=== PATIENT | female | born 1955 | race Caucasian/White ===

== ENCOUNTER 2016-04-22 17:35 | Observation (INO) | payer MEDICARE ==
--- NOTE | 2016-04-22 18:04 | ERPHSYRPT ---
- History of Present Illness Source: patient Physician History: Patient with long-standing history of severe COPD on chronic 3 L nasal cannula with increasing cough congestion and wheezing intermittent fever chills and thick productive sputum. Taking nebulizers at home without significant improvement.To The ER at this time for further evaluation and treatment.patient with 4 hospitalizations in the last 4 mo. for similar signs and symptoms Timing/Duration: today, worse Severity of Dyspnea-Max: severe Severity of Dyspnea-Current: severe Possible Cause: frequent episodes Modifying Factors: Improves With: albuterol nebulizer, coughing, deep breath, exertion, oxygen, rest Associated Symptoms: cough, chest pain/discomfort, fever, wheezing, weakness, painful breathing, productive cough Allergies/Adverse Reactions: bupropion HCl [From Wellbutrin] Allergy (Verified 04/22/16 17:56) Coconut Allergy (Verified 04/22/16 17:56) morphine Allergy (Verified 04/22/16 17:56) Penicillins Allergy (Verified 04/22/16 17:56) Home Medications: Albuterol/Ipratropium Mdi [Combivent Inhaler] 1 puff IH QID 12/29/12 [ History] Clonazepam 0.5 mg [Klonopin 0.5 MG] 2 mg PO BID 12/29/12 [History] Famotidine 20 mg [Pepcid 20 MG] 40 mg PO BID 12/29/12 [History] Fluticasone/Salmeterol Disc [Advair 250-50 Diskus 14 Dose] 1 puff IH BID 12/29/12 [History] Sertraline HCl 100 mg [Zoloft 100 MG] 200 mg PO QAM 12/17/13 [History] Clonazepam 0.5 mg [Klonopin 0.5 MG] 1 mg PO HS 09/16/14 [History] Isosorbide Mononitrate 30 mg [Imdur 30 MG] 30 mg PO DAILY 11/05/14 [History ] Cholecalciferol (Vitamin D3) [Vitamin D3] 50,000 units PO WEEKLY 01/16/15 [ History] Ezetimibe 10 mg [Zetia 10 MG] 10 mg PO DAILY 11/18/15 [History] Gabapentin 600 mg PO BID 01/16/15 [History] Tizanidine HCl 4 mg [Zanaflex 4 MG] 4 mg PO TID 01/16/15 [History] Oxycodone HCl/Acetaminophen [Percocet 10-325 mg Tablet] 10 - 325 each PO Q6HPRN PRN 07/16/15 [History] Budesonide 0.5 mg/2 ml [Pulmicort 0.5 mg/2 ml Respules] 0.5 mg IH BID [History] Levothyroxine Sodium 25 Mcg [Synthroid 25 Mcg] 25 mcg PO DAILY 10/17/15 [ History] Mometasone Furoate [Nasonex] 2 inh NS DAILY 10/17/15 [History] Quetiapine Fumarate [Seroquel] 100 mg PO BID 10/17/15 [History] Vits W-Ca,Fe,FA(<1Mg) [] 1 each PO DAILY 10/18/15 [History] Nitroglycerin 0.4 mg Tablet [Nitrostat 0.4 MG Tablet] 0.4 mg SL UD PRN [History] Gabapentin 2,400 mg PO HS 02/21/16 [History] Guaifenesin/Codeine Phos [Cheratussin AC Syrup] 10 ml PO Q6H PRN PRN 02/21/16 [ History] Prednisone 20 mg [Deltasone 20 mg] 20 mg PO DAILY 04/22/16 [History] Hx Tetanus, Diphtheria Vaccination/Date Given: No Hx Influenza Vaccination/Date Given: No Hx Pneumococcal Vaccination/Date Given: No - Review of Systems Constitutional: Fever, Chills, Fatigue, Lethargy, Malaise Eyes: No Symptoms Ears, Nose, & Throat: Nose Congestion Respiratory: Cough, Dyspnea, Dyspnea on Exertion (SCOTT), Wheezing Cardiac: Chest Pain (with deep breathing and coughing onl) Abdominal/Gastrointestinal: No Symptoms Genitourinary Symptoms: No Symptoms Musculoskeletal: No Symptoms Skin: No Symptoms Neurological: No Symptoms Psychological: Anxiety Endocrine: No Symptoms Hematologic/Lymphatic: No Symptoms Immunological/Allergic: No Symptoms All Other Systems: Reviewed and Negative - Past Medical History Pertinent Past Medical History: Yes Neurological History: Migraines ENT History: No Pertinent History Cardiac History: Congestive Heart Failure, High Cholesterol Respiratory History: COPD, Pneumonia Endocrine Medical History: Hypothyroidism Musculoskeletal History: Arthritis GI Medical History: GERD, Hernia, Polyps History: No Pertinent History Psycho-Social History: Anxiety, Depression Female Reproductive Disorders: Fibroids Other Medical History: 2 LEAKY VALVES. BORDERLINE PERSONALITY DISORDER, PTSD, manic depressive. bone deficiency - Past Surgical History Past Surgical History: Yes Neuro Surgical History: No Pertinent History Cardiac: No Pertinent History Respiratory: No Pertinent History Gastrointestinal: No Pertinent History Genitourinary: No Pertinent History Musculoskeletal: Other Female Surgical History: Section Other Surgical History: ARM SURGERY, 2 c-sections, EGD, Colonoscopy - Social History Smoking Status: Current every day smoker How long have you smoked: 43+years Exposure to second hand smoke: Yes Alcohol Use: Socially Drug Use: none Patient Lives Alone: No Significant Family History: no pertinent family hx - Female History Hx Now: No - Nursing Vital Signs Nursing Vital Signs: Initial Vital Signs Temperature 98.7 F Temperature Source Oral Pulse Rate 92 Respiratory Rate 18 Blood Pressure [Right Arm] 142/72 Pain Intensity 8 - Physical Exam General Appearance: moderate distress, alert, anxiety, obese Eye Exam: PERRL/EOMI Ears, Nose, Throat Exam: normal ENT inspection (nasal cannula in place) Neck Exam: normal inspection, non-tender, supple Respiratory Exam: respiratory distress, diminished breath sounds, accessory muscle use, prolonged expirations, crackles/rales, rhonchi, wheezing Cardiovascular/Chest Exam: normal heart sounds, regular rate/rhythm, normal peripheral pulses, No murmur Abdominal/Gastrointestinal Exam: soft, normal bowel sounds, No tenderness, No distention, No mass, No guarding, No rebound Rectal Exam: deferred Extremity Exam: non-tender, normal range of motion, no calf tenderness, no pedal edema, limited range of motion, No jennifer's sign Peripheral Pulses Exam: carotid (R): 2+, carotid (L): 2+ Neurologic Exam: alert, oriented x 3, cooperative Skin Exam: normal color, warm, dry, No rash Lymphatic Exam: No adenopathy SpO2 Interpretation: normal - Course Nursing assessment & vital signs reviewed: Yes EKG Interpreted by Me: RATE (104), Sinus Tach, NORMAL AXIS, NORMAL INTERVALS, NORMAL QRS, Non-specific ST Changes, Other (no significant changes to previous EKGs) - Radiology Exams Chest X-ray Interpretation: Interpreted by me, No Infiltrates, Other (COPD) Ordered Tests: Active Orders 24 hr Category Date Time Status Up With Assistance ROUTINE Activity 04/22/16 21:33 Active Admission/Status Order ROUTINE Care 04/22/16 21:33 Active Food Equipment Service Technician STAT Care 04/22/16 18:05 Active Code Status Order ROUTINE Care 04/22/16 21:33 Active EKG-ER Only STAT Care 04/22/16 17:53 Completed IV Care Q6H Care 04/22/16 21:33 Active IV Insertion STAT Care 04/22/16 17:53 Active Miscellaneous Nursing Order ROUTINE Care 04/22/16 21:33 Active Oxygen-ED Only NASAL CANNULA 3 lpm Care 04/22/16 18:15 Active Oxygen-ED Only VENTI-MASK 50% Care 04/22/16 18:05 Inactive Pulse Oximetry (ED) STAT Care 04/22/16 18:05 Active Rashaun Solorio, Apply ROUTINE Care 04/22/16 21:33 Active Telemetry Q4H Care 04/22/16 21:33 Active Weight,Daily 0600 Care 04/22/16 21:33 Active Cardiac Diet Diet 04/22/16 Dinner Active CHEST 1 VIEW (PORTABLE) Stat Exams 04/22/16 17:54 Completed ARTERIAL BLOOD GASES Urgent Lab 04/22/16 18:05 Completed BLOOD CULTURE Stat Lab 04/22/16 18:24 Ordered CBC AM.LAB Lab 04/23/16 05:08 Completed CBC W DIFF Stat Lab 04/22/16 18:00 Completed CMP AM.LAB Lab 04/23/16 05:08 Completed CMP Stat Lab 04/22/16 18:00 Completed Lactic Acid Urgent Lab 04/22/16 18:05 Completed MAGNESIUM AM.LAB Lab 04/23/16 05:08 Completed NT PRO BNP Stat Lab 04/22/16 18:00 Completed PROTIME WITH INR Stat Lab 04/22/16 18:00 Completed PTT Stat Lab 04/22/16 18:00 Completed TROPONIN Stat Lab 04/22/16 18:00 Completed Oxygen NASAL CANNULA 3 lpm RT 04/22/16 21:33 Active Respiratory Nebulizer Q4H RT 04/22/16 21:33 Active Respiratory Nebulizer STAT RT 04/22/16 18:06 Completed Respiratory Therapy Consult ROUTINE RT 04/22/16 21:33 Completed Transfer Order Routine Transfer 04/22/16 19:55 Completed Medication Summary Generic Name Dose Route Start Last Admin Trade Name Yordan PRN Reason Stop Dose Admin Albuterol/Ipratropium 3 ml 04/22/16 23:00 04/23/16 14:08 Duoneb 0.5-3 Mg/3 Ml Neb IH 05/22/16 22:59 3 ml Q4HRT VALERY Administration Budesonide 0.5 mg 04/23/16 07:00 04/23/16 07:02 Pulmicort 0.5 Mg/2 Ml Respules IH 05/23/16 06:59 0.5 mg BIDRT VALERY Administration Calcium Carbonate/Glycine 750 mg 04/23/16 14:16 Tums Ex 750 Mg PO 05/23/16 14:15 Q2HPRN PRN heart burn Clonazepam 2 mg 04/23/16 15:00 04/23/16 14:13 Klonopin PO 05/23/16 14:59 1 mg 0800,1500 VALERY Administration Clonazepam 1 mg 04/23/16 22:00 Klonopin 0.5 Mg PO 05/23/16 21:59 HS VALERY Doxycycline Hyclate 100 mg 04/22/16 22:00 04/23/16 08:36 Vibramycin 100 Mg PO 05/22/16 21:59 100 mg BID VALERY Administration Ezetimibe 10 mg 04/23/16 10:00 04/23/16 08:36 Zetia 10 Mg PO 05/23/16 09:59 10 mg DAILY VALERY Administration Ergocalciferol 50,000 unit 04/29/16 10:00 Vitamin D2 PO 05/29/16 09:59 We VALERY Famotidine 40 mg 04/22/16 23:35 04/23/16 08:36 Pepcid 20 Mg PO 05/22/16 23:34 40 mg BID VALERY Administration Fluticasone Propionate 0 gm 04/23/16 10:00 04/23/16 08:37 Flonase Nasal NS 05/23/16 09:59 16 gm DAILY VALERY Administration Gabapentin 2,400 mg 04/22/16 23:35 04/23/16 00:08 Neurontin 400 Mg PO 05/22/16 23:34 2,400 mg HS VALERY Administration Gabapentin 600 mg 04/23/16 08:00 04/23/16 14:13 Neurontin 300 Mg PO 05/23/16 07:59 600 mg 0800,1500 VALERY Administration Guaifenesin/Codeine Phosphate 10 ml 04/22/16 23:39 04/23/16 08:46 Robitussin Ac Syrup Unit Dose Cup PO 05/22/16 23:38 10 ml Q6HPRN PRN Administration COUGH Sodium Chloride 1,000 mls @ 50 mls/hr 04/22/16 18:15 04/22/16 18:11 Sodium Chloride 0.9% 1000 Ml IV 05/22/16 18:14 50 mls/hr .Q20H VALERY Administration Levofloxacin/Dextrose 100 mls @ 100 mls/hr 04/23/16 10:00 04/23/16 10:08 Levofloxacin 500mg/100ml D5w IV 05/23/16 09:59 100 mls/hr Q24H10 VALERY Administration Isosorbide Mononitrate 30 mg 04/23/16 10:00 04/23/16 08:36 Imdur 30 Mg PO 05/23/16 09:59 30 mg DAILY VALERY Administration Levothyroxine Sodium 25 mcg 04/23/16 10:00 04/23/16 08:36 Synthroid 25 Mcg PO 05/23/16 09:59 25 mcg DAILY VALERY Administration Methylprednisolone Sodium Succinate 60 mg 04/23/16 18:00 Solu-Medrol 125 Mg IV 05/23/16 17:59 Q12H VALERY Multivitamins 1 tab 04/23/16 10:00 04/23/16 08:37 Theragran Multivitamin PO 05/23/16 09:59 1 tab DAILY VALERY Administration Nitroglycerin 0.4 mg 04/23/16 07:50 Nitrostat 0.4 Mg Tablet SL 05/23/16 07:49 UD PRN CHEST PAIN Oxycodone/Acetaminophen 1 tab 04/22/16 23:35 04/23/16 10:18 Oxycodone-Acetaminophen 10-325 PO 04/27/16 23:34 1 tab Q6HPRN PRN Administration PAIN Quetiapine Fumarate 100 mg 04/22/16 23:35 04/23/16 08:36 Seroquel 100 Mg PO 05/22/16 23:34 100 mg BID VALERY Administration Fluticasone/Salmeterol 2 puff 04/23/16 07:00 04/23/16 07:02 Advair Hfa 115/21 Common Canister* IH 05/23/16 06:59 2 puff BIDRT VALERY Administration Sertraline HCl 200 mg 04/23/16 10:00 04/23/16 08:36 Zoloft 50 Mg Tablet PO 05/23/16 09:59 200 mg QAM VALERY Administration Tizanidine HCl 4 mg 04/22/16 23:40 04/23/16 14:13 Zanaflex 4 Mg PO 05/22/16 23:39 4 mg TID VALERY Administration Discontinued Medications Generic Name Dose Route Start Last Admin Trade Name Freq PRN Reason Stop Dose Admin Albuterol/Ipratropium 3 ml 04/22/16 18:05 04/22/16 18:55 Duoneb 0.5-3 Mg/3 Ml Neb IH 04/22/16 18:06 3 ml STAT ONE Administration Albuterol/Ipratropium Confirm 04/22/16 18:45 Duoneb 0.5-3 Mg/3 Ml Neb Administered 04/22/16 18:46 Dose 3 ml IH .STK-MED ONE Budesonide Confirm 04/23/16 06:36 Pulmicort 0.5 Mg/2 Ml Respules Administered 04/23/16 06:37 Dose 0.5 mg IH .STK-MED ONE Clonazepam 1 mg 04/22/16 23:30 04/23/16 00:14 Klonopin 0.5 Mg PO 05/22/16 23:29 Not Given HS VALERY Clonazepam Confirm 04/22/16 23:45 Klonopin 0.5 Mg Administered 04/22/16 23:46 Dose 1 mg .ROUTE .STK-MED ONE Clonazepam 2 mg 04/23/16 08:00 04/23/16 08:36 Klonopin PO 05/23/16 07:59 2 mg BIDWM VALERY Administration Clonazepam 1 mg 04/23/16 12:00 04/23/16 12:47 Klonopin 0.5 Mg PO 04/23/16 15:00 1 mg NOON VALERY Administration Hydrocortisone Sodium Succinate 80 mg 04/23/16 10:00 Solu-Cortef 100mg IV 05/23/16 09:59 Q12H VALERY Sodium Chloride Confirm 04/22/16 18:09 Sodium Chloride 0.9% 1000 Ml Administered 04/22/16 18:10 Dose 1,000 mls @ ud .ROUTE .STK-MED ONE Methylprednisolone Sodium Succinate 125 mg 04/22/16 18:05 04/22/16 18:11 Solu-Medrol 125 Mg IV 04/22/16 18:06 125 mg STAT ONE Administration Methylprednisolone Sodium Succinate Confirm 04/22/16 18:09 Solu-Medrol 125 Mg Administered 04/22/16 18:10 Dose 125 mg .ROUTE .STK-MED ONE Methylprednisolone Sodium Succinate 80 mg 04/23/16 00:00 04/23/16 06:49 Solu-Medrol 125 Mg IV 05/23/16 00:00 80 mg Q6HT VALERY Administration Prednisone 20 mg 04/23/16 10:00 04/23/16 08:36 Deltasone 20 Mg PO 05/23/16 09:59 20 mg DAILY VALERY Administration Lab/Rad Data: Laboratory Result Diagrams 04/22/16 18:00 04/22/16 18:00 Laboratory Results 04/22/16 04/22/16 04/22/16 Range/Units 18:58 18:24 18:05 WBC (4.0-10.5) K/mm3 RBC (4.1-5.4) M/mm3 Hgb (12.0-16.0) gm/dl Hct (35-47) % MCV (78-100) fl MCH (26-32) pg MCHC (32-36) g/dl RDW (11.5-14.0) % Plt Count (150-450) K/mm3 MPV (6-9.5) fl Gran % (36.0-66.0) % Lymphocytes % (24.0-44.0) % Monocytes % (0.0-12.0) % Eosinophils % (0.00-5.0) % Basophils % (0.0-0.4) % Basophils # (0-0.4) INR (0.8-3.0) PTT (25.3-37.0) SECONDS Puncture Site RIGHT BRACHIAL pCO2 41 (35-45) mmHg pO2 84 (75-100) mmHg Base Excess 4.9 H (-2.0-2.0) O2 Saturation 92.2 L (94-100) g/dF ABG pH 7.46 H (7.35-7.45) ABG HCO3 29.2 H* (22-28) ABG O2 Sat (Measured) 95.7 (95-100) % Get Test NO VBG pH Cancelled VBG pCO2 at Pat Temp Cancelled VBG pO2 at Pat Temp Cancelled VBG HCO3 Cancelled VBG O2 Sat (Paulo) Cancelled VBG Base Excess Cancelled VBG Hemoglobin Cancelled VBG Carboxyhemoglobin Cancelled A-a Gradient 93 a/A Ratio 0.47 Hemoglobin 8.8 Carboxyhemoglobin 3.4 (0.0-6.9) % THgb Methemoglobin 0.3 L (1.4-1.5) % POC Potassium Cancelled Temperature 37.0 C POC O2 Flow Rate 32 % Sodium (136-145) mEq/L Potassium 4.2 (3.5-5.1) mEq/L Chloride (98-107) mEq/L Carbon Dioxide (21-32) mEq/L Anion Gap (5-15) MEQ/L BUN (9-20) mg/dL Creatinine (0.55-1.30) mg/dl Estimated GFR ML/MIN Glucose (70-110) MG/DL Lactic Acid 1.0 (0.4-2.0) Calcium (8.5-10.1) mg/dL Total Bilirubin (0.2-1.0) mg/dL AST (15-37) U/L ALT (12-78) U/L Alkaline Phosphatase (46-116) U/L Troponin I (0.000-0.056) ng/ml NT-Pro-B Natriuret Pep (0-125) pg/ml Serum Total Protein (6.4-8.2) gm/dL Albumin (3.4-5.0) g/dL Influenza Type A Ag NEGATIVE (NEGATIVE) Influenza Type B Ag NEGATIVE (NEGATIVE) RSV (PCR) NEGATIVE (Negative) 04/22/16 04/22/16 04/22/16 Range/Units 18:00 18:00 18:00 WBC 9.9 (4.0-10.5) K/mm3 RBC 3.58 L (4.1-5.4) M/mm3 Hgb 9.0 L (12.0-16.0) gm/dl Hct 30.6 L (35-47) % MCV 85.5 (78-100) fl MCH 25.1 L (26-32) pg MCHC 29.4 L (32-36) g/dl RDW 17.2 H (11.5-14.0) % Plt Count 539 H (150-450) K/mm3 MPV 9.7 H (6-9.5) fl Gran % 83.2 H (36.0-66.0) % Lymphocytes % 13.0 L (24.0-44.0) % Monocytes % 3.4 (0.0-12.0) % Eosinophils % 0.2 (0.00-5.0) % Basophils % 0.2 (0.0-0.4) % Basophils # 0.02 (0-0.4) INR 0.94 (0.8-3.0) PTT 30.1 (25.3-37.0) SECONDS Puncture Site pCO2 (35-45) mmHg pO2 (75-100) mmHg Base Excess (-2.0-2.0) O2 Saturation (94-100) g/dF ABG pH (7.35-7.45) ABG HCO3 (22-28) ABG O2 Sat (Measured) (95-100) % Get Test VBG pH VBG pCO2 at Pat Temp VBG pO2 at Pat Temp VBG HCO3 VBG O2 Sat (Paulo) VBG Base Excess VBG Hemoglobin VBG Carboxyhemoglobin A-a Gradient a/A Ratio Hemoglobin Carboxyhemoglobin (0.0-6.9) % THgb Methemoglobin (1.4-1.5) % POC Potassium Temperature C POC O2 Flow Rate % Sodium 142 (136-145) mEq/L Potassium 3.9 (3.5-5.1) mEq/L Chloride 107 (98-107) mEq/L Carbon Dioxide 28.7 (21-32) mEq/L Anion Gap 10.3 (5-15) MEQ/L BUN 10 (9-20) mg/dL Creatinine 0.94 (0.55-1.30) mg/dl Estimated GFR > 60 ML/MIN Glucose 128 H (70-110) MG/DL Lactic Acid (0.4-2.0) Calcium 8.6 (8.5-10.1) mg/dL Total Bilirubin < 0.1 L (0.2-1.0) mg/dL AST 9 L (15-37) U/L ALT 16 (12-78) U/L Alkaline Phosphatase 64 (46-116) U/L Troponin I < 0.017 (0.000-0.056) ng/ml NT-Pro-B Natriuret Pep 113 (0-125) pg/ml Serum Total Protein 6.9 (6.4-8.2) gm/dL Albumin 3.3 L (3.4-5.0) g/dL Influenza Type A Ag (NEGATIVE) Influenza Type B Ag (NEGATIVE) RSV (PCR) (Negative) - Progress Progress: improved, re-examined Air Movement: poor Progress Note: 04/22/16 19:51Patient only mildly improved after intravenous steroids nebulizer treatment. Chest x-ray with no new acute pulmonary disease shows chronic COPD and air trapping. Venous blood gases were noncontributory and remainder of the lab showed no significant abnormalities. Because of the patient's ongoing severe shortness of breath case was discussed with Dr. Mar and he accepted patient for full admission for exacerbation COPD. This is in agreement to the patient. Blood Culture(s) Obtained: Yes Antibiotics given: No Discussed with Dr.: Garrison Counseled pt/family regarding: lab results, diagnosis, rad results - Departure Time of Disposition: 19:53 Departure Disposition: Observation Clinical Impression: Chronic bronchitis with acute exacerbation Condition: Serious Critical Care Time: No
[2016-04-22] MEDS ORDERED: solu-MEDROL 125 MG IV ONE (18:05)
[2016-04-22] MEDS ORDERED: DUONEB 0.5-3 MG/3 ml Neb IH ONE ×2 (18:05→18:45)
[2016-04-22] MEDS ORDERED: solu-MEDROL 125 MG ONE (18:09)
[2016-04-22] MEDS ORDERED: Sodium Chloride 0.9% 1000 ML 1,000 ML ONE (18:09)
[2016-04-22] MEDS: Sodium Chloride 0.9% 1000 ML 1,000 ML IV SCH (18:11)
[2016-04-22 18:23] LABS: BASOPHIL % 0.2 % (0.0-0.4); Eosinophil % 0.2 % (0.00-5.0); Granulocytes % 83.2 % (36.0-66.0); Mean Cell Volume 85.5 fl (78-100); Mean Corpuscular Hemoglobin 25.1 pg (26-32); Mean Platelet Volume 9.7 fl (6-9.5); Monocytes % 3.4 % (0.0-12.0); Platelet Count 539 K/mm3 (150-450); Red Blood Count 3.58 M/mm3 (4.1-5.4); Red Cell Distribution Width 17.2 % (11.5-14.0); White Blood Count 9.9 K/mm3 (4.0-10.5)
[2016-04-22 18:33] LABS: INR 0.94 (0.8-3.0); PROTIME 10.5 SECONDS (9.95-12.35)
[2016-04-22 18:35] LABS: PTT 30.1 SECONDS (25.3-37.0)
[2016-04-22 18:51] LABS: ALBUMIN 3.3 g/dL (3.4-5.0); ALKALINE PHOSPHATASE 64 U/L (46-116); ANION GAP 10.3 MEQ/L (5-15); BLOOD UREA NITROGEN 10 mg/dL (9-20); CHLORIDE 107 mEq/L (98-107); Carbon Dioxide 28.7 mEq/L (21-32); Glucose 128 MG/DL (70-110); Potassium 3.9 mEq/L (3.5-5.1); SGOT/AST 9 U/L (15-37); SGPT/ALT 16 U/L (12-78); SODIUM 142 mEq/L (136-145); Total Protein 6.9 gm/dL (6.4-8.2)
[2016-04-22 18:53] LABS: BILIRUBIN,TOTAL < 0.1 mg/dL (0.2-1.0); TROPONIN < 0.017 ng/ml (0.000-0.056)
[2016-04-22 20:19] LABS: A-aADO2 93; ARTERIAL BLD GAS O2 SATURATION 95.7 % (95-100); ARTERIAL BLOOD GAS BASE EXCESS 4.9 (-2.0-2.0); ARTERIAL BLOOD GAS FIO2 32 %; ARTERIAL BLOOD GAS PO2 84 mmHg (75-100); ARTERIAL BLOOD GAS pH 7.46 (7.35-7.45)
[2016-04-22 20:20] LABS: ALLEN TEST OK? NO
[2016-04-22] MEDS: DUONEB 0.5-3 MG/3 ml Neb IH SCH (23:09)
[2016-04-22] MEDS ORDERED: Klonopin 0.5 MG PO SCH (23:30)
[2016-04-22] MEDS ORDERED: Klonopin 0.5 MG ONE (23:45)
[2016-04-23] MEDS: Vibramycin 100 MG PO SCH ×3 (00:08→22:27)
[2016-04-23] MEDS: Pepcid 20 MG PO SCH ×3 (00:08→22:27)
[2016-04-23] MEDS: Neurontin 400 MG PO SCH ×2 (00:08→22:26)
[2016-04-23] MEDS: Seroquel 100 MG PO SCH ×3 (00:17→22:27)
[2016-04-23] MEDS: Zanaflex 4 MG PO SCH ×4 (00:18→22:27)
[2016-04-23] MEDS: solu-MEDROL 125 MG IV SCH ×3 (00:56→17:31)
[2016-04-23] MEDS: DUONEB 0.5-3 MG/3 ml Neb IH SCH ×6 (03:43→23:06)
[2016-04-23 05:43] LABS: Mean Cell Volume 86.4 fl (78-100); Mean Corpuscular Hemoglobin 25.4 pg (26-32); Mean Platelet Volume 9.6 fl (6-9.5); Platelet Count 481 K/mm3 (150-450); Red Blood Count 3.46 M/mm3 (4.1-5.4); Red Cell Distribution Width 17.1 % (11.5-14.0)
[2016-04-23 06:12] LABS: ALBUMIN 3.2 g/dL (3.4-5.0); ALKALINE PHOSPHATASE 60 U/L (46-116); ANION GAP 12.4 MEQ/L (5-15); BLOOD UREA NITROGEN 10 mg/dL (9-20); CHLORIDE 107 mEq/L (98-107); Carbon Dioxide 29.3 mEq/L (21-32); Glucose 128 MG/DL (70-110); Potassium 4.5 mEq/L (3.5-5.1); SGOT/AST 8 U/L (15-37); SGPT/ALT 16 U/L (12-78); SODIUM 144 mEq/L (136-145); Total Protein 6.8 gm/dL (6.4-8.2)
[2016-04-23 06:22] LABS: MAGNESIUM 2.2 mg/dL (1.8-2.4)
[2016-04-23 06:29] LABS: BILIRUBIN,TOTAL < 0.1 mg/dL (0.2-1.0)
[2016-04-23] MEDS ORDERED: PULMICORT 0.5 MG/2 ML RESPULES IH ONE (06:36)
[2016-04-23] MEDS: PULMICORT 0.5 MG/2 ML RESPULES IH SCH ×2 (07:02→18:51)
[2016-04-23] MEDS: Advair Hfa 115/21 Common canister IH SCH ×2 (07:02→18:51)
[2016-04-23] MEDS ORDERED: Nitrostat 0.4 MG Tablet SL PRN (07:50)
--- NOTE | 2016-04-23 07:57 | PCM.HP ---
History of Present Illness - Chief Complaint Chief Complaint: Shortness of Breath for 4-5 days History of Present Illness: is a 60 year old female.Patient with long-standing history of severe COPD on chronic 3 L nasal cannula with increasing cough congestion and wheezing intermittent fever chills and thick productive sputum. Taking nebulizers at home without significant improvement.To The ER at this time for further evaluation and treatment.patient with 4 hospitalizations in the last 4 mo. for similar signs and symptoms - Review of Systems Constitutional: No Fever, No Chills Eyes: No Symptoms Ears, Nose, & Throat: No Symptoms Respiratory: Cough, Orthopnea, Short Of Breath, Wheezing Cardiac: No Chest Pain, No Edema, No Syncope Abdominal/Gastrointestinal: No Abdominal Pain, No Nausea, No Vomiting, No Diarrhea Genitourinary Symptoms: No Dysuria Musculoskeletal: No Back Pain, No Neck Pain Skin: No Rash Neurological: No Dizziness, No Focal Weakness, No Sensory Changes Psychological: No Symptoms Endocrine: No Symptoms Hematologic/Lymphatic: No Symptoms Immunological/Allergic: No Symptoms Medications & Allergies Home Medications: Home Medication List Albuterol/Ipratropium Mdi [Combivent Inhaler] 1 puff IH QID 12/29/12 [ History Confirmed 04/22/16] Clonazepam 0.5 mg [Klonopin 0.5 MG] 2 mg PO BID 12/29/12 [History Confirmed 04/22/16] Famotidine 20 mg [Pepcid 20 MG] 40 mg PO BID 12/29/12 [History Confirmed 04/22/16] Fluticasone/Salmeterol Disc [Advair 250-50 Diskus 14 Dose] 1 puff IH BID 12/29/12 [History Confirmed 04/22/16] Sertraline HCl 100 mg [Zoloft 100 MG] 200 mg PO QAM 12/17/13 [History Confirmed 04/22/16] Clonazepam 0.5 mg [Klonopin 0.5 MG] 1 mg PO HS 09/16/14 [History Confirmed 04/22/16] Isosorbide Mononitrate 30 mg [Imdur 30 MG] 30 mg PO DAILY 11/05/14 [ History Confirmed 04/22/16] Cholecalciferol (Vitamin D3) [Vitamin D3] 50,000 units PO WEEKLY 01/16/15 [ History Confirmed 04/22/16] Ezetimibe 10 mg [Zetia 10 MG] 10 mg PO DAILY 01/16/15 [History Confirmed ] Gabapentin 600 mg PO BID 01/16/15 [History Confirmed 04/22/16] Tizanidine HCl 4 mg [Zanaflex 4 MG] 4 mg PO TID 01/16/15 [History Confirmed 04/22/16] Oxycodone HCl/Acetaminophen [Percocet 10-325 mg Tablet] 10 - 325 each PO Q6HPRN PRN 07/16/15 [History Confirmed 04/22/16] Budesonide 0.5 mg/2 ml [Pulmicort 0.5 mg/2 ml Respules] 0.5 mg IH BID [History Confirmed 04/22/16] Levothyroxine Sodium 25 Mcg [Synthroid 25 Mcg] 25 mcg PO DAILY 10/17/15 [ History Confirmed 04/22/16] Mometasone Furoate [Nasonex] 2 inh NS DAILY 10/17/15 [History Confirmed 04/22/16 ] Quetiapine Fumarate [Seroquel] 100 mg PO BID 10/17/15 [History Confirmed ] Vits W-Ca,Fe,FA(<1Mg) [] 1 each PO DAILY 10/18/15 [History Confirmed 04/22/16] Nitroglycerin 0.4 mg Tablet [Nitrostat 0.4 MG Tablet] 0.4 mg SL UD PRN [History Confirmed 04/22/16] Gabapentin 2,400 mg PO HS 02/21/16 [History Confirmed 04/22/16] Guaifenesin/Codeine Phos [Cheratussin AC Syrup] 10 ml PO Q6H PRN PRN 02/21/16 [ History Confirmed 04/22/16] Prednisone 20 mg [Deltasone 20 mg] 20 mg PO DAILY 04/22/16 [History Confirmed 04/22/16] Allergies/Adverse Reactions: Allergies Allergy/AdvReac Type Severity Reaction Status Date / Time bupropion HCl Allergy Verified 04/22/16 17:56 [From Wellbutrin] Coconut Allergy Verified 04/22/16 17:56 morphine Allergy Verified 04/22/16 17:56 Penicillins Allergy Verified 04/22/16 17:56 - Past Medical History Past Medical History: Yes Neurological History: Migraines ENT History: No Pertinent History Cardiac History: Congestive Heart Failure, High Cholesterol Respiratory History: COPD, Pneumonia Endocrine Medical History: Hypothyroidism Musculoskelatal History: Arthritis GI Medical History: GERD, Hernia, Polyps History: No Pertinent History Pyscho-Social History: Anxiety, Depression Reproductive Disorders: Fibroids Comment: 2 LEAKY VALVES. BORDERLINE PERSONALITY DISORDER, PTSD, manic depressive. bone deficiency - Female History Are you now?: No - Past Surgical History Past Surgical History: Yes Neuro Surgical History: No Pertinent History Cardiac History: No Pertinent History Respiratory Surgery: No Pertinent History GI Surgical History: No Pertinent History Genitourinary Surgical Hx: No Pertinent History Musculskeletal Surgical Hx: Other Female Surgical History: Section Other Surgical History: ARM SURGERY, 2 c-sections, EGD, Colonoscopy - Social History Smoking Status: Current every day smoker How long have you smoked: 43+years Exposure to second hand smoke: Yes Alcohol: None Drug Use: none Significant Family History: no pertinent family hx - Physical Exam Vital Signs: Vital Signs - 24 hr Temp Pulse Resp BP Pulse Ox 04/23/16 07:06 84 22 98 04/23/16 04:00 97.8 F 77 24 157/77 99 04/23/16 03:43 77 24 99 04/22/16 23:58 98.6 F 87 18 109/63 97 04/22/16 23:09 87 18 97 04/22/16 21:19 99.1 F 94 H 22 159/77 94 L 04/22/16 19:20 92 H 18 142/72 95 04/22/16 18:55 90 24 99 04/22/16 18:13 99 04/22/16 17:46 98.7 F 104 H 30 H 138/74 99 Oxygen-Last 24 hours O2 Percentage 4 Liters = 36% O2 Percentage 4 Liters = 36% O2 Percentage 3 Liters = 32% O2 Percentage 3 Liters = 32% O2 Percentage 3 Liters = 32% O2 Percentage 3 Liters = 32% General Appearance: no apparent distress, alert Neurologic Exam: alert, oriented x 3, cooperative, normal mood/affect, nml cerebellar function, nml station & gait, sensation nml, No motor deficits Eye Exam: PERRL/EOMI, eyes nml inspection Ears, Nose, Throat Exam: normal ENT inspection, TMs normal, pharynx normal, moist mucous membranes Neck Exam: normal inspection, non-tender, supple, full range of motion Respiratory Exam: diminished breath sounds, crackles/rales, rhonchi, wheezing, No respiratory distress Cardiovascular Exam: regular rate/rhythm, normal heart sounds, normal peripheral pulses Gastrointestinal/Abdomen Exam: soft, normal bowel sounds, No tenderness, No mass Back Exam: normal inspection, normal range of motion, No CVA tenderness, No vertebral tenderness Extremity Exam: normal inspection, normal range of motion, pelvis stable Skin Exam: normal color, warm, dry, No rash Lymphatic Exam: No adenopathy Results - Labs Lab/Micro Results: Lab Results-Last 24 Hours 04/23/16 04/23/16 Range/Units 05:08 05:08 WBC 8.0 (4.0-10.5) K/mm3 RBC 3.46 L (4.1-5.4) M/mm3 Hgb 8.8 L (12.0-16.0) gm/dl Hct 29.9 L (35-47) % MCV 86.4 (78-100) fl MCH 25.4 L (26-32) pg MCHC 29.4 L (32-36) g/dl RDW 17.1 H (11.5-14.0) % Plt Count 481 H (150-450) K/mm3 MPV 9.6 H (6-9.5) fl Sodium 144 (136-145) mEq/L Potassium 4.5 (3.5-5.1) mEq/L Chloride 107 (98-107) mEq/L Carbon Dioxide 29.3 (21-32) mEq/L Anion Gap 12.4 (5-15) MEQ/L BUN 10 (9-20) mg/dL Creatinine 0.86 (0.55-1.30) mg/dl Estimated GFR > 60 ML/MIN Glucose 128 H (70-110) MG/DL Calcium 8.7 (8.5-10.1) mg/dL Magnesium 2.2 (1.8-2.4) mg/dL Total Bilirubin < 0.1 L (0.2-1.0) mg/dL AST 8 L (15-37) U/L ALT 16 (12-78) U/L Alkaline Phosphatase 60 (46-116) U/L Serum Total Protein 6.8 (6.4-8.2) gm/dL Albumin 3.2 L (3.4-5.0) g/dL - Other Procedures and Tests Respiratory Therapy 04/23/16 07:00 Respiratory MDI BID Respiratory Nebulizer BID Assessment/Plan (1) Chronic bronchitis with acute exacerbation Current Visit: Yes Status: Acute Assessment & Plan: Chief Complaint Diagnosis Shortness of Breath for 4-5 days Allergies Allergy/AdvReac Type Severity Reaction Status Date / Time bupropion HCl Allergy Verified 04/22/16 17:56 [From Wellbutrin] Coconut Allergy Verified 04/22/16 17:56 morphine Allergy Verified 04/22/16 17:56 Penicillins Allergy Verified 04/22/16 17:56 Vital Signs (Last 24 hours) Temp Pulse Resp BP Pulse Ox 04/23/16 16:00 98.9 F 95 H 24 122/66 99 04/23/16 14:56 99 H 16 97 04/23/16 11:01 98.6 F 102 H 20 120/58 98 04/23/16 10:33 102 H 20 98 04/23/16 08:00 97.7 F 87 20 142/78 99 04/23/16 07:06 84 22 98 04/23/16 04:00 97.8 F 77 24 157/77 99 04/23/16 03:43 77 24 99 04/22/16 23:58 98.6 F 87 18 109/63 97 04/22/16 23:09 87 18 97 04/22/16 21:19 99.1 F 94 H 22 159/77 94 L 04/22/16 19:20 92 H 18 142/72 95 04/22/16 18:55 90 24 99 04/22/16 18:13 99 04/22/16 17:46 98.7 F 104 H 30 H 138/74 99 Home Medications Medication Instructions Recorded Confirmed Last Taken Type Prednisone 20 mg [Deltasone 20 20 mg PO DAILY 04/22/16 04/22/16 04/22/16 08: 30 History mg] Current Medications Generic Name Dose Route Start Last Admin Trade Name Freq PRN Reason Stop Dose Admin Albuterol/Ipratropium 3 ml 04/22/16 23:00 04/23/16 14:08 Duoneb 0.5-3 Mg/3 Ml Neb IH 05/22/16 22:59 3 ml Q4HRT VALERY Administration Budesonide 0.5 mg 04/23/16 07:00 04/23/16 07:02 Pulmicort 0.5 Mg/2 Ml Respules IH 05/23/16 06:59 0.5 mg BIDRT VALERY Administration Calcium Carbonate/Glycine 750 mg 04/23/16 14:16 04/23/16 17:37 Tums Ex 750 Mg PO 05/23/16 14:15 750 mg Q2HPRN PRN Administration heart burn Clonazepam 2 mg 04/23/16 15:00 04/23/16 14:13 Klonopin PO 05/23/16 14:59 1 mg 0800,1500 VALERY Administration Clonazepam 1 mg 04/23/16 22:00 Klonopin 0.5 Mg PO 05/23/16 21:59 HS VALERY Doxycycline Hyclate 100 mg 04/22/16 22:00 04/23/16 08:36 Vibramycin 100 Mg PO 05/22/16 21:59 100 mg BID VALERY Administration Ezetimibe 10 mg 04/23/16 10:00 04/23/16 08:36 Zetia 10 Mg PO 05/23/16 09:59 10 mg DAILY VALERY Administration Ergocalciferol 50,000 unit 04/29/16 10:00 Vitamin D2 PO 05/29/16 09:59 We VALERY Famotidine 40 mg 04/22/16 23:35 04/23/16 08:36 Pepcid 20 Mg PO 05/22/16 23:34 40 mg BID VALERY Administration Fluticasone Propionate 0 gm 04/23/16 10:00 04/23/16 08:37 Flonase Nasal NS 05/23/16 09:59 16 gm DAILY VALERY Administration Gabapentin 2,400 mg 04/22/16 23:35 04/23/16 00:08 Neurontin 400 Mg PO 05/22/16 23:34 2,400 mg HS VALERY Administration Gabapentin 600 mg 04/23/16 08:00 04/23/16 14:13 Neurontin 300 Mg PO 05/23/16 07:59 600 mg 0800,1500 VALERY Administration Guaifenesin/Codeine Phosphate 10 ml 04/22/16 23:39 04/23/16 15:48 Robitussin Ac Syrup Unit Dose Cup PO 05/22/16 23:38 10 ml Q6HPRN PRN Administration COUGH Sodium Chloride 1,000 mls @ 50 mls/hr 04/22/16 18:15 04/23/16 17:34 Sodium Chloride 0.9% 1000 Ml IV 05/22/16 18:14 50 mls/hr .Q20H VALERY Administration Levofloxacin/Dextrose 100 mls @ 100 mls/hr 04/23/16 10:00 04/23/16 10:08 Levofloxacin 500mg/100ml D5w IV 05/23/16 09:59 100 mls/hr Q24H10 VALERY Administration Isosorbide Mononitrate 30 mg 04/23/16 10:00 04/23/16 08:36 Imdur 30 Mg PO 05/23/16 09:59 30 mg DAILY VALERY Administration Levothyroxine Sodium 25 mcg 04/23/16 10:00 04/23/16 08:36 Synthroid 25 Mcg PO 05/23/16 09:59 25 mcg DAILY VALERY Administration Methylprednisolone Sodium Succinate 60 mg 04/23/16 18:00 04/23/16 17:31 Solu-Medrol 125 Mg IV 05/23/16 17:59 60 mg Q12H VALERY Administration Multivitamins 1 tab 04/23/16 10:00 04/23/16 08:37 Theragran Multivitamin PO 05/23/16 09:59 1 tab DAILY VALERY Administration Nitroglycerin 0.4 mg 04/23/16 07:50 Nitrostat 0.4 Mg Tablet SL 05/23/16 07:49 UD PRN CHEST PAIN Oxycodone/Acetaminophen 1 tab 04/22/16 23:35 04/23/16 17:34 Oxycodone-Acetaminophen 10-325 PO 04/27/16 23:34 1 tab Q6HPRN PRN Administration PAIN Quetiapine Fumarate 100 mg 04/22/16 23:35 04/23/16 08:36 Seroquel 100 Mg PO 05/22/16 23:34 100 mg BID VALERY Administration Fluticasone/Salmeterol 2 puff 04/23/16 07:00 04/23/16 07:02 Advair Hfa 115/21 Common Canister* IH 05/23/16 06:59 2 puff BIDRT VALERY Administration Sertraline HCl 200 mg 04/23/16 10:00 04/23/16 08:36 Zoloft 50 Mg Tablet PO 05/23/16 09:59 200 mg QAM VALERY Administration Tizanidine HCl 4 mg 04/22/16 23:40 04/23/16 14:13 Zanaflex 4 Mg PO 05/22/16 23:39 4 mg TID VALERY Administration Discontinued Medications Generic Name Dose Route Start Last Admin Trade Name Freq PRN Reason Stop Dose Admin Albuterol/Ipratropium 3 ml 04/22/16 18:05 04/22/16 18:55 Duoneb 0.5-3 Mg/3 Ml Neb IH 04/22/16 18:06 3 ml STAT ONE Administration Albuterol/Ipratropium Confirm 04/22/16 18:45 Duoneb 0.5-3 Mg/3 Ml Neb Administered 04/22/16 18:46 Dose 3 ml IH .STK-MED ONE Budesonide Confirm 04/23/16 06:36 Pulmicort 0.5 Mg/2 Ml Respules Administered 04/23/16 06:37 Dose 0.5 mg IH .STK-MED ONE Clonazepam 1 mg 04/22/16 23:30 04/23/16 00:14 Klonopin 0.5 Mg PO 05/22/16 23:29 Not Given HS VALERY Clonazepam Confirm 04/22/16 23:45 Klonopin 0.5 Mg Administered 04/22/16 23:46 Dose 1 mg .ROUTE .STK-MED ONE Clonazepam 2 mg 04/23/16 08:00 04/23/16 08:36 Klonopin PO 05/23/16 07:59 2 mg BIDWM VALERY Administration Clonazepam 1 mg 04/23/16 12:00 04/23/16 12:47 Klonopin 0.5 Mg PO 04/23/16 15:00 1 mg NOON VALERY Administration Hydrocortisone Sodium Succinate 80 mg 04/23/16 10:00 Solu-Cortef 100mg IV 05/23/16 09:59 Q12H VALERY Sodium Chloride Confirm 04/22/16 18:09 Sodium Chloride 0.9% 1000 Ml Administered 04/22/16 18:10 Dose 1,000 mls @ ud .ROUTE .STK-MED ONE Methylprednisolone Sodium Succinate 125 mg 04/22/16 18:05 04/22/16 18:11 Solu-Medrol 125 Mg IV 04/22/16 18:06 125 mg STAT ONE Administration Methylprednisolone Sodium Succinate Confirm 04/22/16 18:09 Solu-Medrol 125 Mg Administered 04/22/16 18:10 Dose 125 mg .ROUTE .STK-MED ONE Methylprednisolone Sodium Succinate 80 mg 04/23/16 00:00 04/23/16 06:49 Solu-Medrol 125 Mg IV 05/23/16 00:00 80 mg Q6HT VALERY Administration Prednisone 20 mg 04/23/16 10:00 04/23/16 08:36 Deltasone 20 Mg PO 05/23/16 09:59 20 mg DAILY VALERY Administration Intake & Output (Last 24 hours) 04/21/16 04/22/16 04/23/16 04/24/16 11:59 11:59 11:59 11:59 Intake Total 1262 600 Balance 1262 600 Weight 81.919 kg Microbiology Results (Last 24 hours) 04/22/16 18:24 Blood - Pending 04/22/16 18:24 Blood Blood Culture - Pending 04/22/16 18:05 Blood - Pending 04/22/16 18:05 Blood Blood Culture - Pending Laboratory Results (Last 24 hours) 04/23/16 04/23/16 04/22/16 05:08 05:08 18:58 WBC 8.0 RBC 3.46 L Hgb 8.8 L Hct 29.9 L MCV 86.4 MCH 25.4 L MCHC 29.4 L RDW 17.1 H Plt Count 481 H MPV 9.6 H Gran % Lymphocytes % Monocytes % Eosinophils % Basophils % Basophils # INR PTT Puncture Site pCO2 pO2 Base Excess O2 Saturation ABG pH ABG HCO3 ABG O2 Sat (Measured) Get Test VBG pH Cancelled VBG pCO2 at Pat Temp Cancelled VBG pO2 at Pat Temp Cancelled VBG HCO3 Cancelled VBG O2 Sat (Paulo) Cancelled VBG Base Excess Cancelled VBG Hemoglobin Cancelled VBG Carboxyhemoglobin Cancelled A-a Gradient a/A Ratio Hemoglobin Carboxyhemoglobin Methemoglobin POC Potassium Cancelled Temperature POC O2 Flow Rate Sodium 144 Potassium 4.5 Chloride 107 Carbon Dioxide 29.3 Anion Gap 12.4 BUN 10 Creatinine 0.86 Estimated GFR > 60 Glucose 128 H Lactic Acid Calcium 8.7 Magnesium 2.2 Total Bilirubin < 0.1 L AST 8 L ALT 16 Alkaline Phosphatase 60 Troponin I NT-Pro-B Natriuret Pep Serum Total Protein 6.8 Albumin 3.2 L Influenza Type A Ag Influenza Type B Ag RSV (PCR) 04/22/16 04/22/16 04/22/16 18:24 18:05 18:00 WBC RBC Hgb Hct MCV MCH MCHC RDW Plt Count MPV Gran % Lymphocytes % Monocytes % Eosinophils % Basophils % Basophils # INR 0.94 PTT 30.1 Puncture Site RIGHT BRACHIAL pCO2 41 pO2 84 Base Excess 4.9 H O2 Saturation 92.2 L ABG pH 7.46 H ABG HCO3 29.2 H* ABG O2 Sat (Measured) 95.7 Get Test NO VBG pH VBG pCO2 at Pat Temp VBG pO2 at Pat Temp VBG HCO3 VBG O2 Sat (Paulo) VBG Base Excess VBG Hemoglobin VBG Carboxyhemoglobin A-a Gradient 93 a/A Ratio 0.47 Hemoglobin 8.8 Carboxyhemoglobin 3.4 Methemoglobin 0.3 L POC Potassium Temperature 37.0 POC O2 Flow Rate 32 Sodium Potassium 4.2 Chloride Carbon Dioxide Anion Gap BUN Creatinine Estimated GFR Glucose Lactic Acid 1.0 Calcium Magnesium Total Bilirubin AST ALT Alkaline Phosphatase Troponin I NT-Pro-B Natriuret Pep Serum Total Protein Albumin Influenza Type A Ag NEGATIVE Influenza Type B Ag NEGATIVE RSV (PCR) NEGATIVE 04/22/16 04/22/16 18:00 18:00 WBC 9.9 RBC 3.58 L Hgb 9.0 L Hct 30.6 L MCV 85.5 MCH 25.1 L MCHC 29.4 L RDW 17.2 H Plt Count 539 H MPV 9.7 H Gran % 83.2 H Lymphocytes % 13.0 L Monocytes % 3.4 Eosinophils % 0.2 Basophils % 0.2 Basophils # 0.02 INR PTT Puncture Site pCO2 pO2 Base Excess O2 Saturation ABG pH ABG HCO3 ABG O2 Sat (Measured) Get Test VBG pH VBG pCO2 at Pat Temp VBG pO2 at Pat Temp VBG HCO3 VBG O2 Sat (Paulo) VBG Base Excess VBG Hemoglobin VBG Carboxyhemoglobin A-a Gradient a/A Ratio Hemoglobin Carboxyhemoglobin Methemoglobin POC Potassium Temperature POC O2 Flow Rate Sodium 142 Potassium 3.9 Chloride 107 Carbon Dioxide 28.7 Anion Gap 10.3 BUN 10 Creatinine 0.94 Estimated GFR > 60 Glucose 128 H Lactic Acid Calcium 8.6 Magnesium Total Bilirubin < 0.1 L AST 9 L ALT 16 Alkaline Phosphatase 64 Troponin I < 0.017 NT-Pro-B Natriuret Pep 113 Serum Total Protein 6.9 Albumin 3.3 L Influenza Type A Ag Influenza Type B Ag RSV (PCR) Orders (Last 24 hours) Category Date Time Status Up With Assistance ROUTINE Activity 04/22/16 21:33 Active Admission/Status Order ROUTINE Care 04/22/16 21:33 Active 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 04/22/16 18:05 Active Code Status Order ROUTINE Care 04/22/16 21:33 Active EKG-ER Only STAT Care 04/22/16 17:53 Completed IV Care Q6H Care 04/22/16 21:33 Active IV Insertion STAT Care 04/22/16 17:53 Active Miscellaneous Nursing Order ROUTINE Care 04/22/16 21:33 Active Oxygen-ED Only NASAL CANNULA 3 lpm Care 04/22/16 18:15 Active Oxygen-ED Only VENTI-MASK 50% Care 04/22/16 18:05 Inactive Pulse Oximetry (ED) STAT Care 04/22/16 18:05 Active Rashaun Solorio, Apply ROUTINE Care 04/22/16 21:33 Active Telemetry Q4H Care 04/22/16 21:33 Active Weight,Daily 0600 Care 04/22/16 21:33 Active Cardio-Pulmonary Rehab .as ordered Cons 04/23/16 00:06 Active CHEST 1 VIEW (PORTABLE) Stat Exams 04/22/16 17:54 Completed ARTERIAL BLOOD GASES Urgent Lab 04/22/16 18:05 Completed BLOOD CULTURE Stat Lab 04/22/16 18:24 Ordered CBC AM.LAB Lab 04/23/16 05:08 Completed CBC W DIFF Stat Lab 04/22/16 18:00 Completed CMP AM.LAB Lab 04/23/16 05:08 Completed CMP Stat Lab 04/22/16 18:00 Completed Lactic Acid Urgent Lab 04/22/16 18:05 Completed MAGNESIUM AM.LAB Lab 04/23/16 05:08 Completed NT PRO BNP Stat Lab 04/22/16 18:00 Completed PROTIME WITH INR Stat Lab 04/22/16 18:00 Completed PTT Stat Lab 04/22/16 18:00 Completed Respiratory Panel Stat Lab 04/22/16 18:24 Completed TROPONIN Stat Lab 04/22/16 18:00 Completed Albuterol/Ipratropium 3ml Neb* [DUONEB 0.5-3 MG/3 ml Med 04/22/16 18:45 Discontinued Neb] 3 ml IH .STK-MED ONE Albuterol/Ipratropium 3ml Neb* [DUONEB 0.5-3 MG/3 ml Med 04/22/16 23:00 Active Neb] 3 ml IH Q4HRT Albuterol/Ipratropium 3ml Neb* [DUONEB 0.5-3 MG/3 ml Med 04/22/16 18:05 Discontinued Neb] 3 ml IH STAT ONE Budesonide 0.5 mg/2 ml [Pulmicort 0.5 mg/2 ml Med 04/23/16 06:36 Discontinued Respules] 0.5 mg IH .STK-MED ONE Budesonide 0.5 mg/2 ml [Pulmicort 0.5 mg/2 ml Med 04/23/16 07:00 Active Respules] 0.5 mg IH BIDRT Calcium Carbonate 750 mg [Tums EX 750 MG] Med 04/23/16 14:16 Active 750 mg PO Q2HPRN PRN Clonazepam 0.5 mg [Klonopin 0.5 MG] Med 04/22/16 23:45 Discontinued 1 mg .ROUTE .STK-MED ONE Clonazepam 0.5 mg [Klonopin 0.5 MG] Med 04/22/16 23:30 Discontinued 1 mg PO HS Clonazepam 0.5 mg [Klonopin 0.5 MG] Med 04/23/16 22:00 Active 1 mg PO HS Clonazepam 0.5 mg [Klonopin 0.5 MG] Med 04/23/16 12:00 Discontinued 1 mg PO NOON Clonazepam [Klonopin] Med 04/23/16 15:00 Active 2 mg PO 0800,1500 Clonazepam [Klonopin] Med 04/23/16 08:00 Discontinued 2 mg PO BIDWM Doxycycline Hyclate 100 mg [Vibramycin 100 MG] Med 04/22/16 22:00 Active 100 mg PO BID Ergocalciferol (Vitamin D2) [Vitamin D2] Med 04/29/16 10:00 Active 50,000 unit PO We Ezetimibe 10 mg [Zetia 10 MG] Med 04/23/16 10:00 Active 10 mg PO DAILY Famotidine 20 mg [Pepcid 20 MG] Med 04/22/16 23:35 Active 40 mg PO BID Fluticasone Propionate [Flonase NASAL] Med 04/23/16 10:00 Active 0 gm NS DAILY Fluticasone/Salmeterol 115/21 [Advair Hfa 115/21 Common Med 04/23/16 07:00 Active canister*] 2 puff IH BIDRT Gabapentin 300 mg [Neurontin 300 mg] Med 04/23/16 08:00 Active 600 mg PO 0800,1500 Gabapentin 400 mg [Neurontin 400 MG] Med 04/22/16 23:35 Active 2,400 mg PO HS Guaifenesin/Codeine 5 ml [Robitussin AC Syrup Unit Med 04/22/16 23:39 Active Dose Cup] 10 ml PO Q6HPRN PRN Hydrocortisone Sod Succ 100 mg [solu-CORTEF 100MG] Med 04/23/16 10:00 Discontinued 80 mg IV Q12H Isosorbide Mononitrate 30 mg [Imdur 30 MG] Med 04/23/16 10:00 Active 30 mg PO DAILY Levofloxacin [Levofloxacin 500MG/100ML D5W] 100 ml Med 04/23/16 10:00 Active IV Q24H10 Levothyroxine Sodium 25 Mcg [Synthroid 25 Mcg] Med 04/23/16 10:00 Active 25 mcg PO DAILY Methylprednis Sod Succ 125 mg* [solu-MEDROL 125 MG] Med 04/22/16 18:09 Discontinued 125 mg .ROUTE .STK-MED ONE Methylprednis Sod Succ 125 mg* [solu-MEDROL 125 MG] Med 04/22/16 18:05 Discontinued 125 mg IV STAT ONE Methylprednis Sod Succ 125 mg* [solu-MEDROL 125 MG] Med 04/23/16 18:00 Active 60 mg IV Q12H Methylprednis Sod Succ 125 mg* [solu-MEDROL 125 MG] Med 04/23/16 00:00 Discontinued 80 mg IV Q6HT Multivitamins,Therapeutic Tab* [Theragran Multivitamin* Med 04/23/16 10:00 Active ] 1 tab PO DAILY NaCl 0.9% 1000 ml [Sodium Chloride 0.9% 1000 ML] 1,000 Med 04/22/16 18:09 Discontinued ml .ROUTE UD NaCl 0.9% 1000 ml [Sodium Chloride 0.9% 1000 ML] 1,000 Med 04/22/16 18:15 Active ml IV 50 mls/hr Nitroglycerin 0.4 mg Tablet [Nitrostat 0.4 MG Tablet Med 04/23/16 07:50 Active ] 0.4 mg SL UD PRN Nystatin/TCN/Hc/Diphenhydram [Tamara's Magic Mouthwash* Med 04/23/16 10:00 Active ] 5 ml PO QID Oxycodone / APAP 10/325 mg [Oxycodone-Acetaminophen Med 04/22/16 23:35 Active 10-325] 1 tab PO Q6HPRN PRN Prednisone 20 mg [Deltasone 20 mg] Med 04/23/16 10:00 Discontinued 20 mg PO DAILY Quetiapine Fumarate 100 mg [Seroquel 100 MG] Med 04/22/16 23:35 Active 100 mg PO BID Sertraline HCl 50 mg [Zoloft 50 mg Tablet] Med 04/23/16 10:00 Active 200 mg PO QAM Tizanidine HCl 4 mg [Zanaflex 4 MG] Med 04/22/16 23:40 Active 4 mg PO TID Oxygen NASAL CANNULA 3 lpm RT 04/22/16 21:33 Active RT Screen per Nursing Assess ONCE RT 04/23/16 00:06 Completed Respiratory MDI BID RT 04/23/16 07:00 Active Respiratory Nebulizer BID RT 04/23/16 07:00 Active Respiratory Nebulizer Q4H RT 04/22/16 21:33 Active Respiratory Nebulizer STAT RT 04/22/16 18:06 Completed Respiratory Therapy Consult ROUTINE RT 04/22/16 21:33 Completed Smoking Cessation Education ONCE RT 04/23/16 00:06 Completed Transfer Order Routine Transfer 04/22/16 19:55 Completed Patient Care Notes (Last 24 hours) 04/22/16 23:30 (created 04/23/16 05:11) Nursing Note by Irvin Bullard Called Dr Garrison regarding nighttime home meds. He said to continue all home medications. Initialized on 04/23/16 05:11 - END OF NOTE Code(s): J20.9 - ACUTE BRONCHITIS, UNSPECIFIED; J42 - UNSPECIFIED CHRONIC BRONCHITIS (2) Anemia associated with nutritional deficiency Current Visit: No Status: Resolved Code(s): D53.9 - NUTRITIONAL ANEMIA, UNSPECIFIED
[2016-04-23] MEDS ORDERED: KLONOPIN PO SCH (08:00)
[2016-04-23] MEDS ORDERED: CHOLECALCIFEROL 50000 UNIT PO SCH (08:00)
[2016-04-23] MEDS: SYNTHROID 25 MCG PO SCH (08:36)
[2016-04-23] MEDS: Zetia 10 MG PO SCH (08:36)
[2016-04-23] MEDS: Imdur 30 MG PO SCH (08:36)
[2016-04-23] MEDS: ZOLOFT 50 MG TABLET PO SCH (08:36)
[2016-04-23] MEDS: NEURONTIN 300 MG PO SCH ×2 (08:37→14:13)
[2016-04-23] MEDS: Flonase NASAL NS SCH (08:37)
[2016-04-23] MEDS: THERAGRAN MULTIVITAMIN PO SCH (08:37)
[2016-04-23] MEDS: Robitussin AC Syrup Unit Dose Cup PO PRN ×2 (08:46→15:48)
--- NOTE | 2016-04-23 09:44 | XRAY ---
Exam: AP upright portable chest film from 1808 hrs. on 04/22/2016. Comparison: Two-view chest from 02/25/2016. Indication: Shortness of breath. Findings: The heart size and contour are normal. The alivia and mediastinal structures appear within normal limits. I again see a mild retrocardiac hiatal hernia. The pulmonary vessels are not congested. The right lung appears clear. Prior small remaining left perihilar and peripheral left lower lung field infiltrates on 02/25/2016 have almost completely resolved with perhaps only minimal atelectasis or scarring remaining. This represents continued improvement. No pneumothorax, or other lung opacities, or pleural fluid is seen. The bones appear intact. Impression: 1. Prior small patchy left perihilar and peripheral left lower lobe infiltrates on 02/25/2016 have essentially resolved. Trace remaining linear scarring or atelectasis is not completely excluded at the lateral left lung base. 2. No acute cardiopulmonary process is seen. 3. Mild retrocardiac hiatal hernia.
[2016-04-23] MEDS ORDERED: NON-FORMULARY ITEM (Prenatal Vits W-Ca,Fe,Fa(<1mg) [Prenatal] 1 EACH) PO SCH (10:00)
[2016-04-23] MEDS ORDERED: MOMETASONE FUROATE NS SCH (10:00)
[2016-04-23] MEDS ORDERED: DELTASONE 20 MG PO SCH (10:00)
[2016-04-23] MEDS ORDERED: SERTRALINE HCL PO SCH (10:00)
[2016-04-23] MEDS ORDERED: solu-CORTEF 100MG IV SCH (10:00)
[2016-04-23] MEDS: Levofloxacin 500MG/100ML D5W 100 ML IV SCH (10:08)
[2016-04-23] MEDS: OXYCODONE-ACETAMINOPHEN 10-325 PO PRN ×3 (10:18→23:42)
[2016-04-23] MEDS: MARY'S MAGIC MOUTHWASH PO SCH ×5 (10:45→22:30)
[2016-04-23] MEDS ORDERED: Klonopin 0.5 MG PO SCH ×2 (12:00→22:00)
[2016-04-23] MEDS: KLONOPIN PO SCH (14:13)
[2016-04-23] MEDS: Tums EX 750 MG PO PRN ×2 (15:48→17:37)
[2016-04-23] MEDS: Sodium Chloride 0.9% 1000 ML 1,000 ML IV SCH (17:34)
[2016-04-24] MEDS: Zanaflex 4 MG PO SCH ×2 (01:30→09:08)
[2016-04-24] MEDS: Tums EX 750 MG PO PRN (01:34)
[2016-04-24] MEDS: DUONEB 0.5-3 MG/3 ml Neb IH SCH ×2 (05:48→06:56)
[2016-04-24] MEDS: solu-MEDROL 125 MG IV SCH (06:27)
[2016-04-24] MEDS: PULMICORT 0.5 MG/2 ML RESPULES IH SCH (06:56)
[2016-04-24] MEDS: Advair Hfa 115/21 Common canister IH SCH (06:57)
[2016-04-24] MEDS: NEURONTIN 300 MG PO SCH (07:44)
[2016-04-24] MEDS: KLONOPIN PO SCH (07:44)
[2016-04-24 08:06] VITALS: BP 151/93; PULSE 85; O2SAT 95
[2016-04-24] MEDS: Zetia 10 MG PO SCH (09:07)
[2016-04-24] MEDS: Levofloxacin 500MG/100ML D5W 100 ML IV SCH (09:07)
[2016-04-24] MEDS: Imdur 30 MG PO SCH (09:08)
[2016-04-24] MEDS: Flonase NASAL NS SCH (09:08)
[2016-04-24] MEDS: ZOLOFT 50 MG TABLET PO SCH (09:08)
[2016-04-24] MEDS: THERAGRAN MULTIVITAMIN PO SCH (09:08)
[2016-04-24] MEDS: Seroquel 100 MG PO SCH (09:08)
[2016-04-24] MEDS: SYNTHROID 25 MCG PO SCH (09:08)
[2016-04-24] MEDS: Vibramycin 100 MG PO SCH (09:08)
[2016-04-24] MEDS: Pepcid 20 MG PO SCH (09:08)
[2016-04-24] MEDS: OXYCODONE-ACETAMINOPHEN 10-325 PO PRN (09:10)
[2016-04-24] MEDS: MARY'S MAGIC MOUTHWASH PO SCH (09:16)
[2016-04-24] MEDS ORDERED: FLUZONE QUAD 2016-2017 SYRINGE 36MO-64YO IM ONE (11:30)
--- NOTE | 2016-04-24 12:45 | PCM.DS ---
Discharge Summary Date of Admission: 04/22/16 21:13 Admitting Physician: CHANTAL PAYTON Primary Care Provider: WEN CAMERON Allergies Allergies bupropion HCl [From Wellbutrin] Allergy (Verified 04/22/16 17:56) Coconut Allergy (Verified 04/22/16 17:56) morphine Allergy (Verified 04/22/16 17:56) Penicillins Allergy (Verified 04/22/16 17:56) Hospital Summary - Hospital Course Hospital Course: Chief Complaint Diagnosis Shortness of Breath for 4-5 days Allergies Allergy/AdvReac Type Severity Reaction Status Date / Time bupropion HCl Allergy Verified 04/22/16 17:56 [From Wellbutrin] Coconut Allergy Verified 04/22/16 17:56 morphine Allergy Verified 04/22/16 17:56 Penicillins Allergy Verified 04/22/16 17:56 Vital Signs (Last 24 hours) Temp Pulse Resp BP Pulse Ox 04/24/16 08:00 98.3 F 85 22 151/93 95 04/24/16 07:00 88 20 99 04/24/16 04:00 98.7 F 76 23 147/80 99 04/23/16 23:51 98.8 F 88 20 137/64 99 04/23/16 23:06 86 16 98 04/23/16 20:00 99.1 F 91 H 24 139/65 98 04/23/16 18:51 93 H 20 99 04/23/16 16:00 98.9 F 95 H 24 122/66 99 04/23/16 14:56 99 H 16 97 Home Medications Medication Instructions Recorded Confirmed Last Taken Type Prednisone 20 mg [Deltasone 20 20 mg PO DAILY 04/22/16 04/22/16 04/22/16 08: 30 History mg] Doxycycline Hyclate 100 mg 100 mg PO BID #14 tab 04/24/16 Unknown Rx [Vibramycin 100 MG] Guaifenesin/Dextromethorphan 5 ml PO Q6HPRN PRN #1 liquid 04/24/16 Unknown Rx [Robitussin Cough-Chest Dm Liq] Varenicline Tartrate [Chantix] 1 each PO UD #0 tab.ds.pk 04/24/16 Unknown Rx Current Medications Generic Name Dose Route Start Last Admin Trade Name Freq PRN Reason Stop Dose Admin Albuterol/Ipratropium 3 ml 04/22/16 23:00 04/24/16 06:56 Duoneb 0.5-3 Mg/3 Ml Neb IH 05/22/16 22:59 3 ml Q4HRT VALERY Administration Budesonide 0.5 mg 04/23/16 07:00 04/24/16 06:56 Pulmicort 0.5 Mg/2 Ml Respules IH 05/23/16 06:59 0.5 mg BIDRT VALERY Administration Calcium Carbonate/Glycine 750 mg 04/23/16 14:16 04/24/16 01:34 Tums Ex 750 Mg PO 05/23/16 14:15 750 mg Q2HPRN PRN Administration heart burn Clonazepam 2 mg 04/23/16 15:00 04/24/16 07:44 Klonopin PO 05/23/16 14:59 2 mg 0800,1500 VALERY Administration Clonazepam 1 mg 04/23/16 22:00 04/23/16 22:26 Klonopin 0.5 Mg PO 05/23/16 21:59 1 mg HS VALERY Administration Doxycycline Hyclate 100 mg 04/22/16 22:00 04/24/16 09:08 Vibramycin 100 Mg PO 05/22/16 21:59 100 mg BID VALERY Administration Ezetimibe 10 mg 04/23/16 10:00 04/24/16 09:07 Zetia 10 Mg PO 05/23/16 09:59 10 mg DAILY VALERY Administration Ergocalciferol 50,000 unit 04/29/16 10:00 Vitamin D2 PO 05/29/16 09:59 We VALERY Famotidine 40 mg 04/22/16 23:35 04/24/16 09:08 Pepcid 20 Mg PO 05/22/16 23:34 40 mg BID VALERY Administration Fluticasone Propionate 0 gm 04/23/16 10:00 04/24/16 09:08 Flonase Nasal NS 05/23/16 09:59 16 gm DAILY VALERY Administration Gabapentin 2,400 mg 04/22/16 23:35 04/23/16 22:26 Neurontin 400 Mg PO 05/22/16 23:34 2,400 mg HS VALERY Administration Gabapentin 600 mg 04/23/16 08:00 04/24/16 07:44 Neurontin 300 Mg PO 05/23/16 07:59 600 mg 0800,1500 VALERY Administration Guaifenesin/Codeine Phosphate 10 ml 04/22/16 23:39 04/23/16 15:48 Robitussin Ac Syrup Unit Dose Cup PO 05/22/16 23:38 10 ml Q6HPRN PRN Administration COUGH Sodium Chloride 1,000 mls @ 50 mls/hr 04/22/16 18:15 04/23/16 17:34 Sodium Chloride 0.9% 1000 Ml IV 05/22/16 18:14 50 mls/hr .Q20H VALERY Administration Levofloxacin/Dextrose 100 mls @ 100 mls/hr 04/23/16 10:00 04/24/16 09:07 Levofloxacin 500mg/100ml D5w IV 05/23/16 09:59 100 mls/hr Q24H10 VALERY Administration Isosorbide Mononitrate 30 mg 04/23/16 10:00 04/24/16 09:08 Imdur 30 Mg PO 05/23/16 09:59 30 mg DAILY VALERY Administration Levothyroxine Sodium 25 mcg 04/23/16 10:00 04/24/16 09:08 Synthroid 25 Mcg PO 05/23/16 09:59 25 mcg DAILY VALERY Administration Methylprednisolone Sodium Succinate 60 mg 04/23/16 18:00 04/24/16 06:27 Solu-Medrol 125 Mg IV 05/23/16 17:59 60 mg Q12H VALERY Administration Multivitamins 1 tab 04/23/16 10:00 04/24/16 09:08 Theragran Multivitamin PO 05/23/16 09:59 1 tab DAILY VALERY Administration Nitroglycerin 0.4 mg 04/23/16 07:50 Nitrostat 0.4 Mg Tablet SL 05/23/16 07:49 UD PRN CHEST PAIN Oxycodone/Acetaminophen 1 tab 04/22/16 23:35 04/24/16 09:10 Oxycodone-Acetaminophen 10-325 PO 04/27/16 23:34 1 tab Q6HPRN PRN Administration PAIN Quetiapine Fumarate 100 mg 04/22/16 23:35 04/24/16 09:08 Seroquel 100 Mg PO 05/22/16 23:34 100 mg BID VALERY Administration Fluticasone/Salmeterol 2 puff 04/23/16 07:00 04/24/16 06:57 Advair Hfa 115/21 Common Canister* IH 05/23/16 06:59 2 puff BIDRT VALERY Administration Sertraline HCl 200 mg 04/23/16 10:00 04/24/16 09:08 Zoloft 50 Mg Tablet PO 05/23/16 09:59 200 mg QAM VALERY Administration Tizanidine HCl 4 mg 04/22/16 23:40 04/24/16 09:08 Zanaflex 4 Mg PO 05/22/16 23:39 4 mg TID VALERY Administration Discontinued Medications Generic Name Dose Route Start Last Admin Trade Name Freq PRN Reason Stop Dose Admin Albuterol/Ipratropium 3 ml 04/22/16 18:05 04/22/16 18:55 Duoneb 0.5-3 Mg/3 Ml Neb IH 04/22/16 18:06 3 ml STAT ONE Administration Albuterol/Ipratropium Confirm 04/22/16 18:45 Duoneb 0.5-3 Mg/3 Ml Neb Administered 04/22/16 18:46 Dose 3 ml IH .STK-MED ONE Budesonide Confirm 04/23/16 06:36 Pulmicort 0.5 Mg/2 Ml Respules Administered 04/23/16 06:37 Dose 0.5 mg IH .STK-MED ONE Clonazepam 1 mg 04/22/16 23:30 04/23/16 00:14 Klonopin 0.5 Mg PO 05/22/16 23:29 Not Given HS VALERY Clonazepam Confirm 04/22/16 23:45 Klonopin 0.5 Mg Administered 04/22/16 23:46 Dose 1 mg .ROUTE .STK-MED ONE Clonazepam 2 mg 04/23/16 08:00 04/23/16 08:36 Klonopin PO 05/23/16 07:59 2 mg BIDWM VALERY Administration Clonazepam 1 mg 04/23/16 12:00 04/23/16 12:47 Klonopin 0.5 Mg PO 04/23/16 15:00 1 mg NOON VALERY Administration Hydrocortisone Sodium Succinate 80 mg 04/23/16 10:00 Solu-Cortef 100mg IV 05/23/16 09:59 Q12H VALERY Sodium Chloride Confirm 04/22/16 18:09 Sodium Chloride 0.9% 1000 Ml Administered 04/22/16 18:10 Dose 1,000 mls @ ud .ROUTE .STK-MED ONE Influenza Virus Vaccine Quadrival 0.5 ml 04/24/16 11:30 04/24/16 11:34 Fluzone Quad [id number] Syringe [id number] IM 04/24/16 11:31 0.5 ml .ONCE ONE Administration Methylprednisolone Sodium Succinate 125 mg 04/22/16 18:05 04/22/16 18:11 Solu-Medrol 125 Mg IV 04/22/16 18:06 125 mg STAT ONE Administration Methylprednisolone Sodium Succinate Confirm 04/22/16 18:09 Solu-Medrol 125 Mg Administered 04/22/16 18:10 Dose 125 mg .ROUTE .STK-MED ONE Methylprednisolone Sodium Succinate 80 mg 04/23/16 00:00 04/23/16 06:49 Solu-Medrol 125 Mg IV 05/23/16 00:00 80 mg Q6HT VALERY Administration Prednisone 20 mg 04/23/16 10:00 04/23/16 08:36 Deltasone 20 Mg PO 05/23/16 09:59 20 mg DAILY VALERY Administration Intake & Output (Last 24 hours) 04/22/16 04/23/16 04/24/16 04/25/16 11:59 11:59 11:59 11:59 Intake Total 1262 3276 Output Total 1000 Balance 1262 2276 Weight 81.919 kg 83.779 kg Microbiology Results (Last 24 hours) 04/22/16 18:24 Blood - Pending 04/22/16 18:24 Blood Blood Culture - Preliminary NO GROWTH TO DATE 04/22/16 18:05 Blood - Pending 04/22/16 18:05 Blood Blood Culture - Preliminary NO GROWTH TO DATE Orders (Last 24 hours) Category Date Time Status Discharge Routine Discharge 04/24/16 09:24 Ordered Discharge/Telephone Order Routine Discharge 04/24/16 09:24 Active Calcium Carbonate 750 mg [Tums EX 750 MG] Med 04/23/16 14:16 Active 750 mg PO Q2HPRN PRN Clonazepam 0.5 mg [Klonopin 0.5 MG] Med 04/23/16 22:00 Active 1 mg PO HS Clonazepam 0.5 mg [Klonopin 0.5 MG] Med 04/23/16 12:00 Discontinued 1 mg PO NOON Clonazepam [Klonopin] Med 04/23/16 15:00 Active 2 mg PO 0800,1500 Ergocalciferol (Vitamin D2) [Vitamin D2] Med 04/29/16 10:00 Active 50,000 unit PO We Flu Vacc [id number] 36Mos Up/Pf [Fluzone Quad Med 04/24/16 11:30 Discontinued Syringe [id number]] 0.5 ml IM .ONCE ONE Methylprednis Sod Succ 125 mg* [solu-MEDROL 125 MG] Med 04/23/16 18:00 Active 60 mg IV Q12H Patient Care Notes (Last 24 hours) 04/24/16 09:00 (created 04/24/16 11:53) Case Management Note by Radha Holland MD ORDER TO DC HOME TODAY. CONTINUES TO DECLINE ADDNL NEEDS FOR DISCHARGE. SON PRESENT AT BEDSIDE. AGAIN, COUNSELED THAT SHE SHOULD LOCATE ANOTHER RENTAL PT REPORTS TO DR. CAMERON THAT HER CURRENT RENTAL HAS MOLD IN IT. EDUCATED TO ENVIROMENTAL IRRITANTS WITH CHRONIC LUNG DISEASE. ALSO, COUNSELED ONCE AGAIN TO QUIT SMOKING, AND HAZARDS OF CHEMICAL IRRITANTS WITH CHRONIC LUNG DISEASE. VERBALIZED UNDERSTANDING. INDEPENDENT WITH ALL ADL'S. HAS HOME OXYGEN IN PLACE. Initialized on 04/24/16 11:53 - END OF NOTE - Vitals & Intake/Output Vital Signs: Vital Signs Temperature 98.3 F 04/24/16 08:00 Pulse Rate 85 04/24/16 08:00 Respiratory Rate 22 04/24/16 08:00 Blood Pressure 151/93 04/24/16 08:00 O2 Sat by Pulse Oximetry 95 04/24/16 08:00 Oxygen-Last Documented O2 Percentage 4 Liters = 36% Intake & Output: Intake & Output 04/22/16 04/23/16 04/24/16 04/25/16 11:59 11:59 11:59 11:59 Intake Total 1262 3276 Output Total 1000 Balance 1262 2276 Weight 81.919 kg 83.779 kg - Lab Result Diagrams: 04/23/16 05:08 04/23/16 05:08 - Procedures and Test Procedures and Tests throughout Hospitalization: Therapy Orders & Screens 04/23/16 00:06 RT Screen per Nursing Assess ONCE Comment: Protocol Order Physician Instructions: Greater than 3 points order RT Admission Screen Reason For Exam: Triggered on Admission Diagnosis: Shortness of Breath Diagnosis: Shortness of Breath Pneumonia: No Home O2: Yes Asthma: Yes CHF: Yes Home CPAP/BIPAP: No Home Nebs/MDI: Yes Total Points: 17 Smoking Cessation Education ONCE Comment: Diagnosis: Shortness of Breath Smoking Status: Current every day smoker How long have you smoked: 43+years Have you smoked in the past 12 months: Yes Approximately how many cigarettes per day: 0.5 pack per day Do you dip or chew tobacco: No 04/23/16 07:00 Respiratory MDI BID Comment: Diagnosis: Shortness of Breath Respiratory Nebulizer BID Comment: PULMICORT BID Diagnosis: Shortness of Breath Discharge Exam General Appearance: no apparent distress, alert Neurologic Exam: alert, oriented x 3, cooperative, normal mood/affect, nml cerebellar function, sensation nml, No motor deficits Skin Exam: normal color, warm, dry Eye Exam: PERRL, EOMI, eyes nml inspection Ears, Nose, Throat Exam: normal ENT inspection, pharynx normal, moist mucous membranes Neck Exam: normal inspection, non-tender, supple, full range of motion Respiratory Exam: wheezing, No respiratory distress Cardiovascular Exam: regular rate/rhythm, normal heart sounds Gastrointestinal/Abdomen Exam: soft, No tenderness, No mass Extremity Exam: normal inspection, normal range of motion Back Exam: normal inspection, normal range of motion, No CVA tenderness, No vertebral tenderness Pelvic Exam: deferred Rectal Exam: deferred Final Diagnosis/Problem List - Final Discharge Diagnosis/Problem (1) Chronic bronchitis with acute exacerbation Current Visit: Yes Status: Resolved (2) Anemia associated with nutritional deficiency Current Visit: No Status: Chronic - Discharge Discharge Date: 04/24/16 Disposition: Home, Self-Care Condition: Serious Prescriptions: New Varenicline Tartrate [Chantix] 1 each PO UD #0 tab.ds.pk Guaifenesin/Dextromethorphan [Robitussin Cough-Chest Dm Liq] 5 ml PO Q6HPRN PRN #1 liquid PRN Reason: Cough Doxycycline Hyclate 100 mg [Vibramycin 100 MG] 100 mg PO BID #14 tab Continue Clonazepam 0.5 mg [Klonopin 0.5 MG] 2 mg PO BID Fluticasone/Salmeterol Disc [Advair 250-50 Diskus 14 Dose] 1 puff IH BID Famotidine 20 mg [Pepcid 20 MG] 40 mg PO BID Albuterol/Ipratropium Mdi [Combivent Inhaler] 1 puff IH QID Sertraline HCl 100 mg [Zoloft 100 MG] 200 mg PO QAM Clonazepam 0.5 mg [Klonopin 0.5 MG] 1 mg PO HS Isosorbide Mononitrate 30 mg [Imdur 30 MG] 30 mg PO DAILY Gabapentin 600 mg PO BID Cholecalciferol (Vitamin D3) [Vitamin D3] 50,000 units PO WEEKLY Tizanidine HCl 4 mg [Zanaflex 4 MG] 4 mg PO TID Ezetimibe 10 mg [Zetia 10 MG] 10 mg PO DAILY Oxycodone HCl/Acetaminophen [Percocet 10-325 mg Tablet] 10 - 325 each PO Q6HPRN PRN PRN Reason: Pain Mometasone Furoate [Nasonex] 2 inh NS DAILY Budesonide 0.5 mg/2 ml [Pulmicort 0.5 mg/2 ml Respules] 0.5 mg IH BID Levothyroxine Sodium 25 Mcg [Synthroid 25 Mcg] 25 mcg PO DAILY Quetiapine Fumarate [Seroquel] 100 mg PO BID Vits W-Ca,Fe,FA(<1Mg) [] 1 each PO DAILY Nitroglycerin 0.4 mg Tablet [Nitrostat 0.4 MG Tablet] 0.4 mg SL UD PRN PRN Reason: Chest Pain Gabapentin 2,400 mg PO HS Guaifenesin/Codeine Phos [Cheratussin AC Syrup] 10 ml PO Q6H PRN PRN PRN Reason: Cough Prednisone 20 mg [Deltasone 20 mg] 20 mg PO DAILY Instructions: Heart-Healthy Diet, Chronic Obstructive Pulmonary Disease, Quit Smoking Additional Instructions: PLEASE TRY TO FIND OTHER LIVING ARRANGEMENTS. YOUR CHRONIC LUNG DISEASE IS BEING AGGRAVATED BY YOUR CURRENT LIVING CONDITIONS YOU HAVE REPORTED THAT YOUR HOME HAS MOLD IN IT. ALSO, YOUR CHRONIC LUNG DISEASE IS BEING AGGRAVATED BY YOUR CONTINUED SMOKING. PLEASE STOP SMOKING. Follow up with: WEN CAMERON MD [Primary Care Provider] - 05/01/16 2:15 pm ([facility]) Forms: Discharge Instructions
[2016-04-29] MEDS ORDERED: VITAMIN D2 PO SCH (10:00)
== END 2016-04-24 11:50 | disposition home or self-care (01) ==
LOC: ED 17:35 → MED SURG 21:13
PROVIDERS: ADMIT General Practice; ATTEND General Practice
DX: J44.1 Chronic obstructive pulmonary disease with (acute) exacerbation (principal); Z23 Encounter for immunization; D53.8 Other specified nutritional anemias; I50.9 Heart failure, unspecified; E03.9 Hypothyroidism, unspecified; M19.90 Unspecified osteoarthritis, unspecified site; K21.9 Gastro-esophageal reflux disease without esophagitis; F41.8 Other specified anxiety disorders; R07.9 Chest pain, unspecified; F60.3 Borderline personality disorder; F43.10 Post-traumatic stress disorder, unspecified; Z72.0 Tobacco use
CPT/HCPCS: 36000; 36415; 36600; 71010; 80053; 82375; 82803; 83605; 83735; 83880; 84484; 85025; 85027; 85610; 85730; 87040; 87631; 90686; 93005; 93041; 93268; 94640; 94760; 96374; 99284; 99285; A9270; G0008; G0378; J1956; J2930

== ENCOUNTER 2016-09-26 16:43 | Emergency (ER) | payer MEDICARE ==
[2016-09-26 17:12] VITALS: O2SAT 99
[2016-09-26] MEDS ORDERED: SUBLIMAZE 100 MCG/2 ML IV ONE (17:14)
[2016-09-26] MEDS ORDERED: Sodium Chloride 0.9% 1000 ML 1,000 ML IV SCH (17:15)
[2016-09-26] MEDS ORDERED: SUBLIMAZE 100 MCG/2 ML ONE (17:17)
[2016-09-26] MEDS ORDERED: Sodium Chloride 0.9% 1000 ML 1,000 ML ONE (17:17)
--- NOTE | 2016-09-26 17:29 | ERPHSYRPT ---
- History of Present Illness Time Seen by Provider: 09/26/16 16:52 Source: patient, family Patient Subjective Stated Complaint: pt states she has had frequent falls over the past 3 weeks. pt c/o left rib pain and left leg pain. Triage Nursing Assessment: pt pale, warm, dry. no bruising to left ribs, hip, back and leg. pt ambulated into Er without difficulty. pt has home o2. wheezes noted in lower lung rao. Physician History: CC; falls Hx: 60 y/o patient of Dr Cameron has fallen a few times. Hurt the left ribs. She has pain in the left leg since past week. No fall today. Pain moderate. Wears chronic oxygen. She has seen pain clinic in the past. No fever at home but found to have fever here. Chronic cough. Normal urination. No rash. Severity: moderate Allergies/Adverse Reactions: bupropion HCl [From Wellbutrin] Allergy (Verified 09/26/16 17:03) Coconut Allergy (Verified 09/26/16 17:03) morphine Allergy (Verified 09/26/16 17:03) Penicillins Allergy (Verified 09/26/16 17:03) Home Medications: Albuterol/Ipratropium Mdi [Combivent Inhaler] 1 puff IH QID 12/29/12 [ History] Clonazepam 0.5 mg [Klonopin 0.5 MG] 2 mg PO BID 12/29/12 [History] Famotidine 20 mg [Pepcid 20 MG] 40 mg PO BID 12/29/12 [History] Fluticasone/Salmeterol Disc [Advair 250-50 Diskus 14 Dose] 1 puff IH BID 12/29/12 [History] Sertraline HCl 100 mg [Zoloft 100 MG] 200 mg PO QAM 12/17/13 [History] Clonazepam 0.5 mg [Klonopin 0.5 MG] 1 mg PO HS 09/16/14 [History] Isosorbide Mononitrate 30 mg [Imdur 30 MG] 30 mg PO DAILY 11/05/14 [History ] Cholecalciferol (Vitamin D3) [Vitamin D3] 50,000 units PO WEEKLY 01/16/15 [ History] Ezetimibe 10 mg [Zetia 10 MG] 10 mg PO DAILY 01/16/15 [History] Gabapentin 600 mg PO BID 01/16/15 [History] Tizanidine HCl 4 mg [Zanaflex 4 MG] 4 mg PO TID 01/16/15 [History] Budesonide 0.5 mg/2 ml [Pulmicort 0.5 mg/2 ml Respules] 0.5 mg IH BID [History] Levothyroxine Sodium 25 Mcg [Synthroid 25 Mcg] 25 mcg PO DAILY 10/17/15 [ History] Quetiapine Fumarate [Seroquel] 100 mg PO BID 10/17/15 [History] Vits W-Ca,Fe,FA(<1Mg) [] 1 each PO DAILY 10/18/15 [History] Nitroglycerin 0.4 mg Tablet [Nitrostat 0.4 MG Tablet] 0.4 mg SL UD PRN [History] Gabapentin 2,400 mg PO HS 02/21/16 [History] Hx Tetanus, Diphtheria Vaccination/Date Given: Yes (unknown) Hx Influenza Vaccination/Date Given: Yes Hx Pneumococcal Vaccination/Date Given: Yes Immunizations Up to Date: Yes - Review of Systems Constitutional: Weakness, No Fever, No Chills Eyes: No Symptoms, No Vision Changes Ears, Nose, & Throat: No Symptoms Respiratory: Cough (chronic), No Dyspnea Cardiac: No Chest Pain Abdominal/Gastrointestinal: No Abdominal Pain, No Nausea, No Vomiting Genitourinary Symptoms: No Dysuria Musculoskeletal: Fall, Joint Pain (left leg), No Back Pain, No Neck Pain All Other Systems: Reviewed and Negative - Past Medical History Pertinent Past Medical History: Yes Neurological History: Migraines ENT History: No Pertinent History Cardiac History: Congestive Heart Failure, High Cholesterol Respiratory History: COPD, Pneumonia Endocrine Medical History: Hypothyroidism Musculoskeletal History: Arthritis GI Medical History: GERD, Hernia, Polyps History: No Pertinent History Psycho-Social History: Anxiety, Depression Female Reproductive Disorders: Fibroids Other Medical History: 2 LEAKY VALVES. BORDERLINE PERSONALITY DISORDER, PTSD, manic depressive. bone deficiency - Past Surgical History Past Surgical History: Yes Neuro Surgical History: No Pertinent History Cardiac: No Pertinent History Respiratory: No Pertinent History Gastrointestinal: No Pertinent History Genitourinary: No Pertinent History Musculoskeletal: Other Female Surgical History: Section Other Surgical History: ARM SURGERY, 2 c-sections, EGD, Colonoscopy - Social History Smoking Status: Current every day smoker How long have you smoked: 42 Exposure to second hand smoke: Yes Alcohol Use: Socially Drug Use: none Patient Lives Alone: No Significant Family History: no pertinent family hx - Female History Hx Now: No - Nursing Vital Signs Nursing Vital Signs: Initial Vital Signs Temperature 100.1 F 09/26/16 17:00 Pulse Rate 101 H 09/26/16 17:00 Respiratory Rate 22 09/26/16 17:00 Blood Pressure 145/84 09/26/16 17:00 O2 Sat by Pulse Oximetry 99 09/26/16 17:00 Pain Scale Pain Intensity 6 - Physical Exam General Appearance: alert Eye Exam: PERRL/EOMI Ears, Nose, Throat Exam: moist mucous membranes Neck Exam: normal inspection, non-tender, supple Respiratory Exam: normal breath sounds, lungs clear Cardiovascular Exam: regular rate/rhythm Gastrointestinal/Abdomen Exam: soft, No tenderness, No distention Extremity Exam: normal inspection, tenderness Neurologic Exam: alert, oriented x 3, cooperative Skin Exam: warm, dry, No rash SpO2 Interpretation: normal SpO2: 99 Oxygen Delivery: Nasal Cannula - Course Nursing assessment & vital signs reviewed: Yes Ordered Tests: Active Orders 24 hr Category Date Time Status Cath for Specimen-Straight STAT Care 09/26/16 17:09 Active IV Insertion STAT Care 09/26/16 17:09 Active Oxygen-ED Only NASAL CANNULA 3 lpm Care 09/26/16 17:14 Active Pulse Oximetry (ED) STAT Care 09/26/16 17:09 Active Rectal Temperature STAT Care 09/26/16 17:09 Active CHEST 1 VIEW (PORTABLE) Stat Exams 09/26/16 17:09 Taken FEMUR Stat Exams 09/26/16 17:09 Taken FOOT (MINIMUM 3 VIEWS) Stat Exams 09/26/16 17:32 Taken LOWER LEG Stat Exams 09/26/16 17:09 Taken PELVIS (1 OR 2 VIEWS) Stat Exams 09/26/16 17:09 Taken BLOOD CULTURE Stat Lab 09/26/16 17:30 Received CBC W DIFF Stat Lab 09/26/16 17:29 Completed CMP Stat Lab 09/26/16 17:29 Completed CULTURE,URINE Stat Lab 09/26/16 17:30 Received Lactic Acid Stat Lab 09/26/16 17:30 Completed UA W/ MICROSCOPIC Stat Lab 09/26/16 17:30 Completed Medication Summary Generic Name Dose Route Start Last Admin Trade Name Yordan PRN Reason Stop Dose Admin Sodium Chloride 1,000 mls @ 50 mls/hr 09/26/16 17:15 09/26/16 17:18 Sodium Chloride 0.9% 1000 Ml IV 10/26/16 17:14 50 mls/hr .Q20H VALERY Administration Discontinued Medications Generic Name Dose Route Start Last Admin Trade Name Zurdoq PRN Reason Stop Dose Admin Fentanyl Citrate 25 mcg 09/26/16 17:14 09/26/16 17:18 Sublimaze 100 Mcg/2 Ml IV 09/26/16 17:15 25 mcg STAT ONE Administration Fentanyl Citrate Confirm 09/26/16 17:17 Sublimaze 100 Mcg/2 Ml Administered 09/26/16 17:18 Dose 100 mcg .ROUTE .[employer] ONE Lab/Rad Data: Laboratory Result Diagrams 09/26/16 17:29 09/26/16 17:29 Laboratory Results 09/26/16 09/26/16 09/26/16 Range/Units 17:30 17:30 17:29 WBC (4.0-10.5) K/mm3 RBC (4.1-5.4) M/mm3 Hgb (12.0-16.0) gm/dl Hct (35-47) % MCV (78-100) fl MCH (26-32) pg MCHC (32-36) g/dl RDW (11.5-14.0) % Plt Count (150-450) K/mm3 MPV (6-9.5) fl Gran % (36.0-66.0) % Lymphocytes % (24.0-44.0) % Monocytes % (0.0-12.0) % Eosinophils % (0.00-5.0) % Basophils % (0.0-0.4) % Basophils # (0-0.4) Sodium 145 (136-145) mEq/L Potassium 3.8 (3.5-5.1) mEq/L Chloride 106 (98-107) mEq/L Carbon Dioxide 29.0 (21-32) mEq/L Anion Gap 13.4 (5-15) MEQ/L BUN 8 L (9-20) mg/dL Creatinine 1.00 (0.55-1.30) mg/dl Estimated GFR > 60 ML/MIN Glucose 96 (70-110) MG/DL Lactic Acid 0.7 (0.4-2.0) Calcium 9.2 (8.5-10.1) mg/dL Total Bilirubin 0.20 (0.2-1.0) mg/dL AST 11 L (15-37) U/L ALT 17 (12-78) U/L Alkaline Phosphatase 97 (46-116) U/L Serum Total Protein 7.4 (6.4-8.2) gm/dL Albumin 3.9 (3.4-5.0) g/dL Ur Collection Type CATH Urine Color YELLOW (YELLOW) Urine Appearance CLEAR (CLEAR) Urine pH 5.0 (5-6) Ur Specific [place] 1.015 (1.005-1.025) Urine Protein NEGATIVE (Negative) Urine Ketones NEGATIVE (NEGATIVE) Urine Blood 50 (0-5) Erasto/ul Urine Nitrite NEGATIVE (NEGATIVE) Urine Bilirubin NEGATIVE (NEGATIVE) Urine Urobilinogen NORMAL (0-1) mg/dL Ur Leukocyte Esterase TRACE (NEGATIVE) Urine Microscopic RBC 2-5 (0-2) /HPF Urine Microscopic WBC 2-5 (0-5) /HPF Ur Epithelial Cells MODERATE (FEW) /HPF Urine Bacteria FEW (NEGATIVE) /HPF Urine Mucus SLIGHT (NEGATIVE) /HPF Urine Glucose NEGATIVE (NEGATIVE) mg/dL Specimen Received 09/26/16 1730 09/26/16 Range/Units 17:29 WBC 5.5 (4.0-10.5) K/mm3 RBC 3.66 L (4.1-5.4) M/mm3 Hgb 10.2 L (12.0-16.0) gm/dl Hct 32.2 L (35-47) % MCV 88.0 (78-100) fl MCH 27.8 (26-32) pg MCHC 31.7 L (32-36) g/dl RDW 14.0 (11.5-14.0) % Plt Count 468 H (150-450) K/mm3 MPV 10.2 H (6-9.5) fl Gran % 49.8 (36.0-66.0) % Lymphocytes % 32.8 (24.0-44.0) % Monocytes % 13.4 H (0.0-12.0) % Eosinophils % 3.3 (0.00-5.0) % Basophils % 0.7 (0.0-0.4) % Basophils # 0.04 (0-0.4) Sodium (136-145) mEq/L Potassium (3.5-5.1) mEq/L Chloride (98-107) mEq/L Carbon Dioxide (21-32) mEq/L Anion Gap (5-15) MEQ/L BUN (9-20) mg/dL Creatinine (0.55-1.30) mg/dl Estimated GFR ML/MIN Glucose (70-110) MG/DL Lactic Acid (0.4-2.0) Calcium (8.5-10.1) mg/dL Total Bilirubin (0.2-1.0) mg/dL AST (15-37) U/L ALT (12-78) U/L Alkaline Phosphatase (46-116) U/L Serum Total Protein (6.4-8.2) gm/dL Albumin (3.4-5.0) g/dL Ur Collection Type Urine Color (YELLOW) Urine Appearance (CLEAR) Urine pH (5-6) Ur Specific [place] (1.005-1.025) Urine Protein (Negative) Urine Ketones (NEGATIVE) Urine Blood (0-5) Erasto/ul Urine Nitrite (NEGATIVE) Urine Bilirubin (NEGATIVE) Urine Urobilinogen (0-1) mg/dL Ur Leukocyte Esterase (NEGATIVE) Urine Microscopic RBC (0-2) /HPF Urine Microscopic WBC (0-5) /HPF Ur Epithelial Cells (FEW) /HPF Urine Bacteria (NEGATIVE) /HPF Urine Mucus (NEGATIVE) /HPF Urine Glucose (NEGATIVE) mg/dL Specimen Received - Progress Progress Note: 09/26/16 18:26 No fx on xrays of left leg and pelvis. No source of infection. 09/26/16 18:37 Advised pt not safe to use opioids in conjunction with her chronic klonopin and high dose neurontin. No fractures seen. Pain in leg is ill defined and in hip, knee and ankle areas. ROM intact. Will release with instructions. Counseled pt/family regarding: diagnosis, need for follow-up, rad results - Departure Time of Disposition: 18:38 Departure Disposition: Home Clinical Impression: Anemia, Left leg pain, Frequent falls, Chronic pain syndrome Condition: Stable Critical Care Time: No Referrals: WEN CAMERON MD [Primary Care Provider] - Instructions: Prevent Falls, Contusion, Chronic Pain -- Adult Additional Instructions: Rx ibuprofen/motrin. Ice packs off and on. No driving and stay with family. Follow up next week with Dr Cameron. Prescriptions: Ibuprofen 600 mg PO Q6H PRN PRN #15 tablet PRN Reason: Pain
[2016-09-26 17:33] LABS: BASOPHIL % 0.7 % (0.0-0.4); Eosinophil % 3.3 % (0.00-5.0); Granulocytes % 49.8 % (36.0-66.0); Lymphocytes % 32.8 % (24.0-44.0); Mean Platelet Volume 10.2 fl (6-9.5); Monocytes % 13.4 % (0.0-12.0); Platelet Count 468 K/mm3 (150-450); Red Blood Count 3.66 M/mm3 (4.1-5.4); White Blood Count 5.5 K/mm3 (4.0-10.5)
[2016-09-26 17:38] LABS: Mean Corpuscular Hemoglobin 27.8 pg (26-32)
[2016-09-26 17:46] LABS: Collection Type CATH; Glucose NEGATIVE (NEGATIVE); Leukocyte Esterase TRACE (NEGATIVE)
[2016-09-26 17:47] LABS: ADD URINE CULTURE? YES (NO); Bacteria FEW /HPF (NEGATIVE); Bilirubin NEGATIVE (NEGATIVE); Blood 50 Ery/ul (0-5); COMPLETE URINE MICROSCOPIC? YES; Epithelial Cells MODERATE /HPF (FEW); Mucus SLIGHT /HPF (NEGATIVE)
[2016-09-26 17:56] LABS: ALBUMIN 3.9 g/dL (3.4-5.0); ALKALINE PHOSPHATASE 97 U/L (46-116); ANION GAP 13.4 MEQ/L (5-15); BLOOD UREA NITROGEN 8 mg/dL (9-20); CHLORIDE 106 mEq/L (98-107); Glucose 96 MG/DL (70-110); Potassium 3.8 mEq/L (3.5-5.1); SGOT/AST 11 U/L (15-37); SGPT/ALT 17 U/L (12-78); SODIUM 145 mEq/L (136-145); Total Protein 7.4 gm/dL (6.4-8.2)
[2016-09-26 18:15] VITALS: BP 117/80; PULSE 84
--- NOTE | 2016-09-27 09:07 | XRAY ---
Indication: Pain following fall. Comparison: None 2 views of the left femur demonstrates minimal medial knee joint space narrowing and tiny patellar spurring. No other bony, articular, or soft tissue abnormalities.
--- NOTE | 2016-09-27 09:07 | XRAY ---
Indication: Pain following fall. Comparison: April 22, 2016. Portable chest again demonstrates normal heart and lungs. Bony thorax intact.
--- NOTE | 2016-09-27 09:10 | XRAY ---
Indication: Pain following fall. Comparison: None 3 nonweightbearing views of the left foot demonstrates tiny heel spurs. No other bony, articular, or soft tissue abnormalities.
--- NOTE | 2016-09-27 09:10 | XRAY ---
Indication: Left-sided pain following fall. Comparison: November 05, 2014. Single AP pelvis unchanged again demonstrating lower lumbar degenerative changes and a few pelvic phleboliths. No new/acute bony, articular, or soft tissue abnormalities.
--- NOTE | 2016-09-27 09:12 | XRAY ---
Indication: Pain following fall. Comparison: None 2 views of the left lower leg obtained. No bony, articular, or soft tissue abnormalities.
== END 2016-09-26 18:50 | disposition home or self-care (01) ==
LOC: ED 16:43
DX: D64.9 Anemia, unspecified (principal); M79.605 Pain in left leg; G89.4 Chronic pain syndrome; Z91.81 History of falling; R07.81 Pleurodynia; Z79.899 Other long term (current) drug therapy; R05 Cough; I50.9 Heart failure, unspecified; E78.00 Pure hypercholesterolemia, unspecified; J44.9 Chronic obstructive pulmonary disease, unspecified; E03.9 Hypothyroidism, unspecified; F43.10 Post-traumatic stress disorder, unspecified; F60.3 Borderline personality disorder
CPT/HCPCS: 96374; 99284; 36000; 96360; 96361; 87040; 81000; 36415; 85025; 80053; 87086; 71010; 73630; 73590; 73552; 72170; 83605; P9612; J3010

== ENCOUNTER 2019-07-08 15:55 | Observation (INO) | payer MEDICARE ==
--- NOTE | 2019-07-08 16:15 | PCM.HP ---
History of Present Illness - Chief Complaint Chief Complaint: severe anemia hgb 3.3 History of Present Illness: is a 63 year old female. Significant past medical history of COPD emphysema congestive heart failure chronic anemia was seen in my office because of the generalized weakness and complete blood count was done. Today laboratory call with her hemoglobin 3.3 g/dL. So patient was called home and she was advised to come to the hospital at [facility] for blood transfusion. - Review of Systems Constitutional: Lethargy, Weakness, No Fever, No Chills Eyes: No Symptoms Ears, Nose, & Throat: No Symptoms Respiratory: No Cough, No Short Of Breath Cardiac: No Chest Pain, No Edema, No Syncope Abdominal/Gastrointestinal: No Abdominal Pain, No Nausea, No Vomiting, No Diarrhea Genitourinary Symptoms: No Dysuria Musculoskeletal: No Back Pain, No Neck Pain Skin: No Rash Neurological: No Dizziness, No Focal Weakness, No Sensory Changes Psychological: No Symptoms Endocrine: No Symptoms Hematologic/Lymphatic: No Symptoms Immunological/Allergic: No Symptoms Medications & Allergies Home Medications: Home Medication List Albuterol/Ipratropium Mdi [Combivent Inhaler] 1 puff IH QID 12/29/12 [ History Confirmed 09/26/16] Clonazepam 0.5 mg [Klonopin 0.5 MG] 2 mg PO BID 12/29/12 [History Confirmed 09/26/16] Famotidine 20 mg [Pepcid 20 MG] 40 mg PO BID 12/29/12 [History Confirmed 09/26/16] Fluticasone/Salmeterol Disc [Advair 250-50 Diskus 14 Dose] 1 puff IH BID 12/29/12 [History Confirmed 09/26/16] Sertraline HCl 100 mg [Zoloft 100 MG] 200 mg PO QAM 12/17/13 [History Confirmed 09/26/16] Clonazepam 0.5 mg [Klonopin 0.5 MG] 1 mg PO HS 09/16/14 [History Confirmed 09/26/16] Isosorbide Mononitrate 30 mg [Imdur 30 MG] 30 mg PO DAILY 11/05/14 [ History Confirmed 09/26/16] Cholecalciferol (Vitamin D3) [Vitamin D3] 50,000 units PO WEEKLY 01/16/15 [ History Confirmed 09/26/16] Ezetimibe 10 mg [Zetia 10 MG] 10 mg PO DAILY 01/16/15 [History Confirmed ] Gabapentin 600 mg PO BID 01/16/15 [History Confirmed 09/26/16] Tizanidine HCl 4 mg [Zanaflex 4 MG] 4 mg PO TID 01/16/15 [History Confirmed 09/26/16] Budesonide 0.5 mg/2 ml [Pulmicort 0.5 mg/2 ml Respules] 0.5 mg IH BID [History Confirmed 09/26/16] Levothyroxine Sodium 25 Mcg [Synthroid 25 Mcg] 25 mcg PO DAILY 10/17/15 [ History Confirmed 09/26/16] Quetiapine Fumarate [Seroquel] 100 mg PO BID 10/17/15 [History Confirmed ] Vits W-Ca,Fe,FA(<1Mg) [] 1 each PO DAILY 10/18/15 [History Confirmed 09/26/16] Nitroglycerin 0.4 mg Tablet [Nitrostat 0.4 MG Tablet] 0.4 mg SL UD PRN [History Confirmed 09/26/16] Gabapentin 2,400 mg PO HS 02/21/16 [History Confirmed 09/26/16] Ibuprofen 600 mg PO Q6H PRN PRN #15 tablet 09/26/16 [Rx] Allergies/Adverse Reactions: Allergies Allergy/AdvReac Type Severity Reaction Status Date / Time bupropion HCl Allergy Verified 09/26/16 17:03 [From Wellbutrin] Coconut Allergy Verified 09/26/16 17:03 morphine Allergy Verified 09/26/16 17:03 Penicillins Allergy Verified 09/26/16 17:03 - Past Medical History Past Medical History: Yes Neurological History: Migraines ENT History: No Pertinent History Cardiac History: Congestive Heart Failure, High Cholesterol Respiratory History: COPD, Pneumonia Endocrine Medical History: Hypothyroidism Musculoskelatal History: Arthritis GI Medical History: GERD, Hernia, Polyps History: No Pertinent History Pyscho-Social History: Anxiety, Depression Reproductive Disorders: Fibroids Comment: 2 LEAKY VALVES. BORDERLINE PERSONALITY DISORDER, PTSD, manic depressive. bone deficiency - Past Surgical History Past Surgical History: Yes Neuro Surgical History: No Pertinent History Cardiac History: No Pertinent History Respiratory Surgery: No Pertinent History GI Surgical History: No Pertinent History Genitourinary Surgical Hx: No Pertinent History Musculskeletal Surgical Hx: Other Female Surgical History: Section Other Surgical History: ARM SURGERY, 2 c-sections, EGD, Colonoscopy - Social History Smoking Status: Current every day smoker How long have you smoked: 42 Exposure to second hand smoke: Yes Alcohol: None Drug Use: none Significant Family History: no pertinent family hx - Physical Exam General Appearance: no apparent distress, alert Neurologic Exam: alert, oriented x 3, cooperative, normal mood/affect, nml cerebellar function, nml station & gait, sensation nml, No motor deficits Eye Exam: PERRL/EOMI, eyes nml inspection Ears, Nose, Throat Exam: normal ENT inspection, TMs normal, pharynx normal, moist mucous membranes Neck Exam: normal inspection, non-tender, supple, full range of motion Respiratory Exam: normal breath sounds, lungs clear, No respiratory distress Cardiovascular Exam: regular rate/rhythm, normal heart sounds, normal peripheral pulses Gastrointestinal/Abdomen Exam: soft, normal bowel sounds, No tenderness, No mass Back Exam: normal inspection, normal range of motion, No CVA tenderness, No vertebral tenderness Extremity Exam: normal inspection, normal range of motion, pelvis stable Skin Exam: normal color, warm, dry, No rash Lymphatic Exam: No adenopathy Assessment/Plan (1) Anemia associated with nutritional deficiency Current Visit: Yes Status: Chronic Assessment & Plan: We will admit patient as observation and will give 3 units of packed red blood cells with 40 mg of Lasix in between each PRBC Code(s): D53.9 - NUTRITIONAL ANEMIA, UNSPECIFIED (2) Anemia due to blood loss, chronic Current Visit: Yes Status: Chronic Code(s): D50.0 - IRON DEFICIENCY ANEMIA SECONDARY TO BLOOD LOSS (CHRONIC)
[2019-07-08 17:23] LABS: Hematocrit 13.6 % (35-47)
[2019-07-08 17:25] LABS: Hemoglobin 3.2 gm/dl (12.0-16.0)
[2019-07-08] MEDS ORDERED: Nitrostat 0.4 MG Tablet SL PRN (17:33)
[2019-07-08] MEDS ORDERED: Sodium Chloride 0.9% 500 ML 500 ML IV SCH (17:45)
[2019-07-08 17:51] LABS: ABO TYPING A; Antibody Screen NEGATIVE (NEGATIVE); RH TYPING POSITIVE
[2019-07-08 17:53] LABS: CROSS MATCH (PRBC) COMPATIBLE (COMPATIBLE)
[2019-07-08] MEDS: DUONEB 0.5-3 MG/3 ml Neb IH SCH (18:42)
[2019-07-08] MEDS: Advair Hfa 115/21 Common canister IH SCH (18:44)
[2019-07-08] MEDS ORDERED: Combivent Inhaler COMMON CANISTER IH SCH (19:00)
[2019-07-08] MEDS ORDERED: Nicoderm CQ 21 MG TOP SCH (19:30)
[2019-07-08] MEDS: DELTASONE 20 MG PO SCH (20:18)
[2019-07-08] MEDS: Zanaflex 4 MG PO SCH (20:20)
[2019-07-08] MEDS: TYLENOL 325 MG PO PRN (20:59)
[2019-07-08] MEDS: Sodium Chloride 0.9% 10 ML FLUSH Syringe IV SCH (21:03)
[2019-07-08] MEDS ORDERED: Seroquel 100 MG PO SCH (22:00)
[2019-07-08] MEDS ORDERED: Klonopin 0.5 MG PO SCH (22:00)
[2019-07-08] MEDS ORDERED: Neurontin 400 MG PO SCH (22:00)
[2019-07-08] MEDS ORDERED: PULMICORT 0.5 MG/2 ML RESPULES IH SCH (22:00)
[2019-07-08] MEDS: Lasix 40 MG/4 ML IV SCH (22:32)
[2019-07-09] MEDS: Lasix 40 MG/4 ML IV SCH (00:46)
[2019-07-09] MEDS: TYLENOL 325 MG PO PRN ×2 (03:18→08:41)
[2019-07-09] MEDS: Sodium Chloride 0.9% 10 ML FLUSH Syringe IV SCH (05:01)
[2019-07-09 06:22] LABS: Hematocrit 24.3 % (35-47); Hemoglobin 7.5 gm/dl (12.0-16.0)
[2019-07-09] MEDS: Advair Hfa 115/21 Common canister IH SCH (06:29)
[2019-07-09] MEDS: DUONEB 0.5-3 MG/3 ml Neb IH SCH ×2 (06:29→10:08)
[2019-07-09] MEDS ORDERED: PULMICORT 0.5 MG/2 ML RESPULES IH SCH (08:00)
[2019-07-09 08:51] LABS: ALBUMIN 3.9 g/dL (3.5-5.0); ALKALINE PHOSPHATASE 50 U/L (38-126); BLOOD UREA NITROGEN 19 mg/dL (7-17); CHLORIDE 102 mmol/L (98-107); Calcium 8.7 mg/dL (8.4-10.2); Carbon Dioxide 28 mmol/L (22-30); Creatinine 1 0.86 mg/dL (0.52-1.04); Glucose 122 mg/dL (74-106); SGOT/AST 15 U/L (14-36); SGPT/ALT 9 U/L (0-35); SODIUM 139 mmol/L (137-145); Total Protein 6.7 g/dL (6.3-8.2)
[2019-07-09 09:21] LABS: Hematocrit 24.7 % (35-47); Hemoglobin 7.5 gm/dl (12.0-16.0); Mean Cell Volume 78.2 fl (78-100); Mean Corpuscular Hemoglobin 23.7 pg (26-32); Mean Corpuscular Hgb Concent. 30.4 g/dl (32-36); Mean Platelet Volume 10.6 fl (7.5-11.0); Platelet Count 405 K/mm3 (150-450); Red Blood Count 3.16 M/mm3 (4.1-5.4); Red Cell Distribution Width 23.1 % (11.5-14.0); White Blood Count 8.9 K/mm3 (4.0-10.5)
[2019-07-09] MEDS: Zanaflex 4 MG PO SCH (09:28)
[2019-07-09] MEDS: DELTASONE 20 MG PO SCH (09:29)
[2019-07-09] MEDS ORDERED: Pepcid 20 MG PO SCH (10:00)
[2019-07-09] MEDS ORDERED: Klonopin 0.5 MG PO SCH (10:00)
[2019-07-09] MEDS ORDERED: VENTOLIN COMMON CANISTER IH SCH (10:00)
[2019-07-09] MEDS ORDERED: NON-FORMULARY ITEM (Prenatal Vits W-Ca,Fe,Fa(<1mg) [Prenatal] 1 EACH) PO SCH (10:00)
[2019-07-09] MEDS ORDERED: ADVAIR 250-50 DISKUS 14 DOSE IH SCH (10:00)
[2019-07-09] MEDS ORDERED: THERAGRAN MULTIVITAMIN PO SCH (10:00)
[2019-07-09] MEDS ORDERED: SYNTHROID 25 MCG PO SCH (10:00)
[2019-07-09] MEDS ORDERED: SERTRALINE HCL PO SCH (10:00)
[2019-07-09] MEDS ORDERED: KLONOPIN PO SCH (10:00)
[2019-07-09] MEDS ORDERED: Seroquel 100 MG PO SCH (10:00)
[2019-07-09] MEDS ORDERED: Imdur 30 MG PO SCH (10:00)
[2019-07-09] MEDS ORDERED: Neurontin 400 MG PO SCH (10:00)
[2019-07-09] MEDS ORDERED: ZOLOFT 50 MG TABLET PO SCH (10:00)
--- NOTE | 2019-07-09 11:12 | PCM.DS ---
Discharge Summary Date of Admission: 07/08/19 15:55 Date of Discharge: 07/09/19 Admitting Physician: MANGO GUERRERO MD Primary Care Provider: NISHA,WEN Allergies Allergies morphine Allergy (Severe, Verified 07/08/19 16:38) Fainting Penicillins Allergy (Verified 09/26/16 17:03) Coconut Adverse Reaction (Intermediate, Verified 07/08/19 16:38) Headache bupropion HCl [From Wellbutrin] Adverse Reaction (Mild, Verified 07/08/19 16:38) [facility] Summary - Vitals & Intake/Output Vital Signs: Vital Signs Temperature 98.6 F 07/09/19 08:00 Pulse Rate 78 07/09/19 10:09 Respiratory Rate 18 07/09/19 10:09 Blood Pressure 164/79 07/09/19 08:00 O2 Sat by Pulse Oximetry 96 07/09/19 10:09 Intake & Output: Intake & Output 07/06/19 07/07/19 07/08/19 07/09/19 11:59 11:59 11:59 11:59 Intake Total 2643 Output Total 2150 Balance 493 Weight 68.8 kg - Lab Result Diagrams: 07/09/19 06:10 07/09/19 08:08 Lab Results-Last 24 Hrs: Lab Results-Last 24 Hours 07/08/19 07/08/19 07/08/19 Range/Units 16:10 16:10 16:10 WBC (4.0-10.5) K/mm3 RBC (4.1-5.4) M/mm3 Hgb (12.0-16.0) gm/dl Hct (35-47) % MCV (78-100) fl MCH (26-32) pg MCHC (32-36) g/dl RDW (11.5-14.0) % Plt Count (150-450) K/mm3 MPV (7.5-11.0) fl Sodium (137-145) mmol/L Potassium (3.5-5.1) mmol/L Chloride (98-107) mmol/L Carbon Dioxide (22-30) mmol/L Anion Gap (5-15) MEQ/L BUN (7-17) mg/dL Creatinine (0.52-1.04) mg/dL Estimated GFR ML/MIN Glucose (74-106) mg/dL Calcium (8.4-10.2) mg/dL Total Bilirubin (0.2-1.3) mg/dL AST (14-36) U/L ALT (0-35) U/L Alkaline Phosphatase (38-126) U/L Serum Total Protein (6.3-8.2) g/dL Albumin (3.5-5.0) g/dL ABO Group A Rh Factor POSITIVE Antibody Screen NEGATIVE (NEGATIVE) Crossmatch COMPATIBLE COMPATIBLE (COMPATIBLE) 07/08/19 07/08/19 07/09/19 Range/Units 16:10 16:36 05:40 WBC 8.9 (4.0-10.5) K/mm3 RBC 3.16 L (4.1-5.4) M/mm3 Hgb 3.2 L* 7.5 L D (12.0-16.0) gm/dl Hct 13.6 L 24.7 L (35-47) % MCV 78.2 (78-100) fl MCH 23.7 L (26-32) pg MCHC 30.4 L (32-36) g/dl RDW 23.1 H (11.5-14.0) % Plt Count 405 (150-450) K/mm3 MPV 10.6 (7.5-11.0) fl Sodium (137-145) mmol/L Potassium (3.5-5.1) mmol/L Chloride (98-107) mmol/L Carbon Dioxide (22-30) mmol/L Anion Gap (5-15) MEQ/L BUN (7-17) mg/dL Creatinine (0.52-1.04) mg/dL Estimated GFR ML/MIN Glucose (74-106) mg/dL Calcium (8.4-10.2) mg/dL Total Bilirubin (0.2-1.3) mg/dL AST (14-36) U/L ALT (0-35) U/L Alkaline Phosphatase (38-126) U/L Serum Total Protein (6.3-8.2) g/dL Albumin (3.5-5.0) g/dL ABO Group Rh Factor Antibody Screen (NEGATIVE) Crossmatch COMPATIBLE (COMPATIBLE) 07/09/19 07/09/19 Range/Units 06:10 08:08 WBC (4.0-10.5) K/mm3 RBC (4.1-5.4) M/mm3 Hgb 7.5 L (12.0-16.0) gm/dl Hct 24.3 L (35-47) % MCV (78-100) fl MCH (26-32) pg MCHC (32-36) g/dl RDW (11.5-14.0) % Plt Count (150-450) K/mm3 MPV (7.5-11.0) fl Sodium 139 (137-145) mmol/L Potassium 4.0 (3.5-5.1) mmol/L Chloride 102 (98-107) mmol/L Carbon Dioxide 28 (22-30) mmol/L Anion Gap 12.0 (5-15) MEQ/L BUN 19 H (7-17) mg/dL Creatinine 0.86 (0.52-1.04) mg/dL Estimated GFR > 60.0 ML/MIN Glucose 122 H (74-106) mg/dL Calcium 8.7 (8.4-10.2) mg/dL Total Bilirubin 0.40 (0.2-1.3) mg/dL AST 15 (14-36) U/L ALT 9 (0-35) U/L Alkaline Phosphatase 50 (38-126) U/L Serum Total Protein 6.7 (6.3-8.2) g/dL Albumin 3.9 (3.5-5.0) g/dL ABO Group Rh Factor Antibody Screen (NEGATIVE) Crossmatch (COMPATIBLE) - Procedures and Test Procedures and Tests throughout Hospitalization: Therapy Orders & Screens 07/08/19 17:37 Oxygen Nasal Cannula 3 lpm Comment: Diagnosis: severe anemia hgb 3.3 Respiratory Therapy Assessment DAILY Comment: Diagnosis: severe anemia hgb 3.3 07/08/19 18:47 RT Screen per Nursing Assess ONCE Comment: Protocol Order Physician Instructions: Greater than 3 points order RT Admission Screen Reason For Exam: Triggered on Admission Diagnosis: severe anemia hgb 3.3 Diagnosis: severe anemia hgb 3.3 Pneumonia: No Home O2: Yes Asthma: Yes CHF: No Home CPAP/BIPAP: No Home Nebs/MDI: Yes Total Points: 14 Smoking Cessation Education ONCE Comment: Diagnosis: severe anemia hgb 3.3 Smoking Status: Current every day smoker How long have you smoked: "40 years" Have you smoked in the past 12 months: Yes Approximately how many cigarettes per day: 0.5 pack per day Do you dip or chew tobacco: No Final Diagnosis/Problem List - Final Discharge Diagnosis/Problem (1) Anemia Current Visit: No Status: Chronic Code(s): D64.9 - ANEMIA, UNSPECIFIED (2) COPD (chronic obstructive pulmonary disease) Current Visit: Yes Status: Acute (3) Smoker Current Visit: Yes Status: Acute Code(s): F17.200 - NICOTINE DEPENDENCE, UNSPECIFIED, UNCOMPLICATED - Discharge Disposition: Home, Self-Care Condition: Fair Prescriptions: New Nicotine 21 mg [Nicoderm CQ 21 MG] 21 mg TD DAILY #30 patch Continue Clonazepam 0.5 mg [Klonopin 0.5 MG] 2 mg PO TID Fluticasone/Salmeterol Disc [Advair 250-50 Diskus 14 Dose] 1 puff IH BID Famotidine 20 mg [Pepcid 20 MG] 40 mg PO BID Albuterol/Ipratropium Mdi [Combivent Inhaler] 1 puff IH QID Sertraline HCl 100 mg [Zoloft 100 MG] 200 mg PO QAM Isosorbide Mononitrate 30 mg [Imdur 30 MG] 30 mg PO DAILY Gabapentin 1,200 mg PO QAM Tizanidine HCl 4 mg [Zanaflex 4 MG] 4 mg PO TID Levothyroxine Sodium 25 Mcg [Synthroid 25 Mcg] 25 mcg PO DAILY Quetiapine Fumarate [Seroquel] 200 mg PO QAM Vits W-Ca,Fe,FA(<1Mg) [] 1 each PO DAILY Nitroglycerin 0.4 mg Tablet [Nitrostat 0.4 MG Tablet] 0.4 mg SL UD PRN PRN Reason: Chest Pain Gabapentin 2,400 mg PO HS methylPREDNISolone [Methylprednisolone] 1 tab PO UD levoFLOXacin [Levofloxacin] 500 mg PO DAILY Albuterol Common Canister [Ventolin Common Canister] 2 puff IH QID Fluticasone Propion/Salmeterol [Fluticasone-Salmeterol 250-50] 1 puff IH BID Quetiapine Fumarate 300 mg PO QHS Additional Instructions: Patient needs appt with graham Salcido Follow up with: WEN CAMERON MD [Primary Care Provider] - 1 Week
[2019-07-09 12:25] VITALS: BP 110/56; PULSE 75; O2SAT 94
== END 2019-07-09 13:59 | disposition home or self-care (01) ==
LOC: MED SURG 15:55
PROVIDERS: ADMIT Family Medicine; ATTEND Family Medicine
DX: D53.9 Nutritional anemia, unspecified (principal); D50.0 Iron deficiency anemia secondary to blood loss (chronic); J44.9 Chronic obstructive pulmonary disease, unspecified; E03.9 Hypothyroidism, unspecified; E78.00 Pure hypercholesterolemia, unspecified; Z79.899 Other long term (current) drug therapy; F17.200 Nicotine dependence, unspecified, uncomplicated
CPT/HCPCS: 36415; 36430; 80053; 85014; 85018; 85027; 86850; 86900; 86901; 86922; 93268; 94640; 94760; G0378; P9016; J1940; A9270-GY

== ENCOUNTER 2019-10-29 16:25 | Observation (INO) | payer MEDICARE ==
[2019-10-29] MEDS ORDERED: Xopenex 1.25 MG/0.5 ML UD NEBULE IH ONE ×2 (17:01→17:10)
[2019-10-29] MEDS ORDERED: Sodium Chloride 0.9% 1000 ML 1,000 ML IV STA (17:01)
--- NOTE | 2019-10-29 17:06 | ERPHSYRPT ---
- History of Present Illness Time Seen by Provider: 10/29/19 17:02 Source: patient Exam Limitations: no limitations Patient Subjective Stated Complaint: Cough Triage Nursing Assessment: Patient brought back to ED via w/c and transferred self to bed. Patient A+O X 3. Patient's skin pink, warm and dry. Patient complains of cough for over a week. Patient was tested for COVID this past week and test was negative. Patient's lungs noted to have wheezing throughout. O2 at 98% on 3 liters per n/c. Patient wears home O2 at 3 liters at all times. Zonia ent states her cough is sometimes productive with thick, yellow sputum. Physician History: Patient complains of cough for over a week. Patient was tested for COVID this past week and test was negative. Patient's noted to have wheezing throughout. O2 at 98% on 3 liters per n/c. Patient wears home O2 at 3 liters at all times. Patient states her cough is sometimes productive with thick, yellow sputum. Patient has been sick for last 1-2 weeks, patient still smokes 1 ppd Timing/Duration: week(s) Severity of Dyspnea-Max: moderate Severity of Dyspnea-Current: moderate Possible Cause: chronic episodes Modifying Factors: Improves With: albuterol nebulizer Associated Symptoms: cough, loss of appetite, wheezing, productive cough, No chest pain/discomfort, No fever, No chills Allergies/Adverse Reactions: morphine Allergy (Severe, Verified 10/29/19 16:35) Fainting Penicillins Allergy (Verified 10/29/19 16:35) Coconut Adverse Reaction (Intermediate, Verified 10/29/19 16:35) Headache bupropion HCl [From Wellbutrin] Adverse Reaction (Mild, Verified 10/29/19 16:35) Hives Home Medications: Albuterol/Ipratropium Mdi [Combivent Inhaler] 1 puff IH QID 12/29/12 [History] Clonazepam 0.5 mg [Klonopin 0.5 MG] 2 mg PO TID 12/29/12 [History] Famotidine 20 mg [Pepcid 20 MG] 40 mg PO BID 12/29/12 [History] Fluticasone/Salmeterol Disc [Advair 250-50 Diskus 14 Dose] 1 puff IH BID 12/29/12 [History] Sertraline HCl 100 mg [Zoloft 100 MG] 200 mg PO QAM 12/17/13 [History] Isosorbide Mononitrate 30 mg [Imdur 30 MG] 30 mg PO DAILY 11/05/14 [Hi story] Gabapentin 1,200 mg PO QAM 01/16/15 [History] Tizanidine HCl 4 mg [Zanaflex 4 MG] 4 mg PO TID 01/16/15 [History] Levothyroxine Sodium 25 Mcg [Synthroid 25 Mcg] 25 mcg PO DAILY 10/17/15 [History] Quetiapine Fumarate [Seroquel] 200 mg PO QAM 10/17/15 [History] Vits W-Ca,Fe,FA(<1Mg) [] 1 each PO DAILY 10/18/15 [History] Nitroglycerin 0.4 mg Tablet [Nitrostat 0.4 MG Tablet] 0.4 mg SL UD PRN 11/15/15 [History] Gabapentin 2,400 mg PO HS 02/21/16 [History] Albuterol Common Canister [Ventolin Common Canister] 2 puff IH QID 07/08/19 [History] Fluticasone Propion/Salmeterol [Fluticasone-Salmeterol 250-50] 1 puff IH BID 07/08/19 [History] Quetiapine Fumarate 300 mg PO QHS 07/08/19 [History] levoFLOXacin [Levofloxacin] 500 mg PO DAILY 07/08/19 [History] methylPREDNISolone [Methylprednisolone] 1 tab PO UD 07/08/19 [History] Hx Tetanus, Diphtheria Vaccination/Date Given: Yes (unknown) Hx Influenza Vaccination/Date Given: No Hx Pneumococcal Vaccination/Date Given: No Immunizations Up to Date: Yes Travel Risk - International Travel Have you traveled outside of the country in past 3 weeks: No (Patien is COVID negative) - Coronavirus Screening Are you exhibiting any of the following symptoms?: Yes Symptoms: Cough: New Onset, Shortness of Breath Close contact with a COVID-19 positive Pt in past 14-21 Days: No - Review of Systems Constitutional: No Fever, No Chills Eyes: No Symptoms Ears, Nose, & Throat: No Symptoms Respiratory: Cough, Dyspnea, Dyspnea on Exertion (SCOTT), Wheezing Cardiac: No Chest Pain, No Edema, No Syncope Abdominal/Gastrointestinal: No Abdominal Pain, No Nausea, No Vomiting, No Diarrhea Genitourinary Symptoms: No Dysuria Musculoskeletal: No Back Pain, No Neck Pain Skin: No Rash Neurological: No Dizziness, No Focal Weakness, No Sensory Changes Psychological: No Symptoms Endocrine: No Symptoms All Other Systems: Reviewed and Negative - Past Medical History Pertinent Past Medical History: Yes Neurological History: Migraines ENT History: No Pertinent History Cardiac History: Congestive Heart Failure, Coronary Artery Disease, High Cholesterol Respiratory History: Asthma, Bronchitis, COPD, Pneumonia Endocrine Medical History: Hypothyroidism Musculoskeletal History: Arthritis GI Medical History: GERD, Hernia, Polyps History: No Pertinent History Psycho-Social History: Anxiety, Bipolar, Depression Female Reproductive Disorders: Fibroids Other Medical History: 2 LEAKY VALVES. BORDERLINE PERSONALITY DISORDER, PTSD, manic depressive. bone deficiency - Past Surgical History Past Surgical History: Yes Neuro Surgical History: No Pertinent History Cardiac: Cardiac Catheterization Respiratory: No Pertinent History Gastrointestinal: Other Genitourinary: No Pertinent History Musculoskeletal: Other Female Surgical History: Section Other Surgical History: ARM SURGERY, 2 c-sections, EGD with dilitation, Colonoscopy, heart cathx2 - Social History Smoking Status: Current every day smoker How long have you smoked: "40 years" Exposure to second hand smoke: Yes Alcohol Use: Socially Drug Use: marijuana Patient Lives Alone: No Significant Family History: no pertinent family hx - Female History Hx Now: No - Nursing Vital Signs Nursing Vital Signs: Initial Vital Signs Temperature 98.6 F 10/29/19 16:35 Pulse Rate 111 H 10/29/19 16:35 Respiratory Rate 25 H 10/29/19 16:35 Blood Pressure 148/86 10/29/19 16:35 O2 Sat by Pulse Oximetry 99 10/29/19 16:35 Pain Scale Pain Intensity 0 - Physical Exam General Appearance: no apparent distress, alert Eye Exam: PERRL/EOMI Neck Exam: normal inspection, supple Respiratory Exam: diminished breath sounds, crackles/rales, rhonchi, wheezing Cardiovascular/Chest Exam: normal heart sounds, regular rate/rhythm Abdominal/Gastrointestinal Exam: soft, No tenderness, No distention, No mass Extremity Exam: non-tender, normal range of motion, normal inspection, no calf tenderness, no pedal edema Neurologic Exam: alert, oriented x 3, cooperative, environmental conflict manager II-XII nml as tested, sensation nml, No motor deficits Skin Exam: normal color, warm, No dry SpO2 Interpretation: normal SpO2: 99 - Course Nursing assessment & vital signs reviewed: Yes - Radiology Exams Chest X-ray Interpretation: Reviewed by me (COPD changes) Ordered Tests: Active Orders 24 hr Category Date Time Status Circulation Clerk STAT Care 10/29/19 17:02 Active EKG-ER Only STAT Care 10/29/19 17:01 Active Oxygen-ED Only Nasal Cannula 3 lpm Care 10/29/19 17:01 Active Pulse Oximetry (ED) STAT Care 10/29/19 17:01 Active CHEST 2 VIEWS (PA AND LAT) Stat Exams 10/29/19 17:01 Taken BLOOD CULTURE Stat Lab 10/29/19 17:30 Received CBC W DIFF Stat Lab 10/29/19 17:00 Completed CMP Stat Lab 10/29/19 17:00 Completed CULTURE,SPUTUM Stat Lab 10/29/19 17:01 Uncollected Lactic Acid Stat Lab 10/29/19 17:01 Completed Respiratory Therapy Assessment DAILY RT 10/29/19 17:29 Completed Medication Summary Generic Name Dose Route Start Last Admin Trade Name Freq PRN Reason Stop Dose Admin Sodium Chloride 1,000 mls @ 999 mls/hr 10/29/19 17:01 10/29/19 17:13 Sodium Chloride 0.9% 1000 Ml IV 10/29/19 18:01 999 mls/hr .[id number] STA Administration Discontinued Medications Generic Name Dose Route Start Last Admin Trade Name Freq PRN Reason Stop Dose Admin Sodium Chloride Confirm 10/29/19 17:09 Sodium Chloride 0.9% 1000 Ml Administered 10/29/19 17:10 Dose 1,000 mls @ ud .ROUTE .STK-MED ONE Levalbuterol HCl 1.25 mg 10/29/19 17:01 10/29/19 17:29 Xopenex 1.25 Mg/0.5 Ml Ud Nebule IH 10/29/19 17:02 1.25 mg STAT ONE Administration Levalbuterol HCl Confirm 10/29/19 17:10 Xopenex 1.25 Mg/0.5 Ml Ud Nebule Administered 10/29/19 17:11 Dose 1.25 mg IH .STK-MED ONE Sodium Chloride Confirm 10/29/19 17:10 Sodium Chloride 3 Ml Ud Nebules Administered 10/29/19 17:11 Dose 3 ml IH .STK-MED ONE Lab/Rad Data: Laboratory Result Diagrams 10/29/19 17:00 10/29/19 17:00 Laboratory Results 10/29/19 10/29/19 10/29/19 Range/Units 17:01 17:00 17:00 WBC 7.5 (4.0-10.5) K/mm3 RBC 3.72 L (4.1-5.4) M/mm3 Hgb 8.5 L (12.0-16.0) gm/dl Hct 30.1 L (35-47) % MCV 80.9 (78-100) fl MCH 22.8 L (26-32) pg MCHC 28.2 L (32-36) g/dl RDW 21.7 H (11.5-14.0) % Plt Count 510 H (150-450) K/mm3 MPV 9.2 (7.5-11.0) fl Gran % 73.2 H (36.0-66.0) % Eos # (Auto) 0.04 (0-0.5) Absolute Lymphs (auto) 1.31 (1.0-4.6) Absolute Monos (auto) 0.57 (0.0-1.3) Lymphocytes % 17.4 L (24.0-44.0) % Monocytes % 7.6 (0.0-12.0) % Eosinophils % 0.5 (0.00-5.0) % Basophils % 1.3 (0.0-0.4) % Absolute Granulocytes 5.51 (1.4-6.9) Basophils # 0.10 (0-0.4) Sodium 137 (137-145) mmol/L Potassium 3.9 (3.5-5.1) mmol/L Chloride 104 (98-107) mmol/L Carbon Dioxide 30 (22-30) mmol/L Anion Gap 7.0 (5-15) MEQ/L BUN 7 (7-17) mg/dL Creatinine 0.72 (0.52-1.04) mg/dL Estimated GFR > 60.0 ML/MIN Glucose 112 H (74-106) mg/dL Lactic Acid 1.0 (0.4-2.0) Calcium 9.3 (8.4-10.2) mg/dL Total Bilirubin 0.50 (0.2-1.3) mg/dL AST 20 (14-36) U/L ALT 16 (0-35) U/L Alkaline Phosphatase 81 (38-126) U/L Serum Total Protein 7.5 (6.3-8.2) g/dL Albumin 4.1 (3.5-5.0) g/dL - Progress Progress: unchanged Air Movement: fair Blood Culture(s) Obtained: Yes Antibiotics given: Yes Discussed with : Bandar Counseled pt/family regarding: lab results, diagnosis, need for follow-up, rad results, smoking cessation - Departure Departure Disposition: Observation Clinical Impression: COPD with acute exacerbation, Anemia due to blood loss, chronic Condition: Fair Critical Care Time: Yes Critical Care Time(excluding separately billable procedures): Critical 30-74 mins Referrals: WEN CAMERON MD [Primary Care Provider] - Instructions: Chronic Obstructive Pulmonary Disease
[2019-10-29] MEDS ORDERED: Sodium Chloride 0.9% 1000 ML 1,000 ML ONE (17:09)
[2019-10-29 17:10] LABS: Absolute Neutrophil Ct (ANC) 5.51 (1.4-6.9); BASOPHIL % 1.3 % (0.0-0.4); Eosinophil % 0.5 % (0.00-5.0); Eosinophil (Absolute #) 0.04 (0-0.5); Hematocrit 30.1 % (35-47); Hemoglobin 8.5 gm/dl (12.0-16.0); Lymphocyte (Absolute #) 1.31 (1.0-4.6); Lymphocytes % 17.4 % (24.0-44.0); Mean Cell Volume 80.9 fl (78-100); Mean Corpuscular Hemoglobin 22.8 pg (26-32); Mean Corpuscular Hgb Concent. 28.2 g/dl (32-36); Mean Platelet Volume 9.2 fl (7.5-11.0); Monocyte (Absolute #) 0.57 (0.0-1.3); Monocytes % 7.6 % (0.0-12.0); Neutrophil % 73.2 % (36.0-66.0); Platelet Count 510 K/mm3 (150-450); Red Blood Count 3.72 M/mm3 (4.1-5.4); Red Cell Distribution Width 21.7 % (11.5-14.0); White Blood Count 7.5 K/mm3 (4.0-10.5)
[2019-10-29] MEDS ORDERED: Sodium Chloride 3 ML UD NEBULES IH ONE ×2 (17:10→20:42)
[2019-10-29 17:20] LABS: ALBUMIN 4.1 g/dL (3.5-5.0); ALKALINE PHOSPHATASE 81 U/L (38-126); BLOOD UREA NITROGEN 7 mg/dL (7-17); CHLORIDE 104 mmol/L (98-107); Calcium 9.3 mg/dL (8.4-10.2); Carbon Dioxide 30 mmol/L (22-30); Creatinine 1 0.72 mg/dL (0.52-1.04); EST GLOMERULAR FILTRATION RATE > 60.0 ML/MIN; Glucose 112 mg/dL (74-106); Potassium 3.9 mmol/L (3.5-5.1); SGOT/AST 20 U/L (14-36); SGPT/ALT 16 U/L (0-35); SODIUM 137 mmol/L (137-145); Total Protein 7.5 g/dL (6.3-8.2)
[2019-10-29 18:15] LABS: Slide Review 1 YES
[2019-10-29] MEDS: solu-MEDROL 125 MG IV SCH ×2 (19:00→23:59)
[2019-10-29] MEDS: Sodium Chloride 0.9% 1000 ML 1,000 ML IV SCH (19:07)
--- NOTE | 2019-10-29 20:21 | XRAY ---
Indication: Cough and short of breath. Comparison: September 26, 2016. PA/lateral chest hyperinflated and clear. Heart is not enlarged with new small hiatal hernia. Bony thorax intact. Impression: Nonacute chest. New hiatal hernia.
[2019-10-29] MEDS: Xopenex 1.25 MG/0.5 ML UD NEBULE IH SCH (20:44)
[2019-10-29] MEDS: Advair Hfa 115/21 Common canister IH SCH (20:48)
[2019-10-29] MEDS ORDERED: Xopenex 1.25 MG/0.5 ML UD NEBULE IH SCH (22:00)
[2019-10-29] MEDS ORDERED: Pepcid 20 MG PO SCH (22:00)
[2019-10-29] MEDS ORDERED: Pepcid 20 MG VIAL IV SCH (22:00)
[2019-10-29] MEDS: Zanaflex 4 MG PO SCH (22:23)
[2019-10-29] MEDS: KLONOPIN PO SCH (22:23)
[2019-10-29] MEDS: Seroquel 100 MG PO SCH (22:23)
[2019-10-29] MEDS: Neurontin 400 MG PO SCH (22:23)
[2019-10-30] MEDS ORDERED: DUONEB 0.5-3 MG/3 ml Neb IH PRN (04:40)
[2019-10-30] MEDS: Sodium Chloride 0.9% 1000 ML 1,000 ML IV SCH ×2 (04:45→18:36)
[2019-10-30 05:08] LABS: Absolute Neutrophil Ct (ANC) 5.14 (1.4-6.9); BASOPHIL % 0.2 % (0.0-0.4); Basophil (Absolute #) 0.01 (0-0.4); Eosinophil (Absolute #) 0 (0-0.5); Hematocrit 30.1 % (35-47); Hemoglobin 8.3 gm/dl (12.0-16.0); Lymphocyte (Absolute #) 0.58 (1.0-4.6); Mean Cell Volume 82.7 fl (78-100); Mean Corpuscular Hemoglobin 22.8 pg (26-32); Mean Corpuscular Hgb Concent. 27.6 g/dl (32-36); Mean Platelet Volume 9.9 fl (7.5-11.0); Monocyte (Absolute #) 0.08 (0.0-1.3); Monocytes % 1.4 % (0.0-12.0); Neutrophil % 88.4 % (36.0-66.0); Platelet Count 503 K/mm3 (150-450); Red Blood Count 3.64 M/mm3 (4.1-5.4); Red Cell Distribution Width 21.6 % (11.5-14.0); White Blood Count 5.8 K/mm3 (4.0-10.5)
[2019-10-30 05:27] LABS: ALBUMIN 3.9 g/dL (3.5-5.0); ALKALINE PHOSPHATASE 66 U/L (38-126); ANION GAP 7.7 MEQ/L (5-15); BLOOD UREA NITROGEN 11 mg/dL (7-17); CHLORIDE 105 mmol/L (98-107); Carbon Dioxide 29 mmol/L (22-30); Creatinine 1 0.79 mg/dL (0.52-1.04); EST GLOMERULAR FILTRATION RATE > 60.0 ML/MIN; Glucose 179 mg/dL (74-106); Potassium 4.2 mmol/L (3.5-5.1); SGOT/AST 18 U/L (14-36); SGPT/ALT 15 U/L (0-35); SODIUM 138 mmol/L (137-145); Total Protein 7.3 g/dL (6.3-8.2)
[2019-10-30] MEDS: solu-MEDROL 125 MG IV SCH ×3 (06:24→22:21)
[2019-10-30] MEDS: Advair Hfa 115/21 Common canister IH SCH ×2 (06:45→19:02)
[2019-10-30] MEDS: Sodium Chloride 3 ML UD NEBULES IH SCH ×5 (06:45→23:36)
[2019-10-30] MEDS: Xopenex 1.25 MG/0.5 ML UD NEBULE IH SCH ×5 (06:45→23:34)
[2019-10-30] MEDS ORDERED: VENTOLIN COMMON CANISTER IH PRN (06:47)
[2019-10-30] MEDS ORDERED: Nitrostat 0.4 MG Tablet SL PRN (06:47)
[2019-10-30 06:57] LABS: Slide Review 1 YES
[2019-10-30] MEDS: Nicoderm CQ 21 MG TD SCH (09:02)
[2019-10-30] MEDS: Levofloxacin 500MG/100ML D5W 500 MG/100 ML BAG IV SCH (09:04)
[2019-10-30] MEDS: Neurontin 400 MG PO SCH ×2 (09:06→22:22)
[2019-10-30] MEDS: PROTONIX 40 MG IV IV SCH (09:07)
[2019-10-30] MEDS: Zanaflex 4 MG PO SCH ×3 (09:07→22:22)
[2019-10-30] MEDS: ZOLOFT 50 MG TABLET PO SCH (09:08)
[2019-10-30] MEDS: KLONOPIN PO SCH ×3 (09:08→22:22)
[2019-10-30] MEDS: Pepcid 20 MG PO SCH ×2 (09:08→22:22)
[2019-10-30] MEDS: Seroquel 100 MG PO SCH ×2 (09:08→22:22)
[2019-10-30] MEDS: Imdur 30 MG PO SCH (09:08)
[2019-10-30] MEDS: SYNTHROID 25 MCG PO SCH (09:08)
[2019-10-30] MEDS: THERAGRAN MULTIVITAMIN PO SCH (09:08)
[2019-10-30] MEDS ORDERED: SERTRALINE HCL PO SCH (10:00)
[2019-10-30] MEDS ORDERED: NON-FORMULARY ITEM (Prenatal Vits W-Ca,Fe,Fa(<1mg) [Prenatal] 1 EACH) PO SCH (10:00)
[2019-10-30] MEDS: Tessalon Perles 100 MG PO PRN ×2 (12:07→18:41)
[2019-10-30] MEDS ORDERED: Sodium Chloride 0.9% 1000 ML 1,000 ML ONE (18:34)
[2019-10-30] MEDS ORDERED: Sodium Chloride 0.9% 10 ML FLUSH Syringe IV SCH (22:00)
[2019-10-31] MEDS: Xopenex 1.25 MG/0.5 ML UD NEBULE IH SCH ×3 (03:23→10:55)
[2019-10-31] MEDS: Sodium Chloride 3 ML UD NEBULES IH SCH ×3 (03:25→10:55)
[2019-10-31 03:32] VITALS: O2SAT 98
[2019-10-31] MEDS: Sodium Chloride 0.9% 1000 ML 1,000 ML IV SCH (03:47)
[2019-10-31] MEDS: Advair Hfa 115/21 Common canister IH SCH (06:54)
[2019-10-31 08:01] VITALS: BP 118/56
[2019-10-31] MEDS: Levofloxacin 500MG/100ML D5W 500 MG/100 ML BAG IV SCH (09:05)
[2019-10-31] MEDS: Pepcid 20 MG PO SCH (09:07)
[2019-10-31] MEDS: Imdur 30 MG PO SCH (09:08)
[2019-10-31] MEDS: THERAGRAN MULTIVITAMIN PO SCH (09:08)
[2019-10-31] MEDS: ZOLOFT 50 MG TABLET PO SCH (09:09)
[2019-10-31] MEDS: SYNTHROID 25 MCG PO SCH (09:09)
[2019-10-31] MEDS: Neurontin 400 MG PO SCH (09:10)
[2019-10-31] MEDS: KLONOPIN PO SCH (09:11)
[2019-10-31] MEDS: Zanaflex 4 MG PO SCH (09:12)
[2019-10-31] MEDS: Seroquel 100 MG PO SCH (09:12)
[2019-10-31] MEDS: Nicoderm CQ 21 MG TD SCH (09:13)
[2019-10-31] MEDS: solu-MEDROL 125 MG IV SCH (10:40)
[2019-10-31] MEDS: PROTONIX 40 MG IV IV SCH (10:40)
[2019-10-31 11:02] VITALS: PULSE 92
--- NOTE | 2019-11-11 08:49 | PCM.SSS ---
History of Present Illness - Chief Complaint Chief Complaint: shortness of breath, cough for 2 weeks History of Present Illness: is a 63 year old female.Patient complains of cough for over a week. Patient was tested for COVID this past week and test was negative. Patient's noted to have wheezing throughout. O2 at 98% on 3 liters per n/c. Patient wears home O2 at 3 liters at all times. Patient states her cough is sometimes productive with thick, yellow sputum. Patient has been sick for last 1-2 weeks, patient still smokes 1 ppd Timing/Duration: week(s) Severity of Dyspnea-Max: moderate Severity of Dyspnea-Current: moderate Possible Cause: chronic episodes Modifying Factors: Improves With: albuterol nebulizer Associated Symptoms: cough, loss of appetite, wheezing, productive cough, No chest pain/discomfort, No fever, No chills - Review of Systems Constitutional: No Fever, No Chills Eyes: No Symptoms Ears, Nose, & Throat: No Symptoms Respiratory: Cough, Orthopnea, Short Of Breath, Wheezing Cardiac: Orthopnea, No Chest Pain, No Edema, No Syncope Abdominal/Gastrointestinal: No Abdominal Pain, No Nausea, No Vomiting, No Diarrhea Genitourinary Symptoms: No Dysuria Musculoskeletal: No Back Pain, No Neck Pain Skin: No Rash Neurological: No Dizziness, No Focal Weakness, No Sensory Changes Psychological: No Symptoms Endocrine: No Symptoms Hematologic/Lymphatic: No Symptoms Immunological/Allergic: No Symptoms Medications & Allergies Home Medications: Home Medication List Albuterol/Ipratropium Mdi [Combivent Inhaler] 1 puff IH Q4HWA 12/29/12 [History Confirmed 10/29/19] Clonazepam 0.5 mg [Klonopin 0.5 MG] 2 mg PO TID 12/29/12 [History Confirmed 10/29/19] Famotidine 20 mg [Pepcid 20 MG] 40 mg PO BID 12/29/12 [History Confirmed 10/29/19] Fluticasone/Salmeterol Disc [Advair 250-50 Diskus 14 Dose] 1 puff IH BID 12/29/12 [History Confirmed 10/29/19] Sertraline HCl 100 mg [Zoloft 100 MG] 200 mg PO QAM 12/17/13 [History Confirmed 10/29/19] Isosorbide Mononitrate 30 mg [Imdur 30 MG] 30 mg PO DAILY 11/05/14 [History Confirmed 10/29/19] Gabapentin 1,200 mg PO QAM 01/16/15 [History Confirmed 10/29/19] Tizanidine HCl 4 mg [Zanaflex 4 MG] 4 mg PO TID 01/16/15 [History Confirmed 10/29/19] Levothyroxine Sodium 25 Mcg [Synthroid 25 Mcg] 25 mcg PO DAILY 10/17/15 [History Confirmed 10/29/19] Quetiapine Fumarate [Seroquel] 200 mg PO QAM 10/17/15 [History Confirmed 10/29/19] Vits W-Ca,Fe,FA(<1Mg) [] 1 each PO DAILY 10/18/15 [History Confirmed 10/29/19] Nitroglycerin 0.4 mg Tablet [Nitrostat 0.4 MG Tablet] 0.4 mg SL UD PRN 11/15/15 [History Confirmed 10/29/19] Gabapentin 2,400 mg PO HS 02/21/16 [History Confirmed 10/29/19] Albuterol Common Canister [Ventolin Common Canister] 2 puff IH Q4-6HPRN PRN 07/08/19 [History Confirmed 10/29/19] Quetiapine Fumarate 300 mg PO QHS 07/08/19 [History Confirmed 10/29/19] Nicotine 21 mg [Nicoderm CQ 21 MG] 21 mg TD DAILY #30 patch 07/09/19 [Rx Confirmed 10/29/19] Levofloxacin [Levaquin] 250 mg PO DAILY #5 tablet 10/31/19 [Rx] Methylprednisolone Packet [Medrol Dosepack] 4 mg PO UD #30 packet 10/31/19 [Rx] Allergies/Adverse Reactions: Allergies Allergy/AdvReac Type Severity Reaction Status Date / Time morphine Allergy Severe Fainting Verified 10/29/19 16:35 Penicillins Allergy Verified 10/29/19 16:35 [place] AdvReac Intermediate Headache Verified 10/29/19 16:35 bupropion HCl AdvReac Mild Hives Verified 10/29/19 16:35 [From Wellbutrin] - Past Medical History Past Medical History: Yes Neurological History: Migraines ENT History: No Pertinent History Cardiac History: Congestive Heart Failure, Coronary Artery Disease, High Cholesterol Respiratory History: Asthma, Bronchitis, COPD, Pneumonia Endocrine Medical History: Hypothyroidism Musculoskelatal History: Arthritis GI Medical History: GERD, Hernia, Polyps History: No Pertinent History Pyscho-Social History: Anxiety, Bipolar, Depression Reproductive Disorders: Fibroids Comment: 2 LEAKY VALVES. BORDERLINE PERSONALITY DISORDER, PTSD, manic depressive. bone deficiency - Female History Are you now?: No - Past Surgical History Past Surgical History: Yes Neuro Surgical History: No Pertinent History Cardiac History: Cardiac Catheterization Respiratory Surgery: No Pertinent History GI Surgical History: Other Genitourinary Surgical Hx: No Pertinent History Musculskeletal Surgical Hx: Other Female Surgical History: Section Other Surgical History: ARM SURGERY, 2 c-sections, EGD with dilitation, Colonoscopy, heart cathx2 - Social History Smoking Status: Current every day smoker How long have you smoked: "40 years" Exposure to second hand smoke: Yes Alcohol: None Drug Use: marijuana Significant Family History: no pertinent family hx - Physical Exam General Appearance: mild distress, alert Neurologic Exam: alert, oriented x 3, cooperative, normal mood/affect, nml cerebellar function, nml station & gait, sensation nml, No motor deficits Eye Exam: PERRL/EOMI, eyes nml inspection Ears, Nose, Throat Exam: normal ENT inspection, TMs normal, pharynx normal, moist mucous membranes Neck Exam: normal inspection, non-tender, supple, full range of motion Respiratory Exam: normal breath sounds, diminished breath sounds, rhonchi, wheezing, No respiratory distress Cardiovascular Exam: regular rate/rhythm, normal heart sounds, normal peripheral pulses Gastrointestinal/Abdomen Exam: soft, normal bowel sounds, No tenderness, No mass Back Exam: normal inspection, normal range of motion, No CVA tenderness, No vertebral tenderness Extremity Exam: normal inspection, normal range of motion, pelvis stable Skin Exam: normal color, warm, dry, No rash Lymphatic Exam: No adenopathy Results - Labs Lab/Micro Results: Microbiology 10/29/19 17:30 Blood Culture Gram Stain - Final Blood Not Reportable Blood Culture - Final NO GROWTH 10/29/19 17:25 Blood Culture Gram Stain - Final Blood Not Reportable Blood Culture - Final NO GROWTH 10/30/19 Unknown Gram Stain - Final Sputum - Expectorant Sputum Culture - Final Pseudomonas Aeruginosa Assessment/Plan (1) Bronchitis Status: Acute Code(s): J40 - BRONCHITIS, NOT SPECIFIED ACUTE OR CHRONIC (2) COPD (chronic obstructive pulmonary disease) Status: Acute Qualifiers: COPD type: COPD with acute lower respiratory infection Qualified Code(s): J44.0 - Chronic obstructive pulmonary disease with (acute) lower respiratory infection Assessment & Plan: Medication Report Discontinued Medications Albuterol/Ipratropium (Duoneb 0.5-3 Mg/3 Ml Neb) 3 ml IH Q4HPRN PRN PRN Reason: SHORTNESS OF BREATH/WHEEZING Stop: 11/29/19 04:39 Last Admin: 10/30/19 04:47 Dose: 3 ml Documented by: ANIYA Nebulizer Treatment Document 10/30/19 04:47 DP (Rec: 10/30/19 04:47 DP [email or web address]) Therapy Aerosol Therapy Initial Aerosol Therapy Treatment Method Nebulizer,Mask Treatment Tolerance Good Benzonatate (Tessalon Perles 100 Mg) 200 mg PO TID PRN PRN PRN Reason: COUGH Stop: 11/29/19 11:57 Last Admin: 10/30/19 18:41 Dose: 200 mg Documented by: EDILMA Clonazepam (Klonopin) 2 mg PO TID [facility] Stop: 11/28/19 21:59 Last Admin: 10/31/19 09:11 Dose: 2 mg Documented by: VEL Famotidine (Pepcid 20 Mg Vial) 20 mg IV Q12HT [facility] Stop: 11/28/19 21:59 Last Admin: 10/29/19 22:24 Dose: 20 mg Documented by: KIMBERLY Famotidine (Famotidine 10mg Tablet) 40 mg PO BID [facility] Stop: 11/28/19 21:59 Last Admin: 10/29/19 23:37 Dose: Not Given Documented by: KIMBERLY Non-Admin Reason: given IV as MD ordered on transfer Famotidine (Pepcid 20 Mg) 40 mg PO BID [facility] Stop: 11/29/19 09:59 Last Admin: 10/31/19 09:07 Dose: 40 mg Documented by: VEL Gabapentin (Neurontin 400 Mg) 2,400 mg PO HS [facility] Stop: 11/28/19 21:59 Last Admin: 10/30/19 22:22 Dose: 2,400 mg Documented by: MOHINI Gabapentin (Neurontin 400 Mg) 1,200 mg PO QAM [facility] Stop: 11/29/19 09:59 Last Admin: 10/31/19 09:10 Dose: 1,200 mg Documented by: VEL Sodium Chloride (Sodium Chloride 0.9% 1000 Ml) 1,000 mls @ 999 mls/hr IV .Q1H1M STA Stop: 10/29/19 18:01 Last Admin: 10/29/19 17:13 Dose: 999 mls/hr Documented by: VILMA Med Admininistration (IV,IVP) Document 10/29/19 17:13 TR (Rec: 10/29/19 17:15 TR [id number]) Type of Administration Initial IV Push No Infusion/Titration Document 10/29/19 17:13 TR (Rec: 10/29/19 17:15 TR [id number]) Dosing & Rate IV Rate 999 Increase/Decrease Started Cumulative Dose Not Applicable IV Intake Container Volume 1,000 Volume Adjustment/Waste 0 Sodium Chloride (Sodium Chloride 0.9% 1000 Ml) 1,000 mls @ 100 mls/hr IV .Q10H [facility] Stop: 11/28/19 18:18 Last Admin: 10/30/19 04:45 Dose: 100 mls/hr Documented by: MSTUPPY Infusion/Titration Document 10/30/19 04:45 MS (Rec: 10/30/19 04:45 MS [id number]) Dosing & Rate IV Rate 100 Increase/Decrease Started/Running Cumulative Dose Not Applicable IV Intake Cumulative Intake (Rx) 1,000 Container Volume 1,000 Volume Adjustment/Waste 0 Levofloxacin/Dextrose (Levofloxacin 500mg/100ml D5w) 500 mg in 100 mls @ 100 mls/hr IV Q24H10 [facility] Stop: 11/29/19 09:59 Last Admin: 10/31/19 09:05 Dose: 100 mls/hr Documented by: VEL Sodium Chloride (Sodium Chloride 0.9% 1000 Ml) 1,000 mls @ 100 mls/hr IV .Q10H [facility] Stop: 11/29/19 18:44 Last Admin: 10/31/19 03:47 Dose: 100 mls/hr Documented by: MATTOULD Infusion/Titration Document 10/31/19 03:47 SG (Rec: 10/31/19 03:48 SG [id number]) Dosing & Rate IV Rate 100 Increase/Decrease Started/Running Cumulative Dose Not Applicable IV Intake Cumulative Intake (Rx) 1,000 Container Volume 1,000 Volume Adjustment/Waste 0 Isosorbide Mononitrate (Imdur 30 Mg) 30 mg PO DAILY [facility] Stop: 11/29/19 09:59 Last Admin: 10/31/19 09:08 Dose: 30 mg Documented by: VEL Levalbuterol HCl (Xopenex 1.25 Mg/0.5 Ml Ud Nebule) 1.25 mg IH STAT ONE Stop: 10/29/19 17:02 Last Admin: 10/29/19 17:29 Dose: 1.25 mg Documented by: KERENFE Nebulizer Treatment Document 10/29/19 17:29 TW (Rec: 10/29/19 17:29 TW [id number]) Therapy Aerosol Therapy Initial Aerosol Therapy Treatment Method Nebulizer,Mask Treatment Tolerance Good Supplies Nebulizer Yes Aerosal Mask Yes Levalbuterol HCl (Xopenex 1.25 Mg/0.5 Ml Ud Nebule) 1.25 mg IH QIDRT [facility] Stop: 11/28/19 18:59 Last Admin: 10/30/19 10:54 Dose: 1.25 mg Documented by: LCOMPTON Nebulizer Treatment Document 10/30/19 10:54 LCOMPTON (Rec: 10/30/19 10:54 LCOMPTON [email or web address]) Therapy Aerosol Therapy Subsequent Aerosol Therapy Treatment Method Nebulizer,Mask Treatment Tolerance Good Levalbuterol HCl (Xopenex 1.25 Mg/0.5 Ml Ud Nebule) 1.25 mg IH Q4HRT [facility] Stop: 11/29/19 14:59 Last Admin: 10/31/19 10:55 Dose: 1.25 mg Documented by: KSMITH Nebulizer Treatment Document 10/31/19 10:55 KS (Rec: 10/31/19 10:55 KS [email or web address]) Therapy Aerosol Therapy Subsequent Aerosol Therapy Treatment Method Nebulizer,Mask Treatment Tolerance Good Levothyroxine Sodium (Synthroid 25 Mcg) 25 mcg PO DAILY [facility] Stop: 11/29/19 09:59 Last Admin: 10/31/19 09:09 Dose: 25 mcg Documented by: VEL Methylprednisolone Sodium Succinate (Solu-Medrol 125 Mg) 80 mg IV Q6H [facility] Stop: 11/28/19 18:18 Last Admin: 10/30/19 11:23 Dose: 80 mg Documented by: JAGJIT Methylprednisolone Sodium Succinate (Solu-Medrol 125 Mg) 80 mg IV Q12HT [facility] Stop: 11/29/19 21:59 Last Admin: 10/31/19 10:40 Dose: 80 mg Documented by: GAGE Multivitamins Therapeutic (Theragran Multivitamin) 1 tab PO DAILY [facility] Stop: 11/29/19 09:59 Last Admin: 10/31/19 09:08 Dose: 1 tab Documented by: VEL Nicotine (Nicoderm Cq 21 Mg) 21 mg TD DAILY [facility] Stop: 11/29/19 09:59 Last Admin: 10/31/19 09:13 Dose: 21 mg Documented by: VEL Pantoprazole Sodium (Protonix 40 Mg Iv) 40 mg IV Q24H10 [facility] Stop: 11/29/19 09:59 Last Admin: 10/31/19 10:40 Dose: 40 mg Documented by: GAGE Quetiapine Fumarate (Seroquel 100 Mg) 300 mg PO HS [facility] Stop: 11/28/19 21:59 Last Admin: 10/30/19 22:22 Dose: 300 mg Documented by: MOHINI Quetiapine Fumarate (Seroquel 100 Mg) 200 mg PO QAM [facility] Stop: 11/29/19 09:59 Last Admin: 10/31/19 09:12 Dose: 200 mg Documented by: VEL Fluticasone/Salmeterol (Advair Hfa 115/21 Common Canister*) 2 puff IH BIDRT [facility] Stop: 11/28/19 18:59 Last Admin: 10/31/19 06:54 Dose: 2 puff Documented by: JULIUS Olivera MDI Document 10/31/19 06:54 JULIUS (Rec: 10/31/19 07:02 JULIUS [email or web address]) MDI MDI Subsequent MDI Advair 115/ 2 Puffs Spacer Used Yes Rinsed Mouth After MDI-RT Yes Sertraline HCl (Zoloft 50 Mg Tablet) 200 mg PO QAM [facility] Stop: 11/29/19 09:59 Last Admin: 10/31/19 09:09 Dose: 200 mg Documented by: VEL Sodium Chloride (Sodium Chloride 3 Ml Ud Nebules) 3 ml IH QIDRT [facility] Stop: 11/29/19 06:59 Last Admin: 10/30/19 10:54 Dose: 3 ml Documented by: JULIUS Sodium Chloride (Sodium Chloride 3 Ml Ud Nebules) 3 ml IH Q4HRT [facility] Stop: 11/29/19 14:59 Last Admin: 10/31/19 10:55 Dose: 3 ml Documented by: BINDU Sodium Chloride (Sodium Chloride 0.9% 10 Ml Flush Syringe) 10 ml IV Q8HT [facility] Stop: 11/29/19 21:59 Last Admin: 10/30/19 22:22 Dose: 10 ml Documented by: PTHOMLINSO Tizanidine HCl (Zanaflex 4 Mg) 4 mg PO TID [facility] Stop: 11/28/19 21:59 Last Admin: 10/31/19 09:12 Dose: 4 mg Documented by: VEL (3) COPD with acute exacerbation Status: Acute Code(s): J44.1 - CHRONIC OBSTRUCTIVE PULMONARY DISEASE W (ACUTE) EXACERBATION (4) Anemia Status: Chronic Qualifiers: Anemia type: iron deficiency Iron deficiency anemia type: other iron deficiency Qualified Code(s): D50.8 - Other iron deficiency anemias Code(s): D64.9 - ANEMIA, UNSPECIFIED Hospital Summary - Hospital Course Hospital Course: Chief Complaint Diagnosis COPD exacerbation, anemia Allergies Allergy/AdvReac Type Severity Reaction Status Date / Time morphine Allergy Severe Fainting Verified 10/29/19 16:35 Penicillins Allergy Verified 10/29/19 16:35 [place] AdvReac Intermediate Headache Verified 10/29/19 16:35 bupropion HCl AdvReac Mild Hives Verified 10/29/19 16:35 [From Wellbutrin] Home Medications Medication Instructions Recorded Confirmed Last Taken Type Levofloxacin [Levaquin] 250 mg PO DAILY #5 tablet 10/31/19 Unknown Rx Methylprednisolone Packet 4 mg PO UD #30 packet 10/31/19 Unknown Rx [Medrol Dosepack] Current Medications Discontinued Medications Generic Name Dose Route Start Last Admin Trade Name Freq PRN Reason Stop Dose Admin Albuterol Sulfate 2 puff 10/30/19 06:47 Ventolin Common Canister IH 11/29/19 06:46 Q4H PRN PRN SHORTNESS OF BREATH Albuterol/Ipratropium 3 ml 10/30/19 04:40 10/30/19 04:47 Duoneb 0.5-3 Mg/3 Ml Neb IH 11/29/19 04:39 3 ml Q4HPRN PRN Administration SHORTNESS OF BREATH/WHEEZING Benzonatate 200 mg 10/30/19 11:58 10/30/19 18:41 Tessalon Perles 100 Mg PO 11/29/19 11:57 200 mg TID PRN PRN Administration COUGH Clonazepam 2 mg 10/29/19 22:00 10/31/19 09:11 Klonopin PO 11/28/19 21:59 2 mg TID [facility] Administration Famotidine 20 mg 10/29/19 22:00 10/29/19 22:24 Pepcid 20 Mg Vial IV 11/28/19 21:59 20 mg Q12HT [facility] Administration Famotidine 40 mg 10/29/19 22:00 10/29/19 23:37 Famotidine 10mg Tablet PO 11/28/19 21:59 Not Given BID [facility] Famotidine 40 mg 10/30/19 10:00 10/31/19 09:07 Pepcid 20 Mg PO 11/29/19 09:59 40 mg BID [facility] Administration Gabapentin 2,400 mg 10/29/19 22:00 10/30/19 22:22 Neurontin 400 Mg PO 11/28/19 21:59 2,400 mg HS [facility] Administration Gabapentin 1,200 mg 10/30/19 10:00 10/31/19 09:10 Neurontin 400 Mg PO 11/29/19 09:59 1,200 mg QAM [facility] Administration Sodium Chloride 1,000 mls @ 999 mls/hr 10/29/19 17:01 10/29/19 17:13 Sodium Chloride 0.9% 1000 Ml IV 10/29/19 18:01 999 mls/hr .Q1H1M STA Administration Sodium Chloride Confirm 10/29/19 17:09 Sodium Chloride 0.9% 1000 Ml Administered 10/29/19 17:10 Dose 1,000 mls @ ud .ROUTE .STK-MED ONE Sodium Chloride 1,000 mls @ 100 mls/hr 10/29/19 18:19 10/30/19 04:45 Sodium Chloride 0.9% 1000 Ml IV 11/28/19 18:18 100 mls/hr .Q10H [facility] Administration Levofloxacin/Dextrose 500 mg in 100 mls @ 100 mls/hr 10/30/19 10:00 10/31/19 09:05 Levofloxacin 500mg/100ml D5w IV 11/29/19 09:59 100 mls/hr Q24H10 [facility] Administration Sodium Chloride Confirm 10/30/19 18:34 Sodium Chloride 0.9% 1000 Ml Administered 10/30/19 18:35 Dose 1,000 mls @ ud .ROUTE .STK-MED ONE Sodium Chloride 1,000 mls @ 100 mls/hr 10/30/19 18:45 10/31/19 03:47 Sodium Chloride 0.9% 1000 Ml IV 11/29/19 18:44 100 mls/hr .Q10H [facility] Administration Isosorbide Mononitrate 30 mg 10/30/19 10:00 10/31/19 09:08 Imdur 30 Mg PO 11/29/19 09:59 30 mg DAILY [facility] Administration Levalbuterol HCl 1.25 mg 10/29/19 17:01 10/29/19 17:29 Xopenex 1.25 Mg/0.5 Ml Ud Nebule IH 10/29/19 17:02 1.25 mg STAT ONE Administration Levalbuterol HCl Confirm 10/29/19 17:10 Xopenex 1.25 Mg/0.5 Ml Ud Nebule Administered 10/29/19 17:11 Dose 1.25 mg IH .STK-MED ONE Levalbuterol HCl 1.25 mg 10/29/19 22:00 Xopenex 1.25 Mg/0.5 Ml Ud Nebule IH 11/28/19 21:59 QID [facility] Levalbuterol HCl 1.25 mg 10/29/19 19:00 10/30/19 10:54 Xopenex 1.25 Mg/0.5 Ml Ud Nebule IH 11/28/19 18:59 1.25 mg QIDRT [facility] Administration Levalbuterol HCl 1.25 mg 10/30/19 15:00 10/31/19 10:55 Xopenex 1.25 Mg/0.5 Ml Ud Nebule IH 11/29/19 14:59 1.25 mg Q4HRT [facility] Administration Levothyroxine Sodium 25 mcg 10/30/19 10:00 10/31/19 09:09 Synthroid 25 Mcg PO 11/29/19 09:59 25 mcg DAILY [facility] Administration Methylprednisolone Sodium Succinate 80 mg 10/29/19 18:19 10/30/19 11:23 Solu-Medrol 125 Mg IV 11/28/19 18:18 80 mg Q6H [facility] Administration Methylprednisolone Sodium Succinate 80 mg 10/30/19 22:00 10/31/19 10:40 Solu-Medrol 125 Mg IV 11/29/19 21:59 80 mg Q12HT [facility] Administration Multivitamins Therapeutic 1 tab 10/30/19 10:00 10/31/19 09:08 Theragran Multivitamin PO 11/29/19 09:59 1 tab DAILY [facility] Administration Nicotine 21 mg 10/30/19 10:00 10/31/19 09:13 Nicoderm Cq 21 Mg TD 11/29/19 09:59 21 mg DAILY [facility] Administration Nitroglycerin 0.4 mg 10/30/19 06:47 Nitrostat 0.4 Mg Tablet SL 11/29/19 06:46 UD PRN CHEST PAIN Pantoprazole Sodium 40 mg 10/30/19 10:00 10/31/19 10:40 Protonix 40 Mg Iv IV 11/29/19 09:59 40 mg Q24H10 [facility] Administration Quetiapine Fumarate 300 mg 10/29/19 22:00 10/30/19 22:22 Seroquel 100 Mg PO 11/28/19 21:59 300 mg HS [facility] Administration Quetiapine Fumarate 200 mg 10/30/19 10:00 09/01/20 09:12 Seroquel 100 Mg PO 11/29/19 09:59 200 mg QAM [facility] Administration Fluticasone/Salmeterol 2 puff 10/29/19 19:00 10/31/19 06:54 Advair Hfa 115/21 Common Canister* IH 11/28/19 18:59 2 puff BIDRT [facility] Administration Sertraline HCl 200 mg 10/30/19 10:00 10/31/19 09:09 Zoloft 50 Mg Tablet PO 11/29/19 09:59 200 mg QAM [facility] Administration Sodium Chloride Confirm 10/29/19 17:10 Sodium Chloride 3 Ml Ud Nebules Administered 10/29/19 17:11 Dose 3 ml IH .STK-MED ONE Sodium Chloride Confirm 10/29/19 20:42 Sodium Chloride 3 Ml Ud Nebules Administered 10/29/19 20:43 Dose 3 ml IH .STK-MED ONE Sodium Chloride 3 ml 10/30/19 07:00 10/30/19 10:54 Sodium Chloride 3 Ml Ud Nebules IH 11/29/19 06:59 3 ml QIDRT [facility] Administration Sodium Chloride 3 ml 10/30/19 15:00 10/31/19 10:55 Sodium Chloride 3 Ml Ud Nebules IH 11/29/19 14:59 3 ml Q4HRT [facility] Administration Sodium Chloride 10 ml 10/30/19 22:00 10/30/19 22:22 Sodium Chloride 0.9% 10 Ml Flush Syringe IV 11/29/19 21:59 10 ml Q8HT [facility] Administration Tizanidine HCl 4 mg 10/29/19 22:00 10/31/19 09:12 Zanaflex 4 Mg PO 11/28/19 21:59 4 mg TID [facility] Administration - Vitals & Intake/Output Vital Signs: Vital Signs Temperature 97.5 F 10/31/19 08:00 Pulse Rate 92 H 10/31/19 10:56 Respiratory Rate 24 10/31/19 10:56 Blood Pressure 118/56 10/31/19 08:00 O2 Sat by Pulse Oximetry 98 10/31/19 08:00 - Lab Result Diagrams: 10/30/19 04:32 10/30/19 05:00 Micro Results-Entire Visit: Microbiology 10/29/19 17:30 Blood Culture Gram Stain - Final Blood Not Reportable Blood Culture - Final NO GROWTH 10/29/19 17:25 Blood Culture Gram Stain - Final Blood Not Reportable Blood Culture - Final NO GROWTH 10/30/19 Unknown Gram Stain - Final Sputum - Expectorant Sputum Culture - Final Pseudomonas Aeruginosa - Procedures and Test Procedures and Tests throughout Hospitalization: Therapy Orders & Screens 10/29/19 17:29 Respiratory Therapy Assessment DAILY Comment: 10/29/19 18:19 Oxygen Nasal Cannula 3 lpm Comment: Respiratory Therapy Consult ROUTINE Comment: Reason For Exam: 10/29/19 20:40 Smoking Cessation Education ONCE Comment: Diagnosis: COPD exacerbation, anemia Smoking Status: Current every day smoker How long have you smoked: "40 years" Have you smoked in the past 12 months: Yes Approximately how many cigarettes per day: 0.5 pack per day Do you dip or chew tobacco: No 10/29/19 20:51 Respiratory Therapy Assessment DAILY Comment: Diagnosis: COPD exacerbation, anemia 10/30/19 07:00 Peak Expiratory Flow Rate ONCE Comment: Reason For Exam: Diagnosis: COPD exacerbation, anemia 10/30/19 12:43 PT Eval & Treat (MD Order) ROUTINE Reason for Eval:: WEAKNESS, PATIENT REQUESTING WALKER Diagnosis: COPD exacerbation, anemia - Discharge Discharge Date: 10/31/19 Disposition: Home, Self-Care Condition: Stable Prescriptions: New Levofloxacin [Levaquin] 250 mg PO DAILY #5 tablet Methylprednisolone Packet [Medrol Dosepack] 4 mg PO UD #30 packet Continue Clonazepam 0.5 mg [Klonopin 0.5 MG] 2 mg PO TID Fluticasone/Salmeterol Disc [Advair 250-50 Diskus 14 Dose] 1 puff IH BID Famotidine 20 mg [Pepcid 20 MG] 40 mg PO BID Albuterol/Ipratropium Mdi [Combivent Inhaler] 1 puff IH Q4HWA Sertraline HCl 100 mg [Zoloft 100 MG] 200 mg PO QAM Isosorbide Mononitrate 30 mg [Imdur 30 MG] 30 mg PO DAILY Gabapentin 1,200 mg PO QAM Tizanidine HCl 4 mg [Zanaflex 4 MG] 4 mg PO TID Levothyroxine Sodium 25 Mcg [Synthroid 25 Mcg] 25 mcg PO DAILY Quetiapine Fumarate [Seroquel] 200 mg PO QAM Vits W-Ca,Fe,FA(<1Mg) [] 1 each PO DAILY Nitroglycerin 0.4 mg Tablet [Nitrostat 0.4 MG Tablet] 0.4 mg SL UD PRN PRN Reason: Chest Pain Gabapentin 2,400 mg PO HS Albuterol Common Canister [Ventolin Common Canister] 2 puff IH Q4-6HPRN PRN PRN Reason: Shortness Of Breath Quetiapine Fumarate 300 mg PO QHS Nicotine 21 mg [Nicoderm CQ 21 MG] 21 mg TD DAILY #30 patch Instructions: Chronic Obstructive Pulmonary Disease (COPD) (DC) Additional Instructions: [facility] WILL BE DELIVERING YOUR WALKER. THEIR PHONE NUMBER IS [phone]. [facility] WILL BE CALLING YOU TO DISCUSS YOUR NEED FOR HOME DELIVERED MEALS. THEIR PHONE NUMBER IS Follow up with: WEN CAMERON MD [Primary Care Provider] - 11/07/19 3:15 pm (KEEP YOUR FOLLOWUP APPOINTMENT AT [facility] ON Wednesday AT 3:15 PM.) Forms: Discharge Instructions
== END 2019-10-31 12:05 | disposition home or self-care (01) ==
LOC: ED 16:25 → MED SURG 18:00
PROVIDERS: ADMIT General Practice; ATTEND General Practice
DX: J40 Bronchitis, not specified as acute or chronic (principal); J44.1 Chronic obstructive pulmonary disease with (acute) exacerbation; R05 Cough; R06.2 Wheezing; E78.00 Pure hypercholesterolemia, unspecified; R26.2 Difficulty in walking, not elsewhere classified; E03.9 Hypothyroidism, unspecified; Z86.79 Personal history of other diseases of the circulatory system; D50.9 Iron deficiency anemia, unspecified; Z79.899 Other long term (current) drug therapy
CPT/HCPCS: 36415; 71046; 80053; 83605; 85025; 87040; 87070; 87077; 87186; 87651; 93005; 93041; 93268; 94150; 94640; 94760; 97161; 99285; G0378; J1956; J2930; A9270-GY

== ENCOUNTER 2019-12-02 18:10 | Emergency (ER) | payer MEDICARE ==
[2019-12-02] MEDS ORDERED: solu-MEDROL 125 MG IM ONE (18:21)
[2019-12-02] MEDS ORDERED: DUONEB 0.5-3 MG/3 ml Neb IH ONE ×2 (18:21→18:35)
[2019-12-02] MEDS ORDERED: PULMICORT 0.5 MG/2 ML RESPULES IH ONE ×2 (18:24→18:47)
[2019-12-02] MEDS ORDERED: solu-MEDROL 125 MG IV ONE (18:39)
[2019-12-02] MEDS ORDERED: solu-MEDROL 125 MG ONE (18:40)
--- NOTE | 2019-12-02 18:51 | ERPHSYRPT ---
- History of Present Illness Time Seen by Provider: 12/02/19 18:49 Exam Limitations: no limitations Patient Subjective Stated Complaint: pt here for increase sob for a week now, with productive cough . Triage Nursing Assessment: pt walked, home O2 on 3l nc , resp easy, skin w/d/p. face mask applied. moves all ext well, Physician History: pt here for increase sob for a week now, with productive cough . Possible Cause: frequent episodes Associated Symptoms: cough, wheezing Allergies/Adverse Reactions: morphine Allergy (Severe, Verified 12/02/19 18:30) Fainting Penicillins Allergy (Verified 12/02/19 18:30) Coconut Adverse Reaction (Intermediate, Verified 12/02/19 18:30) Headache bupropion HCl [From Wellbutrin] Adverse Reaction (Mild, Verified 12/02/19 18:30) Hives Home Medications: Albuterol/Ipratropium Mdi [Combivent Inhaler] 1 puff IH Q4HWA 12/29/12 [History] Clonazepam 0.5 mg [Klonopin 0.5 MG] 2 mg PO TID 12/29/12 [History] Famotidine 20 mg [Pepcid 20 MG] 40 mg PO BID 12/29/12 [History] Fluticasone/Salmeterol Disc [Advair 250-50 Diskus 14 Dose] 1 puff IH BID 12/29/12 [History] Sertraline HCl 100 mg [Zoloft 100 MG] 200 mg PO QAM 12/17/13 [History] Isosorbide Mononitrate 30 mg [Imdur 30 MG] 30 mg PO DAILY 11/05/14 [History] Gabapentin 1,200 mg PO QAM 01/16/15 [History] Tizanidine HCl 4 mg [Zanaflex 4 MG] 4 mg PO TID 01/16/15 [History] Levothyroxine Sodium 25 Mcg [Synthroid 25 Mcg] 25 mcg PO DAILY 10/17/15 [History] Quetiapine Fumarate [Seroquel] 200 mg PO QAM 10/17/15 [History] Vits W-Ca,Fe,FA(<1Mg) [] 1 each PO DAILY 10/18/15 [History] Nitroglycerin 0.4 mg Tablet [Nitrostat 0.4 MG Tablet] 0.4 mg SL UD PRN 11/15/15 [History] Gabapentin 2,400 mg PO HS 02/21/16 [History] Albuterol Common Canister [Ventolin Common Canister] 2 puff IH Q4-6HPRN PRN 07/08/19 [History] Quetiapine Fumarate 300 mg PO QHS 07/08/19 [History] predniSONE [Prednisone] 1 ea BID 12/02/19 [History] Hx Tetanus, Diphtheria Vaccination/Date Given: Yes (unknown) Hx Influenza Vaccination/Date Given: No Hx Pneumococcal Vaccination/Date Given: No Immunizations Up to Date: Yes Travel Risk - International Travel Have you traveled outside of the country in past 3 weeks: No - Coronavirus Screening Are you exhibiting any of the following symptoms?: No Close contact with a COVID-19 positive Pt in past 14-21 Days: No - Review of Systems Constitutional: No Fever, No Chills Eyes: No Symptoms Ears, Nose, & Throat: No Symptoms Respiratory: Dyspnea, Dyspnea on Exertion (SCOTT), Wheezing Cardiac: No Chest Pain, No Edema, No Syncope Abdominal/Gastrointestinal: No Abdominal Pain, No Nausea, No Vomiting, No Diarrhea Genitourinary Symptoms: No Dysuria Musculoskeletal: No Back Pain, No Neck Pain Skin: No Rash Neurological: No Dizziness, No Focal Weakness, No Sensory Changes Psychological: No Symptoms Endocrine: No Symptoms All Other Systems: Reviewed and Negative - Past Medical History Pertinent Past Medical History: Yes Neurological History: Migraines ENT History: No Pertinent History Cardiac History: Congestive Heart Failure, Coronary Artery Disease, High Cholesterol Respiratory History: Asthma, Bronchitis, COPD, Pneumonia Endocrine Medical History: Hypothyroidism Musculoskeletal History: Arthritis GI Medical History: GERD, Hernia, Polyps History: No Pertinent History Psycho-Social History: Anxiety, Bipolar, Depression Female Reproductive Disorders: Fibroids Other Medical History: 2 LEAKY VALVES. BORDERLINE PERSONALITY DISORDER, PTSD, manic depressive. bone deficiency - Past Surgical History Past Surgical History: Yes Neuro Surgical History: No Pertinent History Cardiac: Cardiac Catheterization Respiratory: No Pertinent History Gastrointestinal: Other Genitourinary: No Pertinent History Musculoskeletal: Other Female Surgical History: Section Other Surgical History: ARM SURGERY, 2 c-sections, EGD with dilitation, Colonos copy, heart cathx2 - Social History Smoking Status: Current every day smoker How long have you smoked: "40 years" Exposure to second hand smoke: Yes Alcohol Use: Socially Drug Use: marijuana Patient Lives Alone: No Significant Family History: no pertinent family hx - Female History Hx Last Menstrual Period: post - Nursing Vital Signs Nursing Vital Signs: Initial Vital Signs Temperature 98.1 F 12/02/19 18:18 Pulse Rate 115 H 12/02/19 18:18 Respiratory Rate 24 12/02/19 18:18 Blood Pressure 110/84 12/02/19 18:18 O2 Sat by Pulse Oximetry 94 L 12/02/19 18:18 Pain Scale Pain Intensity 0 - Physical Exam General Appearance: no apparent distress, alert Eye Exam: PERRL/EOMI Neck Exam: normal inspection, supple Respiratory Exam: rhonchi, wheezing Cardiovascular/Chest Exam: normal heart sounds, regular rate/rhythm Abdominal/Gastrointestinal Exam: soft, No tenderness, No distention, No mass Extremity Exam: non-tender, normal range of motion, normal inspection, no calf tenderness, no pedal edema Neurologic Exam: alert, oriented x 3, cooperative, 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 tested, sensation nml, No motor deficits Skin Exam: normal color, warm, No dry SpO2 Interpretation: borderline oxygenation SpO2: 94 O2 Delivery: Nasal Cannula - Course Nursing assessment & vital signs reviewed: Yes EKG Interpreted by Me: Non-specific ST Changes - Radiology Exams Chest X-ray Interpretation: Reviewed by me Ordered Tests: Active Orders 24 hr Category Date Time Status Cullet Trucker STAT Care 12/02/19 18:35 Active EKG-ER Only STAT Care 12/02/19 18:21 Active IV Insertion STAT Care 12/02/19 18:34 Active CHEST 2 VIEWS (PA AND LAT) Stat Exams 12/02/19 18:22 Ordered CBC W DIFF Stat Lab 12/02/19 18:47 Completed CMP Stat Lab 12/02/19 18:47 Received Respiratory Therapy Assessment DAILY RT 12/02/19 19:03 Active Medication Summary Generic Name Dose Route Start Last Admin Trade Name Freq PRN Reason Stop Dose Admin Ceftriaxone Sodium/Dextrose 1 g in 50 mls @ 100 mls/hr 12/02/19 18:56 12/02/19 18:59 Rocephin 1 Gm-D5w 50 Ml Bag IV 12/02/19 19:25 100 ml/hr STAT STA 100 mls/hr Administration Discontinued Medications Generic Name Dose Route Start Last Admin Trade Name Yordan PRN Reason Stop Dose Admin Albuterol/Ipratropium 3 ml 12/02/19 18:21 12/02/19 18:48 Duoneb 0.5-3 Mg/3 Ml Neb IH 12/02/19 18:22 3 ml STAT ONE Administration Albuterol/Ipratropium Confirm 12/02/19 18:35 Duoneb 0.5-3 Mg/3 Ml Neb Administered 12/02/19 18:36 Dose 3 ml IH .STK-MED ONE Budesonide 0.5 mg 12/02/19 18:24 12/02/19 18:52 Pulmicort 0.5 Mg/2 Ml Respules IH 12/02/19 18:25 0.5 mg ONCE ONE Administration Budesonide Confirm 12/02/19 18:47 Pulmicort 0.5 Mg/2 Ml Respules Administered 12/02/19 18:48 Dose 0.5 mg IH .STK-MED ONE Ceftriaxone Sodium 1,000 mg 12/02/19 18:53 12/02/19 18:56 Rocephin 1000 Mg Inj IM 12/02/19 18:54 Not Given STAT ONE Ceftriaxone Sodium/Dextrose Confirm 12/02/19 18:58 Rocephin 1 Gm-D5w 50 Ml Bag Administered 12/02/19 18:59 Dose 1 g in 50 mls @ ud IV .STK-MED ONE Methylprednisolone Sodium Succinate 125 mg 12/02/19 18:21 12/02/19 18:38 Solu-Medrol 125 Mg IM 12/02/19 18:22 Not Given STAT ONE Methylprednisolone Sodium Succinate 125 mg 12/02/19 18:39 12/02/19 18:48 Solu-Medrol 125 Mg IV 12/02/19 18:40 125 mg STAT ONE Administration Methylprednisolone Sodium Succinate Confirm 12/02/19 18:40 Solu-Medrol 125 Mg Administered 12/02/19 18:41 Dose 125 mg .ROUTE .STK-MED ONE Lab/Rad Data: Laboratory Result Diagrams 12/02/19 18:47 Laboratory Results 12/02/19 Range/Units 18:47 WBC 12.8 H (4.0-10.5) K/mm3 RBC 3.80 L (4.1-5.4) M/mm3 Hgb 9.0 L (12.0-16.0) gm/dl Hct 31.3 L (35-47) % MCV 82.4 (78-100) fl MCH 23.7 L (26-32) pg MCHC 28.8 L (32-36) g/dl RDW 21.5 H (11.5-14.0) % Plt Count 479 H (150-450) K/mm3 MPV 9.3 (7.5-11.0) fl Gran % 85.2 H (36.0-66.0) % Eos # (Auto) 0.04 (0-0.5) Absolute Lymphs (auto) 1.25 (1.0-4.6) Absolute Monos (auto) 0.56 (0.0-1.3) Lymphocytes % 9.8 L (24.0-44.0) % Monocytes % 4.4 (0.0-12.0) % Eosinophils % 0.3 (0.00-5.0) % Basophils % 0.3 (0.0-0.4) % Absolute Granulocytes 10.86 H (1.4-6.9) Basophils # 0.04 (0-0.4) - Progress Progress: improved Air Movement: good Counseled pt/family regarding: lab results, need for follow-up, rad results - Departure Clinical Impression: COPD with acute exacerbation Condition: Stable Critical Care Time: No Referrals: WEN CAMERON MD [Primary Care Provider] - Instructions: Chronic Obstructive Pulmonary Disease Prescriptions: Cephalexin Mh 500 mg [Keflex 500 mg] 500 mg PO Q6H #40 capsule
[2019-12-02] MEDS ORDERED: Rocephin 1000 MG INJ IM ONE (18:53)
[2019-12-02 18:56] LABS: Absolute Neutrophil Ct (ANC) 10.86 (1.4-6.9); BASOPHIL % 0.3 % (0.0-0.4); Basophil (Absolute #) 0.04 (0-0.4); Eosinophil % 0.3 % (0.00-5.0); Eosinophil (Absolute #) 0.04 (0-0.5); Hematocrit 31.3 % (35-47); Lymphocyte (Absolute #) 1.25 (1.0-4.6); Lymphocytes % 9.8 % (24.0-44.0); Mean Cell Volume 82.4 fl (78-100); Mean Corpuscular Hemoglobin 23.7 pg (26-32); Mean Corpuscular Hgb Concent. 28.8 g/dl (32-36); Mean Platelet Volume 9.3 fl (7.5-11.0); Monocyte (Absolute #) 0.56 (0.0-1.3); Monocytes % 4.4 % (0.0-12.0); Neutrophil % 85.2 % (36.0-66.0); Platelet Count 479 K/mm3 (150-450); Red Cell Distribution Width 21.5 % (11.5-14.0); White Blood Count 12.8 K/mm3 (4.0-10.5)
[2019-12-02] MEDS ORDERED: ROCEPHIN 1 Gm-D5w 50 ml Bag** 1 G/50 ML IVPB IV STA (18:56)
[2019-12-02] MEDS ORDERED: ROCEPHIN 1 Gm-D5w 50 ml Bag** 1 G/50 ML IVPB IV ONE (18:58)
[2019-12-02 19:11] LABS: ALBUMIN 3.9 g/dL (3.5-5.0); ALKALINE PHOSPHATASE 81 U/L (38-126); ANION GAP 6.3 MEQ/L (5-15); BLOOD UREA NITROGEN 6 mg/dL (7-17); CHLORIDE 104 mmol/L (98-107); Calcium 8.8 mg/dL (8.4-10.2); Carbon Dioxide 32 mmol/L (22-30); Creatinine 1 0.81 mg/dL (0.52-1.04); EST GLOMERULAR FILTRATION RATE > 60.0 ML/MIN; Glucose 141 mg/dL (74-106); SGOT/AST 20 U/L (14-36); SGPT/ALT 20 U/L (0-35); SODIUM 138 mmol/L (137-145); Total Protein 7.2 g/dL (6.3-8.2)
[2019-12-02 19:16] VITALS: BP 120/67
[2019-12-02 19:30] VITALS: PULSE 92; O2SAT 96
--- NOTE | 2019-12-03 07:52 | XRAY ---
Indication: Short of breath. Comparison: October 29, 2019. PA/lateral chest again demonstrates normal heart and lungs with incidental small hiatal hernia. Bony thorax intact. No new/acute findings.
== END 2019-12-02 19:34 | disposition home or self-care (01) ==
LOC: ED 18:10
DX: J44.1 Chronic obstructive pulmonary disease with (acute) exacerbation (principal); Z79.899 Other long term (current) drug therapy; I50.9 Heart failure, unspecified; I25.10 Atherosclerotic heart disease of native coronary artery without angina pectoris; E78.00 Pure hypercholesterolemia, unspecified; E03.9 Hypothyroidism, unspecified; F41.9 Anxiety disorder, unspecified
CPT/HCPCS: 36000; 36415; 71046; 80053; 85025; 93005; 93041; 94640; 96365; 96374; 99284; J0696; J2930; A9270-GY

== ENCOUNTER 2019-12-07 19:20 | Observation (INO) | payer MEDICARE ==
[2019-12-07 20:19] LABS: Absolute Neutrophil Ct (ANC) 6.45 (1.4-6.9); BASOPHIL % 0.3 % (0.0-0.4); Basophil (Absolute #) 0.03 (0-0.4); Eosinophil % 0.8 % (0.00-5.0); Eosinophil (Absolute #) 0.07 (0-0.5); Hematocrit 29.8 % (35-47); Hemoglobin 8.7 gm/dl (12.0-16.0); Lymphocyte (Absolute #) 1.93 (1.0-4.6); Lymphocytes % 20.9 % (24.0-44.0); Mean Cell Volume 81.4 fl (78-100); Mean Corpuscular Hemoglobin 23.8 pg (26-32); Mean Corpuscular Hgb Concent. 29.2 g/dl (32-36); Mean Platelet Volume 9.2 fl (7.5-11.0); Monocyte (Absolute #) 0.77 (0.0-1.3); Monocytes % 8.3 % (0.0-12.0); Neutrophil % 69.7 % (36.0-66.0); Platelet Count 541 K/mm3 (150-450); Red Blood Count 3.66 M/mm3 (4.1-5.4); Red Cell Distribution Width 21.3 % (11.5-14.0); White Blood Count 9.3 K/mm3 (4.0-10.5)
[2019-12-07 20:39] LABS: ALBUMIN 3.9 g/dL (3.5-5.0); ALKALINE PHOSPHATASE 75 U/L (38-126); ANION GAP 5.9 MEQ/L (5-15); BLOOD UREA NITROGEN 12 mg/dL (7-17); CHLORIDE 105 mmol/L (98-107); Calcium 8.6 mg/dL (8.4-10.2); Carbon Dioxide 29 mmol/L (22-30); Creatinine 1 0.79 mg/dL (0.52-1.04); EST GLOMERULAR FILTRATION RATE > 60.0 ML/MIN; Glucose 102 mg/dL (74-106); MAGNESIUM 2.2 mg/dL (1.6-2.3); Potassium 3.8 mmol/L (3.5-5.1); SGOT/AST 22 U/L (14-36); SGPT/ALT 19 U/L (0-35); SODIUM 136 mmol/L (137-145); Total Protein 6.9 g/dL (6.3-8.2)
[2019-12-07 20:58] LABS: INFLUENZA A NEGATIVE (NEGATIVE); INFLUENZA B NEGATIVE (NEGATIVE); RESPIRATORY SYNCTIAL VIRUS NEGATIVE (Negative)
[2019-12-07] MEDS ORDERED: solu-MEDROL 125 MG IV ONE (21:25)
[2019-12-07] MEDS ORDERED: solu-MEDROL 125 MG ONE (21:27)
--- NOTE | 2019-12-07 21:30 | ERPHSYRPT ---
- History of Present Illness Time Seen by Provider: 12/07/19 19:35 Source: patient Exam Limitations: no limitations Patient Subjective Stated Complaint: pt states that she was just here 5 days ago with the same symptoms, pt states that she has increased congestion, shortness of breath, headache, pt states that her mouth/gums burn,pt states that she was put on keflex but does seem to work Triage Nursing Assessment: pt ambulated into the er; pt is axo x4; c/o cough and congestion; hx of COPD; denies pain; pt on 3 L via nasal cannula; wheezing p resent in all lobes; moist cough; hypertensive; denies any pain; afebrile Physician History: Patient is a 64-year-old female presents to our ED with complaints of shortness of breath nasal congestion cough and burning of her gums. Patient was in our ED 5 days ago with similar symptoms. Patient was treated with Keflex. Patient states her symptoms did not improve. Patient is a smoker. History of COPD. Patient feels she is experiencing an exacerbation of her COPD. Patient uses 3 L of oxygen at home. She has been doing so in spite continues to feel short of breath. Patient feels that she needs to be admitted at this time. Symptoms are progressive. Symptoms are mild to moderate in intensity. Exertion worsens symptomology. Patient voices no other complaints concerns at this time. Timing/Duration: day(s) (5 days ago.) Activities at Onset: none Severity of Dyspnea-Max: mild Severity of Dyspnea-Current: moderate Possible Cause: occasional episodes Modifying Factors: Improves With: activity Associated Symptoms: cough, wheezing, productive cough, No ankle swelling, No chills, No dizziness, No leg swelling, No muscle spasms hands, No sweating Allergies/Adverse Reactions: morphine Allergy (Severe, Verified 12/07/19 19:27) Fainting oxycodone Allergy (Verified 12/07/19 19:28) Shortness of Breath Penicillins Allergy (Verified 12/07/19 19:27) Coconut Adverse Reaction (Intermediate, Verified 12/07/19 19:27) Headache bupropion HCl [From Wellbutrin] Adverse Reaction (Mild, Verified 12/07/19 19:27) Hives Home Medications: Albuterol/Ipratropium Mdi [Combivent Inhaler] 1 puff IH Q4HWA 12/29/12 [History] Clonazepam 0.5 mg [Klonopin 0.5 MG] 2 mg PO TID 12/29/12 [History] Famotidine 20 mg [Pepcid 20 MG] 40 mg PO BID 12/29/12 [History] Fluticasone/Salmeterol Disc [Advair 250-50 Diskus 14 Dose] 1 puff IH BID 12/29/12 [History] Sertraline HCl 100 mg [Zoloft 100 MG] 200 mg PO QAM 12/17/13 [History] Isosorbide Mononitrate 30 mg [Imdur 30 MG] 30 mg PO DAILY 11/05/14 [History] Gabapentin 1,200 mg PO QAM 01/16/15 [History] Tizanidine HCl 4 mg [Zanaflex 4 MG] 4 mg PO TID 01/16/15 [History] Levothyroxine Sodium 25 Mcg [Synthroid 25 Mcg] 25 mcg PO DAILY 10/17/15 [History] Quetiapine Fumarate [Seroquel] 200 mg PO QAM 10/17/15 [History] Vits W-Ca,Fe,FA(<1Mg) [] 1 each PO DAILY 10/18/15 [History] Nitroglycerin 0.4 mg Tablet [Nitrostat 0.4 MG Tablet] 0.4 mg SL UD PRN 11/15/15 [History] Gabapentin 2,400 mg PO HS 02/21/16 [History] Albuterol Common Canister [Ventolin Common Canister] 2 puff IH Q4-6HPRN PRN 07/08/19 [History] Quetiapine Fumarate 300 mg PO QHS 07/08/19 [History] predniSONE [Prednisone] 1 ea BID 12/02/19 [History] Hx Tetanus, Diphtheria Vaccination/Date Given: Yes (unknown) Hx Influenza Vaccination/Date Given: No Hx Pneumococcal Vaccination/Date Given: No Travel Risk - International Travel Have you traveled outside of the country in past 3 weeks: No - Coronavirus Screening Are you exhibiting any of the following symptoms?: Yes Symptoms: Cough: New Onset, Shortness of Breath Close contact with a COVID-19 positive Pt in past 14-21 Days: No - Review of Systems Constitutional: No Symptoms, No Fever, No Chills Eyes: No Symptoms Ears, Nose, & Throat: No Symptoms Respiratory: No Symptoms, No Cough, No Dyspnea Cardiac: No Symptoms, No Chest Pain, No Edema, No Syncope Abdominal/Gastrointestinal: No Symptoms, No Abdominal Pain, No Nausea, No Vomiting, No Diarrhea Genitourinary Symptoms: No Symptoms, No Dysuria Musculoskeletal: No Symptoms, No Back Pain, No Neck Pain Skin: No Symptoms, No Rash Neurological: No Symptoms, No Dizziness, No Focal Weakness, No Sensory Changes Psychological: No Symptoms Endocrine: No Symptoms Hematologic/Lymphatic: No Symptoms Immunological/Allergic: No Symptoms All Other Systems: Reviewed and Negative - Past Medical History Pertinent Past Medical History: Yes Neurological History: Migraines ENT History: No Pertinent History Cardiac History: Congestive Heart Failure, Coronary Artery Disease, High Cholesterol Respiratory History: Asthma, Bronchitis, COPD, Pneumonia Endocrine Medical History: Hypothyroidism Musculoskeletal History: Arthritis GI Medical History: GERD, Hernia, Polyps History: No Pertinent History Psycho-Social History: Anxiety, Bipolar, Depression Female Reproductive Disorders: Fibroids Other Medical History: 2 LEAKY VALVES. BORDERLINE PERSONALITY DISORDER, PTSD, manic depressive. bone deficiency - Past Surgical History Past Surgical History: Yes Neuro Surgical History: No Pertinent History Cardiac: Cardiac Catheterization Respiratory: No Pertinent History Gastrointestinal: Other Genitourinary: No Pertinent History Musculoskeletal: Other Female Surgical History: Section Other Surgical History: ARM SURGERY, 2 c-sections, EGD with dilitation, Colonoscopy, heart cathx2 - Social History Smoking Status: Current every day smoker How long have you smoked: "40 years" Exposure to second hand smoke: Yes Alcohol Use: Socially Drug Use: marijuana Patient Lives Alone: No Significant Family History: no pertinent family hx - Female History Hx Now: No - Nursing Vital Signs Nursing Vital Signs: Initial Vital Signs Pulse Rate 97 H 12/07/19 19:28 Respiratory Rate 18 12/07/19 19:28 Blood Pressure 168/95 12/07/19 19:28 O2 Sat by Pulse Oximetry 99 12/07/19 19:28 Pain Scale Pain Intensity 3 - Physical Exam General Appearance: no apparent distress, alert Eye Exam: PERRL/EOMI Neck Exam: normal inspection, supple Respiratory Exam: diminished breath sounds, prolonged expirations, wheezing Cardiovascular/Chest Exam: normal heart sounds, regular rate/rhythm Abdominal/Gastrointestinal Exam: soft, No tenderness, No distention, No mass Extremity Exam: non-tender, normal range of motion, normal inspection, no calf tenderness, no pedal edema Peripheral Pulses Exam: dorsalis-pedis (R): 2+, dorsalis-pedis (L): 2+ Neurologic Exam: alert, oriented x 3, 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, 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 as tested, sensation nml, No motor deficits Skin Exam: normal color, warm, No dry SpO2 Interpretation: normal SpO2: 99 O2 Delivery: Room Air - Course Nursing assessment & vital signs reviewed: Yes - Radiology Exams Chest X-ray Interpretation: Teleradiologist Report (Compared to 12/02/2019 stable normal heart lungs with incidental hiatal hernia.) Ordered Tests: Active Orders 24 hr Category Date Time Status Lot Technician STAT Care 12/07/19 20:00 Active EKG-ER Only STAT Care 12/07/19 20:00 Active IV Insertion STAT Care 12/07/19 20:00 Active Pulse Oximetry (ED) STAT Care 12/07/19 20:00 Active CHEST 1 VIEW (PORTABLE) Stat Exams 12/07/19 20:00 Taken BLOOD CULTURE Stat Lab 12/07/19 19:45 Received CBC W DIFF Stat Lab 12/07/19 19:45 Completed CMP Stat Lab 12/07/19 19:45 Completed D-DIMER QUANTITATIVE Stat Lab 12/07/19 20:25 Completed MAGNESIUM Stat Lab 12/07/19 19:45 Completed NT PRO BNP Stat Lab 12/07/19 19:45 Completed TROPONIN Q3H Lab 12/07/19 19:45 Completed TROPONIN Q3H Lab 12/07/19 22:58 Received TROPONIN Q3H Lab 12/08/19 02:00 Ordered TROPONIN Q3H Lab 12/08/19 05:00 Ordered TROPONIN Q3H Lab 12/08/19 08:00 Ordered Transfer Order Routine Transfer 12/07/19 Ordered Medication Summary Generic Name Dose Route Start Last Admin Trade Name Freq PRN Reason Stop Dose Admin Doxycycline Hyclate 100 mg/ 100 mls @ 100 mls/hr 12/07/19 22:00 12/07/19 21:41 Dextrose IV 01/06/20 21:59 100 mls/hr Q12HT VALERY Administration Discontinued Medications Generic Name Dose Route Start Last Admin Trade Name Yordan PRN Reason Stop Dose Admin Acetaminophen 975 mg 12/07/19 22:23 12/07/19 22:29 Tylenol 325 Mg PO 12/07/19 22:24 975 mg STAT STA Administration Acetaminophen Confirm 12/07/19 22:28 Tylenol 325 Mg Administered 12/07/19 22:29 Dose 975 mg .ROUTE .STK-MED ONE Doxycycline Hyclate Confirm 12/07/19 21:36 Vibramycin 100 Mg Administered 12/07/19 21:37 Dose 100 mg IV .STK-MED ONE Dextrose Confirm 12/07/19 21:36 D5w 100ml Mini Bag 100 Ml Administered 12/07/19 21:37 Dose 100 mls @ ud IV .STK-MED ONE Methylprednisolone Sodium Succinate 125 mg 12/07/19 21:25 12/07/19 21:32 Solu-Medrol 125 Mg IV 12/07/19 21:26 125 mg STAT ONE Administration Methylprednisolone Sodium Succinate Confirm 12/07/19 21:27 Solu-Medrol 125 Mg Administered 12/07/19 21:28 Dose 125 mg .ROUTE .STK-MED ONE Prednisone 60 mg 12/07/19 22:18 Deltasone 20 Mg PO 12/07/19 22:19 STAT ONE Lab/Rad Data: Laboratory Result Diagrams 12/07/19 19:45 12/07/19 19:45 Laboratory Results 12/07/19 12/07/19 12/07/19 Range/Units 20:25 20:24 20:20 WBC (4.0-10.5) K/mm3 RBC (4.1-5.4) M/mm3 Hgb (12.0-16.0) gm/dl Hct (35-47) % MCV (78-100) fl MCH (26-32) pg MCHC (32-36) g/dl RDW (11.5-14.0) % Plt Count (150-450) K/mm3 MPV (7.5-11.0) fl Gran % (36.0-66.0) % Eos # (Auto) (0-0.5) Absolute Lymphs (auto) (1.0-4.6) Absolute Monos (auto) (0.0-1.3) Lymphocytes % (24.0-44.0) % Monocytes % (0.0-12.0) % Eosinophils % (0.00-5.0) % Basophils % (0.0-0.4) % Absolute Granulocytes (1.4-6.9) Basophils # (0-0.4) D-Dimer 390 (215-500) ng/mL Sodium (137-145) mmol/L Potassium (3.5-5.1) mmol/L Chloride (98-107) mmol/L Carbon Dioxide (22-30) mmol/L Anion Gap (5-15) MEQ/L BUN (7-17) mg/dL Creatinine (0.52-1.04) mg/dL Estimated GFR ML/MIN Glucose (74-106) mg/dL Calcium (8.4-10.2) mg/dL Magnesium (1.6-2.3) mg/dL Total Bilirubin (0.2-1.3) mg/dL AST (14-36) U/L ALT (0-35) U/L Alkaline Phosphatase (38-126) U/L Troponin I (0.000-0.034) ng/mL NT-Pro-B Natriuret Pep (0-900) pg/mL Serum Total Protein (6.3-8.2) g/dL Albumin (3.5-5.0) g/dL Influenza Type A Ag NEGATIVE (NEGATIVE) Influenza Type B Ag NEGATIVE (NEGATIVE) RSV (PCR) NEGATIVE (Negative) SARS-CoV-2 (PCR) NEGATIVE (NEGATIVE) 12/07/19 12/07/19 12/07/19 Range/Units 19:45 19:45 19:45 WBC 9.3 (4.0-10.5) K/mm3 RBC 3.66 L (4.1-5.4) M/mm3 Hgb 8.7 L (12.0-16.0) gm/dl Hct 29.8 L (35-47) % MCV 81.4 (78-100) fl MCH 23.8 L (26-32) pg MCHC 29.2 L (32-36) g/dl RDW 21.3 H (11.5-14.0) % Plt Count 541 H (150-450) K/mm3 MPV 9.2 (7.5-11.0) fl Gran % 69.7 H (36.0-66.0) % Eos # (Auto) 0.07 (0-0.5) Absolute Lymphs (auto) 1.93 (1.0-4.6) Absolute Monos (auto) 0.77 (0.0-1.3) Lymphocytes % 20.9 L (24.0-44.0) % Monocytes % 8.3 (0.0-12.0) % Eosinophils % 0.8 (0.00-5.0) % Basophils % 0.3 (0.0-0.4) % Absolute Granulocytes 6.45 (1.4-6.9) Basophils # 0.03 (0-0.4) D-Dimer (215-500) ng/mL Sodium 136 L (137-145) mmol/L Potassium 3.8 (3.5-5.1) mmol/L Chloride 105 (98-107) mmol/L Carbon Dioxide 29 (22-30) mmol/L Anion Gap 5.9 (5-15) MEQ/L BUN 12 (7-17) mg/dL Creatinine 0.79 (0.52-1.04) mg/dL Estimated GFR > 60.0 ML/MIN Glucose 102 (74-106) mg/dL Calcium 8.6 (8.4-10.2) mg/dL Magnesium 2.2 (1.6-2.3) mg/dL Total Bilirubin 0.20 (0.2-1.3) mg/dL AST 22 (14-36) U/L ALT 19 (0-35) U/L Alkaline Phosphatase 75 (38-126) U/L Troponin I < 0.012 (0.000-0.034) ng/mL NT-Pro-B Natriuret Pep 64.0 (0-900) pg/mL Serum Total Protein 6.9 (6.3-8.2) g/dL Albumin 3.9 (3.5-5.0) g/dL Influenza Type A Ag (NEGATIVE) Influenza Type B Ag (NEGATIVE) RSV (PCR) (Negative) SARS-CoV-2 (PCR) (NEGATIVE) - Progress Progress: improved Air Movement: fair Progress Note: 12/07/19 21:39 Patient reassessed. Patient wheezing. This is patient's second ED visit. Patient requesting admission. D-dimer negative. Initial troponin negative. RSV flu negative chest x-ray nonremarkable. Patient is a smoker. COVID test performed for admission. COVID test negative. DuoNeb ordered. Antibiotics infused. We will admit to Dr. Cameron. Blood Culture(s) Obtained: Yes Antibiotics given: Yes Discussed with DrTorin: Bandar Will see patient in: hospital (observation) Counseled pt/family regarding: lab results, diagnosis, need for follow-up, rad results - Departure Departure Disposition: Observation Clinical Impression: Normocytic anemia, Thrombocytosis, Cough, Hypoxia, COPD with acute exacerbation Condition: Stable Critical Care Time: No Referrals: WEN CAMERON MD [Primary Care Provider] - Instructions: Chronic Obstructive Pulmonary Disease
[2019-12-07] MEDS ORDERED: D5w 100ML Mini Bag 100 ML 100 ML IV ONE (21:36)
[2019-12-07] MEDS ORDERED: VIBRAMYCIN 100 MG IV ONE (21:36)
[2019-12-07] MEDS: VIBRAMYCIN 100 MG*** 100 MG in Dextrose 5%/Water IV Soln. 100ML PLUS BAG 100 ML IV SCH (21:41)
[2019-12-07] MEDS ORDERED: DELTASONE 20 MG PO ONE (22:18)
[2019-12-07] MEDS ORDERED: TYLENOL 325 MG PO STA (22:23)
[2019-12-07] MEDS ORDERED: TYLENOL 325 MG ONE (22:28)
[2019-12-07] MEDS ORDERED: DUONEB 0.5-3 MG/3 ml Neb IH ONE ×2 (23:09→23:14)
[2019-12-08] MEDS: solu-MEDROL 125 MG IV SCH ×3 (00:02→13:04)
[2019-12-08] MEDS ORDERED: FLUZONE QUAD 2020-2021 SYRINGE IM ONE ×2 (00:16→12:36)
[2019-12-08] MEDS ORDERED: Seroquel 100 MG PO SCH ×2 (01:30→10:00)
[2019-12-08] MEDS ORDERED: Zanaflex 4 MG PO PRN (01:31)
[2019-12-08] MEDS: Pepcid 20 MG PO SCH ×2 (01:43→01:50)
[2019-12-08] MEDS: Neurontin 400 MG PO SCH ×2 (01:44→11:03)
[2019-12-08] MEDS: KLONOPIN PO SCH ×2 (01:44→11:04)
[2019-12-08] MEDS: DUONEB 0.5-3 MG/3 ml Neb IH SCH ×3 (02:31→11:01)
[2019-12-08 04:59] LABS: Hematocrit 30.5 % (35-47); Hemoglobin 8.7 gm/dl (12.0-16.0); Mean Cell Volume 82.2 fl (78-100); Mean Corpuscular Hemoglobin 23.5 pg (26-32); Mean Corpuscular Hgb Concent. 28.5 g/dl (32-36); Mean Platelet Volume 9.5 fl (7.5-11.0); Platelet Count 515 K/mm3 (150-450); Red Blood Count 3.71 M/mm3 (4.1-5.4); Red Cell Distribution Width 21.2 % (11.5-14.0)
[2019-12-08 05:15] LABS: ALBUMIN 3.9 g/dL (3.5-5.0); ALKALINE PHOSPHATASE 74 U/L (38-126); BLOOD UREA NITROGEN 10 mg/dL (7-17); CHLORIDE 104 mmol/L (98-107); Calcium 9.1 mg/dL (8.4-10.2); Carbon Dioxide 29 mmol/L (22-30); Creatinine 1 0.74 mg/dL (0.52-1.04); EST GLOMERULAR FILTRATION RATE > 60.0 ML/MIN; Glucose 145 mg/dL (74-106); Potassium 4.3 mmol/L (3.5-5.1); SGOT/AST 21 U/L (14-36); SGPT/ALT 19 U/L (0-35); SODIUM 135 mmol/L (137-145); Total Protein 6.9 g/dL (6.3-8.2)
[2019-12-08] MEDS ORDERED: VENTOLIN COMMON CANISTER IH PRN (07:53)
[2019-12-08] MEDS ORDERED: Nitrostat 0.4 MG Tablet SL PRN (07:53)
[2019-12-08] MEDS ORDERED: KEFLEX 500 MG PO SCH (08:00)
--- NOTE | 2019-12-08 08:58 | XRAY ---
Indication: Cough. Comparison: December 02, 2019. Portable chest again demonstrates normal heart and lungs with mild enlarging moderate sized hiatal hernia. No new/acute findings.
[2019-12-08] MEDS ORDERED: Pepcid 20 MG PO SCH (10:00)
[2019-12-08] MEDS ORDERED: ZOLOFT 50 MG TABLET PO SCH (10:00)
[2019-12-08] MEDS ORDERED: THERAGRAN MULTIVITAMIN PO SCH (10:00)
[2019-12-08] MEDS ORDERED: NON-FORMULARY ITEM (Omeprazole [Omeprazole] 40 MG) PO SCH (10:00)
[2019-12-08] MEDS ORDERED: NON-FORMULARY ITEM (Prenatal Vits W-Ca,Fe,Fa(<1mg) [Prenatal] 1 EACH) PO SCH (10:00)
[2019-12-08] MEDS ORDERED: SYNTHROID 25 MCG PO SCH (10:00)
[2019-12-08] MEDS ORDERED: ADVAIR 250-50 DISKUS 14 DOSE IH SCH (10:00)
[2019-12-08] MEDS ORDERED: Nicoderm CQ 21 MG TD SCH (10:00)
[2019-12-08] MEDS ORDERED: Imdur 30 MG PO SCH (10:00)
[2019-12-08] MEDS ORDERED: Protonix 40MG Tablet PO SCH (10:00)
[2019-12-08] MEDS ORDERED: NON-FORMULARY ITEM (Sertraline Hcl 100 Mg [Zoloft 100 Mg] 100 MG) PO SCH (10:00)
--- NOTE | 2019-12-08 10:43 | PCM.HP ---
History of Present Illness - Chief Complaint Chief Complaint: c/o shortness of breath for 2-3 days History of Present Illness: Patient is a 64-year-old female presents to our ED with complaints of shortness of breath nasal congestion cough and burning of her gums. Patient was in our ED 5 days ago with similar symptoms. Patient was treated with Keflex. Patient states her symptoms did not improve. Patient is a smoker. History of COPD. Patient feels she is experiencing an exacerbation of her COPD. Patient uses 3 L of oxygen at home. She has been doing so in spite continues to feel short of breath. Patient feels that she needs to be admitted at this time. Symptoms are progressive. Symptoms are mild to moderate in intensity. Exertion worsens symptomology. Patient voices no other complaints concerns at this time. Timing/Duration: day(s) (5 days ago.) Activities at Onset: none Severity of Dyspnea-Max: mild Severity of Dyspnea-Current: moderate Possible Cause: occasional episodes Modifying Factors: Improves With: activity Associated Symptoms: cough, wheezing, productive cough, No ankle swelling, No chills, No dizziness, No leg swelling, No muscle spasms hands, No sweating - Review of Systems Constitutional: No Fever, No Chills Eyes: No Symptoms Ears, Nose, & Throat: No Symptoms Respiratory: Orthopnea, Short Of Breath, Wheezing, No Cough Cardiac: No Chest Pain, No Edema, No Syncope Abdominal/Gastrointestinal: No Abdominal Pain, No Nausea, No Vomiting, No Diarrhea Genitourinary Symptoms: No Dysuria Musculoskeletal: No Back Pain, No Neck Pain Skin: No Rash Neurological: No Dizziness, No Focal Weakness, No Sensory Changes Psychological: No Symptoms Endocrine: No Symptoms Hematologic/Lymphatic: No Symptoms Immunological/Allergic: No Symptoms Medications & Allergies Home Medications: Home Medication List Albuterol/Ipratropium Mdi [Combivent Inhaler] 1 puff IH Q4HWA 12/29/12 [ History Confirmed 12/07/19] Clonazepam 0.5 mg [Klonopin 0.5 MG] 2 mg PO TID 12/29/12 [History Confirmed 12/07/19] Famotidine 20 mg [Pepcid 20 MG] 40 mg PO BID 12/29/12 [History Confirmed 1 ] Fluticasone/Salmeterol Disc [Advair 250-50 Diskus 14 Dose] 1 puff IH BID 12/29/12 [History Confirmed 12/07/19] Sertraline HCl 100 mg [Zoloft 100 MG] 100 mg PO DAILY 12/17/13 [History Co nfirmed 12/07/19] Isosorbide Mononitrate 30 mg [Imdur 30 MG] 30 mg PO DAILY 11/05/14 [History Confirmed 12/07/19] Gabapentin 1,200 mg PO QAM 01/16/15 [History Confirmed 12/07/19] Tizanidine HCl 4 mg [Zanaflex 4 MG] 4 mg PO TID 01/16/15 [History Confirmed 12/07/19] Levothyroxine Sodium 25 Mcg [Synthroid 25 Mcg] 25 mcg PO DAILY 10/17/15 [History Confirmed 12/07/19] Quetiapine Fumarate [Seroquel] 200 mg PO QAM 10/17/15 [History Confirmed 12/07/19] Vits W-Ca,Fe,FA(<1Mg) [] 1 each PO DAILY 10/18/15 [History Confirmed 12/07/19] Nitroglycerin 0.4 mg Tablet [Nitrostat 0.4 MG Tablet] 0.4 mg SL UD PRN 11/15/15 [History Confirmed 12/07/19] Gabapentin 2,400 mg PO HS 02/21/16 [History Confirmed 12/07/19] Albuterol Common Canister [Ventolin Common Canister] 2 puff IH Q4-6HPRN PRN 07/08/19 [History Confirmed 12/07/19] Quetiapine Fumarate 300 mg PO QHS 07/08/19 [History Confirmed 12/07/19] Nicotine 21 mg [Nicoderm CQ 21 MG] 21 mg TD DAILY #30 patch 07/09/19 [Rx Confirmed 12/07/19] Cephalexin Mh 500 mg [Keflex 500 mg] 500 mg PO Q6H #40 capsule 12/02/19 [Rx Confirmed 12/07/19] predniSONE [Prednisone] 1 ea BID 12/02/19 [History Confirmed 12/07/19] Omeprazole 40 mg PO DAILY 12/07/19 [History Confirmed 12/07/19] Allergies/Adverse Reactions: Allergies Allergy/AdvReac Type Severity Reaction Status Date / Time morphine Allergy Severe Fainting Verified 12/07/19 19:27 oxycodone Allergy Shortness Verified 12/07/19 19:28 of Breath Penicillins Allergy Verified 12/07/19 19:27 [place] AdvReac Intermediate Headache Verified 12/07/19 19:27 bupropion HCl AdvReac Mild Hives Verified 12/07/19 19:27 [From Wellbutrin] - Past Medical History Past Medical History: Yes Neurological History: Migraines ENT History: No Pertinent History Cardiac History: Congestive Heart Failure, Coronary Artery Disease, High Cholesterol Respiratory History: Asthma, Bronchitis, COPD, Pneumonia Endocrine Medical History: Hypothyroidism Musculoskelatal History: Arthritis GI Medical History: GERD, Hernia, Polyps History: No Pertinent History Pyscho-Social History: Anxiety, Bipolar, Depression Reproductive Disorders: Fibroids Comment: 2 LEAKY VALVES. BORDERLINE PERSONALITY DISORDER, PTSD, manic d epressive. bone deficiency - Female History Are you now?: No - Past Surgical History Past Surgical History: Yes Neuro Surgical History: No Pertinent History Cardiac History: Cardiac Catheterization Respiratory Surgery: No Pertinent History GI Surgical History: Other Genitourinary Surgical Hx: No Pertinent History Musculskeletal Surgical Hx: Other Female Surgical History: Section Other Surgical History: ARM SURGERY, 2 c-sections, EGD with dilitation, Colonoscopy, heart cathx2 - Social History Smoking Status: Current every day smoker How long have you smoked: "40 years" Exposure to second hand smoke: Yes Alcohol: None Drug Use: marijuana Significant Family History: no pertinent family hx - Physical Exam Vital Signs: Vital Signs - 24 hr Temp Pulse Resp BP Pulse Ox 12/08/19 08:00 97.7 F 84 20 122/71 99 12/08/19 07:37 91 H 22 95 12/08/19 03:59 97.8 F 93 H 25 H 121/65 97 12/08/19 02:34 88 16 97 12/08/19 00:31 77 14 96 12/08/19 00:16 98.1 F 80 16 148/67 96 12/07/19 23:53 96 12/07/19 23:28 77 14 100 12/07/19 23:10 99 12/07/19 23:00 70 18 96 12/07/19 22:07 78 128/64 99 12/07/19 21:03 86 143/89 99 12/07/19 20:41 86 154/83 99 12/07/19 20:08 99 12/07/19 19:28 97 H 18 168/95 99 Oxygen-Last 24 hours Oxygen Flowrate (L/min)-RT 3 General Appearance: no apparent distress, alert Neurologic Exam: alert, oriented x 3, cooperative, normal mood/affect, nml cerebellar function, nml station & gait, sensation nml, No motor deficits Eye Exam: PERRL/EOMI, eyes nml inspection Ears, Nose, Throat Exam: normal ENT inspection, TMs normal, pharynx normal, moist mucous membranes Neck Exam: normal inspection, non-tender, supple, full range of motion Respiratory Exam: respiratory distress, diminished breath sounds, accessory muscle use, crackles/rales, rhonchi, wheezing Cardiovascular Exam: regular rate/rhythm, normal heart sounds, normal peripheral pulses Gastrointestinal/Abdomen Exam: soft, normal bowel sounds, No tenderness, No mass Back Exam: normal inspection, normal range of motion, No CVA tenderness, No vertebral tenderness Extremity Exam: normal inspection, normal range of motion, pelvis stable Skin Exam: normal color, warm, dry, No rash Lymphatic Exam: No adenopathy Results - Labs Lab/Micro Results: Lab Results-Last 24 Hours 12/07/19 12/07/19 12/07/19 Range/Units 19:45 19:45 19:45 WBC 9.3 (4.0-10.5) K/mm3 RBC 3.66 L (4.1-5.4) M/mm3 Hgb 8.7 L (12.0-16.0) gm/dl Hct 29.8 L (35-47) % MCV 81.4 (78-100) fl MCH 23.8 L (26-32) pg MCHC 29.2 L (32-36) g/dl RDW 21.3 H (11.5-14.0) % Plt Count 541 H (150-450) K/mm3 MPV 9.2 (7.5-11.0) fl Gran % 69.7 H (36.0-66.0) % Eos # (Auto) 0.07 (0-0.5) Absolute Lymphs (auto) 1.93 (1.0-4.6) Absolute Monos (auto) 0.77 (0.0-1.3) Lymphocytes % 20.9 L (24.0-44.0) % Monocytes % 8.3 (0.0-12.0) % Eosinophils % 0.8 (0.00-5.0) % Basophils % 0.3 (0.0-0.4) % Absolute Granulocytes 6.45 (1.4-6.9) Basophils # 0.03 (0-0.4) D-Dimer (215-500) ng/mL Sodium 136 L (137-145) mmol/L Potassium 3.8 (3.5-5.1) mmol/L Chloride 105 (98-107) mmol/L Carbon Dioxide 29 (22-30) mmol/L Anion Gap 5.9 (5-15) MEQ/L BUN 12 (7-17) mg/dL Creatinine 0.79 (0.52-1.04) mg/dL Estimated GFR > 60.0 ML/MIN Glucose 102 (74-106) mg/dL POC Glucometer (74 to 106) mg/dL Calcium 8.6 (8.4-10.2) mg/dL Magnesium 2.2 (1.6-2.3) mg/dL Total Bilirubin 0.20 (0.2-1.3) mg/dL AST 22 (14-36) U/L ALT 19 (0-35) U/L Alkaline Phosphatase 75 (38-126) U/L Troponin I < 0.012 (0.000-0.034) ng/mL NT-Pro-B Natriuret Pep 64.0 (0-900) pg/mL Serum Total Protein 6.9 (6.3-8.2) g/dL Albumin 3.9 (3.5-5.0) g/dL Influenza Type A Ag (NEGATIVE) Influenza Type B Ag (NEGATIVE) RSV (PCR) (Negative) SARS-CoV-2 (PCR) (NEGATIVE) 12/07/19 12/07/19 12/07/19 Range/Units 20:20 20:24 20:25 WBC (4.0-10.5) K/mm3 RBC (4.1-5.4) M/mm3 Hgb (12.0-16.0) gm/dl Hct (35-47) % MCV (78-100) fl MCH (26-32) pg MCHC (32-36) g/dl RDW (11.5-14.0) % Plt Count (150-450) K/mm3 MPV (7.5-11.0) fl Gran % (36.0-66.0) % Eos # (Auto) (0-0.5) Absolute Lymphs (auto) (1.0-4.6) Absolute Monos (auto) (0.0-1.3) Lymphocytes % (24.0-44.0) % Monocytes % (0.0-12.0) % Eosinophils % (0.00-5.0) % Basophils % (0.0-0.4) % Absolute Granulocytes (1.4-6.9) Basophils # (0-0.4) D-Dimer 390 (215-500) ng/mL Sodium (137-145) mmol/L Potassium (3.5-5.1) mmol/L Chloride (98-107) mmol/L Carbon Dioxide (22-30) mmol/L Anion Gap (5-15) MEQ/L BUN (7-17) mg/dL Creatinine (0.52-1.04) mg/dL Estimated GFR ML/MIN Glucose (74-106) mg/dL POC Glucometer (74 to 106) mg/dL Calcium (8.4-10.2) mg/dL Magnesium (1.6-2.3) mg/dL Total Bilirubin (0.2-1.3) mg/dL AST (14-36) U/L ALT (0-35) U/L Alkaline Phosphatase (38-126) U/L Troponin I (0.000-0.034) ng/mL NT-Pro-B Natriuret Pep (0-900) pg/mL Serum Total Protein (6.3-8.2) g/dL Albumin (3.5-5.0) g/dL Influenza Type A Ag NEGATIVE (NEGATIVE) Influenza Type B Ag NEGATIVE (NEGATIVE) RSV (PCR) NEGATIVE (Negative) SARS-CoV-2 (PCR) NEGATIVE (NEGATIVE) 12/07/19 12/08/19 12/08/19 Range/Units 22:58 04:41 04:41 WBC 7.0 (4.0-10.5) K/mm3 RBC 3.71 L (4.1-5.4) M/mm3 Hgb 8.7 L (12.0-16.0) gm/dl Hct 30.5 L (35-47) % MCV 82.2 (78-100) fl MCH 23.5 L (26-32) pg MCHC 28.5 L (32-36) g/dl RDW 21.2 H (11.5-14.0) % Plt Count 515 H (150-450) K/mm3 MPV 9.5 (7.5-11.0) fl Gran % (36.0-66.0) % Eos # (Auto) (0-0.5) Absolute Lymphs (auto) (1.0-4.6) Absolute Monos (auto) (0.0-1.3) Lymphocytes % (24.0-44.0) % Monocytes % (0.0-12.0) % Eosinophils % (0.00-5.0) % Basophils % (0.0-0.4) % Absolute Granulocytes (1.4-6.9) Basophils # (0-0.4) D-Dimer (215-500) ng/mL Sodium 135 L (137-145) mmol/L Potassium 4.3 (3.5-5.1) mmol/L Chloride 104 (98-107) mmol/L Carbon Dioxide 29 (22-30) mmol/L Anion Gap 7.0 (5-15) MEQ/L BUN 10 (7-17) mg/dL Creatinine 0.74 (0.52-1.04) mg/dL Estimated GFR > 60.0 ML/MIN Glucose 145 H (74-106) mg/dL POC Glucometer (74 to 106) mg/dL Calcium 9.1 (8.4-10.2) mg/dL Magnesium (1.6-2.3) mg/dL Total Bilirubin 0.20 (0.2-1.3) mg/dL AST 21 (14-36) U/L ALT 19 (0-35) U/L Alkaline Phosphatase 74 (38-126) U/L Troponin I < 0.012 (0.000-0.034) ng/mL NT-Pro-B Natriuret Pep (0-900) pg/mL Serum Total Protein 6.9 (6.3-8.2) g/dL Albumin 3.9 (3.5-5.0) g/dL Influenza Type A Ag (NEGATIVE) Influenza Type B Ag (NEGATIVE) RSV (PCR) (Negative) SARS-CoV-2 (PCR) (NEGATIVE) 12/08/19 Range/Units 10:27 WBC (4.0-10.5) K/mm3 RBC (4.1-5.4) M/mm3 Hgb (12.0-16.0) gm/dl Hct (35-47) % MCV (78-100) fl MCH (26-32) pg MCHC (32-36) g/dl RDW (11.5-14.0) % Plt Count (150-450) K/mm3 MPV (7.5-11.0) fl Gran % (36.0-66.0) % Eos # (Auto) (0-0.5) Absolute Lymphs (auto) (1.0-4.6) Absolute Monos (auto) (0.0-1.3) Lymphocytes % (24.0-44.0) % Monocytes % (0.0-12.0) % Eosinophils % (0.00-5.0) % Basophils % (0.0-0.4) % Absolute Granulocytes (1.4-6.9) Basophils # (0-0.4) D-Dimer (215-500) ng/mL Sodium (137-145) mmol/L Potassium (3.5-5.1) mmol/L Chloride (98-107) mmol/L Carbon Dioxide (22-30) mmol/L Anion Gap (5-15) MEQ/L BUN (7-17) mg/dL Creatinine (0.52-1.04) mg/dL Estimated GFR ML/MIN Glucose (74-106) mg/dL POC Glucometer 264 H (74 to 106) mg/dL Calcium (8.4-10.2) mg/dL Magnesium (1.6-2.3) mg/dL Total Bilirubin (0.2-1.3) mg/dL AST (14-36) U/L ALT (0-35) U/L Alkaline Phosphatase (38-126) U/L Troponin I (0.000-0.034) ng/mL NT-Pro-B Natriuret Pep (0-900) pg/mL Serum Total Protein (6.3-8.2) g/dL Albumin (3.5-5.0) g/dL Influenza Type A Ag (NEGATIVE) Influenza Type B Ag (NEGATIVE) RSV (PCR) (Negative) SARS-CoV-2 (PCR) (NEGATIVE) - Radiology Impressions Radiology Exams & Impressions: Radiology Procedures Category Date Time Status CHEST 1 VIEW (PORTABLE) Stat Exams 12/07/19 20:00 Completed - Other Procedures and Tests Respiratory Therapy 12/07/19 23:21 Peak Expiratory Flow Rate ONCE Respiratory Therapy Assessment DAILY 12/07/19 23:53 Oxygen Nasal Cannula 3 lpm Assessment/Plan (1) COPD with acute exacerbation Current Visit: Yes Status: Acute Assessment & Plan: Chief Complaint Diagnosis COPD exacerbation, Normocytic anemia, thrombocytosis, cough, hypoxia Allergies Allergy/AdvReac Type Severity Reaction Status Date / Time morphine Allergy Severe Fainting Verified 12/07/19 19:27 oxycodone Allergy Shortness Verified 12/07/19 19:28 of Breath Penicillins Allergy Verified 12/07/19 19:27 [place] AdvReac Intermediate Headache Verified 12/07/19 19:27 bupropion HCl AdvReac Mild Hives Verified 12/07/19 19:27 [From Wellbutrin] Vital Signs (Last 24 hours) Temp Pulse Resp BP Pulse Ox 12/08/19 08:00 97.7 F 84 20 122/71 99 12/08/19 07:37 91 H 22 95 12/08/19 03:59 97.8 F 93 H 25 H 121/65 97 12/08/19 02:34 88 16 97 12/08/19 00:31 77 14 96 12/08/19 00:16 98.1 F 80 16 148/67 96 12/07/19 23:53 96 12/07/19 23:28 77 14 100 12/07/19 23:10 99 12/07/19 23:00 70 18 96 12/07/19 22:07 78 128/64 99 12/07/19 21:03 86 143/89 99 12/07/19 20:41 86 154/83 99 12/07/19 20:08 99 12/07/19 19:28 97 H 18 168/95 99 Home Medications Medication Instructions Recorded Confirmed Last Taken Type Omeprazole 40 mg PO DAILY 12/07/19 12/07/19 Unknown History Current Medications Generic Name Dose Route Start Last Admin Trade Name Freq PRN Reason Stop Dose Admin Albuterol Sulfate 2 puff 12/08/19 07:53 Ventolin Common Canister IH 01/07/20 07:52 Q4H PRN PRN SHORTNESS OF BREATH Albuterol/Ipratropium 3 ml 12/08/19 03:00 12/08/19 07:29 Duoneb 0.5-3 Mg/3 Ml Neb IH 01/07/20 02:59 3 ml Q4HRT VALERY Administration Cephalexin HCl 500 mg 12/08/19 08:00 Keflex 500 Mg PO 01/07/20 07:59 Q6H VALERY Clonazepam 2 mg 12/08/19 01:30 12/08/19 01:44 Klonopin PO 01/07/20 01:29 2 mg TID VALERY Administration Famotidine 40 mg 12/08/19 10:00 Pepcid 20 Mg PO 01/07/20 09:59 BID VALERY Gabapentin 800 mg 12/08/19 01:29 12/08/19 01:44 Neurontin 400 Mg PO 01/07/20 01:28 800 mg TID VALERY Administration Doxycycline Hyclate 100 mg/ 100 mls @ 100 mls/hr 12/07/19 22:00 12/07/19 21:41 Dextrose IV 01/06/20 21:59 100 mls/hr Q12HT VALERY Administration Isosorbide Mononitrate 30 mg 12/08/19 10:00 Imdur 30 Mg PO 01/07/20 09:59 DAILY VALERY Levothyroxine Sodium 25 mcg 12/08/19 10:00 Synthroid 25 Mcg PO 01/07/20 09:59 DAILY VALERY Methylprednisolone Sodium Succinate 60 mg 12/08/19 00:00 12/08/19 06:07 Solu-Medrol 125 Mg IV 01/07/20 00:00 60 mg Q6HT VALERY Administration Multivitamins Therapeutic 1 tab 12/08/19 10:00 Theragran Multivitamin PO 01/07/20 09:59 DAILY VALERY Nicotine 21 mg 12/08/19 10:00 Nicoderm Cq 21 Mg TD 01/07/20 09:59 DAILY VALERY Nitroglycerin 0.4 mg 12/08/19 07:53 Nitrostat 0.4 Mg Tablet SL 01/07/20 07:52 UD PRN CHEST PAIN Pantoprazole Sodium 40 mg 12/08/19 10:00 Protonix 40mg Tablet PO 01/07/20 09:59 DAILY VALERY Quetiapine Fumarate 300 mg 12/08/19 01:30 12/08/19 01:44 Seroquel 100 Mg PO 01/07/20 01:29 300 mg QHS VALERY Administration Quetiapine Fumarate 200 mg 12/08/19 10:00 Seroquel 100 Mg PO 01/07/20 09:59 QAM VALERY Fluticasone/Salmeterol 2 puff 12/08/19 19:00 12/08/19 09:39 Advair Hfa 115/21 Common Canister* IH 01/07/20 18:59 2 puff BIDRT VALERY Administration Sertraline HCl 100 mg 12/08/19 10:00 Zoloft 50 Mg Tablet PO 01/07/20 09:59 DAILY VALERY Tizanidine HCl 4 mg 12/08/19 01:31 12/08/19 01:44 Zanaflex 4 Mg PO 01/07/20 01:30 4 mg TID PRN PRN Administration MUSCLE SPASMS Discontinued Medications Generic Name Dose Route Start Last Admin Trade Name Freq PRN Reason Stop Dose Admin Acetaminophen 975 mg 12/07/19 22:23 12/07/19 22:29 Tylenol 325 Mg PO 12/07/19 22:24 975 mg STAT STA Administration Acetaminophen Confirm 12/07/19 22:28 Tylenol 325 Mg Administered 12/07/19 22:29 Dose 975 mg .ROUTE .STK-MED ONE Albuterol/Ipratropium 3 ml 12/07/19 23:09 12/07/19 23:15 Duoneb 0.5-3 Mg/3 Ml Neb IH 12/07/19 23:10 3 ml STAT ONE Administration Albuterol/Ipratropium Confirm 12/07/19 23:14 Duoneb 0.5-3 Mg/3 Ml Neb Administered 12/07/19 23:15 Dose 3 ml IH .STK-MED ONE Doxycycline Hyclate Confirm 12/07/19 21:36 Vibramycin 100 Mg Administered 12/07/19 21:37 Dose 100 mg IV .STK-MED ONE Famotidine 20 mg 12/08/19 01:26 12/08/19 01:50 Pepcid 20 Mg PO 01/07/20 01:25 20 mg BID VALERY Administration Dextrose Confirm 12/07/19 21:36 D5w 100ml Mini Bag 100 Ml Administered 12/07/19 21:37 Dose 100 mls @ ud IV .STK-MED ONE Methylprednisolone Sodium Succinate 125 mg 12/07/19 21:25 12/07/19 21:32 Solu-Medrol 125 Mg IV 12/07/19 21:26 125 mg STAT ONE Administration Methylprednisolone Sodium Succinate Confirm 12/07/19 21:27 Solu-Medrol 125 Mg Administered 12/07/19 21:28 Dose 125 mg .ROUTE .STK-MED ONE Prednisone 60 mg 12/07/19 22:18 Deltasone 20 Mg PO 12/07/19 22:19 STAT ONE Intake & Output (Last 24 hours) 12/05/19 12/06/19 12/07/19 12/08/19 11:59 11:59 11:59 11:59 Intake Total 620 Output Total 300 Balance 320 Weight 75.1 kg Microbiology Results (Last 24 hours) 12/07/19 19:45 Blood Blood Culture Gram Stain - Pending 12/07/19 19:45 Blood Blood Culture - Pending 12/07/19 20:24 Blood Blood Culture Gram Stain - Pending 12/07/19 20:24 Blood Blood Culture - Pending Laboratory Results (Last 24 hours) 12/08/19 12/08/19 12/08/19 10:27 04:41 04:41 WBC 7.0 RBC 3.71 L Hgb 8.7 L Hct 30.5 L MCV 82.2 MCH 23.5 L MCHC 28.5 L RDW 21.2 H Plt Count 515 H MPV 9.5 Gran % Eos # (Auto) Absolute Lymphs (auto) Absolute Monos (auto) Lymphocytes % Monocytes % Eosinophils % Basophils % Absolute Granulocytes Basophils # D-Dimer Sodium 135 L Potassium 4.3 Chloride 104 Carbon Dioxide 29 Anion Gap 7.0 BUN 10 Creatinine 0.74 Estimated GFR > 60.0 Glucose 145 H POC Glucometer 264 H Calcium 9.1 Magnesium Total Bilirubin 0.20 AST 21 ALT 19 Alkaline Phosphatase 74 Troponin I NT-Pro-B Natriuret Pep Serum Total Protein 6.9 Albumin 3.9 Influenza Type A Ag Influenza Type B Ag RSV (PCR) SARS-CoV-2 (PCR) 12/07/19 12/07/19 12/07/19 22:58 20:25 20:24 WBC RBC Hgb Hct MCV MCH MCHC RDW Plt Count MPV Gran % Eos # (Auto) Absolute Lymphs (auto) Absolute Monos (auto) Lymphocytes % Monocytes % Eosinophils % Basophils % Absolute Granulocytes Basophils # D-Dimer 390 Sodium Potassium Chloride Carbon Dioxide Anion Gap BUN Creatinine Estimated GFR Glucose POC Glucometer Calcium Magnesium Total Bilirubin AST ALT Alkaline Phosphatase Troponin I < 0.012 NT-Pro-B Natriuret Pep Serum Total Protein Albumin Influenza Type A Ag NEGATIVE Influenza Type B Ag NEGATIVE RSV (PCR) NEGATIVE SARS-CoV-2 (PCR) 12/07/19 12/07/19 12/07/19 20:20 19:45 19:45 WBC 9.3 RBC 3.66 L Hgb 8.7 L Hct 29.8 L MCV 81.4 MCH 23.8 L MCHC 29.2 L RDW 21.3 H Plt Count 541 H MPV 9.2 Gran % 69.7 H Eos # (Auto) 0.07 Absolute Lymphs (auto) 1.93 Absolute Monos (auto) 0.77 Lymphocytes % 20.9 L Monocytes % 8.3 Eosinophils % 0.8 Basophils % 0.3 Absolute Granulocytes 6.45 Basophils # 0.03 D-Dimer Sodium 136 L Potassium 3.8 Chloride 105 Carbon Dioxide 29 Anion Gap 5.9 BUN 12 Creatinine 0.79 Estimated GFR > 60.0 Glucose 102 POC Glucometer Calcium 8.6 Magnesium 2.2 Total Bilirubin 0.20 AST 22 ALT 19 Alkaline Phosphatase 75 Troponin I NT-Pro-B Natriuret Pep 64.0 Serum Total Protein 6.9 Albumin 3.9 Influenza Type A Ag Influenza Type B Ag RSV (PCR) SARS-CoV-2 (PCR) NEGATIVE 12/07/19 19:45 WBC RBC Hgb Hct MCV MCH MCHC RDW Plt Count MPV Gran % Eos # (Auto) Absolute Lymphs (auto) Absolute Monos (auto) Lymphocytes % Monocytes % Eosinophils % Basophils % Absolute Granulocytes Basophils # D-Dimer Sodium Potassium Chloride Carbon Dioxide Anion Gap BUN Creatinine Estimated GFR Glucose POC Glucometer Calcium Magnesium Total Bilirubin AST ALT Alkaline Phosphatase Troponin I < 0.012 NT-Pro-B Natriuret Pep Serum Total Protein Albumin Influenza Type A Ag Influenza Type B Ag RSV (PCR) SARS-CoV-2 (PCR) Orders (Last 24 hours) Category Date Time Status Bedrest ROUTINE Activity 12/07/19 23:45 Active Assistant Commissioner STAT Care 12/07/19 20:00 Completed Code Status Order ROUTINE Care 12/07/19 23:45 Active EKG-ER Only STAT Care 12/07/19 20:00 Completed IV Care Q6H Care 12/07/19 23:45 Active IV Insertion STAT Care 12/07/19 20:00 Completed POCT Glucose Check Q6H Care 12/07/19 23:[address] in Observation ROUTINE Care 12/07/19 23:45 Active Pulse Oximetry (ED) STAT Care 12/07/19 20:00 Completed Betzy Gilmore ROUTINE Care 12/07/19 23:45 Active Telemetry q4h Care 12/07/19 23:45 Active Weight,Daily 0600 Care 12/07/19 23:45 Active Cardio-Pulmonary Rehab .as ordered Cons 12/08/19 00:16 Active Infection Control Consult ROUTINE Cons 12/08/19 00:54 Active Director Of Industrial Relations/Discharge Plan ROUTINE Cons 12/08/19 00:16 Active Director Of Industrial Relations/Discharge Plan ROUTINE Cons 12/08/19 00:54 Active Nutritional Admission Screen ONCE Diet 12/08/19 00:54 Active CHEST 1 VIEW (PORTABLE) Stat Exams 12/07/19 20:00 Completed BLOOD CULTURE Stat Lab 12/07/19 19:45 Received CBC AM.LAB Lab 12/08/19 04:41 Completed CBC W DIFF Stat Lab 12/07/19 19:45 Completed CMP AM.LAB Lab 12/08/19 04:41 Completed CMP Stat Lab 12/07/19 19:45 Completed D-DIMER QUANTITATIVE Stat Lab 12/07/19 20:25 Completed FLU/RSV Panel Stat Lab 12/07/19 20:24 Completed MAGNESIUM Stat Lab 12/07/19 19:45 Completed NT PRO BNP Stat Lab 12/07/19 19:45 Completed POCT GLUCOSE Stat Lab 12/08/19 10:27 Completed TROPONIN Q3H Lab 12/07/19 19:45 Completed TROPONIN Q3H Lab 12/07/19 22:58 Completed Acetaminophen 325 mg [Tylenol 325 mg] Med 12/07/19 22:28 Discontinued 975 mg .ROUTE .STK-MED ONE Acetaminophen 325 mg [Tylenol 325 mg] Med 12/07/19 22:23 Discontinued 975 mg PO STAT STA Albuterol Common Canister [Ventolin Common Canister* Med 12/08/19 07:53 Active ] 2 puff IH Q4H PRN PRN Albuterol/Ipratropium 3ml Neb* [DUONEB 0.5-3 MG/3 ml Med 12/07/19 23:14 Discontinued Neb] 3 ml IH .STK-MED ONE Albuterol/Ipratropium 3ml Neb* [DUONEB 0.5-3 MG/3 ml Med 12/08/19 03:00 Active Neb] 3 ml IH Q4HRT Albuterol/Ipratropium 3ml Neb* [DUONEB 0.5-3 MG/3 ml Med 12/07/19 23:09 Discontinued Neb] 3 ml IH STAT ONE Cephalexin Mh 500 mg [Keflex 500 mg] Med 12/08/19 08:00 Active 500 mg PO Q6H Clonazepam [Klonopin] Med 12/08/19 01:30 Active 2 mg PO TID D5w 100 ml [D5w 100ML Mini Bag 100 ML] 100 ml Med 12/07/19 21:36 Discontinued IV UD Doxycycline Hyclate 100 mg [Vibramycin 100 mg] Med 12/07/19 21:36 Discontinued 100 mg IV .STK-MED ONE Doxycycline Hyclate 100 mg [Vibramycin 100 mg] Med 12/07/19 22:00 Active 100 mg D5w 100 ml Mini-Bag Plus [Dextrose 5%/Water IV Soln. 100ML PLUS BAG] 100 ml IV Q12HT Famotidine 20 mg [Pepcid 20 MG] Med 12/08/19 01:26 Discontinued 20 mg PO BID Famotidine 20 mg [Pepcid 20 MG] Med 12/08/19 10:00 Active 40 mg PO BID Flu Vacc [id number](6Mos Up)/Pf [Fluzone Quad [id number] Med 12/08/19 00:16 Discontinued Syringe] 60 mcg IM .ONCE ONE Fluticasone/Salmeterol 115/21 [Advair Hfa 115/21 Common Med 12/08/19 19:00 Active canister*] 2 puff IH BIDRT Gabapentin 400 mg [Neurontin 400 MG] Med 12/08/19 01:29 Active 800 mg PO TID Isosorbide Mononitrate 30 mg [Imdur 30 MG] Med 12/08/19 10:00 Active 30 mg PO DAILY Levothyroxine Sodium 25 Mcg [Synthroid 25 Mcg] Med 12/08/19 10:00 Active 25 mcg PO DAILY Methylprednis Sod Succ 125 mg* [solu-MEDROL 125 MG] Med 12/07/19 21:27 Discontinued 125 mg .ROUTE .STK-MED ONE Methylprednis Sod Succ 125 mg* [solu-MEDROL 125 MG] Med 12/07/19 21:25 Discontinued 125 mg IV STAT ONE Methylprednis Sod Succ 125 mg* [solu-MEDROL 125 MG] Med 12/08/19 00:00 Active 60 mg IV Q6HT Multivitamins,Therapeutic Tab* [Theragran Multivitamin* Med 12/08/19 10:00 Active ] 1 tab PO DAILY Nicotine 21 mg [Nicoderm CQ 21 MG] Med 12/08/19 10:00 Active 21 mg TD DAILY Nitroglycerin 0.4 mg Tablet [Nitrostat 0.4 MG Tablet Med 12/08/19 07:53 Active ] 0.4 mg SL UD PRN PANTOPRAZOLE 40 mg Tablet [Protonix 40MG Tablet] Med 12/08/19 10:00 Active 40 mg PO DAILY Prednisone 20 mg [Deltasone 20 mg] Med 12/07/19 22:18 Discontinued 60 mg PO STAT ONE Quetiapine Fumarate 100 mg [Seroquel 100 MG] Med 12/08/19 10:00 Active 200 mg PO QAM Quetiapine Fumarate 100 mg [Seroquel 100 MG] Med 12/08/19 01:30 Active 300 mg PO QHS Sertraline HCl 50 mg [Zoloft 50 mg Tablet] Med 12/08/19 10:00 Active 100 mg PO DAILY Tizanidine HCl 4 mg [Zanaflex 4 MG] Med 12/08/19 01:31 Active 4 mg PO TID PRN PRN Oxygen Nasal Cannula 3 lpm RT 12/07/19 23:53 Active Peak Expiratory Flow Rate ONCE RT 12/07/19 23:21 Active Pulse Oximetry .spot check RT 12/07/19 23:45 Active RT Screen per Nursing Assess ONCE RT 12/08/19 00:54 Completed Respiratory Therapy Assessment DAILY RT 12/07/19 23:21 Active Smoking Cessation Education ONCE RT 12/08/19 00:54 Completed Code(s): J44.1 - CHRONIC OBSTRUCTIVE PULMONARY DISEASE W (ACUTE) EXACERBATION (2) Cough Current Visit: Yes Status: Acute Code(s): R05 - COUGH (3) Hypoxia Current Visit: Yes Status: Acute Code(s): R09.02 - HYPOXEMIA (4) Normocytic anemia Current Visit: Yes Status: Acute Code(s): D64.9 - ANEMIA, UNSPECIFIED
[2019-12-08] MEDS: VIBRAMYCIN 100 MG*** 100 MG in Dextrose 5%/Water IV Soln. 100ML PLUS BAG 100 ML IV SCH (11:06)
[2019-12-08 13:04] VITALS: BP 120/55; PULSE 94; O2SAT 95
[2019-12-08] MEDS ORDERED: Advair Hfa 115/21 Common canister IH SCH (19:00)
== END 2019-12-08 14:14 | disposition home or self-care (01) ==
LOC: ED 19:20 → MED SURG 23:39
PROVIDERS: ADMIT General Practice; ATTEND General Practice
DX: J44.1 Chronic obstructive pulmonary disease with (acute) exacerbation (principal); Z99.81 Dependence on supplemental oxygen; Z79.899 Other long term (current) drug therapy; E78.00 Pure hypercholesterolemia, unspecified; R09.02 Hypoxemia; D64.9 Anemia, unspecified; E03.9 Hypothyroidism, unspecified; Z86.79 Personal history of other diseases of the circulatory system; R06.2 Wheezing
CPT/HCPCS: 36000; 36415; 71045; 80053; 82962; 83036; 83735; 83880; 84484; 85025; 85027; 85379; 87040; 87631; 90686; 93005; 93041; 93268; 94150; 94640; 94760; 96374; 99285; G0008; J2930; U0003; A9270-GY; G0378

== ENCOUNTER 2019-12-21 16:41 | Inpatient (IN) | payer MEDICARE ==
[2019-12-21] MEDS ORDERED: VENTOLIN COMMON CANISTER IH ONE (17:08)
--- NOTE | 2019-12-21 17:23 | ERPHSYRPT ---
- History of Present Illness Source: patient Patient Subjective Stated Complaint: pt for increase sob since yesterday,with cough, no fever, was released from hospital 2 weeks ago for same problem. Triage Nursing Assessment: pt alert, resp labored, pursed lips at times, face mask in place skin w/d/p. moves all ext well, no edema Physician History: 64 yo WF who is 3L O2 dep presents w increasing dyspnea x 2 days. Pt has coryza/Mild cough but denies chest pain/fever/N/V/D/melena/hematochezia. She continues to smoke 1/2 ppd. Timing/Duration: day(s) (2 days) Activities at Onset: rest Severity of Dyspnea-Max: moderate Severity of Dyspnea-Current: moderate Possible Cause: frequent episodes Modifying Factors: Improves With: nothing Associated Symptoms: wheezing, weakness, No chest pain/discomfort, No edema, No fever, No insomnia, No loss of appetite, No lightheadedness, No ankle swelling, No chills, No hemoptysis, No calf pain, No dizziness, No heaviness, No heart racing, No lightheadedness, No leg swelling, No muscle spasms feet, No muscle spasms hands, No painful breathing, No productive cough, No sweating, No tightness, No tingling face, No tingling hands Allergies/Adverse Reactions: morphine Allergy (Severe, Verified 12/07/19 19:27) Fainting oxycodone Allergy (Verified 12/07/19 19:28) Shortness of Breath Penicillins Allergy (Verified 12/07/19 19:27) C[place]ut Adverse Reaction (Intermediate, Verified 12/07/19 19:27) Headache bupropion HCl [From Wellbutrin] Adverse Reaction (Mild, Verified 12/07/19 19:27) Hives Home Medications: Albuterol/Ipratropium Mdi [Combivent Inhaler] 1 puff IH Q4HWA 12/29/12 [History] Clonazepam 0.5 mg [Klonopin 0.5 MG] 2 mg PO TID 12/29/12 [History] Famotidine 20 mg [Pepcid 20 MG] 40 mg PO BID 12/29/12 [History] Fluticasone/Salmeterol Disc [Advair 250-50 Diskus 14 Dose] 1 puff IH BID 12/29/12 [History] Sertraline HCl 100 mg [Zoloft 100 MG] 100 mg PO DAILY 12/17/13 [History] Isosorbide Mononitrate 30 mg [Imdur 30 MG] 30 mg PO DAILY 11/05/14 [History] Tizanidine HCl 4 mg [Zanaflex 4 MG] 4 mg PO TID 01/16/15 [History] Levothyroxine Sodium 25 Mcg [Synthroid 25 Mcg] 25 mcg PO DAILY 10/17/15 [History] Quetiapine Fumarate [Seroquel] 200 mg PO QAM 10/17/15 [History] Vits W-Ca,Fe,FA(<1Mg) [] 1 each PO DAILY 10/18/15 [History] Nitroglycerin 0.4 mg Tablet [Nitrostat 0.4 MG Tablet] 0.4 mg SL UD PRN 11/15/15 [History] Albuterol Common Canister [Ventolin Common Canister] 2 puff IH Q4-6HPRN PRN 07/08/19 [History] Quetiapine Fumarate 300 mg PO QHS 07/08/19 [History] predniSONE [Prednisone] 1 ea BID 12/02/19 [History] Omeprazole 40 mg PO DAILY 12/07/19 [History] Hx Tetanus, Diphtheria Vaccination/Date Given: Yes (unknown) Hx Influenza Vaccination/Date Given: Yes Hx Pneumococcal Vaccination/Date Given: No Immunizations Up to Date: Yes Travel Risk - International Travel Have you traveled outside of the country in past 3 weeks: No - Coronavirus Screening Are you exhibiting any of the following symptoms?: Yes Symptoms: Shortness of Breath Close contact with a COVID-19 positive Pt in past 14-21 Days: No - Review of Systems Constitutional: Fatigue, Lethargy, Weakness, No Fever, No Chills, No Malaise, No Night Sweats, No Weight Loss Eyes: No Symptoms Ears, Nose, & Throat: No Symptoms, Sinus Drainage Respiratory: Cough, Dyspnea, Dyspnea on Exertion (SCOTT), Wheezing Cardiac: No Symptoms Abdominal/Gastrointestinal: No Symptoms Genitourinary Symptoms: No Symptoms Musculoskeletal: No Symptoms Skin: No Symptoms Neurological: No Symptoms Psychological: No Symptoms Endocrine: No Symptoms Hematologic/Lymphatic: No Symptoms Immunological/Allergic: No Symptoms - Past Medical History Pertinent Past Medical History: Yes Neurological History: Migraines ENT History: No Pertinent History Cardiac History: Congestive Heart Failure, Coronary Artery Disease, High Cholesterol Respiratory History: Asthma, Bronchitis, COPD, Pneumonia Endocrine Medical History: Hypothyroidism Musculoskeletal History: Arthritis GI Medical History: GERD, Hernia, Polyps History: No Pertinent History Psycho-Social History: Anxiety, Bipolar, Depression Female Reproductive Disorders: Fibroids Other Medical History: 2 LEAKY VALVES. BORDERLINE PERSONALITY DISORDER, PTSD, manic depressive. bone deficiency - Past Surgical History Past Surgical History: Yes Neuro Surgical History: No Pertinent History Cardiac: Cardiac Catheterization Respiratory: No Pertinent History Gastrointestinal: Other Genitourinary: No Pertinent History Musculoskeletal: Other Female Surgical History: Section Other Surgical History: ARM SURGERY, 2 c-sections, EGD with dilitation, Co lonoscopy, heart cathx2 - Social History Smoking Status: Current every day smoker How long have you smoked: "40 years" Exposure to second hand smoke: Yes Alcohol Use: Socially Drug Use: marijuana Patient Lives Alone: No Significant Family History: no pertinent family hx - Female History Hx Last Menstrual Period: post - Nursing Vital Signs Nursing Vital Signs: Initial Vital Signs Temperature 98.7 F 12/21/19 17:00 Pulse Rate 98 H 12/21/19 17:00 Respiratory Rate 30 H 12/21/19 17:00 Blood Pressure 136/94 12/21/19 17:00 O2 Sat by Pulse Oximetry 100 12/21/19 17:00 Pain Scale Pain Intensity 0 - Physical Exam General Appearance: mild distress Eye Exam: PERRL/EOMI, eyes nml inspection Ears, Nose, Throat Exam: normal pharynx Neck Exam: normal inspection, non-tender, supple, full range of motion, No Brudzinski, No Kernig's, No meningismus, No carotid bruit Respiratory Exam: respiratory distress (Mild), airway intact, rhonchi (Scattered rhonchi), wheezing (Scattered wheezes) Cardiovascular/Chest Exam: normal heart sounds, regular rate/rhythm, normal peripheral pulses, No murmur, No edema, No JVD Abdominal/Gastrointestinal Exam: soft, normal bowel sounds, No tenderness Rectal Exam: deferred Extremity Exam: non-tender, normal range of motion, normal inspection, normal capillary refill Neurologic Exam: alert, oriented x 3, cooperative, ballaster II-XII nml as tested, nor mal mood/affect, sensation nml, No motor deficits, No sensory deficit Skin Exam: normal color, warm, dry, No rash Lymphatic Exam: No adenopathy SpO2 Interpretation: normal SpO2: 100 O2 Delivery: Nasal Cannula - Course EKG Interpreted by Me: RATE (NSR/R99/Borderline prolonged QTc/IRBBB/Nonspecific ST-Twave changes) - Radiology Exams Chest X-ray Interpretation: Interpreted by me (Nothing acute) Ordered Tests: Active Orders 24 hr Category Date Time Status EKG-ER Only STAT Care 12/21/19 17:09 Completed Heart-Healthy Diet Diet 12/21/19 Breakfast Active CHEST 1 VIEW (PORTABLE) Stat Exams 12/21/19 17:09 Taken BLOOD CULTURE Stat Lab 12/21/19 19:35 Received CBC W DIFF AM.LAB Lab 12/22/19 04:00 Ordered CBC W DIFF Stat Lab 12/21/19 17:20 Completed CMP AM.LAB Lab 12/22/19 04:00 Ordered CMP Stat Lab 12/21/19 17:20 Completed Lactic Acid Stat Lab 12/21/19 17:12 Completed NT PRO BNP Stat Lab 12/21/19 17:20 Completed PROTIME WITH INR Stat Lab 12/21/19 17:20 Completed PTT Stat Lab 12/21/19 17:20 Completed TROPONIN Q3H Lab 12/21/19 17:20 Completed TROPONIN Q3H Lab 12/21/19 19:35 Completed Transfer Order Routine Transfer 12/21/19 Completed Medication Summary Generic Name Dose Route Start Last Admin Trade Name Freq PRN Reason Stop Dose Admin Acetaminophen 650 mg 12/21/19 19:30 Tylenol 325 Mg PO 01/20/20 19:29 Q4H PRN PRN PAIN AND/OR FEVER Albuterol/Ipratropium 3 ml 12/21/19 23:00 12/21/19 20:58 Duoneb 0.5-3 Mg/3 Ml Neb IH 01/20/20 22:59 3 ml Q4HRT VALERY Administration Clonazepam 2 mg 12/22/19 10:00 12/21/19 23:48 Klonopin PO 01/21/20 09:59 2 mg TID VALERY Administration Enoxaparin Sodium 40 mg 12/22/19 10:00 Enoxaparin Sodium SQ 01/21/20 09:59 DAILY VALERY Famotidine 40 mg 12/21/19 23:30 Famotidine 10mg Tablet PO 01/20/20 23:29 BID VALERY Gabapentin 800 mg 12/21/19 23:30 12/21/19 23:23 Neurontin 400 Mg PO 01/20/20 23:29 800 mg TID VALERY Administration Sodium Chloride 1,000 mls @ 80 mls/hr 12/21/19 19:30 12/21/19 23:24 Sodium Chloride 0.9% 1000 Ml IV 01/20/20 19:29 80 mls/hr .[id number] VALERY Administration Methylprednisolone Sodium Succinate 80 mg 12/21/19 19:30 12/21/19 23:37 Solu-Medrol 125 Mg IV 01/20/20 19:29 80 mg Q6H VALERY Administration Nitroglycerin 0.4 mg 12/21/19 23:12 Nitrostat 0.4 Mg Tablet SL 01/20/20 23:11 Q5MIN PRN MR X 3 PRN CHEST PAIN Ondansetron HCl 4 mg 12/21/19 19:30 Zofran 4 Mg/2 Ml Vial IV 01/20/20 19:29 Q6H PRN PRN NAUSEA/VOMITING Pantoprazole Sodium 40 mg 12/22/19 10:00 Protonix 40 Mg Iv IV 01/21/20 09:59 Q24H10 VALERY Quetiapine Fumarate 300 mg 12/21/19 23:30 12/21/19 23:24 Seroquel 100 Mg PO 01/20/20 23:29 300 mg HS VALERY Administration Tizanidine HCl 4 mg 12/21/19 23:30 12/21/19 23:23 Zanaflex 4 Mg PO 01/20/20 23:29 4 mg TID VALERY Administration Discontinued Medications Generic Name Dose Route Start Last Admin Trade Name Freq PRN Reason Stop Dose Admin Albuterol Sulfate 4 puff 12/21/19 17:08 12/21/19 17:00 Ventolin Common Canister IH 12/21/19 17:09 4 puff STAT ONE Administration Clonazepam Confirm 12/21/19 23:00 Klonopin Administered 12/21/19 23:01 Dose 2 mg .ROUTE .STK-MED ONE Clonazepam 2 mg 12/21/19 23:30 Klonopin 0.5 Mg PO 01/20/20 23:29 TID VALERY Gabapentin Confirm 12/21/19 23:02 Neurontin 400 Mg Administered 12/21/19 23:03 Dose 800 mg .ROUTE .STK-MED ONE Methylprednisolone Sodium Succinate 125 mg 12/21/19 18:16 12/21/19 18:20 Solu-Medrol 125 Mg IV 12/21/19 18:17 125 mg STAT ONE Administration Methylprednisolone Sodium Succinate Confirm 12/21/19 18:16 Solu-Medrol 125 Mg Administered 12/21/19 18:17 Dose 125 mg .ROUTE .STK-MED ONE Quetiapine Fumarate Confirm 12/21/19 23:01 Seroquel 100 Mg Administered 12/21/19 23:02 Dose 300 mg .ROUTE .STK-MED ONE Tizanidine HCl Confirm 12/21/19 23:01 Zanaflex 4 Mg Administered 12/21/19 23:02 Dose 4 mg .ROUTE .STK-MED ONE Lab/Rad Data: Laboratory Result Diagrams 12/21/19 17:20 12/21/19 17:20 Laboratory Results 12/21/19 12/21/19 12/21/19 Range/Units 19:35 18:19 17:20 WBC (4.0-10.5) K/mm3 RBC (4.1-5.4) M/mm3 Hgb (12.0-16.0) gm/dl Hct (35-47) % MCV (78-100) fl MCH (26-32) pg MCHC (32-36) g/dl RDW (11.5-14.0) % Plt Count (150-450) K/mm3 MPV (7.5-11.0) fl Gran % (36.0-66.0) % Eos # (Auto) (0-0.5) Absolute Lymphs (auto) (1.0-4.6) Absolute Monos (auto) (0.0-1.3) Lymphocytes % (24.0-44.0) % Monocytes % (0.0-12.0) % Eosinophils % (0.00-5.0) % Basophils % (0.0-0.4) % Absolute Granulocytes (1.4-6.9) Basophils # (0-0.4) PT (9.95-12.35) SECONDS INR (0.8-3.0) APTT (25.3-37.0) SECONDS Sodium (137-145) mmol/L Potassium (3.5-5.1) mmol/L Chloride (98-107) mmol/L Carbon Dioxide (22-30) mmol/L Anion Gap (5-15) MEQ/L BUN (7-17) mg/dL Creatinine (0.52-1.04) mg/dL Estimated GFR ML/MIN Glucose (74-106) mg/dL Lactic Acid (0.4-2.0) Calcium (8.4-10.2) mg/dL Total Bilirubin (0.2-1.3) mg/dL AST (14-36) U/L ALT (0-35) U/L Alkaline Phosphatase (38-126) U/L Troponin I < 0.012 < 0.012 (0.000-0.034) ng/mL NT-Pro-B Natriuret Pep (0-900) pg/mL Serum Total Protein (6.3-8.2) g/dL Albumin (3.5-5.0) g/dL SARS-CoV-2 (PCR) NEGATIVE (NEGATIVE) Slides for Path Review 12/21/19 12/21/19 12/21/19 Range/Units 17:20 17:20 17:20 WBC 9.9 (4.0-10.5) K/mm3 RBC 3.71 L (4.1-5.4) M/mm3 Hgb 8.7 L (12.0-16.0) gm/dl Hct 30.4 L (35-47) % MCV 81.9 (78-100) fl MCH 23.5 L (26-32) pg MCHC 28.6 L (32-36) g/dl RDW 19.4 H (11.5-14.0) % Plt Count 519 H (150-450) K/mm3 MPV 9.6 (7.5-11.0) fl Gran % 83.4 H (36.0-66.0) % Eos # (Auto) 0.08 (0-0.5) Absolute Lymphs (auto) 0.89 L (1.0-4.6) Absolute Monos (auto) 0.60 (0.0-1.3) Lymphocytes % 9.0 L (24.0-44.0) % Monocytes % 6.1 (0.0-12.0) % Eosinophils % 0.8 (0.00-5.0) % Basophils % 0.7 (0.0-0.4) % Absolute Granulocytes 8.27 H (1.4-6.9) Basophils # 0.07 (0-0.4) PT 10.6 (9.95-12.35) SECONDS INR 0.94 (0.8-3.0) APTT 24.7 L (25.3-37.0) SECONDS Sodium 137 (137-145) mmol/L Potassium 3.8 (3.5-5.1) mmol/L Chloride 104 (98-107) mmol/L Carbon Dioxide 30 (22-30) mmol/L Anion Gap 7.1 (5-15) MEQ/L BUN 8 (7-17) mg/dL Creatinine 0.68 (0.52-1.04) mg/dL Estimated GFR > 60.0 ML/MIN Glucose 119 H (74-106) mg/dL Lactic Acid (0.4-2.0) Calcium 8.9 (8.4-10.2) mg/dL Total Bilirubin 0.20 (0.2-1.3) mg/dL AST 24 (14-36) U/L ALT 16 (0-35) U/L Alkaline Phosphatase 82 (38-126) U/L Troponin I (0.000-0.034) ng/mL NT-Pro-B Natriuret Pep 111 (0-900) pg/mL Serum Total Protein 7.4 (6.3-8.2) g/dL Albumin 4.2 (3.5-5.0) g/dL SARS-CoV-2 (PCR) (NEGATIVE) Slides for Path Review YES 12/21/19 Range/Units 17:12 WBC (4.0-10.5) K/mm3 RBC (4.1-5.4) M/mm3 Hgb (12.0-16.0) gm/dl Hct (35-47) % MCV (78-100) fl MCH (26-32) pg MCHC (32-36) g/dl RDW (11.5-14.0) % Plt Count (150-450) K/mm3 MPV (7.5-11.0) fl Gran % (36.0-66.0) % Eos # (Auto) (0-0.5) Absolute Lymphs (auto) (1.0-4.6) Absolute Monos (auto) (0.0-1.3) Lymphocytes % (24.0-44.0) % Monocytes % (0.0-12.0) % Eosinophils % (0.00-5.0) % Basophils % (0.0-0.4) % Absolute Granulocytes (1.4-6.9) Basophils # (0-0.4) PT (9.95-12.35) SECONDS INR (0.8-3.0) APTT (25.3-37.0) SECONDS Sodium (137-145) mmol/L Potassium (3.5-5.1) mmol/L Chloride (98-107) mmol/L Carbon Dioxide (22-30) mmol/L Anion Gap (5-15) MEQ/L BUN (7-17) mg/dL Creatinine (0.52-1.04) mg/dL Estimated GFR ML/MIN Glucose (74-106) mg/dL Lactic Acid 1.4 (0.4-2.0) Calcium (8.4-10.2) mg/dL Total Bilirubin (0.2-1.3) mg/dL AST (14-36) U/L ALT (0-35) U/L Alkaline Phosphatase (38-126) U/L Troponin I (0.000-0.034) ng/mL NT-Pro-B Natriuret Pep (0-900) pg/mL Serum Total Protein (6.3-8.2) g/dL Albumin (3.5-5.0) g/dL SARS-CoV-2 (PCR) (NEGATIVE) Slides for Path Review - Progress Progress Note: 12/21/19 18:[address] Garrison Discussed with : Bandar Counseled pt/family regarding: lab results, diagnosis, rad results, smoking c essation - Departure Departure Disposition: Observation Clinical Impression: COPD (chronic obstructive pulmonary disease) Condition: Stable Critical Care Time: No
[2019-12-21 17:31] LABS: Absolute Neutrophil Ct (ANC) 8.27 (1.4-6.9); BASOPHIL % 0.7 % (0.0-0.4); Basophil (Absolute #) 0.07 (0-0.4); Eosinophil % 0.8 % (0.00-5.0); Eosinophil (Absolute #) 0.08 (0-0.5); Hematocrit 30.4 % (35-47); Hemoglobin 8.7 gm/dl (12.0-16.0); Lymphocyte (Absolute #) 0.89 (1.0-4.6); Mean Cell Volume 81.9 fl (78-100); Mean Corpuscular Hemoglobin 23.5 pg (26-32); Mean Corpuscular Hgb Concent. 28.6 g/dl (32-36); Mean Platelet Volume 9.6 fl (7.5-11.0); Monocytes % 6.1 % (0.0-12.0); Neutrophil % 83.4 % (36.0-66.0); Platelet Count 519 K/mm3 (150-450); Red Blood Count 3.71 M/mm3 (4.1-5.4); Red Cell Distribution Width 19.4 % (11.5-14.0); White Blood Count 9.9 K/mm3 (4.0-10.5)
[2019-12-21 17:42] LABS: INR 0.94 (0.8-3.0); PROTIME 10.6 SECONDS (9.95-12.35)
[2019-12-21 17:45] LABS: PTT 24.7 SECONDS (25.3-37.0)
[2019-12-21 17:55] LABS: ALBUMIN 4.2 g/dL (3.5-5.0); ALKALINE PHOSPHATASE 82 U/L (38-126); ANION GAP 7.1 MEQ/L (5-15); BLOOD UREA NITROGEN 8 mg/dL (7-17); CHLORIDE 104 mmol/L (98-107); Calcium 8.9 mg/dL (8.4-10.2); Carbon Dioxide 30 mmol/L (22-30); Creatinine 1 0.68 mg/dL (0.52-1.04); EST GLOMERULAR FILTRATION RATE > 60.0 ML/MIN; Glucose 119 mg/dL (74-106); NT PRO BNP 111 pg/mL (0-900); Potassium 3.8 mmol/L (3.5-5.1); SGOT/AST 24 U/L (14-36); SGPT/ALT 16 U/L (0-35); SODIUM 137 mmol/L (137-145); Total Protein 7.4 g/dL (6.3-8.2)
[2019-12-21] MEDS ORDERED: solu-MEDROL 125 MG ONE (18:16)
[2019-12-21] MEDS ORDERED: solu-MEDROL 125 MG IV ONE (18:16)
[2019-12-21] MEDS ORDERED: solu-MEDROL 125 MG IV SCH (19:30)
[2019-12-21] MEDS ORDERED: Zofran 4 MG/2 ML VIAL IV PRN (19:30)
[2019-12-21 20:28] LABS: Slide Review 1 YES
[2019-12-21] MEDS: DUONEB 0.5-3 MG/3 ml Neb IH SCH (20:58)
[2019-12-21] MEDS ORDERED: KLONOPIN ONE (23:00)
[2019-12-21] MEDS ORDERED: Zanaflex 4 MG ONE (23:01)
[2019-12-21] MEDS ORDERED: Seroquel 100 MG ONE (23:01)
[2019-12-21] MEDS ORDERED: Neurontin 400 MG ONE (23:02)
[2019-12-21] MEDS ORDERED: Nitrostat 0.4 MG Tablet SL PRN (23:12)
[2019-12-21] MEDS: Neurontin 400 MG PO SCH (23:23)
[2019-12-21] MEDS: Zanaflex 4 MG PO SCH (23:23)
[2019-12-21] MEDS: Seroquel 100 MG PO SCH (23:24)
[2019-12-21] MEDS: Sodium Chloride 0.9% 1000 ML 1,000 ML IV SCH (23:24)
[2019-12-21] MEDS ORDERED: Klonopin 0.5 MG PO SCH (23:30)
[2019-12-21] MEDS: KLONOPIN PO SCH (23:48)
[2019-12-22] MEDS: DUONEB 0.5-3 MG/3 ml Neb IH SCH ×6 (02:29→22:47)
[2019-12-22 06:02] LABS: Absolute Neutrophil Ct (ANC) 4.51 (1.4-6.9); BASOPHIL % 0.2 % (0.0-0.4); Basophil (Absolute #) 0.01 (0-0.4); Eosinophil % 0.2 % (0.00-5.0); Eosinophil (Absolute #) 0.01 (0-0.5); Hemoglobin 7.8 gm/dl (12.0-16.0); Lymphocytes % 11.5 % (24.0-44.0); Mean Cell Volume 82.4 fl (78-100); Mean Corpuscular Hemoglobin 22.9 pg (26-32); Mean Corpuscular Hgb Concent. 27.9 g/dl (32-36); Mean Platelet Volume 9.6 fl (7.5-11.0); Monocyte (Absolute #) 0.08 (0.0-1.3); Monocytes % 1.5 % (0.0-12.0); Neutrophil % 86.6 % (36.0-66.0); Platelet Count 464 K/mm3 (150-450); Red Cell Distribution Width 19.2 % (11.5-14.0); White Blood Count 5.2 K/mm3 (4.0-10.5)
[2019-12-22 06:21] LABS: ALBUMIN 3.5 g/dL (3.5-5.0); ALKALINE PHOSPHATASE 67 U/L (38-126); ANION GAP 5.9 MEQ/L (5-15); BLOOD UREA NITROGEN 9 mg/dL (7-17); CHLORIDE 104 mmol/L (98-107); Calcium 8.7 mg/dL (8.4-10.2); Carbon Dioxide 30 mmol/L (22-30); EST GLOMERULAR FILTRATION RATE > 60.0 ML/MIN; Glucose 137 mg/dL (74-106); Potassium 4.3 mmol/L (3.5-5.1); SGOT/AST 17 U/L (14-36); SGPT/ALT 15 U/L (0-35); SODIUM 136 mmol/L (137-145); Total Protein 6.6 g/dL (6.3-8.2)
[2019-12-22 06:36] LABS: Slide Review 1 YES
[2019-12-22] MEDS: solu-MEDROL 125 MG IV SCH ×4 (07:20→23:38)
[2019-12-22] MEDS ORDERED: VENTOLIN COMMON CANISTER IH PRN (07:26)
--- NOTE | 2019-12-22 09:02 | XRAY ---
Indication: Cough and short of breath. Suspect Covid 19. Comparison: December 07, 2019. Portable chest again demonstrates normal heart and lungs with incidental small hiatal hernia. No new/acute findings.
[2019-12-22] MEDS ORDERED: NON-FORMULARY ITEM (Prenatal Vits W-Ca,Fe,Fa(<1mg) [Prenatal] 1 EACH) PO SCH (10:00)
[2019-12-22] MEDS ORDERED: NON-FORMULARY ITEM (Sertraline Hcl 100 Mg [Zoloft 100 Mg] 100 MG) PO SCH (10:00)
[2019-12-22] MEDS ORDERED: ADVAIR 250-50 DISKUS 14 DOSE IH SCH (10:00)
[2019-12-22] MEDS: Pepcid 20 MG PO SCH ×2 (11:11→22:48)
[2019-12-22] MEDS: Advair Hfa 115/21 Common canister IH SCH ×2 (11:11→18:53)
[2019-12-22] MEDS: THERAGRAN MULTIVITAMIN PO SCH (11:11)
[2019-12-22] MEDS: Seroquel 100 MG PO SCH ×2 (11:12→22:48)
[2019-12-22] MEDS: Neurontin 400 MG PO SCH ×3 (11:12→22:48)
[2019-12-22] MEDS: Zanaflex 4 MG PO SCH ×3 (11:13→22:48)
[2019-12-22] MEDS: ZOLOFT 50 MG TABLET PO SCH (11:13)
[2019-12-22] MEDS: KLONOPIN PO SCH ×3 (11:13→22:48)
[2019-12-22] MEDS: Imdur 30 MG PO SCH (11:13)
[2019-12-22] MEDS: SYNTHROID 25 MCG PO SCH (11:14)
[2019-12-22] MEDS: PROTONIX 40 MG IV IV SCH (11:14)
[2019-12-22] MEDS: ENOXAPARIN SODIUM SQ SCH (11:14)
[2019-12-22] MEDS: Nicoderm CQ 21 MG TD SCH (11:14)
[2019-12-22] MEDS: Sodium Chloride 0.9% 1000 ML 1,000 ML IV SCH (11:33)
--- NOTE | 2019-12-22 11:43 | PCM.HP ---
History of Present Illness - Chief Complaint Chief Complaint: shortness of breath for 3-4 days History of Present Illness: is a 64 year old female, who is 3L O2 dep presents w increasing dyspnea x 2 days. Pt has coryza/Mild cough but denies chest pain/fever/N/V/D/melena/hematochezia. She continues to smoke 1/2 ppd. Timing/Duration: day(s) (2 days) Activities at Onset: rest Severity of Dyspnea-Max: moderate Severity of Dyspnea-Current: moderate Possible Cause: frequent episodes Modifying Factors: Improves With: nothing Associated Symptoms: wheezing, weakness, No chest pain/discomfort, No edema, No fever, No insomnia, No loss of appetite, No lightheadedness, No ankle swelling, No chills, No hemoptysis, No calf pain, No dizziness, No heaviness, No heart racing, No lightheadedness, No leg swelling, No muscle spasms feet, No muscle spasms hands, No painful breathing, No productive cough, No sweating, No tightness, No tingling face, No tingling hands - Review of Systems Constitutional: No Fever, No Chills Eyes: No Symptoms Ears, Nose, & Throat: No Symptoms Respiratory: Cough, Orthopnea, Short Of Breath, Wheezing Cardiac: No Chest Pain, No Edema, No Syncope Abdominal/Gastrointestinal: No Abdominal Pain, No Nausea, No Vomiting, No Diarrhea Genitourinary Symptoms: No Dysuria Musculoskeletal: No Back Pain, No Neck Pain Skin: No Rash Neurological: No Dizziness, No Focal Weakness, No Sensory Changes Psychological: No Symptoms Endocrine: No Symptoms Hematologic/Lymphatic: No Symptoms Immunological/Allergic: No Symptoms Medications & Allergies Home Medications: Home Medication List Albuterol/Ipratropium Mdi [Combivent Inhaler] 1 puff IH Q4HWA 12/29/12 [History Confirmed 12/22/19] Clonazepam 0.5 mg [Klonopin 0.5 MG] 2 mg PO TID 12/29/12 [History Confirmed 12/22/19] Famotidine 20 mg [Pepcid 20 MG] 40 mg PO BID 12/29/12 [History Confirmed 12/22/19] Fluticasone/Salmeterol Disc [Advair 250-50 Diskus 14 Dose] 1 puff IH BID 12/29/12 [History Confirmed 12/22/19] Sertraline HCl 100 mg [Zoloft 100 MG] 100 mg PO DAILY 12/17/13 [History Confirmed 12/22/19] Isosorbide Mononitrate 30 mg [Imdur 30 MG] 30 mg PO DAILY 11/05/14 [History Confirmed 12/22/19] Tizanidine HCl 4 mg [Zanaflex 4 MG] 4 mg PO TID 01/16/15 [History Confirmed 12/22/19] Levothyroxine Sodium 25 Mcg [Synthroid 25 Mcg] 25 mcg PO DAILY 10/17/15 [History Confirmed 12/22/19] Quetiapine Fumarate [Seroquel] 200 mg PO QAM 10/17/15 [History Confirmed 12/22/19] Vits W-Ca,Fe,FA(<1Mg) [] 1 each PO DAILY 10/18/15 [History Confirmed 12/22/19] Nitroglycerin 0.4 mg Tablet [Nitrostat 0.4 MG Tablet] 0.4 mg SL UD PRN 11/15/15 [History Confirmed 12/22/19] Albuterol Common Canister [Ventolin Common Canister] 2 puff IH Q4-6HPRN PRN 07/08/19 [History Confirmed 12/22/19] Quetiapine Fumarate 300 mg PO QHS 07/08/19 [History Confirmed 12/22/19] Nicotine 21 mg [Nicoderm CQ 21 MG] 21 mg TD DAILY #30 patch 07/09/19 [Rx Confirmed 12/22/19] Omeprazole 40 mg PO DAILY 12/07/19 [History Confirmed 12/22/19] Gabapentin 400 mg [Neurontin 400 MG] 800 mg PO TID #90 capsule 12/08/19 [Rx Confirmed 12/22/19] Allergies/Adverse Reactions: Allergies Allergy/AdvReac Type Severity Reaction Status Date / Time morphine Allergy Severe Fainting Verified 12/07/19 19:27 oxycodone Allergy Shortness Verified 12/07/19 19:28 of Breath Penicillins Allergy Verified 12/07/19 19:27 [place] AdvReac Intermediate Headache Verified 12/07/19 19:27 bupropion HCl AdvReac Mild Hives Verified 12/07/19 19:27 [From Wellbutrin] - Past Medical History Past Medical History: Yes Neurological History: Migraines ENT History: No Pertinent History Cardiac History: Congestive Heart Failure, Coronary Artery Disease, High Choles terol Respiratory History: Asthma, Bronchitis, COPD, Pneumonia Endocrine Medical History: Hypothyroidism Musculoskelatal History: Arthritis GI Medical History: GERD, Hernia, Polyps History: No Pertinent History Pyscho-Social History: Anxiety, Bipolar, Depression Reproductive Disorders: Fibroids Comment: 2 LEAKY VALVES. BORDERLINE PERSONALITY DISORDER, PTSD, manic depressive. bone deficiency - Female History Hx Last Menstrual Period: post - Past Surgical History Past Surgical History: Yes Neuro Surgical History: No Pertinent History Cardiac History: Cardiac Catheterization Respiratory Surgery: No Pertinent History GI Surgical History: Other Genitourinary Surgical Hx: No Pertinent History Musculskeletal Surgical Hx: Other Female Surgical History: Section Other Surgical History: ARM SURGERY, 2 c-sections, EGD with dilitation, Colonoscopy, heart cathx2 - Social History Smoking Status: Current every day smoker How long have you smoked: "40 years" Exposure to second hand smoke: Yes Alcohol: None Drug Use: marijuana Significant Family History: no pertinent family hx - Physical Exam Vital Signs: Vital Signs - 24 hr Temp Pulse Resp BP Pulse Ox 12/22/19 11:16 82 20 97 12/22/19 07:00 97.3 F 80 20 141/70 98 12/22/19 06:29 80 20 98 12/22/19 03:35 97.7 F 84 20 121/63 98 12/22/19 02:33 81 22 97 12/22/19 00:07 100 12/21/19 23:38 98.2 F 84 20 182/82 98 12/21/19 20:58 92 H 22 96 12/21/19 20:49 98.5 F 93 H 20 145/67 96 12/21/19 19:00 97 H 16 140/77 99 12/21/19 18:00 97 H 18 127/80 98 12/21/19 17:09 99 H 24 100 12/21/19 17:00 98.7 F 98 H 30 H 136/94 100 Oxygen-Last 24 hours Oxygen Flowrate (L/min)-RT 3 General Appearance: no apparent distress, alert Neurologic Exam: alert, oriented x 3, cooperative, normal mood/affect, nml cerebellar function, nml station & gait, sensation nml, No motor deficits Eye Exam: PERRL/EOMI, eyes nml inspection Ears, Nose, Throat Exam: normal ENT inspection, TMs normal, pharynx normal, moist mucous membranes Neck Exam: normal inspection, non-tender, supple, full range of motion Respiratory Exam: respiratory distress, diminished breath sounds, crackles/rales, rhonchi, wheezing Cardiovascular Exam: regular rate/rhythm, normal heart sounds, normal peripheral pulses Gastrointestinal/Abdomen Exam: soft, normal bowel sounds, No tenderness, No mass Back Exam: normal inspection, normal range of motion, No CVA tenderness, No vertebral tenderness Extremity Exam: normal inspection, normal range of motion, pelvis stable Skin Exam: normal color, warm, dry, No rash Lymphatic Exam: No adenopathy Results - Labs Lab/Micro Results: Lab Results-Last 24 Hours 12/21/19 12/21/19 12/21/19 Range/Units 17:12 17:20 17:20 WBC 9.9 (4.0-10.5) K/mm3 RBC 3.71 L (4.1-5.4) M/mm3 Hgb 8.7 L (12.0-16.0) gm/dl Hct 30.4 L (35-47) % MCV 81.9 (78-100) fl MCH 23.5 L (26-32) pg MCHC 28.6 L (32-36) g/dl RDW 19.4 H (11.5-14.0) % Plt Count 519 H (150-450) K/mm3 MPV 9.6 (7.5-11.0) fl Gran % 83.4 H (36.0-66.0) % Eos # (Auto) 0.08 (0-0.5) Absolute Lymphs (auto) 0.89 L (1.0-4.6) Absolute Monos (auto) 0.60 (0.0-1.3) Lymphocytes % 9.0 L (24.0-44.0) % Monocytes % 6.1 (0.0-12.0) % Eosinophils % 0.8 (0.00-5.0) % Basophils % 0.7 (0.0-0.4) % Absolute Granulocytes 8.27 H (1.4-6.9) Basophils # 0.07 (0-0.4) PT (9.95-12.35) SECONDS INR (0.8-3.0) APTT (25.3-37.0) SECONDS Sodium 137 (137-145) mmol/L Potassium 3.8 (3.5-5.1) mmol/L Chloride 104 (98-107) mmol/L Carbon Dioxide 30 (22-30) mmol/L Anion Gap 7.1 (5-15) MEQ/L BUN 8 (7-17) mg/dL Creatinine 0.68 (0.52-1.04) mg/dL Estimated GFR > 60.0 ML/MIN Glucose 119 H (74-106) mg/dL Lactic Acid 1.4 (0.4-2.0) Calcium 8.9 (8.4-10.2) mg/dL Total Bilirubin 0.20 (0.2-1.3) mg/dL AST 24 (14-36) U/L ALT 16 (0-35) U/L Alkaline Phosphatase 82 (38-126) U/L Troponin I (0.000-0.034) ng/mL NT-Pro-B Natriuret Pep 111 (0-900) pg/mL Serum Total Protein 7.4 (6.3-8.2) g/dL Albumin 4.2 (3.5-5.0) g/dL SARS-CoV-2 (PCR) (NEGATIVE) Slides for Path Review YES 12/21/19 12/21/19 12/21/19 Range/Units 17:20 17:20 18:19 WBC (4.0-10.5) K/mm3 RBC (4.1-5.4) M/mm3 Hgb (12.0-16.0) gm/dl Hct (35-47) % MCV (78-100) fl MCH (26-32) pg MCHC (32-36) g/dl RDW (11.5-14.0) % Plt Count (150-450) K/mm3 MPV (7.5-11.0) fl Gran % (36.0-66.0) % Eos # (Auto) (0-0.5) Absolute Lymphs (auto) (1.0-4.6) Absolute Monos (auto) (0.0-1.3) Lymphocytes % (24.0-44.0) % Monocytes % (0.0-12.0) % Eosinophils % (0.00-5.0) % Basophils % (0.0-0.4) % Absolute Granulocytes (1.4-6.9) Basophils # (0-0.4) PT 10.6 (9.95-12.35) SECONDS INR 0.94 (0.8-3.0) APTT 24.7 L (25.3-37.0) SECONDS Sodium (137-145) mmol/L Potassium (3.5-5.1) mmol/L Chloride (98-107) mmol/L Carbon Dioxide (22-30) mmol/L Anion Gap (5-15) MEQ/L BUN (7-17) mg/dL Creatinine (0.52-1.04) mg/dL Estimated GFR ML/MIN Glucose (74-106) mg/dL Lactic Acid (0.4-2.0) Calcium (8.4-10.2) mg/dL Total Bilirubin (0.2-1.3) mg/dL AST (14-36) U/L ALT (0-35) U/L Alkaline Phosphatase (38-126) U/L Troponin I < 0.012 (0.000-0.034) ng/mL NT-Pro-B Natriuret Pep (0-900) pg/mL Serum Total Protein (6.3-8.2) g/dL Albumin (3.5-5.0) g/dL SARS-CoV-2 (PCR) NEGATIVE (NEGATIVE) Slides for Path Review 12/21/19 12/22/19 12/22/19 Range/Units 19:35 05:06 05:06 WBC 5.2 (4.0-10.5) K/mm3 RBC 3.40 L (4.1-5.4) M/mm3 Hgb 7.8 L (12.0-16.0) gm/dl Hct 28.0 L (35-47) % MCV 82.4 (78-100) fl MCH 22.9 L (26-32) pg MCHC 27.9 L (32-36) g/dl RDW 19.2 H (11.5-14.0) % Plt Count 464 H (150-450) K/mm3 MPV 9.6 (7.5-11.0) fl Gran % 86.6 H (36.0-66.0) % Eos # (Auto) 0.01 (0-0.5) Absolute Lymphs (auto) 0.60 L (1.0-4.6) Absolute Monos (auto) 0.08 (0.0-1.3) Lymphocytes % 11.5 L (24.0-44.0) % Monocytes % 1.5 (0.0-12.0) % Eosinophils % 0.2 (0.00-5.0) % Basophils % 0.2 (0.0-0.4) % Absolute Granulocytes 4.51 (1.4-6.9) Basophils # 0.01 (0-0.4) PT (9.95-12.35) SECONDS INR (0.8-3.0) APTT (25.3-37.0) SECONDS Sodium 136 L (137-145) mmol/L Potassium 4.3 (3.5-5.1) mmol/L Chloride 104 (98-107) mmol/L Carbon Dioxide 30 (22-30) mmol/L Anion Gap 5.9 (5-15) MEQ/L BUN 9 (7-17) mg/dL Creatinine 0.60 (0.52-1.04) mg/dL Estimated GFR > 60.0 ML/MIN Glucose 137 H (74-106) mg/dL Lactic Acid (0.4-2.0) Calcium 8.7 (8.4-10.2) mg/dL Total Bilirubin 0.10 L (0.2-1.3) mg/dL AST 17 (14-36) U/L ALT 15 (0-35) U/L Alkaline Phosphatase 67 (38-126) U/L Troponin I < 0.012 (0.000-0.034) ng/mL NT-Pro-B Natriuret Pep (0-900) pg/mL Serum Total Protein 6.6 (6.3-8.2) g/dL Albumin 3.5 (3.5-5.0) g/dL SARS-CoV-2 (PCR) (NEGATIVE) Slides for Path Review YES - Radiology Impressions Radiology Exams & Impressions: Radiology Procedures Category Date Time Status CHEST 1 VIEW (PORTABLE) Stat Exams 12/21/19 17:09 Completed RAD/CHEST 1 VIEW (PORTABLE) Indication: Cough and short of breath. Suspect Covid 19. Comparison: December 07, 2019. Portable chest again demonstrates normal heart and lungs with incidental small hiatal hernia. No new/acute findings. - Other Procedures and Tests Respiratory Therapy 12/21/19 17:09 Respiratory Therapy Assessment DAILY 12/21/19 19:30 Oxygen Nasal Cannula 3 lpm 12/21/19 20:41 Respiratory MDI BID Assessment/Plan (1) COPD with acute exacerbation Current Visit: Yes Status: Acute Assessment & Plan: Chief Complaint Diagnosis COPD Exacerbation Allergies Allergy/AdvReac Type Severity Reaction Status Date / Time morphine Allergy Severe Fainting Verified 12/07/19 19:27 oxycodone Allergy Shortness Verified 12/07/19 19:28 of Breath Penicillins Allergy Verified 12/07/19 19:27 [place] AdvReac Intermediate Headache Verified 12/07/19 19:27 bupropion HCl AdvReac Mild Hives Verified 12/07/19 19:27 [From Wellbutrin] Vital Signs (Last 24 hours) Temp Pulse Resp BP Pulse Ox 12/22/19 11:16 82 20 97 12/22/19 07:00 97.3 F 80 20 141/70 98 12/22/19 06:29 80 20 98 12/22/19 03:35 97.7 F 84 20 121/63 98 12/22/19 02:33 81 22 97 12/22/19 00:07 100 12/21/19 23:38 98.2 F 84 20 182/82 98 12/21/19 20:58 92 H 22 96 12/21/19 20:49 98.5 F 93 H 20 145/67 96 12/21/19 19:00 97 H 16 140/77 99 12/21/19 18:00 97 H 18 127/80 98 12/21/19 17:09 99 H 24 100 12/21/19 17:00 98.7 F 98 H 30 H 136/94 100 Current Medications Generic Name Dose Route Start Last Admin Trade Name Freq PRN Reason Stop Dose Admin Acetaminophen 650 mg 12/21/19 19:30 Tylenol 325 Mg PO 01/20/20 19:29 Q4H PRN PRN PAIN AND/OR FEVER Albuterol Sulfate 2 puff 12/22/19 07:26 Ventolin Common Canister IH 01/21/20 07:25 Q4H PRN PRN SHORTNESS OF BREATH Albuterol/Ipratropium 3 ml 12/21/19 23:00 12/22/19 11:10 Duoneb 0.5-3 Mg/3 Ml Neb IH 01/20/20 22:59 3 ml Q4HRT VALERY Administration Clonazepam 2 mg 12/22/19 10:00 12/22/19 11:13 Klonopin PO 01/21/20 09:59 2 mg TID VALERY Administration Enoxaparin Sodium 40 mg 12/22/19 10:00 12/22/19 11:14 Enoxaparin Sodium SQ 01/21/20 09:59 40 mg DAILY VALERY Administration Famotidine 40 mg 12/22/19 10:00 12/22/19 11:11 Pepcid 20 Mg PO 01/21/20 09:59 40 mg BID VALERY Administration Gabapentin 800 mg 12/21/19 23:30 12/22/19 11:12 Neurontin 400 Mg PO 01/20/20 23:29 800 mg TID VALERY Administration Sodium Chloride 1,000 mls @ 80 mls/hr 12/21/19 19:30 12/22/19 11:33 Sodium Chloride 0.9% 1000 Ml IV 01/20/20 19:29 80 mls/hr .[id number] VALERY Administration Isosorbide Mononitrate 30 mg 12/22/19 10:00 12/22/19 11:13 Imdur 30 Mg PO 01/21/20 09:59 30 mg DAILY VALERY Administration Levothyroxine Sodium 25 mcg 12/22/19 10:00 12/22/19 11:14 Synthroid 25 Mcg PO 01/21/20 09:59 25 mcg DAILY VALERY Administration Methylprednisolone Sodium Succinate 80 mg 12/22/19 06:00 12/22/19 11:33 Solu-Medrol 125 Mg IV 01/20/20 19:29 80 mg Q6HT VALERY Administration Multivitamins Therapeutic 1 tab 12/22/19 10:00 12/22/19 11:11 Theragran Multivitamin PO 01/21/20 09:59 1 tab DAILY VALERY Administration Nicotine 21 mg 12/22/19 10:00 12/22/19 11:14 Nicoderm Cq 21 Mg TD 01/21/20 09:59 21 mg DAILY VALERY Administration Nitroglycerin 0.4 mg 12/21/19 23:12 Nitrostat 0.4 Mg Tablet SL 01/20/20 23:11 Q5MIN PRN MR X 3 PRN CHEST PAIN Ondansetron HCl 4 mg 12/21/19 19:30 Zofran 4 Mg/2 Ml Vial IV 01/20/20 19:29 Q6H PRN PRN NAUSEA/VOMITING Pantoprazole Sodium 40 mg 12/22/19 10:00 12/22/19 11:14 Protonix 40 Mg Iv IV 01/21/20 09:59 40 mg Q24H10 VALERY Administration Quetiapine Fumarate 300 mg 12/21/19 23:30 12/21/19 23:24 Seroquel 100 Mg PO 01/20/20 23:29 300 mg HS VALERY Administration Quetiapine Fumarate 200 mg 12/22/19 10:00 12/22/19 11:12 Seroquel 100 Mg PO 01/21/20 09:59 200 mg QAM VALERY Administration Fluticasone/Salmeterol 2 puff 12/22/19 08:00 12/22/19 11:11 Advair Hfa 115/21 Common Canister* IH 01/21/20 07:59 2 puff BIDRT VALERY Administration Sertraline HCl 100 mg 12/22/19 10:00 12/22/19 11:13 Zoloft 50 Mg Tablet PO 01/21/20 09:59 100 mg DAILY VALERY Administration Tizanidine HCl 4 mg 12/21/19 23:30 12/22/19 11:13 Zanaflex 4 Mg PO 01/20/20 23:29 4 mg TID VALERY Administration Discontinued Medications Generic Name Dose Route Start Last Admin Trade Name Freq PRN Reason Stop Dose Admin Albuterol Sulfate 4 puff 12/21/19 17:08 12/21/19 17:00 Ventolin Common Canister IH 12/21/19 17:09 4 puff STAT ONE Administration Clonazepam Confirm 12/21/19 23:00 Klonopin Administered 12/21/19 23:01 Dose 2 mg .ROUTE .STK-MED ONE Clonazepam 2 mg 12/21/19 23:30 Klonopin 0.5 Mg PO 01/20/20 23:29 TID VALERY Gabapentin Confirm 12/21/19 23:02 Neurontin 400 Mg Administered 12/21/19 23:03 Dose 800 mg .ROUTE .STK-MED ONE Methylprednisolone Sodium Succinate 125 mg 12/21/19 18:16 12/21/19 18:20 Solu-Medrol 125 Mg IV 12/21/19 18:17 125 mg STAT ONE Administration Methylprednisolone Sodium Succinate Confirm 12/21/19 18:16 Solu-Medrol 125 Mg Administered 12/21/19 18:17 Dose 125 mg .ROUTE .STK-MED ONE Methylprednisolone Sodium Succinate 80 mg 12/21/19 19:30 12/21/19 23:37 Solu-Medrol 125 Mg IV 01/20/20 19:29 80 mg Q6H VALERY Administration Quetiapine Fumarate Confirm 12/21/19 23:01 Seroquel 100 Mg Administered 12/21/19 23:02 Dose 300 mg .ROUTE .STK-MED ONE Tizanidine HCl Confirm 12/21/19 23:01 Zanaflex 4 Mg Administered 12/21/19 23:02 Dose 4 mg .ROUTE .STK-MED ONE Intake & Output (Last 24 hours) 12/19/19 12/20/19 12/21/19 12/22/19 11:59 11:59 11:59 11:59 Intake Total 480 Output Total 1400 Balance -920 Weight 74.4 kg Microbiology Results (Last 24 hours) 12/21/19 19:35 Blood Blood Culture Gram Stain - Pending 12/21/19 19:35 Blood Blood Culture - Pending 12/21/19 17:20 Blood Blood Culture Gram Stain - Pending 12/21/19 17:20 Blood Blood Culture - Pending Laboratory Results (Last 24 hours) 12/22/19 12/22/19 12/21/19 05:06 05:06 19:35 WBC 5.2 RBC 3.40 L Hgb 7.8 L Hct 28.0 L MCV 82.4 MCH 22.9 L MCHC 27.9 L RDW 19.2 H Plt Count 464 H MPV 9.6 Gran % 86.6 H Eos # (Auto) 0.01 Absolute Lymphs (auto) 0.60 L Absolute Monos (auto) 0.08 Lymphocytes % 11.5 L Monocytes % 1.5 Eosinophils % 0.2 Basophils % 0.2 Absolute Granulocytes 4.51 Basophils # 0.01 PT INR APTT Sodium 136 L Potassium 4.3 Chloride 104 Carbon Dioxide 30 Anion Gap 5.9 BUN 9 Creatinine 0.60 Estimated GFR > 60.0 Glucose 137 H Lactic Acid Calcium 8.7 Total Bilirubin 0.10 L AST 17 ALT 15 Alkaline Phosphatase 67 Troponin I < 0.012 NT-Pro-B Natriuret Pep Serum Total Protein 6.6 Albumin 3.5 SARS-CoV-2 (PCR) Slides for Path Review YES 12/21/19 12/21/19 12/21/19 18:19 17:20 17:20 WBC RBC Hgb Hct MCV MCH MCHC RDW Plt Count MPV Gran % Eos # (Auto) Absolute Lymphs (auto) Absolute Monos (auto) Lymphocytes % Monocytes % Eosinophils % Basophils % Absolute Granulocytes Basophils # PT 10.6 INR 0.94 APTT 24.7 L Sodium Potassium Chloride Carbon Dioxide Anion Gap BUN Creatinine Estimated GFR Glucose Lactic Acid Calcium Total Bilirubin AST ALT Alkaline Phosphatase Troponin I < 0.012 NT-Pro-B Natriuret Pep Serum Total Protein Albumin SARS-CoV-2 (PCR) NEGATIVE Slides for Path Review 12/21/19 12/21/19 12/21/19 17:20 17:20 17:12 WBC 9.9 RBC 3.71 L Hgb 8.7 L Hct 30.4 L MCV 81.9 MCH 23.5 L MCHC 28.6 L RDW 19.4 H Plt Count 519 H MPV 9.6 Gran % 83.4 H Eos # (Auto) 0.08 Absolute Lymphs (auto) 0.89 L Absolute Monos (auto) 0.60 Lymphocytes % 9.0 L Monocytes % 6.1 Eosinophils % 0.8 Basophils % 0.7 Absolute Granulocytes 8.27 H Basophils # 0.07 PT INR APTT Sodium 137 Potassium 3.8 Chloride 104 Carbon Dioxide 30 Anion Gap 7.1 BUN 8 Creatinine 0.68 Estimated GFR > 60.0 Glucose 119 H Lactic Acid 1.4 Calcium 8.9 Total Bilirubin 0.20 AST 24 ALT 16 Alkaline Phosphatase 82 Troponin I NT-Pro-B Natriuret Pep 111 Serum Total Protein 7.4 Albumin 4.2 SARS-CoV-2 (PCR) Slides for Path Review YES Orders (Last 24 hours) Category Date Time Status Bedrest ROUTINE Activity 12/21/19 19:31 Active Code Status Order ROUTINE Care 12/21/19 23:38 Active EKG-ER Only STAT Care 12/21/19 17:09 Completed IV Care Q6H Care 12/21/19 21:00 Active Observation [Place in Observation] ROUTINE Care 12/21/19 21:00 Active Vital Signs Q4H Care 12/21/19 23:38 Active CHEST 1 VIEW (PORTABLE) Stat Exams 12/21/19 17:09 Completed BLOOD CULTURE Stat Lab 12/21/19 19:35 Received CBC W DIFF AM.LAB Lab 12/22/19 05:06 Completed CBC W DIFF Stat Lab 12/21/19 17:20 Completed CMP AM.LAB Lab 12/22/19 05:06 Completed CMP Stat Lab 12/21/19 17:20 Completed Lactic Acid Stat Lab 12/21/19 17:12 Completed NT PRO BNP Stat Lab 12/21/19 17:20 Completed PROTIME WITH INR Stat Lab 12/21/19 17:20 Completed PTT Stat Lab 12/21/19 17:20 Completed TROPONIN Q3H Lab 12/21/19 17:20 Completed TROPONIN Q3H Lab 12/21/19 19:35 Completed Acetaminophen 325 mg [Tylenol 325 mg] Med 12/21/19 19:30 Active 650 mg PO Q4H PRN PRN Albuterol Common Canister [Ventolin Common Canister* Med 12/22/19 07:26 Active ] 2 puff IH Q4H PRN PRN Albuterol Common Canister [Ventolin Common Canister* Med 12/21/19 17:08 Discontinued ] 4 puff IH STAT ONE Albuterol/Ipratropium 3ml Neb* [DUONEB 0.5-3 MG/3 ml Med 12/21/19 23:00 Active Neb] 3 ml IH Q4HRT Clonazepam 0.5 mg [Klonopin 0.5 MG] Med 12/21/19 23:30 Discontinued 2 mg PO TID Clonazepam [Klonopin] Med 12/21/19 23:00 Discontinued 2 mg .ROUTE .STK-MED ONE Clonazepam [Klonopin] Med 12/22/19 10:00 Active 2 mg PO TID Enoxaparin Sodium [Enoxaparin Sodium] Med 12/22/19 10:00 Active 40 mg SQ DAILY Famotidine 20 mg [Pepcid 20 MG] Med 12/22/19 10:00 Active 40 mg PO BID Fluticasone/Salmeterol 115/21 [Advair Hfa 115/21 Common Med 12/22/19 08:00 Active canister*] 2 puff IH BIDRT Gabapentin 400 mg [Neurontin 400 MG] Med 12/21/19 23:02 Discontinued 800 mg .ROUTE .STK-MED ONE Gabapentin 400 mg [Neurontin 400 MG] Med 12/21/19 23:30 Active 800 mg PO TID Isosorbide Mononitrate 30 mg [Imdur 30 MG] Med 12/22/19 10:00 Active 30 mg PO DAILY Levothyroxine Sodium 25 Mcg [Synthroid 25 Mcg] Med 12/22/19 10:00 Active 25 mcg PO DAILY Methylprednis Sod Succ 125 mg* [solu-MEDROL 125 MG] Med 12/21/19 18:16 Discontinued 125 mg .ROUTE .STK-MED ONE Methylprednis Sod Succ 125 mg* [solu-MEDROL 125 MG] Med 12/21/19 18:16 Discontinued 125 mg IV STAT ONE Methylprednis Sod Succ 125 mg* [solu-MEDROL 125 MG] Med 12/21/19 19:30 Discontinued 80 mg IV Q6H Methylprednis Sod Succ 125 mg* [solu-MEDROL 125 MG] Med 12/22/19 06:00 Active 80 mg IV Q6HT Multivitamins,Therapeutic Tab* [Theragran Multivitamin* Med 12/22/19 10:00 Active ] 1 tab PO DAILY NaCl 0.9% 1000 ml [Sodium Chloride 0.9% 1000 ML] 1,000 Med 12/21/19 19:30 Active ml IV 80 mls/hr Nicotine 21 mg [Nicoderm CQ 21 MG] Med 12/22/19 10:00 Active 21 mg TD DAILY Nitroglycerin 0.4 mg Tablet [Nitrostat 0.4 MG Tablet Med 12/21/19 23:12 Active ] 0.4 mg SL Q5MIN PRN MR X 3 PRN Ondansetron HCl 4 mg/2 ml [Zofran 4 MG/2 ML VIAL] Med 12/21/19 19:30 Active 4 mg IV Q6H PRN PRN Pantoprazole 40 mg [Protonix 40 mg IV] Med 12/22/19 10:00 Active 40 mg IV Q24H10 Quetiapine Fumarate 100 mg [Seroquel 100 MG] Med 12/22/19 10:00 Active 200 mg PO QAM Quetiapine Fumarate 100 mg [Seroquel 100 MG] Med 12/21/19 23:01 Discontinued 300 mg .ROUTE .STK-MED ONE Quetiapine Fumarate 100 mg [Seroquel 100 MG] Med 12/21/19 23:30 Active 300 mg PO HS Sertraline HCl 50 mg [Zoloft 50 mg Tablet] Med 12/22/19 10:00 Active 100 mg PO DAILY Tizanidine HCl 4 mg [Zanaflex 4 MG] Med 12/21/19 23:01 Discontinued 4 mg .ROUTE .STK-MED ONE Tizanidine HCl 4 mg [Zanaflex 4 MG] Med 12/21/19 23:30 Active 4 mg PO TID Oxygen Nasal Cannula 3 lpm RT 12/21/19 19:30 Active Pulse Oximetry .spot check RT 12/21/19 20:41 Active Respiratory MDI BID RT 12/21/19 20:41 Active Respiratory Therapy Assessment DAILY RT 12/21/19 17:09 Active Code(s): J44.1 - CHRONIC OBSTRUCTIVE PULMONARY DISEASE W (ACUTE) EXACERBATION (2) COPD (chronic obstructive pulmonary disease) Current Visit: Yes Status: Chronic Qualifiers: COPD type: unspecified COPD Qualified Code(s): J44.9 - Chronic obstructive pulmonary disease, unspecified
[2019-12-22] MEDS ORDERED: ROCEPHIN 1 Gm-D5w 50 ml Bag** 1 G/50 ML IVPB IV SCH (22:00)
[2019-12-22] MEDS: TYLENOL 325 MG PO PRN (22:55)
[2019-12-23] MEDS: Sodium Chloride 0.9% 1000 ML 1,000 ML IV SCH (02:18)
[2019-12-23] MEDS: DUONEB 0.5-3 MG/3 ml Neb IH SCH ×6 (03:14→22:47)
[2019-12-23] MEDS: solu-MEDROL 125 MG IV SCH ×4 (06:06→23:05)
[2019-12-23] MEDS: Advair Hfa 115/21 Common canister IH SCH ×2 (06:58→18:55)
[2019-12-23] MEDS: ENOXAPARIN SODIUM SQ SCH (11:22)
[2019-12-23] MEDS: Neurontin 400 MG PO SCH ×3 (11:22→21:43)
[2019-12-23] MEDS: PROTONIX 40 MG IV IV SCH (11:22)
[2019-12-23] MEDS: Imdur 30 MG PO SCH (11:23)
[2019-12-23] MEDS: Zanaflex 4 MG PO SCH ×3 (11:23→21:44)
[2019-12-23] MEDS: Pepcid 20 MG PO SCH ×2 (11:23→21:43)
[2019-12-23] MEDS: SYNTHROID 25 MCG PO SCH (11:23)
[2019-12-23] MEDS: THERAGRAN MULTIVITAMIN PO SCH (11:23)
[2019-12-23] MEDS: KLONOPIN PO SCH ×3 (11:24→21:42)
[2019-12-23] MEDS: ZOLOFT 50 MG TABLET PO SCH (11:24)
[2019-12-23] MEDS: Nicoderm CQ 21 MG TD SCH (11:24)
[2019-12-23] MEDS: Seroquel 100 MG PO SCH ×2 (11:24→21:43)
--- NOTE | 2019-12-23 14:11 | PCM.NOTE ---
Date and Time: 12/23/19 0081 Subjective Assessment: Patient is asking to go home is anxious and a bit argumentive with boyfriend . This is her 3rd admission for COPD exacerbation this Fall. She is on continuous O2 at home and does home Neb treatments. She has a plan to stop smoking. Is allergic to Wellbutrin and Chantix made her angry. We discussed the need to stay until at baseline to prevent another admission. Chronic anxiety on Klonopin 2mg tid,Seroquel and gabapentin and Zanaflex. States she was taken off on Soma but it was the med that helped her to relax . Discussed adding Soma just for this hospital stay to help relax while on IV Solumedrol causing mind to race/anxiety. Objective Exam General Appearance: mild distress, anxiety Neurologic Exam: alert, oriented x 3, cooperative Skin Exam: warm, dry, pale Eye Exam: eyes nml inspection Ears, Nose, Throat Exam: moist mucous membranes Neck Exam: normal inspection Respiratory Exam: diminished breath sounds (decreased aeration bibasilar and mid left), wheezing (right base) Cardiovascular Exam: regular rate/rhythm Gastrointestinal/Abdomen Exam: soft (nontender) OBJECTIVE DATA Vital Signs: Vital Signs - 24 hr Temp Pulse Resp BP Pulse Ox 12/23/19 11:00 97.2 F 102 H 22 184/76 98 12/23/19 10:29 84 20 98 12/23/19 07:07 80 18 98 12/23/19 07:00 98.2 F 82 18 150/78 100 12/23/19 03:14 75 21 99 12/23/19 03:00 97.9 F 76 21 131/76 99 12/22/19 23:15 98.3 F 100 H 24 165/72 98 12/22/19 22:47 98 H 20 98 12/22/19 19:00 97 F 100 H 20 156/72 98 12/22/19 18:51 101 H 22 98 12/22/19 15:00 98.3 F 98 H 20 156/78 95 12/22/19 14:41 88 20 97 Pain Assessment - Last Documented Pain Intensity 0 Pain Scale Used FLACC Intake and Output: Intake & Output 12/21/19 12/22/19 12/23/19 12/24/19 11:59 11:59 11:59 11:59 Intake Total 480 4872 360 Output Total 1400 2500 1 Balance -920 2372 359 Weight 74.4 kg Radiology Exams: Radiology Procedures Category Date Time Status CHEST 1 VIEW (PORTABLE) Stat Exams 12/21/19 17:09 Completed Assessment/Plan (1) COPD with acute exacerbation Current Visit: Yes Status: Acute Assessment & Plan: improved but not at baseline poor aeration/tight left mid low lung field and right base Code(s): J44.1 - CHRONIC OBSTRUCTIVE PULMONARY DISEASE W (ACUTE) EXACERBATION (2) Hypoxia Current Visit: No Status: Chronic Assessment & Plan: oxygen dependent has at home was followeed by Dr Palencia but states cannot travel to [place]. Code(s): R09.02 - HYPOXEMIA (3) Anxiety Current Visit: Yes Status: Chronic Assessment & Plan: is on Klonopin 2mg tid,is anxious and agitated today , I believe from Solumedrol Code(s): F41.9 - ANXIETY DISORDER, UNSPECIFIED (4) Anemia Current Visit: No Status: Chronic Qualifiers: Anemia type: iron deficiency Iron deficiency anemia type: other iron deficiency Qualified Code(s): D50.8 - Other iron deficiency anemias Assessment & Plan: RECHECK PRIOR TO DISCHARGE. Code(s): D64.9 - ANEMIA, UNSPECIFIED
[2019-12-23] MEDS ORDERED: SOMA 350 MG PO PRN (17:11)
[2019-12-23] MEDS: TYLENOL 325 MG PO PRN (18:14)
[2019-12-23] MEDS ORDERED: ROCEPHIN 1 Gm-D5w 50 ml Bag** 1 G/50 ML IVPB IV SCH (22:00)
[2019-12-24] MEDS: DUONEB 0.5-3 MG/3 ml Neb IH SCH ×3 (03:07→11:08)
[2019-12-24] MEDS: solu-MEDROL 125 MG IV SCH ×2 (06:11→13:03)
[2019-12-24] MEDS: Advair Hfa 115/21 Common canister IH SCH (07:01)
[2019-12-24] MEDS: TYLENOL 325 MG PO PRN (07:56)
[2019-12-24 11:10] VITALS: PULSE 92; O2SAT 97
[2019-12-24] MEDS: Pepcid 20 MG PO SCH (11:23)
[2019-12-24] MEDS: Neurontin 400 MG PO SCH (11:24)
[2019-12-24] MEDS: THERAGRAN MULTIVITAMIN PO SCH (11:24)
[2019-12-24] MEDS: Imdur 30 MG PO SCH (11:24)
[2019-12-24] MEDS: ZOLOFT 50 MG TABLET PO SCH (11:24)
[2019-12-24] MEDS: KLONOPIN PO SCH (11:24)
[2019-12-24] MEDS: PROTONIX 40 MG IV IV SCH (11:24)
[2019-12-24] MEDS: Zanaflex 4 MG PO SCH (11:24)
[2019-12-24] MEDS: Seroquel 100 MG PO SCH (11:25)
[2019-12-24] MEDS: SYNTHROID 25 MCG PO SCH (11:25)
[2019-12-24] MEDS: Nicoderm CQ 21 MG TD SCH (11:25)
[2019-12-24] MEDS: ENOXAPARIN SODIUM SQ SCH (11:33)
--- NOTE | 2019-12-24 11:39 | PCM.DS ---
Discharge Summary Date of Admission: 12/22/19 11:40 Admitting Physician: WEN CAMERON Primary Care Provider: WEN CAMERON Allergies Allergies morphine Allergy (Severe, Verified 12/07/19 19:27) Fainting oxycodone Allergy (Verified 12/07/19 19:28) Shortness of Breath Penicillins Allergy (Verified 12/07/19 19:27) [place] Adverse Reaction (Intermediate, Verified 12/07/19 19:27) Headache bupropion HCl [From Wellbutrin] Adverse Reaction (Mild, Verified 12/07/19 19:27) [facility] Summary - Hospital Course Hospital Course: Patient was admitted through ER for COPD exacerbation,has had repeated admits for this. She is 3L O2 dependent at home and continues to smoke, does use nebulizer at home. She has alot of underlying anxiety but is motivated to quit smoking. States slept "better than ever last night" . Was given Soma. She also has chronic anemia followed by Dr Roa requiring iron infusions. - Vitals & Intake/Output Vital Signs: Vital Signs Temperature 98.4 F 12/24/19 07:00 Pulse Rate 92 H 12/24/19 11:08 Respiratory Rate 20 12/24/19 11:08 Blood Pressure 175/74 12/24/19 07:00 O2 Sat by Pulse Oximetry 97 12/24/19 11:08 Intake & Output: Intake & Output 12/21/19 12/22/19 12/23/19 12/24/19 11:59 11:59 11:59 11:59 Intake Total 480 4872 2120 Output Total 1400 2500 801 Balance -920 2372 1319 Weight 74.4 kg - Lab Result Diagrams: 12/22/19 05:06 12/22/19 05:06 Micro Results-Entire Visit: Microbiology 12/21/19 19:35 Blood Culture - Preliminary Blood NO GROWTH TO DATE 12/21/19 17:20 Blood Culture - Preliminary Blood NO GROWTH TO DATE - Procedures and Test Procedures and Tests throughout Hospitalization: Therapy Orders & Screens 12/21/19 17:09 Respiratory Therapy Assessment DAILY Comment: 12/21/19 19:30 Oxygen Nasal Cannula 3 lpm Comment: 12/21/19 20:41 Respiratory MDI BID Comment: Diagnosis: COPD Exacerbation 12/23/19 06:58 Peak Expiratory Flow Rate ONCE Comment: Reason For Exam: Diagnosis: shortness of breath for 3-4 days Discharge Exam Neurologic Exam: alert, oriented x 3, cooperative, other (much less anxious and appears rested today) Eye Exam: eyes nml inspection Ears, Nose, Throat Exam: normal ENT inspection Neck Exam: normal inspection Respiratory Exam: wheezing (eew bibasilar but improved aeration) Cardiovascular Exam: regular rate/rhythm Gastrointestinal/Abdomen Exam: soft (nontender) Extremity Exam: other (no edema) Final Diagnosis/Problem List - Final Discharge Diagnosis/Problem (1) COPD with acute exacerbation Current Visit: Yes Status: Acute Assessment & Plan: improved,follow up with PCP this week. Is on Rocephin but no fever since onset and WBC has not been elevated so no discharge antibiotic.. Will give Rx Prednisone. Code(s): J44.1 - CHRONIC OBSTRUCTIVE PULMONARY DISEASE W (ACUTE) EXACERBATION (2) Hypoxia Current Visit: No Status: Chronic Assessment & Plan: continue home O2 at 3L continuous Code(s): R09.02 - HYPOXEMIA (3) Anxiety Current Visit: Yes Status: Chronic Assessment & Plan: Rx for Soma to be taken at bed time # 7 tabs given, Dr Cameron agreed to adding this med. Code(s): F41.9 - ANXIETY DISORDER, UNSPECIFIED (4) Anemia Current Visit: No Status: Chronic Code(s): D64.9 - ANEMIA, UNSPECIFIED (5) Smoker Current Visit: Yes Status: Chronic Assessment & Plan: smoke cessation discussed. Code(s): F17.200 - NICOTINE DEPENDENCE, UNSPECIFIED, UNCOMPLICATED - Discharge Disposition: Home, Self-Care Condition: Stable Prescriptions: New Carisoprodol 350 mg [Soma 350 mg] 350 mg PO HS 7 Days #7 tablet Continue Clonazepam 0.5 mg [Klonopin 0.5 MG] 2 mg PO TID Fluticasone/Salmeterol Disc [Advair 250-50 Diskus 14 Dose] 1 puff IH BID Famotidine 20 mg [Pepcid 20 MG] 40 mg PO BID Albuterol/Ipratropium Mdi [Combivent Inhaler] 1 puff IH Q4HWA Sertraline HCl 100 mg [Zoloft 100 MG] 100 mg PO DAILY Isosorbide Mononitrate 30 mg [Imdur 30 MG] 30 mg PO DAILY Tizanidine HCl 4 mg [Zanaflex 4 MG] 4 mg PO TID Levothyroxine Sodium 25 Mcg [Synthroid 25 Mcg] 25 mcg PO DAILY Quetiapine Fumarate [Seroquel] 200 mg PO QAM Vits W-Ca,Fe,FA(<1Mg) [] 1 each PO DAILY Nitroglycerin 0.4 mg Tablet [Nitrostat 0.4 MG Tablet] 0.4 mg SL UD PRN PRN Reason: Chest Pain Albuterol Common Canister [Ventolin Common Canister] 2 puff IH Q4-6HPRN PRN PRN Reason: Shortness Of Breath Quetiapine Fumarate 300 mg PO QHS Nicotine 21 mg [Nicoderm CQ 21 MG] 21 mg TD DAILY #30 patch Omeprazole 40 mg PO DAILY Gabapentin 400 mg [Neurontin 400 MG] 800 mg PO TID #90 capsule Follow up with: WEN CAMERON MD [Primary Care Provider] - 12/29/19 2:30 pm (at [facility])
[2019-12-24 12:22] VITALS: BP 155/70
[2019-12-24 12:32] LABS: Absolute Neutrophil Ct (ANC) 10.54 (1.4-6.9); BASOPHIL % 0.1 % (0.0-0.4); Basophil (Absolute #) 0.01 (0-0.4); Eosinophil (Absolute #) 0 (0-0.5); Hematocrit 28.9 % (35-47); Hemoglobin 8.2 gm/dl (12.0-16.0); Lymphocyte (Absolute #) 0.86 (1.0-4.6); Mean Cell Volume 80.7 fl (78-100); Mean Corpuscular Hemoglobin 22.9 pg (26-32); Mean Corpuscular Hgb Concent. 28.4 g/dl (32-36); Mean Platelet Volume 9.4 fl (7.5-11.0); Monocyte (Absolute #) 0.86 (0.0-1.3); Neutrophil % 85.9 % (36.0-66.0); Platelet Count 482 K/mm3 (150-450); Red Blood Count 3.58 M/mm3 (4.1-5.4); White Blood Count 12.3 K/mm3 (4.0-10.5)
[2019-12-24 12:40] LABS: ANION GAP 7.1 MEQ/L (5-15); BLOOD UREA NITROGEN 17 mg/dL (7-17); CHLORIDE 102 mmol/L (98-107); Calcium 9.5 mg/dL (8.4-10.2); Carbon Dioxide 32 mmol/L (22-30); Creatinine 1 0.76 mg/dL (0.52-1.04); EST GLOMERULAR FILTRATION RATE > 60.0 ML/MIN; Glucose 85 mg/dL (74-106); Potassium 4.3 mmol/L (3.5-5.1); SODIUM 137 mmol/L (137-145)
--- NOTE | 2019-12-24 12:58 | PCM.DCORD ---
- Discharge Disposition: Home, Self-Care Condition: Stable Prescriptions: New Carisoprodol 350 mg [Soma 350 mg] 350 mg PO HS 7 Days #7 tablet Prednisone 20 mg [Deltasone 20 mg] 20 mg PO DAILY #30 tablet Continue Clonazepam 0.5 mg [Klonopin 0.5 MG] 2 mg PO TID Fluticasone/Salmeterol Disc [Advair 250-50 Diskus 14 Dose] 1 puff IH BID Famotidine 20 mg [Pepcid 20 MG] 40 mg PO BID Albuterol/Ipratropium Mdi [Combivent Inhaler] 1 puff IH Q4HWA Sertraline HCl 100 mg [Zoloft 100 MG] 100 mg PO DAILY Isosorbide Mononitrate 30 mg [Imdur 30 MG] 30 mg PO DAILY Tizanidine HCl 4 mg [Zanaflex 4 MG] 4 mg PO TID Levothyroxine Sodium 25 Mcg [Synthroid 25 Mcg] 25 mcg PO DAILY Quetiapine Fumarate [Seroquel] 200 mg PO QAM Vits W-Ca,Fe,FA(<1Mg) [] 1 each PO DAILY Nitroglycerin 0.4 mg Tablet [Nitrostat 0.4 MG Tablet] 0.4 mg SL UD PRN PRN Reason: Chest Pain Albuterol Common Canister [Ventolin Common Canister] 2 puff IH Q4-6HPRN PRN PRN Reason: Shortness Of Breath Quetiapine Fumarate 300 mg PO QHS Nicotine 21 mg [Nicoderm CQ 21 MG] 21 mg TD DAILY #30 patch Omeprazole 40 mg PO DAILY Gabapentin 400 mg [Neurontin 400 MG] 800 mg PO TID #90 capsule Follow up with: WEN CAMERON MD [Primary Care Provider] - 12/29/19 2:30 pm (at [facility])
[2019-12-24 14:21] LABS: Folate (Folic Acid) 14.7 ng/mL (2.76 - >20)
== END 2019-12-24 13:23 | disposition home or self-care (01) | DRG 192 ==
LOC: ED 16:41 → MED SURG 19:36 → OBSVTOIN 12-22 11:40
PROVIDERS: ADMIT General Practice; ATTEND General Practice
DX: J44.1 Chronic obstructive pulmonary disease with (acute) exacerbation (principal); R09.02 Hypoxemia; F41.9 Anxiety disorder, unspecified; D64.9 Anemia, unspecified; F17.200 Nicotine dependence, unspecified, uncomplicated; Z79.899 Other long term (current) drug therapy; E78.00 Pure hypercholesterolemia, unspecified; I25.10 Atherosclerotic heart disease of native coronary artery without angina pectoris; E03.9 Hypothyroidism, unspecified
CPT/HCPCS: 36415; 71045; 80048; 80053; 82607; 82746; 83605; 83880; 84484; 85025; 85610; 85730; 87040; 93005; 94150; 94640; 94760; 96374; 99285; G0378; U0003; J0696; J1650; J2930; A9270-GY

== ENCOUNTER 2020-01-18 08:18 | Inpatient (IN) | payer MEDICARE ==
[2020-01-18] MEDS ORDERED: Sodium Chloride 0.9% 1000 ML 1,000 ML IV STA (08:26)
[2020-01-18] MEDS ORDERED: DUONEB 0.5-3 MG/3 ml Neb IH ONE (08:28)
--- NOTE | 2020-01-18 08:33 | ERPHSYRPT ---
- History of Present Illness Time Seen by Provider: 01/18/20 08:20 Source: patient Exam Limitations: no limitations Physician History: Patient comes in with increasing shortness of breath, cough and wheezing. Patient is not been evaluated treated over the past 3 days. Patient was admitted in the hospital 1 month ago Timing/Duration: day(s) (3), gradual onset Activities at Onset: rest Severity of Dyspnea-Max: severe Severity of Dyspnea-Current: severe Possible Cause: frequent episodes (patient was a smoker, but states she has not smoked since being discharged from the hospital in late November) Modifying Factors: Improves With: albuterol nebulizer, oxygen. Worsens With: activity, deep breath Associated Symptoms: intermittent, anxiety, cough, wheezing, tightness, No chest pain/discomfort, No edema, No fever, No loss of appetite, No hemoptysis, No calf pain, No dizziness, No heart racing, No lightheadedness, No muscle spasms hands, No painful breathing Allergies/Adverse Reactions: morphine Allergy (Severe, Verified 01/18/20 08:34) Fainting oxycodone Allergy (Verified 01/18/20 08:34) Shortness of Breath Penicillins Allergy (Verified 01/18/20 08:34) C[place]ut Adverse Reaction (Intermediate, Verified 01/18/20 08:34) Headache bupropion HCl [From Wellbutrin] Adverse Reaction (Mild, Verified 01/18/20 08:34) Hives Home Medications: Albuterol/Ipratropium Mdi [Combivent Inhaler] 1 puff IH Q4HWA 12/29/12 [His tory] Clonazepam 0.5 mg [Klonopin 0.5 MG] 2 mg PO TID 12/29/12 [History] Famotidine 20 mg [Pepcid 20 MG] 40 mg PO BID 12/29/12 [History] Fluticasone/Salmeterol Disc [Advair 250-50 Diskus 14 Dose] 1 puff IH BID 12/29/12 [History] Sertraline HCl 100 mg [Zoloft 100 MG] 100 mg PO DAILY 12/17/13 [History] Isosorbide Mononitrate 30 mg [Imdur 30 MG] 30 mg PO DAILY 11/05/14 [History ] Tizanidine HCl 4 mg [Zanaflex 4 MG] 4 mg PO TID 01/16/15 [History] Levothyroxine Sodium 25 Mcg [Synthroid 25 Mcg] 25 mcg PO DAILY 10/17/15 [History] Quetiapine Fumarate [Seroquel] 200 mg PO QAM 10/17/15 [History] Vits W-Ca,Fe,FA(<1Mg) [] 1 each PO DAILY 10/18/15 [History] Nitroglycerin 0.4 mg Tablet [Nitrostat 0.4 MG Tablet] 0.4 mg SL UD PRN 11/15/15 [History] Albuterol Common Canister [Ventolin Common Canister] 2 puff IH Q4-6HPRN PRN 07/08/19 [History] Quetiapine Fumarate 300 mg PO QHS 07/08/19 [History] Omeprazole 40 mg PO DAILY 12/07/19 [History] Hx Tetanus, Diphtheria Vaccination/Date Given: Yes (unknown) Hx Influenza Vaccination/Date Given: Yes Hx Pneumococcal Vaccination/Date Given: No Travel Risk - International Travel Have you traveled outside of the country in past 3 weeks: No - Coronavirus Screening Are you exhibiting any of the following symptoms?: Yes Symptoms: Shortness of Breath Close contact with a COVID-19 positive Pt in past 14-21 Days: No - Review of Systems Constitutional: No Fever, No Chills Eyes: No Discharge, No Eye Redness Ears, Nose, & Throat: No Ear Pain, No Nose Congestion, No Sinus Drainage, No Throat Pain Respiratory: Dyspnea, Wheezing, No Cough Cardiac: No Chest Pain, No Edema, No Syncope Abdominal/Gastrointestinal: No Abdominal Pain, No Nausea, No Vomiting, No Diarrhea, No Hematochezia Genitourinary Symptoms: No Dysuria, No Hematuria, No Flank Pain Musculoskeletal: No Back Pain, No Neck Pain Skin: No Rash Neurological: No Dizziness, No Focal Weakness, No Sensory Changes Psychological: Anxiety, No Emotional Lability Endocrine: No Polyuria Hematologic/Lymphatic: No Easy Bleeding, No Easy Bruising All Other Systems: Reviewed and Negative - Past Medical History Pertinent Past Medical History: Yes Neurological History: Migraines ENT History: No Pertinent History Cardiac History: Congestive Heart Failure, Coronary Artery Disease, High Cholesterol Respiratory History: Asthma, Bronchitis, COPD, Pneumonia Endocrine Medical History: Hypothyroidism Musculoskeletal History: Arthritis GI Medical History: GERD, Hernia, Polyps History: No Pertinent History Psycho-Social History: Anxiety, Bipolar, Depression Female Reproductive Disorders: Fibroids Other Medical History: 2 LEAKY VALVES. BORDERLINE PERSONALITY DISORDER, PTSD, manic depressive. bone deficiency - Past Surgical History Past Surgical History: Yes Neuro Surgical History: No Pertinent History Cardiac: Cardiac Catheterization Respiratory: No Pertinent History Gastrointestinal: Other Genitourinary: No Pertinent History Musculoskeletal: Other Female Surgical History: Section Other Surgical History: ARM SURGERY, 2 c-sections, EGD with dilitation, Colonoscopy, heart cathx2 - Social History Smoking Status: Current every day smoker How long have you smoked: "40 years" Exposure to second hand smoke: Yes Alcohol Use: Socially Drug Use: marijuana Patient Lives Alone: No Significant Family History: no pertinent family hx - Nursing Vital Signs Nursing Vital Signs: Initial Vital Signs Temperature 97.6 F 01/18/20 08:24 Pulse Rate 125 H 01/18/20 08:24 Respiratory Rate 32 H 01/18/20 08:24 Blood Pressure 99/55 01/18/20 08:24 O2 Sat by Pulse Oximetry 90 L 01/18/20 08:24 Pain Scale Pain Intensity 2 - Physical Exam General Appearance: mild distress, alert Eye Exam: PERRL/EOMI, eyes nml inspection, No scleral icterus Ears, Nose, Throat Exam: normal ENT inspection, normal pharynx, No sinus pain/drainage, No nasal congestion Neck Exam: normal inspection, supple, No Brudzinski, No JVD, No lymphadenopathy (R), No lymphadenopathy (L), No tenderness lateral, No tenderness midline Respiratory Exam: airway intact, crackles/rales (RUL), wheezing, No accessory muscle use, No prolonged expirations, No stridor, No pleural rub Cardiovascular/Chest Exam: normal heart sounds, regular rate/rhythm, normal peripheral pulses, tachycardia Abdominal/Gastrointestinal Exam: soft, normal bowel sounds, No tenderness, No distention, No mass Extremity Exam: non-tender, normal range of motion, normal inspection, no calf tenderness, no pedal edema Neurologic Exam: alert, oriented x 3, cooperative, 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, sensation nml, No motor deficits Skin Exam: normal color, warm, No dry, No rash, No petechiae, No jaundice, No cyanosis SpO2 Interpretation: borderline oxygenation SpO2: 90 O2 Delivery: Nasal Cannula - Course Nursing assessment & vital signs reviewed: Yes EKG Interpreted by Me: RATE (123), Sinus Tach, NORMAL AXIS, prolonged QT interval, NORMAL QRS, NORMAL ST-T, Other (Sinus tachycardia 123 with prolonged QTc interval, no significant change in comparison to EKG from 12/22/2019 except for the prolonged QTC) - Radiology Exams Chest X-ray Interpretation: Interpreted by me, Reviewed by me, Other (Right upper lobe consolidation confirmed by radiologist with a large hiatal hernia, otherwise no acute cardiopulmonary process) Ordered Tests: Active Orders 24 hr Category Date Time Status Up Ad Daisy ROUTINE Activity 01/18/20 10:10 Ordered Catheter-[place] Michele ROUTINE Care 01/18/20 10:10 Ordered Code Status Order ROUTINE Care 01/18/20 10:09 Ordered EKG-ER Only STAT Care 01/18/20 08:26 Active Michele [Catheter-[place] Michele] STAT Care 01/18/20 08:59 Active IV Care Q6H Care 01/18/20 10:09 Ordered IV Insertion STAT Care 01/18/20 08:26 Active Telemetry q6h Care 01/18/20 10:09 Ordered Weight,Daily 0600 Care 01/18/20 10:09 Ordered House Regular Diet Diet 01/18/20 Lunch Ordered CHEST 1 VIEW (PORTABLE) Stat Exams 01/18/20 08:27 Completed AMYLASE Stat Lab 01/18/20 08:30 Completed BLOOD CULTURE Stat Lab 01/18/20 09:00 Received BNP [NT PRO BNP] Stat Lab 01/18/20 09:00 Received CBC W DIFF AM.LAB Lab 01/19/20 04:00 Ordered CBC W DIFF Stat Lab 01/18/20 08:30 Completed CMP AM.LAB Lab 01/19/20 04:00 Ordered CMP Stat Lab 01/18/20 08:30 Completed INFLUENZA A+B NIMO Stat Lab 01/18/20 09:00 Completed LIPASE Stat Lab 01/18/20 08:30 Completed Lactic Acid Stat Lab 01/18/20 08:43 Completed MAGNESIUM Stat Lab 01/18/20 09:00 Received Manual Differential NC Stat Lab 01/18/20 08:30 Completed PROTIME WITH INR Stat Lab 01/18/20 08:30 Completed TROPONIN Q3H Lab 01/18/20 09:00 Completed TROPONIN Q3H Lab 01/18/20 11:30 Ordered TROPONIN Q3H Lab 01/18/20 14:30 Ordered TROPONIN Q3H Lab 01/18/20 17:30 Ordered TROPONIN Q3H Lab 01/18/20 20:30 Ordered UA W/RFX UR CULTURE Stat Lab 01/18/20 09:26 Ordered VENOUS BLOOD GAS AM.LAB Lab 01/19/20 04:00 Ordered VENOUS BLOOD GAS Stat Lab 01/18/20 08:43 Completed Oxygen Nasal Cannula 3 lpm RT 01/18/20 10:09 Ordered Medication Summary Generic Name Dose Route Start Last Admin Trade Name Freq PRN Reason Stop Dose Admin Acetaminophen 650 mg 01/18/20 10:09 Tylenol 325 Mg PO 02/17/20 10:08 Q4H PRN PRN PAIN AND/OR FEVER Albuterol/Ipratropium 3 ml 01/18/20 10:09 Duoneb 0.5-3 Mg/3 Ml Neb IH 02/17/20 10:08 Q4HPRN PRN SHORTNESS OF BREATH/WHEEZING Enoxaparin Sodium 40 mg 01/19/20 10:00 Enoxaparin Sodium SQ 02/18/20 09:59 DAILY VALERY Famotidine 20 mg 01/18/20 22:00 Pepcid 20 Mg Vial IV 02/17/20 21:59 Q12HT VALERY Vancomycin HCl 1 gm in 200 mls @ 125 mls/hr 01/18/20 09:00 01/18/20 09:49 Vancomycin 1 Gram/200 Ml Bag IV 02/17/20 08:59 125 mls/hr Q24H VALERY 125 mls/hr Administration Sodium Chloride 1,000 mls @ 100 mls/hr 01/18/20 10:15 Sodium Chloride 0.9% 1000 Ml IV 02/17/20 10:14 .Q10H VALERY Cefepime HCl 2 g/ Dextrose 100 mls @ 200 mls/hr 01/18/20 22:00 IV 02/17/20 21:59 Q12HT VALERY Discontinued Medications Generic Name Dose Route Start Last Admin Trade Name Freq PRN Reason Stop Dose Admin Acetaminophen 1,000 mg 01/18/20 09:44 01/18/20 09:47 Tylenol Extra Strength 500 Mg PO 01/18/20 09:45 1,000 mg STAT STA Administration Acetaminophen Confirm 01/18/20 09:46 Tylenol Extra Strength 500 Mg Administered 01/18/20 09:47 Dose 1,000 mg .ROUTE .STK-MED ONE Albuterol/Ipratropium 3 ml 01/18/20 08:28 01/18/20 08:40 Duoneb 0.5-3 Mg/3 Ml Neb IH 01/18/20 08:29 Not Given STAT ONE Cefepime HCl Confirm 01/18/20 09:27 Maxipime 2 Gm Administered 01/18/20 09:28 Dose 2 g .ROUTE .STK-MED ONE Sodium Chloride 1,000 mls @ 999 mls/hr 01/18/20 08:26 01/18/20 08:40 Sodium Chloride 0.9% 1000 Ml IV 01/18/20 09:26 999 mls/hr .Q1H1M STA Administration Sodium Chloride Confirm 01/18/20 08:39 Sodium Chloride 0.9% 1000 Ml Administered 01/18/20 08:40 Dose 1,000 mls @ ud .ROUTE .STK-MED ONE Cefepime HCl 2 g/ Sodium 100 mls @ 200 mls/hr 01/18/20 08:58 01/18/20 09:38 Chloride IV 01/18/20 09:27 200 mls/hr STAT STA Administration Sodium Chloride Confirm 01/18/20 09:28 Sodium Chloride 0.9% 100 Ml Ivpb Administered 01/18/20 09:29 Dose 100 mls @ ud IV .STK-MED ONE Lab/Rad Data: Laboratory Result Diagrams 01/18/20 08:30 01/18/20 08:30 Laboratory Results 01/18/20 01/18/20 01/18/20 Range/Units 09:00 09:00 08:43 WBC (4.0-10.5) K/mm3 RBC (4.1-5.4) M/mm3 Hgb (12.0-16.0) gm/dl Hct (35-47) % MCV (78-100) fl MCH (26-32) pg MCHC (32-36) g/dl RDW (11.5-14.0) % Plt Count (150-450) K/mm3 MPV (7.5-11.0) fl Absolute Granulocytes (1.4-6.9) Segmented Neutrophils (36.0-66.0) % Band Neutrophils (0.0-2.0) % Lymphocytes (Manual) (24-44) % Monocytes (Manual) (0.0-12.0) % Nucleated RBCs % Hypochromia Platelet Estimate (NORMAL) RBC Morphology Polychromasia Poikilocytosis Anisocytosis PT (9.95-12.35) SECONDS INR (0.8-3.0) pO2/FiO2 Ratio 32.0 % VBG pH 7.40 (7.32-7.42) VBG pCO2 at Pat Temp 39 L (42-55) mm/Hg VBG pO2 at Pat Temp 28 (25-40) mm/Hg VBG HCO3 24.2 (22-28) meq/L VBG O2 Sat (Paulo) 49.1 L (95-100) VBG Base Excess -0.5 (-2.0-2.0) VBG Hemoglobin 6.9 L* VBG Carboxyhemoglobin 3.7 (0.0-6.9) % T HGB POC Potassium 3.8 (3.5-5.1) Sodium (137-145) mmol/L Potassium (3.5-5.1) mmol/L Chloride (98-107) mmol/L Carbon Dioxide (22-30) mmol/L Anion Gap (5-15) MEQ/L BUN (7-17) mg/dL Creatinine (0.52-1.04) mg/dL Estimated GFR ML/MIN Glucose (74-106) mg/dL Lactic Acid (0.4-2.0) Calcium (8.4-10.2) mg/dL Total Bilirubin (0.2-1.3) mg/dL AST (14-36) U/L ALT (0-35) U/L Alkaline Phosphatase (38-126) U/L Troponin I < 0.012 (0.000-0.034) ng/mL Serum Total Protein (6.3-8.2) g/dL Albumin (3.5-5.0) g/dL Amylase (30-110) U/L Lipase (23-300) U/L Influenza Type A Ag NEGATIVE (NEGATIVE) Influenza Type B Ag NEGATIVE (NEGATIVE) 01/18/20 01/18/20 01/18/20 Range/Units 08:43 08:30 08:30 WBC (4.0-10.5) K/mm3 RBC (4.1-5.4) M/mm3 Hgb (12.0-16.0) gm/dl Hct (35-47) % MCV (78-100) fl MCH (26-32) pg MCHC (32-36) g/dl RDW (11.5-14.0) % Plt Count (150-450) K/mm3 MPV (7.5-11.0) fl Absolute Granulocytes (1.4-6.9) Segmented Neutrophils (36.0-66.0) % Band Neutrophils (0.0-2.0) % Lymphocytes (Manual) (24-44) % Monocytes (Manual) (0.0-12.0) % Nucleated RBCs % Hypochromia Platelet Estimate (NORMAL) RBC Morphology Polychromasia Poikilocytosis Anisocytosis PT 16.6 H (9.95-12.35) SECONDS INR 1.46 (0.8-3.0) pO2/FiO2 Ratio % VBG pH (7.32-7.42) VBG pCO2 at Pat Temp (42-55) mm/Hg VBG pO2 at Pat Temp (25-40) mm/Hg VBG HCO3 (22-28) meq/L VBG O2 Sat (Paulo) (95-100) VBG Base Excess (-2.0-2.0) VBG Hemoglobin VBG Carboxyhemoglobin (0.0-6.9) % T HGB POC Potassium (3.5-5.1) Sodium 129 L (137-145) mmol/L Potassium 3.8 (3.5-5.1) mmol/L Chloride 96 L (98-107) mmol/L Carbon Dioxide 25 (22-30) mmol/L Anion Gap 12.2 (5-15) MEQ/L BUN 17 (7-17) mg/dL Creatinine 1.08 H (0.52-1.04) mg/dL Estimated GFR 54.6 ML/MIN Glucose 105 (74-106) mg/dL Lactic Acid 2.7 H (0.4-2.0) Calcium 8.8 (8.4-10.2) mg/dL Total Bilirubin 0.50 (0.2-1.3) mg/dL AST 30 (14-36) U/L ALT 33 (0-35) U/L Alkaline Phosphatase 100 (38-126) U/L Troponin I (0.000-0.034) ng/mL Serum Total Protein 7.4 (6.3-8.2) g/dL Albumin 3.7 (3.5-5.0) g/dL Amylase < 30 L (30-110) U/L Lipase 18 L (23-300) U/L Influenza Type A Ag (NEGATIVE) Influenza Type B Ag (NEGATIVE) 01/18/20 Range/Units 08:30 WBC 35.9 H* (4.0-10.5) K/mm3 RBC 3.07 L (4.1-5.4) M/mm3 Hgb 6.6 L* (12.0-16.0) gm/dl Hct 23.2 L (35-47) % MCV 75.6 L (78-100) fl MCH 21.5 L (26-32) pg MCHC 28.4 L (32-36) g/dl RDW 19.4 H (11.5-14.0) % Plt Count 639 H (150-450) K/mm3 MPV 10.1 (7.5-11.0) fl Absolute Granulocytes 32.63 H (1.4-6.9) Segmented Neutrophils 66 (36.0-66.0) % Band Neutrophils 25 H (0.0-2.0) % Lymphocytes (Manual) 3 L (24-44) % Monocytes (Manual) 6 (0.0-12.0) % Nucleated RBCs 1 % Hypochromia 2+ Platelet Estimate INCREASED (NORMAL) RBC Morphology ABNORMAL Polychromasia 1+ Poikilocytosis 1+ Anisocytosis 2+ PT (9.95-12.35) SECONDS INR (0.8-3.0) pO2/FiO2 Ratio % VBG pH (7.32-7.42) VBG pCO2 at Pat Temp (42-55) mm/Hg VBG pO2 at Pat Temp (25-40) mm/Hg VBG HCO3 (22-28) meq/L VBG O2 Sat (Paulo) (95-100) VBG Base Excess (-2.0-2.0) VBG Hemoglobin VBG Carboxyhemoglobin (0.0-6.9) % T HGB POC Potassium (3.5-5.1) Sodium (137-145) mmol/L Potassium (3.5-5.1) mmol/L Chloride (98-107) mmol/L Carbon Dioxide (22-30) mmol/L Anion Gap (5-15) MEQ/L BUN (7-17) mg/dL Creatinine (0.52-1.04) mg/dL Estimated GFR ML/MIN Glucose (74-106) mg/dL Lactic Acid (0.4-2.0) Calcium (8.4-10.2) mg/dL Total Bilirubin (0.2-1.3) mg/dL AST (14-36) U/L ALT (0-35) U/L Alkaline Phosphatase (38-126) U/L Troponin I (0.000-0.034) ng/mL Serum Total Protein (6.3-8.2) g/dL Albumin (3.5-5.0) g/dL Amylase (30-110) U/L Lipase (23-300) U/L Influenza Type A Ag (NEGATIVE) Influenza Type B Ag (NEGATIVE) - Progress Progress: unchanged (Patient has not required any other extra oxygen support and her tachypnea has resolved and her tachycardia has improved significantly) Air Movement: fair Progress Note: 01/18/20 10:15 Patient is a COPD patient former smoker who recently quit who was admitted less than 1 month ago for COPD exacerbation had IV Rocephin at that time and negative SARS-CoV-2 testing who comes back in with increasing shortness of breath. Although she was tachypneic when she came in and tachycardic, her pulse oximetry improved under percent on 5 L and she was able to go down to her baseline of 3 L. Her chest x-ray showed a significant right upper lobe consolidation and with her risk factors, she was at high risk for hospital-acquired pneumonia so she was started on cefepime 2 g and vancomycin 1 g here in the emergency room as well as have blood cultures performed and IV fluids given. IV fluids helped improve her tachycardia significantly and she did not require any other oxygen support from her baseline of 3 L of oxygen as she had a normal venous blood gas. Patient was discussed with her primary care provider, Dr. Jain, who accept the patient for admission as patient also had signs of sepsis with an elevated white blood count and lactic acid as well as a low hemoglobin from her baseline that need to continue to be evaluated as well. Blood Culture(s) Obtained: Yes Antibiotics given: Yes Discussed with : Bandar (The patient with Dr. Jain at 10:05; Dr. Jain accepted the patient for admission) - Departure Departure Disposition: In-patient Admission ([facility]) Clinical Impression: HAP (hospital-acquired pneumonia), Sepsis due to pneumonia, Acute anemia, Elevated blood-pressure reading without diagnosis of hypertension COPD (chronic obstructive pulmonary disease) Qualifiers: COPD type: COPD with acute lower respiratory infection Qualified Code(s): J44.0 - Chronic obstructive pulmonary disease with (acute) lower respiratory infection Condition: Fair Critical Care Time: Yes Critical Care Time(excluding separately billable procedures): Critical 30-74 mins Referrals: WEN CAMERON MD [Primary Care Provider] - Instructions: Chronic Obstructive Pulmonary Disease
[2020-01-18] MEDS ORDERED: Sodium Chloride 0.9% 1000 ML 1,000 ML ONE (08:39)
[2020-01-18 08:48] LABS: VBG BASE EXCESS -0.5 (-2.0-2.0); VBG CARBOXYHEMOGLOBIN 3.7 % T HGB (0.0-6.9); VBG HCO3- 24.2 meq/L (22-28); VBG O2 SATURATION 49.1 (95-100); VBG POTASSIUM 3.8 (3.5-5.1); VBG pH 7.4 (7.32-7.42)
[2020-01-18 08:49] LABS: VBG HEMOGLOBIN 6.9
--- NOTE | 2020-01-18 08:56 | XRAY ---
Indication: Dyspnea. Covid 19 exposure. Comparison: December 21, 2019. Portable chest demonstrates new right upper lobe consolidating airspace disease. Remaining heart and lungs unremarkable with stable large hiatal hernia. Bony thorax intact.
[2020-01-18] MEDS ORDERED: Maxipime 2 GM** 2 G in Sodium Chloride 0.9% 100 ML IVPB 100 ML IV STA (08:58)
[2020-01-18 09:25] LABS: Hematocrit 23.2 % (35-47); Mean Cell Volume 75.6 fl (78-100); Mean Corpuscular Hemoglobin 21.5 pg (26-32); Mean Corpuscular Hgb Concent. 28.4 g/dl (32-36); Mean Platelet Volume 10.1 fl (7.5-11.0); Platelet Count 639 K/mm3 (150-450); Red Blood Count 3.07 M/mm3 (4.1-5.4); Red Cell Distribution Width 19.4 % (11.5-14.0)
[2020-01-18] MEDS ORDERED: Maxipime 2 GM ONE (09:27)
[2020-01-18] MEDS ORDERED: Sodium Chloride 0.9% 100 ML IVPB 100 ML IV ONE (09:28)
[2020-01-18 09:35] LABS: White Blood Count 35.9 K/mm3 (4.0-10.5)
[2020-01-18 09:36] LABS: Hemoglobin 6.6 gm/dl (12.0-16.0)
[2020-01-18] MEDS ORDERED: TYLENOL EXTRA STRENGTH 500 MG PO STA (09:44)
[2020-01-18 09:45] LABS: INFLUENZA A NEGATIVE (NEGATIVE); INFLUENZA B NEGATIVE (NEGATIVE)
[2020-01-18] MEDS ORDERED: TYLENOL EXTRA STRENGTH 500 MG ONE (09:46)
[2020-01-18 09:48] LABS: INR 1.46 (0.8-3.0); PROTIME 16.6 SECONDS (9.95-12.35)
[2020-01-18] MEDS: VANCOMYCIN 1 GRAM/200 ML BAG 1 GM/200 ML PIGGYBACK IV SCH (09:49)
[2020-01-18 09:54] LABS: ALBUMIN 3.7 g/dL (3.5-5.0); ALKALINE PHOSPHATASE 100 U/L (38-126); AMYLASE < 30 U/L (30-110); ANION GAP 12.2 MEQ/L (5-15); BLOOD UREA NITROGEN 17 mg/dL (7-17); CHLORIDE 96 mmol/L (98-107); Calcium 8.8 mg/dL (8.4-10.2); Carbon Dioxide 25 mmol/L (22-30); Creatinine 1 1.08 mg/dL (0.52-1.04); EST GLOMERULAR FILTRATION RATE 54.6 ML/MIN; Glucose 105 mg/dL (74-106); LIPASE 18 U/L (23-300); Potassium 3.8 mmol/L (3.5-5.1); SGOT/AST 30 U/L (14-36); SGPT/ALT 33 U/L (0-35); SODIUM 129 mmol/L (137-145); Total Protein 7.4 g/dL (6.3-8.2)
[2020-01-18 09:57] LABS: ANISOCYTOSIS 2+; BAND 25 % (0.0-2.0); Hypochromia 2+; Lymphocytes 3 % (24-44); Monocyte 6 % (0.0-12.0); Neutrophils 66 % (36.0-66.0); Nucleated Red Blood Cell 1 %; Platelet Estimate INCREASED (NORMAL); Poikilocytosis 1+; Polychromasia 1+; Total Cells Counted 100
[2020-01-18 09:58] LABS: Absolute Neutrophil Ct (ANC) 32.63 (1.4-6.9)
[2020-01-18 10:03] LABS: MAGNESIUM 1.9 mg/dL (1.6-2.3)
[2020-01-18 10:31] LABS: Appearance CLOUDY (CLEAR); Bilirubin NEGATIVE (NEGATIVE); Blood SMALL Ery/ul (0-5); Glucose 50 mg/dL (NEGATIVE); Ketones NEGATIVE (NEGATIVE); Leukocyte Esterase NEGATIVE (NEGATIVE); Mucus SLIGHT /HPF (NEGATIVE); Nitrite NEGATIVE (NEGATIVE); Protein,Urine Dip 100 (Negative); Specific Gravity 1.023 (1.005-1.025); Urobilinogen NEGATIVE mg/dL (0-1)
[2020-01-18] MEDS: DUONEB 0.5-3 MG/3 ml Neb IH PRN (12:35)
[2020-01-18] MEDS: Sodium Chloride 0.9% 1000 ML 1,000 ML IV SCH ×3 (13:04→23:15)
[2020-01-18] MEDS: ENOXAPARIN SODIUM SQ SCH (13:56)
[2020-01-18] MEDS ORDERED: Pepcid 20 MG VIAL IV SCH (14:00)
[2020-01-18] MEDS: DUONEB 0.5-3 MG/3 ml Neb IH SCH ×3 (14:57→22:54)
[2020-01-18] MEDS ORDERED: VENTOLIN COMMON CANISTER IH PRN (15:04)
[2020-01-18] MEDS ORDERED: Nitrostat 0.4 MG Tablet SL PRN (15:04)
[2020-01-18] MEDS: THERAGRAN MULTIVITAMIN PO SCH (15:35)
[2020-01-18] MEDS: Zanaflex 4 MG PO SCH ×2 (15:35→22:48)
[2020-01-18] MEDS: KLONOPIN PO SCH ×2 (15:35→22:47)
[2020-01-18] MEDS: Imdur 30 MG PO SCH (15:35)
[2020-01-18] MEDS: DELTASONE 10 MG PO SCH (15:35)
[2020-01-18] MEDS: ZOLOFT 50 MG TABLET PO SCH (15:36)
[2020-01-18] MEDS: Neurontin 400 MG PO SCH ×3 (15:36→23:07)
[2020-01-18] MEDS: SYNTHROID 25 MCG PO SCH (15:36)
[2020-01-18 16:58] LABS: ABO TYPING A; Antibody Screen NEGATIVE (NEGATIVE); RH TYPING POSITIVE
[2020-01-18 17:00] LABS: CROSS MATCH (PRBC) COMPATIBLE (COMPATIBLE)
[2020-01-18] MEDS: TYLENOL 325 MG PO PRN ×2 (17:17→19:01)
[2020-01-18] MEDS: MARY'S MOUTHWASH PO SCH ×2 (18:10→22:48)
[2020-01-18] MEDS ORDERED: solu-MEDROL 125 MG IV ONE (18:55)
[2020-01-18] MEDS ORDERED: BENADRYL 50 MG/ML IV ONE (18:55)
[2020-01-18] MEDS ORDERED: TYLENOL 325 MG ONE (19:00)
[2020-01-18] MEDS: Advair Hfa 115/21 Common canister IH SCH (19:44)
[2020-01-18] MEDS ORDERED: LEVOPHED 4 MG/4 ML 4,000 MCG in Dextrose 5%/Water IV Soln. 500 ML 500 ML IV PRN (20:12)
[2020-01-18] MEDS: Maxipime 2 GM** 2 G in Dextrose 5%/Water IV Soln. 100ML PLUS BAG 100 ML IV SCH (22:47)
[2020-01-18] MEDS: Seroquel 100 MG PO SCH (22:47)
[2020-01-18] MEDS: Pepcid 20 MG PO SCH ×2 (22:47→23:07)
[2020-01-18] MEDS: SOMA 350 MG PO SCH (22:48)
[2020-01-18] MEDS ORDERED: Sodium Chloride 0.9% 500 ML 500 ML IV ONE (23:31)
[2020-01-19] MEDS: DUONEB 0.5-3 MG/3 ml Neb IH SCH ×6 (03:15→23:33)
[2020-01-19 03:32] LABS: A-aADO2 71; ABG POTASSIUM 3.9 (3.5-5.1); ARTERIAL BLD GAS O2 SATURATION 96.5 % (95-100); ARTERIAL BLOOD GAS BASE EXCESS -3.1 (-2.0-2.0); ARTERIAL BLOOD GAS FIO2 32 %; ARTERIAL BLOOD GAS PCO2 39 mmHg (35-45); ARTERIAL BLOOD GAS PO2 108 mmHg (75-100); ARTERIAL BLOOD GAS VENT MODE BiPAP; ARTERIAL BLOOD GAS pH 7.36 (7.35-7.45); HGB O2 SAT 96.4 g/dF (94-100)
[2020-01-19 05:41] LABS: Hematocrit 23.3 % (35-47); Mean Corpuscular Hemoglobin 23.1 pg (26-32); Mean Corpuscular Hgb Concent. 29.2 g/dl (32-36); Platelet Count 430 K/mm3 (150-450); Red Blood Count 2.95 M/mm3 (4.1-5.4); Red Cell Distribution Width 20.4 % (11.5-14.0)
[2020-01-19 05:56] LABS: Hemoglobin 6.8 gm/dl (12.0-16.0); White Blood Count 31.1 K/mm3 (4.0-10.5)
[2020-01-19 06:16] LABS: ALBUMIN 2.7 g/dL (3.5-5.0); ALKALINE PHOSPHATASE 78 U/L (38-126); ANION GAP 11.5 MEQ/L (5-15); BLOOD UREA NITROGEN 20 mg/dL (7-17); CHLORIDE 105 mmol/L (98-107); Carbon Dioxide 21 mmol/L (22-30); Creatinine 1 0.84 mg/dL (0.52-1.04); EST GLOMERULAR FILTRATION RATE > 60.0 ML/MIN; Glucose 155 mg/dL (74-106); Potassium 4.2 mmol/L (3.5-5.1); SGOT/AST 25 U/L (14-36); SGPT/ALT 23 U/L (0-35); SODIUM 133 mmol/L (137-145); Total Protein 5.5 g/dL (6.3-8.2)
[2020-01-19] MEDS: TYLENOL 325 MG PO PRN ×3 (06:47→18:01)
[2020-01-19] MEDS: Advair Hfa 115/21 Common canister IH SCH ×2 (07:33→19:15)
[2020-01-19 07:47] LABS: CROSS MATCH (PRBC) COMPATIBLE (COMPATIBLE)
[2020-01-19] MEDS: ENOXAPARIN SODIUM SQ SCH (08:12)
[2020-01-19] MEDS: Neurontin 400 MG PO SCH ×3 (08:13→21:58)
[2020-01-19] MEDS: ZOLOFT 50 MG TABLET PO SCH (08:13)
[2020-01-19] MEDS: THERAGRAN MULTIVITAMIN PO SCH (08:13)
[2020-01-19] MEDS: Pepcid 20 MG PO SCH ×2 (08:13→21:59)
[2020-01-19] MEDS: Zanaflex 4 MG PO SCH ×3 (08:13→21:58)
[2020-01-19] MEDS: DELTASONE 10 MG PO SCH (08:13)
[2020-01-19] MEDS: Imdur 30 MG PO SCH (08:14)
[2020-01-19] MEDS: SYNTHROID 25 MCG PO SCH (08:14)
[2020-01-19] MEDS: KLONOPIN PO SCH ×3 (08:14→21:58)
[2020-01-19] MEDS: Seroquel 100 MG PO SCH ×2 (08:14→21:58)
[2020-01-19] MEDS: VANCOMYCIN 1 GRAM/200 ML BAG 1 GM/200 ML PIGGYBACK IV SCH (08:15)
[2020-01-19] MEDS: MARY'S MOUTHWASH PO SCH ×4 (08:17→22:32)
[2020-01-19 08:32] LABS: BAND 15 % (0.0-2.0); Lymphocytes 4 % (24-44); Neutrophils 81 % (36.0-66.0); Total Cells Counted 100
[2020-01-19 08:33] LABS: Platelet Estimate NORMAL (NORMAL)
[2020-01-19 08:34] LABS: Hypochromia 1+
[2020-01-19] MEDS: Maxipime 2 GM** 2 G in Dextrose 5%/Water IV Soln. 100ML PLUS BAG 100 ML IV SCH ×2 (08:54→21:56)
[2020-01-19] MEDS ORDERED: SERTRALINE HCL PO SCH (10:00)
[2020-01-19] MEDS ORDERED: NON-FORMULARY ITEM (Prenatal Vits W-Ca,Fe,Fa(<1mg) [Prenatal] 1 EACH) PO SCH (10:00)
--- NOTE | 2020-01-19 10:08 | PCM.HP ---
History of Present Illness - Chief Complaint Chief Complaint: c/o short of breath for 3-4 days History of Present Illness: is a 64 year old female.Patient comes in with increasing shortness of breath, cough and wheezing. Patient is not been evaluated treated over the past 3 days. Patient was admitted in the hospital 1 month ago - Review of Systems Constitutional: Fever, Chills, Weakness Eyes: No Symptoms Ears, Nose, & Throat: No Symptoms Respiratory: Cough, Orthopnea, Short Of Breath, Wheezing Cardiac: No Chest Pain, No Edema, No Syncope Abdominal/Gastrointestinal: No Abdominal Pain, No Nausea, No Vomiting, No Diarrhea Genitourinary Symptoms: No Dysuria Musculoskeletal: No Back Pain, No Neck Pain Skin: No Rash Neurological: No Dizziness, No Focal Weakness, No Sensory Changes Psychological: No Symptoms Endocrine: No Symptoms Hematologic/Lymphatic: No Symptoms Immunological/Allergic: No Symptoms Medications & Allergies Home Medications: Home Medication List Albuterol/Ipratropium Mdi [Combivent Inhaler] 1 puff IH Q4HWA 12/29/12 [History Confirmed 01/18/20] Clonazepam 0.5 mg [Klonopin 0.5 MG] 2 mg PO TID 12/29/12 [History Confirmed 01/18/20] Famotidine 20 mg [Pepcid 20 MG] 40 mg PO BID 12/29/12 [History Confirmed 01/18/20] Fluticasone/Salmeterol Disc [Advair 250-50 Diskus 14 Dose] 1 puff IH BID 12/29/12 [History Confirmed 01/18/20] Sertraline HCl 100 mg [Zoloft 100 MG] 200 mg PO DAILY 12/17/13 [History Confirme d 01/18/20] Isosorbide Mononitrate 30 mg [Imdur 30 MG] 30 mg PO DAILY 11/05/14 [History Confirmed 01/18/20] Tizanidine HCl 4 mg [Zanaflex 4 MG] 4 mg PO TID 01/16/15 [History Confirmed 01/18/20] Levothyroxine Sodium 25 Mcg [Synthroid 25 Mcg] 25 mcg PO DAILY 10/17/15 [History Confirmed 01/18/20] Quetiapine Fumarate [Seroquel] 200 mg PO QAM 10/17/15 [History Confirmed 01/18/20] Vits W-Ca,Fe,FA(<1Mg) [] 1 each PO DAILY 10/18/15 [History Confirmed 01/18/20] Nitroglycerin 0.4 mg Tablet [Nitrostat 0.4 MG Tablet] 0.4 mg SL UD PRN 11/15/15 [History Confirmed 01/18/20] Albuterol Common Canister [Ventolin Common Canister] 2 puff IH Q4-6HPRN PRN 07/08/19 [History Confirmed 01/18/20] Quetiapine Fumarate 300 mg PO QHS 07/08/19 [History Confirmed 01/18/20] Gabapentin 400 mg [Neurontin 400 MG] 800 mg PO TID #90 capsule 12/08/19 [Rx Confirmed 01/18/20] Carisoprodol 350 mg [Soma 350 mg] 350 mg PO HS 7 Days #7 tablet 12/24/19 [Rx Confirmed 01/18/20] Prednisone 10 mg [Deltasone 10 mg] 10 mg PO DAILY 01/18/20 [History Confirmed 01/18/20] Allergies/Adverse Reactions: Allergies Allergy/AdvReac Type Severity Reaction Status Date / Time morphine Allergy Severe Fainting Verified 01/18/20 08:34 oxycodone Allergy Shortness Verified 01/18/20 08:34 of Breath Penicillins Allergy Verified 01/18/20 08:34 [place] AdvReac Intermediate Headache Verified 01/18/20 08:34 omeprazole AdvReac Intermediate Stomach Verified 01/18/20 13:01 Pain bupropion HCl AdvReac Mild Hives Verified 01/18/20 08:34 [From Wellbutrin] - Past Medical History Past Medical History: Yes Neurological History: Migraines ENT History: No Pertinent History Cardiac History: Congestive Heart Failure, Coronary Artery Disease, High Cholesterol Respiratory History: Asthma, Bronchitis, COPD, Pneumonia Endocrine Medical History: Hypothyroidism Musculoskelatal History: Arthritis GI Medical History: GERD, Hernia, Polyps History: No Pertinent History Pyscho-Social History: Anxiety, Bipolar, Depression Reproductive Disorders: Fibroids Comment: 2 LEAKY VALVES. BORDERLINE PERSONALITY DISORDER, PTSD, manic depressive. bone deficiency - Female History Hx Last Menstrual Period: psot Are you now?: No - Past Surgical History Past Surgical History: Yes Neuro Surgical History: No Pertinent History Cardiac History: Cardiac Catheterization Respiratory Surgery: No Pertinent History GI Surgical History: Other Genitourinary Surgical Hx: No Pertinent History Musculskeletal Surgical Hx: Other Female Surgical History: Section Other Surgical History: ARM SURGERY, 2 c-sections, EGD with dilitation, Colonoscopy, heart cathx2 - Social History Smoking Status: Former smoker How long have you smoked: "40 years" Exposure to second hand smoke: Yes Alcohol: None Drug Use: marijuana Significant Family History: no pertinent family hx - Physical Exam Vital Signs: Vital Signs - 24 hr Temp Pulse Resp BP BP Pulse Ox 01/19/20 09:46 99 F 82 26 H 81/40 97 01/19/20 09:00 99.1 F 97 H 25 H 107/57 97 01/19/20 08:00 99.3 F 97 H 21 111/59 97 01/19/20 06:57 98.2 F 85 14 112/69 100 01/19/20 06:53 76 18 95 01/19/20 06:00 98.1 F 73 18 105/64 100 01/19/20 05:00 98.1 F 73 18 109/67 99 01/19/20 04:00 97.7 F 73 24 105/64 97 01/19/20 03:15 70 23 97 01/19/20 03:00 97.3 F 72 18 113/70 100 01/19/20 02:00 96.6 F 78 21 107/63 100 01/19/20 01:00 96.8 F 68 18 112/67 100 01/19/20 00:01 70 01/19/20 00:00 97.3 F 70 25 H 102/56 100 01/18/20 23:50 97.5 F 71 26 H 100/58 100 01/18/20 23:35 97.9 F 73 26 H 95/55 100 01/18/20 23:24 72 27 H 100 01/18/20 22:30 98.4 F 77 25 H 87/43 99 01/18/20 21:55 99.5 F 85 26 H 91/57 100 01/18/20 21:50 99.5 F 78 26 H 83/60 99 01/18/20 21:45 74 27 H 83/60 99 01/18/20 21:35 79 28 H 96/54 99 01/18/20 21:20 82 28 H 87/54 99 01/18/20 21:00 87 29 H 89/51 97 01/18/20 20:50 89 33 H 85/41 97 01/18/20 20:20 91 H 35 H 86/49 96 01/18/20 20:10 90 27 H 88/42 94 L 01/18/20 20:00 99.7 F 96 H 34 H 66/44 96 01/18/20 19:55 99 H 32 H 96 01/18/20 16:00 98.7 F 107 H 28 H 130/73 97 01/18/20 15:00 98 H 24 99 01/18/20 13:55 99 01/18/20 13:14 94 H 26 H 100 01/18/20 13:09 97.3 F 97 H 18 120/53 100 01/18/20 12:36 22 100 01/18/20 11:12 100.8 F 91 H 22 100 01/18/20 10:21 90 L General Appearance: no apparent distress, alert Neurologic Exam: alert, oriented x 3, cooperative, normal mood/affect, nml cere bellar function, nml station & gait, sensation nml, No motor deficits Eye Exam: PERRL/EOMI, eyes nml inspection Ears, Nose, Throat Exam: normal ENT inspection, TMs normal, pharynx normal, moist mucous membranes Neck Exam: normal inspection, non-tender, supple, full range of motion Respiratory Exam: respiratory distress, diminished breath sounds, accessory muscle use, crackles/rales, rhonchi, wheezing Cardiovascular Exam: regular rate/rhythm, normal heart sounds, normal peripheral pulses Gastrointestinal/Abdomen Exam: soft, normal bowel sounds, No tenderness, No mass Back Exam: normal inspection, normal range of motion, No CVA tenderness, No vertebral tenderness Extremity Exam: normal inspection, normal range of motion, pelvis stable Skin Exam: normal color, warm, dry, No rash Lymphatic Exam: No adenopathy Results - Labs Lab/Micro Results: Lab Results-Last 24 Hours 11/19/20 11/19/20 11/19/20 Range/Units 08:30 09:00 09:00 WBC 35.9 H* (4.0-10.5) K/mm3 RBC 3.07 L (4.1-5.4) M/mm3 Hgb 6.6 L* (12.0-16.0) gm/dl Hct 23.2 L (35-47) % MCV 75.6 L (78-100) fl MCH 21.5 L (26-32) pg MCHC 28.4 L (32-36) g/dl RDW 19.4 H (11.5-14.0) % Plt Count 639 H (150-450) K/mm3 MPV 10.1 (7.5-11.0) fl Absolute Granulocytes 32.63 H (1.4-6.9) Segmented Neutrophils 66 (36.0-66.0) % Band Neutrophils 25 H (0.0-2.0) % Lymphocytes (Manual) 3 L (24-44) % Monocytes (Manual) 6 (0.0-12.0) % Nucleated RBCs 1 % Hypochromia 2+ Platelet Estimate INCREASED (NORMAL) RBC Morphology ABNORMAL Polychromasia 1+ Poikilocytosis 1+ Anisocytosis 2+ Smear Path Review Puncture Site pCO2 (35-45) mmHg pO2 (75-100) mmHg Base Excess (-2.0-2.0) O2 Saturation (94-100) g/dF ABG pH (7.35-7.45) ABG HCO3 (22-28) ABG O2 Sat (Measured) (95-100) % Get Test A-a Gradient a/A Ratio Hemoglobin Carboxyhemoglobin (0.0-6.9) % THgb Methemoglobin (1.4-1.5) % Potassium (3.5-5.1) Temperature C POC O2 Flow Rate % Vent Mode Inspiratory BiPAP Expiratory BiPAP Sodium (137-145) mmol/L Chloride (98-107) mmol/L Carbon Dioxide (22-30) mmol/L Anion Gap (5-15) MEQ/L BUN (7-17) mg/dL Creatinine (0.52-1.04) mg/dL Estimated GFR ML/MIN Glucose (74-106) mg/dL POC Glucometer (74 to 106) mg/dL Lactic Acid (0.4-2.0) Calcium (8.4-10.2) mg/dL Magnesium 1.9 (1.6-2.3) mg/dL Total Bilirubin (0.2-1.3) mg/dL AST (14-36) U/L ALT (0-35) U/L Alkaline Phosphatase (38-126) U/L Troponin I < 0.012 (0.000-0.034) ng/mL NT-Pro-B Natriuret Pep 1330 H (0-900) pg/mL Serum Total Protein (6.3-8.2) g/dL Albumin (3.5-5.0) g/dL Urine Color (YELLOW) Urine Appearance (CLEAR) Urine pH (5-6) Ur Specific [place] (1.005-1.025) Urine Protein (Negative) Urine Ketones (NEGATIVE) Urine Blood (0-5) Erasto/ul Urine Nitrite (NEGATIVE) Urine Bilirubin (NEGATIVE) Urine Urobilinogen (0-1) mg/dL Ur Leukocyte Esterase (NEGATIVE) Urine WBC (Auto) (0-5) /HPF Urine RBC (Auto) (0-2) /HPF U Hyaline Cast (Auto) (0-2) /LPF U Epithel Cells (Auto) (FEW) /HPF Urine Bacteria (Auto) (NEGATIVE) /HPF Urine Mucus (Auto) (NEGATIVE) /HPF Urine Culture Reflexed (NO) Urine Glucose (NEGATIVE) mg/dL SARS-CoV-2 (PCR) (NEGATIVE) ABO Group Rh Factor Antibody Screen (NEGATIVE) Crossmatch (COMPATIBLE) 01/18/20 01/18/20 01/18/20 Range/Units 09:26 10:30 10:47 WBC (4.0-10.5) K/mm3 RBC (4.1-5.4) M/mm3 Hgb (12.0-16.0) gm/dl Hct (35-47) % MCV (78-100) fl MCH (26-32) pg MCHC (32-36) g/dl RDW (11.5-14.0) % Plt Count (150-450) K/mm3 MPV (7.5-11.0) fl Absolute Granulocytes (1.4-6.9) Segmented Neutrophils (36.0-66.0) % Band Neutrophils (0.0-2.0) % Lymphocytes (Manual) (24-44) % Monocytes (Manual) (0.0-12.0) % Nucleated RBCs % Hypochromia Platelet Estimate (NORMAL) RBC Morphology Polychromasia Poikilocytosis Anisocytosis Smear Path Review Puncture Site pCO2 (35-45) mmHg pO2 (75-100) mmHg Base Excess (-2.0-2.0) O2 Saturation (94-100) g/dF ABG pH (7.35-7.45) ABG HCO3 (22-28) ABG O2 Sat (Measured) (95-100) % Get Test A-a Gradient a/A Ratio Hemoglobin Carboxyhemoglobin (0.0-6.9) % THgb Methemoglobin (1.4-1.5) % Potassium (3.5-5.1) Temperature C POC O2 Flow Rate % Vent Mode Inspiratory BiPAP Expiratory BiPAP Sodium (137-145) mmol/L Chloride (98-107) mmol/L Carbon Dioxide (22-30) mmol/L Anion Gap (5-15) MEQ/L BUN (7-17) mg/dL Creatinine (0.52-1.04) mg/dL Estimated GFR ML/MIN Glucose (74-106) mg/dL POC Glucometer (74 to 106) mg/dL Lactic Acid 1.1 (0.4-2.0) Calcium (8.4-10.2) mg/dL Magnesium (1.6-2.3) mg/dL Total Bilirubin (0.2-1.3) mg/dL AST (14-36) U/L ALT (0-35) U/L Alkaline Phosphatase (38-126) U/L Troponin I (0.000-0.034) ng/mL NT-Pro-B Natriuret Pep (0-900) pg/mL Serum Total Protein (6.3-8.2) g/dL Albumin (3.5-5.0) g/dL Urine Color MANA (YELLOW) Urine Appearance CLOUDY (CLEAR) Urine pH 5.0 (5-6) Ur Specific [place] 1.023 (1.005-1.025) Urine Protein 100 (Negative) Urine Ketones NEGATIVE (NEGATIVE) Urine Blood SMALL (0-5) Erasto/ul Urine Nitrite NEGATIVE (NEGATIVE) Urine Bilirubin NEGATIVE (NEGATIVE) Urine Urobilinogen NEGATIVE (0-1) mg/dL Ur Leukocyte Esterase NEGATIVE (NEGATIVE) Urine WBC (Auto) 3-5 (0-5) /HPF Urine RBC (Auto) NONE (0-2) /HPF U Hyaline Cast (Auto) 3-5 (0-2) /LPF U Epithel Cells (Auto) NONE (FEW) /HPF Urine Bacteria (Auto) NONE (NEGATIVE) /HPF Urine Mucus (Auto) SLIGHT (NEGATIVE) /HPF Urine Culture Reflexed NO (NO) Urine Glucose 50 (NEGATIVE) mg/dL SARS-CoV-2 (PCR) NEGATIVE (NEGATIVE) ABO Group Rh Factor Antibody Screen (NEGATIVE) Crossmatch (COMPATIBLE) 01/18/20 01/18/20 01/18/20 Range/Units 11:30 11:42 14:35 WBC (4.0-10.5) K/mm3 RBC (4.1-5.4) M/mm3 Hgb (12.0-16.0) gm/dl Hct (35-47) % MCV (78-100) fl MCH (26-32) pg MCHC (32-36) g/dl RDW (11.5-14.0) % Plt Count (150-450) K/mm3 MPV (7.5-11.0) fl Absolute Granulocytes (1.4-6.9) Segmented Neutrophils (36.0-66.0) % Band Neutrophils (0.0-2.0) % Lymphocytes (Manual) (24-44) % Monocytes (Manual) (0.0-12.0) % Nucleated RBCs % Hypochromia Platelet Estimate (NORMAL) RBC Morphology Polychromasia Poikilocytosis Anisocytosis Smear Path Review Puncture Site pCO2 (35-45) mmHg pO2 (75-100) mmHg Base Excess (-2.0-2.0) O2 Saturation (94-100) g/dF ABG pH (7.35-7.45) ABG HCO3 (22-28) ABG O2 Sat (Measured) (95-100) % Get Test A-a Gradient a/A Ratio Hemoglobin Carboxyhemoglobin (0.0-6.9) % THgb Methemoglobin (1.4-1.5) % Potassium (3.5-5.1) Temperature C POC O2 Flow Rate % Vent Mode Inspiratory BiPAP Expiratory BiPAP Sodium (137-145) mmol/L Chloride (98-107) mmol/L Carbon Dioxide (22-30) mmol/L Anion Gap (5-15) MEQ/L BUN (7-17) mg/dL Creatinine (0.52-1.04) mg/dL Estimated GFR ML/MIN Glucose (74-106) mg/dL POC Glucometer (74 to 106) mg/dL Lactic Acid (0.4-2.0) Calcium (8.4-10.2) mg/dL Magnesium (1.6-2.3) mg/dL Total Bilirubin (0.2-1.3) mg/dL AST (14-36) U/L ALT (0-35) U/L Alkaline Phosphatase (38-126) U/L Troponin I < 0.012 < 0.012 (0.000-0.034) ng/mL NT-Pro-B Natriuret Pep (0-900) pg/mL Serum Total Protein (6.3-8.2) g/dL Albumin (3.5-5.0) g/dL Urine Color (YELLOW) Urine Appearance (CLEAR) Urine pH (5-6) Ur Specific [place] (1.005-1.025) Urine Protein (Negative) Urine Ketones (NEGATIVE) Urine Blood (0-5) Erasto/ul Urine Nitrite (NEGATIVE) Urine Bilirubin (NEGATIVE) Urine Urobilinogen (0-1) mg/dL Ur Leukocyte Esterase (NEGATIVE) Urine WBC (Auto) (0-5) /HPF Urine RBC (Auto) (0-2) /HPF U Hyaline Cast (Auto) (0-2) /LPF U Epithel Cells (Auto) (FEW) /HPF Urine Bacteria (Auto) (NEGATIVE) /HPF Urine Mucus (Auto) (NEGATIVE) /HPF Urine Culture Reflexed (NO) Urine Glucose (NEGATIVE) mg/dL SARS-CoV-2 (PCR) (NEGATIVE) ABO Group Rh Factor Antibody Screen (NEGATIVE) Crossmatch COMPATIBLE (COMPATIBLE) 01/18/20 01/18/20 01/18/20 Range/Units 16:00 17:35 20:45 WBC (4.0-10.5) K/mm3 RBC (4.1-5.4) M/mm3 Hgb (12.0-16.0) gm/dl Hct (35-47) % MCV (78-100) fl MCH (26-32) pg MCHC (32-36) g/dl RDW (11.5-14.0) % Plt Count (150-450) K/mm3 MPV (7.5-11.0) fl Absolute Granulocytes (1.4-6.9) Segmented Neutrophils (36.0-66.0) % Band Neutrophils (0.0-2.0) % Lymphocytes (Manual) (24-44) % Monocytes (Manual) (0.0-12.0) % Nucleated RBCs % Hypochromia Platelet Estimate (NORMAL) RBC Morphology Polychromasia Poikilocytosis Anisocytosis Smear Path Review Puncture Site pCO2 (35-45) mmHg pO2 (75-100) mmHg Base Excess (-2.0-2.0) O2 Saturation (94-100) g/dF ABG pH (7.35-7.45) ABG HCO3 (22-28) ABG O2 Sat (Measured) (95-100) % Get Test A-a Gradient a/A Ratio Hemoglobin Carboxyhemoglobin (0.0-6.9) % THgb Methemoglobin (1.4-1.5) % Potassium (3.5-5.1) Temperature C POC O2 Flow Rate % Vent Mode Inspiratory BiPAP Expiratory BiPAP Sodium (137-145) mmol/L Chloride (98-107) mmol/L Carbon Dioxide (22-30) mmol/L Anion Gap (5-15) MEQ/L BUN (7-17) mg/dL Creatinine (0.52-1.04) mg/dL Estimated GFR ML/MIN Glucose (74-106) mg/dL POC Glucometer (74 to 106) mg/dL Lactic Acid (0.4-2.0) Calcium (8.4-10.2) mg/dL Magnesium (1.6-2.3) mg/dL Total Bilirubin (0.2-1.3) mg/dL AST (14-36) U/L ALT (0-35) U/L Alkaline Phosphatase (38-126) U/L Troponin I < 0.012 < 0.012 (0.000-0.034) ng/mL NT-Pro-B Natriuret Pep (0-900) pg/mL Serum Total Protein (6.3-8.2) g/dL Albumin (3.5-5.0) g/dL Urine Color (YELLOW) Urine Appearance (CLEAR) Urine pH (5-6) Ur Specific [place] (1.005-1.025) Urine Protein (Negative) Urine Ketones (NEGATIVE) Urine Blood (0-5) Erasto/ul Urine Nitrite (NEGATIVE) Urine Bilirubin (NEGATIVE) Urine Urobilinogen (0-1) mg/dL Ur Leukocyte Esterase (NEGATIVE) Urine WBC (Auto) (0-5) /HPF Urine RBC (Auto) (0-2) /HPF U Hyaline Cast (Auto) (0-2) /LPF U Epithel Cells (Auto) (FEW) /HPF Urine Bacteria (Auto) (NEGATIVE) /HPF Urine Mucus (Auto) (NEGATIVE) /HPF Urine Culture Reflexed (NO) Urine Glucose (NEGATIVE) mg/dL SARS-CoV-2 (PCR) (NEGATIVE) ABO Group A Rh Factor POSITIVE Antibody Screen NEGATIVE (NEGATIVE) Crossmatch COMPATIBLE (COMPATIBLE) 01/18/20 01/19/20 01/19/20 Range/Units 23:03 03:25 04:30 WBC 31.1 H* (4.0-10.5) K/mm3 RBC 2.95 L (4.1-5.4) M/mm3 Hgb 6.8 L* (12.0-16.0) gm/dl Hct 23.3 L (35-47) % MCV 79.0 (78-100) fl MCH 23.1 L (26-32) pg MCHC 29.2 L (32-36) g/dl RDW 20.4 H (11.5-14.0) % Plt Count 430 (150-450) K/mm3 MPV 10.0 (7.5-11.0) fl Absolute Granulocytes (1.4-6.9) Segmented Neutrophils 81 H (36.0-66.0) % Band Neutrophils 15 H (0.0-2.0) % Lymphocytes (Manual) 4 L (24-44) % Monocytes (Manual) (0.0-12.0) % Nucleated RBCs % Hypochromia 1+ Platelet Estimate NORMAL (NORMAL) RBC Morphology ABNORMAL Polychromasia Poikilocytosis Anisocytosis Smear Path Review Puncture Site lb pCO2 39 (35-45) mmHg pO2 108 H (75-100) mmHg Base Excess -3.1 L (-2.0-2.0) O2 Saturation 96.4 (94-100) g/dF ABG pH 7.36 (7.35-7.45) ABG HCO3 22.0 (22-28) ABG O2 Sat (Measured) 96.5 (95-100) % Get Test na A-a Gradient 71 a/A Ratio 0.60 Hemoglobin 7.0 L* Carboxyhemoglobin 0.0 (0.0-6.9) % THgb Methemoglobin 0.0 L (1.4-1.5) % Potassium 3.9 (3.5-5.1) Temperature 37.0 C POC O2 Flow Rate 32 % Vent Mode BiPAP Inspiratory BiPAP 12 Expiratory BiPAP 6 Sodium (137-145) mmol/L Chloride (98-107) mmol/L Carbon Dioxide (22-30) mmol/L Anion Gap (5-15) MEQ/L BUN (7-17) mg/dL Creatinine (0.52-1.04) mg/dL Estimated GFR ML/MIN Glucose (74-106) mg/dL POC Glucometer 178 H (74 to 106) mg/dL Lactic Acid (0.4-2.0) Calcium (8.4-10.2) mg/dL Magnesium (1.6-2.3) mg/dL Total Bilirubin (0.2-1.3) mg/dL AST (14-36) U/L ALT (0-35) U/L Alkaline Phosphatase (38-126) U/L Troponin I (0.000-0.034) ng/mL NT-Pro-B Natriuret Pep (0-900) pg/mL Serum Total Protein (6.3-8.2) g/dL Albumin (3.5-5.0) g/dL Urine Color (YELLOW) Urine Appearance (CLEAR) Urine pH (5-6) Ur Specific [place] (1.005-1.025) Urine Protein (Negative) Urine Ketones (NEGATIVE) Urine Blood (0-5) Erasto/ul Urine Nitrite (NEGATIVE) Urine Bilirubin (NEGATIVE) Urine Urobilinogen (0-1) mg/dL Ur Leukocyte Esterase (NEGATIVE) Urine WBC (Auto) (0-5) /HPF Urine RBC (Auto) (0-2) /HPF U Hyaline Cast (Auto) (0-2) /LPF U Epithel Cells (Auto) (FEW) /HPF Urine Bacteria (Auto) (NEGATIVE) /HPF Urine Mucus (Auto) (NEGATIVE) /HPF Urine Culture Reflexed (NO) Urine Glucose (NEGATIVE) mg/dL SARS-CoV-2 (PCR) (NEGATIVE) ABO Group Rh Factor Antibody Screen (NEGATIVE) Crossmatch (COMPATIBLE) 01/19/20 01/19/20 01/19/20 Range/Units 04:30 18:20 18:20 WBC (4.0-10.5) K/mm3 RBC (4.1-5.4) M/mm3 Hgb (12.0-16.0) gm/dl Hct (35-47) % MCV (78-100) fl MCH (26-32) pg MCHC (32-36) g/dl RDW (11.5-14.0) % Plt Count (150-450) K/mm3 MPV (7.5-11.0) fl Absolute Granulocytes (1.4-6.9) Segmented Neutrophils (36.0-66.0) % Band Neutrophils (0.0-2.0) % Lymphocytes (Manual) (24-44) % Monocytes (Manual) (0.0-12.0) % Nucleated RBCs % Hypochromia Platelet Estimate (NORMAL) RBC Morphology Polychromasia Poikilocytosis Anisocytosis Smear Path Review Puncture Site pCO2 (35-45) mmHg pO2 (75-100) mmHg Base Excess (-2.0-2.0) O2 Saturation (94-100) g/dF ABG pH (7.35-7.45) ABG HCO3 (22-28) ABG O2 Sat (Measured) (95-100) % Get Test A-a Gradient a/A Ratio Hemoglobin Carboxyhemoglobin (0.0-6.9) % THgb Methemoglobin (1.4-1.5) % Potassium 4.2 (3.5-5.1) Temperature C POC O2 Flow Rate % Vent Mode Inspiratory BiPAP Expiratory BiPAP Sodium 133 L (137-145) mmol/L Chloride 105 (98-107) mmol/L Carbon Dioxide 21 L (22-30) mmol/L Anion Gap 11.5 (5-15) MEQ/L BUN 20 H (7-17) mg/dL Creatinine 0.84 (0.52-1.04) mg/dL Estimated GFR > 60.0 ML/MIN Glucose 155 H (74-106) mg/dL POC Glucometer (74 to 106) mg/dL Lactic Acid (0.4-2.0) Calcium 8.0 L (8.4-10.2) mg/dL Magnesium (1.6-2.3) mg/dL Total Bilirubin 0.40 (0.2-1.3) mg/dL AST 25 (14-36) U/L ALT 23 (0-35) U/L Alkaline Phosphatase 78 (38-126) U/L Troponin I (0.000-0.034) ng/mL NT-Pro-B Natriuret Pep (0-900) pg/mL Serum Total Protein 5.5 L (6.3-8.2) g/dL Albumin 2.7 L (3.5-5.0) g/dL Urine Color (YELLOW) Urine Appearance (CLEAR) Urine pH (5-6) Ur Specific [place] (1.005-1.025) Urine Protein (Negative) Urine Ketones (NEGATIVE) Urine Blood (0-5) Erasto/ul Urine Nitrite (NEGATIVE) Urine Bilirubin (NEGATIVE) Urine Urobilinogen (0-1) mg/dL Ur Leukocyte Esterase (NEGATIVE) Urine WBC (Auto) (0-5) /HPF Urine RBC (Auto) (0-2) /HPF U Hyaline Cast (Auto) (0-2) /LPF U Epithel Cells (Auto) (FEW) /HPF Urine Bacteria (Auto) (NEGATIVE) /HPF Urine Mucus (Auto) (NEGATIVE) /HPF Urine Culture Reflexed (NO) Urine Glucose (NEGATIVE) mg/dL SARS-CoV-2 (PCR) (NEGATIVE) ABO Group Rh Factor Antibody Screen (NEGATIVE) Crossmatch COMPATIBLE COMPATIBLE (COMPATIBLE) - Radiology Impressions Radiology Exams & Impressions: Radiology Procedures Category Date Time Status CHEST 1 VIEW (PORTABLE) Stat Exams 01/18/20 08:27 Completed RAD/CHEST 1 VIEW (PORTABLE) Indication: Dyspnea. Covid 19 exposure. Comparison: December 21, 2019. Portable chest demonstrates new right upper lobe consolidating airspace disease. Remaining heart and lungs unremarkable with stable large hiatal hernia. Bony thorax intact. - Other Procedures and Tests Respiratory Therapy 01/18/20 10:09 Oxygen Nasal Cannula 3 lpm 01/18/20 13:14 Respiratory Therapy Assessment DAILY 01/18/20 20:30 BiPap/CPAP ROUTINE Assessment/Plan (1) HAP (hospital-acquired pneumonia) Current Visit: Yes Status: Acute Code(s): J18.9 - PNEUMONIA, UNSPECIFIED ORGANISM; Y95 - NOSOCOMIAL CONDITION (2) Sepsis due to pneumonia Current Visit: Yes Status: Acute Code(s): J18.9 - PNEUMONIA, UNSPECIFIED ORGANISM; A41.9 - SEPSIS, UNSPECIFIED ORGANISM (3) COPD with acute exacerbation Current Visit: No Status: Acute Code(s): J44.1 - CHRONIC OBSTRUCTIVE PULMONARY DISEASE W (ACUTE) EXACERBATION (4) Normocytic anemia Current Visit: No Status: Acute Code(s): D64.9 - ANEMIA, UNSPECIFIED
[2020-01-19] MEDS: Sodium Chloride 0.9% 1000 ML 1,000 ML IV SCH ×2 (12:18→18:59)
[2020-01-19 14:40] LABS: Hematocrit 28.3 % (35-47); Hemoglobin 8.8 gm/dl (12.0-16.0)
[2020-01-19] MEDS: SOMA 350 MG PO SCH (21:59)
[2020-01-20] MEDS: Sodium Chloride 0.9% 1000 ML 1,000 ML IV SCH ×3 (02:13→19:54)
[2020-01-20] MEDS: DUONEB 0.5-3 MG/3 ml Neb IH SCH ×6 (02:54→22:26)
[2020-01-20] MEDS: Advair Hfa 115/21 Common canister IH SCH ×2 (07:04→17:46)
--- NOTE | 2020-01-20 07:30 | PCM.NOTE ---
Date and Time: 01/20/20716 Subjective Assessment: doing ok - Review of Systems Constitutional: No Fever, No Chills Eyes: No Symptoms Ears, Nose, & Throat: No Symptoms Respiratory: No Cough, No Short Of Breath Cardiac: No Chest Pain, No Edema, No Syncope Abdominal/Gastrointestinal: No Abdominal Pain, No Nausea, No Vomiting, No Diarrhea Genitourinary Symptoms: No Dysuria Musculoskeletal: No Back Pain, No Neck Pain Skin: No Rash Neurological: No Dizziness, No Focal Weakness, No Sensory Changes Psychological: No Symptoms Endocrine: No Symptoms Hematologic/Lymphatic: No Symptoms Immunological/Allergic: No Symptoms Objective Exam General Appearance: no apparent distress, alert Neurologic Exam: alert, oriented x 3, cooperative, normal mood/affect, nml cerebellar function, sensation nml, No motor deficits Skin Exam: normal color, warm, dry Eye Exam: PERRL, EOMI, eyes nml inspection Ears, Nose, Throat Exam: normal ENT inspection, pharynx normal, moist mucous membranes Neck Exam: normal inspection, non-tender, supple, full range of motion Respiratory Exam: diminished breath sounds, crackles/rales, rhonchi, wheezing, No respiratory distress Cardiovascular Exam: regular rate/rhythm, normal heart sounds Gastrointestinal/Abdomen Exam: soft, No tenderness, No mass Extremity Exam: normal inspection, normal range of motion Back Exam: normal inspection, normal range of motion, No CVA tenderness, No vertebral tenderness Pelvic Exam: deferred Rectal Exam: deferred OBJECTIVE DATA Vital Signs: Vital Signs - 24 hr Temp Pulse Resp BP Pulse Ox 01/20/20 07:08 74 24 98 01/20/20 04:00 97.6 F 73 26 H 137/76 98 01/20/20 02:54 75 24 98 01/20/20 00:01 80 01/20/20 00:00 98.4 F 80 25 H 130/67 01/19/20 23:33 85 28 H 89 L 01/19/20 20:00 100 F 106 H 16 113/77 96 01/19/20 19:11 101 H 27 H 96 01/19/20 17:37 100.6 F 111 H 33 H 120/98 96 01/19/20 16:59 100 F 101 H 30 H 113/71 97 01/19/20 16:00 99.9 F 98 H 29 H 118/56 96 01/19/20 15:00 99.9 F 96 H 30 H 130/58 99 01/19/20 14:56 90 22 98 01/19/20 14:00 99.3 F 93 H 30 H 95/39 96 01/19/20 13:00 99.1 F 92 H 30 H 103/53 91 L 01/19/20 11:59 99.1 F 89 30 H 100/79 97 01/19/20 11:56 83 01/19/20 11:03 79 20 97 01/19/20 11:00 98.6 F 80 27 H 108/56 97 01/19/20 09:46 99 F 82 26 H 81/40 97 01/19/20 09:00 99.1 F 97 H 25 H 107/57 97 01/19/20 08:00 99.3 F 97 H 21 111/59 97 Oxygen-Last 24 hours Oxygen Flowrate (L/min)-RT 3 Pain Assessment - Last Documented Pain Intensity 5 Pain Scale Used 0-10 Pain Scale Intake and Output: Intake & Output 01/17/20 01/18/20 01/19/20 01/20/20 11:59 11:59 11:59 11:59 Intake Total 3071 4124 Output Total 400 2150 Balance 2671 1974 Weight 160 kg 76.1 kg 76.1 kg Lab Results: Lab Results-Last 24 Hours 01/19/20 01/19/20 01/19/20 Range/Units 04:30 14:34 18:20 Hgb 8.8 L D (12.0-16.0) gm/dl Hct 28.3 L (35-47) % Segmented Neutrophils 81 H (36.0-66.0) % Band Neutrophils 15 H (0.0-2.0) % Lymphocytes (Manual) 4 L (24-44) % Hypochromia 1+ Platelet Estimate NORMAL (NORMAL) RBC Morphology ABNORMAL Crossmatch COMPATIBLE (COMPATIBLE) 01/19/20 Range/Units 18:20 Hgb (12.0-16.0) gm/dl Hct (35-47) % Segmented Neutrophils (36.0-66.0) % Band Neutrophils (0.0-2.0) % Lymphocytes (Manual) (24-44) % Hypochromia Platelet Estimate (NORMAL) RBC Morphology Crossmatch COMPATIBLE (COMPATIBLE) Radiology Exams: Radiology Procedures Category Date Time Status CHEST 1 VIEW (PORTABLE) Stat Exams 01/18/20 08:27 Completed CHEST W/WO CONTRAST [CT] Urgent Exams 01/20/20 07:16 Ordered Multi-Disciplinary Progress Notes: Multi-Disciplinary Progress Notes 01/19/20 14:18 Case Management Note by Anabela Brown AFTER TRYING TO GET MULTIPLE AGENCIES TO SEE PATIENT AND TRYING TO DECIDE WHICH TO TRY NEXT PATIENT VOICED SHE REALLY DID NOT ANYONE COMING IN HER HOUSE D/T COVID CONCERNS. WILL HOLD OFF ON HHC AT THIS TIME. CAN SET UP AFTER DC IF STILL NEEDED WHEN FOLLOW UP PHONE CALL IS COMPLETE Initialized on 01/19/20 14:18 - END OF NOTE 01/19/20 13:59 Case Management Note by Anabela Brown [facility]- UNABLE TO ACCEPT PATIENT D/T THEY DO NOT SERVICE [facility] Initialized on 01/19/20 13:59 - END OF NOTE 01/19/20 12:14 Case Management Note by Anabela Brown REFERRAL FAXED TO [facility] AT THIS TIME Initialized on 01/19/20 12:14 - END OF NOTE Assessment/Plan (1) HAP (hospital-acquired pneumonia) Current Visit: Yes Status: Acute Assessment & Plan: Chief Complaint Diagnosis c/o short of breath for 3-4 days Allergies Allergy/AdvReac Type Severity Reaction Status Date / Time morphine Allergy Severe Fainting Verified 01/18/20 08:34 oxycodone Allergy Shortness Verified 01/18/20 08:34 of Breath Penicillins Allergy Verified 01/18/20 08:34 [place] AdvReac Intermediate Headache Verified 01/18/20 08:34 omeprazole AdvReac Intermediate Stomach Verified 01/18/20 13:01 Pain bupropion HCl AdvReac Mild Hives Verified 01/18/20 08:34 [From Wellbutrin] Vital Signs (Last 24 hours) Temp Pulse Resp BP Pulse Ox 01/20/20 07:08 74 24 98 01/20/20 04:00 97.6 F 73 26 H 137/76 98 01/20/20 02:54 75 24 98 01/20/20 00:01 80 01/20/20 00:00 98.4 F 80 25 H 130/67 01/19/20 23:33 85 28 H 89 L 01/19/20 20:00 100 F 106 H 16 113/77 96 01/19/20 19:11 101 H 27 H 96 11/20/20 17:37 100.6 F 111 H 33 H 120/98 96 01/19/20 16:59 100 F 101 H 30 H 113/71 97 01/19/20 16:00 99.9 F 98 H 29 H 118/56 96 01/19/20 15:00 99.9 F 96 H 30 H 130/58 99 01/19/20 14:56 90 22 98 01/19/20 14:00 99.3 F 93 H 30 H 95/39 96 01/19/20 13:00 99.1 F 92 H 30 H 103/53 91 L 01/19/20 11:59 99.1 F 89 30 H 100/79 97 01/19/20 11:56 83 01/19/20 11:03 79 20 97 01/19/20 11:00 98.6 F 80 27 H 108/56 97 01/19/20 09:46 99 F 82 26 H 81/40 97 01/19/20 09:00 99.1 F 97 H 25 H 107/57 97 01/19/20 08:00 99.3 F 97 H 21 111/59 97 Home Medications Medication Instructions Recorded Confirmed Last Taken Type Prednisone 10 mg [Deltasone 10 10 mg PO DAILY 01/18/20 01/18/20 Unknown History mg] Current Medications Generic Name Dose Route Start Last Admin Trade Name Freq PRN Reason Stop Dose Admin Acetaminophen 650 mg 01/18/20 10:09 01/19/20 18:01 Tylenol 325 Mg PO 02/17/20 10:08 650 mg Q4H PRN PRN Administration PAIN AND/OR FEVER Albuterol Sulfate 2 puff 01/18/20 15:04 Ventolin Common Canister IH 02/17/20 15:03 Q4HPRN PRN SHORTNESS OF BREATH Albuterol/Ipratropium 3 ml 01/18/20 10:09 01/18/20 12:35 Duoneb 0.5-3 Mg/3 Ml Neb IH 02/17/20 10:08 3 ml Q4HPRN PRN Administration SHORTNESS OF BREATH/WHEEZING Albuterol/Ipratropium 3 ml 01/18/20 15:00 01/20/20 07:03 Duoneb 0.5-3 Mg/3 Ml Neb IH 02/17/20 14:59 3 ml Q4HRT VALERY Administration Carisoprodol 350 mg 01/18/20 22:00 01/19/20 21:59 Soma 350 Mg PO 02/17/20 21:59 350 mg HS VALERY Administration Clonazepam 2 mg 01/18/20 15:00 01/19/20 21:58 Klonopin PO 02/17/20 14:59 2 mg TID VALERY Administration Device 1 01/22/20 08:30 Trough Drug Levels IJ 01/22/20 08:31 1XONLY ONE Diphenhydramine/Hydrocorti/Nystatin 10 ml 01/18/20 17:35 01/19/20 22:32 Tamara's Mouthwash PO 02/17/20 17:34 10 ml QID VALERY Administration Enoxaparin Sodium 40 mg 01/18/20 14:00 01/19/20 08:12 Enoxaparin Sodium SQ 02/17/20 13:59 40 mg DAILY VALERY Administration Famotidine 40 mg 01/18/20 22:00 01/19/20 21:59 Pepcid 20 Mg PO 02/17/20 21:59 40 mg BID VALERY Administration Gabapentin 800 mg 01/18/20 15:00 01/19/20 21:58 Neurontin 400 Mg PO 02/17/20 14:59 800 mg TID VALERY Administration Vancomycin HCl 1 gm in 200 mls @ 125 mls/hr 01/18/20 09:00 01/19/20 08:15 Vancomycin 1 Gram/200 Ml Bag IV 02/17/20 08:59 125 mls/hr Q24H VALERY 125 mls/hr Administration Sodium Chloride 1,000 mls @ 150 mls/hr 01/18/20 10:15 01/20/20 02:13 Sodium Chloride 0.9% 1000 Ml IV 02/17/20 10:14 100 mls/hr .Q6H40M VALERY Administration Cefepime HCl 2 g/ Dextrose 100 mls @ 200 mls/hr 01/18/20 22:00 01/19/20 21:56 IV 02/17/20 21:59 200 mls/hr Q12HT VALERY Administration Norepinephrine 4,000 mcg/ 504 mls @ 37.8 mls/hr 01/18/20 20:12 01/18/20 20:25 Dextrose IV 02/17/20 20:11 15 mls/hr .[id number] PRN Administration SEVERE HYPOTENSION Protocol 5 MCG/MIN Isosorbide Mononitrate 30 mg 01/18/20 16:00 01/19/20 08:14 Imdur 30 Mg PO 02/17/20 15:59 30 mg DAILY VALERY Administration Levothyroxine Sodium 25 mcg 01/18/20 16:00 01/19/20 08:14 Synthroid 25 Mcg PO 02/17/20 15:59 25 mcg DAILY VALERY Administration Multivitamins Therapeutic 1 tab 01/18/20 16:00 01/19/20 08:13 Theragran Multivitamin PO 02/17/20 15:59 1 tab DAILY VALERY Administration Nitroglycerin 0.4 mg 01/18/20 15:04 Nitrostat 0.4 Mg Tablet SL 02/17/20 15:03 UD PRN CHEST PAIN Prednisone 10 mg 01/18/20 16:00 01/19/20 08:13 Deltasone 10 Mg PO 02/17/20 15:59 10 mg DAILY VALERY Administration Quetiapine Fumarate 200 mg 01/19/20 10:00 01/19/20 08:14 Seroquel 100 Mg PO 02/18/20 09:59 200 mg QAM VALERY Administration Quetiapine Fumarate 300 mg 01/18/20 22:00 01/19/20 21:58 Seroquel 100 Mg PO 02/17/20 21:59 300 mg QHS VALERY Administration Fluticasone/Salmeterol 2 puff 01/18/20 19:00 01/20/20 07:04 Advair Hfa 115/21 Common Canister* IH 02/17/20 18:59 2 puff BIDRT VALERY Administration Sertraline HCl 200 mg 01/18/20 16:00 01/19/20 08:13 Zoloft 50 Mg Tablet PO 02/17/20 15:59 200 mg DAILY VALERY Administration Tizanidine HCl 4 mg 01/18/20 15:00 01/19/20 21:58 Zanaflex 4 Mg PO 02/17/20 14:59 4 mg TID VALERY Administration Discontinued Medications Generic Name Dose Route Start Last Admin Trade Name Yordan PRN Reason Stop Dose Admin Acetaminophen 1,000 mg 01/18/20 09:44 01/18/20 09:47 Tylenol Extra Strength 500 Mg PO 01/18/20 09:45 1,000 mg STAT STA Administration Acetaminophen Confirm 01/18/20 09:46 Tylenol Extra Strength 500 Mg Administered 01/18/20 09:47 Dose 1,000 mg .ROUTE .STK-MED ONE Acetaminophen Confirm 01/18/20 19:00 Tylenol 325 Mg Administered 01/18/20 19:01 Dose 650 mg .ROUTE .STK-MED ONE Albuterol/Ipratropium 3 ml 01/18/20 08:28 01/18/20 08:40 Duoneb 0.5-3 Mg/3 Ml Neb IH 01/18/20 08:29 Not Given STAT ONE Cefepime HCl Confirm 01/18/20 09:27 Maxipime 2 Gm Administered 01/18/20 09:28 Dose 2 g .ROUTE .STK-MED ONE Diphenhydramine HCl 25 mg 01/18/20 18:55 01/18/20 19:02 Benadryl 50 Mg/Ml IV 01/18/20 18:56 25 mg 1XONLY ONE Administration Famotidine 20 mg 01/18/20 14:00 01/18/20 13:56 Pepcid 20 Mg Vial IV 02/17/20 13:59 20 mg Q12HT VALERY Administration Sodium Chloride 1,000 mls @ 999 mls/hr 01/18/20 08:26 01/18/20 10:15 Sodium Chloride 0.9% 1000 Ml IV 01/18/20 09:26 Infused .Q1H1M STA Infusion Sodium Chloride Confirm 01/18/20 08:39 Sodium Chloride 0.9% 1000 Ml Administered 01/18/20 08:40 Dose 1,000 mls @ ud .ROUTE .STK-MED ONE Cefepime HCl 2 g/ Sodium 100 mls @ 200 mls/hr 01/18/20 08:58 01/18/20 09:38 Chloride IV 01/18/20 09:27 200 mls/hr STAT STA Administration Sodium Chloride Confirm 01/18/20 09:28 Sodium Chloride 0.9% 100 Ml Ivpb Administered 01/18/20 09:29 Dose 100 mls @ ud IV .STK-MED ONE Sodium Chloride Confirm 01/18/20 23:31 Sodium Chloride 0.9% 500 Ml Administered 01/18/20 23:32 Dose 500 mls @ ud IV .STK-MED ONE Methylprednisolone Sodium Succinate 125 mg 01/18/20 18:55 01/18/20 19:02 Solu-Medrol 125 Mg IV 01/18/20 18:56 125 mg 1XONLY ONE Administration Intake & Output (Last 24 hours) 01/17/20 01/18/20 01/19/20 01/20/20 11:59 11:59 11:59 11:59 Intake Total 3071 4124 Output Total 400 2150 Balance 2671 1974 Weight 160 kg 76.1 kg 76.1 kg Laboratory Results (Last 24 hours) 01/19/20 01/19/20 01/19/20 18:20 18:20 14:34 Hgb 8.8 L D Hct 28.3 L Segmented Neutrophils Band Neutrophils Lymphocytes (Manual) Hypochromia Platelet Estimate RBC Morphology Crossmatch COMPATIBLE COMPATIBLE 01/19/20 04:30 Hgb Hct Segmented Neutrophils 81 H Band Neutrophils 15 H Lymphocytes (Manual) 4 L Hypochromia 1+ Platelet Estimate NORMAL RBC Morphology ABNORMAL Crossmatch Orders (Last 24 hours) Category Date Time Status CHEST W/WO CONTRAST [CT] Urgent Exams 01/20/20 07:16 Ordered BLOOD COMPONENT REQUEST Stat Lab 01/19/20 18:20 Completed CBC Routine Lab 01/20/20 08:00 Ordered CMP Routine Lab 01/20/20 08:00 Ordered HEMOGLOBIN AND HEMATOCRIT Routine Lab 01/19/20 14:34 Completed Vancomycin, Trough Urgent Lab 01/22/20 08:30 Ordered Quetiapine Fumarate 100 mg [Seroquel 100 MG] Med 01/19/20 10:00 Active 200 mg PO QAM Therapuetic Drug Level Monitor [Trough Drug Levels] Med 01/22/20 08:30 Once 1 IJ 1XONLY ONE Patient Care Notes (Last 24 hours) 01/19/20 14:18 Case Management Note by Anabela Brown AFTER TRYING TO GET MULTIPLE AGENCIES TO SEE PATIENT AND TRYING TO DECIDE WHICH TO TRY NEXT PATIENT VOICED SHE REALLY DID NOT ANYONE COMING IN HER HOUSE D/T COVID CONCERNS. WILL HOLD OFF ON HHC AT THIS TIME. CAN SET UP AFTER DC IF STILL NEEDED WHEN FOLLOW UP PHONE CALL IS COMPLETE Initialized on 01/19/20 14:18 - END OF NOTE 01/19/20 13:59 Case Management Note by Anabela Brown [facility]- UNABLE TO ACCEPT PATIENT D/T THEY DO NOT SERVICE [facility] Initialized on 01/19/20 13:59 - END OF NOTE 01/19/20 13:15 Nursing Note by Niki Reynoso Second unit of PRBC infused without any signs of reaction. Initialized on 01/19/20 13:15 - END OF NOTE 01/19/20 12:14 Case Management Note by Anabela Brown REFERRAL FAXED TO [facility] AT THIS TIME Initialized on 01/19/20 12:14 - END OF NOTE 01/19/20 11:36 Nursing Note by Niki Reynoso Second unit of PRBC started after unit was verified with two RN's blood tubing changed between units. Nurse sat with pt for the first 15min of transfusion no signs of a reaction at this time. Initialized on 01/19/20 11:36 - END OF NOTE 01/19/20 09:10 Nursing Note by Niki Reynoso consent for blood confirmed in chart Initialized on 01/19/20 09:10 - END OF NOTE 01/19/20 09:09 Nursing Note by Niki Reynoso pt given verbal and written education on sepsis, blood transfusion and pneumonia Initialized on 01/19/20 09:09 - END OF NOTE Code(s): J18.9 - PNEUMONIA, UNSPECIFIED ORGANISM; Y95 - NOSOCOMIAL CONDITION (2) Sepsis due to pneumonia Current Visit: Yes Status: Acute Code(s): J18.9 - PNEUMONIA, UNSPECIFIED ORGANISM; A41.9 - SEPSIS, UNSPECIFIED ORGANISM (3) COPD with acute exacerbation Current Visit: No Status: Acute Code(s): J44.1 - CHRONIC OBSTRUCTIVE PULMONARY DISEASE W (ACUTE) EXACERBATION (4) Normocytic anemia Current Visit: No Status: Acute Code(s): D64.9 - ANEMIA, UNSPECIFIED
[2020-01-20 08:43] LABS: Hematocrit 28.7 % (35-47); Hemoglobin 8.9 gm/dl (12.0-16.0); Mean Cell Volume 80.4 fl (78-100); Mean Corpuscular Hemoglobin 24.9 pg (26-32); Mean Platelet Volume 9.9 fl (7.5-11.0); Platelet Count 403 K/mm3 (150-450); Red Blood Count 3.57 M/mm3 (4.1-5.4); Red Cell Distribution Width 19.1 % (11.5-14.0)
[2020-01-20] MEDS: VANCOMYCIN 1 GRAM/200 ML BAG 1 GM/200 ML PIGGYBACK IV SCH (09:24)
[2020-01-20] MEDS: THERAGRAN MULTIVITAMIN PO SCH (10:32)
[2020-01-20] MEDS: SYNTHROID 25 MCG PO SCH (10:32)
[2020-01-20] MEDS: Seroquel 100 MG PO SCH (10:32)
[2020-01-20] MEDS: Neurontin 400 MG PO SCH ×3 (10:32→21:42)
[2020-01-20] MEDS: Zanaflex 4 MG PO SCH ×2 (10:32→15:58)
[2020-01-20] MEDS: KLONOPIN PO SCH (10:33)
[2020-01-20] MEDS: ZOLOFT 50 MG TABLET PO SCH (10:33)
[2020-01-20] MEDS: Imdur 30 MG PO SCH (10:34)
[2020-01-20] MEDS: ENOXAPARIN SODIUM SQ SCH (10:36)
[2020-01-20] MEDS: MARY'S MOUTHWASH PO SCH ×4 (10:40→22:16)
[2020-01-20] MEDS: Pepcid 20 MG PO SCH ×2 (10:53→21:42)
[2020-01-20 11:11] LABS: ALBUMIN 2.6 g/dL (3.5-5.0); ALKALINE PHOSPHATASE 76 U/L (38-126); ANION GAP 10.3 MEQ/L (5-15); BLOOD UREA NITROGEN 20 mg/dL (7-17); CHLORIDE 112 mmol/L (98-107); Calcium 8.2 mg/dL (8.4-10.2); Carbon Dioxide 23 mmol/L (22-30); Creatinine 1 0.66 mg/dL (0.52-1.04); EST GLOMERULAR FILTRATION RATE > 60.0 ML/MIN; Glucose 73 mg/dL (74-106); Potassium 4.1 mmol/L (3.5-5.1); SGOT/AST 25 U/L (14-36); SGPT/ALT 24 U/L (0-35); SODIUM 140 mmol/L (137-145); Total Protein 5.3 g/dL (6.3-8.2)
[2020-01-20] MEDS: Maxipime 2 GM** 2 G in Dextrose 5%/Water IV Soln. 100ML PLUS BAG 100 ML IV SCH ×2 (11:53→21:41)
[2020-01-20] MEDS: solu-MEDROL 125 MG IV SCH ×2 (11:53→21:42)
[2020-01-20] MEDS: TYLENOL 325 MG PO PRN ×2 (13:12→17:13)
[2020-01-20 14:49] LABS: A-aADO2 103; ABG HEMOGLOBIN 9.8; ABG POTASSIUM 3.5 (3.5-5.1); ABG SITE LEFT BRACHIAL; ARTERIAL BLOOD GAS BASE EXCESS -3.8 (-2.0-2.0); ARTERIAL BLOOD GAS FIO2 32 %; ARTERIAL BLOOD GAS PCO2 35 mmHg (35-45); ARTERIAL BLOOD GAS PO2 81 mmHg (75-100); ARTERIAL BLOOD GAS pH 7.38 (7.35-7.45); CARBOXYHEMOGLOBIN 0.6 % THgb (0.0-6.9); HCO3- 20.7 (22-28); HGB O2 SAT 96.3 g/dF (94-100); Methhemoglobin 0.1 % (1.4-1.5); paO2 pAO1 0.44
[2020-01-20] MEDS: DELTASONE 10 MG PO SCH (15:57)
--- NOTE | 2020-01-20 18:22 | XRAY ---
Indication: Right lung mass. Multiple contiguous axial images obtained through the chest prior to and following 100 cc Isovue 370 contrast as ordered. Comparison: CT PE study February 23, 2016. Right upper lobe demonstrates new diffuse interstitial alveolar opacities with posterior consolidation. Right middle and right lower lobe demonstrates new patchy airspace opacities with a few right lower lobe consolidations. New small right and tiny left effusion. Left lung demonstrates lingula/left base subsegmental atelectasis/scarring. Remaining lungs demonstrates mild emphysema. Heart is not enlarged. Aorta is normal in course and caliber. Small mediastinal and right hilar calcified nodes. No pathologic mediastinal/hilar lymphadenopathy. Stable moderate-sized hiatal hernia. Bony thorax intact. Limited upper abdomen including adrenal glands are unremarkable. Impression: 1. New multifocal right lung airspace disease greatest in the upper lobe appearing organizing/consolidated. 2. New small right and tiny left effusion. 3. Incidental pulmonary emphysema, hiatal hernia, and old granulomatous disease. Comment: Preliminary interpretation was made by [facility]. No critical discrepancy.
[2020-01-21] MEDS: DUONEB 0.5-3 MG/3 ml Neb IH PRN (00:59)
[2020-01-21] MEDS ORDERED: KLONOPIN PO ONE (03:13)
[2020-01-21] MEDS: DUONEB 0.5-3 MG/3 ml Neb IH SCH ×6 (05:11→22:05)
[2020-01-21] MEDS: solu-MEDROL 125 MG IV SCH ×3 (06:30→20:34)
[2020-01-21 07:46] LABS: Hematocrit 28.3 % (35-47); Mean Cell Volume 80.2 fl (78-100); Mean Corpuscular Hemoglobin 25.5 pg (26-32); Mean Corpuscular Hgb Concent. 31.8 g/dl (32-36); Mean Platelet Volume 9.9 fl (7.5-11.0); Platelet Count 442 K/mm3 (150-450); Red Blood Count 3.53 M/mm3 (4.1-5.4); Red Cell Distribution Width 19.6 % (11.5-14.0)
[2020-01-21] MEDS: TYLENOL 325 MG PO PRN ×2 (08:19→18:44)
[2020-01-21 08:47] LABS: ALBUMIN 2.7 g/dL (3.5-5.0); ALKALINE PHOSPHATASE 84 U/L (38-126); ANION GAP 8.9 MEQ/L (5-15); BLOOD UREA NITROGEN 12 mg/dL (7-17); CHLORIDE 108 mmol/L (98-107); Calcium 8.1 mg/dL (8.4-10.2); Carbon Dioxide 27 mmol/L (22-30); Creatinine 1 0.57 mg/dL (0.52-1.04); EST GLOMERULAR FILTRATION RATE > 60.0 ML/MIN; Glucose 97 mg/dL (74-106); Potassium 4.1 mmol/L (3.5-5.1); SGOT/AST 30 U/L (14-36); SGPT/ALT 36 U/L (0-35); SODIUM 141 mmol/L (137-145); Total Protein 5.4 g/dL (6.3-8.2)
[2020-01-21] MEDS: VANCOMYCIN 1 GRAM/200 ML BAG 1 GM/200 ML PIGGYBACK IV SCH (09:01)
[2020-01-21] MEDS: SYNTHROID 25 MCG PO SCH (09:45)
[2020-01-21] MEDS: Imdur 30 MG PO SCH (09:45)
[2020-01-21] MEDS: Neurontin 400 MG PO SCH ×3 (09:45→20:37)
[2020-01-21] MEDS: Pepcid 20 MG PO SCH ×2 (09:45→20:35)
[2020-01-21] MEDS: Seroquel 100 MG PO SCH ×2 (09:45→20:36)
[2020-01-21] MEDS: THERAGRAN MULTIVITAMIN PO SCH (09:45)
[2020-01-21] MEDS: ZOLOFT 50 MG TABLET PO SCH (09:45)
[2020-01-21] MEDS: KLONOPIN PO SCH ×3 (09:45→20:35)
[2020-01-21] MEDS: ENOXAPARIN SODIUM SQ SCH (09:54)
--- NOTE | 2020-01-21 10:02 | PCM.NOTE ---
Date and Time: 01/21/20 1001 Subjective Assessment: doing better - Review of Systems Constitutional: No Fever, No Chills Eyes: No Symptoms Ears, Nose, & Throat: No Symptoms Respiratory: Cough, Orthopnea, Short Of Breath, Wheezing Cardiac: No Chest Pain, No Edema, No Syncope Abdominal/Gastrointestinal: No Abdominal Pain, No Nausea, No Vomiting, No Diarrhea Genitourinary Symptoms: No Dysuria Musculoskeletal: No Back Pain, No Neck Pain Skin: No Rash Neurological: No Dizziness, No Focal Weakness, No Sensory Changes Psychological: No Symptoms Endocrine: No Symptoms Hematologic/Lymphatic: No Symptoms Immunological/Allergic: No Symptoms Objective Exam General Appearance: no apparent distress, alert Neurologic Exam: alert, oriented x 3, cooperative, normal mood/affect, nml cerebellar function, sensation nml, No motor deficits Skin Exam: normal color, warm, dry Eye Exam: PERRL, EOMI, eyes nml inspection Ears, Nose, Throat Exam: normal ENT inspection, pharynx normal, moist mucous membranes Neck Exam: normal inspection, non-tender, supple, full range of motion Respiratory Exam: diminished breath sounds, crackles/rales, rhonchi, wheezing, No respiratory distress Cardiovascular Exam: regular rate/rhythm, normal heart sounds Gastrointestinal/Abdomen Exam: soft, No tenderness, No mass Extremity Exam: normal inspection, normal range of motion Back Exam: normal inspection, normal range of motion, No CVA tenderness, No vertebral tenderness Pelvic Exam: deferred Rectal Exam: deferred OBJECTIVE DATA Vital Signs: Vital Signs - 24 hr Temp Pulse Resp BP BP Pulse Ox 01/21/20 08:00 99.5 F 99 H 28 H 157/75 94 L 01/21/20 05:31 84 30 H 98 01/21/20 04:00 98.4 F 87 32 H 157/75 98 01/21/20 00:59 94 H 28 H 95 01/21/20 00:01 83 01/21/20 00:00 98.9 F 83 30 H 157/84 97 01/20/20 22:26 87 24 95 01/20/20 20:00 99.8 F 93 H 25 H 141/76 96 01/20/20 17:48 100 H 20 97 01/20/20 16:00 100.2 F 103 H 18 142/78 96 01/20/20 14:10 101 H 24 98 01/20/20 12:00 99.5 F 97 H 01/20/20 11:14 108 H 20 98 Pain Assessment - Last Documented Pain Intensity 5 Pain Scale Used 0-10 Pain Scale Intake and Output: Intake & Output 01/18/20 01/19/20 01/20/20 01/21/20 11:59 11:59 11:59 11:59 Intake Total 3071 4124 3571 Output Total 400 2150 1800 Balance 2671 1974 1771 Weight 160 kg 76.1 kg 79.1 kg 84.7 kg Lab Results: Lab Results-Last 24 Hours 01/20/20 01/20/20 01/21/20 Range/Units 08:15 14:40 07:05 WBC 22.0 H (4.0-10.5) K/mm3 RBC 3.53 L (4.1-5.4) M/mm3 Hgb 9.0 L (12.0-16.0) gm/dl Hct 28.3 L (35-47) % MCV 80.2 (78-100) fl MCH 25.5 L (26-32) pg MCHC 31.8 L (32-36) g/dl RDW 19.6 H (11.5-14.0) % Plt Count 442 (150-450) K/mm3 MPV 9.9 (7.5-11.0) fl Puncture Site LEFT BRACHIAL pCO2 35 (35-45) mmHg pO2 81 (75-100) mmHg Base Excess -3.8 L (-2.0-2.0) O2 Saturation 96.3 (94-100) g/dF ABG pH 7.38 (7.35-7.45) ABG HCO3 20.7 L (22-28) ABG O2 Sat (Measured) 97.0 (95-100) % Get Test NOT APPLICABLE A-a Gradient 103 a/A Ratio 0.44 Hemoglobin 9.8 Carboxyhemoglobin 0.6 (0.0-6.9) % THgb Methemoglobin 0.1 L (1.4-1.5) % Temperature 37.0 C POC O2 Flow Rate 32 % Sodium 140 D (137-145) mmol/L Potassium 4.1 3.5 (3.5-5.1) mmol/L Chloride 112 H (98-107) mmol/L Carbon Dioxide 23 (22-30) mmol/L Anion Gap 10.3 (5-15) MEQ/L BUN 20 H (7-17) mg/dL Creatinine 0.66 (0.52-1.04) mg/dL Estimated GFR > 60.0 ML/MIN Glucose 73 L (74-106) mg/dL Calcium 8.2 L (8.4-10.2) mg/dL Total Bilirubin 0.30 (0.2-1.3) mg/dL AST 25 (14-36) U/L ALT 24 (0-35) U/L Alkaline Phosphatase 76 (38-126) U/L Serum Total Protein 5.3 L (6.3-8.2) g/dL Albumin 2.6 L (3.5-5.0) g/dL 01/21/20 Range/Units 07:05 WBC (4.0-10.5) K/mm3 RBC (4.1-5.4) M/mm3 Hgb (12.0-16.0) gm/dl Hct (35-47) % MCV (78-100) fl MCH (26-32) pg MCHC (32-36) g/dl RDW (11.5-14.0) % Plt Count (150-450) K/mm3 MPV (7.5-11.0) fl Puncture Site pCO2 (35-45) mmHg pO2 (75-100) mmHg Base Excess (-2.0-2.0) O2 Saturation (94-100) g/dF ABG pH (7.35-7.45) ABG HCO3 (22-28) ABG O2 Sat (Measured) (95-100) % Get Test A-a Gradient a/A Ratio Hemoglobin Carboxyhemoglobin (0.0-6.9) % THgb Methemoglobin (1.4-1.5) % Temperature C POC O2 Flow Rate % Sodium 141 (137-145) mmol/L Potassium 4.1 (3.5-5.1) mmol/L Chloride 108 H (98-107) mmol/L Carbon Dioxide 27 (22-30) mmol/L Anion Gap 8.9 (5-15) MEQ/L BUN 12 (7-17) mg/dL Creatinine 0.57 (0.52-1.04) mg/dL Estimated GFR > 60.0 ML/MIN Glucose 97 (74-106) mg/dL Calcium 8.1 L (8.4-10.2) mg/dL Total Bilirubin 0.30 (0.2-1.3) mg/dL AST 30 (14-36) U/L ALT 36 H (0-35) U/L Alkaline Phosphatase 84 (38-126) U/L Serum Total Protein 5.4 L (6.3-8.2) g/dL Albumin 2.7 L (3.5-5.0) g/dL Radiology Exams: Radiology Procedures Category Date Time Status CHEST W/WO CONTRAST [CT] Urgent Exams 01/20/20 07:16 Completed Assessment/Plan (1) HAP (hospital-acquired pneumonia) Current Visit: Yes Status: Acute Assessment & Plan: Chief Complaint Diagnosis c/o short of breath for 3-4 days Allergies Allergy/AdvReac Type Severity Reaction Status Date / Time morphine Allergy Severe Fainting Verified 01/18/20 08:34 oxycodone Allergy Shortness Verified 01/18/20 08:34 of Breath Penicillins Allergy Verified 01/18/20 08:34 [place] AdvReac Intermediate Headache Verified 01/18/20 08:34 omeprazole AdvReac Intermediate Stomach Verified 01/18/20 13:01 Pain bupropion HCl AdvReac Mild Hives Verified 01/18/20 08:34 [From Wellbutrin] Vital Signs (Last 24 hours) Temp Pulse Resp BP BP Pulse Ox 01/21/20 08:00 99.5 F 99 H 28 H 157/75 94 L 01/21/20 05:31 84 30 H 98 01/21/20 04:00 98.4 F 87 32 H 157/75 98 01/21/20 00:59 94 H 28 H 95 01/21/20 00:01 83 01/21/20 00:00 98.9 F 83 30 H 157/84 97 01/20/20 22:26 87 24 95 01/20/20 20:00 99.8 F 93 H 25 H 141/76 96 01/20/20 17:48 100 H 20 97 01/20/20 16:00 100.2 F 103 H 18 142/78 96 01/20/20 14:10 101 H 24 98 01/20/20 12:00 99.5 F 97 H 01/20/20 11:14 108 H 20 98 Home Medications Medication Instructions Recorded Confirmed Last Taken Type Prednisone 10 mg [Deltasone 10 10 mg PO DAILY 01/18/20 01/18/20 Unknown History mg] Current Medications Generic Name Dose Route Start Last Admin Trade Name Freq PRN Reason Stop Dose Admin Acetaminophen 650 mg 01/18/20 10:09 01/21/20 08:19 Tylenol 325 Mg PO 02/17/20 10:08 650 mg Q4H PRN PRN Administration PAIN AND/OR FEVER Albuterol Sulfate 2 puff 01/18/20 15:04 Ventolin Common Canister IH 02/17/20 15:03 Q4HPRN PRN SHORTNESS OF BREATH Albuterol/Ipratropium 3 ml 01/18/20 10:09 01/21/20 00:59 Duoneb 0.5-3 Mg/3 Ml Neb 02/17/20 10:08 3 ml Q4HPRN PRN Administration SHORTNESS OF BREATH/WHEEZING Albuterol/Ipratropium 3 ml 01/18/20 15:00 01/21/20 05:31 Duoneb 0.5-3 Mg/3 Ml Neb 02/17/20 14:59 3 ml Q4HRT VALERY Administration Clonazepam 2 mg 01/18/20 15:00 01/21/20 09:45 Klonopin PO 02/17/20 14:59 2 mg TID VALERY Administration Device 1 01/22/20 08:30 Trough Drug Levels IJ 01/22/20 08:31 1XONLY ONE Diphenhydramine/Hydrocorti/Nystatin 10 ml 01/18/20 17:35 01/20/20 22:16 Tamara's Mouthwash PO 02/17/20 17:34 Not Given QID VALERY Enoxaparin Sodium 40 mg 01/18/20 14:00 01/21/20 09:54 Enoxaparin Sodium SQ 02/17/20 13:59 40 mg DAILY VALERY Administration Famotidine 40 mg 01/18/20 22:00 01/21/20 09:45 Pepcid 20 Mg PO 02/17/20 21:59 40 mg BID VALERY Administration Gabapentin 800 mg 01/18/20 15:00 01/21/20 09:45 Neurontin 400 Mg PO 02/17/20 14:59 800 mg TID VALEYR Administration Vancomycin HCl 1 gm in 200 mls @ 125 mls/hr 01/18/20 09:00 01/21/20 09:01 Vancomycin 1 Gram/200 Ml Bag IV 02/17/20 08:59 125 mls/hr Q24H VALERY 125 mls/hr Administration Cefepime HCl 2 g/ Dextrose 100 mls @ 200 mls/hr 01/18/20 22:00 01/20/20 21:41 IV 02/17/20 21:59 200 mls/hr Q12HT VALERY Administration Isosorbide Mononitrate 30 mg 01/18/20 16:00 01/21/20 09:45 Imdur 30 Mg PO 02/17/20 15:59 30 mg DAILY VALERY Administration Levothyroxine Sodium 25 mcg 01/18/20 16:00 01/21/20 09:45 Synthroid 25 Mcg PO 02/17/20 15:59 25 mcg DAILY VALERY Administration Methylprednisolone Sodium Succinate 60 mg 01/20/20 12:00 01/21/20 06:30 Solu-Medrol 125 Mg IV 02/19/20 11:59 60 mg Q8HT VALERY Administration Multivitamins Therapeutic 1 tab 01/18/20 16:00 01/21/20 09:45 Theragran Multivitamin PO 02/17/20 15:59 1 tab DAILY VALERY Administration Nitroglycerin 0.4 mg 01/18/20 15:04 Nitrostat 0.4 Mg Tablet SL 02/17/20 15:03 UD PRN CHEST PAIN Quetiapine Fumarate 200 mg 01/19/20 10:00 01/21/20 09:45 Seroquel 100 Mg PO 02/18/20 09:59 200 mg QAM VALERY Administration Quetiapine Fumarate 300 mg 01/18/20 22:00 01/19/20 21:58 Seroquel 100 Mg PO 02/17/20 21:59 300 mg QHS VALERY Administration Fluticasone/Salmeterol 2 puff 01/18/20 19:00 01/20/20 17:46 Advair Hfa 115/21 Common Canister* IH 02/17/20 18:59 2 puff BIDRT VALERY Administration Sertraline HCl 200 mg 01/18/20 16:00 01/21/20 09:45 Zoloft 50 Mg Tablet PO 02/17/20 15:59 200 mg DAILY VALERY Administration Discontinued Medications Generic Name Dose Route Start Last Admin Trade Name Yordan PRN Reason Stop Dose Admin Acetaminophen 1,000 mg 01/18/20 09:44 01/18/20 09:47 Tylenol Extra Strength 500 Mg PO 01/18/20 09:45 1,000 mg STAT STA Administration Acetaminophen Confirm 01/18/20 09:46 Tylenol Extra Strength 500 Mg Administered 01/18/20 09:47 Dose 1,000 mg .ROUTE .STK-MED ONE Acetaminophen Confirm 01/18/20 19:00 Tylenol 325 Mg Administered 01/18/20 19:01 Dose 650 mg .ROUTE .STK-MED ONE Albuterol/Ipratropium 3 ml 01/18/20 08:28 01/18/20 08:40 Duoneb 0.5-3 Mg/3 Ml Neb IH 01/18/20 08:29 Not Given STAT ONE Carisoprodol 350 mg 01/18/20 22:00 01/19/20 21:59 Soma 350 Mg PO 02/17/20 21:59 350 mg HS VALERY Administration Cefepime HCl Confirm 01/18/20 09:27 Maxipime 2 Gm Administered 01/18/20 09:28 Dose 2 g .ROUTE .STK-MED ONE Clonazepam 2 mg 01/21/20 03:13 01/21/20 03:20 Klonopin PO 01/21/20 03:14 2 mg ONCE ONE Administration Diphenhydramine HCl 25 mg 01/18/20 18:55 01/18/20 19:02 Benadryl 50 Mg/Ml IV 01/18/20 18:56 25 mg 1XONLY ONE Administration Famotidine 20 mg 01/18/20 14:00 01/18/20 13:56 Pepcid 20 Mg Vial IV 02/17/20 13:59 20 mg Q12HT VALERY Administration Sodium Chloride 1,000 mls @ 999 mls/hr 01/18/20 08:26 01/18/20 10:15 Sodium Chloride 0.9% 1000 Ml IV 01/18/20 09:26 Infused .Q1H1M STA Infusion Sodium Chloride Confirm 01/18/20 08:39 Sodium Chloride 0.9% 1000 Ml Administered 01/18/20 08:40 Dose 1,000 mls @ ud .ROUTE .STK-MED ONE Cefepime HCl 2 g/ Sodium 100 mls @ 200 mls/hr 01/18/20 08:58 01/18/20 09:38 Chloride IV 01/18/20 09:27 200 mls/hr STAT STA Administration Sodium Chloride Confirm 01/18/20 09:28 Sodium Chloride 0.9% 100 Ml Ivpb Administered 01/18/20 09:29 Dose 100 mls @ ud IV .STK-MED ONE Sodium Chloride 1,000 mls @ 150 mls/hr 01/18/20 10:15 01/20/20 19:54 Sodium Chloride 0.9% 1000 Ml IV 02/17/20 10:14 100 mls/hr .Q6H40M VALERY Administration Norepinephrine 4,000 mcg/ 504 mls @ 37.8 mls/hr 01/18/20 20:12 01/18/20 20:25 Dextrose IV 02/17/20 20:11 15 mls/hr .[id number] PRN Administration SEVERE HYPOTENSION Protocol 5 MCG/MIN Sodium Chloride Confirm 01/18/20 23:31 Sodium Chloride 0.9% 500 Ml Administered 01/18/20 23:32 Dose 500 mls @ ud IV .STK-MED ONE Methylprednisolone Sodium Succinate 125 mg 01/18/20 18:55 01/18/20 19:02 Solu-Medrol 125 Mg IV 01/18/20 18:56 125 mg 1XONLY ONE Administration Prednisone 10 mg 01/18/20 16:00 01/20/20 15:57 Deltasone 10 Mg PO 02/17/20 15:59 Not Given DAILY VALERY Tizanidine HCl 4 mg 01/18/20 15:00 01/20/20 15:58 Zanaflex 4 Mg PO 02/17/20 14:59 Not Given TID VALERY Intake & Output (Last 24 hours) 01/18/20 01/19/20 01/20/20 01/21/20 11:59 11:59 11:59 11:59 Intake Total 3071 4124 3571 Output Total 400 2150 1800 Balance 2671 1974 1771 Weight 160 kg 76.1 kg 79.1 kg 84.7 kg Microbiology Results (Last 24 hours) 01/18/20 09:00 Blood Blood Culture Gram Stain - Pending 01/18/20 09:00 Blood Blood Culture - Preliminary NO GROWTH TO DATE 01/18/20 09:00 Blood Blood Culture Gram Stain - Pending 01/18/20 09:00 Blood Blood Culture - Preliminary NO GROWTH TO DATE Laboratory Results (Last 24 hours) 01/21/20 01/21/20 01/20/20 07:05 07:05 14:40 WBC 22.0 H RBC 3.53 L Hgb 9.0 L Hct 28.3 L MCV 80.2 MCH 25.5 L MCHC 31.8 L RDW 19.6 H Plt Count 442 MPV 9.9 Puncture Site LEFT BRACHIAL pCO2 35 pO2 81 Base Excess -3.8 L O2 Saturation 96.3 ABG pH 7.38 ABG HCO3 20.7 L ABG O2 Sat (Measured) 97.0 Get Test NOT APPLICABLE A-a Gradient 103 a/A Ratio 0.44 Hemoglobin 9.8 Carboxyhemoglobin 0.6 Methemoglobin 0.1 L Temperature 37.0 POC O2 Flow Rate 32 Sodium 141 Potassium 4.1 3.5 Chloride 108 H Carbon Dioxide 27 Anion Gap 8.9 BUN 12 Creatinine 0.57 Estimated GFR > 60.0 Glucose 97 Calcium 8.1 L Total Bilirubin 0.30 AST 30 ALT 36 H Alkaline Phosphatase 84 Serum Total Protein 5.4 L Albumin 2.7 L 01/20/20 08:15 WBC RBC Hgb Hct MCV MCH MCHC RDW Plt Count MPV Puncture Site pCO2 pO2 Base Excess O2 Saturation ABG pH ABG HCO3 ABG O2 Sat (Measured) Get Test A-a Gradient a/A Ratio Hemoglobin Carboxyhemoglobin Methemoglobin Temperature POC O2 Flow Rate Sodium 140 D Potassium 4.1 Chloride 112 H Carbon Dioxide 23 Anion Gap 10.3 BUN 20 H Creatinine 0.66 Estimated GFR > 60.0 Glucose 73 L Calcium 8.2 L Total Bilirubin 0.30 AST 25 ALT 24 Alkaline Phosphatase 76 Serum Total Protein 5.3 L Albumin 2.6 L Orders (Last 24 hours) Category Date Time Status Discontinue Michele Cath ROUTINE Care 01/20/20 17:58 Active ABG [ARTERIAL BLOOD GASES] Urgent Lab 01/20/20 14:40 Completed CBC Routine Lab 01/21/20 07:05 Completed CBC Routine Lab 01/22/20 04:00 Ordered CMP Routine Lab 01/21/20 07:05 Completed CMP Routine Lab 01/22/20 04:00 Ordered Vancomycin, Trough Urgent Lab 01/22/20 08:30 Ordered Clonazepam [Klonopin] Med 01/21/20 03:13 Discontinued 2 mg PO ONCE ONE Methylprednis Sod Succ 125 mg* [solu-MEDROL 125 MG] Med 01/20/20 12:00 Active 60 mg IV Q8HT Therapuetic Drug Level Monitor [Trough Drug Levels] Med 01/22/20 08:30 Once 1 IJ 1XONLY ONE Patient Care Notes (Last 24 hours) 01/21/20 03:24 Nursing Note by Gail Pineda Pt increased anxiety. Removing Bipap. Lungs noted with wheezes and coarse breath soungs. Rt in room. This nurse called Dr Garrison and reported pt status. Order for Klonopin 2mg x 1 now and to DC IVF's. Pt encouraged to leave Bipap on. Will continue to monitor. Call light in reach. Initialized on 01/21/20 03:24 - END OF NOTE 01/21/20 01:05 Nursing Note by Gail Pineda Pt up to BSC and became sob when returning to bed. Pt lung sounds wheezy throughout with crackles noted in posterior bases. Sats 97 %. Respiration 30. RT in room. Pt receiving resp tx at this time. Pt repositioned for comfort. RT to return pt back on Bipap after tx. Call light in reach. Will continue to monitor. Initialized on 01/21/20 01:05 - END OF NOTE Code(s): J18.9 - PNEUMONIA, UNSPECIFIED ORGANISM; Y95 - NOSOCOMIAL CONDITION (2) Sepsis due to pneumonia Current Visit: Yes Status: Acute Code(s): J18.9 - PNEUMONIA, UNSPECIFIED ORGANISM; A41.9 - SEPSIS, UNSPECIFIED ORGANISM (3) COPD with acute exacerbation Current Visit: No Status: Acute Code(s): J44.1 - CHRONIC OBSTRUCTIVE PULMONARY DISEASE W (ACUTE) EXACERBATION (4) Normocytic anemia Current Visit: No Status: Acute Code(s): D64.9 - ANEMIA, UNSPECIFIED
[2020-01-21] MEDS: Advair Hfa 115/21 Common canister IH SCH ×2 (10:14→18:31)
[2020-01-21] MEDS: MARY'S MOUTHWASH PO SCH ×4 (10:43→20:35)
[2020-01-21] MEDS: Maxipime 2 GM** 2 G in Dextrose 5%/Water IV Soln. 100ML PLUS BAG 100 ML IV SCH ×2 (11:51→20:34)
[2020-01-22] MEDS: DUONEB 0.5-3 MG/3 ml Neb IH SCH ×6 (04:57→23:40)
[2020-01-22 04:58] LABS: Hematocrit 29.3 % (35-47); Hemoglobin 9.1 gm/dl (12.0-16.0); Mean Cell Volume 80.1 fl (78-100); Mean Corpuscular Hemoglobin 24.9 pg (26-32); Mean Corpuscular Hgb Concent. 31.1 g/dl (32-36); Mean Platelet Volume 9.5 fl (7.5-11.0); Platelet Count 467 K/mm3 (150-450); Red Blood Count 3.66 M/mm3 (4.1-5.4); Red Cell Distribution Width 20.2 % (11.5-14.0); White Blood Count 20.2 K/mm3 (4.0-10.5)
[2020-01-22] MEDS: solu-MEDROL 125 MG IV SCH ×3 (05:43→21:10)
[2020-01-22 06:04] LABS: ALBUMIN 2.9 g/dL (3.5-5.0); ALKALINE PHOSPHATASE 87 U/L (38-126); ANION GAP 5.1 MEQ/L (5-15); BLOOD UREA NITROGEN 11 mg/dL (7-17); CHLORIDE 106 mmol/L (98-107); Calcium 8.3 mg/dL (8.4-10.2); Carbon Dioxide 31 mmol/L (22-30); Creatinine 1 0.54 mg/dL (0.52-1.04); EST GLOMERULAR FILTRATION RATE > 60.0 ML/MIN; Glucose 124 mg/dL (74-106); Potassium 3.9 mmol/L (3.5-5.1); SGOT/AST 25 U/L (14-36); SGPT/ALT 37 U/L (0-35); SODIUM 138 mmol/L (137-145); Total Protein 5.9 g/dL (6.3-8.2)
[2020-01-22] MEDS: Advair Hfa 115/21 Common canister IH SCH ×2 (07:41→19:26)
[2020-01-22] MEDS ORDERED: TROUGH DRUG LEVELS IJ ONE (08:30)
[2020-01-22] MEDS: VANCOMYCIN 1 GRAM/200 ML BAG 1 GM/200 ML PIGGYBACK IV SCH (10:05)
[2020-01-22] MEDS: ENOXAPARIN SODIUM SQ SCH (10:13)
[2020-01-22] MEDS: Pepcid 20 MG PO SCH ×2 (10:14→21:10)
[2020-01-22] MEDS: KLONOPIN PO SCH ×3 (10:14→21:16)
[2020-01-22] MEDS: Neurontin 400 MG PO SCH ×3 (10:15→21:10)
[2020-01-22] MEDS: Imdur 30 MG PO SCH (10:15)
[2020-01-22] MEDS: THERAGRAN MULTIVITAMIN PO SCH (10:15)
[2020-01-22] MEDS: SYNTHROID 25 MCG PO SCH (10:15)
[2020-01-22] MEDS: Seroquel 100 MG PO SCH ×2 (10:16→21:11)
[2020-01-22] MEDS: ZOLOFT 50 MG TABLET PO SCH (10:16)
[2020-01-22] MEDS: TYLENOL 325 MG PO PRN (10:34)
[2020-01-22] MEDS: MARY'S MOUTHWASH PO SCH ×4 (10:40→21:11)
[2020-01-22] MEDS: Maxipime 2 GM** 2 G in Dextrose 5%/Water IV Soln. 100ML PLUS BAG 100 ML IV SCH ×2 (11:19→21:10)
[2020-01-22] MEDS ORDERED: VANCOCIN 500 MG VIAL*** 500 MG in Sodium Chloride 100ML MINI-BAG PLUS 100 ML IV ONE (11:30)
[2020-01-22] MEDS ORDERED: LEVOPHED 4 MG/4 ML 4,000 MCG in Dextrose 5%/Water IV Soln. 500 ML 500 ML IV PRN (15:32)
--- NOTE | 2020-01-22 19:16 | PCM.NOTE ---
Date and Time: 01/22/201914 Subjective Assessment: doing better - Review of Systems Constitutional: No Fever, No Chills Eyes: No Symptoms Ears, Nose, & Throat: No Symptoms Respiratory: Cough, Short Of Breath, Wheezing Cardiac: No Chest Pain, No Edema, No Syncope Abdominal/Gastrointestinal: No Abdominal Pain, No Nausea, No Vomiting, No Diarrhea Genitourinary Symptoms: No Dysuria Musculoskeletal: No Back Pain, No Neck Pain Skin: No Rash Neurological: No Dizziness, No Focal Weakness, No Sensory Changes Psychological: No Symptoms Endocrine: No Symptoms Hematologic/Lymphatic: No Symptoms Immunological/Allergic: No Symptoms Objective Exam General Appearance: no apparent distress, alert Neurologic Exam: alert, oriented x 3, cooperative, normal mood/affect, nml cerebellar function, sensation nml, No motor deficits Skin Exam: normal color, warm, dry Eye Exam: PERRL, EOMI, eyes nml inspection Ears, Nose, Throat Exam: normal ENT inspection, pharynx normal, moist mucous membranes Neck Exam: normal inspection, non-tender, supple, full range of motion Respiratory Exam: crackles/rales, rhonchi, No respiratory distress Cardiovascular Exam: regular rate/rhythm, normal heart sounds Gastrointestinal/Abdomen Exam: soft, No tenderness, No mass Extremity Exam: normal inspection, normal range of motion Back Exam: normal inspection, normal range of motion, No CVA tenderness, No vertebral tenderness Pelvic Exam: deferred Rectal Exam: deferred OBJECTIVE DATA Vital Signs: Vital Signs - 24 hr Temp Pulse Resp BP BP Pulse Ox 01/22/20 16:45 98.5 F 85 18 128/52 100 01/22/20 14:37 97 H 28 H 98 01/22/20 13:00 90 18 137/76 97 01/22/20 10:59 86 30 H 96 01/22/20 10:00 80 22 97 01/22/20 09:01 83 20 97 01/22/20 09:00 98.9 F 103 H 27 H 150/93 97 01/22/20 08:00 72 01/22/20 07:53 84 18 144/88 95 01/22/20 04:00 98.0 F 71 16 152/72 97 01/21/20 23:55 70 01/21/20 23:29 97.8 F 70 19 159/58 157/84 97 01/21/20 22:09 82 23 96 01/21/20 20:00 99 H 01/21/20 19:32 98.2 F 99 H 27 H 133/73 98 Oxygen-Last 24 hours Oxygen Flowrate (L/min)-RT 3 Pain Assessment - Last Documented Pain Intensity 5 Pain Scale Used 0-10 Pain Scale Intake and Output: Intake & Output 01/20/20 01/21/20 01/22/20 01/23/20 11:59 11:59 11:59 11:59 Intake Total 4124 3571 941 Output Total 2150 1800 400 Balance 1974 1771 541 Weight 79.1 kg 84.7 kg 80.6 kg Lab Results: Lab Results-Last 24 Hours 01/21/20 01/22/20 01/22/20 Range/Units 22:22 04:22 04:22 WBC 20.2 H (4.0-10.5) K/mm3 RBC 3.66 L (4.1-5.4) M/mm3 Hgb 9.1 L (12.0-16.0) gm/dl Hct 29.3 L (35-47) % MCV 80.1 (78-100) fl MCH 24.9 L (26-32) pg MCHC 31.1 L (32-36) g/dl RDW 20.2 H (11.5-14.0) % Plt Count 467 H (150-450) K/mm3 MPV 9.5 (7.5-11.0) fl Sodium 138 (137-145) mmol/L Potassium 3.9 (3.5-5.1) mmol/L Chloride 106 (98-107) mmol/L Carbon Dioxide 31 H (22-30) mmol/L Anion Gap 5.1 (5-15) MEQ/L BUN 11 (7-17) mg/dL Creatinine 0.54 (0.52-1.04) mg/dL Estimated GFR > 60.0 ML/MIN Glucose 124 H (74-106) mg/dL POC Glucometer 122 H (74 to 106) mg/dL Calcium 8.3 L (8.4-10.2) mg/dL Total Bilirubin 0.30 (0.2-1.3) mg/dL AST 25 (14-36) U/L ALT 37 H (0-35) U/L Alkaline Phosphatase 87 (38-126) U/L Serum Total Protein 5.9 L (6.3-8.2) g/dL Albumin 2.9 L (3.5-5.0) g/dL Vancomycin Trough (10-20) ug/mL 01/22/20 Range/Units 08:45 WBC (4.0-10.5) K/mm3 RBC (4.1-5.4) M/mm3 Hgb (12.0-16.0) gm/dl Hct (35-47) % MCV (78-100) fl MCH (26-32) pg MCHC (32-36) g/dl RDW (11.5-14.0) % Plt Count (150-450) K/mm3 MPV (7.5-11.0) fl Sodium (137-145) mmol/L Potassium (3.5-5.1) mmol/L Chloride (98-107) mmol/L Carbon Dioxide (22-30) mmol/L Anion Gap (5-15) MEQ/L BUN (7-17) mg/dL Creatinine (0.52-1.04) mg/dL Estimated GFR ML/MIN Glucose (74-106) mg/dL POC Glucometer (74 to 106) mg/dL Calcium (8.4-10.2) mg/dL Total Bilirubin (0.2-1.3) mg/dL AST (14-36) U/L ALT (0-35) U/L Alkaline Phosphatase (38-126) U/L Serum Total Protein (6.3-8.2) g/dL Albumin (3.5-5.0) g/dL Vancomycin Trough < 5.00 L (10-20) ug/mL Radiology Exams: Radiology Procedures Category Date Time Status CHEST 1 VIEW (PORTABLE) Routine Exams 01/23/20 08:00 Ordered CHEST 1 VIEW (PORTABLE) Routine Exams 01/23/20 08:00 Stop Req Multi-Disciplinary Progress Notes: Multi-Disciplinary Progress Notes 01/22/20 10:23 Pharmacy Note by Wenceslao Garnica Pharmacokinetic dosing service Date: 01/22/20 Time: 1030 Objective: Patient: REILLY REED Floor: 129 Age: 64 yo Serum creatinine: 0.54 mg/dL Height: 60 Inches Weight (kg): 80 Diagnosis: SEPSIS Relevant medical/social history: Cultures and sensitivities: NO GROWTH Other labs: WBC = 20.2 SC CR = 0.54 Assessment: IBW (kg): 45.50 Dosing wt(kg): 80 Estimated Creatinine clearance (ml/min): 77.6 CRCL method: Cockcroft and Gault using ibw(default). Drug selected: Vancomycin Loading dose (mg): 0 Vd (liters): 60.0 (factor used: 0.75 L/kg) Sarmad (hr-1): 0.069 Half life (hrs): 10.05 Recommended dose: 1250 mg Interval: 12 hrs Infusion time (hrs): 2.0 Predicted peak (mcg/mL): 34.6 Predicted trough (mcg/mL): 17.35 Total body weight is being used for vancomycin dosing. Renal function is stable [X] /unstable [ ] Recommendations: Give Vancomycin 1250 mg q 12 hrs with an expected Cpeak of 34.6 mcg/ml and an expected Ctrough of 17.35 mcg/ml Renal dosing of other antibiotics (review renal dosing of other medications and list guidelines here): Thank you for the consult, will continue to follow. Signature: Kellie GARNICA WILL GIVE ADDITIONAL 500 MG THIS AM AND START 1250 MG Q12H AT 10PM AMOS Initialized on 01/22/20 10:23 - END OF NOTE 01/22/20 10:14 Case Management Note by Anabela Brown PATIENT STILL ACUTELY ILL BUT CONTINUES TO DENY NEEDS AT TIME OF DC. ACO WILL FOLLOW UP WITH PATIENT ON DC Initialized on 01/22/20 10:14 - END OF NOTE Assessment/Plan (1) HAP (hospital-acquired pneumonia) Current Visit: Yes Status: Acute Assessment & Plan: improving Chief Complaint Diagnosis c/o short of breath for 3-4 days Allergies Allergy/AdvReac Type Severity Reaction Status Date / Time morphine Allergy Severe Fainting Verified 01/18/20 08:34 oxycodone Allergy Shortness Verified 01/18/20 08:34 of Breath Penicillins Allergy Verified 01/18/20 08:34 Coconut AdvReac Intermediate Headache Verified 01/18/20 08:34 omeprazole AdvReac Intermediate Stomach Verified 01/18/20 13:01 Pain bupropion HCl AdvReac Mild Hives Verified 01/18/20 08:34 [From Wellbutrin] Vital Signs (Last 24 hours) Temp Pulse Resp BP BP Pulse Ox 01/22/20 16:45 98.5 F 85 18 128/52 100 01/22/20 14:37 97 H 28 H 98 01/22/20 13:00 90 18 137/76 97 01/22/20 10:59 86 30 H 96 01/22/20 10:00 80 22 97 01/22/20 09:01 83 20 97 01/22/20 09:00 98.9 F 103 H 27 H 150/93 97 01/22/20 08:00 72 01/22/20 07:53 84 18 144/88 95 01/22/20 04:00 98.0 F 71 16 152/72 97 01/21/20 23:55 70 01/21/20 23:29 97.8 F 70 19 159/58 157/84 97 01/21/20 22:09 82 23 96 01/21/20 20:00 99 H 01/21/20 19:32 98.2 F 99 H 27 H 133/73 98 Home Medications Medication Instructions Recorded Confirmed Last Taken Type Prednisone 10 mg [Deltasone 10 10 mg PO DAILY 01/18/20 01/18/20 Unknown History mg] Current Medications Generic Name Dose Route Start Last Admin Trade Name Freq PRN Reason Stop Dose Admin Acetaminophen 650 mg 01/18/20 10:09 01/22/20 10:34 Tylenol 325 Mg PO 02/17/20 10:08 650 mg Q4H PRN PRN Administration PAIN AND/OR FEVER Albuterol Sulfate 2 puff 01/18/20 15:04 Ventolin Common Canister IH 02/17/20 15:03 Q4HPRN PRN SHORTNESS OF BREATH Albuterol/Ipratropium 3 ml 01/18/20 10:09 01/21/20 00:59 Duoneb 0.5-3 Mg/3 Ml Neb IH 02/17/20 10:08 3 ml Q4HPRN PRN Administration SHORTNESS OF BREATH/WHEEZING Albuterol/Ipratropium 3 ml 01/18/20 15:00 01/22/20 14:40 Duoneb 0.5-3 Mg/3 Ml Neb IH 02/17/20 14:59 3 ml Q4HRT VALERY Administration Clonazepam 2 mg 01/18/20 15:00 01/22/20 16:03 Klonopin PO 02/17/20 14:59 Not Given TID VALERY Diphenhydramine/Hydrocorti/Nystatin 10 ml 01/18/20 17:35 01/22/20 18:05 Tamara's Mouthwash PO 02/17/20 17:34 Not Given QID VALERY Enoxaparin Sodium 40 mg 01/18/20 14:00 01/22/20 10:13 Enoxaparin Sodium SQ 02/17/20 13:59 40 mg DAILY VALERY Administration Famotidine 40 mg 01/18/20 22:00 01/22/20 10:14 Pepcid 20 Mg PO 02/17/20 21:59 40 mg BID VALERY Administration Gabapentin 800 mg 01/18/20 15:00 01/22/20 16:03 Neurontin 400 Mg PO 02/17/20 14:59 Not Given TID VALERY Cefepime HCl 2 g/ Dextrose 100 mls @ 200 mls/hr 01/18/20 22:00 01/22/20 11:19 IV 02/17/20 21:59 200 mls/hr Q12HT VALERY Administration Vancomycin HCl 1.25 gm in 250 mls @ 166.667 mls/hr 01/22/20 22:00 Vancomycin 1.25 Gm/250 Ml Bag IV 02/21/20 21:59 Q12HT VALERY Isosorbide Mononitrate 30 mg 01/18/20 16:00 01/22/20 10:15 Imdur 30 Mg PO 02/17/20 15:59 30 mg DAILY VALERY Administration Levothyroxine Sodium 25 mcg 01/18/20 16:00 01/22/20 10:15 Synthroid 25 Mcg PO 02/17/20 15:59 25 mcg DAILY VALERY Administration Methylprednisolone Sodium Succinate 60 mg 01/20/20 12:00 01/22/20 13:47 Solu-Medrol 125 Mg IV 02/19/20 11:59 60 mg Q8HT VALERY Administration Multivitamins Therapeutic 1 tab 01/18/20 16:00 01/22/20 10:15 Theragran Multivitamin PO 02/17/20 15:59 1 tab DAILY VALERY Administration Nitroglycerin 0.4 mg 01/18/20 15:04 Nitrostat 0.4 Mg Tablet SL 02/17/20 15:03 UD PRN CHEST PAIN Quetiapine Fumarate 200 mg 01/19/20 10:00 01/22/20 10:16 Seroquel 100 Mg PO 02/18/20 09:59 200 mg QAM VALERY Administration Quetiapine Fumarate 300 mg 01/18/20 22:00 01/21/20 20:36 Seroquel 100 Mg PO 02/17/20 21:59 300 mg QHS VALERY Administration Fluticasone/Salmeterol 2 puff 01/18/20 19:00 01/22/20 07:41 Advair Hfa 115/21 Common Canister* IH 02/17/20 18:59 2 puff BIDRT VALERY Administration Sertraline HCl 200 mg 01/18/20 16:00 01/22/20 10:16 Zoloft 50 Mg Tablet PO 02/17/20 15:59 200 mg DAILY VALERY Administration Discontinued Medications Generic Name Dose Route Start Last Admin Trade Name Freq PRN Reason Stop Dose Admin Acetaminophen 1,000 mg 01/18/20 09:44 01/18/20 09:47 Tylenol Extra Strength 500 Mg PO 01/18/20 09:45 1,000 mg STAT STA Administration Acetaminophen Confirm 01/18/20 09:46 Tylenol Extra Strength 500 Mg Administered 01/18/20 09:47 Dose 1,000 mg .ROUTE .STK-MED ONE Acetaminophen Confirm 01/18/20 19:00 Tylenol 325 Mg Administered 01/18/20 19:01 Dose 650 mg .ROUTE .STK-MED ONE Albuterol/Ipratropium 3 ml 01/18/20 08:28 01/18/20 08:40 Duoneb 0.5-3 Mg/3 Ml Neb IH 01/18/20 08:29 Not Given STAT ONE Carisoprodol 350 mg 01/18/20 22:00 01/19/20 21:59 Soma 350 Mg PO 02/17/20 21:59 350 mg HS VALERY Administration Cefepime HCl Confirm 01/18/20 09:27 Maxipime 2 Gm Administered 01/18/20 09:28 Dose 2 g .ROUTE .STK-MED ONE Clonazepam 2 mg 01/21/20 03:13 01/21/20 03:20 Klonopin PO 01/21/20 03:14 2 mg ONCE ONE Administration Device 1 01/22/20 08:30 01/22/20 09:00 Trough Drug Levels IJ 01/22/20 08:31 1 1XONLY ONE Administration Diphenhydramine HCl 25 mg 01/18/20 18:55 01/18/20 19:02 Benadryl 50 Mg/Ml IV 01/18/20 18:56 25 mg 1XONLY ONE Administration Famotidine 20 mg 01/18/20 14:00 01/18/20 13:56 Pepcid 20 Mg Vial IV 02/17/20 13:59 20 mg Q12HT VALERY Administration Sodium Chloride 1,000 mls @ 999 mls/hr 01/18/20 08:26 01/18/20 10:15 Sodium Chloride 0.9% 1000 Ml IV 01/18/20 09:26 Infused .Q1H1M STA Infusion Sodium Chloride Confirm 01/18/20 08:39 Sodium Chloride 0.9% 1000 Ml Administered 01/18/20 08:40 Dose 1,000 mls @ ud .ROUTE .STK-MED ONE Cefepime HCl 2 g/ Sodium 100 mls @ 200 mls/hr 01/18/20 08:58 01/18/20 09:38 Chloride IV 01/18/20 09:27 200 mls/hr STAT STA Administration Vancomycin HCl 1 gm in 200 mls @ 125 mls/hr 01/18/20 09:00 01/22/20 10:05 Vancomycin 1 Gram/200 Ml Bag IV 02/17/20 08:59 125 mls/hr Q24H VALERY 125 mls/hr Administration Sodium Chloride Confirm 01/18/20 09:28 Sodium Chloride 0.9% 100 Ml Ivpb Administered 01/18/20 09:29 Dose 100 mls @ ud IV .STK-MED ONE Sodium Chloride 1,000 mls @ 150 mls/hr 01/18/20 10:15 01/20/20 19:54 Sodium Chloride 0.9% 1000 Ml IV 02/17/20 10:14 100 mls/hr .Q6H40M VALERY Administration Norepinephrine 4,000 mcg/ 504 mls @ 37.8 mls/hr 01/18/20 20:12 01/18/20 20:25 Dextrose IV 02/17/20 20:11 15 mls/hr .[id number] PRN Administration SEVERE HYPOTENSION Protocol 5 MCG/MIN Sodium Chloride Confirm 01/18/20 23:31 Sodium Chloride 0.9% 500 Ml Administered 01/18/20 23:32 Dose 500 mls @ ud IV .STK-MED ONE Vancomycin HCl 500 mg/ Sodium 100 mls @ 100 mls/hr 01/22/20 11:30 01/22/20 12:21 Chloride IV 01/22/20 12:29 100 mls/hr ONCE ONE Administration Methylprednisolone Sodium Succinate 125 mg 01/18/20 18:55 01/18/20 19:02 Solu-Medrol 125 Mg IV 01/18/20 18:56 125 mg 1XONLY ONE Administration Prednisone 10 mg 01/18/20 16:00 01/20/20 15:57 Deltasone 10 Mg PO 02/17/20 15:59 Not Given DAILY VAELRY Tizanidine HCl 4 mg 01/18/20 15:00 01/20/20 15:58 Zanaflex 4 Mg PO 02/17/20 14:59 Not Given TID VALERY Intake & Output (Last 24 hours) 01/20/20 01/21/20 01/22/20 01/23/20 11:59 11:59 11:59 11:59 Intake Total 4124 3571 941 Output Total 2150 1800 400 Balance 1974 1771 541 Weight 79.1 kg 84.7 kg 80.6 kg Laboratory Results (Last 24 hours) 01/22/20 01/22/20 01/22/20 08:45 04:22 04:22 WBC 20.2 H RBC 3.66 L Hgb 9.1 L Hct 29.3 L MCV 80.1 MCH 24.9 L MCHC 31.1 L RDW 20.2 H Plt Count 467 H MPV 9.5 Sodium 138 Potassium 3.9 Chloride 106 Carbon Dioxide 31 H Anion Gap 5.1 BUN 11 Creatinine 0.54 Estimated GFR > 60.0 Glucose 124 H POC Glucometer Calcium 8.3 L Total Bilirubin 0.30 AST 25 ALT 37 H Alkaline Phosphatase 87 Serum Total Protein 5.9 L Albumin 2.9 L Vancomycin Trough < 5.00 L 01/21/20 22:22 WBC RBC Hgb Hct MCV MCH MCHC RDW Plt Count MPV Sodium Potassium Chloride Carbon Dioxide Anion Gap BUN Creatinine Estimated GFR Glucose POC Glucometer 122 H Calcium Total Bilirubin AST ALT Alkaline Phosphatase Serum Total Protein Albumin Vancomycin Trough Orders (Last 24 hours) Category Date Time Status CHEST 1 VIEW (PORTABLE) Routine Exams 01/23/20 08:00 Ordered CHEST 1 VIEW (PORTABLE) Routine Exams 01/23/20 08:00 Stop Req CBC Routine Lab 01/22/20 04:22 Completed CBC W DIFF AM.LAB Lab 01/23/20 04:00 Ordered CMP AM.LAB Lab 01/23/20 04:00 Ordered CMP Routine Lab 01/22/20 04:22 Completed POCT GLUCOSE Stat Lab 01/21/20 22:22 Completed Vancomycin, Trough Urgent Lab 01/22/20 08:45 Completed Therapuetic Drug Level Monitor [Trough Drug Levels] Med 01/22/20 08:30 Discontinued 1 IJ 1XONLY ONE Vancomycin HCl 500 mg Inj [Vancocin 500 mg Vial] Med 01/22/20 11:30 Discontinued 500 mg NaCl 0.9% 100 ml Mini-Bag Plus [Sodium Chloride 100ML MINI-BAG PLUS] 100 ml IV ONCE Vancomycin/Water For Inj (Peg) [Vancomycin 1.25 gm/250 Med 01/22/20 22:00 Active ml Bag] 1.25 gm in 250 ml IV Q12HT Flutter Therapy UD RT 01/22/20 14:55 Active Transfer Order Routine Transfer 01/22/20 Completed Patient Care Notes (Last 24 hours) 01/22/20 16:42 Nursing Note by Ammy Young WHILE NAPPING, PT OXYGEN SATURATION REMAINS 95-97% ON 3LNC. HR 80-90 NSR. Initialized on 01/22/20 16:42 - END OF NOTE 01/22/20 10:23 Pharmacy Note by Wenceslao Garnica Pharmacokinetic dosing service Date: 01/22/20 Time: 1030 Objective: Patient: REILLY REED Floor: 129 Age: 64 yo Serum creatinine: 0.54 mg/dL Height: 60 Inches Weight (kg): 80 Diagnosis: SEPSIS Relevant medical/social history: Cultures and sensitivities: NO GROWTH Other labs: WBC = 20.2 SC CR = 0.54 Assessment: IBW (kg): 45.50 Dosing wt(kg): 80 Estimated Creatinine clearance (ml/min): 77.6 CRCL method: Cockcroft and Gault using ibw(default). Drug selected: Vancomycin Loading dose (mg): 0 Vd (liters): 60.0 (factor used: 0.75 L/kg) Sarmad (hr-1): 0.069 Half life (hrs): 10.05 Recommended dose: 1250 mg Interval: 12 hrs Infusion time (hrs): 2.0 Predicted peak (mcg/mL): 34.6 Predicted trough (mcg/mL): 17.35 Total body weight is being used for vancomycin dosing. Renal function is stable [X] /unstable [ ] Recommendations: Give Vancomycin 1250 mg q 12 hrs with an expected Cpeak of 34.6 mcg/ml and an expected Ctrough of 17.35 mcg/ml Renal dosing of other antibiotics (review renal dosing of other medications and list guidelines here): Thank you for the consult, will continue to follow. Signature: Kellie GARNICA WILL GIVE ADDITIONAL 500 MG THIS AM AND START 1250 MG Q12H AT 10PM AMOS Initialized on 01/22/20 10:23 - END OF NOTE 01/22/20 10:14 Case Management Note by Anabela Brown PATIENT STILL ACUTELY ILL BUT CONTINUES TO DENY NEEDS AT TIME OF DC. ACO WILL FOLLOW UP WITH PATIENT ON DC Initialized on 01/22/20 10:14 - END OF NOTE 01/21/20 22:40 Nursing Note by Gail Pineda Pt drowsy/lethargic. Pt put on BIPAP per RT. Pt noted diaphoretic. Pt arouses to name but goes back to sleep. POCT done and was 122. Temp 97.3 axillary, 127/ 59, 25, HR 75 and Sats 96%. Pt had night time meds which have been making pt more drowsy. Pt gown and linens changed. Pt able to sit up and help with gown change. Will cont to monitor. Bed alarm on. Call light in reach. Nurse able to view/monitor pt from nurse station. Initialized on 01/21/20 22:40 - END OF NOTE 01/21/20 19:33 Nursing Note by Jomar Viveros Approx [phone] on 01/21/20 this nurse was in another patient's room changing an IV dressing when another nurse came to the door and stated that the patient in room 129, Reilly Reed, was on the floor. This nurse immediately went to 129 and found the pt sitting on the floor in a puddle of what appeared to be urine. The pt stated that she did not fall but rather sat herself on the floor and was too weak to get up by herself. Pt was assisted up and cleaned up with assistance. No injuries were noted during the assessment. Pt assisted back to bed. Pt's son later called and stated to the upward bound director that he had talked to his mother on her cellphone and that she (the patient) had told him that she didn't fall but that she had gotten weak and went down to the floor. Pt back in bed with bed alarm on. Will continue to monitor. Initialized on 01/21/20 19:33 - END OF NOTE Code(s): J18.9 - PNEUMONIA, UNSPECIFIED ORGANISM; Y95 - NOSOCOMIAL CONDITION (2) Sepsis due to pneumonia Current Visit: Yes Status: Acute Code(s): J18.9 - PNEUMONIA, UNSPECIFIED ORGANISM; A41.9 - SEPSIS, UNSPECIFIED ORGANISM (3) COPD with acute exacerbation Current Visit: No Status: Acute Code(s): J44.1 - CHRONIC OBSTRUCTIVE PULMONARY DISEASE W (ACUTE) EXACERBATION (4) Normocytic anemia Current Visit: No Status: Acute Code(s): D64.9 - ANEMIA, UNSPECIFIED
[2020-01-22] MEDS: VANCOMYCIN 1.25 GM/250 ML BAG 1.25 GM/250 ML PIGGYBACK IV SCH (22:08)
[2020-01-23] MEDS: DUONEB 0.5-3 MG/3 ml Neb IH SCH ×5 (03:40→18:44)
[2020-01-23 05:38] LABS: Hematocrit 30.4 % (35-47); Hemoglobin 9.6 gm/dl (12.0-16.0); Mean Cell Volume 80.4 fl (78-100); Mean Corpuscular Hemoglobin 25.4 pg (26-32); Mean Corpuscular Hgb Concent. 31.6 g/dl (32-36); Mean Platelet Volume 10.1 fl (7.5-11.0); Platelet Count 548 K/mm3 (150-450); Red Blood Count 3.78 M/mm3 (4.1-5.4); Red Cell Distribution Width 20.7 % (11.5-14.0); White Blood Count 22.9 K/mm3 (4.0-10.5)
[2020-01-23] MEDS: solu-MEDROL 125 MG IV SCH ×2 (05:40→13:47)
[2020-01-23 05:49] LABS: ALBUMIN 2.9 g/dL (3.5-5.0); ALKALINE PHOSPHATASE 81 U/L (38-126); ANION GAP 6.7 MEQ/L (5-15); BLOOD UREA NITROGEN 11 mg/dL (7-17); CHLORIDE 101 mmol/L (98-107); Calcium 8.3 mg/dL (8.4-10.2); Carbon Dioxide 34 mmol/L (22-30); Creatinine 1 0.56 mg/dL (0.52-1.04); EST GLOMERULAR FILTRATION RATE > 60.0 ML/MIN; Glucose 140 mg/dL (74-106); Potassium 3.8 mmol/L (3.5-5.1); SGOT/AST 34 U/L (14-36); SGPT/ALT 46 U/L (0-35); SODIUM 138 mmol/L (137-145); Total Protein 5.9 g/dL (6.3-8.2)
[2020-01-23 06:23] LABS: ANISOCYTOSIS 1+; Hypochromia 1+; Lymphocytes 6 % (24-44); Monocyte 4 % (0.0-12.0); Neutrophils 90 % (36.0-66.0); Platelet Estimate INCREASED (NORMAL); Poikilocytosis 1+; Polychromasia 1+; Total Cells Counted 100
[2020-01-23] MEDS: Advair Hfa 115/21 Common canister IH SCH ×2 (08:00→18:46)
--- NOTE | 2020-01-23 08:43 | XRAY ---
Indication: Pneumonia. Comparison: January 18, 2020. Portable chest worsened with now diffuse right lung consolidating airspace disease and new moderate effusion. Also new minimal left base infiltrate/atelectasis and borderline cardiomegaly.
[2020-01-23] MEDS: KLONOPIN PO SCH ×2 (11:16→18:26)
[2020-01-23] MEDS: Neurontin 400 MG PO SCH ×2 (11:16→18:26)
[2020-01-23] MEDS: Imdur 30 MG PO SCH (11:17)
[2020-01-23] MEDS: SYNTHROID 25 MCG PO SCH (11:18)
[2020-01-23] MEDS: Pepcid 20 MG PO SCH (11:18)
[2020-01-23] MEDS: THERAGRAN MULTIVITAMIN PO SCH (11:18)
[2020-01-23] MEDS: ZOLOFT 50 MG TABLET PO SCH (11:18)
[2020-01-23] MEDS: Seroquel 100 MG PO SCH (11:18)
[2020-01-23] MEDS: Maxipime 2 GM** 2 G in Dextrose 5%/Water IV Soln. 100ML PLUS BAG 100 ML IV SCH (11:21)
[2020-01-23] MEDS: ENOXAPARIN SODIUM SQ SCH (11:28)
[2020-01-23] MEDS: MARY'S MOUTHWASH PO SCH ×3 (11:31→18:27)
[2020-01-23] MEDS: VANCOMYCIN 1.25 GM/250 ML BAG 1.25 GM/250 ML PIGGYBACK IV SCH (11:52)
[2020-01-23 18:57] VITALS: PULSE 102; O2SAT 95
[2020-01-23 20:18] VITALS: BP 155/91
[2020-01-24] MEDS ORDERED: TROUGH DRUG LEVELS IJ ONE (09:00)
== END 2020-01-23 18:30 | disposition swing bed (61) | DRG 193 ==
LOC: ED 08:18 → MED SURG 12:45 → ICU 20:10
PROVIDERS: ADMIT General Practice; ATTEND General Practice
DX: J18.9 Pneumonia, unspecified organism (principal); A41.9 Sepsis, unspecified organism; J44.1 Chronic obstructive pulmonary disease with (acute) exacerbation; R06.2 Wheezing; Y95 Nosocomial condition; R06.02 Shortness of breath; Z79.899 Other long term (current) drug therapy; E78.00 Pure hypercholesterolemia, unspecified; E03.9 Hypothyroidism, unspecified; D64.9 Anemia, unspecified
CPT/HCPCS: 36000; 36415; 36430; 36600; 51702; 71045; 71270; 80053; 80202; 81001; 82150; 82375; 82803; 82805; 82947; 83605; 83690; 83735; 83880; 84484; 85014; 85018; 85025; 85027; 85610; 86078; 86850; 86900; 86901; 86922; 87040; 87400; 93005; 94002; 94003; 94640; 94667; 94668; 94760; 94762; 96360; 96365; 96374; 97161; 97530; 99285; 99291; P9016; U0003; J0692; J1200; J1650; J2930; J3370; A9270-GY

== ENCOUNTER 2020-01-23 13:10 | Inpatient (IN) | payer MEDICARE ==
[2020-01-23] MEDS ORDERED: Nitrostat 0.4 MG Tablet SL PRN ×2 (18:50→19:30)
[2020-01-23] MEDS ORDERED: DUONEB 0.5-3 MG/3 ml Neb IH PRN ×2 (18:50→19:30)
[2020-01-23] MEDS ORDERED: VENTOLIN COMMON CANISTER IH PRN ×2 (18:50→19:30)
[2020-01-23] MEDS ORDERED: TYLENOL 325 MG PO PRN ×2 (18:50→19:30)
[2020-01-23] MEDS ORDERED: DUONEB 0.5-3 MG/3 ml Neb IH SCH (19:00)
[2020-01-23] MEDS ORDERED: Advair Hfa 115/21 Common canister IH SCH (19:00)
[2020-01-23] MEDS ORDERED: Pepcid 20 MG PO SCH (22:00)
[2020-01-23] MEDS ORDERED: MARY'S MOUTHWASH PO SCH (22:00)
[2020-01-23] MEDS ORDERED: Seroquel 100 MG PO SCH (22:00)
[2020-01-23] MEDS ORDERED: Neurontin 400 MG PO SCH (22:00)
[2020-01-23] MEDS ORDERED: Maxipime 2 GM** 2 G in Dextrose 5%/Water IV Soln. 100ML PLUS BAG 100 ML IV SCH (22:00)
[2020-01-23] MEDS ORDERED: KLONOPIN PO SCH (22:00)
[2020-01-23] MEDS ORDERED: VANCOMYCIN 1.25 GM/250 ML BAG 1.25 GM/250 ML PIGGYBACK IV SCH (22:00)
[2020-01-23] MEDS: Maxipime 2 GM** 2 G in Dextrose 5%/Water IV Soln. 100ML PLUS BAG 100 ML IV SCH (22:05)
[2020-01-23] MEDS: Pepcid 20 MG PO SCH (22:06)
[2020-01-23] MEDS: Neurontin 400 MG PO SCH (22:06)
[2020-01-23] MEDS: KLONOPIN PO SCH (22:06)
[2020-01-23] MEDS: solu-MEDROL 125 MG IV SCH (22:06)
[2020-01-23] MEDS: Seroquel 100 MG PO SCH (22:07)
[2020-01-23] MEDS: MARY'S MOUTHWASH PO SCH (22:28)
[2020-01-23] MEDS: VANCOMYCIN 1.25 GM/250 ML BAG 1.25 GM/250 ML PIGGYBACK IV SCH (22:40)
[2020-01-23] MEDS: DUONEB 0.5-3 MG/3 ml Neb IH SCH (23:53)
[2020-01-24] MEDS: DUONEB 0.5-3 MG/3 ml Neb IH SCH ×6 (02:55→23:01)
[2020-01-24] MEDS: solu-MEDROL 125 MG IV SCH (05:28)
[2020-01-24] MEDS: Advair Hfa 115/21 Common canister IH SCH ×2 (06:48→18:57)
[2020-01-24] MEDS ORDERED: TROUGH DRUG LEVELS IJ ONE (09:00)
[2020-01-24] MEDS: Pepcid 20 MG PO SCH ×2 (09:41→22:08)
[2020-01-24] MEDS: Seroquel 100 MG PO SCH ×2 (09:42→22:08)
[2020-01-24] MEDS: THERAGRAN MULTIVITAMIN PO SCH (09:42)
[2020-01-24] MEDS: ZOLOFT 50 MG TABLET PO SCH (09:42)
[2020-01-24] MEDS: ENOXAPARIN SODIUM SQ SCH (09:42)
[2020-01-24] MEDS: KLONOPIN PO SCH ×3 (09:42→22:08)
[2020-01-24] MEDS: SYNTHROID 25 MCG PO SCH (09:42)
[2020-01-24] MEDS: Neurontin 400 MG PO SCH ×3 (09:42→22:08)
[2020-01-24] MEDS: Imdur 30 MG PO SCH (09:42)
[2020-01-24] MEDS ORDERED: SYNTHROID 25 MCG PO SCH (10:00)
[2020-01-24] MEDS ORDERED: Imdur 30 MG PO SCH (10:00)
[2020-01-24] MEDS ORDERED: ENOXAPARIN SODIUM SQ SCH (10:00)
[2020-01-24] MEDS ORDERED: Seroquel 100 MG PO SCH (10:00)
[2020-01-24] MEDS ORDERED: THERAGRAN MULTIVITAMIN PO SCH (10:00)
[2020-01-24] MEDS ORDERED: ZOLOFT 50 MG TABLET PO SCH (10:00)
[2020-01-24] MEDS ORDERED: Aplisol ID ONE (10:00)
[2020-01-24] MEDS: Maxipime 2 GM** 2 G in Dextrose 5%/Water IV Soln. 100ML PLUS BAG 100 ML IV SCH (10:11)
[2020-01-24] MEDS: MARY'S MOUTHWASH PO SCH ×4 (10:12→22:04)
[2020-01-24] MEDS: BACTRIM DS TABLET PO SCH ×2 (11:57→12:01)
[2020-01-24] MEDS: DELTASONE 20 MG PO SCH (12:01)
[2020-01-24] MEDS: VANCOMYCIN 1.25 GM/250 ML BAG 1.25 GM/250 ML PIGGYBACK IV SCH ×2 (13:07→18:23)
[2020-01-24] MEDS: LEVOFLOXACIN 750MG/150ML D5W 750 MG/150 ML BAG IV SCH (15:20)
[2020-01-24] MEDS ORDERED: OMNICEF 300 MG PO SCH (22:00)
[2020-01-24] MEDS: Maxipime 2 GM** 2 G in Sodium Chloride 100ML MINI-BAG PLUS 100 ML IV SCH (22:05)
[2020-01-24] MEDS: SOMA 350 MG PO SCH (22:08)
[2020-01-25] MEDS: DUONEB 0.5-3 MG/3 ml Neb IH SCH ×6 (02:35→23:00)
[2020-01-25] MEDS: VANCOMYCIN 1.25 GM/250 ML BAG 1.25 GM/250 ML PIGGYBACK IV SCH ×2 (06:06→19:21)
[2020-01-25] MEDS: Advair Hfa 115/21 Common canister IH SCH ×2 (06:56→18:36)
[2020-01-25] MEDS: Pepcid 20 MG PO SCH ×2 (09:26→21:52)
[2020-01-25] MEDS: Imdur 30 MG PO SCH (09:26)
[2020-01-25] MEDS: SYNTHROID 25 MCG PO SCH (09:26)
[2020-01-25] MEDS: Seroquel 100 MG PO SCH ×2 (09:26→21:53)
[2020-01-25] MEDS: DELTASONE 20 MG PO SCH (09:26)
[2020-01-25] MEDS: ZOLOFT 50 MG TABLET PO SCH (09:27)
[2020-01-25] MEDS: KLONOPIN PO SCH ×3 (09:27→21:53)
[2020-01-25] MEDS: ENOXAPARIN SODIUM SQ SCH (09:27)
[2020-01-25] MEDS: Neurontin 400 MG PO SCH ×3 (09:27→21:53)
[2020-01-25] MEDS: THERAGRAN MULTIVITAMIN PO SCH (09:27)
[2020-01-25] MEDS: MARY'S MOUTHWASH PO SCH ×4 (09:28→21:54)
[2020-01-25] MEDS: Maxipime 2 GM** 2 G in Sodium Chloride 100ML MINI-BAG PLUS 100 ML IV SCH ×2 (10:31→21:48)
[2020-01-25] MEDS: LEVOFLOXACIN 750MG/150ML D5W 750 MG/150 ML BAG IV SCH (15:55)
[2020-01-25] MEDS: SOMA 350 MG PO SCH (21:53)
[2020-01-26] MEDS: DUONEB 0.5-3 MG/3 ml Neb IH SCH ×3 (03:30→10:25)
[2020-01-26] MEDS: VANCOMYCIN 1.25 GM/250 ML BAG 1.25 GM/250 ML PIGGYBACK IV SCH (05:02)
[2020-01-26 05:09] LABS: Hematocrit 29.8 % (35-47); Mean Cell Volume 83.7 fl (78-100); Mean Corpuscular Hemoglobin 25.3 pg (26-32); Mean Corpuscular Hgb Concent. 30.2 g/dl (32-36); Mean Platelet Volume 9.5 fl (7.5-11.0); Platelet Count 587 K/mm3 (150-450); Red Blood Count 3.56 M/mm3 (4.1-5.4); Red Cell Distribution Width 22.6 % (11.5-14.0); White Blood Count 12.6 K/mm3 (4.0-10.5)
[2020-01-26 05:15] LABS: ALBUMIN 2.9 g/dL (3.5-5.0); ALKALINE PHOSPHATASE 61 U/L (38-126); ANION GAP 5.4 MEQ/L (5-15); BLOOD UREA NITROGEN 18 mg/dL (7-17); CHLORIDE 103 mmol/L (98-107); Calcium 8.7 mg/dL (8.4-10.2); Carbon Dioxide 33 mmol/L (22-30); Creatinine 1 0.57 mg/dL (0.52-1.04); EST GLOMERULAR FILTRATION RATE > 60.0 ML/MIN; Glucose 93 mg/dL (74-106); Potassium 4.1 mmol/L (3.5-5.1); SGOT/AST 18 U/L (14-36); SGPT/ALT 49 U/L (0-35); SODIUM 136 mmol/L (137-145); Total Protein 5.7 g/dL (6.3-8.2)
[2020-01-26 05:36] LABS: ANISOCYTOSIS 2+; Hypochromia 1+; Lymphocytes 16 % (24-44); Monocyte 6 % (0.0-12.0); Neutrophils 78 % (36.0-66.0); Platelet Estimate INCREASED (NORMAL); Polychromasia 1+; Total Cells Counted 100
[2020-01-26] MEDS: Advair Hfa 115/21 Common canister IH SCH (06:52)
[2020-01-26 06:55] VITALS: PULSE 73
[2020-01-26 07:36] VITALS: BP 142/77; O2SAT 98
[2020-01-26] MEDS: ENOXAPARIN SODIUM SQ SCH (10:14)
[2020-01-26] MEDS: DELTASONE 20 MG PO SCH (10:14)
[2020-01-26] MEDS: KLONOPIN PO SCH (10:15)
[2020-01-26] MEDS: THERAGRAN MULTIVITAMIN PO SCH (10:15)
[2020-01-26] MEDS: Imdur 30 MG PO SCH (10:15)
[2020-01-26] MEDS: Neurontin 400 MG PO SCH (10:15)
[2020-01-26] MEDS: Pepcid 20 MG PO SCH (10:15)
[2020-01-26] MEDS: SYNTHROID 25 MCG PO SCH (10:16)
[2020-01-26] MEDS: Seroquel 100 MG PO SCH (10:16)
[2020-01-26] MEDS: ZOLOFT 50 MG TABLET PO SCH (10:16)
[2020-01-26] MEDS: Maxipime 2 GM** 2 G in Sodium Chloride 100ML MINI-BAG PLUS 100 ML IV SCH (10:21)
--- NOTE | 2020-01-26 10:44 | PCM.DS ---
Discharge Summary Date of Admission: 01/23/20 18:30 Admitting Physician: WEN CAMERON Primary Care Provider: WEN CAMERON Allergies Allergies morphine Allergy (Severe, Verified 01/23/20 18:56) Fainting oxycodone Allergy (Verified 01/23/20 18:56) Shortness of Breath Penicillins Allergy (Verified 01/23/20 18:56) Coconut Adverse Reaction (Intermediate, Verified 01/23/20 18:56) Headache omeprazole Adverse Reaction (Intermediate, Verified 01/23/20 18:56) Stomach Pain bupropion HCl [From Wellbutrin] Adverse Reaction (Mild, Verified 01/23/20 18:56) [facility] Summary - Vitals & Intake/Output Vital Signs: Vital Signs Temperature 98.3 F 01/26/20 07:35 Pulse Rate 73 01/26/20 07:35 Respiratory Rate 20 01/26/20 07:35 Blood Pressure 142/77 01/26/20 07:35 O2 Sat by Pulse Oximetry 98 01/26/20 07:35 Intake & Output: Intake & Output 01/23/20 01/24/20 01/25/20 01/26/20 11:59 11:59 11:59 11:59 Intake Total 900 1530 2490 Output Total 400 2175 500 Balance 500 -645 1989 Weight 79.4 kg 79.4 kg 79.5 kg - Lab Result Diagrams: 01/26/20 05:00 01/26/20 05:00 Lab Results-Last 24 Hrs: Lab Results-Last 24 Hours 01/26/20 01/26/20 Range/Units 05:00 05:00 WBC 12.6 H (4.0-10.5) K/mm3 RBC 3.56 L (4.1-5.4) M/mm3 Hgb 9.0 L (12.0-16.0) gm/dl Hct 29.8 L (35-47) % MCV 83.7 (78-100) fl MCH 25.3 L (26-32) pg MCHC 30.2 L (32-36) g/dl RDW 22.6 H (11.5-14.0) % Plt Count 587 H (150-450) K/mm3 MPV 9.5 (7.5-11.0) fl Segmented Neutrophils 78 H (36.0-66.0) % Lymphocytes (Manual) 16 L (24-44) % Monocytes (Manual) 6 (0.0-12.0) % Hypochromia 1+ Platelet Estimate INCREASED (NORMAL) RBC Morphology ABNORMAL Polychromasia 1+ Anisocytosis 2+ Sodium 136 L (137-145) mmol/L Potassium 4.1 (3.5-5.1) mmol/L Chloride 103 (98-107) mmol/L Carbon Dioxide 33 H (22-30) mmol/L Anion Gap 5.4 (5-15) MEQ/L BUN 18 H (7-17) mg/dL Creatinine 0.57 (0.52-1.04) mg/dL Estimated GFR > 60.0 ML/MIN Glucose 93 (74-106) mg/dL Calcium 8.7 (8.4-10.2) mg/dL Total Bilirubin 0.20 (0.2-1.3) mg/dL AST 18 (14-36) U/L ALT 49 H (0-35) U/L Alkaline Phosphatase 61 (38-126) U/L Serum Total Protein 5.7 L (6.3-8.2) g/dL Albumin 2.9 L (3.5-5.0) g/dL - Procedures and Test Procedures and Tests throughout Hospitalization: Therapy Orders & Screens 01/23/20 18:50 OT Eval and Treat (MD Order) ONCE Comment: Consulting Provider: Physician Instructions: Reason For Exam: Diagnosis: c/o short of breath for 3-4 days PT Eval & Treat (MD Order) ONCE Reason for Eval:: WEAKNESS SWINGBED PATIENT Diagnosis: c/o short of breath for 3-4 days BiPap/CPAP ROUTINE Comment: Diagnosis: pnrumonia Flutter Therapy UD Comment: Diagnosis: c/o short of breath for 3-4 days Oxygen Nasal Cannula 3 lpm Comment: Respiratory Therapy Assessment DAILY Comment: 01/24/20 18:05 OT Clarification Order ROUTINE Comment: Physician Instructions: Reason For Exam: OT Clarification: OT TO ADDRESS ADL RETRAINING, THERAPUETIC EXERCISES, AND A.E./DME TRAINING AND RECOMMENDATIONS Final Diagnosis/Problem List - Final Discharge Diagnosis/Problem (1) Sepsis due to pneumonia Current Visit: No Status: Acute Code(s): J18.9 - PNEUMONIA, UNSPECIFIED ORGANISM; A41.9 - SEPSIS, UNSPECIFIED ORGANISM - Discharge Disposition: Home, Self-Care Condition: Stable Prescriptions: New Nystatin/TCN/Hc/Diphenhydramin [Tamara's Mouthwash] 10 ml PO QID 7 Days #1 b ottle Levofloxacin [Levaquin] 750 mg PO DAILY 7 Days #7 tablet Continue Clonazepam 0.5 mg [Klonopin 0.5 MG] 2 mg PO TID Fluticasone/Salmeterol Disc [Advair 250-50 Diskus 14 Dose] 1 puff IH BID Famotidine 20 mg [Pepcid 20 MG] 40 mg PO BID Albuterol/Ipratropium Mdi [Combivent Inhaler] 1 puff IH Q4HWA Sertraline HCl 100 mg [Zoloft 100 MG] 200 mg PO DAILY Isosorbide Mononitrate 30 mg [Imdur 30 MG] 30 mg PO DAILY Tizanidine HCl 4 mg [Zanaflex 4 MG] 4 mg PO TID Levothyroxine Sodium 25 Mcg [Synthroid 25 Mcg] 25 mcg PO DAILY Quetiapine Fumarate [Seroquel] 200 mg PO QAM Vits W-Ca,Fe,FA(<1Mg) [] 1 each PO DAILY Nitroglycerin 0.4 mg Tablet [Nitrostat 0.4 MG Tablet] 0.4 mg SL UD PRN PRN Reason: Chest Pain Albuterol Common Canister [Ventolin Common Canister] 2 puff IH Q4-6HPRN PRN PRN Reason: Shortness Of Breath Quetiapine Fumarate 300 mg PO QHS Gabapentin 400 mg [Neurontin 400 MG] 800 mg PO TID #90 capsule Prednisone 10 mg [Deltasone 10 mg] 10 mg PO DAILY Additional Instructions: Patient will need to continue with duonebs at home 4 times a day for 4 more days. She will need to take her antibiotic daily and take an over the counter probiotic. She should take 2 of her 10 mg prednisone tablets for 3 days then drop down to her routine one 10mg tablet daily Follow up with: WEN CAMERON MD [Primary Care Provider] -
[2020-01-26] MEDS: MARY'S MOUTHWASH PO SCH (10:49)
== END 2020-01-26 12:25 | disposition home or self-care (01) | DRG 193 ==
LOC: ICU 18:30
PROVIDERS: ADMIT General Practice; ATTEND General Practice
DX: J18.9 Pneumonia, unspecified organism (principal); A41.9 Sepsis, unspecified organism; J44.1 Chronic obstructive pulmonary disease with (acute) exacerbation; Z79.899 Other long term (current) drug therapy; E03.9 Hypothyroidism, unspecified; E78.00 Pure hypercholesterolemia, unspecified; D64.9 Anemia, unspecified
CPT/HCPCS: 36415; 80053; 80202; 85025; 94640; 94668; 94760; J0692; J1650; J1956; J2930; 97110-GP; A9270-GY; J3370

== ENCOUNTER 2020-02-12 17:05 | Observation (INO) | payer MEDICARE ==
[2020-02-12 18:03] LABS: Absolute Neutrophil Ct (ANC) 10.99 (1.4-6.9); BASOPHIL % 0.2 % (0.0-0.4); Basophil (Absolute #) 0.03 (0-0.4); Eosinophil % 1.1 % (0.00-5.0); Eosinophil (Absolute #) 0.15 (0-0.5); Hematocrit 33.3 % (35-47); Hemoglobin 9.9 gm/dl (12.0-16.0); Lymphocyte (Absolute #) 1.48 (1.0-4.6); Lymphocytes % 10.6 % (24.0-44.0); Mean Cell Volume 83.7 fl (78-100); Mean Corpuscular Hemoglobin 24.9 pg (26-32); Mean Corpuscular Hgb Concent. 29.7 g/dl (32-36); Mean Platelet Volume 10.1 fl (7.5-11.0); Monocyte (Absolute #) 1.28 (0.0-1.3); Monocytes % 9.2 % (0.0-12.0); Neutrophil % 78.9 % (36.0-66.0); Platelet Count 393 K/mm3 (150-450); Red Blood Count 3.98 M/mm3 (4.1-5.4); Red Cell Distribution Width 23.9 % (11.5-14.0); White Blood Count 13.9 K/mm3 (4.0-10.5)
[2020-02-12 18:15] LABS: ALBUMIN 3.5 g/dL (3.5-5.0); ALKALINE PHOSPHATASE 80 U/L (38-126); ANION GAP 6.8 MEQ/L (5-15); BLOOD UREA NITROGEN 6 mg/dL (7-17); CHLORIDE 107 mmol/L (98-107); Calcium 8.7 mg/dL (8.4-10.2); Carbon Dioxide 25 mmol/L (22-30); EST GLOMERULAR FILTRATION RATE > 60.0 ML/MIN; Glucose 108 mg/dL (74-106); NT PRO BNP 359 pg/mL (0-900); Potassium 3.6 mmol/L (3.5-5.1); SGOT/AST 14 U/L (14-36); SGPT/ALT 12 U/L (0-35); SODIUM 135 mmol/L (137-145); Total Protein 6.8 g/dL (6.3-8.2)
--- NOTE | 2020-02-12 18:46 | ERPHSYRPT ---
- History of Present Illness Time Seen by Provider: 02/12/20 17:30 Source: patient Exam Limitations: no limitations Patient Subjective Stated Complaint: pt reports shortness of breathing beginning this morning, with possible fever, reports chills, reports a recent 9 day in patient stay for pneumonia and sepsis. pt states her PCP advised her to come in for evaluation. reports recent negative COVID test. Triage Nursing Assessment: pt is aox3, pupils perrl, pt afebrile at this time, pt is short of breath with minimal exertion, pt lung sounds are signifcantly diminised over the anterior left upper lobe. pt with scattered wheezes noted in the right sided lung rao. produtive, intermittent, cough. pt radial pulses strong and equal, cap refill < 3 seconds, pt skin pale, warm, dry. Physician History: Patient is a 64-year-old female with a history of COPD on 3 L home O2 presents to our ED with complaints of shortness of breath. Symptoms were first observed this morning. Patient felt well yesterday. Patient states she also is experiencing subjective fevers and chills. Patient advises staff that she was recently admitted and treated for pneumonia sepsis. She was tested for Covid which was negative. Patient symptoms have been constant. No associated chest pain. No nausea vomiting or diaphoresis. Patient has been experiencing an occasional productive cough. Patient voices no other complaints or concerns at this time. Timing/Duration: today Severity: moderate Modifying Factors: Improves With: movement Associated Symptoms: cough, chills, fever, No nausea, No vomiting, No abdominal pain, No diaphoresis, No loss of appetite, No malaise, No rash, No syncope Allergies/Adverse Reactions: morphine Allergy (Severe, Verified 02/12/20 17:39) Fainting oxycodone Allergy (Verified 02/12/20 17:39) Shortness of Breath Penicillins Allergy (Verified 02/12/20 17:39) Coconut Adverse Reaction (Intermediate, Verified 02/12/20 17:39) Headache omeprazole Adverse Reaction (Intermediate, Verified 02/12/20 17:39) Stomach Pain bupropion HCl [From Wellbutrin] Adverse Reaction (Mild, Verified 02/12/20 17:39) Hives Home Medications: Albuterol/Ipratropium Mdi [Combivent Inhaler] 1 puff IH Q4HWA 12/29/12 [History] Clonazepam 0.5 mg [Klonopin 0.5 MG] 2 mg PO TID 12/29/12 [History] Famotidine 20 mg [Pepcid 20 MG] 40 mg PO BID 12/29/12 [History] Fluticasone/Salmeterol Disc [Advair 250-50 Diskus 14 Dose] 1 puff IH BID 12/29/12 [History] Sertraline HCl 100 mg [Zoloft 100 MG] 200 mg PO DAILY 12/17/13 [History] Isosorbide Mononitrate 30 mg [Imdur 30 MG] 30 mg PO DAILY 11/05/14 [History] Tizanidine HCl 4 mg [Zanaflex 4 MG] 4 mg PO TID 01/16/15 [History] Levothyroxine Sodium 25 Mcg [Synthroid 25 Mcg] 25 mcg PO DAILY 10/17/15 [History] Quetiapine Fumarate [Seroquel] 200 mg PO QAM 10/17/15 [History] Vits W-Ca,Fe,FA(<1Mg) [] 1 each PO DAILY 10/18/15 [History] Nitroglycerin 0.4 mg Tablet [Nitrostat 0.4 MG Tablet] 0.4 mg SL UD PRN 11/15/15 [History] Albuterol Common Canister [Ventolin Common Canister] 2 puff IH Q4-6HPRN PRN 07/08/19 [History] Quetiapine Fumarate 300 mg PO QHS 07/08/19 [History] Prednisone 10 mg [Deltasone 10 mg] 10 mg PO DAILY 01/18/20 [History] Hx Tetanus, Diphtheria Vaccination/Date Given: Yes Hx Influenza Vaccination/Date Given: Yes Hx Pneumococcal Vaccination/Date Given: Yes Immunizations Up to Date: Yes Travel Risk - International Travel Have you traveled outside of the country in past 3 weeks: No - Coronavirus Screening Symptoms: Shortness of Breath Close contact with a COVID-19 positive Pt in past 14-21 Days: No - Review of Systems Constitutional: No Symptoms, No Fever, No Chills Eyes: No Symptoms Ears, Nose, & Throat: No Symptoms Respiratory: No Symptoms, No Cough, No Dyspnea Cardiac: No Symptoms, No Chest Pain, No Edema, No Syncope Abdominal/Gastrointestinal: No Symptoms, No Abdominal Pain, No Nausea, No Vomiting, No Diarrhea Genitourinary Symptoms: No Symptoms, No Dysuria Musculoskeletal: No Symptoms, No Back Pain, No Neck Pain Skin: No Symptoms, No Rash Neurological: No Symptoms, No Dizziness, No Focal Weakness, No Sensory Changes Psychological: No Symptoms Endocrine: No Symptoms Hematologic/Lymphatic: No Symptoms Immunological/Allergic: No Symptoms All Other Systems: Reviewed and Negative - Past Medical History Pertinent Past Medical History: Yes Neurological History: Migraines ENT History: No Pertinent History Cardiac History: Congestive Heart Failure, Coronary Artery Disease, High Amelie sterol Respiratory History: Asthma, Bronchitis, COPD, Pneumonia Endocrine Medical History: Hypothyroidism Musculoskeletal History: Arthritis GI Medical History: GERD, Hernia, Polyps History: No Pertinent History Psycho-Social History: Anxiety, Bipolar, Depression Female Reproductive Disorders: Fibroids Other Medical History: 2 LEAKY VALVES. BORDERLINE PERSONALITY DISORDER, PTSD, manic depressive. bone deficiency - Past Surgical History Past Surgical History: Yes Neuro Surgical History: No Pertinent History Cardiac: Cardiac Catheterization Respiratory: No Pertinent History Gastrointestinal: Other Genitourinary: No Pertinent History Musculoskeletal: Other Female Surgical History: Section Other Surgical History: ARM SURGERY, 2 c-sections, EGD with dilitation, Colonoscopy, heart cathx2 - Social History Smoking Status: Current every day smoker How long have you smoked: "40 years" Exposure to second hand smoke: Yes Alcohol Use: Socially Drug Use: none Patient Lives Alone: No Significant Family History: no pertinent family hx - Nursing Vital Signs Nursing Vital Signs: Initial Vital Signs Temperature 99.1 F 02/12/20 17:23 Pulse Rate 101 H 02/12/20 17:23 Respiratory Rate 24 02/12/20 17:23 Blood Pressure 127/83 02/12/20 17:23 O2 Sat by Pulse Oximetry 98 02/12/20 17:23 Pain Scale Pain Intensity 0 - Physical Exam General Appearance: no apparent distress, alert Eye Exam: PERRL/EOMI, eyes nml inspection Ears, Nose, Throat Exam: normal ENT inspection, TMs normal, pharynx normal, moist mucous membranes Neck Exam: normal inspection, non-tender, supple, full range of motion Respiratory Exam: wheezing, other (Slight expiratory wheezing at bilateral bases.), No respiratory distress Cardiovascular Exam: regular rate/rhythm, normal heart sounds, normal peripheral pulses Gastrointestinal/Abdomen Exam: soft, normal bowel sounds, No tenderness, No mass Back Exam: normal inspection, normal range of motion, No CVA tenderness, No vertebral tenderness Extremity Exam: normal inspection, normal range of motion, pelvis stable Neurologic Exam: alert, oriented x 3, cooperative, normal mood/affect, nml cerebellar function, nml station & gait, sensation nml, No motor deficits Skin Exam: normal color, warm, dry, No rash Lymphatic Exam: No adenopathy SpO2 Interpretation: normal SpO2: 98 O2 Delivery: Room Air - Course EKG Interpreted by Me: RATE (102), Sinus Rhythm, NORMAL AXIS, NORMAL INTERVALS - CT Exams Chest CT Interpretation: Tele-radiologist Report (PE evaluation limited due to poor contrast opacification. No obvious central PE. Interval diminished right lung airspace disease with mild residual again greatest right upper lobe. Stable moderate hiatal hernia.) Ordered Tests: Active Orders 24 hr Category Date Time Status Help Desk Intern STAT Care 02/12/20 17:21 Active EKG-ER Only STAT Care 02/12/20 17:20 Active IV Insertion STAT Care 02/12/20 17:20 Active IV Insertion-2nd Peripheral STAT Care 02/12/20 17:32 Active Oxygen-ED Only Nasal Cannula 3 lpm Care 02/12/20 17:32 Active Pulse Oximetry (ED) STAT Care 02/12/20 17:20 Active CHEST 1 VIEW (PORTABLE) Stat Exams 02/12/20 17:21 Taken CHEST WITH CONTRAST [CT] Stat Exams 02/12/20 18:16 Taken BLOOD CULTURE Stat Lab 02/12/20 17:41 Received CBC W DIFF Stat Lab 02/12/20 17:41 Completed CMP Stat Lab 02/12/20 17:41 Completed D-DIMER QUANTITATIVE Stat Lab 02/12/20 17:41 Completed MAGNESIUM Stat Lab 02/12/20 17:41 Completed NT PRO BNP Stat Lab 02/12/20 17:41 Completed TROPONIN Q3H Lab 02/12/20 17:41 Completed TROPONIN Q3H Lab 02/12/20 20:30 Ordered TROPONIN Q3H Lab 02/12/20 23:30 Ordered TROPONIN Q3H Lab 02/13/20 02:30 Ordered TROPONIN Q3H Lab 02/13/20 05:30 Ordered UA W/RFX UR CULTURE Stat Lab 02/12/20 17:20 Ordered Respiratory Therapy Assessment DAILY RT 02/12/20 19:55 Active Medication Summary Generic Name Dose Route Start Last Admin Trade Name Yordan PRN Reason Stop Dose Admin Doxycycline Hyclate 100 mg/ 100 mls @ 100 mls/hr 02/12/20 22:00 02/12/20 19:53 Dextrose IV 03/13/20 21:59 100 mls/hr Q12HT VALERY Administration Discontinued Medications Generic Name Dose Route Start Last Admin Trade Name Zurdoq PRN Reason Stop Dose Admin Albuterol/Ipratropium 3 ml 02/12/20 19:42 02/12/20 19:56 Duoneb 0.5-3 Mg/3 Ml Neb IH 02/12/20 19:43 3 ml STAT ONE Administration Albuterol/Ipratropium Confirm 02/12/20 19:55 Duoneb 0.5-3 Mg/3 Ml Neb Administered 02/12/20 19:56 Dose 3 ml IH .STK-MED ONE Doxycycline Hyclate Confirm 02/12/20 19:51 Vibramycin 100 Mg Administered 02/12/20 19:52 Dose 100 mg IV .STK-MED ONE Methylprednisolone Sodium Succinate 125 mg 02/12/20 19:42 02/12/20 19:47 Solu-Medrol 125 Mg IV 02/12/20 19:43 125 mg STAT ONE Administration Methylprednisolone Sodium Succinate Confirm 02/12/20 19:45 Solu-Medrol 125 Mg Administered 02/12/20 19:46 Dose 125 mg .ROUTE .STK-MED ONE Lab/Rad Data: Laboratory Result Diagrams 02/12/20 17:41 02/12/20 17:41 Laboratory Results 02/12/20 02/12/20 02/12/20 Range/Units 17:41 17:41 17:41 WBC (4.0-10.5) K/mm3 RBC (4.1-5.4) M/mm3 Hgb (12.0-16.0) gm/dl Hct (35-47) % MCV (78-100) fl MCH (26-32) pg MCHC (32-36) g/dl RDW (11.5-14.0) % Plt Count (150-450) K/mm3 MPV (7.5-11.0) fl Gran % (36.0-66.0) % Eos # (Auto) (0-0.5) Absolute Lymphs (auto) (1.0-4.6) Absolute Monos (auto) (0.0-1.3) Lymphocytes % (24.0-44.0) % Monocytes % (0.0-12.0) % Eosinophils % (0.00-5.0) % Basophils % (0.0-0.4) % Absolute Granulocytes (1.4-6.9) Basophils # (0-0.4) D-Dimer 718 H* (215-500) ng/mL Sodium 135 L (137-145) mmol/L Potassium 3.6 (3.5-5.1) mmol/L Chloride 107 (98-107) mmol/L Carbon Dioxide 25 (22-30) mmol/L Anion Gap 6.8 (5-15) MEQ/L BUN 6 L (7-17) mg/dL Creatinine 0.60 (0.52-1.04) mg/dL Estimated GFR > 60.0 ML/MIN Glucose 108 H (74-106) mg/dL Calcium 8.7 (8.4-10.2) mg/dL Magnesium 2.0 (1.6-2.3) mg/dL Total Bilirubin 0.40 (0.2-1.3) mg/dL AST 14 (14-36) U/L ALT 12 (0-35) U/L Alkaline Phosphatase 80 (38-126) U/L Troponin I < 0.012 (0.000-0.034) ng/mL NT-Pro-B Natriuret Pep 359 (0-900) pg/mL Serum Total Protein 6.8 (6.3-8.2) g/dL Albumin 3.5 (3.5-5.0) g/dL 02/12/20 Range/Units 17:41 WBC 13.9 H (4.0-10.5) K/mm3 RBC 3.98 L (4.1-5.4) M/mm3 Hgb 9.9 L (12.0-16.0) gm/dl Hct 33.3 L (35-47) % MCV 83.7 (78-100) fl MCH 24.9 L (26-32) pg MCHC 29.7 L (32-36) g/dl RDW 23.9 H (11.5-14.0) % Plt Count 393 (150-450) K/mm3 MPV 10.1 (7.5-11.0) fl Gran % 78.9 H (36.0-66.0) % Eos # (Auto) 0.15 (0-0.5) Absolute Lymphs (auto) 1.48 (1.0-4.6) Absolute Monos (auto) 1.28 (0.0-1.3) Lymphocytes % 10.6 L (24.0-44.0) % Monocytes % 9.2 (0.0-12.0) % Eosinophils % 1.1 (0.00-5.0) % Basophils % 0.2 (0.0-0.4) % Absolute Granulocytes 10.99 H (1.4-6.9) Basophils # 0.03 (0-0.4) D-Dimer (215-500) ng/mL Sodium (137-145) mmol/L Potassium (3.5-5.1) mmol/L Chloride (98-107) mmol/L Carbon Dioxide (22-30) mmol/L Anion Gap (5-15) MEQ/L BUN (7-17) mg/dL Creatinine (0.52-1.04) mg/dL Estimated GFR ML/MIN Glucose (74-106) mg/dL Calcium (8.4-10.2) mg/dL Magnesium (1.6-2.3) mg/dL Total Bilirubin (0.2-1.3) mg/dL AST (14-36) U/L ALT (0-35) U/L Alkaline Phosphatase (38-126) U/L Troponin I (0.000-0.034) ng/mL NT-Pro-B Natriuret Pep (0-900) pg/mL Serum Total Protein (6.3-8.2) g/dL Albumin (3.5-5.0) g/dL - Departure Departure Disposition: Home Clinical Impression: COPD exacerbation, Pneumonia, Normocytic anemia Condition: Stable Critical Care Time: No Referrals: WEN CAMERON MD [Primary Care Provider] - Instructions: Chronic Obstructive Pulmonary Disease
[2020-02-12] MEDS ORDERED: solu-MEDROL 125 MG IV ONE (19:42)
[2020-02-12] MEDS ORDERED: DUONEB 0.5-3 MG/3 ml Neb IH ONE ×2 (19:42→19:55)
[2020-02-12] MEDS ORDERED: solu-MEDROL 125 MG ONE (19:45)
[2020-02-12] MEDS ORDERED: VIBRAMYCIN 100 MG IV ONE (19:51)
[2020-02-12] MEDS: VIBRAMYCIN 100 MG*** 100 MG in Dextrose 5%/Water IV Soln. 100ML PLUS BAG 100 ML IV SCH (19:53)
[2020-02-12 20:55] LABS: Slide Review 1 YES
[2020-02-12] MEDS: Pepcid 20 MG PO SCH (22:53)
[2020-02-12] MEDS: Neurontin 400 MG PO SCH (22:53)
[2020-02-12] MEDS: Zanaflex 4 MG PO SCH (22:54)
[2020-02-12] MEDS: DELTASONE 5 MG PO SCH (22:54)
[2020-02-12] MEDS: KLONOPIN PO SCH (22:54)
[2020-02-12] MEDS ORDERED: PROVENTIL 2.5 MG/3 ML NEB IH PRN (22:57)
[2020-02-12] MEDS ORDERED: Seroquel 100 MG PO SCH (23:00)
[2020-02-12 23:27] LABS: Epithelial Cells RARE /HPF (FEW); RBC 0-2 /HPF (0-2)
[2020-02-12 23:28] LABS: Appearance CLEAR (CLEAR); Bacteria NONE SEEN /HPF (NEGATIVE); Bilirubin NEGATIVE (NEGATIVE); Glucose NEGATIVE (NEGATIVE); Ketones NEGATIVE (NEGATIVE); Nitrite NEGATIVE (NEGATIVE); Protein,Urine Dip NEGATIVE (Negative); RBC NEGATIVE Ery/ul (0-5); Specific Gravity <=1.005 (1.005-1.025); Urobilinogen 0.2 mg/dL (0-1)
[2020-02-13] MEDS ORDERED: DUONEB 0.5-3 MG/3 ml Neb IH ONE (04:54)
[2020-02-13] MEDS: DUONEB 0.5-3 MG/3 ml Neb IH SCH ×2 (04:57→10:34)
[2020-02-13 06:14] LABS: ALBUMIN 3.5 g/dL (3.5-5.0); ALKALINE PHOSPHATASE 69 U/L (38-126); BLOOD UREA NITROGEN 10 mg/dL (7-17); CHLORIDE 105 mmol/L (98-107); Calcium 8.8 mg/dL (8.4-10.2); Carbon Dioxide 29 mmol/L (22-30); Creatinine 1 0.56 mg/dL (0.52-1.04); EST GLOMERULAR FILTRATION RATE > 60.0 ML/MIN; Glucose 148 mg/dL (74-106); Potassium 4.7 mmol/L (3.5-5.1); SGOT/AST 14 U/L (14-36); SGPT/ALT 12 U/L (0-35); SODIUM 135 mmol/L (137-145); Total Protein 6.9 g/dL (6.3-8.2)
[2020-02-13 06:20] LABS: Hematocrit 33.7 % (35-47); Hemoglobin 9.8 gm/dl (12.0-16.0); Mean Cell Volume 85.5 fl (78-100); Mean Corpuscular Hemoglobin 24.9 pg (26-32); Mean Corpuscular Hgb Concent. 29.1 g/dl (32-36); Mean Platelet Volume 10.4 fl (7.5-11.0); Platelet Count 374 K/mm3 (150-450); Red Blood Count 3.94 M/mm3 (4.1-5.4); Red Cell Distribution Width 24.1 % (11.5-14.0); White Blood Count 7.6 K/mm3 (4.0-10.5)
[2020-02-13 06:47] LABS: Slide Review YES
[2020-02-13] MEDS ORDERED: Advair Hfa 115/21 Common canister IH SCH (07:00)
[2020-02-13] MEDS ORDERED: Nitrostat 0.4 MG Tablet SL PRN (07:59)
--- NOTE | 2020-02-13 09:05 | XRAY ---
Indication: Short of breath. Right upper lobe mass. Comparison: February 02, 2020. Portable chest demonstrates slight worsening diffuse patchy right lung airspace disease with stable right apical masslike opacity and hiatal hernia further detailed on same-day CT chest exam. Remaining heart, left lung, and bony thorax unremarkable.
--- NOTE | 2020-02-13 09:06 | XRAY ---
ndication: Short of breath. Multiple contiguous axial images obtained through the chest using 80 cc Isovue 370 contrast and PE protocol. Comparison: CT chest without January 20, 2020. There is suboptimal opacification of the pulmonary arteries limiting evaluation for pulmonary embolus. No obvious central pulmonary embolus. Heart is not enlarged. Aorta is normal in course and caliber. Stable small mediastinal and right hilar calcified nodes. No pathologic mediastinal/hilar lymphadenopathy. Stable moderate-sized hiatal hernia. Lungs inflated with moderate clearing of the previous right lung airspace disease with mild scattered patchy residual. Right upper lobe demonstrates a 7.1 x 2.5 x 2.9 cm irregular masslike opacity worrisome for malignancy as was reported on comparison CT exam clinical history. Left lung is clear. Remaining lungs again demonstrates mild emphysema. Bony thorax intact. Limited upper abdomen including adrenal glands are unremarkable. Impression: 1. Pulmonary embolus evaluation limited due to suboptimal contrast opacification. No obvious central pulmonary embolus. 2. Interval diminished right lung airspace disease with mild residual. 3. Right upper lobe demonstrates irregular masslike opacity as detailed presumed known malignancy. 4. Stable pulmonary emphysema and hiatal hernia.
[2020-02-13] MEDS ORDERED: THERAGRAN MULTIVITAMIN PO SCH (10:00)
[2020-02-13] MEDS ORDERED: SYNTHROID 25 MCG PO SCH (10:00)
[2020-02-13] MEDS ORDERED: Imdur 30 MG PO SCH (10:00)
[2020-02-13] MEDS ORDERED: ZOLOFT 50 MG TABLET PO SCH (10:00)
[2020-02-13] MEDS ORDERED: NON-FORMULARY ITEM (Prenatal Vits W-Ca,Fe,Fa(<1mg) [Prenatal] 1 EACH) PO SCH (10:00)
[2020-02-13] MEDS ORDERED: SERTRALINE HCL PO SCH (10:00)
[2020-02-13] MEDS ORDERED: Seroquel 100 MG PO SCH (10:00)
[2020-02-13 10:40] VITALS: O2SAT 96
[2020-02-13] MEDS: Pepcid 20 MG PO SCH (10:52)
[2020-02-13] MEDS: Neurontin 400 MG PO SCH (10:53)
[2020-02-13] MEDS: Zanaflex 4 MG PO SCH (10:53)
[2020-02-13] MEDS: KLONOPIN PO SCH (10:53)
[2020-02-13] MEDS: VIBRAMYCIN 100 MG*** 100 MG in Dextrose 5%/Water IV Soln. 100ML PLUS BAG 100 ML IV SCH (10:54)
[2020-02-13] MEDS: DELTASONE 5 MG PO SCH (10:54)
--- NOTE | 2020-02-13 11:07 | PCM.HP ---
History of Present Illness - Chief Complaint Chief Complaint: shortness of breath for 2 days History of Present Illness: is a 64 year old female.with a history of COPD on 3 L home O2 presents to our ED with complaints of shortness of breath. Symptoms were first observed this morning. Patient felt well yesterday. Patient states she also is experiencing subjective fevers and chills. Patient advises staff that she was recently admitted and treated for pneumonia sepsis. She was tested for Covid which was negative. Patient symptoms have been constant. No associated chest pain. No nausea vomiting or diaphoresis. Patient has been experiencing an occasional productive cough. Patient voices no other complaints or concerns at this time. - Review of Systems Constitutional: No Fever, No Chills Eyes: No Symptoms Ears, Nose, & Throat: No Symptoms Respiratory: Cough, Orthopnea, Short Of Breath, Wheezing Cardiac: No Chest Pain, No Edema, No Syncope Abdominal/Gastrointestinal: No Abdominal Pain, No Nausea, No Vomiting, No Diarrhea Genitourinary Symptoms: No Dysuria Musculoskeletal: No Back Pain, No Neck Pain Skin: No Rash Neurological: No Dizziness, No Focal Weakness, No Sensory Changes Psychological: No Symptoms Endocrine: No Symptoms Hematologic/Lymphatic: No Symptoms Immunological/Allergic: No Symptoms Medications & Allergies Home Medications: Home Medication List Albuterol/Ipratropium Mdi [Combivent Inhaler] 1 puff IH Q6H 12/29/12 [History Confirmed 02/12/20] Clonazepam 0.5 mg [Klonopin 0.5 MG] 2 mg PO BID 12/29/12 [History Confirmed 02/12/20] Famotidine 20 mg [Pepcid 20 MG] 40 mg PO BID 12/29/12 [History Confirmed 02/12/20] Fluticasone/Salmeterol Disc [Advair 250-50 Diskus 14 Dose] 1 puff IH BID 12/29/12 [History Confirmed 02/12/20] Sertraline HCl 100 mg [Zoloft 100 MG] 200 mg PO DAILY 12/17/13 [History Confirmed 02/12/20] Isosorbide Mononitrate 30 mg [Imdur 30 MG] 30 mg PO DAILY 11/05/14 [History Confirmed 02/12/20] Tizanidine HCl 4 mg [Zanaflex 4 MG] 4 mg PO TID 01/16/15 [History Confirmed 02/12/20] Levothyroxine Sodium 25 Mcg [Synthroid 25 Mcg] 25 mcg PO DAILY 10/17/15 [History Confirmed 02/12/20] Quetiapine Fumarate [Seroquel] 200 mg PO QAM 10/17/15 [History Confirmed 02/12/20] Vits W-Ca,Fe,FA(<1Mg) [] 1 each PO DAILY 10/18/15 [History Confirmed 02/12/20] Nitroglycerin 0.4 mg Tablet [Nitrostat 0.4 MG Tablet] 0.4 mg SL UD PRN 11/15/15 [History Confirmed 02/12/20] Albuterol Common Canister [Ventolin Common Canister] 2 puff IH Q4-6HPRN PRN 07/08/19 [History Confirmed 02/12/20] Quetiapine Fumarate 300 mg PO QHS 07/08/19 [History Confirmed 02/12/20] Gabapentin 400 mg [Neurontin 400 MG] 800 mg PO TID #90 capsule 12/08/19 [Rx Confirmed 02/12/20] Prednisone 5 mg [Deltasone 5 mg] 5 mg PO BID 02/12/20 [History Confirmed 02/12/20] Allergies/Adverse Reactions: Allergies Allergy/AdvReac Type Severity Reaction Status Date / Time morphine Allergy Severe Fainting Verified 02/12/20 17:39 oxycodone Allergy Shortness Verified 02/12/20 17:39 of Breath Penicillins Allergy Verified 02/12/20 17:39 [place]ut AdvReac Intermediate Headache Verified 02/12/20 17:39 omeprazole AdvReac Intermediate Stomach Verified 02/12/20 17:39 Pain bupropion HCl AdvReac Mild Hives Verified 02/12/20 17:39 [From Wellbutrin] - Past Medical History Past Medical History: Yes Neurological History: Migraines ENT History: No Pertinent History Cardiac History: Congestive Heart Failure, Coronary Artery Disease, High Cholesterol Respiratory History: Asthma, Bronchitis, COPD, Pneumonia Endocrine Medical History: Hypothyroidism Musculoskelatal History: Arthritis GI Medical History: GERD, Hernia, Polyps History: No Pertinent History Pyscho-Social History: Anxiety, Bipolar, Depression Reproductive Disorders: Fibroids Comment: 2 LEAKY VALVES. BORDERLINE PERSONALITY DISORDER, PTSD, manic depressive. bone deficiency - Female History Are you now?: No - Past Surgical History Past Surgical History: Yes Neuro Surgical History: No Pertinent History Cardiac History: Cardiac Catheterization Respiratory Surgery: No Pertinent History GI Surgical History: Other Genitourinary Surgical Hx: No Pertinent History Musculskeletal Surgical Hx: Other Female Surgical History: Section Other Surgical History: ARM SURGERY, 2 c-sections, EGD with dilitation, Colonoscopy, heart cathx2 - Social History Smoking Status: Current every day smoker How long have you smoked: 40 YEARS Exposure to second hand smoke: Yes Alcohol: None Drug Use: none Significant Family History: no pertinent family hx - Physical Exam Vital Signs: Vital Signs - 24 hr Temp Pulse Resp BP Pulse Ox 02/13/20 10:36 88 20 96 02/13/20 07:41 97.6 F 85 22 97 02/13/20 04:58 76 22 98 02/13/20 04:00 97.6 F 77 26 H 124/73 100 02/13/20 00:18 98.6 F 86 28 H 113/61 98 02/12/20 22:50 86 16 99 02/12/20 21:03 98.0 F 86 16 124/62 99 02/12/20 20:55 98 F 86 16 124/62 99 02/12/20 20:47 84 20 97 02/12/20 20:01 98 02/12/20 19:56 86 20 98 02/12/20 19:08 95 H 112/92 99 02/12/20 18:20 94 H 20 123/80 98 02/12/20 17:23 99.1 F 101 H 24 127/83 97 Oxygen-Last 24 hours Oxygen Flowrate (L/min)-RT 3 Oxygen Flowrate (L/min)-RT 3 General Appearance: no apparent distress, alert Neurologic Exam: alert, oriented x 3, cooperative, normal mood/affect, nml cerebellar function, nml station & gait, sensation nml, No motor deficits Eye Exam: PERRL/EOMI, eyes nml inspection Ears, Nose, Throat Exam: normal ENT inspection, TMs normal, pharynx normal, moist mucous membranes Neck Exam: normal inspection, non-tender, supple, full range of motion Respiratory Exam: diminished breath sounds, accessory muscle use, prolonged expirations, crackles/rales, rhonchi, wheezing, No respiratory distress Cardiovascular Exam: regular rate/rhythm, normal heart sounds, normal peripheral pulses Gastrointestinal/Abdomen Exam: soft, normal bowel sounds, No tenderness, No mass Back Exam: normal inspection, normal range of motion, No CVA tenderness, No vertebral tenderness Extremity Exam: normal inspection, normal range of motion, pelvis stable Skin Exam: normal color, warm, dry, No rash Lymphatic Exam: No adenopathy Results - Labs Lab/Micro Results: Lab Results-Last 24 Hours 02/12/20 02/12/20 02/12/20 Range/Units 17:41 17:41 17:41 WBC 13.9 H (4.0-10.5) K/mm3 RBC 3.98 L (4.1-5.4) M/mm3 Hgb 9.9 L (12.0-16.0) gm/dl Hct 33.3 L (35-47) % MCV 83.7 (78-100) fl MCH 24.9 L (26-32) pg MCHC 29.7 L (32-36) g/dl RDW 23.9 H (11.5-14.0) % Plt Count 393 (150-450) K/mm3 MPV 10.1 (7.5-11.0) fl Gran % 78.9 H (36.0-66.0) % Eos # (Auto) 0.15 (0-0.5) Absolute Lymphs (auto) 1.48 (1.0-4.6) Absolute Monos (auto) 1.28 (0.0-1.3) Lymphocytes % 10.6 L (24.0-44.0) % Monocytes % 9.2 (0.0-12.0) % Eosinophils % 1.1 (0.00-5.0) % Basophils % 0.2 (0.0-0.4) % Absolute Granulocytes 10.99 H (1.4-6.9) Basophils # 0.03 (0-0.4) D-Dimer 718 H* (215-500) ng/mL Sodium 135 L (137-145) mmol/L Potassium 3.6 (3.5-5.1) mmol/L Chloride 107 (98-107) mmol/L Carbon Dioxide 25 (22-30) mmol/L Anion Gap 6.8 (5-15) MEQ/L BUN 6 L (7-17) mg/dL Creatinine 0.60 (0.52-1.04) mg/dL Estimated GFR > 60.0 ML/MIN Glucose 108 H (74-106) mg/dL Calcium 8.7 (8.4-10.2) mg/dL Magnesium 2.0 (1.6-2.3) mg/dL Total Bilirubin 0.40 (0.2-1.3) mg/dL AST 14 (14-36) U/L ALT 12 (0-35) U/L Alkaline Phosphatase 80 (38-126) U/L Troponin I (0.000-0.034) ng/mL NT-Pro-B Natriuret Pep 359 (0-900) pg/mL Serum Total Protein 6.8 (6.3-8.2) g/dL Albumin 3.5 (3.5-5.0) g/dL Urine Color (YELLOW) Urine Appearance (CLEAR) Urine pH (5-6) Ur Specific [place] (1.005-1.025) POC Urine Protein Conf (Negative) Urine Ketones (NEGATIVE) Urine Nitrite (NEGATIVE) Urine Bilirubin (NEGATIVE) Urine Urobilinogen (0-1) mg/dL Urine Leukocytes (NEGATIVE) Urine WBC (Auto) (0-5) /HPF Urine RBC (Auto) (0-2) /HPF U Epithel Cells (Auto) (FEW) /HPF Urine Bacteria (Auto) (NEGATIVE) /HPF Urine RBC (0-5) Erasto/ul Ur Culture Indicated? Urine Glucose (NEGATIVE) mg/dL SARS-CoV-2 (PCR) (NEGATIVE) Slides for Path Review YES 02/12/20 02/12/20 02/12/20 Range/Units 17:41 19:55 20:47 WBC (4.0-10.5) K/mm3 RBC (4.1-5.4) M/mm3 Hgb (12.0-16.0) gm/dl Hct (35-47) % MCV (78-100) fl MCH (26-32) pg MCHC (32-36) g/dl RDW (11.5-14.0) % Plt Count (150-450) K/mm3 MPV (7.5-11.0) fl Gran % (36.0-66.0) % Eos # (Auto) (0-0.5) Absolute Lymphs (auto) (1.0-4.6) Absolute Monos (auto) (0.0-1.3) Lymphocytes % (24.0-44.0) % Monocytes % (0.0-12.0) % Eosinophils % (0.00-5.0) % Basophils % (0.0-0.4) % Absolute Granulocytes (1.4-6.9) Basophils # (0-0.4) D-Dimer (215-500) ng/mL Sodium (137-145) mmol/L Potassium (3.5-5.1) mmol/L Chloride (98-107) mmol/L Carbon Dioxide (22-30) mmol/L Anion Gap (5-15) MEQ/L BUN (7-17) mg/dL Creatinine (0.52-1.04) mg/dL Estimated GFR ML/MIN Glucose (74-106) mg/dL Calcium (8.4-10.2) mg/dL Magnesium (1.6-2.3) mg/dL Total Bilirubin (0.2-1.3) mg/dL AST (14-36) U/L ALT (0-35) U/L Alkaline Phosphatase (38-126) U/L Troponin I < 0.012 < 0.012 (0.000-0.034) ng/mL NT-Pro-B Natriuret Pep (0-900) pg/mL Serum Total Protein (6.3-8.2) g/dL Albumin (3.5-5.0) g/dL Urine Color (YELLOW) Urine Appearance (CLEAR) Urine pH (5-6) Ur Specific [place] (1.005-1.025) POC Urine Protein Conf (Negative) Urine Ketones (NEGATIVE) Urine Nitrite (NEGATIVE) Urine Bilirubin (NEGATIVE) Urine Urobilinogen (0-1) mg/dL Urine Leukocytes (NEGATIVE) Urine WBC (Auto) (0-5) /HPF Urine RBC (Auto) (0-2) /HPF U Epithel Cells (Auto) (FEW) /HPF Urine Bacteria (Auto) (NEGATIVE) /HPF Urine RBC (0-5) Erasto/ul Ur Culture Indicated? Urine Glucose (NEGATIVE) mg/dL SARS-CoV-2 (PCR) NEGATIVE (NEGATIVE) Slides for Path Review 02/12/20 02/13/20 02/13/20 Range/Units 22:48 05:00 05:00 WBC 7.6 (4.0-10.5) K/mm3 RBC 3.94 L (4.1-5.4) M/mm3 Hgb 9.8 L (12.0-16.0) gm/dl Hct 33.7 L (35-47) % MCV 85.5 (78-100) fl MCH 24.9 L (26-32) pg MCHC 29.1 L (32-36) g/dl RDW 24.1 H (11.5-14.0) % Plt Count 374 (150-450) K/mm3 MPV 10.4 (7.5-11.0) fl Gran % (36.0-66.0) % Eos # (Auto) (0-0.5) Absolute Lymphs (auto) (1.0-4.6) Absolute Monos (auto) (0.0-1.3) Lymphocytes % (24.0-44.0) % Monocytes % (0.0-12.0) % Eosinophils % (0.00-5.0) % Basophils % (0.0-0.4) % Absolute Granulocytes (1.4-6.9) Basophils # (0-0.4) D-Dimer (215-500) ng/mL Sodium 135 L (137-145) mmol/L Potassium 4.7 D (3.5-5.1) mmol/L Chloride 105 (98-107) mmol/L Carbon Dioxide 29 (22-30) mmol/L Anion Gap 6.0 (5-15) MEQ/L BUN 10 (7-17) mg/dL Creatinine 0.56 (0.52-1.04) mg/dL Estimated GFR > 60.0 ML/MIN Glucose 148 H (74-106) mg/dL Calcium 8.8 (8.4-10.2) mg/dL Magnesium (1.6-2.3) mg/dL Total Bilirubin 0.30 (0.2-1.3) mg/dL AST 14 (14-36) U/L ALT 12 (0-35) U/L Alkaline Phosphatase 69 (38-126) U/L Troponin I (0.000-0.034) ng/mL NT-Pro-B Natriuret Pep (0-900) pg/mL Serum Total Protein 6.9 (6.3-8.2) g/dL Albumin 3.5 (3.5-5.0) g/dL Urine Color YELLOW (YELLOW) Urine Appearance CLEAR (CLEAR) Urine pH 5.0 (5-6) Ur Specific [place] <=1.005 (1.005-1.025) POC Urine Protein Conf NEGATIVE (Negative) Urine Ketones NEGATIVE (NEGATIVE) Urine Nitrite NEGATIVE (NEGATIVE) Urine Bilirubin NEGATIVE (NEGATIVE) Urine Urobilinogen 0.2 (0-1) mg/dL Urine Leukocytes NEGATIVE (NEGATIVE) Urine WBC (Auto) NONE (0-5) /HPF Urine RBC (Auto) 0-2 (0-2) /HPF U Epithel Cells (Auto) RARE (FEW) /HPF Urine Bacteria (Auto) NONE SEEN (NEGATIVE) /HPF Urine RBC NEGATIVE (0-5) Erasto/ul Ur Culture Indicated? NO Urine Glucose NEGATIVE (NEGATIVE) mg/dL SARS-CoV-2 (PCR) (NEGATIVE) Slides for Path Review YES - Radiology Impressions Radiology Exams & Impressions: Radiology Procedures Category Date Time Status CHEST 1 VIEW (PORTABLE) Stat Exams 02/12/20 17:21 Completed CHEST WITH CONTRAST [CT] Stat Exams 02/12/20 18:16 Completed - Other Procedures and Tests Respiratory Therapy 02/12/20 19:55 Respiratory Therapy Assessment DAILY 02/12/20 22:54 Oxygen Nasal Cannula 3 lpm Assessment/Plan (1) COPD exacerbation Current Visit: Yes Status: Acute Assessment & Plan: Chief Complaint Diagnosis COPD exacerbation Allergies Allergy/AdvReac Type Severity Reaction Status Date / Time morphine Allergy Severe Fainting Verified 02/12/20 17:39 oxycodone Allergy Shortness Verified 02/12/20 17:39 of Breath Penicillins Allergy Verified 02/12/20 17:39 [place] AdvReac Intermediate Headache Verified 02/12/20 17:39 omeprazole AdvReac Intermediate Stomach Verified 02/12/20 17:39 Pain bupropion HCl AdvReac Mild Hives Verified 02/12/20 17:39 [From Wellbutrin] Vital Signs (Last 24 hours) Temp Pulse Resp BP Pulse Ox 12/15/20 10:36 88 20 96 02/13/20 07:41 97.6 F 85 22 97 02/13/20 04:58 76 22 98 02/13/20 04:00 97.6 F 77 26 H 124/73 100 02/13/20 00:18 98.6 F 86 28 H 113/61 98 02/12/20 22:50 86 16 99 02/12/20 21:03 98.0 F 86 16 124/62 99 02/12/20 20:55 98 F 86 16 124/62 99 02/12/20 20:47 84 20 97 02/12/20 20:01 98 02/12/20 19:56 86 20 98 02/12/20 19:08 95 H 112/92 99 02/12/20 18:20 94 H 20 123/80 98 02/12/20 17:23 99.1 F 101 H 24 127/83 97 Home Medications Medication Instructions Recorded Confirmed Last Taken Type Prednisone 5 mg [Deltasone 5 5 mg PO BID 02/12/20 02/12/20 02/12/20 History mg] Current Medications Generic Name Dose Route Start Last Admin Trade Name Freq PRN Reason Stop Dose Admin Albuterol Sulfate 2.5 mg 02/12/20 22:57 Proventil 2.5 Mg/3 Ml Neb IH 03/13/20 22:56 Q4H PRN PRN SHORTNESS OF BREATH/WHEEZING Albuterol/Ipratropium 3 ml 02/13/20 07:00 02/13/20 10:34 Duoneb 0.5-3 Mg/3 Ml Neb IH 03/14/20 06:59 3 ml QIDRT VALERY Administration Clonazepam 2 mg 02/12/20 23:00 02/13/20 10:53 Klonopin PO 03/13/20 22:59 2 mg BID VALERY Administration Famotidine 40 mg 02/12/20 23:00 02/13/20 10:52 Pepcid 20 Mg PO 03/13/20 22:59 40 mg BID VALERY Administration Gabapentin 800 mg 02/12/20 23:00 02/13/20 10:53 Neurontin 400 Mg PO 03/13/20 22:59 800 mg TID VALERY Administration Doxycycline Hyclate 100 mg/ 100 mls @ 100 mls/hr 02/12/20 22:00 02/13/20 10:54 Dextrose IV 03/13/20 21:59 100 mls/hr Q12HT VALERY Administration Isosorbide Mononitrate 30 mg 02/13/20 10:00 02/13/20 10:52 Imdur 30 Mg PO 03/14/20 09:59 30 mg DAILY VALERY Administration Levothyroxine Sodium 25 mcg 02/13/20 10:00 02/13/20 10:53 Synthroid 25 Mcg PO 03/14/20 09:59 25 mcg DAILY VALERY Administration Multivitamins Therapeutic 1 tab 02/13/20 10:00 02/13/20 10:53 Theragran Multivitamin PO 03/14/20 09:59 1 tab DAILY VALERY Administration Nitroglycerin 0.4 mg 02/13/20 07:59 Nitrostat 0.4 Mg Tablet SL 03/14/20 07:58 UD PRN CHEST PAIN Prednisone 5 mg 02/12/20 23:00 02/13/20 10:54 Deltasone 5 Mg PO 03/13/20 22:59 5 mg BID VALERY Administration Quetiapine Fumarate 300 mg 02/12/20 23:00 02/12/20 22:53 Seroquel 100 Mg PO 03/13/20 22:59 300 mg HS VALERY Administration Quetiapine Fumarate 200 mg 02/13/20 10:00 02/13/20 10:52 Seroquel 100 Mg PO 03/14/20 09:59 200 mg QAM VALERY Administration Fluticasone/Salmeterol 2 puff 02/13/20 07:00 02/13/20 04:58 Advair Hfa 115/21 Common Canister* IH 03/14/20 06:59 2 puff BIDRT VALERY Administration Sertraline HCl 200 mg 02/13/20 10:00 02/13/20 10:53 Zoloft 50 Mg Tablet PO 03/14/20 09:59 200 mg DAILY VALERY Administration Tizanidine HCl 4 mg 02/12/20 23:00 02/13/20 10:53 Zanaflex 4 Mg PO 03/13/20 22:59 4 mg TID VALERY Administration Discontinued Medications Generic Name Dose Route Start Last Admin Trade Name Yordan PRN Reason Stop Dose Admin Albuterol/Ipratropium 3 ml 02/12/20 19:42 02/12/20 19:56 Duoneb 0.5-3 Mg/3 Ml Neb IH 02/12/20 19:43 3 ml STAT ONE Administration Albuterol/Ipratropium Confirm 02/12/20 19:55 Duoneb 0.5-3 Mg/3 Ml Neb Administered 02/12/20 19:56 Dose 3 ml IH .STK-MED ONE Albuterol/Ipratropium Confirm 02/13/20 04:54 Duoneb 0.5-3 Mg/3 Ml Neb Administered 02/13/20 04:55 Dose 3 ml IH .STK-MED ONE Doxycycline Hyclate Confirm 02/12/20 19:51 Vibramycin 100 Mg Administered 02/12/20 19:52 Dose 100 mg IV .STK-MED ONE Methylprednisolone Sodium Succinate 125 mg 02/12/20 19:42 02/12/20 19:47 Solu-Medrol 125 Mg IV 02/12/20 19:43 125 mg STAT ONE Administration Methylprednisolone Sodium Succinate Confirm 02/12/20 19:45 Solu-Medrol 125 Mg Administered 02/12/20 19:46 Dose 125 mg .ROUTE .STK-MED ONE Intake & Output (Last 24 hours) 02/10/20 02/11/20 02/12/20 02/13/20 11:59 11:59 11:59 11:59 Intake Total 480 Output Total 150 Balance 330 Weight 72.3 kg Microbiology Results (Last 24 hours) 02/12/20 17:41 Blood Blood Culture Gram Stain - Pending 02/12/20 17:41 Blood Blood Culture - Pending 02/12/20 17:41 Blood Blood Culture Gram Stain - Pending 02/12/20 17:41 Blood Blood Culture - Pending Laboratory Results (Last 24 hours) 02/13/20 02/13/20 02/12/20 05:00 05:00 22:48 WBC 7.6 RBC 3.94 L Hgb 9.8 L Hct 33.7 L MCV 85.5 MCH 24.9 L MCHC 29.1 L RDW 24.1 H Plt Count 374 MPV 10.4 Gran % Eos # (Auto) Absolute Lymphs (auto) Absolute Monos (auto) Lymphocytes % Monocytes % Eosinophils % Basophils % Absolute Granulocytes Basophils # D-Dimer Sodium 135 L Potassium 4.7 D Chloride 105 Carbon Dioxide 29 Anion Gap 6.0 BUN 10 Creatinine 0.56 Estimated GFR > 60.0 Glucose 148 H Calcium 8.8 Magnesium Total Bilirubin 0.30 AST 14 ALT 12 Alkaline Phosphatase 69 Troponin I NT-Pro-B Natriuret Pep Serum Total Protein 6.9 Albumin 3.5 Urine Color YELLOW Urine Appearance CLEAR Urine pH 5.0 Ur Specific [place] <=1.005 POC Urine Protein Conf NEGATIVE Urine Ketones NEGATIVE Urine Nitrite NEGATIVE Urine Bilirubin NEGATIVE Urine Urobilinogen 0.2 Urine Leukocytes NEGATIVE Urine WBC (Auto) NONE Urine RBC (Auto) 0-2 U Epithel Cells (Auto) RARE Urine Bacteria (Auto) NONE SEEN Urine RBC NEGATIVE Ur Culture Indicated? NO Urine Glucose NEGATIVE SARS-CoV-2 (PCR) Slides for Path Review YES 02/12/20 02/12/20 02/12/20 20:47 19:55 17:41 WBC RBC Hgb Hct MCV MCH MCHC RDW Plt Count MPV Gran % Eos # (Auto) Absolute Lymphs (auto) Absolute Monos (auto) Lymphocytes % Monocytes % Eosinophils % Basophils % Absolute Granulocytes Basophils # D-Dimer Sodium Potassium Chloride Carbon Dioxide Anion Gap BUN Creatinine Estimated GFR Glucose Calcium Magnesium Total Bilirubin AST ALT Alkaline Phosphatase Troponin I < 0.012 < 0.012 NT-Pro-B Natriuret Pep Serum Total Protein Albumin Urine Color Urine Appearance Urine pH Ur Specific [place] POC Urine Protein Conf Urine Ketones Urine Nitrite Urine Bilirubin Urine Urobilinogen Urine Leukocytes Urine WBC (Auto) Urine RBC (Auto) U Epithel Cells (Auto) Urine Bacteria (Auto) Urine RBC Ur Culture Indicated? Urine Glucose SARS-CoV-2 (PCR) NEGATIVE Slides for Path Review 02/12/20 02/12/20 02/12/20 17:41 17:41 17:41 WBC 13.9 H RBC 3.98 L Hgb 9.9 L Hct 33.3 L MCV 83.7 MCH 24.9 L MCHC 29.7 L RDW 23.9 H Plt Count 393 MPV 10.1 Gran % 78.9 H Eos # (Auto) 0.15 Absolute Lymphs (auto) 1.48 Absolute Monos (auto) 1.28 Lymphocytes % 10.6 L Monocytes % 9.2 Eosinophils % 1.1 Basophils % 0.2 Absolute Granulocytes 10.99 H Basophils # 0.03 D-Dimer 718 H* Sodium 135 L Potassium 3.6 Chloride 107 Carbon Dioxide 25 Anion Gap 6.8 BUN 6 L Creatinine 0.60 Estimated GFR > 60.0 Glucose 108 H Calcium 8.7 Magnesium 2.0 Total Bilirubin 0.40 AST 14 ALT 12 Alkaline Phosphatase 80 Troponin I NT-Pro-B Natriuret Pep 359 Serum Total Protein 6.8 Albumin 3.5 Urine Color Urine Appearance Urine pH Ur Specific [place] POC Urine Protein Conf Urine Ketones Urine Nitrite Urine Bilirubin Urine Urobilinogen Urine Leukocytes Urine WBC (Auto) Urine RBC (Auto) U Epithel Cells (Auto) Urine Bacteria (Auto) Urine RBC Ur Culture Indicated? Urine Glucose SARS-CoV-2 (PCR) Slides for Path Review YES Orders (Last 24 hours) Category Date Time Status Bedrest ROUTINE Activity 02/12/20 21:37 Active Enrollment Counselor STAT Care 02/12/20 17:21 Completed Code Status Order ROUTINE Care 02/12/20 21:37 Active EKG-ER Only STAT Care 02/12/20 17:20 Completed IV Care Q6H Care 02/12/20 21:37 Active IV Insertion STAT Care 02/12/20 17:20 Completed IV Insertion-2nd Peripheral STAT Care 02/12/20 17:32 Completed Oxygen-ED Only Nasal Cannula 3 lpm Care 02/12/20 17:[address] in Observation ROUTINE Care 02/12/20 21:37 Active Pulse Oximetry (ED) STAT Care 02/12/20 17:20 Completed Betzy Gilmore ROUTINE Care 02/12/20 21:37 Active Telemetry Q12H Care 02/12/20 21:37 Active Weight,Daily 0600 Care 02/12/20 21:37 Active Cardio-Pulmonary Rehab .as ordered Cons 02/12/20 21:37 Active Infection Control Consult ROUTINE Cons 02/12/20 21:37 Active Electronic Parts Designer/Discharge Plan ROUTINE Cons 02/12/20 21:37 Active Discharge Planning,Consult Routine Discharge 02/13/20 Active CHEST 1 VIEW (PORTABLE) Stat Exams 02/12/20 17:21 Completed CHEST WITH CONTRAST [CT] Stat Exams 02/12/20 18:16 Completed BLOOD CULTURE Stat Lab 02/12/20 17:41 Received CBC AM.LAB Lab 02/13/20 05:00 Completed CBC W DIFF Stat Lab 02/12/20 17:41 Completed CMP AM.LAB Lab 02/13/20 05:00 Completed CMP Stat Lab 02/12/20 17:41 Completed D-DIMER QUANTITATIVE Stat Lab 02/12/20 17:41 Completed MAGNESIUM Stat Lab 02/12/20 17:41 Completed NT PRO BNP Stat Lab 02/12/20 17:41 Completed TROPONIN Q3H Lab 02/12/20 17:41 Completed TROPONIN Q3H Lab 02/12/20 20:47 Completed Albuterol 2.5 mg/3 ml Neb [Proventil 2.5 mg/3 ml Neb Med 02/12/20 22:57 Active ] 2.5 mg IH Q4H PRN PRN Albuterol/Ipratropium 3ml Neb* [DUONEB 0.5-3 MG/3 ml Med 02/12/20 19:55 Discontinued Neb] 3 ml IH .STK-MED ONE Albuterol/Ipratropium 3ml Neb* [DUONEB 0.5-3 MG/3 ml Med 02/13/20 04:54 Discontinued Neb] 3 ml IH .STK-MED ONE Albuterol/Ipratropium 3ml Neb* [DUONEB 0.5-3 MG/3 ml Med 02/13/20 07:00 Active Neb] 3 ml IH QIDRT Albuterol/Ipratropium 3ml Neb* [DUONEB 0.5-3 MG/3 ml Med 02/12/20 19:42 Discontinued Neb] 3 ml IH STAT ONE Clonazepam [Klonopin] Med 02/12/20 23:00 Active 2 mg PO BID Doxycycline Hyclate 100 mg [Vibramycin 100 mg] Med 02/12/20 19:51 Discontinued 100 mg IV .STK-MED ONE Doxycycline Hyclate 100 mg [Vibramycin 100 mg] Med 02/12/20 22:00 Active 100 mg D5w 100 ml Mini-Bag Plus [Dextrose 5%/Water IV Soln. 100ML PLUS BAG] 100 ml IV Q12HT Famotidine 20 mg [Pepcid 20 MG] Med 02/12/20 23:00 Active 40 mg PO BID Fluticasone/Salmeterol 115/21 [Advair Hfa 115/21 Common Med 02/13/20 07:00 Active canister*] 2 puff IH BIDRT Gabapentin 400 mg [Neurontin 400 MG] Med 02/12/20 23:00 Active 800 mg PO TID Isosorbide Mononitrate 30 mg [Imdur 30 MG] Med 02/13/20 10:00 Active 30 mg PO DAILY Levothyroxine Sodium 25 Mcg [Synthroid 25 Mcg] Med 02/13/20 10:00 Active 25 mcg PO DAILY Methylprednis Sod Succ 125 mg* [solu-MEDROL 125 MG] Med 02/12/20 19:45 Discontinued 125 mg .ROUTE .STK-MED ONE Methylprednis Sod Succ 125 mg* [solu-MEDROL 125 MG] Med 02/12/20 19:42 D iscontinued 125 mg IV STAT ONE Multivitamins,Therapeutic Tab* [Theragran Multivitamin* Med 02/13/20 10:00 Active ] 1 tab PO DAILY Nitroglycerin 0.4 mg Tablet [Nitrostat 0.4 MG Tablet Med 02/13/20 07:59 Active ] 0.4 mg SL UD PRN Prednisone 5 mg [Deltasone 5 mg] Med 02/12/20 23:00 Active 5 mg PO BID Quetiapine Fumarate 100 mg [Seroquel 100 MG] Med 02/13/20 10:00 Active 200 mg PO QAM Quetiapine Fumarate 100 mg [Seroquel 100 MG] Med 02/12/20 23:00 Active 300 mg PO HS Sertraline HCl 50 mg [Zoloft 50 mg Tablet] Med 02/13/20 10:00 Active 200 mg PO DAILY Tizanidine HCl 4 mg [Zanaflex 4 MG] Med 02/12/20 23:00 Active 4 mg PO TID Oxygen Nasal Cannula 3 lpm RT 02/12/20 22:54 Active Pulse Oximetry .spot check RT 02/12/20 22:50 Active RT Screen per Nursing Assess ONCE RT 02/12/20 21:37 Completed Respiratory Therapy Assessment DAILY RT 02/12/20 19:55 Active Smoking Cessation Education ONCE RT 02/12/20 21:37 Completed Patient Care Notes (Last 24 hours) 02/13/20 05:15 Respiratory Note by Daniel Marin ADDED HUMIDITY TO PT O2. Initialized on 02/13/20 05:15 - END OF NOTE 02/12/20 22:51 Nursing Note by Vera Ariza sent to lab Initialized on 02/12/20 22:51 - END OF NOTE Code(s): J44.1 - CHRONIC OBSTRUCTIVE PULMONARY DISEASE W (ACUTE) EXACERBATION
[2020-02-13 11:50] VITALS: BP 134/76; PULSE 84
== END 2020-02-13 14:04 | disposition home health service (06) ==
LOC: ED 17:05 → MED SURG 20:52
PROVIDERS: ADMIT General Practice; ATTEND General Practice
DX: J44.1 Chronic obstructive pulmonary disease with (acute) exacerbation (principal); Z79.899 Other long term (current) drug therapy; E78.00 Pure hypercholesterolemia, unspecified; I25.10 Atherosclerotic heart disease of native coronary artery without angina pectoris; E03.9 Hypothyroidism, unspecified
CPT/HCPCS: 36000; 36415; 71045; 71260; 80053; 81015; 83735; 83880; 84484; 85025; 85027; 85379; 87040; 93005; 93041; 93268; 94640; 94760; 96374; 99285; G0378; U0003; J2930; A9270-GY

== ENCOUNTER 2020-03-22 15:22 | Emergency (ER) | payer MEDICARE ==
[2020-03-22] MEDS ORDERED: DUONEB 0.5-3 MG/3 ml Neb IH ONE ×2 (15:33→15:42)
[2020-03-22] MEDS ORDERED: solu-MEDROL 125 MG IV ONE (15:33)
--- NOTE | 2020-03-22 15:35 | ERPHSYRPT ---
- History of Present Illness Time Seen by Provider: 03/22/20 15:30 Source: patient Exam Limitations: no limitations Patient Subjective Stated Complaint: pt began getting short of breath yesterday and it became worse today Triage Nursing Assessment: Pt was brought to the ER by her boyfriend, tachycardic, hypertensive, inspiratory and expiratory wheezing throughout, was on 3 L NC when she arrived and was placed on 5L, skin pale/w/d, denies pain Physician History: Patient is a 64-year-old female with history of coronary artery disease, CHF and COPD who presents with acute onset of shortness of breath. Symptoms started about a week ago and gradually got worse. Patient with nonproductive cough. Denies fever or chills. Denies GI symptoms. Patient was discharged after 9 day stay in the ER for pneumonia and sepsis back in January. Patient is on home oxygen at 3 L. Patient still smokes. Feels she may have pneumonia again. Timing/Duration: week(s), worse (1) Activities at Onset: none Severity of Dyspnea-Max: moderate Severity of Dyspnea-Current: severe Possible Cause: frequent episodes, smoke exposure Modifying Factors: Improves With: activity, oxygen, rest Associated Symptoms: cough, wheezing, weakness Allergies/Adverse Reactions: morphine Allergy (Severe, Verified 02/12/20 17:39) Fainting oxycodone Allergy (Verified 02/12/20 17:39) Shortness of Breath Penicillins Allergy (Verified 02/12/20 17:39) Coconut Adverse Reaction (Intermediate, Verified 02/12/20 17:39) Headache omeprazole Adverse Reaction (Intermediate, Verified 02/12/20 17:39) Stomach Pain bupropion HCl [From Wellbutrin] Adverse Reaction (Mild, Verified 02/12/20 17:39) Hives Home Medications: Albuterol/Ipratropium Mdi [Combivent Inhaler] 1 puff IH Q6H 12/29/12 [History] Clonazepam 0.5 mg [Klonopin 0.5 MG] 2 mg PO BID 12/29/12 [History] Famotidine 20 mg [Pepcid 20 MG] 40 mg PO BID 12/29/12 [History] Fluticasone/Salmeterol Disc [Advair 250-50 Diskus 14 Dose] 1 puff IH BID 12/29/12 [History] Sertraline HCl 100 mg [Zoloft 100 MG] 200 mg PO DAILY 12/17/13 [History] Isosorbide Mononitrate 30 mg [Imdur 30 MG] 30 mg PO DAILY 11/05/14 [History] Tizanidine HCl 4 mg [Zanaflex 4 MG] 4 mg PO TID 01/16/15 [History] Levothyroxine Sodium 25 Mcg [Synthroid 25 Mcg] 25 mcg PO DAILY 10/17/15 [History] Quetiapine Fumarate [Seroquel] 200 mg PO QAM 10/17/15 [History] Vits W-Ca,Fe,FA(<1Mg) [] 1 each PO DAILY 10/18/15 [History] Nitroglycerin 0.4 mg Tablet [Nitrostat 0.4 MG Tablet] 0.4 mg SL UD PRN 11/15/15 [History] Albuterol Common Canister [Ventolin Common Canister] 2 puff IH Q4-6HPRN PRN 07/08/19 [History] Quetiapine Fumarate 300 mg PO QHS 07/08/19 [History] Prednisone 20 mg [Deltasone 20 mg] 20 mg PO BID 03/22/20 [History] Hx Tetanus, Diphtheria Vaccination/Date Given: Yes Hx Influenza Vaccination/Date Given: Yes Hx Pneumococcal Vaccination/Date Given: Yes Travel Risk - International Travel Have you traveled outside of the country in past 3 weeks: No - Coronavirus Screening Are you exhibiting any of the following symptoms?: No - Review of Systems Constitutional: Weakness, No Fever, No Chills Eyes: No Symptoms Ears, Nose, & Throat: No Symptoms Respiratory: Cough, Dyspnea, Dyspnea on Exertion (SCOTT), Wheezing Cardiac: No Chest Pain, No Edema, No Syncope Abdominal/Gastrointestinal: No Abdominal Pain, No Nausea, No Vomiting, No Diarrhea Genitourinary Symptoms: No Dysuria Musculoskeletal: No Back Pain, No Neck Pain Skin: No Rash Neurological: No Dizziness, No Focal Weakness, No Sensory Changes Psychological: No Symptoms Endocrine: No Symptoms All Other Systems: Reviewed and Negative - Past Medical History Pertinent Past Medical History: Yes Neurological History: Migraines ENT History: No Pertinent History Cardiac History: Congestive Heart Failure, Coronary Artery Disease, High Cholesterol Respiratory History: Asthma, Bronchitis, COPD, Pneumonia Endocrine Medical History: Hypothyroidism Musculoskeletal History: Arthritis GI Medical History: GERD, Hernia, Polyps History: No Pertinent History Psycho-Social History: Anxiety, Bipolar, Depression Female Reproductive Disorders: Fibroids Other Medical History: 2 LEAKY VALVES. BORDERLINE PERSONALITY DISORDER, PTSD, manic depressive. bone deficiency - Past Surgical History Past Surgical History: Yes Neuro Surgical History: No Pertinent History Cardiac: Cardiac Catheterization Respiratory: No Pertinent History Gastrointestinal: Other Genitourinary: No Pertinent History Musculoskeletal: Other Female Surgical History: Section Other Surgical History: ARM SURGERY, 2 c-sections, EGD with dilitation, Colonoscopy, heart cathx2 - Social History Smoking Status: Current every day smoker How long have you smoked: 40 YEARS Exposure to second hand smoke: Yes Alcohol Use: Socially Drug Use: none Patient Lives Alone: No Significant Family History: no pertinent family hx - Nursing Vital Signs Nursing Vital Signs: Initial Vital Signs Temperature 98.0 F 03/22/20 15:23 Pulse Rate 113 H 03/22/20 15:23 Respiratory Rate 24 03/22/20 15:23 Blood Pressure 152/87 03/22/20 15:23 O2 Sat by Pulse Oximetry 99 03/22/20 15:23 Pain Scale Pain Intensity 0 - Physical Exam General Appearance: mild distress, alert Eye Exam: PERRL/EOMI Neck Exam: normal inspection, supple Respiratory Exam: respiratory distress, rhonchi, wheezing Cardiovascular/Chest Exam: normal heart sounds, regular rate/rhythm, tachycardia Abdominal/Gastrointestinal Exam: soft, No tenderness, No distention, No mass Rectal Exam: deferred Extremity Exam: non-tender, normal range of motion, normal inspection, no calf tenderness, no pedal edema Neurologic Exam: alert, oriented x 3, cooperative, 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, sensation nml, No motor deficits Skin Exam: normal color, warm, No dry SpO2 Interpretation: normal SpO2: 99 O2 Delivery: Nasal Cannula - Course Nursing assessment & vital signs reviewed: Yes EKG Interpreted by Me: Sinus Tach (110), NORMAL AXIS, NORMAL INTERVALS, NORMAL QRS - Radiology Exams Chest X-ray Interpretation: Interpreted by me, Negative (No acute changes) Ordered Tests: Active Orders 24 hr Category Date Time 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 Care 03/22/20 15:28 Active EKG-ER Only STAT Care 03/22/20 15:27 Active IV Insertion STAT Care 03/22/20 15:27 Active IV Insertion-2nd Peripheral STAT Care 03/22/20 15:38 Active Oxygen-ED Only Nasal Cannula 2 lpm Care 03/22/20 15:27 Active CHEST 2 VIEWS (PA AND LAT) Stat Exams 03/22/20 15:28 Taken BLOOD CULTURE Stat Lab 03/22/20 15:30 Received CBC W DIFF Stat Lab 03/22/20 15:30 Completed CMP Stat Lab 03/22/20 15:30 Completed MAGNESIUM Stat Lab 03/22/20 15:30 Completed Manual Differential NC Stat Lab 03/22/20 15:30 Completed NT PRO BNP Stat Lab 03/22/20 15:30 Completed PROTIME WITH INR Stat Lab 03/22/20 15:30 Completed PTT Stat Lab 03/22/20 15:30 Completed TROPONIN Q3H Lab 03/22/20 15:30 Completed TROPONIN Q3H Lab 03/22/20 18:30 Ordered TROPONIN Q3H Lab 03/22/20 21:30 Ordered TROPONIN Q3H Lab 03/23/20 00:30 Ordered TROPONIN Q3H Lab 03/23/20 03:30 Ordered Respiratory Therapy Assessment DAILY RT 03/22/20 15:45 Active Medication Summary Discontinued Medications Generic Name Dose Route Start Last Admin Trade Name Freq PRN Reason Stop Dose Admin Albuterol/Ipratropium 3 ml 03/22/20 15:33 03/22/20 16:02 Duoneb 0.5-3 Mg/3 Ml Neb IH 03/22/20 15:34 3 ml STAT ONE Administration Albuterol/Ipratropium Confirm 03/22/20 15:42 Duoneb 0.5-3 Mg/3 Ml Neb Administered 03/22/20 15:43 Dose 3 ml IH .STK-MED ONE Ceftriaxone Sodium/Dextrose 1 g in 50 mls @ 100 mls/hr 03/22/20 15:59 03/22/20 17:04 Rocephin 1 Gm-D5w 50 Ml Bag IV 03/22/20 16:28 Infused STAT ONE Infusion Ceftriaxone Sodium/Dextrose Confirm 03/22/20 16:30 Rocephin 1 Gm-D5w 50 Ml Bag Administered 03/22/20 16:31 Dose 1 g in 50 mls @ ud IV .STK-MED ONE Methylprednisolone Sodium Succinate 125 mg 03/22/20 15:33 03/22/20 15:39 Solu-Medrol 125 Mg IV 03/22/20 15:34 125 mg STAT ONE Administration Methylprednisolone Sodium Succinate Confirm 03/22/20 15:38 Solu-Medrol 125 Mg Administered 03/22/20 15:39 Dose 125 mg .ROUTE .STK-MED ONE Lab/Rad Data: Laboratory Result Diagrams 03/22/20 15:30 03/22/20 15:30 Laboratory Results 03/22/20 03/22/20 03/22/20 Range/Units 15:30 15:30 15:30 WBC (4.0-10.5) K/mm3 RBC (4.1-5.4) M/mm3 Hgb (12.0-16.0) gm/dl Hct (35-47) % MCV (78-100) fl MCH (26-32) pg MCHC (32-36) g/dl RDW (11.5-14.0) % Plt Count (150-450) K/mm3 MPV (7.5-11.0) fl Absolute Granulocytes (1.4-6.9) Segmented Neutrophils (36.0-66.0) % Band Neutrophils (0.0-2.0) % Lymphocytes (Manual) (24-44) % Hypochromia Platelet Estimate (NORMAL) RBC Morphology Polychromasia Anisocytosis PT 11.3 (9.95-12.35) SECONDS INR 1.00 (0.8-3.0) APTT 24.2 L (25.3-37.0) SECONDS Sodium 138 (137-145) mmol/L Potassium 3.9 (3.5-5.1) mmol/L Chloride 105 (98-107) mmol/L Carbon Dioxide 27 (22-30) mmol/L Anion Gap 9.3 (5-15) MEQ/L BUN 14 (7-17) mg/dL Creatinine 0.68 (0.52-1.04) mg/dL Estimated GFR > 60.0 ML/MIN Glucose 199 H (74-106) mg/dL Calcium 9.0 (8.4-10.2) mg/dL Magnesium 1.9 (1.6-2.3) mg/dL Total Bilirubin 0.20 (0.2-1.3) mg/dL AST 18 (14-36) U/L ALT 24 (0-35) U/L Alkaline Phosphatase 70 (38-126) U/L Troponin I < 0.012 (0.000-0.034) ng/mL NT-Pro-B Natriuret Pep 195 (0-900) pg/mL Serum Total Protein 6.7 (6.3-8.2) g/dL Albumin 3.4 L (3.5-5.0) g/dL 03/22/20 Range/Units 15:30 WBC 23.3 H (4.0-10.5) K/mm3 RBC 3.31 L (4.1-5.4) M/mm3 Hgb 8.3 L (12.0-16.0) gm/dl Hct 29.2 L (35-47) % MCV 88.2 (78-100) fl MCH 25.1 L (26-32) pg MCHC 28.4 L (32-36) g/dl RDW 21.5 H (11.5-14.0) % Plt Count 467 H (150-450) K/mm3 MPV 9.2 (7.5-11.0) fl Absolute Granulocytes 22.8 H (1.4-6.9) Segmented Neutrophils 91 H (36.0-66.0) % Band Neutrophils 7 H (0.0-2.0) % Lymphocytes (Manual) 2 L (24-44) % Hypochromia 1+ Platelet Estimate INCREASED (NORMAL) RBC Morphology ABNORMAL Polychromasia 1+ Anisocytosis 2+ PT (9.95-12.35) SECONDS INR (0.8-3.0) APTT (25.3-37.0) SECONDS Sodium (137-145) mmol/L Potassium (3.5-5.1) mmol/L Chloride (98-107) mmol/L Carbon Dioxide (22-30) mmol/L Anion Gap (5-15) MEQ/L BUN (7-17) mg/dL Creatinine (0.52-1.04) mg/dL Estimated GFR ML/MIN Glucose (74-106) mg/dL Calcium (8.4-10.2) mg/dL Magnesium (1.6-2.3) mg/dL Total Bilirubin (0.2-1.3) mg/dL AST (14-36) U/L ALT (0-35) U/L Alkaline Phosphatase (38-126) U/L Troponin I (0.000-0.034) ng/mL NT-Pro-B Natriuret Pep (0-900) pg/mL Serum Total Protein (6.3-8.2) g/dL Albumin (3.5-5.0) g/dL - Progress Progress: improved Air Movement: good Progress Note: 03/22/20 17:10 Basic labs, Solu-Medrol, DuoNeb, chest x-ray. Labs shows elevated leukocytosis of 23,000. However patient is on 40 mg of prednisone daily. Chest x-ray shows improvement overall especially the right upper lobe infiltrate noted on February 11. Patient with normal oxygen requirement as she would have at home at 3 L. She is comfortable on that here. Discussed with PCP Dr. Cameron who felt patient can be discharged home with her usual regimen. Discussed with patient who is in agreement with the plan. We will discharge home with Z-Bucky. Blood Culture(s) Obtained: Yes Antibiotics given: Yes Discussed with : Bandar (Advised that patient can be discharged home.) Counseled pt/family regarding: lab results, diagnosis, need for follow-up, rad results, smoking cessation - Departure Departure Disposition: Home Clinical Impression: Bronchitis, COPD (chronic obstructive pulmonary disease) Condition: Stable Critical Care Time: No Referrals: WEN CAMERON MD [Primary Care Provider] - Instructions: Chronic Obstructive Pulmonary Disease, Exacerbation of COPD (DC) Additional Instructions: Monitor symptoms closely. Continue with your home medication of prednisone and nebulizer treatments. Take new medication as prescribed. Follow-up with your PCP early next week for recheck. Return to ER if worse. Prescriptions: Azithromycin 250 mg [Zithromax 250 MG TABLET] 250 mg PO ZPACK #6 tablet
[2020-03-22] MEDS ORDERED: solu-MEDROL 125 MG ONE (15:38)
[2020-03-22 15:46] LABS: Hematocrit 29.2 % (35-47); Hemoglobin 8.3 gm/dl (12.0-16.0); Mean Cell Volume 88.2 fl (78-100); Mean Corpuscular Hemoglobin 25.1 pg (26-32); Mean Corpuscular Hgb Concent. 28.4 g/dl (32-36); Mean Platelet Volume 9.2 fl (7.5-11.0); Platelet Count 467 K/mm3 (150-450); Red Blood Count 3.31 M/mm3 (4.1-5.4); Red Cell Distribution Width 21.5 % (11.5-14.0); White Blood Count 23.3 K/mm3 (4.0-10.5)
[2020-03-22] MEDS ORDERED: ROCEPHIN 1 Gm-D5w 50 ml Bag** 1 G/50 ML IVPB IV ONE ×2 (15:59→16:30)
[2020-03-22 16:10] LABS: PROTIME 11.3 SECONDS (9.95-12.35)
[2020-03-22 16:12] LABS: PTT 24.2 SECONDS (25.3-37.0)
[2020-03-22 16:14] LABS: BAND 7 % (0.0-2.0); Lymphocytes 2 % (24-44); Neutrophils 91 % (36.0-66.0); Total Cells Counted 100
[2020-03-22 16:15] LABS: ANISOCYTOSIS 2+; Hypochromia 1+; Platelet Estimate INCREASED (NORMAL); Polychromasia 1+
[2020-03-22 16:16] LABS: Absolute Neutrophil Ct (ANC) 22.8 (1.4-6.9)
[2020-03-22 16:24] LABS: ALBUMIN 3.4 g/dL (3.5-5.0); ALKALINE PHOSPHATASE 70 U/L (38-126); ANION GAP 9.3 MEQ/L (5-15); BLOOD UREA NITROGEN 14 mg/dL (7-17); CHLORIDE 105 mmol/L (98-107); Carbon Dioxide 27 mmol/L (22-30); Creatinine 1 0.68 mg/dL (0.52-1.04); EST GLOMERULAR FILTRATION RATE > 60.0 ML/MIN; Glucose 199 mg/dL (74-106); MAGNESIUM 1.9 mg/dL (1.6-2.3); NT PRO BNP 195 pg/mL (0-900); Potassium 3.9 mmol/L (3.5-5.1); SGOT/AST 18 U/L (14-36); SGPT/ALT 24 U/L (0-35); SODIUM 138 mmol/L (137-145); Total Protein 6.7 g/dL (6.3-8.2)
[2020-03-22 17:18] VITALS: BP 128/95; PULSE 100; O2SAT 98
--- NOTE | 2020-03-22 21:30 | XRAY ---
Indication: Dyspnea. COPD. Comparison: February 12, 2020. PA/lateral chest again demonstrates patchy right lung airspace disease, right apical masslike opacity, and hiatal hernia grossly unchanged. Remaining heart and left lung unremarkable. No new cardiopulmonary abnormalities.
== END 2020-03-22 17:24 | disposition home or self-care (01) ==
LOC: ED 15:22
DX: J40 Bronchitis, not specified as acute or chronic (principal); J44.9 Chronic obstructive pulmonary disease, unspecified; Z79.899 Other long term (current) drug therapy; R05 Cough; R06.00 Dyspnea, unspecified; R06.2 Wheezing; I50.9 Heart failure, unspecified; I25.10 Atherosclerotic heart disease of native coronary artery without angina pectoris; E78.00 Pure hypercholesterolemia, unspecified; E03.9 Hypothyroidism, unspecified
CPT/HCPCS: 36000; 36415; 71046; 80053; 83735; 83880; 84484; 85025; 85610; 85730; 87040; 93005; 93041; 94640; 96365; 96374; 99284; J0696; J2930; A9270-GY

== ENCOUNTER 2020-03-28 17:09 | Emergency (ER) | payer MEDICARE ==
[2020-03-28] MEDS ORDERED: solu-MEDROL 125 MG IV ONE (17:30)
[2020-03-28] MEDS ORDERED: solu-MEDROL 125 MG ONE (17:34)
[2020-03-28] MEDS ORDERED: DUONEB 0.5-3 MG/3 ml Neb IH ONE ×2 (17:35→17:38)
--- NOTE | 2020-03-28 17:43 | ERPHSYRPT ---
- History of Present Illness Time Seen by Provider: 03/28/20 17:20 Source: patient Exam Limitations: no limitations Patient Subjective Stated Complaint: Pt was at this ER on 03/22/2020 due to SOB and was diagnoed with bronchitis, pt continues to be short of breath Triage Nursing Assessment: Pt brought to the ER by her boyfriend, hypertensive, wheezing throughout, pt stated that she was diaphoretic before arrival, pulses normal, rates pain in her medial chest as 6/10 when she coughs, skin dusky/warm/diaphoretic Physician History: This is a 64-year-old white female who has a history of CHF, COPD, coronary artery disease, chronic recurrent bronchitis, hypothyroidism, chronic anemia and continues to smoke. She has a history of bipolar disorder, depression, borderline personality disorder anxiety and PTSD. Patient was seen in this emergency department 6 days ago. She was diagnosed with bronchitis and was treated with prednisone and Z-Bucky. Patient was diagnosed with pneumonia and sepsis in January 2020 and she had a negative Covid test in January 2020. Patient does not have a index editor. Patient's primary care doctor is Dr. Cameron. Patient states that she has not felt well in several weeks. Timing/Duration: week(s) (Several), worse, other (Chronic) Severity of Dyspnea-Max: moderate Severity of Dyspnea-Current: moderate Possible Cause: frequent episodes (In the last several weeks) Associated Symptoms: anxiety, cough, wheezing Allergies/Adverse Reactions: morphine Allergy (Severe, Verified 03/28/20 17:29) Fainting oxycodone Allergy (Verified 03/28/20 17:29) Shortness of Breath Penicillins Allergy (Verified 03/28/20 17:29) Coconut Adverse Reaction (Intermediate, Verified 03/28/20 17:29) Headache omeprazole Adverse Reaction (Intermediate, Verified 03/28/20 17:29) Stomach Pain bupropion HCl [From Wellbutrin] Adverse Reaction (Mild, Verified 03/28/20 17:29) Hives Home Medications: Albuterol/Ipratropium Mdi [Combivent Inhaler] 1 puff IH Q6H 12/29/12 [History] Clonazepam 0.5 mg [Klonopin 0.5 MG] 2 mg PO BID 12/29/12 [History] Famotidine 20 mg [Pepcid 20 MG] 40 mg PO BID 12/29/12 [History] Fluticasone/Salmeterol Disc [Advair 250-50 Diskus 14 Dose] 1 puff IH BID 12/29/12 [History] Sertraline HCl 100 mg [Zoloft 100 MG] 200 mg PO DAILY 12/17/13 [History] Isosorbide Mononitrate 30 mg [Imdur 30 MG] 30 mg PO DAILY 11/05/14 [History] Tizanidine HCl 4 mg [Zanaflex 4 MG] 4 mg PO TID 01/16/15 [History] Levothyroxine Sodium 25 Mcg [Synthroid 25 Mcg] 25 mcg PO DAILY 10/17/15 [History] Quetiapine Fumarate [Seroquel] 200 mg PO QAM 10/17/15 [History] Vits W-Ca,Fe,FA(<1Mg) [] 1 each PO DAILY 10/18/15 [History] Nitroglycerin 0.4 mg Tablet [Nitrostat 0.4 MG Tablet] 0.4 mg SL UD PRN 11/15/15 [History] Albuterol Common Canister [Ventolin Common Canister] 2 puff IH Q4-6HPRN PRN 07/08/19 [History] Quetiapine Fumarate 300 mg PO QHS 07/08/19 [History] Prednisone 20 mg [Deltasone 20 mg] 20 mg PO BID 03/22/20 [History] Hx Tetanus, Diphtheria Vaccination/Date Given: Yes Hx Influenza Vaccination/Date Given: Yes Hx Pneumococcal Vaccination/Date Given: Yes Travel Risk - International Travel Have you traveled outside of the country in past 3 weeks: No - Coronavirus Screening Are you exhibiting any of the following symptoms?: No Close contact with a COVID-19 positive Pt in past 14-21 Days: No - Review of Systems Constitutional: No Symptoms Eyes: No Symptoms Ears, Nose, & Throat: No Symptoms Respiratory: Cough, Dyspnea, Wheezing Cardiac: No Symptoms Abdominal/Gastrointestinal: No Symptoms Genitourinary Symptoms: No Symptoms Musculoskeletal: No Symptoms Skin: No Symptoms Neurological: No Symptoms Psychological: No Symptoms Endocrine: No Symptoms Hematologic/Lymphatic: No Symptoms Immunological/Allergic: No Symptoms All Other Systems: Reviewed and Negative - Past Medical History Pertinent Past Medical History: Yes Neurological History: Migraines ENT History: No Pertinent History Cardiac History: Congestive Heart Failure, Coronary Artery Disease, High Cholesterol Respiratory History: Asthma, Bronchitis, COPD, Pneumonia Endocrine Medical History: Hypothyroidism Musculoskeletal History: Arthritis GI Medical History: GERD, Hernia, Polyps History: No Pertinent History Psycho-Social History: Anxiety, Bipolar, Depression Female Reproductive Disorders: Fibroids Other Medical History: 2 LEAKY VALVES. BORDERLINE PERSONALITY DISORDER, PTSD, manic depressive. bone deficiency - Past Surgical History Past Surgical History: Yes Neuro Surgical History: No Pertinent History Cardiac: Cardiac Catheterization Respiratory: No Pertinent History Gastrointestinal: Other Genitourinary: No Pertinent History Musculoskeletal: Other Female Surgical History: Section Other Surgical History: ARM SURGERY, 2 c-sections, EGD with dilitation, Colonoscopy, heart cathx2 - Social History Smoking Status: Current every day smoker How long have you smoked: 40 YEARS Exposure to second hand smoke: Yes Alcohol Use: Socially Drug Use: none Patient Lives Alone: No Significant Family History: no pertinent family hx - Female History Hx Now: No - Nursing Vital Signs Nursing Vital Signs: Initial Vital Signs Temperature 98.1 F 03/28/20 17:16 Pulse Rate 101 H 03/28/20 17:16 Respiratory Rate 25 H 03/28/20 17:16 Blood Pressure 161/88 03/28/20 17:16 O2 Sat by Pulse Oximetry 99 03/28/20 17:16 Pain Scale Pain Intensity 4 - Physical Exam General Appearance: mild distress, alert, anxiety Eye Exam: PERRL/EOMI, eyes nml inspection Neck Exam: normal inspection, non-tender, supple, full range of motion Respiratory Exam: normal breath sounds, lungs clear, respiratory distress, airway intact, No chest tenderness Cardiovascular/Chest Exam: normal heart sounds, regular rate/rhythm, normal peripheral pulses Abdominal/Gastrointestinal Exam: soft, normal bowel sounds, No tenderness Rectal Exam: not done Extremity Exam: non-tender, normal range of motion, normal inspection, normal capillary refill Neurologic Exam: alert, oriented x 3, cooperative, medical claims examiner II-XII nml as tested, normal mood/affect, nml cerebellar function, nml station & gait, sensation nml Skin Exam: normal color, warm, dry Lymphatic Exam: No adenopathy SpO2 Interpretation: normal SpO2: 99 O2 Delivery: Nasal Cannula - Course Nursing assessment & vital signs reviewed: Yes EKG Interpreted by Me: RATE ([id number]), Sinus Tach, NORMAL AXIS, NORMAL INTERVALS, NORMAL QRS, Other (No acute ischemic changes on today's EKG. There is no change from the EKG dated 03/22/2020.) Ordered Tests: Active Orders 24 hr Category Date Time Status Office Associate STAT Care 03/28/20 17:32 Active EKG-ER Only STAT Care 03/28/20 17:30 Active IV Insertion STAT Care 03/28/20 17:30 Active Oxygen-ED Only Nasal Cannula 3 lpm Care 03/28/20 17:30 Active Pulse Oximetry (ED) STAT Care 03/28/20 17:30 Active CHEST 1 VIEW (PORTABLE) Stat Exams 03/28/20 17:31 Taken BLOOD CULTURE Stat Lab 03/28/20 17:57 Received CBC W DIFF Stat Lab 03/28/20 17:56 Completed CMP Stat Lab 03/28/20 17:56 Completed D-DIMER QUANTITATIVE Stat Lab 03/28/20 17:56 Completed INFLUENZA A+B NIMO Stat Lab 03/28/20 17:57 Completed Lactic Acid Stat Lab 03/28/20 17:44 Completed Lactic Acid Stat Lab 03/28/20 19:47 Received Manual Differential NC Stat Lab 03/28/20 17:56 Completed NT PRO BNP Stat Lab 03/28/20 17:56 Completed PROTIME WITH INR Stat Lab 03/28/20 17:56 Completed TROPONIN Q3H Lab 03/28/20 17:58 Completed TROPONIN Q3H Lab 03/28/20 20:45 Ordered TROPONIN Q3H Lab 03/28/20 23:45 Ordered TROPONIN Q3H Lab 03/29/20 02:45 Ordered TROPONIN Q3H Lab 03/29/20 05:45 Ordered Respiratory Therapy Assessment DAILY RT 03/28/20 17:39 Active Medication Summary Discontinued Medications Generic Name Dose Route Start Last Admin Trade Name Freq PRN Reason Stop Dose Admin Albuterol/Ipratropium Confirm 03/28/20 17:35 Duoneb 0.5-3 Mg/3 Ml Neb Administered 03/28/20 17:36 Dose 3 ml IH .STK-MED ONE Albuterol/Ipratropium 3 ml 03/28/20 17:38 03/28/20 17:36 Duoneb 0.5-3 Mg/3 Ml Neb IH 03/28/20 17:39 3 ml STAT ONE Administration Methylprednisolone Sodium Succinate 125 mg 03/28/20 17:30 03/28/20 17:34 Solu-Medrol 125 Mg IV 03/28/20 17:31 125 mg STAT ONE Administration Methylprednisolone Sodium Succinate Confirm 03/28/20 17:34 Solu-Medrol 125 Mg Administered 03/28/20 17:35 Dose 125 mg .ROUTE .STK-MED ONE Lab/Rad Data: Laboratory Result Diagrams 03/28/20 17:56 03/28/20 17:56 Laboratory Results 03/28/20 03/28/20 03/28/20 Range/Units 17:58 17:57 17:56 WBC (4.0-10.5) K/mm3 RBC (4.1-5.4) M/mm3 Hgb (12.0-16.0) gm/dl Hct (35-47) % MCV (78-100) fl MCH (26-32) pg MCHC (32-36) g/dl RDW (11.5-14.0) % Plt Count (150-450) K/mm3 MPV (7.5-11.0) fl Segmented Neutrophils (36.0-66.0) % Band Neutrophils (0.0-2.0) % Lymphocytes (Manual) (24-44) % Monocytes (Manual) (0.0-12.0) % Hypochromia Platelet Estimate (NORMAL) RBC Morphology Polychromasia Poikilocytosis Anisocytosis Tear Drop Cells Schistocytes PT 10.8 (9.95-12.35) SECONDS INR 0.96 (0.8-3.0) D-Dimer 447 (215-500) ng/mL Sodium (137-145) mmol/L Potassium (3.5-5.1) mmol/L Chloride (98-107) mmol/L Carbon Dioxide (22-30) mmol/L Anion Gap (5-15) MEQ/L BUN (7-17) mg/dL Creatinine (0.52-1.04) mg/dL Estimated GFR ML/MIN Glucose (74-106) mg/dL Lactic Acid (0.4-2.0) Calcium (8.4-10.2) mg/dL Total Bilirubin (0.2-1.3) mg/dL AST (14-36) U/L ALT (0-35) U/L Alkaline Phosphatase (38-126) U/L Troponin I < 0.012 (0.000-0.034) ng/mL NT-Pro-B Natriuret Pep (0-900) pg/mL Serum Total Protein (6.3-8.2) g/dL Albumin (3.5-5.0) g/dL Influenza Type A Ag NEGATIVE (NEGATIVE) Influenza Type B Ag NEGATIVE (NEGATIVE) 03/28/20 03/28/20 03/28/20 Range/Units 17:56 17:56 17:44 WBC 12.1 H (4.0-10.5) K/mm3 RBC 3.40 L (4.1-5.4) M/mm3 Hgb 8.5 L (12.0-16.0) gm/dl Hct 29.9 L (35-47) % MCV 87.9 (78-100) fl MCH 25.0 L (26-32) pg MCHC 28.4 L (32-36) g/dl RDW 20.3 H (11.5-14.0) % Plt Count 687 H (150-450) K/mm3 MPV 9.0 (7.5-11.0) fl Segmented Neutrophils 88 H (36.0-66.0) % Band Neutrophils 1 (0.0-2.0) % Lymphocytes (Manual) 10 L (24-44) % Monocytes (Manual) 1 (0.0-12.0) % Hypochromia 2+ Platelet Estimate NORMAL (NORMAL) RBC Morphology ABNORMAL Polychromasia 1+ Poikilocytosis 1+ Anisocytosis 1+ Tear Drop Cells 1+ Schistocytes 1+ PT (9.95-12.35) SECONDS INR (0.8-3.0) D-Dimer (215-500) ng/mL Sodium 139 (137-145) mmol/L Potassium 4.1 (3.5-5.1) mmol/L Chloride 100 (98-107) mmol/L Carbon Dioxide 35 H (22-30) mmol/L Anion Gap 8.3 (5-15) MEQ/L BUN 15 (7-17) mg/dL Creatinine 0.75 (0.52-1.04) mg/dL Estimated GFR > 60.0 ML/MIN Glucose 128 H (74-106) mg/dL Lactic Acid 2.0 (0.4-2.0) Calcium 8.7 (8.4-10.2) mg/dL Total Bilirubin 0.20 (0.2-1.3) mg/dL AST 18 (14-36) U/L ALT 24 (0-35) U/L Alkaline Phosphatase 57 (38-126) U/L Troponin I (0.000-0.034) ng/mL NT-Pro-B Natriuret Pep 124 (0-900) pg/mL Serum Total Protein 6.5 (6.3-8.2) g/dL Albumin 3.6 (3.5-5.0) g/dL Influenza Type A Ag (NEGATIVE) Influenza Type B Ag (NEGATIVE) - Progress Progress: improved Air Movement: good Progress Note: 03/28/20 19:55 cxr-no acute cardiopulmonary process Medical decision making: I discussed this patient with Dr. Cameron, the patient's primary care physician. I reviewed the patient history, condition x- ray findings and EKG results as well as the results of her laboratory data. He and I both feel that this patient has COPD exacerbation. Patient does not have a index editor or index editor that she is seeing. She may benefit from this interaction. Dr. Cameron feels the patient can be discharged to home with instructions to continue her medication as prescribed. She is already on antibiotics, steroids, home oxygen therapy. She is to call his office tomorrow to make arrangements for follow-up appointment. Blood Culture(s) Obtained: Yes Antibiotics given: No Discussed with : Bandar Counseled pt/family regarding: lab results, diagnosis, need for follow-up, rad results - Departure Departure Disposition: Home Clinical Impression: COPD exacerbation, Chronic anemia Condition: Stable Critical Care Time: No Referrals: WEN CAMERON MD [Primary Care Provider] - Instructions: Chronic Obstructive Pulmonary Disease Additional Instructions: Take your medication as prescribed. Call Dr. Cameron's office tomorrow morning to make arrangements for follow-up appointment. Discussed with them further management including possible referral to index editor and index editor if indicated.
[2020-03-28 18:01] LABS: Hematocrit 29.9 % (35-47); Hemoglobin 8.5 gm/dl (12.0-16.0); Mean Cell Volume 87.9 fl (78-100); Mean Corpuscular Hgb Concent. 28.4 g/dl (32-36); Platelet Count 687 K/mm3 (150-450); Red Cell Distribution Width 20.3 % (11.5-14.0); White Blood Count 12.1 K/mm3 (4.0-10.5)
[2020-03-28 18:07] LABS: INR 0.96 (0.8-3.0); PROTIME 10.8 SECONDS (9.95-12.35)
[2020-03-28 18:20] LABS: ALBUMIN 3.6 g/dL (3.5-5.0); ALKALINE PHOSPHATASE 57 U/L (38-126); ANION GAP 8.3 MEQ/L (5-15); BLOOD UREA NITROGEN 15 mg/dL (7-17); CHLORIDE 100 mmol/L (98-107); Calcium 8.7 mg/dL (8.4-10.2); Carbon Dioxide 35 mmol/L (22-30); Creatinine 1 0.75 mg/dL (0.52-1.04); EST GLOMERULAR FILTRATION RATE > 60.0 ML/MIN; Glucose 128 mg/dL (74-106); NT PRO BNP 124 pg/mL (0-900); Potassium 4.1 mmol/L (3.5-5.1); SGOT/AST 18 U/L (14-36); SGPT/ALT 24 U/L (0-35); SODIUM 139 mmol/L (137-145); Total Protein 6.5 g/dL (6.3-8.2)
[2020-03-28 18:21] LABS: INFLUENZA A NEGATIVE (NEGATIVE); INFLUENZA B NEGATIVE (NEGATIVE)
[2020-03-28 18:58] LABS: BAND 1 % (0.0-2.0); Hypochromia 2+; Lymphocytes 10 % (24-44); Monocyte 1 % (0.0-12.0); Neutrophils 88 % (36.0-66.0); Platelet Estimate NORMAL (NORMAL); Polychromasia 1+; Total Cells Counted 100
[2020-03-28 18:59] LABS: Poikilocytosis 1+; Tear Drop Cells 1+
[2020-03-28 19:01] LABS: ANISOCYTOSIS 1+; Schistocytes 1+
[2020-03-28 19:30] VITALS: O2SAT 99
[2020-03-28 20:24] VITALS: BP 152/88; PULSE 92
--- NOTE | 2020-03-29 08:59 | XRAY ---
Indication: Short of breath. Comparison: March 22, 2020. Portable chest remains hyperinflated with clearing of previous right lung airspace disease. Grossly stable right apical masslike opacity and hiatal hernia. Heart is not enlarged. No new/acute findings.
== END 2020-03-28 20:23 | disposition home or self-care (01) ==
LOC: ED 17:09
DX: R06.02 Shortness of breath (principal); R06.2 Wheezing; J44.1 Chronic obstructive pulmonary disease with (acute) exacerbation; I10 Essential (primary) hypertension; I50.9 Heart failure, unspecified; I25.10 Atherosclerotic heart disease of native coronary artery without angina pectoris; E03.9 Hypothyroidism, unspecified; D64.9 Anemia, unspecified; F17.200 Nicotine dependence, unspecified, uncomplicated; R05 Cough; Z79.899 Other long term (current) drug therapy
CPT/HCPCS: 36000; 36415; 71045; 80053; 83605; 83880; 84484; 85025; 85379; 85610; 87040; 87400; 93005; 93041; 94640; 94760; 96374; 99284; J2930; A9270-GY

== ENCOUNTER 2020-04-08 13:00 | Inpatient (IN) | payer MEDICARE ==
[2020-04-08] MEDS ORDERED: DUONEB 0.5-3 MG/3 ml Neb IH ONE ×2 (13:04→13:37)
[2020-04-08] MEDS ORDERED: PROVENTIL Solution 2.5 MG/0.5 ML IH ONE (13:12)
[2020-04-08] MEDS ORDERED: Sodium Chloride 3 ML UD NEBULES IH ONE (13:13)
[2020-04-08] MEDS ORDERED: ROCEPHIN 1 Gm-D5w 50 ml Bag** 1 G/50 ML IVPB IV STA (13:14)
[2020-04-08] MEDS ORDERED: ZITHROMAX IV 500 MG*** 500 MG in Sodium Chloride 0.9% 250 ML 250 ML IV ONE (13:14)
--- NOTE | 2020-04-08 13:15 | ERPHSYRPT ---
- History of Present Illness Time Seen by Provider: 04/08/20 13:06 Source: patient, EMS Exam Limitations: no limitations Physician History: The patient is a 64-year-old female with a past medical history significant for COPD, ongoing cigarette smoking, hypothyroidism, and anemia presents with a chief complaint of breath and respiratory failure. Shortness of breath started 7 days ago and she is also had a productive cough in which she is coughing up brown to dark-colored sputum. She denies fever, chills and reportedly quit smoking 8 days ago. She uses supplemental oxygen, 3 L/min via nasal cannula at baseline. She has had multiple admissions for COPD exacerbations at this facility. She talk to her primary care provider today who instructed her to come to the emergency department for further evaluation. Her reportedly was driving her to the hospital but her respiratory distress became so severe that EMS had to be called and met the patient in her POV. They noticed that she was in significant distress and speaking fragmented sentences and was tachypneic. They administered 3 albuterol nebulizers in addition to starting the patient on CPAP prior to arrival to the emergency department. EMS also administered 125 mg of Solu-Medrol IV. By the time the patient arrived to the emergency department her symptoms reportedly improved. Allergies/Adverse Reactions: morphine Allergy (Severe, Verified 04/08/20 13:14) Fainting oxycodone Allergy (Verified 04/08/20 13:14) Shortness of Breath Penicillins Allergy (Verified 04/08/20 13:14) Coconut Adverse Reaction (Intermediate, Verified 04/08/20 13:14) Headache omeprazole Adverse Reaction (Intermediate, Verified 04/08/20 13:14) Stomach Pain bupropion HCl [From Wellbutrin] Adverse Reaction (Mild, Verified 04/08/20 13:14) Hives Home Medications: Albuterol/Ipratropium Mdi [Combivent Inhaler] 1 puff IH Q6H 12/29/12 [History] Clonazepam 0.5 mg [Klonopin 0.5 MG] 2 mg PO BID 12/29/12 [History] Famotidine 20 mg [Pepcid 20 MG] 40 mg PO BID 12/29/12 [History] Fluticasone/Salmeterol Disc [Advair 250-50 Diskus 14 Dose] 1 puff IH BID 12/29/12 [History] Sertraline HCl 100 mg [Zoloft 100 MG] 200 mg PO DAILY 12/17/13 [History] Isosorbide Mononitrate 30 mg [Imdur 30 MG] 30 mg PO DAILY 11/05/14 [History] Tizanidine HCl 4 mg [Zanaflex 4 MG] 4 mg PO TID 01/16/15 [History] Levothyroxine Sodium 25 Mcg [Synthroid 25 Mcg] 25 mcg PO DAILY 10/17/15 [History] Quetiapine Fumarate [Seroquel] 200 mg PO QAM 10/17/15 [History] Vits W-Ca,Fe,FA(<1Mg) [] 1 each PO DAILY 10/18/15 [History] Nitroglycerin 0.4 mg Tablet [Nitrostat 0.4 MG Tablet] 0.4 mg SL UD PRN 11/15/15 [History] Albuterol Common Canister [Ventolin Common Canister] 2 puff IH Q4-6HPRN PRN 07/08/19 [History] Quetiapine Fumarate 300 mg PO QHS 07/08/19 [History] Prednisone 20 mg [Deltasone 20 mg] 20 mg PO BID 03/22/20 [History] Hx Tetanus, Diphtheria Vaccination/Date Given: Yes Hx Influenza Vaccination/Date Given: Yes Hx Pneumococcal Vaccination/Date Given: Yes - Review of Systems Constitutional: No Fever, No Chills Respiratory: Cough, Dyspnea, Dyspnea on Exertion (SCOTT), Wheezing Cardiac: No Chest Pain, No Palpitations Abdominal/Gastrointestinal: No Abdominal Pain, No Nausea, No Vomiting Musculoskeletal: No Symptoms Skin: No Symptoms Neurological: No Symptoms Psychological: No Symptoms Endocrine: No Symptoms Hematologic/Lymphatic: No Symptoms All Other Systems: Reviewed and Negative - Past Medical History Pertinent Past Medical History: Yes Neurological History: Migraines ENT History: No Pertinent History Cardiac History: Congestive Heart Failure, Coronary Artery Disease, High Cholesterol Respiratory History: Asthma, Bronchitis, COPD, Pneumonia Endocrine Medical History: Hypothyroidism Musculoskeletal History: Arthritis GI Medical History: GERD, Hernia, Polyps History: No Pertinent History Psycho-Social History: Anxiety, Bipolar, Depression Female Reproductive Disorders: Fibroids Other Medical History: 2 LEAKY VALVES. BORDERLINE PERSONALITY DISORDER, PTSD, manic depressive. bone deficiency - Past Surgical History Past Surgical History: Yes Neuro Surgical History: No Pertinent History Cardiac: Cardiac Catheterization Respiratory: No Pertinent History Gastrointestinal: Other Genitourinary: No Pertinent History Musculoskeletal: Other Female Surgical History: Section Other Surgical History: ARM SURGERY, 2 c-sections, EGD with dilitation, Colonoscopy, heart cathx2 - Social History Smoking Status: Current every day smoker How long have you smoked: 40 YEARS Exposure to second hand smoke: Yes Alcohol Use: Socially Drug Use: none Patient Lives Alone: No Significant Family History: no pertinent family hx - Nursing Vital Signs Nursing Vital Signs: Initial Vital Signs Temperature 96.6 F 04/08/20 13:01 Pulse Rate 129 H 04/08/20 13:01 Respiratory Rate 28 H 04/08/20 13:01 Blood Pressure 124/67 04/08/20 13:01 O2 Sat by Pulse Oximetry 100 04/08/20 13:01 Pain Scale Pain Intensity 0 - Physical Exam General Appearance: moderate distress, alert Eye Exam: PERRL/EOMI, No scleral icterus, No photophobia Ears, Nose, Throat Exam: normal ENT inspection Neck Exam: normal inspection, supple, No non-tender Respiratory Exam: respiratory distress, airway intact, diminished breath sounds, wheezing Cardiovascular Exam: tachycardia, capillary refill <2 sec, No murmur, No friction rub, No gallop, No edema Gastrointestinal/Abdomen Exam: soft, No distention, No mass, No guarding, No ecchymosis Pelvic Exam: not done Rectal Exam: deferred Back Exam: normal inspection Extremity Exam: normal inspection, No calf tenderness, No swelling, No tenderness Neurologic Exam: alert, oriented x 3, other (Appears anxious) Skin Exam: normal color SpO2 Interpretation: normal O2 Delivery: BiPap/CPAP - Course Nursing assessment & vital signs reviewed: Yes EKG Interpreted by Me: Sinus Tach, NORMAL INTERVALS, NORMAL QRS, Other (Sinus tachycardia, vent rate 131 bpm, MI interval 133 ms, QRS duration 75 ms, QT/QTc 324/478 ms) - Radiology Exams Chest X-ray Interpretation: Reviewed by me, Pneumonia (Bilateral infiltrates suggestive of PNA) - CT Exams Chest CT Interpretation: Other (No PE. Worsening diffuse right lung and new diffuse left lung patchy airspace disease without consolidation /large effusion) Ordered Tests: Active Orders 24 hr Category Date Time Status [facility] STAT Care 04/08/20 13:11 Active EKG-ER Only STAT Care 04/08/20 13:10 Active NPO (ED) STAT Care 04/08/20 13:10 Active CHEST 1 VIEW (PORTABLE) Stat Exams 04/08/20 13:10 Completed CHEST WITH CONTRAST [CT] Stat Exams 04/08/20 13:51 Completed BLOOD CULTURE Stat Lab 04/08/20 13:20 Received BMP Stat Lab 04/08/20 13:15 Completed CBC W DIFF Stat Lab 04/08/20 13:15 Results CULTURE,SPUTUM Stat Lab 04/08/20 13:11 Ordered CULTURE,URINE Stat Lab 04/08/20 13:10 Ordered D-DIMER QUANTITATIVE Stat Lab 04/08/20 13:15 Completed Lactic Acid Stat Lab 04/08/20 13:10 Completed Lactic Acid Stat Lab 04/08/20 15:28 Received Manual Differential NC Stat Lab 04/08/20 13:15 Results NT PRO BNP Stat Lab 04/08/20 13:15 Completed Pathologist Review Stat Lab 04/08/20 13:15 Results TROPONIN Q3H Lab 04/08/20 13:15 Completed TROPONIN Q3H Lab 04/08/20 16:15 Ordered TROPONIN Q3H Lab 04/08/20 19:15 Ordered TROPONIN Q3H Lab 04/08/20 22:15 Ordered TROPONIN Q3H Lab 04/09/20 01:15 Ordered UA W/RFX UR CULTURE Stat Lab 04/08/20 13:10 Ordered VENOUS BLOOD GAS Stat Lab 04/08/20 13:10 Completed BiPap/CPAP STAT RT 04/08/20 13:10 Active Respiratory Therapy Assessment DAILY RT 04/08/20 13:43 Active Transfer Order Routine Transfer 04/08/20 Ordered Medication Summary Generic Name Dose Route Start Last Admin Trade Name Freq PRN Reason Stop Dose Admin Azithromycin / Sodium Chloride 250 mls @ 125 mls/hr 04/08/20 13:14 IV 04/08/20 15:13 STAT ONE Discontinued Medications Generic Name Dose Route Start Last Admin Trade Name Freq PRN Reason Stop Dose Admin Albuterol Sulfate Confirm 04/08/20 13:12 Proventil Solution 2.5 Mg/0.5 Ml Administered 04/08/20 13:13 Dose 10 mg IH .STK-MED ONE Albuterol Sulfate 10 mg 04/08/20 13:17 04/08/20 13:36 Ventolin 20 Ml Bottle IH 04/08/20 13:18 10 mg STAT ONE Administration Albuterol/Ipratropium 3 ml 04/08/20 13:37 04/08/20 13:38 Duoneb 0.5-3 Mg/3 Ml Neb IH 04/08/20 13:38 3 ml STAT ONE Administration Ceftriaxone Sodium/Dextrose 1 g in 50 mls @ 100 mls/hr 04/08/20 13:14 04/08/20 14:22 Rocephin 1 Gm-D5w 50 Ml Bag IV 04/08/20 13:43 Infused STAT STA Infusion Ceftriaxone Sodium/Dextrose Confirm 04/08/20 13:26 Rocephin 1 Gm-D5w 50 Ml Bag Administered 04/08/20 13:27 Dose 1 g in 50 mls @ ud IV .STK-MED ONE Lactated Ringer's 1,000 mls @ 999 mls/hr 04/08/20 14:50 Lactated Ringers IV 04/08/20 15:50 .Q1H1M ONE Lactated Ringer's 1,000 mls @ 999 mls/hr 04/08/20 14:51 Lactated Ringers IV 04/08/20 15:51 .Q1H1M ONE Sodium Chloride Confirm 04/08/20 13:13 Sodium Chloride 3 Ml Ud Nebules Administered 04/08/20 13:14 Dose 6 ml IH .STK-MED ONE Lab/Rad Data: Laboratory Result Diagrams 04/08/20 13:15 04/08/20 13:15 Laboratory Results 04/08/20 04/08/20 04/08/20 Range/Units 13:40 13:40 13:15 WBC (4.0-10.5) K/mm3 RBC (4.1-5.4) M/mm3 Hgb (12.0-16.0) gm/dl Hct (35-47) % MCV (78-100) fl MCH (26-32) pg MCHC (32-36) g/dl RDW (11.5-14.0) % Plt Count (150-450) K/mm3 MPV (7.5-11.0) fl Segmented Neutrophils (36.0-66.0) % Band Neutrophils (0.0-2.0) % Lymphocytes (Manual) (24-44) % Monocytes (Manual) (0.0-12.0) % Nucleated RBCs % Hypochromia Toxic Granulation Platelet Estimate (NORMAL) RBC Morphology Polychromasia Anisocytosis Microcytosis Smear Path Review D-Dimer (215-500) ng/mL pO2/FiO2 Ratio % VBG pH (7.32-7.42) VBG pCO2 at Pat Temp (42-55) mm/Hg VBG pO2 at Pat Temp (25-40) mm/Hg VBG HCO3 (22-28) meq/L VBG O2 Sat (Paulo) (95-100) VBG Base Excess (-2.0-2.0) VBG Hemoglobin VBG Carboxyhemoglobin (0.0-6.9) % T HGB POC Potassium (3.5-5.1) Sodium (137-145) mmol/L Potassium (3.5-5.1) mmol/L Chloride (98-107) mmol/L Carbon Dioxide (22-30) mmol/L Anion Gap (5-15) MEQ/L BUN (7-17) mg/dL Creatinine (0.52-1.04) mg/dL Estimated GFR ML/MIN Glucose (74-106) mg/dL Lactic Acid (0.4-2.0) Calcium (8.4-10.2) mg/dL Troponin I 0.024 (0.000-0.034) ng/mL NT-Pro-B Natriuret Pep (0-900) pg/mL ABO Group A Rh Factor POSITIVE Antibody Screen NEGATIVE (NEGATIVE) Crossmatch COMPATIBLE COMPATIBLE (COMPATIBLE) 04/08/20 04/08/20 04/08/20 Range/Units 13:15 13:15 13:15 WBC 30.5 H* (4.0-10.5) K/mm3 RBC 3.15 L (4.1-5.4) M/mm3 Hgb 7.5 L (12.0-16.0) gm/dl Hct 26.9 L (35-47) % MCV 85.4 (78-100) fl MCH 23.8 L (26-32) pg MCHC 27.9 L (32-36) g/dl RDW 18.2 H (11.5-14.0) % Plt Count 602 H (150-450) K/mm3 MPV 8.9 (7.5-11.0) fl Segmented Neutrophils 84 H (36.0-66.0) % Band Neutrophils 10 H (0.0-2.0) % Lymphocytes (Manual) 4 L (24-44) % Monocytes (Manual) 2 (0.0-12.0) % Nucleated RBCs 1 % Hypochromia 1+ Toxic Granulation 2+ Platelet Estimate INCREASED (NORMAL) RBC Morphology ABNORMAL Polychromasia 1+ Anisocytosis 1+ Microcytosis 1+ Smear Path Review Pending D-Dimer 1521 H* (215-500) ng/mL pO2/FiO2 Ratio % VBG pH (7.32-7.42) VBG pCO2 at Pat Temp (42-55) mm/Hg VBG pO2 at Pat Temp (25-40) mm/Hg VBG HCO3 (22-28) meq/L VBG O2 Sat (Paulo) (95-100) VBG Base Excess (-2.0-2.0) VBG Hemoglobin VBG Carboxyhemoglobin (0.0-6.9) % T HGB POC Potassium (3.5-5.1) Sodium 135 L (137-145) mmol/L Potassium 3.8 (3.5-5.1) mmol/L Chloride 99 (98-107) mmol/L Carbon Dioxide 31 H (22-30) mmol/L Anion Gap 9.1 (5-15) MEQ/L BUN 16 (7-17) mg/dL Creatinine 0.99 (0.52-1.04) mg/dL Estimated GFR > 60.0 ML/MIN Glucose 95 (74-106) mg/dL Lactic Acid (0.4-2.0) Calcium 9.2 (8.4-10.2) mg/dL Troponin I (0.000-0.034) ng/mL NT-Pro-B Natriuret Pep 337 (0-900) pg/mL ABO Group Rh Factor Antibody Screen (NEGATIVE) Crossmatch (COMPATIBLE) 04/08/20 Range/Units 13:10 WBC (4.0-10.5) K/mm3 RBC (4.1-5.4) M/mm3 Hgb (12.0-16.0) gm/dl Hct (35-47) % MCV (78-100) fl MCH (26-32) pg MCHC (32-36) g/dl RDW (11.5-14.0) % Plt Count (150-450) K/mm3 MPV (7.5-11.0) fl Segmented Neutrophils (36.0-66.0) % Band Neutrophils (0.0-2.0) % Lymphocytes (Manual) (24-44) % Monocytes (Manual) (0.0-12.0) % Nucleated RBCs % Hypochromia Toxic Granulation Platelet Estimate (NORMAL) RBC Morphology Polychromasia Anisocytosis Microcytosis Smear Path Review D-Dimer (215-500) ng/mL pO2/FiO2 Ratio 60.0 % VBG pH 7.48 H (7.32-7.42) VBG pCO2 at Pat Temp 41 L (42-55) mm/Hg VBG pO2 at Pat Temp 42 H (25-40) mm/Hg VBG HCO3 30.5 H* (22-28) meq/L VBG O2 Sat (Paulo) 73.7 L (95-100) VBG Base Excess 6.4 H (-2.0-2.0) VBG Hemoglobin 8.0 VBG Carboxyhemoglobin 1.6 (0.0-6.9) % T HGB POC Potassium 3.6 (3.5-5.1) Sodium (137-145) mmol/L Potassium (3.5-5.1) mmol/L Chloride (98-107) mmol/L Carbon Dioxide (22-30) mmol/L Anion Gap (5-15) MEQ/L BUN (7-17) mg/dL Creatinine (0.52-1.04) mg/dL Estimated GFR ML/MIN Glucose (74-106) mg/dL Lactic Acid 2.2 H (0.4-2.0) Calcium (8.4-10.2) mg/dL Troponin I (0.000-0.034) ng/mL NT-Pro-B Natriuret Pep (0-900) pg/mL ABO Group Rh Factor Antibody Screen (NEGATIVE) Crossmatch (COMPATIBLE) - Progress Progress: improved Progress Note: 04/08/20 13:50 Is hemoglobin on the panel was 7.5 and her baseline is just above 9. Have ordered 2 units of blood to be administered each unit be given over 2 hours. 04/08/20 14:10 Patient was reassessed and appears to be much more comfortable on continuous albuterol while on BiPAP. She is currently can be taken down to CT at this time to get a CT of her chest to rule out PE. 04/08/20 14:13 The patient appears to be much more comfortable and has been on BiPAP for nearly an hour and her albuterol continuous neb x1 hour has completed. I will decrease the patient's support to a nasal cannula to trial her on this therapy given that she looks much more comfortable. 04/08/20 15:02 At a bedside commode after getting back from CT trying to provide us with a urine sample. She states she is feeling better. Discussed with Dr.: Other (Dr. Cameron. Okay with going to the med-surg unit given drastic improvement ) Will see patient in: hospital (full admit) Counseled pt/family regarding: lab results, diagnosis, rad results, smoking cessation - Departure Departure Disposition: In-patient Admission Clinical Impression: COPD exacerbation, Normocytic anemia, Symptomatic anemia, Bilateral pneumonia, Severe sepsis, Acute respiratory failure, Smoker Condition: Fair Critical Care Time: Yes Critical Care Time(excluding separately billable procedures): Critical 30-74 mins (45 minutes) Referrals: WEN CAMERON MD [Primary Care Provider] - Instructions: Chronic Obstructive Pulmonary Disease
[2020-04-08] MEDS ORDERED: VENTOLIN 20 ML BOTTLE IH ONE (13:17)
[2020-04-08] MEDS ORDERED: ROCEPHIN 1 Gm-D5w 50 ml Bag** 1 G/50 ML IVPB IV ONE (13:26)
[2020-04-08 13:27] LABS: Lactic Acid 2.2 (0.4-2.0); VBG BASE EXCESS 6.4 (-2.0-2.0); VBG CARBOXYHEMOGLOBIN 1.6 % T HGB (0.0-6.9); VBG HCO3- 30.5 meq/L (22-28); VBG O2 SATURATION 73.7 (95-100); VBG POTASSIUM 3.6 (3.5-5.1); VBG pH 7.48 (7.32-7.42)
[2020-04-08 13:30] LABS: Hematocrit 26.9 % (35-47); Hemoglobin 7.5 gm/dl (12.0-16.0); Mean Cell Volume 85.4 fl (78-100); Mean Corpuscular Hemoglobin 23.8 pg (26-32); Mean Corpuscular Hgb Concent. 27.9 g/dl (32-36); Mean Platelet Volume 8.9 fl (7.5-11.0); Platelet Count 602 K/mm3 (150-450); Red Blood Count 3.15 M/mm3 (4.1-5.4); Red Cell Distribution Width 18.2 % (11.5-14.0)
--- NOTE | 2020-04-08 13:35 | XRAY ---
Indication: Short of breath. Dyspnea. Comparison: March 28, 2020. Portable chest demonstrates new hazy bilateral patchy airspace disease without consolidation/large effusion. Heart is not enlarged with stable hiatal hernia. Bony thorax intact.
[2020-04-08 13:44] LABS: White Blood Count 30.5 K/mm3 (4.0-10.5)
[2020-04-08 14:02] LABS: ANION GAP 9.1 MEQ/L (5-15); BLOOD UREA NITROGEN 16 mg/dL (7-17); CHLORIDE 99 mmol/L (98-107); Calcium 9.2 mg/dL (8.4-10.2); Carbon Dioxide 31 mmol/L (22-30); Creatinine 1 0.99 mg/dL (0.52-1.04); EST GLOMERULAR FILTRATION RATE > 60.0 ML/MIN; Glucose 95 mg/dL (74-106); NT PRO BNP 337 pg/mL (0-900); Potassium 3.8 mmol/L (3.5-5.1); SODIUM 135 mmol/L (137-145)
[2020-04-08 14:43] LABS: ABO TYPING A; Antibody Screen NEGATIVE (NEGATIVE); RH TYPING POSITIVE
--- NOTE | 2020-04-08 14:44 | XRAY ---
Indication: Cough, short of breath, chest pain, and elevated d-dimer. Multiple contiguous axial images obtained through the chest using 100 cc Isovue 370 contrast and PE protocol. Comparison: February 12, 2020. There is again suboptimal opacification of the pulmonary arteries limiting evaluation of the more distal lobar and segmental branches. No central pulmonary embolus. Heart is not enlarged. Aorta is normal in course and caliber without aneurysm/dissection. No pathologic mediastinal/hilar lymphadenopathy. Stable moderate sized hiatal hernia with partial intrathoracic stomach. Lungs lungs demonstrates worsening diffuse right lung and new diffuse left lung patchy airspace disease without consolidation/large effusion. Previous right upper lobe masslike opacity has markedly improved with minimal fibrosis/scarring. Stable diffuse pulmonary emphysema. Bony thorax intact. Limited upper abdomen including adrenal glands are unremarkable. Impression: 1. Again pulmonary embolus evaluation limited due to suboptimal contrast opacification. No obvious central pulmonary embolus. 2. Worsening diffuse right lung and new diffuse left lung patchy airspace disease without consolidation/large effusion. 3. Stable pulmonary emphysema and hiatal hernia with partial intrathoracic stomach.
[2020-04-08 14:45] LABS: CROSS MATCH (PRBC) COMPATIBLE (COMPATIBLE)
[2020-04-08] MEDS ORDERED: Lactated Ringers 1,000 ML IV ONE ×2 (14:50→14:51)
[2020-04-08 15:06] LABS: BAND 10 % (0.0-2.0); Lymphocytes 4 % (24-44); Monocyte 2 % (0.0-12.0); Neutrophils 84 % (36.0-66.0); Nucleated Red Blood Cell 1 %; Total Cells Counted 100
[2020-04-08 15:07] LABS: ANISOCYTOSIS 1+; Hypochromia 1+; Microcytosis 1+; Polychromasia 1+; Toxic Granulation 2+
[2020-04-08 15:08] LABS: Platelet Estimate INCREASED (NORMAL)
[2020-04-08] MEDS ORDERED: BABY ASPIRIN 81 MG CHEW PO ONE (16:31)
[2020-04-08] MEDS ORDERED: Sodium Chloride 0.9% 500 ML 500 ML IV ONE (18:13)
[2020-04-08] MEDS: Sodium Chloride 0.9% 500 ML 500 ML IV SCH (18:45)
[2020-04-08 18:54] LABS: Appearance CLEAR (CLEAR); Bilirubin NEGATIVE (NEGATIVE); Blood NEGATIVE Ery/ul (0-5); Glucose NEGATIVE (NEGATIVE); Ketones NEGATIVE (NEGATIVE); Leukocyte Esterase NEGATIVE (NEGATIVE); Mucus SLIGHT /HPF (NEGATIVE); Nitrite NEGATIVE (NEGATIVE); Protein,Urine Dip NEGATIVE (Negative); Urobilinogen NEGATIVE mg/dL (0-1)
[2020-04-08] MEDS: Advair Hfa 115/21 Common canister IH SCH (19:16)
[2020-04-08] MEDS: DUONEB 0.5-3 MG/3 ml Neb IH SCH ×2 (19:16→23:00)
[2020-04-08] MEDS: solu-MEDROL 125 MG IV SCH (19:52)
[2020-04-08] MEDS ORDERED: Nitrostat 0.4 MG Tablet SL PRN (20:51)
[2020-04-08] MEDS ORDERED: Neurontin 400 MG ONE (21:00)
[2020-04-08] MEDS ORDERED: KLONOPIN ONE (21:00)
[2020-04-08] MEDS: ENOXAPARIN SODIUM SQ SCH (21:10)
[2020-04-08] MEDS: Zanaflex 4 MG PO SCH (21:10)
[2020-04-08] MEDS: Seroquel 100 MG PO SCH (21:11)
[2020-04-08] MEDS: KLONOPIN PO SCH (21:15)
[2020-04-08] MEDS ORDERED: Neurontin 400 MG PO ONE (21:30)
[2020-04-08] MEDS ORDERED: Pepcid 20 MG PO SCH (22:00)
[2020-04-08] MEDS ORDERED: NEURONTIN 300 MG PO SCH (22:00)
[2020-04-08] MEDS ORDERED: Neurontin 400 MG PO SCH ×2 (22:00)
[2020-04-08] MEDS ORDERED: DELTASONE 20 MG PO SCH (22:00)
[2020-04-08] MEDS ORDERED: Klonopin 0.5 MG PO SCH (22:00)
[2020-04-09] MEDS: solu-MEDROL 125 MG IV SCH ×4 (00:59→18:04)
[2020-04-09] MEDS: DUONEB 0.5-3 MG/3 ml Neb IH SCH ×6 (03:17→22:43)
[2020-04-09 03:43] LABS: Hematocrit 29.3 % (35-47); Hemoglobin 8.8 gm/dl (12.0-16.0)
[2020-04-09 04:14] LABS: BLOOD UREA NITROGEN 19 mg/dL (7-17); CHLORIDE 100 mmol/L (98-107); Calcium 8.8 mg/dL (8.4-10.2); Carbon Dioxide 32 mmol/L (22-30); Creatinine 1 0.72 mg/dL (0.52-1.04); EST GLOMERULAR FILTRATION RATE > 60.0 ML/MIN; Glucose 166 mg/dL (74-106); SODIUM 133 mmol/L (137-145)
[2020-04-09 05:25] LABS: Hematocrit 29.6 % (35-47); Hemoglobin 8.7 gm/dl (12.0-16.0); Mean Cell Volume 87.1 fl (78-100); Mean Corpuscular Hemoglobin 25.6 pg (26-32); Mean Corpuscular Hgb Concent. 29.4 g/dl (32-36); Mean Platelet Volume 9.4 fl (7.5-11.0); Platelet Count 483 K/mm3 (150-450); Red Cell Distribution Width 17.3 % (11.5-14.0)
[2020-04-09 05:45] LABS: White Blood Count 27.6 K/mm3 (4.0-10.5)
[2020-04-09] MEDS: Advair Hfa 115/21 Common canister IH SCH ×2 (07:00→18:34)
--- NOTE | 2020-04-09 09:07 | PCM.HP ---
History of Present Illness - Chief Complaint Chief Complaint: severe shortness of breath for 2 days History of Present Illness: is a 64 year old female.with a past medical history significant for COPD, ongoing cigarette smoking, hypothyroidism, and anemia presents with a chief complaint of breath and respiratory failure. Shortness of breath started 7 days ago and she is also had a productive cough in which she is coughing up brown to dark-colored sputum. She denies fever, chills and reportedly quit smoking 8 days ago. She uses supplemental oxygen, 3 L/min via nasal cannula at baseline. She has had multiple admissions for COPD exacerbations at this facility. She talk to her primary care provider today who instructed her to come to the emergency department for further evaluation. Her reportedly was driving her to the hospital but her respiratory distress became so severe that EMS had to be called and met the patient in her POV. They noticed that she was in significant distress and speaking fragmented sentences and was tachypneic. They administered 3 albuterol nebulizers in addition to starting the patient on CPAP prior to arrival to the emergency department. EMS also administered 125 mg of Solu-Medrol IV. By the time the patient arrived to the emergency department her symptoms reportedly improved. - Review of Systems Constitutional: No Fever, No Chills Eyes: No Symptoms Ears, Nose, & Throat: No Symptoms Respiratory: Orthopnea, Short Of Breath, Wheezing, No Cough Cardiac: No Chest Pain, No Edema, No Syncope Abdominal/Gastrointestinal: No Abdominal Pain, No Nausea, No Vomiting, No Diarrhea Genitourinary Symptoms: No Dysuria Musculoskeletal: No Back Pain, No Neck Pain Skin: No Rash Neurological: No Dizziness, No Focal Weakness, No Sensory Changes Psychological: No Symptoms Endocrine: No Symptoms Hematologic/Lymphatic: No Symptoms Immunological/Allergic: No Symptoms Medications & Allergies Home Medications: Home Medication List Albuterol/Ipratropium Mdi [Combivent Inhaler] 1 puff IH Q6H 12/29/12 [History Confirmed 04/08/20] Clonazepam 0.5 mg [Klonopin 0.5 MG] 2 mg PO BID 12/29/12 [History Confirmed 04/08/20] Famotidine 20 mg [Pepcid 20 MG] 40 mg PO BID 12/29/12 [History Confirmed 04/08/20] Fluticasone/Salmeterol Disc [Advair 250-50 Diskus 14 Dose] 1 puff IH BID 12/29/12 [History Confirmed 04/08/20] Sertraline HCl 100 mg [Zoloft 100 MG] 200 mg PO DAILY 12/17/13 [History Confirmed 04/08/20] Isosorbide Mononitrate 30 mg [Imdur 30 MG] 30 mg PO DAILY 11/05/14 [History Confirmed 04/08/20] Tizanidine HCl 4 mg [Zanaflex 4 MG] 4 mg PO TID 01/16/15 [History Confirmed 04/08/20] Levothyroxine Sodium 25 Mcg [Synthroid 25 Mcg] 25 mcg PO DAILY 10/17/15 [History Confirmed 04/08/20] Quetiapine Fumarate [Seroquel] 200 mg PO QAM 10/17/15 [History Confirmed 04/08/20] Vits W-Ca,Fe,FA(<1Mg) [] 1 each PO DAILY 10/18/15 [History Confirmed 04/08/20] Nitroglycerin 0.4 mg Tablet [Nitrostat 0.4 MG Tablet] 0.4 mg SL UD PRN 11/15/15 [History Confirmed 04/08/20] Albuterol Common Canister [Ventolin Common Canister] 2 puff IH Q4-6HPRN PRN 07/08/19 [History Confirmed 04/08/20] Quetiapine Fumarate 300 mg PO QHS 07/08/19 [History Confirmed 04/08/20] Prednisone 20 mg [Deltasone 20 mg] 20 mg PO BID 03/22/20 [History Confirmed 04/08/20] Gabapentin 600 mg PO DAILY 04/08/20 [History Confirmed 04/08/20] Gabapentin [Neurontin] 2,400 mg PO HS 04/08/20 [History Confirmed 04/08/20] Allergies/Adverse Reactions: Allergies Allergy/AdvReac Type Severity Reaction Status Date / Time morphine Allergy Severe Fainting Verified 04/08/20 13:14 oxycodone Allergy Shortness Verified 04/08/20 13:14 of Breath Penicillins Allergy Verified 04/08/20 13:14 oxymorphone AdvReac Severe Fainting Verified 04/08/20 17:48 [place] AdvReac Intermediate Headache Verified 04/08/20 13:14 omeprazole AdvReac Intermediate Stomach Verified 04/08/20 13:14 Pain bupropion HCl AdvReac Mild Hives Verified 04/08/20 13:14 [From Wellbutrin] - Past Medical History Past Medical History: Yes Neurological History: Migraines ENT History: No Pertinent History Cardiac History: Congestive Heart Failure, Coronary Artery Disease, High Cholesterol Respiratory History: Asthma, Bronchitis, COPD, Pneumonia Endocrine Medical History: Hypothyroidism Musculoskelatal History: Arthritis GI Medical History: GERD, Hernia, Polyps History: No Pertinent History Pyscho-Social History: Anxiety, Bipolar, Depression Reproductive Disorders: Fibroids Comment: 2 LEAKY VALVES. BORDERLINE PERSONALITY DISORDER, PTSD, manic depressive. bone deficiency - Female History Hx Last Menstrual Period: post - Past Surgical History Past Surgical History: Yes Neuro Surgical History: No Pertinent History Cardiac History: Cardiac Catheterization Respiratory Surgery: No Pertinent History GI Surgical History: Other Genitourinary Surgical Hx: No Pertinent History Musculskeletal Surgical Hx: Other Female Surgical History: Section Other Surgical History: ARM SURGERY, 2 c-sections, EGD with dilitation, Colonoscopy, heart cathx2 - Social History Smoking Status: Former smoker How long have you smoked: 40 YEARS Exposure to second hand smoke: No Alcohol: None Drug Use: none Significant Family History: no pertinent family hx - Physical Exam Vital Signs: Vital Signs - 24 hr Temp Pulse Resp BP Pulse Ox 04/09/20 07:45 97.7 F 92 H 18 148/70 95 04/09/20 07:01 94 H 18 94 L 04/09/20 04:00 97.9 F 86 20 112/58 96 04/09/20 03:18 23 04/08/20 23:57 97.9 F 88 23 91/56 98 04/08/20 23:00 94 H 23 98 04/08/20 19:57 97.3 F 99 H 20 150/67 95 04/08/20 19:16 98 H 24 96 04/08/20 17:23 97 H 22 122/71 96 04/08/20 17:07 99 H 20 124/71 96 04/08/20 16:33 103 H 24 111/66 97 04/08/20 15:14 101 H 28 H 111 97 04/08/20 14:00 118 H 24 124/67 99 04/08/20 13:23 100 04/08/20 13:21 28 H 100 04/08/20 13:05 120 H 38 H 100 04/08/20 13:01 96.6 F 129 H 28 H 124/67 100 General Appearance: no apparent distress, alert Neurologic Exam: alert, oriented x 3, cooperative, normal mood/affect, nml cerebellar function, nml station & gait, sensation nml, No motor deficits Eye Exam: PERRL/EOMI, eyes nml inspection Ears, Nose, Throat Exam: normal ENT inspection, TMs normal, pharynx normal, moist mucous membranes Neck Exam: normal inspection, non-tender, supple, full range of motion Respiratory Exam: diminished breath sounds, crackles/rales, rhonchi, wheezing, No respiratory distress Cardiovascular Exam: regular rate/rhythm, normal heart sounds, normal peripheral pulses Gastrointestinal/Abdomen Exam: soft, normal bowel sounds, No tenderness, No mass Back Exam: normal inspection, normal range of motion, No CVA tenderness, No jairo tebral tenderness Extremity Exam: normal inspection, normal range of motion, pelvis stable Skin Exam: normal color, warm, dry, No rash Lymphatic Exam: No adenopathy Results - Labs Lab/Micro Results: Lab Results-Last 24 Hours 04/08/20 04/08/20 04/08/20 Range/Units 13:10 13:15 13:15 WBC 30.5 H* (4.0-10.5) K/mm3 RBC 3.15 L (4.1-5.4) M/mm3 Hgb 7.5 L (12.0-16.0) gm/dl Hct 26.9 L (35-47) % MCV 85.4 (78-100) fl MCH 23.8 L (26-32) pg MCHC 27.9 L (32-36) g/dl RDW 18.2 H (11.5-14.0) % Plt Count 602 H (150-450) K/mm3 MPV 8.9 (7.5-11.0) fl Segmented Neutrophils 84 H (36.0-66.0) % Band Neutrophils 10 H (0.0-2.0) % Lymphocytes (Manual) 4 L (24-44) % Monocytes (Manual) 2 (0.0-12.0) % Nucleated RBCs 1 % Hypochromia 1+ Toxic Granulation 2+ Platelet Estimate INCREASED (NORMAL) RBC Morphology ABNORMAL Polychromasia 1+ Anisocytosis 1+ Microcytosis 1+ Smear Path Review Pending D-Dimer (215-500) ng/mL pO2/FiO2 Ratio 60.0 % VBG pH 7.48 H (7.32-7.42) VBG pCO2 at Pat Temp 41 L (42-55) mm/Hg VBG pO2 at Pat Temp 42 H (25-40) mm/Hg VBG HCO3 30.5 H* (22-28) meq/L VBG O2 Sat (Paulo) 73.7 L (95-100) VBG Base Excess 6.4 H (-2.0-2.0) VBG Hemoglobin 8.0 VBG Carboxyhemoglobin 1.6 (0.0-6.9) % T HGB POC Potassium 3.6 (3.5-5.1) Sodium 135 L (137-145) mmol/L Potassium 3.8 (3.5-5.1) mmol/L Chloride 99 (98-107) mmol/L Carbon Dioxide 31 H (22-30) mmol/L Anion Gap 9.1 (5-15) MEQ/L BUN 16 (7-17) mg/dL Creatinine 0.99 (0.52-1.04) mg/dL Estimated GFR > 60.0 ML/MIN Glucose 95 (74-106) mg/dL Lactic Acid 2.2 H (0.4-2.0) Calcium 9.2 (8.4-10.2) mg/dL Troponin I (0.000-0.034) ng/mL NT-Pro-B Natriuret Pep 337 (0-900) pg/mL Urine Color (YELLOW) Urine Appearance (CLEAR) Urine pH (5-6) Ur Specific [place] (1.005-1.025) Urine Protein (Negative) Urine Ketones (NEGATIVE) Urine Blood (0-5) Erasto/ul Urine Nitrite (NEGATIVE) Urine Bilirubin (NEGATIVE) Urine Urobilinogen (0-1) mg/dL Ur Leukocyte Esterase (NEGATIVE) Urine WBC (Auto) (0-5) /HPF Urine RBC (Auto) (0-2) /HPF U Epithel Cells (Auto) (FEW) /HPF Urine Bacteria (Auto) (NEGATIVE) /HPF Urine Mucus (Auto) (NEGATIVE) /HPF Urine Culture Reflexed (NO) Urine Glucose (NEGATIVE) mg/dL SARS-CoV-2 (PCR) (NEGATIVE) ABO Group Rh Factor Antibody Screen (NEGATIVE) Crossmatch (COMPATIBLE) 04/08/20 04/08/20 04/08/20 Range/Units 13:15 13:15 13:40 WBC (4.0-10.5) K/mm3 RBC (4.1-5.4) M/mm3 Hgb (12.0-16.0) gm/dl Hct (35-47) % MCV (78-100) fl MCH (26-32) pg MCHC (32-36) g/dl RDW (11.5-14.0) % Plt Count (150-450) K/mm3 MPV (7.5-11.0) fl Segmented Neutrophils (36.0-66.0) % Band Neutrophils (0.0-2.0) % Lymphocytes (Manual) (24-44) % Monocytes (Manual) (0.0-12.0) % Nucleated RBCs % Hypochromia Toxic Granulation Platelet Estimate (NORMAL) RBC Morphology Polychromasia Anisocytosis Microcytosis Smear Path Review D-Dimer 1521 H* (215-500) ng/mL pO2/FiO2 Ratio % VBG pH (7.32-7.42) VBG pCO2 at Pat Temp (42-55) mm/Hg VBG pO2 at Pat Temp (25-40) mm/Hg VBG HCO3 (22-28) meq/L VBG O2 Sat (Paulo) (95-100) VBG Base Excess (-2.0-2.0) VBG Hemoglobin VBG Carboxyhemoglobin (0.0-6.9) % T HGB POC Potassium (3.5-5.1) Sodium (137-145) mmol/L Potassium (3.5-5.1) mmol/L Chloride (98-107) mmol/L Carbon Dioxide (22-30) mmol/L Anion Gap (5-15) MEQ/L BUN (7-17) mg/dL Creatinine (0.52-1.04) mg/dL Estimated GFR ML/MIN Glucose (74-106) mg/dL Lactic Acid (0.4-2.0) Calcium (8.4-10.2) mg/dL Troponin I 0.024 (0.000-0.034) ng/mL NT-Pro-B Natriuret Pep (0-900) pg/mL Urine Color (YELLOW) Urine Appearance (CLEAR) Urine pH (5-6) Ur Specific [place] (1.005-1.025) Urine Protein (Negative) Urine Ketones (NEGATIVE) Urine Blood (0-5) Erasto/ul Urine Nitrite (NEGATIVE) Urine Bilirubin (NEGATIVE) Urine Urobilinogen (0-1) mg/dL Ur Leukocyte Esterase (NEGATIVE) Urine WBC (Auto) (0-5) /HPF Urine RBC (Auto) (0-2) /HPF U Epithel Cells (Auto) (FEW) /HPF Urine Bacteria (Auto) (NEGATIVE) /HPF Urine Mucus (Auto) (NEGATIVE) /HPF Urine Culture Reflexed (NO) Urine Glucose (NEGATIVE) mg/dL SARS-CoV-2 (PCR) (NEGATIVE) ABO Group A Rh Factor POSITIVE Antibody Screen NEGATIVE (NEGATIVE) Crossmatch COMPATIBLE (COMPATIBLE) 04/08/20 04/08/20 04/08/20 Range/Units 13:40 13:51 15:28 WBC (4.0-10.5) K/mm3 RBC (4.1-5.4) M/mm3 Hgb (12.0-16.0) gm/dl Hct (35-47) % MCV (78-100) fl MCH (26-32) pg MCHC (32-36) g/dl RDW (11.5-14.0) % Plt Count (150-450) K/mm3 MPV (7.5-11.0) fl Segmented Neutrophils (36.0-66.0) % Band Neutrophils (0.0-2.0) % Lymphocytes (Manual) (24-44) % Monocytes (Manual) (0.0-12.0) % Nucleated RBCs % Hypochromia Toxic Granulation Platelet Estimate (NORMAL) RBC Morphology Polychromasia Anisocytosis Microcytosis Smear Path Review D-Dimer (215-500) ng/mL pO2/FiO2 Ratio % VBG pH (7.32-7.42) VBG pCO2 at Pat Temp (42-55) mm/Hg VBG pO2 at Pat Temp (25-40) mm/Hg VBG HCO3 (22-28) meq/L VBG O2 Sat (Paulo) (95-100) VBG Base Excess (-2.0-2.0) VBG Hemoglobin VBG Carboxyhemoglobin (0.0-6.9) % T HGB POC Potassium (3.5-5.1) Sodium (137-145) mmol/L Potassium (3.5-5.1) mmol/L Chloride (98-107) mmol/L Carbon Dioxide (22-30) mmol/L Anion Gap (5-15) MEQ/L BUN (7-17) mg/dL Creatinine (0.52-1.04) mg/dL Estimated GFR ML/MIN Glucose (74-106) mg/dL Lactic Acid 1.4 (0.4-2.0) Calcium (8.4-10.2) mg/dL Troponin I (0.000-0.034) ng/mL NT-Pro-B Natriuret Pep (0-900) pg/mL Urine Color (YELLOW) Urine Appearance (CLEAR) Urine pH (5-6) Ur Specific [place] (1.005-1.025) Urine Protein (Negative) Urine Ketones (NEGATIVE) Urine Blood (0-5) Erasto/ul Urine Nitrite (NEGATIVE) Urine Bilirubin (NEGATIVE) Urine Urobilinogen (0-1) mg/dL Ur Leukocyte Esterase (NEGATIVE) Urine WBC (Auto) (0-5) /HPF Urine RBC (Auto) (0-2) /HPF U Epithel Cells (Auto) (FEW) /HPF Urine Bacteria (Auto) (NEGATIVE) /HPF Urine Mucus (Auto) (NEGATIVE) /HPF Urine Culture Reflexed (NO) Urine Glucose (NEGATIVE) mg/dL SARS-CoV-2 (PCR) NEGATIVE (NEGATIVE) ABO Group Rh Factor Antibody Screen (NEGATIVE) Crossmatch COMPATIBLE (COMPATIBLE) 04/08/20 04/08/20 04/08/20 Range/Units 16:00 18:30 19:40 WBC (4.0-10.5) K/mm3 RBC (4.1-5.4) M/mm3 Hgb (12.0-16.0) gm/dl Hct (35-47) % MCV (78-100) fl MCH (26-32) pg MCHC (32-36) g/dl RDW (11.5-14.0) % Plt Count (150-450) K/mm3 MPV (7.5-11.0) fl Segmented Neutrophils (36.0-66.0) % Band Neutrophils (0.0-2.0) % Lymphocytes (Manual) (24-44) % Monocytes (Manual) (0.0-12.0) % Nucleated RBCs % Hypochromia Toxic Granulation Platelet Estimate (NORMAL) RBC Morphology Polychromasia Anisocytosis Microcytosis Smear Path Review D-Dimer (215-500) ng/mL pO2/FiO2 Ratio % VBG pH (7.32-7.42) VBG pCO2 at Pat Temp (42-55) mm/Hg VBG pO2 at Pat Temp (25-40) mm/Hg VBG HCO3 (22-28) meq/L VBG O2 Sat (Paulo) (95-100) VBG Base Excess (-2.0-2.0) VBG Hemoglobin VBG Carboxyhemoglobin (0.0-6.9) % T HGB POC Potassium (3.5-5.1) Sodium (137-145) mmol/L Potassium (3.5-5.1) mmol/L Chloride (98-107) mmol/L Carbon Dioxide (22-30) mmol/L Anion Gap (5-15) MEQ/L BUN (7-17) mg/dL Creatinine (0.52-1.04) mg/dL Estimated GFR ML/MIN Glucose (74-106) mg/dL Lactic Acid (0.4-2.0) Calcium (8.4-10.2) mg/dL Troponin I 0.051 H* 0.036 H* (0.000-0.034) ng/mL NT-Pro-B Natriuret Pep (0-900) pg/mL Urine Color YELLOW (YELLOW) Urine Appearance CLEAR (CLEAR) Urine pH 5.0 (5-6) Ur Specific [place] 1.010 (1.005-1.025) Urine Protein NEGATIVE (Negative) Urine Ketones NEGATIVE (NEGATIVE) Urine Blood NEGATIVE (0-5) Erasto/ul Urine Nitrite NEGATIVE (NEGATIVE) Urine Bilirubin NEGATIVE (NEGATIVE) Urine Urobilinogen NEGATIVE (0-1) mg/dL Ur Leukocyte Esterase NEGATIVE (NEGATIVE) Urine WBC (Auto) NONE (0-5) /HPF Urine RBC (Auto) NONE (0-2) /HPF U Epithel Cells (Auto) NONE (FEW) /HPF Urine Bacteria (Auto) NONE (NEGATIVE) /HPF Urine Mucus (Auto) SLIGHT (NEGATIVE) /HPF Urine Culture Reflexed ORDERED SEPARATELY (NO) Urine Glucose NEGATIVE (NEGATIVE) mg/dL SARS-CoV-2 (PCR) (NEGATIVE) ABO Group Rh Factor Antibody Screen (NEGATIVE) Crossmatch (COMPATIBLE) 04/09/20 04/09/20 04/09/20 Range/Units 03:25 03:25 03:30 WBC 27.6 H* (4.0-10.5) K/mm3 RBC 3.40 L (4.1-5.4) M/mm3 Hgb 8.7 L 8.8 L (12.0-16.0) gm/dl Hct 29.6 L 29.3 L (35-47) % MCV 87.1 (78-100) fl MCH 25.6 L (26-32) pg MCHC 29.4 L (32-36) g/dl RDW 17.3 H (11.5-14.0) % Plt Count 483 H (150-450) K/mm3 MPV 9.4 (7.5-11.0) fl Segmented Neutrophils (36.0-66.0) % Band Neutrophils (0.0-2.0) % Lymphocytes (Manual) (24-44) % Monocytes (Manual) (0.0-12.0) % Nucleated RBCs % Hypochromia Toxic Granulation Platelet Estimate (NORMAL) RBC Morphology Polychromasia Anisocytosis Microcytosis Smear Path Review D-Dimer (215-500) ng/mL pO2/FiO2 Ratio % VBG pH (7.32-7.42) VBG pCO2 at Pat Temp (42-55) mm/Hg VBG pO2 at Pat Temp (25-40) mm/Hg VBG HCO3 (22-28) meq/L VBG O2 Sat (Paulo) (95-100) VBG Base Excess (-2.0-2.0) VBG Hemoglobin VBG Carboxyhemoglobin (0.0-6.9) % T HGB POC Potassium (3.5-5.1) Sodium 133 L (137-145) mmol/L Potassium 4.0 (3.5-5.1) mmol/L Chloride 100 (98-107) mmol/L Carbon Dioxide 32 H (22-30) mmol/L Anion Gap 6.0 (5-15) MEQ/L BUN 19 H (7-17) mg/dL Creatinine 0.72 (0.52-1.04) mg/dL Estimated GFR > 60.0 ML/MIN Glucose 166 H (74-106) mg/dL Lactic Acid (0.4-2.0) Calcium 8.8 (8.4-10.2) mg/dL Troponin I (0.000-0.034) ng/mL NT-Pro-B Natriuret Pep (0-900) pg/mL Urine Color (YELLOW) Urine Appearance (CLEAR) Urine pH (5-6) Ur Specific [place] (1.005-1.025) Urine Protein (Negative) Urine Ketones (NEGATIVE) Urine Blood (0-5) Erasto/ul Urine Nitrite (NEGATIVE) Urine Bilirubin (NEGATIVE) Urine Urobilinogen (0-1) mg/dL Ur Leukocyte Esterase (NEGATIVE) Urine WBC (Auto) (0-5) /HPF Urine RBC (Auto) (0-2) /HPF U Epithel Cells (Auto) (FEW) /HPF Urine Bacteria (Auto) (NEGATIVE) /HPF Urine Mucus (Auto) (NEGATIVE) /HPF Urine Culture Reflexed (NO) Urine Glucose (NEGATIVE) mg/dL SARS-CoV-2 (PCR) (NEGATIVE) ABO Group Rh Factor Antibody Screen (NEGATIVE) Crossmatch (COMPATIBLE) 04/09/20 Range/Units 03:30 WBC (4.0-10.5) K/mm3 RBC (4.1-5.4) M/mm3 Hgb (12.0-16.0) gm/dl Hct (35-47) % MCV (78-100) fl MCH (26-32) pg MCHC (32-36) g/dl RDW (11.5-14.0) % Plt Count (150-450) K/mm3 MPV (7.5-11.0) fl Segmented Neutrophils (36.0-66.0) % Band Neutrophils (0.0-2.0) % Lymphocytes (Manual) (24-44) % Monocytes (Manual) (0.0-12.0) % Nucleated RBCs % Hypochromia Toxic Granulation Platelet Estimate (NORMAL) RBC Morphology Polychromasia Anisocytosis Microcytosis Smear Path Review D-Dimer (215-500) ng/mL pO2/FiO2 Ratio % VBG pH (7.32-7.42) VBG pCO2 at Pat Temp (42-55) mm/Hg VBG pO2 at Pat Temp (25-40) mm/Hg VBG HCO3 (22-28) meq/L VBG O2 Sat (Paulo) (95-100) VBG Base Excess (-2.0-2.0) VBG Hemoglobin VBG Carboxyhemoglobin (0.0-6.9) % T HGB POC Potassium (3.5-5.1) Sodium (137-145) mmol/L Potassium (3.5-5.1) mmol/L Chloride (98-107) mmol/L Carbon Dioxide (22-30) mmol/L Anion Gap (5-15) MEQ/L BUN (7-17) mg/dL Creatinine (0.52-1.04) mg/dL Estimated GFR ML/MIN Glucose (74-106) mg/dL Lactic Acid (0.4-2.0) Calcium (8.4-10.2) mg/dL Troponin I < 0.012 (0.000-0.034) ng/mL NT-Pro-B Natriuret Pep (0-900) pg/mL Urine Color (YELLOW) Urine Appearance (CLEAR) Urine pH (5-6) Ur Specific [place] (1.005-1.025) Urine Protein (Negative) Urine Ketones (NEGATIVE) Urine Blood (0-5) Erasto/ul Urine Nitrite (NEGATIVE) Urine Bilirubin (NEGATIVE) Urine Urobilinogen (0-1) mg/dL Ur Leukocyte Esterase (NEGATIVE) Urine WBC (Auto) (0-5) /HPF Urine RBC (Auto) (0-2) /HPF U Epithel Cells (Auto) (FEW) /HPF Urine Bacteria (Auto) (NEGATIVE) /HPF Urine Mucus (Auto) (NEGATIVE) /HPF Urine Culture Reflexed (NO) Urine Glucose (NEGATIVE) mg/dL SARS-CoV-2 (PCR) (NEGATIVE) ABO Group Rh Factor Antibody Screen (NEGATIVE) Crossmatch (COMPATIBLE) - Radiology Impressions Radiology Exams & Impressions: Radiology Procedures Category Date Time Status CHEST 1 VIEW (PORTABLE) Stat Exams 04/08/20 13:10 Completed CHEST 2 VIEWS (PA AND LAT) Routine Exams 04/09/20 08:00 Taken CHEST WITH CONTRAST [CT] Stat Exams 04/08/20 13:51 Completed - Other Procedures and Tests Respiratory Therapy 04/08/20 17:37 Oxygen Nasal Cannula 3 lpm 04/08/20 18:24 Respiratory Therapy Assessment DAILY Assessment/Plan (1) Acute respiratory failure Current Visit: Yes Status: Acute Qualifiers: Respiratory failure complication: hypoxia and hypercapnia Qualified Code(s): J96.01 - Acute respiratory failure with hypoxia; J96.02 - Acute respiratory failure with hypercapnia Assessment & Plan: Chief Complaint Diagnosis PNEUMONIA Allergies Allergy/AdvReac Type Severity Reaction Status Date / Time morphine Allergy Severe Fainting Verified 04/08/20 13:14 oxycodone Allergy Shortness Verified 04/08/20 13:14 of Breath Penicillins Allergy Verified 04/08/20 13:14 oxymorphone AdvReac Severe Fainting Verified 04/08/20 17:48 [place] AdvReac Intermediate Headache Verified 04/08/20 13:14 omeprazole AdvReac Intermediate Stomach Verified 04/08/20 13:14 Pain bupropion HCl AdvReac Mild Hives Verified 04/08/20 13:14 [From Wellbutrin] Vital Signs (Last 24 hours) Temp Pulse Resp BP Pulse Ox 04/09/20 07:45 97.7 F 92 H 18 148/70 95 04/09/20 07:01 94 H 18 94 L 04/09/20 04:00 97.9 F 86 20 112/58 96 04/09/20 03:18 23 04/08/20 23:57 97.9 F 88 23 91/56 98 04/08/20 23:00 94 H 23 98 04/08/20 19:57 97.3 F 99 H 20 150/67 95 04/08/20 19:16 98 H 24 96 04/08/20 17:23 97 H 22 122/71 96 04/08/20 17:07 99 H 20 124/71 96 04/08/20 16:33 103 H 24 111/66 97 04/08/20 15:14 101 H 28 H 111/66 97 04/08/20 14:00 118 H 24 124/67 99 04/08/20 13:23 100 04/08/20 13:21 28 H 100 04/08/20 13:05 120 H 38 H 100 04/08/20 13:01 96.6 F 129 H 28 H 124/67 100 Home Medications Medication Instructions Recorded Confirmed Last Taken Type Gabapentin 600 mg PO DAILY 04/08/20 04/08/20 04/07/20 History Gabapentin [Neurontin] 2,400 mg PO HS 04/08/20 04/08/20 Unknown History Current Medications Generic Name Dose Route Start Last Admin Trade Name Yordan PRN Reason Stop Dose Admin Albuterol/Ipratropium 3 ml 04/08/20 19:00 04/09/20 06:58 Duoneb 0.5-3 Mg/3 Ml Neb IH 05/08/20 18:59 3 ml Q4HRT VALERY Administration Clonazepam 2 mg 04/08/20 22:00 04/08/20 21:15 Klonopin PO 05/08/20 21:59 2 mg BID VALERY Administration Enoxaparin Sodium 40 mg 04/08/20 20:00 04/08/20 21:10 Enoxaparin Sodium SQ 05/08/20 19:59 40 mg Q24H VALERY Administration Famotidine 40 mg 04/09/20 10:00 Pepcid 20 Mg PO 05/09/20 09:59 BID VALERY Gabapentin 2,400 mg 04/09/20 22:00 Neurontin 400 Mg PO 05/09/20 21:59 HS VALERY Gabapentin 600 mg 04/09/20 10:00 Neurontin 300 Mg PO 05/09/20 09:59 DAILY [facility] Ceftriaxone Sodium/Dextrose 1 g in 50 mls @ 100 mls/hr 04/09/20 10:00 Rocephin 1 Gm-D5w 50 Ml Bag IV 05/09/20 09:59 Q24H10 VALERY Azithromycin 500 mg in 250 mls @ 250 mls/hr 04/09/20 20:00 Zithromax 500 Mg/ 250 Ml Nacl Premix IV 05/09/20 19:59 Q24H [facility] Isosorbide Mononitrate 30 mg 04/09/20 10:00 Imdur 30 Mg PO 05/09/20 09:59 DAILY [facility] Levothyroxine Sodium 25 mcg 04/09/20 10:00 Synthroid 25 Mcg PO 05/09/20 09:59 DAILY [facility] Methylprednisolone Sodium Succinate 80 mg 04/08/20 18:00 04/09/20 06:06 Solu-Medrol 125 Mg IV 05/08/20 17:59 80 mg Q6HT [facility] Administration Multivitamins Therapeutic 1 tab 04/09/20 10:00 Theragran Multivitamin PO 05/09/20 09:59 DAILY [facility] Nitroglycerin 0.4 mg 04/08/20 20:51 Nitrostat 0.4 Mg Tablet SL 05/08/20 20:50 Q5MIN PRN MR X 3 PRN CHEST PAIN Quetiapine Fumarate 300 mg 04/08/20 22:00 04/08/20 21:11 Seroquel 100 Mg PO 05/08/20 21:59 300 mg HS [facility] Administration Quetiapine Fumarate 200 mg 04/09/20 10:00 Seroquel 100 Mg PO 05/09/20 09:59 QAM [facility] Fluticasone/Salmeterol 2 puff 04/08/20 19:00 04/09/20 07:00 Advair Hfa 115/ Common Canister* IH 05/08/20 18:59 2 puff BIDRT [facility] Administration Sertraline HCl 200 mg 04/09/20 10:00 Zoloft 50 Mg Tablet PO 05/09/20 09:59 DAILY [facility] Tizanidine HCl 4 mg 04/08/20 22:00 04/08/20 21:10 Zanaflex 4 Mg PO 05/08/20 21:59 4 mg TID [facility] Administration Discontinued Medications Generic Name Dose Route Start Last Admin Trade Name Freq PRN Reason Stop Dose Admin Albuterol Sulfate Confirm 04/08/20 13:12 Proventil Solution 2.5 Mg/0.5 Ml Administered 04/08/20 13:13 Dose 10 mg IH .STK-MED ONE Albuterol Sulfate 10 mg 04/08/20 13:17 04/08/20 13:36 Ventolin 20 Ml Bottle IH 04/08/20 13:18 10 mg STAT ONE Administration Albuterol/Ipratropium 3 ml 04/08/20 13:37 04/08/20 13:38 Duoneb 0.5-3 Mg/3 Ml Neb IH 04/08/20 13:38 3 ml STAT ONE Administration Aspirin 324 mg 04/08/20 16:31 04/08/20 16:34 Baby Aspirin 81 Mg Chew PO 04/08/20 16:32 324 mg STAT ONE Administration Clonazepam 2 mg 04/08/20 22:00 Klonopin 0.5 Mg PO 05/08/20 21:59 BID [facility] Clonazepam Confirm 04/08/20 21:00 Klonopin Administered 04/08/20 21:01 Dose 2 mg .ROUTE .STK-MED ONE Enoxaparin Sodium 40 mg 04/09/20 10:00 Enoxaparin Sodium SQ 05/09/20 09:59 DAILY [facility] Famotidine 20 mg 04/08/20 22:00 04/08/20 21:17 Pepcid 20 Mg PO 05/08/20 21:59 20 mg Q12HT [facility] Administration Gabapentin 800 mg 04/08/20 22:00 Neurontin 300 Mg PO 05/08/20 21:59 HS [facility] Gabapentin Confirm 04/08/20 21:00 Neurontin 400 Mg Administered 04/08/20 21:01 Dose 800 mg .ROUTE .STK-MED ONE Gabapentin 400 mg 04/08/20 22:00 Neurontin 400 Mg PO 05/08/20 21:59 HS [facility] Gabapentin 800 mg 04/08/20 22:00 04/08/20 21:15 Neurontin 400 Mg PO 05/08/20 21:59 800 mg HS [facility] Administration Gabapentin 1,600 mg 04/08/20 21:30 04/08/20 21:28 Neurontin 400 Mg PO 04/08/20 21:31 1,600 mg TID ONE Administration Azithromycin 500 mg/ Sodium 250 mls @ 125 mls/hr 04/08/20 13:14 04/08/20 20:18 Chloride IV 04/08/20 15:13 Not Given STAT ONE Ceftriaxone Sodium/Dextrose 1 g in 50 mls @ 100 mls/hr 04/08/20 13:14 04/08/20 14:22 Rocephin 1 Gm-D5w 50 Ml Bag IV 04/08/20 13:43 Infused STAT STA Infusion Ceftriaxone Sodium/Dextrose Confirm 04/08/20 13:26 Rocephin 1 Gm-D5w 50 Ml Bag Administered 04/08/20 13:27 Dose 1 g in 50 mls @ ud IV .STK-MED ONE Lactated Ringer's 1,000 mls @ 999 mls/hr 04/08/20 14:50 04/08/20 20:18 Lactated Ringers IV 04/08/20 15:50 Not Given .Q1H1M ONE Lactated Ringer's 1,000 mls @ 999 mls/hr 04/08/20 14:51 04/08/20 20:18 Lactated Ringers IV 04/08/20 15:51 Not Given .Q1H1M ONE Sodium Chloride Confirm 04/08/20 18:13 Sodium Chloride 0.9% 500 Ml Administered 04/08/20 18:14 Dose 500 mls @ ud IV .STK-MED ONE Sodium Chloride 500 mls @ 50 mls/hr 04/08/20 19:00 04/08/20 18:45 Sodium Chloride 0.9% 500 Ml IV 05/08/20 18:59 50 mls/hr .Q10H VALERY Administration Prednisone 20 mg 04/08/20 22:00 Deltasone 20 Mg PO 05/08/20 21:59 BID VALERY Sodium Chloride Confirm 04/08/20 13:13 Sodium Chloride 3 Ml Ud Nebules Administered 04/08/20 13:14 Dose 6 ml IH .STK-MED ONE Intake & Output (Last 24 hours) 04/06/20 04/07/20 04/08/20 04/09/20 11:59 11:59 11:59 11:59 Intake Total 720 Output Total 900 Balance -180 Weight 80.2 kg Microbiology Results (Last 24 hours) 04/08/20 04:00 Sputum - Expectorant Gram Stain - Pending 04/08/20 04:00 Sputum - Expectorant Sputum Culture - Pending 04/08/20 18:30 Catherized Urine Culture - Pending 04/08/20 13:20 Blood Blood Culture Gram Stain - Pending 04/08/20 13:20 Blood Blood Culture - Pending 04/08/20 13:15 Blood Blood Culture Gram Stain - Pending 04/08/20 13:15 Blood Blood Culture - Pending Laboratory Results (Last 24 hours) 04/09/20 04/09/20 04/09/20 03:30 03:30 03:25 WBC RBC Hgb 8.8 L Hct 29.3 L MCV MCH MCHC RDW Plt Count MPV Segmented Neutrophils Band Neutrophils Lymphocytes (Manual) Monocytes (Manual) Nucleated RBCs Hypochromia Toxic Granulation Platelet Estimate RBC Morphology Polychromasia Anisocytosis Microcytosis D-Dimer pO2/FiO2 Ratio VBG pH VBG pCO2 at Pat Temp VBG pO2 at Pat Temp VBG HCO3 VBG O2 Sat (Paulo) VBG Base Excess VBG Hemoglobin VBG Carboxyhemoglobin POC Potassium Sodium 133 L Potassium 4.0 Chloride 100 Carbon Dioxide 32 H Anion Gap 6.0 BUN 19 H Creatinine 0.72 Estimated GFR > 60.0 Glucose 166 H Lactic Acid Calcium 8.8 Troponin I < 0.012 NT-Pro-B Natriuret Pep Urine Color Urine Appearance Urine pH Ur Specific [place] Urine Protein Urine Ketones Urine Blood Urine Nitrite Urine Bilirubin Urine Urobilinogen Ur Leukocyte Esterase Urine WBC (Auto) Urine RBC (Auto) U Epithel Cells (Auto) Urine Bacteria (Auto) Urine Mucus (Auto) Urine Culture Reflexed Urine Glucose SARS-CoV-2 (PCR) ABO Group Rh Factor Antibody Screen Crossmatch 04/09/20 04/08/20 04/08/20 03:25 19:40 18:30 WBC 27.6 H* RBC 3.40 L Hgb 8.7 L Hct 29.6 L MCV 87.1 MCH 25.6 L MCHC 29.4 L RDW 17.3 H Plt Count 483 H MPV 9.4 Segmented Neutrophils Band Neutrophils Lymphocytes (Manual) Monocytes (Manual) Nucleated RBCs Hypochromia Toxic Granulation Platelet Estimate RBC Morphology Polychromasia Anisocytosis Microcytosis D-Dimer pO2/FiO2 Ratio VBG pH VBG pCO2 at Pat Temp VBG pO2 at Pat Temp VBG HCO3 VBG O2 Sat (Paulo) VBG Base Excess VBG Hemoglobin VBG Carboxyhemoglobin POC Potassium Sodium Potassium Chloride Carbon Dioxide Anion Gap BUN Creatinine Estimated GFR Glucose Lactic Acid Calcium Troponin I 0.036 H* NT-Pro-B Natriuret Pep Urine Color YELLOW Urine Appearance CLEAR Urine pH 5.0 Ur Specific [place] 1.010 Urine Protein NEGATIVE Urine Ketones NEGATIVE Urine Blood NEGATIVE Urine Nitrite NEGATIVE Urine Bilirubin NEGATIVE Urine Urobilinogen NEGATIVE Ur Leukocyte Esterase NEGATIVE Urine WBC (Auto) NONE Urine RBC (Auto) NONE U Epithel Cells (Auto) NONE Urine Bacteria (Auto) NONE Urine Mucus (Auto) SLIGHT Urine Culture Reflexed ORDERED SEPARATELY Urine Glucose NEGATIVE SARS-CoV-2 (PCR) ABO Group Rh Factor Antibody Screen Crossmatch 04/08/20 04/08/20 04/08/20 16:00 15:28 13:51 WBC RBC Hgb Hct MCV MCH MCHC RDW Plt Count MPV Segmented Neutrophils Band Neutrophils Lymphocytes (Manual) Monocytes (Manual) Nucleated RBCs Hypochromia Toxic Granulation Platelet Estimate RBC Morphology Polychromasia Anisocytosis Microcytosis D-Dimer pO2/FiO2 Ratio VBG pH VBG pCO2 at Pat Temp VBG pO2 at Pat Temp VBG HCO3 VBG O2 Sat (Paulo) VBG Base Excess VBG Hemoglobin VBG Carboxyhemoglobin POC Potassium Sodium Potassium Chloride Carbon Dioxide Anion Gap BUN Creatinine Estimated GFR Glucose Lactic Acid 1.4 Calcium Troponin I 0.051 H* NT-Pro-B Natriuret Pep Urine Color Urine Appearance Urine pH Ur Specific [place] Urine Protein Urine Ketones Urine Blood Urine Nitrite Urine Bilirubin Urine Urobilinogen Ur Leukocyte Esterase Urine WBC (Auto) Urine RBC (Auto) U Epithel Cells (Auto) Urine Bacteria (Auto) Urine Mucus (Auto) Urine Culture Reflexed Urine Glucose SARS-CoV-2 (PCR) NEGATIVE ABO Group Rh Factor Antibody Screen Crossmatch 04/08/20 04/08/20 04/08/20 13:40 13:40 13:15 WBC RBC Hgb Hct MCV MCH MCHC RDW Plt Count MPV Segmented Neutrophils Band Neutrophils Lymphocytes (Manual) Monocytes (Manual) Nucleated RBCs Hypochromia Toxic Granulation Platelet Estimate RBC Morphology Polychromasia Anisocytosis Microcytosis D-Dimer pO2/FiO2 Ratio VBG pH VBG pCO2 at Pat Temp VBG pO2 at Pat Temp VBG HCO3 VBG O2 Sat (Paulo) VBG Base Excess VBG Hemoglobin VBG Carboxyhemoglobin POC Potassium Sodium Potassium Chloride Carbon Dioxide Anion Gap BUN Creatinine Estimated GFR Glucose Lactic Acid Calcium Troponin I 0.024 NT-Pro-B Natriuret Pep Urine Color Urine Appearance Urine pH Ur Specific [place] Urine Protein Urine Ketones Urine Blood Urine Nitrite Urine Bilirubin Urine Urobilinogen Ur Leukocyte Esterase Urine WBC (Auto) Urine RBC (Auto) U Epithel Cells (Auto) Urine Bacteria (Auto) Urine Mucus (Auto) Urine Culture Reflexed Urine Glucose SARS-CoV-2 (PCR) ABO Group A Rh Factor POSITIVE Antibody Screen NEGATIVE Crossmatch COMPATIBLE COMPATIBLE 04/08/20 04/08/20 04/08/20 13:15 13:15 13:15 WBC 30.5 H* RBC 3.15 L Hgb 7.5 L Hct 26.9 L MCV 85.4 MCH 23.8 L MCHC 27.9 L RDW 18.2 H Plt Count 602 H MPV 8.9 Segmented Neutrophils 84 H Band Neutrophils 10 H Lymphocytes (Manual) 4 L Monocytes (Manual) 2 Nucleated RBCs 1 Hypochromia 1+ Toxic Granulation 2+ Platelet Estimate INCREASED RBC Morphology ABNORMAL Polychromasia 1+ Anisocytosis 1+ Microcytosis 1+ D-Dimer 1521 H* pO2/FiO2 Ratio VBG pH VBG pCO2 at Pat Temp VBG pO2 at Pat Temp VBG HCO3 VBG O2 Sat (Paulo) VBG Base Excess VBG Hemoglobin VBG Carboxyhemoglobin POC Potassium Sodium 135 L Potassium 3.8 Chloride 99 Carbon Dioxide 31 H Anion Gap 9.1 BUN 16 Creatinine 0.99 Estimated GFR > 60.0 Glucose 95 Lactic Acid Calcium 9.2 Troponin I NT-Pro-B Natriuret Pep 337 Urine Color Urine Appearance Urine pH Ur Specific [place] Urine Protein Urine Ketones Urine Blood Urine Nitrite Urine Bilirubin Urine Urobilinogen Ur Leukocyte Esterase Urine WBC (Auto) Urine RBC (Auto) U Epithel Cells (Auto) Urine Bacteria (Auto) Urine Mucus (Auto) Urine Culture Reflexed Urine Glucose SARS-CoV-2 (PCR) ABO Group Rh Factor Antibody Screen Crossmatch 04/08/20 13:10 WBC RBC Hgb Hct MCV MCH MCHC RDW Plt Count MPV Segmented Neutrophils Band Neutrophils Lymphocytes (Manual) Monocytes (Manual) Nucleated RBCs Hypochromia Toxic Granulation Platelet Estimate RBC Morphology Polychromasia Anisocytosis Microcytosis D-Dimer pO2/FiO2 Ratio 60.0 VBG pH 7.48 H VBG pCO2 at Pat Temp 41 L VBG pO2 at Pat Temp 42 H VBG HCO3 30.5 H* VBG O2 Sat (Paulo) 73.7 L VBG Base Excess 6.4 H VBG Hemoglobin 8.0 VBG Carboxyhemoglobin 1.6 POC Potassium 3.6 Sodium Potassium Chloride Carbon Dioxide Anion Gap BUN Creatinine Estimated GFR Glucose Lactic Acid 2.2 H Calcium Troponin I NT-Pro-B Natriuret Pep Urine Color Urine Appearance Urine pH Ur Specific [place] Urine Protein Urine Ketones Urine Blood Urine Nitrite Urine Bilirubin Urine Urobilinogen Ur Leukocyte Esterase Urine WBC (Auto) Urine RBC (Auto) U Epithel Cells (Auto) Urine Bacteria (Auto) Urine Mucus (Auto) Urine Culture Reflexed Urine Glucose SARS-CoV-2 (PCR) ABO Group Rh Factor Antibody Screen Crossmatch Orders (Last 24 hours) Category Date Time Status Up With Assistance ROUTINE Activity 04/08/20 17:37 Active Admit as Inpatient ROUTINE Care 04/08/20 17:37 Active Animal Handler STAT Care 04/08/20 13:11 Completed Code Status Order ROUTINE Care 04/08/20 17:37 Active Consent,Obtain ROUTINE Care 04/08/20 17:37 Active EKG-ER Only STAT Care 04/08/20 13:10 Completed IV Care Q6H Care 04/08/20 17:37 Active NPO (ED) STAT Care 04/08/20 13:10 Completed Betzy Gilmore ROUTINE Care 04/08/20 17:37 Active Weight,Daily 0600 Care 04/08/20 17:37 Active Heart-Healthy Diet Diet 04/08/20 Dinner Active CHEST 1 VIEW (PORTABLE) Stat Exams 04/08/20 13:10 Completed CHEST 2 VIEWS (PA AND LAT) Routine Exams 04/09/20 08:00 Taken CHEST WITH CONTRAST [CT] Stat Exams 04/08/20 13:51 Completed ABO TYPING Stat Lab 04/08/20 13:40 Completed Antibody Screen Stat Lab 04/08/20 13:40 Completed BLOOD COMPONENT REQUEST Stat Lab 04/08/20 13:40 Completed BLOOD CULTURE Stat Lab 04/08/20 13:20 Received BMP AM.LAB Lab 04/09/20 03:30 Completed BMP Stat Lab 04/08/20 13:15 Completed CBC AM.LAB Lab 04/09/20 03:25 Completed CBC W DIFF Stat Lab 04/08/20 13:15 Results CULTURE,URINE Stat Lab 04/08/20 18:30 Received D-DIMER QUANTITATIVE Stat Lab 04/08/20 13:15 Completed HEMOGLOBIN AND HEMATOCRIT Urgent Lab 04/09/20 03:25 Completed Lactic Acid Stat Lab 04/08/20 13:10 Completed Lactic Acid Stat Lab 04/08/20 15:28 Completed Manual Differential NC Stat Lab 04/08/20 13:15 Results NT PRO BNP Stat Lab 04/08/20 13:15 Completed Pathologist Review Stat Lab 04/08/20 13:15 Results RH TYPING Stat Lab 04/08/20 13:40 Completed TROPONIN AM.LAB Lab 04/09/20 03:30 Completed TROPONIN Q3H Lab 04/08/20 13:15 Completed TROPONIN Q3H Lab 04/08/20 16:00 Completed TROPONIN Q3H Lab 04/08/20 19:40 Completed UA W/RFX UR CULTURE Stat Lab 04/08/20 18:30 Completed VENOUS BLOOD GAS Stat Lab 04/08/20 13:10 Completed Albuterol 2.5 mg/0.5 ml [PROVENTIL Solution 2.5 MG/0 Med 04/08/20 13:12 Discontinued .5 ML] 10 mg IH .STK-MED ONE Albuterol 5 mg/ml 20Ml Bottle* [Ventolin 20 ml Bottle Med 04/08/20 13:17 Discontinued *] 10 mg IH STAT ONE Albuterol/Ipratropium 3ml Neb* [DUONEB 0.5-3 MG/3 ml Med 04/08/20 19:00 Active Neb] 3 ml IH Q4HRT Albuterol/Ipratropium 3ml Neb* [DUONEB 0.5-3 MG/3 ml Med 04/08/20 13:37 Discontinued Neb] 3 ml IH STAT ONE Aspirin 81 gm Chew [Baby Aspirin 81 mg Chew] Med 04/08/20 16:31 Discontinued 324 mg PO STAT ONE Azithromycin 500 mg/250 ml [Zithromax 500 MG/ 250 ML Med 04/09/20 20:00 Active NaCl Premix] 500 mg in 250 ml IV Q24H Azithromycin Inj 500 mg [Zithromax IV 500 mg] 500 Med 04/08/20 13:14 Discontinued mg NaCl 0.9% 250 ml [Sodium Chloride 0.9% 250 ML] 250 ml IV STAT Ceftriaxone 1 GM/50 ML PREMIX* [ROCEPHIN 1 Gm-D5w 50 ml Med 04/09/20 10:00 Active Bag] 1 g in 50 ml IV Q24H10 Ceftriaxone 1 GM/50 ML PREMIX* [ROCEPHIN 1 Gm-D5w 50 ml Med 04/08/20 13:14 Discontinued Bag] 1 g in 50 ml IV STAT Ceftriaxone 1 GM/50 ML PREMIX* [ROCEPHIN 1 Gm-D5w 50 ml Med 04/08/20 13:26 Discontinued Bag] 1 g in 50 ml IV UD Clonazepam 0.5 mg [Klonopin 0.5 MG] Med 04/08/20 22:00 Discontinued 2 mg PO BID Clonazepam [Klonopin] Med 04/08/20 21:00 Discontinued 2 mg .ROUTE .STK-MED ONE Clonazepam [Klonopin] Med 04/08/20 22:00 Active 2 mg PO BID Enoxaparin Sodium [Enoxaparin Sodium] Med 04/09/20 10:00 Discontinued 40 mg SQ DAILY Enoxaparin Sodium [Enoxaparin Sodium] Med 04/08/20 20:00 Active 40 mg SQ Q24H Famotidine 20 mg [Pepcid 20 MG] Med 04/08/20 22:00 Discontinued 20 mg PO Q12HT Famotidine 20 mg [Pepcid 20 MG] Med 04/09/20 10:00 Active 40 mg PO BID Fluticasone/Salmeterol [Advair Hfa Common Med 04/08/20 19:00 Active canister*] 2 puff IH BIDRT Gabapentin 300 mg [Neurontin 300 mg] Med 04/09/20 10:00 Active 600 mg PO DAILY Gabapentin 300 mg [Neurontin 300 mg] Med 04/08/20 22:00 Discontinued 800 mg PO HS Gabapentin 400 mg [Neurontin 400 MG] Med 04/08/20 21:30 Discontinued 1,600 mg PO TID ONE Gabapentin 400 mg [Neurontin 400 MG] Med 04/09/20 22:00 Active 2,400 mg PO HS Gabapentin 400 mg [Neurontin 400 MG] Med 04/08/20 22:00 Discontinued 400 mg PO HS Gabapentin 400 mg [Neurontin 400 MG] Med 04/08/20 21:00 Discontinued 800 mg .ROUTE .STK-MED ONE Gabapentin 400 mg [Neurontin 400 MG] Med 04/08/20 22:00 Discontinued 800 mg PO HS Isosorbide Mononitrate 30 mg [Imdur 30 MG] Med 04/09/20 10:00 Active 30 mg PO DAILY Levothyroxine Sodium 25 Mcg [Synthroid 25 Mcg] Med 04/09/20 10:00 Active 25 mcg PO DAILY Methylprednis Sod Succ 125 mg* [solu-MEDROL 125 MG] Med 04/08/20 18:00 A ctive 80 mg IV Q6HT Multivitamins,Therapeutic Tab* [Theragran Multivitamin* Med 04/09/20 10:00 Active ] 1 tab PO DAILY NaCl 0.9% 500 ml [Sodium Chloride 0.9% 500 ML] 500 ml Med 04/08/20 19:00 Discontinued IV 50 mls/hr NaCl 0.9% 500 ml [Sodium Chloride 0.9% 500 ML] 500 ml Med 04/08/20 18:13 Discontinued IV UD NaCl 3Ml For Inhalation [Sodium Chloride 3 ML UD Med 04/08/20 13:13 Discontinued NEBULES] 6 ml IH .STK-MED ONE Nitroglycerin 0.4 mg Tablet [Nitrostat 0.4 MG Tablet Med 04/08/20 20:51 Active ] 0.4 mg SL Q5MIN PRN MR X 3 PRN Prednisone 20 mg [Deltasone 20 mg] Med 04/08/20 22:00 Discontinued 20 mg PO BID Quetiapine Fumarate 100 mg [Seroquel 100 MG] Med 04/09/20 10:00 Active 200 mg PO QAM Quetiapine Fumarate 100 mg [Seroquel 100 MG] Med 04/08/20 22:00 Active 300 mg PO HS Ringers Solution,Lactated [Lactated Ringers] 1,000 ml Med 04/08/20 14:50 Discontinued IV 999 mls/hr Ringers Solution,Lactated [Lactated Ringers] 1,000 ml Med 04/08/20 14:51 Discontinued IV 999 mls/hr Sertraline HCl 50 mg [Zoloft 50 mg Tablet] Med 04/09/20 10:00 Active 200 mg PO DAILY Tizanidine HCl 4 mg [Zanaflex 4 MG] Med 04/08/20 22:00 Active 4 mg PO TID BiPap/CPAP STAT RT 04/08/20 13:10 Completed Oxygen Nasal Cannula 3 lpm RT 04/08/20 17:37 Active Pulse Oximetry .spot check RT 04/08/20 18:25 Active Respiratory Therapy Assessment DAILY RT 04/08/20 13:43 Completed Respiratory Therapy Assessment DAILY RT 04/08/20 18:24 Active Respiratory Therapy Consult ROUTINE RT 04/08/20 17:37 Completed Code(s): J96.00 - ACUTE RESPIRATORY FAILURE, UNSP W HYPOXIA OR HYPERCAPNIA (2) COPD exacerbation Current Visit: Yes Status: Acute Assessment & Plan: Last Vital Signs Temp 97.7 F 04/09/20 07:45 Pulse 92 H 04/09/20 07:45 Resp 18 04/09/20 07:45 BP 148/70 04/09/20 07:45 Pulse Ox 95 04/09/20 07:45 Allergies morphine Allergy (Severe, Verified 04/08/20 13:14) Fainting oxycodone Allergy (Verified 04/08/20 13:14) Shortness of Breath Penicillins Allergy (Verified 04/08/20 13:14) oxymorphone Adverse Reaction (Severe, Verified 04/08/20 17:48) Fainting [place] Adverse Reaction (Intermediate, Verified 04/08/20 13:14) Headache omeprazole Adverse Reaction (Intermediate, Verified 04/08/20 13:14) Stomach Pain bupropion HCl [From Wellbutrin] Adverse Reaction (Mild, Verified 04/08/20 13:14) Hives Active Medications Albuterol/Ipratropium (Duoneb 0.5-3 Mg/3 Ml Neb) 3 ml IH Q4HRT [facility] Stop: 05/08/20 18:59 Last Admin: 04/09/20 06:58 Dose: 3 ml Documented by: Clonazepam (Klonopin) 2 mg PO BID [facility] Stop: 05/08/20 21:59 Last Admin: 04/08/20 21:15 Dose: 2 mg Documented by: Enoxaparin Sodium (Enoxaparin Sodium) 40 mg SQ Q24H [facility] Stop: 05/08/20 19:59 Last Admin: 04/08/20 21:10 Dose: 40 mg Documented by: Famotidine (Pepcid 20 Mg) 40 mg PO BID [facility] Stop: 05/09/20 09:59 Gabapentin (Neurontin 400 Mg) 2,400 mg PO HS [facility] Stop: 05/09/20 21:59 Gabapentin (Neurontin 300 Mg) 600 mg PO DAILY [facility] Stop: 05/09/20 09:59 Ceftriaxone Sodium/Dextrose (Rocephin 1 Gm-D5w 50 Ml Bag) 1 g in 50 mls @ 100 mls/hr IV Q24H10 VALERY Stop: 05/09/20 09:59 Azithromycin (Zithromax 500 Mg/ 250 Ml Nacl Premix) 500 mg in 250 mls @ 250 mls/hr IV Q24H [facility]ERY Stop: 05/09/20 19:59 Isosorbide Mononitrate (Imdur 30 Mg) 30 mg PO DAILY [facility] Stop: 05/09/20 09:59 Levothyroxine Sodium (Synthroid 25 Mcg) 25 mcg PO DAILY [facility] Stop: 05/09/20 09:59 Methylprednisolone Sodium Succinate (Solu-Medrol 125 Mg) 80 mg IV Q6HT [facility] Stop: 05/08/20 17:59 Last Admin: 04/09/20 06:06 Dose: 80 mg Documented by: Multivitamins Therapeutic (Theragran Multivitamin) 1 tab PO DAILY [facility] Stop: 05/09/20 09:59 Nitroglycerin (Nitrostat 0.4 Mg Tablet) 0.4 mg SL Q5MIN PRN MR X 3 PRN PRN Reason: CHEST PAIN Stop: 05/08/20 20:50 Quetiapine Fumarate (Seroquel 100 Mg) 300 mg PO HS [facility] Stop: 05/08/20 21:59 Last Admin: 04/08/20 21:11 Dose: 300 mg Documented by: Quetiapine Fumarate (Seroquel 100 Mg) 200 mg PO QAM [facility] Stop: 05/09/20 09:59 Fluticasone/Salmeterol (Advair Hfa 115/ Common Canister*) 2 puff IH BIDRT [facility] Stop: 05/08/20 18:59 Last Admin: 04/09/20 07:00 Dose: 2 puff Documented by: Sertraline HCl (Zoloft 50 Mg Tablet) 200 mg PO DAILY [facility] Stop: 05/09/20 09:59 Tizanidine HCl (Zanaflex 4 Mg) 4 mg PO TID [facility] Stop: 05/08/20 21:59 Last Admin: 04/08/20 21:10 Dose: 4 mg Documented by: Intake & Output 04/08/20 04/09/20 11:59 11:59 Intake Total 720 Output Total 900 Balance -180 Weight 80.2 kg Orders 04/08/20 18:24 Respiratory Therapy Assessment DAILY 04/08/20 18:25 Pulse Oximetry .spot check 04/08/20 19:00 Fluticasone/Salmeterol [Advair Hfa Common canister*] 2 puff IH BIDRT 04/08/20 20:51 Nitroglycerin 0.4 mg Tablet [Nitrostat 0.4 MG Tablet] 0.4 mg SL Q5MIN PRN MR X 3 PRN 04/08/20 22:00 Clonazepam [Klonopin] 2 mg PO BID Quetiapine Fumarate 100 mg [Seroquel 100 MG] 300 mg PO HS Tizanidine HCl 4 mg [Zanaflex 4 MG] 4 mg PO TID 04/09/20 10:00 Gabapentin 300 mg [Neurontin 300 mg] 600 mg PO DAILY Isosorbide Mononitrate 30 mg [Imdur 30 MG] 30 mg PO DAILY Levothyroxine Sodium 25 Mcg [Synthroid 25 Mcg] 25 mcg PO DAILY Multivitamins,Therapeutic Tab* [Theragran Multivitamin] 1 tab PO DAILY Quetiapine Fumarate 100 mg [Seroquel 100 MG] 200 mg PO QAM Sertraline HCl 50 mg [Zoloft 50 mg Tablet] 200 mg PO DAILY 04/09/20 22:00 Gabapentin 400 mg [Neurontin 400 MG] 2,400 mg PO HS Lab Tests 04/08/20 04/08/20 04/08/20 13:10 13:15 13:15 WBC 30.5 H* RBC 3.15 L Hgb 7.5 L Hct 26.9 L MCV 85.4 MCH 23.8 L MCHC 27.9 L RDW 18.2 H Plt Count 602 H MPV 8.9 Segmented Neutrophils 84 H Band Neutrophils 10 H Lymphocytes (Manual) 4 L Monocytes (Manual) 2 Nucleated RBCs 1 Hypochromia 1+ Toxic Granulation 2+ Platelet Estimate INCREASED RBC Morphology ABNORMAL Polychromasia 1+ Anisocytosis 1+ Microcytosis 1+ Smear Path Review Pending D-Dimer pO2/FiO2 Ratio 60.0 VBG pH 7.48 H VBG pCO2 at Pat Temp 41 L VBG pO2 at Pat Temp 42 H VBG HCO3 30.5 H* VBG O2 Sat (Paulo) 73.7 L VBG Base Excess 6.4 H VBG Hemoglobin 8.0 VBG Carboxyhemoglobin 1.6 POC Potassium 3.6 Sodium 135 L Potassium 3.8 Chloride 99 Carbon Dioxide 31 H Anion Gap 9.1 BUN 16 Creatinine 0.99 Estimated GFR > 60.0 Glucose 95 Lactic Acid 2.2 H Calcium 9.2 Troponin I NT-Pro-B Natriuret Pep 337 Urine Color Urine Appearance Urine pH Ur Specific [place] Urine Protein Urine Ketones Urine Blood Urine Nitrite Urine Bilirubin Urine Urobilinogen Ur Leukocyte Esterase Urine WBC (Auto) Urine RBC (Auto) U Epithel Cells (Auto) Urine Bacteria (Auto) Urine Mucus (Auto) Urine Culture Reflexed Urine Glucose SARS-CoV-2 (PCR) ABO Group Rh Factor Antibody Screen Crossmatch 04/08/20 04/08/20 04/08/20 13:15 13:15 13:40 WBC RBC Hgb Hct MCV MCH MCHC RDW Plt Count MPV Segmented Neutrophils Band Neutrophils Lymphocytes (Manual) Monocytes (Manual) Nucleated RBCs Hypochromia Toxic Granulation Platelet Estimate RBC Morphology Polychromasia Anisocytosis Microcytosis Smear Path Review D-Dimer 1521 H* pO2/FiO2 Ratio VBG pH VBG pCO2 at Pat Temp VBG pO2 at Pat Temp VBG HCO3 VBG O2 Sat (Paulo) VBG Base Excess VBG Hemoglobin VBG Carboxyhemoglobin POC Potassium Sodium Potassium Chloride Carbon Dioxide Anion Gap BUN Creatinine Estimated GFR Glucose Lactic Acid Calcium Troponin I 0.024 NT-Pro-B Natriuret Pep Urine Color Urine Appearance Urine pH Ur Specific [place] Urine Protein Urine Ketones Urine Blood Urine Nitrite Urine Bilirubin Urine Urobilinogen Ur Leukocyte Esterase Urine WBC (Auto) Urine RBC (Auto) U Epithel Cells (Auto) Urine Bacteria (Auto) Urine Mucus (Auto) Urine Culture Reflexed Urine Glucose SARS-CoV-2 (PCR) ABO Group A Rh Factor POSITIVE Antibody Screen NEGATIVE Crossmatch COMPATIBLE 04/08/20 04/08/20 04/08/20 13:40 13:51 15:28 WBC RBC Hgb Hct MCV MCH MCHC RDW Plt Count MPV Segmented Neutrophils Band Neutrophils Lymphocytes (Manual) Monocytes (Manual) Nucleated RBCs Hypochromia Toxic Granulation Platelet Estimate RBC Morphology Polychromasia Anisocytosis Microcytosis Smear Path Review D-Dimer pO2/FiO2 Ratio VBG pH VBG pCO2 at Pat Temp VBG pO2 at Pat Temp VBG HCO3 VBG O2 Sat (Paulo) VBG Base Excess VBG Hemoglobin VBG Carboxyhemoglobin POC Potassium Sodium Potassium Chloride Carbon Dioxide Anion Gap BUN Creatinine Estimated GFR Glucose Lactic Acid 1.4 Calcium Troponin I NT-Pro-B Natriuret Pep Urine Color Urine Appearance Urine pH Ur Specific [place] Urine Protein Urine Ketones Urine Blood Urine Nitrite Urine Bilirubin Urine Urobilinogen Ur Leukocyte Esterase Urine WBC (Auto) Urine RBC (Auto) U Epithel Cells (Auto) Urine Bacteria (Auto) Urine Mucus (Auto) Urine Culture Reflexed Urine Glucose SARS-CoV-2 (PCR) NEGATIVE ABO Group Rh Factor Antibody Screen Crossmatch COMPATIBLE 04/08/20 04/08/20 04/08/20 16:00 18:30 19:40 WBC RBC Hgb Hct MCV MCH MCHC RDW Plt Count MPV Segmented Neutrophils Band Neutrophils Lymphocytes (Manual) Monocytes (Manual) Nucleated RBCs Hypochromia Toxic Granulation Platelet Estimate RBC Morphology Polychromasia Anisocytosis Microcytosis Smear Path Review D-Dimer pO2/FiO2 Ratio VBG pH VBG pCO2 at Pat Temp VBG pO2 at Pat Temp VBG HCO3 VBG O2 Sat (Paulo) VBG Base Excess VBG Hemoglobin VBG Carboxyhemoglobin POC Potassium Sodium Potassium Chloride Carbon Dioxide Anion Gap BUN Creatinine Estimated GFR Glucose Lactic Acid Calcium Troponin I 0.051 H* 0.036 H* NT-Pro-B Natriuret Pep Urine Color YELLOW Urine Appearance CLEAR Urine pH 5.0 Ur Specific [place] 1.010 Urine Protein NEGATIVE Urine Ketones NEGATIVE Urine Blood NEGATIVE Urine Nitrite NEGATIVE Urine Bilirubin NEGATIVE Urine Urobilinogen NEGATIVE Ur Leukocyte Esterase NEGATIVE Urine WBC (Auto) NONE Urine RBC (Auto) NONE U Epithel Cells (Auto) NONE Urine Bacteria (Auto) NONE Urine Mucus (Auto) SLIGHT Urine Culture Reflexed ORDERED SEPARATELY Urine Glucose NEGATIVE SARS-CoV-2 (PCR) ABO Group Rh Factor Antibody Screen Crossmatch 04/09/20 04/09/20 04/09/20 03:25 03:25 03:30 WBC 27.6 H* RBC 3.40 L Hgb 8.7 L 8.8 L Hct 29.6 L 29.3 L MCV 87.1 MCH 25.6 L MCHC 29.4 L RDW 17.3 H Plt Count 483 H MPV 9.4 Segmented Neutrophils Band Neutrophils Lymphocytes (Manual) Monocytes (Manual) Nucleated RBCs Hypochromia Toxic Granulation Platelet Estimate RBC Morphology Polychromasia Anisocytosis Microcytosis Smear Path Review D-Dimer pO2/FiO2 Ratio VBG pH VBG pCO2 at Pat Temp VBG pO2 at Pat Temp VBG HCO3 VBG O2 Sat (Paulo) VBG Base Excess VBG Hemoglobin VBG Carboxyhemoglobin POC Potassium Sodium 133 L Potassium 4.0 Chloride 100 Carbon Dioxide 32 H Anion Gap 6.0 BUN 19 H Creatinine 0.72 Estimated GFR > 60.0 Glucose 166 H Lactic Acid Calcium 8.8 Troponin I NT-Pro-B Natriuret Pep Urine Color Urine Appearance Urine pH Ur Specific [place] Urine Protein Urine Ketones Urine Blood Urine Nitrite Urine Bilirubin Urine Urobilinogen Ur Leukocyte Esterase Urine WBC (Auto) Urine RBC (Auto) U Epithel Cells (Auto) Urine Bacteria (Auto) Urine Mucus (Auto) Urine Culture Reflexed Urine Glucose SARS-CoV-2 (PCR) ABO Group Rh Factor Antibody Screen Crossmatch 04/09/20 03:30 WBC RBC Hgb Hct MCV MCH MCHC RDW Plt Count MPV Segmented Neutrophils Band Neutrophils Lymphocytes (Manual) Monocytes (Manual) Nucleated RBCs Hypochromia Toxic Granulation Platelet Estimate RBC Morphology Polychromasia Anisocytosis Microcytosis Smear Path Review D-Dimer pO2/FiO2 Ratio VBG pH VBG pCO2 at Pat Temp VBG pO2 at Pat Temp VBG HCO3 VBG O2 Sat (Paulo) VBG Base Excess VBG Hemoglobin VBG Carboxyhemoglobin POC Potassium Sodium Potassium Chloride Carbon Dioxide Anion Gap BUN Creatinine Estimated GFR Glucose Lactic Acid Calcium Troponin I < 0.012 NT-Pro-B Natriuret Pep Urine Color Urine Appearance Urine pH Ur Specific [place] Urine Protein Urine Ketones Urine Blood Urine Nitrite Urine Bilirubin Urine Urobilinogen Ur Leukocyte Esterase Urine WBC (Auto) Urine RBC (Auto) U Epithel Cells (Auto) Urine Bacteria (Auto) Urine Mucus (Auto) Urine Culture Reflexed Urine Glucose SARS-CoV-2 (PCR) ABO Group Rh Factor Antibody Screen Crossmatch Code(s): J44.1 - CHRONIC OBSTRUCTIVE PULMONARY DISEASE W (ACUTE) EXACERBATION
--- NOTE | 2020-04-09 09:23 | XRAY ---
Indication: Pneumonia. COPD. Comparison: One day earlier. PA/lateral chest better inflated with grossly stable diffuse bilateral patchy airspace disease without consolidation/effusion. Heart is not enlarged with stable hiatal hernia. No new cardiopulmonary abnormalities.
[2020-04-09] MEDS ORDERED: NON-FORMULARY ITEM (Prenatal Vits W-Ca,Fe,Fa(<1mg) [Prenatal] 1 EACH) PO SCH (10:00)
[2020-04-09] MEDS ORDERED: SERTRALINE HCL PO SCH (10:00)
[2020-04-09] MEDS ORDERED: ENOXAPARIN SODIUM SQ SCH (10:00)
[2020-04-09] MEDS: NEURONTIN 300 MG PO SCH (10:11)
[2020-04-09] MEDS: KLONOPIN PO SCH ×2 (10:11→21:07)
[2020-04-09] MEDS: Imdur 30 MG PO SCH (10:11)
[2020-04-09] MEDS: Pepcid 20 MG PO SCH ×2 (10:12→21:06)
[2020-04-09] MEDS: ROCEPHIN 1 Gm-D5w 50 ml Bag** 1 G/50 ML IVPB IV SCH (10:12)
[2020-04-09] MEDS: ZOLOFT 50 MG TABLET PO SCH (10:12)
[2020-04-09] MEDS: SYNTHROID 25 MCG PO SCH (10:13)
[2020-04-09] MEDS: Zanaflex 4 MG PO SCH ×3 (10:13→21:05)
[2020-04-09] MEDS: THERAGRAN MULTIVITAMIN PO SCH (10:13)
[2020-04-09] MEDS: Seroquel 100 MG PO SCH ×2 (10:13→21:07)
[2020-04-09] MEDS: TYLENOL EXTRA STRENGTH 500 MG PO PRN ×2 (12:11→18:07)
[2020-04-09] MEDS: ENOXAPARIN SODIUM SQ SCH (19:51)
[2020-04-09] MEDS: Neurontin 400 MG PO SCH (21:10)
[2020-04-09] MEDS: Zithromax 500 MG/ 250 ML NaCl Premix 500 MG/250 ML IVPB IV SCH (21:22)
[2020-04-10] MEDS: solu-MEDROL 125 MG IV SCH ×5 (00:28→23:33)
[2020-04-10] MEDS: DUONEB 0.5-3 MG/3 ml Neb IH SCH ×6 (03:04→23:32)
[2020-04-10] MEDS: Advair Hfa 115/21 Common canister IH SCH ×2 (07:14→19:57)
[2020-04-10] MEDS: THERAGRAN MULTIVITAMIN PO SCH (10:25)
[2020-04-10] MEDS: TYLENOL EXTRA STRENGTH 500 MG PO PRN ×2 (10:25→19:36)
[2020-04-10] MEDS: Imdur 30 MG PO SCH (10:26)
[2020-04-10] MEDS: Zanaflex 4 MG PO SCH ×3 (10:26→21:08)
[2020-04-10] MEDS: SYNTHROID 25 MCG PO SCH (10:26)
[2020-04-10] MEDS: Seroquel 100 MG PO SCH ×2 (10:26→21:08)
[2020-04-10] MEDS: Pepcid 20 MG PO SCH ×2 (10:26→21:08)
[2020-04-10] MEDS: NEURONTIN 300 MG PO SCH (10:26)
[2020-04-10] MEDS: ZOLOFT 50 MG TABLET PO SCH (10:27)
[2020-04-10] MEDS: ROCEPHIN 1 Gm-D5w 50 ml Bag** 1 G/50 ML IVPB IV SCH (10:27)
[2020-04-10] MEDS: KLONOPIN PO SCH ×2 (10:27→21:08)
--- NOTE | 2020-04-10 19:13 | PCM.NOTE ---
Date and Time: 04/10/201911 Subjective Assessment: doing better - Review of Systems Constitutional: No Fever, No Chills Eyes: No Symptoms Ears, Nose, & Throat: No Symptoms Respiratory: No Cough, No Short Of Breath Cardiac: No Chest Pain, No Edema, No Syncope Abdominal/Gastrointestinal: No Abdominal Pain, No Nausea, No Vomiting, No Diarrhea Genitourinary Symptoms: No Dysuria Musculoskeletal: No Back Pain, No Neck Pain Skin: No Rash Neurological: No Dizziness, No Focal Weakness, No Sensory Changes Psychological: No Symptoms Endocrine: No Symptoms Hematologic/Lymphatic: No Symptoms Immunological/Allergic: No Symptoms Objective Exam General Appearance: no apparent distress, alert Neurologic Exam: alert, oriented x 3, cooperative, normal mood/affect, nml cerebellar function, sensation nml, No motor deficits Skin Exam: normal color, warm, dry Eye Exam: PERRL, EOMI, eyes nml inspection Ears, Nose, Throat Exam: normal ENT inspection, pharynx normal, moist mucous membranes Neck Exam: normal inspection, non-tender, supple, full range of motion Respiratory Exam: normal breath sounds, diminished breath sounds, crackles/rales, rhonchi, wheezing, No respiratory distress Cardiovascular Exam: regular rate/rhythm, normal heart sounds Gastrointestinal/Abdomen Exam: soft, No tenderness, No mass Extremity Exam: normal inspection, normal range of motion Back Exam: normal inspection, normal range of motion, No CVA tenderness, No vertebral tenderness Pelvic Exam: deferred Rectal Exam: deferred OBJECTIVE DATA Vital Signs: Vital Signs - 24 hr Temp Pulse Resp BP Pulse Ox 04/10/20 15:59 98.3 F 95 H 16 138/76 96 04/10/20 14:57 96 H 20 97 04/10/20 11:39 98.5 F 96 H 16 159/78 99 04/10/20 11:37 100 H 20 96 04/10/20 07:10 94 H 20 94 L 04/10/20 06:38 98.7 F 86 16 179/91 96 04/10/20 04:00 98 F 70 16 128/72 92 L 04/10/20 03:05 76 20 93 L 04/09/20 23:43 98.1 F 96 H 20 125/63 97 04/09/20 22:43 81 20 97 04/09/20 20:00 98.8 F 92 H 20 121/68 97 Pain Assessment - Last Documented Pain Intensity 7 Pain Scale Used 0-10 Pain Scale Intake and Output: Intake & Output 04/08/20 04/09/20 04/10/20 04/11/20 11:59 11:59 11:59 11:59 Intake Total 720 1060 1060 Output Total 900 400 950 Balance -180 660 110 Weight 80.2 kg 78.3 kg 78.3 kg Radiology Exams: Radiology Procedures Category Date Time Status CHEST 2 VIEWS (PA AND LAT) Routine Exams 04/09/20 08:00 Completed Multi-Disciplinary Progress Notes: Multi-Disciplinary Progress Notes 04/10/20 11:55 Case Management Note by Anabela Brown NO CHANGE IN DC PLANS AT THIS TIME Initialized on 04/10/20 11:55 - END OF NOTE Assessment/Plan (1) COPD exacerbation Current Visit: Yes Status: Acute Assessment & Plan: Chief Complaint Diagnosis severe shortness of breath for 2 days Allergies Allergy/AdvReac Type Severity Reaction Status Date / Time morphine Allergy Severe Fainting Verified 04/08/20 13:14 oxycodone Allergy Shortness Verified 04/08/20 13:14 of Breath Penicillins Allergy Verified 04/08/20 13:14 oxymorphone AdvReac Severe Fainting Verified 04/08/20 17:48 [place] AdvReac Intermediate Headache Verified 04/08/20 13:14 omeprazole AdvReac Intermediate Stomach Verified 04/08/20 13:14 Pain bupropion HCl AdvReac Mild Hives Verified 04/08/20 13:14 [From Wellbutrin] Vital Signs (Last 24 hours) Temp Pulse Resp BP Pulse Ox 04/10/20 15:59 98.3 F 95 H 16 138/76 96 04/10/20 14:57 96 H 20 97 04/10/20 11:39 98.5 F 96 H 16 159/78 99 04/10/20 11:37 100 H 20 96 04/10/20 07:10 94 H 20 94 L 04/10/20 06:38 98.7 F 86 16 179/91 96 04/10/20 04:00 98 F 70 16 128/72 92 L 04/10/20 03:05 76 20 93 L 04/09/20 23:43 98.1 F 96 H 20 125/63 97 04/09/20 22:43 81 20 97 04/09/20 20:00 98.8 F 92 H 20 121/68 97 Home Medications Medication Instructions Recorded Confirmed Last Taken Type Gabapentin 600 mg PO DAILY 04/08/20 04/08/20 04/07/20 History Gabapentin [Neurontin] 2,400 mg PO HS 04/08/20 04/08/20 Unknown History Current Medications Generic Name Dose Route Start Last Admin Trade Name Freq PRN Reason Stop Dose Admin Acetaminophen 500 mg 04/09/20 11:54 04/10/20 10:25 Tylenol Extra Strength 500 Mg PO 05/09/20 11:53 500 mg Q6H PRN PRN Administration PAIN AND/OR FEVER Albuterol/Ipratropium 3 ml 04/08/20 19:00 04/10/20 14:53 Duoneb 0.5-3 Mg/3 Ml Neb IH 05/08/20 18:59 3 ml Q4HRT VALERY Administration Clonazepam 2 mg 04/08/20 22:00 04/10/20 10:27 Klonopin PO 05/08/20 21:59 2 mg BID VALERY Administration Enoxaparin Sodium 40 mg 04/08/20 20:00 04/09/20 19:51 Enoxaparin Sodium SQ 05/08/20 19:59 40 mg Q24H VALERY Administration Famotidine 40 mg 04/09/20 10:00 04/10/20 10:26 Pepcid 20 Mg PO 05/09/20 09:59 40 mg BID VALERY Administration Gabapentin 2,400 mg 04/09/20 22:00 04/09/20 21:10 Neurontin 400 Mg PO 05/09/20 21:59 2,400 mg HS VALERY Administration Gabapentin 600 mg 04/09/20 10:00 04/10/20 10:26 Neurontin 300 Mg PO 05/09/20 09:59 600 mg DAILY VALERY Administration Ceftriaxone Sodium/Dextrose 1 g in 50 mls @ 100 mls/hr 04/09/20 10:00 04/10/20 10:27 Rocephin 1 Gm-D5w 50 Ml Bag IV 05/09/20 09:59 100 mls/hr Q24H10 VALERY Administration Azithromycin 500 mg in 250 mls @ 250 mls/hr 04/09/20 20:00 04/09/20 21:22 Zithromax 500 Mg/ 250 Ml Nacl Premix IV 05/09/20 19:59 250 mls/hr Q24H VALERY Administration Isosorbide Mononitrate 30 mg 04/09/20 10:00 04/10/20 10:26 Imdur 30 Mg PO 05/09/20 09:59 30 mg DAILY VALERY Administration Levothyroxine Sodium 25 mcg 04/09/20 10:00 04/10/20 10:26 Synthroid 25 Mcg PO 05/09/20 09:59 25 mcg DAILY VALERY Administration Methylprednisolone Sodium Succinate 80 mg 04/08/20 18:00 04/10/20 18:45 Solu-Medrol 125 Mg IV 05/08/20 17:59 80 mg Q6HT VALERY Administration Multivitamins Therapeutic 1 tab 04/09/20 10:00 04/10/20 10:25 Theragran Multivitamin PO 05/09/20 09:59 1 tab DAILY VALERY Administration Nitroglycerin 0.4 mg 04/08/20 20:51 Nitrostat 0.4 Mg Tablet SL 05/08/20 20:50 Q5MIN PRN MR X 3 PRN CHEST PAIN Quetiapine Fumarate 300 mg 04/08/20 22:00 04/09/20 21:07 Seroquel 100 Mg PO 05/08/20 21:59 300 mg HS VALERY Administration Quetiapine Fumarate 200 mg 04/09/20 10:00 04/10/20 10:26 Seroquel 100 Mg PO 05/09/20 09:59 200 mg QAM VALERY Administration Fluticasone/Salmeterol 2 puff 04/08/20 19:00 04/10/20 07:14 Advair Hfa 115/21 Common Canister* IH 05/08/20 18:59 2 puff BIDRT VALERY Administration Sertraline HCl 200 mg 04/09/20 10:00 04/10/20 10:27 Zoloft 50 Mg Tablet PO 05/09/20 09:59 200 mg DAILY VAELRY Administration Tizanidine HCl 4 mg 04/08/20 22:00 04/10/20 15:17 Zanaflex 4 Mg PO 05/08/20 21:59 4 mg TID VALERY Administration Discontinued Medications Generic Name Dose Route Start Last Admin Trade Name Yordan PRN Reason Stop Dose Admin Albuterol Sulfate Confirm 04/08/20 13:12 Proventil Solution 2.5 Mg/0.5 Ml Administered 04/08/20 13:13 Dose 10 mg IH .STK-MED ONE Albuterol Sulfate 10 mg 04/08/20 13:17 04/08/20 13:36 Ventolin 20 Ml Bottle IH 04/08/20 13:18 10 mg STAT ONE Administration Albuterol/Ipratropium 3 ml 04/08/20 13:37 04/08/20 13:38 Duoneb 0.5-3 Mg/3 Ml Neb IH 04/08/20 13:38 3 ml STAT ONE Administration Albuterol/Ipratropium Confirm 04/08/20 13:04 Duoneb 0.5-3 Mg/3 Ml Neb Administered 04/08/20 13:05 Dose 3 ml IH .STK-MED ONE Aspirin 324 mg 04/08/20 16:31 04/08/20 16:34 Baby Aspirin 81 Mg Chew PO 04/08/20 16:32 324 mg STAT ONE Administration Clonazepam 2 mg 04/08/20 22:00 Klonopin 0.5 Mg PO 05/08/20 21:59 BID VALERY Clonazepam Confirm 04/08/20 21:00 Klonopin Administered 04/08/20 21:01 Dose 2 mg .ROUTE .STK-MED ONE Enoxaparin Sodium 40 mg 04/09/20 10:00 Enoxaparin Sodium SQ 05/09/20 09:59 DAILY VALERY Famotidine 20 mg 04/08/20 22:00 04/08/20 21:17 Pepcid 20 Mg PO 05/08/20 21:59 20 mg Q12HT VALERY Administration Gabapentin 800 mg 04/08/20 22:00 Neurontin 300 Mg PO 05/08/20 21:59 HS VALERY Gabapentin Confirm 04/08/20 21:00 Neurontin 400 Mg Administered 04/08/20 21:01 Dose 800 mg .ROUTE .STK-MED ONE Gabapentin 400 mg 04/08/20 22:00 Neurontin 400 Mg PO 05/08/20 21:59 HS VALERY Gabapentin 800 mg 04/08/20 22:00 04/08/20 21:15 Neurontin 400 Mg PO 05/08/20 21:59 800 mg HS VALERY Administration Gabapentin 1,600 mg 04/08/20 21:30 04/08/20 21:28 Neurontin 400 Mg PO 04/08/20 21:31 1,600 mg TID ONE Administration Azithromycin 500 mg/ Sodium 250 mls @ 125 mls/hr 04/08/20 13:14 04/08/20 20:18 Chloride IV 04/08/20 15:13 Not Given STAT ONE Ceftriaxone Sodium/Dextrose 1 g in 50 mls @ 100 mls/hr 04/08/20 13:14 04/08/20 14:22 Rocephin 1 Gm-D5w 50 Ml Bag IV 04/08/20 13:43 Infused STAT STA Infusion Ceftriaxone Sodium/Dextrose Confirm 04/08/20 13:26 Rocephin 1 Gm-D5w 50 Ml Bag Administered 04/08/20 13:27 Dose 1 g in 50 mls @ ud IV .STK-MED ONE Lactated Ringer's 1,000 mls @ 999 mls/hr 04/08/20 14:50 04/08/20 20:18 Lactated Ringers IV 04/08/20 15:50 Not Given .Q1H1M ONE Lactated Ringer's 1,000 mls @ 999 mls/hr 04/08/20 14:51 04/08/20 20:18 Lactated Ringers IV 04/08/20 15:51 Not Given .Q1H1M ONE Sodium Chloride Confirm 04/08/20 18:13 Sodium Chloride 0.9% 500 Ml Administered 04/08/20 18:14 Dose 500 mls @ ud IV .STK-MED ONE Sodium Chloride 500 mls @ 50 mls/hr 04/08/20 19:00 04/08/20 18:45 Sodium Chloride 0.9% 500 Ml IV 05/08/20 18:59 50 mls/hr .Q10H VALERY Administration Prednisone 20 mg 04/08/20 22:00 Deltasone 20 Mg PO 05/08/20 21:59 BID VALERY Sodium Chloride Confirm 04/08/20 13:13 Sodium Chloride 3 Ml Ud Nebules Administered 04/08/20 13:14 Dose 6 ml IH .STK-MED ONE Intake & Output (Last 24 hours) 04/08/20 04/09/20 04/10/20 04/11/20 11:59 11:59 11:59 11:59 Intake Total 720 1060 1060 Output Total 900 400 950 Balance -180 660 110 Weight 80.2 kg 78.3 kg 78.3 kg Microbiology Results (Last 24 hours) 04/08/20 18:30 Catherized Urine Culture - Final <10K NORMAL SKIN ADRIAN PROBABLE SKIN CONTAMINANT 04/08/20 04:00 Sputum - Expectorant Gram Stain - Final 04/08/20 04:00 Sputum - Expectorant Sputum Culture - Preliminary GRAM NEGATIVE ID AND SENSITIVITY PENDING 04/08/20 13:20 Blood Blood Culture Gram Stain - Pending 04/08/20 13:20 Blood Blood Culture - Preliminary NO GROWTH TO DATE 04/08/20 13:15 Blood Blood Culture Gram Stain - Pending 04/08/20 13:15 Blood Blood Culture - Preliminary NO GROWTH TO DATE Orders (Last 24 hours) Category Date Time Status Azithromycin 500 mg/250 ml [Zithromax 500 MG/ 250 ML Med 04/09/20 20:00 Active NaCl Premix] 500 mg in 250 ml IV Q24H Gabapentin 400 mg [Neurontin 400 MG] Med 04/09/20 22:00 Active 2,400 mg PO HS Patient Care Notes (Last 24 hours) 04/10/20 11:55 Case Management Note by Anabela Brown NO CHANGE IN DC PLANS AT THIS TIME Initialized on 04/10/20 11:55 - END OF NOTE 04/10/20 11:49 SBAR Note by Kera Robertson SITUATION I am calling about REILLY BENITES the patient's code status is Full Code The problem I am calling about is: notified Dr. Garrison of severe sepsis risk. no orders given ASSESSMENT RECOMMENDATION Physician notified at 1149 New Orders received: Vital Signs (Last 4 hours) Temp Pulse Resp BP Pulse Ox 04/10/20 11:39 98.5 F 96 H 16 159/78 99 04/10/20 11:37 100 H 20 96 Diagnois, Code Status Admitted From Emergency Dept Diagnosis severe shortness of breath for 2 days Resucitation Status Full Code Intake and Output 24 Hours 02/10/21 02/11/21 06:59 06:59 Intake Total 720 580 Output Total 400 Balance 320 580 Weight 78.3 kg Intake: Intake, Oral Amount 720 580 Output: Output, Urine Amount 400 Physical Assessment Anxiety Level None,at ease,Awake,Calm Mental Status Alert Patient Orientation Person,Place,Time Coma Scale Total 15 Breath Sounds [Posterior Wheezes Bilateral Throughout] Breath Sounds [Anterior Diminished Bilateral Throughout] Breath Sounds [Throughout] Diminished Cardiac Rhythm-S[facility] Sinus Tachycardia Bowel Sounds [All Quadrants] Present Abdomen Description Soft,Round,Non-Tender Date Michele Cath Inserted 01/18/20 Urine Appearance Not Assessed Urine Color Light Lauryn Skin Color Pale Skin Temperature Warm Pain Scale (Last 24 Hours) Pain Intensity 7 Pain Intensity 0 Pain Intensity 5 Pain Intensity 7 Pain Intensity 8 Pain Intensity 7 Pain Intensity 0 Pain Intensity 3 Pain Intensity 8 Pain Intensity 0 PAST MEDICAL HISTORY Neurological History Migraines ENT History No Pertinent History Endocrine Medical History Hypothyroidism Respiratory History Asthma,Bronchitis,COPD,Pneumonia Cardiac History Congestive Heart Failure,Coronary Artery Disease ,High Cholesterol GI Medical History GERD,Hernia,Polyps History No Pertinent History Reproductive Disorders Fibroids Pyscho-Social History Anxiety,Bipolar,Depression Communicable Disease No Pertinent History Comment 2 LEAKY VALVES BORDERLINE PERSONALITY DISORDER, PTSD, manic depressive bone deficiency Microbiology Results (Last 24 Hours) 04/08/20 18:30 Urine Culture - Final Catherized <10K NORMAL SKIN ADRIAN PROBABLE SKIN CONTAMINANT 04/08/20 04:00 Gram Stain - Final Sputum - Expectorant Sputum Culture - Preliminary GRAM NEGATIVE ID AND SENSITIVITY PENDING 04/08/20 13:20 Blood Culture Gram Stain - Pending Blood Blood Culture - Preliminary NO GROWTH TO DATE 04/08/20 13:15 Blood Culture Gram Stain - Pending Blood Blood Culture - Preliminary NO GROWTH TO DATE Orders (Last 24 Hours) Category Date Time Status Acetaminophen 500 mg [Tylenol Extra Strength 500 mg* Med 04/09/20 11:54 Active ] 500 mg PO Q6H PRN PRN Azithromycin 500 mg/250 ml [Zithromax 500 MG/ 250 ML Med 04/09/20 20:00 Active NaCl Premix] 500 mg in 250 ml IV Q24H Gabapentin 400 mg [Neurontin 400 MG] Med 04/09/20 22:00 Active 2,400 mg PO HS Nursing Notes (Last 12 hours) 04/10/20 02:16 Nursing Note by Geraldine King 04/09/20; IV noted leaking, not salavagable w redress. new iv attempt x 2 per nohemy williamson Rn, Iv jozef Blankenship, attempt x 1 Initialized on 04/10/20 02:16 - END OF NOTE Active Visit Medications Generic Name Dose Route Start Last Admin Trade Name Freq PRN Reason Stop Dose Admin Acetaminophen 500 mg 04/09/20 11:54 04/10/20 10:25 Tylenol Extra Strength 500 Mg PO 05/09/20 11:53 500 mg Q6H PRN PRN Administration PAIN AND/OR FEVER Albuterol/Ipratropium 3 ml 04/08/20 19:00 04/10/20 11:33 Duoneb 0.5-3 Mg/3 Ml Neb IH 05/08/20 18:59 3 ml Q4HRT VALERY Administration Clonazepam 2 mg 04/08/20 22:00 04/10/20 10:27 Klonopin PO 05/08/20 21:59 2 mg BID VALERY Administration Enoxaparin Sodium 40 mg 04/08/20 20:00 04/09/20 19:51 Enoxaparin Sodium SQ 05/08/20 19:59 40 mg Q24H VALERY Administration Famotidine 40 mg 04/09/20 10:00 04/10/20 10:26 Pepcid 20 Mg PO 05/09/20 09:59 40 mg BID VALERY Administration Gabapentin 2,400 mg 04/09/20 22:00 04/09/20 21:10 Neurontin 400 Mg PO 05/09/20 21:59 2,400 mg HS VALERY Administration Gabapentin 600 mg 04/09/20 10:00 04/10/20 10:26 Neurontin 300 Mg PO 05/09/20 09:59 600 mg DAILY VALERY Administration Ceftriaxone Sodium/Dextrose 1 g in 50 mls @ 100 mls/hr 04/09/20 10:00 04/10/20 10:27 Rocephin 1 Gm-D5w 50 Ml Bag IV 05/09/20 09:59 100 mls/hr Q24H10 VALERY Administration Azithromycin 500 mg in 250 mls @ 250 mls/hr 04/09/20 20:00 04/09/20 21:22 Zithromax 500 Mg/ 250 Ml Nacl Premix IV 05/09/20 19:59 250 mls/hr Q24H VALERY Administration Isosorbide Mononitrate 30 mg 04/09/20 10:00 04/10/20 10:26 Imdur 30 Mg PO 05/09/20 09:59 30 mg DAILY VALERY Administration Levothyroxine Sodium 25 mcg 04/09/20 10:00 04/10/20 10:26 Synthroid 25 Mcg PO 05/09/20 09:59 25 mcg DAILY VALERY Administration Methylprednisolone Sodium Succinate 80 mg 04/08/20 18:00 04/10/20 06:17 Solu-Medrol 125 Mg IV 05/08/20 17:59 80 mg Q6HT VALERY Administration Multivitamins Therapeutic 1 tab 04/09/20 10:00 04/10/20 10:25 Theragran Multivitamin PO 05/09/20 09:59 1 tab DAILY VALERY Administration Nitroglycerin 0.4 mg 04/08/20 20:51 Nitrostat 0.4 Mg Tablet SL 05/08/20 20:50 Q5MIN PRN MR X 3 PRN CHEST PAIN Quetiapine Fumarate 300 mg 04/08/20 22:00 04/09/20 21:07 Seroquel 100 Mg PO 05/08/20 21:59 300 mg HS VALERY Administration Quetiapine Fumarate 200 mg 04/09/20 10:00 04/10/20 10:26 Seroquel 100 Mg PO 05/09/20 09:59 200 mg QAM VALERY Administration Fluticasone/Salmeterol 2 puff 04/08/20 19:00 04/10/20 07:14 Advair Hfa 115/ Common Canister* IH 05/08/20 18:59 2 puff BIDRT VALERY Administration Sertraline HCl 200 mg 04/09/20 10:00 04/10/20 10:27 Zoloft 50 Mg Tablet PO 05/09/20 09:59 200 mg DAILY VALERY Administration Tizanidine HCl 4 mg 04/08/20 22:00 04/10/20 10:26 Zanaflex 4 Mg PO 05/08/20 21:59 4 mg TID VALERY Administration Home Medications Medication Instructions Recorded Confirmed Last Taken Type Gabapentin 600 mg PO DAILY 04/08/20 04/08/20 04/07/20 History Gabapentin [Neurontin] 2,400 mg PO HS 04/08/20 04/08/20 Unknown History Initialized on 04/10/20 11:49 - END OF NOTE 04/10/20 02:16 Nursing Note by Geraldine King 04/09/20; IV noted leaking, not salavagable w redress. new iv attempt x 2 per nohemy williamson Rn, Iv establishedby Kunal Blankenship, attempt x 1 Initialized on 04/10/20 02:16 - END OF NOTE Code(s): J44.1 - CHRONIC OBSTRUCTIVE PULMONARY DISEASE W (ACUTE) EXACERBATION (2) Acute respiratory failure Current Visit: Yes Status: Acute Qualifiers: Respiratory failure complication: hypoxia and hypercapnia Qualified Code(s): J96.01 - Acute respiratory failure with hypoxia; J96.02 - Acute respiratory failure with hypercapnia Code(s): J96.00 - ACUTE RESPIRATORY FAILURE, UNSP W HYPOXIA OR HYPERCAPNIA
[2020-04-10] MEDS: Zithromax 500 MG/ 250 ML NaCl Premix 500 MG/250 ML IVPB IV SCH (19:37)
[2020-04-10] MEDS: ENOXAPARIN SODIUM SQ SCH (19:37)
[2020-04-10] MEDS: Neurontin 400 MG PO SCH (21:09)
[2020-04-11] MEDS: DUONEB 0.5-3 MG/3 ml Neb IH SCH ×6 (03:32→23:21)
[2020-04-11] MEDS: solu-MEDROL 125 MG IV SCH ×4 (06:35→23:45)
[2020-04-11] MEDS: Advair Hfa 115/21 Common canister IH SCH ×2 (07:04→19:45)
[2020-04-11] MEDS: Sodium Chloride 0.9% 500 ML 500 ML IV SCH (08:12)
[2020-04-11] MEDS: ZOLOFT 50 MG TABLET PO SCH (09:21)
[2020-04-11] MEDS: NEURONTIN 300 MG PO SCH (09:22)
[2020-04-11] MEDS: KLONOPIN PO SCH ×2 (09:22→22:00)
[2020-04-11] MEDS: SYNTHROID 25 MCG PO SCH (09:22)
[2020-04-11] MEDS: Zanaflex 4 MG PO SCH ×3 (09:22→22:01)
[2020-04-11] MEDS: Imdur 30 MG PO SCH (09:22)
[2020-04-11] MEDS: Pepcid 20 MG PO SCH ×2 (09:22→22:00)
[2020-04-11] MEDS: Seroquel 100 MG PO SCH ×2 (09:22→22:00)
[2020-04-11] MEDS: THERAGRAN MULTIVITAMIN PO SCH (09:22)
[2020-04-11] MEDS: ROCEPHIN 1 Gm-D5w 50 ml Bag** 1 G/50 ML IVPB IV SCH (09:23)
--- NOTE | 2020-04-11 13:03 | PCM.NOTE ---
Date and Time: 04/11/20 1302 Subjective Assessment: doing ok - Review of Systems Constitutional: No Fever, No Chills Eyes: No Symptoms Ears, Nose, & Throat: No Symptoms Respiratory: No Cough, No Short Of Breath Cardiac: No Chest Pain, No Edema, No Syncope Abdominal/Gastrointestinal: No Abdominal Pain, No Nausea, No Vomiting, No Diarrhea Genitourinary Symptoms: No Dysuria Musculoskeletal: No Back Pain, No Neck Pain Skin: No Rash Neurological: No Dizziness, No Focal Weakness, No Sensory Changes Psychological: No Symptoms Endocrine: No Symptoms Hematologic/Lymphatic: No Symptoms Immunological/Allergic: No Symptoms Objective Exam General Appearance: no apparent distress, alert Neurologic Exam: alert, oriented x 3, cooperative, normal mood/affect, nml cerebellar function, sensation nml, No motor deficits Skin Exam: normal color, warm, dry Eye Exam: PERRL, EOMI, eyes nml inspection Ears, Nose, Throat Exam: normal ENT inspection, pharynx normal, moist mucous membranes Neck Exam: normal inspection, non-tender, supple, full range of motion Respiratory Exam: diminished breath sounds, wheezing, No respiratory distress Cardiovascular Exam: regular rate/rhythm, normal heart sounds Gastrointestinal/Abdomen Exam: soft, No tenderness, No mass Extremity Exam: normal inspection, normal range of motion Back Exam: normal inspection, normal range of motion, No CVA tenderness, No vertebral tenderness Pelvic Exam: deferred Rectal Exam: deferred OBJECTIVE DATA Vital Signs: Vital Signs - 24 hr Temp Pulse Resp BP Pulse Ox 04/11/20 11:44 97.8 F 103 H 24 140/98 97 04/11/20 11:10 100 H 18 96 04/11/20 07:11 98.1 F 80 18 144/65 97 04/11/20 07:06 86 18 98 04/11/20 04:00 97.9 F 90 20 159/76 100 04/11/20 03:32 86 20 97 04/10/20 23:48 98.2 F 93 H 21 165/70 95 04/10/20 23:34 94 H 20 97 04/10/20 19:57 89 20 97 04/10/20 19:38 98.1 F 104 H 19 128/71 98 04/10/20 15:59 98.3 F 95 H 16 138/76 96 04/10/20 14:57 96 H 20 97 Pain Assessment - Last Documented Pain Intensity 0 Pain Scale Used 0-10 Pain Scale Intake and Output: Intake & Output 04/09/20 04/10/20 04/11/20 04/12/20 11:59 11:59 11:59 11:59 Intake Total 720 1060 1890 Output Total 900 400 950 Balance -180 660 940 Weight 80.2 kg 78.3 kg 83 kg Lab Results: Lab Results-Last 24 Hours 04/08/20 Range/Units 13:15 Smear Path Review Multi-Disciplinary Progress Notes: Multi-Disciplinary Progress Notes 04/11/20 12:38 Case Management Note by Anabela Brown PATIENT CONTINUE TO DENY ANY NEW NEEDS REGARDING DC AT THIS TIME. SHE PLANS TO RETURN HOME WITH [facility] TO CONTINUE Initialized on 04/11/20 12:38 - END OF NOTE Assessment/Plan (1) COPD exacerbation Current Visit: Yes Status: Acute Assessment & Plan: improving, Chief Complaint Diagnosis severe shortness of breath for 2 days Allergies Allergy/AdvReac Type Severity Reaction Status Date / Time morphine Allergy Severe Fainting Verified 04/08/20 13:14 oxycodone Allergy Shortness Verified 04/08/20 13:14 of Breath Penicillins Allergy Verified 04/08/20 13:14 oxymorphone AdvReac Severe Fainting Verified 04/08/20 17:48 [place]oconut AdvReac Intermediate Headache Verified 04/08/20 13:14 omeprazole AdvReac Intermediate Stomach Verified 04/08/20 13:14 Pain bupropion HCl AdvReac Mild Hives Verified 04/08/20 13:14 [From Wellbutrin] Vital Signs (Last 24 hours) Temp Pulse Resp BP Pulse Ox 04/11/20 11:44 97.8 F 103 H 24 140/98 97 04/11/20 11:10 100 H 18 96 04/11/20 07:11 98.1 F 80 18 144/65 97 04/11/20 07:06 86 18 98 04/11/20 04:00 97.9 F 90 20 159/76 100 04/11/20 03:32 86 20 97 04/10/20 23:48 98.2 F 93 H 21 165/70 95 04/10/20 23:34 94 H 20 97 04/10/20 19:57 89 20 97 04/10/20 19:38 98.1 F 104 H 19 128/71 98 04/10/20 15:59 98.3 F 95 H 16 138/76 96 04/10/20 14:57 96 H 20 97 Home Medications Medication Instructions Recorded Confirmed Last Taken Type Gabapentin 600 mg PO DAILY 04/08/20 04/08/20 04/07/20 History Gabapentin [Neurontin] 2,400 mg PO HS 04/08/20 04/08/20 Unknown History Current Medications Generic Name Dose Route Start Last Admin Trade Name Freq PRN Reason Stop Dose Admin Acetaminophen 500 mg 04/09/20 11:54 04/10/20 19:36 Tylenol Extra Strength 500 Mg PO 05/09/20 11:53 500 mg Q6H PRN PRN Administration PAIN AND/OR FEVER Albuterol/Ipratropium 3 ml 04/08/20 19:00 04/11/20 11:09 Duoneb 0.5-3 Mg/3 Ml Neb IH 05/08/20 18:59 3 ml Q4HRT VALERY Administration Clonazepam 2 mg 04/08/20 22:00 04/11/20 09:22 Klonopin PO 05/08/20 21:59 2 mg BID VALERY Administration Enoxaparin Sodium 40 mg 04/08/20 20:00 04/10/20 19:37 Enoxaparin Sodium SQ 05/08/20 19:59 40 mg Q24H VALERY Administration Famotidine 40 mg 04/09/20 10:00 04/11/20 09:22 Pepcid 20 Mg PO 05/09/20 09:59 40 mg BID VALERY Administration Gabapentin 2,400 mg 04/09/20 22:00 04/10/20 21:09 Neurontin 400 Mg PO 05/09/20 21:59 2,400 mg HS VALERY Administration Gabapentin 600 mg 04/09/20 10:00 04/11/20 09:22 Neurontin 300 Mg PO 05/09/20 09:59 600 mg DAILY VALERY Administration Ceftriaxone Sodium/Dextrose 1 g in 50 mls @ 100 mls/hr 04/09/20 10:00 04/11/20 09:23 Rocephin 1 Gm-D5w 50 Ml Bag IV 05/09/20 09:59 100 mls/hr Q24H10 VALERY Administration Azithromycin 500 mg in 250 mls @ 250 mls/hr 04/09/20 20:00 04/10/20 19:37 Zithromax 500 Mg/ 250 Ml Nacl Premix IV 05/09/20 19:59 250 mls/hr Q24H VALERY Administration Isosorbide Mononitrate 30 mg 04/09/20 10:00 04/11/20 09:22 Imdur 30 Mg PO 05/09/20 09:59 30 mg DAILY VALERY Administration Levothyroxine Sodium 25 mcg 04/09/20 10:00 04/11/20 09:22 Synthroid 25 Mcg PO 05/09/20 09:59 25 mcg DAILY VALERY Administration Methylprednisolone Sodium Succinate 80 mg 04/08/20 18:00 04/11/20 12:47 Solu-Medrol 125 Mg IV 05/08/20 17:59 80 mg Q6HT VALERY Administration Multivitamins Therapeutic 1 tab 04/09/20 10:00 04/11/20 09:22 Theragran Multivitamin PO 05/09/20 09:59 1 tab DAILY VALERY Administration Nitroglycerin 0.4 mg 04/08/20 20:51 Nitrostat 0.4 Mg Tablet SL 05/08/20 20:50 Q5MIN PRN MR X 3 PRN CHEST PAIN Quetiapine Fumarate 300 mg 04/08/20 22:00 04/10/20 21:08 Seroquel 100 Mg PO 05/08/20 21:59 300 mg HS VALERY Administration Quetiapine Fumarate 200 mg 04/09/20 10:00 04/11/20 09:22 Seroquel 100 Mg PO 05/09/20 09:59 200 mg QAM VALERY Administration Fluticasone/Salmeterol 2 puff 04/08/20 19:00 04/11/20 07:04 Advair Hfa 115/21 Common Canister* IH 05/08/20 18:59 2 puff BIDRT VALERY Administration Sertraline HCl 200 mg 04/09/20 10:00 04/11/20 09:21 Zoloft 50 Mg Tablet PO 05/09/20 09:59 200 mg DAILY VALERY Administration Tizanidine HCl 4 mg 04/08/20 22:00 04/11/20 09:22 Zanaflex 4 Mg PO 05/08/20 21:59 4 mg TID VALERY Administration Discontinued Medications Generic Name Dose Route Start Last Admin Trade Name Yordan PRN Reason Stop Dose Admin Albuterol Sulfate Confirm 04/08/20 13:12 Proventil Solution 2.5 Mg/0.5 Ml Administered 04/08/20 13:13 Dose 10 mg IH .STK-MED ONE Albuterol Sulfate 10 mg 04/08/20 13:17 04/08/20 13:36 Ventolin 20 Ml Bottle IH 04/08/20 13:18 10 mg STAT ONE Administration Albuterol/Ipratropium 3 ml 04/08/20 13:37 04/08/20 13:38 Duoneb 0.5-3 Mg/3 Ml Neb IH 04/08/20 13:38 3 ml STAT ONE Administration Albuterol/Ipratropium Confirm 04/08/20 13:04 Duoneb 0.5-3 Mg/3 Ml Neb Administered 04/08/20 13:05 Dose 3 ml IH .STK-MED ONE Aspirin 324 mg 04/08/20 16:31 04/08/20 16:34 Baby Aspirin 81 Mg Chew PO 04/08/20 16:32 324 mg STAT ONE Administration Clonazepam 2 mg 04/08/20 22:00 Klonopin 0.5 Mg PO 05/08/20 21:59 BID VALERY Clonazepam Confirm 04/08/20 21:00 Klonopin Administered 04/08/20 21:01 Dose 2 mg .ROUTE .STK-MED ONE Enoxaparin Sodium 40 mg 04/09/20 10:00 Enoxaparin Sodium SQ 05/09/20 09:59 DAILY VALERY Famotidine 20 mg 04/08/20 22:00 04/08/20 21:17 Pepcid 20 Mg PO 05/08/20 21:59 20 mg Q12HT VALERY Administration Gabapentin 800 mg 04/08/20 22:00 Neurontin 300 Mg PO 05/08/20 21:59 HS VALERY Gabapentin Confirm 04/08/20 21:00 Neurontin 400 Mg Administered 04/08/20 21:01 Dose 800 mg .ROUTE .STK-MED ONE Gabapentin 400 mg 04/08/20 22:00 Neurontin 400 Mg PO 05/08/20 21:59 HS VALERY Gabapentin 800 mg 04/08/20 22:00 04/08/20 21:15 Neurontin 400 Mg PO 05/08/20 21:59 800 mg HS VALERY Administration Gabapentin 1,600 mg 04/08/20 21:30 04/08/20 21:28 Neurontin 400 Mg PO 04/08/20 21:31 1,600 mg TID ONE Administration Azithromycin 500 mg/ Sodium 250 mls @ 125 mls/hr 04/08/20 13:14 04/08/20 20:18 Chloride IV 04/08/20 15:13 Not Given STAT ONE Ceftriaxone Sodium/Dextrose 1 g in 50 mls @ 100 mls/hr 04/08/20 13:14 04/08/20 14:22 Rocephin 1 Gm-D5w 50 Ml Bag IV 04/08/20 13:43 Infused STAT STA Infusion Ceftriaxone Sodium/Dextrose Confirm 04/08/20 13:26 Rocephin 1 Gm-D5w 50 Ml Bag Administered 04/08/20 13:27 Dose 1 g in 50 mls @ ud IV .STK-MED ONE Lactated Ringer's 1,000 mls @ 999 mls/hr 04/08/20 14:50 04/08/20 20:18 Lactated Ringers IV 04/08/20 15:50 Not Given .Q1H1M ONE Lactated Ringer's 1,000 mls @ 999 mls/hr 04/08/20 14:51 04/08/20 20:18 Lactated Ringers IV 04/08/20 15:51 Not Given .Q1H1M ONE Sodium Chloride Confirm 04/08/20 18:13 Sodium Chloride 0.9% 500 Ml Administered 04/08/20 18:14 Dose 500 mls @ ud IV .STK-MED ONE Sodium Chloride 500 mls @ 50 mls/hr 04/08/20 19:00 04/11/20 08:12 Sodium Chloride 0.9% 500 Ml IV 05/08/20 18:59 Not Given .Q10H VALERY Prednisone 20 mg 04/08/20 22:00 Deltasone 20 Mg PO 05/08/20 21:59 BID VALERY Sodium Chloride Confirm 04/08/20 13:13 Sodium Chloride 3 Ml Ud Nebules Administered 04/08/20 13:14 Dose 6 ml IH .STK-MED ONE Intake & Output (Last 24 hours) 04/09/20 04/10/20 04/11/20 04/12/20 11:59 11:59 11:59 11:59 Intake Total 720 1060 1890 Output Total 900 400 950 Balance -180 660 940 Weight 80.2 kg 78.3 kg 83 kg Microbiology Results (Last 24 hours) 04/08/20 04:00 Sputum - Expectorant Gram Stain - Final 04/08/20 04:00 Sputum - Expectorant Sputum Culture - Final Escherichia Coli 04/08/20 18:30 Catherized Urine Culture - Final <10K NORMAL SKIN ADRIAN PROBABLE SKIN CONTAMINANT Laboratory Results (Last 24 hours) 04/08/20 13:15 Smear Path Review Orders (Last 24 hours) Category Date Time Status CBC W DIFF Routine Lab 04/11/20 12:18 Ordered CBC W DIFF Routine Lab 04/12/20 05:00 Ordered CMP Routine Lab 04/11/20 12:19 Ordered CMP Routine Lab 04/12/20 05:00 Ordered Patient Care Notes (Last 24 hours) 04/11/20 12:38 Case Management Note by Anabela Brown PATIENT CONTINUE TO DENY ANY NEW NEEDS REGARDING DC AT THIS TIME. SHE PLANS TO RETURN HOME WITH [facility] TO CONTINUE Initialized on 04/11/20 12:38 - END OF NOTE 04/11/20 03:38 Nursing Note by Lorelei Hull pt requested and provided with information on COPD, causes of exacerbation, diet and exercise, etc. Initialized on 04/11/20 03:38 - END OF NOTE Code(s): J44.1 - CHRONIC OBSTRUCTIVE PULMONARY DISEASE W (ACUTE) EXACERBATION (2) Acute respiratory failure Current Visit: Yes Status: Acute Qualifiers: Respiratory failure complication: hypoxia and hypercapnia Qualified Code(s): J96.01 - Acute respiratory failure with hypoxia; J96.02 - Acute respiratory failure with hypercapnia Code(s): J96.00 - ACUTE RESPIRATORY FAILURE, UNSP W HYPOXIA OR HYPERCAPNIA
[2020-04-11 13:15] LABS: Hematocrit 30.2 % (35-47); Hemoglobin 8.7 gm/dl (12.0-16.0); Mean Cell Volume 88.3 fl (78-100); Mean Corpuscular Hemoglobin 25.4 pg (26-32); Mean Corpuscular Hgb Concent. 28.8 g/dl (32-36); Mean Platelet Volume 8.9 fl (7.5-11.0); Platelet Count 486 K/mm3 (150-450); Red Blood Count 3.42 M/mm3 (4.1-5.4); Red Cell Distribution Width 17.8 % (11.5-14.0); White Blood Count 20.3 K/mm3 (4.0-10.5)
[2020-04-11 13:30] LABS: ALBUMIN 3.1 g/dL (3.5-5.0); ALKALINE PHOSPHATASE 68 U/L (38-126); ANION GAP 6.2 MEQ/L (5-15); BLOOD UREA NITROGEN 21 mg/dL (7-17); CHLORIDE 100 mmol/L (98-107); Calcium 9.1 mg/dL (8.4-10.2); Carbon Dioxide 34 mmol/L (22-30); Creatinine 1 0.77 mg/dL (0.52-1.04); EST GLOMERULAR FILTRATION RATE > 60.0 ML/MIN; Glucose 105 mg/dL (74-106); Potassium 4.7 mmol/L (3.5-5.1); SGOT/AST 23 U/L (14-36); SGPT/ALT 42 U/L (0-35); SODIUM 136 mmol/L (137-145)
[2020-04-11 14:12] LABS: BAND 3 % (0.0-2.0); Lymphocytes 5 % (24-44); Monocyte 2 % (0.0-12.0); Neutrophils 90 % (36.0-66.0); Total Cells Counted 100
[2020-04-11 14:16] LABS: ANISOCYTOSIS 2+; Hypochromia 2+; Platelet Estimate INCREASED (NORMAL); Poikilocytosis 1+; Polychromasia 1+
[2020-04-11 14:17] LABS: Basophilic Stippling 1+; Microcytosis 1+
[2020-04-11] MEDS: TYLENOL EXTRA STRENGTH 500 MG PO PRN ×2 (15:29→22:01)
[2020-04-11] MEDS: MELOXICAM PO SCH ×2 (15:29→22:01)
[2020-04-11] MEDS: ENOXAPARIN SODIUM SQ SCH (20:00)
[2020-04-11] MEDS: Zithromax 500 MG/ 250 ML NaCl Premix 500 MG/250 ML IVPB IV SCH (20:00)
[2020-04-11] MEDS: Neurontin 400 MG PO SCH (22:00)
[2020-04-12] MEDS: DUONEB 0.5-3 MG/3 ml Neb IH SCH ×2 (03:34→06:39)
[2020-04-12] MEDS: TYLENOL EXTRA STRENGTH 500 MG PO PRN (03:59)
[2020-04-12 04:44] LABS: Hematocrit 31.2 % (35-47); Hemoglobin 8.8 gm/dl (12.0-16.0); Mean Cell Volume 89.7 fl (78-100); Mean Corpuscular Hemoglobin 25.3 pg (26-32); Mean Corpuscular Hgb Concent. 28.2 g/dl (32-36); Mean Platelet Volume 8.8 fl (7.5-11.0); Platelet Count 463 K/mm3 (150-450); Red Blood Count 3.48 M/mm3 (4.1-5.4); Red Cell Distribution Width 17.9 % (11.5-14.0); White Blood Count 16.4 K/mm3 (4.0-10.5)
[2020-04-12 05:05] LABS: ALBUMIN 3.4 g/dL (3.5-5.0); ALKALINE PHOSPHATASE 67 U/L (38-126); ANION GAP 10.2 MEQ/L (5-15); BLOOD UREA NITROGEN 28 mg/dL (7-17); CHLORIDE 97 mmol/L (98-107); Calcium 9.2 mg/dL (8.4-10.2); Carbon Dioxide 32 mmol/L (22-30); Creatinine 1 0.77 mg/dL (0.52-1.04); EST GLOMERULAR FILTRATION RATE > 60.0 ML/MIN; Glucose 199 mg/dL (74-106); Potassium 4.4 mmol/L (3.5-5.1); SGOT/AST 20 U/L (14-36); SGPT/ALT 41 U/L (0-35); SODIUM 135 mmol/L (137-145); Total Protein 6.3 g/dL (6.3-8.2)
[2020-04-12] MEDS: solu-MEDROL 125 MG IV SCH ×2 (05:47→13:03)
[2020-04-12] MEDS: Advair Hfa 115/21 Common canister IH SCH (06:38)
[2020-04-12 07:38] LABS: BAND 8 % (0.0-2.0); Lymphocytes 3 % (24-44); Monocyte 3 % (0.0-12.0); Neutrophils 86 % (36.0-66.0); Total Cells Counted 100
[2020-04-12 07:39] LABS: ANISOCYTOSIS 2+; Hypochromia 1+; Platelet Estimate INCREASED (NORMAL)
[2020-04-12 07:40] LABS: Ovalocytes 1+; Poikilocytosis 2+
[2020-04-12 07:41] LABS: Absolute Neutrophil Ct (ANC) 15.46 (1.4-6.9)
--- NOTE | 2020-04-12 09:47 | PCM.NOTE ---
Date and Time: 04/12/2046 Subjective Assessment: doing better - Review of Systems Constitutional: No Fever, No Chills Eyes: No Symptoms Ears, Nose, & Throat: No Symptoms Respiratory: No Cough, No Short Of Breath Cardiac: No Chest Pain, No Edema, No Syncope Abdominal/Gastrointestinal: No Abdominal Pain, No Nausea, No Vomiting, No Diarrhea Genitourinary Symptoms: No Dysuria Musculoskeletal: No Back Pain, No Neck Pain Skin: No Rash Neurological: No Dizziness, No Focal Weakness, No Sensory Changes Psychological: No Symptoms Endocrine: No Symptoms Hematologic/Lymphatic: No Symptoms Immunological/Allergic: No Symptoms Objective Exam General Appearance: no apparent distress, alert Neurologic Exam: alert, oriented x 3, cooperative, normal mood/affect, nml cerebellar function, sensation nml, No motor deficits Skin Exam: normal color, warm, dry Eye Exam: PERRL, EOMI, eyes nml inspection Ears, Nose, Throat Exam: normal ENT inspection, pharynx normal, moist mucous membranes Neck Exam: normal inspection, non-tender, supple, full range of motion Respiratory Exam: normal breath sounds, lungs clear, No respiratory distress Cardiovascular Exam: regular rate/rhythm, normal heart sounds Gastrointestinal/Abdomen Exam: soft, No tenderness, No mass Extremity Exam: normal inspection, normal range of motion Back Exam: normal inspection, normal range of motion, No CVA tenderness, No vertebral tenderness Pelvic Exam: deferred Rectal Exam: deferred OBJECTIVE DATA Vital Signs: Vital Signs - 24 hr Temp Pulse Resp BP Pulse Ox 04/12/20 07:06 98.2 F 92 H 16 164/79 97 04/12/20 06:39 83 18 97 04/12/20 04:00 98.4 F 83 16 157/75 97 04/12/20 03:35 83 20 97 04/11/20 23:48 18 F 90 21 139/76 98 04/11/20 23:24 90 21 98 04/11/20 20:00 98.6 F 99 H 21 178/78 97 04/11/20 19:46 92 H 20 97 04/11/20 16:00 98.6 F 98 H 20 141/74 96 04/11/20 14:58 97 H 18 97 04/11/20 11:44 97.8 F 103 H 24 140/98 97 04/11/20 11:10 100 H 18 96 Oxygen-Last 24 hours Oxygen Flowrate (L/min)-RT 3 Pain Assessment - Last Documented Pain Intensity 7 Pain Scale Used [facility] Intake and Output: Intake & Output 04/09/20 04/10/20 04/11/20 04/12/20 11:59 11:59 11:59 11:59 Intake Total 720 1060 1890 1886 Output Total 900 400 950 550 Balance -180 724 854 4102 Weight 80.2 kg 78.3 kg 83 kg 81.7 kg Lab Results: Lab Results-Last 24 Hours 04/11/20 04/11/20 04/12/20 Range/Units 12:19 13:00 04:37 WBC 20.3 H 16.4 H (4.0-10.5) K/mm3 RBC 3.42 L 3.48 L (4.1-5.4) M/mm3 Hgb 8.7 L 8.8 L (12.0-16.0) gm/dl Hct 30.2 L 31.2 L (35-47) % MCV 88.3 89.7 (78-100) fl MCH 25.4 L 25.3 L (26-32) pg MCHC 28.8 L 28.2 L (32-36) g/dl RDW 17.8 H 17.9 H (11.5-14.0) % Plt Count 486 H 463 H (150-450) K/mm3 MPV 8.9 8.8 (7.5-11.0) fl Absolute Granulocytes 18.90 H 15.46 H (1.4-6.9) Segmented Neutrophils 90 H 86 H (36.0-66.0) % Band Neutrophils 3 H 8 H (0.0-2.0) % Lymphocytes (Manual) 5 L 3 L (24-44) % Monocytes (Manual) 2 3 (0.0-12.0) % Hypochromia 2+ 1+ Platelet Estimate INCREASED INCREASED (NORMAL) RBC Morphology ABNORMAL ABNORMAL Polychromasia 1+ Poikilocytosis 1+ 2+ Basophilic Stippling 1+ Anisocytosis 2+ 2+ Microcytosis 1+ Ovalocytes 1+ Sodium 136 L (137-145) mmol/L Potassium 4.7 (3.5-5.1) mmol/L Chloride 100 (98-107) mmol/L Carbon Dioxide 34 H (22-30) mmol/L Anion Gap 6.2 (5-15) MEQ/L BUN 21 H (7-17) mg/dL Creatinine 0.77 (0.52-1.04) mg/dL Estimated GFR > 60.0 ML/MIN Glucose 105 (74-106) mg/dL Calcium 9.1 (8.4-10.2) mg/dL Total Bilirubin 0.10 L (0.2-1.3) mg/dL AST 23 (14-36) U/L ALT 42 H (0-35) U/L Alkaline Phosphatase 68 (38-126) U/L Serum Total Protein 6.0 L (6.3-8.2) g/dL Albumin 3.1 L (3.5-5.0) g/dL 04/12/20 Range/Units 04:37 WBC (4.0-10.5) K/mm3 RBC (4.1-5.4) M/mm3 Hgb (12.0-16.0) gm/dl Hct (35-47) % MCV (78-100) fl MCH (26-32) pg MCHC (32-36) g/dl RDW (11.5-14.0) % Plt Count (150-450) K/mm3 MPV (7.5-11.0) fl Absolute Granulocytes (1.4-6.9) Segmented Neutrophils (36.0-66.0) % Band Neutrophils (0.0-2.0) % Lymphocytes (Manual) (24-44) % Monocytes (Manual) (0.0-12.0) % Hypochromia Platelet Estimate (NORMAL) RBC Morphology Polychromasia Poikilocytosis Basophilic Stippling Anisocytosis Microcytosis Ovalocytes Sodium 135 L (137-145) mmol/L Potassium 4.4 (3.5-5.1) mmol/L Chloride 97 L (98-107) mmol/L Carbon Dioxide 32 H (22-30) mmol/L Anion Gap 10.2 (5-15) MEQ/L BUN 28 H (7-17) mg/dL Creatinine 0.77 (0.52-1.04) mg/dL Estimated GFR > 60.0 ML/MIN Glucose 199 H (74-106) mg/dL Calcium 9.2 (8.4-10.2) mg/dL Total Bilirubin 0.10 L (0.2-1.3) mg/dL AST 20 (14-36) U/L ALT 41 H (0-35) U/L Alkaline Phosphatase 67 (38-126) U/L Serum Total Protein 6.3 (6.3-8.2) g/dL Albumin 3.4 L (3.5-5.0) g/dL Multi-Disciplinary Progress Notes: Multi-Disciplinary Progress Notes 04/11/20 12:38 Case Management Note by Anabela Brown PATIENT CONTINUE TO DENY ANY NEW NEEDS REGARDING DC AT THIS TIME. SHE PLANS TO RETURN HOME WITH [facility] TO CONTINUE Initialized on 04/11/20 12:38 - END OF NOTE Assessment/Plan (1) COPD exacerbation Current Visit: Yes Status: Resolved Assessment & Plan: Last Vital Signs Temp 98.2 F 04/12/20 07:06 Pulse 92 H 04/12/20 07:06 Resp 16 04/12/20 07:06 BP 164/79 04/12/20 07:06 Pulse Ox 97 04/12/20 07:06 Allergies morphine Allergy (Severe, Verified 04/08/20 13:14) Fainting oxycodone Allergy (Verified 04/08/20 13:14) Shortness of Breath Penicillins Allergy (Verified 04/08/20 13:14) oxymorphone Adverse Reaction (Severe, Verified 04/08/20 17:48) Fainting [place]ut Adverse Reaction (Intermediate, Verified 04/08/20 13:14) Headache omeprazole Adverse Reaction (Intermediate, Verified 04/08/20 13:14) Stomach Pain bupropion HCl [From Wellbutrin] Adverse Reaction (Mild, Verified 04/08/20 13:14) Hives Active Medications Acetaminophen (Tylenol Extra Strength 500 Mg) 500 mg PO Q6H PRN PRN PRN Reason: PAIN AND/OR FEVER Stop: 05/09/20 11:53 Last Admin: 04/12/20 03:59 Dose: 500 mg Documented by: Albuterol/Ipratropium (Duoneb 0.5-3 Mg/3 Ml Neb) 3 ml IH Q4HRT VALERY Stop: 05/08/20 18:59 Last Admin: 04/12/20 06:39 Dose: 3 ml Documented by: Clonazepam (Klonopin) 2 mg PO BID VALERY Stop: 05/08/20 21:59 Last Admin: 04/11/20 22:00 Dose: 2 mg Documented by: Enoxaparin Sodium (Enoxaparin Sodium) 40 mg SQ Q24H VALERY Stop: 05/08/20 19:59 Last Admin: 04/11/20 20:00 Dose: 40 mg Documented by: Famotidine (Pepcid 20 Mg) 40 mg PO BID VALERY Stop: 05/09/20 09:59 Last Admin: 04/11/20 22:00 Dose: 40 mg Documented by: Gabapentin (Neurontin 400 Mg) 2,400 mg PO HS VALERY Stop: 05/09/20 21:59 Last Admin: 04/11/20 22:00 Dose: 2,400 mg Documented by: Gabapentin (Neurontin 300 Mg) 600 mg PO DAILY VALERY Stop: 05/09/20 09:59 Last Admin: 04/11/20 09:22 Dose: 600 mg Documented by: Ceftriaxone Sodium/Dextrose (Rocephin 1 Gm-D5w 50 Ml Bag) 1 g in 50 mls @ 100 mls/hr IV Q24H10 VALERY Stop: 05/09/20 09:59 Last Admin: 04/11/20 09:23 Dose: 100 mls/hr Documented by: Azithromycin (Zithromax 500 Mg/ 250 Ml Nacl Premix) 500 mg in 250 mls @ 250 mls/hr IV Q24H VALERY Stop: 05/09/20 19:59 Last Admin: 04/11/20 20:00 Dose: 250 mls/hr Documented by: Isosorbide Mononitrate (Imdur 30 Mg) 30 mg PO DAILY VALERY Stop: 05/09/20 09:59 Last Admin: 04/11/20 09:22 Dose: 30 mg Documented by: Levothyroxine Sodium (Synthroid 25 Mcg) 25 mcg PO DAILY [facility] Stop: 05/09/20 09:59 Last Admin: 04/11/20 09:22 Dose: 25 mcg Documented by: Meloxicam (Meloxicam) 7.5 mg PO BID [facility] Stop: 05/11/20 15:29 Last Admin: 04/11/20 22:01 Dose: 7.5 mg Documented by: Methylprednisolone Sodium Succinate (Solu-Medrol 125 Mg) 80 mg IV Q6HT [facility] Stop: 05/08/20 17:59 Last Admin: 04/12/20 05:47 Dose: 80 mg Documented by: Multivitamins Therapeutic (Theragran Multivitamin) 1 tab PO DAILY [facility] Stop: 05/09/20 09:59 Last Admin: 04/11/20 09:22 Dose: 1 tab Documented by: Nitroglycerin (Nitrostat 0.4 Mg Tablet) 0.4 mg SL Q5MIN PRN MR X 3 PRN PRN Reason: CHEST PAIN Stop: 05/08/20 20:50 Quetiapine Fumarate (Seroquel 100 Mg) 300 mg PO HS [facility] Stop: 05/08/20 21:59 Last Admin: 04/11/20 22:00 Dose: 300 mg Documented by: Quetiapine Fumarate (Seroquel 100 Mg) 200 mg PO QAM [facility] Stop: 05/09/20 09:59 Last Admin: 04/11/20 09:22 Dose: 200 mg Documented by: Fluticasone/Salmeterol (Advair Hfa 115 Common Canister*) 2 puff IH BIDRT [facility] Stop: 05/08/20 18:59 Last Admin: 04/12/20 06:38 Dose: 2 puff Documented by: Sertraline HCl (Zoloft 50 Mg Tablet) 200 mg PO DAILY [facility] Stop: 05/09/20 09:59 Last Admin: 04/11/20 09:21 Dose: 200 mg Documented by: Tizanidine HCl (Zanaflex 4 Mg) 4 mg PO TID [facility] Stop: 05/08/20 21:59 Last Admin: 04/11/20 22:01 Dose: 4 mg Documented by: Intake & Output 04/11/20 04/12/20 11:59 11:59 Intake Total 1890 1886 Output Total 950 550 Balance 940 1336 Weight 83 kg 81.7 kg Orders 04/11/20 15:30 Meloxicam 7.5 mg PO BID Lab Tests 04/11/20 04/11/20 04/12/20 12:19 13:00 04:37 WBC 20.3 H 16.4 H RBC 3.42 L 3.48 L Hgb 8.7 L 8.8 L Hct 30.2 L 31.2 L MCV 88.3 89.7 MCH 25.4 L 25.3 L MCHC 28.8 L 28.2 L RDW 17.8 H 17.9 H Plt Count 486 H 463 H MPV 8.9 8.8 Absolute Granulocytes 18.90 H 15.46 H Segmented Neutrophils 90 H 86 H Band Neutrophils 3 H 8 H Lymphocytes (Manual) 5 L 3 L Monocytes (Manual) 2 3 Hypochromia 2+ 1+ Platelet Estimate INCREASED INCREASED RBC Morphology ABNORMAL ABNORMAL Polychromasia 1+ Poikilocytosis 1+ 2+ Basophilic Stippling 1+ Anisocytosis 2+ 2+ Microcytosis 1+ Ovalocytes 1+ Sodium 136 L Potassium 4.7 Chloride 100 Carbon Dioxide 34 H Anion Gap 6.2 BUN 21 H Creatinine 0.77 Estimated GFR > 60.0 Glucose 105 Calcium 9.1 Total Bilirubin 0.10 L AST 23 ALT 42 H Alkaline Phosphatase 68 Serum Total Protein 6.0 L Albumin 3.1 L 04/12/20 04:37 WBC RBC Hgb Hct MCV MCH MCHC RDW Plt Count MPV Absolute Granulocytes Segmented Neutrophils Band Neutrophils Lymphocytes (Manual) Monocytes (Manual) Hypochromia Platelet Estimate RBC Morphology Polychromasia Poikilocytosis Basophilic Stippling Anisocytosis Microcytosis Ovalocytes Sodium 135 L Potassium 4.4 Chloride 97 L Carbon Dioxide 32 H Anion Gap 10.2 BUN 28 H Creatinine 0.77 Estimated GFR > 60.0 Glucose 199 H Calcium 9.2 Total Bilirubin 0.10 L AST 20 ALT 41 H Alkaline Phosphatase 67 Serum Total Protein 6.3 Albumin 3.4 L Microbiology 04/08/20 04:00 Sputum - Expectorant Gram Stain - Final 04/08/20 04:00 Sputum - Expectorant Sputum Culture - Final Escherichia Coli Code(s): J44.1 - CHRONIC OBSTRUCTIVE PULMONARY DISEASE W (ACUTE) EXACERBATION (2) Acute respiratory failure Current Visit: Yes Status: Acute Qualifiers: Respiratory failure complication: hypoxia and hypercapnia Qualified Code(s): J96.01 - Acute respiratory failure with hypoxia; J96.02 - Acute respiratory failure with hypercapnia Code(s): J96.00 - ACUTE RESPIRATORY FAILURE, UNSP W HYPOXIA OR HYPERCAPNIA
[2020-04-12] MEDS: KLONOPIN PO SCH (10:57)
[2020-04-12] MEDS: Zanaflex 4 MG PO SCH (10:57)
[2020-04-12] MEDS: Imdur 30 MG PO SCH (10:57)
[2020-04-12] MEDS: NEURONTIN 300 MG PO SCH (10:57)
[2020-04-12] MEDS: ZOLOFT 50 MG TABLET PO SCH (10:58)
[2020-04-12] MEDS: Pepcid 20 MG PO SCH (10:58)
[2020-04-12] MEDS: THERAGRAN MULTIVITAMIN PO SCH (10:58)
[2020-04-12] MEDS: Seroquel 100 MG PO SCH (10:59)
[2020-04-12] MEDS: MELOXICAM PO SCH (10:59)
[2020-04-12] MEDS: ROCEPHIN 1 Gm-D5w 50 ml Bag** 1 G/50 ML IVPB IV SCH (10:59)
[2020-04-12] MEDS: SYNTHROID 25 MCG PO SCH (10:59)
[2020-04-12 12:10] VITALS: BP 161/70; PULSE 98; O2SAT 95
== END 2020-04-12 13:25 | disposition home or self-care (01) | DRG 189 ==
LOC: ED 13:00 → MED SURG 17:30
PROVIDERS: ADMIT General Practice; ATTEND General Practice
DX: J96.02 Acute respiratory failure with hypercapnia (principal); J44.1 Chronic obstructive pulmonary disease with (acute) exacerbation; J96.01 Acute respiratory failure with hypoxia; I25.10 Atherosclerotic heart disease of native coronary artery without angina pectoris; E03.9 Hypothyroidism, unspecified; Z79.899 Other long term (current) drug therapy; E78.00 Pure hypercholesterolemia, unspecified; D64.9 Anemia, unspecified
CPT/HCPCS: 36000; 36415; 36430; 71045; 71046; 71260; 80048; 80053; 81001; 82805; 83605; 83880; 84484; 85014; 85018; 85025; 85027; 85379; 86850; 86900; 86901; 86922; 87040; 87070; 87077; 87086; 87186; 93005; 93041; 94002; 94640; 94760; 96365; 99285; 99291; P9016; U0003; J0456; J0696; J1650; J2930; A9270-GY

== ENCOUNTER 2020-07-20 12:10 | Observation (INO) | payer MEDICARE ==
[2020-07-20 13:40] LABS: Absolute Neutrophil Ct (ANC) 9.37 (1.4-6.9); BASOPHIL % 0.5 % (0.0-0.4); Basophil (Absolute #) 0.05 (0-0.4); Eosinophil % 1.2 % (0.00-5.0); Eosinophil (Absolute #) 0.13 (0-0.5); Hematocrit 23.4 % (35-47); Lymphocyte (Absolute #) 0.63 (1.0-4.6); Lymphocytes % 5.9 % (24.0-44.0); Mean Cell Volume 76.5 fl (78-100); Mean Corpuscular Hemoglobin 18.6 pg (26-32); Mean Corpuscular Hgb Concent. 24.4 g/dl (32-36); Mean Platelet Volume 9.7 fl (7.5-11.0); Monocyte (Absolute #) 0.55 (0.0-1.3); Monocytes % 5.1 % (0.0-12.0); Neutrophil % 87.3 % (36.0-66.0); Platelet Count 548 K/mm3 (150-450); Red Blood Count 3.06 M/mm3 (4.1-5.4); White Blood Count 10.7 K/mm3 (4.0-10.5)
[2020-07-20 14:20] LABS: Hemoglobin 5.7 gm/dl (12.0-16.0)
[2020-07-20] MEDS ORDERED: Sodium Chloride 0.9% 500 ML 500 ML IV SCH (14:30)
[2020-07-20 15:11] LABS: ABO TYPING A; Antibody Screen NEGATIVE (NEGATIVE); RH TYPING POSITIVE
[2020-07-20 15:12] LABS: CROSS MATCH (PRBC) COMPATIBLE (COMPATIBLE)
[2020-07-20 16:38] VITALS: PULSE 96
[2020-07-20 18:51] LABS: Slide Review 1 YES
--- NOTE | 2020-07-20 20:19 | PCM.SSS ---
History of Present Illness - Chief Complaint Chief Complaint: came for blood transfusion Hgb 5.8 History of Present Illness: is a 64 year old femaleHx of chronic Anemia Hgb 5.8 came for blood transfusion - Review of Systems Constitutional: Fatigue, Lethargy, Weakness, No Fever, No Chills Eyes: No Symptoms Ears, Nose, & Throat: No Symptoms Respiratory: No Cough, No Short Of Breath Cardiac: No Chest Pain, No Edema, No Syncope Abdominal/Gastrointestinal: No Abdominal Pain, No Nausea, No Vomiting, No Diarrhea Genitourinary Symptoms: No Dysuria Musculoskeletal: No Back Pain, No Neck Pain Skin: No Rash Neurological: No Dizziness, No Focal Weakness, No Sensory Changes Psychological: No Symptoms Endocrine: No Symptoms Hematologic/Lymphatic: No Symptoms Immunological/Allergic: No Symptoms Medications & Allergies Home Medications: Home Medication List Albuterol/Ipratropium Mdi [Combivent Inhaler] 1 puff IH Q6H 12/29/12 [History Confirmed 06/05/20] Clonazepam 0.5 mg [Klonopin 0.5 MG] 2 mg PO BID 12/29/12 [History Confirmed 06/05/20] Famotidine 20 mg [Pepcid 20 MG] 40 mg PO BID 12/29/12 [History Confirmed 06/05/20] Fluticasone/Salmeterol Disc [Advair 250-50 Diskus 14 Dose] 1 puff IH BID 12/29/12 [History Confirmed 06/05/20] Sertraline HCl 100 mg [Zoloft 100 MG] 200 mg PO DAILY 12/17/13 [History Confirmed 06/05/20] Isosorbide Mononitrate 30 mg [Imdur 30 MG] 30 mg PO DAILY 11/05/14 [History Confirmed 06/05/20] Tizanidine HCl 4 mg [Zanaflex 4 MG] 4 mg PO TID 01/16/15 [History Confirmed 06/05/20] Levothyroxine Sodium 25 Mcg [Synthroid 25 Mcg] 25 mcg PO DAILY 10/17/15 [History Confirmed 06/05/20] Quetiapine Fumarate [Seroquel] 200 mg PO QAM 10/17/15 [History Confirmed 06/05/20] Vits W-Ca,Fe,FA(<1Mg) [] 1 each PO DAILY 10/18/15 [History Confirmed 06/05/20] Nitroglycerin 0.4 mg Tablet [Nitrostat 0.4 MG Tablet] 0.4 mg SL UD PRN 11/15/15 [History Confirmed 06/05/20] Albuterol Common Canister [Ventolin Common Canister] 2 puff IH Q4-6HPRN PRN 07/08/19 [History Confirmed 06/05/20] Quetiapine Fumarate 300 mg PO QHS 07/08/19 [History Confirmed 06/05/20] Prednisone 20 mg [Deltasone 20 mg] 20 mg PO BID 03/22/20 [History Confirmed 06/05/20] Gabapentin 600 mg PO DAILY 04/08/20 [History Confirmed 06/05/20] Gabapentin [Neurontin] 2,400 mg PO HS 04/08/20 [History Confirmed 06/05/20] Allergies/Adverse Reactions: Allergies Allergy/AdvReac Type Severity Reaction Status Date / Time morphine Allergy Severe Fainting Verified 06/05/20 08:53 oxycodone Allergy Shortness Verified 06/05/20 08:53 of Breath Penicillins Allergy Verified 06/05/20 08:53 oxymorphone AdvReac Severe Fainting Verified 06/05/20 08:53 [place]ut AdvReac Intermediate Headache Verified 06/05/20 08:53 omeprazole AdvReac Intermediate Stomach Verified 06/05/20 08:53 Pain bupropion HCl AdvReac Mild Hives Verified 06/05/20 08:53 [From Wellbutrin] - Past Medical History Past Medical History: Yes Neurological History: Migraines ENT History: No Pertinent History Cardiac History: Congestive Heart Failure, Coronary Artery Disease, High Cholesterol Respiratory History: Asthma, Bronchitis, COPD, Pneumonia Endocrine Medical History: Hypothyroidism Musculoskelatal History: Arthritis GI Medical History: GERD, Hernia, Polyps History: No Pertinent History Pyscho-Social History: Anxiety, Bipolar, Depression Reproductive Disorders: Fibroids Comment: 2 LEAKY VALVES. BORDERLINE PERSONALITY DISORDER, PTSD, manic depressive. bone deficiency - Female History Are you now?: No - Past Surgical History Past Surgical History: Yes Neuro Surgical History: No Pertinent History Cardiac History: Cardiac Catheterization Respiratory Surgery: No Pertinent History GI Surgical History: Other Genitourinary Surgical Hx: No Pertinent History Musculskeletal Surgical Hx: Other Female Surgical History: Section Other Surgical History: ARM SURGERY-- left wrist laceration from a glass door,, 2 c-sections, EGD with dilitation, Colonoscopy, heart cathx2 - Social History Smoking Status: Current every day smoker How long have you smoked: 40 yrs Exposure to second hand smoke: Yes Alcohol: None Drug Use: none Significant Family History: no pertinent family hx - Physical Exam Vital Signs: Vital Signs - 24 hr Temp Pulse Resp BP Pulse Ox 07/20/20 16:00 98.4 F 96 H 24 106/55 95 07/20/20 13:24 135/67 General Appearance: no apparent distress, alert Neurologic Exam: alert, oriented x 3, cooperative, normal mood/affect, nml cerebellar function, nml station & gait, sensation nml, No motor deficits Eye Exam: PERRL/EOMI, eyes nml inspection Ears, Nose, Throat Exam: normal ENT inspection, TMs normal, pharynx normal, moist mucous membranes Neck Exam: normal inspection, non-tender, supple, full range of motion Respiratory Exam: normal breath sounds, lungs clear, No respiratory distress Cardiovascular Exam: regular rate/rhythm, normal heart sounds, normal peripheral pulses Gastrointestinal/Abdomen Exam: soft, normal bowel sounds, No tenderness, No mass Back Exam: normal inspection, normal range of motion, No CVA tenderness, No vertebral tenderness Extremity Exam: normal inspection, normal range of motion, pelvis stable Skin Exam: normal color, warm, dry, No rash Lymphatic Exam: No adenopathy Results - Labs Lab/Micro Results: Lab Results-Last 24 Hours 07/20/20 07/20/20 07/20/20 Range/Units 12:50 12:50 12:50 WBC 10.7 H (4.0-10.5) K/mm3 RBC 3.06 L (4.1-5.4) M/mm3 Hgb 5.7 L* (12.0-16.0) gm/dl Hct 23.4 L (35-47) % MCV 76.5 L (78-100) fl MCH 18.6 L (26-32) pg MCHC 24.4 L (32-36) g/dl RDW 23.0 H (11.5-14.0) % Plt Count 548 H (150-450) K/mm3 MPV 9.7 (7.5-11.0) fl Gran % 87.3 H (36.0-66.0) % Eos # (Auto) 0.13 (0-0.5) Absolute Lymphs (auto) 0.63 L (1.0-4.6) Absolute Monos (auto) 0.55 (0.0-1.3) Lymphocytes % 5.9 L (24.0-44.0) % Monocytes % 5.1 (0.0-12.0) % Eosinophils % 1.2 (0.00-5.0) % Basophils % 0.5 (0.0-0.4) % Absolute Granulocytes 9.37 H (1.4-6.9) Basophils # 0.05 (0-0.4) Slides for Path Review YES ABO Group A Rh Factor POSITIVE Antibody Screen NEGATIVE (NEGATIVE) Crossmatch COMPATIBLE COMPATIBLE (COMPATIBLE) - Other Procedures and Tests Respiratory Therapy 07/20/20 18:37 Oxygen NASAL CANNULA 2 lpm 07/20/20 18:38 Respiratory Therapy Assessment DAILY Assessment/Plan (1) Acute anemia Current Visit: Yes Status: Acute Assessment & Plan: Chief Complaint Diagnosis anemia Allergies Allergy/AdvReac Type Severity Reaction Status Date / Time morphine Allergy Severe Fainting Verified 06/05/20 08:53 oxycodone Allergy Shortness Verified 06/05/20 08:53 of Breath Penicillins Allergy Verified 06/05/20 08:53 oxymorphone AdvReac Severe Fainting Verified 06/05/20 08:53 [place] AdvReac Intermediate Headache Verified 06/05/20 08:53 omeprazole AdvReac Intermediate Stomach Verified 06/05/20 08:53 Pain bupropion HCl AdvReac Mild Hives Verified 06/05/20 08:53 [From Wellbutrin] Vital Signs (Last 24 hours) Temp Pulse Resp BP Pulse Ox 07/20/20 16:00 98.4 F 96 H 24 106/55 95 07/20/20 13:24 135/67 Current Medications Generic Name Dose Route Start Last Admin Trade Name Freq PRN Reason Stop Dose Admin Sodium Chloride 500 mls @ 50 mls/hr 07/20/20 14:30 07/20/20 14:53 Sodium Chloride 0.9% 500 Ml IV 08/19/20 14:29 50 mls/hr .Q10H VALERY Administration Intake & Output (Last 24 hours) 07/18/20 07/19/20 07/20/20 07/21/20 11:59 11:59 11:59 11:59 Intake Total 360 Balance 360 Weight 79.5 kg Laboratory Results (Last 24 hours) 07/20/20 07/20/20 07/20/20 12:50 12:50 12:50 WBC 10.7 H RBC 3.06 L Hgb 5.7 L* Hct 23.4 L MCV 76.5 L MCH 18.6 L MCHC 24.4 L RDW 23.0 H Plt Count 548 H MPV 9.7 Gran % 87.3 H Eos # (Auto) 0.13 Absolute Lymphs (auto) 0.63 L Absolute Monos (auto) 0.55 Lymphocytes % 5.9 L Monocytes % 5.1 Eosinophils % 1.2 Basophils % 0.5 Absolute Granulocytes 9.37 H Basophils # 0.05 Slides for Path Review YES ABO Group A Rh Factor POSITIVE Antibody Screen NEGATIVE Crossmatch COMPATIBLE COMPATIBLE Orders (Last 24 hours) Category Date Time Status IV Insertion ROUTINE Care 07/20/20 14:30 Active Observation [Place in Observation] ROUTINE Care 07/20/20 12:13 Active House Regular Diet Diet 07/20/20 Dinner Active ABO TYPING Urgent Lab 07/20/20 12:50 Completed Antibody Screen Urgent Lab 07/20/20 12:50 Completed BLOOD COMPONENT REQUEST Urgent Lab 07/20/20 12:50 Completed CBC W DIFF Routine Lab 07/20/20 12:50 Completed RH TYPING Urgent Lab 07/20/20 12:50 Completed NaCl 0.9% 500 ml [Sodium Chloride 0.9% 500 ML] 500 ml Med 07/20/20 14:30 Active IV 50 mls/hr Oxygen NASAL CANNULA 2 lpm RT 07/20/20 18:37 Active Respiratory Therapy Assessment DAILY RT 07/20/20 18:38 Active Patient Care Notes (Last 24 hours) 07/20/20 19:00 Case Management Note by Anabela Brown PATIENT HAS [facility]. THEY WILL NEED NOTIFIED WHEN PATIENT DISCHARGES HOME AT [phone]. THEY WILL NEED FAXED THE DC INSTRUCTIONS, DC MED LIST AND DC SUMMARY(IF AVAILABLE) TO [phone]. Initialized on 07/20/20 19:00 - END OF NOTE 07/20/20 14:18 Nursing Note by Ethan Coats Patient states she came to hospital because was told by Dr Cameron to come in for blood transfusion. States h/o chronic anemia. Patient states having blood transfusions in past. I contacted Dr Cameron and was told by him that patient has low hgb and he wants patient to have 2 units prbc's infused today and then sent home. Dr Cameron wanted patient put in observation on med/surg and stated he wanted patient released to home after blood infused. I put in orders for type and screen for 2 units prbc's, cbc, and observation to med/surg. I also contacted Carrie from [facility] and was informed that outpatient surgery does not do blood transfusions on the weekends. Initialized on 07/20/20 14:18 - END OF NOTE Code(s): D64.9 - ANEMIA, UNSPECIFIED (2) Chronic anemia Current Visit: No Status: Chronic Code(s): D64.9 - ANEMIA, UNSPECIFIED Hospital Summary - Hospital Course Hospital Course: Last Vital Signs Temp 98.4 F 07/20/20 16:00 Pulse 96 H 07/20/20 16:00 Resp 24 07/20/20 16:00 BP 106/55 07/20/20 16:00 Pulse Ox 95 07/20/20 16:00 Allergies morphine Allergy (Severe, Verified 06/05/20 08:53) Fainting oxycodone Allergy (Verified 06/05/20 08:53) Shortness of Breath Penicillins Allergy (Verified 06/05/20 08:53) oxymorphone Adverse Reaction (Severe, Verified 06/05/20 08:53) Fainting [place] Adverse Reaction (Intermediate, Verified 06/05/20 08:53) Headache omeprazole Adverse Reaction (Intermediate, Verified 06/05/20 08:53) Stomach Pain bupropion HCl [From Wellbutrin] Adverse Reaction (Mild, Verified 06/05/20 08:53) Hives Active Medications Sodium Chloride (Sodium Chloride 0.9% 500 Ml) 500 mls @ 50 mls/hr IV .Q10H VALERY Stop: 08/19/20 14:29 Last Admin: 05/22/21 14:53 Dose: 50 mls/hr Documented by: Intake & Output 07/20/20 07/21/20 11:59 11:59 Intake Total 360 Balance 360 Weight 79.5 kg Orders 07/20/20 12:13 Observation [Place in Observation] ROUTINE 07/20/20 14:30 IV Insertion ROUTINE NaCl 0.9% 500 ml [Sodium Chloride 0.9% 500 ML] 500 ml IV 50 mls/hr 07/20/20 Dinner House Regular Diet 07/20/20 18:37 Oxygen NASAL CANNULA 2 lpm 07/20/20 18:38 Respiratory Therapy Assessment DAILY Lab Tests 07/20/20 07/20/20 07/20/20 12:50 12:50 12:50 WBC 10.7 H RBC 3.06 L Hgb 5.7 L* Hct 23.4 L MCV 76.5 L MCH 18.6 L MCHC 24.4 L RDW 23.0 H Plt Count 548 H MPV 9.7 Gran % 87.3 H Eos # (Auto) 0.13 Absolute Lymphs (auto) 0.63 L Absolute Monos (auto) 0.55 Lymphocytes % 5.9 L Monocytes % 5.1 Eosinophils % 1.2 Basophils % 0.5 Absolute Granulocytes 9.37 H Basophils # 0.05 Slides for Path Review YES ABO Group A Rh Factor POSITIVE Antibody Screen NEGATIVE Crossmatch COMPATIBLE COMPATIBLE - Vitals & Intake/Output Vital Signs: Vital Signs Temperature 98.4 F 07/20/20 16:00 Pulse Rate 96 H 07/20/20 16:00 Respiratory Rate 24 07/20/20 16:00 Blood Pressure 106/55 07/20/20 16:00 O2 Sat by Pulse Oximetry 95 07/20/20 16:00 Intake & Output: Intake & Output 07/18/20 07/19/20 07/20/20 07/21/20 11:59 11:59 11:59 11:59 Intake Total 360 Balance 360 Weight 79.5 kg - Lab Result Diagrams: 07/20/20 12:50 Lab Results-Last 24 Hrs: Lab Results-Last 24 Hours 07/20/20 07/20/20 07/20/20 Range/Units 12:50 12:50 12:50 WBC 10.7 H (4.0-10.5) K/mm3 RBC 3.06 L (4.1-5.4) M/mm3 Hgb 5.7 L* (12.0-16.0) gm/dl Hct 23.4 L (35-47) % MCV 76.5 L (78-100) fl MCH 18.6 L (26-32) pg MCHC 24.4 L (32-36) g/dl RDW 23.0 H (11.5-14.0) % Plt Count 548 H (150-450) K/mm3 MPV 9.7 (7.5-11.0) fl Gran % 87.3 H (36.0-66.0) % Eos # (Auto) 0.13 (0-0.5) Absolute Lymphs (auto) 0.63 L (1.0-4.6) Absolute Monos (auto) 0.55 (0.0-1.3) Lymphocytes % 5.9 L (24.0-44.0) % Monocytes % 5.1 (0.0-12.0) % Eosinophils % 1.2 (0.00-5.0) % Basophils % 0.5 (0.0-0.4) % Absolute Granulocytes 9.37 H (1.4-6.9) Basophils # 0.05 (0-0.4) Slides for Path Review YES ABO Group A Rh Factor POSITIVE Antibody Screen NEGATIVE (NEGATIVE) Crossmatch COMPATIBLE COMPATIBLE (COMPATIBLE) - Procedures and Test Procedures and Tests throughout Hospitalization: Therapy Orders & Screens 07/20/20 18:37 Oxygen NASAL CANNULA 2 lpm Comment: O2 SAT 88% ON RM AIR Diagnosis: anemia 07/20/20 18:38 Respiratory Therapy Assessment DAILY Comment: Diagnosis: anemia - Discharge Discharge Date: 07/20/20 Disposition: Home, Self-Care Condition: Stable Prescriptions: Continue Clonazepam 0.5 mg [Klonopin 0.5 MG] 2 mg PO BID Fluticasone/Salmeterol Disc [Advair 250-50 Diskus 14 Dose] 1 puff IH BID Famotidine 20 mg [Pepcid 20 MG] 40 mg PO BID Albuterol/Ipratropium Mdi [Combivent Inhaler] 1 puff IH Q6H Sertraline HCl 100 mg [Zoloft 100 MG] 200 mg PO DAILY Isosorbide Mononitrate 30 mg [Imdur 30 MG] 30 mg PO DAILY Tizanidine HCl 4 mg [Zanaflex 4 MG] 4 mg PO TID Levothyroxine Sodium 25 Mcg [Synthroid 25 Mcg] 25 mcg PO DAILY Quetiapine Fumarate [Seroquel] 200 mg PO QAM Vits W-Ca,Fe,FA(<1Mg) [] 1 each PO DAILY Nitroglycerin 0.4 mg Tablet [Nitrostat 0.4 MG Tablet] 0.4 mg SL UD PRN PRN Reason: Chest Pain Albuterol Common Canister [Ventolin Common Canister] 2 puff IH Q4-6HPRN PRN PRN Reason: Shortness Of Breath Quetiapine Fumarate 300 mg PO QHS Prednisone 20 mg [Deltasone 20 mg] 20 mg PO BID Gabapentin 600 mg PO DAILY Gabapentin [Neurontin] 2,400 mg PO HS Follow up with: WEN CAMERON MD [Primary Care Provider] -
[2020-07-20 20:57] VITALS: BP 131/59; O2SAT 100
== END 2020-07-20 20:30 | disposition home health service (06) ==
LOC: MED SURG 12:10
PROVIDERS: ADMIT General Practice; ATTEND General Practice
DX: D64.9 Anemia, unspecified (principal); Z79.899 Other long term (current) drug therapy
CPT/HCPCS: 36415; 36430; 85025; 86850; 86900; 86901; 86922; 94760; G0378; P9016

== ENCOUNTER 2020-09-17 11:20 | Observation (INO) | payer MEDICARE ==
[2020-09-17 14:46] LABS: Hematocrit 17.5 % (35-47); Mean Corpuscular Hemoglobin 18.1 pg (26-32); Mean Corpuscular Hgb Concent. 25.1 g/dl (32-36); Mean Platelet Volume 9.3 fl (7.5-11.0); Platelet Count 429 K/mm3 (150-450); Red Blood Count 2.43 M/mm3 (4.1-5.4); Red Cell Distribution Width 22.3 % (11.5-14.0); White Blood Count 9.8 K/mm3 (4.0-10.5)
[2020-09-17 15:03] LABS: Hemoglobin 4.4 gm/dl (12.0-16.0)
[2020-09-17] MEDS ORDERED: DUONEB 0.5-3 MG/3 ml Neb IH ONE (15:33)
[2020-09-17] MEDS: DUONEB 0.5-3 MG/3 ml Neb IH SCH ×3 (15:35→22:38)
[2020-09-17 15:46] LABS: ABO TYPING A; Antibody Screen NEGATIVE (NEGATIVE); RH TYPING POSITIVE
[2020-09-17 15:47] LABS: CROSS MATCH (PRBC) COMPATIBLE (COMPATIBLE)
[2020-09-17] MEDS ORDERED: Sodium Chloride 0.9% 1000 ML 1,000 ML IV SCH (16:00)
[2020-09-17] MEDS ORDERED: Nitrostat 0.4 MG Tablet SL PRN (17:09)
[2020-09-17] MEDS: TYLENOL 325 MG PO PRN ×2 (17:13→21:32)
--- NOTE | 2020-09-17 17:15 | PCM.HP ---
History of Present Illness - Chief Complaint Chief Complaint: Patient was seen in office, c/o weakness and Shortness of b reath, CBC done History of Present Illness: is a 64 year old female seen in the office yesterday C was complaining of shortness of breath and weakness. Complete blood count was done. So patient hemoglobin is only 4.6. So patient is being admitted for 3 units of blood transfusion. - Review of Systems Constitutional: Fatigue, Weakness, No Fever, No Chills Eyes: No Symptoms Ears, Nose, & Throat: No Symptoms Respiratory: No Cough, No Short Of Breath Cardiac: No Chest Pain, No Edema, No Syncope Abdominal/Gastrointestinal: No Abdominal Pain, No Nausea, No Vomiting, No Diarrhea Genitourinary Symptoms: No Dysuria Musculoskeletal: No Back Pain, No Neck Pain Skin: No Rash Neurological: No Dizziness, No Focal Weakness, No Sensory Changes Psychological: No Symptoms Endocrine: No Symptoms Hematologic/Lymphatic: No Symptoms Immunological/Allergic: No Symptoms Medications & Allergies Home Medications: Home Medication List Albuterol/Ipratropium Mdi [Combivent Inhaler] 1 puff IH Q4H 12/29/12 [History Confirmed 09/17/20] Clonazepam 0.5 mg [Klonopin 0.5 MG] 2 mg PO BID 12/29/12 [History Confirmed 09/17/20] Famotidine 20 mg [Pepcid 20 MG] 40 mg PO BID 12/29/12 [History Confirmed 09/17/20] Fluticasone/Salmeterol Disc [Advair 250-50 Diskus 14 Dose] 1 puff IH BID 12/29/12 [History Confirmed 09/17/20] Sertraline HCl 100 mg [Zoloft 100 MG] 200 mg PO DAILY 12/17/13 [History Confirmed 09/17/20] Isosorbide Mononitrate 30 mg [Imdur 30 MG] 30 mg PO DAILY 11/05/14 [History Confirmed 09/17/20] Tizanidine HCl 4 mg [Zanaflex 4 MG] 4 mg PO TID 01/16/15 [History Confirmed 09/17/20] Levothyroxine Sodium 25 Mcg [Synthroid 25 Mcg] 25 mcg PO DAILY 10/17/15 [History Confirmed 09/17/20] Quetiapine Fumarate [Seroquel] 200 mg PO QAM 10/17/15 [History Confirmed 09/17/20] Vits W-Ca,Fe,FA(<1Mg) [] 1 each PO DAILY 10/18/15 [History Confirmed 09/17/20] Nitroglycerin 0.4 mg Tablet [Nitrostat 0.4 MG Tablet] 0.4 mg SL UD PRN 11/15/15 [History Confirmed 09/17/20] Albuterol Common Canister [Ventolin Common Canister] 2 puff IH Q4-6HPRN PRN 07/08/19 [History Confirmed 09/17/20] Quetiapine Fumarate 300 mg PO QHS 07/08/19 [History Confirmed 09/17/20] Gabapentin 1,200 mg PO DAILY 04/08/20 [History Confirmed 09/17/20] Gabapentin [Neurontin] 2,400 mg PO HS 04/08/20 [History Confirmed 09/17/20] Allergies/Adverse Reactions: Allergies Allergy/AdvReac Type Severity Reaction Status Date / Time morphine Allergy Severe Fainting Verified 06/05/20 08:53 oxycodone Allergy Shortness Verified 06/05/20 08:53 of Breath Penicillins Allergy Verified 06/05/20 08:53 oxymorphone AdvReac Severe Fainting Verified 06/05/20 08:53 [place] AdvReac Intermediate Headache Verified 06/05/20 08:53 omeprazole AdvReac Intermediate Stomach Verified 06/05/20 08:53 Pain bupropion HCl AdvReac Mild Hives Verified 06/05/20 08:53 [From Wellbutrin] - Past Medical History Past Medical History: Yes Neurological History: Migraines ENT History: No Pertinent History Cardiac History: Congestive Heart Failure, Coronary Artery Disease, High Cholesterol Respiratory History: Asthma, Bronchitis, COPD, Pneumonia Endocrine Medical History: Hypothyroidism Musculoskelatal History: Arthritis GI Medical History: GERD, Hernia, Polyps History: No Pertinent History Pyscho-Social History: Anxiety, Bipolar, Depression Reproductive Disorders: Fibroids Comment: 2 LEAKY VALVES. BORDERLINE PERSONALITY DISORDER, PTSD, manic depressive. bone deficiency - Female History Are you now?: No - Past Surgical History Past Surgical History: Yes Neuro Surgical History: No Pertinent History Cardiac History: Cardiac Catheterization Respiratory Surgery: No Pertinent History GI Surgical History: Other Genitourinary Surgical Hx: No Pertinent History Musculskeletal Surgical Hx: Other Female Surgical History: Section Other Surgical History: ARM SURGERY-- left wrist laceration from a glass door,, 2 c-sections, EGD with dilitation, Colonoscopy, heart cathx2 - Social History Smoking Status: Current every day smoker How long have you smoked: 40 years Exposure to second hand smoke: Yes Alcohol: None Drug Use: none Significant Family History: no pertinent family hx - Physical Exam Vital Signs: Vital Signs - 24 hr Temp Pulse Resp BP Pulse Ox 09/17/20 16:00 97.4 F 101 H 18 113/58 98 09/17/20 15:49 101 H 18 98 09/17/20 15:35 98 09/17/20 14:39 97.4 F 104 H 22 113/58 99 General Appearance: no apparent distress, alert Neurologic Exam: alert, oriented x 3, cooperative, normal mood/affect, nml cerebellar function, nml station & gait, sensation nml, No motor deficits Eye Exam: PERRL/EOMI, eyes nml inspection Ears, Nose, Throat Exam: normal ENT inspection, TMs normal, pharynx normal, moist mucous membranes Neck Exam: normal inspection, non-tender, supple, full range of motion Respiratory Exam: diminished breath sounds, crackles/rales, rhonchi, wheezing, No respiratory distress Cardiovascular Exam: regular rate/rhythm, normal heart sounds, normal peripheral pulses Gastrointestinal/Abdomen Exam: soft, normal bowel sounds, No tenderness, No mass Back Exam: normal inspection, normal range of motion, No CVA tenderness, No vertebral tenderness Extremity Exam: normal inspection, normal range of motion, pelvis stable Skin Exam: normal color, warm, dry, No rash Lymphatic Exam: No adenopathy Results - Labs Lab/Micro Results: Lab Results-Last 24 Hours 09/17/20 09/17/20 09/17/20 Range/Units 14:15 14:29 14:29 WBC 9.8 (4.0-10.5) K/mm3 RBC 2.43 L (4.1-5.4) M/mm3 Hgb 4.4 L* (12.0-16.0) gm/dl Hct 17.5 L (35-47) % MCV 72.0 L (78-100) fl MCH 18.1 L (26-32) pg MCHC 25.1 L (32-36) g/dl RDW 22.3 H (11.5-14.0) % Plt Count 429 (150-450) K/mm3 MPV 9.3 (7.5-11.0) fl SARS-CoV-2 (PCR) NEGATIVE (NEGATIVE) ABO Group A Rh Factor POSITIVE Antibody Screen NEGATIVE (NEGATIVE) Crossmatch COMPATIBLE (COMPATIBLE) 09/17/20 09/17/20 Range/Units 14:29 14:29 WBC (4.0-10.5) K/mm3 RBC (4.1-5.4) M/mm3 Hgb (12.0-16.0) gm/dl Hct (35-47) % MCV (78-100) fl MCH (26-32) pg MCHC (32-36) g/dl RDW (11.5-14.0) % Plt Count (150-450) K/mm3 MPV (7.5-11.0) fl SARS-CoV-2 (PCR) (NEGATIVE) ABO Group Rh Factor Antibody Screen (NEGATIVE) Crossmatch COMPATIBLE COMPATIBLE (COMPATIBLE) - Other Procedures and Tests Respiratory Therapy 09/17/20 15:08 Smoking Cessation Education ONCE 09/17/20 15:49 Oxygen Nasal Cannula 3 lpm Respiratory Therapy Assessment DAILY Assessment/Plan (1) Anemia due to blood loss, chronic Current Visit: Yes Status: Chronic Assessment & Plan: Chief Complaint Diagnosis Patient was seen in office, c/o weakness and Shortness of breath, CBC done Allergies Allergy/AdvReac Type Severity Reaction Status Date / Time morphine Allergy Severe Fainting Verified 06/05/20 08:53 oxycodone Allergy Shortness Verified 06/05/20 08:53 of Breath Penicillins Allergy Verified 06/05/20 08:53 oxymorphone AdvReac Severe Fainting Verified 06/05/20 08:53 [place] AdvReac Intermediate Headache Verified 06/05/20 08:53 omeprazole AdvReac Intermediate Stomach Verified 06/05/20 08:53 Pain bupropion HCl AdvReac Mild Hives Verified 06/05/20 08:53 [From Wellbutrin] Vital Signs (Last 24 hours) Temp Pulse Resp BP Pulse Ox 09/17/20 16:00 97.4 F 101 H 18 113/58 98 09/17/20 15:49 101 H 18 98 09/17/20 15:35 98 09/17/20 14:39 97.4 F 104 H 22 113/58 99 Current Medications Generic Name Dose Route Start Last Admin Trade Name Freq PRN Reason Stop Dose Admin Acetaminophen 650 mg 09/17/20 16:40 Tylenol 325 Mg PO 10/17/20 16:39 Q4H PRN PRN PAIN AND/OR FEVER Albuterol/Ipratropium 3 ml 09/17/20 15:00 09/17/20 15:35 Duoneb 0.5-3 Mg/3 Ml Neb IH 10/17/20 14:59 3 ml Q4HRT VALERY Administration Budesonide 0.5 mg 09/17/20 22:00 Pulmicort 0.5 Mg/2 Ml Respules IH 10/17/20 21:59 BID VALERY Clonazepam 2 mg 09/17/20 22:00 Klonopin PO 10/17/20 21:59 BID VALERY Famotidine 40 mg 09/17/20 22:00 Pepcid 20 Mg PO 10/17/20 21:59 BID VALERY Gabapentin 1,200 mg 09/18/20 10:00 Neurontin 300 Mg PO 10/18/20 09:59 DAILY VALERY Sodium Chloride 1,000 mls @ 50 mls/hr 09/17/20 16:00 Sodium Chloride 0.9% 1000 Ml IV 10/17/20 15:59 .Q20H VALERY Isosorbide Mononitrate 30 mg 09/18/20 10:00 Imdur 30 Mg PO 10/18/20 09:59 DAILY VALERY Levothyroxine Sodium 25 mcg 09/18/20 10:00 Synthroid 25 Mcg PO 10/18/20 09:59 DAILY VALERY Nitroglycerin 0.4 mg 09/17/20 17:09 Nitrostat 0.4 Mg Tablet SL 10/17/20 17:08 UD PRN CHEST PAIN Non-Formulary Medication 2,400 mg 09/17/20 22:00 Gabapentin [Neurontin] PO 10/17/20 21:59 HS VALERY Non-Formulary Medication 1 each 09/18/20 10:00 Vits W-Ca,Fe,Fa(<1mg) [] PO 10/18/20 09:59 DAILY VALERY Non-Formulary Medication 300 mg 09/17/20 22:00 Quetiapine Fumarate [Quetiapine Fumarate] PO 10/17/20 21:59 QHS VALERY Non-Formulary Medication 200 mg 09/18/20 10:00 Sertraline Hcl 100 Mg [Zoloft 100 Mg] PO 10/18/20 09:59 DAILY VALERY Quetiapine Fumarate 200 mg 09/18/20 10:00 Seroquel 100 Mg PO 10/18/20 09:59 QAM VALERY Fluticasone/Salmeterol 2 puff 09/17/20 19:00 Advair Hfa 115/21 Common Canister* IH 10/17/20 18:59 BIDRT VALERY Tizanidine HCl 4 mg 09/17/20 22:00 Zanaflex 4 Mg PO 10/17/20 21:59 TID VALERY Discontinued Medications Generic Name Dose Route Start Last Admin Trade Name Freq PRN Reason Stop Dose Admin Albuterol/Ipratropium Confirm 09/17/20 15:33 Duoneb 0.5-3 Mg/3 Ml Neb Administered 09/17/20 15:34 Dose 3 ml IH .STK-MED ONE Intake & Output (Last 24 hours) 09/15/20 09/16/20 09/17/20 09/18/20 11:59 11:59 11:59 11:59 Weight 78.5 kg Laboratory Results (Last 24 hours) 09/17/20 09/17/20 09/17/20 14:29 14:29 14:29 WBC 9.8 RBC 2.43 L Hgb 4.4 L* Hct 17.5 L MCV 72.0 L MCH 18.1 L MCHC 25.1 L RDW 22.3 H Plt Count 429 MPV 9.3 SARS-CoV-2 (PCR) ABO Group Rh Factor Antibody Screen Crossmatch COMPATIBLE COMPATIBLE 09/17/20 09/17/20 14:29 14:15 WBC RBC Hgb Hct MCV MCH MCHC RDW Plt Count MPV SARS-CoV-2 (PCR) NEGATIVE ABO Group A Rh Factor POSITIVE Antibody Screen NEGATIVE Crossmatch COMPATIBLE Orders (Last 24 hours) Category Date Time Status IV Insertion STAT Care 09/17/20 14:12 Active Miscellaneous Nursing Order ROUTINE Care 09/17/20 14:07 Active Telemetry q6h Care 09/17/20 14:00 Active Cardio-Pulmonary Rehab .as ordered Cons 09/17/20 15:24 Active Cane Piler/Discharge Plan ROUTINE Cons 09/17/20 15:08 Active House Regular Diet Diet 09/17/20 Dinner Active BLOOD COMPONENT REQUEST Urgent Lab 09/17/20 14:29 Completed CBC Urgent Lab 09/17/20 14:29 Completed SARS-CoV-2 Xpert Express Routine Lab 09/17/20 14:15 Completed TYPE AND SCREEN Urgent Lab 09/17/20 14:29 Completed Acetaminophen 325 mg [Tylenol 325 mg] Med 09/17/20 16:40 Active 650 mg PO Q4H PRN PRN Albuterol/Ipratropium 3ml Neb* [DUONEB 0.5-3 MG/3 ml Med 09/17/20 15:33 Discontinued Neb] 3 ml IH .STK-MED ONE Albuterol/Ipratropium 3ml Neb* [DUONEB 0.5-3 MG/3 ml Med 09/17/20 15:00 Active Neb] 3 ml IH Q4HRT Budesonide 0.5 mg/2 ml [Pulmicort 0.5 mg/2 ml Med 09/17/20 22:00 Active Respules] 0.5 mg IH BID Clonazepam [Klonopin] Med 09/17/20 22:00 Active 2 mg PO BID Famotidine 20 mg [Pepcid 20 MG] Med 09/17/20 22:00 Ordered 40 mg PO BID Fluticasone/Salmeterol [Advair Hfa Common Med 09/17/20 19:00 Active canister*] 2 puff IH BIDRT Gabapentin 300 mg [Neurontin 300 mg] Med 09/18/20 10:00 Active 1,200 mg PO DAILY Gabapentin [Neurontin] Med 09/17/20 22:00 Ordered 2,400 mg PO HS Isosorbide Mononitrate 30 mg [Imdur 30 MG] Med 09/18/20 10:00 Active 30 mg PO DAILY Levothyroxine Sodium 25 Mcg [Synthroid 25 Mcg] Med 09/18/20 10:00 Ordere d 25 mcg PO DAILY NaCl 0.9% 1000 ml [Sodium Chloride 0.9% 1000 ML] 1,000 Med 09/17/20 16:00 Active ml IV 50 mls/hr Nitroglycerin 0.4 mg Tablet [Nitrostat 0.4 MG Tablet Med 09/17/20 17:09 Active ] 0.4 mg SL UD PRN Vits W-Ca,Fe,FA(<1Mg) [] Med 09/18/20 10:00 Ordered 1 each PO DAILY Quetiapine Fumarate 100 mg [Seroquel 100 MG] Med 09/18/20 10:00 Ordered 200 mg PO QAM Quetiapine Fumarate [Quetiapine Fumarate] Med 09/17/20 22:00 Ordered 300 mg PO QHS Sertraline HCl 100 mg [Zoloft 100 MG] Med 09/18/20 10:00 Ordered 200 mg PO DAILY Tizanidine HCl 4 mg [Zanaflex 4 MG] Med 09/17/20 22:00 Ordered 4 mg PO TID Oxygen Nasal Cannula 3 lpm RT 09/17/20 15:49 Active Pulse Oximetry .spot check RT 09/17/20 15:49 Active RT Screen per Nursing Assess ONCE RT 09/17/20 15:08 Completed Respiratory Therapy Assessment DAILY RT 09/17/20 15:49 Active Smoking Cessation Education ONCE RT 09/17/20 15:08 Active Code(s): D50.0 - IRON DEFICIENCY ANEMIA SECONDARY TO BLOOD LOSS (CHRONIC) (2) Anemia associated with nutritional deficiency Current Visit: Yes Status: Chronic Code(s): D53.9 - NUTRITIONAL ANEMIA, UNSPECIFIED (3) COPD (chronic obstructive pulmonary disease) Current Visit: Yes Status: Chronic Qualifiers: COPD type: unspecified COPD (4) Normocytic anemia Current Visit: Yes Status: Chronic Code(s): D64.9 - ANEMIA, UNSPECIFIED
[2020-09-17] MEDS ORDERED: Pepcid 20 MG ONE (18:11)
[2020-09-17] MEDS: Pepcid 20 MG PO SCH (18:13)
[2020-09-17] MEDS ORDERED: Advair Hfa 115/21 Common canister IH SCH (19:00)
[2020-09-17] MEDS ORDERED: PULMICORT 0.5 MG/2 ML RESPULES IH ONE (19:17)
[2020-09-17] MEDS: PULMICORT 0.5 MG/2 ML RESPULES IH SCH (19:21)
[2020-09-17] MEDS ORDERED: Tums EX 750 MG ONE (20:37)
[2020-09-17] MEDS ORDERED: Tums EX 750 MG PO PRN (20:40)
[2020-09-17] MEDS: KLONOPIN PO SCH (21:31)
[2020-09-17] MEDS: Zanaflex 4 MG PO SCH (21:32)
[2020-09-17] MEDS ORDERED: Seroquel 100 MG PO SCH (22:00)
[2020-09-17] MEDS ORDERED: GABAPENTIN PO SCH (22:00)
[2020-09-17] MEDS ORDERED: Neurontin 400 MG PO SCH (22:00)
[2020-09-17] MEDS ORDERED: clonazePAM PO SCH (22:00)
[2020-09-17] MEDS ORDERED: ADVAIR 250-50 DISKUS 14 DOSE IH SCH (22:00)
[2020-09-17] MEDS ORDERED: OCEAN Nasal Spray NS ONE (22:43)
[2020-09-17] MEDS: OCEAN Nasal Spray NS PRN (23:10)
[2020-09-18] MEDS: DUONEB 0.5-3 MG/3 ml Neb IH SCH ×4 (03:10→14:39)
[2020-09-18] MEDS: PULMICORT 0.5 MG/2 ML RESPULES IH SCH (06:44)
[2020-09-18 06:52] LABS: Hemoglobin 8.5 gm/dl (12.0-16.0)
[2020-09-18] MEDS: Zanaflex 4 MG PO SCH ×2 (09:04→14:38)
[2020-09-18] MEDS: KLONOPIN PO SCH (09:04)
[2020-09-18] MEDS: Pepcid 20 MG PO SCH (09:05)
[2020-09-18] MEDS ORDERED: SERTRALINE HCL PO SCH (10:00)
[2020-09-18] MEDS ORDERED: Seroquel 100 MG PO SCH (10:00)
[2020-09-18] MEDS ORDERED: SYNTHROID 25 MCG PO SCH (10:00)
[2020-09-18] MEDS ORDERED: ZOLOFT 50 MG TABLET PO SCH (10:00)
[2020-09-18] MEDS ORDERED: Imdur 30 MG PO SCH (10:00)
[2020-09-18] MEDS ORDERED: THERAGRAN MULTIVITAMIN PO SCH (10:00)
[2020-09-18] MEDS ORDERED: NEURONTIN 300 MG PO SCH (10:00)
[2020-09-18] MEDS ORDERED: NON-FORMULARY ITEM (Prenatal Vits W-Ca,Fe,Fa(<1mg) [Prenatal] 1 EACH) PO SCH (10:00)
[2020-09-18 11:56] VITALS: BP 101/57
[2020-09-18] MEDS ORDERED: Levofloxacin 500MG/100ML D5W 500 MG/100 ML BAG IV ONE (12:45)
[2020-09-18] MEDS: OCEAN Nasal Spray NS PRN (13:21)
[2020-09-18] MEDS: TYLENOL 325 MG PO PRN (13:23)
[2020-09-18 14:47] VITALS: PULSE 96; O2SAT 98
== END 2020-09-18 15:55 | disposition home health service (06) ==
LOC: MED SURG 13:45
PROVIDERS: ADMIT General Practice; ATTEND General Practice
DX: D50.0 Iron deficiency anemia secondary to blood loss (chronic) (principal); D53.9 Nutritional anemia, unspecified; J44.9 Chronic obstructive pulmonary disease, unspecified; R53.1 Weakness; Z79.899 Other long term (current) drug therapy; E03.9 Hypothyroidism, unspecified; E78.00 Pure hypercholesterolemia, unspecified; I25.10 Atherosclerotic heart disease of native coronary artery without angina pectoris; F17.200 Nicotine dependence, unspecified, uncomplicated; Z20.828 Contact with and (suspected) exposure to other viral communicable diseases
CPT/HCPCS: 36415; 85014; 85018; 85027; 86850; 86900; 86901; 86922; 94640; 94760; P9016; U0003; 36430; J1956; A9270-GY; G0378

== ENCOUNTER 2020-12-23 16:31 | Observation (INO) | payer MEDICARE ==
--- NOTE | 2020-12-23 16:40 | ERPHSYRPT ---
- History of Present Illness Time Seen by Provider: 12/23/20 16:39 Source: patient Exam Limitations: no limitations Physician History: This is an oxygen dependent (3 L nasal cannula) 65-year-old white female patient of Dr. Cameron who presents with 1 week history of chest congestion and weakness. Patient has a history of congestive heart failure, COPD, coronary artery disease, chronic recurrent bronchitis, hypothyroidism, chronic anemia. She also has a history of PTSD, anxiety and depression disorder. Patient continues to smoke. Patient denies any active bleeding from any area. Timing/Duration: week(s) (1) Activities at Onset: none Severity of Dyspnea-Max: moderate Severity of Dyspnea-Current: moderate Possible Cause: occasional episodes, chronic episodes Modifying Factors: Improves With: activity (Worsens) Associated Symptoms: weakness Allergies/Adverse Reactions: morphine Allergy (Severe, Verified 12/23/20 16:55) Fainting oxycodone Allergy (Verified 12/23/20 16:55) Shortness of Breath Penicillins Allergy (Verified 12/23/20 16:55) oxymorphone Adverse Reaction (Severe, Verified 12/23/20 16:55) Fainting Coconut Adverse Reaction (Intermediate, Verified 12/23/20 16:55) Headache omeprazole Adverse Reaction (Intermediate, Verified 12/23/20 16:55) Stomach Pain bupropion HCl [From Wellbutrin] Adverse Reaction (Mild, Verified 12/23/20 16:55) Hives Home Medications: Albuterol/Ipratropium Mdi [Combivent Inhaler] 1 puff IH Q4H 12/29/12 [History] Clonazepam 0.5 mg [Klonopin 0.5 MG] 2 mg PO BID 12/29/12 [History] Famotidine 20 mg [Pepcid 20 MG] 40 mg PO BID 12/29/12 [History] Fluticasone/Salmeterol Disc [Advair/Wixella 250-50 Diskus 14 Dose] 1 puff IH BID 12/29/12 [History] Sertraline HCl 100 mg [Zoloft 100 MG] 200 mg PO DAILY 12/17/13 [History] Isosorbide Mononitrate 30 mg [Imdur 30 MG] 30 mg PO DAILY 11/05/14 [History] Tizanidine HCl 4 mg [Zanaflex 4 MG] 4 mg PO TID 01/16/15 [History] Levothyroxine Sodium 25 Mcg [Synthroid 25 Mcg] 25 mcg PO DAILY 10/17/15 [History] Quetiapine Fumarate [Seroquel] 200 mg PO QAM 10/17/15 [History] Vits W-Ca,Fe,FA(<1Mg) [] 1 each PO DAILY 10/18/15 [History] Nitroglycerin 0.4 mg Tablet [Nitrostat 0.4 MG Tablet] 0.4 mg SL UD PRN 11/15/15 [History] Albuterol Common Canister [Ventolin Common Canister] 2 puff IH Q4-6HPRN PRN 07/08/19 [History] Quetiapine Fumarate 300 mg PO QHS 07/08/19 [History] Gabapentin 1,200 mg PO DAILY 04/08/20 [History] Gabapentin [Neurontin] 2,400 mg PO HS 04/08/20 [History] Hx Tetanus, Diphtheria Vaccination/Date Given: Yes Hx Influenza Vaccination/Date Given: Yes Hx Pneumococcal Vaccination/Date Given: Yes Travel Risk - International Travel Have you traveled outside of the country in past 3 weeks: No - Coronavirus Screening Are you exhibiting any of the following symptoms?: No Close contact with a COVID-19 positive Pt in past 14-21 Days: No - Vaccine Status Have you recieved a Covid-19 vaccination: No - Vaccination Dates Comment: She would like the Covid vaccine. - Review of Systems Constitutional: Weakness Eyes: No Symptoms Ears, Nose, & Throat: No Symptoms Respiratory: Dyspnea Cardiac: No Symptoms Abdominal/Gastrointestinal: No Symptoms Genitourinary Symptoms: No Symptoms Musculoskeletal: No Symptoms Skin: No Symptoms Neurological: No Symptoms Psychological: No Symptoms Endocrine: No Symptoms Hematologic/Lymphatic: No Symptoms Immunological/Allergic: No Symptoms All Other Systems: Reviewed and Negative - Past Medical History Pertinent Past Medical History: Yes Neurological History: Migraines ENT History: No Pertinent History Cardiac History: Congestive Heart Failure, Coronary Artery Disease, High Cholesterol Respiratory History: Asthma, Bronchitis, COPD, Pneumonia Endocrine Medical History: Hypothyroidism Musculoskeletal History: Arthritis GI Medical History: GERD, Hernia, Polyps History: No Pertinent History Psycho-Social History: Anxiety, Bipolar, Depression Female Reproductive Disorders: Fibroids Other Medical History: 2 LEAKY VALVES. BORDERLINE PERSONALITY DISORDER, PTSD, manic depressive. bone deficiency - Past Surgical History Past Surgical History: Yes Neuro Surgical History: No Pertinent History Cardiac: Cardiac Catheterization Respiratory: No Pertinent History Gastrointestinal: Other Genitourinary: No Pertinent History Musculoskeletal: Other Female Surgical History: Section Other Surgical History: ARM SURGERY-- left wrist laceration from a glass door,, 2 c-sections, EGD with dilitation, Colonoscopy, heart cathx2 - Social History Smoking Status: Current every day smoker How long have you smoked: 40 years Exposure to second hand smoke: Yes Alcohol Use: Socially Drug Use: none Patient Lives Alone: No Significant Family History: no pertinent family hx - Nursing Vital Signs Nursing Vital Signs: Initial Vital Signs Temperature 97.9 F 12/23/20 16:42 Pulse Rate 107 H 12/23/20 16:42 Respiratory Rate 32 H 12/23/20 16:42 Blood Pressure 151/63 12/23/20 16:42 O2 Sat by Pulse Oximetry 100 12/23/20 16:42 Pain Scale Pain Intensity 5 - Physical Exam General Appearance: mild distress, alert, anxiety Eye Exam: PERRL/EOMI, eyes nml inspection Ears, Nose, Throat Exam: hearing decreased (Patient is chronically hard of hearing) Neck Exam: normal inspection, non-tender, supple, full range of motion Respiratory Exam: airway intact, rhonchi, wheezing (Bilateral right worse than left), No chest tenderness Cardiovascular/Chest Exam: tachycardia Abdominal/Gastrointestinal Exam: soft, normal bowel sounds, No tenderness Rectal Exam: not done Extremity Exam: non-tender, normal range of motion, normal inspection, normal capillary refill, no calf tenderness, no pedal edema, pelvis stable Neurologic Exam: alert, oriented x 3, cooperative, cow washer II-XII nml as tested, normal mood/affect, nml cerebellar function, nml station & gait, sensation nml Skin Exam: pale Lymphatic Exam: No adenopathy SpO2 Interpretation: normal SpO2: 3 (3 L nasal cannula) O2 Delivery: Nasal Cannula - Course Nursing assessment & vital signs reviewed: Yes Ordered Tests: Active Orders 24 hr Category Date Time Status Flight Operation Coordinator STAT Care 12/23/20 16:40 Active EKG-ER Only STAT Care 12/23/20 16:40 Active IV Insertion STAT Care 12/23/20 16:40 Active IV Insertion-2nd Peripheral STAT Care 12/23/20 16:52 Active Oxygen-ED Only Nasal Cannula 3 lpm Care 12/23/20 16:53 Active Pulse Oximetry (ED) STAT Care 12/23/20 16:40 Active CHEST 1 VIEW (PORTABLE) Stat Exams 12/23/20 16:40 Completed BLOOD CULTURE Stat Lab 12/23/20 16:45 Received CBC W DIFF Stat Lab 12/23/20 16:45 Completed CMP Stat Lab 12/23/20 16:40 Completed D-DIMER QUANTITATIVE Stat Lab 12/23/20 16:45 Completed INFLUENZA A+B NIMO Stat Lab 12/23/20 19:46 Completed Lactic Acid Stat Lab 12/23/20 17:52 Completed Manual Differential NC Stat Lab 12/23/20 16:45 Completed [place] Screen Stat Lab 12/23/20 19:00 Completed NT PRO BNP Stat Lab 12/23/20 16:40 Completed TROPONIN Q3H Lab 12/23/20 16:45 Completed TROPONIN Q3H Lab 12/23/20 19:35 Completed TROPONIN Q3H Lab 12/23/20 22:45 Ordered TROPONIN Q3H Lab 12/24/20 01:45 Ordered TROPONIN Q3H Lab 12/24/20 04:45 Ordered UA W/RFX UR CULTURE Stat Lab 12/23/20 20:19 Ordered Transfer Order Routine Transfer 12/23/20 Ordered Medication Summary Discontinued Medications Generic Name Dose Route Start Last Admin Trade Name Freq PRN Reason Stop Dose Admin Sodium Chloride Confirm 12/23/20 18:23 Sodium Chloride 0.9% 1000 Ml Administered 12/23/20 18:24 Dose 1,000 mls @ ud .ROUTE .STK-MED ONE Levofloxacin/Dextrose 500 mg in 100 mls @ 100 mls/hr 12/23/20 18:36 12/23/20 19:41 Levofloxacin 500mg/100ml D5w IV 12/23/20 19:35 Infused STAT STA Infusion Levofloxacin/Dextrose Confirm 12/23/20 18:40 Levofloxacin 500mg/100ml D5w Administered 12/23/20 18:41 Dose 500 mg in 100 mls @ ud IV .STK-MED ONE Sodium Chloride 1,000 mls @ 999 mls/hr 12/23/20 18:51 12/23/20 18:54 Sodium Chloride 0.9% 1000 Ml IV 12/23/20 19:51 999 mls/hr .Q1H1M STA Administration Lab/Rad Data: Laboratory Result Diagrams 12/23/20 16:45 12/23/20 16:40 Laboratory Results 12/23/20 12/23/20 12/23/20 Range/Units 19:46 19:40 19:35 WBC (4.0-10.5) K/mm3 RBC (4.1-5.4) M/mm3 Hgb (12.0-16.0) gm/dl Hct (35-47) % MCV (78-100) fl MCH (26-32) pg MCHC (32-36) g/dl RDW (11.5-14.0) % Plt Count (150-450) K/mm3 MPV (7.5-11.0) fl Segmented Neutrophils (36.0-66.0) % Lymphocytes (Manual) (24-44) % Monocytes (Manual) (0.0-12.0) % Hypochromia Platelet Estimate (NORMAL) RBC Morphology Microcytosis D-Dimer (215-500) ng/mL Sodium (137-145) mmol/L Potassium (3.5-5.1) mmol/L Chloride (98-107) mmol/L Carbon Dioxide (22-30) mmol/L Anion Gap (5-15) MEQ/L BUN (7-17) mg/dL Creatinine (0.52-1.04) mg/dL Estimated GFR ML/MIN Glucose (74-106) mg/dL Lactic Acid (0.4-2.0) Calcium (8.4-10.2) mg/dL Total Bilirubin (0.2-1.3) mg/dL AST (14-36) U/L ALT (0-35) U/L Alkaline Phosphatase (38-126) U/L Troponin I < 0.012 (0.000-0.034) ng/mL NT-Pro-B Natriuret Pep (0-900) pg/mL Serum Total Protein (6.3-8.2) g/dL Albumin (3.5-5.0) g/dL Monoscreen (Negative) Influenza Type A Ag NEGATIVE (NEGATIVE) Influenza Type B Ag NEGATIVE (NEGATIVE) SARS-CoV-2 (PCR) (NEGATIVE) Group A Strep Antibody NOT DETECTED (NEGATIVE) ABO Group Rh Factor Antibody Screen (NEGATIVE) Crossmatch (COMPATIBLE) 12/23/20 12/23/20 12/23/20 Range/Units 19:20 19:00 17:52 WBC (4.0-10.5) K/mm3 RBC (4.1-5.4) M/mm3 Hgb (12.0-16.0) gm/dl Hct (35-47) % MCV (78-100) fl MCH (26-32) pg MCHC (32-36) g/dl RDW (11.5-14.0) % Plt Count (150-450) K/mm3 MPV (7.5-11.0) fl Segmented Neutrophils (36.0-66.0) % Lymphocytes (Manual) (24-44) % Monocytes (Manual) (0.0-12.0) % Hypochromia Platelet Estimate (NORMAL) RBC Morphology Microcytosis D-Dimer (215-500) ng/mL Sodium (137-145) mmol/L Potassium (3.5-5.1) mmol/L Chloride (98-107) mmol/L Carbon Dioxide (22-30) mmol/L Anion Gap (5-15) MEQ/L BUN (7-17) mg/dL Creatinine (0.52-1.04) mg/dL Estimated GFR ML/MIN Glucose (74-106) mg/dL Lactic Acid 3.4 H (0.4-2.0) Calcium (8.4-10.2) mg/dL Total Bilirubin (0.2-1.3) mg/dL AST (14-36) U/L ALT (0-35) U/L Alkaline Phosphatase (38-126) U/L Troponin I (0.000-0.034) ng/mL NT-Pro-B Natriuret Pep (0-900) pg/mL Serum Total Protein (6.3-8.2) g/dL Albumin (3.5-5.0) g/dL Monoscreen NEGATIVE (Negative) Influenza Type A Ag (NEGATIVE) Influenza Type B Ag (NEGATIVE) SARS-CoV-2 (PCR) NEGATIVE (NEGATIVE) Group A Strep Antibody (NEGATIVE) ABO Group Rh Factor Antibody Screen (NEGATIVE) Crossmatch (COMPATIBLE) 12/23/20 12/23/20 12/23/20 Range/Units 16:45 16:45 16:45 WBC (4.0-10.5) K/mm3 RBC (4.1-5.4) M/mm3 Hgb (12.0-16.0) gm/dl Hct (35-47) % MCV (78-100) fl MCH (26-32) pg MCHC (32-36) g/dl RDW (11.5-14.0) % Plt Count (150-450) K/mm3 MPV (7.5-11.0) fl Segmented Neutrophils (36.0-66.0) % Lymphocytes (Manual) (24-44) % Monocytes (Manual) (0.0-12.0) % Hypochromia Platelet Estimate (NORMAL) RBC Morphology Microcytosis D-Dimer (215-500) ng/mL Sodium (137-145) mmol/L Potassium (3.5-5.1) mmol/L Chloride (98-107) mmol/L Carbon Dioxide (22-30) mmol/L Anion Gap (5-15) MEQ/L BUN (7-17) mg/dL Creatinine (0.52-1.04) mg/dL Estimated GFR ML/MIN Glucose (74-106) mg/dL Lactic Acid (0.4-2.0) Calcium (8.4-10.2) mg/dL Total Bilirubin (0.2-1.3) mg/dL AST (14-36) U/L ALT (0-35) U/L Alkaline Phosphatase (38-126) U/L Troponin I (0.000-0.034) ng/mL NT-Pro-B Natriuret Pep (0-900) pg/mL Serum Total Protein (6.3-8.2) g/dL Albumin (3.5-5.0) g/dL Monoscreen (Negative) Influenza Type A Ag (NEGATIVE) Influenza Type B Ag (NEGATIVE) SARS-CoV-2 (PCR) (NEGATIVE) Group A Strep Antibody (NEGATIVE) ABO Group Rh Factor Antibody Screen (NEGATIVE) Crossmatch COMPATIBLE COMPATIBLE COMPATIBLE (COMPATIBLE) 12/23/20 12/23/20 12/23/20 Range/Units 16:45 16:45 16:45 WBC (4.0-10.5) K/mm3 RBC (4.1-5.4) M/mm3 Hgb (12.0-16.0) gm/dl Hct (35-47) % MCV (78-100) fl MCH (26-32) pg MCHC (32-36) g/dl RDW (11.5-14.0) % Plt Count (150-450) K/mm3 MPV (7.5-11.0) fl Segmented Neutrophils (36.0-66.0) % Lymphocytes (Manual) (24-44) % Monocytes (Manual) (0.0-12.0) % Hypochromia Platelet Estimate (NORMAL) RBC Morphology Microcytosis D-Dimer 637 H* (215-500) ng/mL Sodium (137-145) mmol/L Potassium (3.5-5.1) mmol/L Chloride (98-107) mmol/L Carbon Dioxide (22-30) mmol/L Anion Gap (5-15) MEQ/L BUN (7-17) mg/dL Creatinine (0.52-1.04) mg/dL Estimated GFR ML/MIN Glucose (74-106) mg/dL Lactic Acid (0.4-2.0) Calcium (8.4-10.2) mg/dL Total Bilirubin (0.2-1.3) mg/dL AST (14-36) U/L ALT (0-35) U/L Alkaline Phosphatase (38-126) U/L Troponin I < 0.012 (0.000-0.034) ng/mL NT-Pro-B Natriuret Pep (0-900) pg/mL Serum Total Protein (6.3-8.2) g/dL Albumin (3.5-5.0) g/dL Monoscreen (Negative) Influenza Type A Ag (NEGATIVE) Influenza Type B Ag (NEGATIVE) SARS-CoV-2 (PCR) (NEGATIVE) Group A Strep Antibody (NEGATIVE) ABO Group A Rh Factor POSITIVE Antibody Screen NEGATIVE (NEGATIVE) Crossmatch COMPATIBLE (COMPATIBLE) 12/23/20 12/23/20 Range/Units 16:45 16:40 WBC 24.1 H (4.0-10.5) K/mm3 RBC 2.66 L (4.1-5.4) M/mm3 Hgb 4.8 L* (12.0-16.0) gm/dl Hct 19.6 L (35-47) % MCV 73.7 L (78-100) fl MCH 18.0 L (26-32) pg MCHC 24.5 L (32-36) g/dl RDW 20.8 H (11.5-14.0) % Plt Count 436 (150-450) K/mm3 MPV 10.1 (7.5-11.0) fl Segmented Neutrophils 90 H (36.0-66.0) % Lymphocytes (Manual) 9 L (24-44) % Monocytes (Manual) 1 (0.0-12.0) % Hypochromia 2+ Platelet Estimate NORMAL (NORMAL) RBC Morphology ABNORMAL Microcytosis 2+ D-Dimer (215-500) ng/mL Sodium 138 (137-145) mmol/L Potassium 3.4 L (3.5-5.1) mmol/L Chloride 100 (98-107) mmol/L Carbon Dioxide 29 (22-30) mmol/L Anion Gap 12.1 (5-15) MEQ/L BUN 15 (7-17) mg/dL Creatinine 0.62 (0.52-1.04) mg/dL Estimated GFR > 60.0 ML/MIN Glucose 104 (74-106) mg/dL Lactic Acid (0.4-2.0) Calcium 8.7 (8.4-10.2) mg/dL Total Bilirubin 0.30 (0.2-1.3) mg/dL AST 19 (14-36) U/L ALT 16 (0-35) U/L Alkaline Phosphatase 52 (38-126) U/L Troponin I (0.000-0.034) ng/mL NT-Pro-B Natriuret Pep 315 (0-900) pg/mL Serum Total Protein 6.7 (6.3-8.2) g/dL Albumin 3.9 (3.5-5.0) g/dL Monoscreen (Negative) Influenza Type A Ag (NEGATIVE) Influenza Type B Ag (NEGATIVE) SARS-CoV-2 (PCR) (NEGATIVE) Group A Strep Antibody (NEGATIVE) ABO Group Rh Factor Antibody Screen (NEGATIVE) Crossmatch (COMPATIBLE) - Progress Progress: improved, re-examined Air Movement: fair Progress Note: 12/23/20 17:28 Chest x-ray shows a nonacute chest with chronic features. 12/23/20 20:23 Medical decision making: This patient has symptomatic anemia with leukocytosis of a 24,000 white count. Her chest x-ray is clear. She had an elevated lactic acid level so we are rehydrating her and starting her on Levaquin as she is allergic to penicillins. I spoke with Dr. Cameron. We will admit her into the hospital. We will transfuse 2 units packed red blood cells here in the emergency department followed by 1/3 unit when she arrives to the floor. We will repeat labs in the morning. We will provide her gentle rehydration. We will continue antibiotics. Blood Culture(s) Obtained: Yes Antibiotics given: Yes Discussed with : Bandar Counseled pt/family regarding: lab results, diagnosis, need for follow-up, rad results - Departure Departure Disposition: In-patient Admission Clinical Impression: Leukocytosis, Symptomatic anemia Condition: Fair Critical Care Time: Yes Critical Care Time(excluding separately billable procedures): Critical 30-74 mins Referrals: WEN CAMERON MD [Primary Care Provider] -
[2020-12-23 16:54] LABS: Hematocrit 19.6 % (35-47); Mean Cell Volume 73.7 fl (78-100); Mean Corpuscular Hgb Concent. 24.5 g/dl (32-36); Mean Platelet Volume 10.1 fl (7.5-11.0); Platelet Count 436 K/mm3 (150-450); Red Blood Count 2.66 M/mm3 (4.1-5.4); Red Cell Distribution Width 20.8 % (11.5-14.0); White Blood Count 24.1 K/mm3 (4.0-10.5)
[2020-12-23 16:58] LABS: Hemoglobin 4.8 gm/dl (12.0-16.0)
[2020-12-23 17:19] LABS: ALBUMIN 3.9 g/dL (3.5-5.0); ALKALINE PHOSPHATASE 52 U/L (38-126); ANION GAP 12.1 MEQ/L (5-15); BLOOD UREA NITROGEN 15 mg/dL (7-17); CHLORIDE 100 mmol/L (98-107); Calcium 8.7 mg/dL (8.4-10.2); Carbon Dioxide 29 mmol/L (22-30); Creatinine 1 0.62 mg/dL (0.52-1.04); EST GLOMERULAR FILTRATION RATE > 60.0 ML/MIN; Glucose 104 mg/dL (74-106); NT PRO BNP 315 pg/mL (0-900); Potassium 3.4 mmol/L (3.5-5.1); SGOT/AST 19 U/L (14-36); SGPT/ALT 16 U/L (0-35); SODIUM 138 mmol/L (137-145); Total Protein 6.7 g/dL (6.3-8.2)
--- NOTE | 2020-12-23 17:19 | XRAY ---
Indication: Congestion and short of breath. Comparison: April 09, 2020. Portable chest is now clear. Heart not enlarged again with moderate sized hiatal hernia. Bony thorax intact again with mild osteopenia and degenerative changes. Impression: Nonacute chest with chronic features.
[2020-12-23 18:19] LABS: ABO TYPING A; Antibody Screen NEGATIVE (NEGATIVE); RH TYPING POSITIVE
[2020-12-23 18:23] LABS: CROSS MATCH (PRBC) COMPATIBLE (COMPATIBLE)
[2020-12-23] MEDS ORDERED: Sodium Chloride 0.9% 1000 ML 1,000 ML ONE (18:23)
[2020-12-23] MEDS ORDERED: Levofloxacin 500MG/100ML D5W 500 MG/100 ML BAG IV STA (18:36)
[2020-12-23] MEDS ORDERED: Levofloxacin 500MG/100ML D5W 500 MG/100 ML BAG IV ONE (18:40)
[2020-12-23] MEDS ORDERED: Sodium Chloride 0.9% 1000 ML 1,000 ML IV STA (18:51)
[2020-12-23 20:11] LABS: Lymphocytes 9 % (24-44); Monocyte 1 % (0.0-12.0); Neutrophils 90 % (36.0-66.0); Platelet Estimate NORMAL (NORMAL); Total Cells Counted 100
[2020-12-23 20:12] LABS: Hypochromia 2+; Microcytosis 2+
[2020-12-23 20:35] LABS: INFLUENZA A NEGATIVE (NEGATIVE); INFLUENZA B NEGATIVE (NEGATIVE)
[2020-12-23 20:52] LABS: Appearance SLIGHTLY CLOUDY (CLEAR); Bilirubin NEGATIVE (NEGATIVE); Blood NEGATIVE Ery/ul (0-5); Glucose NEGATIVE (NEGATIVE); Ketones NEGATIVE (NEGATIVE); Leukocyte Esterase NEGATIVE (NEGATIVE); Mucus SLIGHT /HPF (NEGATIVE); Nitrite NEGATIVE (NEGATIVE); Protein,Urine Dip NEGATIVE (Negative); Specific Gravity 1.011 (1.005-1.025); Urobilinogen NEGATIVE mg/dL (0-1); WBC 0-2 /HPF (0-5)
[2020-12-23] MEDS ORDERED: Lasix 40 MG/4 ML IV ONE (21:13)
[2020-12-23] MEDS ORDERED: Lasix 40 MG/4 ML ONE (21:15)
[2020-12-23] MEDS ORDERED: DUONEB 0.5-3 MG/3 ml Neb IH ONE ×2 (21:27→21:28)
[2020-12-23] MEDS ORDERED: Zofran 4 MG/2 ML VIAL IV PRN (22:15)
[2020-12-23] MEDS ORDERED: Sodium Chloride 0.9% 1000 ML 1,000 ML IV SCH (22:15)
[2020-12-23] MEDS ORDERED: Lasix 20 MG/2 ML IV SCH (22:45)
[2020-12-23] MEDS ORDERED: clonazePAM PO SCH (23:23)
[2020-12-23] MEDS ORDERED: NEURONTIN 300 MG PO SCH (23:27)
[2020-12-23] MEDS ORDERED: Seroquel 100 MG PO SCH (23:32)
[2020-12-23] MEDS ORDERED: VENTOLIN COMMON CANISTER IH PRN (23:34)
[2020-12-24] MEDS: Pepcid 20 MG PO SCH ×2 (00:20→09:20)
[2020-12-24] MEDS: Zanaflex 4 MG PO SCH ×3 (00:20→14:57)
[2020-12-24] MEDS: DUONEB 0.5-3 MG/3 ml Neb IH SCH ×4 (03:07→15:01)
[2020-12-24 05:43] LABS: BASOPHIL % 0.2 % (0.0-0.4); Basophil (Absolute #) 0.02 (0-0.4); Eosinophil % 0.7 % (0.00-5.0); Eosinophil (Absolute #) 0.08 (0-0.5); Hematocrit 24.7 % (35-47); Lymphocyte (Absolute #) 1.15 (1.0-4.6); Lymphocytes % 10.1 % (24.0-44.0); Mean Cell Volume 77.2 fl (78-100); Mean Corpuscular Hemoglobin 21.9 pg (26-32); Mean Corpuscular Hgb Concent. 28.3 g/dl (32-36); Mean Platelet Volume 9.9 fl (7.5-11.0); Monocyte (Absolute #) 0.96 (0.0-1.3); Monocytes % 8.4 % (0.0-12.0); Neutrophil % 80.6 % (36.0-66.0); Platelet Count 328 K/mm3 (150-450); Red Cell Distribution Width 20.4 % (11.5-14.0); White Blood Count 11.4 K/mm3 (4.0-10.5)
[2020-12-24 06:24] LABS: ALBUMIN 3.5 g/dL (3.5-5.0); ALKALINE PHOSPHATASE 48 U/L (38-126); BLOOD UREA NITROGEN 11 mg/dL (7-17); CHLORIDE 102 mmol/L (98-107); Calcium 8.2 mg/dL (8.4-10.2); Carbon Dioxide 32 mmol/L (22-30); Creatinine 1 0.81 mg/dL (0.52-1.04); EST GLOMERULAR FILTRATION RATE > 60.0 ML/MIN; Glucose 163 mg/dL (74-106); Potassium 3.1 mmol/L (3.5-5.1); SGOT/AST 25 U/L (14-36); SGPT/ALT 12 U/L (0-35); SODIUM 141 mmol/L (137-145); Total Protein 6.1 g/dL (6.3-8.2)
[2020-12-24 06:49] LABS: Slide Review 1 YES
[2020-12-24] MEDS ORDERED: Nitrostat 0.4 MG Tablet SL PRN (07:43)
[2020-12-24] MEDS ORDERED: Advair Hfa 115/21 Common canister IH SCH (08:00)
[2020-12-24] MEDS: TYLENOL 325 MG PO PRN ×2 (09:47→14:57)
[2020-12-24] MEDS ORDERED: Levofloxacin 500MG/100ML D5W 500 MG/100 ML BAG IV SCH (10:00)
[2020-12-24] MEDS ORDERED: THERAGRAN MULTIVITAMIN PO SCH (10:00)
[2020-12-24] MEDS ORDERED: NON-FORMULARY ITEM (Prenatal Vits W-Ca,Fe,Fa(<1mg) [Prenatal] 1 EACH Tablet) PO SCH (10:00)
[2020-12-24] MEDS ORDERED: Imdur 30 MG PO SCH (10:00)
[2020-12-24] MEDS ORDERED: SYNTHROID 25 MCG PO SCH (10:00)
[2020-12-24] MEDS ORDERED: ADVAIR/WIXELLA 250-50 DISKUS 14 DOSE IH SCH (10:00)
[2020-12-24] MEDS ORDERED: KLONOPIN PO SCH (10:00)
[2020-12-24] MEDS ORDERED: Neurontin 400 MG PO SCH ×2 (10:00→22:00)
[2020-12-24] MEDS ORDERED: Lasix 20 MG/2 ML IV SCH (12:32)
[2020-12-24] MEDS ORDERED: ZOLOFT 50 MG TABLET PO SCH (13:00)
[2020-12-24] MEDS ORDERED: Seroquel 100 MG PO SCH (13:00)
[2020-12-24] MEDS ORDERED: THEOPHYLLINE ER 24HR PO SCH (13:00)
[2020-12-24 13:37] VITALS: BP 172/90
[2020-12-24 13:54] LABS: Hematocrit 31.6 % (35-47); Hemoglobin 9.5 gm/dl (12.0-16.0)
[2020-12-24 15:38] VITALS: PULSE 107; O2SAT 97
--- NOTE | 2020-12-24 17:51 | PCM.SSS ---
History of Present Illness - Chief Complaint Chief Complaint: weakness for 3-4 days History of Present Illness: is a 65 year old female. who presents with 1 week history of chest congestion and weakness. Patient has a history of congestive heart failure, COPD, coronary artery disease, chronic recurrent bronchitis, hypothyroidism, chronic anemia. She also has a history of PTSD, anxiety and depression disorder. Patient continues to smoke. Patient denies any active bleeding from any area. Timing/Duration: week(s) (1) Activities at Onset: none Severity of Dyspnea-Max: moderate Severity of Dyspnea-Current: moderate Possible Cause: occasional episodes, chronic episodes Modifying Factors: Improves With: activity (Worsens) Associated Symptoms: weakness - Review of Systems Constitutional: Fatigue, Lethargy, Weakness, No Fever, No Chills Eyes: No Symptoms Ears, Nose, & Throat: No Symptoms Respiratory: Short Of Breath, No Cough Cardiac: No Chest Pain, No Edema, No Syncope Abdominal/Gastrointestinal: No Abdominal Pain, No Nausea, No Vomiting, No Diarrhea Genitourinary Symptoms: No Dysuria Musculoskeletal: No Back Pain, No Neck Pain Skin: No Rash Neurological: No Dizziness, No Focal Weakness, No Sensory Changes Psychological: No Symptoms Endocrine: No Symptoms Hematologic/Lymphatic: No Symptoms Immunological/Allergic: No Symptoms Medications & Allergies Home Medications: Home Medication List Albuterol/Ipratropium Mdi [Combivent Inhaler] 1 puff IH Q4H 12/29/12 [History Confirmed 12/23/20] Clonazepam 0.5 mg [Klonopin 0.5 MG] 2 mg PO BID 12/29/12 [History Confirmed 12/23/20] Famotidine 20 mg [Pepcid 20 MG] 40 mg PO BID 12/29/12 [History Confirmed 12/23/20] Fluticasone/Salmeterol Disc [Advair/Wixella 250-50 Diskus 14 Dose] 1 puff IH BID 12/29/12 [History Confirmed 12/23/20] Sertraline HCl 100 mg [Zoloft 100 MG] 200 mg PO DAILY 12/17/13 [History Confirmed 12/23/20] Isosorbide Mononitrate 30 mg [Imdur 30 MG] 30 mg PO DAILY 11/05/14 [History Confirmed 12/23/20] Tizanidine HCl 4 mg [Zanaflex 4 MG] 4 mg PO TID 01/16/15 [History Confirmed 12/23/20] Levothyroxine Sodium 25 Mcg [Synthroid 25 Mcg] 25 mcg PO DAILY 10/17/15 [History Confirmed 12/23/20] Quetiapine Fumarate [Seroquel] 200 mg PO QAM 10/17/15 [History Confirmed 12/23/20] Vits W-Ca,Fe,FA(<1Mg) [] 1 each PO DAILY 10/18/15 [History Confirmed 12/23/20] Nitroglycerin 0.4 mg Tablet [Nitrostat 0.4 MG Tablet] 0.4 mg SL UD PRN 11/15/15 [History Confirmed 12/23/20] Albuterol Common Canister [Ventolin Common Canister] 2 puff IH Q4-6HPRN PRN 07/08/19 [History Confirmed 12/23/20] Quetiapine Fumarate 300 mg PO QHS 07/08/19 [History Confirmed 12/23/20] Gabapentin 1,200 mg PO DAILY 04/08/20 [History Confirmed 12/23/20] Gabapentin [Neurontin] 2,400 mg PO HS 04/08/20 [History Confirmed 12/23/20] Theophylline Anhydrous 300 mg PO DAILY 12/23/20 [History Confirmed 12/23/20] Furosemide [Lasix] 20 mg PO DAILY #30 tablet 12/24/20 [Rx] Allergies/Adverse Reactions: Allergies Allergy/AdvReac Type Severity Reaction Status Date / Time morphine Allergy Severe Fainting Verified 12/23/20 16:55 oxycodone Allergy Shortness Verified 12/23/20 16:55 of Breath Penicillins Allergy Verified 12/23/20 16:55 oxymorphone AdvReac Severe Fainting Verified 12/23/20 16:55 C[place]ut AdvReac Intermediate Headache Verified 12/23/20 16:55 bupropion HCl AdvReac Mild Hives Verified 12/23/20 16:55 [From Wellbutrin] - Past Medical History Past Medical History: Yes Neurological History: Migraines ENT History: No Pertinent History Cardiac History: Congestive Heart Failure, Coronary Artery Disease, High Cholesterol Respiratory History: Asthma, Bronchitis, COPD, Pneumonia Endocrine Medical History: Hypothyroidism Musculoskelatal History: Arthritis GI Medical History: GERD, Hernia, Polyps History: No Pertinent History Pyscho-Social History: Anxiety, Bipolar, Depression Reproductive Disorders: Fibroids Comment: 2 LEAKY VALVES. BORDERLINE PERSONALITY DISORDER, PTSD, manic depressive. bone deficiency - Female History Are you now?: No - Past Surgical History Past Surgical History: Yes Neuro Surgical History: No Pertinent History Cardiac History: Cardiac Catheterization Respiratory Surgery: No Pertinent History GI Surgical History: Other Genitourinary Surgical Hx: No Pertinent History Musculskeletal Surgical Hx: Other Female Surgical History: Section Other Surgical History: ARM SURGERY-- left wrist laceration from a glass door,, 2 c-sections, EGD with dilitation, colonoscopy, heart cath x 2 - Social History Smoking Status: Current every day smoker How long have you smoked: 40+ years Exposure to second hand smoke: Yes Alcohol: None Drug Use: none Significant Family History: no pertinent family hx - Physical Exam Vital Signs: Vital Signs - 24 hr Temp Pulse Resp BP Pulse Ox 12/24/20 15:01 107 H 24 97 12/24/20 12:00 97.7 F 94 H 31 H 172/90 99 12/24/20 10:55 88 22 97 12/24/20 08:00 97.8 F 82 21 141/71 99 12/24/20 05:51 85 20 95 12/24/20 04:00 97.1 F 88 24 140/71 100 12/24/20 03:07 88 18 98 12/23/20 23:41 94 H 16 94 L 12/23/20 22:40 99.4 F 98 H 16 141/65 99 12/23/20 22:29 99.4 F 98 H 16 144/65 99 12/23/20 22:00 90 18 126/81 100 12/23/20 21:30 94 H 18 100 12/23/20 21:00 92 H 18 131/79 100 12/23/20 20:50 3 L 12/23/20 20:00 93 H 20 144/75 100 12/23/20 19:00 100 H 20 156/68 99 12/23/20 18:05 99 H 34 H 128/54 100 General Appearance: no apparent distress, alert Neurologic Exam: alert, oriented x 3, cooperative, normal mood/affect, nml cerebellar function, nml station & gait, sensation nml, No motor deficits Eye Exam: PERRL/EOMI, eyes nml inspection Ears, Nose, Throat Exam: normal ENT inspection, TMs normal, pharynx normal, moist mucous membranes Neck Exam: normal inspection, non-tender, supple, full range of motion Respiratory Exam: diminished breath sounds, wheezing, No respiratory distress Cardiovascular Exam: regular rate/rhythm, normal heart sounds, normal peripheral pulses Gastrointestinal/Abdomen Exam: soft, normal bowel sounds, No tenderness, No mass Back Exam: normal inspection, normal range of motion, No CVA tenderness, No vertebral tenderness Extremity Exam: normal inspection, normal range of motion, pelvis stable Skin Exam: normal color, warm, dry, No rash Lymphatic Exam: No adenopathy Results - Labs Lab/Micro Results: Lab Results-Last 24 Hours 12/23/20 12/23/20 12/23/20 Range/Units 16:40 16:45 16:45 WBC (4.0-10.5) K/mm3 RBC (4.1-5.4) M/mm3 Hgb (12.0-16.0) gm/dl Hct (35-47) % MCV (78-100) fl MCH (26-32) pg MCHC (32-36) g/dl RDW (11.5-14.0) % Plt Count (150-450) K/mm3 MPV (7.5-11.0) fl Gran % (36.0-66.0) % Eos # (Auto) (0-0.5) Absolute Lymphs (auto) (1.0-4.6) Absolute Monos (auto) (0.0-1.3) Lymphocytes % (24.0-44.0) % Monocytes % (0.0-12.0) % Eosinophils % (0.00-5.0) % Basophils % (0.0-0.4) % Absolute Granulocytes (1.4-6.9) Segmented Neutrophils 90 H (36.0-66.0) % Lymphocytes (Manual) 9 L (24-44) % Monocytes (Manual) 1 (0.0-12.0) % Basophils # (0-0.4) Hypochromia 2+ Platelet Estimate NORMAL (NORMAL) RBC Morphology ABNORMAL Microcytosis 2+ Sodium 138 (137-145) mmol/L Potassium 3.4 L (3.5-5.1) mmol/L Chloride 100 (98-107) mmol/L Carbon Dioxide 29 (22-30) mmol/L Anion Gap 12.1 (5-15) MEQ/L BUN 15 (7-17) mg/dL Creatinine 0.62 (0.52-1.04) mg/dL Estimated GFR > 60.0 ML/MIN Glucose 104 (74-106) mg/dL Lactic Acid (0.4-2.0) Calcium 8.7 (8.4-10.2) mg/dL Total Bilirubin 0.30 (0.2-1.3) mg/dL AST 19 (14-36) U/L ALT 16 (0-35) U/L Alkaline Phosphatase 52 (38-126) U/L Troponin I < 0.012 (0.000-0.034) ng/mL NT-Pro-B Natriuret Pep 315 (0-900) pg/mL Serum Total Protein 6.7 (6.3-8.2) g/dL Albumin 3.9 (3.5-5.0) g/dL Urine Color (YELLOW) Urine Appearance (CLEAR) Urine pH (5-6) Ur Specific Junction (1.005-1.025) Urine Protein (Negative) Urine Ketones (NEGATIVE) Urine Blood (0-5) Erasto/ul Urine Nitrite (NEGATIVE) Urine Bilirubin (NEGATIVE) Urine Urobilinogen (0-1) mg/dL Ur Leukocyte Esterase (NEGATIVE) Urine WBC (Auto) (0-5) /HPF Urine RBC (Auto) (0-2) /HPF U Epithel Cells (Auto) (FEW) /HPF Urine Bacteria (Auto) (NEGATIVE) /HPF Urine Mucus (Auto) (NEGATIVE) /HPF Urine Culture Reflexed (NO) Urine Glucose (NEGATIVE) mg/dL Monoscreen (Negative) Influenza Type A Ag (NEGATIVE) Influenza Type B Ag (NEGATIVE) SARS-CoV-2 (PCR) (NEGATIVE) Group A Strep Antibody (NEGATIVE) Slides for Path Review ABO Group Rh Factor Antibody Screen (NEGATIVE) Crossmatch (COMPATIBLE) 12/23/20 12/23/20 12/23/20 Range/Units 16:45 16:45 16:45 WBC (4.0-10.5) K/mm3 RBC (4.1-5.4) M/mm3 Hgb (12.0-16.0) gm/dl Hct (35-47) % MCV (78-100) fl MCH (26-32) pg MCHC (32-36) g/dl RDW (11.5-14.0) % Plt Count (150-450) K/mm3 MPV (7.5-11.0) fl Gran % (36.0-66.0) % Eos # (Auto) (0-0.5) Absolute Lymphs (auto) (1.0-4.6) Absolute Monos (auto) (0.0-1.3) Lymphocytes % (24.0-44.0) % Monocytes % (0.0-12.0) % Eosinophils % (0.00-5.0) % Basophils % (0.0-0.4) % Absolute Granulocytes (1.4-6.9) Segmented Neutrophils (36.0-66.0) % Lymphocytes (Manual) (24-44) % Monocytes (Manual) (0.0-12.0) % Basophils # (0-0.4) Hypochromia Platelet Estimate (NORMAL) RBC Morphology Microcytosis Sodium (137-145) mmol/L Potassium (3.5-5.1) mmol/L Chloride (98-107) mmol/L Carbon Dioxide (22-30) mmol/L Anion Gap (5-15) MEQ/L BUN (7-17) mg/dL Creatinine (0.52-1.04) mg/dL Estimated GFR ML/MIN Glucose (74-106) mg/dL Lactic Acid (0.4-2.0) Calcium (8.4-10.2) mg/dL Total Bilirubin (0.2-1.3) mg/dL AST (14-36) U/L ALT (0-35) U/L Alkaline Phosphatase (38-126) U/L Troponin I (0.000-0.034) ng/mL NT-Pro-B Natriuret Pep (0-900) pg/mL Serum Total Protein (6.3-8.2) g/dL Albumin (3.5-5.0) g/dL Urine Color (YELLOW) Urine Appearance (CLEAR) Urine pH (5-6) Ur Specific Junction (1.005-1.025) Urine Protein (Negative) Urine Ketones (NEGATIVE) Urine Blood (0-5) Erasto/ul Urine Nitrite (NEGATIVE) Urine Bilirubin (NEGATIVE) Urine Urobilinogen (0-1) mg/dL Ur Leukocyte Esterase (NEGATIVE) Urine WBC (Auto) (0-5) /HPF Urine RBC (Auto) (0-2) /HPF U Epithel Cells (Auto) (FEW) /HPF Urine Bacteria (Auto) (NEGATIVE) /HPF Urine Mucus (Auto) (NEGATIVE) /HPF Urine Culture Reflexed (NO) Urine Glucose (NEGATIVE) mg/dL Monoscreen (Negative) Influenza Type A Ag (NEGATIVE) Influenza Type B Ag (NEGATIVE) SARS-CoV-2 (PCR) (NEGATIVE) Group A Strep Antibody (NEGATIVE) Slides for Path Review ABO Group A Rh Factor POSITIVE Antibody Screen NEGATIVE (NEGATIVE) Crossmatch COMPATIBLE COMPATIBLE COMPATIBLE (COMPATIBLE) 12/23/20 12/23/20 12/23/20 Range/Units 16:45 17:52 19:00 WBC (4.0-10.5) K/mm3 RBC (4.1-5.4) M/mm3 Hgb (12.0-16.0) gm/dl Hct (35-47) % MCV (78-100) fl MCH (26-32) pg MCHC (32-36) g/dl RDW (11.5-14.0) % Plt Count (150-450) K/mm3 MPV (7.5-11.0) fl Gran % (36.0-66.0) % Eos # (Auto) (0-0.5) Absolute Lymphs (auto) (1.0-4.6) Absolute Monos (auto) (0.0-1.3) Lymphocytes % (24.0-44.0) % Monocytes % (0.0-12.0) % Eosinophils % (0.00-5.0) % Basophils % (0.0-0.4) % Absolute Granulocytes (1.4-6.9) Segmented Neutrophils (36.0-66.0) % Lymphocytes (Manual) (24-44) % Monocytes (Manual) (0.0-12.0) % Basophils # (0-0.4) Hypochromia Platelet Estimate (NORMAL) RBC Morphology Microcytosis Sodium (137-145) mmol/L Potassium (3.5-5.1) mmol/L Chloride (98-107) mmol/L Carbon Dioxide (22-30) mmol/L Anion Gap (5-15) MEQ/L BUN (7-17) mg/dL Creatinine (0.52-1.04) mg/dL Estimated GFR ML/MIN Glucose (74-106) mg/dL Lactic Acid 3.4 H (0.4-2.0) Calcium (8.4-10.2) mg/dL Total Bilirubin (0.2-1.3) mg/dL AST (14-36) U/L ALT (0-35) U/L Alkaline Phosphatase (38-126) U/L Troponin I (0.000-0.034) ng/mL NT-Pro-B Natriuret Pep (0-900) pg/mL Serum Total Protein (6.3-8.2) g/dL Albumin (3.5-5.0) g/dL Urine Color (YELLOW) Urine Appearance (CLEAR) Urine pH (5-6) Ur Specific Junction (1.005-1.025) Urine Protein (Negative) Urine Ketones (NEGATIVE) Urine Blood (0-5) Erasto/ul Urine Nitrite (NEGATIVE) Urine Bilirubin (NEGATIVE) Urine Urobilinogen (0-1) mg/dL Ur Leukocyte Esterase (NEGATIVE) Urine WBC (Auto) (0-5) /HPF Urine RBC (Auto) (0-2) /HPF U Epithel Cells (Auto) (FEW) /HPF Urine Bacteria (Auto) (NEGATIVE) /HPF Urine Mucus (Auto) (NEGATIVE) /HPF Urine Culture Reflexed (NO) Urine Glucose (NEGATIVE) mg/dL Monoscreen NEGATIVE (Negative) Influenza Type A Ag (NEGATIVE) Influenza Type B Ag (NEGATIVE) SARS-CoV-2 (PCR) (NEGATIVE) Group A Strep Antibody (NEGATIVE) Slides for Path Review ABO Group Rh Factor Antibody Screen (NEGATIVE) Crossmatch COMPATIBLE (COMPATIBLE) 12/23/20 12/23/20 12/23/20 Range/Units 19:20 19:35 19:40 WBC (4.0-10.5) K/mm3 RBC (4.1-5.4) M/mm3 Hgb (12.0-16.0) gm/dl Hct (35-47) % MCV (78-100) fl MCH (26-32) pg MCHC (32-36) g/dl RDW (11.5-14.0) % Plt Count (150-450) K/mm3 MPV (7.5-11.0) fl Gran % (36.0-66.0) % Eos # (Auto) (0-0.5) Absolute Lymphs (auto) (1.0-4.6) Absolute Monos (auto) (0.0-1.3) Lymphocytes % (24.0-44.0) % Monocytes % (0.0-12.0) % Eosinophils % (0.00-5.0) % Basophils % (0.0-0.4) % Absolute Granulocytes (1.4-6.9) Segmented Neutrophils (36.0-66.0) % Lymphocytes (Manual) (24-44) % Monocytes (Manual) (0.0-12.0) % Basophils # (0-0.4) Hypochromia Platelet Estimate (NORMAL) RBC Morphology Microcytosis Sodium (137-145) mmol/L Potassium (3.5-5.1) mmol/L Chloride (98-107) mmol/L Carbon Dioxide (22-30) mmol/L Anion Gap (5-15) MEQ/L BUN (7-17) mg/dL Creatinine (0.52-1.04) mg/dL Estimated GFR ML/MIN Glucose (74-106) mg/dL Lactic Acid (0.4-2.0) Calcium (8.4-10.2) mg/dL Total Bilirubin (0.2-1.3) mg/dL AST (14-36) U/L ALT (0-35) U/L Alkaline Phosphatase (38-126) U/L Troponin I < 0.012 (0.000-0.034) ng/mL NT-Pro-B Natriuret Pep (0-900) pg/mL Serum Total Protein (6.3-8.2) g/dL Albumin (3.5-5.0) g/dL Urine Color (YELLOW) Urine Appearance (CLEAR) Urine pH (5-6) Ur Specific Junction (1.005-1.025) Urine Protein (Negative) Urine Ketones (NEGATIVE) Urine Blood (0-5) Erasto/ul Urine Nitrite (NEGATIVE) Urine Bilirubin (NEGATIVE) Urine Urobilinogen (0-1) mg/dL Ur Leukocyte Esterase (NEGATIVE) Urine WBC (Auto) (0-5) /HPF Urine RBC (Auto) (0-2) /HPF U Epithel Cells (Auto) (FEW) /HPF Urine Bacteria (Auto) (NEGATIVE) /HPF Urine Mucus (Auto) (NEGATIVE) /HPF Urine Culture Reflexed (NO) Urine Glucose (NEGATIVE) mg/dL Monoscreen (Negative) Influenza Type A Ag (NEGATIVE) Influenza Type B Ag (NEGATIVE) SARS-CoV-2 (PCR) NEGATIVE (NEGATIVE) Group A Strep Antibody NOT DETECTED (NEGATIVE) Slides for Path Review ABO Group Rh Factor Antibody Screen (NEGATIVE) Crossmatch (COMPATIBLE) 12/23/20 12/23/20 12/23/20 Range/Units 19:46 20:19 22:30 WBC (4.0-10.5) K/mm3 RBC (4.1-5.4) M/mm3 Hgb (12.0-16.0) gm/dl Hct (35-47) % MCV (78-100) fl MCH (26-32) pg MCHC (32-36) g/dl RDW (11.5-14.0) % Plt Count (150-450) K/mm3 MPV (7.5-11.0) fl Gran % (36.0-66.0) % Eos # (Auto) (0-0.5) Absolute Lymphs (auto) (1.0-4.6) Absolute Monos (auto) (0.0-1.3) Lymphocytes % (24.0-44.0) % Monocytes % (0.0-12.0) % Eosinophils % (0.00-5.0) % Basophils % (0.0-0.4) % Absolute Granulocytes (1.4-6.9) Segmented Neutrophils (36.0-66.0) % Lymphocytes (Manual) (24-44) % Monocytes (Manual) (0.0-12.0) % Basophils # (0-0.4) Hypochromia Platelet Estimate (NORMAL) RBC Morphology Microcytosis Sodium (137-145) mmol/L Potassium (3.5-5.1) mmol/L Chloride (98-107) mmol/L Carbon Dioxide (22-30) mmol/L Anion Gap (5-15) MEQ/L BUN (7-17) mg/dL Creatinine (0.52-1.04) mg/dL Estimated GFR ML/MIN Glucose (74-106) mg/dL Lactic Acid (0.4-2.0) Calcium (8.4-10.2) mg/dL Total Bilirubin (0.2-1.3) mg/dL AST (14-36) U/L ALT (0-35) U/L Alkaline Phosphatase (38-126) U/L Troponin I < 0.012 (0.000-0.034) ng/mL NT-Pro-B Natriuret Pep (0-900) pg/mL Serum Total Protein (6.3-8.2) g/dL Albumin (3.5-5.0) g/dL Urine Color YELLOW (YELLOW) Urine Appearance SLIGHTLY CLOUDY (CLEAR) Urine pH 7.0 (5-6) Ur Specific Junction 1.011 (1.005-1.025) Urine Protein NEGATIVE (Negative) Urine Ketones NEGATIVE (NEGATIVE) Urine Blood NEGATIVE (0-5) Erasto/ul Urine Nitrite NEGATIVE (NEGATIVE) Urine Bilirubin NEGATIVE (NEGATIVE) Urine Urobilinogen NEGATIVE (0-1) mg/dL Ur Leukocyte Esterase NEGATIVE (NEGATIVE) Urine WBC (Auto) 0-2 (0-5) /HPF Urine RBC (Auto) NONE (0-2) /HPF U Epithel Cells (Auto) NONE (FEW) /HPF Urine Bacteria (Auto) NONE (NEGATIVE) /HPF Urine Mucus (Auto) SLIGHT (NEGATIVE) /HPF Urine Culture Reflexed NO (NO) Urine Glucose NEGATIVE (NEGATIVE) mg/dL Monoscreen (Negative) Influenza Type A Ag NEGATIVE (NEGATIVE) Influenza Type B Ag NEGATIVE (NEGATIVE) SARS-CoV-2 (PCR) (NEGATIVE) Group A Strep Antibody (NEGATIVE) Slides for Path Review ABO Group Rh Factor Antibody Screen (NEGATIVE) Crossmatch (COMPATIBLE) 12/24/20 12/24/20 12/24/20 Range/Units 02:00 04:50 04:50 WBC 11.4 H (4.0-10.5) K/mm3 RBC 3.20 L (4.1-5.4) M/mm3 Hgb 7.0 L D (12.0-16.0) gm/dl Hct 24.7 L (35-47) % MCV 77.2 L (78-100) fl MCH 21.9 L (26-32) pg MCHC 28.3 L (32-36) g/dl RDW 20.4 H (11.5-14.0) % Plt Count 328 (150-450) K/mm3 MPV 9.9 (7.5-11.0) fl Gran % 80.6 H (36.0-66.0) % Eos # (Auto) 0.08 (0-0.5) Absolute Lymphs (auto) 1.15 (1.0-4.6) Absolute Monos (auto) 0.96 (0.0-1.3) Lymphocytes % 10.1 L (24.0-44.0) % Monocytes % 8.4 (0.0-12.0) % Eosinophils % 0.7 (0.00-5.0) % Basophils % 0.2 (0.0-0.4) % Absolute Granulocytes 9.20 H (1.4-6.9) Segmented Neutrophils (36.0-66.0) % Lymphocytes (Manual) (24-44) % Monocytes (Manual) (0.0-12.0) % Basophils # 0.02 (0-0.4) Hypochromia Platelet Estimate (NORMAL) RBC Morphology Microcytosis Sodium (137-145) mmol/L Potassium (3.5-5.1) mmol/L Chloride (98-107) mmol/L Carbon Dioxide (22-30) mmol/L Anion Gap (5-15) MEQ/L BUN (7-17) mg/dL Creatinine (0.52-1.04) mg/dL Estimated GFR ML/MIN Glucose (74-106) mg/dL Lactic Acid (0.4-2.0) Calcium (8.4-10.2) mg/dL Total Bilirubin (0.2-1.3) mg/dL AST (14-36) U/L ALT (0-35) U/L Alkaline Phosphatase (38-126) U/L Troponin I < 0.012 < 0.012 (0.000-0.034) ng/mL NT-Pro-B Natriuret Pep (0-900) pg/mL Serum Total Protein (6.3-8.2) g/dL Albumin (3.5-5.0) g/dL Urine Color (YELLOW) Urine Appearance (CLEAR) Urine pH (5-6) Ur Specific Junction (1.005-1.025) Urine Protein (Negative) Urine Ketones (NEGATIVE) Urine Blood (0-5) Erasto/ul Urine Nitrite (NEGATIVE) Urine Bilirubin (NEGATIVE) Urine Urobilinogen (0-1) mg/dL Ur Leukocyte Esterase (NEGATIVE) Urine WBC (Auto) (0-5) /HPF Urine RBC (Auto) (0-2) /HPF U Epithel Cells (Auto) (FEW) /HPF Urine Bacteria (Auto) (NEGATIVE) /HPF Urine Mucus (Auto) (NEGATIVE) /HPF Urine Culture Reflexed (NO) Urine Glucose (NEGATIVE) mg/dL Monoscreen (Negative) Influenza Type A Ag (NEGATIVE) Influenza Type B Ag (NEGATIVE) SARS-CoV-2 (PCR) (NEGATIVE) Group A Strep Antibody (NEGATIVE) Slides for Path Review YES ABO Group Rh Factor Antibody Screen (NEGATIVE) Crossmatch (COMPATIBLE) 12/24/20 12/24/20 12/24/20 Range/Units 04:50 13:20 13:45 WBC (4.0-10.5) K/mm3 RBC (4.1-5.4) M/mm3 Hgb 9.5 L D (12.0-16.0) gm/dl Hct 31.6 L (35-47) % MCV (78-100) fl MCH (26-32) pg MCHC (32-36) g/dl RDW (11.5-14.0) % Plt Count (150-450) K/mm3 MPV (7.5-11.0) fl Gran % (36.0-66.0) % Eos # (Auto) (0-0.5) Absolute Lymphs (auto) (1.0-4.6) Absolute Monos (auto) (0.0-1.3) Lymphocytes % (24.0-44.0) % Monocytes % (0.0-12.0) % Eosinophils % (0.00-5.0) % Basophils % (0.0-0.4) % Absolute Granulocytes (1.4-6.9) Segmented Neutrophils (36.0-66.0) % Lymphocytes (Manual) (24-44) % Monocytes (Manual) (0.0-12.0) % Basophils # (0-0.4) Hypochromia Platelet Estimate (NORMAL) RBC Morphology Microcytosis Sodium 141 (137-145) mmol/L Potassium 3.1 L 4.1 D (3.5-5.1) mmol/L Chloride 102 (98-107) mmol/L Carbon Dioxide 32 H (22-30) mmol/L Anion Gap 9.0 (5-15) MEQ/L BUN 11 (7-17) mg/dL Creatinine 0.81 (0.52-1.04) mg/dL Estimated GFR > 60.0 ML/MIN Glucose 163 H (74-106) mg/dL Lactic Acid (0.4-2.0) Calcium 8.2 L (8.4-10.2) mg/dL Total Bilirubin 0.30 (0.2-1.3) mg/dL AST 25 (14-36) U/L ALT 12 (0-35) U/L Alkaline Phosphatase 48 (38-126) U/L Troponin I (0.000-0.034) ng/mL NT-Pro-B Natriuret Pep (0-900) pg/mL Serum Total Protein 6.1 L (6.3-8.2) g/dL Albumin 3.5 (3.5-5.0) g/dL Urine Color (YELLOW) Urine Appearance (CLEAR) Urine pH (5-6) Ur Specific Junction (1.005-1.025) Urine Protein (Negative) Urine Ketones (NEGATIVE) Urine Blood (0-5) Erasto/ul Urine Nitrite (NEGATIVE) Urine Bilirubin (NEGATIVE) Urine Urobilinogen (0-1) mg/dL Ur Leukocyte Esterase (NEGATIVE) Urine WBC (Auto) (0-5) /HPF Urine RBC (Auto) (0-2) /HPF U Epithel Cells (Auto) (FEW) /HPF Urine Bacteria (Auto) (NEGATIVE) /HPF Urine Mucus (Auto) (NEGATIVE) /HPF Urine Culture Reflexed (NO) Urine Glucose (NEGATIVE) mg/dL Monoscreen (Negative) Influenza Type A Ag (NEGATIVE) Influenza Type B Ag (NEGATIVE) SARS-CoV-2 (PCR) (NEGATIVE) Group A Strep Antibody (NEGATIVE) Slides for Path Review ABO Group Rh Factor Antibody Screen (NEGATIVE) Crossmatch (COMPATIBLE) - Radiology Impressions Radiology Exams & Impressions: Radiology Procedures Category Date Time Status CHEST 1 VIEW (PORTABLE) Stat Exams 12/23/20 16:40 Completed Assessment/Plan (1) Symptomatic anemia Status: Acute Assessment & Plan: Chief Complaint Diagnosis symptomatic anemia, leukocytosis, lactic acidemia Allergies Allergy/AdvReac Type Severity Reaction Status Date / Time morphine Allergy Severe Fainting Verified 12/23/20 16:55 oxycodone Allergy Shortness Verified 12/23/20 16:55 of Breath Penicillins Allergy Verified 12/23/20 16:55 oxymorphone AdvReac Severe Fainting Verified 12/23/20 16:55 [place] AdvReac Intermediate Headache Verified 12/23/20 16:55 bupropion HCl AdvReac Mild Hives Verified 12/23/20 16:55 [From Wellbutrin] Vital Signs (Last 24 hours) Temp Pulse Resp BP Pulse Ox 12/24/20 15:01 107 H 24 97 12/24/20 12:00 97.7 F 94 H 31 H 172/90 99 12/24/20 10:55 88 22 97 12/24/20 08:00 97.8 F 82 21 141/71 99 12/24/20 05:51 85 20 95 12/24/20 04:00 97.1 F 88 24 140/71 100 12/24/20 03:07 88 18 98 12/23/20 23:41 94 H 16 94 L 12/23/20 22:40 99.4 F 98 H 16 141/65 99 12/23/20 22:29 99.4 F 98 H 16 144/65 99 12/23/20 22:00 90 18 126/81 100 12/23/20 21:30 94 H 18 100 12/23/20 21:00 92 H 18 131/79 100 12/23/20 20:50 3 L 12/23/20 20:00 93 H 20 144/75 100 12/23/20 19:00 100 H 20 156/68 99 12/23/20 18:05 99 H 34 H 128/54 100 Home Medications Medication Instructions Recorded Confirmed Last Taken Type Theophylline Anhydrous 300 mg PO DAILY 12/23/20 12/23/20 12/23/20 10:00 History Furosemide [Lasix] 20 mg PO DAILY #30 tablet 12/24/20 Unknown Rx Current Medications Discontinued Medications Generic Name Dose Route Start Last Admin Trade Name Freq PRN Reason Stop Dose Admin Acetaminophen 650 mg 10/25/21 22:15 12/24/20 14:57 Acetaminophen 325 Mg Tablet PO 01/22/21 22:14 650 mg Q4H PRN PRN Administration PAIN, FEVER, HEADACHE Albuterol Sulfate 4 puff 12/23/20 23:34 Albuterol Common Canister Inhaler 01/22/21 23:33 Q4H PRN PRN SHORTNESS OF BREATH/WHEEZING Albuterol/Ipratropium 3 ml 12/23/20 21:28 12/23/20 21:29 Ipratropium/Albuterol Sulfate 3 Ml Ampul.Neb IH 12/23/20 21:29 3 ml STAT ONE Administration Albuterol/Ipratropium Confirm 12/23/20 21:27 Ipratropium/Albuterol Sulfate 3 Ml Ampul.Neb Administered 12/23/20 21:28 Dose 3 ml IH .STK-MED ONE Albuterol/Ipratropium 3 ml 12/24/20 03:00 12/24/20 15:01 Ipratropium/Albuterol Sulfate 3 Ml Ampul.Neb 01/23/21 02:59 3 ml Q4HRT VALERY Administration Clonazepam 2 mg 12/23/20 23:23 12/24/20 00:20 Clonazepam 0.5 Mg Tablet PO 01/22/21 23:22 2 mg BID VALERY Administration Clonazepam 2 mg 12/24/20 10:00 12/24/20 09:19 Clonazepam 2 Mg Tablet PO 01/23/21 09:59 2 mg BID VALERY Administration Famotidine 40 mg 12/23/20 23:25 12/24/20 09:20 Famotidine 20 Mg Tablet PO 01/22/21 23:24 40 mg BID VALERY Administration Furosemide 40 mg 12/23/20 21:13 12/23/20 21:16 Furosemide 40 Mg/4 Ml Vial IV 12/23/20 21:14 40 mg STAT ONE Administration Furosemide Confirm 12/23/20 21:15 Furosemide 40 Mg/4 Ml Vial Administered 12/23/20 21:16 Dose 40 mg .ROUTE .STK-MED ONE Furosemide 20 mg 12/23/20 22:45 12/24/20 02:50 Furosemide 20 Mg/Vial IV 12/24/20 16:00 20 mg UD VALERY Administration Furosemide 20 mg 12/24/20 12:32 12/24/20 12:44 Furosemide 20 Mg/Vial IV 12/24/20 20:00 20 mg AFTER LAST UNIT VALERY Administration Gabapentin 2,400 mg 12/23/20 23:27 12/24/20 00:20 Gabapentin 300 Mg Capsule PO 01/22/21 23:26 2,400 mg HS VALERY Administration Gabapentin 2,400 mg 12/24/20 22:00 Gabapentin 400 Mg Capsule PO 01/23/21 21:59 HS VALERY Gabapentin 1,200 mg 12/24/20 10:00 12/24/20 09:19 Gabapentin 400 Mg Capsule PO 01/23/21 09:59 1,200 mg DAILY VALERY Administration Sodium Chloride Confirm 12/23/20 18:23 Sodium Chloride 0.9% 1000 Ml Administered 12/23/20 18:24 Dose 1,000 mls @ ud .ROUTE .STK-MED ONE Levofloxacin/Dextrose 500 mg in 100 mls @ 100 mls/hr 12/23/20 18:36 12/23/20 19:41 Levofloxacin 500mg/100ml D5w IV 12/23/20 19:35 Infused STAT STA Infusion Levofloxacin/Dextrose Confirm 12/23/20 18:40 Levofloxacin 500mg/100ml D5w Administered 12/23/20 18:41 Dose 500 mg in 100 mls @ ud IV .STK-MED ONE Sodium Chloride 1,000 mls @ 999 mls/hr 12/23/20 18:51 12/23/20 18:54 Sodium Chloride 0.9% 1000 Ml IV 12/23/20 19:51 999 mls/hr .Q1H1M STA Administration Sodium Chloride 1,000 mls @ 100 mls/hr 12/23/20 22:15 12/23/20 23:46 Sodium Chloride 0.9% 1000 Ml IV 01/22/21 22:14 100 mls/hr .Q10H VALERY Administration Levofloxacin/Dextrose 500 mg in 100 mls @ 100 mls/hr 12/24/20 10:00 12/24/20 09:22 Levofloxacin 500mg/100ml D5w IV 01/23/21 09:59 100 mls/hr Q24H10 VALERY Administration Isosorbide Mononitrate 30 mg 12/24/20 10:00 12/24/20 09:20 Isosorbide Mononitrate 30 Mg Tab PO 01/23/21 09:59 30 mg DAILY VALERY Administration Levothyroxine Sodium 25 mcg 12/24/20 10:00 12/24/20 09:20 Levothyroxine Sodium 25 Mcg Tablet PO 01/23/21 09:59 25 mcg DAILY VALERY Administration Multivitamins Therapeutic 1 tab 12/24/20 10:00 12/24/20 09:20 Multivitamins,Therapeutic 1 Tab Tab PO 01/23/21 09:59 1 tab DAILY VALERY Administration Nitroglycerin 0.4 mg 12/24/20 07:43 Nitroglycerin 0.4 Mg Tablet Bottle SL 01/23/21 07:42 UD PRN CHEST PAIN Ondansetron HCl 4 mg 12/23/20 22:15 Ondansetron Hcl 4 Mg/2 Ml Vial IV 01/22/21 22:14 Q6H PRN PRN NAUSEA/VOMITING Quetiapine Fumarate 300 mg 12/23/20 23:32 12/24/20 00:20 Quetiapine Fumarate 100 Mg Tablet PO 01/22/21 23:31 300 mg HS VALERY Administration Quetiapine Fumarate 200 mg 12/24/20 13:00 12/24/20 14:42 Quetiapine Fumarate 100 Mg Tablet PO 01/23/21 12:59 200 mg QAM VALERY Administration Fluticasone/Salmeterol 2 puff 12/24/20 08:00 Fluticasone/Salmeterol - 120 Puff Common Canister IH 01/23/21 07:59 BIDRT VALERY Sertraline HCl 200 mg 12/24/20 13:00 12/24/20 14:39 Sertraline Hcl 50 Mg Tab PO 01/23/21 12:59 200 mg DAILY VALERY Administration Theophylline 300 mg 12/24/20 13:00 12/24/20 14:41 Theophylline Anhydrous 400 Mg Tab.Er.24hr Tablet PO 01/23/21 12:59 300 mg DAILY VALERY Administration Tizanidine HCl 4 mg 12/23/20 23:33 12/24/20 14:57 Tizanidine Hcl 4 Mg Tablet PO 01/22/21 23:32 4 mg TID VALERY Administration Intake & Output (Last 24 hours) 12/22/20 12/23/20 12/24/20 12/25/20 11:59 11:59 11:59 11:59 Intake Total 694 480 Output Total 1500 500 Balance -806 -20 Weight 73.2 kg Microbiology Results (Last 24 hours) 12/23/20 16:45 Blood Blood Culture Gram Stain - Pending 12/23/20 16:45 Blood Blood Culture - Pending Laboratory Results (Last 24 hours) 12/24/20 12/24/20 12/24/20 13:45 13:20 04:50 WBC RBC Hgb 9.5 L D Hct 31.6 L MCV MCH MCHC RDW Plt Count MPV Gran % Eos # (Auto) Absolute Lymphs (auto) Absolute Monos (auto) Lymphocytes % Monocytes % Eosinophils % Basophils % Absolute Granulocytes Segmented Neutrophils Lymphocytes (Manual) Monocytes (Manual) Basophils # Hypochromia Platelet Estimate RBC Morphology Microcytosis Sodium 141 Potassium 4.1 D 3.1 L Chloride 102 Carbon Dioxide 32 H Anion Gap 9.0 BUN 11 Creatinine 0.81 Estimated GFR > 60.0 Glucose 163 H Lactic Acid Calcium 8.2 L Total Bilirubin 0.30 AST 25 ALT 12 Alkaline Phosphatase 48 Troponin I NT-Pro-B Natriuret Pep Serum Total Protein 6.1 L Albumin 3.5 Urine Color Urine Appearance Urine pH Ur Specific Junction Urine Protein Urine Ketones Urine Blood Urine Nitrite Urine Bilirubin Urine Urobilinogen Ur Leukocyte Esterase Urine WBC (Auto) Urine RBC (Auto) U Epithel Cells (Auto) Urine Bacteria (Auto) Urine Mucus (Auto) Urine Culture Reflexed Urine Glucose Monoscreen Influenza Type A Ag Influenza Type B Ag SARS-CoV-2 (PCR) Group A Strep Antibody Slides for Path Review ABO Group Rh Factor Antibody Screen Crossmatch 12/24/20 12/24/20 12/24/20 04:50 04:50 02:00 WBC 11.4 H RBC 3.20 L Hgb 7.0 L D Hct 24.7 L MCV 77.2 L MCH 21.9 L MCHC 28.3 L RDW 20.4 H Plt Count 328 MPV 9.9 Gran % 80.6 H Eos # (Auto) 0.08 Absolute Lymphs (auto) 1.15 Absolute Monos (auto) 0.96 Lymphocytes % 10.1 L Monocytes % 8.4 Eosinophils % 0.7 Basophils % 0.2 Absolute Granulocytes 9.20 H Segmented Neutrophils Lymphocytes (Manual) Monocytes (Manual) Basophils # 0.02 Hypochromia Platelet Estimate RBC Morphology Microcytosis Sodium Potassium Chloride Carbon Dioxide Anion Gap BUN Creatinine Estimated GFR Glucose Lactic Acid Calcium Total Bilirubin AST ALT Alkaline Phosphatase Troponin I < 0.012 < 0.012 NT-Pro-B Natriuret Pep Serum Total Protein Albumin Urine Color Urine Appearance Urine pH Ur Specific Junction Urine Protein Urine Ketones Urine Blood Urine Nitrite Urine Bilirubin Urine Urobilinogen Ur Leukocyte Esterase Urine WBC (Auto) Urine RBC (Auto) U Epithel Cells (Auto) Urine Bacteria (Auto) Urine Mucus (Auto) Urine Culture Reflexed Urine Glucose Monoscreen Influenza Type A Ag Influenza Type B Ag SARS-CoV-2 (PCR) Group A Strep Antibody Slides for Path Review YES ABO Group Rh Factor Antibody Screen Crossmatch 12/23/20 12/23/20 12/23/20 22:30 20:19 19:46 WBC RBC Hgb Hct MCV MCH MCHC RDW Plt Count MPV Gran % Eos # (Auto) Absolute Lymphs (auto) Absolute Monos (auto) Lymphocytes % Monocytes % Eosinophils % Basophils % Absolute Granulocytes Segmented Neutrophils Lymphocytes (Manual) Monocytes (Manual) Basophils # Hypochromia Platelet Estimate RBC Morphology Microcytosis Sodium Potassium Chloride Carbon Dioxide Anion Gap BUN Creatinine Estimated GFR Glucose Lactic Acid Calcium Total Bilirubin AST ALT Alkaline Phosphatase Troponin I < 0.012 NT-Pro-B Natriuret Pep Serum Total Protein Albumin Urine Color YELLOW Urine Appearance SLIGHTLY CLOUDY Urine pH 7.0 Ur Specific Junction 1.011 Urine Protein NEGATIVE Urine Ketones NEGATIVE Urine Blood NEGATIVE Urine Nitrite NEGATIVE Urine Bilirubin NEGATIVE Urine Urobilinogen NEGATIVE Ur Leukocyte Esterase NEGATIVE Urine WBC (Auto) 0-2 Urine RBC (Auto) NONE U Epithel Cells (Auto) NONE Urine Bacteria (Auto) NONE Urine Mucus (Auto) SLIGHT Urine Culture Reflexed NO Urine Glucose NEGATIVE Monoscreen Influenza Type A Ag NEGATIVE Influenza Type B Ag NEGATIVE SARS-CoV-2 (PCR) Group A Strep Antibody Slides for Path Review ABO Group Rh Factor Antibody Screen Crossmatch 12/23/20 12/23/20 12/23/20 19:40 19:35 19:20 WBC RBC Hgb Hct MCV MCH MCHC RDW Plt Count MPV Gran % Eos # (Auto) Absolute Lymphs (auto) Absolute Monos (auto) Lymphocytes % Monocytes % Eosinophils % Basophils % Absolute Granulocytes Segmented Neutrophils Lymphocytes (Manual) Monocytes (Manual) Basophils # Hypochromia Platelet Estimate RBC Morphology Microcytosis Sodium Potassium Chloride Carbon Dioxide Anion Gap BUN Creatinine Estimated GFR Glucose Lactic Acid Calcium Total Bilirubin AST ALT Alkaline Phosphatase Troponin I < 0.012 NT-Pro-B Natriuret Pep Serum Total Protein Albumin Urine Color Urine Appearance Urine pH Ur Specific Junction Urine Protein Urine Ketones Urine Blood Urine Nitrite Urine Bilirubin Urine Urobilinogen Ur Leukocyte Esterase Urine WBC (Auto) Urine RBC (Auto) U Epithel Cells (Auto) Urine Bacteria (Auto) Urine Mucus (Auto) Urine Culture Reflexed Urine Glucose Monoscreen Influenza Type A Ag Influenza Type B Ag SARS-CoV-2 (PCR) NEGATIVE Group A Strep Antibody NOT DETECTED Slides for Path Review ABO Group Rh Factor Antibody Screen Crossmatch 12/23/20 12/23/20 12/23/20 19:00 17:52 16:45 WBC RBC Hgb Hct MCV MCH MCHC RDW Plt Count MPV Gran % Eos # (Auto) Absolute Lymphs (auto) Absolute Monos (auto) Lymphocytes % Monocytes % Eosinophils % Basophils % Absolute Granulocytes Segmented Neutrophils Lymphocytes (Manual) Monocytes (Manual) Basophils # Hypochromia Platelet Estimate RBC Morphology Microcytosis Sodium Potassium Chloride Carbon Dioxide Anion Gap BUN Creatinine Estimated GFR Glucose Lactic Acid 3.4 H Calcium Total Bilirubin AST ALT Alkaline Phosphatase Troponin I NT-Pro-B Natriuret Pep Serum Total Protein Albumin Urine Color Urine Appearance Urine pH Ur Specific Junction Urine Protein Urine Ketones Urine Blood Urine Nitrite Urine Bilirubin Urine Urobilinogen Ur Leukocyte Esterase Urine WBC (Auto) Urine RBC (Auto) U Epithel Cells (Auto) Urine Bacteria (Auto) Urine Mucus (Auto) Urine Culture Reflexed Urine Glucose Monoscreen NEGATIVE Influenza Type A Ag Influenza Type B Ag SARS-CoV-2 (PCR) Group A Strep Antibody Slides for Path Review ABO Group Rh Factor Antibody Screen Crossmatch COMPATIBLE 12/23/20 12/23/20 12/23/20 16:45 16:45 16:45 WBC RBC Hgb Hct MCV MCH MCHC RDW Plt Count MPV Gran % Eos # (Auto) Absolute Lymphs (auto) Absolute Monos (auto) Lymphocytes % Monocytes % Eosinophils % Basophils % Absolute Granulocytes Segmented Neutrophils Lymphocytes (Manual) Monocytes (Manual) Basophils # Hypochromia Platelet Estimate RBC Morphology Microcytosis Sodium Potassium Chloride Carbon Dioxide Anion Gap BUN Creatinine Estimated GFR Glucose Lactic Acid Calcium Total Bilirubin AST ALT Alkaline Phosphatase Troponin I NT-Pro-B Natriuret Pep Serum Total Protein Albumin Urine Color Urine Appearance Urine pH Ur Specific Junction Urine Protein Urine Ketones Urine Blood Urine Nitrite Urine Bilirubin Urine Urobilinogen Ur Leukocyte Esterase Urine WBC (Auto) Urine RBC (Auto) U Epithel Cells (Auto) Urine Bacteria (Auto) Urine Mucus (Auto) Urine Culture Reflexed Urine Glucose Monoscreen Influenza Type A Ag Influenza Type B Ag SARS-CoV-2 (PCR) Group A Strep Antibody Slides for Path Review ABO Group A Rh Factor POSITIVE Antibody Screen NEGATIVE Crossmatch COMPATIBLE COMPATIBLE COMPATIBLE 12/23/20 12/23/20 12/23/20 16:45 16:45 16:40 WBC RBC Hgb Hct MCV MCH MCHC RDW Plt Count MPV Gran % Eos # (Auto) Absolute Lymphs (auto) Absolute Monos (auto) Lymphocytes % Monocytes % Eosinophils % Basophils % Absolute Granulocytes Segmented Neutrophils 90 H Lymphocytes (Manual) 9 L Monocytes (Manual) 1 Basophils # Hypochromia 2+ Platelet Estimate NORMAL RBC Morphology ABNORMAL Microcytosis 2+ Sodium 138 Potassium 3.4 L Chloride 100 Carbon Dioxide 29 Anion Gap 12.1 BUN 15 Creatinine 0.62 Estimated GFR > 60.0 Glucose 104 Lactic Acid Calcium 8.7 Total Bilirubin 0.30 AST 19 ALT 16 Alkaline Phosphatase 52 Troponin I < 0.012 NT-Pro-B Natriuret Pep 315 Serum Total Protein 6.7 Albumin 3.9 Urine Color Urine Appearance Urine pH Ur Specific Junction Urine Protein Urine Ketones Urine Blood Urine Nitrite Urine Bilirubin Urine Urobilinogen Ur Leukocyte Esterase Urine WBC (Auto) Urine RBC (Auto) U Epithel Cells (Auto) Urine Bacteria (Auto) Urine Mucus (Auto) Urine Culture Reflexed Urine Glucose Monoscreen Influenza Type A Ag Influenza Type B Ag SARS-CoV-2 (PCR) Group A Strep Antibody Slides for Path Review ABO Group Rh Factor Antibody Screen Crossmatch Orders (Last 24 hours) Category Date Time Status Bedrest TOLERATED Activity 12/23/20 22:15 Completed Admit as Inpatient ROUTINE Care 12/23/20 22:15 Completed Code Status Order ROUTINE Care 12/23/20 22:15 Completed H&H 1 Hr Post Transfusion 1 HR POST TRANSFUS Care 12/24/20 12:00 Completed IV Insertion-2nd Peripheral STAT Care 12/23/20 16:52 Completed Miscellaneous Nursing Order ROUTINE Care 12/23/20 22:37 Completed Miscellaneous Nursing Order ROUTINE Care 12/23/20 22:39 Completed Oxygen-ED Only Nasal Cannula 3 lpm Care 12/23/20 16:[address] in Observation ROUTINE Care 12/23/20 22:11 Completed Telemetry Q6H Care 12/23/20 22:15 Completed Weight,Daily 0600 Care 12/23/20 22:15 Completed Broadcast Systems Engineer/Discharge Plan ROUTINE Cons 12/23/20 23:01 Completed Discharge Planning,Consult Routine Discharge 12/24/20 Active Discharge Routine Discharge 12/24/20 Ordered Discharge/Telephone Order Routine Discharge 12/24/20 Active CBC W DIFF AM.LAB Lab 12/24/20 04:50 Completed CMP AM.LAB Lab 12/24/20 04:50 Completed Group A Strep Stat Lab 12/23/20 19:40 Completed HEMOGLOBIN AND HEMATOCRIT Urgent Lab 12/24/20 13:45 Completed INFLUENZA A+B NIMO Stat Lab 12/23/20 19:46 Completed Lactic Acid Stat Lab 12/23/20 17:52 Completed Jack Screen Stat Lab 12/23/20 19:00 Completed Potassium (Lab Test) [Potassium] Urgent Lab 12/24/20 13:20 Completed TROPONIN Q3H Lab 12/23/20 19:35 Completed TROPONIN Q3H Lab 12/23/20 22:30 Completed TROPONIN Q3H Lab 12/24/20 02:00 Completed TROPONIN Q3H Lab 12/24/20 04:50 Completed UA W/RFX UR CULTURE Stat Lab 12/23/20 20:19 Completed Acetaminophen 325 mg [Tylenol 325 mg] Med 12/23/20 22:15 Discontinued 650 mg PO Q4H PRN PRN Albuterol Common Canister [Ventolin Common Canister* Med 12/23/20 23:34 Discontinued ] 4 puff IH Q4H PRN PRN Albuterol/Ipratropium 3ml Neb* [DUONEB 0.5-3 MG/3 ml Med 12/23/20 21:27 Discontinued Neb] 3 ml IH .STK-MED ONE Albuterol/Ipratropium 3ml Neb* [DUONEB 0.5-3 MG/3 ml Med 12/24/20 03:00 Discontinued Neb] 3 ml IH Q4HRT Albuterol/Ipratropium 3ml Neb* [DUONEB 0.5-3 MG/3 ml Med 12/23/20 21:28 Discontinued Neb] 3 ml IH STAT ONE Clonazepam [Klonopin] Med 12/24/20 10:00 Discontinued 2 mg PO BID Famotidine 20 mg [Pepcid 20 MG] Med 12/23/20 23:25 Discontinued 40 mg PO BID Fluticasone/Salmeterol [Advair Hfa Common Med 12/24/20 08:00 Discontinued canister*] 2 puff IH BIDRT Furosemide 20 mg/2 ml [Lasix 20 MG/2 ML] Med 12/24/20 12:32 Discontinued 20 mg IV AFTER LAST UNIT Furosemide 20 mg/2 ml [Lasix 20 MG/2 ML] Med 12/23/20 22:45 Discontinued 20 mg IV UD Furosemide 40 mg/4 ml [Lasix 40 MG/4 ML] Med 12/23/20 21:15 Discontinued 40 mg .ROUTE .STK-MED ONE Furosemide 40 mg/4 ml [Lasix 40 MG/4 ML] Med 12/23/20 21:13 Discontinued 40 mg IV STAT ONE Gabapentin 300 mg [Neurontin 300 mg] Med 12/23/20 23:27 Discontinued 2,400 mg PO HS Gabapentin 400 mg [Neurontin 400 MG] Med 12/24/20 10:00 Discontinued 1,200 mg PO DAILY Gabapentin 400 mg [Neurontin 400 MG] Med 12/24/20 22:00 Discontinued 2,400 mg PO HS Isosorbide Mononitrate 30 mg [Imdur 30 MG] Med 12/24/20 10:00 Discontinued 30 mg PO DAILY Levofloxacin [Levofloxacin 500MG/100ML D5W] Med 12/24/20 10:00 Discontinued 500 mg in 100 ml IV Q24H10 Levofloxacin [Levofloxacin 500MG/100ML D5W] Med 12/23/20 18:36 Discontinued 500 mg in 100 ml IV STAT Levofloxacin [Levofloxacin 500MG/100ML D5W] Med 12/23/20 18:40 Discontinued 500 mg in 100 ml IV UD Levothyroxine Sodium 25 Mcg [Synthroid 25 Mcg] Med 12/24/20 10:00 Discontinued 25 mcg PO DAILY Multivitamins,Therapeutic Tab* [Theragran Multivitamin* Med 12/24/20 10:00 Discontinued ] 1 tab PO DAILY NaCl 0.9% 1000 ml [Sodium Chloride 0.9% 1000 ML] 1,000 Med 12/23/20 18:23 Discontinued ml .ROUTE UD NaCl 0.9% 1000 ml [Sodium Chloride 0.9% 1000 ML] 1,000 Med 12/23/20 22:15 Discontinued ml IV 100 mls/hr NaCl 0.9% 1000 ml [Sodium Chloride 0.9% 1000 ML] 1,000 Med 12/23/20 18:51 Discontinued ml IV 999 mls/hr Nitroglycerin 0.4 mg Tablet [Nitrostat 0.4 MG Tablet Med 12/24/20 07:43 Discontinued ] 0.4 mg SL UD PRN Ondansetron HCl 4 mg/2 ml [Zofran 4 MG/2 ML VIAL] Med 12/23/20 22:15 Discontinued 4 mg IV Q6H PRN PRN Quetiapine Fumarate 100 mg [Seroquel 100 MG] Med 12/24/20 13:00 Discontinued 200 mg PO QAM Quetiapine Fumarate 100 mg [Seroquel 100 MG] Med 12/23/20 23:32 Disc ontinued 300 mg PO HS Sertraline HCl 50 mg [Zoloft 50 mg Tablet] Med 12/24/20 13:00 Discontinued 200 mg PO DAILY Theophylline Anhydrous [Theophylline ER 24Hr] Med 12/24/20 13:00 Discontinued 300 mg PO DAILY Tizanidine HCl 4 mg [Zanaflex 4 MG] Med 12/23/20 23:33 Discontinued 4 mg PO TID clonazePAM Med 12/23/20 23:23 Discontinued 2 mg PO BID Oxygen Nasal Cannula 3 lpm RT 12/23/20 22:15 Completed Pulse Oximetry .spot check RT 12/23/20 23:39 Completed RT Screen per Nursing Assess ONCE RT 12/23/20 23:01 Completed Respiratory Therapy Assessment DAILY RT 12/23/20 21:28 Completed Respiratory Therapy Consult ROUTINE RT 12/23/20 22:15 Completed Smoking Cessation Education ONCE RT 12/23/20 23:01 Completed Patient Care Notes (Last 24 hours) 12/24/20 12:33 Nursing Note by Lauryn Layton ROUNDED WITH DR. CAMERON. REPORTED PATIENT'S LUNG SOUNDS AND POTASSIUM LEVEL. STATED TO GIVE PATIENT ANOTHER DOSE OF LASIX, RECHECK POTASSIUM WITH H&H. MAKE SURE PATIENT HAS LASIX PO TO TAKE AT HOME AND FOLLOW UP IN OFFICE NEXT Initialized on 12/24/20 12:33 - END OF NOTE 12/24/20 07:27 Pharmacy Note by Juan Barker Please be aware of possible drug interaction with Levaquin and Seroquel. May prolong QT interval. Initialized on 12/24/20 07:27 - END OF NOTE 12/24/20 06:57 Nursing Note by Rina Snider This nurse contacted Dr. Cameron and notified him of patient's hgb 7.0 and hct 24.7. Order received to transfuse 2 units of PRBCs. Initialized on 12/24/20 06:57 - END OF NOTE 12/23/20 23:47 Nursing Note by Rina Snider Second PRBC transfusion started on 12/23/20 at 2345. Addendum entered by Rina Snider 12/24/20 06:56: Third PRBC transfusion started on 12/24/20 at 0650. 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 Code(s): D53.9 - NUTRITIONAL ANEMIA, UNSPECIFIED Hospital Summary - Vitals & Intake/Output Vital Signs: Vital Signs Temperature 97.7 F 12/24/20 12:00 Pulse Rate 107 H 12/24/20 15:01 Respiratory Rate 24 12/24/20 15:01 Blood Pressure 172/90 12/24/20 12:00 O2 Sat by Pulse Oximetry 97 12/24/20 15:01 Intake & Output: Intake & Output 12/22/20 12/23/20 12/24/20 12/25/20 11:59 11:59 11:59 11:59 Intake Total 694 480 Output Total 1500 500 Balance -806 -20 Weight 73.2 kg - Lab Result Diagrams: 12/24/20 13:45 12/24/20 13:20 Lab Results-Last 24 Hrs: Lab Results-Last 24 Hours 12/23/20 12/23/20 12/23/20 Range/Units 16:40 16:45 16:45 WBC (4.0-10.5) K/mm3 RBC (4.1-5.4) M/mm3 Hgb (12.0-16.0) gm/dl Hct (35-47) % MCV (78-100) fl MCH (26-32) pg MCHC (32-36) g/dl RDW (11.5-14.0) % Plt Count (150-450) K/mm3 MPV (7.5-11.0) fl Gran % (36.0-66.0) % Eos # (Auto) (0-0.5) Absolute Lymphs (auto) (1.0-4.6) Absolute Monos (auto) (0.0-1.3) Lymphocytes % (24.0-44.0) % Monocytes % (0.0-12.0) % Eosinophils % (0.00-5.0) % Basophils % (0.0-0.4) % Absolute Granulocytes (1.4-6.9) Segmented Neutrophils 90 H (36.0-66.0) % Lymphocytes (Manual) 9 L (24-44) % Monocytes (Manual) 1 (0.0-12.0) % Basophils # (0-0.4) Hypochromia 2+ Platelet Estimate NORMAL (NORMAL) RBC Morphology ABNORMAL Microcytosis 2+ Sodium 138 (137-145) mmol/L Potassium 3.4 L (3.5-5.1) mmol/L Chloride 100 (98-107) mmol/L Carbon Dioxide 29 (22-30) mmol/L Anion Gap 12.1 (5-15) MEQ/L BUN 15 (7-17) mg/dL Creatinine 0.62 (0.52-1.04) mg/dL Estimated GFR > 60.0 ML/MIN Glucose 104 (74-106) mg/dL Lactic Acid (0.4-2.0) Calcium 8.7 (8.4-10.2) mg/dL Total Bilirubin 0.30 (0.2-1.3) mg/dL AST 19 (14-36) U/L ALT 16 (0-35) U/L Alkaline Phosphatase 52 (38-126) U/L Troponin I < 0.012 (0.000-0.034) ng/mL NT-Pro-B Natriuret Pep 315 (0-900) pg/mL Serum Total Protein 6.7 (6.3-8.2) g/dL Albumin 3.9 (3.5-5.0) g/dL Urine Color (YELLOW) Urine Appearance (CLEAR) Urine pH (5-6) Ur Specific Junction (1.005-1.025) Urine Protein (Negative) Urine Ketones (NEGATIVE) Urine Blood (0-5) Erasto/ul Urine Nitrite (NEGATIVE) Urine Bilirubin (NEGATIVE) Urine Urobilinogen (0-1) mg/dL Ur Leukocyte Esterase (NEGATIVE) Urine WBC (Auto) (0-5) /HPF Urine RBC (Auto) (0-2) /HPF U Epithel Cells (Auto) (FEW) /HPF Urine Bacteria (Auto) (NEGATIVE) /HPF Urine Mucus (Auto) (NEGATIVE) /HPF Urine Culture Reflexed (NO) Urine Glucose (NEGATIVE) mg/dL Monoscreen (Negative) Influenza Type A Ag (NEGATIVE) Influenza Type B Ag (NEGATIVE) SARS-CoV-2 (PCR) (NEGATIVE) Group A Strep Antibody (NEGATIVE) Slides for Path Review ABO Group Rh Factor Antibody Screen (NEGATIVE) Crossmatch (COMPATIBLE) 12/23/20 12/23/20 12/23/20 Range/Units 16:45 16:45 16:45 WBC (4.0-10.5) K/mm3 RBC (4.1-5.4) M/mm3 Hgb (12.0-16.0) gm/dl Hct (35-47) % MCV (78-100) fl MCH (26-32) pg MCHC (32-36) g/dl RDW (11.5-14.0) % Plt Count (150-450) K/mm3 MPV (7.5-11.0) fl Gran % (36.0-66.0) % Eos # (Auto) (0-0.5) Absolute Lymphs (auto) (1.0-4.6) Absolute Monos (auto) (0.0-1.3) Lymphocytes % (24.0-44.0) % Monocytes % (0.0-12.0) % Eosinophils % (0.00-5.0) % Basophils % (0.0-0.4) % Absolute Granulocytes (1.4-6.9) Segmented Neutrophils (36.0-66.0) % Lymphocytes (Manual) (24-44) % Monocytes (Manual) (0.0-12.0) % Basophils # (0-0.4) Hypochromia Platelet Estimate (NORMAL) RBC Morphology Microcytosis Sodium (137-145) mmol/L Potassium (3.5-5.1) mmol/L Chloride (98-107) mmol/L Carbon Dioxide (22-30) mmol/L Anion Gap (5-15) MEQ/L BUN (7-17) mg/dL Creatinine (0.52-1.04) mg/dL Estimated GFR ML/MIN Glucose (74-106) mg/dL Lactic Acid (0.4-2.0) Calcium (8.4-10.2) mg/dL Total Bilirubin (0.2-1.3) mg/dL AST (14-36) U/L ALT (0-35) U/L Alkaline Phosphatase (38-126) U/L Troponin I (0.000-0.034) ng/mL NT-Pro-B Natriuret Pep (0-900) pg/mL Serum Total Protein (6.3-8.2) g/dL Albumin (3.5-5.0) g/dL Urine Color (YELLOW) Urine Appearance (CLEAR) Urine pH (5-6) Ur Specific Junction (1.005-1.025) Urine Protein (Negative) Urine Ketones (NEGATIVE) Urine Blood (0-5) Erasto/ul Urine Nitrite (NEGATIVE) Urine Bilirubin (NEGATIVE) Urine Urobilinogen (0-1) mg/dL Ur Leukocyte Esterase (NEGATIVE) Urine WBC (Auto) (0-5) /HPF Urine RBC (Auto) (0-2) /HPF U Epithel Cells (Auto) (FEW) /HPF Urine Bacteria (Auto) (NEGATIVE) /HPF Urine Mucus (Auto) (NEGATIVE) /HPF Urine Culture Reflexed (NO) Urine Glucose (NEGATIVE) mg/dL Monoscreen (Negative) Influenza Type A Ag (NEGATIVE) Influenza Type B Ag (NEGATIVE) SARS-CoV-2 (PCR) (NEGATIVE) Group A Strep Antibody (NEGATIVE) Slides for Path Review ABO Group A Rh Factor POSITIVE Antibody Screen NEGATIVE (NEGATIVE) Crossmatch COMPATIBLE COMPATIBLE COMPATIBLE (COMPATIBLE) 12/23/20 12/23/20 12/23/20 Range/Units 16:45 17:52 19:00 WBC (4.0-10.5) K/mm3 RBC (4.1-5.4) M/mm3 Hgb (12.0-16.0) gm/dl Hct (35-47) % MCV (78-100) fl MCH (26-32) pg MCHC (32-36) g/dl RDW (11.5-14.0) % Plt Count (150-450) K/mm3 MPV (7.5-11.0) fl Gran % (36.0-66.0) % Eos # (Auto) (0-0.5) Absolute Lymphs (auto) (1.0-4.6) Absolute Monos (auto) (0.0-1.3) Lymphocytes % (24.0-44.0) % Monocytes % (0.0-12.0) % Eosinophils % (0.00-5.0) % Basophils % (0.0-0.4) % Absolute Granulocytes (1.4-6.9) Segmented Neutrophils (36.0-66.0) % Lymphocytes (Manual) (24-44) % Monocytes (Manual) (0.0-12.0) % Basophils # (0-0.4) Hypochromia Platelet Estimate (NORMAL) RBC Morphology Microcytosis Sodium (137-145) mmol/L Potassium (3.5-5.1) mmol/L Chloride (98-107) mmol/L Carbon Dioxide (22-30) mmol/L Anion Gap (5-15) MEQ/L BUN (7-17) mg/dL Creatinine (0.52-1.04) mg/dL Estimated GFR ML/MIN Glucose (74-106) mg/dL Lactic Acid 3.4 H (0.4-2.0) Calcium (8.4-10.2) mg/dL Total Bilirubin (0.2-1.3) mg/dL AST (14-36) U/L ALT (0-35) U/L Alkaline Phosphatase (38-126) U/L Troponin I (0.000-0.034) ng/mL NT-Pro-B Natriuret Pep (0-900) pg/mL Serum Total Protein (6.3-8.2) g/dL Albumin (3.5-5.0) g/dL Urine Color (YELLOW) Urine Appearance (CLEAR) Urine pH (5-6) Ur Specific Junction (1.005-1.025) Urine Protein (Negative) Urine Ketones (NEGATIVE) Urine Blood (0-5) Erasto/ul Urine Nitrite (NEGATIVE) Urine Bilirubin (NEGATIVE) Urine Urobilinogen (0-1) mg/dL Ur Leukocyte Esterase (NEGATIVE) Urine WBC (Auto) (0-5) /HPF Urine RBC (Auto) (0-2) /HPF U Epithel Cells (Auto) (FEW) /HPF Urine Bacteria (Auto) (NEGATIVE) /HPF Urine Mucus (Auto) (NEGATIVE) /HPF Urine Culture Reflexed (NO) Urine Glucose (NEGATIVE) mg/dL Monoscreen NEGATIVE (Negative) Influenza Type A Ag (NEGATIVE) Influenza Type B Ag (NEGATIVE) SARS-CoV-2 (PCR) (NEGATIVE) Group A Strep Antibody (NEGATIVE) Slides for Path Review ABO Group Rh Factor Antibody Screen (NEGATIVE) Crossmatch COMPATIBLE (COMPATIBLE) 12/23/20 12/23/20 12/23/20 Range/Units 19:20 19:35 19:40 WBC (4.0-10.5) K/mm3 RBC (4.1-5.4) M/mm3 Hgb (12.0-16.0) gm/dl Hct (35-47) % MCV (78-100) fl MCH (26-32) pg MCHC (32-36) g/dl RDW (11.5-14.0) % Plt Count (150-450) K/mm3 MPV (7.5-11.0) fl Gran % (36.0-66.0) % Eos # (Auto) (0-0.5) Absolute Lymphs (auto) (1.0-4.6) Absolute Monos (auto) (0.0-1.3) Lymphocytes % (24.0-44.0) % Monocytes % (0.0-12.0) % Eosinophils % (0.00-5.0) % Basophils % (0.0-0.4) % Absolute Granulocytes (1.4-6.9) Segmented Neutrophils (36.0-66.0) % Lymphocytes (Manual) (24-44) % Monocytes (Manual) (0.0-12.0) % Basophils # (0-0.4) Hypochromia Platelet Estimate (NORMAL) RBC Morphology Microcytosis Sodium (137-145) mmol/L Potassium (3.5-5.1) mmol/L Chloride (98-107) mmol/L Carbon Dioxide (22-30) mmol/L Anion Gap (5-15) MEQ/L BUN (7-17) mg/dL Creatinine (0.52-1.04) mg/dL Estimated GFR ML/MIN Glucose (74-106) mg/dL Lactic Acid (0.4-2.0) Calcium (8.4-10.2) mg/dL Total Bilirubin (0.2-1.3) mg/dL AST (14-36) U/L ALT (0-35) U/L Alkaline Phosphatase (38-126) U/L Troponin I < 0.012 (0.000-0.034) ng/mL NT-Pro-B Natriuret Pep (0-900) pg/mL Serum Total Protein (6.3-8.2) g/dL Albumin (3.5-5.0) g/dL Urine Color (YELLOW) Urine Appearance (CLEAR) Urine pH (5-6) Ur Specific Junction (1.005-1.025) Urine Protein (Negative) Urine Ketones (NEGATIVE) Urine Blood (0-5) Erasto/ul Urine Nitrite (NEGATIVE) Urine Bilirubin (NEGATIVE) Urine Urobilinogen (0-1) mg/dL Ur Leukocyte Esterase (NEGATIVE) Urine WBC (Auto) (0-5) /HPF Urine RBC (Auto) (0-2) /HPF U Epithel Cells (Auto) (FEW) /HPF Urine Bacteria (Auto) (NEGATIVE) /HPF Urine Mucus (Auto) (NEGATIVE) /HPF Urine Culture Reflexed (NO) Urine Glucose (NEGATIVE) mg/dL Monoscreen (Negative) Influenza Type A Ag (NEGATIVE) Influenza Type B Ag (NEGATIVE) SARS-CoV-2 (PCR) NEGATIVE (NEGATIVE) Group A Strep Antibody NOT DETECTED (NEGATIVE) Slides for Path Review ABO Group Rh Factor Antibody Screen (NEGATIVE) Crossmatch (COMPATIBLE) 12/23/20 12/23/20 12/23/20 Range/Units 19:46 20:19 22:30 WBC (4.0-10.5) K/mm3 RBC (4.1-5.4) M/mm3 Hgb (12.0-16.0) gm/dl Hct (35-47) % MCV (78-100) fl MCH (26-32) pg MCHC (32-36) g/dl RDW (11.5-14.0) % Plt Count (150-450) K/mm3 MPV (7.5-11.0) fl Gran % (36.0-66.0) % Eos # (Auto) (0-0.5) Absolute Lymphs (auto) (1.0-4.6) Absolute Monos (auto) (0.0-1.3) Lymphocytes % (24.0-44.0) % Monocytes % (0.0-12.0) % Eosinophils % (0.00-5.0) % Basophils % (0.0-0.4) % Absolute Granulocytes (1.4-6.9) Segmented Neutrophils (36.0-66.0) % Lymphocytes (Manual) (24-44) % Monocytes (Manual) (0.0-12.0) % Basophils # (0-0.4) Hypochromia Platelet Estimate (NORMAL) RBC Morphology Microcytosis Sodium (137-145) mmol/L Potassium (3.5-5.1) mmol/L Chloride (98-107) mmol/L Carbon Dioxide (22-30) mmol/L Anion Gap (5-15) MEQ/L BUN (7-17) mg/dL Creatinine (0.52-1.04) mg/dL Estimated GFR ML/MIN Glucose (74-106) mg/dL Lactic Acid (0.4-2.0) Calcium (8.4-10.2) mg/dL Total Bilirubin (0.2-1.3) mg/dL AST (14-36) U/L ALT (0-35) U/L Alkaline Phosphatase (38-126) U/L Troponin I < 0.012 (0.000-0.034) ng/mL NT-Pro-B Natriuret Pep (0-900) pg/mL Serum Total Protein (6.3-8.2) g/dL Albumin (3.5-5.0) g/dL Urine Color YELLOW (YELLOW) Urine Appearance SLIGHTLY CLOUDY (CLEAR) Urine pH 7.0 (5-6) Ur Specific Junction 1.011 (1.005-1.025) Urine Protein NEGATIVE (Negative) Urine Ketones NEGATIVE (NEGATIVE) Urine Blood NEGATIVE (0-5) Erasto/ul Urine Nitrite NEGATIVE (NEGATIVE) Urine Bilirubin NEGATIVE (NEGATIVE) Urine Urobilinogen NEGATIVE (0-1) mg/dL Ur Leukocyte Esterase NEGATIVE (NEGATIVE) Urine WBC (Auto) 0-2 (0-5) /HPF Urine RBC (Auto) NONE (0-2) /HPF U Epithel Cells (Auto) NONE (FEW) /HPF Urine Bacteria (Auto) NONE (NEGATIVE) /HPF Urine Mucus (Auto) SLIGHT (NEGATIVE) /HPF Urine Culture Reflexed NO (NO) Urine Glucose NEGATIVE (NEGATIVE) mg/dL Monoscreen (Negative) Influenza Type A Ag NEGATIVE (NEGATIVE) Influenza Type B Ag NEGATIVE (NEGATIVE) SARS-CoV-2 (PCR) (NEGATIVE) Group A Strep Antibody (NEGATIVE) Slides for Path Review ABO Group Rh Factor Antibody Screen (NEGATIVE) Crossmatch (COMPATIBLE) 12/24/20 12/24/20 12/24/20 Range/Units 02:00 04:50 04:50 WBC 11.4 H (4.0-10.5) K/mm3 RBC 3.20 L (4.1-5.4) M/mm3 Hgb 7.0 L D (12.0-16.0) gm/dl Hct 24.7 L (35-47) % MCV 77.2 L (78-100) fl MCH 21.9 L (26-32) pg MCHC 28.3 L (32-36) g/dl RDW 20.4 H (11.5-14.0) % Plt Count 328 (150-450) K/mm3 MPV 9.9 (7.5-11.0) fl Gran % 80.6 H (36.0-66.0) % Eos # (Auto) 0.08 (0-0.5) Absolute Lymphs (auto) 1.15 (1.0-4.6) Absolute Monos (auto) 0.96 (0.0-1.3) Lymphocytes % 10.1 L (24.0-44.0) % Monocytes % 8.4 (0.0-12.0) % Eosinophils % 0.7 (0.00-5.0) % Basophils % 0.2 (0.0-0.4) % Absolute Granulocytes 9.20 H (1.4-6.9) Segmented Neutrophils (36.0-66.0) % Lymphocytes (Manual) (24-44) % Monocytes (Manual) (0.0-12.0) % Basophils # 0.02 (0-0.4) Hypochromia Platelet Estimate (NORMAL) RBC Morphology Microcytosis Sodium (137-145) mmol/L Potassium (3.5-5.1) mmol/L Chloride (98-107) mmol/L Carbon Dioxide (22-30) mmol/L Anion Gap (5-15) MEQ/L BUN (7-17) mg/dL Creatinine (0.52-1.04) mg/dL Estimated GFR ML/MIN Glucose (74-106) mg/dL Lactic Acid (0.4-2.0) Calcium (8.4-10.2) mg/dL Total Bilirubin (0.2-1.3) mg/dL AST (14-36) U/L ALT (0-35) U/L Alkaline Phosphatase (38-126) U/L Troponin I < 0.012 < 0.012 (0.000-0.034) ng/mL NT-Pro-B Natriuret Pep (0-900) pg/mL Serum Total Protein (6.3-8.2) g/dL Albumin (3.5-5.0) g/dL Urine Color (YELLOW) Urine Appearance (CLEAR) Urine pH (5-6) Ur Specific Junction (1.005-1.025) Urine Protein (Negative) Urine Ketones (NEGATIVE) Urine Blood (0-5) Erasto/ul Urine Nitrite (NEGATIVE) Urine Bilirubin (NEGATIVE) Urine Urobilinogen (0-1) mg/dL Ur Leukocyte Esterase (NEGATIVE) Urine WBC (Auto) (0-5) /HPF Urine RBC (Auto) (0-2) /HPF U Epithel Cells (Auto) (FEW) /HPF Urine Bacteria (Auto) (NEGATIVE) /HPF Urine Mucus (Auto) (NEGATIVE) /HPF Urine Culture Reflexed (NO) Urine Glucose (NEGATIVE) mg/dL Monoscreen (Negative) Influenza Type A Ag (NEGATIVE) Influenza Type B Ag (NEGATIVE) SARS-CoV-2 (PCR) (NEGATIVE) Group A Strep Antibody (NEGATIVE) Slides for Path Review YES ABO Group Rh Factor Antibody Screen (NEGATIVE) Crossmatch (COMPATIBLE) 12/24/20 12/24/20 12/24/20 Range/Units 04:50 13:20 13:45 WBC (4.0-10.5) K/mm3 RBC (4.1-5.4) M/mm3 Hgb 9.5 L D (12.0-16.0) gm/dl Hct 31.6 L (35-47) % MCV (78-100) fl MCH (26-32) pg MCHC (32-36) g/dl RDW (11.5-14.0) % Plt Count (150-450) K/mm3 MPV (7.5-11.0) fl Gran % (36.0-66.0) % Eos # (Auto) (0-0.5) Absolute Lymphs (auto) (1.0-4.6) Absolute Monos (auto) (0.0-1.3) Lymphocytes % (24.0-44.0) % Monocytes % (0.0-12.0) % Eosinophils % (0.00-5.0) % Basophils % (0.0-0.4) % Absolute Granulocytes (1.4-6.9) Segmented Neutrophils (36.0-66.0) % Lymphocytes (Manual) (24-44) % Monocytes (Manual) (0.0-12.0) % Basophils # (0-0.4) Hypochromia Platelet Estimate (NORMAL) RBC Morphology Microcytosis Sodium 141 (137-145) mmol/L Potassium 3.1 L 4.1 D (3.5-5.1) mmol/L Chloride 102 (98-107) mmol/L Carbon Dioxide 32 H (22-30) mmol/L Anion Gap 9.0 (5-15) MEQ/L BUN 11 (7-17) mg/dL Creatinine 0.81 (0.52-1.04) mg/dL Estimated GFR > 60.0 ML/MIN Glucose 163 H (74-106) mg/dL Lactic Acid (0.4-2.0) Calcium 8.2 L (8.4-10.2) mg/dL Total Bilirubin 0.30 (0.2-1.3) mg/dL AST 25 (14-36) U/L ALT 12 (0-35) U/L Alkaline Phosphatase 48 (38-126) U/L Troponin I (0.000-0.034) ng/mL NT-Pro-B Natriuret Pep (0-900) pg/mL Serum Total Protein 6.1 L (6.3-8.2) g/dL Albumin 3.5 (3.5-5.0) g/dL Urine Color (YELLOW) Urine Appearance (CLEAR) Urine pH (5-6) Ur Specific Junction (1.005-1.025) Urine Protein (Negative) Urine Ketones (NEGATIVE) Urine Blood (0-5) Erasto/ul Urine Nitrite (NEGATIVE) Urine Bilirubin (NEGATIVE) Urine Urobilinogen (0-1) mg/dL Ur Leukocyte Esterase (NEGATIVE) Urine WBC (Auto) (0-5) /HPF Urine RBC (Auto) (0-2) /HPF U Epithel Cells (Auto) (FEW) /HPF Urine Bacteria (Auto) (NEGATIVE) /HPF Urine Mucus (Auto) (NEGATIVE) /HPF Urine Culture Reflexed (NO) Urine Glucose (NEGATIVE) mg/dL Monoscreen (Negative) Influenza Type A Ag (NEGATIVE) Influenza Type B Ag (NEGATIVE) SARS-CoV-2 (PCR) (NEGATIVE) Group A Strep Antibody (NEGATIVE) Slides for Path Review ABO Group Rh Factor Antibody Screen (NEGATIVE) Crossmatch (COMPATIBLE) - Radiology Exams Ordered Rad Exams-Entire Visit: Radiology Procedures Category Date Time Status CHEST 1 VIEW (PORTABLE) Stat Exams 12/23/20 16:40 Completed - Procedures and Test Procedures and Tests throughout Hospitalization: Therapy Orders & Screens 12/23/20 21:28 Respiratory Therapy Assessment DAILY Comment: 12/23/20 22:15 Oxygen Nasal Cannula 3 lpm Comment: Respiratory Therapy Consult ROUTINE Comment: Reason For Exam: 12/23/20 23:01 RT Screen per Nursing Assess ONCE Comment: Protocol Order Physician Instructions: Greater than 3 points order RT Admission Screen Reason For Exam: Triggered on Admission Diagnosis: symptomatic anemia, leukocytosis, lactic acidemia Diagnosis: symptomatic anemia, leukocytosis, lactic acidemia Pneumonia: No Home O2: Yes Asthma: No CHF: No Home CPAP/BIPAP: No Home Nebs/MDI: Yes Total Points: 10 Smoking Cessation Education ONCE Comment: Diagnosis: symptomatic anemia, leukocytosis, lactic acidemia Smoking Status: Current every day smoker How long have you smoked: 40+ years Have you smoked in the past 12 months: Yes Approximately how many cigarettes per day: 5 Do you dip or chew tobacco: No If,Former Smoker,when did you quit: apr 2020 - Discharge Disposition: HOME HEALTH SERVICE Condition: Fair Prescriptions: New Furosemide [Lasix] 20 mg PO DAILY #30 tablet Continue Clonazepam 0.5 mg [Klonopin 0.5 MG] 2 mg PO BID Fluticasone/Salmeterol Disc [Advair/Wixella 250-50 Diskus 14 Dose] 1 puff IH BID Famotidine 20 mg [Pepcid 20 MG] 40 mg PO BID Albuterol/Ipratropium Mdi [Combivent Inhaler] 1 puff IH Q4H Sertraline HCl 100 mg [Zoloft 100 MG] 200 mg PO DAILY Isosorbide Mononitrate 30 mg [Imdur 30 MG] 30 mg PO DAILY Tizanidine HCl 4 mg [Zanaflex 4 MG] 4 mg PO TID Levothyroxine Sodium 25 Mcg [Synthroid 25 Mcg] 25 mcg PO DAILY Quetiapine Fumarate [Seroquel] 200 mg PO QAM Vits W-Ca,Fe,FA(<1Mg) [] 1 each PO DAILY Nitroglycerin 0.4 mg Tablet [Nitrostat 0.4 MG Tablet] 0.4 mg SL UD PRN PRN Reason: Chest Pain Albuterol Common Canister [Ventolin Common Canister] 2 puff IH Q4-6HPRN PRN PRN Reason: Shortness Of Breath Quetiapine Fumarate 300 mg PO QHS Gabapentin 1,200 mg PO DAILY Gabapentin [Neurontin] 2,400 mg PO HS Theophylline Anhydrous 300 mg PO DAILY Instructions: Anemia of Chronic Disease Additional Instructions: WILL SEND IN REFERRAL TO [facility] FOR [facility] AND OT. THEIR PHONE NUMBER IS [phone] Follow up with: WEN CAMERON MD [Primary Care Provider] - 12/31/20 9:30 am (at [facility] ) Forms: Discharge Instructions
[2020-12-25] MEDS ORDERED: NON-FORMULARY ITEM (Sertraline Hcl 100 Mg [Zoloft 100 Mg] 100 MG Tab) PO SCH (10:00)
== END 2020-12-24 16:40 | disposition home health service (06) ==
LOC: ED 16:31 → INTOOBSV 22:11 → MED SURG 22:11
PROVIDERS: ADMIT General Practice; ATTEND General Practice
DX: D53.9 Nutritional anemia, unspecified (principal); R53.1 Weakness; D72.829 Elevated white blood cell count, unspecified; Z99.81 Dependence on supplemental oxygen; J44.9 Chronic obstructive pulmonary disease, unspecified; E03.9 Hypothyroidism, unspecified; I25.10 Atherosclerotic heart disease of native coronary artery without angina pectoris; E78.00 Pure hypercholesterolemia, unspecified; Z20.822 Contact with and (suspected) exposure to COVID-19; Z79.899 Other long term (current) drug therapy
CPT/HCPCS: 36000; 36415; 36430; 71045; 80053; 81001; 83605; 83880; 84132; 84484; 85014; 85018; 85025; 85379; 86308; 86850; 86900; 86901; 86922; 87040; 87400; 87651; 93005; 93041; 93268; 94640; 94760; 96365; 96374; 99285; 99291; G0378; P9016; U0003; J1940; J1956; A9270-GY

== ENCOUNTER 2021-03-14 22:16 | Inpatient (IN) | payer MEDICARE ==
--- NOTE | 2021-03-14 22:25 | ERPHSYRPT ---
- History of Present Illness Allergies/Adverse Reactions: morphine Allergy (Severe, Verified 12/23/20 16:55) Fainting oxycodone Allergy (Verified 12/23/20 16:55) Shortness of Breath Penicillins Allergy (Verified 12/23/20 16:55) oxymorphone Adverse Reaction (Severe, Verified 12/23/20 16:55) Fainting Coconut Adverse Reaction (Intermediate, Verified 12/23/20 16:55) Headache bupropion HCl [From Wellbutrin] Adverse Reaction (Mild, Verified 12/23/20 16:55) Hives Home Medications: Albuterol/Ipratropium Mdi [Combivent Inhaler] 1 puff IH Q4H 12/29/12 [History] Clonazepam 0.5 mg [Klonopin 0.5 MG] 2 mg PO BID 12/29/12 [History] Famotidine 20 mg [Pepcid 20 MG] 40 mg PO BID 12/29/12 [History] Fluticasone/Salmeterol Disc [Advair/Wixella 250-50 Diskus 14 Dose] 1 puff IH BID 12/29/12 [History] Sertraline HCl 100 mg [Zoloft 100 MG] 200 mg PO DAILY 12/17/13 [History] Isosorbide Mononitrate 30 mg [Imdur 30 MG] 30 mg PO DAILY 11/05/14 [History] Tizanidine HCl 4 mg [Zanaflex 4 MG] 4 mg PO TID 01/16/15 [History] Levothyroxine Sodium 25 Mcg [Synthroid 25 Mcg] 25 mcg PO DAILY 10/17/15 [History] Quetiapine Fumarate [Seroquel] 200 mg PO QAM 10/17/15 [History] Vits W-Ca,Fe,FA(<1Mg) [] 1 each PO DAILY 10/18/15 [History] Nitroglycerin 0.4 mg Tablet [Nitrostat 0.4 MG Tablet] 0.4 mg SL UD PRN 11/15/15 [History] Albuterol Common Canister [Ventolin Common Canister] 2 puff IH Q4-6HPRN PRN 07/08/19 [History] Quetiapine Fumarate 300 mg PO QHS 07/08/19 [History] Gabapentin 1,200 mg PO DAILY 04/08/20 [History] Gabapentin [Neurontin] 2,400 mg PO HS 04/08/20 [History] Theophylline Anhydrous 300 mg PO DAILY 12/23/20 [History] Hx Tetanus, Diphtheria Vaccination/Date Given: Yes Hx Influenza Vaccination/Date Given: Yes Hx Pneumococcal Vaccination/Date Given: Yes Travel Risk - Vaccine Status Have you recieved a Covid-19 vaccination: No - Vaccination Dates Comment: . - Past Medical History Pertinent Past Medical History: Yes Neurological History: Migraines ENT History: No Pertinent History Cardiac History: Congestive Heart Failure, Coronary Artery Disease, High Cholesterol Respiratory History: Asthma, Bronchitis, COPD, Pneumonia Endocrine Medical History: Hypothyroidism Musculoskeletal History: Arthritis GI Medical History: GERD, Hernia, Polyps History: No Pertinent History Psycho-Social History: Anxiety, Bipolar, Depression Female Reproductive Disorders: Fibroids Other Medical History: 2 LEAKY VALVES. BORDERLINE PERSONALITY DISORDER, PTSD, manic depressive. bone deficiency - Past Surgical History Past Surgical History: Yes Neuro Surgical History: No Pertinent History Cardiac: Cardiac Catheterization Respiratory: No Pertinent History Gastrointestinal: Other Genitourinary: No Pertinent History Musculoskeletal: Other Female Surgical History: Section Other Surgical History: ARM SURGERY-- left wrist laceration from a glass door,, 2 c-sections, EGD with dilitation, colonoscopy, heart cath x 2 - Social History Smoking Status: Current every day smoker How long have you smoked: 40+ years Exposure to second hand smoke: Yes Alcohol Use: Socially Drug Use: none Patient Lives Alone: No Significant Family History: no pertinent family hx - Departure Referrals: WEN CAMERON MD [Primary Care Provider] - Follow up/PCP as directed
--- NOTE | 2021-03-14 22:28 | ERPHSYRPT ---
- History of Present Illness Time Seen by Provider: 03/14/21 22:27 Source: patient Exam Limitations: no limitations Physician History: Cough and SOA a few d. No chest pain. Timing/Duration: today Cough Quality/Degree: moderate Possible Cause: occasional episodes Modifying Factors: Improves With: activity Associated Symptoms: denies symptoms Allergies/Adverse Reactions: morphine Allergy (Severe, Verified 03/14/21 22:50) Fainting oxycodone Allergy (Verified 03/14/21 22:50) Shortness of Breath Penicillins Allergy (Verified 03/14/21 22:50) oxymorphone Adverse Reaction (Severe, Verified 03/14/21 22:50) Fainting Coconut Adverse Reaction (Intermediate, Verified 03/14/21 22:50) Headache bupropion HCl [From Wellbutrin] Adverse Reaction (Mild, Verified 03/14/21 22:50) Hives Home Medications: Albuterol/Ipratropium Mdi [Combivent Inhaler] 1 puff IH Q4H 12/29/12 [History] Clonazepam 0.5 mg [Klonopin 0.5 MG] 2 mg PO BID 12/29/12 [History] Famotidine 20 mg [Pepcid 20 MG] 40 mg PO BID 12/29/12 [History] Fluticasone/Salmeterol Disc [Advair/Wixella 250-50 Diskus 14 Dose] 1 puff IH BID 12/29/12 [History] Sertraline HCl 100 mg [Zoloft 100 MG] 200 mg PO DAILY 12/17/13 [History] Isosorbide Mononitrate 30 mg [Imdur 30 MG] 30 mg PO DAILY 11/05/14 [History] Tizanidine HCl 4 mg [Zanaflex 4 MG] 4 mg PO TID 01/16/15 [History] Levothyroxine Sodium 25 Mcg [Synthroid 25 Mcg] 25 mcg PO DAILY 10/17/15 [History] Quetiapine Fumarate [Seroquel] 200 mg PO QAM 10/17/15 [History] Vits W-Ca,Fe,FA(<1Mg) [] 1 each PO DAILY 10/18/15 [History] Nitroglycerin 0.4 mg Tablet [Nitrostat 0.4 MG Tablet] 0.4 mg SL UD PRN 11/15/15 [History] Albuterol Common Canister [Ventolin Common Canister] 2 puff IH Q4-6HPRN PRN 07/08/19 [History] Quetiapine Fumarate 300 mg PO QHS 07/08/19 [History] Gabapentin 1,200 mg PO DAILY 04/08/20 [History] Gabapentin [Neurontin] 2,400 mg PO HS 04/08/20 [History] Theophylline Anhydrous 300 mg PO DAILY 12/23/20 [History] Hx Tetanus, Diphtheria Vaccination/Date Given: Yes Hx Influenza Vaccination/Date Given: Yes Hx Pneumococcal Vaccination/Date Given: Yes Travel Risk - Vaccine Status Have you recieved a Covid-19 vaccination: No - Vaccination Dates Comment: . - Review of Systems Constitutional: Fatigue, Lethargy, Malaise Eyes: No Symptoms Ears, Nose, & Throat: No Symptoms Respiratory: Cough, Dyspnea Cardiac: No Symptoms Abdominal/Gastrointestinal: No Symptoms Genitourinary Symptoms: No Symptoms Musculoskeletal: No Symptoms Neurological: No Symptoms Psychological: No Symptoms Endocrine: No Symptoms Hematologic/Lymphatic: No Symptoms Immunological/Allergic: No Symptoms All Other Systems: Reviewed and Negative - Past Medical History Pertinent Past Medical History: Yes Neurological History: Migraines ENT History: No Pertinent History Cardiac History: Congestive Heart Failure, Coronary Artery Disease, High Cholesterol Respiratory History: Asthma, Bronchitis, COPD, Pneumonia Endocrine Medical History: Hypothyroidism Musculoskeletal History: Arthritis GI Medical History: GERD, Hernia, Polyps History: No Pertinent History Psycho-Social History: Anxiety, Bipolar, Depression Female Reproductive Disorders: Fibroids Other Medical History: 2 LEAKY VALVES. BORDERLINE PERSONALITY DISORDER, PTSD, manic depressive. bone deficiency - Past Surgical History Past Surgical History: Yes Neuro Surgical History: No Pertinent History Cardiac: Cardiac Catheterization Respiratory: No Pertinent History Gastrointestinal: Other Genitourinary: No Pertinent History Musculoskeletal: Other Female Surgical History: Section Other Surgical History: ARM SURGERY-- left wrist laceration from a glass door,, 2 c-sections, EGD with dilitation, colonoscopy, heart cath x 2 - Social History Smoking Status: Current every day smoker How long have you smoked: 40+ years Exposure to second hand smoke: Yes Alcohol Use: Socially Drug Use: none Patient Lives Alone: No Significant Family History: no pertinent family hx - Nursing Vital Signs Nursing Vital Signs: Initial Vital Signs Temperature 99.0 F 03/14/21 22:22 Pulse Rate 117 H 03/14/21 22:22 Respiratory Rate 28 H 03/14/21 22:22 Blood Pressure 89/46 03/14/21 22:22 O2 Sat by Pulse Oximetry 98 03/14/21 22:22 Pain Scale Pain Intensity 0 - Physical Exam General Appearance: mild distress, obese Eye Exam: PERRL/EOMI Ears, Nose, Throat Exam: normal ENT inspection Neck Exam: normal inspection Respiratory Exam: diminished breath sounds, crackles/rales, wheezing Cardiovascular Exam: regular rate/rhythm Gastrointestinal/Abdomen Exam: soft Pelvic Exam: not done Rectal Exam: not done Back Exam: normal inspection Extremity Exam: normal inspection Neurologic Exam: alert, oriented x 3 Skin Exam: normal color, warm SpO2 Interpretation: borderline oxygenation, O2 applied (uses home O2 at 3L, continued) - Course Nursing assessment & vital signs reviewed: Yes EKG Interpreted by Me: RATE ([id number]), Sinus Tach, NORMAL AXIS, NORMAL INTERVALS, NORMAL QRS, NORMAL ST-T - Radiology Exams Chest X-ray Interpretation: Interpreted by me, Pneumonia (RLL) Ordered Tests: Active Orders 24 hr Category Date Time Status EKG-ER Only STAT Care 03/14/21 23:17 Active CHEST 1 VIEW (PORTABLE) Stat Exams 03/14/21 23:15 Taken ABG [ARTERIAL BLOOD GASES] Stat Lab 03/14/21 22:43 Completed BLOOD CULTURE Stat Lab 03/14/21 23:41 Received CBC W DIFF Stat Lab 03/14/21 23:41 Results CMP Stat Lab 03/14/21 23:41 Completed Lactic Acid Stat Lab 03/15/21 00:05 Completed Manual Differential NC Stat Lab 03/14/21 23:41 Results PROCALCITONIN Q24H Lab 03/15/21 00:01 Completed Pathologist Review Stat Lab 03/14/21 23:41 Results TROPONIN Q3H Lab 03/14/21 23:41 Completed UA W/RFX UR CULTURE Stat Lab 03/15/21 00:04 Ordered Respiratory Therapy Assessment DAILY RT 03/15/21 03:07 Active Medication Summary Discontinued Medications Generic Name Dose Route Start Last Admin Trade Name Freq PRN Reason Stop Dose Admin Albuterol/Ipratropium 3 ml 03/15/21 02:56 03/15/21 03:07 Ipratropium/Albuterol Sulfate 3 Ml Ampul.Neb IH 03/15/21 02:57 3 ml STAT ONE Administration Albuterol/Ipratropium Confirm 03/15/21 02:56 Ipratropium/Albuterol Sulfate 3 Ml Ampul.Neb Administered 03/15/21 02:57 Dose 3 ml IH .STK-MED ONE Levofloxacin/Dextrose 750 mg in 150 mls @ 100 mls/hr 03/15/21 00:06 03/15/21 03:04 Levofloxacin 750mg/150ml D5w IV 03/15/21 01:35 Infused STAT STA Infusion Sodium Chloride 1,000 mls @ 999 mls/hr 03/15/21 00:08 03/15/21 03:05 Sodium Chloride 0.9% 1000 Ml IV 03/15/21 01:08 Infused .Q1H1M STA Infusion Sodium Chloride Confirm 03/15/21 00:23 Sodium Chloride 0.9% 1000 Ml Administered 03/15/21 00:24 Dose 1,000 mls @ ud .ROUTE .STK-MED ONE Levofloxacin/Dextrose Confirm 03/15/21 00:23 Levofloxacin 750mg/150ml D5w Administered 03/15/21 00:24 Dose 750 mg in 150 mls @ ud IV .STK-MED ONE Lab/Rad Data: Laboratory Result Diagrams 03/14/21 23:41 03/14/21 23:41 Laboratory Results 03/15/21 03/15/21 03/14/21 Range/Units 00:05 00:01 23:51 WBC (4.0-10.5) K/mm3 RBC (4.1-5.4) M/mm3 Hgb (12.0-16.0) gm/dl Hct (35-47) % MCV (78-100) fl MCH (26-32) pg MCHC (32-36) g/dl RDW (11.5-14.0) % Plt Count (150-450) K/mm3 MPV (7.5-11.0) fl Gran % (36.0-66.0) % Eos # (Auto) (0-0.5) Absolute Lymphs (auto) (1.0-4.6) Absolute Monos (auto) (0.0-1.3) Lymphocytes % (24.0-44.0) % Monocytes % (0.0-12.0) % Eosinophils % (0.00-5.0) % Basophils % (0.0-0.4) % Absolute Granulocytes (1.4-6.9) Segmented Neutrophils (36.0-66.0) % Lymphocytes (Manual) (24-44) % Monocytes (Manual) (0.0-12.0) % Basophils (Manual) (0.0-1.0) % Basophils # (0-0.4) Hypochromia Platelet Estimate (NORMAL) RBC Morphology Polychromasia Anisocytosis Smear Path Review Puncture Site pCO2 (35-45) mmHg pO2 (75-100) mmHg Base Excess (-2.0-2.0) O2 Saturation (94-100) g/dF ABG pH (7.35-7.45) ABG HCO3 (22-28) ABG O2 Sat (Measured) (95-100) % Get Test A-a Gradient a/A Ratio Hemoglobin Carboxyhemoglobin (0.0-6.9) % THgb Methemoglobin (1.4-1.5) % Potassium (3.5-5.1) Temperature C POC O2 Flow Rate % Sodium (137-145) mmol/L Chloride (98-107) mmol/L Carbon Dioxide (22-30) mmol/L Anion Gap (5-15) MEQ/L BUN (7-17) mg/dL Creatinine (0.52-1.04) mg/dL Estimated GFR ML/MIN Glucose (74-106) mg/dL Lactic Acid 1.5 (0.4-2.0) Calcium (8.4-10.2) mg/dL Total Bilirubin (0.2-1.3) mg/dL AST (14-36) U/L ALT (0-35) U/L Alkaline Phosphatase (38-126) U/L Troponin I (0.000-0.034) ng/mL Serum Total Protein (6.3-8.2) g/dL Albumin (3.5-5.0) g/dL Procalcitonin 6.870 H* (0.030-0.080) ng/mL Influenza Type A Ag NEGATIVE (NEGATIVE) Influenza Type B Ag NEGATIVE (NEGATIVE) RSV (PCR) NEGATIVE (Negative) SARS-CoV-2 (PCR) NEGATIVE (NEGATIVE) 03/14/21 03/14/21 03/14/21 Range/Units 23:41 23:41 23:41 WBC 39.1 H* (4.0-10.5) K/mm3 RBC 3.38 L (4.1-5.4) M/mm3 Hgb 9.9 L (12.0-16.0) gm/dl Hct 32.8 L (35-47) % MCV 97.0 (78-100) fl MCH 29.3 (26-32) pg MCHC 30.2 L (32-36) g/dl RDW 19.8 H (11.5-14.0) % Plt Count 363 (150-450) K/mm3 MPV 10.0 (7.5-11.0) fl Gran % (36.0-66.0) % Eos # (Auto) (0-0.5) Absolute Lymphs (auto) (1.0-4.6) Absolute Monos (auto) (0.0-1.3) Lymphocytes % (24.0-44.0) % Monocytes % (0.0-12.0) % Eosinophils % (0.00-5.0) % Basophils % (0.0-0.4) % Absolute Granulocytes (1.4-6.9) Segmented Neutrophils 87 H (36.0-66.0) % Lymphocytes (Manual) 1 L (24-44) % Monocytes (Manual) 3 (0.0-12.0) % Basophils (Manual) 9 H (0.0-1.0) % Basophils # (0-0.4) Hypochromia 1+ Platelet Estimate NORMAL (NORMAL) RBC Morphology ABNORMAL Polychromasia 2+ Anisocytosis 2+ Smear Path Review Pending Puncture Site pCO2 (35-45) mmHg pO2 (75-100) mmHg Base Excess (-2.0-2.0) O2 Saturation (94-100) g/dF ABG pH (7.35-7.45) ABG HCO3 (22-28) ABG O2 Sat (Measured) (95-100) % Get Test A-a Gradient a/A Ratio Hemoglobin Carboxyhemoglobin (0.0-6.9) % THgb Methemoglobin (1.4-1.5) % Potassium 3.8 (3.5-5.1) Temperature C POC O2 Flow Rate % Sodium 135 L (137-145) mmol/L Chloride 96 L (98-107) mmol/L Carbon Dioxide 36 H (22-30) mmol/L Anion Gap 7.0 (5-15) MEQ/L BUN 21 H (7-17) mg/dL Creatinine 1.37 H (0.52-1.04) mg/dL Estimated GFR 41.4 ML/MIN Glucose 96 (74-106) mg/dL Lactic Acid (0.4-2.0) Calcium 8.4 (8.4-10.2) mg/dL Total Bilirubin 0.40 (0.2-1.3) mg/dL AST 21 (14-36) U/L ALT 17 (0-35) U/L Alkaline Phosphatase 64 (38-126) U/L Troponin I 0.019 (0.000-0.034) ng/mL Serum Total Protein 5.9 L (6.3-8.2) g/dL Albumin 3.3 L (3.5-5.0) g/dL Procalcitonin (0.030-0.080) ng/mL Influenza Type A Ag (NEGATIVE) Influenza Type B Ag (NEGATIVE) RSV (PCR) (Negative) SARS-CoV-2 (PCR) (NEGATIVE) 03/14/21 Range/Units 22:43 WBC (4.0-10.5) K/mm3 RBC (4.1-5.4) M/mm3 Hgb (12.0-16.0) gm/dl Hct (35-47) % MCV (78-100) fl MCH (26-32) pg MCHC (32-36) g/dl RDW (11.5-14.0) % Plt Count (150-450) K/mm3 MPV (7.5-11.0) fl Gran % (36.0-66.0) % Eos # (Auto) (0-0.5) Absolute Lymphs (auto) (1.0-4.6) Absolute Monos (auto) (0.0-1.3) Lymphocytes % (24.0-44.0) % Monocytes % (0.0-12.0) % Eosinophils % (0.00-5.0) % Basophils % (0.0-0.4) % Absolute Granulocytes (1.4-6.9) Segmented Neutrophils (36.0-66.0) % Lymphocytes (Manual) (24-44) % Monocytes (Manual) (0.0-12.0) % Basophils (Manual) (0.0-1.0) % Basophils # (0-0.4) Hypochromia Platelet Estimate (NORMAL) RBC Morphology Polychromasia Anisocytosis Smear Path Review Puncture Site RIGHT BRACHIAL pCO2 59 H (35-45) mmHg pO2 177 H* (75-100) mmHg Base Excess 8.6 H (-2.0-2.0) O2 Saturation 97.0 (94-100) g/dF ABG pH 7.39 (7.35-7.45) ABG HCO3 35.7 H* (22-28) ABG O2 Sat (Measured) 98.2 (95-100) % Get Test NOT APPLICABLE A-a Gradient 462 a/A Ratio 0.28 Hemoglobin 10.2 Carboxyhemoglobin 0.7 (0.0-6.9) % THgb Methemoglobin 0.5 L (1.4-1.5) % Potassium 3.8 (3.5-5.1) Temperature 37.0 C POC O2 Flow Rate 100 % Sodium (137-145) mmol/L Chloride (98-107) mmol/L Carbon Dioxide (22-30) mmol/L Anion Gap (5-15) MEQ/L BUN (7-17) mg/dL Creatinine (0.52-1.04) mg/dL Estimated GFR ML/MIN Glucose (74-106) mg/dL Lactic Acid (0.4-2.0) Calcium (8.4-10.2) mg/dL Total Bilirubin (0.2-1.3) mg/dL AST (14-36) U/L ALT (0-35) U/L Alkaline Phosphatase (38-126) U/L Troponin I (0.000-0.034) ng/mL Serum Total Protein (6.3-8.2) g/dL Albumin (3.5-5.0) g/dL Procalcitonin (0.030-0.080) ng/mL Influenza Type A Ag (NEGATIVE) Influenza Type B Ag (NEGATIVE) RSV (PCR) (Negative) SARS-CoV-2 (PCR) (NEGATIVE) - Progress Progress: improved Air Movement: fair Progress Note: COPD exac. with pneumonia. COVID and flu neg. Not septic. Levaquin 750 mg IV. Neb tx. Discussed with Dr. Nair, on-call for Dr. Garrison. 03/15/21 06:36 Blood Culture(s) Obtained: Yes Antibiotics given: Yes Discussed with DrTorin: Jose Will see patient in: hospital (full admit) Counseled pt/family regarding: lab results, diagnosis, rad results - Departure Departure Disposition: In-patient Admission Clinical Impression: Pneumonia Qualifiers: Pneumonia type: due to unspecified organism COPD (chronic obstructive pulmonary disease) Qualifiers: Emphysema type: unilateral Condition: Stable Critical Care Time: No
[2021-03-14 22:49] LABS: A-aADO2 462; ABG HEMOGLOBIN 10.2; ABG POTASSIUM 3.8 (3.5-5.1); ABG SITE RIGHT BRACHIAL; ARTERIAL BLD GAS O2 SATURATION 98.2 % (95-100); ARTERIAL BLOOD GAS BASE EXCESS 8.6 (-2.0-2.0); ARTERIAL BLOOD GAS FIO2 100 %; ARTERIAL BLOOD GAS PCO2 59 mmHg (35-45); ARTERIAL BLOOD GAS PO2 177 mmHg (75-100); ARTERIAL BLOOD GAS pH 7.39 (7.35-7.45); CARBOXYHEMOGLOBIN 0.7 % THgb (0.0-6.9); HCO3- 35.7 (22-28); Methhemoglobin 0.5 % (1.4-1.5)
[2021-03-15 00:02] LABS: Hematocrit 32.8 % (35-47); Hemoglobin 9.9 gm/dl (12.0-16.0); Mean Corpuscular Hemoglobin 29.3 pg (26-32); Mean Corpuscular Hgb Concent. 30.2 g/dl (32-36); Platelet Count 363 K/mm3 (150-450); Red Blood Count 3.38 M/mm3 (4.1-5.4); Red Cell Distribution Width 19.8 % (11.5-14.0)
[2021-03-15 00:03] LABS: White Blood Count 39.1 K/mm3 (4.0-10.5)
[2021-03-15] MEDS ORDERED: LEVOFLOXACIN 750MG/150ML D5W 750 MG/150 ML BAG IV STA (00:06)
[2021-03-15] MEDS ORDERED: Sodium Chloride 0.9% 1000 ML 1,000 ML IV STA (00:08)
[2021-03-15 00:13] LABS: ALBUMIN 3.3 g/dL (3.5-5.0); BILIRUBIN,TOTAL 0.4 mg/dL (0.2-1.3); Calcium 8.4 mg/dL (8.4-10.2); Creatinine 1 1.37 mg/dL (0.52-1.04); EST GLOMERULAR FILTRATION RATE 41.4 ML/MIN; Potassium 3.8 mmol/L (3.5-5.1); Total Protein 5.9 g/dL (6.3-8.2)
[2021-03-15] MEDS ORDERED: LEVOFLOXACIN 750MG/150ML D5W 750 MG/150 ML BAG IV ONE (00:23)
[2021-03-15] MEDS ORDERED: Sodium Chloride 0.9% 1000 ML 1,000 ML ONE (00:23)
[2021-03-15 00:33] LABS: INFLUENZA A NEGATIVE (NEGATIVE); INFLUENZA B NEGATIVE (NEGATIVE); RESPIRATORY SYNCTIAL VIRUS NEGATIVE (Negative); SARS-CoV-2 Xpert Express NEGATIVE (NEGATIVE)
[2021-03-15 01:05] LABS: Basophil 9 % (0.0-1.0); Lymphocytes 1 % (24-44); Monocyte 3 % (0.0-12.0); Neutrophils 87 % (36.0-66.0); Total Cells Counted 100
[2021-03-15 01:06] LABS: ANISOCYTOSIS 2+; Hypochromia 1+; Platelet Estimate NORMAL (NORMAL); Polychromasia 2+
[2021-03-15] MEDS ORDERED: DUONEB 0.5-3 MG/3 ml Neb IH ONE ×2 (02:56)
[2021-03-15] MEDS: DUONEB 0.5-3 MG/3 ml Neb IH SCH ×4 (06:51→17:43)
[2021-03-15] MEDS: Advair Hfa 115/21 Common canister IH SCH ×2 (06:58→20:36)
[2021-03-15 07:12] LABS: Appearance CLOUDY (CLEAR); Bilirubin NEGATIVE (NEGATIVE); Blood NEGATIVE Ery/ul (0-5); Epithelial Cells RARE /HPF (FEW); Glucose NEGATIVE (NEGATIVE); Ketones NEGATIVE (NEGATIVE); Leukocyte Esterase SMALL (NEGATIVE); Mucus SLIGHT /HPF (NEGATIVE); Nitrite NEGATIVE (NEGATIVE); Protein,Urine Dip 30 (Negative); RBC 0-2 /HPF (0-2); Specific Gravity 1.019 (1.005-1.025); Urobilinogen NEGATIVE mg/dL (0-1)
--- NOTE | 2021-03-15 07:59 | XRAY ---
Indication: Short of breath. COPD. Comparison: December 23, 2020. Portable chest demonstrates new diffuse right lung interstitial alveolar opacities without consolidation//effusion. Heart not enlarged again with moderate sized hiatal hernia. Bony thorax intact again with mild osteopenia and degenerative changes.
[2021-03-15] MEDS ORDERED: solu-MEDROL 125 MG, Sterile H2O 10 ml 2 ML IV SCH ×2 (09:17)
[2021-03-15] MEDS ORDERED: Nitrostat 0.4 MG Tablet SL PRN (09:46)
[2021-03-15] MEDS ORDERED: NON-FORMULARY ITEM (Prenatal Vits W-Ca,Fe,Fa(<1mg) [Prenatal] 1 EACH Tablet) PO SCH (10:00)
[2021-03-15] MEDS ORDERED: THEOPHYLLINE ANHYDROUS 300 MG PO SCH (10:00)
[2021-03-15] MEDS ORDERED: NON-FORMULARY ITEM (Sertraline Hcl 100 Mg [Zoloft 100 Mg] 100 MG Tab) PO SCH ×2 (10:00)
[2021-03-15 10:15] LABS: Hemoglobin 9.8 gm/dl (12.0-16.0); Mean Cell Volume 97.6 fl (78-100); Mean Corpuscular Hgb Concent. 29.7 g/dl (32-36); Mean Platelet Volume 9.7 fl (7.5-11.0); Platelet Count 336 K/mm3 (150-450); Red Blood Count 3.38 M/mm3 (4.1-5.4); Red Cell Distribution Width 19.6 % (11.5-14.0)
[2021-03-15 10:45] LABS: White Blood Count 30.7 K/mm3 (4.0-10.5)
[2021-03-15] MEDS: KLONOPIN PO SCH ×2 (11:13→21:13)
[2021-03-15] MEDS: solu-MEDROL IV SCH ×2 (11:13→21:14)
[2021-03-15] MEDS: SYNTHROID 25 MCG PO SCH (11:14)
[2021-03-15] MEDS: Pepcid 20 MG PO SCH ×2 (11:14→21:14)
[2021-03-15] MEDS: THERAGRAN MULTIVITAMIN PO SCH (11:15)
[2021-03-15] MEDS: LASIX 20 MG PO SCH (11:15)
[2021-03-15] MEDS: Imdur 30 MG PO SCH (11:16)
[2021-03-15] MEDS: THEOPHYLLINE ER 24HR PO SCH (11:17)
[2021-03-15] MEDS: ZOLOFT 50 MG TABLET PO SCH (13:48)
[2021-03-15 15:35] LABS: BAND 14 % (0.0-2.0); Lymphocytes 5 % (24-44); Monocyte 3 % (0.0-12.0); Neutrophils 78 % (36.0-66.0); Platelet Estimate NORMAL (NORMAL); Total Cells Counted 100
[2021-03-15] MEDS ORDERED: THEOPHYLLINE ER 24HR PO ONE (17:30)
[2021-03-15] MEDS ORDERED: PROVENTIL 2.5 MG/3 ML NEB IH PRN (17:48)
[2021-03-15] MEDS: Neurontin 400 MG PO SCH (21:13)
[2021-03-15] MEDS: Seroquel 100 MG PO SCH (21:14)
[2021-03-15] MEDS ORDERED: NON-FORMULARY ITEM (Quetiapine Fumarate [Quetiapine Fumarate] 300 MG Tablet) PO SCH (22:00)
[2021-03-16] MEDS: solu-MEDROL IV SCH ×3 (06:30→21:14)
[2021-03-16 07:44] LABS: ALBUMIN 2.9 g/dL (3.5-5.0); ALKALINE PHOSPHATASE 66 U/L (38-126); ANION GAP 7.5 MEQ/L (5-15); BLOOD UREA NITROGEN 17 mg/dL (7-17); CHLORIDE 99 mmol/L (98-107); Calcium 8.7 mg/dL (8.4-10.2); Carbon Dioxide 35 mmol/L (22-30); EST GLOMERULAR FILTRATION RATE > 60.0 ML/MIN; Glucose 173 mg/dL (74-106); Potassium 3.6 mmol/L (3.5-5.1); SGOT/AST 25 U/L (14-36); SGPT/ALT 18 U/L (0-35); SODIUM 138 mmol/L (137-145); Total Protein 5.5 g/dL (6.3-8.2)
[2021-03-16] MEDS: Advair Hfa 115/21 Common canister IH SCH ×2 (07:56→19:17)
[2021-03-16] MEDS: DUONEB 0.5-3 MG/3 ml Neb IH SCH ×4 (07:56→19:16)
[2021-03-16 09:23] LABS: Absolute Neutrophil Ct (ANC) 21.08 (1.4-6.9); Basophil (Absolute #) 0 (0-0.4); Eosinophil (Absolute #) 0 (0-0.5); Hematocrit 29.9 % (35-47); Hemoglobin 9.2 gm/dl (12.0-16.0); Lymphocyte (Absolute #) 0.37 (1.0-4.6); Lymphocytes % 1.7 % (24.0-44.0); Mean Cell Volume 94.6 fl (78-100); Mean Corpuscular Hemoglobin 29.1 pg (26-32); Mean Corpuscular Hgb Concent. 30.8 g/dl (32-36); Mean Platelet Volume 9.8 fl (7.5-11.0); Monocyte (Absolute #) 0.17 (0.0-1.3); Monocytes % 0.8 % (0.0-12.0); Neutrophil % 97.5 % (36.0-66.0); Platelet Count 329 K/mm3 (150-450); Red Blood Count 3.16 M/mm3 (4.1-5.4); Red Cell Distribution Width 18.8 % (11.5-14.0); White Blood Count 21.6 K/mm3 (4.0-10.5)
[2021-03-16] MEDS: KLONOPIN PO SCH ×2 (10:46→21:11)
[2021-03-16] MEDS: LASIX 20 MG PO SCH (10:47)
[2021-03-16] MEDS: Pepcid 20 MG PO SCH ×2 (10:47→21:12)
[2021-03-16] MEDS: ZOLOFT 50 MG TABLET PO SCH (10:47)
[2021-03-16] MEDS: THERAGRAN MULTIVITAMIN PO SCH (10:47)
[2021-03-16] MEDS: Neurontin 400 MG PO SCH ×2 (10:47→21:13)
[2021-03-16] MEDS: Imdur 30 MG PO SCH (10:47)
[2021-03-16] MEDS: Protonix 40MG Tablet PO SCH (10:48)
[2021-03-16] MEDS: SYNTHROID 25 MCG PO SCH (10:48)
[2021-03-16] MEDS: THEOPHYLLINE ER 24HR PO SCH (10:48)
[2021-03-16 13:35] LABS: Slide Review 1 YES
[2021-03-16] MEDS ORDERED: solu-MEDROL 80 MG, Sterile H2O 10 ml 2 ML IV SCH ×2 (14:00)
[2021-03-16] MEDS: TYLENOL 325 MG PO PRN ×2 (16:20→20:05)
[2021-03-16] MEDS: Seroquel 100 MG PO SCH (21:12)
[2021-03-16] MEDS ORDERED: LEVOFLOXACIN 750MG/150ML D5W 750 MG/150 ML BAG IV SCH (22:00)
[2021-03-17] MEDS: solu-MEDROL IV SCH (05:55)
[2021-03-17] MEDS: Advair Hfa 115/21 Common canister IH SCH (07:26)
[2021-03-17] MEDS: DUONEB 0.5-3 MG/3 ml Neb IH SCH ×2 (07:26→11:10)
[2021-03-17] MEDS: KLONOPIN PO SCH (09:49)
[2021-03-17] MEDS: Pepcid 20 MG PO SCH (09:50)
[2021-03-17] MEDS: THERAGRAN MULTIVITAMIN PO SCH (09:51)
[2021-03-17] MEDS: Imdur 30 MG PO SCH (09:51)
[2021-03-17] MEDS: SYNTHROID 25 MCG PO SCH (09:53)
[2021-03-17] MEDS: ZOLOFT 50 MG TABLET PO SCH (09:53)
[2021-03-17] MEDS: LASIX 20 MG PO SCH (09:54)
[2021-03-17] MEDS: Protonix 40MG Tablet PO SCH (09:54)
[2021-03-17] MEDS: Neurontin 400 MG PO SCH (09:54)
[2021-03-17] MEDS: THEOPHYLLINE ER 24HR PO SCH (10:13)
--- NOTE | 2021-03-17 10:31 | HP ---
CHIEF COMPLAINT: Shortness of breath. HISTORY OF PRESENT ILLNESS: The patient is a 65-year-old white female who has admission about every three months with episode for exacerbation of her chronic obstructive pulmonary disease. The patient is still smoking. She reports that she began having problems with increasing shortness of breath. The patient is a poor historian and lethargic during my examination but was able to answer questions as long as she could stay awake. PAST MEDICAL/SURGICAL HISTORY: Chronic obstructive pulmonary disease. HOME MEDICATIONS: She is on prednisone at home routinely, nebulizer treatments. Her home medication list includes Albuterol on PRN basis. She takes 2 mg clonazepam twice a day. She is on Pepcid 40 mg b.i.d., Advair 1 puff b.i.d., Sertraline 200 mg tablet daily, isosorbide 30 mg a day, Zanaflex 4 mg t.i.d., levothyroxine 25 mcg a day, Seroquel 200 mg at night, nitroglycerin on a PRN basis, gabapentin 2400 mg at night and 1200 mg in the morning, Seroquel 300 mg at night. She is on theophylline at 300 mg a day. ALLERGIES: MORPHINE. OXYCODONE. PENICILLIN. BUPROPION. COCONUT. PHYSICAL EXAMINATION: The patient was afebrile with stable vital signs when she was admitted. HEENT: Normocephalic, atraumatic. Pupils equal round reactive to light. She is wearing oxygen per nasal cannula at 2 liters presently. Oropharynx is slightly dry. NECK: Supple without lymphadenopathy, thyromegaly or JVD. CHEST: Reveals wheezes approximately prison through expiration bilaterally. HEART: Regular rate and rhythm, slightly tachycardic. ABDOMEN: Soft. No palpable masses. EXTREMITIES: Without cyanosis, clubbing or edema. NEUROLOGIC: Again, the patient is awakable and will answer questions appropriately but drifts off to sleep by the end of the evaluation. LAB DATA AND TESTS: Laboratory values showed her urine to be with specific gravity of 1.19 with 16-25 white blood cells per high power field. Urine cultures are being set up. The patient had blood gas showing the pH of 7.39, pCO2 of 59, pO2 of 177 on supplemental oxygen. She had negative COVID, influenza and respiratory syncytial virus test. Procalcitonin was significantly elevated at 6.87. Troponin was normal. Her white count showed a significant elevation of white count of 39.1, hemoglobin 9.9, PLT count 363,000. There appears to be roughly 90% granulocytes on her blood count. Lactic acid was noted to be 1.5. Her BUN was 21, creatinine 1.37, sugar 96. Electrolytes showed mild abnormalities but enzymes were normal. Chest x-ray showed what appeared to be a patchy infiltrate in the right lung in the middle and lower lobes. The patient had ECG tracing which was essentially normal with a mild tachycardia. There are no acute changes noted in the 12-lead EKG. ASSESSMENT: A patient with probable pneumonia. She has been admitted for IV antibiotics of Levaquin presently. We will place her also on Solu-Medrol 125 every 8 hours and nebulizer treatments on a PRN basis. On her medication list especially due to the excessive drowsiness, we will reduce her gabapentin to 800 mg twice a day, clonazepam down to 1 mg twice a day. As well, we will check the patient's theophylline levels as it was not done in the emergency room.
[2021-03-17 10:42] LABS: Absolute Neutrophil Ct (ANC) 17.16 (1.4-6.9); Basophil (Absolute #) 0.02 (0-0.4); Eosinophil (Absolute #) 0 (0-0.5); Hematocrit 31.7 % (35-47); Hemoglobin 9.7 gm/dl (12.0-16.0); Lymphocyte (Absolute #) 0.42 (1.0-4.6); Lymphocytes % 2.3 % (24.0-44.0); Mean Cell Volume 95.8 fl (78-100); Mean Corpuscular Hemoglobin 29.3 pg (26-32); Mean Corpuscular Hgb Concent. 30.6 g/dl (32-36); Mean Platelet Volume 9.9 fl (7.5-11.0); Monocytes % 2.2 % (0.0-12.0); Neutrophil % 95.4 % (36.0-66.0); Platelet Count 358 K/mm3 (150-450); Red Blood Count 3.31 M/mm3 (4.1-5.4); Red Cell Distribution Width 18.7 % (11.5-14.0)
[2021-03-17 10:48] LABS: ALBUMIN 3.5 g/dL (3.5-5.0); ALKALINE PHOSPHATASE 63 U/L (38-126); ANION GAP 8.1 MEQ/L (5-15); BLOOD UREA NITROGEN 17 mg/dL (7-17); CHLORIDE 101 mmol/L (98-107); Calcium 9.1 mg/dL (8.4-10.2); Carbon Dioxide 36 mmol/L (22-30); Creatinine 1 0.97 mg/dL (0.52-1.04); EST GLOMERULAR FILTRATION RATE > 60.0 ML/MIN; Glucose 157 mg/dL (74-106); Potassium 3.5 mmol/L (3.5-5.1); SGOT/AST 16 U/L (14-36); SGPT/ALT 21 U/L (0-35); SODIUM 141 mmol/L (137-145); Total Protein 6.6 g/dL (6.3-8.2)
[2021-03-17 11:31] VITALS: PULSE 94; O2SAT 95
[2021-03-17] MEDS: TYLENOL 325 MG PO PRN (12:00)
[2021-03-17 12:36] VITALS: BP 132/60
--- NOTE | 2021-03-17 13:00 | HP ---
CHIEF COMPLAINT: Increasing shortness of breath. HISTORY OF PRESENT ILLNESS: The patient is a 65-year-old white female with history of chronic obstructive pulmonary disease. She is on large doses of medications particularly prednisone at 20 mg b.i.d. but despite this and nebulizer treatments at home she felt like she was getting worse and presented to the emergency room and was admitted for exacerbation of chronic obstructive pulmonary disease. PAST MEDICAL/SURGICAL HISTORY: The patient otherwise has medical history significant for congestive heart failure, coronary artery disease, hyperlipidemia, asthma, bronchitis, chronic obstructive pulmonary disease, previous pneumonia, hypothyroid, arthritis, gastroesophageal reflux disease, hernia, polyps, anxiety, bipolar depression, borderline personality disorder and osteoporosis. The patient previously had section, arm surgery, colonoscopy and heart cath x2. HOME MEDICATIONS: Currently listed as Albuterol every 4 hours PRN, clonazepam 2 mg b.i.d., famotidine 40 mg b.i.d., fluticasone inhaler twice a day, Lasix 20 mg tablet daily, gabapentin at 2400 mg in the evening and 1200 during the day, Imdur 30 mg daily, levothyroxine 25 mcg daily, Nitrostat PRN, Seroquel 200 mg in the morning, Sertraline 200 mg daily, theophylline at 300 mg daily which actually came back as 0 on her labs for a level and Zanaflex 4 mg t.i.d. ALLERGIES: MORPHINE. OXYCODONE. PENICILLIN. BUPROPION. COCONUT. PHYSICAL EXAMINATION: The patient's vital signs had showed temperature to 100.8F, pulse rate 106, respirations were 23, blood pressure 119/51. O2 saturation at 98%. HEENT: Normocephalic, atraumatic. Pupils equal round reactive to light. Extraocular movements intact. Oropharynx is pink and moist. She is wearing oxygen per nasal cannula. NECK: Supple without lymphadenopathy, thyromegaly or JVD. CHEST: Reveals bilateral wheezes. HEART: Slightly tachycardic but no murmurs, rubs or gallops heard. ABDOMEN: Soft. No palpable masses. EXTREMITIES: Without cyanosis or clubbing. There is slight edema noted in the lower extremities. NEUROLOGIC: The patient is alert, oriented x3 with no focal deficits noted. LAB DATA AND TESTS: Chest x-ray showed diffuse right lung interstitial alveolar opacities. She had CT scan of abdomen and pelvis also showing new fecal stasis with rectal impaction, duodenal diverticulum, colonic diverticulosis, atherosclerotic disease and chronic bony changes. ASSESSMENT: A patient with chronic obstructive pulmonary disease exacerbation. She has been admitted on IV Solu-Medrol, antibiotics, nebulizer treatments. She was given a bolus dose of theophylline to get her up in therapeutic range again. We will reduce her dosage of medications for concern about her mental status especially with the increasing doses of the steroids that we are giving her.
[2021-03-17 15:38] LABS: Slide Review 1 YES
--- NOTE | 2021-03-17 18:26 | PCM.DS ---
Discharge Summary Date of Admission: 03/15/21 06:18 Admitting Physician: BASHIR NOLASCO Primary Care Provider: NISHA,WEN Allergies Allergies morphine Allergy (Severe, Verified 03/14/21 22:50) Fainting oxycodone Allergy (Verified 03/14/21 22:50) Shortness of Breath Penicillins Allergy (Verified 03/14/21 22:50) oxymorphone Adverse Reaction (Severe, Verified 03/14/21 22:50) Fainting [place] Adverse Reaction (Intermediate, Verified 03/14/21 22:50) Headache bupropion HCl [From Wellbutrin] Adverse Reaction (Mild, Verified 03/14/21 22:50) [facility] Summary - Hospital Course Hospital Course: Chief Complaint Diagnosis Pneumonia Allergies Allergy/AdvReac Type Severity Reaction Status Date / Time morphine Allergy Severe Fainting Verified 03/14/21 22:50 oxycodone Allergy Shortness Verified 03/14/21 22:50 of Breath Penicillins Allergy Verified 03/14/21 22:50 oxymorphone AdvReac Severe Fainting Verified 03/14/21 22:50 [place] AdvReac Intermediate Headache Verified 03/14/21 22:50 bupropion HCl AdvReac Mild Hives Verified 03/14/21 22:50 [From Wellbutrin] Vital Signs (Last 24 hours) Temp Pulse Resp BP Pulse Ox 03/17/21 11:29 94 H 20 95 03/17/21 11:00 98.2 F 96 H 17 132/60 98 03/17/21 07:26 82 18 93 L 03/17/21 07:00 95.1 F 91 H 20 193/80 96 03/17/21 03:00 97.3 F 92 H 20 136/81 99 03/16/21 23:00 97.6 F 109 H 18 134/60 95 03/16/21 19:17 98 H 22 98 03/16/21 19:00 97.4 F 98 H 16 133/64 93 L Home Medications Medication Instructions Recorded Confirmed Last Taken Type Fluticasone Propionate [Flonase 1 spray NS BID 03/15/21 03/15/21 Unknown History NASAL] Omeprazole 40 mg PO DAILY 03/15/21 03/15/21 Unknown History Prednisone 20 mg [Deltasone 20 20 mg PO BID 03/15/21 03/15/21 Unknown History mg] Albuterol/Ipratropium 3ml Neb* 3 ml IH QIDRT 03/17/21 Unknown Rx [DUONEB 0.5-3 MG/3 ml Neb] Levofloxacin [Levofloxacin 500 500 mg PO DAILY 5 Days #5 tablet 03/17/21 Unknown Rx MG Tablet] Levothyroxine Sodium 25 Mcg 25 mcg PO DAILY tablet 03/17/21 Unknown Rx [Synthroid 25 Mcg] PANTOPRAZOLE 40 mg Tablet 40 mg PO DAILY tab 03/17/21 Unknown Rx [Protonix 40MG Tablet] Current Medications Discontinued Medications Generic Name Dose Route Start Last Admin Trade Name Freq PRN Reason Stop Dose Admin Acetaminophen 650 mg 03/15/21 07:08 03/17/21 12:00 Acetaminophen 325 Mg Tablet PO 04/14/21 07:07 650 mg Q4H PRN PRN Administration PAIN AND/OR FEVER Albuterol Sulfate 2.5 mg 03/15/21 17:48 03/16/21 01:45 Albuterol Sulfate 2.5 Mg/3 Ml Neb 04/14/21 17:47 2.5 mg Q2H PRN PRN Administration SHORTNESS OF BREATH/WHEEZING Albuterol/Ipratropium 3 ml 03/15/21 02:56 03/15/21 03:07 Ipratropium/Albuterol Sulfate 3 Ml Ampul.Neb 03/15/21 02:57 3 ml STAT ONE Administration Albuterol/Ipratropium Confirm 03/15/21 02:56 Ipratropium/Albuterol Sulfate 3 Ml Ampul.Neb Administered 03/15/21 02:57 Dose 3 ml IH .STK-MED ONE Albuterol/Ipratropium 3 ml 03/15/21 07:00 03/17/21 11:10 Ipratropium/Albuterol Sulfate 3 Ml Ampul.Neb 04/14/21 06:59 3 ml QIDRT VALERY Administration Clonazepam 1 mg 03/15/21 10:00 03/17/21 09:49 Clonazepam 2 Mg Tablet PO 04/14/21 09:59 0.5 mg BID VALERY Administration Methylprednisolone Sodium 0 mg 03/15/21 09:17 03/15/21 13:48 Succinate 125 mg/ Sterile IV 04/14/21 09:16 Not Given Water 2 ml Q8HT VALERY Famotidine 40 mg 03/15/21 10:00 03/17/21 09:50 Famotidine 20 Mg Tablet PO 04/14/21 09:59 40 mg BID VALERY Administration Furosemide 20 mg 03/15/21 10:00 03/17/21 09:54 Furosemide 20 Mg Tablet PO 04/14/21 09:59 20 mg DAILY VALERY Administration Gabapentin 800 mg 03/15/21 22:00 03/17/21 09:54 Gabapentin 400 Mg Capsule PO 04/14/21 21:59 800 mg BID VALERY Administration Levofloxacin/Dextrose 750 mg in 150 mls @ 100 mls/hr 03/15/21 00:06 03/15/21 03:04 Levofloxacin 750mg/150ml D5w IV 03/15/21 01:35 Infused STAT STA Infusion Sodium Chloride 1,000 mls @ 999 mls/hr 03/15/21 00:08 03/15/21 03:05 Sodium Chloride 0.9% 1000 Ml IV 03/15/21 01:08 Infused .Q1H1M STA Infusion Sodium Chloride Confirm 03/15/21 00:23 Sodium Chloride 0.9% 1000 Ml Administered 03/15/21 00:24 Dose 1,000 mls @ ud .ROUTE .STK-MED ONE Levofloxacin/Dextrose Confirm 03/15/21 00:23 Levofloxacin 750mg/150ml D5w Administered 03/15/21 00:24 Dose 750 mg in 150 mls @ ud IV .STK-MED ONE Levofloxacin/Dextrose 750 mg in 150 mls @ 100 mls/hr 03/16/21 22:00 03/16/21 21:43 Levofloxacin 750mg/150ml D5w IV 04/15/21 21:59 100 mls/hr Q48H VALERY Administration Isosorbide Mononitrate 30 mg 03/15/21 10:00 03/17/21 09:51 Isosorbide Mononitrate 30 Mg Tab PO 04/14/21 09:59 30 mg DAILY VALERY Administration Levothyroxine Sodium 25 mcg 03/15/21 10:00 03/17/21 09:53 Levothyroxine Sodium 25 Mcg Tablet PO 04/14/21 09:59 25 mcg DAILY VALERY Administration Methylprednisolone Sodium Succinate 125 mg 03/15/21 10:00 03/16/21 06:30 Methylprednis Sod Succ 125 Mg/2 Ml Vial IV 04/14/21 09:59 125 mg Q8HT VALERY Administration Methylprednisolone Sodium Succinate 80 mg 03/16/21 14:00 03/17/21 05:55 Methylprednis Sod Succ 125 Mg/2 Ml Vial IV 04/15/21 13:59 80 mg Q8HT VALERY Administration Multivitamins Therapeutic 1 tab 03/15/21 10:00 03/17/21 09:51 Multivitamins,Therapeutic 1 Tab Tab PO 04/14/21 09:59 1 tab DAILY VALERY Administration Nitroglycerin 0.4 mg 03/15/21 09:46 Nitroglycerin 0.4 Mg Tablet Bottle SL 04/14/21 09:45 UD PRN CHEST PAIN Non-Formulary Medication 200 mg 03/15/21 10:00 03/15/21 13:48 Sertraline Hcl 100 Mg [Zoloft 100 Mg] PO 04/14/21 09:59 Not Given DAILY VALERY Pantoprazole Sodium 40 mg 03/16/21 10:00 03/17/21 09:54 Protonix (Pantoprazole) 40 Mg Tablet PO 04/15/21 09:59 40 mg DAILY VALERY Administration Quetiapine Fumarate 300 mg 03/15/21 22:00 03/16/21 21:12 Quetiapine Fumarate 100 Mg Tablet PO 04/14/21 21:59 300 mg QHS VALERY Administration Fluticasone/Salmeterol 2 puff 03/15/21 07:00 03/17/21 07:26 Fluticasone/Salmeterol 115/21 - 120 Puff Common Canister IH 04/14/21 06:59 2 puff BIDRT VALERY Administration Sertraline HCl 200 mg 03/15/21 11:30 03/17/21 09:53 Sertraline Hcl 50 Mg Tab PO 04/14/21 11:29 200 mg DAILY VALERY Administration Theophylline 300 mg 03/15/21 10:00 03/17/21 10:13 Theophylline Anhydrous 400 Mg Tab.Er.24hr Tablet PO 04/14/21 09:59 300 mg DAILY VALERY Administration Theophylline 400 mg 03/15/21 17:30 03/15/21 17:35 Theophylline Anhydrous 400 Mg Tab.Er.24hr Tablet PO 03/15/21 17:31 400 mg ONCE ONE Administration Intake & Output (Last 24 hours) 03/15/21 03/16/21 03/17/21 03/18/21 11:59 11:59 11:59 11:59 Intake Total 120 1740 1440 240 Output Total 300 3800 200 Balance -180 -2060 1240 240 Weight 82.2 kg Microbiology Results (Last 24 hours) 03/15/21 06:48 Clean Catch Midstream Urine Culture - Final MIXED ADRIAN; 3 OR MORE TYPES. NO PREDOMINANT ORGANISM. NO FURTHER WORKUP. PLEASE RESUBMIT IF CLINICALLY INDICATED. Laboratory Results (Last 24 hours) 03/17/21 03/17/21 10:33 10:33 WBC 18.0 H RBC 3.31 L Hgb 9.7 L Hct 31.7 L MCV 95.8 MCH 29.3 MCHC 30.6 L RDW 18.7 H Plt Count 358 MPV 9.9 Gran % 95.4 H Eos # (Auto) 0 Absolute Lymphs (auto) 0.42 L Absolute Monos (auto) 0.40 Lymphocytes % 2.3 L Monocytes % 2.2 Eosinophils % 0.0 Basophils % 0.1 Absolute Granulocytes 17.16 H Basophils # 0.02 Sodium 141 Potassium 3.5 Chloride 101 Carbon Dioxide 36 H Anion Gap 8.1 BUN 17 Creatinine 0.97 Estimated GFR > 60.0 Glucose 157 H Calcium 9.1 Total Bilirubin 0.30 AST 16 ALT 21 Alkaline Phosphatase 63 Serum Total Protein 6.6 Albumin 3.5 Slides for Path Review YES Orders (Last 24 hours) Category Date Time Status Discharge Routine Discharge 03/17/21 Ordered Discharge/Telephone Order Routine Discharge 03/17/21 Active CBC W DIFF Urgent Lab 03/17/21 10:33 Completed CMP Urgent Lab 03/17/21 10:33 Completed Levofloxacin [Levofloxacin 750Mg/150Ml D5w] Med 03/16/21 22:00 Discontinued 750 mg in 150 ml IV Q48H - Vitals & Intake/Output Vital Signs: Vital Signs Temperature 98.2 F 03/17/21 11:00 Pulse Rate 94 H 03/17/21 11:29 Respiratory Rate 20 03/17/21 11:29 Blood Pressure 132/60 03/17/21 11:00 O2 Sat by Pulse Oximetry 95 03/17/21 11:29 Intake & Output: Intake & Output 03/15/21 03/16/21 03/17/21 03/18/21 11:59 11:59 11:59 11:59 Intake Total 120 1740 1440 240 Output Total 300 3800 200 Balance -180 -2059 1240 240 Weight 82.2 kg - Lab Result Diagrams: 03/17/21 10:33 03/17/21 10:33 Lab Results-Last 24 Hrs: Lab Results-Last 24 Hours 03/17/21 03/17/21 Range/Units 10:33 10:33 WBC 18.0 H (4.0-10.5) K/mm3 RBC 3.31 L (4.1-5.4) M/mm3 Hgb 9.7 L (12.0-16.0) gm/dl Hct 31.7 L (35-47) % MCV 95.8 (78-100) fl MCH 29.3 (26-32) pg MCHC 30.6 L (32-36) g/dl RDW 18.7 H (11.5-14.0) % Plt Count 358 (150-450) K/mm3 MPV 9.9 (7.5-11.0) fl Gran % 95.4 H (36.0-66.0) % Eos # (Auto) 0 (0-0.5) Absolute Lymphs (auto) 0.42 L (1.0-4.6) Absolute Monos (auto) 0.40 (0.0-1.3) Lymphocytes % 2.3 L (24.0-44.0) % Monocytes % 2.2 (0.0-12.0) % Eosinophils % 0.0 (0.00-5.0) % Basophils % 0.1 (0.0-0.4) % Absolute Granulocytes 17.16 H (1.4-6.9) Basophils # 0.02 (0-0.4) Sodium 141 (137-145) mmol/L Potassium 3.5 (3.5-5.1) mmol/L Chloride 101 (98-107) mmol/L Carbon Dioxide 36 H (22-30) mmol/L Anion Gap 8.1 (5-15) MEQ/L BUN 17 (7-17) mg/dL Creatinine 0.97 (0.52-1.04) mg/dL Estimated GFR > 60.0 ML/MIN Glucose 157 H (74-106) mg/dL Calcium 9.1 (8.4-10.2) mg/dL Total Bilirubin 0.30 (0.2-1.3) mg/dL AST 16 (14-36) U/L ALT 21 (0-35) U/L Alkaline Phosphatase 63 (38-126) U/L Serum Total Protein 6.6 (6.3-8.2) g/dL Albumin 3.5 (3.5-5.0) g/dL Slides for Path Review YES Micro Results-Entire Visit: Microbiology 03/15/21 06:48 Urine Culture - Final Clean Catch Midstream MIXED ADRIAN; 3 OR MORE TYPES. NO PREDOMINANT ORGAN ISM. NO FURTHER WORKUP. PLEASE RESUBMIT IF CLINICALLY INDICATED. 03/14/21 23:41 Blood Culture - Preliminary Blood NO GROWTH TO DATE 03/14/21 23:41 Blood Culture - Preliminary Blood NO GROWTH TO DATE - Procedures and Test Procedures and Tests throughout Hospitalization: Therapy Orders & Screens 03/15/21 03:07 Respiratory Therapy Assessment DAILY Comment: 03/15/21 06:54 Oxygen Nasal Cannula 3 lpm Comment: 03/15/21 08:14 RT Screen per Nursing Assess ONCE Comment: Protocol Order Physician Instructions: Greater than 3 points order RT Admission Screen Reason For Exam: Triggered on Admission Diagnosis: Pneumonia Diagnosis: Pneumonia Pneumonia: Yes Home O2: Yes Asthma: Yes CHF: Yes Home CPAP/BIPAP: No Home Nebs/MDI: Yes Total Points: 20 Smoking Cessation Education ONCE Comment: Diagnosis: Pneumonia Smoking Status: Current every day smoker How long have you smoked: 40+ years Have you smoked in the past 12 months: Yes Approximately how many cigarettes per day: 20 Do you dip or chew tobacco: No If,Former Smoker,when did you quit: apr 2020 Discharge Exam General Appearance: no apparent distress, alert Neurologic Exam: alert, oriented x 3, cooperative, normal mood/affect, nml cerebellar function, sensation nml, No motor deficits Eye Exam: PERRL, EOMI, eyes nml inspection Ears, Nose, Throat Exam: normal ENT inspection, pharynx normal, moist mucous me mbranes Neck Exam: normal inspection, non-tender, supple, full range of motion Respiratory Exam: diminished breath sounds, No respiratory distress Cardiovascular Exam: regular rate/rhythm, normal heart sounds Gastrointestinal/Abdomen Exam: soft, No tenderness, No mass Pelvic Exam: deferred Rectal Exam: deferred Back Exam: normal inspection, normal range of motion, No CVA tenderness, No vertebral tenderness Extremity Exam: normal inspection, normal range of motion Skin Exam: normal color, warm, dry Final Diagnosis/Problem List - Final Discharge Diagnosis/Problem (1) Chronic bronchitis with acute exacerbation Status: Acute Priority: High Assessment & Plan: Chief Complaint Diagnosis Pneumonia Allergies Allergy/AdvReac Type Severity Reaction Status Date / Time morphine Allergy Severe Fainting Verified 03/14/21 22:50 oxycodone Allergy Shortness Verified 03/14/21 22:50 of Breath Penicillins Allergy Verified 03/14/21 22:50 oxymorphone AdvReac Severe Fainting Verified 03/14/21 22:50 [place] AdvReac Intermediate Headache Verified 03/14/21 22:50 bupropion HCl AdvReac Mild Hives Verified 03/14/21 22:50 [From Wellbutrin] Vital Signs (Last 24 hours) Temp Pulse Resp BP Pulse Ox 03/17/21 11:29 94 H 20 95 03/17/21 11:00 98.2 F 96 H 17 132/60 98 03/17/21 07:26 82 18 93 L 03/17/21 07:00 95.1 F 91 H 20 193/80 96 03/17/21 03:00 97.3 F 92 H 20 136/81 99 03/16/21 23:00 97.6 F 109 H 18 134/60 95 03/16/21 19:17 98 H 22 98 03/16/21 19:00 97.4 F 98 H 16 133/64 93 L Home Medications Medication Instructions Recorded Confirmed Last Taken Type Fluticasone Propionate [Flonase 1 spray NS BID 03/15/21 03/15/21 Unknown History NASAL] Omeprazole 40 mg PO DAILY 03/15/21 03/15/21 Unknown History Prednisone 20 mg [Deltasone 20 20 mg PO BID 03/15/21 03/15/21 Unknown History mg] Albuterol/Ipratropium 3ml Neb* 3 ml IH QIDRT 03/17/21 Unknown Rx [DUONEB 0.5-3 MG/3 ml Neb] Levofloxacin [Levofloxacin 500 500 mg PO DAILY 5 Days #5 tablet 03/17/21 Unknown Rx MG Tablet] Levothyroxine Sodium 25 Mcg 25 mcg PO DAILY tablet 03/17/21 Unknown Rx [Synthroid 25 Mcg] PANTOPRAZOLE 40 mg Tablet 40 mg PO DAILY tab 03/17/21 Unknown Rx [Protonix 40MG Tablet] Current Medications Discontinued Medications Generic Name Dose Route Start Last Admin Trade Name Freq PRN Reason Stop Dose Admin Acetaminophen 650 mg 03/15/21 07:08 03/17/21 12:00 Acetaminophen 325 Mg Tablet PO 04/14/21 07:07 650 mg Q4H PRN PRN Administration PAIN AND/OR FEVER Albuterol Sulfate 2.5 mg 03/15/21 17:48 03/16/21 01:45 Albuterol Sulfate 2.5 Mg/3 Ml [facility] 04/14/21 17:47 2.5 mg Q2H PRN PRN Administration SHORTNESS OF BREATH/WHEEZING Albuterol/Ipratropium 3 ml 03/15/21 02:56 03/15/21 03:07 Ipratropium/Albuterol Sulfate 3 Ml Ampul.[facility] 03/15/21 02:57 3 ml STAT ONE Administration Albuterol/Ipratropium Confirm 03/15/21 02:56 Ipratropium/Albuterol Sulfate 3 Ml Ampul.Neb Administered 03/15/21 02:57 Dose 3 ml IH .STK-MED ONE Albuterol/Ipratropium 3 ml 03/15/21 07:00 03/17/21 11:10 Ipratropium/Albuterol Sulfate 3 Ml Ampul.[facility] 04/14/21 06:59 3 ml QIDRT VALERY Administration Clonazepam 1 mg 03/15/21 10:00 03/17/21 09:49 Clonazepam 2 Mg Tablet PO 04/14/21 09:59 0.5 mg BID VALERY Administration Methylprednisolone Sodium 0 mg 03/15/21 09:17 03/15/21 13:48 Succinate 125 mg/ Sterile IV 04/14/21 09:16 Not Given Water 2 ml Q8HT VALERY Famotidine 40 mg 03/15/21 10:00 03/17/21 09:50 Famotidine 20 Mg Tablet PO 04/14/21 09:59 40 mg BID VALERY Administration Furosemide 20 mg 03/15/21 10:00 03/17/21 09:54 Furosemide 20 Mg Tablet PO 04/14/21 09:59 20 mg DAILY VALERY Administration Gabapentin 800 mg 03/15/21 22:00 03/17/21 09:54 Gabapentin 400 Mg Capsule PO 04/14/21 21:59 800 mg BID VALERY Administration Levofloxacin/Dextrose 750 mg in 150 mls @ 100 mls/hr 03/15/21 00:06 03/15/21 03:04 Levofloxacin 750mg/150ml D5w IV 03/15/21 01:35 Infused STAT STA Infusion Sodium Chloride 1,000 mls @ 999 mls/hr 03/15/21 00:08 03/15/21 03:05 Sodium Chloride 0.9% 1000 Ml IV 03/15/21 01:08 Infused .Q1H1M STA Infusion Sodium Chloride Confirm 03/15/21 00:23 Sodium Chloride 0.9% 1000 Ml Administered 03/15/21 00:24 Dose 1,000 mls @ ud .ROUTE .STK-MED ONE Levofloxacin/Dextrose Confirm 03/15/21 00:23 Levofloxacin 750mg/150ml D5w Administered 03/15/21 00:24 Dose 750 mg in 150 mls @ ud IV .STK-MED ONE Levofloxacin/Dextrose 750 mg in 150 mls @ 100 mls/hr 03/16/21 22:00 03/16/21 21:43 Levofloxacin 750mg/150ml D5w IV 04/15/21 21:59 100 mls/hr Q48H VALERY Administration Isosorbide Mononitrate 30 mg 03/15/21 10:00 03/17/21 09:51 Isosorbide Mononitrate 30 Mg Tab PO 04/14/21 09:59 30 mg DAILY VALERY Administration Levothyroxine Sodium 25 mcg 03/15/21 10:00 03/17/21 09:53 Levothyroxine Sodium 25 Mcg Tablet PO 04/14/21 09:59 25 mcg DAILY VALERY Administration Methylprednisolone Sodium Succinate 125 mg 03/15/21 10:00 03/16/21 06:30 Methylprednis Sod Succ 125 Mg/2 Ml Vial IV 04/14/21 09:59 125 mg Q8HT VALERY Administration Methylprednisolone Sodium Succinate 80 mg 03/16/21 14:00 03/17/21 05:55 Methylprednis Sod Succ 125 Mg/2 Ml Vial IV 04/15/21 13:59 80 mg Q8HT VALERY Administration Multivitamins Therapeutic 1 tab 03/15/21 10:00 03/17/21 09:51 Multivitamins,Therapeutic 1 Tab Tab PO 04/14/21 09:59 1 tab DAILY VALERY Administration Nitroglycerin 0.4 mg 03/15/21 09:46 Nitroglycerin 0.4 Mg Tablet Bottle SL 04/14/21 09:45 UD PRN CHEST PAIN Non-Formulary Medication 200 mg 03/15/21 10:00 03/15/21 13:48 Sertraline Hcl 100 Mg [Zoloft 100 Mg] PO 04/14/21 09:59 Not Given DAILY VALERY Pantoprazole Sodium 40 mg 03/16/21 10:00 03/17/21 09:54 Protonix (Pantoprazole) 40 Mg Tablet PO 04/15/21 09:59 40 mg DAILY VALERY Administration Quetiapine Fumarate 300 mg 03/15/21 22:00 03/16/21 21:12 Quetiapine Fumarate 100 Mg Tablet PO 04/14/21 21:59 300 mg QHS VALERY Administration Fluticasone/Salmeterol 2 puff 03/15/21 07:00 03/17/21 07:26 Fluticasone/Salmeterol 115/21 - 120 Puff Common Canister IH 04/14/21 06:59 2 puff BIDRT VALERY Administration Sertraline HCl 200 mg 03/15/21 11:30 03/17/21 09:53 Sertraline Hcl 50 Mg Tab PO 04/14/21 11:29 200 mg DAILY VALERY Administration Theophylline 300 mg 03/15/21 10:00 03/17/21 10:13 Theophylline Anhydrous 400 Mg Tab.Er.24hr Tablet PO 04/14/21 09:59 300 mg DAILY VALERY Administration Theophylline 400 mg 03/15/21 17:30 03/15/21 17:35 Theophylline Anhydrous 400 Mg Tab.Er.24hr Tablet PO 03/15/21 17:31 400 mg ONCE ONE Administration Intake & Output (Last 24 hours) 03/15/21 03/16/21 03/17/21 03/18/21 11:59 11:59 11:59 11:59 Intake Total 120 1740 1440 240 Output Total 300 3800 200 Balance -180 -2060 1240 240 Weight 82.2 kg Microbiology Results (Last 24 hours) 03/15/21 06:48 Clean Catch Midstream Urine Culture - Final MIXED ADRIAN; 3 OR MORE TYPES. NO PREDOMINANT ORGANISM. NO FURTHER WORKUP. PLEASE RESUBMIT IF CLINICALLY INDICATED. Laboratory Results (Last 24 hours) 03/17/21 03/17/21 10:33 10:33 WBC 18.0 H RBC 3.31 L Hgb 9.7 L Hct 31.7 L MCV 95.8 MCH 29.3 MCHC 30.6 L RDW 18.7 H Plt Count 358 MPV 9.9 Gran % 95.4 H Eos # (Auto) 0 Absolute Lymphs (auto) 0.42 L Absolute Monos (auto) 0.40 Lymphocytes % 2.3 L Monocytes % 2.2 Eosinophils % 0.0 Basophils % 0.1 Absolute Granulocytes 17.16 H Basophils # 0.02 Sodium 141 Potassium 3.5 Chloride 101 Carbon Dioxide 36 H Anion Gap 8.1 BUN 17 Creatinine 0.97 Estimated GFR > 60.0 Glucose 157 H Calcium 9.1 Total Bilirubin 0.30 AST 16 ALT 21 Alkaline Phosphatase 63 Serum Total Protein 6.6 Albumin 3.5 Slides for Path Review YES Orders (Last 24 hours) Category Date Time Status Discharge Routine Discharge 03/17/21 Ordered Discharge/Telephone Order Routine Discharge 03/17/21 Active CBC W DIFF Urgent Lab 03/17/21 10:33 Completed CMP Urgent Lab 03/17/21 10:33 Completed Levofloxacin [Levofloxacin 750Mg/150Ml D5w] Med 03/16/21 22:00 Discontinued 750 mg in 150 ml IV Q48H Code(s): J20.9 - ACUTE BRONCHITIS, UNSPECIFIED; J42 - UNSPECIFIED CHRONIC BRONCHITIS (2) Acute respiratory failure Status: Acute Code(s): J96.00 - ACUTE RESPIRATORY FAILURE, UNSP W HYPOXIA OR HYPERCAPNIA - Discharge Disposition: Home, Self-Care Condition: Stable Prescriptions: New Levofloxacin [Levofloxacin 500 MG Tablet] 500 mg PO DAILY 5 Days #5 t ablet Albuterol/Ipratropium 3ml Neb* [DUONEB 0.5-3 MG/3 ml Neb] 3 ml IH QIDRT PANTOPRAZOLE 40 mg Tablet [Protonix 40MG Tablet] 40 mg PO DAILY tab Levothyroxine Sodium 25 Mcg [Synthroid 25 Mcg] 25 mcg PO DAILY tablet Continue Clonazepam 0.5 mg [Klonopin 0.5 MG] 2 mg PO BID Fluticasone/Salmeterol Disc [Advair/Wixella 250-50 Diskus 14 Dose] 1 puff IH BID Famotidine 20 mg [Pepcid 20 MG] 20 mg PO BID Albuterol/Ipratropium Mdi [Combivent Inhaler] 1 puff IH QID Sertraline HCl 100 mg [Zoloft 100 MG] 200 mg PO DAILY Isosorbide Mononitrate 30 mg [Imdur 30 MG] 30 mg PO DAILY Tizanidine HCl 4 mg [Zanaflex 4 MG] 4 mg PO TID Levothyroxine Sodium 25 Mcg [Synthroid 25 Mcg] 25 mcg PO DAILY Quetiapine Fumarate [Seroquel] 200 mg PO QAM Vits W-Ca,Fe,FA(<1Mg) [] 1 each PO DAILY Nitroglycerin 0.4 mg Tablet [Nitrostat 0.4 MG Tablet] 0.4 mg SL UD PRN PRN Reason: Chest Pain Albuterol Common Canister [Ventolin Common Canister] 2 puff IH QID Quetiapine Fumarate 300 mg PO QHS Gabapentin 1,200 mg PO QAM Gabapentin [Neurontin] 2,400 mg PO HS Theophylline Anhydrous 300 mg PO DAILY Furosemide [Lasix] 20 mg PO DAILY #30 tablet Prednisone 20 mg [Deltasone 20 mg] 20 mg PO BID Omeprazole 40 mg PO DAILY Fluticasone Propionate [Flonase NASAL] 1 spray NS BID Instructions: Pneumonia, Adult (DC) Additional Instructions: PATIENT HAS [facility]. PLEASE FAX ALL D/C INFORMATION TO [phone]. Follow up with: WEN CAMERON MD [Primary Care Provider] - 1 Week
== END 2021-03-17 14:03 | disposition home or self-care (01) | DRG 202 ==
LOC: ED 22:16 → MED SURG 03-15 06:18
PROVIDERS: ADMIT Family Medicine; ATTEND General Practice
DX: J20.9 Acute bronchitis, unspecified (principal); J96.00 Acute respiratory failure, unspecified whether with hypoxia or hypercapnia; J42 Unspecified chronic bronchitis; I50.9 Heart failure, unspecified; I25.10 Atherosclerotic heart disease of native coronary artery without angina pectoris; E78.00 Pure hypercholesterolemia, unspecified; E03.9 Hypothyroidism, unspecified; Z72.0 Tobacco use; Z79.899 Other long term (current) drug therapy
CPT/HCPCS: 0241U; 36000; 36415; 36600; 71045; 80053; 80198; 81001; 82375; 82803; 83605; 84145; 84484; 85025; 87040; 87086; 93005; 94640; 94760; 94762; 96360; 96365; 99284; J1956; J2930; J7609; A9270-GY

== ENCOUNTER 2021-04-07 17:23 | Observation (INO) | payer MEDICARE ==
[2021-04-07] MEDS ORDERED: DUONEB 0.5-3 MG/3 ml Neb IH ONE ×2 (17:51→18:24)
[2021-04-07 18:54] LABS: Absolute Neutrophil Ct (ANC) 21.39 (1.4-6.9); Basophil (Absolute #) 0.03 (0-0.4); Eosinophil % 0.1 % (0.00-5.0); Eosinophil (Absolute #) 0.03 (0-0.5); Hematocrit 37.9 % (35-47); Hemoglobin 11.2 gm/dl (12.0-16.0); Lymphocyte (Absolute #) 0.63 (1.0-4.6); Lymphocytes % 2.7 % (24.0-44.0); Mean Cell Volume 96.7 fl (78-100); Mean Corpuscular Hemoglobin 28.6 pg (26-32); Mean Corpuscular Hgb Concent. 29.6 g/dl (32-36); Mean Platelet Volume 9.9 fl (7.5-11.0); Monocyte (Absolute #) 1.02 (0.0-1.3); Monocytes % 4.4 % (0.0-12.0); Neutrophil % 92.7 % (36.0-66.0); Platelet Count 359 K/mm3 (150-450); Red Blood Count 3.92 M/mm3 (4.1-5.4); Red Cell Distribution Width 16.1 % (11.5-14.0); White Blood Count 23.1 K/mm3 (4.0-10.5)
[2021-04-07 19:26] LABS: ALBUMIN 3.5 g/dL (3.5-5.0); ALKALINE PHOSPHATASE 67 U/L (38-126); ANION GAP 8.2 MEQ/L (5-15); BLOOD UREA NITROGEN 11 mg/dL (7-17); CHLORIDE 100 mmol/L (98-107); Calcium 9.4 mg/dL (8.4-10.2); Carbon Dioxide 36 mmol/L (22-30); Creatinine 1 0.88 mg/dL (0.52-1.04); EST GLOMERULAR FILTRATION RATE > 60.0 ML/MIN; Glucose 87 mg/dL (74-106); NT PRO BNP 253 pg/mL (0-900); Potassium 3.7 mmol/L (3.5-5.1); SGOT/AST 15 U/L (14-36); SGPT/ALT 15 U/L (0-35); SODIUM 141 mmol/L (137-145); Total Protein 6.2 g/dL (6.3-8.2)
--- NOTE | 2021-04-07 20:03 | ERPHSYRPT ---
- History of Present Illness Time Seen by Provider: 04/07/21 17:45 Source: patient Exam Limitations: no limitations Patient Subjective Stated Complaint: SOB Triage Nursing Assessment: Patient brought back to ED via EMS and transferred to bed with assist of 3. Patient A+O X3. Patient's skin pink, warm and dry. Patient complains of SOB that has gotten worse today. Patient wears home O2 at 3 liters per N/C at all times at home. Patient noted to have wheezing throughout. Physician History: Patient is a 65-year-old female with history of COPD presents to our ED via EMS for evaluation of wheezing. Patient requires oxygen at home. Per report patient is on 3 L of oxygen at home 24 hours/day. Patient shortness of breath is typical of her usual asthma exacerbation. Patient was treated with a DuoNeb in route. This helped improve patient symptoms but did not resolve symptoms. Patient still experiencing some shortness of breath. Symptoms are constant. Symptoms are moderate in intensity. No specific improving or worsening factors. Patient voices no other complaints or concerns at this time. Timing/Duration: today Activities at Onset: activity Severity of Dyspnea-Max: moderate Severity of Dyspnea-Current: mild Possible Cause: frequent episodes Modifying Factors: Improves With: albuterol inhaler Associated Symptoms: cough, No loss of appetite, No wheezing, No hemoptysis, No leg swelling, No muscle spasms feet, No painful breathing, No productive cough, No tightness, No tingling face Allergies/Adverse Reactions: morphine Allergy (Severe, Verified 04/07/21 17:35) Fainting oxycodone Allergy (Verified 04/07/21 17:35) Shortness of Breath Penicillins Allergy (Verified 04/07/21 17:35) oxymorphone Adverse Reaction (Severe, Verified 04/07/21 17:35) Fainting Coconut Adverse Reaction (Intermediate, Verified 04/07/21 17:35) Headache bupropion HCl [From Wellbutrin] Adverse Reaction (Mild, Verified 04/07/21 17:35) Hives Home Medications: Albuterol/Ipratropium Mdi [Combivent Inhaler] 1 puff IH QID 12/29/12 [History] Clonazepam 0.5 mg [Klonopin 0.5 MG] 2 mg PO DAILY 12/29/12 [History] Famotidine 20 mg [Pepcid 20 MG] 20 mg PO DAILY 12/29/12 [History] Fluticasone/Salmeterol Disc [Advair/Wixella 250-50 Diskus 14 Dose] 1 puff IH BID 12/29/12 [History] Sertraline HCl 100 mg [Zoloft 100 MG] 200 mg PO DAILY 12/17/13 [History] Isosorbide Mononitrate 30 mg [Imdur 30 MG] 30 mg PO DAILY 11/05/14 [History] Tizanidine HCl 4 mg [Zanaflex 4 MG] 4 mg PO TID 01/16/15 [History] Quetiapine Fumarate [Seroquel] 200 mg PO BID 10/17/15 [History] Vits W-Ca,Fe,FA(<1Mg) [] 1 each PO DAILY 10/18/15 [History] Nitroglycerin 0.4 mg Tablet [Nitrostat 0.4 MG Tablet] 0.4 mg SL UD PRN 11/15/15 [History] Albuterol Common Canister [Ventolin Common Canister] 2 puff IH QID 07/08/19 [History] Quetiapine Fumarate 300 mg PO QHS 07/08/19 [History] Gabapentin 1,200 mg PO QAM 04/08/20 [History] Gabapentin [Neurontin] 2,400 mg PO HS 04/08/20 [History] Theophylline Anhydrous 300 mg PO DAILY 12/23/20 [History] Fluticasone Propionate [Flonase NASAL] 1 spray NS BID 03/15/21 [History] Omeprazole 40 mg PO DAILY 03/15/21 [History] Prednisone 20 mg [Deltasone 20 mg] 20 mg PO BID 03/15/21 [History] Hx Tetanus, Diphtheria Vaccination/Date Given: Yes Hx Influenza Vaccination/Date Given: Yes Hx Pneumococcal Vaccination/Date Given: Yes Immunizations Up to Date: Yes Travel Risk - International Travel Have you traveled outside of the country in past 3 weeks: No - Coronavirus Screening Are you exhibiting any of the following symptoms?: Yes Symptoms: Fever, Cough: New Onset, Shortness of Breath Close contact with a COVID-19 positive Pt in past 14-21 Days: No - Vaccine Status Have you recieved a Covid-19 vaccination: No - Vaccination Dates Comment: . - Review of Systems Constitutional: No Symptoms, No Fever, No Chills Eyes: No Symptoms Ears, Nose, & Throat: No Symptoms Respiratory: No Symptoms, No Cough, No Dyspnea Cardiac: No Symptoms, No Chest Pain, No Edema, No Syncope Abdominal/Gastrointestinal: No Symptoms, No Abdominal Pain, No Nausea, No Vomiting, No Diarrhea Genitourinary Symptoms: No Symptoms, No Dysuria Musculoskeletal: No Symptoms, No Back Pain, No Neck Pain Skin: No Symptoms, No Rash Neurological: No Symptoms, No Dizziness, No Focal Weakness, No Sensory Changes Psychological: No Symptoms Endocrine: No Symptoms Hematologic/Lymphatic: No Symptoms Immunological/Allergic: No Symptoms All Other Systems: Reviewed and Negative - Past Medical History Pertinent Past Medical History: Yes Neurological History: Migraines ENT History: No Pertinent History Cardiac History: Congestive Heart Failure, Coronary Artery Disease, High Cholesterol Respiratory History: Asthma, Bronchitis, COPD, Pneumonia Endocrine Medical History: Hypothyroidism Musculoskeletal History: Arthritis GI Medical History: GERD, Hernia, Polyps History: No Pertinent History Psycho-Social History: Anxiety, Bipolar, Depression Female Reproductive Disorders: Fibroids Other Medical History: 2 LEAKY VALVES. BORDERLINE PERSONALITY DISORDER, PTSD, manic depressive. bone deficiency - Past Surgical History Past Surgical History: Yes Neuro Surgical History: No Pertinent History Cardiac: Cardiac Catheterization Respiratory: No Pertinent History Gastrointestinal: Other Genitourinary: No Pertinent History Musculoskeletal: Other Female Surgical History: Section Other Surgical History: ARM SURGERY-- left wrist laceration from a glass door,, 2 c-sections, EGD with dilitation, colonoscopy, heart cath x 2 - Social History Smoking Status: Former smoker How long have you smoked: 40+ years Exposure to second hand smoke: Yes Alcohol Use: Socially Drug Use: none Patient Lives Alone: No Significant Family History: no pertinent family hx - Nursing Vital Signs Nursing Vital Signs: Initial Vital Signs Pulse Rate 123 H 04/07/21 17:36 Respiratory Rate 30 H 04/07/21 17:36 Blood Pressure 102/79 04/07/21 17:36 O2 Sat by Pulse Oximetry 96 04/07/21 17:36 Pain Scale Pain Intensity 0 - Physical Exam General Appearance: no apparent distress, alert Eye Exam: PERRL/EOMI Neck Exam: normal inspection, supple Respiratory Exam: airway intact, diminished breath sounds, wheezing, other (Wheezing throughout bilateral lung rao.), No chest tenderness, No respiratory distress Cardiovascular/Chest Exam: normal heart sounds, regular rate/rhythm Abdominal/Gastrointestinal Exam: soft, No tenderness, No distention, No mass Extremity Exam: non-tender, normal range of motion, normal inspection, no calf tenderness, no pedal edema Peripheral Pulses Exam: dorsalis-pedis (R): 2+, dorsalis-pedis (L): 2+ Neurologic Exam: alert, oriented x 3, cooperative, loose hand packer II-XII nml as tested, sensation nml, No motor deficits Skin Exam: normal color, warm, No dry Lymphatic Exam: No adenopathy SpO2 Interpretation: normal SpO2: 95 O2 Delivery: Nasal Cannula - Course Nursing assessment & vital signs reviewed: Yes - Radiology Exams Chest X-ray Interpretation: Interpreted by me (Left pulmonary opacities. Normal cardiac silhouette. Intact bony thorax.) Ordered Tests: Active Orders 24 hr Category Date Time Status Trial Lawyer STAT Care 04/07/21 17:47 Active EKG-ER Only STAT Care 04/07/21 17:45 Active IV Insertion STAT Care 04/07/21 17:45 Active Oxygen-ED Only Nasal Cannula 3 lpm Care 04/07/21 20:20 Active Pulse Oximetry (ED) STAT Care 04/07/21 17:45 Active CHEST 1 VIEW (PORTABLE) Stat Exams 04/07/21 17:47 Taken BLOOD CULTURE Stat Lab 04/07/21 18:45 Received CBC W DIFF Stat Lab 04/07/21 18:40 Completed CMP Stat Lab 04/07/21 18:40 Completed Lactic Acid Stat Lab 04/07/21 21:30 Completed NT PRO BNP Stat Lab 04/07/21 18:40 Completed TROPONIN Q3H Lab 04/07/21 18:40 Completed TROPONIN Q3H Lab 04/07/21 21:15 Completed TROPONIN Q3H Lab 04/08/21 00:00 Ordered TROPONIN Q3H Lab 04/08/21 03:00 Ordered TROPONIN Q3H Lab 04/08/21 06:00 Ordered UA W/RFX UR CULTURE Stat Lab 04/07/21 17:48 Ordered Respiratory Therapy Assessment DAILY RT 04/07/21 18:44 Completed Medication Summary Generic Name Dose Route Start Last Admin Trade Name Yordan PRN Reason Stop Dose Admin Doxycycline Hyclate 100 mg/ 100 mls @ 100 mls/hr 04/07/21 22:00 04/07/21 21:07 Dextrose IV 05/07/21 21:59 100 mls/hr Q12HT VALERY Administration Discontinued Medications Generic Name Dose Route Start Last Admin Trade Name Yordan PRN Reason Stop Dose Admin Albuterol/Ipratropium 3 ml 04/07/21 17:51 04/07/21 18:43 Ipratropium/Albuterol Sulfate 3 Ml Ampul.Neb IH 04/07/21 17:52 3 ml STAT ONE Administration Albuterol/Ipratropium Confirm 04/07/21 18:24 Ipratropium/Albuterol Sulfate 3 Ml Ampul.Neb Administered 04/07/21 18:25 Dose 3 ml IH .STK-MED ONE Doxycycline Hyclate Confirm 04/07/21 21:02 Doxycycline Hyclate 100 Mg/Vial Injection Administered 04/07/21 21:03 Dose 100 mg IV .STK-MED ONE Dextrose Confirm 04/07/21 21:02 D5w 100ml Mini Bag 100 Ml Administered 04/07/21 21:03 Dose 100 mls @ ud IV .STK-MED ONE Lab/Rad Data: Laboratory Result Diagrams 04/07/21 18:40 04/07/21 18:40 Laboratory Results 04/07/21 04/07/21 04/07/21 Range/Units 21:30 21:15 20:45 WBC (4.0-10.5) K/mm3 RBC (4.1-5.4) M/mm3 Hgb (12.0-16.0) gm/dl Hct (35-47) % MCV (78-100) fl MCH (26-32) pg MCHC (32-36) g/dl RDW (11.5-14.0) % Plt Count (150-450) K/mm3 MPV (7.5-11.0) fl Gran % (36.0-66.0) % Eos # (Auto) (0-0.5) Absolute Lymphs (auto) (1.0-4.6) Absolute Monos (auto) (0.0-1.3) Lymphocytes % (24.0-44.0) % Monocytes % (0.0-12.0) % Eosinophils % (0.00-5.0) % Basophils % (0.0-0.4) % Absolute Granulocytes (1.4-6.9) Basophils # (0-0.4) Sodium (137-145) mmol/L Potassium (3.5-5.1) mmol/L Chloride (98-107) mmol/L Carbon Dioxide (22-30) mmol/L Anion Gap (5-15) MEQ/L BUN (7-17) mg/dL Creatinine (0.52-1.04) mg/dL Estimated GFR ML/MIN Glucose (74-106) mg/dL Lactic Acid 2.0 (0.4-2.0) Calcium (8.4-10.2) mg/dL Total Bilirubin (0.2-1.3) mg/dL AST (14-36) U/L ALT (0-35) U/L Alkaline Phosphatase (38-126) U/L Troponin I 0.012 (0.000-0.034) ng/mL NT-Pro-B Natriuret Pep (0-900) pg/mL Serum Total Protein (6.3-8.2) g/dL Albumin (3.5-5.0) g/dL Influenza Type A Ag NEGATIVE (NEGATIVE) Influenza Type B Ag NEGATIVE (NEGATIVE) RSV (PCR) NEGATIVE (Negative) SARS-CoV-2 (PCR) NEGATIVE (NEGATIVE) 04/07/21 04/07/21 04/07/21 Range/Units 18:40 18:40 18:40 WBC 23.1 H (4.0-10.5) K/mm3 RBC 3.92 L (4.1-5.4) M/mm3 Hgb 11.2 L (12.0-16.0) gm/dl Hct 37.9 (35-47) % MCV 96.7 (78-100) fl MCH 28.6 (26-32) pg MCHC 29.6 L (32-36) g/dl RDW 16.1 H (11.5-14.0) % Plt Count 359 (150-450) K/mm3 MPV 9.9 (7.5-11.0) fl Gran % 92.7 H (36.0-66.0) % Eos # (Auto) 0.03 (0-0.5) Absolute Lymphs (auto) 0.63 L (1.0-4.6) Absolute Monos (auto) 1.02 (0.0-1.3) Lymphocytes % 2.7 L (24.0-44.0) % Monocytes % 4.4 (0.0-12.0) % Eosinophils % 0.1 (0.00-5.0) % Basophils % 0.1 (0.0-0.4) % Absolute Granulocytes 21.39 H (1.4-6.9) Basophils # 0.03 (0-0.4) Sodium 141 (137-145) mmol/L Potassium 3.7 (3.5-5.1) mmol/L Chloride 100 (98-107) mmol/L Carbon Dioxide 36 H (22-30) mmol/L Anion Gap 8.2 (5-15) MEQ/L BUN 11 (7-17) mg/dL Creatinine 0.88 (0.52-1.04) mg/dL Estimated GFR > 60.0 ML/MIN Glucose 87 (74-106) mg/dL Lactic Acid (0.4-2.0) Calcium 9.4 (8.4-10.2) mg/dL Total Bilirubin 0.40 (0.2-1.3) mg/dL AST 15 (14-36) U/L ALT 15 (0-35) U/L Alkaline Phosphatase 67 (38-126) U/L Troponin I 0.012 (0.000-0.034) ng/mL NT-Pro-B Natriuret Pep 253 (0-900) pg/mL Serum Total Protein 6.2 L (6.3-8.2) g/dL Albumin 3.5 (3.5-5.0) g/dL Influenza Type A Ag (NEGATIVE) Influenza Type B Ag (NEGATIVE) RSV (PCR) (Negative) SARS-CoV-2 (PCR) (NEGATIVE) - Progress Progress: improved Air Movement: good Progress Note: Patient reassessed. She feels better. Patient ambulated in our ED. Patient became hypoxic into the low 90s in spite of wearing 3 L oxygen nasal cannula. Patient was in mild to moderate respiratory distress upon completion of her a mbulation. Chest x-ray reveals a left pulmonary infiltrate. Blood cultures obtained. Antibiotics infused. Case discussed with Dr. Garrison who accepts admission to observation. Plan of care discussed with patient. She agrees to admission [facility] for further evaluation and treatment. Covid test negative Portions of this note were created with voice recognition technology. There may be grammatical, spelling, punctuation or sound alike errors 04/07/21 22:34 Blood Culture(s) Obtained: Yes Antibiotics given: Yes Discussed with : Bandar Will see patient in: hospital (observation) Counseled pt/family regarding: lab results, diagnosis, rad results - Departure Departure Disposition: Observation Clinical Impression: Pneumonia, COPD exacerbation Condition: Stable Critical Care Time: No
[2021-04-07] MEDS ORDERED: VIBRAMYCIN 100 MG IV ONE (21:02)
[2021-04-07] MEDS ORDERED: D5w 100ML Mini Bag 100 ML 100 ML IV ONE (21:02)
[2021-04-07] MEDS ORDERED: VIBRAMYCIN 100 MG*** 100 MG in Dextrose 5%/Water IV Soln. 100ML PLUS BAG 100 ML IV SCH (22:00)
[2021-04-07 22:12] LABS: INFLUENZA A NEGATIVE (NEGATIVE); INFLUENZA B NEGATIVE (NEGATIVE); RESPIRATORY SYNCTIAL VIRUS NEGATIVE (Negative); SARS-CoV-2 Xpert Express NEGATIVE (NEGATIVE)
[2021-04-08] MEDS ORDERED: clonazePAM PO ONE
[2021-04-08] MEDS ORDERED: Neurontin 400 MG PO ONE (00:01)
[2021-04-08] MEDS ORDERED: Seroquel 100 MG PO ONE (00:03)
[2021-04-08] MEDS ORDERED: Zanaflex 4 MG PO ONE (00:05)
[2021-04-08] MEDS ORDERED: KLONOPIN PO ONE (00:10)
[2021-04-08] MEDS ORDERED: solu-MEDROL ONE ×2 (00:16→06:37)
[2021-04-08] MEDS ORDERED: Sterile H2O 10 ml IJ ONE ×2 (00:18→06:38)
[2021-04-08] MEDS: DUONEB 0.5-3 MG/3 ml Neb IH PRN (01:05)
[2021-04-08 01:06] LABS: Appearance CLEAR (CLEAR); Bilirubin NEGATIVE (NEGATIVE); Blood NEGATIVE Ery/ul (0-5); Glucose NEGATIVE (NEGATIVE); Ketones NEGATIVE (NEGATIVE); Leukocyte Esterase NEGATIVE (NEGATIVE); Nitrite NEGATIVE (NEGATIVE); Protein,Urine Dip NEGATIVE (Negative); Specific Gravity 1.005 (1.005-1.025); Urobilinogen NEGATIVE mg/dL (0-1)
[2021-04-08] MEDS: PROVENTIL 2.5 MG/3 ML NEB IH SCH ×6 (01:12→18:48)
[2021-04-08] MEDS: solu-MEDROL 80 MG, Sterile H2O 10 ml 2 ML IV SCH ×10 (01:16→23:11)
[2021-04-08 03:21] LABS: Hematocrit 31.7 % (35-47); Hemoglobin 9.6 gm/dl (12.0-16.0); Mean Cell Volume 96.4 fl (78-100); Mean Corpuscular Hemoglobin 29.2 pg (26-32); Mean Corpuscular Hgb Concent. 30.3 g/dl (32-36); Mean Platelet Volume 9.3 fl (7.5-11.0); Platelet Count 315 K/mm3 (150-450); Red Blood Count 3.29 M/mm3 (4.1-5.4); Red Cell Distribution Width 16.3 % (11.5-14.0); White Blood Count 24.9 K/mm3 (4.0-10.5)
[2021-04-08 03:34] LABS: ALBUMIN 3.1 g/dL (3.5-5.0); ALKALINE PHOSPHATASE 55 U/L (38-126); ANION GAP 8.5 MEQ/L (5-15); BLOOD UREA NITROGEN 15 mg/dL (7-17); CHLORIDE 101 mmol/L (98-107); Calcium 8.9 mg/dL (8.4-10.2); Carbon Dioxide 32 mmol/L (22-30); Creatinine 1 0.84 mg/dL (0.52-1.04); EST GLOMERULAR FILTRATION RATE > 60.0 ML/MIN; Glucose 143 mg/dL (74-106); SGOT/AST 14 U/L (14-36); SGPT/ALT 14 U/L (0-35); SODIUM 138 mmol/L (137-145); Total Protein 5.6 g/dL (6.3-8.2)
[2021-04-08 04:56] LABS: Slide Review 1 YES
[2021-04-08] MEDS ORDERED: ADVAIR/WIXELLA 250-50 DISKUS 14 DOSE IH SCH (07:00)
--- NOTE | 2021-04-08 07:39 | PCM.HP ---
History of Present Illness - Chief Complaint Chief Complaint: shortness of breath for 1-2 days History of Present Illness: is a 65 year old female.with history of COPD presents to our ED via EMS for evaluation of wheezing. Patient requires oxygen at home. Per report patient is on 3 L of oxygen at home 24 hours/day. Patient shortness of breath is typical of her usual asthma exacerbation. Patient was treated with a DuoNeb in route. This helped improve patient symptoms but did not resolve symptoms. Patient still experiencing some shortness of breath. Symptoms are constant. Symptoms are moderate in intensity. No specific improving or worsening factors. Patient voices no other complaints or concerns at this time. - Review of Systems Constitutional: Fever, Weakness, No Chills Eyes: No Symptoms Ears, Nose, & Throat: No Symptoms Respiratory: Cough, Short Of Breath, Wheezing Cardiac: No Chest Pain, No Edema, No Syncope Abdominal/Gastrointestinal: No Abdominal Pain, No Nausea, No Vomiting, No Diarrhea Genitourinary Symptoms: No Dysuria Musculoskeletal: No Back Pain, No Neck Pain Skin: No Rash Neurological: No Dizziness, No Focal Weakness, No Sensory Changes Psychological: No Symptoms Endocrine: No Symptoms Hematologic/Lymphatic: No Symptoms Immunological/Allergic: No Symptoms Medications & Allergies Home Medications: Home Medication List Albuterol/Ipratropium Mdi [Combivent Inhaler] 1 puff IH QID 12/29/12 [History Confirmed 04/07/21] Clonazepam 0.5 mg [Klonopin 0.5 MG] 2 mg PO QHS 12/29/12 [History Confirmed 04/07/21] Famotidine 20 mg [Pepcid 20 MG] 20 mg PO DAILY 12/29/12 [History Confirmed 04/07/21] Fluticasone/Salmeterol Disc [Advair/[place] 250-50 Diskus 14 Dose] 1 puff IH BID 12/29/12 [History Confirmed 04/07/21] Sertraline HCl 100 mg [Zoloft 100 MG] 200 mg PO DAILY 12/17/13 [History Confirmed 04/07/21] Isosorbide Mononitrate 30 mg [Imdur 30 MG] 30 mg PO DAILY 11/05/14 [History Confirmed 04/07/21] Tizanidine HCl 4 mg [Zanaflex 4 MG] 4 mg PO TID 01/16/15 [History Confirmed 04/07/21] Quetiapine Fumarate [Seroquel] 200 mg PO DAILY 10/17/15 [History Confirmed 04/07/21] Vits W-Ca,Fe,FA(<1Mg) [] 1 each PO DAILY 10/18/15 [History Confirmed 04/07/21] Nitroglycerin 0.4 mg Tablet [Nitrostat 0.4 MG Tablet] 0.4 mg SL UD PRN 11/15/15 [History Confirmed 04/07/21] Albuterol Common Canister [Ventolin Common Canister] 2 puff IH QID PRN PRN 07/08/19 [History Confirmed 04/07/21] Quetiapine Fumarate 300 mg PO QHS 07/08/19 [History Confirmed 04/07/21] Gabapentin 1,200 mg PO QAM 04/08/20 [History Confirmed 04/07/21] Gabapentin [Neurontin] 2,400 mg PO HS 04/08/20 [History Confirmed 04/07/21] Theophylline Anhydrous 300 mg PO DAILY 12/23/20 [History Confirmed 04/07/21] Fluticasone Propionate [Flonase NASAL] 1 spray NS BID 03/15/21 [History Confirmed 04/07/21] Prednisone 20 mg [Deltasone 20 mg] 20 mg PO BID 03/15/21 [History Confirmed 04/07/21] Albuterol/Ipratropium 3ml Neb* [DUONEB 0.5-3 MG/3 ml Neb] 3 ml IH QIDRT 03/17/21 [Rx Confirmed 04/07/21] Levothyroxine Sodium 25 Mcg [Synthroid 25 Mcg] 25 mcg PO DAILY tablet 03/17/21 [Rx Confirmed 04/07/21] PANTOPRAZOLE 40 mg Tablet [Protonix 40MG Tablet] 40 mg PO DAILY tab 03/17/21 [Rx Confirmed 04/07/21] Allergies/Adverse Reactions: Allergies Allergy/AdvReac Type Severity Reaction Status Date / Time morphine Allergy Severe Fainting Verified 04/07/21 23:02 oxycodone Allergy Shortness Verified 04/07/21 23:02 of Breath Penicillins Allergy Verified 04/07/21 23:02 oxymorphone AdvReac Severe Fainting Verified 04/07/21 23:02 [place] AdvReac Intermediate Headache Verified 04/07/21 23:02 bupropion HCl AdvReac Mild Hives Verified 04/07/21 23:02 [From Wellbutrin] - Past Medical History Past Medical History: Yes Neurological History: Migraines ENT History: No Pertinent History Cardiac History: Congestive Heart Failure, Coronary Artery Disease, High Cholesterol Respiratory History: Asthma, Bronchitis, COPD, Pneumonia Endocrine Medical History: Hypothyroidism Musculoskelatal History: Arthritis, Osteoporosis GI Medical History: GERD, Hernia, Polyps History: No Pertinent History Pyscho-Social History: Anxiety, Bipolar, Depression Reproductive Disorders: Fibroids Comment: 2 LEAKY VALVES. BORDERLINE PERSONALITY DISORDER, PTSD, manic depressive - Female History Are you now?: No - Past Surgical History Past Surgical History: Yes Neuro Surgical History: No Pertinent History Cardiac History: Cardiac Catheterization Respiratory Surgery: No Pertinent History GI Surgical History: Other Genitourinary Surgical Hx: No Pertinent History Musculskeletal Surgical Hx: Other Female Surgical History: Section Other Surgical History: ARM SURGERY-- left wrist laceration from a glass door, 2 c-sections, EGD with dilitation, colonoscopy, heart cath x 2 - Social History Smoking Status: Former smoker How long have you smoked: 40 Exposure to second hand smoke: No Alcohol: None Drug Use: none Significant Family History: no pertinent family hx - Physical Exam Vital Signs: Vital Signs - 24 hr Temp Pulse Resp BP Pulse Ox 04/08/21 06:47 84 24 98 04/08/21 03:55 97.7 F 86 28 H 97/53 99 04/08/21 01:05 94 H 22 96 04/07/21 23:18 98 04/07/21 23:15 99.2 F 104 H 24 120/55 98 04/07/21 22:58 99.2 F 104 H 24 120/55 98 04/07/21 22:35 95 04/07/21 22:00 100 H 24 96 04/07/21 21:00 108 H 26 H 117/86 95 04/07/21 20:00 104 H 24 120/84 96 04/07/21 19:00 112 H 28 H 142/100 95 04/07/21 18:45 117 H 28 H 98 04/07/21 17:54 94 L 04/07/21 17:36 123 H 30 H 102/79 95 General Appearance: no apparent distress, alert Neurologic Exam: alert, oriented x 3, cooperative, normal mood/affect, nml cerebellar function, nml station & gait, sensation nml, No motor deficits Eye Exam: PERRL/EOMI, eyes nml inspection Ears, Nose, Throat Exam: normal ENT inspection, TMs normal, pharynx normal, moist mucous membranes Neck Exam: normal inspection, non-tender, supple, full range of motion Respiratory Exam: diminished breath sounds, accessory muscle use, crackles/rales, rhonchi, wheezing, No respiratory distress Cardiovascular Exam: regular rate/rhythm, normal heart sounds, normal peripheral pulses Gastrointestinal/Abdomen Exam: soft, normal bowel sounds, No tenderness, No mass Back Exam: normal inspection, normal range of motion, No CVA tenderness, No vertebral tenderness Extremity Exam: normal inspection, normal range of motion, pelvis stable Skin Exam: normal color, warm, dry, No rash Lymphatic Exam: No adenopathy Results - Labs Lab/Micro Results: Lab Results-Last 24 Hours 04/07/21 04/07/21 04/07/21 Range/Units 17:48 18:40 18:40 WBC 23.1 H (4.0-10.5) K/mm3 RBC 3.92 L (4.1-5.4) M/mm3 Hgb 11.2 L (12.0-16.0) gm/dl Hct 37.9 (35-47) % MCV 96.7 (78-100) fl MCH 28.6 (26-32) pg MCHC 29.6 L (32-36) g/dl RDW 16.1 H (11.5-14.0) % Plt Count 359 (150-450) K/mm3 MPV 9.9 (7.5-11.0) fl Gran % 92.7 H (36.0-66.0) % Eos # (Auto) 0.03 (0-0.5) Absolute Lymphs (auto) 0.63 L (1.0-4.6) Absolute Monos (auto) 1.02 (0.0-1.3) Lymphocytes % 2.7 L (24.0-44.0) % Monocytes % 4.4 (0.0-12.0) % Eosinophils % 0.1 (0.00-5.0) % Basophils % 0.1 (0.0-0.4) % Absolute Granulocytes 21.39 H (1.4-6.9) Basophils # 0.03 (0-0.4) Sodium 141 (137-145) mmol/L Potassium 3.7 (3.5-5.1) mmol/L Chloride 100 (98-107) mmol/L Carbon Dioxide 36 H (22-30) mmol/L Anion Gap 8.2 (5-15) MEQ/L BUN 11 (7-17) mg/dL Creatinine 0.88 (0.52-1.04) mg/dL Estimated GFR > 60.0 ML/MIN Glucose 87 (74-106) mg/dL Lactic Acid (0.4-2.0) Calcium 9.4 (8.4-10.2) mg/dL Total Bilirubin 0.40 (0.2-1.3) mg/dL AST 15 (14-36) U/L ALT 15 (0-35) U/L Alkaline Phosphatase 67 (38-126) U/L Troponin I (0.000-0.034) ng/mL NT-Pro-B Natriuret Pep 253 (0-900) pg/mL Serum Total Protein 6.2 L (6.3-8.2) g/dL Albumin 3.5 (3.5-5.0) g/dL Urine Color STRAW (YELLOW) Urine Appearance CLEAR (CLEAR) Urine pH 6.0 (5-6) Ur Specific [place] 1.005 (1.005-1.025) Urine Protein NEGATIVE (Negative) Urine Ketones NEGATIVE (NEGATIVE) Urine Blood NEGATIVE (0-5) [place]/ul Urine Nitrite NEGATIVE (NEGATIVE) Urine Bilirubin NEGATIVE (NEGATIVE) Urine Urobilinogen NEGATIVE (0-1) mg/dL Ur Leukocyte Esterase NEGATIVE (NEGATIVE) Urine WBC (Auto) NONE (0-5) /HPF U Epithel Cells (Auto) NONE (FEW) /HPF Urine Culture Reflexed NO (NO) Urine Glucose NEGATIVE (NEGATIVE) mg/dL Influenza Type A Ag (NEGATIVE) Influenza Type B Ag (NEGATIVE) RSV (PCR) (Negative) SARS-CoV-2 (PCR) (NEGATIVE) Slides for Path Review YES 04/07/21 04/07/21 04/07/21 Range/Units 18:40 20:45 21:15 WBC (4.0-10.5) K/mm3 RBC (4.1-5.4) M/mm3 Hgb (12.0-16.0) gm/dl Hct (35-47) % MCV (78-100) fl MCH (26-32) pg MCHC (32-36) g/dl RDW (11.5-14.0) % Plt Count (150-450) K/mm3 MPV (7.5-11.0) fl Gran % (36.0-66.0) % Eos # (Auto) (0-0.5) Absolute Lymphs (auto) (1.0-4.6) Absolute Monos (auto) (0.0-1.3) Lymphocytes % (24.0-44.0) % Monocytes % (0.0-12.0) % Eosinophils % (0.00-5.0) % Basophils % (0.0-0.4) % Absolute Granulocytes (1.4-6.9) Basophils # (0-0.4) Sodium (137-145) mmol/L Potassium (3.5-5.1) mmol/L Chloride (98-107) mmol/L Carbon Dioxide (22-30) mmol/L Anion Gap (5-15) MEQ/L BUN (7-17) mg/dL Creatinine (0.52-1.04) mg/dL Estimated GFR ML/MIN Glucose (74-106) mg/dL Lactic Acid (0.4-2.0) Calcium (8.4-10.2) mg/dL Total Bilirubin (0.2-1.3) mg/dL AST (14-36) U/L ALT (0-35) U/L Alkaline Phosphatase (38-126) U/L Troponin I 0.012 0.012 (0.000-0.034) ng/mL NT-Pro-B Natriuret Pep (0-900) pg/mL Serum Total Protein (6.3-8.2) g/dL Albumin (3.5-5.0) g/dL Urine Color (YELLOW) Urine Appearance (CLEAR) Urine pH (5-6) Ur Specific [place] (1.005-1.025) Urine Protein (Negative) Urine Ketones (NEGATIVE) Urine Blood (0-5) [place]/ul Urine Nitrite (NEGATIVE) Urine Bilirubin (NEGATIVE) Urine Urobilinogen (0-1) mg/dL Ur Leukocyte Esterase (NEGATIVE) Urine WBC (Auto) (0-5) /HPF U Epithel Cells (Auto) (FEW) /HPF Urine Culture Reflexed (NO) Urine Glucose (NEGATIVE) mg/dL Influenza Type A Ag NEGATIVE (NEGATIVE) Influenza Type B Ag NEGATIVE (NEGATIVE) RSV (PCR) NEGATIVE (Negative) SARS-CoV-2 (PCR) NEGATIVE (NEGATIVE) Slides for Path Review 04/07/21 04/08/21 04/08/21 Range/Units 21:30 00:45 03:15 WBC (4.0-10.5) K/mm3 RBC (4.1-5.4) M/mm3 Hgb (12.0-16.0) gm/dl Hct (35-47) % MCV (78-100) fl MCH (26-32) pg MCHC (32-36) g/dl RDW (11.5-14.0) % Plt Count (150-450) K/mm3 MPV (7.5-11.0) fl Gran % (36.0-66.0) % Eos # (Auto) (0-0.5) Absolute Lymphs (auto) (1.0-4.6) Absolute Monos (auto) (0.0-1.3) Lymphocytes % (24.0-44.0) % Monocytes % (0.0-12.0) % Eosinophils % (0.00-5.0) % Basophils % (0.0-0.4) % Absolute Granulocytes (1.4-6.9) Basophils # (0-0.4) Sodium (137-145) mmol/L Potassium (3.5-5.1) mmol/L Chloride (98-107) mmol/L Carbon Dioxide (22-30) mmol/L Anion Gap (5-15) MEQ/L BUN (7-17) mg/dL Creatinine (0.52-1.04) mg/dL Estimated GFR ML/MIN Glucose (74-106) mg/dL Lactic Acid 2.0 (0.4-2.0) Calcium (8.4-10.2) mg/dL Total Bilirubin (0.2-1.3) mg/dL AST (14-36) U/L ALT (0-35) U/L Alkaline Phosphatase (38-126) U/L Troponin I < 0.012 < 0.012 (0.000-0.034) ng/mL NT-Pro-B Natriuret Pep (0-900) pg/mL Serum Total Protein (6.3-8.2) g/dL Albumin (3.5-5.0) g/dL Urine Color (YELLOW) Urine Appearance (CLEAR) Urine pH (5-6) Ur Specific [place] (1.005-1.025) Urine Protein (Negative) Urine Ketones (NEGATIVE) Urine Blood (0-5) [place]/ul Urine Nitrite (NEGATIVE) Urine Bilirubin (NEGATIVE) Urine Urobilinogen (0-1) mg/dL Ur Leukocyte Esterase (NEGATIVE) Urine WBC (Auto) (0-5) /HPF U Epithel Cells (Auto) (FEW) /HPF Urine Culture Reflexed (NO) Urine Glucose (NEGATIVE) mg/dL Influenza Type A Ag (NEGATIVE) Influenza Type B Ag (NEGATIVE) RSV (PCR) (Negative) SARS-CoV-2 (PCR) (NEGATIVE) Slides for Path Review 04/08/21 04/08/21 Range/Units 03:15 03:15 WBC 24.9 H (4.0-10.5) K/mm3 RBC 3.29 L (4.1-5.4) M/mm3 Hgb 9.6 L (12.0-16.0) gm/dl Hct 31.7 L (35-47) % MCV 96.4 (78-100) fl MCH 29.2 (26-32) pg MCHC 30.3 L (32-36) g/dl RDW 16.3 H (11.5-14.0) % Plt Count 315 (150-450) K/mm3 MPV 9.3 (7.5-11.0) fl Gran % (36.0-66.0) % Eos # (Auto) (0-0.5) Absolute Lymphs (auto) (1.0-4.6) Absolute Monos (auto) (0.0-1.3) Lymphocytes % (24.0-44.0) % Monocytes % (0.0-12.0) % Eosinophils % (0.00-5.0) % Basophils % (0.0-0.4) % Absolute Granulocytes (1.4-6.9) Basophils # (0-0.4) Sodium 138 (137-145) mmol/L Potassium 4.0 (3.5-5.1) mmol/L Chloride 101 (98-107) mmol/L Carbon Dioxide 32 H (22-30) mmol/L Anion Gap 8.5 (5-15) MEQ/L BUN 15 (7-17) mg/dL Creatinine 0.84 (0.52-1.04) mg/dL Estimated GFR > 60.0 ML/MIN Glucose 143 H (74-106) mg/dL Lactic Acid (0.4-2.0) Calcium 8.9 (8.4-10.2) mg/dL Total Bilirubin 0.30 (0.2-1.3) mg/dL AST 14 (14-36) U/L ALT 14 (0-35) U/L Alkaline Phosphatase 55 (38-126) U/L Troponin I (0.000-0.034) ng/mL NT-Pro-B Natriuret Pep (0-900) pg/mL Serum Total Protein 5.6 L (6.3-8.2) g/dL Albumin 3.1 L (3.5-5.0) g/dL Urine Color (YELLOW) Urine Appearance (CLEAR) Urine pH (5-6) Ur Specific [place] (1.005-1.025) Urine Protein (Negative) Urine Ketones (NEGATIVE) Urine Blood (0-5) [place]/ul Urine Nitrite (NEGATIVE) Urine Bilirubin (NEGATIVE) Urine Urobilinogen (0-1) mg/dL Ur Leukocyte Esterase (NEGATIVE) Urine WBC (Auto) (0-5) /HPF U Epithel Cells (Auto) (FEW) /HPF Urine Culture Reflexed (NO) Urine Glucose (NEGATIVE) mg/dL Influenza Type A Ag (NEGATIVE) Influenza Type B Ag (NEGATIVE) RSV (PCR) (Negative) SARS-CoV-2 (PCR) (NEGATIVE) Slides for Path Review - Radiology Impressions Radiology Exams & Impressions: Radiology Procedures Category Date Time Status CHEST 1 VIEW (PORTABLE) Stat Exams 04/07/21 17:47 Taken - Other Procedures and Tests Respiratory Therapy 04/07/21 18:44 Respiratory Therapy Assessment DAILY 04/07/21 23:44 Oxygen Nasal Cannula 3 lpm 04/08/21 01:00 Flutter Therapy UD Assessment/Plan (1) Pneumonia Current Visit: Yes Status: Acute Qualifiers: Pneumonia type: due to Klebsiella pneumoniae Laterality: unspecified laterality Lung location: lower lobe of lung Qualified Code(s): J15.0 - Pneumonia due to Klebsiella pneumoniae Assessment & Plan: Chief Complaint Diagnosis Pneumonia, COPD exacerbation Allergies Allergy/AdvReac Type Severity Reaction Status Date / Time morphine Allergy Severe Fainting Verified 04/07/21 23:02 oxycodone Allergy Shortness Verified 04/07/21 23:02 of Breath Penicillins Allergy Verified 04/07/21 23:02 oxymorphone AdvReac Severe Fainting Verified 04/07/21 23:02 [place] AdvReac Intermediate Headache Verified 04/07/21 23:02 bupropion HCl AdvReac Mild Hives Verified 04/07/21 23:02 [From Wellbutrin] Vital Signs (Last 24 hours) Temp Pulse Resp BP Pulse Ox 04/08/21 06:47 84 24 98 04/08/21 03:55 97.7 F 86 28 H 97/53 99 04/08/21 01:05 94 H 22 96 04/07/21 23:18 98 04/07/21 23:15 99.2 F 104 H 24 120/55 98 04/07/21 22:58 99.2 F 104 H 24 120/55 98 04/07/21 22:35 95 04/07/21 22:00 100 H 24 96 04/07/21 21:00 108 H 26 H 117/86 95 04/07/21 20:00 104 H 24 120/84 96 04/07/21 19:00 112 H 28 H 142/100 95 04/07/21 18:45 117 H 28 H 98 04/07/21 17:54 94 L 04/07/21 17:36 123 H 30 H 102/79 95 Current Medications Generic Name Dose Route Start Last Admin Trade Name Freq PRN Reason Stop Dose Admin Albuterol Sulfate 2.5 mg 04/08/21 07:00 04/08/21 06:45 Albuterol Sulfate 2.5 Mg/3 Ml Neb IH 05/08/21 06:59 2.5 mg QIDRT VALERY Administration Albuterol/Ipratropium 3 ml 04/08/21 00:39 04/08/21 01:05 Ipratropium/Albuterol Sulfate 3 Ml Ampul.Neb 05/08/21 00:38 3 ml Q4HPRN PRN Administration SHORTNESS OF BREATH/WHEEZING Methylprednisolone Sodium 0 mg 04/08/21 00:00 04/08/21 06:50 Succinate 80 mg/ Sterile Water IV 05/08/21 00:00 80 mg 2 ml Q6HT VALERY Administration Fluticasone/Salmeterol 2 puff 04/08/21 07:00 Fluticasone/Salmeterol 115/21 - 120 Puff Common Canister 05/08/21 06:59 BIDRT [facility] Discontinued Medications Generic Name Dose Route Start Last Admin Trade Name Freq PRN Reason Stop Dose Admin Albuterol Sulfate 2.5 mg 04/07/21 23:00 04/08/21 05:44 Albuterol Sulfate 2.5 Mg/3 Ml Neb 05/07/21 22:59 Not Given Q4HRT VALERY Albuterol/Ipratropium 3 ml 04/07/21 17:51 04/07/21 18:43 Ipratropium/Albuterol Sulfate 3 Ml Ampul.Neb 04/07/21 17:52 3 ml STAT ONE Administration Albuterol/Ipratropium Confirm 04/07/21 18:24 Ipratropium/Albuterol Sulfate 3 Ml Ampul.Neb Administered 04/07/21 18:25 Dose 3 ml IH .STK-MED ONE Clonazepam 2 mg 04/08/21 00:00 04/08/21 00:11 Clonazepam 0.5 Mg Tablet PO 04/08/21 00:01 Not Given ONCE ONE Clonazepam 2 mg 04/08/21 00:10 04/08/21 00:20 Clonazepam 2 Mg Tablet PO 04/08/21 00:11 2 mg ONCE ONE Administration Doxycycline Hyclate Confirm 04/07/21 21:02 Doxycycline Hyclate 100 Mg/Vial Injection Administered 04/07/21 21:03 Dose 100 mg IV .STK-MED ONE Gabapentin 2,400 mg 04/08/21 00:01 04/08/21 00:19 Gabapentin 400 Mg Capsule PO 04/08/21 00:02 2,400 mg ONCE ONE Administration Doxycycline Hyclate 100 mg/ 100 mls @ 100 mls/hr 04/07/21 22:00 04/07/21 21:07 Dextrose IV 05/07/21 21:59 100 mls/hr Q12HT VALERY Administration Dextrose Confirm 04/07/21 21:02 D5w 100ml Mini Bag 100 Ml Administered 04/07/21 21:03 Dose 100 mls @ ud IV .STK-MED ONE Methylprednisolone Sodium Succinate Confirm 04/08/21 00:16 Methylprednis Sod Succ 125 Mg/2 Ml Vial Administered 04/08/21 00:17 Dose 125 mg .ROUTE .STK-MED ONE Methylprednisolone Sodium Succinate Confirm 04/08/21 06:37 Methylprednis Sod Succ 125 Mg/2 Ml Vial Administered 04/08/21 06:38 Dose 125 mg .ROUTE .STK-MED ONE Quetiapine Fumarate 300 mg 04/08/21 00:03 04/08/21 00:20 Quetiapine Fumarate 100 Mg Tablet PO 04/08/21 00:04 300 mg ONCE ONE Administration Fluticasone/Salmeterol 1 each 04/08/21 07:00 Fluticasone/Salmeterol 250/50 Diskus IH 05/08/21 06:59 BIDRT [facility] Sterile Water Confirm 04/08/21 00:18 Water For Injection,Sterile 10 Ml Vial Administered 04/08/21 00:19 Dose 10 ml IJ .STK-MED ONE Sterile Water Confirm 04/08/21 06:38 Water For Injection,Sterile 10 Ml Vial Administered 04/08/21 06:39 Dose 10 ml IJ .STK-MED ONE Tizanidine HCl 4 mg 04/08/21 00:05 04/08/21 00:20 Tizanidine Hcl 4 Mg Tablet PO 04/08/21 00:06 4 mg ONCE ONE Administration Intake & Output (Last 24 hours) 04/05/21 04/06/21 04/07/21 04/08/21 11:59 11:59 11:59 11:59 Output Total 200 Balance -200 Weight 80.9 kg Microbiology Results (Last 24 hours) 04/07/21 18:45 Blood Blood Culture Gram Stain - Pending 04/07/21 18:45 Blood Blood Culture - Pending 04/07/21 18:40 Blood Blood Culture Gram Stain - Pending 04/07/21 18:40 Blood Blood Culture - Pending Laboratory Results (Last 24 hours) 04/08/21 04/08/21 04/08/21 03:15 03:15 03:15 WBC 24.9 H RBC 3.29 L Hgb 9.6 L Hct 31.7 L MCV 96.4 MCH 29.2 MCHC 30.3 L RDW 16.3 H Plt Count 315 MPV 9.3 Gran % Eos # (Auto) Absolute Lymphs (auto) Absolute Monos (auto) Lymphocytes % Monocytes % Eosinophils % Basophils % Absolute Granulocytes Basophils # Sodium 138 Potassium 4.0 Chloride 101 Carbon Dioxide 32 H Anion Gap 8.5 BUN 15 Creatinine 0.84 Estimated GFR > 60.0 Glucose 143 H Lactic Acid Calcium 8.9 Total Bilirubin 0.30 AST 14 ALT 14 Alkaline Phosphatase 55 Troponin I < 0.012 NT-Pro-B Natriuret Pep Serum Total Protein 5.6 L Albumin 3.1 L Urine Color Urine Appearance Urine pH Ur Specific [place] Urine Protein Urine Ketones Urine Blood Urine Nitrite Urine Bilirubin Urine Urobilinogen Ur Leukocyte Esterase Urine WBC (Auto) U Epithel Cells (Auto) Urine Culture Reflexed Urine Glucose Influenza Type A Ag Influenza Type B Ag RSV (PCR) SARS-CoV-2 (PCR) Slides for Path Review 04/08/21 04/07/21 04/07/21 00:45 21:30 21:15 WBC RBC Hgb Hct MCV MCH MCHC RDW Plt Count MPV Gran % Eos # (Auto) Absolute Lymphs (auto) Absolute Monos (auto) Lymphocytes % Monocytes % Eosinophils % Basophils % Absolute Granulocytes Basophils # Sodium Potassium Chloride Carbon Dioxide Anion Gap BUN Creatinine Estimated GFR Glucose Lactic Acid 2.0 Calcium Total Bilirubin AST ALT Alkaline Phosphatase Troponin I < 0.012 0.012 NT-Pro-B Natriuret Pep Serum Total Protein Albumin Urine Color Urine Appearance Urine pH Ur Specific [place] Urine Protein Urine Ketones Urine Blood Urine Nitrite Urine Bilirubin Urine Urobilinogen Ur Leukocyte Esterase Urine WBC (Auto) U Epithel Cells (Auto) Urine Culture Reflexed Urine Glucose Influenza Type A Ag Influenza Type B Ag RSV (PCR) SARS-CoV-2 (PCR) Slides for Path Review 04/07/21 04/07/21 04/07/21 20:45 18:40 18:40 WBC RBC Hgb Hct MCV MCH MCHC RDW Plt Count MPV Gran % Eos # (Auto) Absolute Lymphs (auto) Absolute Monos (auto) Lymphocytes % Monocytes % Eosinophils % Basophils % Absolute Granulocytes Basophils # Sodium 141 Potassium 3.7 Chloride 100 Carbon Dioxide 36 H Anion Gap 8.2 BUN 11 Creatinine 0.88 Estimated GFR > 60.0 Glucose 87 Lactic Acid Calcium 9.4 Total Bilirubin 0.40 AST 15 ALT 15 Alkaline Phosphatase 67 Troponin I 0.012 NT-Pro-B Natriuret Pep 253 Serum Total Protein 6.2 L Albumin 3.5 Urine Color Urine Appearance Urine pH Ur Specific [place] Urine Protein Urine Ketones Urine Blood Urine Nitrite Urine Bilirubin Urine Urobilinogen Ur Leukocyte Esterase Urine WBC (Auto) U Epithel Cells (Auto) Urine Culture Reflexed Urine Glucose Influenza Type A Ag NEGATIVE Influenza Type B Ag NEGATIVE RSV (PCR) NEGATIVE SARS-CoV-2 (PCR) NEGATIVE Slides for Path Review 04/07/21 04/07/21 18:40 17:48 WBC 23.1 H RBC 3.92 L Hgb 11.2 L Hct 37.9 MCV 96.7 MCH 28.6 MCHC 29.6 L RDW 16.1 H Plt Count 359 MPV 9.9 Gran % 92.7 H Eos # (Auto) 0.03 Absolute Lymphs (auto) 0.63 L Absolute Monos (auto) 1.02 Lymphocytes % 2.7 L Monocytes % 4.4 Eosinophils % 0.1 Basophils % 0.1 Absolute Granulocytes 21.39 H Basophils # 0.03 Sodium Potassium Chloride Carbon Dioxide Anion Gap BUN Creatinine Estimated GFR Glucose Lactic Acid Calcium Total Bilirubin AST ALT Alkaline Phosphatase Troponin I NT-Pro-B Natriuret Pep Serum Total Protein Albumin Urine Color STRAW Urine Appearance CLEAR Urine pH 6.0 Ur Specific [place] 1.005 Urine Protein NEGATIVE Urine Ketones NEGATIVE Urine Blood NEGATIVE Urine Nitrite NEGATIVE Urine Bilirubin NEGATIVE Urine Urobilinogen NEGATIVE Ur Leukocyte Esterase NEGATIVE Urine WBC (Auto) NONE U Epithel Cells (Auto) NONE Urine Culture Reflexed NO Urine Glucose NEGATIVE Influenza Type A Ag Influenza Type B Ag RSV (PCR) SARS-CoV-2 (PCR) Slides for Path Review YES Orders (Last 24 hours) Category Date Time Status Bedrest with BRP/BSC ROUTINE Activity 04/07/21 22:41 Active Post Hole [employer]ger STAT Care 04/07/21 17:47 Completed Code Status Order ROUTINE Care 04/07/21 22:41 Active EKG-ER Only STAT Care 04/07/21 17:45 Completed IV Care Q6H Care 04/07/21 22:41 Active IV Insertion STAT Care 04/07/21 17:45 Completed Oxygen-ED Only Nasal Cannula 3 lpm Care 04/07/21 20:[address] in Observation ROUTINE Care 04/07/21 22:41 Active Pulse Oximetry (ED) STAT Care 04/07/21 17:45 Completed Betzy Gilmore ROUTINE Care 04/07/21 22:41 Active Telemetry q4h Care 04/07/21 22:41 Active Weight,Daily 0600 Care 04/07/21 22:41 Active Cardio-Pulmonary Rehab .as ordered Cons 04/07/21 23:[address] Judge/Discharge Plan ROUTINE Cons 04/07/21 23:28 Active Consistent Carbohydrate Diet 1800 Calorie Diet 04/07/21 Breakfast Active CHEST 1 VIEW (PORTABLE) Stat Exams 04/07/21 17:47 Taken BLOOD CULTURE Stat Lab 04/07/21 18:45 Received CBC AM.LAB Lab 04/08/21 03:15 Completed CBC W DIFF Stat Lab 04/07/21 18:40 Completed CMP AM.LAB Lab 04/08/21 03:15 Completed CMP Stat Lab 04/07/21 18:40 Completed Lactic Acid Stat Lab 04/07/21 21:30 Completed NT PRO BNP Stat Lab 04/07/21 18:40 Completed TROPONIN Q3H Lab 04/07/21 18:40 Completed TROPONIN Q3H Lab 04/07/21 21:15 Completed TROPONIN Q3H Lab 04/08/21 00:45 Completed TROPONIN Q3H Lab 04/08/21 03:15 Completed TROPONIN Q3H Lab 04/08/21 06:20 Received UA W/RFX UR CULTURE Stat Lab 04/07/21 17:48 Completed Albuterol 2.5 mg/3 ml Neb [Proventil 2.5 mg/3 ml Neb Med 04/07/21 23:00 Discontinued ] 2.5 mg IH Q4HRT Albuterol 2.5 mg/3 ml Neb [Proventil 2.5 mg/3 ml Neb Med 04/08/21 07:00 Active ] 2.5 mg IH QIDRT Albuterol/Ipratropium 3ml Neb* [DUONEB 0.5-3 MG/3 ml Med 04/07/21 18:24 Discontinued Neb] 3 ml IH .STK-MED ONE Albuterol/Ipratropium 3ml Neb* [DUONEB 0.5-3 MG/3 ml Med 04/08/21 00:39 Active Neb] 3 ml IH Q4HPRN PRN Albuterol/Ipratropium 3ml Neb* [DUONEB 0.5-3 MG/3 ml Med 04/07/21 17:51 Discontinued Neb] 3 ml IH STAT ONE Clonazepam [Klonopin] Med 04/08/21 00:10 Discontinued 2 mg PO ONCE ONE D5w 100 ml [D5w 100ML Mini Bag 100 ML] 100 ml Med 04/07/21 21:02 Discontinued IV UD Doxycycline Hyclate 100 mg [Vibramycin 100 mg] Med 04/07/21 21:02 Discontinued 100 mg IV .STK-MED ONE Doxycycline Hyclate 100 mg [Vibramycin 100 mg] Med 04/07/21 22:00 Discontinued 100 mg D5w 100 ml Mini-Bag Plus [Dextrose 5%/Water IV Soln. 100ML PLUS BAG] 100 ml IV Q12HT Fluticasone/Salmeterol 115/21 [Advair Hfa 115/21 Common Med 04/08/21 07:00 Active canister*] 2 puff IH BIDRT Fluticasone/Salmeterol Disc [Advair/[place] 250-50 Med 04/08/21 07:00 Discontinued Diskus 14 Dose] 1 each IH BIDRT Gabapentin 400 mg [Neurontin 400 MG] Med 04/08/21 00:01 Discontinued 2,400 mg PO ONCE ONE Methylprednis Sod Succ 125 mg* [solu-MEDROL] Med 04/08/21 00:16 Discontinued 125 mg .ROUTE .STK-MED ONE Methylprednis Sod Succ 125 mg* [solu-MEDROL] Med 04/08/21 06:37 Discontinued 125 mg .ROUTE .STK-MED ONE Methylprednis Sod Succ 125 mg* [solu-MEDROL] 80 mg Med 04/08/21 00:00 Active Water For Injection,Sterile [Sterile H2O 10 ml] 2 ml IV Q6HT Quetiapine Fumarate 100 mg [Seroquel 100 MG] Med 04/08/21 00:03 Discontinued 300 mg PO ONCE ONE Tizanidine HCl 4 mg [Zanaflex 4 MG] Med 04/08/21 00:05 Discontinued 4 mg PO ONCE ONE Water For Injection,Sterile [Sterile H2O 10 ml] Med 04/08/21 00:18 Discontinued 10 ml IJ .STK-MED ONE Water For Injection,Sterile [Sterile H2O 10 ml] Med 04/08/21 06:38 Discontinued 10 ml IJ .STK-MED ONE clonazePAM Med 04/08/21 00:00 Discontinued 2 mg PO ONCE ONE Flutter Therapy UD RT 04/08/21 01:00 Active Oxygen Nasal Cannula 3 lpm RT 04/07/21 23:44 Active Pulse Oximetry .spot check RT 04/07/21 23:45 Active RT Screen per Nursing Assess ONCE RT 04/07/21 23:28 Completed Respiratory Therapy Assessment DAILY RT 04/07/21 18:44 Active Code(s): J18.9 - PNEUMONIA, UNSPECIFIED ORGANISM (2) COPD exacerbation Current Visit: Yes Status: Acute Code(s): J44.1 - CHRONIC OBSTRUCTIVE PULMONARY DISEASE W (ACUTE) EXACERBATION
[2021-04-08] MEDS ORDERED: Nitrostat 0.4 MG Tablet SL PRN (08:01)
--- NOTE | 2021-04-08 08:43 | XRAY ---
Indication: Short of breath. "Double pneumonia." COPD. Comparison: March 14, 2021. Portable chest demonstrates new moderate diffuse left lung consolidating/nonconsolidating airspace disease without large effusion. Right lung is now clear. Heart not enlarged with stable hiatal hernia.
[2021-04-08] MEDS: Advair Hfa 115/21 Common canister IH SCH ×2 (08:50→18:48)
[2021-04-08] MEDS: Levofloxacin 500MG/100ML D5W 500 MG/100 ML BAG IV SCH (09:34)
[2021-04-08] MEDS: Seroquel 100 MG PO SCH ×2 (09:35→21:41)
[2021-04-08] MEDS: Flonase NASAL NS SCH ×2 (09:35→21:39)
[2021-04-08] MEDS: Imdur 30 MG PO SCH (09:35)
[2021-04-08] MEDS: ZOLOFT 50 MG TABLET PO SCH (09:35)
[2021-04-08] MEDS: Neurontin 400 MG PO SCH ×2 (09:35→21:41)
[2021-04-08] MEDS: THEOPHYLLINE ER 24HR PO SCH (09:36)
[2021-04-08] MEDS: Protonix 40MG Tablet PO SCH (09:36)
[2021-04-08] MEDS: SYNTHROID 25 MCG PO SCH (09:36)
[2021-04-08] MEDS: THERAGRAN MULTIVITAMIN PO SCH (09:36)
[2021-04-08] MEDS: Pepcid 20 MG PO SCH (09:36)
[2021-04-08] MEDS: Zanaflex 4 MG PO SCH ×3 (09:36→21:42)
[2021-04-08] MEDS ORDERED: NON-FORMULARY ITEM (Prenatal Vits W-Ca,Fe,Fa(<1mg) [Prenatal] 1 EACH Tablet) PO SCH (10:00)
[2021-04-08] MEDS ORDERED: THEOPHYLLINE ANHYDROUS 300 MG PO SCH (10:00)
[2021-04-08] MEDS ORDERED: Combivent Inhaler COMMON CANISTER IH SCH (10:00)
[2021-04-08] MEDS ORDERED: DELTASONE 20 MG PO SCH (10:00)
[2021-04-08] MEDS ORDERED: NON-FORMULARY ITEM (Sertraline Hcl 100 Mg [Zoloft 100 Mg] 100 MG Tab) PO SCH (10:00)
[2021-04-08] MEDS ORDERED: Tums EX 750 MG PO PRN (10:45)
--- NOTE | 2021-04-08 18:29 | PCM.NOTE ---
Date and Time: 04/08/211827 Subjective Assessment: doing ok - Review of Systems Constitutional: No Fever, No Chills Eyes: No Symptoms Ears, Nose, & Throat: No Symptoms Respiratory: Cough, Orthopnea, Short Of Breath, Wheezing Cardiac: No Chest Pain, No Edema, No Syncope Abdominal/Gastrointestinal: No Abdominal Pain, No Nausea, No Vomiting, No Diarrhea Genitourinary Symptoms: No Dysuria Musculoskeletal: No Back Pain, No Neck Pain Skin: No Rash Neurological: No Dizziness, No Focal Weakness, No Sensory Changes Psychological: No Symptoms Endocrine: No Symptoms Hematologic/Lymphatic: No Symptoms Immunological/Allergic: No Symptoms Objective Exam General Appearance: no apparent distress, alert Neurologic Exam: alert, oriented x 3, cooperative, normal mood/affect, nml cerebellar function, sensation nml, No motor deficits Skin Exam: normal color, warm, dry Eye Exam: PERRL, EOMI, eyes nml inspection Ears, Nose, Throat Exam: normal ENT inspection, pharynx normal, moist mucous membranes Neck Exam: normal inspection, non-tender, supple, full range of motion Respiratory Exam: diminished breath sounds, crackles/rales, rhonchi, wheezing, No respiratory distress Cardiovascular Exam: regular rate/rhythm, normal heart sounds Gastrointestinal/Abdomen Exam: soft, No tenderness, No mass Extremity Exam: normal inspection, normal range of motion Back Exam: normal inspection, normal range of motion, No CVA tenderness, No vertebral tenderness Pelvic Exam: deferred Rectal Exam: deferred OBJECTIVE DATA Vital Signs: Vital Signs - 24 hr Temp Pulse Resp BP Pulse Ox 04/08/21 16:00 96.6 F 103 H 26 H 114/53 97 04/08/21 15:32 117 H 28 H 95 04/08/21 12:00 95.8 F 86 29 H 115/57 97 04/08/21 11:47 106 H 22 96 04/08/21 07:42 95.8 F 86 29 H 115/57 97 04/08/21 06:47 84 24 98 04/08/21 03:55 97.7 F 86 28 H 97/53 99 04/08/21 01:05 94 H 22 96 04/07/21 23:18 98 04/07/21 23:15 99.2 F 104 H 24 120/55 98 04/07/21 22:58 99.2 F 104 H 24 120/55 98 04/07/21 22:35 04/07/21 22:00 100 H 24 96 04/07/21 21:00 108 H 26 H 117/86 04/07/21 20:00 104 H 24 120/84 96 04/07/21 19:00 112 H 28 H 142/100 95 04/07/21 18:45 117 H 28 H 98 Pain Assessment - Last Documented Pain Intensity 0 Intake and Output: Intake & Output 04/06/21 04/07/21 04/08/21 04/09/21 11:59 11:59 11:59 11:59 Intake Total 420 Output Total 200 Balance -200 420 Weight 80.1 kg Lab Results: Lab Results-Last 24 Hours 04/07/21 04/07/21 04/07/21 Range/Units 17:48 18:40 18:40 WBC 23.1 H (4.0-10.5) K/mm3 RBC 3.92 L (4.1-5.4) M/mm3 Hgb 11.2 L (12.0-16.0) gm/dl Hct 37.9 (35-47) % MCV 96.7 (78-100) fl MCH 28.6 (26-32) pg MCHC 29.6 L (32-36) g/dl RDW 16.1 H (11.5-14.0) % Plt Count 359 (150-450) K/mm3 MPV 9.9 (7.5-11.0) fl Gran % 92.7 H (36.0-66.0) % Eos # (Auto) 0.03 (0-0.5) Absolute Lymphs (auto) 0.63 L (1.0-4.6) Absolute Monos (auto) 1.02 (0.0-1.3) Lymphocytes % 2.7 L (24.0-44.0) % Monocytes % 4.4 (0.0-12.0) % Eosinophils % 0.1 (0.00-5.0) % Basophils % 0.1 (0.0-0.4) % Absolute Granulocytes 21.39 H (1.4-6.9) Basophils # 0.03 (0-0.4) Sodium 141 (137-145) mmol/L Potassium 3.7 (3.5-5.1) mmol/L Chloride 100 (98-107) mmol/L Carbon Dioxide 36 H (22-30) mmol/L Anion Gap 8.2 (5-15) MEQ/L BUN 11 (7-17) mg/dL Creatinine 0.88 (0.52-1.04) mg/dL Estimated GFR > 60.0 ML/MIN Glucose 87 (74-106) mg/dL Lactic Acid (0.4-2.0) Calcium 9.4 (8.4-10.2) mg/dL Total Bilirubin 0.40 (0.2-1.3) mg/dL AST 15 (14-36) U/L ALT 15 (0-35) U/L Alkaline Phosphatase 67 (38-126) U/L Troponin I (0.000-0.034) ng/mL NT-Pro-B Natriuret Pep 253 (0-900) pg/mL Serum Total Protein 6.2 L (6.3-8.2) g/dL Albumin 3.5 (3.5-5.0) g/dL Urine Color STRAW (YELLOW) Urine Appearance CLEAR (CLEAR) Urine pH 6.0 (5-6) Ur Specific [place] 1.005 (1.005-1.025) Urine Protein NEGATIVE (Negative) Urine Ketones NEGATIVE (NEGATIVE) Urine Blood NEGATIVE (0-5) Erasto/ul Urine Nitrite NEGATIVE (NEGATIVE) Urine Bilirubin NEGATIVE (NEGATIVE) Urine Urobilinogen NEGATIVE (0-1) mg/dL Ur Leukocyte Esterase NEGATIVE (NEGATIVE) Urine WBC (Auto) NONE (0-5) /HPF U Epithel Cells (Auto) NONE (FEW) /HPF Urine Culture Reflexed NO (NO) Urine Glucose NEGATIVE (NEGATIVE) mg/dL Influenza Type A Ag (NEGATIVE) Influenza Type B Ag (NEGATIVE) RSV (PCR) (Negative) SARS-CoV-2 (PCR) (NEGATIVE) Slides for Path Review YES 04/07/21 04/07/21 04/07/21 Range/Units 18:40 20:45 21:15 WBC (4.0-10.5) K/mm3 RBC (4.1-5.4) M/mm3 Hgb (12.0-16.0) gm/dl Hct (35-47) % MCV (78-100) fl MCH (26-32) pg MCHC (32-36) g/dl RDW (11.5-14.0) % Plt Count (150-450) K/mm3 MPV (7.5-11.0) fl Gran % (36.0-66.0) % Eos # (Auto) (0-0.5) Absolute Lymphs (auto) (1.0-4.6) Absolute Monos (auto) (0.0-1.3) Lymphocytes % (24.0-44.0) % Monocytes % (0.0-12.0) % Eosinophils % (0.00-5.0) % Basophils % (0.0-0.4) % Absolute Granulocytes (1.4-6.9) Basophils # (0-0.4) Sodium (137-145) mmol/L Potassium (3.5-5.1) mmol/L Chloride (98-107) mmol/L Carbon Dioxide (22-30) mmol/L Anion Gap (5-15) MEQ/L BUN (7-17) mg/dL Creatinine (0.52-1.04) mg/dL Estimated GFR ML/MIN Glucose (74-106) mg/dL Lactic Acid (0.4-2.0) Calcium (8.4-10.2) mg/dL Total Bilirubin (0.2-1.3) mg/dL AST (14-36) U/L ALT (0-35) U/L Alkaline Phosphatase (38-126) U/L Troponin I 0.012 0.012 (0.000-0.034) ng/mL NT-Pro-B Natriuret Pep (0-900) pg/mL Serum Total Protein (6.3-8.2) g/dL Albumin (3.5-5.0) g/dL Urine Color (YELLOW) Urine Appearance (CLEAR) Urine pH (5-6) Ur Specific [place] (1.005-1.025) Urine Protein (Negative) Urine Ketones (NEGATIVE) Urine Blood (0-5) [place]/ul Urine Nitrite (NEGATIVE) Urine Bilirubin (NEGATIVE) Urine Urobilinogen (0-1) mg/dL Ur Leukocyte Esterase (NEGATIVE) Urine WBC (Auto) (0-5) /HPF U Epithel Cells (Auto) (FEW) /HPF Urine Culture Reflexed (NO) Urine Glucose (NEGATIVE) mg/dL Influenza Type A Ag NEGATIVE (NEGATIVE) Influenza Type B Ag NEGATIVE (NEGATIVE) RSV (PCR) NEGATIVE (Negative) SARS-CoV-2 (PCR) NEGATIVE (NEGATIVE) Slides for Path Review 04/07/21 04/08/21 04/08/21 Range/Units 21:30 00:45 03:15 WBC (4.0-10.5) K/mm3 RBC (4.1-5.4) M/mm3 Hgb (12.0-16.0) gm/dl Hct (35-47) % MCV (78-100) fl MCH (26-32) pg MCHC (32-36) g/dl RDW (11.5-14.0) % Plt Count (150-450) K/mm3 MPV (7.5-11.0) fl Gran % (36.0-66.0) % Eos # (Auto) (0-0.5) Absolute Lymphs (auto) (1.0-4.6) Absolute Monos (auto) (0.0-1.3) Lymphocytes % (24.0-44.0) % Monocytes % (0.0-12.0) % Eosinophils % (0.00-5.0) % Basophils % (0.0-0.4) % Absolute Granulocytes (1.4-6.9) Basophils # (0-0.4) Sodium (137-145) mmol/L Potassium (3.5-5.1) mmol/L Chloride (98-107) mmol/L Carbon Dioxide (22-30) mmol/L Anion Gap (5-15) MEQ/L BUN (7-17) mg/dL Creatinine (0.52-1.04) mg/dL Estimated GFR ML/MIN Glucose (74-106) mg/dL Lactic Acid 2.0 (0.4-2.0) Calcium (8.4-10.2) mg/dL Total Bilirubin (0.2-1.3) mg/dL AST (14-36) U/L ALT (0-35) U/L Alkaline Phosphatase (38-126) U/L Troponin I < 0.012 < 0.012 (0.000-0.034) ng/mL NT-Pro-B Natriuret Pep (0-900) pg/mL Serum Total Protein (6.3-8.2) g/dL Albumin (3.5-5.0) g/dL Urine Color (YELLOW) Urine Appearance (CLEAR) Urine pH (5-6) Ur Specific [place] (1.005-1.025) Urine Protein (Negative) Urine Ketones (NEGATIVE) Urine Blood (0-5) [place]/ul Urine Nitrite (NEGATIVE) Urine Bilirubin (NEGATIVE) Urine Urobilinogen (0-1) mg/dL Ur Leukocyte Esterase (NEGATIVE) Urine WBC (Auto) (0-5) /HPF U Epithel Cells (Auto) (FEW) /HPF Urine Culture Reflexed (NO) Urine Glucose (NEGATIVE) mg/dL Influenza Type A Ag (NEGATIVE) Influenza Type B Ag (NEGATIVE) RSV (PCR) (Negative) SARS-CoV-2 (PCR) (NEGATIVE) Slides for Path Review 04/08/21 04/08/21 04/08/21 Range/Units 03:15 03:15 06:20 WBC 24.9 H (4.0-10.5) K/mm3 RBC 3.29 L (4.1-5.4) M/mm3 Hgb 9.6 L (12.0-16.0) gm/dl Hct 31.7 L (35-47) % MCV 96.4 (78-100) fl MCH 29.2 (26-32) pg MCHC 30.3 L (32-36) g/dl RDW 16.3 H (11.5-14.0) % Plt Count 315 (150-450) K/mm3 MPV 9.3 (7.5-11.0) fl Gran % (36.0-66.0) % Eos # (Auto) (0-0.5) Absolute Lymphs (auto) (1.0-4.6) Absolute Monos (auto) (0.0-1.3) Lymphocytes % (24.0-44.0) % Monocytes % (0.0-12.0) % Eosinophils % (0.00-5.0) % Basophils % (0.0-0.4) % Absolute Granulocytes (1.4-6.9) Basophils # (0-0.4) Sodium 138 (137-145) mmol/L Potassium 4.0 (3.5-5.1) mmol/L Chloride 101 (98-107) mmol/L Carbon Dioxide 32 H (22-30) mmol/L Anion Gap 8.5 (5-15) MEQ/L BUN 15 (7-17) mg/dL Creatinine 0.84 (0.52-1.04) mg/dL Estimated GFR > 60.0 ML/MIN Glucose 143 H (74-106) mg/dL Lactic Acid (0.4-2.0) Calcium 8.9 (8.4-10.2) mg/dL Total Bilirubin 0.30 (0.2-1.3) mg/dL AST 14 (14-36) U/L ALT 14 (0-35) U/L Alkaline Phosphatase 55 (38-126) U/L Troponin I < 0.012 (0.000-0.034) ng/mL NT-Pro-B Natriuret Pep (0-900) pg/mL Serum Total Protein 5.6 L (6.3-8.2) g/dL Albumin 3.1 L (3.5-5.0) g/dL Urine Color (YELLOW) Urine Appearance (CLEAR) Urine pH (5-6) Ur Specific [place] (1.005-1.025) Urine Protein (Negative) Urine Ketones (NEGATIVE) Urine Blood (0-5) [place]/ul Urine Nitrite (NEGATIVE) Urine Bilirubin (NEGATIVE) Urine Urobilinogen (0-1) mg/dL Ur Leukocyte Esterase (NEGATIVE) Urine WBC (Auto) (0-5) /HPF U Epithel Cells (Auto) (FEW) /HPF Urine Culture Reflexed (NO) Urine Glucose (NEGATIVE) mg/dL Influenza Type A Ag (NEGATIVE) Influenza Type B Ag (NEGATIVE) RSV (PCR) (Negative) SARS-CoV-2 (PCR) (NEGATIVE) Slides for Path Review Radiology Exams: Radiology Procedures Category Date Time Status CHEST 1 VIEW (PORTABLE) Stat Exams 04/07/21 17:47 Completed Multi-Disciplinary Progress Notes: Multi-Disciplinary Progress Notes 04/08/21 13:54 Case Management Note by Anabela Brown [facility] HAS ACCEPTED PATIENT. THEY WILL NEED NOTIFIED AT [phone] AT TIME OF DC. THEY WILL ALSO NEED FAXED THE DC INSTRUCTIONS, DC MED LEST AND DC SUMMARY (IF AVAILABLE) TO [phone] Initialized on 04/08/21 13:54 - END OF NOTE 04/08/21 11:43 Case Management Note by Anabela Brown REFERRAL FAXED TO [facility] AT THIS TIME Initialized on 04/08/21 11:43 - END OF NOTE Assessment/Plan (1) Pneumonia Current Visit: Yes Status: Acute Qualifiers: Pneumonia type: due to Klebsiella pneumoniae Laterality: unspecified laterality Lung location: lower lobe of lung Qualified Code(s): J15.0 - Pneumonia due to Klebsiella pneumoniae Assessment & Plan: Chief Complaint Diagnosis shortness of breath for 1-2 days Allergies Allergy/AdvReac Type Severity Reaction Status Date / Time morphine Allergy Severe Fainting Verified 04/07/21 23:02 oxycodone Allergy Shortness Verified 04/07/21 23:02 of Breath Penicillins Allergy Verified 04/07/21 23:02 oxymorphone AdvReac Severe Fainting Verified 04/07/21 23:02 [place] AdvReac Intermediate Headache Verified 04/07/21 23:02 bupropion HCl AdvReac Mild Hives Verified 04/07/21 23:02 [From Wellbutrin] Vital Signs (Last 24 hours) Temp Pulse Resp BP Pulse Ox 04/08/21 16:00 96.6 F 103 H 26 H 114/53 97 04/08/21 15:32 117 H 28 H 95 04/08/21 12:00 95.8 F 86 29 H 115/57 97 04/08/21 11:47 106 H 22 96 04/08/21 07:42 95.8 F 86 29 H 115/57 97 04/08/21 06:47 84 24 98 04/08/21 03:55 97.7 F 86 28 H 97/53 99 04/08/21 01:05 94 H 22 96 04/07/21 23:18 98 04/07/21 23:15 99.2 F 104 H 24 120/55 98 04/07/21 22:58 99.2 F 104 H 24 120/55 98 04/07/21 22:35 95 04/07/21 22:00 100 H 24 96 04/07/21 21:00 108 H 26 H 117/86 95 04/07/21 20:00 104 H 24 120/84 96 04/07/21 19:00 112 H 28 H 142/100 95 04/07/21 18:45 117 H 28 H 98 Current Medications Generic Name Dose Route Start Last Admin Trade Name Freq PRN Reason Stop Dose Admin Albuterol Sulfate 2.5 mg 04/08/21 07:00 04/08/21 15:29 Albuterol Sulfate 2.5 Mg/3 Ml [facility] 05/08/21 06:59 2.5 mg QIDRT VALERY Administration Albuterol/Ipratropium 3 ml 04/08/21 00:39 04/08/21 01:05 Ipratropium/Albuterol Sulfate 3 Ml [facility]mp[facility] 05/08/21 00:38 3 ml Q4HPRN PRN Administration SHORTNESS OF BREATH/WHEEZING Calcium Carbonate/Glycine 750 mg 04/08/21 10:45 Calcium Carbonate 750 Mg 750 Mg Tab.Chew PO 05/08/21 10:44 Q1H PRN PRN INDIGESTION Clonazepam 2 mg 04/08/21 22:00 Clonazepam 2 Mg Tablet PO 05/08/21 21:59 QHS VALERY Methylprednisolone Sodium 0 mg 04/08/21 00:00 04/08/21 17:53 Succinate 80 mg/ Sterile Water IV 05/08/21 00:00 80 mg 2 ml Q6HT VALERY Administration Famotidine 20 mg 04/08/21 10:00 04/08/21 09:36 Famotidine 20 Mg Tablet PO 05/08/21 09:59 20 mg DAILY VALERY Administration Fluticasone Propionate 0 gm 04/08/21 10:00 04/08/21 09:35 Fluticasone Propionate 16 Gm Bottle Nasal [place] NS 05/08/21 09:59 1 gm BID VALERY Administration Gabapentin 1,200 mg 04/08/21 10:00 04/08/21 09:35 Gabapentin 400 Mg Capsule PO 05/08/21 09:59 1,200 mg QAM VALERY Administration Gabapentin 2,400 mg 04/08/21 22:00 Gabapentin 400 Mg Capsule PO 05/08/21 21:59 HS VALERY Levofloxacin/Dextrose 500 mg in 100 mls @ 100 mls/hr 04/08/21 10:00 04/08/21 09:34 Levofloxacin 500mg/100ml D5w IV 05/08/21 09:59 100 mls/hr Q24H10 VALERY Administration Isosorbide Mononitrate 30 mg 04/08/21 10:00 04/08/21 09:35 Isosorbide Mononitrate 30 Mg Tab PO 05/08/21 09:59 30 mg DAILY VALERY Administration Levothyroxine Sodium 25 mcg 04/08/21 10:00 04/08/21 09:36 Levothyroxine Sodium 25 Mcg Tablet PO 05/08/21 09:59 25 mcg DAILY VALERY Administration Multivitamins Therapeutic 1 tab 04/08/21 10:00 04/08/21 09:36 Multivitamins,Therapeutic 1 Tab Tab PO 05/08/21 09:59 1 tab DAILY VALERY Administration Nitroglycerin 0.4 mg 04/08/21 08:01 Nitroglycerin 0.4 Mg Tablet Bottle SL 05/08/21 08:00 UD PRN CHEST PAIN Pantoprazole Sodium 40 mg 04/08/21 10:00 04/08/21 09:36 Protonix (Pantoprazole) 40 Mg Tablet PO 05/08/21 09:59 40 mg DAILY VALERY Administration Quetiapine Fumarate 200 mg 04/08/21 10:00 04/08/21 09:35 Quetiapine Fumarate 100 Mg Tablet PO 05/08/21 09:59 200 mg DAILY VALERY Administration Quetiapine Fumarate 300 mg 04/08/21 22:00 Quetiapine Fumarate 100 Mg Tablet PO 05/08/21 21:59 QHS VALERY Fluticasone/Salmeterol 2 puff 04/08/21 07:00 04/08/21 08:50 Fluticasone/Salmeterol 115/21 - 120 Puff Common Canister 05/08/21 06:59 2 puff BIDRT VALERY Administration Sertraline HCl 200 mg 04/08/21 10:00 04/08/21 09:35 Sertraline Hcl 50 Mg Tab PO 05/08/21 09:59 200 mg DAILY VALERY Administration Theophylline 300 mg 04/08/21 10:00 04/08/21 09:36 Theophylline Anhydrous 400 Mg Tab.Er.24hr Tablet PO 05/08/21 09:59 300 mg DAILY VALERY Administration Tizanidine HCl 4 mg 04/08/21 10:00 04/08/21 14:46 Tizanidine Hcl 4 Mg Tablet PO 05/08/21 09:59 4 mg TID VALERY Administration Discontinued Medications Generic Name Dose Route Start Last Admin Trade Name Freq PRN Reason Stop Dose Admin Albuterol Sulfate 2.5 mg 04/07/21 23:00 04/08/21 05:44 Albuterol Sulfate 2.5 Mg/3 Ml Neb IH 05/07/21 22:59 Not Given Q4HRT VALERY Albuterol/Ipratropium 3 ml 04/07/21 17:51 04/07/21 18:43 Ipratropium/Albuterol Sulfate 3 Ml Ampul.Neb IH 04/07/21 17:52 3 ml STAT ONE Administration Albuterol/Ipratropium Confirm 04/07/21 18:24 Ipratropium/Albuterol Sulfate 3 Ml Ampul.Neb Administered 04/07/21 18:25 Dose 3 ml IH .STK-MED ONE Clonazepam 2 mg 04/08/21 00:00 04/08/21 00:11 Clonazepam 0.5 Mg Tablet PO 04/08/21 00:01 Not Given ONCE ONE Clonazepam 2 mg 04/08/21 00:10 04/08/21 00:20 Clonazepam 2 Mg Tablet PO 04/08/21 00:11 2 mg ONCE ONE Administration Doxycycline Hyclate Confirm 04/07/21 21:02 Doxycycline Hyclate 100 Mg/Vial Injection Administered 04/07/21 21:03 Dose 100 mg IV .STK-MED ONE Gabapentin 2,400 mg 04/08/21 00:01 04/08/21 00:19 Gabapentin 400 Mg Capsule PO 04/08/21 00:02 2,400 mg ONCE ONE Administration Doxycycline Hyclate 100 mg/ 100 mls @ 100 mls/hr 04/07/21 22:00 04/07/21 21:07 Dextrose IV 05/07/21 21:59 100 mls/hr Q12HT VALERY Administration Dextrose Confirm 04/07/21 21:02 D5w 100ml Mini Bag 100 Ml Administered 04/07/21 21:03 Dose 100 mls @ ud IV .STK-MED ONE Methylprednisolone Sodium Succinate Confirm 04/08/21 00:16 Methylprednis Sod Succ 125 Mg/2 Ml Vial Administered 04/08/21 00:17 Dose 125 mg .ROUTE .STK-MED ONE Methylprednisolone Sodium Succinate Confirm 04/08/21 06:37 Methylprednis Sod Succ 125 Mg/2 Ml Vial Administered 04/08/21 06:38 Dose 125 mg .ROUTE .STK-MED ONE Prednisone 20 mg 04/08/21 10:00 Prednisone 20 Mg Tablet PO 05/08/21 09:59 BID VALERY Quetiapine Fumarate 300 mg 04/08/21 00:03 04/08/21 00:20 Quetiapine Fumarate 100 Mg Tablet PO 04/08/21 00:04 300 mg ONCE ONE Administration Fluticasone/Salmeterol 1 each 04/08/21 07:00 Fluticasone/Salmeterol 250/50 Diskus IH 05/08/21 06:59 BIDRT VALERY Sterile Water Confirm 04/08/21 00:18 Water For Injection,Sterile 10 Ml Vial Administered 04/08/21 00:19 Dose 10 ml IJ .STK-MED ONE Sterile Water Confirm 04/08/21 06:38 Water For Injection,Sterile 10 Ml Vial Administered 04/08/21 06:39 Dose 10 ml IJ .STK-MED ONE Tizanidine HCl 4 mg 04/08/21 00:05 04/08/21 00:20 Tizanidine Hcl 4 Mg Tablet PO 04/08/21 00:06 4 mg ONCE ONE Administration Intake & Output (Last 24 hours) 04/06/21 04/07/21 04/08/21 04/09/21 11:59 11:59 11:59 11:59 Intake Total 420 Output Total 200 Balance -200 420 Weight 80.1 kg Microbiology Results (Last 24 hours) 04/07/21 18:45 Blood Blood Culture Gram Stain - Pending 04/07/21 18:45 Blood Blood Culture - Pending 04/07/21 18:40 Blood Blood Culture Gram Stain - Pending 04/07/21 18:40 Blood Blood Culture - Pending Laboratory Results (Last 24 hours) 04/08/21 04/08/21 04/08/21 06:20 03:15 03:15 WBC 24.9 H RBC 3.29 L Hgb 9.6 L Hct 31.7 L MCV 96.4 MCH 29.2 MCHC 30.3 L RDW 16.3 H Plt Count 315 MPV 9.3 Gran % Eos # (Auto) Absolute Lymphs (auto) Absolute Monos (auto) Lymphocytes % Monocytes % Eosinophils % Basophils % Absolute Granulocytes Basophils # Sodium 138 Potassium 4.0 Chloride 101 Carbon Dioxide 32 H Anion Gap 8.5 BUN 15 Creatinine 0.84 Estimated GFR > 60.0 Glucose 143 H Lactic Acid Calcium 8.9 Total Bilirubin 0.30 AST 14 ALT 14 Alkaline Phosphatase 55 Troponin I < 0.012 NT-Pro-B Natriuret Pep Serum Total Protein 5.6 L Albumin 3.1 L Urine Color Urine Appearance Urine pH Ur Specific [place] Urine Protein Urine Ketones Urine Blood Urine Nitrite Urine Bilirubin Urine Urobilinogen Ur Leukocyte Esterase Urine WBC (Auto) U Epithel Cells (Auto) Urine Culture Reflexed Urine Glucose Influenza Type A Ag Influenza Type B Ag RSV (PCR) SARS-CoV-2 (PCR) Slides for Path Review 04/08/21 04/08/21 04/07/21 03:15 00:45 21:30 WBC RBC Hgb Hct MCV MCH MCHC RDW Plt Count MPV Gran % Eos # (Auto) Absolute Lymphs (auto) Absolute Monos (auto) Lymphocytes % Monocytes % Eosinophils % Basophils % Absolute Granulocytes Basophils # Sodium Potassium Chloride Carbon Dioxide Anion Gap BUN Creatinine Estimated GFR Glucose Lactic Acid 2.0 Calcium Total Bilirubin AST ALT Alkaline Phosphatase Troponin I < 0.012 < 0.012 NT-Pro-B Natriuret Pep Serum Total Protein Albumin Urine Color Urine Appearance Urine pH Ur Specific [place] Urine Protein Urine Ketones Urine Blood Urine Nitrite Urine Bilirubin Urine Urobilinogen Ur Leukocyte Esterase Urine WBC (Auto) U Epithel Cells (Auto) Urine Culture Reflexed Urine Glucose Influenza Type A Ag Influenza Type B Ag RSV (PCR) SARS-CoV-2 (PCR) Slides for Path Review 04/07/21 04/07/21 04/07/21 21:15 20:45 18:40 WBC RBC Hgb Hct MCV MCH MCHC RDW Plt Count MPV Gran % Eos # (Auto) Absolute Lymphs (auto) Absolute Monos (auto) Lymphocytes % Monocytes % Eosinophils % Basophils % Absolute Granulocytes Basophils # Sodium Potassium Chloride Carbon Dioxide Anion Gap BUN Creatinine Estimated GFR Glucose Lactic Acid Calcium Total Bilirubin AST ALT Alkaline Phosphatase Troponin I 0.012 0.012 NT-Pro-B Natriuret Pep Serum Total Protein Albumin Urine Color Urine Appearance Urine pH Ur Specific [place] Urine Protein Urine Ketones Urine Blood Urine Nitrite Urine Bilirubin Urine Urobilinogen Ur Leukocyte Esterase Urine WBC (Auto) U Epithel Cells (Auto) Urine Culture Reflexed Urine Glucose Influenza Type A Ag NEGATIVE Influenza Type B Ag NEGATIVE RSV (PCR) NEGATIVE SARS-CoV-2 (PCR) NEGATIVE Slides for Path Review 04/07/21 04/07/21 04/07/21 18:40 18:40 17:48 WBC 23.1 H RBC 3.92 L Hgb 11.2 L Hct 37.9 MCV 96.7 MCH 28.6 MCHC 29.6 L RDW 16.1 H Plt Count 359 MPV 9.9 Gran % 92.7 H Eos # (Auto) 0.03 Absolute Lymphs (auto) 0.63 L Absolute Monos (auto) 1.02 Lymphocytes % 2.7 L Monocytes % 4.4 Eosinophils % 0.1 Basophils % 0.1 Absolute Granulocytes 21.39 H Basophils # 0.03 Sodium 141 Potassium 3.7 Chloride 100 Carbon Dioxide 36 H Anion Gap 8.2 BUN 11 Creatinine 0.88 Estimated GFR > 60.0 Glucose 87 Lactic Acid Calcium 9.4 Total Bilirubin 0.40 AST 15 ALT 15 Alkaline Phosphatase 67 Troponin I NT-Pro-B Natriuret Pep 253 Serum Total Protein 6.2 L Albumin 3.5 Urine Color STRAW Urine Appearance CLEAR Urine pH 6.0 Ur Specific [place] 1.005 Urine Protein NEGATIVE Urine Ketones NEGATIVE Urine Blood NEGATIVE Urine Nitrite NEGATIVE Urine Bilirubin NEGATIVE Urine Urobilinogen NEGATIVE Ur Leukocyte Esterase NEGATIVE Urine WBC (Auto) NONE U Epithel Cells (Auto) NONE Urine Culture Reflexed NO Urine Glucose NEGATIVE Influenza Type A Ag Influenza Type B Ag RSV (PCR) SARS-CoV-2 (PCR) Slides for Path Review YES Orders (Last 24 hours) Category Date Time Status Bedrest with BRP/BSC ROUTINE Activity 04/07/21 22:41 Active Pony Ride Attendant STAT Care 04/07/21 17:47 Completed Code Status Order ROUTINE Care 04/07/21 22:41 Active EKG-ER Only STAT Care 04/07/21 17:45 Completed IV Care Q6H Care 04/07/21 22:41 Active IV Insertion STAT Care 04/07/21 17:45 Completed Oxygen-ED Only Nasal Cannula 3 lpm Care 04/07/21 20:[address] in Observation ROUTINE Care 04/07/21 22:41 Active Pulse Oximetry (ED) STAT Care 04/07/21 17:45 Completed Rashaun Solorio, Apply ROUTINE Care 04/07/21 22:41 Active Telemetry q4h Care 04/07/21 22:41 Active Weight,Daily 0600 Care 04/07/21 22:41 Active Cardio-Pulmonary Rehab .as ordered Cons 04/07/21 23:15 Active Human Services Assistant/Discharge Plan ROUTINE Cons 04/07/21 23:28 Active Discharge Planning,Consult Routine Discharge 04/08/21 Active CHEST 1 VIEW (PORTABLE) Stat Exams 04/07/21 17:47 Completed BLOOD CULTURE Stat Lab 04/07/21 18:45 Received CBC AM.LAB Lab 04/08/21 03:15 Completed CBC W DIFF Stat Lab 04/07/21 18:40 Completed CMP AM.LAB Lab 04/08/21 03:15 Completed CMP Stat Lab 04/07/21 18:40 Completed Lactic Acid Stat Lab 04/07/21 21:30 Completed NT PRO BNP Stat Lab 04/07/21 18:40 Completed TROPONIN Q3H Lab 04/07/21 18:40 Completed TROPONIN Q3H Lab 04/07/21 21:15 Completed TROPONIN Q3H Lab 04/08/21 00:45 Completed TROPONIN Q3H Lab 04/08/21 03:15 Completed TROPONIN Q3H Lab 04/08/21 06:20 Completed UA W/RFX UR CULTURE Stat Lab 04/07/21 17:48 Completed Albuterol 2.5 mg/3 ml Neb [Proventil 2.5 mg/3 ml Neb Med 04/07/21 23:00 Discontinued ] 2.5 mg IH Q4HRT Albuterol 2.5 mg/3 ml Neb [Proventil 2.5 mg/3 ml Neb Med 04/08/21 07:00 Active ] 2.5 mg IH QIDRT Albuterol/Ipratropium 3ml Neb* [DUONEB 0.5-3 MG/3 ml Med 04/07/21 18:24 Discontinued Neb] 3 ml IH .STK-MED ONE Albuterol/Ipratropium 3ml Neb* [DUONEB 0.5-3 MG/3 ml Med 04/08/21 00:39 Active Neb] 3 ml IH Q4HPRN PRN Albuterol/Ipratropium 3ml Neb* [DUONEB 0.5-3 MG/3 ml Med 04/07/21 17:51 Discontinued Neb] 3 ml IH STAT ONE Calcium Carbonate 750 mg [Tums EX 750 MG] Med 04/08/21 10:45 Active 750 mg PO Q1H PRN PRN Clonazepam [Klonopin] Med 04/08/21 00:10 Discontinued 2 mg PO ONCE ONE Clonazepam [Klonopin] Med 04/08/21 22:00 Active 2 mg PO QHS D5w 100 ml [D5w 100ML Mini Bag 100 ML] 100 ml Med 04/07/21 21:02 Discontinued IV UD Doxycycline Hyclate 100 mg [Vibramycin 100 mg] Med 04/07/21 21:02 Discontinued 100 mg IV .STK-MED ONE Doxycycline Hyclate 100 mg [Vibramycin 100 mg] Med 04/07/21 22:00 Discontinued 100 mg D5w 100 ml Mini-Bag Plus [Dextrose 5%/Water IV Soln. 100ML PLUS BAG] 100 ml IV Q12HT Famotidine 20 mg [Pepcid 20 MG] Med 04/08/21 10:00 Active 20 mg PO DAILY Fluticasone Propionate [Flonase NASAL] Med 04/08/21 10:00 Active 0 gm NS BID Fluticasone/Salmeterol 115/21 [Advair Hfa 115/21 Common Med 04/08/21 07:00 Active canister*] 2 puff IH BIDRT Fluticasone/Salmeterol Disc [Advair/[place] 250-50 Med 04/08/21 07:00 Dis continued Diskus 14 Dose] 1 each IH BIDRT Gabapentin 400 mg [Neurontin 400 MG] Med 04/08/21 10:00 Active 1,200 mg PO QAM Gabapentin 400 mg [Neurontin 400 MG] Med 04/08/21 22:00 Active 2,400 mg PO HS Gabapentin 400 mg [Neurontin 400 MG] Med 04/08/21 00:01 Discontinued 2,400 mg PO ONCE ONE Isosorbide Mononitrate 30 mg [Imdur 30 MG] Med 04/08/21 10:00 Active 30 mg PO DAILY Levofloxacin [Levofloxacin 500MG/100ML D5W] Med 04/08/21 10:00 Active 500 mg in 100 ml IV Q24H10 Levothyroxine Sodium 25 Mcg [Synthroid 25 Mcg] Med 04/08/21 10:00 Active 25 mcg PO DAILY Methylprednis Sod Succ 125 mg* [solu-MEDROL] Med 04/08/21 00:16 Discontinued 125 mg .ROUTE .STK-MED ONE Methylprednis Sod Succ 125 mg* [solu-MEDROL] Med 04/08/21 06:37 Discontinued 125 mg .ROUTE .STK-MED ONE Methylprednis Sod Succ 125 mg* [solu-MEDROL] 80 mg Med 04/08/21 00:00 Active Water For Injection,Sterile [Sterile H2O 10 ml] 2 ml IV Q6HT Multivitamins,Therapeutic Tab* [Theragran Multivitamin* Med 04/08/21 10:00 Active ] 1 tab PO DAILY Nitroglycerin 0.4 mg Tablet [Nitrostat 0.4 MG Tablet Med 04/08/21 08:01 Active ] 0.4 mg SL UD PRN PANTOPRAZOLE 40 mg Tablet [Protonix 40MG Tablet] Med 04/08/21 10:00 Active 40 mg PO DAILY Prednisone 20 mg [Deltasone 20 mg] Med 04/08/21 10:00 Discontinued 20 mg PO BID Quetiapine Fumarate 100 mg [Seroquel 100 MG] Med 04/08/21 10:00 Active 200 mg PO DAILY Quetiapine Fumarate 100 mg [Seroquel 100 MG] Med 04/08/21 00:03 Discontinued 300 mg PO ONCE ONE Quetiapine Fumarate 100 mg [Seroquel 100 MG] Med 04/08/21 22:00 Active 300 mg PO QHS Sertraline HCl 50 mg [Zoloft 50 mg Tablet] Med 04/08/21 10:00 Active 200 mg PO DAILY Theophylline Anhydrous [Theophylline ER 24Hr] Med 04/08/21 10:00 Active 300 mg PO DAILY Tizanidine HCl 4 mg [Zanaflex 4 MG] Med 04/08/21 00:05 Discontinued 4 mg PO ONCE ONE Tizanidine HCl 4 mg [Zanaflex 4 MG] Med 04/08/21 10:00 Active 4 mg PO TID Water For Injection,Sterile [Sterile H2O 10 ml] Med 04/08/21 00:18 Discontinued 10 ml IJ .STK-MED ONE Water For Injection,Sterile [Sterile H2O 10 ml] Med 04/08/21 06:38 Discontinued 10 ml IJ .STK-MED ONE clonazePAM Med 04/08/21 00:00 Discontinued 2 mg PO ONCE ONE Flutter Therapy UD RT 04/08/21 01:00 Active Oxygen Nasal Cannula 3 lpm RT 04/07/21 23:44 Active Pulse Oximetry .spot check RT 04/07/21 23:45 Active RT Screen per Nursing Assess ONCE RT 04/07/21 23:28 Completed Respiratory Therapy Assessment DAILY RT 04/07/21 18:44 Active Patient Care Notes (Last 24 hours) 04/08/21 13:54 Case Management Note by Anabela Brown [facility] HAS ACCEPTED PATIENT. THEY WILL NEED NOTIFIED AT [phone] AT TIME OF DC. THEY WILL ALSO NEED FAXED THE DC INSTRUCTIONS, DC MED LEST AND DC SUMMARY (IF AVAILABLE) TO [phone] Initialized on 04/08/21 13:54 - END OF NOTE 04/08/21 11:43 Case Management Note by Anabela Brown REFERRAL FAXED TO [facility] AT THIS TIME Initialized on 04/08/21 11:43 - END OF NOTE Code(s): J18.9 - PNEUMONIA, UNSPECIFIED ORGANISM (2) COPD exacerbation Current Visit: Yes Status: Acute Code(s): J44.1 - CHRONIC OBSTRUCTIVE PULMONARY DISEASE W (ACUTE) EXACERBATION
[2021-04-08] MEDS: KLONOPIN PO SCH (21:41)
[2021-04-08] MEDS ORDERED: NON-FORMULARY ITEM (Gabapentin [Neurontin] 800 MG Tablet) PO SCH (22:00)
[2021-04-08] MEDS ORDERED: NON-FORMULARY ITEM (Quetiapine Fumarate [Quetiapine Fumarate] 300 MG Tablet) PO SCH (22:00)
[2021-04-09] MEDS: DUONEB 0.5-3 MG/3 ml Neb IH PRN (01:33)
[2021-04-09] MEDS ORDERED: solu-MEDROL ONE (04:13)
[2021-04-09] MEDS: solu-MEDROL 80 MG, Sterile H2O 10 ml 2 ML IV SCH ×6 (05:27→21:28)
[2021-04-09] MEDS: Advair Hfa 115/21 Common canister IH SCH ×2 (07:31→18:38)
[2021-04-09] MEDS: PROVENTIL 2.5 MG/3 ML NEB IH SCH ×4 (07:31→18:38)
--- NOTE | 2021-04-09 08:06 | PCM.NOTE ---
Date and Time: 04/09/21804 Subjective Assessment: doing ok - Review of Systems Constitutional: No Fever, No Chills Eyes: No Symptoms Ears, Nose, & Throat: No Symptoms Respiratory: Cough, Orthopnea, Short Of Breath, Wheezing Cardiac: No Chest Pain, No Edema, No Syncope Abdominal/Gastrointestinal: No Abdominal Pain, No Nausea, No Vomiting, No Diarrhea Genitourinary Symptoms: No Dysuria Musculoskeletal: No Back Pain, No Neck Pain Skin: No Rash Neurological: No Dizziness, No Focal Weakness, No Sensory Changes Psychological: No Symptoms Endocrine: No Symptoms Hematologic/Lymphatic: No Symptoms Immunological/Allergic: No Symptoms Objective Exam General Appearance: no apparent distress, alert Neurologic Exam: alert, oriented x 3, cooperative, normal mood/affect, nml cerebellar function, sensation nml, No motor deficits Skin Exam: normal color, warm, dry Eye Exam: PERRL, EOMI, eyes nml inspection Ears, Nose, Throat Exam: normal ENT inspection, pharynx normal, moist mucous membranes Neck Exam: normal inspection, non-tender, supple, full range of motion Respiratory Exam: diminished breath sounds, crackles/rales, wheezing, No respiratory distress Cardiovascular Exam: regular rate/rhythm, normal heart sounds Gastrointestinal/Abdomen Exam: soft, No tenderness, No mass Extremity Exam: normal inspection, normal range of motion Back Exam: normal inspection, normal range of motion, No CVA tenderness, No vertebral tenderness Pelvic Exam: deferred Rectal Exam: deferred OBJECTIVE DATA Vital Signs: Vital Signs - 24 hr Temp Pulse Resp BP Pulse Ox 04/09/21 07:34 81 22 97 04/09/21 07:24 96.7 F 87 19 155/63 97 04/09/21 04:00 97.9 F 86 18 142/75 98 04/09/21 01:33 91 H 20 97 04/08/21 23:49 96.8 F 106 H 20 142/66 97 04/08/21 19:54 96.5 F 105 H 22 156/82 97 04/08/21 19:03 97 04/08/21 18:51 105 H 28 H 97 04/08/21 16:00 96.6 F 103 H 26 H 114/53 97 04/08/21 15:32 117 H 28 H 95 04/08/21 12:00 95.8 F 86 29 H 115/57 97 04/08/21 11:47 106 H 22 96 Pain Assessment - Last Documented Pain Intensity 0 Intake and Output: Intake & Output 04/06/21 04/07/21 04/08/21 04/09/21 11:59 11:59 11:59 11:59 Intake Total 900 Output Total 200 Balance -200 900 Weight 80.1 kg Lab Results: Lab Results-Last 24 Hours 04/08/21 Range/Units 06:20 Troponin I < 0.012 (0.000-0.034) ng/mL Radiology Exams: Radiology Procedures Category Date Time Status CHEST 1 VIEW (PORTABLE) Stat Exams 04/07/21 17:47 Completed Multi-Disciplinary Progress Notes: Multi-Disciplinary Progress Notes 04/08/21 13:54 Case Management Note by Anabela Brown [facility] HAS ACCEPTED PATIENT. THEY WILL NEED NOTIFIED AT [phone] AT TIME OF DC. THEY WILL ALSO NEED FAXED THE DC INSTRUCTIONS, DC MED LEST AND DC SUMMARY (IF AVAILABLE) TO [phone] Initialized on 04/08/21 13:54 - END OF NOTE 04/08/21 11:43 Case Management Note by Anabela Brown REFERRAL FAXED TO [employer] AT THIS TIME Initialized on 04/08/21 11:43 - END OF NOTE Assessment/Plan (1) Pneumonia Current Visit: Yes Status: Acute Qualifiers: Pneumonia type: due to Klebsiella pneumoniae Laterality: left Lung location: lower lobe of lung Qualified Code(s): J15.0 - Pneumonia due to Klebsiella pneumoniae Assessment & Plan: Chief Complaint Diagnosis shortness of breath for 1-2 days Allergies Allergy/AdvReac Type Severity Reaction Status Date / Time morphine Allergy Severe Fainting Verified 04/07/21 23:02 oxycodone Allergy Shortness Verified 04/07/21 23:02 of Breath Penicillins Allergy Verified 04/07/21 23:02 oxymorphone AdvReac Severe Fainting Verified 04/07/21 23:02 [place] AdvReac Intermediate Headache Verified 04/07/21 23:02 bupropion HCl AdvReac Mild Hives Verified 04/07/21 23:02 [From Wellbutrin] Vital Signs (Last 24 hours) Temp Pulse Resp BP Pulse Ox 04/09/21 07:34 81 22 97 04/09/21 07:24 96.7 F 87 19 155/63 97 04/09/21 04:00 97.9 F 86 18 142/75 98 04/09/21 01:33 91 H 20 97 04/08/21 23:49 96.8 F 106 H 20 142/66 97 04/08/21 19:54 96.5 F 105 H 22 156/82 97 04/08/21 19:03 97 04/08/21 18:51 105 H 28 H 97 04/08/21 16:00 96.6 F 103 H 26 H 114/53 97 04/08/21 15:32 117 H 28 H 95 04/08/21 12:00 95.8 F 86 29 H 115/57 97 04/08/21 11:47 106 H 22 96 Current Medications Generic Name Dose Route Start Last Admin Trade Name Freq PRN Reason Stop Dose Admin Albuterol Sulfate 2.5 mg 04/08/21 07:00 04/09/21 07:31 Albuterol Sulfate 2.5 Mg/3 Ml Formerly [facility], 1928–1983 05/08/21 06:59 2.5 mg QIDRT VALERY Administration Albuterol/Ipratropium 3 ml 04/08/21 00:39 04/09/21 01:33 Ipratropium/Albuterol Sulfate 3 Ml Ampul.Formerly [facility], 1928–1983 05/08/21 00:38 3 ml Q4HPRN PRN Administration SHORTNESS OF BREATH/WHEEZING Calcium Carbonate/Glycine 750 mg 04/08/21 10:45 Calcium Carbonate 750 Mg 750 Mg Tab.Chew PO 05/08/21 10:44 Q1H PRN PRN INDIGESTION Clonazepam 2 mg 04/08/21 22:00 04/08/21 21:41 Clonazepam 2 Mg Tablet PO 05/08/21 21:59 2 mg QHS VALERY Administration Methylprednisolone Sodium 0 mg 04/08/21 00:00 04/09/21 05:27 Succinate 80 mg/ Sterile Water IV 05/08/21 00:00 80 mg 2 ml Q6HT VALERY Administration Famotidine 20 mg 04/08/21 10:00 04/08/21 09:36 Famotidine 20 Mg Tablet PO 05/08/21 09:59 20 mg DAILY VALERY Administration Fluticasone Propionate 0 gm 04/08/21 10:00 04/08/21 21:39 Fluticasone Propionate 16 Gm Bottle Nasal [place] NS 05/08/21 09:59 16 gm BID VALERY Administration Gabapentin 1,200 mg 04/08/21 10:00 04/08/21 09:35 Gabapentin 400 Mg Capsule PO 05/08/21 09:59 1,200 mg QAM VALERY Administration Gabapentin 2,400 mg 04/08/21 22:00 04/08/21 21:41 Gabapentin 400 Mg Capsule PO 05/08/21 21:59 2,400 mg HS VALERY Administration Levofloxacin/Dextrose 500 mg in 100 mls @ 100 mls/hr 04/08/21 10:00 04/08/21 09:34 Levofloxacin 500mg/100ml D5w IV 05/08/21 09:59 100 mls/hr Q24H10 VALERY Administration Isosorbide Mononitrate 30 mg 04/08/21 10:00 04/08/21 09:35 Isosorbide Mononitrate 30 Mg Tab PO 05/08/21 09:59 30 mg DAILY VALERY Administration Levothyroxine Sodium 25 mcg 04/08/21 10:00 04/08/21 09:36 Levothyroxine Sodium 25 Mcg Tablet PO 05/08/21 09:59 25 mcg DAILY VALERY Administration Multivitamins Therapeutic 1 tab 04/08/21 10:00 04/08/21 09:36 Multivitamins,Therapeutic 1 Tab Tab PO 05/08/21 09:59 1 tab DAILY VALERY Administration Nitroglycerin 0.4 mg 04/08/21 08:01 Nitroglycerin 0.4 Mg Tablet Bottle SL 05/08/21 08:00 UD PRN CHEST PAIN Pantoprazole Sodium 40 mg 04/08/21 10:00 04/08/21 09:36 Protonix (Pantoprazole) 40 Mg Tablet PO 05/08/21 09:59 40 mg DAILY VALERY Administration Quetiapine Fumarate 200 mg 04/08/21 10:00 04/08/21 09:35 Quetiapine Fumarate 100 Mg Tablet PO 05/08/21 09:59 200 mg DAILY VALERY Administration Quetiapine Fumarate 300 mg 04/08/21 22:00 04/08/21 21:41 Quetiapine Fumarate 100 Mg Tablet PO 05/08/21 21:59 300 mg QHS VALERY Administration Fluticasone/Salmeterol 2 puff 04/08/21 07:00 04/09/21 07:31 Fluticasone/Salmeterol 115/21 - 120 Puff Common Canister IH 05/08/21 06:59 2 puff BIDRT VALERY Administration Sertraline HCl 200 mg 04/08/21 10:00 04/08/21 09:35 Sertraline Hcl 50 Mg Tab PO 05/08/21 09:59 200 mg DAILY VALERY Administration Theophylline 300 mg 04/08/21 10:00 04/08/21 09:36 Theophylline Anhydrous 400 Mg Tab.Er.24hr Tablet PO 05/08/21 09:59 300 mg DAILY VALERY Administration Tizanidine HCl 4 mg 04/08/21 10:00 04/08/21 21:42 Tizanidine Hcl 4 Mg Tablet PO 05/08/21 09:59 4 mg TID VALERY Administration Discontinued Medications Generic Name Dose Route Start Last Admin Trade Name Freq PRN Reason Stop Dose Admin Albuterol Sulfate 2.5 mg 04/07/21 23:00 04/08/21 05:44 Albuterol Sulfate 2.5 Mg/3 Ml Neb 05/07/21 22:59 Not Given Q4HRT VALERY Albuterol/Ipratropium 3 ml 04/07/21 17:51 04/07/21 18:43 Ipratropium/Albuterol Sulfate 3 Ml Ampul.Neb IH 04/07/21 17:52 3 ml STAT ONE Administration Albuterol/Ipratropium Confirm 04/07/21 18:24 Ipratropium/Albuterol Sulfate 3 Ml Ampul.Neb Administered 04/07/21 18:25 Dose 3 ml IH .STK-MED ONE Clonazepam 2 mg 04/08/21 00:00 04/08/21 00:11 Clonazepam 0.5 Mg Tablet PO 04/08/21 00:01 Not Given ONCE ONE Clonazepam 2 mg 04/08/21 00:10 04/08/21 00:20 Clonazepam 2 Mg Tablet PO 04/08/21 00:11 2 mg ONCE ONE Administration Doxycycline Hyclate Confirm 04/07/21 21:02 Doxycycline Hyclate 100 Mg/Vial Injection Administered 04/07/21 21:03 Dose 100 mg IV .STK-MED ONE Gabapentin 2,400 mg 04/08/21 00:01 04/08/21 00:19 Gabapentin 400 Mg Capsule PO 04/08/21 00:02 2,400 mg ONCE ONE Administration Doxycycline Hyclate 100 mg/ 100 mls @ 100 mls/hr 04/07/21 22:00 04/07/21 21:07 Dextrose IV 05/07/21 21:59 100 mls/hr Q12HT VALERY Administration Dextrose Confirm 04/07/21 21:02 D5w 100ml Mini Bag 100 Ml Administered 04/07/21 21:03 Dose 100 mls @ ud IV .STK-MED ONE Methylprednisolone Sodium Succinate Confirm 04/08/21 00:16 Methylprednis Sod Succ 125 Mg/2 Ml Vial Administered 04/08/21 00:17 Dose 125 mg .ROUTE .STK-MED ONE Methylprednisolone Sodium Succinate Confirm 04/08/21 06:37 Methylprednis Sod Succ 125 Mg/2 Ml Vial Administered 04/08/21 06:38 Dose 125 mg .ROUTE .STK-MED ONE Methylprednisolone Sodium Succinate Confirm 04/09/21 04:13 Methylprednis Sod Succ 125 Mg/2 Ml Vial Administered 04/09/21 04:14 Dose 125 mg .ROUTE .STK-MED ONE Prednisone 20 mg 04/08/21 10:00 Prednisone 20 Mg Tablet PO 05/08/21 09:59 BID [facility] Quetiapine Fumarate 300 mg 04/08/21 00:03 04/08/21 00:20 Quetiapine Fumarate 100 Mg Tablet PO 04/08/21 00:04 300 mg ONCE ONE Administration Fluticasone/Salmeterol 1 each 04/08/21 07:00 Fluticasone/Salmeterol 250/50 Diskus IH 05/08/21 06:59 BIDRT [facility] Sterile Water Confirm 04/08/21 00:18 Water For Injection,Sterile 10 Ml Vial Administered 04/08/21 00:19 Dose 10 ml IJ .STK-MED ONE Sterile Water Confirm 04/08/21 06:38 Water For Injection,Sterile 10 Ml Vial Administered 04/08/21 06:39 Dose 10 ml IJ .STK-MED ONE Tizanidine HCl 4 mg 04/08/21 00:05 04/08/21 00:20 Tizanidine Hcl 4 Mg Tablet PO 04/08/21 00:06 4 mg ONCE ONE Administration Intake & Output (Last 24 hours) 04/06/21 04/07/21 04/08/21 04/09/21 11:59 11:59 11:59 11:59 Intake Total 900 Output Total 200 Balance -200 900 Weight 80.1 kg Microbiology Results (Last 24 hours) 04/07/21 18:45 Blood Blood Culture Gram Stain - Pending 04/07/21 18:45 Blood Blood Culture - Preliminary NO GROWTH TO DATE 04/07/21 18:40 Blood Blood Culture Gram Stain - Pending 04/07/21 18:40 Blood Blood Culture - Preliminary NO GROWTH TO DATE Laboratory Results (Last 24 hours) 04/08/21 06:20 Troponin I < 0.012 Orders (Last 24 hours) Category Date Time Status Calcium Carbonate 750 mg [Tums EX 750 MG] Med 04/08/21 10:45 Active 750 mg PO Q1H PRN PRN Clonazepam [Klonopin] Med 04/08/21 22:00 Active 2 mg PO QHS Famotidine 20 mg [Pepcid 20 MG] Med 04/08/21 10:00 Active 20 mg PO DAILY Fluticasone Propionate [Flonase NASAL] Med 04/08/21 10:00 Active 0 gm NS BID Gabapentin 400 mg [Neurontin 400 MG] Med 04/08/21 10:00 Active 1,200 mg PO QAM Gabapentin 400 mg [Neurontin 400 MG] Med 04/08/21 22:00 Active 2,400 mg PO HS Isosorbide Mononitrate 30 mg [Imdur 30 MG] Med 04/08/21 10:00 Active 30 mg PO DAILY Levofloxacin [Levofloxacin 500MG/100ML D5W] Med 04/08/21 10:00 Active 500 mg in 100 ml IV Q24H10 Levothyroxine Sodium 25 Mcg [Synthroid 25 Mcg] Med 04/08/21 10:00 Active 25 mcg PO DAILY Methylprednis Sod Succ 125 mg* [solu-MEDROL] Med 04/09/21 04:13 Discontinued 125 mg .ROUTE .STK-MED ONE Multivitamins,Therapeutic Tab* [Theragran Multivitamin* Med 04/08/21 10:00 Active ] 1 tab PO DAILY Nitroglycerin 0.4 mg Tablet [Nitrostat 0.4 MG Tablet Med 04/08/21 08:01 Active ] 0.4 mg SL UD PRN PANTOPRAZOLE 40 mg Tablet [Protonix 40MG Tablet] Med 04/08/21 10:00 Active 40 mg PO DAILY Prednisone 20 mg [Deltasone 20 mg] Med 04/08/21 10:00 Discontinued 20 mg PO BID Quetiapine Fumarate 100 mg [Seroquel 100 MG] Med 04/08/21 10:00 Active 200 mg PO DAILY Quetiapine Fumarate 100 mg [Seroquel 100 MG] Med 04/08/21 22:00 Active 300 mg PO QHS Sertraline HCl 50 mg [Zoloft 50 mg Tablet] Med 04/08/21 10:00 Active 200 mg PO DAILY Theophylline Anhydrous [Theophylline ER 24Hr] Med 04/08/21 10:00 Active 300 mg PO DAILY Tizanidine HCl 4 mg [Zanaflex 4 MG] Med 04/08/21 10:00 Active 4 mg PO TID Patient Care Notes (Last 24 hours) 04/08/21 13:54 Case Management Note by Anabela Brown [facility] HAS ACCEPTED PATIENT. THEY WILL NEED NOTIFIED AT [phone] AT TIME OF DC. THEY WILL ALSO NEED FAXED THE DC INSTRUCTIONS, DC MED LEST AND DC SUMMARY (IF AVAILABLE) TO [phone] Initialized on 04/08/21 13:54 - END OF NOTE 04/08/21 11:43 Case Management Note by Anabela Brown REFERRAL FAXED TO [facility] AT THIS TIME Initialized on 04/08/21 11:43 - END OF NOTE Code(s): J18.9 - PNEUMONIA, UNSPECIFIED ORGANISM (2) COPD exacerbation Current Visit: Yes Status: Acute Code(s): J44.1 - CHRONIC OBSTRUCTIVE PULMONARY DISEASE W (ACUTE) EXACERBATION
[2021-04-09] MEDS: Levofloxacin 500MG/100ML D5W 500 MG/100 ML BAG IV SCH (09:02)
[2021-04-09] MEDS: Neurontin 400 MG PO SCH ×2 (09:02→21:26)
[2021-04-09] MEDS: Zanaflex 4 MG PO SCH ×3 (09:03→21:27)
[2021-04-09] MEDS: THERAGRAN MULTIVITAMIN PO SCH (09:03)
[2021-04-09] MEDS: Seroquel 100 MG PO SCH ×2 (09:03→21:27)
[2021-04-09] MEDS: ZOLOFT 50 MG TABLET PO SCH (09:03)
[2021-04-09] MEDS: Imdur 30 MG PO SCH (09:03)
[2021-04-09] MEDS: Flonase NASAL NS SCH ×2 (09:04→21:26)
[2021-04-09] MEDS: SYNTHROID 25 MCG PO SCH (09:04)
[2021-04-09] MEDS: Protonix 40MG Tablet PO SCH (09:04)
[2021-04-09] MEDS: Pepcid 20 MG PO SCH (09:04)
[2021-04-09] MEDS: THEOPHYLLINE ER 24HR PO SCH (09:04)
[2021-04-09] MEDS: TYLENOL 325 MG PO PRN ×2 (12:12→21:28)
[2021-04-09] MEDS: KLONOPIN PO SCH (21:26)
[2021-04-09] MEDS: MILK OF MAGNESIA 30 ML PO PRN (21:28)
[2021-04-10] MEDS: DUONEB 0.5-3 MG/3 ml Neb IH PRN (01:40)
[2021-04-10 05:09] LABS: Hematocrit 29.5 % (35-47); Hemoglobin 8.8 gm/dl (12.0-16.0); Mean Corpuscular Hemoglobin 28.9 pg (26-32); Mean Corpuscular Hgb Concent. 29.8 g/dl (32-36); Mean Platelet Volume 9.9 fl (7.5-11.0); Platelet Count 331 K/mm3 (150-450); Red Blood Count 3.04 M/mm3 (4.1-5.4); Red Cell Distribution Width 15.9 % (11.5-14.0); White Blood Count 14.3 K/mm3 (4.0-10.5)
[2021-04-10 05:25] LABS: ALBUMIN 3.2 g/dL (3.5-5.0); ALKALINE PHOSPHATASE 49 U/L (38-126); ANION GAP 7.3 MEQ/L (5-15); BLOOD UREA NITROGEN 24 mg/dL (7-17); CHLORIDE 100 mmol/L (98-107); Calcium 8.8 mg/dL (8.4-10.2); Carbon Dioxide 34 mmol/L (22-30); Creatinine 1 0.74 mg/dL (0.52-1.04); EST GLOMERULAR FILTRATION RATE > 60.0 ML/MIN; Glucose 131 mg/dL (74-106); Potassium 4.4 mmol/L (3.5-5.1); SGOT/AST 15 U/L (14-36); SGPT/ALT 16 U/L (0-35); SODIUM 138 mmol/L (137-145)
[2021-04-10] MEDS: PROVENTIL 2.5 MG/3 ML NEB IH SCH ×4 (07:16→18:23)
[2021-04-10] MEDS: Advair Hfa 115/21 Common canister IH SCH ×2 (07:17→18:23)
--- NOTE | 2021-04-10 09:03 | XRAY ---
Indication: Pneumonia. COPD. Comparison: April 07, 2021. Portable chest demonstrates moderate clearing of previous diffuse left lung airspace disease with mild residual near the base. New minimal hazy interstitial alveolar opacities right base with new tiny effusion. New left base discoid atelectasis/scarring. Heart and mediastinal structures within normal limits.
[2021-04-10] MEDS: Levofloxacin 500MG/100ML D5W 500 MG/100 ML BAG IV SCH (09:28)
[2021-04-10] MEDS: ZOLOFT 50 MG TABLET PO SCH (09:28)
[2021-04-10] MEDS: Zanaflex 4 MG PO SCH ×3 (09:28→22:38)
[2021-04-10] MEDS: SYNTHROID 25 MCG PO SCH (09:29)
[2021-04-10] MEDS: Imdur 30 MG PO SCH (09:29)
[2021-04-10] MEDS: Neurontin 400 MG PO SCH ×2 (09:29→22:38)
[2021-04-10] MEDS: Pepcid 20 MG PO SCH (09:29)
[2021-04-10] MEDS: Seroquel 100 MG PO SCH ×2 (09:30→22:38)
[2021-04-10] MEDS: THERAGRAN MULTIVITAMIN PO SCH (09:30)
[2021-04-10] MEDS: Protonix 40MG Tablet PO SCH (09:30)
[2021-04-10] MEDS: Flonase NASAL NS SCH ×2 (09:31→22:37)
[2021-04-10] MEDS: THEOPHYLLINE ER 24HR PO SCH (09:32)
[2021-04-10] MEDS: solu-MEDROL 80 MG, Sterile H2O 10 ml 2 ML IV SCH ×4 (09:33→22:38)
[2021-04-10] MEDS: TYLENOL 325 MG PO PRN (13:00)
--- NOTE | 2021-04-10 13:38 | PCM.NOTE ---
Date and Time: 04/10/21 1408 Subjective Assessment: doing better today. last 24 hours events noted. - Review of Systems Constitutional: No Fever, No Chills Eyes: No Symptoms Ears, Nose, & Throat: No Symptoms Respiratory: Cough, Orthopnea, Short Of Breath, Wheezing Cardiac: No Chest Pain, No Edema, No Syncope Abdominal/Gastrointestinal: No Abdominal Pain, No Nausea, No Vomiting, No Diarrhea Genitourinary Symptoms: No Dysuria Musculoskeletal: No Back Pain, No Neck Pain Skin: No Rash Neurological: No Dizziness, No Focal Weakness, No Sensory Changes Psychological: No Symptoms Endocrine: No Symptoms Hematologic/Lymphatic: No Symptoms Immunological/Allergic: No Symptoms Objective Exam General Appearance: no apparent distress, alert Neurologic Exam: alert, oriented x 3, cooperative, normal mood/affect, nml cerebellar function, sensation nml, No motor deficits Skin Exam: normal color, warm, dry Eye Exam: PERRL, EOMI, eyes nml inspection Ears, Nose, Throat Exam: normal ENT inspection, pharynx normal, moist mucous membranes Neck Exam: normal inspection, non-tender, supple, full range of motion Respiratory Exam: diminished breath sounds, crackles/rales, rhonchi, wheezing, No respiratory distress Cardiovascular Exam: regular rate/rhythm, normal heart sounds Gastrointestinal/Abdomen Exam: soft, No tenderness, No mass Extremity Exam: normal inspection, normal range of motion Back Exam: normal inspection, normal range of motion, No CVA tenderness, No vertebral tenderness Pelvic Exam: deferred Rectal Exam: deferred OBJECTIVE DATA Vital Signs: Vital Signs - 24 hr Temp Pulse Resp BP Pulse Ox 04/10/21 11:27 97.5 F 93 H 16 117/63 95 04/10/21 10:23 95 H 20 97 04/10/21 07:19 87 16 97 04/10/21 07:09 98.3 F 85 18 152/68 100 04/10/21 04:00 96.1 F 78 20 131/62 100 04/10/21 01:40 92 H 22 97 04/10/21 00:00 98.9 F 92 H 24 125/61 98 04/09/21 19:45 96.4 F 102 H 28 H 142/66 97 04/09/21 18:41 101 H 20 96 04/09/21 16:00 98.7 F 94 H 16 119/61 96 04/09/21 14:39 101 H 22 95 Pain Assessment - Last Documented Pain Intensity 9 Pain Scale Used 0-10 Pain Scale Intake and Output: Intake & Output 04/08/21 04/09/21 04/10/21 04/11/21 11:59 11:59 11:59 11:59 Intake Total 900 440 Output Total 200 Balance -200 900 440 Weight 80.1 kg Lab Results: Lab Results-Last 24 Hours 04/10/21 04/10/21 Range/Units 04:50 04:50 WBC 14.3 H (4.0-10.5) K/mm3 RBC 3.04 L (4.1-5.4) M/mm3 Hgb 8.8 L (12.0-16.0) gm/dl Hct 29.5 L (35-47) % MCV 97.0 (78-100) fl MCH 28.9 (26-32) pg MCHC 29.8 L (32-36) g/dl RDW 15.9 H (11.5-14.0) % Plt Count 331 (150-450) K/mm3 MPV 9.9 (7.5-11.0) fl Sodium 138 (137-145) mmol/L Potassium 4.4 (3.5-5.1) mmol/L Chloride 100 (98-107) mmol/L Carbon Dioxide 34 H (22-30) mmol/L Anion Gap 7.3 (5-15) MEQ/L BUN 24 H (7-17) mg/dL Creatinine 0.74 (0.52-1.04) mg/dL Estimated GFR > 60.0 ML/MIN Glucose 131 H (74-106) mg/dL Calcium 8.8 (8.4-10.2) mg/dL Total Bilirubin 0.30 (0.2-1.3) mg/dL AST 15 (14-36) U/L ALT 16 (0-35) U/L Alkaline Phosphatase 49 (38-126) U/L Serum Total Protein 6.0 L (6.3-8.2) g/dL Albumin 3.2 L (3.5-5.0) g/dL Radiology Exams: Radiology Procedures Category Date Time Status CHEST 1 VIEW (PORTABLE) DAILY Exams 04/10/21 08:00 Completed Assessment/Plan (1) Pneumonia Current Visit: Yes Status: Acute Qualifiers: Pneumonia type: due to Klebsiella pneumoniae Laterality: left Lung location: lower lobe of lung Qualified Code(s): J15.0 - Pneumonia due to Klebsiella pneumoniae Assessment & Plan: Chief Complaint Diagnosis shortness of breath for 1-2 days Allergies Allergy/AdvReac Type Severity Reaction Status Date / Time morphine Allergy Severe Fainting Verified 04/07/21 23:02 oxycodone Allergy Shortness Verified 04/07/21 23:02 of Breath Penicillins Allergy Verified 04/07/21 23:02 oxymorphone AdvReac Severe Fainting Verified 04/07/21 23:02 [place] AdvReac Intermediate Headache Verified 04/07/21 23:02 bupropion HCl AdvReac Mild Hives Verified 04/07/21 23:02 [From Wellbutrin] Vital Signs (Last 24 hours) Temp Pulse Resp BP Pulse Ox 04/10/21 11:27 97.5 F 93 H 16 117/63 95 04/10/21 10:23 95 H 20 97 04/10/21 07:19 87 16 97 04/10/21 07:09 98.3 F 85 18 152/68 100 04/10/21 04:00 96.1 F 78 20 131/62 100 04/10/21 01:40 92 H 22 97 04/10/21 00:00 98.9 F 92 H 24 125/61 98 04/09/21 19:45 96.4 F 102 H 28 H 142/66 97 04/09/21 18:41 101 H 20 96 04/09/21 16:00 98.7 F 94 H 16 119/61 96 04/09/21 14:39 101 H 22 95 Current Medications Generic Name Dose Route Start Last Admin Trade Name Freq PRN Reason Stop Dose Admin Acetaminophen 650 mg 04/09/21 12:00 04/10/21 13:00 Acetaminophen 325 Mg Tablet PO 05/09/21 11:59 650 mg Q4H PRN PRN Administration PAIN AND/OR FEVER Albuterol Sulfate 2.5 mg 04/08/21 07:00 04/10/21 10:22 Albuterol Sulfate 2.5 Mg/3 Ml Neb IH 05/08/21 06:59 2.5 mg QIDRT VALERY Administration Albuterol/Ipratropium 3 ml 04/08/21 00:39 04/10/21 01:40 Ipratropium/Albuterol Sulfate 3 Ml Ampul.Neb IH 05/08/21 00:38 3 ml Q4HPRN PRN Administration SHORTNESS OF BREATH/WHEEZING Calcium Carbonate/Glycine 750 mg 04/08/21 10:45 Calcium Carbonate 750 Mg 750 Mg Tab.Chew PO 05/08/21 10:44 Q1H PRN PRN INDIGESTION Clonazepam 2 mg 04/08/21 22:00 04/09/21 21:26 Clonazepam 2 Mg Tablet PO 05/08/21 21:59 2 mg QHS VALERY Administration Methylprednisolone Sodium 0 mg 04/09/21 22:00 04/10/21 09:33 Succinate 80 mg/ Sterile Water IV 05/09/21 21:59 80 mg 2 ml Q12HT VALERY Administration Famotidine 20 mg 04/08/21 10:00 04/10/21 09:29 Famotidine 20 Mg Tablet PO 05/08/21 09:59 20 mg DAILY VALERY Administration Fluticasone Propionate 0 gm 04/08/21 10:00 04/10/21 09:31 Fluticasone Propionate 16 Gm Bottle Nasal [place] NS 05/08/21 09:59 1 gm BID VALERY Administration Gabapentin 1,200 mg 04/08/21 10:00 04/10/21 09:29 Gabapentin 400 Mg Capsule PO 05/08/21 09:59 1,200 mg QAM VALERY Administration Gabapentin 2,400 mg 04/08/21 22:00 04/09/21 21:26 Gabapentin 400 Mg Capsule PO 05/08/21 21:59 2,400 mg HS VALERY Administration Levofloxacin/Dextrose 500 mg in 100 mls @ 100 mls/hr 04/08/21 10:00 04/10/21 09:28 Levofloxacin 500mg/100ml D5w IV 05/08/21 09:59 100 mls/hr Q24H10 VALERY Administration Isosorbide Mononitrate 30 mg 04/08/21 10:00 04/10/21 09:29 Isosorbide Mononitrate 30 Mg Tab PO 05/08/21 09:59 30 mg DAILY VALERY Administration Levothyroxine Sodium 25 mcg 04/08/21 10:00 04/10/21 09:29 Levothyroxine Sodium 25 Mcg Tablet PO 05/08/21 09:59 25 mcg DAILY VALERY Administration Magnesium Hydroxide 30 ml 04/09/21 20:34 04/09/21 21:28 Magnesium Hydroxide 30 Ml Udcup PO 05/09/21 20:33 30 ml HS PRN PRN Administration CONSTIPATION Multivitamins Therapeutic 1 tab 04/08/21 10:00 04/10/21 09:30 Multivitamins,Therapeutic 1 Tab Tab PO 05/08/21 09:59 1 tab DAILY VALERY Administration Nitroglycerin 0.4 mg 04/08/21 08:01 Nitroglycerin 0.4 Mg Tablet Bottle SL 05/08/21 08:00 UD PRN CHEST PAIN Pantoprazole Sodium 40 mg 04/08/21 10:00 04/10/21 09:30 Protonix (Pantoprazole) 40 Mg Tablet PO 05/08/21 09:59 40 mg DAILY VALERY Administration Quetiapine Fumarate 200 mg 04/08/21 10:00 04/10/21 09:30 Quetiapine Fumarate 100 Mg Tablet PO 05/08/21 09:59 200 mg DAILY VALERY Administration Quetiapine Fumarate 300 mg 04/08/21 22:00 04/09/21 21:27 Quetiapine Fumarate 100 Mg Tablet PO 05/08/21 21:59 300 mg QHS VALERY Administration Fluticasone/Salmeterol 2 puff 04/08/21 07:00 04/10/21 07:17 Fluticasone/Salmeterol 115/21 - 120 Puff Common Canister 05/08/21 06:59 2 puff BIDRT VALERY Administration Sertraline HCl 200 mg 04/08/21 10:00 04/10/21 09:28 Sertraline Hcl 50 Mg Tab PO 05/08/21 09:59 200 mg DAILY VALERY Administration Theophylline 300 mg 04/08/21 10:00 04/10/21 09:32 Theophylline Anhydrous 400 Mg Tab.Er.24hr Tablet PO 05/08/21 09:59 300 mg DAILY VALERY Administration Tizanidine HCl 4 mg 04/08/21 10:00 04/10/21 09:28 Tizanidine Hcl 4 Mg Tablet PO 05/08/21 09:59 4 mg TID VALERY Administration Discontinued Medications Generic Name Dose Route Start Last Admin Trade Name Freq PRN Reason Stop Dose Admin Albuterol Sulfate 2.5 mg 04/07/21 23:00 04/08/21 05:44 Albuterol Sulfate 2.5 Mg/3 Ml Neb 05/07/21 22:59 Not Given Q4HRT AVLERY Albuterol/Ipratropium 3 ml 04/07/21 17:51 04/07/21 18:43 Ipratropium/Albuterol Sulfate 3 Ml Ampul.Neb IH 04/07/21 17:52 3 ml STAT ONE Administration Albuterol/Ipratropium Confirm 04/07/21 18:24 Ipratropium/Albuterol Sulfate 3 Ml Ampul.Neb Administered 04/07/21 18:25 Dose 3 ml IH .STK-MED ONE Clonazepam 2 mg 04/08/21 00:00 04/08/21 00:11 Clonazepam 0.5 Mg Tablet PO 04/08/21 00:01 Not Given ONCE ONE Clonazepam 2 mg 04/08/21 00:10 04/08/21 00:20 Clonazepam 2 Mg Tablet PO 04/08/21 00:11 2 mg ONCE ONE Administration Methylprednisolone Sodium 0 mg 04/08/21 00:00 04/09/21 11:59 Succinate 80 mg/ Sterile Water IV 05/08/21 00:00 80 mg 2 ml Q6HT VALERY Administration Doxycycline Hyclate Confirm 04/07/21 21:02 Doxycycline Hyclate 100 Mg/Vial Injection Administered 04/07/21 21:03 Dose 100 mg IV .STK-MED ONE Gabapentin 2,400 mg 04/08/21 00:01 04/08/21 00:19 Gabapentin 400 Mg Capsule PO 04/08/21 00:02 2,400 mg ONCE ONE Administration Doxycycline Hyclate 100 mg/ 100 mls @ 100 mls/hr 04/07/21 22:00 04/07/21 21:07 Dextrose IV 05/07/21 21:59 100 mls/hr Q12HT VALERY Administration Dextrose Confirm 04/07/21 21:02 D5w 100ml Mini Bag 100 Ml Administered 04/07/21 21:03 Dose 100 mls @ ud IV .STK-MED ONE Methylprednisolone Sodium Succinate Confirm 04/08/21 00:16 Methylprednis Sod Succ 125 Mg/2 Ml Vial Administered 04/08/21 00:17 Dose 125 mg .ROUTE .STK-MED ONE Methylprednisolone Sodium Succinate Confirm 04/08/21 06:37 Methylprednis Sod Succ 125 Mg/2 Ml Vial Administered 04/08/21 06:38 Dose 125 mg .ROUTE .STK-MED ONE Methylprednisolone Sodium Succinate Confirm 04/09/21 04:13 Methylprednis Sod Succ 125 Mg/2 Ml Vial Administered 04/09/21 04:14 Dose 125 mg .ROUTE .STK-MED ONE Prednisone 20 mg 04/08/21 10:00 Prednisone 20 Mg Tablet PO 05/08/21 09:59 BID VALERY Quetiapine Fumarate 300 mg 04/08/21 00:03 04/08/21 00:20 Quetiapine Fumarate 100 Mg Tablet PO 04/08/21 00:04 300 mg ONCE ONE Administration Fluticasone/Salmeterol 1 each 04/08/21 07:00 Fluticasone/Salmeterol 250/50 Diskus IH 05/08/21 06:59 BIDRT VALERY Sterile Water Confirm 04/08/21 00:18 Water For Injection,Sterile 10 Ml Vial Administered 04/08/21 00:19 Dose 10 ml IJ .STK-MED ONE Sterile Water Confirm 04/08/21 06:38 Water For Injection,Sterile 10 Ml Vial Administered 04/08/21 06:39 Dose 10 ml IJ .STK-MED ONE Tizanidine HCl 4 mg 04/08/21 00:05 04/08/21 00:20 Tizanidine Hcl 4 Mg Tablet PO 04/08/21 00:06 4 mg ONCE ONE Administration Intake & Output (Last 24 hours) 04/08/21 04/09/21 04/10/21 04/11/21 11:59 11:59 11:59 11:59 Intake Total 900 440 Output Total 200 Balance -200 900 440 Weight 80.1 kg Laboratory Results (Last 24 hours) 04/10/21 04/10/21 04:50 04:50 WBC 14.3 H RBC 3.04 L Hgb 8.8 L Hct 29.5 L MCV 97.0 MCH 28.9 MCHC 29.8 L RDW 15.9 H Plt Count 331 MPV 9.9 Sodium 138 Potassium 4.4 Chloride 100 Carbon Dioxide 34 H Anion Gap 7.3 BUN 24 H Creatinine 0.74 Estimated GFR > 60.0 Glucose 131 H Calcium 8.8 Total Bilirubin 0.30 AST 15 ALT 16 Alkaline Phosphatase 49 Serum Total Protein 6.0 L Albumin 3.2 L Orders (Last 24 hours) Category Date Time Status CHEST 1 VIEW (PORTABLE) DAILY Exams 04/10/21 08:00 Completed CBC AM.LAB Lab 04/10/21 04:50 Completed CBC AM.LAB Lab 04/11/21 04:00 Ordered CMP AM.LAB Lab 04/10/21 04:50 Completed CMP AM.LAB Lab 04/11/21 04:00 Ordered Magnesium Hydroxide 30 ml [Milk of Magnesia 30 ml Med 04/09/21 20:34 Active ] 30 ml PO HS PRN PRN Methylprednis Sod Succ 125 mg* [solu-MEDROL] 80 mg Med 04/09/21 22:00 Active Water For Injection,Sterile [Sterile H2O 10 ml] 2 ml IV Q12HT Patient Care Notes (Last 24 hours) 04/10/21 12:51 Nursing Note by Lauryn Layton ROUNDED WITH DR. CAMERON. PATIENT WILL DISCHARGE IN THE MORNING. NO NEW ORDERS Initialized on 04/10/21 12:51 - END OF NOTE 04/10/21 12:24 Nursing Note by Ama Rogel is here rounding on patient now. Initialized on 04/10/21 12:24 - END OF NOTE Code(s): J18.9 - PNEUMONIA, UNSPECIFIED ORGANISM (2) COPD exacerbation Current Visit: Yes Status: Acute Code(s): J44.1 - CHRONIC OBSTRUCTIVE PULMONARY DISEASE W (ACUTE) EXACERBATION
[2021-04-10] MEDS: KLONOPIN PO SCH (22:37)
[2021-04-10] MEDS: MILK OF MAGNESIA 30 ML PO PRN (22:47)
[2021-04-11 05:19] LABS: Hemoglobin 8.8 gm/dl (12.0-16.0); Mean Cell Volume 97.7 fl (78-100); Mean Corpuscular Hemoglobin 28.7 pg (26-32); Mean Corpuscular Hgb Concent. 29.3 g/dl (32-36); Platelet Count 333 K/mm3 (150-450); Red Blood Count 3.07 M/mm3 (4.1-5.4); Red Cell Distribution Width 15.8 % (11.5-14.0); White Blood Count 7.9 K/mm3 (4.0-10.5)
[2021-04-11 05:41] LABS: ALBUMIN 3.3 g/dL (3.5-5.0); ALKALINE PHOSPHATASE 51 U/L (38-126); ANION GAP 8.6 MEQ/L (5-15); BLOOD UREA NITROGEN 27 mg/dL (7-17); CHLORIDE 99 mmol/L (98-107); Calcium 8.7 mg/dL (8.4-10.2); Carbon Dioxide 34 mmol/L (22-30); Creatinine 1 0.85 mg/dL (0.52-1.04); EST GLOMERULAR FILTRATION RATE > 60.0 ML/MIN; Glucose 142 mg/dL (74-106); Potassium 4.4 mmol/L (3.5-5.1); SGOT/AST 17 U/L (14-36); SGPT/ALT 21 U/L (0-35); SODIUM 137 mmol/L (137-145)
[2021-04-11] MEDS: PROVENTIL 2.5 MG/3 ML NEB IH SCH ×2 (06:58→10:50)
[2021-04-11] MEDS: Advair Hfa 115/21 Common canister IH SCH (06:59)
--- NOTE | 2021-04-11 07:49 | PCM.NOTE ---
Date and Time: 04/11/21746 Subjective Assessment: doing ok - Review of Systems Constitutional: No Fever, No Chills Eyes: No Symptoms Ears, Nose, & Throat: No Symptoms Respiratory: Short Of Breath, No Cough Cardiac: No Chest Pain, No Edema, No Syncope Abdominal/Gastrointestinal: No Abdominal Pain, No Nausea, No Vomiting, No Diarrhea Genitourinary Symptoms: No Dysuria Musculoskeletal: No Back Pain, No Neck Pain Skin: No Rash Neurological: No Dizziness, No Focal Weakness, No Sensory Changes Psychological: No Symptoms Endocrine: No Symptoms Hematologic/Lymphatic: No Symptoms Immunological/Allergic: No Symptoms Objective Exam General Appearance: no apparent distress, alert Neurologic Exam: alert, oriented x 3, cooperative, normal mood/affect, nml cerebellar function, sensation nml, No motor deficits Skin Exam: normal color, warm, dry Eye Exam: PERRL, EOMI, eyes nml inspection Ears, Nose, Throat Exam: normal ENT inspection, pharynx normal, moist mucous membranes Neck Exam: normal inspection, non-tender, supple, full range of motion Respiratory Exam: diminished breath sounds, crackles/rales, rhonchi, No respiratory distress Cardiovascular Exam: regular rate/rhythm, normal heart sounds Gastrointestinal/Abdomen Exam: soft, No tenderness, No mass Extremity Exam: normal inspection, normal range of motion Back Exam: normal inspection, normal range of motion, No CVA tenderness, No vertebral tenderness Pelvic Exam: deferred Rectal Exam: deferred OBJECTIVE DATA Vital Signs: Vital Signs - 24 hr Temp Pulse Resp BP Pulse Ox 04/11/21 07:01 84 18 100 04/11/21 04:00 97.1 F 96 H 20 150/68 98 04/11/21 00:00 96.9 F 97 H 19 138/72 98 04/10/21 19:41 97.1 F 104 H 16 130/88 97 04/10/21 18:23 104 H 16 97 04/10/21 16:00 96.2 F 101 H 16 149/67 97 04/10/21 14:02 106 H 22 96 04/10/21 11:27 97.5 F 93 H 16 117/63 95 04/10/21 10:23 95 H 20 97 Pain Assessment - Last Documented Pain Intensity 0 Pain Scale Used 0-10 Pain Scale Intake and Output: Intake & Output 04/08/21 04/09/21 04/10/2104/11/22 11:59 11:59 11:59 11:59 Intake Total 900 440 940 Output Total 200 Balance -200 900 440 940 Weight 80.1 kg Lab Results: Lab Results-Last 24 Hours 04/11/21 04/11/21 Range/Units 04:50 04:50 WBC 7.9 (4.0-10.5) K/mm3 RBC 3.07 L (4.1-5.4) M/mm3 Hgb 8.8 L (12.0-16.0) gm/dl Hct 30.0 L (35-47) % MCV 97.7 (78-100) fl MCH 28.7 (26-32) pg MCHC 29.3 L (32-36) g/dl RDW 15.8 H (11.5-14.0) % Plt Count 333 (150-450) K/mm3 MPV 10.0 (7.5-11.0) fl Sodium 137 (137-145) mmol/L Potassium 4.4 (3.5-5.1) mmol/L Chloride 99 (98-107) mmol/L Carbon Dioxide 34 H (22-30) mmol/L Anion Gap 8.6 (5-15) MEQ/L BUN 27 H (7-17) mg/dL Creatinine 0.85 (0.52-1.04) mg/dL Estimated GFR > 60.0 ML/MIN Glucose 142 H (74-106) mg/dL Calcium 8.7 (8.4-10.2) mg/dL Total Bilirubin 0.20 (0.2-1.3) mg/dL AST 17 (14-36) U/L ALT 21 (0-35) U/L Alkaline Phosphatase 51 (38-126) U/L Serum Total Protein 6.0 L (6.3-8.2) g/dL Albumin 3.3 L (3.5-5.0) g/dL Radiology Exams: Radiology Procedures Category Date Time Status CHEST 1 VIEW (PORTABLE) DAILY Exams 04/10/21 08:00 Completed Assessment/Plan (1) Pneumonia Current Visit: Yes Status: Acute Qualifiers: Pneumonia type: due to Klebsiella pneumoniae Laterality: left Lung location: lower lobe of lung Qualified Code(s): J15.0 - Pneumonia due to Klebsiella pneumoniae Code(s): J18.9 - PNEUMONIA, UNSPECIFIED ORGANISM (2) COPD exacerbation Current Visit: Yes Status: Acute Code(s): J44.1 - CHRONIC OBSTRUCTIVE PULMONARY DISEASE W (ACUTE) EXACERBATION
[2021-04-11 08:03] VITALS: BP 164/76
[2021-04-11] MEDS: Imdur 30 MG PO SCH (09:35)
[2021-04-11] MEDS: Protonix 40MG Tablet PO SCH (09:35)
[2021-04-11] MEDS: Neurontin 400 MG PO SCH (09:35)
[2021-04-11] MEDS: Levofloxacin 500MG/100ML D5W 500 MG/100 ML BAG IV SCH (09:35)
[2021-04-11] MEDS: Pepcid 20 MG PO SCH (09:35)
[2021-04-11] MEDS: THEOPHYLLINE ER 24HR PO SCH (09:36)
[2021-04-11] MEDS: Seroquel 100 MG PO SCH (09:36)
[2021-04-11] MEDS: SYNTHROID 25 MCG PO SCH (09:36)
[2021-04-11] MEDS: THERAGRAN MULTIVITAMIN PO SCH (09:37)
[2021-04-11] MEDS: Zanaflex 4 MG PO SCH (09:37)
[2021-04-11] MEDS: solu-MEDROL 80 MG, Sterile H2O 10 ml 2 ML IV SCH ×2 (09:37)
[2021-04-11] MEDS: ZOLOFT 50 MG TABLET PO SCH (09:37)
[2021-04-11] MEDS: Flonase NASAL NS SCH (09:38)
[2021-04-11 10:55] VITALS: PULSE 102; O2SAT 97
--- NOTE | 2021-04-13 20:01 | PCM.DS ---
Discharge Summary Date of Admission: 04/07/21 22:28 Admitting Physician: WEN CAMERON Primary Care Provider: WEN CAMERON Allergies Allergies morphine Allergy (Severe, Verified 04/07/21 23:02) Fainting oxycodone Allergy (Verified 04/07/21 23:02) Shortness of Breath Penicillins Allergy (Verified 04/07/21 23:02) oxymorphone Adverse Reaction (Severe, Verified 04/07/21 23:02) Fainting [place]ut Adverse Reaction (Intermediate, Verified 04/07/21 23:02) Headache bupropion HCl [From Wellbutrin] Adverse Reaction (Mild, Verified 04/07/21 23:02) [facility] Summary - Hospital Course Hospital Course: Chief Complaint Diagnosis shortness of breath for 1-2 days Allergies Allergy/AdvReac Type Severity Reaction Status Date / Time morphine Allergy Severe Fainting Verified 04/07/21 23:02 oxycodone Allergy Shortness Verified 04/07/21 23:02 of Breath Penicillins Allergy Verified 04/07/21 23:02 oxymorphone AdvReac Severe Fainting Verified 04/07/21 23:02 [place]ut AdvReac Intermediate Headache Verified 04/07/21 23:02 bupropion HCl AdvReac Mild Hives Verified 04/07/21 23:02 [From Wellbutrin] Home Medications Medication Instructions Recorded Confirmed Last Taken Type cephALEXin [Cephalexin] 500 mg PO QID 7 Days #28 tablet 04/11/21 Unknown Rx Current Medications Discontinued Medications Generic Name Dose Route Start Last Admin Trade Name Freq PRN Reason Stop Dose Admin Acetaminophen 650 mg 04/09/21 12:00 04/10/21 13:00 Acetaminophen 325 Mg Tablet PO 05/09/21 11:59 650 mg Q4H PRN PRN Administration PAIN AND/OR FEVER Albuterol Sulfate 2.5 mg 04/07/21 23:00 04/08/21 05:44 Albuterol Sulfate 2.5 Mg/3 Ml Critical access hospital 05/07/21 22:59 Not Given Q4HRT VALERY Albuterol Sulfate 2.5 mg 04/08/21 07:00 04/11/21 10:50 Albuterol Sulfate 2.5 Mg/3 Ml Critical access hospital 05/08/21 06:59 2.5 mg QIDRT VALERY Administration Albuterol/Ipratropium 3 ml 04/07/21 17:51 04/07/21 18:43 Ipratropium/Albuterol Sulfate 3 Ml Ampul.Neb IH 04/07/21 17:52 3 ml STAT ONE Administration Albuterol/Ipratropium Confirm 04/07/21 18:24 Ipratropium/Albuterol Sulfate 3 Ml Ampul.Neb Administered 04/07/21 18:25 Dose 3 ml IH .STK-MED ONE Albuterol/Ipratropium 3 ml 04/08/21 00:39 04/10/21 01:40 Ipratropium/Albuterol Sulfate 3 Ml Ampul.Neb IH 05/08/21 00:38 3 ml Q4HPRN PRN Administration SHORTNESS OF BREATH/WHEEZING Calcium Carbonate/Glycine 750 mg 04/08/21 10:45 Calcium Carbonate 750 Mg 750 Mg Tab.Chew PO 05/08/21 10:44 Q1H PRN PRN INDIGESTION Clonazepam 2 mg 04/08/21 00:00 04/08/21 00:11 Clonazepam 0.5 Mg Tablet PO 04/08/21 00:01 Not Given ONCE ONE Clonazepam 2 mg 04/08/21 00:10 04/08/21 00:20 Clonazepam 2 Mg Tablet PO 04/08/21 00:11 2 mg ONCE ONE Administration Clonazepam 2 mg 04/08/21 22:00 04/10/21 22:37 Clonazepam 2 Mg Tablet PO 05/08/21 21:59 2 mg QHS VALERY Administration Methylprednisolone Sodium 0 mg 04/08/21 00:00 04/09/21 11:59 Succinate 80 mg/ Sterile Water IV 05/08/21 00:00 80 mg 2 ml Q6HT VALERY Administration Methylprednisolone Sodium 0 mg 04/09/21 22:00 04/11/21 09:37 Succinate 80 mg/ Sterile Water IV 05/09/21 21:59 80 mg 2 ml Q12HT VALERY Administration Doxycycline Hyclate Confirm 04/07/21 21:02 Doxycycline Hyclate 100 Mg/Vial Injection Administered 04/07/21 21:03 Dose 100 mg IV .STK-MED ONE Famotidine 20 mg 04/08/21 10:00 04/11/21 09:35 Famotidine 20 Mg Tablet PO 05/08/21 09:59 20 mg DAILY VALERY Administration Fluticasone Propionate 0 gm 04/08/21 10:00 04/11/21 09:38 Fluticasone Propionate 16 Gm Bottle Nasal Boling NS 05/08/21 09:59 16 gm BID VALERY Administration Gabapentin 2,400 mg 04/08/21 00:01 04/08/21 00:19 Gabapentin 400 Mg Capsule PO 04/08/21 00:02 2,400 mg ONCE ONE Administration Gabapentin 1,200 mg 04/08/21 10:00 04/11/21 09:35 Gabapentin 400 Mg Capsule PO 05/08/21 09:59 1,200 mg QAM VALERY Administration Gabapentin 2,400 mg 04/08/21 22:00 04/10/21 22:38 Gabapentin 400 Mg Capsule PO 05/08/21 21:59 2,400 mg HS VALERY Administration Doxycycline Hyclate 100 mg/ 100 mls @ 100 mls/hr 04/07/21 22:00 04/07/21 21:07 Dextrose IV 05/07/21 21:59 100 mls/hr Q12HT VALERY Administration Dextrose Confirm 04/07/21 21:02 D5w 100ml Mini Bag 100 Ml Administered 04/07/21 21:03 Dose 100 mls @ ud IV .STK-MED ONE Levofloxacin/Dextrose 500 mg in 100 mls @ 100 mls/hr 04/08/21 10:00 04/11/21 09:35 Levofloxacin 500mg/100ml D5w IV 05/08/21 09:59 100 mls/hr Q24H10 VALERY Administration Isosorbide Mononitrate 30 mg 04/08/21 10:00 04/11/21 09:35 Isosorbide Mononitrate 30 Mg Tab PO 05/08/21 09:59 30 mg DAILY VALERY Administration Levothyroxine Sodium 25 mcg 04/08/21 10:00 04/11/21 09:36 Levothyroxine Sodium 25 Mcg Tablet PO 05/08/21 09:59 25 mcg DAILY VALERY Administration Magnesium Hydroxide 30 ml 04/09/21 20:34 04/10/21 22:47 Magnesium Hydroxide 30 Ml Udcup PO 05/09/21 20:33 30 ml HS PRN PRN Administration CONSTIPATION Methylprednisolone Sodium Succinate Confirm 04/08/21 00:16 Methylprednis Sod Succ 125 Mg/2 Ml Vial Administered 04/08/21 00:17 Dose 125 mg .ROUTE .STK-MED ONE Methylprednisolone Sodium Succinate Confirm 04/08/21 06:37 Methylprednis Sod Succ 125 Mg/2 Ml Vial Administered 04/08/21 06:38 Dose 125 mg .ROUTE .STK-MED ONE Methylprednisolone Sodium Succinate Confirm 04/09/21 04:13 Methylprednis Sod Succ 125 Mg/2 Ml Vial Administered 04/09/21 04:14 Dose 125 mg .ROUTE .STK-MED ONE Multivitamins Therapeutic 1 tab 04/08/21 10:00 04/11/21 09:37 Multivitamins,Therapeutic 1 Tab Tab PO 05/08/21 09:59 1 tab DAILY VALERY Administration Nitroglycerin 0.4 mg 04/08/21 08:01 Nitroglycerin 0.4 Mg Tablet Bottle SL 05/08/21 08:00 UD PRN CHEST PAIN Pantoprazole Sodium 40 mg 04/08/21 10:00 04/11/21 09:35 Protonix (Pantoprazole) 40 Mg Tablet PO 05/08/21 09:59 40 mg DAILY VALERY Administration Prednisone 20 mg 04/08/21 10:00 Prednisone 20 Mg Tablet PO 05/08/21 09:59 BID VALERY Quetiapine Fumarate 300 mg 04/08/21 00:03 04/08/21 00:20 Quetiapine Fumarate 100 Mg Tablet PO 04/08/21 00:04 300 mg ONCE ONE Administration Quetiapine Fumarate 200 mg 04/08/21 10:00 04/11/21 09:36 Quetiapine Fumarate 100 Mg Tablet PO 05/08/21 09:59 200 mg DAILY VALERY Administration Quetiapine Fumarate 300 mg 04/08/21 22:00 04/10/21 22:38 Quetiapine Fumarate 100 Mg Tablet PO 05/08/21 21:59 300 mg QHS VALERY Administration Fluticasone/Salmeterol 1 each 04/08/21 07:00 Fluticasone/Salmeterol 250/50 Diskus IH 05/08/21 06:59 BIDRT VALERY Fluticasone/Salmeterol 2 puff 04/08/21 07:00 04/11/21 06:59 Fluticasone/Salmeterol 115/21 - 120 Puff Common Canister IH 05/08/21 06:59 2 puff BIDRT VALERY Administration Sertraline HCl 200 mg 04/08/21 10:00 04/11/21 09:37 Sertraline Hcl 50 Mg Tab PO 05/08/21 09:59 200 mg DAILY VALERY Administration Sterile Water Confirm 04/08/21 00:18 Water For Injection,Sterile 10 Ml Vial Administered 04/08/21 00:19 Dose 10 ml IJ .STK-MED ONE Sterile Water Confirm 04/08/21 06:38 Water For Injection,Sterile 10 Ml Vial Administered 04/08/21 06:39 Dose 10 ml IJ .STK-MED ONE Theophylline 300 mg 04/08/21 10:00 04/11/21 09:36 Theophylline Anhydrous 400 Mg Tab.Er.24hr Tablet PO 05/08/21 09:59 300 mg DAILY VALERY Administration Tizanidine HCl 4 mg 04/08/21 00:05 04/08/21 00:20 Tizanidine Hcl 4 Mg Tablet PO 04/08/21 00:06 4 mg ONCE ONE Administration Tizanidine HCl 4 mg 04/08/21 10:00 04/11/21 09:37 Tizanidine Hcl 4 Mg Tablet PO 05/08/21 09:59 4 mg TID VALERY Administration Intake & Output (Last 24 hours) 04/11/21 04/12/21 04/13/21 04/14/21 11:59 11:59 11:59 11:59 Intake Total 940 Balance 940 - Vitals & Intake/Output Vital Signs: Vital Signs Temperature 96.9 F 04/11/21 08:00 Pulse Rate 102 H 04/11/21 10:53 Respiratory Rate 22 04/11/21 10:53 Blood Pressure 164/76 04/11/21 08:00 O2 Sat by Pulse Oximetry 97 04/11/21 10:53 Intake & Output: Intake & Output 04/11/21 04/12/21 04/13/21 04/14/21 11:59 11:59 11:59 11:59 Intake Total 940 Balance 940 - Lab Result Diagrams: 04/11/21 04:50 04/11/21 04:50 Micro Results-Entire Visit: Microbiology 04/07/21 18:45 Blood Culture Gram Stain - Final Blood Not Reportable Blood Culture - Final NO GROWTH 04/07/21 18:40 Blood Culture Gram Stain - Final Blood Not Reportable Blood Culture - Final NO GROWTH - Procedures and Test Procedures and Tests throughout Hospitalization: Therapy Orders & Screens 04/07/21 18:44 Respiratory Therapy Assessment DAILY Comment: 04/07/21 23:28 RT Screen per Nursing Assess ONCE Comment: Protocol Order Physician Instructions: Greater than 3 points order RT Admission Screen Reason For Exam: Triggered on Admission Diagnosis: Pneumonia, COPD exacerbation Diagnosis: Pneumonia, COPD exacerbation Pneumonia: Yes Home O2: Yes Asthma: Yes CHF: Yes Home CPAP/BIPAP: No Home Nebs/MDI: Yes Total Points: 20 04/07/21 23:44 Oxygen Nasal Cannula 3 lpm Comment: Diagnosis: Pneumonia, COPD exacerbation 04/08/21 01:00 Flutter Therapy UD Comment: Diagnosis: Pneumonia, COPD exacerbation Discharge Exam General Appearance: no apparent distress, alert Neurologic Exam: alert, oriented x 3, cooperative, normal mood/affect, nml cerebellar function, sensation nml, No motor deficits Eye Exam: PERRL, EOMI, eyes nml inspection Ears, Nose, Throat Exam: normal ENT inspection, pharynx normal, moist mucous membranes Neck Exam: normal inspection, non-tender, supple, full range of motion Respiratory Exam: normal breath sounds, lungs clear, No respiratory distress Cardiovascular Exam: regular rate/rhythm, normal heart sounds Gastrointestinal/Abdomen Exam: soft, No tenderness, No mass Pelvic Exam: deferred Rectal Exam: deferred Back Exam: normal inspection, normal range of motion, No CVA tenderness, No vertebral tenderness Extremity Exam: normal inspection, normal range of motion Skin Exam: normal color, warm, dry Final Diagnosis/Problem List - Final Discharge Diagnosis/Problem (1) Pneumonia Status: Acute Code(s): J18.9 - PNEUMONIA, UNSPECIFIED ORGANISM (2) COPD exacerbation Status: Acute Code(s): J44.1 - CHRONIC OBSTRUCTIVE PULMONARY DISEASE W (ACUTE) EXACERBATION - Discharge Discharge Date: 04/11/21 Disposition: DC TO ANY "OTHER" SENIOR LIVING Condition: Stable Prescriptions: New cephALEXin [Cephalexin] 500 mg PO QID 7 Days #28 tablet Continue Clonazepam 0.5 mg [Klonopin 0.5 MG] 2 mg PO QHS Fluticasone/Salmeterol Disc [Advair/Wixella 250-50 Diskus 14 Dose] 1 puff IH BID Famotidine 20 mg [Pepcid 20 MG] 20 mg PO DAILY Albuterol/Ipratropium Mdi [Combivent Inhaler] 1 puff IH QID Sertraline HCl 100 mg [Zoloft 100 MG] 200 mg PO DAILY Isosorbide Mononitrate 30 mg [Imdur 30 MG] 30 mg PO DAILY Tizanidine HCl 4 mg [Zanaflex 4 MG] 4 mg PO TID Quetiapine Fumarate [Seroquel] 200 mg PO DAILY Vits W-Ca,Fe,FA(<1Mg) [] 1 each PO DAILY Nitroglycerin 0.4 mg Tablet [Nitrostat 0.4 MG Tablet] 0.4 mg SL UD PRN PRN Reason: Chest Pain Albuterol Common Canister [Ventolin Common Canister] 2 puff IH QID PRN PRN PRN Reason: Shortness Of Breath Quetiapine Fumarate 300 mg PO QHS Gabapentin 1,200 mg PO QAM Gabapentin [Neurontin] 2,400 mg PO HS Theophylline Anhydrous 300 mg PO DAILY Prednisone 20 mg [Deltasone 20 mg] 20 mg PO BID Fluticasone Propionate [Flonase NASAL] 1 spray NS BID Albuterol/Ipratropium 3ml Neb* [DUONEB 0.5-3 MG/3 ml Neb] 3 ml IH QIDRT PANTOPRAZOLE 40 mg Tablet [Protonix 40MG Tablet] 40 mg PO DAILY tab Levothyroxine Sodium 25 Mcg [Synthroid 25 Mcg] 25 mcg PO DAILY tablet Outpatient Orders: CHEST 2 VIEWS (PA AND LAT) Time Frame: 04/14/21, Facility: [facility], Location: RADIOLOGY Instructions: Pneumonia, Adult (DC) Additional Instructions: [facility] HAS BEEN ARRANGED. THEY WILL MAKE CONTACT TO SET UP A TIME TO COME SEE YOU. THEIR PHONE NUMBER IS [phone] Follow up with: WEN CAMERON MD [Primary Care Provider] - 04/15/21 2:30 pm (WILL BE SEEN IN THE [place] [facility]) Forms: Discharge Instructions
== END 2021-04-11 12:24 ==
LOC: ED 17:23 → MED SURG 22:28
PROVIDERS: ADMIT General Practice; ATTEND General Practice
DX: J18.9 Pneumonia, unspecified organism (principal); J44.1 Chronic obstructive pulmonary disease with (acute) exacerbation; I50.9 Heart failure, unspecified; I25.10 Atherosclerotic heart disease of native coronary artery without angina pectoris; E78.00 Pure hypercholesterolemia, unspecified; Z99.81 Dependence on supplemental oxygen; Z79.899 Other long term (current) drug therapy; Z20.828 Contact with and (suspected) exposure to other viral communicable diseases
CPT/HCPCS: 0241U; 36000; 36415; 71045; 80053; 81001; 83605; 83880; 84484; 85025; 85027; 87040; 93005; 93041; 94640; 94667; 94760; 96374; 99285; 93268; J1956; J2930; J7609; A9270-GY; G0378

== ENCOUNTER 2021-04-17 15:28 | Observation (INO) | payer MEDICARE ==
[2021-04-17] MEDS ORDERED: DUONEB 0.5-3 MG/3 ml Neb IH ONE ×3 (15:57→22:10)
[2021-04-17] MEDS ORDERED: solu-MEDROL 125 MG, Sterile H2O 10 ml 2 ML IV ONE ×2 (16:01)
[2021-04-17] MEDS ORDERED: LEVOFLOXACIN 750MG/150ML D5W 750 MG/150 ML BAG IV STA (16:01)
[2021-04-17 16:32] LABS: Hematocrit 32.2 % (35-47); Hemoglobin 9.6 gm/dl (12.0-16.0); Mean Cell Volume 94.4 fl (78-100); Mean Corpuscular Hemoglobin 28.2 pg (26-32); Mean Corpuscular Hgb Concent. 29.8 g/dl (32-36); Mean Platelet Volume 9.8 fl (7.5-11.0); Platelet Count 429 K/mm3 (150-450); Red Blood Count 3.41 M/mm3 (4.1-5.4)
[2021-04-17] MEDS ORDERED: LEVOFLOXACIN 750MG/150ML D5W 750 MG/150 ML BAG IV ONE (16:39)
[2021-04-17] MEDS ORDERED: Sterile H2O 10 ml IJ ONE (16:39)
[2021-04-17] MEDS ORDERED: solu-MEDROL ONE (16:39)
[2021-04-17 16:52] LABS: ALBUMIN 3.5 g/dL (3.5-5.0); ALKALINE PHOSPHATASE 63 U/L (38-126); ANION GAP 10.8 MEQ/L (5-15); BLOOD UREA NITROGEN 15 mg/dL (7-17); CHLORIDE 101 mmol/L (98-107); Calcium 9.5 mg/dL (8.4-10.2); Carbon Dioxide 34 mmol/L (22-30); Creatinine 1 0.94 mg/dL (0.52-1.04); EST GLOMERULAR FILTRATION RATE > 60.0 ML/MIN; Glucose 120 mg/dL (74-106); NT PRO BNP 176 pg/mL (0-900); Potassium 4.1 mmol/L (3.5-5.1); SGOT/AST 16 U/L (14-36); SGPT/ALT 17 U/L (0-35); SODIUM 141 mmol/L (137-145); Total Protein 6.2 g/dL (6.3-8.2)
--- NOTE | 2021-04-17 17:00 | XRAY ---
Indication: Pneumonia. Comparison: April 14, 2021. Portable chest again demonstrates normal heart and lungs with incidental hiatal hernia. No new/acute abnormalities.
--- NOTE | 2021-04-17 17:47 | ERPHSYRPT ---
- History of Present Illness Time Seen by Provider: 04/17/21 15:53 Source: patient Exam Limitations: no limitations Patient Subjective Stated Complaint: pt here for increase sob since yesterday, was dc from. hospital wednesday for same thing, pt has end stage COPD. Triage Nursing Assessment: pt alert, resp labored with any movement, o2 2lnc as per home, skin w/d/p,. co pain from cough. Physician History: 65 years old female with history of chronic respiratory failure secondary to COPD on 3 L oxygen who was recently admitted for bilateral pneumonia presented in the ER with increasing cough productive of clear to yellow thick sputum along with bilateral wheezing and shortness of breath despite using her nebs treatment at home along with steroid and antibiotic she was discharged on. Denies any fever or chills but generalized weakness. Timing/Duration: day(s), constant, gradual onset, worse Activities at Onset: activity, rest Severity of Dyspnea-Max: moderate Severity of Dyspnea-Current: moderate Possible Cause: frequent episodes Modifying Factors: Improves With: albuterol nebulizer, oxygen. Worsens With: coughing, exertion Associated Symptoms: cough, chest pain/discomfort, wheezing, productive cough, tightness Allergies/Adverse Reactions: morphine Allergy (Severe, Verified 04/07/21 23:02) Fainting oxycodone Allergy (Verified 04/07/21 23:02) Shortness of Breath Penicillins Allergy (Verified 04/07/21 23:02) oxymorphone Adverse Reaction (Severe, Verified 04/07/21 23:02) Fainting [place]ut Adverse Reaction (Intermediate, Verified 04/07/21 23:02) Headache bupropion HCl [From Wellbutrin] Adverse Reaction (Mild, Verified 04/07/21 23:02) Hives Home Medications: Albuterol/Ipratropium Mdi [Combivent Inhaler] 1 puff IH QID 12/29/12 [History] Clonazepam 0.5 mg [Klonopin 0.5 MG] 2 mg PO QHS 12/29/12 [History] Famotidine 20 mg [Pepcid 20 MG] 20 mg PO DAILY 12/29/12 [History] Fluticasone/Salmeterol Disc [Advair/Wixella 250-50 Diskus 14 Dose] 1 puff IH BID 12/29/12 [History] Sertraline HCl 100 mg [Zoloft 100 MG] 200 mg PO DAILY 12/17/13 [History] Isosorbide Mononitrate 30 mg [Imdur 30 MG] 30 mg PO DAILY 11/05/14 [History] Tizanidine HCl 4 mg [Zanaflex 4 MG] 4 mg PO TID 01/16/15 [History] Quetiapine Fumarate [Seroquel] 200 mg PO DAILY 10/17/15 [History] Vits W-Ca,Fe,FA(<1Mg) [] 1 each PO DAILY 10/18/15 [History] Nitroglycerin 0.4 mg Tablet [Nitrostat 0.4 MG Tablet] 0.4 mg SL UD PRN 11/15/15 [History] Albuterol Common Canister [Ventolin Common Canister] 2 puff IH QID PRN PRN 07/08/19 [History] Quetiapine Fumarate 300 mg PO QHS 07/08/19 [History] Gabapentin 1,200 mg PO QAM 04/08/20 [History] Gabapentin [Neurontin] 2,400 mg PO HS 04/08/20 [History] Theophylline Anhydrous 300 mg PO DAILY 12/23/20 [History] Fluticasone Propionate [Flonase NASAL] 1 spray NS BID 03/15/21 [History] Prednisone 20 mg [Deltasone 20 mg] 20 mg PO BID 03/15/21 [History] Hx Tetanus, Diphtheria Vaccination/Date Given: Yes Hx Influenza Vaccination/Date Given: Yes Hx Pneumococcal Vaccination/Date Given: Yes Immunizations Up to Date: Yes Travel Risk - International Travel Have you traveled outside of the country in past 3 weeks: No - Coronavirus Screening Are you exhibiting any of the following symptoms?: Yes Symptoms: Cough: New Onset, Shortness of Breath Close contact with a COVID-19 positive Pt in past 14-21 Days: No - Vaccine Status Have you recieved a Covid-19 vaccination: No - Vaccination Dates Comment: . - Review of Systems Constitutional: Fatigue, Weakness Eyes: No Symptoms Ears, Nose, & Throat: No Symptoms Respiratory: Cough, Dyspnea on Exertion (SCOTT), Wheezing Cardiac: No Symptoms Abdominal/Gastrointestinal: No Symptoms Genitourinary Symptoms: No Symptoms Musculoskeletal: No Symptoms Skin: No Symptoms Neurological: No Symptoms Psychological: No Symptoms Endocrine: No Symptoms Hematologic/Lymphatic: No Symptoms Immunological/Allergic: No Symptoms - Past Medical History Pertinent Past Medical History: Yes Neurological History: Migraines ENT History: No Pertinent History Cardiac History: Congestive Heart Failure, Coronary Artery Disease, High Cholesterol Respiratory History: Asthma, Bronchitis, COPD, Pneumonia Endocrine Medical History: Hypothyroidism Musculoskeletal History: Arthritis, Osteoporosis GI Medical History: GERD, Hernia, Polyps History: No Pertinent History Psycho-Social History: Anxiety, Bipolar, Depression Female Reproductive Disorders: Fibroids Other Medical History: 2 LEAKY VALVES. BORDERLINE PERSONALITY DISORDER, PTSD, manic depressive - Past Surgical History Past Surgical History: Yes Neuro Surgical History: No Pertinent History Cardiac: Cardiac Catheterization Respiratory: No Pertinent History Gastrointestinal: Other Genitourinary: No Pertinent History Musculoskeletal: Other Female Surgical History: Section Other Surgical History: ARM SURGERY-- left wrist laceration from a glass door, 2 c-sections, EGD with dilitation, colonoscopy, heart cath x 2 - Social History Smoking Status: Current some day smoker How long have you smoked: 40 Exposure to second hand smoke: No Alcohol Use: Socially Drug Use: none Patient Lives Alone: No Significant Family History: no pertinent family hx - Female History Hx Last Menstrual Period: post Hx Now: No - Nursing Vital Signs Nursing Vital Signs: Initial Vital Signs Respiratory Rate 24 04/17/21 15:31 O2 Sat by Pulse Oximetry 99 04/17/21 15:31 Pain Scale Pain Intensity 6 - Physical Exam General Appearance: no apparent distress, alert Eye Exam: PERRL/EOMI, eyes nml inspection Ears, Nose, Throat Exam: hearing grossly normal, pharyngeal erythema Neck Exam: normal inspection, non-tender, supple, full range of motion Respiratory Exam: diminished breath sounds, accessory muscle use, rhonchi, wheezing Cardiovascular/Chest Exam: normal heart sounds, regular rate/rhythm Abdominal/Gastrointestinal Exam: soft, No tenderness Extremity Exam: non-tender, normal range of motion Neurologic Exam: alert, oriented x 3, cooperative Skin Exam: normal color SpO2 Interpretation: normal SpO2: 97 O2 Delivery: Room Air - Course EKG Interpreted by Me: RATE (105), Sinus Tach, NORMAL AXIS, NORMAL INTERVALS, Non-specific ST Changes Ordered Tests: Active Orders 24 hr Category Date Time Status Gathering Worker STAT Care 04/17/21 16:01 Active EKG-ER Only STAT Care 04/17/21 16:01 Active IV Insertion STAT Care 04/17/21 16:01 Active Oxygen-ED Only Nasal Cannula 3 lpm Care 04/17/21 16:01 Active CHEST 1 VIEW (PORTABLE) Stat Exams 04/17/21 16:01 Completed BLOOD CULTURE Stat Lab 04/17/21 16:25 Received CBC W DIFF Stat Lab 04/17/21 16:25 Completed CMP Stat Lab 04/17/21 16:25 Completed Lactic Acid Stat Lab 04/17/21 16:01 Completed Lactic Acid Stat Lab 04/17/21 18:19 Received MAGNESIUM Stat Lab 04/17/21 16:25 Completed Manual Differential NC Stat Lab 04/17/21 16:25 Completed NT PRO BNP Stat Lab 04/17/21 16:25 Completed TROPONIN Q3H Lab 04/17/21 16:25 Completed TROPONIN Q3H Lab 04/17/21 19:15 Ordered TROPONIN Q3H Lab 04/17/21 22:15 Ordered TROPONIN Q3H Lab 04/18/21 01:15 Ordered TROPONIN Q3H Lab 04/18/21 04:15 Ordered Respiratory Therapy Assessment DAILY RT 04/17/21 16:26 Completed Transfer Order Routine Transfer 04/17/21 Ordered Medication Summary Discontinued Medications Generic Name Dose Route Start Last Admin Trade Name Freq PRN Reason Stop Dose Admin Albuterol/Ipratropium Confirm 04/17/21 15:57 Ipratropium/Albuterol Sulfate 3 Ml Ampul.Neb Administered 04/17/21 15:58 Dose 3 ml IH .STK-MED ONE Albuterol/Ipratropium 3 ml 04/17/21 16:01 04/17/21 16:00 Ipratropium/Albuterol Sulfate 3 Ml Ampul.Neb IH 04/17/21 16:02 3 ml STAT ONE Administration Methylprednisolone Sodium 0 mg 04/17/21 16:01 04/17/21 16:45 Succinate 125 mg/ Sterile IV 04/17/21 16:02 125 mg Water 2 ml STAT ONE Administration Levofloxacin/Dextrose 750 mg in 150 mls @ 100 mls/hr 04/17/21 16:01 04/17/21 18:03 Levofloxacin 750mg/150ml D5w IV 04/17/21 17:30 Infused STAT STA Infusion Levofloxacin/Dextrose Confirm 04/17/21 16:39 Levofloxacin 750mg/150ml D5w Administered 04/17/21 16:40 Dose 750 mg in 150 mls @ ud IV .STK-MED ONE Methylprednisolone Sodium Succinate Confirm 04/17/21 16:39 Methylprednis Sod Succ 125 Mg/2 Ml Vial Administered 04/17/21 16:40 Dose 125 mg .ROUTE .STK-MED ONE Sterile Water Confirm 04/17/21 16:39 Water For Injection,Sterile 10 Ml Vial Administered 04/17/21 16:40 Dose 10 ml IJ .STK-MED ONE Lab/Rad Data: Laboratory Result Diagrams 04/17/21 16:25 04/17/21 16:25 Laboratory Results 04/17/21 04/17/21 04/17/21 Range/Units 18:19 16:25 16:25 WBC (4.0-10.5) K/mm3 RBC (4.1-5.4) M/mm3 Hgb (12.0-16.0) gm/dl Hct (35-47) % MCV (78-100) fl MCH (26-32) pg MCHC (32-36) g/dl RDW (11.5-14.0) % Plt Count (150-450) K/mm3 MPV (7.5-11.0) fl Sodium 141 (137-145) mmol/L Potassium 4.1 (3.5-5.1) mmol/L Chloride 101 (98-107) mmol/L Carbon Dioxide 34 H (22-30) mmol/L Anion Gap 10.8 (5-15) MEQ/L BUN 15 (7-17) mg/dL Creatinine 0.94 (0.52-1.04) mg/dL Estimated GFR > 60.0 ML/MIN Glucose 120 H (74-106) mg/dL Lactic Acid (0.4-2.0) Calcium 9.5 (8.4-10.2) mg/dL Magnesium 2.0 (1.6-2.3) mg/dL Total Bilirubin 0.30 (0.2-1.3) mg/dL AST 16 (14-36) U/L ALT 17 (0-35) U/L Alkaline Phosphatase 63 (38-126) U/L Troponin I < 0.012 (0.000-0.034) ng/mL NT-Pro-B Natriuret Pep 176 (0-900) pg/mL Serum Total Protein 6.2 L (6.3-8.2) g/dL Albumin 3.5 (3.5-5.0) g/dL Influenza Type A Ag NEGATIVE (NEGATIVE) Influenza Type B Ag NEGATIVE (NEGATIVE) RSV (PCR) NEGATIVE (Negative) SARS-CoV-2 (PCR) NEGATIVE (NEGATIVE) 04/17/21 04/17/21 Range/Units 16:25 16:01 WBC 27.0 H* (4.0-10.5) K/mm3 RBC 3.41 L (4.1-5.4) M/mm3 Hgb 9.6 L (12.0-16.0) gm/dl Hct 32.2 L (35-47) % MCV 94.4 (78-100) fl MCH 28.2 (26-32) pg MCHC 29.8 L (32-36) g/dl RDW 16.0 H (11.5-14.0) % Plt Count 429 (150-450) K/mm3 MPV 9.8 (7.5-11.0) fl Sodium (137-145) mmol/L Potassium (3.5-5.1) mmol/L Chloride (98-107) mmol/L Carbon Dioxide (22-30) mmol/L Anion Gap (5-15) MEQ/L BUN (7-17) mg/dL Creatinine (0.52-1.04) mg/dL Estimated GFR ML/MIN Glucose (74-106) mg/dL Lactic Acid 2.6 H (0.4-2.0) Calcium (8.4-10.2) mg/dL Magnesium (1.6-2.3) mg/dL Total Bilirubin (0.2-1.3) mg/dL AST (14-36) U/L ALT (0-35) U/L Alkaline Phosphatase (38-126) U/L Troponin I (0.000-0.034) ng/mL NT-Pro-B Natriuret Pep (0-900) pg/mL Serum Total Protein (6.3-8.2) g/dL Albumin (3.5-5.0) g/dL Influenza Type A Ag (NEGATIVE) Influenza Type B Ag (NEGATIVE) RSV (PCR) (Negative) SARS-CoV-2 (PCR) (NEGATIVE) - Progress Progress: improved Air Movement: fair Progress Note: 04/17/21 19:08 given neb treatment and solumedrol , feeling better on re evaluation, given a dose of levaquin, has white count of 30 with lactate 2 , and no acute findings on CXR, has COPD Exacerbation. d/w and is accepted for admission , negative COVID 19 test. Blood Culture(s) Obtained: Yes Antibiotics given: Yes Discussed with : Bandar Will see patient in: hospital (observation) Counseled pt/family regarding: lab results, diagnosis, rad results - Departure Departure Disposition: Observation Clinical Impression: COPD exacerbation, Leukocytosis Condition: Stable Critical Care Time: No Referrals: WEN CAMERON MD [Primary Care Provider] - Follow up/PCP as directed Instructions: Chronic Obstructive Pulmonary Disease
[2021-04-17 19:01] LABS: INFLUENZA A NEGATIVE (NEGATIVE); INFLUENZA B NEGATIVE (NEGATIVE); RESPIRATORY SYNCTIAL VIRUS NEGATIVE (Negative); SARS-CoV-2 Xpert Express NEGATIVE (NEGATIVE)
[2021-04-17] MEDS ORDERED: PERCOCET TABLET 5/325MG PO STA (19:29)
[2021-04-17] MEDS ORDERED: PERCOCET TABLET 5/325MG ONE (19:37)
[2021-04-17] MEDS ORDERED: HUMALOG SQ PRN (22:13)
[2021-04-17] MEDS ORDERED: TYLENOL 325 MG PO PRN (22:13)
[2021-04-17] MEDS ORDERED: Zofran 4 MG/2 ML VIAL IV PRN (22:13)
[2021-04-17] MEDS: DUONEB 0.5-3 MG/3 ml Neb IH SCH (22:30)
[2021-04-17] MEDS: Advair Hfa 115/21 Common canister IH SCH (22:30)
[2021-04-17] MEDS ORDERED: clonazePAM PO ONE (23:00)
[2021-04-17] MEDS ORDERED: Neurontin 400 MG PO ONE (23:01)
[2021-04-17] MEDS ORDERED: Seroquel 100 MG PO ONE (23:02)
[2021-04-17] MEDS ORDERED: DUONEB 0.5-3 MG/3 ml Neb IH PRN (23:03)
[2021-04-17] MEDS ORDERED: Zanaflex 4 MG PO ONE (23:03)
[2021-04-17] MEDS ORDERED: KLONOPIN ONE (23:08)
[2021-04-17] MEDS: solu-MEDROL 60 MG, Sterile H2O 10 ml 2 ML IV SCH ×2 (23:14)
[2021-04-17] MEDS: TORAdol 10 MG TABLET PO PRN (23:15)
[2021-04-18] MEDS ORDERED: DUONEB 0.5-3 MG/3 ml Neb IH SCH (01:00)
[2021-04-18 03:14] LABS: ALBUMIN 3.1 g/dL (3.5-5.0); ALKALINE PHOSPHATASE 49 U/L (38-126); BLOOD UREA NITROGEN 19 mg/dL (7-17); CHLORIDE 100 mmol/L (98-107); Calcium 8.4 mg/dL (8.4-10.2); Carbon Dioxide 38 mmol/L (22-30); Creatinine 1 0.87 mg/dL (0.52-1.04); EST GLOMERULAR FILTRATION RATE > 60.0 ML/MIN; Glucose 156 mg/dL (74-106); SGOT/AST 14 U/L (14-36); SGPT/ALT 16 U/L (0-35); SODIUM 138 mmol/L (137-145); Total Protein 5.7 g/dL (6.3-8.2)
[2021-04-18 03:28] LABS: Hematocrit 26.1 % (35-47); Hemoglobin 7.7 gm/dl (12.0-16.0); Red Blood Count 2.75 M/mm3 (4.1-5.4); White Blood Count 14.5 K/mm3 (4.0-10.5)
[2021-04-18 03:29] LABS: Lymphocytes % 3.2 % (24.0-44.0); Mean Cell Volume 94.9 fl (78-100); Mean Corpuscular Hgb Concent. 29.5 g/dl (32-36); Mean Platelet Volume 9.9 fl (7.5-11.0); Neutrophil % 95.7 % (36.0-66.0); Platelet Count 339 K/mm3 (150-450)
[2021-04-18 03:30] LABS: Slide Review 1 YES
[2021-04-18] MEDS ORDERED: solu-MEDROL ONE (05:12)
[2021-04-18] MEDS: solu-MEDROL 60 MG, Sterile H2O 10 ml 2 ML IV SCH ×6 (06:46→18:57)
[2021-04-18] MEDS: TORAdol 10 MG TABLET PO PRN (06:46)
[2021-04-18] MEDS: DUONEB 0.5-3 MG/3 ml Neb IH SCH ×4 (07:01→18:56)
[2021-04-18] MEDS: Advair Hfa 115/21 Common canister IH SCH ×2 (07:02→18:57)
[2021-04-18] MEDS ORDERED: TORAdol 10 MG TABLET PO PRN (07:15)
--- NOTE | 2021-04-18 07:56 | PCM.HP ---
History of Present Illness - Chief Complaint Chief Complaint: copd exacerbation History of Present Illness: is a 65 year old female.with history of chronic respiratory failure secondary to COPD on 3 L oxygen who was recently admitted for bilateral pneumonia presented in the ER with increasing cough productive of clear to yellow thick sputum along with bilateral wheezing and shortness of breath despite using her nebs treatment at home along with steroid and antibiotic she was discharged on. Denies any fever or chills but generalized weakness. Timing/Duration: day(s), constant, gradual onset, worse Activities at Onset: activity, rest Severity of Dyspnea-Max: moderate Severity of Dyspnea-Current: moderate Possible Cause: frequent episodes Modifying Factors: Improves With: albuterol nebulizer, oxygen. Worsens With: coughing, exertion Associated Symptoms: cough, chest pain/discomfort, wheezing, productive cough, tightness - Review of Systems Constitutional: No Fever, No Chills Eyes: No Symptoms Ears, Nose, & Throat: No Symptoms Respiratory: Cough, Orthopnea, Short Of Breath, Wheezing Cardiac: No Chest Pain, No Edema, No Syncope Abdominal/Gastrointestinal: No Abdominal Pain, No Nausea, No Vomiting, No Diarrhea Genitourinary Symptoms: No Dysuria Musculoskeletal: No Back Pain, No Neck Pain Skin: No Rash Neurological: No Dizziness, No Focal Weakness, No Sensory Changes Psychological: No Symptoms Endocrine: No Symptoms Hematologic/Lymphatic: No Symptoms Immunological/Allergic: No Symptoms Medications & Allergies Home Medications: Home Medication List Albuterol/Ipratropium Mdi [Combivent Inhaler] 1 puff IH QID 12/29/12 [History Confirmed 04/17/21] Clonazepam 0.5 mg [Klonopin 0.5 MG] 2 mg PO QHS 12/29/12 [History Confirmed 04/17/21] Famotidine 20 mg [Pepcid 20 MG] 20 mg PO DAILY 12/29/12 [History Confirmed 04/17/21] Fluticasone/Salmeterol Disc [Advair/Wixella 250-50 Diskus 14 Dose] 1 puff IH BID 12/29/12 [History Confirmed 04/17/21] Sertraline HCl 100 mg [Zoloft 100 MG] 200 mg PO DAILY 12/17/13 [History Confirmed 04/17/21] Isosorbide Mononitrate 30 mg [Imdur 30 MG] 30 mg PO DAILY 11/05/14 [History Confirmed 04/17/21] Tizanidine HCl 4 mg [Zanaflex 4 MG] 4 mg PO TID 01/16/15 [History Confirmed 04/17/21] Quetiapine Fumarate [Seroquel] 200 mg PO DAILY 10/17/15 [History Confirmed 04/17/21] Vits W-Ca,Fe,FA(<1Mg) [] 1 each PO DAILY 10/18/15 [History Confirmed 04/17/21] Nitroglycerin 0.4 mg Tablet [Nitrostat 0.4 MG Tablet] 0.4 mg SL UD PRN 11/15/15 [History Confirmed 04/17/21] Albuterol Common Canister [Ventolin Common Canister] 2 puff IH QID PRN PRN 07/08/19 [History Confirmed 04/17/21] Quetiapine Fumarate 300 mg PO QHS 07/08/19 [History Confirmed 04/17/21] Gabapentin 1,200 mg PO QAM 04/08/20 [History Confirmed 04/17/21] Gabapentin [Neurontin] 2,400 mg PO HS 04/08/20 [History Confirmed 04/17/21] Theophylline Anhydrous 300 mg PO DAILY 12/23/20 [History Confirmed 04/17/21] Fluticasone Propionate [Flonase NASAL] 1 spray NS BID 03/15/21 [History Confirmed 04/17/21] Prednisone 20 mg [Deltasone 20 mg] 20 mg PO BID 03/15/21 [History Confirmed 04/17/21] Albuterol/Ipratropium 3ml Neb* [DUONEB 0.5-3 MG/3 ml Neb] 3 ml IH QIDRT 03/17/21 [Rx Confirmed 04/17/21] Levothyroxine Sodium 25 Mcg [Synthroid 25 Mcg] 25 mcg PO DAILY tablet 03/17/21 [Rx Confirmed 04/17/21] PANTOPRAZOLE 40 mg Tablet [Protonix 40MG Tablet] 40 mg PO DAILY tab 03/17/21 [Rx Confirmed 04/17/21] cephALEXin [Cephalexin] 500 mg PO QID 7 Days #28 tablet 04/11/21 [Rx Confirmed 04/17/21] Allergies/Adverse Reactions: Allergies Allergy/AdvReac Type Severity Reaction Status Date / Time morphine Allergy Severe Fainting Verified 04/07/21 23:02 oxycodone Allergy Shortness Verified 04/07/21 23:02 of Breath Penicillins Allergy Verified 04/07/21 23:02 oxymorphone AdvReac Severe Fainting Verified 04/07/21 23:02 [place] AdvReac Intermediate Headache Verified 04/07/21 23:02 bupropion HCl AdvReac Mild Hives Verified 04/07/21 23:02 [From Wellbutrin] - Past Medical History Past Medical History: Yes Neurological History: Migraines ENT History: No Pertinent History Cardiac History: Congestive Heart Failure, Coronary Artery Disease, High Cholesterol Respiratory History: Asthma, Bronchitis, COPD, Pneumonia Endocrine Medical History: Hypothyroidism Musculoskelatal History: Arthritis, Osteoporosis GI Medical History: GERD, Hernia, Polyps History: No Pertinent History Pyscho-Social History: Anxiety, Bipolar, Depression Reproductive Disorders: Fibroids Comment: 2 LEAKY VALVES. BORDERLINE PERSONALITY DISORDER, PTSD, manic depressive - Female History Hx Last Menstrual Period: post Are you now?: No - Past Surgical History Past Surgical History: Yes Neuro Surgical History: No Pertinent History Cardiac History: Cardiac Catheterization Respiratory Surgery: No Pertinent History GI Surgical History: Other Genitourinary Surgical Hx: No Pertinent History Musculskeletal Surgical Hx: Other Female Surgical History: Section Other Surgical History: ARM SURGERY-- left wrist laceration from a glass door, 2 c-sections, EGD with dilitation, colonoscopy, heart cath x 2 - Social History Smoking Status: Current some day smoker How long have you smoked: 40 Exposure to second hand smoke: No Alcohol: None Drug Use: none Significant Family History: no pertinent family hx - Physical Exam Vital Signs: Vital Signs - 24 hr Temp Pulse Resp BP Pulse Ox 04/18/21 07:02 89 20 98 04/18/21 04:10 98.5 F 67 22 128/64 98 04/17/21 22:30 97 H 23 98 04/17/21 22:22 97.1 F 49 L 20 134/7 97 04/17/21 21:00 90 24 160/70 99 04/17/21 20:24 98 H 24 167/72 99 04/17/21 19:33 98 H 24 166/70 98 04/17/21 19:10 97 04/17/21 18:02 76 18 136/67 97 04/17/21 17:12 78 22 97 04/17/21 16:27 104 H 22 98 04/17/21 16:01 97 H 24 128/96 98 04/17/21 15:31 24 99 General Appearance: no apparent distress, alert Neurologic Exam: alert, oriented x 3, cooperative, normal mood/affect, nml cerebellar function, nml station & gait, sensation nml, No motor deficits Eye Exam: PERRL/EOMI, eyes nml inspection Ears, Nose, Throat Exam: normal ENT inspection, TMs normal, pharynx normal, moist mucous membranes Neck Exam: normal inspection, non-tender, supple, full range of motion Respiratory Exam: diminished breath sounds, accessory muscle use, crackles/rales, rhonchi, wheezing, No respiratory distress Cardiovascular Exam: regular rate/rhythm, normal heart sounds, normal peripheral pulses Gastrointestinal/Abdomen Exam: soft, normal bowel sounds, No tenderness, No mass Back Exam: normal inspection, normal range of motion, No CVA tenderness, No vertebral tenderness Extremity Exam: normal inspection, normal range of motion, pelvis stable Skin Exam: normal color, warm, dry, No rash Lymphatic Exam: No adenopathy Results - Labs Lab/Micro Results: Lab Results-Last 24 Hours 04/17/21 04/17/21 04/17/21 Range/Units 16:01 16:25 16:25 WBC 27.0 H* (4.0-10.5) K/mm3 RBC 3.41 L (4.1-5.4) M/mm3 Hgb 9.6 L (12.0-16.0) gm/dl Hct 32.2 L (35-47) % MCV 94.4 (78-100) fl MCH 28.2 (26-32) pg MCHC 29.8 L (32-36) g/dl RDW 16.0 H (11.5-14.0) % Plt Count 429 (150-450) K/mm3 MPV 9.8 (7.5-11.0) fl Gran % (36.0-66.0) % Lymphocytes % (24.0-44.0) % Monocytes % (0.0-12.0) % Basophils % (0.0-0.4) % Smear Path Review Pending Sodium 141 (137-145) mmol/L Potassium 4.1 (3.5-5.1) mmol/L Chloride 101 (98-107) mmol/L Carbon Dioxide 34 H (22-30) mmol/L Anion Gap 10.8 (5-15) MEQ/L BUN 15 (7-17) mg/dL Creatinine 0.94 (0.52-1.04) mg/dL Estimated GFR > 60.0 ML/MIN Glucose 120 H (74-106) mg/dL Lactic Acid 2.6 H (0.4-2.0) Calcium 9.5 (8.4-10.2) mg/dL Magnesium 2.0 (1.6-2.3) mg/dL Total Bilirubin 0.30 (0.2-1.3) mg/dL AST 16 (14-36) U/L ALT 17 (0-35) U/L Alkaline Phosphatase 63 (38-126) U/L Troponin I (0.000-0.034) ng/mL NT-Pro-B Natriuret Pep 176 (0-900) pg/mL Serum Total Protein 6.2 L (6.3-8.2) g/dL Albumin 3.5 (3.5-5.0) g/dL Influenza Type A Ag (NEGATIVE) Influenza Type B Ag (NEGATIVE) RSV (PCR) (Negative) SARS-CoV-2 (PCR) (NEGATIVE) Slides for Path Review 04/17/21 04/17/21 04/17/21 Range/Units 16:25 18:19 19:00 WBC (4.0-10.5) K/mm3 RBC (4.1-5.4) M/mm3 Hgb (12.0-16.0) gm/dl Hct (35-47) % MCV (78-100) fl MCH (26-32) pg MCHC (32-36) g/dl RDW (11.5-14.0) % Plt Count (150-450) K/mm3 MPV (7.5-11.0) fl Gran % (36.0-66.0) % Lymphocytes % (24.0-44.0) % Monocytes % (0.0-12.0) % Basophils % (0.0-0.4) % Smear Path Review Sodium (137-145) mmol/L Potassium (3.5-5.1) mmol/L Chloride (98-107) mmol/L Carbon Dioxide (22-30) mmol/L Anion Gap (5-15) MEQ/L BUN (7-17) mg/dL Creatinine (0.52-1.04) mg/dL Estimated GFR ML/MIN Glucose (74-106) mg/dL Lactic Acid 2.1 H (0.4-2.0) Calcium (8.4-10.2) mg/dL Magnesium (1.6-2.3) mg/dL Total Bilirubin (0.2-1.3) mg/dL AST (14-36) U/L ALT (0-35) U/L Alkaline Phosphatase (38-126) U/L Troponin I < 0.012 (0.000-0.034) ng/mL NT-Pro-B Natriuret Pep (0-900) pg/mL Serum Total Protein (6.3-8.2) g/dL Albumin (3.5-5.0) g/dL Influenza Type A Ag NEGATIVE (NEGATIVE) Influenza Type B Ag NEGATIVE (NEGATIVE) RSV (PCR) NEGATIVE (Negative) SARS-CoV-2 (PCR) NEGATIVE (NEGATIVE) Slides for Path Review 04/17/21 04/17/21 04/17/21 Range/Units 20:05 22:15 22:18 WBC (4.0-10.5) K/mm3 RBC (4.1-5.4) M/mm3 Hgb (12.0-16.0) gm/dl Hct (35-47) % MCV (78-100) fl MCH (26-32) pg MCHC (32-36) g/dl RDW (11.5-14.0) % Plt Count (150-450) K/mm3 MPV (7.5-11.0) fl Gran % (36.0-66.0) % Lymphocytes % (24.0-44.0) % Monocytes % (0.0-12.0) % Basophils % (0.0-0.4) % Smear Path Review Sodium (137-145) mmol/L Potassium (3.5-5.1) mmol/L Chloride (98-107) mmol/L Carbon Dioxide (22-30) mmol/L Anion Gap (5-15) MEQ/L BUN (7-17) mg/dL Creatinine (0.52-1.04) mg/dL Estimated GFR ML/MIN Glucose (74-106) mg/dL Lactic Acid 0.9 (0.4-2.0) Calcium (8.4-10.2) mg/dL Magnesium (1.6-2.3) mg/dL Total Bilirubin (0.2-1.3) mg/dL AST (14-36) U/L ALT (0-35) U/L Alkaline Phosphatase (38-126) U/L Troponin I < 0.012 < 0.012 (0.000-0.034) ng/mL NT-Pro-B Natriuret Pep (0-900) pg/mL Serum Total Protein (6.3-8.2) g/dL Albumin (3.5-5.0) g/dL Influenza Type A Ag (NEGATIVE) Influenza Type B Ag (NEGATIVE) RSV (PCR) (Negative) SARS-CoV-2 (PCR) (NEGATIVE) Slides for Path Review 04/18/21 04/18/21 04/18/21 Range/Units 02:15 02:15 02:15 WBC 14.5 H (4.0-10.5) K/mm3 RBC 2.75 L (4.1-5.4) M/mm3 Hgb 7.7 L (12.0-16.0) gm/dl Hct 26.1 L (35-47) % MCV 94.9 (78-100) fl MCH 28.0 (26-32) pg MCHC 29.5 L (32-36) g/dl RDW (11.5-14.0) % Plt Count 339 (150-450) K/mm3 MPV 9.9 (7.5-11.0) fl Gran % 95.7 H (36.0-66.0) % Lymphocytes % 3.2 L (24.0-44.0) % Monocytes % 1.0 (0.0-12.0) % Basophils % 0.1 (0.0-0.4) % Smear Path Review Sodium 138 (137-145) mmol/L Potassium 4.0 (3.5-5.1) mmol/L Chloride 100 (98-107) mmol/L Carbon Dioxide 38 H (22-30) mmol/L Anion Gap 4.0 L (5-15) MEQ/L BUN 19 H (7-17) mg/dL Creatinine 0.87 (0.52-1.04) mg/dL Estimated GFR > 60.0 ML/MIN Glucose 156 H (74-106) mg/dL Lactic Acid (0.4-2.0) Calcium 8.4 (8.4-10.2) mg/dL Magnesium (1.6-2.3) mg/dL Total Bilirubin 0.20 (0.2-1.3) mg/dL AST 14 (14-36) U/L ALT 16 (0-35) U/L Alkaline Phosphatase 49 (38-126) U/L Troponin I < 0.012 (0.000-0.034) ng/mL NT-Pro-B Natriuret Pep (0-900) pg/mL Serum Total Protein 5.7 L (6.3-8.2) g/dL Albumin 3.1 L (3.5-5.0) g/dL Influenza Type A Ag (NEGATIVE) Influenza Type B Ag (NEGATIVE) RSV (PCR) (Negative) SARS-CoV-2 (PCR) (NEGATIVE) Slides for Path Review YES - Radiology Impressions Radiology Exams & Impressions: Radiology Procedures Category Date Time Status CHEST 1 VIEW (PORTABLE) Stat Exams 04/17/21 16:01 Completed - Other Procedures and Tests Respiratory Therapy 04/17/21 22:13 Oxygen Nasal Cannula 3 lpm 04/17/21 23:02 Respiratory Therapy Assessment DAILY Assessment/Plan (1) COPD exacerbation Current Visit: Yes Status: Acute Code(s): J44.1 - CHRONIC OBSTRUCTIVE PULMONARY DISEASE W (ACUTE) EXACERBATION (2) Leukocytosis Current Visit: Yes Status: Acute Qualifiers: Leukocytosis type: unspecified Qualified Code(s): D72.829 - Elevated white blood cell count, unspecified Code(s): D72.829 - ELEVATED WHITE BLOOD CELL COUNT, UNSPECIFIED
[2021-04-18] MEDS ORDERED: Levofloxacin 500MG/100ML D5W 500 MG/100 ML BAG IV SCH (10:00)
[2021-04-18] MEDS ORDERED: PROTONIX 40 MG IV IV SCH (10:00)
[2021-04-18] MEDS: Tums EX 750 MG PO PRN ×2 (11:39→19:07)
[2021-04-18] MEDS ORDERED: Nitrostat 0.4 MG Tablet SL PRN (13:53)
[2021-04-18] MEDS: THERAGRAN MULTIVITAMIN PO SCH (16:39)
[2021-04-18] MEDS: Protonix 40MG Tablet PO SCH (16:40)
[2021-04-18] MEDS: Imdur 30 MG PO SCH (16:40)
[2021-04-18] MEDS: THEOPHYLLINE ER 24HR PO SCH (16:40)
[2021-04-18] MEDS: ZOLOFT 50 MG TABLET PO SCH (16:40)
[2021-04-18] MEDS: Zanaflex 4 MG PO SCH ×2 (16:40→22:25)
[2021-04-18] MEDS: Pepcid 20 MG PO SCH (16:40)
[2021-04-18] MEDS ORDERED: NON-FORMULARY ITEM (Gabapentin [Neurontin] 800 MG Tablet) PO SCH (22:00)
[2021-04-18] MEDS ORDERED: Neurontin 400 MG PO SCH (22:00)
[2021-04-18] MEDS ORDERED: clonazePAM PO SCH (22:00)
[2021-04-18] MEDS ORDERED: NON-FORMULARY ITEM (Quetiapine Fumarate [Quetiapine Fumarate] 300 MG Tablet) PO SCH ×2 (22:00)
[2021-04-18] MEDS ORDERED: KLONOPIN PO SCH (22:00)
[2021-04-18] MEDS ORDERED: Seroquel 100 MG ONE (22:24)
[2021-04-18] MEDS: Flonase NASAL NS SCH (22:26)
[2021-04-18] MEDS ORDERED: Neurontin 400 MG PO ONE (23:01)
[2021-04-19] MEDS: solu-MEDROL 60 MG, Sterile H2O 10 ml 2 ML IV SCH ×4 (00:01→06:12)
[2021-04-19] MEDS: DUONEB 0.5-3 MG/3 ml Neb IH SCH (07:39)
[2021-04-19] MEDS: Advair Hfa 115/21 Common canister IH SCH (07:42)
--- NOTE | 2021-04-19 07:56 | PCM.DS ---
Discharge Summary Date of Admission: 04/17/21 22:11 Admitting Physician: EWN CAMERON Primary Care Provider: WEN CAMERON Allergies Allergies morphine Allergy (Severe, Verified 04/07/21 23:02) Fainting oxycodone Allergy (Verified 04/07/21 23:02) Shortness of Breath Penicillins Allergy (Verified 04/07/21 23:02) oxymorphone Adverse Reaction (Severe, Verified 04/07/21 23:02) Fainting [place] Adverse Reaction (Intermediate, Verified 04/07/21 23:02) Headache bupropion HCl [From Wellbutrin] Adverse Reaction (Mild, Verified 04/07/21 23:02) [facility] Summary - Hospital Course Hospital Course: Chief Complaint Diagnosis copd exacerbation Allergies Allergy/AdvReac Type Severity Reaction Status Date / Time morphine Allergy Severe Fainting Verified 04/07/21 23:02 oxycodone Allergy Shortness Verified 04/07/21 23:02 of Breath Penicillins Allergy Verified 04/07/21 23:02 oxymorphone AdvReac Severe Fainting Verified 04/07/21 23:02 [place] AdvReac Intermediate Headache Verified 04/07/21 23:02 bupropion HCl AdvReac Mild Hives Verified 04/07/21 23:02 [From Wellbutrin] Vital Signs (Last 24 hours) Temp Pulse Resp BP BP Pulse Ox 04/19/21 07:42 97 H 18 98 04/19/21 04:00 106 H 24 97 04/19/21 02:47 104 H 24 97 04/19/21 00:00 96.8 F 104 H 20 131/75 138/83 99 04/18/21 20:00 97.1 F 101 H 20 135/60 97 04/18/21 18:56 101 H 20 98 04/18/21 16:00 97.7 F 98 H 16 134/60 97 04/18/21 14:28 102 H 18 99 04/18/21 12:00 97.7 F 106 H 16 138/83 99 04/18/21 10:37 88 18 97 04/18/21 08:00 96.9 F 86 16 140/76 98 Current Medications Generic Name Dose Route Start Last Admin Trade Name Freq PRN Reason Stop Dose Admin Acetaminophen 650 mg 04/17/21 22:13 Acetaminophen 325 Mg Tablet PO 05/17/21 22:12 Q4H PRN PRN PAIN AND/OR FEVER Albuterol/Ipratropium 3 ml 04/17/21 19:00 04/19/21 07:39 Ipratropium/Albuterol Sulfate 3 Ml Ampul.[facility] 05/17/21 18:59 3 ml QIDRT VALERY Administration Albuterol/Ipratropium 3 ml 04/17/21 23:03 04/19/21 02:45 Ipratropium/Albuterol Sulfate 3 Ml Ampul.[facility] 05/17/21 23:02 3 ml Q4HPRN PRN Administration SHORTNESS OF BREATH/WHEEZING Calcium Carbonate/Glycine 750 mg 04/18/21 11:12 04/18/21 19:07 Calcium Carbonate 750 Mg 750 Mg Tab.Chew PO 05/18/21 11:14 750 mg Q2H PRN Administration INDIGESTION Clonazepam 2 mg 04/18/21 22:00 04/18/21 22:26 Clonazepam 2 Mg Tablet PO 05/18/21 21:59 2 mg QHS VALERY Administration Methylprednisolone Sodium 0 mg 04/18/21 00:00 04/19/21 06:12 Succinate 60 mg/ Sterile Water IV 05/18/21 00:00 Not Given 2 ml Q6HT VALERY Famotidine 20 mg 04/18/21 15:00 04/18/21 16:40 Famotidine 20 Mg Tablet PO 05/18/21 14:59 20 mg DAILY VALERY Administration Fluticasone Propionate 0 gm 04/18/21 22:00 04/18/21 22:26 Fluticasone Propionate 16 Gm Bottle Nasal [place] NS 05/18/21 21:59 1 gm BID VALERY Administration Gabapentin 1,200 mg 04/19/21 10:00 Gabapentin 400 Mg Capsule PO 05/19/21 09:59 QAM VALERY Gabapentin 2,400 mg 04/18/21 22:00 04/18/21 22:25 Gabapentin 400 Mg Capsule PO 05/18/21 21:59 2,400 mg HS VALERY Administration Levofloxacin/Dextrose 500 mg in 100 mls @ 100 mls/hr 04/18/21 10:00 04/18/21 11:13 Levofloxacin 500mg/100ml D5w IV 05/18/21 09:59 100 mls/hr Q24H10 VALERY Administration Insulin Human Lispro 0 unit 04/17/21 22:13 Insulin Lispro 1 Unit SQ 05/17/21 22:12 UD PRN HYPERGLYCEMIA Isosorbide Mononitrate 30 mg 04/18/21 15:00 04/18/21 16:40 Isosorbide Mononitrate 30 Mg Tab PO 05/18/21 14:59 30 mg DAILY VALERY Administration Ketorolac Tromethamine 10 mg 04/18/21 07:15 04/18/21 16:46 Ketorolac Tromethamine 10 Mg Tablet PO 04/22/21 22:55 10 mg Q8H PRN PRN Administration PAIN Levothyroxine Sodium 25 mcg 04/19/21 10:00 Levothyroxine Sodium 25 Mcg Tablet PO 05/19/21 09:59 DAILY [facility] Multivitamins Therapeutic 1 tab 04/18/21 15:00 04/18/21 16:39 Multivitamins,Therapeutic 1 Tab Tab PO 05/18/21 14:59 1 tab DAILY VALERY Administration Nitroglycerin 0.4 mg 04/18/21 13:53 Nitroglycerin 0.4 Mg Tablet Bottle SL 05/18/21 13:52 UD PRN CHEST PAIN Non-Formulary Medication 300 mg 04/18/21 22:00 04/18/21 22:27 Quetiapine Fumarate [Quetiapine Fumarate] PO 05/18/21 21:59 300 mg QHS VALERY Administration Ondansetron HCl 4 mg 04/17/21 22:13 Ondansetron Hcl 4 Mg/2 Ml Vial IV 05/17/21 22:12 Q6H PRN PRN NAUSEA/VOMITING Pantoprazole Sodium 40 mg 04/18/21 15:00 04/18/21 16:40 Protonix (Pantoprazole) 40 Mg Tablet PO 05/18/21 14:59 40 mg DAILY VALERY Administration Quetiapine Fumarate 200 mg 04/19/21 10:00 Quetiapine Fumarate 100 Mg Tablet PO 05/19/21 09:59 DAILY [facility] Fluticasone/Salmeterol 2 puff 04/17/21 19:00 04/19/21 07:42 Fluticasone/Salmeterol /21 - 120 Puff Common Canister IH 05/17/21 18:59 2 puff BIDRT VALERY Administration Sertraline HCl 200 mg 04/18/21 15:00 04/18/21 16:40 Sertraline Hcl 50 Mg Tab PO 05/18/21 14:59 200 mg DAILY VALERY Administration Theophylline 300 mg 04/18/21 15:00 04/18/21 16:40 Theophylline Anhydrous 400 Mg Tab.Er.24hr Tablet PO 05/18/21 14:59 300 mg DAILY VALERY Administration Tizanidine HCl 4 mg 04/18/21 15:00 04/18/21 22:25 Tizanidine Hcl 4 Mg Tablet PO 05/18/21 14:59 4 mg TID VALERY Administration Discontinued Medications Generic Name Dose Route Start Last Admin Trade Name Zurdoq PRN Reason Stop Dose Admin Albuterol/Ipratropium Confirm 04/17/21 15:57 Ipratropium/Albuterol Sulfate 3 Ml Ampul.Neb Administered 04/17/21 15:58 Dose 3 ml IH .STK-MED ONE Albuterol/Ipratropium 3 ml 04/17/21 16:01 04/17/21 16:00 Ipratropium/Albuterol Sulfate 3 Ml Ampul.Neb 04/17/21 16:02 3 ml STAT ONE Administration Albuterol/Ipratropium 3 ml 04/18/21 01:00 Ipratropium/Albuterol Sulfate 3 Ml Ampul.Neb 05/18/21 00:59 Q6HRT [facility] Albuterol/Ipratropium Confirm 04/17/21 22:10 Ipratropium/Albuterol Sulfate 3 Ml Ampul.Neb Administered 04/17/21 22:11 Dose 3 ml IH .STK-MED ONE Clonazepam 2 mg 04/17/21 23:00 04/17/21 23:12 Clonazepam 0.5 Mg Tablet PO 04/17/21 23:01 2 mg ONCE ONE Administration Clonazepam Confirm 04/17/21 23:08 Clonazepam 2 Mg Tablet Administered 04/17/21 23:09 Dose 2 mg .ROUTE .STK-MED ONE Methylprednisolone Sodium 0 mg 04/17/21 16:01 04/17/21 16:45 Succinate 125 mg/ Sterile IV 04/17/21 16:02 125 mg Water 2 ml STAT ONE Administration Gabapentin 2,400 mg 04/18/21 23:01 Gabapentin 400 Mg Capsule PO 04/18/21 23:02 ONCE ONE Gabapentin 2,400 mg 04/17/21 23:01 04/17/21 23:13 Gabapentin 400 Mg Capsule PO 04/17/21 23:02 2,400 mg ONCE ONE Administration Levofloxacin/Dextrose 750 mg in 150 mls @ 100 mls/hr 04/17/21 16:01 04/17/21 18:03 Levofloxacin 750mg/150ml D5w IV 04/17/21 17:30 Infused STAT STA Infusion Levofloxacin/Dextrose Confirm 04/17/21 16:39 Levofloxacin 750mg/150ml D5w Administered 04/17/21 16:40 Dose 750 mg in 150 mls @ ud IV .STK-MED ONE Ketorolac Tromethamine 10 mg 04/17/21 22:56 04/18/21 06:46 Ketorolac Tromethamine 10 Mg Tablet PO 04/22/21 22:59 10 mg Q8H PRN Administration PAIN Methylprednisolone Sodium Succinate Confirm 04/17/21 16:39 Methylprednis Sod Succ 125 Mg/2 Ml Vial Administered 04/17/21 16:40 Dose 125 mg .ROUTE .STK-MED ONE Methylprednisolone Sodium Succinate Confirm 04/18/21 05:12 Methylprednis Sod Succ 125 Mg/2 Ml Vial Administered 04/18/21 05:13 Dose 125 mg .ROUTE .STK-MED ONE Oxycodone/Acetaminophen 1 tab 04/17/21 19:29 04/17/21 19:37 Oxycodone Hcl/Apap 5 Mg/325 Mg Tablet PO 04/17/21 19:30 1 tab STAT STA Administration Oxycodone/Acetaminophen Confirm 04/17/21 19:37 Oxycodone Hcl/Apap 5 Mg/325 Mg Tablet Administered 04/17/21 19:38 Dose 1 tab .ROUTE .STK-MED ONE Pantoprazole Sodium 40 mg 04/18/21 10:00 04/18/21 09:26 Pantoprazole 40 Mg Vial IV 05/18/21 09:59 40 mg Q24H10 VALERY Administration Quetiapine Fumarate 300 mg 04/17/21 23:02 04/17/21 23:14 Quetiapine Fumarate 100 Mg Tablet PO 04/17/21 23:03 300 mg ONCE ONE Administration Quetiapine Fumarate Confirm 04/18/21 22:24 Quetiapine Fumarate 100 Mg Tablet Administered 04/18/21 22:25 Dose 300 mg .ROUTE .STK-MED ONE Sterile Water Confirm 04/17/21 16:39 Water For Injection,Sterile 10 Ml Vial Administered 04/17/21 16:40 Dose 10 ml IJ .STK-MED ONE Tizanidine HCl 4 mg 04/17/21 23:03 04/17/21 23:14 Tizanidine Hcl 4 Mg Tablet PO 04/17/21 23:04 4 mg ONCE ONE Administration Intake & Output (Last 24 hours) 04/16/21 04/17/21 04/18/21 04/19/21 11:59 11:59 11:59 11:59 Intake Total 1080 1060 Balance 1080 1060 Weight 82.1 kg Microbiology Results (Last 24 hours) 04/17/21 16:25 Blood Blood Culture Gram Stain - Pending 04/17/21 16:25 Blood Blood Culture - Preliminary NO GROWTH TO DATE 04/17/21 16:25 Blood Blood Culture Gram Stain - Pending 04/17/21 16:25 Blood Blood Culture - Preliminary NO GROWTH TO DATE Laboratory Results (Last 24 hours) 04/18/21 04/18/21 04/18/21 22:11 16:24 12:08 POC Glucometer 147 H 132 H 154 H 04/18/21 07:56 POC Glucometer 115 H Orders (Last 24 hours) Category Date Time Status House Regular Diet Diet 04/18/21 Breakfast Active POCT GLUCOSE Stat Lab 04/18/21 07:56 Completed POCT GLUCOSE Stat Lab 04/18/21 12:08 Completed POCT GLUCOSE Stat Lab 04/18/21 16:24 Completed POCT GLUCOSE Stat Lab 04/18/21 22:11 Completed Calcium Carbonate 750 mg [Tums EX 750 MG] Med 04/18/21 11:12 Active 750 mg PO Q2H PRN Clonazepam [Klonopin] Med 04/18/21 22:00 Active 2 mg PO QHS Famotidine 20 mg [Pepcid 20 MG] Med 04/18/21 15:00 Active 20 mg PO DAILY Fluticasone Propionate [Flonase NASAL] Med 04/18/21 22:00 Active 0 gm NS BID Gabapentin 400 mg [Neurontin 400 MG] Med 04/19/21 10:00 Active 1,200 mg PO QAM Gabapentin 400 mg [Neurontin 400 MG] Med 04/18/21 22:00 Active 2,400 mg PO HS Gabapentin 400 mg [Neurontin 400 MG] Med 04/18/21 23:01 Discontinued 2,400 mg PO ONCE ONE Isosorbide Mononitrate 30 mg [Imdur 30 MG] Med 04/18/21 15:00 Active 30 mg PO DAILY Ketorolac Trometh 10 mg Tab [TORAdol 10 MG TABLET] Med 04/18/21 07:15 Active 10 mg PO Q8H PRN PRN Levofloxacin [Levofloxacin 500MG/100ML D5W] Med 04/18/21 10:00 Active 500 mg in 100 ml IV Q24H10 Levothyroxine Sodium 25 Mcg [Synthroid 25 Mcg] Med 04/19/21 10:00 Active 25 mcg PO DAILY Multivitamins,Therapeutic Tab* [Theragran Multivitamin* Med 04/18/21 15:00 Active ] 1 tab PO DAILY Nitroglycerin 0.4 mg Tablet [Nitrostat 0.4 MG Tablet Med 04/18/21 13:53 Active ] 0.4 mg SL UD PRN PANTOPRAZOLE 40 mg Tablet [Protonix 40MG Tablet] Med 04/18/21 15:00 Active 40 mg PO DAILY Pantoprazole 40 mg [Protonix 40 mg IV] Med 04/18/21 10:00 Discontinued 40 mg IV Q24H10 Quetiapine Fumarate 100 mg [Seroquel 100 MG] Med 04/19/21 10:00 Active 200 mg PO DAILY Quetiapine Fumarate 100 mg [Seroquel 100 MG] Med 04/18/21 22:24 Discontinued 300 mg .ROUTE .STK-MED ONE Quetiapine Fumarate [Quetiapine Fumarate] Med 04/18/21 22:00 Active 300 mg PO QHS Sertraline HCl 50 mg [Zoloft 50 mg Tablet] Med 04/18/21 15:00 Active 200 mg PO DAILY Theophylline Anhydrous [Theophylline ER 24Hr] Med 04/18/21 15:00 Active 300 mg PO DAILY Tizanidine HCl 4 mg [Zanaflex 4 MG] Med 04/18/21 15:00 Active 4 mg PO TID Patient Care Notes (Last 24 hours) 04/18/21 13:52 Case Management Note by Anabela Brown PATIENT [facility]. THEY WERE NOTIFIED SHE IS HERE. THEY WILL NEED NOTIFIED AT TIME OF DC AT [phone]. THEY WILL NEED FAXED THE DC INSTRUCTIONS, DC MED LIST, AND DC SUMMARY (IF AVAILABLE) TO [phone] Initialized on 04/18/21 13:52 - END OF NOTE - Vitals & Intake/Output Vital Signs: Vital Signs Temperature 96.8 F 04/19/21 00:00 Pulse Rate 97 H 04/19/21 07:42 Respiratory Rate 18 04/19/21 07:42 Blood Pressure 138/83 04/19/21 00:00 O2 Sat by Pulse Oximetry 98 04/19/21 07:42 Intake & Output: Intake & Output 04/16/21 04/17/21 04/18/21 04/19/21 11:59 11:59 11:59 11:59 Intake Total 1080 1060 Balance 1080 1060 Weight 82.1 kg - Lab Result Diagrams: 04/18/21 02:15 04/18/21 02:15 Lab Results-Last 24 Hrs: Lab Results-Last 24 Hours 04/18/21 04/18/21 04/18/21 Range/Units 07:56 12:08 16:24 POC Glucometer 115 H 154 H 132 H (74 to 106) mg/dL 04/18/21 Range/Units 22:11 POC Glucometer 147 H (74 to 106) mg/dL Micro Results-Entire Visit: Microbiology 04/17/21 16:25 Blood Culture - Preliminary Blood NO GROWTH TO DATE 04/17/21 16:25 Blood Culture - Preliminary Blood NO GROWTH TO DATE Accuchecks Date 04/18/21 Date 04/18/21 Date 04/18/21 Time 16:25 Time 16:25 Time 12:09 - Radiology Exams Ordered Rad Exams-Entire Visit: Radiology Procedures Category Date Time Status CHEST 1 VIEW (PORTABLE) Stat Exams 04/17/21 16:01 Completed - Procedures and Test Procedures and Tests throughout Hospitalization: Therapy Orders & Screens 04/17/21 16:26 Respiratory Therapy Assessment DAILY Comment: 04/17/21 22:13 Oxygen Nasal Cannula 3 lpm Comment: 04/17/21 23:02 Respiratory Therapy Assessment DAILY Comment: Diagnosis: copd exacerbation Discharge Exam General Appearance: no apparent distress, alert Neurologic Exam: alert, oriented x 3, cooperative, normal mood/affect, nml cerebellar function, sensation nml, No motor deficits Eye Exam: PERRL, EOMI, eyes nml inspection Ears, Nose, Throat Exam: normal ENT inspection, pharynx normal, moist mucous membranes Neck Exam: normal inspection, non-tender, supple, full range of motion Respiratory Exam: diminished breath sounds, No respiratory distress Cardiovascular Exam: regular rate/rhythm, normal heart sounds Gastrointestinal/Abdomen Exam: soft, No tenderness, No mass Pelvic Exam: deferred Rectal Exam: deferred Back Exam: normal inspection, normal range of motion, No CVA tenderness, No vertebral tenderness Extremity Exam: normal inspection, normal range of motion Skin Exam: normal color, warm, dry Final Diagnosis/Problem List - Final Discharge Diagnosis/Problem (1) COPD exacerbation Current Visit: Yes Status: Resolved Code(s): J44.1 - CHRONIC OBSTRUCTIVE PULMONARY DISEASE W (ACUTE) EXACERBATION (2) Leukocytosis Current Visit: Yes Status: Acute Code(s): D72.829 - ELEVATED WHITE BLOOD CELL COUNT, UNSPECIFIED - Discharge Discharge Date: 04/19/21 Disposition: Home, Self-Care Condition: Stable Prescriptions: New Levofloxacin [Levofloxacin 500MG/100ML D5W] 500 mg PO Q24H10 #5 Continue Clonazepam 0.5 mg [Klonopin 0.5 MG] 2 mg PO QHS Fluticasone/Salmeterol Disc [Advair/[place] 250-50 Diskus 14 Dose] 1 puff IH BID Famotidine 20 mg [Pepcid 20 MG] 20 mg PO DAILY Albuterol/Ipratropium Mdi [Combivent Inhaler] 1 puff IH QID Sertraline HCl 100 mg [Zoloft 100 MG] 200 mg PO DAILY Isosorbide Mononitrate 30 mg [Imdur 30 MG] 30 mg PO DAILY Tizanidine HCl 4 mg [Zanaflex 4 MG] 4 mg PO TID Quetiapine Fumarate [Seroquel] 200 mg PO DAILY Vits W-Ca,Fe,FA(<1Mg) [] 1 each PO DAILY Nitroglycerin 0.4 mg Tablet [Nitrostat 0.4 MG Tablet] 0.4 mg SL UD PRN PRN Reason: Chest Pain Albuterol Common Canister [Ventolin Common Canister] 2 puff IH QID PRN PRN PRN Reason: Shortness Of Breath Quetiapine Fumarate 300 mg PO QHS Gabapentin 1,200 mg PO QAM Gabapentin [Neurontin] 2,400 mg PO HS Theophylline Anhydrous 300 mg PO DAILY Prednisone 20 mg [Deltasone 20 mg] 20 mg PO BID Fluticasone Propionate [Flonase NASAL] 1 spray NS BID Albuterol/Ipratropium 3ml Neb* [DUONEB 0.5-3 MG/3 ml Neb] 3 ml IH QIDRT PANTOPRAZOLE 40 mg Tablet [Protonix 40MG Tablet] 40 mg PO DAILY tab Levothyroxine Sodium 25 Mcg [Synthroid 25 Mcg] 25 mcg PO DAILY tablet Discontinued cephALEXin [Cephalexin] 500 mg PO QID 7 Days #28 tablet Follow up with: WEN CAMERON MD [Primary Care Provider] - 7 Days
[2021-04-19 08:27] VITALS: BP 143/66; PULSE 94; O2SAT 99
[2021-04-19] MEDS: Flonase NASAL NS SCH (09:17)
[2021-04-19] MEDS: Imdur 30 MG PO SCH (09:21)
[2021-04-19] MEDS: Pepcid 20 MG PO SCH (09:23)
[2021-04-19] MEDS: Protonix 40MG Tablet PO SCH (09:23)
[2021-04-19] MEDS: THEOPHYLLINE ER 24HR PO SCH (09:24)
[2021-04-19] MEDS: THERAGRAN MULTIVITAMIN PO SCH (09:25)
[2021-04-19] MEDS: ZOLOFT 50 MG TABLET PO SCH (09:25)
[2021-04-19] MEDS: Zanaflex 4 MG PO SCH (09:25)
[2021-04-19] MEDS ORDERED: THEOPHYLLINE ANHYDROUS 300 MG PO SCH (10:00)
[2021-04-19] MEDS ORDERED: Seroquel 100 MG PO SCH ×2 (10:00→22:00)
[2021-04-19] MEDS ORDERED: NON-FORMULARY ITEM (Prenatal Vits W-Ca,Fe,Fa(<1mg) [Prenatal] 1 EACH Tablet) PO SCH (10:00)
[2021-04-19] MEDS ORDERED: NON-FORMULARY ITEM (Sertraline Hcl 100 Mg [Zoloft 100 Mg] 100 MG Tab) PO SCH (10:00)
[2021-04-19] MEDS ORDERED: Neurontin 400 MG PO SCH (10:00)
[2021-04-19] MEDS ORDERED: NEURONTIN 300 MG PO SCH (10:00)
[2021-04-19] MEDS ORDERED: SYNTHROID 25 MCG PO SCH (10:00)
== END 2021-04-19 11:15 | disposition home health service (06) ==
LOC: ED 15:28 → MED SURG 22:11
PROVIDERS: ADMIT General Practice; ATTEND General Practice
DX: J44.1 Chronic obstructive pulmonary disease with (acute) exacerbation (principal); D72.829 Elevated white blood cell count, unspecified; I50.9 Heart failure, unspecified; I25.10 Atherosclerotic heart disease of native coronary artery without angina pectoris; E78.00 Pure hypercholesterolemia, unspecified; Z20.828 Contact with and (suspected) exposure to other viral communicable diseases; Z99.81 Dependence on supplemental oxygen; Z79.899 Other long term (current) drug therapy
CPT/HCPCS: 0241U; 36000; 36415; 71045; 80053; 82947; 83605; 83735; 83880; 84484; 85025; 87040; 93005; 93041; 93268; 94640; 94760; 96365; 96374; 99285; G0378; J1956; J2930; A9270-GY

== ENCOUNTER 2021-05-19 13:11 | Observation (INO) | payer MEDICARE ==
--- NOTE | 2021-05-19 14:32 | XRAY ---
Indication: Short of breath. Comparison: Apr 17, 2021. Portable chest unchanged and remains clear. Heart not enlarged again with incidental hiatal hernia. No new/acute findings.
[2021-05-19] MEDS ORDERED: Zofran 4 MG/2 ML VIAL IV ONE (15:02)
[2021-05-19] MEDS ORDERED: TORAdol 30 mg Injection IV ONE (15:02)
[2021-05-19 15:04] LABS: INR 0.96 (0.8-3.0); PROTIME 11.3 SECONDS (9.4-12.5)
[2021-05-19] MEDS ORDERED: TORAdol 30 mg Injection ONE (15:04)
[2021-05-19] MEDS ORDERED: Zofran 4 MG/2 ML VIAL ONE (15:04)
[2021-05-19 15:07] LABS: PTT 27.9 SECONDS (25.1-36.5)
[2021-05-19 15:10] LABS: ALBUMIN 3.4 g/dL (3.5-5.0); ALKALINE PHOSPHATASE 52 U/L (38-126); ANION GAP 8.3 MEQ/L (5-15); BLOOD UREA NITROGEN 5 mg/dL (7-17); CHLORIDE 101 mmol/L (98-107); Calcium 8.9 mg/dL (8.4-10.2); Carbon Dioxide 34 mmol/L (22-30); Creatinine 1 0.61 mg/dL (0.52-1.04); EST GLOMERULAR FILTRATION RATE > 60.0 ML/MIN; Glucose 142 mg/dL (74-106); Potassium 3.8 mmol/L (3.5-5.1); SGOT/AST 30 U/L (14-36); SGPT/ALT 15 U/L (0-35); SODIUM 140 mmol/L (137-145)
[2021-05-19 15:15] LABS: INFLUENZA A NEGATIVE (NEGATIVE); INFLUENZA B NEGATIVE (NEGATIVE); RESPIRATORY SYNCTIAL VIRUS NEGATIVE (Negative); SARS-CoV-2 Xpert Express NEGATIVE (NEGATIVE)
[2021-05-19 15:21] LABS: Absolute Neutrophil Ct (ANC) 7.59 (1.4-6.9); Basophil (Absolute #) 0.05 (0-0.4); Eosinophil % 0.9 % (0.00-5.0); Eosinophil (Absolute #) 0.08 (0-0.5); Hematocrit 25.1 % (35-47); Lymphocyte (Absolute #) 0.76 (1.0-4.6); Lymphocytes % 8.6 % (24.0-44.0); Mean Cell Volume 87.2 fl (78-100); Mean Corpuscular Hemoglobin 23.6 pg (26-32); Mean Corpuscular Hgb Concent. 27.1 g/dl (32-36); Mean Platelet Volume 10.7 fl (7.5-11.0); Monocyte (Absolute #) 0.37 (0.0-1.3); Monocytes % 4.2 % (0.0-12.0); Neutrophil % 85.7 % (36.0-66.0); Platelet Count 500 K/mm3 (150-450); Red Blood Count 2.88 M/mm3 (4.1-5.4); Red Cell Distribution Width 17.9 % (11.5-14.0); White Blood Count 8.9 K/mm3 (4.0-10.5)
[2021-05-19 15:28] LABS: Appearance CLEAR (CLEAR); Bilirubin NEGATIVE (NEGATIVE); Glucose NEGATIVE (NEGATIVE); Ketones NEGATIVE (NEGATIVE)
[2021-05-19 15:29] LABS: Nitrite NEGATIVE (NEGATIVE); Protein,Urine Dip NEGATIVE (Negative); RBC NEGATIVE Ery/ul (0-5); Specific Gravity 1.025 (1.005-1.025); Urobilinogen 0.2 mg/dL (0-1)
[2021-05-19 15:34] LABS: Dipstick done @ ? MAIN LAB
[2021-05-19 15:57] LABS: Hemoglobin 6.8 gm/dl (12.0-16.0)
[2021-05-19 16:07] LABS: ABO TYPING A; Antibody Screen NEGATIVE (NEGATIVE); RH TYPING POSITIVE
[2021-05-19 16:13] LABS: CROSS MATCH (PRBC) COMPATIBLE (COMPATIBLE)
--- NOTE | 2021-05-19 16:16 | ERPHSYRPT ---
- History of Present Illness Time Seen by Provider: 05/19/21 13:50 Source: patient Exam Limitations: no limitations Patient Subjective Stated Complaint: Abnormal labs-HBG 7.7 Triage Nursing Assessment: Patient brought back to ED via w/c and transferred self to bed. Patient A+O X3. Patient's skin pale, warm and dry. Patient states she had her blood drawn on 05/15/2021 and was told to come to ED today due to low hemaglobin of 7.7. Patient states she has increased weakness and SOB the past few days. Lungs diminished thoughout. Patient denies pain or discomfort. Physician History: Patient is a 65-year-old white female with longstanding recurrent anemia last her hemoglobin was 7.7 she was sent into the ER this evening because she had increasing shortness of breath which is always associated with a low hemoglobin in this patient. Severity: moderate Associated Symptoms: shortness of breath Allergies/Adverse Reactions: morphine Allergy (Severe, Verified 05/19/21 13:41) Fainting oxycodone Allergy (Verified 05/19/21 13:41) Shortness of Breath Penicillins Allergy (Verified 05/19/21 13:41) oxymorphone Adverse Reaction (Severe, Verified 05/19/21 13:41) Fainting Coconut Adverse Reaction (Intermediate, Verified 05/19/21 13:41) Headache bupropion HCl [From Wellbutrin] Adverse Reaction (Mild, Verified 05/19/21 13:41) Hives Home Medications: Albuterol/Ipratropium Mdi [Combivent Inhaler] 1 puff IH QID 12/29/12 [History] Clonazepam 0.5 mg [Klonopin 0.5 MG] 2 mg PO QHS 12/29/12 [History] Famotidine 20 mg [Pepcid 20 MG] 20 mg PO DAILY 12/29/12 [History] Fluticasone/Salmeterol Disc [Advair/[place]ella 250-50 Diskus 14 Dose] 1 puff IH BID 12/29/12 [History] Sertraline HCl 100 mg [Zoloft 100 MG] 200 mg PO DAILY 12/17/13 [History] Isosorbide Mononitrate 30 mg [Imdur 30 MG] 30 mg PO DAILY 11/05/14 [History] Tizanidine HCl 4 mg [Zanaflex 4 MG] 4 mg PO TID 01/16/15 [History] Quetiapine Fumarate [Seroquel] 200 mg PO DAILY 10/17/15 [History] Vits W-Ca,Fe,FA(<1Mg) [] 1 each PO DAILY 10/18/15 [History] Nitroglycerin 0.4 mg Tablet [Nitrostat 0.4 MG Tablet] 0.4 mg SL UD PRN 11/15/15 [History] Albuterol Common Canister [Ventolin Common Canister] 2 puff IH QID PRN PRN 07/08/19 [History] Quetiapine Fumarate 300 mg PO QHS 07/08/19 [History] Gabapentin 1,200 mg PO QAM 04/08/20 [History] Gabapentin [Neurontin] 2,400 mg PO HS 04/08/20 [History] Theophylline Anhydrous 300 mg PO DAILY 12/23/20 [History] Fluticasone Propionate [Flonase NASAL] 1 spray NS BID 03/15/21 [History] Prednisone 20 mg [Deltasone 20 mg] 20 mg PO BID 03/15/21 [History] Hx Tetanus, Diphtheria Vaccination/Date Given: Yes Hx Influenza Vaccination/Date Given: Yes Hx Pneumococcal Vaccination/Date Given: Yes Immunizations Up to Date: Yes Travel Risk - International Travel Have you traveled outside of the country in past 3 weeks: No - Coronavirus Screening Are you exhibiting any of the following symptoms?: No Close contact with a COVID-19 positive Pt in past 14-21 Days: No - Vaccine Status Have you recieved a Covid-19 vaccination: No - Vaccination Dates Comment: . - Review of Systems Constitutional: No Fever, No Chills Eyes: No Symptoms Ears, Nose, & Throat: No Symptoms Respiratory: No Cough, No Dyspnea Cardiac: No Chest Pain, No Edema, No Syncope Abdominal/Gastrointestinal: No Abdominal Pain, No Nausea, No Vomiting, No Diarrhea Genitourinary Symptoms: No Dysuria Musculoskeletal: No Back Pain, No Neck Pain Skin: No Rash Neurological: No Dizziness, No Focal Weakness, No Sensory Changes Psychological: No Symptoms Endocrine: No Symptoms All Other Systems: Reviewed and Negative - Past Medical History Pertinent Past Medical History: Yes Neurological History: Migraines ENT History: No Pertinent History Cardiac History: Congestive Heart Failure, Coronary Artery Disease, High Cholesterol Respiratory History: Asthma, Bronchitis, COPD, Pneumonia Endocrine Medical History: Hypothyroidism Musculoskeletal History: Arthritis, Osteoporosis GI Medical History: GERD, Hernia, Polyps History: No Pertinent History Psycho-Social History: Anxiety, Bipolar, Depression Female Reproductive Disorders: Fibroids Other Medical History: 2 LEAKY VALVES. BORDERLINE PERSONALITY DISORDER, PTSD, manic depressive - Past Surgical History Past Surgical History: Yes Neuro Surgical History: No Pertinent History Cardiac: Cardiac Catheterization Respiratory: No Pertinent History Gastrointestinal: Other Genitourinary: No Pertinent History Musculoskeletal: Other Female Surgical History: Section Other Surgical History: ARM SURGERY-- left wrist laceration from a glass door, 2 c-sections, EGD with dilitation, colonoscopy, heart cath x 2 - Social History Smoking Status: Current some day smoker How long have you smoked: 40 Exposure to second hand smoke: Yes Alcohol Use: Socially Drug Use: none Patient Lives Alone: No Significant Family History: no pertinent family hx - Nursing Vital Signs Nursing Vital Signs: Initial Vital Signs Pulse Rate 109 H 05/19/21 13:41 Respiratory Rate 18 05/19/21 13:41 Blood Pressure 131/77 05/19/21 13:41 O2 Sat by Pulse Oximetry 100 05/19/21 13:41 Pain Scale Pain Intensity 0 - Physical Exam General Appearance: no apparent distress, alert Eye Exam: PERRL/EOMI, eyes nml inspection Ears, Nose, Throat Exam: normal ENT inspection, TMs normal, pharynx normal, moist mucous membranes Neck Exam: normal inspection, non-tender, supple, full range of motion Respiratory Exam: normal breath sounds, lungs clear, No respiratory distress Cardiovascular Exam: regular rate/rhythm, normal heart sounds, normal peripheral pulses Gastrointestinal/Abdomen Exam: soft, normal bowel sounds, No tenderness, No mass Back Exam: normal inspection, normal range of motion, No CVA tenderness, No vertebral tenderness Extremity Exam: normal inspection, normal range of motion, pelvis stable Neurologic Exam: alert, oriented x 3, cooperative, normal mood/affect, nml cerebellar function, nml station & gait, sensation nml, No motor deficits Skin Exam: normal color, warm, dry, No rash Lymphatic Exam: No adenopathy SpO2: 99 - Course Nursing assessment & vital signs reviewed: Yes Ordered Tests: Active Orders 24 hr Category Date Time Status Booky STAT Care 05/19/21 13:55 Active EKG-ER Only STAT Care 05/19/21 13:55 Active IV Insertion STAT Care 05/19/21 13:54 Active Oxygen-ED Only Nasal Cannula 4 lpm Care 05/19/21 13:54 Active CHEST 1 VIEW (PORTABLE) Stat Exams 05/19/21 13:55 Completed CBC W DIFF Stat Lab 05/19/21 13:50 Completed CMP Stat Lab 05/19/21 13:50 Completed Lactic Acid Stat Lab 05/19/21 13:54 Completed Lactic Acid Stat Lab 05/19/21 16:07 Received PROTIME WITH INR Stat Lab 05/19/21 13:50 Completed PTT Stat Lab 05/19/21 13:50 Completed Medication Summary Discontinued Medications Generic Name Dose Route Start Last Admin Trade Name Freq PRN Reason Stop Dose Admin Ketorolac Tromethamine 30 mg 05/19/21 15:02 05/19/21 15:07 Ketorolac Tromethamine 30 Mg/Ml Inj IV 05/19/21 15:03 30 mg STAT ONE Administration Ketorolac Tromethamine Confirm 05/19/21 15:04 Ketorolac Tromethamine 30 Mg/Ml Inj Administered 05/19/21 15:05 Dose 30 mg .ROUTE .STK-MED ONE Ondansetron HCl 4 mg 05/19/21 15:02 05/19/21 15:07 Ondansetron Hcl 4 Mg/2 Ml Vial IV 05/19/21 15:03 4 mg STAT ONE Administration Ondansetron HCl Confirm 05/19/21 15:04 Ondansetron Hcl 4 Mg/2 Ml Vial Administered 05/19/21 15:05 Dose 4 mg .ROUTE .STK-MED ONE Lab/Rad Data: Laboratory Result Diagrams 05/19/21 13:50 05/19/21 13:50 Laboratory Results 05/19/21 05/19/21 05/19/21 Range/Units 14:24 13:56 13:54 WBC (4.0-10.5) K/mm3 RBC (4.1-5.4) M/mm3 Hgb (12.0-16.0) gm/dl Hct (35-47) % MCV (78-100) fl MCH (26-32) pg MCHC (32-36) g/dl RDW (11.5-14.0) % Plt Count (150-450) K/mm3 MPV (7.5-11.0) fl Gran % (36.0-66.0) % Eos # (Auto) (0-0.5) Absolute Lymphs (auto) (1.0-4.6) Absolute Monos (auto) (0.0-1.3) Lymphocytes % (24.0-44.0) % Monocytes % (0.0-12.0) % Eosinophils % (0.00-5.0) % Basophils % (0.0-0.4) % Absolute Granulocytes (1.4-6.9) Basophils # (0-0.4) PT (9.4-12.5) SECONDS INR (0.8-3.0) APTT (25.1-36.5) SECONDS Sodium (137-145) mmol/L Potassium (3.5-5.1) mmol/L Chloride (98-107) mmol/L Carbon Dioxide (22-30) mmol/L Anion Gap (5-15) MEQ/L BUN (7-17) mg/dL Creatinine (0.52-1.04) mg/dL Estimated GFR ML/MIN Glucose (74-106) mg/dL Lactic Acid 1.9 (0.4-2.0) Calcium (8.4-10.2) mg/dL Total Bilirubin (0.2-1.3) mg/dL AST (14-36) U/L ALT (0-35) U/L Alkaline Phosphatase (38-126) U/L Serum Total Protein (6.3-8.2) g/dL Albumin (3.5-5.0) g/dL Urinalys Dipstick Clnc MAIN LAB Urine Color YELLOW (YELLOW) Urine Appearance CLEAR (CLEAR) Urine pH 7.0 (5-6) Ur Specific [place] 1.025 (1.005-1.025) POC Urine Protein Conf NEGATIVE (Negative) Urine Ketones NEGATIVE (NEGATIVE) Urine Nitrite NEGATIVE (NEGATIVE) Urine Bilirubin NEGATIVE (NEGATIVE) Urine Urobilinogen 0.2 (0-1) mg/dL Urine Leukocytes NEGATIVE (NEGATIVE) Urine WBC (Auto) NONE (0-5) /HPF Urine RBC (Auto) NONE (0-2) /HPF U Epithel Cells (Auto) NONE (FEW) /HPF Urine Bacteria (Auto) NONE (NEGATIVE) /HPF Urine RBC NEGATIVE (0-5) [place]/ul Urine Glucose NEGATIVE (NEGATIVE) mg/dL Influenza Type A Ag NEGATIVE (NEGATIVE) Influenza Type B Ag NEGATIVE (NEGATIVE) RSV (PCR) NEGATIVE (Negative) SARS-CoV-2 (PCR) NEGATIVE (NEGATIVE) 05/19/21 05/19/21 05/19/21 Range/Units 13:50 13:50 13:50 WBC 8.9 (4.0-10.5) K/mm3 RBC 2.88 L (4.1-5.4) M/mm3 Hgb 6.8 L* (12.0-16.0) gm/dl Hct 25.1 L (35-47) % MCV 87.2 (78-100) fl MCH 23.6 L (26-32) pg MCHC 27.1 L (32-36) g/dl RDW 17.9 H (11.5-14.0) % Plt Count 500 H (150-450) K/mm3 MPV 10.7 (7.5-11.0) fl Gran % 85.7 H (36.0-66.0) % Eos # (Auto) 0.08 (0-0.5) Absolute Lymphs (auto) 0.76 L (1.0-4.6) Absolute Monos (auto) 0.37 (0.0-1.3) Lymphocytes % 8.6 L (24.0-44.0) % Monocytes % 4.2 (0.0-12.0) % Eosinophils % 0.9 (0.00-5.0) % Basophils % 0.6 (0.0-0.4) % Absolute Granulocytes 7.59 H (1.4-6.9) Basophils # 0.05 (0-0.4) PT 11.3 (9.4-12.5) SECONDS INR 0.96 (0.8-3.0) APTT 27.9 (25.1-36.5) SECONDS Sodium 140 (137-145) mmol/L Potassium 3.8 (3.5-5.1) mmol/L Chloride 101 (98-107) mmol/L Carbon Dioxide 34 H (22-30) mmol/L Anion Gap 8.3 (5-15) MEQ/L BUN 5 L (7-17) mg/dL Creatinine 0.61 (0.52-1.04) mg/dL Estimated GFR > 60.0 ML/MIN Glucose 142 H (74-106) mg/dL Lactic Acid (0.4-2.0) Calcium 8.9 (8.4-10.2) mg/dL Total Bilirubin 0.40 (0.2-1.3) mg/dL AST 30 (14-36) U/L ALT 15 (0-35) U/L Alkaline Phosphatase 52 (38-126) U/L Serum Total Protein 6.0 L (6.3-8.2) g/dL Albumin 3.4 L (3.5-5.0) g/dL Urinalys Dipstick Clnc Urine Color (YELLOW) Urine Appearance (CLEAR) Urine pH (5-6) Ur Specific [place] (1.005-1.025) POC Urine Protein Conf (Negative) Urine Ketones (NEGATIVE) Urine Nitrite (NEGATIVE) Urine Bilirubin (NEGATIVE) Urine Urobilinogen (0-1) mg/dL Urine Leukocytes (NEGATIVE) Urine WBC (Auto) (0-5) /HPF Urine RBC (Auto) (0-2) /HPF U Epithel Cells (Auto) (FEW) /HPF Urine Bacteria (Auto) (NEGATIVE) /HPF Urine RBC (0-5) [place]/ul Urine Glucose (NEGATIVE) mg/dL Influenza Type A Ag (NEGATIVE) Influenza Type B Ag (NEGATIVE) RSV (PCR) (Negative) SARS-CoV-2 (PCR) (NEGATIVE) - Progress Progress: unchanged Discussed with : Bandar - Departure Departure Disposition: Observation Clinical Impression: Anemia Condition: Fair Critical Care Time: No Referrals: WEN CAMERON MD [Primary Care Provider] - Follow up/PCP as directed
[2021-05-19] MEDS ORDERED: Lasix 40 MG/4 ML IV PRN ×2 (16:20→16:35)
[2021-05-19] MEDS ORDERED: Nitrostat 0.4 MG Tablet SL PRN (17:17)
[2021-05-19] MEDS ORDERED: VENTOLIN COMMON CANISTER IH PRN (17:17)
[2021-05-19 17:22] LABS: Slide Review 1 YES
[2021-05-19] MEDS ORDERED: Sodium Chloride 0.9% 1000 ML 1,000 ML ONE (17:24)
[2021-05-19] MEDS ORDERED: Sodium Chloride 0.9% 1000 ML 1,000 ML IV SCH (17:30)
[2021-05-19] MEDS: Tums EX 750 MG PO PRN (18:33)
[2021-05-19] MEDS: DUONEB 0.5-3 MG/3 ml Neb IH SCH (18:36)
[2021-05-19] MEDS ORDERED: Advair Hfa 115/21 Common canister IH SCH (19:00)
[2021-05-19] MEDS ORDERED: ALBUTEROL IH SCH (22:00)
[2021-05-19] MEDS ORDERED: FLUTICASONE-SALMETEROL 250-50 IH SCH (22:00)
[2021-05-19] MEDS ORDERED: clonazePAM PO SCH (22:00)
[2021-05-19] MEDS ORDERED: NON-FORMULARY ITEM (Quetiapine Fumarate [Quetiapine Fumarate] 300 MG Tablet) PO SCH (22:00)
[2021-05-19] MEDS ORDERED: Seroquel 100 MG PO SCH (22:00)
[2021-05-19] MEDS ORDERED: Neurontin 400 MG PO SCH (22:00)
[2021-05-19] MEDS ORDERED: [UNRECOGNIZED DRUG - OTHER] IH SCH (22:00)
[2021-05-19] MEDS ORDERED: NON-FORMULARY ITEM (Gabapentin [Neurontin] 800 MG Tablet) PO SCH (22:00)
[2021-05-19] MEDS ORDERED: Seroquel 100 MG ONE (23:15)
[2021-05-19] MEDS ORDERED: KLONOPIN ONE (23:15)
[2021-05-19] MEDS ORDERED: Zanaflex 4 MG ONE (23:15)
[2021-05-19] MEDS ORDERED: Neurontin 400 MG ONE (23:16)
[2021-05-19] MEDS ORDERED: Flonase NASAL NS ONE (23:16)
[2021-05-19] MEDS ORDERED: DELTASONE 20 MG ONE (23:16)
[2021-05-19] MEDS: Zanaflex 4 MG PO SCH (23:20)
[2021-05-19] MEDS: DELTASONE 20 MG PO SCH (23:20)
[2021-05-19] MEDS: Flonase NASAL NS SCH (23:20)
[2021-05-19] MEDS: KLONOPIN PO SCH (23:20)
[2021-05-19] MEDS ORDERED: PROVENTIL 2.5 MG/3 ML NEB IH PRN (23:35)
[2021-05-19] MEDS ORDERED: PROVENTIL 2.5 MG/3 ML NEB IH ONE (23:40)
[2021-05-20 01:01] LABS: Hematocrit 29.8 % (35-47)
[2021-05-20 01:16] LABS: Hemoglobin 8.5 gm/dl (12.0-16.0)
[2021-05-20] MEDS: Tums EX 750 MG PO PRN (02:34)
[2021-05-20 06:52] VITALS: BP 143/83
[2021-05-20] MEDS: DUONEB 0.5-3 MG/3 ml Neb IH SCH ×2 (07:27→10:36)
[2021-05-20 07:32] VITALS: O2SAT 97
[2021-05-20] MEDS: DELTASONE 20 MG PO SCH (09:32)
[2021-05-20] MEDS: Flonase NASAL NS SCH (09:32)
[2021-05-20] MEDS: Zanaflex 4 MG PO SCH (09:32)
[2021-05-20] MEDS: KLONOPIN PO SCH (09:32)
[2021-05-20] MEDS ORDERED: SYNTHROID 25 MCG PO SCH (10:00)
[2021-05-20] MEDS ORDERED: NON-FORMULARY ITEM (Sertraline Hcl 100 Mg [Zoloft 100 Mg] 100 MG Tab) PO SCH (10:00)
[2021-05-20] MEDS ORDERED: THERAGRAN MULTIVITAMIN PO SCH (10:00)
[2021-05-20] MEDS ORDERED: NEURONTIN 300 MG PO SCH (10:00)
[2021-05-20] MEDS ORDERED: THEOPHYLLINE ER 24HR PO SCH (10:00)
[2021-05-20] MEDS ORDERED: Protonix 40MG Tablet PO SCH (10:00)
[2021-05-20] MEDS ORDERED: THEOPHYLLINE ANHYDROUS 300 MG PO SCH (10:00)
[2021-05-20] MEDS ORDERED: ZOLOFT 50 MG TABLET PO SCH (10:00)
[2021-05-20] MEDS ORDERED: Neurontin 400 MG PO SCH (10:00)
[2021-05-20] MEDS ORDERED: Seroquel 100 MG PO SCH (10:00)
[2021-05-20] MEDS ORDERED: NON-FORMULARY ITEM (Prenatal Vits W-Ca,Fe,Fa(<1mg) [Prenatal] 1 EACH Tablet) PO SCH (10:00)
[2021-05-20] MEDS ORDERED: Imdur 30 MG PO SCH (10:00)
[2021-05-20] MEDS ORDERED: Pepcid 20 MG PO SCH (10:00)
[2021-05-20 10:42] VITALS: PULSE 84
--- NOTE | 2021-05-20 11:11 | PCM.SSS ---
History of Present Illness - Chief Complaint Chief Complaint: anemia History of Present Illness: is a 65 year old female longstanding recurrent anemia last her hemoglobin was 7.7 she was sent into the ER this evening because she had increasing shortness of breath which is always associated with a low hemoglobin in this patient. Severity: moderate Associated Symptoms: shortness of breath - Review of Systems Constitutional: No Fever, No Chills Eyes: No Symptoms Ears, Nose, & Throat: No Symptoms Respiratory: No Cough, No Short Of Breath Cardiac: No Chest Pain, No Edema, No Syncope Abdominal/Gastrointestinal: No Abdominal Pain, No Nausea, No Vomiting, No Di arrhea Genitourinary Symptoms: No Dysuria Musculoskeletal: No Back Pain, No Neck Pain Skin: No Rash Neurological: No Dizziness, No Focal Weakness, No Sensory Changes Psychological: No Symptoms Endocrine: No Symptoms Hematologic/Lymphatic: No Symptoms Immunological/Allergic: No Symptoms Medications & Allergies Home Medications: Home Medication List Albuterol/Ipratropium Mdi [Combivent Inhaler] 1 puff IH QID 12/29/12 [History Confirmed 05/19/21] Clonazepam 0.5 mg [Klonopin 0.5 MG] 2 mg PO BID 12/29/12 [History Confirmed 05/19/21] Famotidine 20 mg [Pepcid 20 MG] 20 mg PO DAILY 12/29/12 [History Confirmed 05/19/21] Fluticasone/Salmeterol Disc [Advair/[place] 250-50 Diskus 14 Dose] 1 puff IH BID 12/29/12 [History Confirmed 05/19/21] Sertraline HCl 100 mg [Zoloft 100 MG] 200 mg PO DAILY 12/17/13 [History Confirmed 05/19/21] Isosorbide Mononitrate 30 mg [Imdur 30 MG] 30 mg PO DAILY 11/05/14 [History Confirmed 05/19/21] Tizanidine HCl 4 mg [Zanaflex 4 MG] 4 mg PO TID 01/16/15 [History Confirmed 05/19/21] Quetiapine Fumarate [Seroquel] 200 mg PO DAILY 10/17/15 [History Confirmed 05/19/21] Vits W-Ca,Fe,FA(<1Mg) [] 1 each PO DAILY 10/18/15 [History Confirmed 05/19/21] Nitroglycerin 0.4 mg Tablet [Nitrostat 0.4 MG Tablet] 0.4 mg SL UD PRN 11/15/15 [History Confirmed 05/19/21] Albuterol Common Canister [Ventolin Common Canister] 2 puff IH QID PRN PRN 07/08/19 [History Confirmed 05/19/21] Quetiapine Fumarate 300 mg PO QHS 07/08/19 [History Confirmed 05/19/21] Gabapentin 1,200 mg PO QAM 04/08/20 [History Confirmed 05/19/21] Gabapentin [Neurontin] 2,400 mg PO HS 04/08/20 [History Confirmed 05/19/21] Theophylline Anhydrous 300 mg PO DAILY 12/23/20 [History Confirmed 05/19/21] Fluticasone Propionate [Flonase NASAL] 1 spray NS BID 03/15/21 [History Confirmed 05/19/21] Prednisone 20 mg [Deltasone 20 mg] 20 mg PO BID 03/15/21 [History Confirmed 05/19/21] Albuterol/Ipratropium 3ml Neb* [DUONEB 0.5-3 MG/3 ml Neb] 3 ml IH QIDRT 03/17/21 [Rx Confirmed 05/19/21] Levothyroxine Sodium 25 Mcg [Synthroid 25 Mcg] 25 mcg PO DAILY tablet 03/17/21 [Rx Confirmed 05/19/21] PANTOPRAZOLE 40 mg Tablet [Protonix 40MG Tablet] 40 mg PO DAILY tab 03/17/21 [Rx Confirmed 05/19/21] Ferrous Sulfate 220 mg/5 ml [Ferrous Sulfate (IRON) 220 MG/5 ML] 5 ml PO BID 30 Days #300 ml 05/20/21 [Rx] Allergies/Adverse Reactions: Allergies Allergy/AdvReac Type Severity Reaction Status Date / Time morphine Allergy Severe Fainting Verified 05/19/21 13:41 oxycodone Allergy Shortness Verified 05/19/21 13:41 of Breath Penicillins Allergy Verified 05/19/21 13:41 oxymorphone AdvReac Severe Fainting Verified 05/19/21 13:41 [place] AdvReac Intermediate Headache Verified 05/19/21 13:41 bupropion HCl AdvReac Mild Hives Verified 05/19/21 13:41 [From Wellbutrin] - Past Medical History Past Medical History: Yes Neurological History: Migraines ENT History: No Pertinent History Cardiac History: Congestive Heart Failure, Coronary Artery Disease, High Cholesterol Respiratory History: Asthma, Bronchitis, COPD, Pneumonia Endocrine Medical History: Hypothyroidism Musculoskelatal History: Arthritis, Osteoporosis GI Medical History: GERD, Hernia, Polyps History: No Pertinent History Pyscho-Social History: Anxiety, Bipolar, Depression Reproductive Disorders: Fibroids Comment: 2 LEAKY VALVES. BORDERLINE PERSONALITY DISORDER, PTSD, manic depressive - Female History Are you now?: No - Past Surgical History Past Surgical History: Yes Neuro Surgical History: No Pertinent History Cardiac History: Cardiac Catheterization Respiratory Surgery: No Pertinent History GI Surgical History: Other Genitourinary Surgical Hx: No Pertinent History Musculskeletal Surgical Hx: Other Female Surgical History: Section Other Surgical History: ARM SURGERY-- left wrist laceration from a glass door, 2 c-sections, EGD with dilitation, colonoscopy, heart cath x 2 - Social History Smoking Status: Current every day smoker How long have you smoked: 40 years Exposure to second hand smoke: Yes Alcohol: None Drug Use: none Significant Family History: no pertinent family hx - Physical Exam Vital Signs: Vital Signs - 24 hr Temp Pulse Resp BP Pulse Ox 05/20/21 10:38 84 18 97 05/20/21 07:30 88 18 97 05/20/21 06:51 98.1 F 93 H 18 143/83 98 05/20/21 04:00 97.5 F 95 H 21 164/77 97 05/19/21 23:57 97.7 F 92 H 18 162/75 98 05/19/21 23:45 86 23 100 05/19/21 20:00 98.6 F 94 H 19 129/56 100 05/19/21 18:41 98 H 20 97 05/19/21 17:49 97.7 F 98 H 23 124/59 100 05/19/21 17:36 97.7 F 98 H 23 124/59 99 05/19/21 16:16 99 05/19/21 15:00 98 H 28 H 133/82 99 05/19/21 14:20 100 H 20 114/66 99 05/19/21 13:41 109 H 18 131/77 100 General Appearance: no apparent distress, alert Neurologic Exam: alert, oriented x 3, cooperative, normal mood/affect, nml cerebellar function, nml station & gait, sensation nml, No motor deficits Eye Exam: PERRL/EOMI, eyes nml inspection Ears, Nose, Throat Exam: normal ENT inspection, TMs normal, pharynx normal, moist mucous membranes Neck Exam: normal inspection, non-tender, supple, full range of motion Respiratory Exam: normal breath sounds, lungs clear, No respiratory distress Cardiovascular Exam: regular rate/rhythm, normal heart sounds, normal peripheral pulses Gastrointestinal/Abdomen Exam: soft, normal bowel sounds, No tenderness, No mass Back Exam: normal inspection, normal range of motion, No CVA tenderness, No vertebral tenderness Extremity Exam: normal inspection, normal range of motion, pelvis stable Skin Exam: normal color, warm, dry, No rash Lymphatic Exam: No adenopathy Results - Labs Lab/Micro Results: Lab Results-Last 24 Hours 05/19/21 05/19/21 05/19/21 Range/Units 13:50 13:50 13:50 WBC 8.9 (4.0-10.5) K/mm3 RBC 2.88 L (4.1-5.4) M/mm3 Hgb 6.8 L* (12.0-16.0) gm/dl Hct 25.1 L (35-47) % MCV 87.2 (78-100) fl MCH 23.6 L (26-32) pg MCHC 27.1 L (32-36) g/dl RDW 17.9 H (11.5-14.0) % Plt Count 500 H (150-450) K/mm3 MPV 10.7 (7.5-11.0) fl Gran % 85.7 H (36.0-66.0) % Eos # (Auto) 0.08 (0-0.5) Absolute Lymphs (auto) 0.76 L (1.0-4.6) Absolute Monos (auto) 0.37 (0.0-1.3) Lymphocytes % 8.6 L (24.0-44.0) % Monocytes % 4.2 (0.0-12.0) % Eosinophils % 0.9 (0.00-5.0) % Basophils % 0.6 (0.0-0.4) % Absolute Granulocytes 7.59 H (1.4-6.9) Basophils # 0.05 (0-0.4) PT 11.3 (9.4-12.5) SECONDS INR 0.96 (0.8-3.0) APTT 27.9 (25.1-36.5) SECONDS Sodium 140 (137-145) mmol/L Potassium 3.8 (3.5-5.1) mmol/L Chloride 101 (98-107) mmol/L Carbon Dioxide 34 H (22-30) mmol/L Anion Gap 8.3 (5-15) MEQ/L BUN 5 L (7-17) mg/dL Creatinine 0.61 (0.52-1.04) mg/dL Estimated GFR > 60.0 ML/MIN Glucose 142 H (74-106) mg/dL Lactic Acid (0.4-2.0) Calcium 8.9 (8.4-10.2) mg/dL Total Bilirubin 0.40 (0.2-1.3) mg/dL AST 30 (14-36) U/L ALT 15 (0-35) U/L Alkaline Phosphatase 52 (38-126) U/L Serum Total Protein 6.0 L (6.3-8.2) g/dL Albumin 3.4 L (3.5-5.0) g/dL Urinalys Dipstick Clnc Urine Color (YELLOW) Urine Appearance (CLEAR) Urine pH (5-6) Ur Specific [place] (1.005-1.025) POC Urine Protein Conf (Negative) Urine Ketones (NEGATIVE) Urine Nitrite (NEGATIVE) Urine Bilirubin (NEGATIVE) Urine Urobilinogen (0-1) mg/dL Urine Leukocytes (NEGATIVE) Urine WBC (Auto) (0-5) /HPF Urine RBC (Auto) (0-2) /HPF U Epithel Cells (Auto) (FEW) /HPF Urine Bacteria (Auto) (NEGATIVE) /HPF Urine RBC (0-5) Erasto/ul Urine Glucose (NEGATIVE) mg/dL Influenza Type A Ag (NEGATIVE) Influenza Type B Ag (NEGATIVE) RSV (PCR) (Negative) SARS-CoV-2 (PCR) (NEGATIVE) Slides for Path Review YES ABO Group Rh Factor Antibody Screen (NEGATIVE) Crossmatch (COMPATIBLE) 05/19/21 05/19/21 05/19/21 Range/Units 13:54 13:56 14:24 WBC (4.0-10.5) K/mm3 RBC (4.1-5.4) M/mm3 Hgb (12.0-16.0) gm/dl Hct (35-47) % MCV (78-100) fl MCH (26-32) pg MCHC (32-36) g/dl RDW (11.5-14.0) % Plt Count (150-450) K/mm3 MPV (7.5-11.0) fl Gran % (36.0-66.0) % Eos # (Auto) (0-0.5) Absolute Lymphs (auto) (1.0-4.6) Absolute Monos (auto) (0.0-1.3) Lymphocytes % (24.0-44.0) % Monocytes % (0.0-12.0) % Eosinophils % (0.00-5.0) % Basophils % (0.0-0.4) % Absolute Granulocytes (1.4-6.9) Basophils # (0-0.4) PT (9.4-12.5) SECONDS INR (0.8-3.0) APTT (25.1-36.5) SECONDS Sodium (137-145) mmol/L Potassium (3.5-5.1) mmol/L Chloride (98-107) mmol/L Carbon Dioxide (22-30) mmol/L Anion Gap (5-15) MEQ/L BUN (7-17) mg/dL Creatinine (0.52-1.04) mg/dL Estimated GFR ML/MIN Glucose (74-106) mg/dL Lactic Acid 1.9 (0.4-2.0) Calcium (8.4-10.2) mg/dL Total Bilirubin (0.2-1.3) mg/dL AST (14-36) U/L ALT (0-35) U/L Alkaline Phosphatase (38-126) U/L Serum Total Protein (6.3-8.2) g/dL Albumin (3.5-5.0) g/dL Urinalys Dipstick Clnc MAIN LAB Urine Color YELLOW (YELLOW) Urine Appearance CLEAR (CLEAR) Urine pH 7.0 (5-6) Ur Specific [place] 1.025 (1.005-1.025) POC Urine Protein Conf NEGATIVE (Negative) Urine Ketones NEGATIVE (NEGATIVE) Urine Nitrite NEGATIVE (NEGATIVE) Urine Bilirubin NEGATIVE (NEGATIVE) Urine Urobilinogen 0.2 (0-1) mg/dL Urine Leukocytes NEGATIVE (NEGATIVE) Urine WBC (Auto) NONE (0-5) /HPF Urine RBC (Auto) NONE (0-2) /HPF U Epithel Cells (Auto) NONE (FEW) /HPF Urine Bacteria (Auto) NONE (NEGATIVE) /HPF Urine RBC NEGATIVE (0-5) Erasto/ul Urine Glucose NEGATIVE (NEGATIVE) mg/dL Influenza Type A Ag NEGATIVE (NEGATIVE) Influenza Type B Ag NEGATIVE (NEGATIVE) RSV (PCR) NEGATIVE (Negative) SARS-CoV-2 (PCR) NEGATIVE (NEGATIVE) Slides for Path Review ABO Group Rh Factor Antibody Screen (NEGATIVE) Crossmatch (COMPATIBLE) 05/19/21 05/19/21 05/20/21 Range/Units 14:38 Unknown 01:00 WBC (4.0-10.5) K/mm3 RBC (4.1-5.4) M/mm3 Hgb 8.5 L D (12.0-16.0) gm/dl Hct 29.8 L (35-47) % MCV (78-100) fl MCH (26-32) pg MCHC (32-36) g/dl RDW (11.5-14.0) % Plt Count (150-450) K/mm3 MPV (7.5-11.0) fl Gran % (36.0-66.0) % Eos # (Auto) (0-0.5) Absolute Lymphs (auto) (1.0-4.6) Absolute Monos (auto) (0.0-1.3) Lymphocytes % (24.0-44.0) % Monocytes % (0.0-12.0) % Eosinophils % (0.00-5.0) % Basophils % (0.0-0.4) % Absolute Granulocytes (1.4-6.9) Basophils # (0-0.4) PT (9.4-12.5) SECONDS INR (0.8-3.0) APTT (25.1-36.5) SECONDS Sodium (137-145) mmol/L Potassium (3.5-5.1) mmol/L Chloride (98-107) mmol/L Carbon Dioxide (22-30) mmol/L Anion Gap (5-15) MEQ/L BUN (7-17) mg/dL Creatinine (0.52-1.04) mg/dL Estimated GFR ML/MIN Glucose (74-106) mg/dL Lactic Acid (0.4-2.0) Calcium (8.4-10.2) mg/dL Total Bilirubin (0.2-1.3) mg/dL AST (14-36) U/L ALT (0-35) U/L Alkaline Phosphatase (38-126) U/L Serum Total Protein (6.3-8.2) g/dL Albumin (3.5-5.0) g/dL Urinalys Dipstick Clnc Urine Color (YELLOW) Urine Appearance (CLEAR) Urine pH (5-6) Ur Specific [place] (1.005-1.025) POC Urine Protein Conf (Negative) Urine Ketones (NEGATIVE) Urine Nitrite (NEGATIVE) Urine Bilirubin (NEGATIVE) Urine Urobilinogen (0-1) mg/dL Urine Leukocytes (NEGATIVE) Urine WBC (Auto) (0-5) /HPF Urine RBC (Auto) (0-2) /HPF U Epithel Cells (Auto) (FEW) /HPF Urine Bacteria (Auto) (NEGATIVE) /HPF Urine RBC (0-5) [place]o/ul Urine Glucose (NEGATIVE) mg/dL Influenza Type A Ag (NEGATIVE) Influenza Type B Ag (NEGATIVE) RSV (PCR) (Negative) SARS-CoV-2 (PCR) (NEGATIVE) Slides for Path Review ABO Group A Rh Factor POSITIVE Antibody Screen NEGATIVE (NEGATIVE) Crossmatch COMPATIBLE COMPATIBLE (COMPATIBLE) - Radiology Impressions Radiology Exams & Impressions: Radiology Procedures Category Date Time Status CHEST 1 VIEW (PORTABLE) Stat Exams 05/19/21 13:55 Completed - Other Procedures and Tests Respiratory Therapy 05/19/21 18:41 Oxygen NASAL CANNULA 3 lpm Respiratory Therapy Assessment DAILY Assessment/Plan (1) Anemia Status: Chronic Qualifiers: Anemia type: other cause Other causes of anemia: nutritional, other Qualified Code(s): D53.8 - Other specified nutritional anemias Assessment & Plan: Chief Complaint Diagnosis anemia Allergies Allergy/AdvReac Type Severity Reaction Status Date / Time morphine Allergy Severe Fainting Verified 05/19/21 13:41 oxycodone Allergy Shortness Verified 05/19/21 13:41 of Breath Penicillins Allergy Verified 05/19/21 13:41 oxymorphone AdvReac Severe Fainting Verified 05/19/21 13:41 [place] AdvReac Intermediate Headache Verified 05/19/21 13:41 bupropion HCl AdvReac Mild Hives Verified 05/19/21 13:41 [From Wellbutrin] Vital Signs (Last 24 hours) Temp Pulse Resp BP Pulse Ox 05/20/21 10:38 84 18 97 05/20/21 07:30 88 18 97 05/20/21 06:51 98.1 F 93 H 18 143/83 98 05/20/21 04:00 97.5 F 95 H 21 164/77 97 05/19/21 23:57 97.7 F 92 H 18 162/75 98 05/19/21 23:45 86 23 100 05/19/21 20:00 98.6 F 94 H 19 129/56 100 05/19/21 18:41 98 H 20 97 05/19/21 17:49 97.7 F 98 H 23 124/59 100 05/19/21 17:36 97.7 F 98 H 23 124/59 99 05/19/21 16:16 99 05/19/21 15:00 98 H 28 H 133/82 99 05/19/21 14:20 100 H 20 114/66 99 05/19/21 13:41 109 H 18 131/77 100 Home Medications Medication Instructions Recorded Confirmed Last Taken Type Ferrous Sulfate 220 mg/5 ml 5 ml PO BID 30 Days #300 ml 05/20/21 Unknown Rx [Ferrous Sulfate (IRON) 220 MG/5 ML] Current Medications Generic Name Dose Route Start Last Admin Trade Name Freq PRN Reason Stop Dose Admin Albuterol Sulfate 2 puff 05/19/21 17:17 Albuterol Common Canister Inhaler 06/18/21 17:16 QID PRN PRN SHORTNESS OF BREATH Albuterol Sulfate 2.5 mg 05/19/21 23:35 05/19/21 23:43 Albuterol Sulfate 2.5 Mg/3 Ml Neb 04/20/22 23:34 2.5 mg Q4H PRN PRN Administration SHORTNESS OF BREATH/WHEEZING Albuterol/Ipratropium 3 ml 05/19/21 19:00 05/20/21 10:36 Ipratropium/Albuterol Sulfate 3 Ml Ampul.Neb IH 06/18/21 18:59 3 ml QIDRT VALERY Administration Calcium Carbonate/Glycine 750 mg 05/19/21 17:16 05/20/21 02:34 Calcium Carbonate 750 Mg 750 Mg Tab.Chew PO 06/18/21 17:15 750 mg Q4HPRN PRN Administration INDIGESTION Clonazepam 2 mg 05/19/21 22:00 05/20/21 09:32 Clonazepam 2 Mg Tablet PO 06/18/21 21:59 2 mg BID VALERY Administration Famotidine 20 mg 05/20/21 10:00 05/20/21 09:31 Famotidine 20 Mg Tablet PO 06/19/21 09:59 20 mg DAILY VALERY Administration Fluticasone Propionate 0 gm 05/19/21 22:00 05/20/21 09:32 Fluticasone Propionate 16 Gm Bottle Nasal [place] NS 06/18/21 21:59 1 gm BID VALERY Administration Furosemide 40 mg 05/19/21 16:35 Furosemide 40 Mg/4 Ml Vial IV 06/18/21 16:19 AFTER LAST UNIT PRN SHORTNESS OF BREATH Gabapentin 1,200 mg 05/20/21 10:00 05/20/21 09:31 Gabapentin 400 Mg Capsule PO 06/19/21 09:59 1,200 mg QAM VALERY Administration Gabapentin 2,400 mg 05/19/21 22:00 05/19/21 23:19 Gabapentin 400 Mg Capsule PO 06/18/21 21:59 2,400 mg HS VALERY Administration Sodium Chloride 1,000 mls @ 50 mls/hr 05/19/21 17:30 05/19/21 17:30 Sodium Chloride 0.9% 1000 Ml IV 06/18/21 17:29 50 mls/hr .Q20H VALERY Administration Isosorbide Mononitrate 30 mg 05/20/21 10:00 05/20/21 09:31 Isosorbide Mononitrate 30 Mg Tab PO 06/19/21 09:59 30 mg DAILY VALERY Administration Levothyroxine Sodium 25 mcg 05/20/21 10:00 05/20/21 09:31 Levothyroxine Sodium 25 Mcg Tablet PO 06/19/21 09:59 25 mcg DAILY VALERY Administration Multivitamins Therapeutic 1 tab 05/20/21 10:00 05/20/21 09:31 Multivitamins,Therapeutic 1 Tab Tab PO 06/19/21 09:59 1 tab DAILY VALERY Administration Nitroglycerin 0.4 mg 05/19/21 17:17 Nitroglycerin 0.4 Mg Tablet Bottle SL 06/18/21 17:16 UD PRN CHEST PAIN Pantoprazole Sodium 40 mg 05/20/21 10:00 05/20/21 09:31 Protonix (Pantoprazole) 40 Mg Tablet PO 06/19/21 09:59 40 mg DAILY VALERY Administration Prednisone 20 mg 05/19/21 22:00 05/20/21 09:32 Prednisone 20 Mg Tablet PO 06/18/21 21:59 20 mg BID VALERY Administration Quetiapine Fumarate 200 mg 05/20/21 10:00 05/20/21 09:31 Quetiapine Fumarate 100 Mg Tablet PO 06/19/21 09:59 200 mg DAILY VALERY Administration Quetiapine Fumarate 300 mg 05/19/21 22:00 05/19/21 23:20 Quetiapine Fumarate 100 Mg Tablet PO 06/18/21 21:59 300 mg QHS VALERY Administration Fluticasone/Salmeterol 2 puff 05/19/21 19:00 05/19/21 18:36 Fluticasone/Salmeterol 115/21 - 120 Puff Common Canister IH 06/18/21 18:59 2 puff BIDRT VALERY Administration Sertraline HCl 200 mg 05/20/21 10:00 05/20/21 09:31 Sertraline Hcl 50 Mg Tab PO 06/19/21 09:59 200 mg DAILY VALERY Administration Theophylline 300 mg 05/20/21 10:00 05/20/21 09:33 Theophylline Anhydrous 400 Mg Tab.Er.24hr Tablet PO 06/19/21 09:59 300 mg DAILY VALERY Administration Tizanidine HCl 4 mg 05/19/21 22:00 05/20/21 09:32 Tizanidine Hcl 4 Mg Tablet PO 06/18/21 21:59 4 mg TID VALERY Administration Discontinued Medications Generic Name Dose Route Start Last Admin Trade Name Freq PRN Reason Stop Dose Admin Albuterol Sulfate Confirm 05/19/21 23:40 Albuterol Sulfate 2.5 Mg/3 Ml Neb Administered 05/19/21 23:41 Dose 2.5 mg IH .STK-MED ONE Clonazepam Confirm 05/19/21 23:15 Clonazepam 2 Mg Tablet Administered 05/19/21 23:16 Dose 2 mg .ROUTE .STK-MED ONE Fluticasone Propionate Confirm 05/19/21 23:16 Fluticasone Propionate 16 Gm Bottle Nasal [place] Administered 05/19/21 23:17 Dose 16 gm NS .STK-MED ONE Furosemide 40 mg 05/19/21 16:20 Furosemide 40 Mg/4 Ml Vial IV 06/18/21 16:19 AFTER LAST UNIT PRN SHORTNESS OF BREATH Gabapentin Confirm 05/19/21 23:16 Gabapentin 400 Mg Capsule Administered 05/19/21 23:17 Dose 2,400 mg .ROUTE .STK-MED ONE Sodium Chloride Confirm 05/19/21 17:24 Sodium Chloride 0.9% 1000 Ml Administered 05/19/21 17:25 Dose 1,000 mls @ ud .ROUTE .STK-MED ONE Ketorolac Tromethamine 30 mg 05/19/21 15:02 05/19/21 15:07 Ketorolac Tromethamine 30 Mg/Ml Inj IV 05/19/21 15:03 30 mg STAT ONE Administration Ketorolac Tromethamine Confirm 05/19/21 15:04 Ketorolac Tromethamine 30 Mg/Ml Inj Administered 05/19/21 15:05 Dose 30 mg .ROUTE .STK-MED ONE Ondansetron HCl 4 mg 05/19/21 15:02 05/19/21 15:07 Ondansetron Hcl 4 Mg/2 Ml Vial IV 05/19/21 15:03 4 mg STAT ONE Administration Ondansetron HCl Confirm 05/19/21 15:04 Ondansetron Hcl 4 Mg/2 Ml Vial Administered 05/19/21 15:05 Dose 4 mg .ROUTE .STK-MED ONE Prednisone Confirm 05/19/21 23:16 Prednisone 20 Mg Tablet Administered 05/19/21 23:17 Dose 20 mg .ROUTE .STK-MED ONE Quetiapine Fumarate Confirm 05/19/21 23:15 Quetiapine Fumarate 100 Mg Tablet Administered 05/19/21 23:16 Dose 300 mg .ROUTE .STK-MED ONE Tizanidine HCl Confirm 05/19/21 23:15 Tizanidine Hcl 4 Mg Tablet Administered 05/19/21 23:16 Dose 4 mg .ROUTE .STK-MED ONE Intake & Output (Last 24 hours) 05/17/21 05/18/21 05/19/21 05/20/21 11:59 11:59 11:59 11:59 Intake Total 1160 Output Total 1480 Balance -320 Weight 82.2 kg Laboratory Results (Last 24 hours) 05/20/21 05/19/21 05/19/21 01:00 Unknown 14:38 WBC RBC Hgb 8.5 L D Hct 29.8 L MCV MCH MCHC RDW Plt Count MPV Gran % Eos # (Auto) Absolute Lymphs (auto) Absolute Monos (auto) Lymphocytes % Monocytes % Eosinophils % Basophils % Absolute Granulocytes Basophils # PT INR APTT Sodium Potassium Chloride Carbon Dioxide Anion Gap BUN Creatinine Estimated GFR Glucose Lactic Acid Calcium Total Bilirubin AST ALT Alkaline Phosphatase Serum Total Protein Albumin Urinalys Dipstick Clnc Urine Color Urine Appearance Urine pH Ur Specific [place] POC Urine Protein Conf Urine Ketones Urine Nitrite Urine Bilirubin Urine Urobilinogen Urine Leukocytes Urine WBC (Auto) Urine RBC (Auto) U Epithel Cells (Auto) Urine Bacteria (Auto) Urine RBC Urine Glucose Influenza Type A Ag Influenza Type B Ag RSV (PCR) SARS-CoV-2 (PCR) Slides for Path Review ABO Group A Rh Factor POSITIVE Antibody Screen NEGATIVE Crossmatch COMPATIBLE COMPATIBLE 05/19/21 05/19/21 05/19/21 14:24 13:56 13:54 WBC RBC Hgb Hct MCV MCH MCHC RDW Plt Count MPV Gran % Eos # (Auto) Absolute Lymphs (auto) Absolute Monos (auto) Lymphocytes % Monocytes % Eosinophils % Basophils % Absolute Granulocytes Basophils # PT INR APTT Sodium Potassium Chloride Carbon Dioxide Anion Gap BUN Creatinine Estimated GFR Glucose Lactic Acid 1.9 Calcium Total Bilirubin AST ALT Alkaline Phosphatase Serum Total Protein Albumin Urinalys Dipstick Clnc MAIN LAB Urine Color YELLOW Urine Appearance CLEAR Urine pH 7.0 Ur Specific [place] 1.025 POC Urine Protein Conf NEGATIVE Urine Ketones NEGATIVE Urine Nitrite NEGATIVE Urine Bilirubin NEGATIVE Urine Urobilinogen 0.2 Urine Leukocytes NEGATIVE Urine WBC (Auto) NONE Urine RBC (Auto) NONE U Epithel Cells (Auto) NONE Urine Bacteria (Auto) NONE Urine RBC NEGATIVE Urine Glucose NEGATIVE Influenza Type A Ag NEGATIVE Influenza Type B Ag NEGATIVE RSV (PCR) NEGATIVE SARS-CoV-2 (PCR) NEGATIVE Slides for Path Review ABO Group Rh Factor Antibody Screen Crossmatch 05/19/21 05/19/21 05/19/21 13:50 13:50 13:50 WBC 8.9 RBC 2.88 L Hgb 6.8 L* Hct 25.1 L MCV 87.2 MCH 23.6 L MCHC 27.1 L RDW 17.9 H Plt Count 500 H MPV 10.7 Gran % 85.7 H Eos # (Auto) 0.08 Absolute Lymphs (auto) 0.76 L Absolute Monos (auto) 0.37 Lymphocytes % 8.6 L Monocytes % 4.2 Eosinophils % 0.9 Basophils % 0.6 Absolute Granulocytes 7.59 H Basophils # 0.05 PT 11.3 INR 0.96 APTT 27.9 Sodium 140 Potassium 3.8 Chloride 101 Carbon Dioxide 34 H Anion Gap 8.3 BUN 5 L Creatinine 0.61 Estimated GFR > 60.0 Glucose 142 H Lactic Acid Calcium 8.9 Total Bilirubin 0.40 AST 30 ALT 15 Alkaline Phosphatase 52 Serum Total Protein 6.0 L Albumin 3.4 L Urinalys Dipstick Clnc Urine Color Urine Appearance Urine pH Ur Specific [place] POC Urine Protein Conf Urine Ketones Urine Nitrite Urine Bilirubin Urine Urobilinogen Urine Leukocytes Urine WBC (Auto) Urine RBC (Auto) U Epithel Cells (Auto) Urine Bacteria (Auto) Urine RBC Urine Glucose Influenza Type A Ag Influenza Type B Ag RSV (PCR) SARS-CoV-2 (PCR) Slides for Path Review YES ABO Group Rh Factor Antibody Screen Crossmatch Orders (Last 24 hours) Category Date Time Status Up With Assistance ROUTINE Activity 05/19/21 16:19 Completed Up [Up With Assistance] TOLERATED Activity 05/19/21 17:01 Active Admitting Clerk STAT Care 05/19/21 13:55 Completed Code Status Order ROUTINE Care 05/19/21 16:17 Active Code Status Order ROUTINE Care 05/19/21 16:19 Completed Consent,Obtain ROUTINE Care 05/19/21 16:20 Active EKG-ER Only STAT Care 05/19/21 13:55 Completed IV Care Q6H Care 05/19/21 16:17 Active IV Care Q6H Care 05/19/21 16:19 Completed IV Insertion STAT Care 05/19/21 13:54 Completed Oxygen-ED Only Nasal Cannula 4 lpm Care 05/19/21 13:[address] in Observation ROUTINE Care 05/19/21 16:17 Active Telemetry q4h Care 05/19/21 17:01 Active Vital Signs Q4H Care 05/19/21 16:19 Completed Consistent Carbohydrate Diet 1800 Calorie Diet 05/19/21 Dinner Completed House Regular Diet Diet 05/19/21 Dinner Active Discharge Routine Discharge 05/20/21 08:44 Ordered CHEST 1 VIEW (PORTABLE) Stat Exams 05/19/21 13:55 Completed CBC W DIFF Stat Lab 05/19/21 13:50 Completed CMP Stat Lab 05/19/21 13:50 Completed HEMOGLOBIN AND HEMATOCRIT NOW Lab 05/20/21 01:00 Completed Lactic Acid Stat Lab 05/19/21 13:54 Completed PROTIME WITH INR Stat Lab 05/19/21 13:50 Completed PTT Stat Lab 05/19/21 13:50 Completed Albuterol 2.5 mg/3 ml Neb [Proventil 2.5 mg/3 ml Neb Med 05/19/21 23:40 Discontinued ] 2.5 mg IH .STK-MED ONE Albuterol 2.5 mg/3 ml Neb [Proventil 2.5 mg/3 ml Neb Med 05/19/21 23:35 Active ] 2.5 mg IH Q4H PRN PRN Albuterol Common Canister [Ventolin Common Canister* Med 05/19/21 17:17 Active ] 2 puff IH QID PRN PRN Albuterol/Ipratropium 3ml Neb* [DUONEB 0.5-3 MG/3 ml Med 05/19/21 19:00 Active Neb] 3 ml IH QIDRT Calcium Carbonate 750 mg [Tums EX 750 MG] Med 05/19/21 17:16 Active 750 mg PO Q4HPRN PRN Clonazepam [Klonopin] Med 05/19/21 23:15 Discontinued 2 mg .ROUTE .STK-MED ONE Clonazepam [Klonopin] Med 05/19/21 22:00 Active 2 mg PO BID Famotidine 20 mg [Pepcid 20 MG] Med 05/20/21 10:00 Active 20 mg PO DAILY Fluticasone Propionate [Flonase NASAL] Med 05/19/21 22:00 Active 0 gm NS BID Fluticasone Propionate [Flonase NASAL] Med 05/19/21 23:16 Discontinued 16 gm NS .STK-MED ONE Fluticasone/Salmeterol [Advair Hfa / Common Med 05/19/21 19:00 Active canister*] 2 puff IH BIDRT Furosemide 40 mg/4 ml [Lasix 40 MG/4 ML] Med 05/19/21 16:20 Discontinued 40 mg IV AFTER LAST UNIT PRN Furosemide 40 mg/4 ml [Lasix 40 MG/4 ML] Med 05/19/21 16:35 Active 40 mg IV AFTER LAST UNIT PRN Gabapentin 400 mg [Neurontin 400 MG] Med 05/20/21 10:00 Active 1,200 mg PO QAM Gabapentin 400 mg [Neurontin 400 MG] Med 05/19/21 23:16 Discontinued 2,400 mg .ROUTE .STK-MED ONE Gabapentin 400 mg [Neurontin 400 MG] Med 05/19/21 22:00 Active 2,400 mg PO HS Isosorbide Mononitrate 30 mg [Imdur 30 MG] Med 05/20/21 10:00 Active 30 mg PO DAILY KETOROLAC trometh 30 mg Inj [TORAdol 30 mg Injection Med 05/19/21 15:04 Discontinued ] 30 mg .ROUTE .STK-MED ONE KETOROLAC trometh 30 mg Inj [TORAdol 30 mg Injection Med 05/19/21 15:02 Discontinued ] 30 mg IV STAT ONE Levothyroxine Sodium 25 Mcg [Synthroid 25 Mcg] Med 05/20/21 10:00 Active 25 mcg PO DAILY Multivitamins,Therapeutic Tab* [Theragran Multivitamin* Med 05/20/21 10:00 Active ] 1 tab PO DAILY NaCl 0.9% 1000 ml [Sodium Chloride 0.9% 1000 ML] 1,000 Med 05/19/21 17:24 Discontinued ml .ROUTE UD NaCl 0.9% 1000 ml [Sodium Chloride 0.9% 1000 ML] 1,000 Med 05/19/21 17:30 Active ml IV 50 mls/hr Nitroglycerin 0.4 mg Tablet [Nitrostat 0.4 MG Tablet Med 05/19/21 17:17 Active ] 0.4 mg SL UD PRN Ondansetron HCl 4 mg/2 ml [Zofran 4 MG/2 ML VIAL] Med 05/19/21 15:04 Disc ontinued 4 mg .ROUTE .STK-MED ONE Ondansetron HCl 4 mg/2 ml [Zofran 4 MG/2 ML VIAL] Med 05/19/21 15:02 Discontinued 4 mg IV STAT ONE PANTOPRAZOLE 40 mg Tablet [Protonix 40MG Tablet] Med 05/20/21 10:00 Active 40 mg PO DAILY Prednisone 20 mg [Deltasone 20 mg] Med 05/19/21 23:16 Discontinued 20 mg .ROUTE .STK-MED ONE Prednisone 20 mg [Deltasone 20 mg] Med 05/19/21 22:00 Active 20 mg PO BID Quetiapine Fumarate 100 mg [Seroquel 100 MG] Med 05/20/21 10:00 Active 200 mg PO DAILY Quetiapine Fumarate 100 mg [Seroquel 100 MG] Med 05/19/21 23:15 Discontinued 300 mg .ROUTE .STK-MED ONE Quetiapine Fumarate 100 mg [Seroquel 100 MG] Med 05/19/21 22:00 Active 300 mg PO QHS Sertraline HCl 50 mg [Zoloft 50 mg Tablet] Med 05/20/21 10:00 Active 200 mg PO DAILY Theophylline Anhydrous [Theophylline ER 24Hr] Med 05/20/21 10:00 Active 300 mg PO DAILY Tizanidine HCl 4 mg [Zanaflex 4 MG] Med 05/19/21 23:15 Discontinued 4 mg .ROUTE .STK-MED ONE Tizanidine HCl 4 mg [Zanaflex 4 MG] Med 05/19/21 22:00 Active 4 mg PO TID Oxygen NASAL CANNULA 3 lpm RT 05/19/21 18:41 Active Pulse Oximetry .continuos RT 05/19/21 18:42 Active RT Screen per Nursing Assess TOLERATED RT 05/19/21 17:01 Completed Respiratory Therapy Assessment DAILY RT 05/19/21 18:41 Active Patient Care Notes (Last 24 hours) 05/20/21 09:12 Case Management Note by Anabela Brown PATIENT HAS [facility]. THEY WERE NOTIFIED PATIENT IS HERE AND WILL BE DCING HOME TODAY. THEY WILL NEED FAXED THE DC INSTRUCTIONS, DC MED LIST, DC SUMMARY ( IF AVAILABLE) TO [phone] Initialized on 05/20/21 09:12 - END OF NOTE Code(s): D64.9 - ANEMIA, UNSPECIFIED Hospital Summary - Hospital Course Hospital Course: Chief Complaint Diagnosis anemia Allergies Allergy/AdvReac Type Severity Reaction Status Date / Time morphine Allergy Severe Fainting Verified 05/19/21 13:41 oxycodone Allergy Shortness Verified 05/19/21 13:41 of Breath Penicillins Allergy Verified 05/19/21 13:41 oxymorphone AdvReac Severe Fainting Verified 05/19/21 13:41 [place] AdvReac Intermediate Headache Verified 05/19/21 13:41 bupropion HCl AdvReac Mild Hives Verified 05/19/21 13:41 [From Wellbutrin] Vital Signs (Last 24 hours) Temp Pulse Resp BP Pulse Ox 05/20/21 10:38 84 18 97 05/20/21 07:30 88 18 97 05/20/21 06:51 98.1 F 93 H 18 143/83 98 05/20/21 04:00 97.5 F 95 H 21 164/77 97 05/19/21 23:57 97.7 F 92 H 18 162/75 98 05/19/21 23:45 86 23 100 05/19/21 20:00 98.6 F 94 H 19 129/56 100 05/19/21 18:41 98 H 20 97 05/19/21 17:49 97.7 F 98 H 23 124/59 100 05/19/21 17:36 97.7 F 98 H 23 124/59 99 05/19/21 16:16 99 05/19/21 15:00 98 H 28 H 133/82 99 05/19/21 14:20 100 H 20 114/66 99 05/19/21 13:41 109 H 18 131/77 100 Home Medications Medication Instructions Recorded Confirmed Last Taken Type Ferrous Sulfate 220 mg/5 ml 5 ml PO BID 30 Days #300 ml 05/20/21 Unknown Rx [Ferrous Sulfate (IRON) 220 MG/5 ML] Current Medications Generic Name Dose Route Start Last Admin Trade Name Freq PRN Reason Stop Dose Admin Albuterol Sulfate 2 puff 05/19/21 17:17 Albuterol Common Canister Inhaler IH 06/18/21 17:16 QID PRN PRN SHORTNESS OF BREATH Albuterol Sulfate 2.5 mg 05/19/21 23:35 05/19/21 23:43 Albuterol Sulfate 2.5 Mg/3 Ml Neb IH 06/18/21 23:34 2.5 mg Q4H PRN PRN Administration SHORTNESS OF BREATH/WHEEZING Clonazepam 2 mg 05/19/21 22:00 05/20/21 09:32 Clonazepam 2 Mg Tablet PO 06/18/21 21:59 2 mg BID VALERY Administration Gabapentin 1,200 mg 05/20/21 10:00 05/20/21 09:31 Gabapentin 400 Mg Capsule PO 06/19/21 09:59 1,200 mg QAM VALERY Administration Gabapentin 2,400 mg 05/19/21 22:00 05/19/21 23:19 Gabapentin 400 Mg Capsule PO 06/18/21 21:59 2,400 mg HS VALERY Administration Levothyroxine Sodium 25 mcg 05/20/21 10:00 05/20/21 09:31 Levothyroxine Sodium 25 Mcg Tablet PO 06/19/21 09:59 25 mcg DAILY VALERY Administration Multivitamins Therapeutic 1 tab 05/20/21 10:00 05/20/21 09:31 Multivitamins,Therapeutic 1 Tab Tab PO 06/19/21 09:59 1 tab DAILY VALERY Administration Quetiapine Fumarate 300 mg 05/19/21 22:00 05/19/21 23:20 Quetiapine Fumarate 100 Mg Tablet PO 06/18/21 21:59 300 mg QHS VALERY Administration Fluticasone/Salmeterol 2 puff 05/19/21 19:00 05/19/21 18:36 Fluticasone/Salmeterol /21 - 120 Puff Common Canister IH 06/18/21 18:59 2 puff BIDRT VALERY Administration Sertraline HCl 200 mg 05/20/21 10:00 05/20/21 09:31 Sertraline Hcl 50 Mg Tab PO 06/19/21 09:59 200 mg DAILY VALERY Administration Theophylline 300 mg 05/20/21 10:00 05/20/21 09:33 Theophylline Anhydrous 400 Mg Tab.Er.24hr Tablet PO 06/19/21 09:59 300 mg DAILY VALERY Administration Tizanidine HCl 4 mg 05/19/21 22:00 05/20/21 09:32 Tizanidine Hcl 4 Mg Tablet PO 06/18/21 21:59 4 mg TID VALERY Administration Discontinued Medications Generic Name Dose Route Start Last Admin Trade Name Freq PRN Reason Stop Dose Admin Albuterol Sulfate Confirm 05/19/21 23:40 Albuterol Sulfate 2.5 Mg/3 Ml Neb Administered 05/19/21 23:41 Dose 2.5 mg IH .STK-MED ONE Albuterol/Ipratropium 3 ml 05/19/21 19:00 05/20/21 10:36 Ipratropium/Albuterol Sulfate 3 Ml Ampul.Neb 06/18/21 18:59 3 ml QIDRT VALERY Administration Calcium Carbonate/Glycine 750 mg 05/19/21 17:16 05/20/21 02:34 Calcium Carbonate 750 Mg 750 Mg Tab.Chew PO 06/18/21 17:15 750 mg Q4HPRN PRN Administration INDIGESTION Clonazepam Confirm 05/19/21 23:15 Clonazepam 2 Mg Tablet Administered 05/19/21 23:16 Dose 2 mg .ROUTE .STK-MED ONE Famotidine 20 mg 05/20/21 10:00 05/20/21 09:31 Famotidine 20 Mg Tablet PO 06/19/21 09:59 20 mg DAILY VALERY Administration Fluticasone Propionate 0 gm 05/19/21 22:00 05/20/21 09:32 Fluticasone Propionate 16 Gm Bottle Nasal [place] NS 06/18/21 21:59 1 gm BID VALERY Administration Fluticasone Propionate Confirm 05/19/21 23:16 Fluticasone Propionate 16 Gm Bottle Nasal [place] Administered 05/19/21 23:17 Dose 16 gm NS .STK-MED ONE Furosemide 40 mg 05/19/21 16:20 Furosemide 40 Mg/4 Ml Vial IV 06/18/21 16:19 AFTER LAST UNIT PRN SHORTNESS OF BREATH Furosemide 40 mg 05/19/21 16:35 Furosemide 40 Mg/4 Ml Vial IV 06/18/21 16:19 AFTER LAST UNIT PRN SHORTNESS OF BREATH Gabapentin Confirm 05/19/21 23:16 Gabapentin 400 Mg Capsule Administered 05/19/21 23:17 Dose 2,400 mg .ROUTE .STK-MED ONE Sodium Chloride 1,000 mls @ 50 mls/hr 05/19/21 17:30 05/19/21 17:30 Sodium Chloride 0.9% 1000 Ml IV 06/18/21 17:29 50 mls/hr .Q20H VALERY Administration Sodium Chloride Confirm 05/19/21 17:24 Sodium Chloride 0.9% 1000 Ml Administered 05/19/21 17:25 Dose 1,000 mls @ ud .ROUTE .STK-MED ONE Isosorbide Mononitrate 30 mg 05/20/21 10:00 05/20/21 09:31 Isosorbide Mononitrate 30 Mg Tab PO 06/19/21 09:59 30 mg DAILY VALERY Administration Ketorolac Tromethamine 30 mg 05/19/21 15:02 05/19/21 15:07 Ketorolac Tromethamine 30 Mg/Ml Inj IV 05/19/21 15:03 30 mg STAT ONE Administration Ketorolac Tromethamine Confirm 05/19/21 15:04 Ketorolac Tromethamine 30 Mg/Ml Inj Administered 05/19/21 15:05 Dose 30 mg .ROUTE .STK-MED ONE Nitroglycerin 0.4 mg 05/19/21 17:17 Nitroglycerin 0.4 Mg Tablet Bottle SL 06/18/21 17:16 UD PRN CHEST PAIN Ondansetron HCl 4 mg 05/19/21 15:02 05/19/21 15:07 Ondansetron Hcl 4 Mg/2 Ml Vial IV 05/19/21 15:03 4 mg STAT ONE Administration Ondansetron HCl Confirm 05/19/21 15:04 Ondansetron Hcl 4 Mg/2 Ml Vial Administered 05/19/21 15:05 Dose 4 mg .ROUTE .STK-MED ONE Pantoprazole Sodium 40 mg 05/20/21 10:00 05/20/21 09:31 Protonix (Pantoprazole) 40 Mg Tablet PO 06/19/21 09:59 40 mg DAILY VALERY Administration Prednisone 20 mg 05/19/21 22:00 05/20/21 09:32 Prednisone 20 Mg Tablet PO 06/18/21 21:59 20 mg BID VALERY Administration Prednisone Confirm 05/19/21 23:16 Prednisone 20 Mg Tablet Administered 05/19/21 23:17 Dose 20 mg .ROUTE .STK-MED ONE Quetiapine Fumarate 200 mg 05/20/21 10:00 05/20/21 09:31 Quetiapine Fumarate 100 Mg Tablet PO 06/19/21 09:59 200 mg DAILY VALERY Administration Quetiapine Fumarate Confirm 05/19/21 23:15 Quetiapine Fumarate 100 Mg Tablet Administered 05/19/21 23:16 Dose 300 mg .ROUTE .STK-MED ONE Tizanidine HCl Confirm 05/19/21 23:15 Tizanidine Hcl 4 Mg Tablet Administered 05/19/21 23:16 Dose 4 mg .ROUTE .STK-MED ONE Intake & Output (Last 24 hours) 05/17/21 05/18/21 05/19/21 05/20/21 11:59 11:59 11:59 11:59 Intake Total 1160 Output Total 1480 Balance -320 Weight 82.2 kg Laboratory Results (Last 24 hours) 05/20/21 05/19/21 05/19/21 01:00 Unknown 14:38 WBC RBC Hgb 8.5 L D Hct 29.8 L MCV MCH MCHC RDW Plt Count MPV Gran % Eos # (Auto) Absolute Lymphs (auto) Absolute Monos (auto) Lymphocytes % Monocytes % Eosinophils % Basophils % Absolute Granulocytes Basophils # PT INR APTT Sodium Potassium Chloride Carbon Dioxide Anion Gap BUN Creatinine Estimated GFR Glucose Lactic Acid Calcium Total Bilirubin AST ALT Alkaline Phosphatase Serum Total Protein Albumin Urinalys Dipstick Clnc Urine Color Urine Appearance Urine pH Ur Specific [place] POC Urine Protein Conf Urine Ketones Urine Nitrite Urine Bilirubin Urine Urobilinogen Urine Leukocytes Urine WBC (Auto) Urine RBC (Auto) U Epithel Cells (Auto) Urine Bacteria (Auto) Urine RBC Urine Glucose Influenza Type A Ag Influenza Type B Ag RSV (PCR) SARS-CoV-2 (PCR) Slides for Path Review ABO Group A Rh Factor POSITIVE Antibody Screen NEGATIVE Crossmatch COMPATIBLE COMPATIBLE 05/19/21 05/19/21 05/19/21 14:24 13:56 13:54 WBC RBC Hgb Hct MCV MCH MCHC RDW Plt Count MPV Gran % Eos # (Auto) Absolute Lymphs (auto) Absolute Monos (auto) Lymphocytes % Monocytes % Eosinophils % Basophils % Absolute Granulocytes Basophils # PT INR APTT Sodium Potassium Chloride Carbon Dioxide Anion Gap BUN Creatinine Estimated GFR Glucose Lactic Acid 1.9 Calcium Total Bilirubin AST ALT Alkaline Phosphatase Serum Total Protein Albumin Urinalys Dipstick Clnc MAIN LAB Urine Color YELLOW Urine Appearance CLEAR Urine pH 7.0 Ur Specific [place] 1.025 POC Urine Protein Conf NEGATIVE Urine Ketones NEGATIVE Urine Nitrite NEGATIVE Urine Bilirubin NEGATIVE Urine Urobilinogen 0.2 Urine Leukocytes NEGATIVE Urine WBC (Auto) NONE Urine RBC (Auto) NONE U Epithel Cells (Auto) NONE Urine Bacteria (Auto) NONE Urine RBC NEGATIVE Urine Glucose NEGATIVE Influenza Type A Ag NEGATIVE Influenza Type B Ag NEGATIVE RSV (PCR) NEGATIVE SARS-CoV-2 (PCR) NEGATIVE Slides for Path Review ABO Group Rh Factor Antibody Screen Crossmatch 05/19/21 05/19/21 05/19/21 13:50 13:50 13:50 WBC 8.9 RBC 2.88 L Hgb 6.8 L* Hct 25.1 L MCV 87.2 MCH 23.6 L MCHC 27.1 L RDW 17.9 H Plt Count 500 H MPV 10.7 Gran % 85.7 H Eos # (Auto) 0.08 Absolute Lymphs (auto) 0.76 L Absolute Monos (auto) 0.37 Lymphocytes % 8.6 L Monocytes % 4.2 Eosinophils % 0.9 Basophils % 0.6 Absolute Granulocytes 7.59 H Basophils # 0.05 PT 11.3 INR 0.96 APTT 27.9 Sodium 140 Potassium 3.8 Chloride 101 Carbon Dioxide 34 H Anion Gap 8.3 BUN 5 L Creatinine 0.61 Estimated GFR > 60.0 Glucose 142 H Lactic Acid Calcium 8.9 Total Bilirubin 0.40 AST 30 ALT 15 Alkaline Phosphatase 52 Serum Total Protein 6.0 L Albumin 3.4 L Urinalys Dipstick Clnc Urine Color Urine Appearance Urine pH Ur Specific [place] POC Urine Protein Conf Urine Ketones Urine Nitrite Urine Bilirubin Urine Urobilinogen Urine Leukocytes Urine WBC (Auto) Urine RBC (Auto) U Epithel Cells (Auto) Urine Bacteria (Auto) Urine RBC Urine Glucose Influenza Type A Ag Influenza Type B Ag RSV (PCR) SARS-CoV-2 (PCR) Slides for Path Review YES ABO Group Rh Factor Antibody Screen Crossmatch Orders (Last 24 hours) Category Date Time Status Up With Assistance ROUTINE Activity 05/19/21 16:19 Completed Up [Up With Assistance] TOLERATED Activity 05/19/21 17:01 Active Admitting Clerk STAT Care 05/19/21 13:55 Completed Code Status Order ROUTINE Care 05/19/21 16:17 Active Code Status Order ROUTINE Care 05/19/21 16:19 Completed Consent,Obtain ROUTINE Care 05/19/21 16:20 Active EKG-ER Only STAT Care 05/19/21 13:55 Completed IV Care Q6H Care 05/19/21 16:17 Active IV Care Q6H Care 05/19/21 16:19 Completed IV Insertion STAT Care 05/19/21 13:54 Completed Oxygen-ED Only Nasal Cannula 4 lpm Care 05/19/21 13:[address] in Observation ROUTINE Care 05/19/21 16:17 Active Telemetry q4h Care 05/19/21 17:01 Active Vital Signs Q4H Care 05/19/21 16:19 Completed Consistent Carbohydrate Diet 1800 Calorie Diet 05/19/21 Dinner Completed House Regular Diet Diet 05/19/21 Dinner Active Discharge Routine Discharge 05/20/21 08:44 Ordered CHEST 1 VIEW (PORTABLE) Stat Exams 05/19/21 13:55 Completed CBC W DIFF Stat Lab 05/19/21 13:50 Completed CMP Stat Lab 05/19/21 13:50 Completed HEMOGLOBIN AND HEMATOCRIT NOW Lab 05/20/21 01:00 Completed Lactic Acid Stat Lab 05/19/21 13:54 Completed PROTIME WITH INR Stat Lab 05/19/21 13:50 Completed PTT Stat Lab 05/19/21 13:50 Completed Albuterol 2.5 mg/3 ml Neb [Proventil 2.5 mg/3 ml Neb Med 05/19/21 23:40 Discontinued ] 2.5 mg IH .STK-MED ONE Albuterol 2.5 mg/3 ml Neb [Proventil 2.5 mg/3 ml Neb Med 05/19/21 23:35 Active ] 2.5 mg IH Q4H PRN PRN Albuterol Common Canister [Ventolin Common Canister* Med 05/19/21 17:17 Active ] 2 puff IH QID PRN PRN Albuterol/Ipratropium 3ml Neb* [DUONEB 0.5-3 MG/3 ml Med 05/19/21 19:00 Active Neb] 3 ml IH QIDRT Calcium Carbonate 750 mg [Tums EX 750 MG] Med 05/19/21 17:16 Active 750 mg PO Q4HPRN PRN Clonazepam [Klonopin] Med 05/19/21 23:15 Discontinued 2 mg .ROUTE .STK-MED ONE Clonazepam [Klonopin] Med 05/19/21 22:00 Active 2 mg PO BID Famotidine 20 mg [Pepcid 20 MG] Med 05/20/21 10:00 Active 20 mg PO DAILY Fluticasone Propionate [Flonase NASAL] Med 05/19/21 22:00 Active 0 gm NS BID Fluticasone Propionate [Flonase NASAL] Med 05/19/21 23:16 Discontinued 16 gm NS .STK-MED ONE Fluticasone/Salmeterol 115/ [Advair Hfa 115/21 Common Med 05/19/21 19:00 Active canister*] 2 puff IH BIDRT Furosemide 40 mg/4 ml [Lasix 40 MG/4 ML] Med 05/19/21 16:20 Discontinued 40 mg IV AFTER LAST UNIT PRN Furosemide 40 mg/4 ml [Lasix 40 MG/4 ML] Med 05/19/21 16:35 Active 40 mg IV AFTER LAST UNIT PRN Gabapentin 400 mg [Neurontin 400 MG] Med 05/20/21 10:00 Active 1,200 mg PO QAM Gabapentin 400 mg [Neurontin 400 MG] Med 05/19/21 23:16 Discontinued 2,400 mg .ROUTE .STK-MED ONE Gabapentin 400 mg [Neurontin 400 MG] Med 05/19/21 22:00 Active 2,400 mg PO HS Isosorbide Mononitrate 30 mg [Imdur 30 MG] Med 05/20/21 10:00 Active 30 mg PO DAILY KETOROLAC trometh 30 mg Inj [TORAdol 30 mg Injection Med 05/19/21 15:04 Discontinued ] 30 mg .ROUTE .STK-MED ONE KETOROLAC trometh 30 mg Inj [TORAdol 30 mg Injection Med 05/19/21 15:02 Discontinued ] 30 mg IV STAT ONE Levothyroxine Sodium 25 Mcg [Synthroid 25 Mcg] Med 05/20/21 10:00 Active 25 mcg PO DAILY Multivitamins,Therapeutic Tab* [Theragran Multivitamin* Med 05/20/21 10:00 Active ] 1 tab PO DAILY NaCl 0.9% 1000 ml [Sodium Chloride 0.9% 1000 ML] 1,000 Med 05/19/21 17:24 Discontinued ml .ROUTE UD NaCl 0.9% 1000 ml [Sodium Chloride 0.9% 1000 ML] 1,000 Med 05/19/21 17:30 Active ml IV 50 mls/hr Nitroglycerin 0.4 mg Tablet [Nitrostat 0.4 MG Tablet Med 05/19/21 17:17 Active ] 0.4 mg SL UD PRN Ondansetron HCl 4 mg/2 ml [Zofran 4 MG/2 ML VIAL] Med 05/19/21 15:04 Discontinued 4 mg .ROUTE .STK-MED ONE Ondansetron HCl 4 mg/2 ml [Zofran 4 MG/2 ML VIAL] Med 05/19/21 15:02 Discontinued 4 mg IV STAT ONE PANTOPRAZOLE 40 mg Tablet [Protonix 40MG Tablet] Med 05/20/21 10:00 Active 40 mg PO DAILY Prednisone 20 mg [Deltasone 20 mg] Med 05/19/21 23:16 Discontinued 20 mg .ROUTE .STK-MED ONE Prednisone 20 mg [Deltasone 20 mg] Med 05/19/21 22:00 Active 20 mg PO BID Quetiapine Fumarate 100 mg [Seroquel 100 MG] Med 05/20/21 10:00 Active 200 mg PO DAILY Quetiapine Fumarate 100 mg [Seroquel 100 MG] Med 05/19/21 23:15 Discontinued 300 mg .ROUTE .STK-MED ONE Quetiapine Fumarate 100 mg [Seroquel 100 MG] Med 05/19/21 22:00 Active 300 mg PO QHS Sertraline HCl 50 mg [Zoloft 50 mg Tablet] Med 05/20/21 10:00 Active 200 mg PO DAILY Theophylline Anhydrous [Theophylline ER 24Hr] Med 05/20/21 10:00 Active 300 mg PO DAILY Tizanidine HCl 4 mg [Zanaflex 4 MG] Med 05/19/21 23:15 Discontinued 4 mg .ROUTE .STK-MED ONE Tizanidine HCl 4 mg [Zanaflex 4 MG] Med 05/19/21 22:00 Active 4 mg PO TID Oxygen NASAL CANNULA 3 lpm RT 05/19/21 18:41 Active Pulse Oximetry .continuos RT 05/19/21 18:42 Active RT Screen per Nursing Assess TOLERATED RT 05/19/21 17:01 Completed Respiratory Therapy Assessment DAILY RT 05/19/21 18:41 Active Patient Care Notes (Last 24 hours) 05/20/21 09:12 Case Management Note by Anabela Brown PATIENT HAS [facility]. THEY WERE NOTIFIED PATIENT IS HERE AND WILL BE DCING HOME TODAY. THEY WILL NEED FAXED THE DC INSTRUCTIONS, DC MED LIST, DC SUMMARY ( IF AVAILABLE) TO [phone] Initialized on 05/20/21 09:12 - END OF NOTE - Vitals & Intake/Output Vital Signs: Vital Signs Temperature 98.1 F 05/20/21 06:51 Pulse Rate 84 05/20/21 10:38 Respiratory Rate 18 05/20/21 10:38 Blood Pressure 143/83 05/20/21 06:51 O2 Sat by Pulse Oximetry 97 05/20/21 10:38 Intake & Output: Intake & Output 05/17/21 05/18/21 05/19/21 05/20/21 11:59 11:59 11:59 11:59 Intake Total 1160 Output Total 1480 Balance -320 Weight 82.2 kg - Lab Result Diagrams: 05/20/21 01:00 05/19/21 13:50 Lab Results-Last 24 Hrs: Lab Results-Last 24 Hours 05/19/21 05/19/2122 Range/Units 13:50 13:50 13:50 WBC 8.9 (4.0-10.5) K/mm3 RBC 2.88 L (4.1-5.4) M/mm3 Hgb 6.8 L* (12.0-16.0) gm/dl Hct 25.1 L (35-47) % MCV 87.2 (78-100) fl MCH 23.6 L (26-32) pg MCHC 27.1 L (32-36) g/dl RDW 17.9 H (11.5-14.0) % Plt Count 500 H (150-450) K/mm3 MPV 10.7 (7.5-11.0) fl Gran % 85.7 H (36.0-66.0) % Eos # (Auto) 0.08 (0-0.5) Absolute Lymphs (auto) 0.76 L (1.0-4.6) Absolute Monos (auto) 0.37 (0.0-1.3) Lymphocytes % 8.6 L (24.0-44.0) % Monocytes % 4.2 (0.0-12.0) % Eosinophils % 0.9 (0.00-5.0) % Basophils % 0.6 (0.0-0.4) % Absolute Granulocytes 7.59 H (1.4-6.9) Basophils # 0.05 (0-0.4) PT 11.3 (9.4-12.5) SECONDS INR 0.96 (0.8-3.0) APTT 27.9 (25.1-36.5) SECONDS Sodium 140 (137-145) mmol/L Potassium 3.8 (3.5-5.1) mmol/L Chloride 101 (98-107) mmol/L Carbon Dioxide 34 H (22-30) mmol/L Anion Gap 8.3 (5-15) MEQ/L BUN 5 L (7-17) mg/dL Creatinine 0.61 (0.52-1.04) mg/dL Estimated GFR > 60.0 ML/MIN Glucose 142 H (74-106) mg/dL Lactic Acid (0.4-2.0) Calcium 8.9 (8.4-10.2) mg/dL Total Bilirubin 0.40 (0.2-1.3) mg/dL AST 30 (14-36) U/L ALT 15 (0-35) U/L Alkaline Phosphatase 52 (38-126) U/L Serum Total Protein 6.0 L (6.3-8.2) g/dL Albumin 3.4 L (3.5-5.0) g/dL Urinalys Dipstick Clnc Urine Color (YELLOW) Urine Appearance (CLEAR) Urine pH (5-6) Ur Specific [place] (1.005-1.025) POC Urine Protein Conf (Negative) Urine Ketones (NEGATIVE) Urine Nitrite (NEGATIVE) Urine Bilirubin (NEGATIVE) Urine Urobilinogen (0-1) mg/dL Urine Leukocytes (NEGATIVE) Urine WBC (Auto) (0-5) /HPF Urine RBC (Auto) (0-2) /HPF U Epithel Cells (Auto) (FEW) /HPF Urine Bacteria (Auto) (NEGATIVE) /HPF Urine RBC (0-5) Erasto/ul Urine Glucose (NEGATIVE) mg/dL Influenza Type A Ag (NEGATIVE) Influenza Type B Ag (NEGATIVE) RSV (PCR) (Negative) SARS-CoV-2 (PCR) (NEGATIVE) Slides for Path Review YES ABO Group Rh Factor Antibody Screen (NEGATIVE) Crossmatch (COMPATIBLE) 05/19/21 05/19/21 05/19/21 Range/Units 13:54 13:56 14:24 WBC (4.0-10.5) K/mm3 RBC (4.1-5.4) M/mm3 Hgb (12.0-16.0) gm/dl Hct (35-47) % MCV (78-100) fl MCH (26-32) pg MCHC (32-36) g/dl RDW (11.5-14.0) % Plt Count (150-450) K/mm3 MPV (7.5-11.0) fl Gran % (36.0-66.0) % Eos # (Auto) (0-0.5) Absolute Lymphs (auto) (1.0-4.6) Absolute Monos (auto) (0.0-1.3) Lymphocytes % (24.0-44.0) % Monocytes % (0.0-12.0) % Eosinophils % (0.00-5.0) % Basophils % (0.0-0.4) % Absolute Granulocytes (1.4-6.9) Basophils # (0-0.4) PT (9.4-12.5) SECONDS INR (0.8-3.0) APTT (25.1-36.5) SECONDS Sodium (137-145) mmol/L Potassium (3.5-5.1) mmol/L Chloride (98-107) mmol/L Carbon Dioxide (22-30) mmol/L Anion Gap (5-15) MEQ/L BUN (7-17) mg/dL Creatinine (0.52-1.04) mg/dL Estimated GFR ML/MIN Glucose (74-106) mg/dL Lactic Acid 1.9 (0.4-2.0) Calcium (8.4-10.2) mg/dL Total Bilirubin (0.2-1.3) mg/dL AST (14-36) U/L ALT (0-35) U/L Alkaline Phosphatase (38-126) U/L Serum Total Protein (6.3-8.2) g/dL Albumin (3.5-5.0) g/dL Urinalys Dipstick Clnc MAIN LAB Urine Color YELLOW (YELLOW) Urine Appearance CLEAR (CLEAR) Urine pH 7.0 (5-6) Ur Specific [place] 1.025 (1.005-1.025) POC Urine Protein Conf NEGATIVE (Negative) Urine Ketones NEGATIVE (NEGATIVE) Urine Nitrite NEGATIVE (NEGATIVE) Urine Bilirubin NEGATIVE (NEGATIVE) Urine Urobilinogen 0.2 (0-1) mg/dL Urine Leukocytes NEGATIVE (NEGATIVE) Urine WBC (Auto) NONE (0-5) /HPF Urine RBC (Auto) NONE (0-2) /HPF U Epithel Cells (Auto) NONE (FEW) /HPF Urine Bacteria (Auto) NONE (NEGATIVE) /HPF Urine RBC NEGATIVE (0-5) [place]/ul Urine Glucose NEGATIVE (NEGATIVE) mg/dL Influenza Type A Ag NEGATIVE (NEGATIVE) Influenza Type B Ag NEGATIVE (NEGATIVE) RSV (PCR) NEGATIVE (Negative) SARS-CoV-2 (PCR) NEGATIVE (NEGATIVE) Slides for Path Review ABO Group Rh Factor Antibody Screen (NEGATIVE) Crossmatch (COMPATIBLE) 05/19/21 05/19/21 05/20/21 Range/Units 14:38 Unknown 01:00 WBC (4.0-10.5) K/mm3 RBC (4.1-5.4) M/mm3 Hgb 8.5 L D (12.0-16.0) gm/dl Hct 29.8 L (35-47) % MCV (78-100) fl MCH (26-32) pg MCHC (32-36) g/dl RDW (11.5-14.0) % Plt Count (150-450) K/mm3 MPV (7.5-11.0) fl Gran % (36.0-66.0) % Eos # (Auto) (0-0.5) Absolute Lymphs (auto) (1.0-4.6) Absolute Monos (auto) (0.0-1.3) Lymphocytes % (24.0-44.0) % Monocytes % (0.0-12.0) % Eosinophils % (0.00-5.0) % Basophils % (0.0-0.4) % Absolute Granulocytes (1.4-6.9) Basophils # (0-0.4) PT (9.4-12.5) SECONDS INR (0.8-3.0) APTT (25.1-36.5) SECONDS Sodium (137-145) mmol/L Potassium (3.5-5.1) mmol/L Chloride (98-107) mmol/L Carbon Dioxide (22-30) mmol/L Anion Gap (5-15) MEQ/L BUN (7-17) mg/dL Creatinine (0.52-1.04) mg/dL Estimated GFR ML/MIN Glucose (74-106) mg/dL Lactic Acid (0.4-2.0) Calcium (8.4-10.2) mg/dL Total Bilirubin (0.2-1.3) mg/dL AST (14-36) U/L ALT (0-35) U/L Alkaline Phosphatase (38-126) U/L Serum Total Protein (6.3-8.2) g/dL Albumin (3.5-5.0) g/dL Urinalys Dipstick [facility] Urine Color (YELLOW) Urine Appearance (CLEAR) Urine pH (5-6) Ur Specific [place] (1.005-1.025) POC Urine Protein Conf (Negative) Urine Ketones (NEGATIVE) Urine Nitrite (NEGATIVE) Urine Bilirubin (NEGATIVE) Urine Urobilinogen (0-1) mg/dL Urine Leukocytes (NEGATIVE) Urine WBC (Auto) (0-5) /HPF Urine RBC (Auto) (0-2) /HPF U Epithel Cells (Auto) (FEW) /HPF Urine Bacteria (Auto) (NEGATIVE) /HPF Urine RBC (0-5) [place]/ul Urine Glucose (NEGATIVE) mg/dL Influenza Type A Ag (NEGATIVE) Influenza Type B Ag (NEGATIVE) RSV (PCR) (Negative) SARS-CoV-2 (PCR) (NEGATIVE) Slides for Path Review ABO Group A Rh Factor POSITIVE Antibody Screen NEGATIVE (NEGATIVE) Crossmatch COMPATIBLE COMPATIBLE (COMPATIBLE) - Radiology Exams Ordered Rad Exams-Entire Visit: Radiology Procedures Category Date Time Status CHEST 1 VIEW (PORTABLE) Stat Exams 05/19/21 13:55 Completed - Procedures and Test Procedures and Tests throughout Hospitalization: Therapy Orders & Screens 05/19/21 17:01 RT Screen per Nursing Assess TOLERATED Comment: Protocol Order Physician Instructions: Greater than 3 points order RT Admission Screen Reason For Exam: Triggered on Admission Diagnosis: anemia Diagnosis: anemia 05/19/21 18:41 Oxygen NASAL CANNULA 3 lpm Comment: Diagnosis: anemia Respiratory Therapy Assessment DAILY Comment: Diagnosis: anemia - Discharge Discharge Date: 05/20/21 Disposition: Home, Self-Care Condition: Stable Prescriptions: New Ferrous Sulfate 220 mg/5 ml [Ferrous Sulfate (IRON) 220 MG/5 ML] 5 ml PO BID 30 Days #300 ml Continue Clonazepam 0.5 mg [Klonopin 0.5 MG] 2 mg PO BID Fluticasone/Salmeterol Disc [Advair/Wixella 250-50 Diskus 14 Dose] 1 puff IH BID Famotidine 20 mg [Pepcid 20 MG] 20 mg PO DAILY Albuterol/Ipratropium Mdi [Combivent Inhaler] 1 puff IH QID Sertraline HCl 100 mg [Zoloft 100 MG] 200 mg PO DAILY Isosorbide Mononitrate 30 mg [Imdur 30 MG] 30 mg PO DAILY Tizanidine HCl 4 mg [Zanaflex 4 MG] 4 mg PO TID Quetiapine Fumarate [Seroquel] 200 mg PO DAILY Vits W-Ca,Fe,FA(<1Mg) [] 1 each PO DAILY Nitroglycerin 0.4 mg Tablet [Nitrostat 0.4 MG Tablet] 0.4 mg SL UD PRN PRN Reason: Chest Pain Albuterol Common Canister [Ventolin Common Canister] 2 puff IH QID PRN PRN PRN Reason: Shortness Of Breath Quetiapine Fumarate 300 mg PO QHS Gabapentin 1,200 mg PO QAM Gabapentin [Neurontin] 2,400 mg PO HS Theophylline Anhydrous 300 mg PO DAILY Prednisone 20 mg [Deltasone 20 mg] 20 mg PO BID Fluticasone Propionate [Flonase NASAL] 1 spray NS BID Albuterol/Ipratropium 3ml Neb* [DUONEB 0.5-3 MG/3 ml Neb] 3 ml IH QIDRT PANTOPRAZOLE 40 mg Tablet [Protonix 40MG Tablet] 40 mg PO DAILY tab Levothyroxine Sodium 25 Mcg [Synthroid 25 Mcg] 25 mcg PO DAILY tablet Instructions: Anemia of Chronic Disease Follow up with: WEN CAMERON MD [Primary Care Provider] - 05/27/21 11:00 am ([facility]) Forms: Discharge Instructions Short Stay Summary QM - VTE Measures VTE Pharmacological Contraindication: Medical Contraindication
== END 2021-05-20 11:03 | disposition home health service (06) ==
LOC: ED 13:11 → MED SURG 16:35
PROVIDERS: ADMIT General Practice; ATTEND General Practice
DX: D64.9 Anemia, unspecified (principal); I25.10 Atherosclerotic heart disease of native coronary artery without angina pectoris; E78.00 Pure hypercholesterolemia, unspecified; J44.9 Chronic obstructive pulmonary disease, unspecified; Z72.0 Tobacco use; Z79.899 Other long term (current) drug therapy; Z20.828 Contact with and (suspected) exposure to other viral communicable diseases
CPT/HCPCS: 0241U; 36000; 36415; 36430; 71045; 80053; 81001; 83605; 85014; 85018; 85025; 85610; 85730; 86850; 86900; 86901; 86922; 93005; 93041; 93268; 94640; 94762; 96374; 96375; 99285; G0378; P9016; J1885; J2405; J7609; A9270-GY

== ENCOUNTER 2021-07-15 14:13 | Observation (INO) | payer MEDICARE ==
[2021-07-15 15:49] LABS: INFLUENZA A NEGATIVE (NEGATIVE); INFLUENZA B NEGATIVE (NEGATIVE); RESPIRATORY SYNCTIAL VIRUS NEGATIVE (Negative); SARS-CoV-2 Xpert Express NEGATIVE (NEGATIVE)
[2021-07-15] MEDS ORDERED: DUONEB 0.5-3 MG/3 ml Neb IH SCH (16:00)
[2021-07-15] MEDS ORDERED: solu-MEDROL 125 MG, Sterile H2O 10 ml 2 ML IV ONE ×2 (16:01)
[2021-07-15] MEDS ORDERED: DUONEB 0.5-3 MG/3 ml Neb IH ONE (16:09)
[2021-07-15] MEDS ORDERED: VENTOLIN COMMON CANISTER IH PRN (16:15)
[2021-07-15] MEDS ORDERED: Nitrostat 0.4 MG Tablet SL PRN (16:15)
[2021-07-15] MEDS: Zanaflex 4 MG PO SCH ×2 (16:48→22:28)
[2021-07-15] MEDS ORDERED: [UNRECOGNIZED DRUG - OTHER] IH SCH (17:00)
[2021-07-15] MEDS ORDERED: Levofloxacin 500MG/100ML D5W 500 MG/100 ML BAG IV SCH (17:00)
[2021-07-15] MEDS ORDERED: ALBUTEROL IH SCH (17:00)
--- NOTE | 2021-07-15 17:41 | PCM.HP ---
History of Present Illness - Chief Complaint Chief Complaint: worsening shortness of breath for 3-4 days History of Present Illness: is a 65 year old female came to office with worsening shortness of breath for 3-4 days associated with chest congestion, cough with purulent cough - Review of Systems Constitutional: No Fever, No Chills Eyes: No Symptoms Ears, Nose, & Throat: No Symptoms Respiratory: Cough, Orthopnea, Short Of Breath, Wheezing Cardiac: No Chest Pain, No Edema, No Syncope Abdominal/Gastrointestinal: No Abdominal Pain, No Nausea, No Vomiting, No Diarrhea Genitourinary Symptoms: No Dysuria Musculoskeletal: No Back Pain, No Neck Pain Skin: No Rash Neurological: No Dizziness, No Focal Weakness, No Sensory Changes Psychological: No Symptoms Endocrine: No Symptoms Hematologic/Lymphatic: No Symptoms Immunological/Allergic: No Symptoms Medications & Allergies Home Medications: Home Medication List Albuterol/Ipratropium Mdi [Combivent Inhaler] 1 puff IH QID 12/29/12 [History Confirmed 07/15/21] Clonazepam 0.5 mg [Klonopin 0.5 MG] 2 mg PO BID 12/29/12 [History Confirmed 07/15/21] Famotidine 20 mg [Pepcid 20 MG] 20 mg PO HS 12/29/12 [History Confirmed 07/15/21] Fluticasone/Salmeterol Disc [Advair/Wixella 250-50 Diskus 14 Dose] 1 puff IH BID 12/29/12 [History Confirmed 07/15/21] Sertraline HCl 100 mg [Zoloft 100 MG] 200 mg PO DAILY 12/17/13 [History Confirmed 07/15/21] Isosorbide Mononitrate 30 mg [Imdur 30 MG] 30 mg PO DAILY 11/05/14 [History Confirmed 07/15/21] Tizanidine HCl 4 mg [Zanaflex 4 MG] 4 mg PO TID 01/16/15 [History Confirmed 07/15/21] Quetiapine Fumarate [Seroquel] 200 mg PO DAILY 10/17/15 [History Confirmed 07/15/21] Vits W-Ca,Fe,FA(<1Mg) [] 1 each PO DAILY 10/18/15 [History Confirmed 07/15/21] Nitroglycerin 0.4 mg Tablet [Nitrostat 0.4 MG Tablet] 0.4 mg SL UD PRN 11/15/15 [History Confirmed 07/15/21] Albuterol Common Canister [Ventolin Common Canister] 2 puff IH QID PRN PRN 07/08/19 [History Confirmed 07/15/21] Quetiapine Fumarate 300 mg PO QHS 07/08/19 [History Confirmed 07/15/21] Gabapentin 1,200 mg PO QAM 04/08/20 [History Confirmed 07/15/21] Gabapentin [Neurontin] 2,400 mg PO HS 04/08/20 [History Confirmed 07/15/21] Theophylline Anhydrous 300 mg PO DAILY 12/23/20 [History Confirmed 07/15/21] Fluticasone Propionate [Flonase NASAL] 1 spray NS BID 03/15/21 [History Confirmed 07/15/21] Prednisone 20 mg [Deltasone 20 mg] 10 mg PO DAILY 03/15/21 [History Confirmed 07/15/21] Levothyroxine Sodium 25 Mcg [Synthroid 25 Mcg] 25 mcg PO DAILY tablet 03/17/21 [Rx Confirmed 07/15/21] PANTOPRAZOLE 40 mg Tablet [Protonix 40MG Tablet] 40 mg PO DAILY tab 03/17/21 [Rx Confirmed 07/15/21] Ferrous Sulfate 220 mg/5 ml [Ferrous Sulfate (IRON) 220 MG/5 ML] 5 ml PO BID 30 Days #300 ml 05/20/21 [Rx Confirmed 07/15/21] Albuterol/Ipratropium 3ml Neb* [DUONEB 0.5-3 MG/3 ml Neb] 3 ml IH Q4H 07/15/21 [History Confirmed 07/15/21] Allergies/Adverse Reactions: Allergies Allergy/AdvReac Type Severity Reaction Status Date / Time morphine Allergy Severe Fainting Verified 05/19/21 13:41 oxycodone Allergy Shortness Verified 05/19/21 13:41 of Breath Penicillins Allergy Verified 05/19/21 13:41 oxymorphone AdvReac Severe Fainting Verified 05/19/21 13:41 [place] AdvReac Intermediate Headache Verified 05/19/21 13:41 bupropion HCl AdvReac Mild Hives Verified 05/19/21 13:41 [From Wellbutrin] - Past Medical History Past Medical History: Yes Neurological History: Migraines ENT History: No Pertinent History Cardiac History: Congestive Heart Failure, Coronary Artery Disease, High Cholesterol Respiratory History: Asthma, Bronchitis, COPD, Pneumonia Endocrine Medical History: Hypothyroidism Musculoskelatal History: Arthritis, Osteoporosis GI Medical History: GERD, Hernia, Polyps History: No Pertinent History Pyscho-Social History: Anxiety, Bipolar, Depression Reproductive Disorders: Fibroids Comment: 2 LEAKY VALVES. BORDERLINE PERSONALITY DISORDER, PTSD, manic depressive - Female History Are you now?: No - Past Surgical History Past Surgical History: Yes Neuro Surgical History: No Pertinent History Cardiac History: Cardiac Catheterization Respiratory Surgery: No Pertinent History GI Surgical History: Other Genitourinary Surgical Hx: No Pertinent History Musculskeletal Surgical Hx: Other Female Surgical History: Section Other Surgical History: ARM SURGERY-- left wrist laceration from a glass door, 2 c-sections, EGD with dilitation, colonoscopy, heart cath x 2 - Social History Smoking Status: Current every day smoker How long have you smoked: 40 years Exposure to second hand smoke: Yes Alcohol: None Drug Use: none Significant Family History: no pertinent family hx - Physical Exam Vital Signs: Vital Signs - 24 hr Temp Pulse Resp BP Pulse Ox 07/15/21 15:37 105 H 22 97 07/15/21 15:22 97.5 F 112 H 23 137/73 98 07/15/21 15:19 97.5 F 112 H 24 137/73 98 General Appearance: no apparent distress, alert Neurologic Exam: alert, oriented x 3, cooperative, normal mood/affect, nml cerebellar function, nml station & gait, sensation nml, No motor deficits Eye Exam: PERRL/EOMI, eyes nml inspection Ears, Nose, Throat Exam: normal ENT inspection, TMs normal, pharynx normal, moist mucous membranes Neck Exam: normal inspection, non-tender, supple, full range of motion Respiratory Exam: respiratory distress, diminished breath sounds, prolonged expirations, crackles/rales, rhonchi, wheezing Cardiovascular Exam: regular rate/rhythm, normal heart sounds, normal peripheral pulses Gastrointestinal/Abdomen Exam: soft, normal bowel sounds, No tenderness, No mass Back Exam: normal inspection, normal range of motion, No CVA tenderness, No vertebral tenderness Extremity Exam: normal inspection, normal range of motion, pelvis stable Skin Exam: normal color, warm, dry, No rash Lymphatic Exam: No adenopathy Results - Labs Lab/Micro Results: Lab Results-Last 24 Hours 07/15/21 Range/Units 15:03 Influenza Type A Ag NEGATIVE (NEGATIVE) Influenza Type B Ag NEGATIVE (NEGATIVE) RSV (PCR) NEGATIVE (Negative) SARS-CoV-2 (PCR) NEGATIVE (NEGATIVE) - Radiology Impressions Radiology Exams & Impressions: Radiology Procedures Category Date Time Status CHEST 2 VIEWS (PA AND LAT) Urgent Exams 07/15/21 Ordered - Other Procedures and Tests Respiratory Therapy 07/15/21 16:37 Oxygen NASAL CANNULA 4 lpm 07/16/21 07:00 Respiratory Therapy Assessment DAILY Assessment/Plan (1) Chronic bronchitis with acute exacerbation Current Visit: No Status: Acute Assessment & Plan: Chief Complaint Diagnosis COPD EXACERBATION Allergies Allergy/AdvReac Type Severity Reaction Status Date / Time morphine Allergy Severe Fainting Verified 05/19/21 13:41 oxycodone Allergy Shortness Verified 05/19/21 13:41 of Breath Penicillins Allergy Verified 05/19/21 13:41 oxymorphone AdvReac Severe Fainting Verified 05/19/21 13:41 [place] AdvReac Intermediate Headache Verified 05/19/21 13:41 bupropion HCl AdvReac Mild Hives Verified 05/19/21 13:41 [From Wellbutrin] Vital Signs (Last 24 hours) Temp Pulse Resp BP Pulse Ox 07/15/21 15:37 105 H 22 97 07/15/21 15:22 97.5 F 112 H 23 137/73 98 07/15/21 15:19 97.5 F 112 H 24 137/73 98 Home Medications Medication Instructions Recorded Confirmed Last Taken Type Albuterol/Ipratropium 3ml Neb* 3 ml IH Q4H 07/15/21 07/15/21 07/15/21 History [DUONEB 0.5-3 MG/3 ml Neb] Current Medications Generic Name Dose Route Start Last Admin Trade Name Freq PRN Reason Stop Dose Admin Albuterol Sulfate 2 puff 07/15/21 16:15 Albuterol Common Canister Inhaler 08/14/21 16:14 QID PRN PRN SHORTNESS OF BREATH Albuterol/Ipratropium 3 ml 07/15/21 19:00 Ipratropium/Albuterol Sulfate 3 Ml Ampul.Neb 08/14/21 18:59 Q4HRT [facility] Clonazepam 2 mg 07/15/21 22:00 Clonazepam 2 Mg Tablet PO 08/14/21 21:59 BID [facility] Methylprednisolone Sodium 0 mg 07/16/21 00:00 Succinate 80 mg/ Sterile Water IV 08/15/21 00:00 2 ml Q8HT [facility] Famotidine 20 mg 07/15/21 22:00 Famotidine 20 Mg Tablet PO 08/14/21 21:59 HS [facility] Ferrous Sulfate 325 mg 07/15/21 22:00 Ferrous Sulfate 325 Mg Tablet PO 08/14/21 21:59 BID [facility] Fluticasone Propionate 0 gm 07/15/21 22:00 Fluticasone Propionate 16 Gm Bottle Nasal [place] 08/14/21 21:59 BID [facility] Gabapentin 1,200 mg 07/16/21 10:00 Gabapentin 400 Mg Capsule PO 08/15/21 09:59 QAM [facility] Gabapentin 2,400 mg 07/15/21 22:00 Gabapentin 400 Mg Capsule PO 08/14/21 21:59 HS [facility] Levofloxacin/Dextrose 500 mg in 100 mls @ 100 mls/hr 07/15/21 17:00 07/15/21 16:52 Levofloxacin 500mg/100ml D5w IV 07/15/21 17:59 100 mls/hr DAILY [facility] Administration Levofloxacin/Dextrose 250 mg in 50 mls @ 50 mls/hr 07/16/21 10:00 Levaquin 250mg/50ml D5w IV 08/15/21 09:59 DAILY [facility] Isosorbide Mononitrate 30 mg 07/16/21 10:00 Isosorbide Mononitrate 30 Mg Tab PO 08/15/21 09:59 DAILY [facility] Levothyroxine Sodium 25 mcg 07/16/21 10:00 Levothyroxine Sodium 25 Mcg Tablet PO 08/15/21 09:59 DAILY [facility] Multivitamins Therapeutic 1 tab 07/16/21 10:00 Multivitamins,Therapeutic 1 Tab Tab PO 08/15/21 09:59 DAILY [facility] Nitroglycerin 0.4 mg 07/15/21 16:15 Nitroglycerin 0.4 Mg Tablet Bottle SL 08/14/21 16:14 UD PRN CHEST PAIN Pantoprazole Sodium 40 mg 07/16/21 10:00 Protonix (Pantoprazole) 40 Mg Tablet PO 08/15/21 09:59 DAILY [facility] Prednisone 10 mg 07/16/21 10:00 Prednisone 10 Mg Tablet PO 08/15/21 09:59 DAILY [facility] Quetiapine Fumarate 200 mg 07/16/21 10:00 Quetiapine Fumarate 100 Mg Tablet PO 08/15/21 09:59 DAILY [facility] Quetiapine Fumarate 300 mg 07/15/21 22:00 Quetiapine Fumarate 100 Mg Tablet PO 08/14/21 21:59 QHS [facility] Fluticasone/Salmeterol 2 puff 07/15/21 19:00 Fluticasone/Salmeterol 115/21 - 120 Puff Common Canister IH 08/14/21 18:59 BIDRT [facility] Sertraline HCl 200 mg 07/16/21 10:00 Sertraline Hcl 50 Mg Tab PO 08/15/21 09:59 DAILY [facility] Theophylline 300 mg 07/16/21 10:00 Theophylline Anhydrous 400 Mg Tab.Er.24hr Tablet PO 08/15/21 09:59 DAILY [facility] Tizanidine HCl 4 mg 07/15/21 17:00 07/15/21 16:48 Tizanidine Hcl 4 Mg Tablet PO 08/14/21 16:59 4 mg TID [facility] Administration Discontinued Medications Generic Name Dose Route Start Last Admin Trade Name Freq PRN Reason Stop Dose Admin Albuterol/Ipratropium Confirm 07/15/21 16:09 Ipratropium/Albuterol Sulfate 3 Ml Ampul.Neb Administered 07/15/21 16:10 Dose 3 ml IH .STK-MED ONE Albuterol/Ipratropium 3 ml 07/15/21 16:00 07/15/21 16:38 Ipratropium/Albuterol Sulfate 3 Ml Ampul.Neb IH 08/14/21 15:59 3 ml Q4HT [facility] Administration Methylprednisolone Sodium 0 mg 07/15/21 16:01 07/15/21 16:51 Succinate 125 mg/ Sterile IV 07/15/21 16:02 125 mg Water 2 ml STAT ONE Administration Intake & Output (Last 24 hours) 07/13/21 07/14/21 07/15/21 07/16/21 11:59 11:59 11:59 11:59 Weight 80.9 kg Laboratory Results (Last 24 hours) 07/15/21 15:03 Influenza Type A Ag NEGATIVE Influenza Type B Ag NEGATIVE RSV (PCR) NEGATIVE SARS-CoV-2 (PCR) NEGATIVE Orders (Last 24 hours) Category Date Time Status Place in Observation ROUTINE Care 07/15/21 14:44 Active Telemetry q6h Care 07/15/21 20:00 Active [place] Hand/Discharge Plan ROUTINE Cons 07/15/21 15:37 Active House Regular Diet Diet 07/15/21 Dinner Active CHEST 2 VIEWS (PA AND LAT) Urgent Exams 07/15/21 Ordered BNP [NT PRO BNP] Routine Lab 07/15/21 15:17 Ordered CBC W DIFF Routine Lab 07/15/21 15:17 Ordered CMP Routine Lab 07/15/21 15:17 Ordered COVID/FLU/RSV Panel Stat Lab 07/15/21 15:03 Completed D-DIMER QUANTITATIVE Routine Lab 07/15/21 15:17 Ordered Albuterol Common Canister [Ventolin Common Canister* Med 07/15/21 16:15 Active ] 2 puff IH QID PRN PRN Albuterol/Ipratropium 3ml Neb* [DUONEB 0.5-3 MG/3 ml Med 07/15/21 16:09 Discontinued Neb] 3 ml IH .STK-MED ONE Albuterol/Ipratropium 3ml Neb* [DUONEB 0.5-3 MG/3 ml Med 07/15/21 19:00 Active Neb] 3 ml IH Q4HRT Albuterol/Ipratropium 3ml Neb* [DUONEB 0.5-3 MG/3 ml Med 07/15/21 16:00 Discontinued Neb] 3 ml IH Q4HT Clonazepam [Klonopin] Med 07/15/21 22:00 Active 2 mg PO BID Famotidine 20 mg [Pepcid 20 MG] Med 07/15/21 22:00 Active 20 mg PO HS Ferrous Sulfate 325 mg [Feosol 325 mg] Med 07/15/21 22:00 Active 325 mg PO BID Fluticasone Propionate [Flonase NASAL] Med 07/15/21 22:00 Active 0 gm NS BID Fluticasone/Salmeterol 115 [Advair Hfa 115 Common Med 07/15/21 19:00 Active canister*] 2 puff IH BIDRT Gabapentin 400 mg [Neurontin 400 MG] Med 07/16/21 10:00 Active 1,200 mg PO QAM Gabapentin 400 mg [Neurontin 400 MG] Med 07/15/21 22:00 Active 2,400 mg PO HS Isosorbide Mononitrate 30 mg [Imdur 30 MG] Med 07/16/21 10:00 Active 30 mg PO DAILY Levofloxacin [Levaquin 250MG/50ML D5W] Med 07/16/21 10:00 Active 250 mg in 50 ml IV DAILY Levofloxacin [Levofloxacin 500MG/100ML D5W] Med 07/15/21 17:00 Active 500 mg in 100 ml IV DAILY Levothyroxine Sodium 25 Mcg [Synthroid 25 Mcg] Med 07/16/21 10:00 Active 25 mcg PO DAILY Methylprednis Sod Succ 125 mg* [solu-MEDROL] 125 mg Med 07/15/21 16:01 Discontinued Water For Injection,Sterile [Sterile H2O 10 ml] 2 ml IV STAT Methylprednis Sod Succ 125 mg* [solu-MEDROL] 80 mg Med 07/16/21 00:00 Active Water For Injection,Sterile [Sterile H2O 10 ml] 2 ml IV Q8HT Multivitamins,Therapeutic Tab* [Theragran Multivitamin* Med 07/16/21 10:00 Active ] 1 tab PO DAILY Nitroglycerin 0.4 mg Tablet [Nitrostat 0.4 MG Tablet Med 07/15/21 16:15 Active ] 0.4 mg SL UD PRN PANTOPRAZOLE 40 mg Tablet [Protonix 40MG Tablet] Med 07/16/21 10:00 Active 40 mg PO DAILY Prednisone 10 mg [Deltasone 10 mg] Med 07/16/21 10:00 Active 10 mg PO DAILY Quetiapine Fumarate 100 mg [Seroquel 100 MG] Med 07/16/21 10:00 Active 200 mg PO DAILY Quetiapine Fumarate 100 mg [Seroquel 100 MG] Med 07/15/21 22:00 Active 300 mg PO QHS Sertraline HCl 50 mg [Zoloft 50 mg Tablet] Med 07/16/21 10:00 Active 200 mg PO DAILY Theophylline Anhydrous [Theophylline ER 24Hr] Med 07/16/21 10:00 Active 300 mg PO DAILY Tizanidine HCl 4 mg [Zanaflex 4 MG] Med 07/15/21 17:00 Active 4 mg PO TID Oxygen NASAL CANNULA 4 lpm RT 07/15/21 16:37 Active Pulse Oximetry .continuos RT 07/15/21 16:36 Active RT Screen per Nursing Assess ONCE RT 07/15/21 15:37 Completed Respiratory Therapy Assessment DAILY RT 07/16/21 07:00 Active Smoking Cessation Education ONCE RT 07/15/21 15:[address] Screen per Nursing Assess ONCE ST 07/15/21 15:37 Active Code(s): J20.9 - ACUTE BRONCHITIS, UNSPECIFIED; J42 - UNSPECIFIED CHRONIC BRONCHITIS (2) Acute respiratory failure Current Visit: Yes Status: Acute Qualifiers: Respiratory failure complication: hypoxia and hypercapnia Code(s): J96.00 - ACUTE RESPIRATORY FAILURE, UNSP W HYPOXIA OR HYPERCAPNIA
[2021-07-15 18:17] LABS: ALBUMIN 3.6 g/dL (3.5-5.0); ALKALINE PHOSPHATASE 63 U/L (38-126); ANION GAP 6.6 MEQ/L (5-15); BLOOD UREA NITROGEN 8 mg/dL (7-17); CHLORIDE 100 mmol/L (98-107); Calcium 8.9 mg/dL (8.4-10.2); Carbon Dioxide 34 mmol/L (22-30); Creatinine 1 0.77 mg/dL (0.52-1.04); EST GLOMERULAR FILTRATION RATE > 60.0 ML/MIN; Glucose 118 mg/dL (74-106); Hematocrit 31.4 % (35-47); Hemoglobin 8.8 g/dL (12.0-16.0); Mean Corpuscular Hemoglobin 25.5 pg (26-32); Mean Platelet Volume 10.6 fL (7.5-11.0); NT PRO BNP 224 pg/mL (0-900); Platelet Count 453 x10^3/uL (150-450); Potassium 3.3 mmol/L (3.5-5.1); Red Blood Count 3.45 x10^6/uL (4.1-5.4); Red Cell Distribution Width 21.2 % (11.5-14.0); SGOT/AST 18 U/L (14-36); SGPT/ALT 15 U/L (0-35); SODIUM 138 mmol/L (137-145); Total Protein 6.6 g/dL (6.3-8.2)
[2021-07-15 18:20] LABS: White Blood Count 26.6 x10^3/uL (4.0-10.5)
[2021-07-15] MEDS: DUONEB 0.5-3 MG/3 ml Neb IH SCH ×2 (18:58→23:29)
[2021-07-15] MEDS: Advair Hfa 115/21 Common canister IH SCH (18:59)
[2021-07-15 20:24] LABS: BAND 5 % (0.0-2.0); Lymphocytes 2 % (24-44); Monocyte 4 % (0.0-12.0); Total Cells Counted 100
[2021-07-15 20:25] LABS: Platelet Estimate NORMAL (NORMAL)
[2021-07-15 20:26] LABS: Polychromasia 1+
[2021-07-15 20:27] LABS: ANISOCYTOSIS 2+; Hypochromia 2+
[2021-07-15] MEDS: Flonase NASAL NS SCH (21:16)
[2021-07-15] MEDS: Neurontin PO SCH (21:17)
[2021-07-15] MEDS: FEOSOL 325 MG PO SCH (21:18)
[2021-07-15] MEDS: Pepcid 20 MG PO SCH (21:19)
[2021-07-15] MEDS: Seroquel 100 MG PO SCH (21:19)
[2021-07-15] MEDS ORDERED: FLUTICASONE-SALMETEROL 250-50 IH SCH (22:00)
[2021-07-15] MEDS ORDERED: NON-FORMULARY ITEM (Gabapentin [Neurontin] 800 MG Tablet) PO SCH (22:00)
[2021-07-15] MEDS ORDERED: Ferrous Sulfate (IRON) 220 MG/5 ML PO SCH (22:00)
[2021-07-15] MEDS ORDERED: NON-FORMULARY ITEM (Quetiapine Fumarate [Quetiapine Fumarate] 300 MG Tablet) PO SCH (22:00)
[2021-07-15] MEDS: KLONOPIN PO SCH (22:27)
[2021-07-16] MEDS: solu-MEDROL 80 MG, Sterile H2O 10 ml 2 ML IV SCH ×10 (00:20→22:19)
[2021-07-16] MEDS: DUONEB 0.5-3 MG/3 ml Neb IH SCH ×6 (03:28→23:35)
[2021-07-16 05:11] LABS: Absolute Neutrophil Ct (ANC) 12.06 x10^3/uL (1.4-6.9); Basophil (Absolute #) 0.02 x10^3/uL (0-0.4); Eosinophil (Absolute #) 0 x10^3/uL (0-0.5); Hematocrit 31.4 % (35-47); Hemoglobin 8.5 g/dL (12.0-16.0); Lymphocyte (Absolute #) 0.81 x10^3/uL (1.0-4.6); Mean Cell Volume 92.4 fL (78-100); Mean Corpuscular Hgb Concent. 27.1 g/dL (32-36); Mean Platelet Volume 9.8 fL (7.5-11.0); Monocyte (Absolute #) 0.51 x10^3/uL (0.0-1.3); Monocytes % 3.8 % (0.0-12.0); Neutrophil % 89.6 % (36.0-66.0); Platelet Count 398 x10^3/uL (150-450); Red Cell Distribution Width 20.3 % (11.5-14.0); White Blood Count 13.5 x10^3/uL (4.0-10.5)
[2021-07-16] MEDS: Advair Hfa 115/21 Common canister IH SCH ×2 (07:23→19:49)
[2021-07-16 07:27] LABS: ALBUMIN 3.3 g/dL (3.5-5.0); ALKALINE PHOSPHATASE 53 U/L (38-126); ANION GAP 5.9 MEQ/L (5-15); BLOOD UREA NITROGEN 13 mg/dL (7-17); CHLORIDE 100 mmol/L (98-107); Carbon Dioxide 35 mmol/L (22-30); Creatinine 1 0.77 mg/dL (0.52-1.04); EST GLOMERULAR FILTRATION RATE > 60.0 ML/MIN; Glucose 110 mg/dL (74-106); Potassium 4.2 mmol/L (3.5-5.1); SGOT/AST 28 U/L (14-36); SGPT/ALT 14 U/L (0-35); SODIUM 137 mmol/L (137-145); Total Protein 6.2 g/dL (6.3-8.2)
[2021-07-16 08:17] LABS: Slide Review 1 YES
--- NOTE | 2021-07-16 08:46 | XRAY ---
Indication: COPD exacerbation. Comparison: May 19, 2021. PA/lateral chest now demonstrate minimal left base subsegmental atelectasis versus infiltrate. Remaining lungs hyperinflated and clear. Heart not enlarged again with hiatal hernia. Bony thorax intact again with mild osteopenia and degenerative changes. Comment: Preliminary interpretation made by C. No critical discrepancy.
[2021-07-16] MEDS: Neurontin PO SCH ×2 (09:05→22:19)
[2021-07-16] MEDS: FEOSOL 325 MG PO SCH ×2 (09:06→22:18)
[2021-07-16] MEDS: Imdur 30 MG PO SCH (09:06)
[2021-07-16] MEDS: ZOLOFT 50 MG TABLET PO SCH (09:06)
[2021-07-16] MEDS: Seroquel 100 MG PO SCH ×2 (09:06→22:18)
[2021-07-16] MEDS: SYNTHROID 25 MCG PO SCH (09:10)
[2021-07-16] MEDS: Protonix 40MG Tablet PO SCH (09:10)
[2021-07-16] MEDS: Zanaflex 4 MG PO SCH ×3 (09:10→22:19)
[2021-07-16] MEDS: KLONOPIN PO SCH ×2 (09:10→22:18)
[2021-07-16] MEDS: THERAGRAN MULTIVITAMIN PO SCH (09:10)
[2021-07-16] MEDS: THEOPHYLLINE ER 24HR PO SCH (09:11)
[2021-07-16] MEDS: DELTASONE 10 MG PO SCH (09:11)
[2021-07-16] MEDS: Levaquin 250MG/50ML D5W 250 MG/50 ML BAG IV SCH (09:12)
[2021-07-16] MEDS: Flonase NASAL NS SCH ×2 (09:12→22:20)
[2021-07-16] MEDS ORDERED: NON-FORMULARY ITEM (Sertraline Hcl 100 Mg [Zoloft 100 Mg] 100 MG Tab) PO SCH (10:00)
[2021-07-16] MEDS ORDERED: NON-FORMULARY ITEM (Prenatal Vits W-Ca,Fe,Fa(<1mg) [Prenatal] 1 EACH Tablet) PO SCH (10:00)
[2021-07-16] MEDS ORDERED: THEOPHYLLINE ANHYDROUS 300 MG PO SCH (10:00)
[2021-07-16] MEDS: Pepcid 20 MG PO SCH (22:17)
[2021-07-17] MEDS: DUONEB 0.5-3 MG/3 ml Neb IH SCH ×3 (03:43→11:53)
[2021-07-17 04:43] LABS: Absolute Neutrophil Ct (ANC) 13.66 x10^3/uL (1.4-6.9); Basophil (Absolute #) 0.01 x10^3/uL (0-0.4); Eosinophil (Absolute #) 0 x10^3/uL (0-0.5); Hematocrit 30.8 % (35-47); Hemoglobin 8.5 g/dL (12.0-16.0); Lymphocyte (Absolute #) 0.63 x10^3/uL (1.0-4.6); Lymphocytes % 4.2 % (24.0-44.0); Mean Cell Volume 91.7 fL (78-100); Mean Corpuscular Hemoglobin 25.3 pg (26-32); Mean Corpuscular Hgb Concent. 27.6 g/dL (32-36); Mean Platelet Volume 10.2 fL (7.5-11.0); Monocyte (Absolute #) 0.36 x10^3/uL (0.0-1.3); Monocytes % 2.4 % (0.0-12.0); Neutrophil % 92.1 % (36.0-66.0); Platelet Count 418 x10^3/uL (150-450); Red Blood Count 3.36 x10^6/uL (4.1-5.4); Red Cell Distribution Width 20.1 % (11.5-14.0); White Blood Count 14.8 x10^3/uL (4.0-10.5)
[2021-07-17 05:05] LABS: ALBUMIN 3.7 g/dL (3.5-5.0); ALKALINE PHOSPHATASE 55 U/L (38-126); ANION GAP 8.2 MEQ/L (5-15); BLOOD UREA NITROGEN 19 mg/dL (7-17); CHLORIDE 102 mmol/L (98-107); Calcium 9.5 mg/dL (8.4-10.2); Carbon Dioxide 33 mmol/L (22-30); Creatinine 1 0.75 mg/dL (0.52-1.04); EST GLOMERULAR FILTRATION RATE > 60.0 ML/MIN; Glucose 137 mg/dL (74-106); Potassium 4.5 mmol/L (3.5-5.1); SGOT/AST 17 U/L (14-36); SGPT/ALT 16 U/L (0-35); SODIUM 139 mmol/L (137-145); Total Protein 6.7 g/dL (6.3-8.2)
[2021-07-17 05:28] LABS: Slide Review 1 YES
[2021-07-17] MEDS: solu-MEDROL 80 MG, Sterile H2O 10 ml 2 ML IV SCH ×2 (05:30)
[2021-07-17] MEDS: Advair Hfa 115/21 Common canister IH SCH (07:30)
--- NOTE | 2021-07-17 07:55 | PCM.NOTE ---
Date and Time: 07/16/21 0754 Subjective Assessment: doing better - Review of Systems Constitutional: No Fever, No Chills Eyes: No Symptoms Ears, Nose, & Throat: No Symptoms Respiratory: Cough, Orthopnea, Short Of Breath Cardiac: No Chest Pain, No Edema, No Syncope Abdominal/Gastrointestinal: No Abdominal Pain, No Nausea, No Vomiting, No Diarrhea Genitourinary Symptoms: No Dysuria Musculoskeletal: No Back Pain, No Neck Pain Skin: No Rash Neurological: No Dizziness, No Focal Weakness, No Sensory Changes Psychological: No Symptoms Endocrine: No Symptoms Hematologic/Lymphatic: No Symptoms Immunological/Allergic: No Symptoms Objective Exam General Appearance: mild distress, alert Neurologic Exam: alert, oriented x 3, cooperative, normal mood/affect, nml cerebellar function, sensation nml, No motor deficits Skin Exam: normal color, warm, dry Eye Exam: PERRL, EOMI, eyes nml inspection Ears, Nose, Throat Exam: normal ENT inspection, pharynx normal, moist mucous membranes Neck Exam: normal inspection, non-tender, supple, full range of motion Respiratory Exam: crackles/rales, rhonchi, wheezing, No respiratory distress Cardiovascular Exam: regular rate/rhythm, normal heart sounds Gastrointestinal/Abdomen Exam: soft, No tenderness, No mass Extremity Exam: normal inspection, normal range of motion Back Exam: normal inspection, normal range of motion, No CVA tenderness, No vertebral tenderness Pelvic Exam: deferred Rectal Exam: deferred OBJECTIVE DATA Vital Signs: Vital Signs - 24 hr Temp Pulse Resp BP BP Pulse Ox 07/17/21 06:42 98.0 F 93 H 18 180/88 99 07/17/21 04:00 97.5 F 96 H 24 172/76 96 07/17/21 03:44 96 H 24 96 07/17/21 00:00 97.7 F 113 H 28 H 133/69 96 07/16/21 23:35 113 H 28 H 96 07/16/21 19:49 106 H 24 98 07/16/21 19:46 98.4 F 106 H 22 148/76 97 07/16/21 16:00 98.0 F 55 L 16 148/94 92 L 07/16/21 14:45 94 H 20 94 L 07/16/21 12:00 97.9 F 91 H 16 123/56 94 L 07/16/21 11:31 84 20 99 Pain Assessment - Last Documented Pain Intensity 0 Intake and Output: Intake & Output 07/14/21 07/15/21 07/16/21 07/17/21 11:59 11:59 11:59 11:59 Intake Total 1380 1260 Output Total 800 2100 Balance 580 -840 Weight 80.9 kg Lab Results: Lab Results-Last 24 Hours 07/16/21 07/17/21 07/17/21 Range/Units 04:43 04:15 04:15 WBC 14.8 H (4.0-10.5) x10^3/uL RBC 3.36 L (4.1-5.4) x10^6/uL Hgb 8.5 L (12.0-16.0) g/dL Hct 30.8 L (35-47) % MCV 91.7 (78-100) fL MCH 25.3 L (26-32) pg MCHC 27.6 L (32-36) g/dL RDW 20.1 H (11.5-14.0) % Plt Count 418 (150-450) x10^3/uL MPV 10.2 (7.5-11.0) fL Gran % 92.1 H (36.0-66.0) % Immature Gran % (Auto) 1.2 H (0.00-0.4) % Nucleat RBC Rel Count 0.0 (0.00-0.1) % Eos # (Auto) 0 (0-0.5) x10^3/uL Immature Gran # (Auto) 0.18 H (0.00-0.03) x10^3u/L Absolute Lymphs (auto) 0.63 L (1.0-4.6) x10^3/uL Absolute Monos (auto) 0.36 (0.0-1.3) x10^3/uL Absolute Nucleated RBC 0.00 (0.00-0.01) x10^3u/L Lymphocytes % 4.2 L (24.0-44.0) % Monocytes % 2.4 (0.0-12.0) % Eosinophils % 0.0 (0.00-5.0) % Basophils % 0.1 (0.0-0.4) % Absolute Granulocytes 13.66 H (1.4-6.9) x10^3/uL Basophils # 0.01 (0-0.4) x10^3/uL Sodium 139 (137-145) mmol/L Potassium 4.5 (3.5-5.1) mmol/L Chloride 102 (98-107) mmol/L Carbon Dioxide 33 H (22-30) mmol/L Anion Gap 8.2 (5-15) MEQ/L BUN 19 H (7-17) mg/dL Creatinine 0.75 (0.52-1.04) mg/dL Estimated GFR > 60.0 ML/MIN Glucose 137 H (74-106) mg/dL Calcium 9.5 (8.4-10.2) mg/dL Total Bilirubin 0.30 (0.2-1.3) mg/dL AST 17 (14-36) U/L ALT 16 (0-35) U/L Alkaline Phosphatase 55 (38-126) U/L Serum Total Protein 6.7 (6.3-8.2) g/dL Albumin 3.7 (3.5-5.0) g/dL Slides for Path Review YES YES Radiology Exams: Radiology Procedures Category Date Time Status CHEST 2 VIEWS (PA AND LAT) Urgent Exams 07/15/21 07:22 Completed Multi-Disciplinary Progress Notes: Multi-Disciplinary Progress Notes 07/16/21 10:02 Case Management Note by Anabela Brown PATIENT REQUESTED HELP AFFORDING [employer]PENDS. REFERRAL SENT VIA INTERNET TO [facility] AND ALSO TO [facility] VIA EMAIL Initialized on 07/16/21 10:02 - END OF NOTE Assessment/Plan (1) Chronic bronchitis with acute exacerbation Current Visit: Yes Status: Acute Assessment & Plan: Chief Complaint Diagnosis worsening shortness of breath for 3-4 days Allergies Allergy/AdvReac Type Severity Reaction Status Date / Time morphine Allergy Severe Fainting Verified 05/19/21 13:41 oxycodone Allergy Shortness Verified 05/19/21 13:41 of Breath Penicillins Allergy Verified 05/19/21 13:41 oxymorphone AdvReac Severe Fainting Verified 05/19/21 13:41 [place] AdvReac Intermediate Headache Verified 05/19/21 13:41 bupropion HCl AdvReac Mild Hives Verified 05/19/21 13:41 [From Wellbutrin] Vital Signs (Last 24 hours) Temp Pulse Resp BP BP Pulse Ox 07/17/21 06:42 98.0 F 93 H 18 180/88 99 07/17/21 04:00 97.5 F 96 H 24 172/76 96 07/17/21 03:44 96 H 24 96 07/17/21 00:00 97.7 F 113 H 28 H 133/69 96 07/16/21 23:35 113 H 28 H 96 07/16/21 19:49 106 H 24 98 07/16/21 19:46 98.4 F 106 H 22 148/76 97 07/16/21 16:00 98.0 F 55 L 16 148/94 92 L 07/16/21 14:45 94 H 20 94 L 07/16/21 12:00 97.9 F 91 H 16 123/56 94 L 07/16/21 11:31 84 20 99 Home Medications Medication Instructions Recorded Confirmed Last Taken Type Albuterol/Ipratropium 3ml Neb* 3 ml IH Q4H 07/15/21 07/15/21 07/15/21 History [DUONEB 0.5-3 MG/3 ml Neb] Current Medications Generic Name Dose Route Start Last Admin Trade Name Freq PRN Reason Stop Dose Admin Albuterol Sulfate 2 puff 07/15/21 16:15 Albuterol Common Canister Inhaler IH 08/14/21 16:14 QID PRN PRN SHORTNESS OF BREATH Albuterol/Ipratropium 3 ml 07/15/21 19:00 07/17/21 03:43 Ipratropium/Albuterol Sulfate 3 Ml Ampul.Neb IH 08/14/21 18:59 3 ml Q4HRT VALERY Administration Clonazepam 2 mg 07/15/21 22:00 07/16/21 22:18 Clonazepam 2 Mg Tablet PO 08/14/21 21:59 2 mg BID VALERY Administration Methylprednisolone Sodium 0 mg 07/16/21 08:00 07/17/21 05:30 Succinate 80 mg/ Sterile Water IV 08/15/21 07:59 80 mg 2 ml Q8HT VALERY Administration Famotidine 20 mg 07/15/21 22:00 07/16/21 22:17 Famotidine 20 Mg Tablet PO 08/14/21 21:59 20 mg HS VALERY Administration Ferrous Sulfate 325 mg 07/15/21 22:00 07/16/21 22:18 Ferrous Sulfate 325 Mg Tablet PO 08/14/21 21:59 325 mg BID VALERY Administration Fluticasone Propionate 0 gm 07/15/21 22:00 07/16/21 22:20 Fluticasone Propionate 16 Gm Bottle Nasal Galien NS 08/14/21 21:59 16 gm BID VALERY Administration Gabapentin 1,200 mg 07/16/21 10:00 07/16/21 09:05 Gabapentin 400 Mg Capsule PO 08/15/21 09:59 1,200 mg QAM VALERY Administration Gabapentin 2,400 mg 07/15/21 22:00 07/16/21 22:19 Gabapentin 400 Mg Capsule PO 08/14/21 21:59 2,400 mg HS VALERY Administration Levofloxacin/Dextrose 250 mg in 50 mls @ 50 mls/hr 07/16/21 10:00 07/16/21 09:12 Levaquin 250mg/50ml D5w IV 08/15/21 09:59 50 mls/hr DAILY VALERY Administration Isosorbide Mononitrate 30 mg 07/16/21 10:00 07/16/21 09:06 Isosorbide Mononitrate 30 Mg Tab PO 08/15/21 09:59 30 mg DAILY VALERY Administration Levothyroxine Sodium 25 mcg 07/16/21 10:00 07/16/21 09:10 Levothyroxine Sodium 25 Mcg Tablet PO 08/15/21 09:59 25 mcg DAILY VALERY Administration Multivitamins Therapeutic 1 tab 07/16/21 10:00 07/16/21 09:10 Multivitamins,Therapeutic 1 Tab Tab PO 08/15/21 09:59 1 tab DAILY VALERY Administration Nitroglycerin 0.4 mg 07/15/21 16:15 Nitroglycerin 0.4 Mg Tablet Bottle SL 08/14/21 16:14 UD PRN CHEST PAIN Pantoprazole Sodium 40 mg 07/16/21 10:00 07/16/21 09:10 Protonix (Pantoprazole) 40 Mg Tablet PO 08/15/21 09:59 40 mg DAILY VALERY Administration Prednisone 10 mg 07/16/21 10:00 07/16/21 09:11 Prednisone 10 Mg Tablet PO 08/15/21 09:59 10 mg DAILY VALERY Administration Quetiapine Fumarate 200 mg 07/16/21 10:00 07/16/21 09:06 Quetiapine Fumarate 100 Mg Tablet PO 08/15/21 09:59 200 mg DAILY VALERY Administration Quetiapine Fumarate 300 mg 07/15/21 22:00 07/16/21 22:18 Quetiapine Fumarate 100 Mg Tablet PO 08/14/21 21:59 300 mg QHS VALERY Administration Fluticasone/Salmeterol 2 puff 07/15/21 19:00 07/16/21 19:49 Fluticasone/Salmeterol 115/21 - 120 Puff Common Canister 08/14/21 18:59 2 puff BIDRT VALERY Administration Sertraline HCl 200 mg 07/16/21 10:00 07/16/21 09:06 Sertraline Hcl 50 Mg Tab PO 08/15/21 09:59 200 mg DAILY VALERY Administration Theophylline 300 mg 07/16/21 10:00 07/16/21 09:11 Theophylline Anhydrous 400 Mg Tab.Er.24hr Tablet PO 08/15/21 09:59 300 mg DAILY VALERY Administration Tizanidine HCl 4 mg 07/15/21 17:00 07/16/21 22:19 Tizanidine Hcl 4 Mg Tablet PO 08/14/21 16:59 4 mg TID VALERY Administration Discontinued Medications Generic Name Dose Route Start Last Admin Trade Name Freq PRN Reason Stop Dose Admin Albuterol/Ipratropium Confirm 07/15/21 16:09 Ipratropium/Albuterol Sulfate 3 Ml Ampul.Neb Administered 07/15/21 16:10 Dose 3 ml IH .STK-MED ONE Albuterol/Ipratropium 3 ml 07/15/21 16:00 07/15/21 16:38 Ipratropium/Albuterol Sulfate 3 Ml Ampul.Neb 08/14/21 15:59 3 ml Q4HT VALERY Administration Methylprednisolone Sodium 0 mg 07/15/21 16:01 07/15/21 16:51 Succinate 125 mg/ Sterile IV 07/15/21 16:02 125 mg Water 2 ml STAT ONE Administration Methylprednisolone Sodium 0 mg 07/16/21 00:00 07/16/21 06:06 Succinate 80 mg/ Sterile Water IV 08/15/21 00:00 Not Given 2 ml Q8HT VALERY Levofloxacin/Dextrose 500 mg in 100 mls @ 100 mls/hr 07/15/21 17:00 07/15/21 16:52 Levofloxacin 500mg/100ml D5w IV 07/15/21 17:59 100 mls/hr DAILY VALERY Administration Intake & Output (Last 24 hours) 07/14/21 07/15/21 07/16/21 07/17/21 11:59 11:59 11:59 11:59 Intake Total 1380 1260 Output Total 800 2100 Balance 580 -840 Weight 80.9 kg Laboratory Results (Last 24 hours) 07/17/21 07/17/21 07/16/21 04:15 04:15 04:43 WBC 14.8 H RBC 3.36 L Hgb 8.5 L Hct 30.8 L MCV 91.7 MCH 25.3 L MCHC 27.6 L RDW 20.1 H Plt Count 418 MPV 10.2 Gran % 92.1 H Immature Gran % (Auto) 1.2 H Nucleat RBC Rel Count 0.0 Eos # (Auto) 0 Immature Gran # (Auto) 0.18 H Absolute Lymphs (auto) 0.63 L Absolute Monos (auto) 0.36 Absolute Nucleated RBC 0.00 Lymphocytes % 4.2 L Monocytes % 2.4 Eosinophils % 0.0 Basophils % 0.1 Absolute Granulocytes 13.66 H Basophils # 0.01 Sodium 139 Potassium 4.5 Chloride 102 Carbon Dioxide 33 H Anion Gap 8.2 BUN 19 H Creatinine 0.75 Estimated GFR > 60.0 Glucose 137 H Calcium 9.5 Total Bilirubin 0.30 AST 17 ALT 16 Alkaline Phosphatase 55 Serum Total Protein 6.7 Albumin 3.7 Slides for Path Review YES YES Orders (Last 24 hours) Category Date Time Status CBC W DIFF AM.LAB Lab 07/17/21 04:15 Completed CMP AM.LAB Lab 07/17/21 04:15 Completed Gabapentin [Neurontin ] Med 07/16/21 10:00 Active 1,200 mg PO QAM Isosorbide Mononitrate 30 mg [Imdur 30 MG] Med 07/16/21 10:00 Active 30 mg PO DAILY Levofloxacin [Levaquin 250MG/50ML D5W] Med 07/16/21 10:00 Active 250 mg in 50 ml IV DAILY Levothyroxine Sodium 25 Mcg [Synthroid 25 Mcg] Med 07/16/21 10:00 Active 25 mcg PO DAILY Methylprednis Sod Succ 125 mg* [solu-MEDROL] 80 mg Med 07/16/21 08:00 Active Water For Injection,Sterile [Sterile H2O 10 ml] 2 ml IV Q8HT Multivitamins,Therapeutic Tab* [Theragran Multivitamin* Med 07/16/21 10:00 Active ] 1 tab PO DAILY PANTOPRAZOLE 40 mg Tablet [Protonix 40MG Tablet] Med 07/16/21 10:00 Active 40 mg PO DAILY Prednisone 10 mg [Deltasone 10 mg] Med 07/16/21 10:00 Active 10 mg PO DAILY Quetiapine Fumarate 100 mg [Seroquel 100 MG] Med 07/16/21 10:00 Active 200 mg PO DAILY Sertraline HCl 50 mg [Zoloft 50 mg Tablet] Med 07/16/21 10:00 Active 200 mg PO DAILY Theophylline Anhydrous [Theophylline ER 24Hr] Med 07/16/21 10:00 Active 300 mg PO DAILY Respiratory Therapy Assessment DAILY RT 07/16/21 07:00 Active Patient Care Notes (Last 24 hours) 07/16/21 12:30 (created 07/16/21 15:46) Nursing Note by April Wagner Rounded with Dr. Garrison. no new orders. Initialized on 07/16/21 15:46 - END OF NOTE 07/16/21 10:02 Case Management Note by Anabela Brown PATIENT REQUESTED HELP AFFORDING [employer] DEPENDS. REFERRAL SENT VIA [facility]NET TO [facility] AND [facility] TO [facility] Initialized on 07/16/21 10:02 - END OF NOTE 07/16/21 08:00 (created 07/16/21 15:47) Nursing Note by April Wagner Spoke with Dr. Garrison on phone and updated on pt status. Initialized on 07/16/21 15:47 - END OF NOTE Code(s): J20.9 - ACUTE BRONCHITIS, UNSPECIFIED; J42 - UNSPECIFIED CHRONIC BRONCHITIS (2) Acute respiratory failure Current Visit: Yes Status: Acute Qualifiers: Respiratory failure complication: hypoxia and hypercapnia Code(s): J96.00 - ACUTE RESPIRATORY FAILURE, UNSP W HYPOXIA OR HYPERCAPNIA
[2021-07-17] MEDS: Levaquin 250MG/50ML D5W 250 MG/50 ML BAG IV SCH (09:27)
[2021-07-17] MEDS: THERAGRAN MULTIVITAMIN PO SCH (09:28)
[2021-07-17] MEDS: Neurontin PO SCH (09:28)
[2021-07-17] MEDS: Imdur 30 MG PO SCH (09:28)
[2021-07-17] MEDS: Seroquel 100 MG PO SCH (09:28)
[2021-07-17] MEDS: ZOLOFT 50 MG TABLET PO SCH (09:28)
[2021-07-17] MEDS: KLONOPIN PO SCH (09:28)
[2021-07-17] MEDS: Protonix 40MG Tablet PO SCH (09:28)
[2021-07-17] MEDS: DELTASONE 10 MG PO SCH (09:29)
[2021-07-17] MEDS: Flonase NASAL NS SCH (09:29)
[2021-07-17] MEDS: SYNTHROID 25 MCG PO SCH (09:29)
[2021-07-17] MEDS: Zanaflex 4 MG PO SCH (09:29)
[2021-07-17] MEDS: FEOSOL 325 MG PO SCH (09:29)
[2021-07-17] MEDS: THEOPHYLLINE ER 24HR PO SCH (09:30)
[2021-07-17 11:45] VITALS: BP 135/81
[2021-07-17 12:02] VITALS: PULSE 88; O2SAT 95
--- NOTE | 2021-07-17 13:11 | PCM.DS ---
Discharge Summary Date of Admission: 07/15/21 14:43 Admitting Physician: WEN CAMERON Primary Care Provider: WEN CAMERON Allergies Allergies morphine Allergy (Severe, Verified 05/19/21 13:41) Fainting oxycodone Allergy (Verified 05/19/21 13:41) Shortness of Breath Penicillins Allergy (Verified 05/19/21 13:41) oxymorphone Adverse Reaction (Severe, Verified 05/19/21 13:41) Fainting [place] Adverse Reaction (Intermediate, Verified 05/19/21 13:41) Headache bupropion HCl [From Wellbutrin] Adverse Reaction (Mild, Verified 05/19/21 13:41) [facility] Summary - Hospital Course Hospital Course: Chief Complaint Diagnosis worsening shortness of breath for 3-4 days Allergies Allergy/AdvReac Type Severity Reaction Status Date / Time morphine Allergy Severe Fainting Verified 05/19/21 13:41 oxycodone Allergy Shortness Verified 05/19/21 13:41 of Breath Penicillins Allergy Verified 05/19/21 13:41 oxymorphone AdvReac Severe Fainting Verified 05/19/21 13:41 [place] AdvReac Intermediate Headache Verified 05/19/21 13:41 bupropion HCl AdvReac Mild Hives Verified 05/19/21 13:41 [From Wellbutrin] Vital Signs (Last 24 hours) Temp Pulse Resp BP BP Pulse Ox 07/17/21 12:00 88 24 95 07/17/21 11:45 97.3 F 105 H 17 135/81 94 L 07/17/21 07:30 84 18 95 07/17/21 06:42 98.0 F 93 H 18 180/88 99 07/17/21 04:00 97.5 F 96 H 24 172/76 96 07/17/21 03:44 96 H 24 96 07/17/21 00:00 97.7 F 113 H 28 H 133/69 96 07/16/21 23:35 113 H 28 H 96 07/16/21 19:49 106 H 24 98 07/16/21 19:46 98.4 F 106 H 22 148/76 97 07/16/21 16:00 98.0 F 55 L 16 148/94 92 L 07/16/21 14:45 94 H 20 94 L Home Medications Medication Instructions Recorded Confirmed Last Taken Type Albuterol/Ipratropium 3ml Neb* 3 ml IH Q4H 07/15/21 07/15/21 07/15/21 History [DUONEB 0.5-3 MG/3 ml Neb] Levofloxacin [Levofloxacin 250 mg PO DAILY #7 tab 07/17/21 Unknown Rx 250MG Tablet] Current Medications Generic Name Dose Route Start Last Admin Trade Name Freq PRN Reason Stop Dose Admin Albuterol Sulfate 2 puff 07/15/21 16:15 Albuterol Common Canister Inhaler IH 08/14/21 16:14 QID PRN PRN SHORTNESS OF BREATH Albuterol/Ipratropium 3 ml 07/15/21 19:00 07/17/21 11:53 Ipratropium/Albuterol Sulfate 3 Ml Ampul.Neb IH 08/14/21 18:59 3 ml Q4HRT VALERY Administration Clonazepam 2 mg 07/15/21 22:00 07/17/21 09:28 Clonazepam 2 Mg Tablet PO 08/14/21 21:59 2 mg BID VALERY Administration Methylprednisolone Sodium 0 mg 07/16/21 08:00 07/17/21 05:30 Succinate 80 mg/ Sterile Water IV 08/15/21 07:59 80 mg 2 ml Q8HT VALERY Administration Famotidine 20 mg 07/15/21 22:00 07/16/21 22:17 Famotidine 20 Mg Tablet PO 08/14/21 21:59 20 mg HS VALERY Administration Ferrous Sulfate 325 mg 07/15/21 22:00 07/17/21 09:29 Ferrous Sulfate 325 Mg Tablet PO 08/14/21 21:59 325 mg BID VALERY Administration Fluticasone Propionate 0 gm 07/15/21 22:00 07/17/21 09:29 Fluticasone Propionate 16 Gm Bottle Nasal [place] NS 08/14/21 21:59 16 gm BID VALERY Administration Gabapentin 1,200 mg 07/16/21 10:00 07/17/21 09:28 Gabapentin 400 Mg Capsule PO 08/15/21 09:59 1,200 mg QAM VALERY Administration Gabapentin 2,400 mg 07/15/21 22:00 07/16/21 22:19 Gabapentin 400 Mg Capsule PO 08/14/21 21:59 2,400 mg HS VALERY Administration Levofloxacin/Dextrose 250 mg in 50 mls @ 50 mls/hr 07/16/21 10:00 07/17/21 09:27 Levaquin 250mg/50ml D5w IV 08/15/21 09:59 50 mls/hr DAILY VALERY Administration Isosorbide Mononitrate 30 mg 07/16/21 10:00 07/17/21 09:28 Isosorbide Mononitrate 30 Mg Tab PO 08/15/21 09:59 30 mg DAILY VALERY Administration Levothyroxine Sodium 25 mcg 07/16/21 10:00 07/17/21 09:29 Levothyroxine Sodium 25 Mcg Tablet PO 08/15/21 09:59 25 mcg DAILY VALERY Administration Multivitamins Therapeutic 1 tab 07/16/21 10:00 07/17/21 09:28 Multivitamins,Therapeutic 1 Tab Tab PO 08/15/21 09:59 1 tab DAILY VALERY Administration Nitroglycerin 0.4 mg 07/15/21 16:15 Nitroglycerin 0.4 Mg Tablet Bottle SL 08/14/21 16:14 UD PRN CHEST PAIN Pantoprazole Sodium 40 mg 07/16/21 10:00 07/17/21 09:28 Protonix (Pantoprazole) 40 Mg Tablet PO 08/15/21 09:59 40 mg DAILY VALERY Administration Prednisone 10 mg 07/16/21 10:00 07/17/21 09:29 Prednisone 10 Mg Tablet PO 08/15/21 09:59 10 mg DAILY VALERY Administration Quetiapine Fumarate 200 mg 07/16/21 10:00 07/17/21 09:28 Quetiapine Fumarate 100 Mg Tablet PO 08/15/21 09:59 200 mg DAILY VALERY Administration Quetiapine Fumarate 300 mg 07/15/21 22:00 07/16/21 22:18 Quetiapine Fumarate 100 Mg Tablet PO 08/14/21 21:59 300 mg QHS VALEYR Administration Fluticasone/Salmeterol 2 puff 07/15/21 19:00 07/17/21 07:30 Fluticasone/Salmeterol 115/21 - 120 Puff Common Canister IH 08/14/21 18:59 2 puff BIDRT VALERY Administration Sertraline HCl 200 mg 07/16/21 10:00 07/17/21 09:28 Sertraline Hcl 50 Mg Tab PO 08/15/21 09:59 200 mg DAILY VALERY Administration Theophylline 300 mg 07/16/21 10:00 07/17/21 09:30 Theophylline Anhydrous 400 Mg Tab.Er.24hr Tablet PO 08/15/21 09:59 300 mg DAILY VALERY Administration Tizanidine HCl 4 mg 07/15/21 17:00 07/17/21 09:29 Tizanidine Hcl 4 Mg Tablet PO 08/14/21 16:59 4 mg TID VALERY Administration Discontinued Medications Generic Name Dose Route Start Last Admin Trade Name Yordan PRN Reason Stop Dose Admin Albuterol/Ipratropium Confirm 07/15/21 16:09 Ipratropium/Albuterol Sulfate 3 Ml Ampul.Neb Administered 07/15/21 16:10 Dose 3 ml IH .STK-MED ONE Albuterol/Ipratropium 3 ml 07/15/21 16:00 07/15/21 16:38 Ipratropium/Albuterol Sulfate 3 Ml Ampul.Neb IH 08/14/21 15:59 3 ml Q4HT VALERY Administration Methylprednisolone Sodium 0 mg 07/15/21 16:01 07/15/21 16:51 Succinate 125 mg/ Sterile IV 07/15/21 16:02 125 mg Water 2 ml STAT ONE Administration Methylprednisolone Sodium 0 mg 07/16/21 00:00 07/16/21 06:06 Succinate 80 mg/ Sterile Water IV 08/15/21 00:00 Not Given 2 ml Q8HT VALERY Levofloxacin/Dextrose 500 mg in 100 mls @ 100 mls/hr 07/15/21 17:00 07/15/21 16:52 Levofloxacin 500mg/100ml D5w IV 07/15/21 17:59 100 mls/hr DAILY VALERY Administration Intake & Output (Last 24 hours) 07/15/21 07/16/21 07/17/21 07/18/21 11:59 11:59 11:59 11:59 Intake Total 1380 1620 Output Total 800 2100 Balance 580 -480 Weight 80.9 kg Laboratory Results (Last 24 hours) 07/17/21 07/17/21 04:15 04:15 WBC 14.8 H RBC 3.36 L Hgb 8.5 L Hct 30.8 L MCV 91.7 MCH 25.3 L MCHC 27.6 L RDW 20.1 H Plt Count 418 MPV 10.2 Gran % 92.1 H Immature Gran % (Auto) 1.2 H Nucleat RBC Rel Count 0.0 Eos # (Auto) 0 Immature Gran # (Auto) 0.18 H Absolute Lymphs (auto) 0.63 L Absolute Monos (auto) 0.36 Absolute Nucleated RBC 0.00 Lymphocytes % 4.2 L Monocytes % 2.4 Eosinophils % 0.0 Basophils % 0.1 Absolute Granulocytes 13.66 H Basophils # 0.01 Sodium 139 Potassium 4.5 Chloride 102 Carbon Dioxide 33 H Anion Gap 8.2 BUN 19 H Creatinine 0.75 Estimated GFR > 60.0 Glucose 137 H Calcium 9.5 Total Bilirubin 0.30 AST 17 ALT 16 Alkaline Phosphatase 55 Serum Total Protein 6.7 Albumin 3.7 Slides for Path Review YES Orders (Last 24 hours) Category Date Time Status Discharge Planning,Consult Routine Discharge 07/17/21 Active CBC W DIFF AM.LAB Lab 07/17/21 04:15 Completed CMP AM.LAB Lab 07/17/21 04:15 Completed Patient Care Notes (Last 24 hours) 07/17/21 10:47 Case Management Note by Anabela Brown REFERRAL WAS FAXED TO [facility]. THEY WILL NEED NOTIFIED AT TIME OF DC AT [phone]. THEY WILL NEED FAXED THE DC INSTRUCTIONS, DC MED LIST, AND DC S UMMARY (IF AVAILABLE) TO [phone] Initialized on 07/17/21 10:47 - END OF NOTE 07/17/21 10:45 Case Management Note by Anabela Brown Addendum entered by Anabela Brown 07/17/21 10:49: PATIENT DENIED ANY OTHER NEEDS AT TIME OF DC. SHE PLANS TO RETURN HOME WITH HER SON TO ASSIST HER NEEDED. SHE ALREADY HAS HOME OXYGEN AND IS CURRENTLY ON HER HOME SETTING Original Note: S/W PATIENT REGARDING DC NEEDS. PATIENT STILL OBSESSING OVER HOSPICE CARE BEING BROUGHT UP. PATIENT WAS REASSURED WE ONLY KATIE THIS UP AN OPTION. HOSPICE SERVICES ARE NOT BEING STARTED. SHE VERIFIED UNDERSTANDING BUT CONTINUES TO TALK ABOUT NOT WANTING THEM. PATIENT DOES HOWEVER WISH TO HAVE [facility] AGAIN BUT DOES NOT WANT SERVICES UNTIL AFTER . CALLED KATELYN AT [facility]- SHE WAS NOTIFIED OF THIS AND VERIFIED UNDERSTANDING. REFERRAL FAXED AT THIS TIME Initialized on 07/17/21 10:45 - END OF NOTE - Vitals & Intake/Output Vital Signs: Vital Signs Temperature 97.3 F 07/17/21 11:45 Pulse Rate 88 07/17/21 12:00 Respiratory Rate 24 07/17/21 12:00 Blood Pressure 135/81 07/17/21 11:45 O2 Sat by Pulse Oximetry 95 07/17/21 12:00 Intake & Output: Intake & Output 07/15/21 07/16/21 07/17/21 07/18/21 11:59 11:59 11:59 11:59 Intake Total 1380 1620 Output Total 800 2100 Balance 580 -480 Weight 80.9 kg - Lab Result Diagrams: 07/17/21 04:15 07/17/21 04:15 Lab Results-Last 24 Hrs: Lab Results-Last 24 Hours 07/17/21 07/17/21 Range/Units 04:15 04:15 WBC 14.8 H (4.0-10.5) x10^3/uL RBC 3.36 L (4.1-5.4) x10^6/uL Hgb 8.5 L (12.0-16.0) g/dL Hct 30.8 L (35-47) % MCV 91.7 (78-100) fL MCH 25.3 L (26-32) pg MCHC 27.6 L (32-36) g/dL RDW 20.1 H (11.5-14.0) % Plt Count 418 (150-450) x10^3/uL MPV 10.2 (7.5-11.0) fL Gran % 92.1 H (36.0-66.0) % Immature Gran % (Auto) 1.2 H (0.00-0.4) % Nucleat RBC Rel Count 0.0 (0.00-0.1) % Eos # (Auto) 0 (0-0.5) x10^3/uL Immature Gran # (Auto) 0.18 H (0.00-0.03) x10^3u/L Absolute Lymphs (auto) 0.63 L (1.0-4.6) x10^3/uL Absolute Monos (auto) 0.36 (0.0-1.3) x10^3/uL Absolute Nucleated RBC 0.00 (0.00-0.01) x10^3u/L Lymphocytes % 4.2 L (24.0-44.0) % Monocytes % 2.4 (0.0-12.0) % Eosinophils % 0.0 (0.00-5.0) % Basophils % 0.1 (0.0-0.4) % Absolute Granulocytes 13.66 H (1.4-6.9) x10^3/uL Basophils # 0.01 (0-0.4) x10^3/uL Sodium 139 (137-145) mmol/L Potassium 4.5 (3.5-5.1) mmol/L Chloride 102 (98-107) mmol/L Carbon Dioxide 33 H (22-30) mmol/L Anion Gap 8.2 (5-15) MEQ/L BUN 19 H (7-17) mg/dL Creatinine 0.75 (0.52-1.04) mg/dL Estimated GFR > 60.0 ML/MIN Glucose 137 H (74-106) mg/dL Calcium 9.5 (8.4-10.2) mg/dL Total Bilirubin 0.30 (0.2-1.3) mg/dL AST 17 (14-36) U/L ALT 16 (0-35) U/L Alkaline Phosphatase 55 (38-126) U/L Serum Total Protein 6.7 (6.3-8.2) g/dL Albumin 3.7 (3.5-5.0) g/dL Slides for Path Review YES - Procedures and Test Procedures and Tests throughout Hospitalization: Therapy Orders & Screens 07/15/21 15:37 RT Screen per Nursing Assess ONCE Comment: Protocol Order Physician Instructions: Greater than 3 points order RT Admission Screen Reason For Exam: Triggered on Admission Diagnosis: COPD EXACERBATION Diagnosis: COPD EXACERBATION Pneumonia: Yes Home O2: Yes Asthma: Yes CHF: Yes Home CPAP/BIPAP: No Home Nebs/MDI: Yes Total Points: 20 Smoking Cessation Education ONCE Comment: Diagnosis: COPD EXACERBATION Smoking Status: Current every day smoker How long have you smoked: 40 years Have you smoked in the past 12 months: Yes Approximately how many cigarettes per day: 10 per day Do you dip or chew tobacco: No If,Former Smoker,when did you quit: [address] Screen per Nursing Assess ONCE Comment: Protocol Order Physician Instructions: Greater than [address] Admission Screening Reason For Exam: Triggered on Admission Diagnosis: COPD EXACERBATION CVA/Dyshpagia/Aphasia: No Cognitive Deficits: No Dehydration/Nutrition Deficit: No Reflux: Yes Oral-Motor Difficulties: No Pneumonia: Yes Mcfp Resident: No Total Points: 8 07/15/21 16:37 Oxygen NASAL CANNULA 4 lpm Comment: Diagnosis: COPD EXACERBATION 07/16/21 07:00 Respiratory Therapy Assessment DAILY Comment: Diagnosis: COPD EXACERBATION Discharge Exam General Appearance: no apparent distress, alert Neurologic Exam: alert, oriented x 3, cooperative, normal mood/affect, nml cerebellar function, sensation nml, No motor deficits Eye Exam: PERRL, EOMI, eyes nml inspection Ears, Nose, Throat Exam: normal ENT inspection, pharynx normal, moist mucous membranes Neck Exam: normal inspection, non-tender, supple, full range of motion Respiratory Exam: diminished breath sounds, No respiratory distress Cardiovascular Exam: regular rate/rhythm, normal heart sounds Gastrointestinal/Abdomen Exam: soft, No tenderness, No mass Pelvic Exam: deferred Rectal Exam: deferred Back Exam: normal inspection, normal range of motion, No CVA tenderness, No vertebral tenderness Extremity Exam: normal inspection, normal range of motion Skin Exam: normal color, warm, dry Final Diagnosis/Problem List - Final Discharge Diagnosis/Problem (1) Chronic bronchitis with acute exacerbation Current Visit: Yes Status: Resolved Priority: High Code(s): J20.9 - ACUTE BRONCHITIS, UNSPECIFIED; J42 - UNSPECIFIED CHRONIC BRONCHITIS (2) Acute respiratory failure Current Visit: Yes Status: Acute Code(s): J96.00 - ACUTE RESPIRATORY FAILURE, UNSP W HYPOXIA OR HYPERCAPNIA - Discharge Discharge Date: 07/17/21 Disposition: HOME HEALTH SERVICE Condition: Stable Prescriptions: New Levofloxacin [Levofloxacin 250MG Tablet] 250 mg PO DAILY #7 tab Continue Clonazepam 0.5 mg [Klonopin 0.5 MG] 2 mg PO BID Fluticasone/Salmeterol Disc [Advair/[place] 250-50 Diskus 14 Dose] 1 puff IH BID Famotidine 20 mg [Pepcid 20 MG] 20 mg PO HS Albuterol/Ipratropium Mdi [Combivent Inhaler] 1 puff IH QID Sertraline HCl 100 mg [Zoloft 100 MG] 200 mg PO DAILY Isosorbide Mononitrate 30 mg [Imdur 30 MG] 30 mg PO DAILY Tizanidine HCl 4 mg [Zanaflex 4 MG] 4 mg PO TID Quetiapine Fumarate [Seroquel] 200 mg PO DAILY Vits W-Ca,Fe,FA(<1Mg) [] 1 each PO DAILY Nitroglycerin 0.4 mg Tablet [Nitrostat 0.4 MG Tablet] 0.4 mg SL UD PRN PRN Reason: Chest Pain Albuterol Common Canister [Ventolin Common Canister] 2 puff IH QID PRN PRN PRN Reason: Shortness Of Breath Quetiapine Fumarate 300 mg PO QHS Gabapentin 1,200 mg PO QAM Gabapentin [Neurontin] 2,400 mg PO HS Theophylline Anhydrous 300 mg PO DAILY Prednisone 20 mg [Deltasone 20 mg] 10 mg PO DAILY Fluticasone Propionate [Flonase NASAL] 1 spray NS BID PANTOPRAZOLE 40 mg Tablet [Protonix 40MG Tablet] 40 mg PO DAILY tab Levothyroxine Sodium 25 Mcg [Synthroid 25 Mcg] 25 mcg PO DAILY tablet Ferrous Sulfate 220 mg/5 ml [Ferrous Sulfate (IRON) 220 MG/5 ML] 5 ml PO BID 30 Days #300 ml Albuterol/Ipratropium 3ml Neb* [DUONEB 0.5-3 MG/3 ml Neb] 3 ml IH Q4H Instructions: Chronic Obstructive Pulmonary Disease (COPD) (DC) Additional Instructions: REFERRAL WAS FAXED TO [facility]. THEY WILL CONTACT YOU TO START SERVICES AFTER REQUESTED Follow up with: WEN CAMERON MD [Primary Care Provider] - 07/25/21 1:30 pm ([facility]) Forms: Discharge Instructions
== END 2021-07-17 13:25 | disposition home health service (06) ==
LOC: MED SURG 14:43
PROVIDERS: ADMIT General Practice; ATTEND General Practice
DX: J20.9 Acute bronchitis, unspecified (principal); J96.00 Acute respiratory failure, unspecified whether with hypoxia or hypercapnia; I50.9 Heart failure, unspecified; I25.10 Atherosclerotic heart disease of native coronary artery without angina pectoris; E78.00 Pure hypercholesterolemia, unspecified; Z20.828 Contact with and (suspected) exposure to other viral communicable diseases; Z79.899 Other long term (current) drug therapy; Z72.0 Tobacco use
CPT/HCPCS: 0241U; 36415; 71046; 80053; 83880; 85025; 85379; 94640; 94762; 93268; G0378; J1956; J2930; A9270-GY

== ENCOUNTER 2021-10-22 19:31 | Observation (INO) | payer MEDICARE ==
[2021-10-22] MEDS ORDERED: solu-MEDROL 125 MG, Sterile H2O 10 ml 2 ML IV ONE ×2 (19:53)
[2021-10-22] MEDS ORDERED: VANCOMYCIN 1 GRAM/200 ML BAG 1 GM/200 ML PIGGYBACK IV ONE ×2 (19:53→20:03)
[2021-10-22] MEDS ORDERED: DUONEB 0.5-3 MG/3 ml Neb IH ONE ×2 (19:53→20:10)
[2021-10-22] MEDS ORDERED: Sterile H2O 10 ml IJ ONE (20:03)
[2021-10-22] MEDS ORDERED: solu-MEDROL ONE (20:03)
[2021-10-22 20:14] LABS: Hematocrit 28.7 % (35-47); Hemoglobin 8.2 g/dL (12.0-16.0); Mean Cell Volume 78.6 fL (78-100); Mean Corpuscular Hemoglobin 22.5 pg (26-32); Mean Corpuscular Hgb Concent. 28.6 g/dL (32-36); Mean Platelet Volume 10.6 fL (7.5-11.0); Platelet Count 488 x10^3/uL (150-450); Red Blood Count 3.65 x10^6/uL (4.1-5.4); Red Cell Distribution Width 18.8 % (11.5-14.0)
[2021-10-22 20:25] LABS: White Blood Count 38.6 x10^3/uL (4.0-10.5)
[2021-10-22 20:44] LABS: ALBUMIN 3.9 g/dL (3.5-5.0); ALKALINE PHOSPHATASE 88 U/L (38-126); ANION GAP 10.1 MEQ/L (5-15); BLOOD UREA NITROGEN 14 mg/dL (7-17); CHLORIDE 100 mmol/L (98-107); Calcium 9.4 mg/dL (8.4-10.2); Carbon Dioxide 32 mmol/L (22-30); Creatinine 1 0.83 mg/dL (0.52-1.04); EST GLOMERULAR FILTRATION RATE > 60.0 ML/MIN; Glucose 142 mg/dL (74-106); NT PRO BNP 217 pg/mL (0-900); Potassium 4.1 mmol/L (3.5-5.1); SGOT/AST 24 U/L (14-36); SGPT/ALT 17 U/L (0-35); SODIUM 138 mmol/L (137-145); Total Protein 6.5 g/dL (6.3-8.2)
[2021-10-22 21:07] LABS: Eosinophil 1 % (0.00-3.0); Lymphocytes 1 % (24-44); Monocyte 1 % (0.0-12.0); Total Cells Counted 100
[2021-10-22 21:08] LABS: ATYPICAL LYMPHS 4 %; BAND 0 % (0.0-2.0); Basophil 1 % (0.0-1.0); Platelet Estimate NORMAL (NORMAL)
[2021-10-22 21:09] LABS: Hypochromia 2+; Poikilocytosis 1+
[2021-10-22 21:10] LABS: Stomatocyte 1+
[2021-10-22 21:11] LABS: ANISOCYTOSIS 2+
[2021-10-22 21:15] LABS: Microcytosis 1+
--- NOTE | 2021-10-22 21:39 | ERPHSYRPT ---
- History of Present Illness Time Seen by Provider: 10/22/21 20:00 Source: patient Patient Subjective Stated Complaint: pt states "I have been having cough and fever today. I went and seen DR. Cameron for last or the before that and he gave me levaquin but I dont know what for." Triage Nursing Assessment: pt presents to ED with a wheelchair, pt uses a walker at home, pt c/o cough and stated fever at home, pt was seen at pcp a couple weeks ago and prescribed levaquin which she has finished, pt states "I think I have pneumonia." pt wears 3 L NC at all times for COPD Physician History: Patient is a 65-year-old female presents to emergency department for evaluation of shortness of breath x1 week. Patient states she has a history of COPD. Patient requires 3 L of nasal cannula 24 hours/day. Patient states she has been experiencing some shortness of breath. Patient followed up with her primary care provider approximately 2 weeks ago. Patient was started on Levaquin. Patient completed her course of Levaquin and still feels short of breath. Patient states she had subjective fevers at home. Patient does not have o bjective fevers here. Patient has been experiencing cough fever and shortness of breath. No chest pain. No nausea vomiting or diaphoresis. No rash. No diarrhea. Symptoms are constant. Symptoms are moderate in intensity. No specific worsening improving factors. Patient voices no other complaints or concerns at this time. Portions of this note were created with voice recognition technology. There may be grammatical, spelling, punctuation or sound alike errors Timing/Duration: week(s) (1 week) Activities at Onset: none Severity of Dyspnea-Max: moderate Severity of Dyspnea-Current: mild Modifying Factors: Improves With: activity Associated Symptoms: cough, fever, wheezing, No dizziness, No heart racing, No leg swelling, No muscle spasms hands Allergies/Adverse Reactions: morphine Allergy (Severe, Verified 10/22/21 19:40) Fainting oxycodone Allergy (Verified 10/22/21 19:40) Shortness of Breath Penicillins Allergy (Verified 10/22/21 19:40) oxymorphone Adverse Reaction (Severe, Verified 10/22/21 19:40) Fainting C[place]ut Adverse Reaction (Intermediate, Verified 10/22/21 19:40) Headache bupropion HCl [From Wellbutrin] Adverse Reaction (Mild, Verified 10/22/21 19:40) Hives Home Medications: Albuterol/Ipratropium Mdi [Combivent Inhaler] 1 puff IH QID 12/29/12 [Hi story] Clonazepam 0.5 mg [Klonopin 0.5 MG] 2 mg PO BID 12/29/12 [History] Famotidine 20 mg [Pepcid 20 MG] 20 mg PO HS 12/29/12 [History] Fluticasone/Salmeterol Disc [Advair/Wixella 250-50 Diskus 14 Dose] 1 puff IH BID 12/29/12 [History] Sertraline HCl 100 mg [Zoloft 100 MG] 200 mg PO DAILY 12/17/13 [History] Isosorbide Mononitrate 30 mg [Imdur 30 MG] 30 mg PO DAILY 11/05/14 [History] Tizanidine HCl 4 mg [Zanaflex 4 MG] 4 mg PO TID 01/16/15 [History] Quetiapine Fumarate [Seroquel] 200 mg PO DAILY 10/17/15 [History] Nitroglycerin 0.4 mg Tablet [Nitrostat 0.4 MG Tablet] 0.4 mg SL UD PRN 11/15/15 [History] Albuterol Common Canister [Ventolin Common Canister] 2 puff IH QID PRN PRN 07/08/19 [History] Quetiapine Fumarate 300 mg PO QHS 07/08/19 [History] Gabapentin 1,200 mg PO QAM 04/08/20 [History] Gabapentin [Neurontin] 2,400 mg PO HS 04/08/20 [History] Theophylline Anhydrous [Theophylline ER] 300 mg PO DAILY 12/23/20 [History] Fluticasone Propionate [Flonase NASAL] 1 spray NS BID 03/15/21 [History] Prednisone 20 mg [Deltasone 20 mg] 10 mg PO DAILY 03/15/21 [History] Albuterol/Ipratropium 3ml Neb* [DUONEB 0.5-3 MG/3 ml Neb] 3 ml IH Q4H 07/15/21 [History] Hx Tetanus, Diphtheria Vaccination/Date Given: Yes Hx Influenza Vaccination/Date Given: Yes Hx Pneumococcal Vaccination/Date Given: Yes Travel Risk - International Travel Have you traveled outside of the country in past 3 weeks: No - Coronavirus Screening Are you exhibiting any of the following symptoms?: Yes Symptoms: Fever, Cough: New Onset Close contact with a COVID-19 positive Pt in past 14-21 Days: No - Vaccine Status Have you recieved a Covid-19 vaccination: No - Vaccination Dates Comment: . - Review of Systems Constitutional: No Symptoms, No Fever, No Chills Eyes: No Symptoms Ears, Nose, & Throat: No Symptoms Respiratory: No Symptoms, No Cough, No Dyspnea Cardiac: No Symptoms, No Chest Pain, No Edema, No Syncope Abdominal/Gastrointestinal: No Symptoms, No Abdominal Pain, No Nausea, No Vomi ting, No Diarrhea Genitourinary Symptoms: No Symptoms, No Dysuria Musculoskeletal: No Symptoms, No Back Pain, No Neck Pain Skin: No Symptoms, No Rash Neurological: No Symptoms, No Dizziness, No Focal Weakness, No Sensory Changes Psychological: No Symptoms Endocrine: No Symptoms Hematologic/Lymphatic: No Symptoms Immunological/Allergic: No Symptoms All Other Systems: Reviewed and Negative - Past Medical History Pertinent Past Medical History: Yes Neurological History: Migraines ENT History: No Pertinent History Cardiac History: Congestive Heart Failure, Coronary Artery Disease, High Cholesterol Respiratory History: Asthma, Bronchitis, COPD, Pneumonia Endocrine Medical History: Hypothyroidism Musculoskeletal History: Arthritis, Osteoporosis GI Medical History: GERD, Hernia, Polyps History: No Pertinent History Psycho-Social History: Anxiety, Bipolar, Depression Female Reproductive Disorders: Fibroids Other Medical History: 2 LEAKY VALVES. BORDERLINE PERSONALITY DISORDER, PTSD, manic depressive - Past Surgical History Past Surgical History: Yes Neuro Surgical History: No Pertinent History Cardiac: Cardiac Catheterization Respiratory: No Pertinent History Gastrointestinal: Other Genitourinary: No Pertinent History Musculoskeletal: Other Female Surgical History: Section Other Surgical History: ARM SURGERY-- left wrist laceration from a glass door, 2 c-sections, EGD with dilitation, colonoscopy, heart cath x 2 - Social History Smoking Status: Current every day smoker How long have you smoked: 40 years Exposure to second hand smoke: Yes Alcohol Use: Socially Drug Use: none Patient Lives Alone: Yes Significant Family History: no pertinent family hx - Nursing Vital Signs Nursing Vital Signs: Initial Vital Signs Temperature 97.4 F 10/22/21 19:42 Pulse Rate 113 H 10/22/21 19:42 Respiratory Rate 18 10/22/21 19:42 Blood Pressure 146/65 10/22/21 19:42 O2 Sat by Pulse Oximetry 97 10/22/21 19:42 Pain Scale Pain Intensity 0 - Physical Exam General Appearance: no apparent distress, alert Eye Exam: PERRL/EOMI, eyes nml inspection, No scleral icterus, No pale conjunctivae Ears, Nose, Throat Exam: hearing grossly normal, normal ENT inspection, normal pharynx Neck Exam: normal inspection, non-tender, supple, full range of motion Respiratory Exam: respiratory distress, airway intact, wheezing Cardiovascular/Chest Exam: normal heart sounds, regular rate/rhythm, No murmur Abdominal/Gastrointestinal Exam: soft, normal bowel sounds, No tenderness, No distention, No mass Extremity Exam: non-tender, normal range of motion, normal inspection, no calf tenderness, no pedal edema Neurologic Exam: alert, oriented x 3, cooperative, supervisor plastic sheets II-XII nml as tested, sensation nml, No motor deficits Skin Exam: normal color, warm, No dry Lymphatic Exam: No adenopathy SpO2 Interpretation: normal SpO2: 98 O2 Delivery: Room Air - Course Nursing assessment & vital signs reviewed: Yes EKG Interpreted by Me: RATE (110), Sinus Tach, NORMAL AXIS, NORMAL INTERVALS - Radiology Exams Chest X-ray Interpretation: Interpreted by me (Bibasilar atelectasis. No infiltrate or consolidation. COPD changes. Normal cardiac silhouette. Osteopenia. Intact bony thorax) Ordered Tests: Active Orders 24 hr Category Date Time Status Office Support Assistant STAT Care 10/22/21 19:51 Active EKG-ER Only STAT Care 10/22/21 19:51 Active IV Insertion STAT Care 10/22/21 19:51 Active Pulse Oximetry (ED) STAT Care 10/22/21 19:51 Active CHEST 1 VIEW (PORTABLE) Stat Exams 10/22/21 19:51 Taken BLOOD CULTURE Stat Lab 10/22/21 20:12 Received CBC W DIFF Stat Lab 10/22/21 20:10 Completed CMP Stat Lab 10/22/21 20:10 Completed Lactic Acid Stat Lab 10/22/21 20:20 Completed Lactic Acid Stat Lab 10/22/21 22:25 Received Manual Differential NC Stat Lab 10/22/21 20:10 Completed NT PRO BNP Stat Lab 10/22/21 20:10 Completed TROPONIN Q4H Lab 10/22/21 20:10 Completed TROPONIN Q4H Lab 10/23/21 00:00 Ordered TROPONIN Q4H Lab 10/23/21 04:00 Ordered UA W/RFX CULTURE Stat Lab 10/22/21 Ordered Respiratory Therapy Assessment DAILY RT 10/22/21 20:27 Active Transfer Order Routine Transfer 10/22/21 Ordered Medication Summary Generic Name Dose Route Start Last Admin Trade Name Freq PRN Reason Stop Dose Admin Doxycycline Hyclate 100 mg/ 100 mls @ 100 mls/hr 10/22/21 22:00 10/22/21 22:03 Dextrose IV 11/21/21 21:59 100 mls/hr Q12HT VALERY Administration Discontinued Medications Generic Name Dose Route Start Last Admin Trade Name Freq PRN Reason Stop Dose Admin Albuterol/Ipratropium 3 ml 10/22/21 19:53 10/22/21 20:05 Ipratropium/Albuterol Sulfate 3 Ml Ampul.Neb IH 10/22/21 19:54 3 ml STAT ONE Administration Albuterol/Ipratropium Confirm 10/22/21 20:10 Ipratropium/Albuterol Sulfate 3 Ml Ampul.Neb Administered 10/22/21 20:11 Dose 3 ml IH .STK-MED ONE Methylprednisolone Sodium 0 mg 10/22/21 19:53 10/22/21 20:04 Succinate 125 mg/ Sterile IV 10/22/21 19:54 125 mg Water 2 ml STAT ONE Administration Doxycycline Hyclate Confirm 10/22/21 21:53 Doxycycline Hyclate 100 Mg/Vial Injection Administered 10/22/21 21:54 Dose 100 mg IV .STK-MED ONE Vancomycin HCl 1 gm in 200 mls @ 125 mls/hr 10/22/21 19:53 10/22/21 21:59 Vancomycin 1 Gram/200 Ml Bag IV 10/22/21 21:28 Infused STAT ONE Infusion Vancomycin HCl Confirm 10/22/21 20:03 Vancomycin 1 Gram/200 Ml Bag Administered 10/22/21 20:04 Dose 1 gm in 200 mls @ ud IV .STK-MED ONE Dextrose Confirm 10/22/21 21:54 D5w 100ml Mini Bag 100 Ml Administered 10/22/21 21:55 Dose 100 mls @ ud IV .STK-MED ONE Dextrose Confirm 10/22/21 21:57 D5w 100ml Mini Bag 100 Ml Administered 10/22/21 21:58 Dose 100 mls @ ud IV .STK-MED ONE Methylprednisolone Sodium Succinate Confirm 10/22/21 20:03 Methylprednis Sod Succ 125 Mg/2 Ml Vial Administered 10/22/21 20:04 Dose 125 mg .ROUTE .STK-MED ONE Sterile Water Confirm 10/22/21 20:03 Water For Injection,Sterile 10 Ml Vial Administered 10/22/21 20:04 Dose 10 ml IJ .STK-MED ONE Lab/Rad Data: Laboratory Result Diagrams 10/22/21 20:10 10/22/21 20:10 Laboratory Results 10/22/21 10/22/21 10/22/21 Range/Units 21:30 20:20 20:10 WBC (4.0-10.5) x10^3/uL RBC (4.1-5.4) x10^6/uL Hgb (12.0-16.0) g/dL Hct (35-47) % MCV (78-100) fL MCH (26-32) pg MCHC (32-36) g/dL RDW (11.5-14.0) % Plt Count (150-450) x10^3/uL MPV (7.5-11.0) fL Segmented Neutrophils (36.0-66.0) % Band Neutrophils (0.0-2.0) % Lymphocytes (Manual) (24-44) % Monocytes (Manual) (0.0-12.0) % Eosinophils (Manual) (0.00-3.0) % Basophils (Manual) (0.0-1.0) % Atypical Lymphocytes % Hypochromia Platelet Estimate (NORMAL) RBC Morphology Poikilocytosis Anisocytosis Microcytosis Stomatocytes Sodium (137-145) mmol/L Potassium (3.5-5.1) mmol/L Chloride (98-107) mmol/L Carbon Dioxide (22-30) mmol/L Anion Gap (5-15) MEQ/L BUN (7-17) mg/dL Creatinine (0.52-1.04) mg/dL Estimated GFR ML/MIN Glucose (74-106) mg/dL Lactic Acid 2.3 H (0.4-2.0) Calcium (8.4-10.2) mg/dL Total Bilirubin (0.2-1.3) mg/dL AST (14-36) U/L ALT (0-35) U/L Alkaline Phosphatase (38-126) U/L Troponin I < 0.012 (0.000-0.034) ng/mL NT-Pro-B Natriuret Pep (0-900) pg/mL Serum Total Protein (6.3-8.2) g/dL Albumin (3.5-5.0) g/dL Influenza Type A Ag NEGATIVE (NEGATIVE) Influenza Type B Ag NEGATIVE (NEGATIVE) RSV (PCR) NEGATIVE (Negative) SARS-CoV-2 (PCR) NEGATIVE (NEGATIVE) 10/22/21 10/22/21 Range/Units 20:10 20:10 WBC 38.6 H* (4.0-10.5) x10^3/uL RBC 3.65 L (4.1-5.4) x10^6/uL Hgb 8.2 L (12.0-16.0) g/dL Hct 28.7 L (35-47) % MCV 78.6 (78-100) fL MCH 22.5 L (26-32) pg MCHC 28.6 L (32-36) g/dL RDW 18.8 H (11.5-14.0) % Plt Count 488 H (150-450) x10^3/uL MPV 10.6 (7.5-11.0) fL Segmented Neutrophils 92 H (36.0-66.0) % Band Neutrophils 0 (0.0-2.0) % Lymphocytes (Manual) 1 L (24-44) % Monocytes (Manual) 1 (0.0-12.0) % Eosinophils (Manual) 1 (0.00-3.0) % Basophils (Manual) 1 (0.0-1.0) % Atypical Lymphocytes 4 % Hypochromia 2+ Platelet Estimate NORMAL (NORMAL) RBC Morphology ABNORMAL Poikilocytosis 1+ Anisocytosis 2+ Microcytosis 1+ Stomatocytes 1+ Sodium 138 (137-145) mmol/L Potassium 4.1 (3.5-5.1) mmol/L Chloride 100 (98-107) mmol/L Carbon Dioxide 32 H (22-30) mmol/L Anion Gap 10.1 (5-15) MEQ/L BUN 14 (7-17) mg/dL Creatinine 0.83 (0.52-1.04) mg/dL Estimated GFR > 60.0 ML/MIN Glucose 142 H (74-106) mg/dL Lactic Acid (0.4-2.0) Calcium 9.4 (8.4-10.2) mg/dL Total Bilirubin 0.30 (0.2-1.3) mg/dL AST 24 (14-36) U/L ALT 17 (0-35) U/L Alkaline Phosphatase 88 (38-126) U/L Troponin I (0.000-0.034) ng/mL NT-Pro-B Natriuret Pep 217 (0-900) pg/mL Serum Total Protein 6.5 (6.3-8.2) g/dL Albumin 3.9 (3.5-5.0) g/dL Influenza Type A Ag (NEGATIVE) Influenza Type B Ag (NEGATIVE) RSV (PCR) (Negative) SARS-CoV-2 (PCR) (NEGATIVE) - Progress Progress: improved Air Movement: fair Progress Note: Patient is 76-year-old female with history of COPD presents to our ED with progressive shortness of breath. Work-up reveals a COPD exacerbation. Patient has received breathing treatment steroids blood cultures and antibiotics. Patient feels much better at this time. Patient requires 3 L nasal cannula 24 hours/day. Patient has a leukocytosis which is likely reactive as patient is on steroids chronically. A component of this leukocytosis may be due to her COPD exacerbation. Plan of care discussed with patient. She agrees to admission [facility] for further evaluation and treatment. Case discussed with Dr. Cameron patient's primary care physician who accepts admissio n to observation. Portions of this note were created with voice recognition technology. There may be grammatical, spelling, punctuation or sound alike errors 10/22/21 22:32 Blood Culture(s) Obtained: Yes Antibiotics given: Yes Discussed with : Bandar Will see patient in: hospital (observation) Counseled pt/family regarding: lab results, diagnosis, rad results - Departure Departure Disposition: Observation Clinical Impression: COPD exacerbation, Leukocytosis, Thrombocytosis, Lactic acidosis due to diabetes mellitus, Shortness of breath Condition: Stable Critical Care Time: No Referrals: WEN CAMERON MD [Primary Care Provider] - Follow up/PCP as directed Instructions: Chronic Obstructive Pulmonary Disease
[2021-10-22] MEDS ORDERED: VIBRAMYCIN 100 MG IV ONE (21:53)
[2021-10-22] MEDS ORDERED: D5w 100ML Mini Bag 100 ML 100 ML IV ONE ×2 (21:54→21:57)
[2021-10-22] MEDS: VIBRAMYCIN 100 MG*** 100 MG in Dextrose 5%/Water IV Soln. 100ML PLUS BAG 100 ML IV SCH (22:03)
[2021-10-22 22:04] LABS: INFLUENZA A NEGATIVE (NEGATIVE); INFLUENZA B NEGATIVE (NEGATIVE); RESPIRATORY SYNCTIAL VIRUS NEGATIVE (Negative); SARS-CoV-2 Xpert Express NEGATIVE (NEGATIVE)
[2021-10-22] MEDS ORDERED: VANCOMYCIN 1 GRAM/200 ML BAG 1 GM/200 ML PIGGYBACK IV SCH (22:47)
[2021-10-22] MEDS ORDERED: PROVENTIL 2.5 MG/3 ML NEB IH SCH (23:00)
[2021-10-23] MEDS ORDERED: solu-MEDROL ONE ×2 (00:26→06:22)
[2021-10-23] MEDS ORDERED: Sterile H2O 10 ml IJ ONE (00:26)
[2021-10-23] MEDS ORDERED: TYLENOL EXTRA STRENGTH 500 MG PO PRN (00:39)
[2021-10-23] MEDS ORDERED: Neurontin ONE (01:14)
[2021-10-23] MEDS: solu-MEDROL 60 MG, Sterile H2O 10 ml 2 ML IV SCH ×4 (01:16→06:24)
[2021-10-23] MEDS: Pepcid 20 MG PO SCH ×3 (01:17→21:22)
[2021-10-23] MEDS: Flonase NASAL NS SCH ×3 (01:17→21:33)
[2021-10-23] MEDS: KLONOPIN PO SCH ×3 (01:17→21:20)
[2021-10-23] MEDS: NEURONTIN PO SCH ×2 (01:18→21:21)
[2021-10-23] MEDS: Zanaflex 4 MG PO SCH ×4 (01:19→21:22)
[2021-10-23] MEDS: Seroquel 100 MG PO SCH ×3 (01:19→21:20)
[2021-10-23] MEDS: DUONEB 0.5-3 MG/3 ml Neb IH SCH ×6 (02:40→22:29)
[2021-10-23 04:25] LABS: Hematocrit 24.7 % (35-47); Mean Cell Volume 79.4 fL (78-100); Mean Corpuscular Hemoglobin 22.5 pg (26-32); Mean Corpuscular Hgb Concent. 28.3 g/dL (32-36); Platelet Count 357 x10^3/uL (150-450); Red Blood Count 3.11 x10^6/uL (4.1-5.4); White Blood Count 21.1 x10^3/uL (4.0-10.5)
[2021-10-23 04:58] LABS: ALBUMIN 3.2 g/dL (3.5-5.0); ALKALINE PHOSPHATASE 74 U/L (38-126); ANION GAP 5.6 MEQ/L (5-15); BLOOD UREA NITROGEN 17 mg/dL (7-17); CHLORIDE 102 mmol/L (98-107); Carbon Dioxide 34 mmol/L (22-30); Creatinine 1 0.76 mg/dL (0.52-1.04); EST GLOMERULAR FILTRATION RATE > 60.0 ML/MIN; Glucose 140 mg/dL (74-106); Potassium 4.7 mmol/L (3.5-5.1); SGOT/AST 16 U/L (14-36); SGPT/ALT 15 U/L (0-35); SODIUM 136 mmol/L (137-145); Total Protein 5.6 g/dL (6.3-8.2)
[2021-10-23] MEDS ORDERED: VENTOLIN COMMON CANISTER IH PRN (07:20)
[2021-10-23] MEDS ORDERED: Nitrostat 0.4 MG Tablet SL PRN (07:20)
[2021-10-23] MEDS ORDERED: Advair Hfa 115/21 Common canister IH SCH (08:00)
--- NOTE | 2021-10-23 08:53 | XRAY ---
Indication: Short of breath. Pneumonia. Comparison: July 15, 2021 Portable chest demonstrates new minimal bibasilar infiltrates versus atelectasis without consolidation/large effusion. Heart not enlarged again with small hiatal hernia. Bony thorax intact again with osteopenia and degenerative changes.
[2021-10-23] MEDS: Imdur 30 MG PO SCH (09:18)
[2021-10-23] MEDS: ZOLOFT 50 MG TABLET PO SCH (09:18)
[2021-10-23] MEDS: SYNTHROID 25 MCG PO SCH (09:19)
[2021-10-23] MEDS: Neurontin PO SCH (09:19)
[2021-10-23] MEDS: Protonix 40MG Tablet PO SCH (09:19)
[2021-10-23] MEDS: DELTASONE 10 MG PO SCH ×2 (09:20→21:22)
[2021-10-23] MEDS: THEOPHYLLINE ER 24HR PO SCH (09:20)
[2021-10-23] MEDS: Nicoderm CQ 21 MG TOP SCH (09:20)
[2021-10-23] MEDS: VIBRAMYCIN 100 MG*** 100 MG in Dextrose 5%/Water IV Soln. 100ML PLUS BAG 100 ML IV SCH ×2 (09:21→21:14)
[2021-10-23] MEDS ORDERED: Sodium Chloride 0.9% 500 ML 500 ML IV SCH (09:45)
[2021-10-23 09:48] LABS: Epithelial Cells RARE /HPF (FEW); Mucus SLIGHT /HPF (NEGATIVE); WBC 0-2 /HPF (0-5)
[2021-10-23 09:49] LABS: Appearance CLEAR (CLEAR); Bilirubin NEGATIVE (NEGATIVE); Dipstick done @ ? MAIN LAB; Glucose 250 mg/dL (NEGATIVE); Ketones NEGATIVE (NEGATIVE); Nitrite NEGATIVE (NEGATIVE); Ph 5.5 (5-6); Protein,Urine Dip NEGATIVE (Negative); RBC NEGATIVE Ery/ul (0-5); Specific Gravity >=1.030 (1.005-1.025); Urobilinogen 0.2 mg/dL (0-1)
[2021-10-23] MEDS ORDERED: NON-FORMULARY ITEM (Sertraline Hcl 100 Mg [Zoloft 100 Mg] 100 MG Tab) PO SCH (10:00)
[2021-10-23] MEDS ORDERED: PULMICORT 0.5 MG/2 ML RESPULES IH SCH (10:00)
[2021-10-23] MEDS ORDERED: VIBRAMYCIN 100 MG*** 100 MG in Dextrose 5%/Water IV Soln. 100ML PLUS BAG 100 ML IV SCH (10:00)
[2021-10-23] MEDS ORDERED: NON-FORMULARY ITEM (Theophylline Anhydrous [Theophylline Er] 300 MG Tab.Er.12h) PO SCH (10:00)
[2021-10-23] MEDS ORDERED: NON-FORMULARY ITEM (Omeprazole [Omeprazole] 40 MG Capsule.Dr) PO SCH (10:00)
[2021-10-23] MEDS ORDERED: ALBUTEROL IH SCH (10:00)
[2021-10-23] MEDS ORDERED: [UNRECOGNIZED DRUG - OTHER] IH SCH (10:00)
[2021-10-23 10:29] LABS: ABO TYPING A; Antibody Screen NEGATIVE (NEGATIVE); RH TYPING POSITIVE
[2021-10-23 10:30] LABS: CROSS MATCH (PRBC) COMPATIBLE (COMPATIBLE)
[2021-10-23 10:31] LABS: Urine Cultured Indicated? NO
--- NOTE | 2021-10-23 12:48 | PCM.HP ---
History of Present Illness - Chief Complaint Chief Complaint: shortness of breath for 2-3 days History of Present Illness: is a 65 year old female.presents to emergency department for evaluation of shortness of breath x1 week. Patient states she has a history of COPD. Patient requires 3 L of nasal cannula 24 hours/day. Patient states she has been experiencing some shortness of breath. Patient followed up with her primary care provider approximately 2 weeks ago. Patient was started on Levaquin. Patient completed her course of Levaquin and still feels short of breath. Patient states she had subjective fevers at home. Patient does not have objective fevers here. Patient has been experiencing cough fever and shortness of breath. No chest pain. No nausea vomiting or diaphoresis. No rash. No diarrhea. Symptoms are constant. Symptoms are moderate in intensity. No specific worsening improving factors. Patient voices no other complaints or concerns at this time. - Review of Systems Constitutional: No Fever, No Chills Eyes: No Symptoms Ears, Nose, & Throat: No Symptoms Respiratory: No Cough, No Short Of Breath Cardiac: No Chest Pain, No Edema, No Syncope Abdominal/Gastrointestinal: No Abdominal Pain, No Nausea, No Vomiting, No Diarrhea Genitourinary Symptoms: No Dysuria Musculoskeletal: No Back Pain, No Neck Pain Skin: No Rash Neurological: No Dizziness, No Focal Weakness, No Sensory Changes Psychological: No Symptoms Endocrine: No Symptoms Hematologic/Lymphatic: No Symptoms Immunological/Allergic: No Symptoms Medications & Allergies Home Medications: Home Medication List Albuterol/Ipratropium Mdi [Combivent Inhaler] 1 puff IH QID 12/29/12 [History Confirmed 10/23/21] Clonazepam 0.5 mg [Klonopin 0.5 MG] 2 mg PO BID 12/29/12 [History Confirmed 10/22/21] Famotidine 20 mg [Pepcid 20 MG] 20 mg PO BID 12/29/12 [History Confirmed 10/22/21] Fluticasone/Salmeterol Disc [Advair/[place] 250-50 Diskus 14 Dose] 1 puff IH BID 12/29/12 [History Confirmed 10/22/21] Sertraline HCl 100 mg [Zoloft 100 MG] 200 mg PO DAILY 12/17/13 [History Confirmed 10/22/21] Isosorbide Mononitrate 30 mg [Imdur 30 MG] 30 mg PO DAILY 11/05/14 [History Confirmed 10/23/21] Tizanidine HCl 4 mg [Zanaflex 4 MG] 4 mg PO TID 01/16/15 [History Confirmed 10/22/21] Quetiapine Fumarate [Seroquel] 200 mg PO BID 10/17/15 [History Confirmed 10/22/21] Nitroglycerin 0.4 mg Tablet [Nitrostat 0.4 MG Tablet] 0.4 mg SL UD PRN 11/15/15 [History Confirmed 10/22/21] Albuterol Common Canister [Ventolin Common Canister] 2 puff IH QID PRN PRN 07/08/19 [History Confirmed 10/22/21] Gabapentin 1,200 mg PO QAM 04/08/20 [History Confirmed 10/23/21] Gabapentin [Neurontin] 2,400 mg PO HS 04/08/20 [History Confirmed 10/22/21] Theophylline Anhydrous [Theophylline ER] 300 mg PO DAILY 12/23/20 [History Confirmed 10/22/21] Fluticasone Propionate [Flonase NASAL] 1 spray NS BID 03/15/21 [History Confirmed 10/23/21] Prednisone 20 mg [Deltasone 20 mg] 10 mg PO BID 03/15/21 [History Confirmed 10/22/21] Levothyroxine Sodium 25 Mcg [Synthroid 25 Mcg] 25 mcg PO DAILY tablet 03/17/21 [Rx Confirmed 10/22/21] Albuterol/Ipratropium 3ml Neb* [DUONEB 0.5-3 MG/3 ml Neb] 3 ml IH Q4H 07/15/21 [History Confirmed 10/22/21] Omeprazole 40 mg PO DAILY 10/22/21 [History Confirmed 10/22/21] Nicotine 21 mg [Nicoderm CQ 21 MG] 21 mg TOP DAILY 10/23/21 [History Confirmed 10/23/21] Allergies/Adverse Reactions: Allergies Allergy/AdvReac Type Severity Reaction Status Date / Time morphine Allergy Severe Fainting Verified 10/22/21 19:40 oxycodone Allergy Shortness Verified 10/22/21 19:40 of Breath Penicillins Allergy Verified 10/22/21 19:40 oxymorphone AdvReac Severe Fainting Verified 10/22/21 19:40 [place] AdvReac Intermediate Headache Verified 10/22/21 19:40 bupropion HCl AdvReac Mild Hives Verified 10/22/21 19:40 [From Wellbutrin] - Past Medical History Past Medical History: Yes Neurological History: Migraines ENT History: No Pertinent History Cardiac History: Congestive Heart Failure, Coronary Artery Disease, High Cholesterol Respiratory History: Asthma, Bronchitis, COPD, Pneumonia Endocrine Medical History: Hypothyroidism Musculoskelatal History: Arthritis, Osteoporosis GI Medical History: GERD, Hernia, Polyps History: No Pertinent History Pyscho-Social History: Anxiety, Bipolar, Depression Reproductive Disorders: Fibroids Comment: 2 LEAKY VALVES. BORDERLINE PERSONALITY DISORDER, PTSD, manic depressive - Past Surgical History Past Surgical History: Yes Neuro Surgical History: No Pertinent History Cardiac History: Cardiac Catheterization Respiratory Surgery: No Pertinent History GI Surgical History: Other Genitourinary Surgical Hx: No Pertinent History Musculskeletal Surgical Hx: Other Female Surgical History: Section Other Surgical History: ARM SURGERY-- left wrist laceration from a glass door, 2 c-sections, EGD with dilitation, colonoscopy, heart cath x 2 - Social History Smoking Status: Current every day smoker How long have you smoked: 40 years Exposure to second hand smoke: Yes Alcohol: None Drug Use: none Significant Family History: no pertinent family hx - Physical Exam Vital Signs: Vital Signs - 24 hr Temp Pulse Resp BP Pulse Ox 10/23/21 10:34 98 H 22 96 10/23/21 08:00 96.1 F 71 23 121/58 98 10/23/21 06:38 72 20 93 L 10/23/21 03:18 96.1 F 90 22 86/47 95 10/23/21 02:40 87 18 96 10/22/21 22:55 90 22 145/72 99 10/22/21 22:47 99 10/22/21 22:41 98 10/22/21 22:02 98 H 18 136/76 98 10/22/21 21:10 99 H 30 H 136/76 98 10/22/21 20:05 109 H 24 96 10/22/21 19:54 100 10/22/21 19:44 34 H 99 10/22/21 19:42 97.4 F 113 H 18 146/65 97 General Appearance: no apparent distress, alert Neurologic Exam: alert, oriented x 3, cooperative, normal mood/affect, nml cerebellar function, nml station & gait, sensation nml, No motor deficits Eye Exam: PERRL/EOMI, eyes nml inspection Ears, Nose, Throat Exam: normal ENT inspection, TMs normal, pharynx normal, moist mucous membranes Neck Exam: normal inspection, non-tender, supple, full range of motion Respiratory Exam: diminished breath sounds, crackles/rales, rhonchi, wheezing, No respiratory distress Cardiovascular Exam: regular rate/rhythm, normal heart sounds, normal peripheral pulses Gastrointestinal/Abdomen Exam: soft, normal bowel sounds, No tenderness, No mass Back Exam: normal inspection, normal range of motion, No CVA tenderness, No vertebral tenderness Extremity Exam: normal inspection, normal range of motion, pelvis stable Skin Exam: normal color, warm, dry, No rash Lymphatic Exam: No adenopathy Results - Labs Lab/Micro Results: Lab Results-Last 24 Hours 10/22/21 10/22/21 10/22/21 Range/Units 20:10 20:10 20:10 WBC 38.6 H* (4.0-10.5) x10^3/uL RBC 3.65 L (4.1-5.4) x10^6/uL Hgb 8.2 L (12.0-16.0) g/dL Hct 28.7 L (35-47) % MCV 78.6 (78-100) fL MCH 22.5 L (26-32) pg MCHC 28.6 L (32-36) g/dL RDW 18.8 H (11.5-14.0) % Plt Count 488 H (150-450) x10^3/uL MPV 10.6 (7.5-11.0) fL Segmented Neutrophils 92 H (36.0-66.0) % Band Neutrophils 0 (0.0-2.0) % Lymphocytes (Manual) 1 L (24-44) % Monocytes (Manual) 1 (0.0-12.0) % Eosinophils (Manual) 1 (0.00-3.0) % Basophils (Manual) 1 (0.0-1.0) % Atypical Lymphocytes 4 % Hypochromia 2+ Platelet Estimate NORMAL (NORMAL) RBC Morphology ABNORMAL Poikilocytosis 1+ Anisocytosis 2+ Microcytosis 1+ Stomatocytes 1+ Smear Path Review Pending Sodium 138 (137-145) mmol/L Potassium 4.1 (3.5-5.1) mmol/L Chloride 100 (98-107) mmol/L Carbon Dioxide 32 H (22-30) mmol/L Anion Gap 10.1 (5-15) MEQ/L BUN 14 (7-17) mg/dL Creatinine 0.83 (0.52-1.04) mg/dL Estimated GFR > 60.0 ML/MIN Glucose 142 H (74-106) mg/dL Lactic Acid (0.4-2.0) Calcium 9.4 (8.4-10.2) mg/dL Total Bilirubin 0.30 (0.2-1.3) mg/dL AST 24 (14-36) U/L ALT 17 (0-35) U/L Alkaline Phosphatase 88 (38-126) U/L Troponin I < 0.012 (0.000-0.034) ng/mL NT-Pro-B Natriuret Pep 217 (0-900) pg/mL Serum Total Protein 6.5 (6.3-8.2) g/dL Albumin 3.9 (3.5-5.0) g/dL Urinalys Dipstick Clnc Urine Color (YELLOW) Urine Appearance (CLEAR) Urine pH (5-6) Ur Specific [place] (1.005-1.025) POC Urine Protein Conf (Negative) Urine Ketones (NEGATIVE) Urine Nitrite (NEGATIVE) Urine Bilirubin (NEGATIVE) Urine Urobilinogen (0-1) mg/dL Urine Leukocytes (NEGATIVE) Urine WBC (Auto) (0-5) /HPF Urine RBC (Auto) (0-2) /HPF U Epithel Cells (Auto) (FEW) /HPF Urine Bacteria (Auto) (NEGATIVE) /HPF Urine RBC (0-5) Erasto/ul Urine Mucus (Auto) (NEGATIVE) /HPF Ur Culture Indicated? Urine Glucose (NEGATIVE) mg/dL Influenza Type A Ag (NEGATIVE) Influenza Type B Ag (NEGATIVE) RSV (PCR) (Negative) SARS-CoV-2 (PCR) (NEGATIVE) ABO Group Rh Factor Antibody Screen (NEGATIVE) Crossmatch (COMPATIBLE) 10/22/21 10/22/21 10/22/21 Range/Units 20:20 21:30 22:25 WBC (4.0-10.5) x10^3/uL RBC (4.1-5.4) x10^6/uL Hgb (12.0-16.0) g/dL Hct (35-47) % MCV (78-100) fL MCH (26-32) pg MCHC (32-36) g/dL RDW (11.5-14.0) % Plt Count (150-450) x10^3/uL MPV (7.5-11.0) fL Segmented Neutrophils (36.0-66.0) % Band Neutrophils (0.0-2.0) % Lymphocytes (Manual) (24-44) % Monocytes (Manual) (0.0-12.0) % Eosinophils (Manual) (0.00-3.0) % Basophils (Manual) (0.0-1.0) % Atypical Lymphocytes % Hypochromia Platelet Estimate (NORMAL) RBC Morphology Poikilocytosis Anisocytosis Microcytosis Stomatocytes Smear Path Review Sodium (137-145) mmol/L Potassium (3.5-5.1) mmol/L Chloride (98-107) mmol/L Carbon Dioxide (22-30) mmol/L Anion Gap (5-15) MEQ/L BUN (7-17) mg/dL Creatinine (0.52-1.04) mg/dL Estimated GFR ML/MIN Glucose (74-106) mg/dL Lactic Acid 2.3 H 1.7 (0.4-2.0) Calcium (8.4-10.2) mg/dL Total Bilirubin (0.2-1.3) mg/dL AST (14-36) U/L ALT (0-35) U/L Alkaline Phosphatase (38-126) U/L Troponin I (0.000-0.034) ng/mL NT-Pro-B Natriuret Pep (0-900) pg/mL Serum Total Protein (6.3-8.2) g/dL Albumin (3.5-5.0) g/dL Urinalys Dipstick Clnc Urine Color (YELLOW) Urine Appearance (CLEAR) Urine pH (5-6) Ur Specific [place] (1.005-1.025) POC Urine Protein Conf (Negative) Urine Ketones (NEGATIVE) Urine Nitrite (NEGATIVE) Urine Bilirubin (NEGATIVE) Urine Urobilinogen (0-1) mg/dL Urine Leukocytes (NEGATIVE) Urine WBC (Auto) (0-5) /HPF Urine RBC (Auto) (0-2) /HPF U Epithel Cells (Auto) (FEW) /HPF Urine Bacteria (Auto) (NEGATIVE) /HPF Urine RBC (0-5) Erasto/ul Urine Mucus (Auto) (NEGATIVE) /HPF Ur Culture Indicated? Urine Glucose (NEGATIVE) mg/dL Influenza Type A Ag NEGATIVE (NEGATIVE) Influenza Type B Ag NEGATIVE (NEGATIVE) RSV (PCR) NEGATIVE (Negative) SARS-CoV-2 (PCR) NEGATIVE (NEGATIVE) ABO Group Rh Factor Antibody Screen (NEGATIVE) Crossmatch (COMPATIBLE) 10/23/21 10/23/21 10/23/21 Range/Units 00:10 04:20 04:20 WBC 21.1 H (4.0-10.5) x10^3/uL RBC 3.11 L (4.1-5.4) x10^6/uL Hgb 7.0 L (12.0-16.0) g/dL Hct 24.7 L (35-47) % MCV 79.4 (78-100) fL MCH 22.5 L (26-32) pg MCHC 28.3 L (32-36) g/dL RDW 19.0 H (11.5-14.0) % Plt Count 357 (150-450) x10^3/uL MPV 10.0 (7.5-11.0) fL Segmented Neutrophils (36.0-66.0) % Band Neutrophils (0.0-2.0) % Lymphocytes (Manual) (24-44) % Monocytes (Manual) (0.0-12.0) % Eosinophils (Manual) (0.00-3.0) % Basophils (Manual) (0.0-1.0) % Atypical Lymphocytes % Hypochromia Platelet Estimate (NORMAL) RBC Morphology Poikilocytosis Anisocytosis Microcytosis Stomatocytes Smear Path Review Sodium (137-145) mmol/L Potassium (3.5-5.1) mmol/L Chloride (98-107) mmol/L Carbon Dioxide (22-30) mmol/L Anion Gap (5-15) MEQ/L BUN (7-17) mg/dL Creatinine (0.52-1.04) mg/dL Estimated GFR ML/MIN Glucose (74-106) mg/dL Lactic Acid (0.4-2.0) Calcium (8.4-10.2) mg/dL Total Bilirubin (0.2-1.3) mg/dL AST (14-36) U/L ALT (0-35) U/L Alkaline Phosphatase (38-126) U/L Troponin I < 0.012 < 0.012 (0.000-0.034) ng/mL NT-Pro-B Natriuret Pep (0-900) pg/mL Serum Total Protein (6.3-8.2) g/dL Albumin (3.5-5.0) g/dL Urinalys Dipstick Clnc Urine Color (YELLOW) Urine Appearance (CLEAR) Urine pH (5-6) Ur Specific [place] (1.005-1.025) POC Urine Protein Conf (Negative) Urine Ketones (NEGATIVE) Urine Nitrite (NEGATIVE) Urine Bilirubin (NEGATIVE) Urine Urobilinogen (0-1) mg/dL Urine Leukocytes (NEGATIVE) Urine WBC (Auto) (0-5) /HPF Urine RBC (Auto) (0-2) /HPF U Epithel Cells (Auto) (FEW) /HPF Urine Bacteria (Auto) (NEGATIVE) /HPF Urine RBC (0-5) Erasto/ul Urine Mucus (Auto) (NEGATIVE) /HPF Ur Culture Indicated? Urine Glucose (NEGATIVE) mg/dL Influenza Type A Ag (NEGATIVE) Influenza Type B Ag (NEGATIVE) RSV (PCR) (Negative) SARS-CoV-2 (PCR) (NEGATIVE) ABO Group Rh Factor Antibody Screen (NEGATIVE) Crossmatch (COMPATIBLE) 10/23/21 10/23/21 10/23/21 Range/Units 04:20 09:49 10:28 WBC (4.0-10.5) x10^3/uL RBC (4.1-5.4) x10^6/uL Hgb (12.0-16.0) g/dL Hct (35-47) % MCV (78-100) fL MCH (26-32) pg MCHC (32-36) g/dL RDW (11.5-14.0) % Plt Count (150-450) x10^3/uL MPV (7.5-11.0) fL Segmented Neutrophils (36.0-66.0) % Band Neutrophils (0.0-2.0) % Lymphocytes (Manual) (24-44) % Monocytes (Manual) (0.0-12.0) % Eosinophils (Manual) (0.00-3.0) % Basophils (Manual) (0.0-1.0) % Atypical Lymphocytes % Hypochromia Platelet Estimate (NORMAL) RBC Morphology Poikilocytosis Anisocytosis Microcytosis Stomatocytes Smear Path Review Sodium 136 L (137-145) mmol/L Potassium 4.7 (3.5-5.1) mmol/L Chloride 102 (98-107) mmol/L Carbon Dioxide 34 H (22-30) mmol/L Anion Gap 5.6 (5-15) MEQ/L BUN 17 (7-17) mg/dL Creatinine 0.76 (0.52-1.04) mg/dL Estimated GFR > 60.0 ML/MIN Glucose 140 H (74-106) mg/dL Lactic Acid (0.4-2.0) Calcium 9.0 (8.4-10.2) mg/dL Total Bilirubin 0.10 L (0.2-1.3) mg/dL AST 16 (14-36) U/L ALT 15 (0-35) U/L Alkaline Phosphatase 74 (38-126) U/L Troponin I (0.000-0.034) ng/mL NT-Pro-B Natriuret Pep (0-900) pg/mL Serum Total Protein 5.6 L (6.3-8.2) g/dL Albumin 3.2 L (3.5-5.0) g/dL Urinalys Dipstick Clnc MAIN LAB Urine Color YELLOW (YELLOW) Urine Appearance CLEAR (CLEAR) Urine pH 5.5 (5-6) Ur Specific [place] >=1.030 (1.005-1.025) POC Urine Protein Conf NEGATIVE (Negative) Urine Ketones NEGATIVE (NEGATIVE) Urine Nitrite NEGATIVE (NEGATIVE) Urine Bilirubin NEGATIVE (NEGATIVE) Urine Urobilinogen 0.2 (0-1) mg/dL Urine Leukocytes NEGATIVE (NEGATIVE) Urine WBC (Auto) 0-2 (0-5) /HPF Urine RBC (Auto) NONE (0-2) /HPF U Epithel Cells (Auto) RARE (FEW) /HPF Urine Bacteria (Auto) NONE (NEGATIVE) /HPF Urine RBC NEGATIVE (0-5) Erasto/ul Urine Mucus (Auto) SLIGHT (NEGATIVE) /HPF Ur Culture Indicated? NO Urine Glucose 250 (NEGATIVE) mg/dL Influenza Type A Ag (NEGATIVE) Influenza Type B Ag (NEGATIVE) RSV (PCR) (Negative) SARS-CoV-2 (PCR) (NEGATIVE) ABO Group Rh Factor Antibody Screen (NEGATIVE) Crossmatch COMPATIBLE (COMPATIBLE) 10/23/21 Range/Units Unknown WBC (4.0-10.5) x10^3/uL RBC (4.1-5.4) x10^6/uL Hgb (12.0-16.0) g/dL Hct (35-47) % MCV (78-100) fL MCH (26-32) pg MCHC (32-36) g/dL RDW (11.5-14.0) % Plt Count (150-450) x10^3/uL MPV (7.5-11.0) fL Segmented Neutrophils (36.0-66.0) % Band Neutrophils (0.0-2.0) % Lymphocytes (Manual) (24-44) % Monocytes (Manual) (0.0-12.0) % Eosinophils (Manual) (0.00-3.0) % Basophils (Manual) (0.0-1.0) % Atypical Lymphocytes % Hypochromia Platelet Estimate (NORMAL) RBC Morphology Poikilocytosis Anisocytosis Microcytosis Stomatocytes Smear Path Review Sodium (137-145) mmol/L Potassium (3.5-5.1) mmol/L Chloride (98-107) mmol/L Carbon Dioxide (22-30) mmol/L Anion Gap (5-15) MEQ/L BUN (7-17) mg/dL Creatinine (0.52-1.04) mg/dL Estimated GFR ML/MIN Glucose (74-106) mg/dL Lactic Acid (0.4-2.0) Calcium (8.4-10.2) mg/dL Total Bilirubin (0.2-1.3) mg/dL AST (14-36) U/L ALT (0-35) U/L Alkaline Phosphatase (38-126) U/L Troponin I (0.000-0.034) ng/mL NT-Pro-B Natriuret Pep (0-900) pg/mL Serum Total Protein (6.3-8.2) g/dL Albumin (3.5-5.0) g/dL Urinalys Dipstick Clnc Urine Color (YELLOW) Urine Appearance (CLEAR) Urine pH (5-6) Ur Specific [place] (1.005-1.025) POC Urine Protein Conf (Negative) Urine Ketones (NEGATIVE) Urine Nitrite (NEGATIVE) Urine Bilirubin (NEGATIVE) Urine Urobilinogen (0-1) mg/dL Urine Leukocytes (NEGATIVE) Urine WBC (Auto) (0-5) /HPF Urine RBC (Auto) (0-2) /HPF U Epithel Cells (Auto) (FEW) /HPF Urine Bacteria (Auto) (NEGATIVE) /HPF Urine RBC (0-5) Erasto/ul Urine Mucus (Auto) (NEGATIVE) /HPF Ur Culture Indicated? Urine Glucose (NEGATIVE) mg/dL Influenza Type A Ag (NEGATIVE) Influenza Type B Ag (NEGATIVE) RSV (PCR) (Negative) SARS-CoV-2 (PCR) (NEGATIVE) ABO Group A Rh Factor POSITIVE Antibody Screen NEGATIVE (NEGATIVE) Crossmatch COMPATIBLE (COMPATIBLE) - Radiology Impressions Radiology Exams & Impressions: Radiology Procedures Category Date Time Status CHEST 1 VIEW (PORTABLE) Stat Exams 10/22/21 19:51 Completed - Other Procedures and Tests Respiratory Therapy 10/22/21 20:27 Respiratory Therapy Assessment DAILY 10/22/21 23:48 Oxygen Nasal Cannula 3 lpm Assessment/Plan (1) COPD exacerbation Current Visit: Yes Status: Acute Assessment & Plan: Chief Complaint Diagnosis COPD exacerbation Allergies Allergy/AdvReac Type Severity Reaction Status Date / Time morphine Allergy Severe Fainting Verified 10/22/21 19:40 oxycodone Allergy Shortness Verified 10/22/21 19:40 of Breath Penicillins Allergy Verified 10/22/21 19:40 oxymorphone AdvReac Severe Fainting Verified 10/22/21 19:40 [place] AdvReac Intermediate Headache Verified 10/22/21 19:40 bupropion HCl AdvReac Mild Hives Verified 10/22/21 19:40 [From Wellbutrin] Vital Signs (Last 24 hours) Temp Pulse Resp BP Pulse Ox 10/23/21 10:34 98 H 22 96 10/23/21 08:00 96.1 F 71 23 121/58 98 10/23/21 06:38 72 20 93 L 10/23/21 03:18 96.1 F 90 22 86/47 95 10/23/21 02:40 87 18 96 10/22/21 22:55 90 22 145/72 99 10/22/21 22:47 99 10/22/21 22:41 98 10/22/21 22:02 98 H 18 136/76 98 10/22/21 21:10 99 H 30 H 136/76 98 10/22/21 20:05 109 H 24 96 10/22/21 19:54 100 10/22/21 19:44 34 H 99 10/22/21 19:42 97.4 F 113 H 18 146/65 97 Home Medications Medication Instructions Recorded Confirmed Last Taken Type Omeprazole 40 mg PO DAILY 10/22/21 10/22/21 Unknown History Nicotine 21 mg [Nicoderm CQ 21 21 mg TOP DAILY 10/23/21 10/23/21 Unknown History MG] Current Medications Generic Name Dose Route Start Last Admin Trade Name Freq PRN Reason Stop Dose Admin Acetaminophen 500 mg 10/23/21 00:39 10/23/21 01:19 Acetaminophen 500 Mg Tablet PO 11/22/21 00:38 500 mg Q4H PRN PRN Administration PAIN AND/OR FEVER Albuterol Sulfate 2 puff 10/23/21 07:20 Albuterol Common Canister Inhaler 11/22/21 07:19 QID PRN PRN SHORTNESS OF BREATH Albuterol/Ipratropium 3 ml 10/23/21 03:00 10/23/21 10:33 Ipratropium/Albuterol Sulfate 3 Ml Ampul.Neb 11/22/21 02:59 3 ml Q4HRT VALERY Administration Budesonide 0.5 mg 10/23/21 19:00 Budesonide 0.5 Mg/2 Ml Ampul.Neb. 11/22/21 09:59 BIDRT VALERY Clonazepam 2 mg 10/23/21 00:51 10/23/21 09:19 Clonazepam 2 Mg Tablet PO 11/22/21 00:50 2 mg BID VALERY Administration Famotidine 20 mg 10/23/21 00:51 10/23/21 09:20 Famotidine 20 Mg Tablet PO 11/22/21 00:50 20 mg BID VALERY Administration Fluticasone Propionate 1 gm 10/23/21 00:52 10/23/21 09:19 Fluticasone Propionate 16 Gm Bottle Nasal [place] NS 11/22/21 00:51 1 gm BID VALERY Administration Gabapentin 2,400 mg 10/23/21 00:52 10/23/21 01:18 Gabapentin 300 Mg Capsule PO 11/22/21 00:51 2,400 mg HS VALERY Administration Gabapentin 1,200 mg 10/23/21 10:00 10/23/21 09:19 Gabapentin 400 Mg Capsule PO 11/22/21 09:59 1,200 mg QAM VALERY Administration Doxycycline Hyclate 100 mg/ 100 mls @ 100 mls/hr 10/22/21 22:00 10/23/21 09:21 Dextrose IV 11/21/21 21:59 100 mls/hr Q12HT VALERY Administration Vancomycin HCl 1 gm in 200 mls @ 133.333 mls/hr 10/23/21 22:00 Vancomycin 1 Gram/200 Ml Bag IV 11/21/21 22:46 QPM VALERY Sodium Chloride 500 mls @ 50 mls/hr 10/23/21 09:45 10/23/21 10:54 Sodium Chloride 0.9% 500 Ml IV 11/22/21 09:44 50 mls/hr .Q10H VALERY Administration Isosorbide Mononitrate 30 mg 10/23/21 10:00 10/23/21 09:18 Isosorbide Mononitrate 30 Mg Tab PO 11/22/21 09:59 30 mg DAILY VALERY Administration Levothyroxine Sodium 25 mcg 10/23/21 10:00 10/23/21 09:19 Levothyroxine Sodium 25 Mcg Tablet PO 11/22/21 09:59 25 mcg DAILY VALERY Administration Nicotine 21 mg 10/23/21 10:00 10/23/21 09:20 Nicotine 21 Mg/Patch Patch TOP 11/22/21 09:59 21 mg DAILY VALERY Administration Nitroglycerin 0.4 mg 10/23/21 07:20 Nitroglycerin 0.4 Mg Tablet Bottle SL 11/22/21 07:19 UD PRN CHEST PAIN Pantoprazole Sodium 40 mg 10/23/21 10:00 10/23/21 09:19 Protonix (Pantoprazole) 40 Mg Tablet PO 11/22/21 09:59 40 mg DAILY VALERY Administration Prednisone 10 mg 10/23/21 10:00 10/23/21 09:20 Prednisone 10 Mg Tablet PO 11/22/21 09:59 10 mg BID VALERY Administration Quetiapine Fumarate 200 mg 10/23/21 00:53 10/23/21 09:19 Quetiapine Fumarate 100 Mg Tablet PO 11/22/21 00:52 200 mg BID VALERY Administration Fluticasone/Salmeterol 2 puff 10/23/21 08:00 Fluticasone/Salmeterol 115/21 - 120 Puff Common Canister IH 11/22/21 07:59 BIDRT VALERY Sertraline HCl 200 mg 10/23/21 10:00 10/23/21 09:18 Sertraline Hcl 50 Mg Tab PO 11/22/21 09:59 200 mg DAILY VALERY Administration Theophylline 300 mg 10/23/21 10:00 10/23/21 09:20 Theophylline Anhydrous 400 Mg Tab.Er.24hr Tablet PO 11/22/21 09:59 300 mg DAILY VALERY Administration Tizanidine HCl 4 mg 10/23/21 00:54 10/23/21 09:19 Tizanidine Hcl 4 Mg Tablet PO 11/22/21 00:53 4 mg TID VALERY Administration Discontinued Medications Generic Name Dose Route Start Last Admin Trade Name Freq PRN Reason Stop Dose Admin Albuterol/Ipratropium 3 ml 10/22/21 19:53 10/22/21 20:05 Ipratropium/Albuterol Sulfate 3 Ml Ampul.Neb 10/22/21 19:54 3 ml STAT ONE Administration Albuterol/Ipratropium Confirm 10/22/21 20:10 Ipratropium/Albuterol Sulfate 3 Ml Ampul.Neb Administered 10/22/21 20:11 Dose 3 ml IH .STK-MED ONE Budesonide 0.5 mg 10/23/21 10:00 10/23/21 06:35 Budesonide 0.5 Mg/2 Ml Ampul.Neb. IH 11/22/21 09:59 0.5 mg BID VALERY Administration Methylprednisolone Sodium 0 mg 10/22/21 19:53 10/22/21 20:04 Succinate 125 mg/ Sterile IV 10/22/21 19:54 125 mg Water 2 ml STAT ONE Administration Methylprednisolone Sodium 0 mg 10/23/21 00:00 10/23/21 06:24 Succinate 60 mg/ Sterile Water IV 11/22/21 00:00 60 mg 2 ml Q6HT VALERY Administration Doxycycline Hyclate Confirm 10/22/21 21:53 Doxycycline Hyclate 100 Mg/Vial Injection Administered 10/22/21 21:54 Dose 100 mg IV .STK-MED ONE Gabapentin Confirm 10/23/21 01:14 Gabapentin 400 Mg Capsule Administered 10/23/21 01:15 Dose 2,400 mg .ROUTE .STK-MED ONE Vancomycin HCl 1 gm in 200 mls @ 125 mls/hr 10/22/21 19:53 10/22/21 21:59 Vancomycin 1 Gram/200 Ml Bag IV 10/22/21 21:28 Infused STAT ONE Infusion Vancomycin HCl Confirm 10/22/21 20:03 Vancomycin 1 Gram/200 Ml Bag Administered 10/22/21 20:04 Dose 1 gm in 200 mls @ ud IV .STK-MED ONE Dextrose Confirm 10/22/21 21:54 D5w 100ml Mini Bag 100 Ml Administered 10/22/21 21:55 Dose 100 mls @ ud IV .STK-MED ONE Dextrose Confirm 10/22/21 21:57 D5w 100ml Mini Bag 100 Ml Administered 10/22/21 21:58 Dose 100 mls @ ud IV .STK-MED ONE Vancomycin HCl 1 gm in 200 mls @ 125 mls/hr 10/22/21 22:47 10/23/21 05:10 Vancomycin 1 Gram/200 Ml Bag IV 11/21/21 22:46 Not Given Q24H [facility] Methylprednisolone Sodium Succinate Confirm 10/22/21 20:03 Methylprednis Sod Succ 125 Mg/2 Ml Vial Administered 10/22/21 20:04 Dose 125 mg .ROUTE .STK-MED ONE Methylprednisolone Sodium Succinate Confirm 10/23/21 00:26 Methylprednis Sod Succ 125 Mg/2 Ml Vial Administered 10/23/21 00:27 Dose 125 mg .ROUTE .STK-MED ONE Methylprednisolone Sodium Succinate Confirm 10/23/21 06:22 Methylprednis Sod Succ 125 Mg/2 Ml Vial Administered 10/23/21 06:23 Dose 125 mg .ROUTE .STK-MED ONE Sterile Water Confirm 10/22/21 20:03 Water For Injection,Sterile 10 Ml Vial Administered 10/22/21 20:04 Dose 10 ml IJ .STK-MED ONE Sterile Water Confirm 10/23/21 00:26 Water For Injection,Sterile 10 Ml Vial Administered 10/23/21 00:27 Dose 10 ml IJ .STK-MED ONE Intake & Output (Last 24 hours) 10/21/21 10/22/21 10/23/21 10/24/21 11:59 11:59 11:59 11:59 Intake Total 420 Output Total 1000 Balance -580 Weight 74.9 kg Microbiology Results (Last 24 hours) 10/22/21 20:12 Blood Blood Culture Gram Stain - Pending 10/22/21 20:12 Blood Blood Culture - Pending 10/22/21 20:10 Blood Blood Culture Gram Stain - Pending 10/22/21 20:10 Blood Blood Culture - Pending Laboratory Results (Last 24 hours) 10/23/21 10/23/21 10/23/21 Unknown 10:28 09:49 WBC RBC Hgb Hct MCV MCH MCHC RDW Plt Count MPV Segmented Neutrophils Band Neutrophils Lymphocytes (Manual) Monocytes (Manual) Eosinophils (Manual) Basophils (Manual) Atypical Lymphocytes Hypochromia Platelet Estimate RBC Morphology Poikilocytosis Anisocytosis Microcytosis Stomatocytes Sodium Potassium Chloride Carbon Dioxide Anion Gap BUN Creatinine Estimated GFR Glucose Lactic Acid Calcium Total Bilirubin AST ALT Alkaline Phosphatase Troponin I NT-Pro-B Natriuret Pep Serum Total Protein Albumin Urinalys Dipstick Clnc MAIN LAB Urine Color YELLOW Urine Appearance CLEAR Urine pH 5.5 Ur Specific [place] >=1.030 POC Urine Protein Conf NEGATIVE Urine Ketones NEGATIVE Urine Nitrite NEGATIVE Urine Bilirubin NEGATIVE Urine Urobilinogen 0.2 Urine Leukocytes NEGATIVE Urine WBC (Auto) 0-2 Urine RBC (Auto) NONE U Epithel Cells (Auto) RARE Urine Bacteria (Auto) NONE Urine RBC NEGATIVE Urine Mucus (Auto) SLIGHT Ur Culture Indicated? NO Urine Glucose 250 Influenza Type A Ag Influenza Type B Ag RSV (PCR) SARS-CoV-2 (PCR) ABO Group A Rh Factor POSITIVE Antibody Screen NEGATIVE Crossmatch COMPATIBLE COMPATIBLE 10/23/21 10/23/21 10/23/21 04:20 04:20 04:20 WBC 21.1 H RBC 3.11 L Hgb 7.0 L Hct 24.7 L MCV 79.4 MCH 22.5 L MCHC 28.3 L RDW 19.0 H Plt Count 357 MPV 10.0 Segmented Neutrophils Band Neutrophils Lymphocytes (Manual) Monocytes (Manual) Eosinophils (Manual) Basophils (Manual) Atypical Lymphocytes Hypochromia Platelet Estimate RBC Morphology Poikilocytosis Anisocytosis Microcytosis Stomatocytes Sodium 136 L Potassium 4.7 Chloride 102 Carbon Dioxide 34 H Anion Gap 5.6 BUN 17 Creatinine 0.76 Estimated GFR > 60.0 Glucose 140 H Lactic Acid Calcium 9.0 Total Bilirubin 0.10 L AST 16 ALT 15 Alkaline Phosphatase 74 Troponin I < 0.012 NT-Pro-B Natriuret Pep Serum Total Protein 5.6 L Albumin 3.2 L Urinalys Dipstick Clnc Urine Color Urine Appearance Urine pH Ur Specific [place] POC Urine Protein Conf Urine Ketones Urine Nitrite Urine Bilirubin Urine Urobilinogen Urine Leukocytes Urine WBC (Auto) Urine RBC (Auto) U Epithel Cells (Auto) Urine Bacteria (Auto) Urine RBC Urine Mucus (Auto) Ur Culture Indicated? Urine Glucose Influenza Type A Ag Influenza Type B Ag RSV (PCR) SARS-CoV-2 (PCR) ABO Group Rh Factor Antibody Screen Crossmatch 10/23/21 10/22/21 10/22/21 00:10 22:25 21:30 WBC RBC Hgb Hct MCV MCH MCHC RDW Plt Count MPV Segmented Neutrophils Band Neutrophils Lymphocytes (Manual) Monocytes (Manual) Eosinophils (Manual) Basophils (Manual) Atypical Lymphocytes Hypochromia Platelet Estimate RBC Morphology Poikilocytosis Anisocytosis Microcytosis Stomatocytes Sodium Potassium Chloride Carbon Dioxide Anion Gap BUN Creatinine Estimated GFR Glucose Lactic Acid 1.7 Calcium Total Bilirubin AST ALT Alkaline Phosphatase Troponin I < 0.012 NT-Pro-B Natriuret Pep Serum Total Protein Albumin Urinalys Dipstick Clnc Urine Color Urine Appearance Urine pH Ur Specific [place] POC Urine Protein Conf Urine Ketones Urine Nitrite Urine Bilirubin Urine Urobilinogen Urine Leukocytes Urine WBC (Auto) Urine RBC (Auto) U Epithel Cells (Auto) Urine Bacteria (Auto) Urine RBC Urine Mucus (Auto) Ur Culture Indicated? Urine Glucose Influenza Type A Ag NEGATIVE Influenza Type B Ag NEGATIVE RSV (PCR) NEGATIVE SARS-CoV-2 (PCR) NEGATIVE ABO Group Rh Factor Antibody Screen Crossmatch 10/22/21 10/22/21 10/22/21 20:20 20:10 20:10 WBC RBC Hgb Hct MCV MCH MCHC RDW Plt Count MPV Segmented Neutrophils Band Neutrophils Lymphocytes (Manual) Monocytes (Manual) Eosinophils (Manual) Basophils (Manual) Atypical Lymphocytes Hypochromia Platelet Estimate RBC Morphology Poikilocytosis Anisocytosis Microcytosis Stomatocytes Sodium 138 Potassium 4.1 Chloride 100 Carbon Dioxide 32 H Anion Gap 10.1 BUN 14 Creatinine 0.83 Estimated GFR > 60.0 Glucose 142 H Lactic Acid 2.3 H Calcium 9.4 Total Bilirubin 0.30 AST 24 ALT 17 Alkaline Phosphatase 88 Troponin I < 0.012 NT-Pro-B Natriuret Pep 217 Serum Total Protein 6.5 Albumin 3.9 Urinalys Dipstick Clnc Urine Color Urine Appearance Urine pH Ur Specific [place] POC Urine Protein Conf Urine Ketones Urine Nitrite Urine Bilirubin Urine Urobilinogen Urine Leukocytes Urine WBC (Auto) Urine RBC (Auto) U Epithel Cells (Auto) Urine Bacteria (Auto) Urine RBC Urine Mucus (Auto) Ur Culture Indicated? Urine Glucose Influenza Type A Ag Influenza Type B Ag RSV (PCR) SARS-CoV-2 (PCR) ABO Group Rh Factor Antibody Screen Crossmatch 10/22/21 20:10 WBC 38.6 H* RBC 3.65 L Hgb 8.2 L Hct 28.7 L MCV 78.6 MCH 22.5 L MCHC 28.6 L RDW 18.8 H Plt Count 488 H MPV 10.6 Segmented Neutrophils 92 H Band Neutrophils 0 Lymphocytes (Manual) 1 L Monocytes (Manual) 1 Eosinophils (Manual) 1 Basophils (Manual) 1 Atypical Lymphocytes 4 Hypochromia 2+ Platelet Estimate NORMAL RBC Morphology ABNORMAL Poikilocytosis 1+ Anisocytosis 2+ Microcytosis 1+ Stomatocytes 1+ Sodium Potassium Chloride Carbon Dioxide Anion Gap BUN Creatinine Estimated GFR Glucose Lactic Acid Calcium Total Bilirubin AST ALT Alkaline Phosphatase Troponin I NT-Pro-B Natriuret Pep Serum Total Protein Albumin Urinalys Dipstick Clnc Urine Color Urine Appearance Urine pH Ur Specific [place] POC Urine Protein Conf Urine Ketones Urine Nitrite Urine Bilirubin Urine Urobilinogen Urine Leukocytes Urine WBC (Auto) Urine RBC (Auto) U Epithel Cells (Auto) Urine Bacteria (Auto) Urine RBC Urine Mucus (Auto) Ur Culture Indicated? Urine Glucose Influenza Type A Ag Influenza Type B Ag RSV (PCR) SARS-CoV-2 (PCR) ABO Group Rh Factor Antibody Screen Crossmatch Orders (Last 24 hours) Category Date Time Status Up With Assistance ROUTINE Activity 10/22/21 22:47 Active Pipe Racker STAT Care 10/22/21 19:51 Completed Code Status Order ROUTINE Care 10/22/21 22:47 Active EKG-ER Only STAT Care 10/22/21 19:51 Completed IV Care Q6H Care 10/22/21 22:47 Active IV Insertion STAT Care 10/22/21 19:[address] in Observation ROUTINE Care 10/22/21 22:47 Active Pulse Oximetry (ED) STAT Care 10/22/21 19:51 Completed Rashaun Solorio, Apply ROUTINE Care 10/22/21 22:47 Active Telemetry Q6H Care 10/22/21 22:47 Active Weight,Daily 0600 Care 10/22/21 22:47 Active Consistent Carbohydrate Diet 1800 Calorie Diet 10/23/21 Breakfast Active CHEST 1 VIEW (PORTABLE) Stat Exams 10/22/21 19:51 Completed BLOOD COMPONENT REQUEST Stat Lab 10/23/21 Completed BLOOD CULTURE Stat Lab 10/22/21 20:12 Received CBC AM.LAB Lab 10/23/21 04:20 Completed CBC W DIFF Stat Lab 10/22/21 20:10 Results CMP AM.LAB Lab 10/23/21 04:20 Completed CMP Stat Lab 10/22/21 20:10 Completed COVID/FLU/RSV Panel Stat Lab 10/22/21 21:30 Completed Lactic Acid Stat Lab 10/22/21 20:20 Completed Lactic Acid Stat Lab 10/22/21 22:25 Completed Manual Differential NC Stat Lab 10/22/21 20:10 Results NT PRO BNP Stat Lab 10/22/21 20:10 Completed Pathologist Review Stat Lab 10/22/21 20:10 Results TROPONIN Q4H Lab 10/22/21 20:10 Completed TROPONIN Q4H Lab 10/23/21 00:10 Completed TROPONIN Q4H Lab 10/23/21 04:20 Completed TYPE AND SCREEN Stat Lab 10/23/21 Completed UA W/RFX CULTURE Stat Lab 10/23/21 09:49 Completed Acetaminophen 500 mg [Tylenol Extra Strength 500 mg* Med 10/23/21 00:39 Active ] 500 mg PO Q4H PRN PRN Albuterol Common Canister [Ventolin Common Canister* Med 10/23/21 07:20 Active ] 2 puff IH QID PRN PRN Albuterol/Ipratropium 3ml Neb* [DUONEB 0.5-3 MG/3 ml Med 10/22/21 20:10 Discontinued Neb] 3 ml IH .STK-MED ONE Albuterol/Ipratropium 3ml Neb* [DUONEB 0.5-3 MG/3 ml Med 10/23/21 03:00 Active Neb] 3 ml IH Q4HRT Albuterol/Ipratropium 3ml Neb* [DUONEB 0.5-3 MG/3 ml Med 10/22/21 19:53 D iscontinued Neb] 3 ml IH STAT ONE Budesonide 0.5 mg/2 ml [Pulmicort 0.5 mg/2 ml Med 10/23/21 10:00 Discontinued Respules] 0.5 mg IH BID Budesonide 0.5 mg/2 ml [Pulmicort 0.5 mg/2 ml Med 10/23/21 19:00 Active Respules] 0.5 mg IH BIDRT Clonazepam [Klonopin] Med 10/23/21 00:51 Active 2 mg PO BID D5w 100 ml [D5w 100ML Mini Bag 100 ML] 100 ml Med 10/22/21 21:54 Discontinued IV UD D5w 100 ml [D5w 100ML Mini Bag 100 ML] 100 ml Med 10/22/21 21:57 Discontinued IV UD Doxycycline Hyclate 100 mg [Vibramycin 100 mg] Med 10/22/21 21:53 Discontinued 100 mg IV .STK-MED ONE Doxycycline Hyclate 100 mg [Vibramycin 100 mg] Med 10/22/21 22:00 Active 100 mg D5w 100 ml Mini-Bag Plus [Dextrose 5%/Water IV Soln. 100ML PLUS BAG] 100 ml IV Q12HT Famotidine 20 mg [Pepcid 20 MG] Med 10/23/21 00:51 Active 20 mg PO BID Fluticasone Propionate [Flonase NASAL] Med 10/23/21 00:52 Active 1 gm NS BID Fluticasone/Salmeterol 115/ [Advair Hfa 115/ Common Med 10/23/21 08:00 Active canister*] 2 puff IH BIDRT Gabapentin [Neurontin ] Med 10/23/21 10:00 Active 1,200 mg PO QAM Gabapentin [Neurontin ] Med 10/23/21 01:14 Discontinued 2,400 mg .ROUTE .STK-MED ONE Gabapentin [Neurontin ] Med 10/23/21 00:52 Active 2,400 mg PO HS Isosorbide Mononitrate 30 mg [Imdur 30 MG] Med 10/23/21 10:00 Active 30 mg PO DAILY Levothyroxine Sodium 25 Mcg [Synthroid 25 Mcg] Med 10/23/21 10:00 Active 25 mcg PO DAILY Methylprednis Sod Succ 125 mg* [solu-MEDROL] Med 10/22/21 20:03 Discontinued 125 mg .ROUTE .STK-MED ONE Methylprednis Sod Succ 125 mg* [solu-MEDROL] Med 10/23/21 00:26 Discontinued 125 mg .ROUTE .STK-MED ONE Methylprednis Sod Succ 125 mg* [solu-MEDROL] Med 10/23/21 06:22 Discontinued 125 mg .ROUTE .STK-MED ONE Methylprednis Sod Succ 125 mg* [solu-MEDROL] 125 mg Med 10/22/21 19:53 Discontinued Water For Injection,Sterile [Sterile H2O 10 ml] 2 ml IV STAT Methylprednis Sod Succ 125 mg* [solu-MEDROL] 60 mg Med 10/23/21 00:00 Di scontinued Water For Injection,Sterile [Sterile H2O 10 ml] 2 ml IV Q6HT NaCl 0.9% 500 ml [Sodium Chloride 0.9% 500 ML] 500 ml Med 10/23/21 09:45 Active IV 50 mls/hr Nicotine 21 mg [Nicoderm CQ 21 MG] Med 10/23/21 10:00 Active 21 mg TOP DAILY Nitroglycerin 0.4 mg Tablet [Nitrostat 0.4 MG Tablet Med 10/23/21 07:20 Active ] 0.4 mg SL UD PRN PANTOPRAZOLE 40 mg Tablet [Protonix 40MG Tablet] Med 10/23/21 10:00 Active 40 mg PO DAILY Prednisone 10 mg [Deltasone 10 mg] Med 10/23/21 10:00 Active 10 mg PO BID Quetiapine Fumarate 100 mg [Seroquel 100 MG] Med 10/23/21 00:53 Active 200 mg PO BID Sertraline HCl 50 mg [Zoloft 50 mg Tablet] Med 10/23/21 10:00 Active 200 mg PO DAILY Theophylline Anhydrous [Theophylline ER 24Hr] Med 10/23/21 10:00 Active 300 mg PO DAILY Tizanidine HCl 4 mg [Zanaflex 4 MG] Med 10/23/21 00:54 Active 4 mg PO TID Vancomycin/Water For Inj (Peg) [Vancomycin 1 Gram/200 Med 10/22/21 22:47 Discontinued ml Bag] 1 gm in 200 ml IV Q24H Vancomycin/Water For Inj (Peg) [Vancomycin 1 Gram/200 Med 10/23/21 22:00 Active ml Bag] 1 gm in 200 ml IV QPM Vancomycin/Water For Inj (Peg) [Vancomycin 1 Gram/200 Med 10/22/21 19:53 Discontinued ml Bag] 1 gm in 200 ml IV STAT Vancomycin/Water For Inj (Peg) [Vancomycin 1 Gram/200 Med 10/22/21 20:03 Discontinued ml Bag] 1 gm in 200 ml IV UD Water For Injection,Sterile [Sterile H2O 10 ml] Med 10/22/21 20:03 Discontinued 10 ml IJ .STK-MED ONE Water For Injection,Sterile [Sterile H2O 10 ml] Med 10/23/21 00:26 Discontinued 10 ml IJ .STK-MED ONE Oxygen Nasal Cannula 3 lpm RT 10/22/21 23:48 Active Pulse Oximetry .spot check RT 10/22/21 22:47 Active Respiratory Therapy Assessment DAILY RT 10/22/21 20:27 Active Code(s): J44.1 - CHRONIC OBSTRUCTIVE PULMONARY DISEASE W (ACUTE) EXACERBATION (2) Shortness of breath Current Visit: Yes Status: Acute Code(s): R06.02 - SHORTNESS OF BREATH (3) Symptomatic anemia Current Visit: No Status: Acute Code(s): D64.9 - ANEMIA, UNSPECIFIED (4) Anemia associated with nutritional deficiency Current Visit: No Status: Chronic Code(s): D53.9 - NUTRITIONAL ANEMIA, UNSPECIFIED
[2021-10-23 18:33] LABS: Hematocrit 33.4 % (35-47); Hemoglobin 9.4 g/dL (12.0-16.0)
[2021-10-23] MEDS: PULMICORT 0.5 MG/2 ML RESPULES IH SCH (18:33)
[2021-10-23] MEDS ORDERED: VANCOMYCIN 1 GRAM/200 ML BAG 1 GM/200 ML PIGGYBACK IV SCH (22:00)
[2021-10-23] MEDS ORDERED: NON-FORMULARY ITEM (Gabapentin [Neurontin] 800 MG Tablet) PO SCH (22:00)
[2021-10-24] MEDS: DUONEB 0.5-3 MG/3 ml Neb IH SCH ×3 (03:03→11:26)
[2021-10-24 05:28] LABS: Hematocrit 30.7 % (35-47); Hemoglobin 8.8 g/dL (12.0-16.0); Mean Cell Volume 82.3 fL (78-100); Mean Corpuscular Hemoglobin 23.6 pg (26-32); Mean Corpuscular Hgb Concent. 28.7 g/dL (32-36); Platelet Count 348 x10^3/uL (150-450); Red Blood Count 3.73 x10^6/uL (4.1-5.4); Red Cell Distribution Width 17.9 % (11.5-14.0); White Blood Count 16.8 x10^3/uL (4.0-10.5)
[2021-10-24 05:52] LABS: ALBUMIN 3.3 g/dL (3.5-5.0); ALKALINE PHOSPHATASE 69 U/L (38-126); ANION GAP 6.8 MEQ/L (5-15); BLOOD UREA NITROGEN 19 mg/dL (7-17); CHLORIDE 104 mmol/L (98-107); Calcium 8.5 mg/dL (8.4-10.2); Carbon Dioxide 31 mmol/L (22-30); Creatinine 1 0.83 mg/dL (0.52-1.04); EST GLOMERULAR FILTRATION RATE > 60.0 ML/MIN; Glucose 119 mg/dL (74-106); Potassium 3.8 mmol/L (3.5-5.1); SGOT/AST 15 U/L (14-36); SGPT/ALT 14 U/L (0-35); SODIUM 138 mmol/L (137-145)
[2021-10-24] MEDS: PULMICORT 0.5 MG/2 ML RESPULES IH SCH (07:07)
--- NOTE | 2021-10-24 07:33 | PCM.NOTE ---
Date and Time: 10/24/21730 Subjective Assessment: doing better - Review of Systems Constitutional: No Fever, No Chills Eyes: No Symptoms Ears, Nose, & Throat: No Symptoms Respiratory: No Cough, No Short Of Breath Cardiac: No Chest Pain, No Edema, No Syncope Abdominal/Gastrointestinal: No Abdominal Pain, No Nausea, No Vomiting, No Diarrhea Genitourinary Symptoms: No Dysuria Musculoskeletal: No Back Pain, No Neck Pain Skin: No Rash Neurological: No Dizziness, No Focal Weakness, No Sensory Changes Psychological: No Symptoms Endocrine: No Symptoms Hematologic/Lymphatic: No Symptoms Immunological/Allergic: No Symptoms Objective Exam General Appearance: no apparent distress, alert Neurologic Exam: alert, oriented x 3, cooperative, normal mood/affect, nml cerebellar function, sensation nml, No motor deficits Skin Exam: normal color, warm, dry Eye Exam: PERRL, EOMI, eyes nml inspection Ears, Nose, Throat Exam: normal ENT inspection, pharynx normal, moist mucous membranes Neck Exam: normal inspection, non-tender, supple, full range of motion Respiratory Exam: normal breath sounds, lungs clear, No respiratory distress Cardiovascular Exam: regular rate/rhythm, normal heart sounds Gastrointestinal/Abdomen Exam: soft, No tenderness, No mass Extremity Exam: normal inspection, normal range of motion Back Exam: normal inspection, normal range of motion, No CVA tenderness, No vertebral tenderness Pelvic Exam: deferred Rectal Exam: deferred OBJECTIVE DATA Vital Signs: Vital Signs - 24 hr Temp Pulse Resp BP Pulse Ox 10/24/21 07:12 80 18 99 10/24/21 04:10 97.0 F 86 24 114/55 97 10/24/21 03:03 98 H 18 98 10/23/21 23:46 97.8 F 105 H 20 114/57 100 10/23/21 22:29 92 H 21 97 10/23/21 19:49 97.8 F 100 H 22 138/63 99 10/23/21 18:33 100 H 22 99 10/23/21 16:00 97.7 F 99 H 19 141/64 97 10/23/21 14:42 103 H 22 97 10/23/21 12:00 97.8 F 99 H 21 119/62 100 10/23/21 10:34 98 H 22 96 10/23/21 08:00 96.1 F 71 23 121/58 98 Pain Assessment - Last Documented Pain Intensity 0 Pain Scale Used FLACC Intake and Output: Intake & Output 10/21/21 10/22/21 10/23/21 10/24/21 11:59 11:59 11:59 11:59 Intake Total 420 2534 Output Total 1000 500 Balance -580 4 Weight 74.9 kg Lab Results: Lab Results-Last 24 Hours 10/23/21 10/23/21 10/23/21 Range/Units 09:49 10:28 18:05 WBC (4.0-10.5) x10^3/uL RBC (4.1-5.4) x10^6/uL Hgb 9.4 L D (12.0-16.0) g/dL Hct 33.4 L (35-47) % MCV (78-100) fL MCH (26-32) pg MCHC (32-36) g/dL RDW (11.5-14.0) % Plt Count (150-450) x10^3/uL MPV (7.5-11.0) fL Sodium (137-145) mmol/L Potassium (3.5-5.1) mmol/L Chloride (98-107) mmol/L Carbon Dioxide (22-30) mmol/L Anion Gap (5-15) MEQ/L BUN (7-17) mg/dL Creatinine (0.52-1.04) mg/dL Estimated GFR ML/MIN Glucose (74-106) mg/dL Calcium (8.4-10.2) mg/dL Total Bilirubin (0.2-1.3) mg/dL AST (14-36) U/L ALT (0-35) U/L Alkaline Phosphatase (38-126) U/L Serum Total Protein (6.3-8.2) g/dL Albumin (3.5-5.0) g/dL Urinalys Dipstick Clnc MAIN LAB Urine Color YELLOW (YELLOW) Urine Appearance CLEAR (CLEAR) Urine pH 5.5 (5-6) Ur Specific [place] >=1.030 (1.005-1.025) POC Urine Protein Conf NEGATIVE (Negative) Urine Ketones NEGATIVE (NEGATIVE) Urine Nitrite NEGATIVE (NEGATIVE) Urine Bilirubin NEGATIVE (NEGATIVE) Urine Urobilinogen 0.2 (0-1) mg/dL Urine Leukocytes NEGATIVE (NEGATIVE) Urine WBC (Auto) 0-2 (0-5) /HPF Urine RBC (Auto) NONE (0-2) /HPF U Epithel Cells (Auto) RARE (FEW) /HPF Urine Bacteria (Auto) NONE (NEGATIVE) /HPF Urine RBC NEGATIVE (0-5) [place]o/ul Urine Mucus (Auto) SLIGHT (NEGATIVE) /HPF Ur Culture Indicated? NO Urine Glucose 250 (NEGATIVE) mg/dL ABO Group Rh Factor Antibody Screen (NEGATIVE) Crossmatch COMPATIBLE (COMPATIBLE) 10/23/21 10/24/21 10/24/21 Range/Units Unknown 04:30 04:30 WBC 16.8 H (4.0-10.5) x10^3/uL RBC 3.73 L (4.1-5.4) x10^6/uL Hgb 8.8 L (12.0-16.0) g/dL Hct 30.7 L (35-47) % MCV 82.3 (78-100) fL MCH 23.6 L (26-32) pg MCHC 28.7 L (32-36) g/dL RDW 17.9 H (11.5-14.0) % Plt Count 348 (150-450) x10^3/uL MPV 11.0 (7.5-11.0) fL Sodium 138 (137-145) mmol/L Potassium 3.8 (3.5-5.1) mmol/L Chloride 104 (98-107) mmol/L Carbon Dioxide 31 H (22-30) mmol/L Anion Gap 6.8 (5-15) MEQ/L BUN 19 H (7-17) mg/dL Creatinine 0.83 (0.52-1.04) mg/dL Estimated GFR > 60.0 ML/MIN Glucose 119 H (74-106) mg/dL Calcium 8.5 (8.4-10.2) mg/dL Total Bilirubin 0.20 (0.2-1.3) mg/dL AST 15 (14-36) U/L ALT 14 (0-35) U/L Alkaline Phosphatase 69 (38-126) U/L Serum Total Protein 6.0 L (6.3-8.2) g/dL Albumin 3.3 L (3.5-5.0) g/dL Urinalys Dipstick Clnc Urine Color (YELLOW) Urine Appearance (CLEAR) Urine pH (5-6) Ur Specific [place] (1.005-1.025) POC Urine Protein Conf (Negative) Urine Ketones (NEGATIVE) Urine Nitrite (NEGATIVE) Urine Bilirubin (NEGATIVE) Urine Urobilinogen (0-1) mg/dL Urine Leukocytes (NEGATIVE) Urine WBC (Auto) (0-5) /HPF Urine RBC (Auto) (0-2) /HPF U Epithel Cells (Auto) (FEW) /HPF Urine Bacteria (Auto) (NEGATIVE) /HPF Urine RBC (0-5) Erasto/ul Urine Mucus (Auto) (NEGATIVE) /HPF Ur Culture Indicated? Urine Glucose (NEGATIVE) mg/dL ABO Group A Rh Factor POSITIVE Antibody Screen NEGATIVE (NEGATIVE) Crossmatch COMPATIBLE (COMPATIBLE) Radiology Exams: Radiology Procedures Category Date Time Status CHEST 1 VIEW (PORTABLE) Stat Exams 10/22/21 19:51 Completed Assessment/Plan (1) COPD exacerbation Current Visit: Yes Status: Acute Assessment & Plan: improved Chief Complaint Diagnosis shortness of breath for 2-3 days Allergies Allergy/AdvReac Type Severity Reaction Status Date / Time morphine Allergy Severe Fainting Verified 10/22/21 19:40 oxycodone Allergy Shortness Verified 10/22/21 19:40 of Breath Penicillins Allergy Verified 10/22/21 19:40 oxymorphone AdvReac Severe Fainting Verified 10/22/21 19:40 [place] AdvReac Intermediate Headache Verified 10/22/21 19:40 bupropion HCl AdvReac Mild Hives Verified 10/22/21 19:40 [From Wellbutrin] Vital Signs (Last 24 hours) Temp Pulse Resp BP Pulse Ox 10/24/21 07:12 80 18 99 10/24/21 04:10 97.0 F 86 24 114/55 97 10/24/21 03:03 98 H 18 98 10/23/21 23:46 97.8 F 105 H 20 114/57 100 10/23/21 22:29 92 H 21 97 10/23/21 19:49 97.8 F 100 H 22 138/63 99 10/23/21 18:33 100 H 22 99 10/23/21 16:00 97.7 F 99 H 19 141/64 97 10/23/21 14:42 103 H 22 97 10/23/21 12:00 97.8 F 99 H 21 119/62 100 08/25/22 10:34 98 H 22 96 10/23/21 08:00 96.1 F 71 23 121/58 98 Home Medications Medication Instructions Recorded Confirmed Last Taken Type Omeprazole 40 mg PO DAILY 10/22/21 10/22/21 Unknown History Nicotine 21 mg [Martina CQ 21 21 mg TOP DAILY 10/23/21 10/23/21 Unknown History MG] Current Medications Generic Name Dose Route Start Last Admin Trade Name Freq PRN Reason Stop Dose Admin Acetaminophen 500 mg 10/23/21 00:39 10/23/21 01:19 Acetaminophen 500 Mg Tablet PO 11/22/21 00:38 500 mg Q4H PRN PRN Administration PAIN AND/OR FEVER Albuterol Sulfate 2 puff 10/23/21 07:20 Albuterol Common Canister Inhaler 11/22/21 07:19 QID PRN PRN SHORTNESS OF BREATH Albuterol/Ipratropium 3 ml 10/23/21 03:00 10/24/21 07:07 Ipratropium/Albuterol Sulfate 3 Ml Ampul.Neb 11/22/21 02:59 3 ml Q4HRT VALERY Administration Budesonide 0.5 mg 10/23/21 19:00 10/24/21 07:07 Budesonide 0.5 Mg/2 Ml Ampul.Neb. 11/22/21 09:59 0.5 mg BIDRT VALERY Administration Clonazepam 2 mg 10/23/21 00:51 10/23/21 21:20 Clonazepam 2 Mg Tablet PO 11/22/21 00:50 2 mg BID VALERY Administration Famotidine 20 mg 10/23/21 00:51 10/23/21 21:22 Famotidine 20 Mg Tablet PO 11/22/21 00:50 20 mg BID VALERY Administration Fluticasone Propionate 1 gm 10/23/21 00:52 10/23/21 21:33 Fluticasone Propionate 16 Gm Bottle Nasal [place] 11/22/21 00:51 1 gm BID VALERY Administration Gabapentin 2,400 mg 10/23/21 00:52 10/23/21 21:21 Gabapentin 300 Mg Capsule PO 11/22/21 00:51 2,400 mg HS VALERY Administration Gabapentin 1,200 mg 10/23/21 10:00 10/23/21 09:19 Gabapentin 400 Mg Capsule PO 11/22/21 09:59 1,200 mg QAM VALERY Administration Doxycycline Hyclate 100 mg/ 100 mls @ 100 mls/hr 10/22/21 22:00 10/23/21 21:14 Dextrose IV 11/21/21 21:59 100 mls/hr Q12HT VALERY Administration Vancomycin HCl 1 gm in 200 mls @ 133.333 mls/hr 10/23/21 22:00 10/23/21 21:24 Vancomycin 1 Gram/200 Ml Bag IV 11/21/21 22:46 133.333 mls/hr QPM VALERY Administration Sodium Chloride 500 mls @ 50 mls/hr 10/23/21 09:45 10/23/21 10:54 Sodium Chloride 0.9% 500 Ml IV 11/22/21 09:44 50 mls/hr .Q10H VALERY Administration Isosorbide Mononitrate 30 mg 10/23/21 10:00 10/23/21 09:18 Isosorbide Mononitrate 30 Mg Tab PO 11/22/21 09:59 30 mg DAILY VALERY Administration Levothyroxine Sodium 25 mcg 10/23/21 10:00 10/23/21 09:19 Levothyroxine Sodium 25 Mcg Tablet PO 11/22/21 09:59 25 mcg DAILY VALERY Administration Nicotine 21 mg 10/23/21 10:00 10/23/21 09:20 Nicotine 21 Mg/Patch Patch TOP 11/22/21 09:59 21 mg DAILY VALERY Administration Nitroglycerin 0.4 mg 10/23/21 07:20 Nitroglycerin 0.4 Mg Tablet Bottle SL 11/22/21 07:19 UD PRN CHEST PAIN Pantoprazole Sodium 40 mg 10/23/21 10:00 10/23/21 09:19 Protonix (Pantoprazole) 40 Mg Tablet PO 11/22/21 09:59 40 mg DAILY VALERY Administration Prednisone 10 mg 10/23/21 10:00 10/23/21 21:22 Prednisone 10 Mg Tablet PO 11/22/21 09:59 10 mg BID VALERY Administration Quetiapine Fumarate 200 mg 10/23/21 00:53 10/23/21 21:20 Quetiapine Fumarate 100 Mg Tablet PO 11/22/21 00:52 200 mg BID VALERY Administration Fluticasone/Salmeterol 2 puff 10/23/21 08:00 Fluticasone/Salmeterol 115/21 - 120 Puff Common Canister 11/22/21 07:59 BIDRT VALERY Sertraline HCl 200 mg 10/23/21 10:00 10/23/21 09:18 Sertraline Hcl 50 Mg Tab PO 11/22/21 09:59 200 mg DAILY VALERY Administration Theophylline 300 mg 10/23/21 10:00 10/23/21 09:20 Theophylline Anhydrous 400 Mg Tab.Er.24hr Tablet PO 11/22/21 09:59 300 mg DAILY VALERY Administration Tizanidine HCl 4 mg 10/23/21 00:54 10/23/21 21:22 Tizanidine Hcl 4 Mg Tablet PO 11/22/21 00:53 4 mg TID VALERY Administration Discontinued Medications Generic Name Dose Route Start Last Admin Trade Name Freq PRN Reason Stop Dose Admin Albuterol/Ipratropium 3 ml 10/22/21 19:53 10/22/21 20:05 Ipratropium/Albuterol Sulfate 3 Ml Ampul.Neb 10/22/21 19:54 3 ml STAT ONE Administration Albuterol/Ipratropium Confirm 10/22/21 20:10 Ipratropium/Albuterol Sulfate 3 Ml Ampul.Neb Administered 10/22/21 20:11 Dose 3 ml IH .STK-MED ONE Budesonide 0.5 mg 10/23/21 10:00 10/23/21 06:35 Budesonide 0.5 Mg/2 Ml Ampul.Neb. 11/22/21 09:59 0.5 mg BID VALERY Administration Methylprednisolone Sodium 0 mg 10/22/21 19:53 10/22/21 20:04 Succinate 125 mg/ Sterile IV 10/22/21 19:54 125 mg Water 2 ml STAT ONE Administration Methylprednisolone Sodium 0 mg 10/23/21 00:00 10/23/21 06:24 Succinate 60 mg/ Sterile Water IV 11/22/21 00:00 60 mg 2 ml Q6HT VALERY Administration Doxycycline Hyclate Confirm 10/22/21 21:53 Doxycycline Hyclate 100 Mg/Vial Injection Administered 10/22/21 21:54 Dose 100 mg IV .STK-MED ONE Gabapentin Confirm 10/23/21 01:14 Gabapentin 400 Mg Capsule Administered 10/23/21 01:15 Dose 2,400 mg .ROUTE .STK-MED ONE Vancomycin HCl 1 gm in 200 mls @ 125 mls/hr 10/22/21 19:53 10/22/21 21:59 Vancomycin 1 Gram/200 Ml Bag IV 10/22/21 21:28 Infused STAT ONE Infusion Vancomycin HCl Confirm 10/22/21 20:03 Vancomycin 1 Gram/200 Ml Bag Administered 10/22/21 20:04 Dose 1 gm in 200 mls @ ud IV .STK-MED ONE Dextrose Confirm 10/22/21 21:54 D5w 100ml Mini Bag 100 Ml Administered 10/22/21 21:55 Dose 100 mls @ ud IV .STK-MED ONE Dextrose Confirm 10/22/21 21:57 D5w 100ml Mini Bag 100 Ml Administered 10/22/21 21:58 Dose 100 mls @ ud IV .STK-MED ONE Vancomycin HCl 1 gm in 200 mls @ 125 mls/hr 10/22/21 22:47 10/23/21 05:10 Vancomycin 1 Gram/200 Ml Bag IV 11/21/21 22:46 Not Given Q24H VALERY Methylprednisolone Sodium Succinate Confirm 10/22/21 20:03 Methylprednis Sod Succ 125 Mg/2 Ml Vial Administered 10/22/21 20:04 Dose 125 mg .ROUTE .STK-MED ONE Methylprednisolone Sodium Succinate Confirm 10/23/21 00:26 Methylprednis Sod Succ 125 Mg/2 Ml Vial Administered 10/23/21 00:27 Dose 125 mg .ROUTE .STK-MED ONE Methylprednisolone Sodium Succinate Confirm 10/23/21 06:22 Methylprednis Sod Succ 125 Mg/2 Ml Vial Administered 10/23/21 06:23 Dose 125 mg .ROUTE .STK-MED ONE Sterile Water Confirm 10/22/21 20:03 Water For Injection,Sterile 10 Ml Vial Administered 10/22/21 20:04 Dose 10 ml IJ .STK-MED ONE Sterile Water Confirm 10/23/21 00:26 Water For Injection,Sterile 10 Ml Vial Administered 10/23/21 00:27 Dose 10 ml IJ .STK-MED ONE Intake & Output (Last 24 hours) 10/21/21 10/22/21 10/23/21 10/24/21 11:59 11:59 11:59 11:59 Intake Total 420 2534 Output Total 1000 500 Balance -580 2034 Weight 74.9 kg Laboratory Results (Last 24 hours) 10/24/21 10/24/21 10/23/21 04:30 04:30 Unknown WBC 16.8 H RBC 3.73 L Hgb 8.8 L Hct 30.7 L MCV 82.3 MCH 23.6 L MCHC 28.7 L RDW 17.9 H Plt Count 348 MPV 11.0 Sodium 138 Potassium 3.8 Chloride 104 Carbon Dioxide 31 H Anion Gap 6.8 BUN 19 H Creatinine 0.83 Estimated GFR > 60.0 Glucose 119 H Calcium 8.5 Total Bilirubin 0.20 AST 15 ALT 14 Alkaline Phosphatase 69 Serum Total Protein 6.0 L Albumin 3.3 L Urinalys Dipstick Clnc Urine Color Urine Appearance Urine pH Ur Specific [place] POC Urine Protein Conf Urine Ketones Urine Nitrite Urine Bilirubin Urine Urobilinogen Urine Leukocytes Urine WBC (Auto) Urine RBC (Auto) U Epithel Cells (Auto) Urine Bacteria (Auto) Urine RBC Urine Mucus (Auto) Ur Culture Indicated? Urine Glucose ABO Group A Rh Factor POSITIVE Antibody Screen NEGATIVE Crossmatch COMPATIBLE 10/23/21 10/23/21 10/23/21 18:05 10:28 09:49 WBC RBC Hgb 9.4 L D Hct 33.4 L MCV MCH MCHC RDW Plt Count MPV Sodium Potassium Chloride Carbon Dioxide Anion Gap BUN Creatinine Estimated GFR Glucose Calcium Total Bilirubin AST ALT Alkaline Phosphatase Serum Total Protein Albumin Urinalys Dipstick Clnc MAIN LAB Urine Color YELLOW Urine Appearance CLEAR Urine pH 5.5 Ur Specific [place] >=1.030 POC Urine Protein Conf NEGATIVE Urine Ketones NEGATIVE Urine Nitrite NEGATIVE Urine Bilirubin NEGATIVE Urine Urobilinogen 0.2 Urine Leukocytes NEGATIVE Urine WBC (Auto) 0-2 Urine RBC (Auto) NONE U Epithel Cells (Auto) RARE Urine Bacteria (Auto) NONE Urine RBC NEGATIVE Urine Mucus (Auto) SLIGHT Ur Culture Indicated? NO Urine Glucose 250 ABO Group Rh Factor Antibody Screen Crossmatch COMPATIBLE Orders (Last 24 hours) Category Date Time Status Consistent Carbohydrate Diet 1800 Calorie Diet 10/23/21 Breakfast Active CBC AM.LAB Lab 10/24/21 04:30 Completed CMP AM.LAB Lab 10/24/21 04:30 Completed HEMOGLOBIN AND HEMATOCRIT Routine Lab 10/23/21 18:05 Completed UA W/RFX CULTURE Stat Lab 10/23/21 09:49 Completed Albuterol Common Canister [Ventolin Common Canister* Med 10/23/21 07:20 Active ] 2 puff IH QID PRN PRN Budesonide 0.5 mg/2 ml [Pulmicort 0.5 mg/2 ml Med 10/23/21 10:00 Discontinued Respules] 0.5 mg IH BID Budesonide 0.5 mg/2 ml [Pulmicort 0.5 mg/2 ml Med 10/23/21 19:00 Active Respules] 0.5 mg IH BIDRT Fluticasone/Salmeterol 115/ [Advair Hfa 115/21 Common Med 10/23/21 08:00 Active canister*] 2 puff IH BIDRT Gabapentin [Neurontin ] Med 10/23/21 10:00 Active 1,200 mg PO QAM Isosorbide Mononitrate 30 mg [Imdur 30 MG] Med 10/23/21 10:00 Active 30 mg PO DAILY Levothyroxine Sodium 25 Mcg [Synthroid 25 Mcg] Med 10/23/21 10:00 Active 25 mcg PO DAILY NaCl 0.9% 500 ml [Sodium Chloride 0.9% 500 ML] 500 ml Med 10/23/21 09:45 Active IV 50 mls/hr Nicotine 21 mg [Nicoderm CQ 21 MG] Med 10/23/21 10:00 Active 21 mg TOP DAILY Nitroglycerin 0.4 mg Tablet [Nitrostat 0.4 MG Tablet Med 10/23/21 07:20 Active ] 0.4 mg SL UD PRN PANTOPRAZOLE 40 mg Tablet [Protonix 40MG Tablet] Med 10/23/21 10:00 Active 40 mg PO DAILY Prednisone 10 mg [Deltasone 10 mg] Med 10/23/21 10:00 Active 10 mg PO BID Sertraline HCl 50 mg [Zoloft 50 mg Tablet] Med 10/23/21 10:00 Active 200 mg PO DAILY Theophylline Anhydrous [Theophylline ER 24Hr] Med 10/23/21 10:00 Active 300 mg PO DAILY Vancomycin/Water For Inj (Peg) [Vancomycin 1 Gram/200 Med 10/23/21 22:00 Active ml Bag] 1 gm in 200 ml IV QPM Incentive Spirometry UD RT 10/23/21 16:01 Completed Code(s): J44.1 - CHRONIC OBSTRUCTIVE PULMONARY DISEASE W (ACUTE) EXACERBATION (2) Shortness of breath Current Visit: Yes Status: Resolved Code(s): R06.02 - SHORTNESS OF BREATH (3) Symptomatic anemia Current Visit: No Status: Chronic Code(s): D64.9 - ANEMIA, UNSPECIFIED (4) Anemia associated with nutritional deficiency Current Visit: No Status: Chronic Code(s): D53.9 - NUTRITIONAL ANEMIA, UNSPECIFIED
[2021-10-24] MEDS: Nicoderm CQ 21 MG TOP SCH (10:15)
[2021-10-24] MEDS: Neurontin PO SCH (10:15)
[2021-10-24] MEDS: ZOLOFT 50 MG TABLET PO SCH (10:15)
[2021-10-24] MEDS: Pepcid 20 MG PO SCH (10:18)
[2021-10-24] MEDS: SYNTHROID 25 MCG PO SCH (10:18)
[2021-10-24] MEDS: THEOPHYLLINE ER 24HR PO SCH (10:18)
[2021-10-24] MEDS: Flonase NASAL NS SCH (10:19)
[2021-10-24] MEDS: Zanaflex 4 MG PO SCH (10:19)
[2021-10-24] MEDS: DELTASONE 10 MG PO SCH (10:19)
[2021-10-24] MEDS: Imdur 30 MG PO SCH (10:20)
[2021-10-24] MEDS: Seroquel 100 MG PO SCH (10:20)
[2021-10-24] MEDS: KLONOPIN PO SCH (10:20)
[2021-10-24] MEDS: Protonix 40MG Tablet PO SCH (10:21)
[2021-10-24] MEDS: VIBRAMYCIN 100 MG*** 100 MG in Dextrose 5%/Water IV Soln. 100ML PLUS BAG 100 ML IV SCH ×2 (10:21→11:57)
[2021-10-24] MEDS ORDERED: Levofloxacin 250MG Tablet PO ONE (11:25)
[2021-10-24 12:24] VITALS: BP 116/59; PULSE 96; O2SAT 98
[2021-10-25] MEDS ORDERED: Levofloxacin 250MG Tablet PO SCH (10:00)
== END 2021-10-24 13:20 | disposition home or self-care (01) ==
LOC: ED 19:31 → MED SURG 22:44
PROVIDERS: ADMIT General Practice; ATTEND General Practice
DX: J44.1 Chronic obstructive pulmonary disease with (acute) exacerbation (principal); R06.02 Shortness of breath; D53.9 Nutritional anemia, unspecified; R50.9 Fever, unspecified; I50.9 Heart failure, unspecified; I25.10 Atherosclerotic heart disease of native coronary artery without angina pectoris; E78.00 Pure hypercholesterolemia, unspecified; Z79.899 Other long term (current) drug therapy; Z20.828 Contact with and (suspected) exposure to other viral communicable diseases; Z99.81 Dependence on supplemental oxygen; Z72.0 Tobacco use
CPT/HCPCS: 0241U; 36000; 36415; 36430; 71045; 80053; 81015; 83605; 83880; 84484; 85014; 85018; 85025; 85027; 86850; 86900; 86901; 86922; 87040; 93005; 93041; 94640; 94760; 96365; 96374; 99285; G0378; P9016; J2930; A9270-GY; J3370

== ENCOUNTER 2022-12-02 20:18 | Observation (INO) | payer MEDICARE ==
[2022-12-02 22:19] LABS: Absolute Neutrophil Ct (ANC) 8.57 x10^3/uL (1.4-6.9); BASOPHIL % 0.5 % (0.0-0.4); Basophil (Absolute #) 0.05 x10^3/uL (0-0.4); Eosinophil % 0.1 % (0.00-5.0); Eosinophil (Absolute #) 0.01 x10^3/uL (0-0.5); Hematocrit 18.1 % (35-47); IMMATURE GRAN # 0.08 x10^3u/L (0.00-0.03); IMMATURE GRAN % 0.8 % (0.00-0.4); Lymphocyte (Absolute #) 0.93 x10^3/uL (1.0-4.6); Lymphocytes % 9.2 % (24.0-44.0); Mean Cell Volume 79.4 fL (78-100); Mean Corpuscular Hemoglobin 20.2 pg (26-32); Mean Corpuscular Hgb Concent. 25.4 g/dL (32-36); Mean Platelet Volume 9.4 fL (7.5-11.0); Monocyte (Absolute #) 0.48 x10^3/uL (0.0-1.3); Monocytes % 4.7 % (0.0-12.0); NUCLEATED RBC # 0.06 x10^3u/L (0.00-0.01); NUCLEATED RBC % 0.6 % (0.00-0.1); Neutrophil % 84.7 % (36.0-66.0); Platelet Count 432 x10^3/uL (150-450); Red Blood Count 2.28 x10^6/uL (4.1-5.4); Red Cell Distribution Width 22.4 % (11.5-14.0); White Blood Count 10.1 x10^3/uL (4.0-10.5)
[2022-12-02 22:23] LABS: Hemoglobin 4.6 g/dL (12.0-16.0)
[2022-12-02 22:34] LABS: ALBUMIN 3.8 g/dL (3.5-5.0); ALKALINE PHOSPHATASE 45 U/L (38-126); ANION GAP 11.5 MEQ/L (5-15); BLOOD UREA NITROGEN 8 mg/dL (7-17); CHLORIDE 105 mmol/L (98-107); Calcium 8.4 mg/dL (8.4-10.2); Carbon Dioxide 30 mmol/L (22-30); Creatinine 1 0.73 mg/dL (0.52-1.04); EST GLOMERULAR FILTRATION RATE > 60.0 ML/MIN; Glucose 193 mg/dL (74-106); Potassium 3.9 mmol/L (3.5-5.1); SGOT/AST 17 U/L (14-36); SGPT/ALT 14 U/L (0-35); SODIUM 142 mmol/L (137-145); Total Protein 6.3 g/dL (6.3-8.2)
[2022-12-02 22:35] LABS: INR 0.94 (0.8-3.0); PROTIME 10.3 SECONDS (9.4-12.5); PTT 21.2 SECONDS (25.1-36.5)
--- NOTE | 2022-12-02 22:39 | ERPHSYRPT ---
- History of Present Illness Source: patient, other (Son) Exam Limitations: other (Poor historian) Patient Subjective Stated Complaint: "I'm real sick. I've been sick for a while now. I am weak all over and feel so tired. I have a sore throat and just feel bad". Triage Nursing Assessment: Pt presents to ER with son complaining of generalized weakness, fatigue x 2 weeks. Pt is pale. States has hx of anemia and blood transfusions. Pt wears home oxygen. Saturations are WNL upon arrival. Denies shob. Pt is alert and oriented x 3. Appears weak. Complains of sore throat. S tates did vomit a couple days ago. States "just feels real sick". Physician History: 67 yo WF w lethargy x 2 wks. Pt has a h/o anemia w frequent transfusions. She denies melena/hematochezia/chest pain/abdominal pain/dysuria/hematuria. Pt is 3L O2 dependent and continues to smoke <1ppd/vapes THC. Timing/Duration: other (2 wks) Severity: mild Modifying Factors: Improves With: nothing Associated Symptoms: weakness Allergies/Adverse Reactions: morphine Allergy (Severe, Verified 12/02/22 21:34) Fainting oxycodone Allergy (Verified 12/02/22 21:34) Shortness of Breath Penicillins Allergy (Verified 12/02/22 21:34) oxymorphone Adverse Reaction (Severe, Verified 12/02/22 21:34) Fainting C[place]ut Adverse Reaction (Intermediate, Verified 12/02/22 21:34) Headache bupropion HCl [From Wellbutrin] Adverse Reaction (Mild, Verified 12/02/22 21:34) Hives Home Medications: Albuterol/Ipratropium Mdi [Combivent Inhaler] 1 puff IH QID 12/29/12 [History] Clonazepam 0.5 mg [Klonopin 0.5 MG] 2 mg PO BID 12/29/12 [History] Famotidine 20 mg [Pepcid 20 MG] 20 mg PO BID 12/29/12 [History] Fluticasone/Salmeterol Disc [Advair/Wixella 250-50 Diskus 14 Dose] 1 puff IH BID 12/29/12 [History] Sertraline HCl 100 mg [Zoloft 100 MG] 200 mg PO DAILY 12/17/13 [History] Isosorbide Mononitrate 30 mg [Imdur 30 MG] 30 mg PO DAILY 11/05/14 [History] Tizanidine HCl 4 mg [Zanaflex 4 MG] 4 mg PO TID 01/16/15 [History] Quetiapine Fumarate [Seroquel] 200 mg PO BID 10/17/15 [History] Nitroglycerin 0.4 mg Tablet [Nitrostat 0.4 MG Tablet] 0.4 mg SL UD PRN 11/15/15 [History] Albuterol Common Canister [Ventolin Common Canister] 2 puff IH QID PRN PRN 07/08/19 [History] Gabapentin 1,200 mg PO QAM 04/08/20 [History] Gabapentin [Neurontin] 2,400 mg PO HS 04/08/20 [History] Theophylline Anhydrous [Theophylline ER] 300 mg PO DAILY 12/23/20 [History] Fluticasone Propionate [Flonase NASAL] 1 spray NS BID 03/15/21 [History] Prednisone 20 mg [Deltasone 20 mg] 10 mg PO BID 03/15/21 [History] Albuterol/Ipratropium 3ml Neb* [DUONEB 0.5-3 MG/3 ml Neb] 3 ml IH Q4H 07/15/21 [History] Omeprazole 40 mg PO DAILY 10/22/21 [History] Nicotine 21 mg [Nicoderm CQ 21 MG] 21 mg TOP DAILY 10/23/21 [History] Hx Tetanus, Diphtheria Vaccination/Date Given: No Hx Influenza Vaccination/Date Given: No Hx Pneumococcal Vaccination/Date Given: No Immunizations Up to Date: No Travel Risk - International Travel Have you traveled outside of the country in past 3 weeks: No - Coronavirus Screening Are you exhibiting any of the following symptoms?: Yes Symptoms: Cough: New Onset, Headaches/Body Aches/Fatigue - Vaccine Status Have you recieved a Covid-19 vaccination: No - Vaccination Dates Comment: . - Review of Systems All Other Systems: Reviewed and Negative - Past Medical History Pertinent Past Medical History: Yes Neurological History: Migraines ENT History: No Pertinent History Cardiac History: Congestive Heart Failure, Coronary Artery Disease, High Cholesterol, Other Respiratory History: Asthma, Bronchitis, COPD, Pneumonia Endocrine Medical History: Hypothyroidism Musculoskeletal History: Arthritis, Osteoporosis GI Medical History: GERD, Hernia, Polyps History: No Pertinent History Psycho-Social History: Anxiety, Bipolar, Depression Female Reproductive Disorders: Fibroids Other Medical History: 2 LEAKY VALVES. BORDERLINE PERSONALITY DISORDER, PTSD, manic depressive. Anemia - Past Surgical History Past Surgical History: Yes Neuro Surgical History: No Pertinent History Cardiac: Cardiac Catheterization Respiratory: No Pertinent History Gastrointestinal: Other Genitourinary: No Pertinent History Musculoskeletal: Other Female Surgical History: Section Other Surgical History: ARM SURGERY-- left wrist laceration from a glass door, 2 c-sections, EGD with dilitation, colonoscopy, heart cath x 2 - Social History Smoking Status: Current every day smoker How long have you smoked: 40 years Exposure to second hand smoke: No Alcohol Use: Socially Drug Use: marijuana Patient Lives Alone: No Significant Family History: no pertinent family hx - Nursing Vital Signs Nursing Vital Signs: Initial Vital Signs Pulse Rate 98 H 12/02/22 21:23 Respiratory Rate 31 H 12/02/22 21:23 Blood Pressure 138/52 12/02/22 21:23 O2 Sat by Pulse Oximetry 100 12/02/22 21:23 Pain Scale Pain Intensity 5 Mildly tachypneic - Physical Exam General Appearance: no apparent distress Eye Exam: PERRL/EOMI, eyes nml inspection Ears, Nose, Throat Exam: normal ENT inspection, TMs normal, pharynx normal, moist mucous membranes Neck Exam: normal inspection, non-tender, supple, full range of motion, No meningismus, No mass, No Brudzinski, No Kernig's, No carotid bruit Respiratory Exam: airway intact, prolonged expirations, wheezing (Scattered wheezes B), No respiratory distress Cardiovascular Exam: regular rate/rhythm, normal heart sounds, normal peripheral pulses, capillary refill <2 sec, No murmur Gastrointestinal/Abdomen Exam: soft, normal bowel sounds, No tenderness Back Exam: normal inspection, normal range of motion, No CVA tenderness, No vertebral tenderness Extremity Exam: normal inspection, normal range of motion Neurologic Exam: alert, oriented x 3, cooperative, 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 as tested, nor mal mood/affect, nml cerebellar function, nml station & gait, sensation nml Skin Exam: normal color, warm, dry Lymphatic Exam: No adenopathy SpO2 Interpretation: normal SpO2: 100 O2 Delivery: Room Air - Course Nursing assessment & vital signs reviewed: Yes EKG Interpreted by Me: RATE (NSR/Rate 96/Normal QT-QTc/Artifact present/No acute ST segment changes) - Radiology Exams Chest X-ray Interpretation: Interpreted by me Ordered Tests: Active Orders 24 hr Category Date Time Status EKG-ER Only STAT Care 12/02/22 22:41 Completed CHEST 1 VIEW (PORTABLE) Stat Exams 12/02/22 22:41 Taken CBC W DIFF Stat Lab 12/02/22 22:16 Completed CMP Stat Lab 12/02/22 22:16 Completed PROTIME WITH INR Stat Lab 12/02/22 22:16 Completed PTT Stat Lab 12/02/22 22:16 Completed TROPONIN Q4H Lab 12/02/22 22:16 Completed TROPONIN Q4H Lab 12/03/22 01:59 Completed TROPONIN Q4H Lab 12/03/22 06:00 Ordered Medication Summary Generic Name Dose Route Start Last Admin Trade Name Freq PRN Reason Stop Dose Admin Acetaminophen 325 mg 12/03/22 00:33 Acetaminophen 325 Mg Tablet PO 01/02/23 00:32 Q4H PRN PRN PAIN, FEVER, HEADACHE Albuterol Sulfate 2 puff 12/03/22 00:31 Albuterol Common Canister Inhaler 01/02/23 00:30 QID PRN PRN SHORTNESS OF BREATH Albuterol/Ipratropium 3 ml 12/03/22 00:45 12/03/22 02:34 Ipratropium/Albuterol Sulfate 3 Ml Ampul.Neb 01/02/23 00:44 3 ml Q4H VALERY Administration Clonazepam 2 mg 12/03/22 10:00 Clonazepam 0.5 Mg Tablet PO 01/02/23 09:59 BID VALERY Fluticasone Propionate gm 12/03/22 10:00 Fluticasone Propionate 16 Gm Bottle Nasal [place] NS 01/02/23 09:59 BID VALERY Gabapentin 1,200 mg 12/03/22 10:00 Gabapentin 300 Mg Capsule PO 01/02/23 09:59 QAM VALERY Sodium Chloride 500 mls @ 50 mls/hr 12/03/22 01:15 12/03/22 01:19 Sodium Chloride 0.9% 500 Ml IV 01/02/23 01:14 50 mls/hr .Q10H VALERY Administration Isosorbide Mononitrate 30 mg 12/03/22 10:00 Isosorbide Mononitrate 30 Mg Tab PO 01/02/23 09:59 DAILY [facility] Levothyroxine Sodium 25 mcg 12/03/22 10:00 Levothyroxine Sodium 25 Mcg Tablet PO 01/02/23 09:59 DAILY [facility] Multivitamins Therapeutic 1 tab 12/03/22 10:00 Multivitamins,Therapeutic 1 Tab Tab PO 01/02/23 09:59 QAM [facility] Nicotine 21 mg 12/03/22 10:00 Nicotine 21 Mg/Patch Patch TOP 01/02/23 09:59 DAILY [facility] Nitroglycerin 0.4 mg 12/03/22 00:31 Nitroglycerin 0.4 Mg Tablet Bottle SL 01/02/23 00:30 UD PRN CHEST PAIN Non-Formulary Medication 1 puff 12/03/22 10:00 Albuterol/Ipratropium Mdi [Combivent Inhaler] IH 01/02/23 09:59 QID [facility] Non-Formulary Medication 2,400 mg 12/03/22 22:00 Gabapentin [Neurontin] PO 01/02/23 21:59 HS [facility] Non-Formulary Medication 200 mg 12/03/22 10:00 Sertraline Hcl 100 Mg [Zoloft 100 Mg] PO 01/02/23 09:59 DAILY [facility] Ondansetron HCl 4 mg 12/03/22 00:33 Ondansetron Hcl 4 Mg/2 Ml Vial IV 01/02/23 00:32 Q6H PRN PRN NAUSEA/VOMITING Pantoprazole Sodium 40 mg 12/03/22 10:00 Protonix (Pantoprazole) 40 Mg Tablet PO 01/02/23 09:59 DAILY [facility] Prednisone 10 mg 12/03/22 10:00 Prednisone 20 Mg Tablet PO 01/02/23 09:59 BID [facility] Quetiapine Fumarate 200 mg 12/03/22 10:00 Quetiapine Fumarate 100 Mg Tablet PO 01/02/23 09:59 BID [facility] Tizanidine HCl 4 mg 12/03/22 10:00 Tizanidine Hcl 4 Mg Tablet PO 01/02/23 09:59 TID [facility] Lab/Rad Data: Laboratory Result Diagrams 12/02/22 22:16 12/02/22 22:16 Laboratory Results 12/02/22 12/02/22 12/02/22 Range/Units 22:31 22:30 22:29 WBC (4.0-10.5) x10^3/uL RBC (4.1-5.4) x10^6/uL Hgb (12.0-16.0) g/dL Hct (35-47) % MCV (78-100) fL MCH (26-32) pg MCHC (32-36) g/dL RDW (11.5-14.0) % Plt Count (150-450) x10^3/uL MPV (7.5-11.0) fL Gran % (36.0-66.0) % Immature Gran % (Auto) (0.00-0.4) % Nucleat RBC Rel Count (0.00-0.1) % Eos # (Auto) (0-0.5) x10^3/uL Immature Gran # (Auto) (0.00-0.03) x10^3u/L Absolute Lymphs (auto) (1.0-4.6) x10^3/uL Absolute Monos (auto) (0.0-1.3) x10^3/uL Absolute Nucleated RBC (0.00-0.01) x10^3u/L Lymphocytes % (24.0-44.0) % Monocytes % (0.0-12.0) % Eosinophils % (0.00-5.0) % Basophils % (0.0-0.4) % Absolute Granulocytes (1.4-6.9) x10^3/uL Basophils # (0-0.4) x10^3/uL PT (9.4-12.5) SECONDS INR (0.8-3.0) APTT (25.1-36.5) SECONDS Sodium (137-145) mmol/L Potassium (3.5-5.1) mmol/L Chloride (98-107) mmol/L Carbon Dioxide (22-30) mmol/L Anion Gap (5-15) MEQ/L BUN (7-17) mg/dL Creatinine (0.52-1.04) mg/dL Estimated GFR ML/MIN Glucose (74-106) mg/dL Calcium (8.4-10.2) mg/dL Total Bilirubin (0.2-1.3) mg/dL AST (14-36) U/L ALT (0-35) U/L Alkaline Phosphatase (38-126) U/L Troponin I (0.000-0.034) ng/mL Serum Total Protein (6.3-8.2) g/dL Albumin (3.5-5.0) g/dL Slides for Path Review ABO Group A Rh Factor POSITIVE Antibody Screen NEGATIVE (NEGATIVE) Crossmatch COMPATIBLE COMPATIBLE COMPATIBLE (COMPATIBLE) 12/02/22 12/02/22 12/02/22 Range/Units 22:16 22:16 22:16 WBC (4.0-10.5) x10^3/uL RBC (4.1-5.4) x10^6/uL Hgb (12.0-16.0) g/dL Hct (35-47) % MCV (78-100) fL MCH (26-32) pg MCHC (32-36) g/dL RDW (11.5-14.0) % Plt Count (150-450) x10^3/uL MPV (7.5-11.0) fL Gran % (36.0-66.0) % Immature Gran % (Auto) (0.00-0.4) % Nucleat RBC Rel Count (0.00-0.1) % Eos # (Auto) (0-0.5) x10^3/uL Immature Gran # (Auto) (0.00-0.03) x10^3u/L Absolute Lymphs (auto) (1.0-4.6) x10^3/uL Absolute Monos (auto) (0.0-1.3) x10^3/uL Absolute Nucleated RBC (0.00-0.01) x10^3u/L Lymphocytes % (24.0-44.0) % Monocytes % (0.0-12.0) % Eosinophils % (0.00-5.0) % Basophils % (0.0-0.4) % Absolute Granulocytes (1.4-6.9) x10^3/uL Basophils # (0-0.4) x10^3/uL PT 10.3 (9.4-12.5) SECONDS INR 0.94 (0.8-3.0) APTT 21.2 L (25.1-36.5) SECONDS Sodium 142 (137-145) mmol/L Potassium 3.9 (3.5-5.1) mmol/L Chloride 105 (98-107) mmol/L Carbon Dioxide 30 (22-30) mmol/L Anion Gap 11.5 (5-15) MEQ/L BUN 8 (7-17) mg/dL Creatinine 0.73 (0.52-1.04) mg/dL Estimated GFR > 60.0 ML/MIN Glucose 193 H (74-106) mg/dL Calcium 8.4 (8.4-10.2) mg/dL Total Bilirubin 0.10 L (0.2-1.3) mg/dL AST 17 (14-36) U/L ALT 14 (0-35) U/L Alkaline Phosphatase 45 (38-126) U/L Troponin I < 0.012 (0.000-0.034) ng/mL Serum Total Protein 6.3 (6.3-8.2) g/dL Albumin 3.8 (3.5-5.0) g/dL Slides for Path Review ABO Group Rh Factor Antibody Screen (NEGATIVE) Crossmatch (COMPATIBLE) 12/02/22 Range/Units 22:16 WBC 10.1 (4.0-10.5) x10^3/uL RBC 2.28 L (4.1-5.4) x10^6/uL Hgb 4.6 L* (12.0-16.0) g/dL Hct 18.1 L (35-47) % MCV 79.4 (78-100) fL MCH 20.2 L (26-32) pg MCHC 25.4 L (32-36) g/dL RDW 22.4 H (11.5-14.0) % Plt Count 432 (150-450) x10^3/uL MPV 9.4 (7.5-11.0) fL Gran % 84.7 H (36.0-66.0) % Immature Gran % (Auto) 0.8 H (0.00-0.4) % Nucleat RBC Rel Count 0.6 H (0.00-0.1) % Eos # (Auto) 0.01 (0-0.5) x10^3/uL Immature Gran # (Auto) 0.08 H (0.00-0.03) x10^3u/L Absolute Lymphs (auto) 0.93 L (1.0-4.6) x10^3/uL Absolute Monos (auto) 0.48 (0.0-1.3) x10^3/uL Absolute Nucleated RBC 0.06 H (0.00-0.01) x10^3u/L Lymphocytes % 9.2 L (24.0-44.0) % Monocytes % 4.7 (0.0-12.0) % Eosinophils % 0.1 (0.00-5.0) % Basophils % 0.5 (0.0-0.4) % Absolute Granulocytes 8.57 H (1.4-6.9) x10^3/uL Basophils # 0.05 (0-0.4) x10^3/uL PT (9.4-12.5) SECONDS INR (0.8-3.0) APTT (25.1-36.5) SECONDS Sodium (137-145) mmol/L Potassium (3.5-5.1) mmol/L Chloride (98-107) mmol/L Carbon Dioxide (22-30) mmol/L Anion Gap (5-15) MEQ/L BUN (7-17) mg/dL Creatinine (0.52-1.04) mg/dL Estimated GFR ML/MIN Glucose (74-106) mg/dL Calcium (8.4-10.2) mg/dL Total Bilirubin (0.2-1.3) mg/dL AST (14-36) U/L ALT (0-35) U/L Alkaline Phosphatase (38-126) U/L Troponin I (0.000-0.034) ng/mL Serum Total Protein (6.3-8.2) g/dL Albumin (3.5-5.0) g/dL Slides for Path Review YES ABO Group Rh Factor Antibody Screen (NEGATIVE) Crossmatch (COMPATIBLE) - Progress Progress Note: 12/02/22 23:25 Nursing note and vital signs reviewed No food or housing insecurities noted Additional history per son All lab results reviewed and shared w pt Obs per Dr. Loza Pt typed and crosed for 3units pRBC's Counseled pt/family regarding: lab results, diagnosis, rad results Medical Desision Making - Independent Historian Additional History obtained from: Child - Diagnostic Testing Diagnostic test were ordered, analyzed, and reviewed by me: Yes Radiological Interpretation: Interpreted by me - Risk of complications The pt has a high risk of morbidity or mortality based on: Decision regarding hospitilization or escalation of hosp level of care - Departure Departure Disposition: Home Clinical Impression: Anemia Condition: Stable Critical Care Time: No
[2022-12-02 22:53] LABS: INFLUENZA A NEGATIVE (NEGATIVE); INFLUENZA B NEGATIVE (NEGATIVE); RESPIRATORY SYNCTIAL VIRUS NEGATIVE (NEGATIVE); SARS-CoV-2 Xpert Express NEGATIVE (NEGATIVE)
[2022-12-02 23:35] LABS: ABO TYPING A; Antibody Screen NEGATIVE (NEGATIVE); RH TYPING POSITIVE
[2022-12-02 23:37] LABS: CROSS MATCH (PRBC) COMPATIBLE (COMPATIBLE)
[2022-12-03 00:11] LABS: Slide Review 1 YES
[2022-12-03] MEDS ORDERED: Nitrostat 0.4 MG Tablet SL PRN (00:31)
[2022-12-03] MEDS ORDERED: VENTOLIN COMMON CANISTER IH PRN (00:31)
[2022-12-03] MEDS ORDERED: Zofran 4 MG/2 ML VIAL IV PRN (00:33)
--- NOTE | 2022-12-03 00:41 | PCM.HP ---
History of Present Illness - Chief Complaint Chief Complaint: anemia History of Present Illness: is a 67 year old female with hx of COPD and chronic respiratory failure on 3Ls NC O2 at home, CAD/CHF, Hypothyroidism, Bipolar, Anxiety/Depression and anemia with frequent transfusions presented to ER with c/o generalized weakness and fatigue x 2 weeks. Denies black or bloody stools. No hematuria, dyruria. Denies any bleeding. Came in with Hgb of 4.6 - admitted for severe anemia. She denies chest pain. Has stable SOB on 3LS NC O2, not needing more. No abdominal pain, nausea, vomiting or diarrhea. Denies fever, cough, hemoptysis. Her last transfusion was 2 years ago. Before that, she was getting pRBC every other month. She has had multiple work-up including colonoscopy and EGDs in the past - but she told me no reason for her blood loss was given. She even had a bone marrow biopsy as well. Even had pill endoscopy Her son, Kiran, is at bedside and helped with historical data - Review of Systems Constitutional: Fatigue, Weakness Eyes: No Symptoms Ears, Nose, & Throat: No Symptoms Respiratory: Short Of Breath (Chronic, not worse than her baseline) Cardiac: No Symptoms Abdominal/Gastrointestinal: No Symptoms Genitourinary Symptoms: No Symptoms Musculoskeletal: No Symptoms Skin: No Symptoms Neurological: No Symptoms Psychological: No Symptoms Endocrine: No Symptoms Hematologic/Lymphatic: No Symptoms Immunological/Allergic: No Symptoms Medications & Allergies Home Medications: Home Medication List Albuterol/Ipratropium Mdi [Combivent Inhaler] 1 puff IH QID 12/29/12 [History Confirmed 12/02/22] Clonazepam 0.5 mg [Klonopin 0.5 MG] 2 mg PO BID 12/29/12 [History Confirmed 12/02/22] Famotidine 20 mg [Pepcid 20 MG] 20 mg PO BID 12/29/12 [History Confirmed 12/02/22] Fluticasone/Salmeterol Disc [Advair/Wixella 250-50 Diskus 14 Dose] 1 puff IH BID 12/29/12 [History Confirmed 12/02/22] Sertraline HCl 100 mg [Zoloft 100 MG] 200 mg PO DAILY 12/17/13 [History Confirmed 12/02/22] Isosorbide Mononitrate 30 mg [Imdur 30 MG] 30 mg PO DAILY 11/05/14 [History Confirmed 12/02/22] Tizanidine HCl 4 mg [Zanaflex 4 MG] 4 mg PO TID 01/16/15 [History Confirmed 12/02/22] Quetiapine Fumarate [Seroquel] 200 mg PO BID 10/17/15 [History Confirmed 1 ] Nitroglycerin 0.4 mg Tablet [Nitrostat 0.4 MG Tablet] 0.4 mg SL UD PRN 11/15/15 [History Confirmed 12/02/22] Albuterol Common Canister [Ventolin Common Canister] 2 puff IH QID PRN PRN 07/08/19 [History Confirmed 12/02/22] Gabapentin 1,200 mg PO QAM 04/08/20 [History Confirmed 12/02/22] Gabapentin [Neurontin] 2,400 mg PO HS 04/08/20 [History Confirmed 12/02/22] Theophylline Anhydrous [Theophylline ER] 300 mg PO DAILY 12/23/20 [History Confirmed 12/02/22] Fluticasone Propionate [Flonase NASAL] 1 spray NS BID 03/15/21 [History Confirmed 12/02/22] Prednisone 20 mg [Deltasone 20 mg] 10 mg PO BID 03/15/21 [History Confirmed 12/02/22] Levothyroxine Sodium 25 Mcg [Synthroid 25 Mcg] 25 mcg PO DAILY tablet 03/17/21 [Rx Confirmed 12/02/22] Albuterol/Ipratropium 3ml Neb* [DUONEB 0.5-3 MG/3 ml Neb] 3 ml IH Q4H 07/15/21 [History Confirmed 12/02/22] Omeprazole 40 mg PO DAILY 10/22/21 [History Confirmed 12/02/22] Nicotine 21 mg [Nicoderm CQ 21 MG] 21 mg TOP DAILY 10/23/21 [History Confirmed 12/02/22] Allergies/Adverse Reactions: Allergies Allergy/AdvReac Type Severity Reaction Status Date / Time morphine Allergy Severe Fainting Verified 12/02/22 21:34 oxycodone Allergy Shortness Verified 12/02/22 21:34 of Breath Penicillins Allergy Verified 12/02/22 21:34 oxymorphone AdvReac Severe Fainting Verified 12/02/22 21:34 [place] AdvReac Intermediate Headache Verified 12/02/22 21:34 bupropion HCl AdvReac Mild Hives Verified 12/02/22 21:34 [From Wellbutrin] - Past Medical History Past Medical History: Yes Neurological History: Migraines ENT History: No Pertinent History Cardiac History: Congestive Heart Failure, Coronary Artery Disease, High Cholesterol, Other Respiratory History: Asthma, Bronchitis, COPD, Pneumonia Endocrine Medical History: Hypothyroidism Musculoskelatal History: Arthritis, Osteoporosis GI Medical History: GERD, Hernia, Polyps History: No Pertinent History Pyscho-Social History: Anxiety, Bipolar, Depression Reproductive Disorders: Fibroids Comment: 2 LEAKY VALVES. BORDERLINE PERSONALITY DISORDER, PTSD, manic depressive. Anemia - Past Surgical History Past Surgical History: Yes Neuro Surgical History: No Pertinent History Cardiac History: Cardiac Catheterization Respiratory Surgery: No Pertinent History GI Surgical History: Other Genitourinary Surgical Hx: No Pertinent History Musculskeletal Surgical Hx: Other Female Surgical History: Section Other Surgical History: ARM SURGERY-- left wrist laceration from a glass door, 2 c-sections, EGD with dilitation, colonoscopy, heart cath x 2 - Social History Smoking Status: Current every day smoker How long have you smoked: 40 years Exposure to second hand smoke: No Alcohol: None Drug Use: marijuana Significant Family History: no pertinent family hx - Physical Exam Vital Signs: Vital Signs - 24 hr Temp Pulse Resp BP BP Pulse Ox 12/03/22 00:01 98 H 18 117/61 100 12/02/22 23:35 100 12/02/22 23:00 95 H 20 125/79 100 12/02/22 22:00 99 H 25 H 113/66 100 12/02/22 21:25 98.2 F 100 H 18 138/52 100 12/02/22 21:23 98 H 31 H 138/52 100 General Appearance: no apparent distress Neurologic Exam: alert, oriented x 3, cooperative Eye Exam: PERRL/EOMI, eyes nml inspection Ears, Nose, Throat Exam: normal ENT inspection Neck Exam: normal inspection, non-tender, supple, full range of motion Respiratory Exam: normal breath sounds Cardiovascular Exam: regular rate/rhythm, normal heart sounds Gastrointestinal/Abdomen Exam: soft, normal bowel sounds Pelvic Exam: deferred Rectal Exam: deferred Back Exam: normal inspection Extremity Exam: normal inspection, normal range of motion Skin Exam: dry, pale Results - Labs Lab/Micro Results: Lab Results-Last 24 Hours 12/02/22 12/02/22 12/02/22 Range/Units 22:16 22:16 22:16 WBC 10.1 (4.0-10.5) x10^3/uL RBC 2.28 L (4.1-5.4) x10^6/uL Hgb 4.6 L* (12.0-16.0) g/dL Hct 18.1 L (35-47) % MCV 79.4 (78-100) fL MCH 20.2 L (26-32) pg MCHC 25.4 L (32-36) g/dL RDW 22.4 H (11.5-14.0) % Plt Count 432 (150-450) x10^3/uL MPV 9.4 (7.5-11.0) fL Gran % 84.7 H (36.0-66.0) % Immature Gran % (Auto) 0.8 H (0.00-0.4) % Nucleat RBC Rel Count 0.6 H (0.00-0.1) % Eos # (Auto) 0.01 (0-0.5) x10^3/uL Immature Gran # (Auto) 0.08 H (0.00-0.03) x10^3u/L Absolute Lymphs (auto) 0.93 L (1.0-4.6) x10^3/uL Absolute Monos (auto) 0.48 (0.0-1.3) x10^3/uL Absolute Nucleated RBC 0.06 H (0.00-0.01) x10^3u/L Lymphocytes % 9.2 L (24.0-44.0) % Monocytes % 4.7 (0.0-12.0) % Eosinophils % 0.1 (0.00-5.0) % Basophils % 0.5 (0.0-0.4) % Absolute Granulocytes 8.57 H (1.4-6.9) x10^3/uL Basophils # 0.05 (0-0.4) x10^3/uL PT 10.3 (9.4-12.5) SECONDS INR 0.94 (0.8-3.0) APTT 21.2 L (25.1-36.5) SECONDS Sodium 142 (137-145) mmol/L Potassium 3.9 (3.5-5.1) mmol/L Chloride 105 (98-107) mmol/L Carbon Dioxide 30 (22-30) mmol/L Anion Gap 11.5 (5-15) MEQ/L BUN 8 (7-17) mg/dL Creatinine 0.73 (0.52-1.04) mg/dL Estimated GFR > 60.0 ML/MIN Glucose 193 H (74-106) mg/dL Calcium 8.4 (8.4-10.2) mg/dL Total Bilirubin 0.10 L (0.2-1.3) mg/dL AST 17 (14-36) U/L ALT 14 (0-35) U/L Alkaline Phosphatase 45 (38-126) U/L Troponin I (0.000-0.034) ng/mL Serum Total Protein 6.3 (6.3-8.2) g/dL Albumin 3.8 (3.5-5.0) g/dL Influenza Type A Ag (NEGATIVE) Influenza Type B Ag (NEGATIVE) RSV (PCR) (NEGATIVE) SARS-CoV-2 (PCR) (NEGATIVE) Group A Strep Antibody (NEGATIVE) Slides for Path Review YES ABO Group Rh Factor Antibody Screen (NEGATIVE) Crossmatch (COMPATIBLE) 12/02/22 12/02/22 12/02/22 Range/Units 22:16 22:29 22:30 WBC (4.0-10.5) x10^3/uL RBC (4.1-5.4) x10^6/uL Hgb (12.0-16.0) g/dL Hct (35-47) % MCV (78-100) fL MCH (26-32) pg MCHC (32-36) g/dL RDW (11.5-14.0) % Plt Count (150-450) x10^3/uL MPV (7.5-11.0) fL Gran % (36.0-66.0) % Immature Gran % (Auto) (0.00-0.4) % Nucleat RBC Rel Count (0.00-0.1) % Eos # (Auto) (0-0.5) x10^3/uL Immature Gran # (Auto) (0.00-0.03) x10^3u/L Absolute Lymphs (auto) (1.0-4.6) x10^3/uL Absolute Monos (auto) (0.0-1.3) x10^3/uL Absolute Nucleated RBC (0.00-0.01) x10^3u/L Lymphocytes % (24.0-44.0) % Monocytes % (0.0-12.0) % Eosinophils % (0.00-5.0) % Basophils % (0.0-0.4) % Absolute Granulocytes (1.4-6.9) x10^3/uL Basophils # (0-0.4) x10^3/uL PT (9.4-12.5) SECONDS INR (0.8-3.0) APTT (25.1-36.5) SECONDS Sodium (137-145) mmol/L Potassium (3.5-5.1) mmol/L Chloride (98-107) mmol/L Carbon Dioxide (22-30) mmol/L Anion Gap (5-15) MEQ/L BUN (7-17) mg/dL Creatinine (0.52-1.04) mg/dL Estimated GFR ML/MIN Glucose (74-106) mg/dL Calcium (8.4-10.2) mg/dL Total Bilirubin (0.2-1.3) mg/dL AST (14-36) U/L ALT (0-35) U/L Alkaline Phosphatase (38-126) U/L Troponin I < 0.012 (0.000-0.034) ng/mL Serum Total Protein (6.3-8.2) g/dL Albumin (3.5-5.0) g/dL Influenza Type A Ag (NEGATIVE) Influenza Type B Ag (NEGATIVE) RSV (PCR) (NEGATIVE) SARS-CoV-2 (PCR) (NEGATIVE) Group A Strep Antibody (NEGATIVE) Slides for Path Review ABO Group A Rh Factor POSITIVE Antibody Screen NEGATIVE (NEGATIVE) Crossmatch COMPATIBLE COMPATIBLE (COMPATIBLE) 12/02/22 12/02/22 12/02/22 Range/Units 22:31 Unknown Unknown WBC (4.0-10.5) x10^3/uL RBC (4.1-5.4) x10^6/uL Hgb (12.0-16.0) g/dL Hct (35-47) % MCV (78-100) fL MCH (26-32) pg MCHC (32-36) g/dL RDW (11.5-14.0) % Plt Count (150-450) x10^3/uL MPV (7.5-11.0) fL Gran % (36.0-66.0) % Immature Gran % (Auto) (0.00-0.4) % Nucleat RBC Rel Count (0.00-0.1) % Eos # (Auto) (0-0.5) x10^3/uL Immature Gran # (Auto) (0.00-0.03) x10^3u/L Absolute Lymphs (auto) (1.0-4.6) x10^3/uL Absolute Monos (auto) (0.0-1.3) x10^3/uL Absolute Nucleated RBC (0.00-0.01) x10^3u/L Lymphocytes % (24.0-44.0) % Monocytes % (0.0-12.0) % Eosinophils % (0.00-5.0) % Basophils % (0.0-0.4) % Absolute Granulocytes (1.4-6.9) x10^3/uL Basophils # (0-0.4) x10^3/uL PT (9.4-12.5) SECONDS INR (0.8-3.0) APTT (25.1-36.5) SECONDS Sodium (137-145) mmol/L Potassium (3.5-5.1) mmol/L Chloride (98-107) mmol/L Carbon Dioxide (22-30) mmol/L Anion Gap (5-15) MEQ/L BUN (7-17) mg/dL Creatinine (0.52-1.04) mg/dL Estimated GFR ML/MIN Glucose (74-106) mg/dL Calcium (8.4-10.2) mg/dL Total Bilirubin (0.2-1.3) mg/dL AST (14-36) U/L ALT (0-35) U/L Alkaline Phosphatase (38-126) U/L Troponin I (0.000-0.034) ng/mL Serum Total Protein (6.3-8.2) g/dL Albumin (3.5-5.0) g/dL Influenza Type A Ag NEGATIVE (NEGATIVE) Influenza Type B Ag NEGATIVE (NEGATIVE) RSV (PCR) NEGATIVE (NEGATIVE) SARS-CoV-2 (PCR) NEGATIVE (NEGATIVE) Group A Strep Antibody NOT DETECTED (NEGATIVE) Slides for Path Review ABO Group Rh Factor Antibody Screen (NEGATIVE) Crossmatch COMPATIBLE (COMPATIBLE) - Radiology Impressions Radiology Exams & Impressions: Radiology Procedures Category Date Time Status CHEST 1 VIEW (PORTABLE) Stat Exams 12/02/22 22:41 Taken - Other Procedures and Tests Respiratory Therapy 12/03/22 00:33 Oxygen Nasal Cannula 3 lpm Assessment/Plan (1) Anemia Current Visit: Yes Status: Chronic Qualifiers: Assessment & Plan: Hgb 4.6, microcytic in nature. Has a hx of this and recurrent transfusions. Plan 3 units pRBC tonight. Stools sent for occult blood from the ER (stools has to be sent to the lab at this sight). Repeat H/H in AM. No reports melena or hematochezia. Not on any blood thinners. Avoiding lovenox/heparin for DVT prophylaxis. Plan SCDs She has had extensive work-up in the past with no real answer Code(s): D64.9 - ANEMIA, UNSPECIFIED (2) Chronic respiratory failure Current Visit: Yes Status: Acute Assessment & Plan: Stable on her 3Ls NC O2 at home. Continue and monitor Code(s): J96.10 - CHRONIC RESPIRATORY FAILURE, UNSP W HYPOXIA OR HYPERCAPNIA (3) COPD (chronic obstructive pulmonary disease) Current Visit: Yes Status: Acute Assessment & Plan: She is not worse than usual. So no exacerbation. Continue home meds, inhalers/nebs, steroid (4) Tobacco abuse Current Visit: Yes Status: Acute Assessment & Plan: Counseled on smoking cessation. Risks and benefits discussed. Pt is not ready to quit Code(s): Z72.0 - TOBACCO USE (5) Hypothyroidism Current Visit: Yes Status: Acute Assessment & Plan: Check TSH, resume home meds Code(s): E03.9 - HYPOTHYROIDISM, UNSPECIFIED (6) Anxiety and depression Current Visit: Yes Status: Acute Assessment & Plan: Resume home meds. Denies SI Code(s): F41.9 - ANXIETY DISORDER, UNSPECIFIED; F32.A - DEPRESSION, UNSPECIFIED Telemedicine Encounter - Telemedicine Encounter Telemedicine Encounter: The entirety of this encounter was performed via Telemedicine" Pt gave me verbal consent to have this telemedicine visit
[2022-12-03] MEDS ORDERED: DUONEB 0.5-3 MG/3 ml Neb IH SCH (00:45)
[2022-12-03] MEDS: Sodium Chloride 0.9% 500 ML 500 ML IV SCH ×2 (01:19→12:30)
[2022-12-03] MEDS ORDERED: DUONEB 0.5-3 MG/3 ml Neb IH ONE (02:27)
[2022-12-03] MEDS: TYLENOL 325 MG PO PRN ×2 (04:32→09:32)
[2022-12-03 04:55] LABS: Absolute Neutrophil Ct (ANC) 6.08 x10^3/uL (1.4-6.9); BASOPHIL % 0.8 % (0.0-0.4); Basophil (Absolute #) 0.07 x10^3/uL (0-0.4); Eosinophil % 0.3 % (0.00-5.0); Eosinophil (Absolute #) 0.03 x10^3/uL (0-0.5); Hematocrit 20.9 % (35-47); IMMATURE GRAN # 0.03 x10^3u/L (0.00-0.03); IMMATURE GRAN % 0.3 % (0.00-0.4); Lymphocyte (Absolute #) 1.93 x10^3/uL (1.0-4.6); Lymphocytes % 21.2 % (24.0-44.0); Mean Cell Volume 80.4 fL (78-100); Mean Corpuscular Hemoglobin 22.3 pg (26-32); Mean Corpuscular Hgb Concent. 27.8 g/dL (32-36); Mean Platelet Volume 9.9 fL (7.5-11.0); Monocyte (Absolute #) 0.95 x10^3/uL (0.0-1.3); Monocytes % 10.5 % (0.0-12.0); NUCLEATED RBC # 0.03 x10^3u/L (0.00-0.01); NUCLEATED RBC % 0.3 % (0.00-0.1); Neutrophil % 66.9 % (36.0-66.0); Platelet Count 420 x10^3/uL (150-450); Red Cell Distribution Width 21.7 % (11.5-14.0); White Blood Count 9.1 x10^3/uL (4.0-10.5)
[2022-12-03 04:59] LABS: Hemoglobin 5.8 g/dL (12.0-16.0)
[2022-12-03 05:32] LABS: ANION GAP 9.5 MEQ/L (5-15); BLOOD UREA NITROGEN 7 mg/dL (7-17); CHLORIDE 106 mmol/L (98-107); Carbon Dioxide 28 mmol/L (22-30); Creatinine 1 0.67 mg/dL (0.52-1.04); EST GLOMERULAR FILTRATION RATE > 60.0 ML/MIN; Glucose 93 mg/dL (74-106); Potassium 3.4 mmol/L (3.5-5.1); SODIUM 140 mmol/L (137-145)
[2022-12-03] MEDS ORDERED: PULMICORT 0.5 MG/2 ML RESPULES IH ONE (06:30)
[2022-12-03] MEDS: DUONEB 0.5-3 MG/3 ml Neb IH SCH ×2 (06:42→10:43)
[2022-12-03 06:54] VITALS: TEMP 97.3
[2022-12-03] MEDS ORDERED: Advair Hfa 115/21 Common canister IH SCH ×2 (07:00→08:00)
[2022-12-03] MEDS ORDERED: PULMICORT 0.5 MG/2 ML RESPULES IH SCH (07:00)
[2022-12-03 07:18] LABS: Slide Review 1 YES
[2022-12-03] MEDS: Klor Con PO SCH ×3 (07:54→12:32)
--- NOTE | 2022-12-03 09:14 | XRAY ---
Indication: Lethargy. Comparison: October 22, 2021 Portable chest is now clear. Heart not enlarged with interval enlarging moderate size hiatal hernia. Bony thorax intact again with osteopenia and mild degenerative changes. No new/acute abnormalities.
[2022-12-03] MEDS ORDERED: clonazePAM PO SCH (10:00)
[2022-12-03] MEDS ORDERED: Zanaflex 4 MG PO SCH (10:00)
[2022-12-03] MEDS ORDERED: SYNTHROID 25 MCG PO SCH (10:00)
[2022-12-03] MEDS ORDERED: DELTASONE 10 MG PO SCH (10:00)
[2022-12-03] MEDS ORDERED: KLONOPIN PO SCH (10:00)
[2022-12-03] MEDS ORDERED: NEURONTIN PO SCH (10:00)
[2022-12-03] MEDS ORDERED: ZOLOFT 50 MG TABLET PO SCH (10:00)
[2022-12-03] MEDS ORDERED: Nicoderm CQ 21 MG TOP SCH (10:00)
[2022-12-03] MEDS ORDERED: Neurontin PO SCH ×2 (10:00→22:00)
[2022-12-03] MEDS ORDERED: [UNRECOGNIZED DRUG - OTHER] IH SCH (10:00)
[2022-12-03] MEDS ORDERED: Flonase NASAL NS SCH (10:00)
[2022-12-03] MEDS ORDERED: ALBUTEROL IH SCH (10:00)
[2022-12-03] MEDS ORDERED: Protonix 40MG Tablet PO SCH (10:00)
[2022-12-03] MEDS ORDERED: Imdur 30 MG PO SCH (10:00)
[2022-12-03] MEDS ORDERED: NON-FORMULARY ITEM (Sertraline Hcl 100 Mg [Zoloft 100 Mg] 100 MG Tab) PO SCH (10:00)
[2022-12-03] MEDS ORDERED: DELTASONE 20 MG PO SCH (10:00)
[2022-12-03] MEDS ORDERED: FLUTICASONE-SALMETEROL 250-50 IH SCH (10:00)
[2022-12-03] MEDS ORDERED: THERAGRAN MULTIVITAMIN PO SCH (10:00)
[2022-12-03] MEDS ORDERED: Seroquel 100 MG PO SCH ×3 (10:00→22:00)
[2022-12-03 10:48] VITALS: PULSE 84
[2022-12-03 11:29] VITALS: BP 93/49; RESP 18; O2SAT 100
[2022-12-03 12:29] LABS: Hematocrit 27.6 % (35-47)
--- NOTE | 2022-12-03 12:42 | PCM.DS ---
Discharge Summary Date of Admission: 12/02/22 23:46 Date of Discharge: 12/03/2022 Admitting Physician: REDDY SEO DO Primary Care Provider: NISHA,WEN Allergies Allergies morphine Allergy (Severe, Verified 12/02/22 21:34) Fainting oxycodone Allergy (Verified 12/02/22 21:34) Shortness of Breath Penicillins Allergy (Verified 12/02/22 21:34) oxymorphone Adverse Reaction (Severe, Verified 12/02/22 21:34) Fainting Coconut Adverse Reaction (Intermediate, Verified 12/02/22 21:34) Headache bupropion HCl [From Wellbutrin] Adverse Reaction (Mild, Verified 12/02/22 21:34) [facility] Summary - Hospital Course Hospital Course: is a 67 year old female with hx of COPD and chronic respiratory failure on 3Ls NC O2 at home, CAD/CHF, Hypothyroidism, Bipolar, Anxiety/Depression and anemia with frequent transfusions presented to ER with c/o generalized weakness and fatigue x 2 weeks. Denies black or bloody stools. No hematuria, dyruria. Denies any bleeding. Came in with Hgb of 4.6 - admitted for severe anemia, she received 3 units of LPRBC, hgb now stable at 8. Patient states that she has had prior workup with GI and Heme/onc. I did speak with Dr. Espitia's regarding patient, she did undergo a bone marrow biopsy previously in [address] Espitia will see her Wednesday for follow up on her anemia and further workup. Patient advised of appointment and agreeable to plan. New Diagnosis: Severe anemia New Medications: none Follow Up: PCP/Omari Results pending: Iron studies Latest Assessment & Plan (1) Anemia Current Visit: Yes Status: Chronic Qualifiers: Assessment & Plan: Hgb 4.6, microcytic in nature. Has a hx of this and recurrent transfusions. Plan 3 units pRBC tonight. Stools sent for occult blood from the ER (stools has to be sent to the lab at this sight). Repeat H/H in AM. No reports melena or hematochezia. Not on any blood thinners. Avoiding lovenox/heparin for DVT prophylaxis. Plan SCDs She has had extensive work-up in the past with no real answer Code(s): D64.9 - ANEMIA, UNSPECIFIED (2) Chronic respiratory failure Current Visit: Yes Status: Acute Assessment & Plan: Stable on her 3Ls NC O2 at home. Continue and monitor Code(s): J96.10 - CHRONIC RESPIRATORY FAILURE, UNSP W HYPOXIA OR HYPERCAPNIA (3) COPD (chronic obstructive pulmonary disease) Current Visit: Yes Status: Acute Assessment & Plan: She is not worse than usual. So no exacerbation. Continue home meds, inhalers/nebs, steroid (4) Tobacco abuse Current Visit: Yes Status: Acute Assessment & Plan: Counseled on smoking cessation. Risks and benefits discussed. Pt is not ready to quit Code(s): Z72.0 - TOBACCO USE (5) Hypothyroidism Current Visit: Yes Status: Acute Assessment & Plan: Check TSH, resume home meds Code(s): E03.9 - HYPOTHYROIDISM, UNSPECIFIED (6) Anxiety and depression Current Visit: Yes Status: Acute Assessment & Plan: Resume home meds. Denies SI Code(s): F41.9 - ANXIETY DISORDER, UNSPECIFIED; F32.A - DEPRESSION, UNSPECIFIED I spent 35 minutes [id number] with the patient on the day of discharge perfor emil discharge exam, discussing hospital stay and discharge instructions with patient and caregivers, preparation of discharge records, prescriptions & referral forms and addressing any questions/concerns the patient had as documented above. - Vitals & Intake/Output Vital Signs: Vital Signs Temperature 97.3 F 12/03/22 11:28 Pulse Rate 84 12/03/22 11:28 Respiratory Rate 18 12/03/22 11:28 Blood Pressure 93/49 12/03/22 11:28 O2 Sat by Pulse Oximetry 100 12/03/22 11:28 Intake & Output: Intake & Output 12/01/22 12/02/22 12/03/22 12/04/22 11:59 11:59 11:59 11:59 Intake Total 240 Balance 240 Weight 74.6 kg - Lab Result Diagrams: 12/03/22 12:25 12/03/22 04:11 Lab Results-Last 24 Hrs: Lab Results-Last 24 Hours 12/02/22 12/02/22 12/02/22 Range/Units 22:16 22:16 22:16 WBC 10.1 (4.0-10.5) x10^3/uL RBC 2.28 L (4.1-5.4) x10^6/uL Hgb 4.6 L* (12.0-16.0) g/dL Hct 18.1 L (35-47) % MCV 79.4 (78-100) fL MCH 20.2 L (26-32) pg MCHC 25.4 L (32-36) g/dL RDW 22.4 H (11.5-14.0) % Plt Count 432 (150-450) x10^3/uL MPV 9.4 (7.5-11.0) fL Gran % 84.7 H (36.0-66.0) % Immature Gran % (Auto) 0.8 H (0.00-0.4) % Nucleat RBC Rel Count 0.6 H (0.00-0.1) % Eos # (Auto) 0.01 (0-0.5) x10^3/uL Immature Gran # (Auto) 0.08 H (0.00-0.03) x10^3u/L Absolute Lymphs (auto) 0.93 L (1.0-4.6) x10^3/uL Absolute Monos (auto) 0.48 (0.0-1.3) x10^3/uL Absolute Nucleated RBC 0.06 H (0.00-0.01) x10^3u/L Lymphocytes % 9.2 L (24.0-44.0) % Monocytes % 4.7 (0.0-12.0) % Eosinophils % 0.1 (0.00-5.0) % Basophils % 0.5 (0.0-0.4) % Absolute Granulocytes 8.57 H (1.4-6.9) x10^3/uL Basophils # 0.05 (0-0.4) x10^3/uL PT 10.3 (9.4-12.5) SECONDS INR 0.94 (0.8-3.0) APTT 21.2 L (25.1-36.5) SECONDS Sodium 142 (137-145) mmol/L Potassium 3.9 (3.5-5.1) mmol/L Chloride 105 (98-107) mmol/L Carbon Dioxide 30 (22-30) mmol/L Anion Gap 11.5 (5-15) MEQ/L BUN 8 (7-17) mg/dL Creatinine 0.73 (0.52-1.04) mg/dL Estimated GFR > 60.0 ML/MIN Glucose 193 H (74-106) mg/dL Calcium 8.4 (8.4-10.2) mg/dL Total Bilirubin 0.10 L (0.2-1.3) mg/dL AST 17 (14-36) U/L ALT 14 (0-35) U/L Alkaline Phosphatase 45 (38-126) U/L Troponin I (0.000-0.034) ng/mL Serum Total Protein 6.3 (6.3-8.2) g/dL Albumin 3.8 (3.5-5.0) g/dL TSH 3rd Generation (0.47-4.68) mIU/L Influenza Type A Ag (NEGATIVE) Influenza Type B Ag (NEGATIVE) RSV (PCR) (NEGATIVE) SARS-CoV-2 (PCR) (NEGATIVE) Group A Strep Antibody (NEGATIVE) Slides for Path Review YES ABO Group Rh Factor Antibody Screen (NEGATIVE) Crossmatch (COMPATIBLE) 12/02/22 12/02/22 12/02/22 Range/Units 22:16 22:29 22:30 WBC (4.0-10.5) x10^3/uL RBC (4.1-5.4) x10^6/uL Hgb (12.0-16.0) g/dL Hct (35-47) % MCV (78-100) fL MCH (26-32) pg MCHC (32-36) g/dL RDW (11.5-14.0) % Plt Count (150-450) x10^3/uL MPV (7.5-11.0) fL Gran % (36.0-66.0) % Immature Gran % (Auto) (0.00-0.4) % Nucleat RBC Rel Count (0.00-0.1) % Eos # (Auto) (0-0.5) x10^3/uL Immature Gran # (Auto) (0.00-0.03) x10^3u/L Absolute Lymphs (auto) (1.0-4.6) x10^3/uL Absolute Monos (auto) (0.0-1.3) x10^3/uL Absolute Nucleated RBC (0.00-0.01) x10^3u/L Lymphocytes % (24.0-44.0) % Monocytes % (0.0-12.0) % Eosinophils % (0.00-5.0) % Basophils % (0.0-0.4) % Absolute Granulocytes (1.4-6.9) x10^3/uL Basophils # (0-0.4) x10^3/uL PT (9.4-12.5) SECONDS INR (0.8-3.0) APTT (25.1-36.5) SECONDS Sodium (137-145) mmol/L Potassium (3.5-5.1) mmol/L Chloride (98-107) mmol/L Carbon Dioxide (22-30) mmol/L Anion Gap (5-15) MEQ/L BUN (7-17) mg/dL Creatinine (0.52-1.04) mg/dL Estimated GFR ML/MIN Glucose (74-106) mg/dL Calcium (8.4-10.2) mg/dL Total Bilirubin (0.2-1.3) mg/dL AST (14-36) U/L ALT (0-35) U/L Alkaline Phosphatase (38-126) U/L Troponin I < 0.012 (0.000-0.034) ng/mL Serum Total Protein (6.3-8.2) g/dL Albumin (3.5-5.0) g/dL TSH 3rd Generation (0.47-4.68) mIU/L Influenza Type A Ag (NEGATIVE) Influenza Type B Ag (NEGATIVE) RSV (PCR) (NEGATIVE) SARS-CoV-2 (PCR) (NEGATIVE) Group A Strep Antibody (NEGATIVE) Slides for Path Review ABO Group A Rh Factor POSITIVE Antibody Screen NEGATIVE (NEGATIVE) Crossmatch COMPATIBLE COMPATIBLE (COMPATIBLE) 12/02/22 12/02/22 12/02/22 Range/Units 22:31 Unknown Unknown WBC (4.0-10.5) x10^3/uL RBC (4.1-5.4) x10^6/uL Hgb (12.0-16.0) g/dL Hct (35-47) % MCV (78-100) fL MCH (26-32) pg MCHC (32-36) g/dL RDW (11.5-14.0) % Plt Count (150-450) x10^3/uL MPV (7.5-11.0) fL Gran % (36.0-66.0) % Immature Gran % (Auto) (0.00-0.4) % Nucleat RBC Rel Count (0.00-0.1) % Eos # (Auto) (0-0.5) x10^3/uL Immature Gran # (Auto) (0.00-0.03) x10^3u/L Absolute Lymphs (auto) (1.0-4.6) x10^3/uL Absolute Monos (auto) (0.0-1.3) x10^3/uL Absolute Nucleated RBC (0.00-0.01) x10^3u/L Lymphocytes % (24.0-44.0) % Monocytes % (0.0-12.0) % Eosinophils % (0.00-5.0) % Basophils % (0.0-0.4) % Absolute Granulocytes (1.4-6.9) x10^3/uL Basophils # (0-0.4) x10^3/uL PT (9.4-12.5) SECONDS INR (0.8-3.0) APTT (25.1-36.5) SECONDS Sodium (137-145) mmol/L Potassium (3.5-5.1) mmol/L Chloride (98-107) mmol/L Carbon Dioxide (22-30) mmol/L Anion Gap (5-15) MEQ/L BUN (7-17) mg/dL Creatinine (0.52-1.04) mg/dL Estimated GFR ML/MIN Glucose (74-106) mg/dL Calcium (8.4-10.2) mg/dL Total Bilirubin (0.2-1.3) mg/dL AST (14-36) U/L ALT (0-35) U/L Alkaline Phosphatase (38-126) U/L Troponin I (0.000-0.034) ng/mL Serum Total Protein (6.3-8.2) g/dL Albumin (3.5-5.0) g/dL TSH 3rd Generation (0.47-4.68) mIU/L Influenza Type A Ag NEGATIVE (NEGATIVE) Influenza Type B Ag NEGATIVE (NEGATIVE) RSV (PCR) NEGATIVE (NEGATIVE) SARS-CoV-2 (PCR) NEGATIVE (NEGATIVE) Group A Strep Antibody NOT DETECTED (NEGATIVE) Slides for Path Review ABO Group Rh Factor Antibody Screen (NEGATIVE) Crossmatch COMPATIBLE (COMPATIBLE) 12/03/22 12/03/22 12/03/22 Range/Units 01:59 04:11 04:11 WBC 9.1 (4.0-10.5) x10^3/uL RBC 2.60 L (4.1-5.4) x10^6/uL Hgb 5.8 L* D (12.0-16.0) g/dL Hct 20.9 L (35-47) % MCV 80.4 (78-100) fL MCH 22.3 L (26-32) pg MCHC 27.8 L (32-36) g/dL RDW 21.7 H (11.5-14.0) % Plt Count 420 (150-450) x10^3/uL MPV 9.9 (7.5-11.0) fL Gran % 66.9 H (36.0-66.0) % Immature Gran % (Auto) 0.3 (0.00-0.4) % Nucleat RBC Rel Count 0.3 H (0.00-0.1) % Eos # (Auto) 0.03 (0-0.5) x10^3/uL Immature Gran # (Auto) 0.03 (0.00-0.03) x10^3u/L Absolute Lymphs (auto) 1.93 (1.0-4.6) x10^3/uL Absolute Monos (auto) 0.95 (0.0-1.3) x10^3/uL Absolute Nucleated RBC 0.03 H (0.00-0.01) x10^3u/L Lymphocytes % 21.2 L (24.0-44.0) % Monocytes % 10.5 (0.0-12.0) % Eosinophils % 0.3 (0.00-5.0) % Basophils % 0.8 (0.0-0.4) % Absolute Granulocytes 6.08 (1.4-6.9) x10^3/uL Basophils # 0.07 (0-0.4) x10^3/uL PT (9.4-12.5) SECONDS INR (0.8-3.0) APTT (25.1-36.5) SECONDS Sodium (137-145) mmol/L Potassium (3.5-5.1) mmol/L Chloride (98-107) mmol/L Carbon Dioxide (22-30) mmol/L Anion Gap (5-15) MEQ/L BUN (7-17) mg/dL Creatinine (0.52-1.04) mg/dL Estimated GFR ML/MIN Glucose (74-106) mg/dL Calcium (8.4-10.2) mg/dL Total Bilirubin (0.2-1.3) mg/dL AST (14-36) U/L ALT (0-35) U/L Alkaline Phosphatase (38-126) U/L Troponin I < 0.012 < 0.012 (0.000-0.034) ng/mL Serum Total Protein (6.3-8.2) g/dL Albumin (3.5-5.0) g/dL TSH 3rd Generation (0.47-4.68) mIU/L Influenza Type A Ag (NEGATIVE) Influenza Type B Ag (NEGATIVE) RSV (PCR) (NEGATIVE) SARS-CoV-2 (PCR) (NEGATIVE) Group A Strep Antibody (NEGATIVE) Slides for Path Review YES ABO Group Rh Factor Antibody Screen (NEGATIVE) Crossmatch (COMPATIBLE) 12/03/22 12/03/22 12/03/22 Range/Units 04:11 05:22 12:25 WBC (4.0-10.5) x10^3/uL RBC (4.1-5.4) x10^6/uL Hgb 8.0 L D (12.0-16.0) g/dL Hct 27.6 L (35-47) % MCV (78-100) fL MCH (26-32) pg MCHC (32-36) g/dL RDW (11.5-14.0) % Plt Count (150-450) x10^3/uL MPV (7.5-11.0) fL Gran % (36.0-66.0) % Immature Gran % (Auto) (0.00-0.4) % Nucleat RBC Rel Count (0.00-0.1) % Eos # (Auto) (0-0.5) x10^3/uL Immature Gran # (Auto) (0.00-0.03) x10^3u/L Absolute Lymphs (auto) (1.0-4.6) x10^3/uL Absolute Monos (auto) (0.0-1.3) x10^3/uL Absolute Nucleated RBC (0.00-0.01) x10^3u/L Lymphocytes % (24.0-44.0) % Monocytes % (0.0-12.0) % Eosinophils % (0.00-5.0) % Basophils % (0.0-0.4) % Absolute Granulocytes (1.4-6.9) x10^3/uL Basophils # (0-0.4) x10^3/uL PT (9.4-12.5) SECONDS INR (0.8-3.0) APTT (25.1-36.5) SECONDS Sodium 140 (137-145) mmol/L Potassium 3.4 L (3.5-5.1) mmol/L Chloride 106 (98-107) mmol/L Carbon Dioxide 28 (22-30) mmol/L Anion Gap 9.5 (5-15) MEQ/L BUN 7 (7-17) mg/dL Creatinine 0.67 (0.52-1.04) mg/dL Estimated GFR > 60.0 ML/MIN Glucose 93 (74-106) mg/dL Calcium 8.0 L (8.4-10.2) mg/dL Total Bilirubin (0.2-1.3) mg/dL AST (14-36) U/L ALT (0-35) U/L Alkaline Phosphatase (38-126) U/L Troponin I (0.000-0.034) ng/mL Serum Total Protein (6.3-8.2) g/dL Albumin (3.5-5.0) g/dL TSH 3rd Generation 2.070 (0.47-4.68) mIU/L Influenza Type A Ag (NEGATIVE) Influenza Type B Ag (NEGATIVE) RSV (PCR) (NEGATIVE) SARS-CoV-2 (PCR) (NEGATIVE) Group A Strep Antibody (NEGATIVE) Slides for Path Review ABO Group Rh Factor Antibody Screen (NEGATIVE) Crossmatch (COMPATIBLE) - Radiology Exams Ordered Rad Exams-Entire Visit: Radiology Procedures Category Date Time Status CHEST 1 VIEW (PORTABLE) Stat Exams 12/02/22 22:41 Completed - Procedures and Test Procedures and Tests throughout Hospitalization: Therapy Orders & Screens 12/03/22 00:33 Oxygen Nasal Cannula 3 lpm Comment: Diagnosis: anemia 12/03/22 01:06 Smoking Cessation Education ONCE Comment: Diagnosis: anemia Smoking Status: Current every day smoker How long have you smoked: 40 years Have you smoked in the past 12 months: Yes Approximately how many cigarettes per day: 10 per day Do you dip or chew tobacco: No If,Former Smoker,when did you quit: 1 week ago 12/03/22 02:16 Respiratory Therapy Assessment DAILY Comment: Diagnosis: anemia Discharge Exam General Appearance: no apparent distress Neurologic Exam: alert, oriented x 3, cooperative Eye Exam: PERRL Ears, Nose, Throat Exam: normal ENT inspection Neck Exam: normal inspection Cardiovascular Exam: regular rate/rhythm, normal heart sounds Gastrointestinal/Abdomen Exam: soft, normal bowel sounds Pelvic Exam: deferred Rectal Exam: deferred Extremity Exam: normal inspection Skin Exam: pale Final Diagnosis/Problem List - Final Discharge Diagnosis/Problem (1) COPD (chronic obstructive pulmonary disease) Current Visit: Yes Status: Acute (2) Anxiety and depression Current Visit: Yes Status: Acute Code(s): F41.9 - ANXIETY DISORDER, UNSPECIFIED; F32.A - DEPRESSION, UNSPECIFIED (3) COPD (chronic obstructive pulmonary disease) Current Visit: Yes Status: Acute (4) Chronic respiratory failure Current Visit: Yes Status: Acute Code(s): J96.10 - CHRONIC RESPIRATORY FAILURE, UNSP W HYPOXIA OR HYPERCAPNIA (5) Hypothyroidism Current Visit: Yes Status: Acute Code(s): E03.9 - HYPOTHYROIDISM, UNSPECIFIED (6) Tobacco abuse Current Visit: Yes Status: Acute Code(s): Z72.0 - TOBACCO USE (7) Acute anemia Current Visit: No Status: Acute Code(s): D64.9 - ANEMIA, UNSPECIFIED - Discharge Discharge Date: 12/03/22 Disposition: Home, Self-Care Condition: Stable Prescriptions: Continue Clonazepam 0.5 mg [Klonopin 0.5 MG] 2 mg PO BID Fluticasone/Salmeterol Disc [Advair/Wixella 250-50 Diskus 14 Dose] 1 puff IH BID Famotidine 20 mg [Pepcid 20 MG] 20 mg PO BID Albuterol/Ipratropium Mdi [Combivent Inhaler] 1 puff IH QID Sertraline HCl 100 mg [Zoloft 100 MG] 200 mg PO DAILY Isosorbide Mononitrate 30 mg [Imdur 30 MG] 30 mg PO DAILY Tizanidine HCl 4 mg [Zanaflex 4 MG] 4 mg PO TID Quetiapine Fumarate [Seroquel] 100 mg PO BID Nitroglycerin 0.4 mg Tablet [Nitrostat 0.4 MG Tablet] 0.4 mg SL UD PRN PRN Reason: Chest Pain Albuterol Common Canister [Ventolin Common Canister] 2 puff IH QID PRN PRN PRN Reason: Shortness Of Breath Gabapentin 1,200 mg PO QAM Gabapentin [Neurontin] 2,400 mg PO HS Theophylline Anhydrous [Theophylline ER] 300 mg PO DAILY Prednisone 20 mg [Deltasone 20 mg] 10 mg PO BID Fluticasone Propionate [Flonase NASAL] 1 spray NS BID Levothyroxine Sodium 25 Mcg [Synthroid 25 Mcg] 25 mcg PO DAILY tablet Albuterol/Ipratropium 3ml Neb* [DUONEB 0.5-3 MG/3 ml Neb] 3 ml IH Q4H Omeprazole 40 mg PO DAILY Nicotine 21 mg [Nicoderm CQ 21 MG] 21 mg TOP DAILY Follow up with: JODIE ESPITIA MD [NON-STAFF PHY W/O PRIVILEGES] - 12/07/22 10:45 am WEN CAMERON MD [Primary Care Provider] - 12/10/22 10:45 am ([facility])
[2022-12-03] MEDS ORDERED: TYLENOL 325 MG PO PRN (12:47)
[2022-12-03 14:53] LABS: Iron 44 ug/dL (37-170); Iron Saturation 11 % (20-39); TIBC 407 ug/dL (265-462)
[2022-12-03 14:55] LABS: Ferritin 5.56 ng/mL (11.1-264); Folate (Folic Acid) > 19.0 ng/mL (2.76 - >20); MAGNESIUM 2.3 mg/dL (1.6-2.3); Vitamin B12 239 pg/mL (239-931)
[2022-12-03] MEDS ORDERED: NON-FORMULARY ITEM (Gabapentin [Neurontin] 800 MG Tablet) PO SCH (22:00)
== END 2022-12-03 14:34 | disposition home or self-care (01) ==
LOC: ED 20:18 → MED SURG 23:46
PROVIDERS: ADMIT Internal Medicine; ATTEND Internal Medicine
DX: J44.1 Chronic obstructive pulmonary disease with (acute) exacerbation (principal); F41.9 Anxiety disorder, unspecified; J96.10 Chronic respiratory failure, unspecified whether with hypoxia or hypercapnia; E03.9 Hypothyroidism, unspecified; D64.9 Anemia, unspecified; I25.10 Atherosclerotic heart disease of native coronary artery without angina pectoris; I50.9 Heart failure, unspecified; E78.5 Hyperlipidemia, unspecified; Z72.0 Tobacco use; Z79.899 Other long term (current) drug therapy; Z20.828 Contact with and (suspected) exposure to other viral communicable diseases; Z99.81 Dependence on supplemental oxygen
CPT/HCPCS: 0241U; 36000; 36415; 36430; 71045; 80048; 80053; 82607; 82728; 82746; 83540; 83550; 83735; 84132; 84443; 84484; 85014; 85018; 85025; 85610; 85730; 86850; 86900; 86901; 86922; 87651; 93005; 94640; 94760; 99285; P9016; Q3014; G0378; A9270-GY

== ENCOUNTER 2023-03-10 15:41 | Observation (INO) | payer MEDICARE ==
[2023-03-10] MEDS ORDERED: solu-MEDROL 125 MG, Sterile H2O 10 ml 2 ML IV ONE ×2 (15:57)
[2023-03-10] MEDS ORDERED: DUONEB 0.5-3 MG/3 ml Neb IH ONE ×2 (15:57→18:35)
[2023-03-10] MEDS ORDERED: Zithromax 500 MG/ 250 ML NaCl Premix 500 MG/250 ML IVPB IV STA (15:57)
[2023-03-10] MEDS ORDERED: PROVENTIL 2.5 MG/3 ML NEB IH ONE ×2 (16:11→16:52)
[2023-03-10] MEDS ORDERED: Zithromax 500 MG/ 250 ML NaCl Premix 0 MG/0 ML IVPB IV ONE (16:12)
[2023-03-10] MEDS: Sodium Chloride 0.9% 1000 ML 1,000 ML IV SCH (16:19)
[2023-03-10] MEDS ORDERED: Zithromax 500 MG/ 250 ML NaCl Premix 500 MG/250 ML IVPB IV ONE (16:21)
[2023-03-10] MEDS: VANCOMYCIN 1 GRAM/200 ML BAG 1 GM/200 ML PIGGYBACK IV SCH (16:23)
--- NOTE | 2023-03-10 16:32 | XRAY ---
Indication: Short of breath. Fatigue. Comparison: December 02, 2022 Portable chest demonstrates new left mid to lower lung infiltrate/atelectasis. Remaining heart and right lung unremarkable. Bony thorax intact again with osteopenia and mild degenerative changes.
[2023-03-10 16:33] LABS: Hemoglobin 7.3 g/dL (12.0-16.0); Mean Cell Volume 79.3 fL (78-100); Mean Corpuscular Hemoglobin 20.7 pg (26-32); Mean Corpuscular Hgb Concent. 26.1 g/dL (32-36); Mean Platelet Volume 10.5 fL (7.5-11.0); Platelet Count 343 x10^3/uL (150-450); Red Blood Count 3.53 x10^6/uL (4.1-5.4); Red Cell Distribution Width 27.8 % (11.5-14.0)
[2023-03-10 16:36] LABS: White Blood Count 28.8 x10^3/uL (4.0-10.5)
[2023-03-10 16:55] LABS: ALBUMIN 3.8 g/dL (3.5-5.0); ANION GAP 8.9 MEQ/L (5-15); BILIRUBIN,TOTAL 0.6 mg/dL (0.2-1.3); Creatinine 1 0.77 mg/dL (0.52-1.04); EST GLOMERULAR FILTRATION RATE 85.6 ML/MIN; Potassium 3.6 mmol/L (3.5-5.1)
[2023-03-10 17:09] LABS: ANISOCYTOSIS 3+; BAND 3 % (0.0-2.0); Hypochromia 2+; Lymphocytes 2 % (24-44); Monocyte 1 % (0.0-12.0); Neutrophils 94 % (36.0-66.0); Platelet Estimate NORMAL (NORMAL); Polychromasia 2+; Total Cells Counted 100
--- NOTE | 2023-03-10 17:11 | ERPHSYRPT ---
- History of Present Illness Time Seen by Provider: 03/10/23 16:00 Source: patient Exam Limitations: no limitations Patient Subjective Stated Complaint: C/O SOB that started yesterday. Triage Nursing Assessment: Patient arrived by ambulance. She is alert and oriented but drowsy. She is wearing 02 @ 4L per N/C; she wears this continuously at home. She is SOB. Non-productive cough is present. Wheezes noted in lung rao. Nicotine stains noted to fingertips. Physician History: Patient is a 67-year-old white female who has longstanding COPD who presents by ambulance from home with a complaint of increasing shortness of breath since yesterday. She says she has had fever chills and sweats she is also producing green sputum. She is a heavy smoker but says she quit today. She was given steroids a DuoNeb and O2 in the EMS ambulance. She is on chronic home O2 at 3 she is presently on 4 L nasal cannula. Timing/Duration: yesterday Activities at Onset: none Severity of Dyspnea-Max: moderate Severity of Dyspnea-Current: moderate Possible Cause: frequent episodes Allergies/Adverse Reactions: morphine Allergy (Severe, Verified 03/10/23 15:47) Fainting oxycodone Allergy (Verified 03/10/23 15:47) Shortness of Breath Penicillins Allergy (Verified 03/10/23 15:47) oxymorphone Adverse Reaction (Severe, Verified 03/10/23 15:47) Fainting Coconut Adverse Reaction (Intermediate, Verified 03/10/23 15:47) Headache bupropion HCl [From Wellbutrin] Adverse Reaction (Mild, Verified 03/10/23 15:47) Hives Home Medications: Albuterol/Ipratropium Mdi [Combivent Inhaler] 1 puff IH QID 12/29/12 [History] Clonazepam 0.5 mg [Klonopin 0.5 MG] 2 mg PO BID 12/29/12 [History] Famotidine 20 mg [Pepcid 20 MG] 20 mg PO BID 12/29/12 [History] Fluticasone/Salmeterol Disc [Advair/Wixella 250-50 Diskus 14 Dose] 1 puff IH BID 12/29/12 [History] Sertraline HCl 100 mg [Zoloft 100 MG] 200 mg PO DAILY 12/17/13 [History] Isosorbide Mononitrate 30 mg [Imdur 30 MG] 30 mg PO DAILY 11/05/14 [History] Tizanidine HCl 4 mg [Zanaflex 4 MG] 4 mg PO TID 01/16/15 [History] Quetiapine Fumarate [Seroquel] 300 mg PO HS 10/17/15 [History] Nitroglycerin 0.4 mg Tablet [Nitrostat 0.4 MG Tablet] 0.4 mg SL UD PRN 11/15/15 [History] Gabapentin [Neurontin] 2,400 mg PO HS 04/08/20 [History] Theophylline Anhydrous [Theophylline ER] 300 mg PO DAILY 12/23/20 [History] Fluticasone Propionate [Flonase NASAL] 1 spray NS BID 03/15/21 [History] Prednisone 20 mg [Deltasone 20 mg] 10 mg PO BID 03/15/21 [History] Omeprazole 40 mg PO DAILY 10/22/21 [History] Albuterol Sulfate Mdi [ALBUTEROL/Proair Hfa MDI] 2 puff IH QID 03/10/23 [History] Hx Tetanus, Diphtheria Vaccination/Date Given: No Hx Influenza Vaccination/Date Given: No Hx Pneumococcal Vaccination/Date Given: No Immunizations Up to Date: Yes Travel Risk - International Travel Have you traveled outside of the country in past 3 weeks: No - Coronavirus Screening Are you exhibiting any of the following symptoms?: Yes Symptoms: Shortness of Breath, Headaches/Body Aches/Fatigue Close contact with a COVID-19 positive Pt in past 14-21 Days: No - Vaccine Status Have you recieved a Covid-19 vaccination: No - Vaccination Dates Comment: . - Review of Systems Constitutional: Fever, Chills, Night Sweats Eyes: No Symptoms Ears, Nose, & Throat: No Symptoms Respiratory: Cough, Dyspnea, Wheezing, Other (Rales or rhonchi) Cardiac: No Chest Pain, No Edema, No Syncope Abdominal/Gastrointestinal: No Abdominal Pain, No Nausea, No Vomiting, No Diarrhea Genitourinary Symptoms: No Dysuria Musculoskeletal: No Back Pain, No Neck Pain Skin: No Rash Neurological: No Dizziness, No Focal Weakness, No Sensory Changes Psychological: No Symptoms Endocrine: No Symptoms All Other Systems: Reviewed and Negative - Past Medical History Pertinent Past Medical History: Yes Neurological History: Migraines ENT History: No Pertinent History Cardiac History: Congestive Heart Failure, Coronary Artery Disease, High Cholesterol, Other Respiratory History: Asthma, Bronchitis, COPD, Pneumonia Endocrine Medical History: Hypothyroidism Musculoskeletal History: Arthritis, Osteoporosis GI Medical History: GERD, Hernia, Polyps History: No Pertinent History Psycho-Social History: Anxiety, Bipolar, Depression, Other Female Reproductive Disorders: Fibroids Other Medical History: 2 LEAKY VALVES. BORDERLINE PERSONALITY DISORDER, PTSD, manic depressive. Anemia - Past Surgical History Past Surgical History: Yes Neuro Surgical History: No Pertinent History Cardiac: Cardiac Catheterization Respiratory: No Pertinent History Gastrointestinal: Other Genitourinary: No Pertinent History Musculoskeletal: Other Female Surgical History: Section Other Surgical History: ARM SURGERY-- left wrist laceration from a glass door, 2 c-sections, EGD with dilitation, colonoscopy, heart cath x 2 - Social History Smoking Status: Current every day smoker How long have you smoked: 40 years Exposure to second hand smoke: No Alcohol Use: Socially Drug Use: marijuana Patient Lives Alone: No Significant Family History: no pertinent family hx - Nursing Vital Signs Nursing Vital Signs: Initial Vital Signs Temperature 99 F 03/10/23 15:47 Pulse Rate 93 H 03/10/23 15:47 Respiratory Rate 38 H 03/10/23 15:47 Blood Pressure 141/68 03/10/23 15:47 O2 Sat by Pulse Oximetry 97 03/10/23 15:47 Pain Scale Pain Intensity 6 - Physical Exam General Appearance: moderate distress Eye Exam: PERRL/EOMI Ears, Nose, Throat Exam: hearing grossly normal, normal ENT inspection Neck Exam: normal inspection, supple Respiratory Exam: respiratory distress, airway intact, crackles/rales, rhonchi, wheezing Cardiovascular/Chest Exam: normal heart sounds, regular rate/rhythm Abdominal/Gastrointestinal Exam: soft, No tenderness, No distention, No mass Rectal Exam: deferred Extremity Exam: non-tender Neurologic Exam: alert, oriented x 3, 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, 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 nml as tested, sensation nml, No motor deficits Skin Exam: normal color, warm, No dry SpO2 Interpretation: hypoxic, O2 applied SpO2: 98 O2 Delivery: Nasal Cannula - Course Nursing assessment & vital signs reviewed: Yes EKG Interpreted by Me: RATE (93), Sinus Rhythm, NORMAL AXIS, prolonged QT interval, Non-specific ST Changes - Radiology Exams Chest X-ray Interpretation: Reviewed by me Ordered Tests: Active Orders 24 hr Category Date Time Status Blanket Washer STAT Care 03/10/23 16:10 Active EKG-ER Only STAT Care 03/10/23 15:57 Active IV Insertion STAT Care 03/10/23 15:57 Active IV Insertion-2nd Peripheral STAT Care 03/10/23 16:10 Active Oxygen-ED Only Nasal Cannula 4 lpm Care 03/10/23 15:57 Active CHEST 1 VIEW (PORTABLE) Stat Exams 03/10/23 15:58 Completed BLOOD CULTURE Stat Lab 03/10/23 16:10 Received CBC W DIFF Stat Lab 03/10/23 16:00 Completed CMP Stat Lab 03/10/23 16:00 Completed Lactic Acid Stat Lab 03/10/23 16:37 Completed Manual Differential NC Stat Lab 03/10/23 16:00 Completed NT PRO BNPII Stat Lab 03/10/23 16:00 Completed TROPONIN Q4H Lab 03/10/23 16:00 Completed TROPONIN Q4H Lab 03/10/23 20:00 Ordered TROPONIN Q4H Lab 03/11/23 00:00 Ordered Respiratory Therapy Assessment DAILY RT 03/10/23 16:55 Active Medication Summary Generic Name Dose Route Start Last Admin Trade Name Freq PRN Reason Stop Dose Admin Sodium Chloride 1,000 mls @ 100 mls/hr 03/10/23 16:00 03/10/23 16:19 Sodium Chloride 0.9% 1000 Ml IV 04/09/23 15:59 100 mls/hr .Q10H VALERY Administration Vancomycin HCl 1 gm in 200 mls @ 125 mls/hr 03/10/23 16:30 03/10/23 16:23 Vancomycin 1 Gram/200 Ml Bag IV 04/09/23 16:29 125 ml/hr Q12H VALERY 125 mls/hr Administration Discontinued Medications Generic Name Dose Route Start Last Admin Trade Name Freq PRN Reason Stop Dose Admin Albuterol Sulfate Confirm 03/10/23 16:11 Albuterol Sulfate 2.5 Mg/3 Ml Neb Administered 03/10/23 16:12 Dose 2.5 mg IH .STK-MED ONE Albuterol Sulfate 2.5 mg 03/10/23 16:52 03/10/23 16:55 Albuterol Sulfate 2.5 Mg/3 Ml [facility] 03/10/23 16:53 2.5 mg STAT ONE Administration Albuterol/Ipratropium 3 ml 03/10/23 15:57 Ipratropium/Albuterol Sulfate 3 Ml [facility] 03/10/23 15:58 STAT ONE Methylprednisolone Sodium 0 mg 03/10/23 15:57 03/10/23 16:12 Succinate 125 mg/ Sterile IV 03/10/23 15:58 Not Given Water 2 ml STAT ONE Azithromycin 500 mg in 250 mls @ 250 mls/hr 03/10/23 15:57 03/10/23 16:20 Zithromax 500 Mg/ 250 Ml Nacl Premix IV 03/10/23 16:56 250 ml/hr STAT STA 250 mls/hr Administration Azithromycin Confirm 03/10/23 16:12 Zithromax 500 Mg/ 250 Ml Nacl Premix Administered 03/10/23 16:13 Dose 500 mg in 250 mls @ ud IV .STK-MED ONE Azithromycin Confirm 03/10/23 16:21 Zithromax 500 Mg/ 250 Ml Nacl Premix Administered 03/10/23 16:22 Dose 500 mg in 250 mls @ ud IV .STK-MED ONE Lab/Rad Data: Laboratory Result Diagrams 03/10/23 16:00 03/10/23 16:00 Laboratory Results 03/10/23 03/10/23 03/10/23 Range/Units 16:37 16:00 16:00 WBC (4.0-10.5) x10^3/uL RBC (4.1-5.4) x10^6/uL Hgb (12.0-16.0) g/dL Hct (35-47) % MCV (78-100) fL MCH (26-32) pg MCHC (32-36) g/dL RDW (11.5-14.0) % Plt Count (150-450) x10^3/uL MPV (7.5-11.0) fL Segmented Neutrophils (36.0-66.0) % Band Neutrophils (0.0-2.0) % Lymphocytes (Manual) (24-44) % Monocytes (Manual) (0.0-12.0) % Hypochromia Platelet Estimate (NORMAL) RBC Morphology Polychromasia Anisocytosis Sodium 134 L (137-145) mmol/L Potassium 3.6 (3.5-5.1) mmol/L Chloride 99 (98-107) mmol/L Carbon Dioxide 30 (22-30) mmol/L Anion Gap 8.9 (5-15) MEQ/L BUN 18 H (7-17) mg/dL Creatinine 0.77 (0.52-1.04) mg/dL Estimated GFR 85.6 ML/MIN Glucose 85 (74-106) mg/dL Lactic Acid 2.1 H (0.4-2.0) Calcium 9.0 (8.4-10.2) mg/dL Total Bilirubin 0.60 (0.2-1.3) mg/dL AST 36 (14-36) U/L ALT 17 (0-35) U/L Alkaline Phosphatase 76 (38-126) U/L Troponin I < 0.012 (0.000-0.034) ng/mL NT-Pro-B Natriuret Pep 494 (<300) pg/mL Serum Total Protein 7.0 (6.3-8.2) g/dL Albumin 3.8 (3.5-5.0) g/dL 03/10/23 Range/Units 16:00 WBC 28.8 H* (4.0-10.5) x10^3/uL RBC 3.53 L (4.1-5.4) x10^6/uL Hgb 7.3 L (12.0-16.0) g/dL Hct 28.0 L (35-47) % MCV 79.3 (78-100) fL MCH 20.7 L (26-32) pg MCHC 26.1 L (32-36) g/dL RDW 27.8 H (11.5-14.0) % Plt Count 343 (150-450) x10^3/uL MPV 10.5 (7.5-11.0) fL Segmented Neutrophils 94 H (36.0-66.0) % Band Neutrophils 3 H (0.0-2.0) % Lymphocytes (Manual) 2 L (24-44) % Monocytes (Manual) 1 (0.0-12.0) % Hypochromia 2+ Platelet Estimate NORMAL (NORMAL) RBC Morphology ABNORMAL Polychromasia 2+ Anisocytosis 3+ Sodium (137-145) mmol/L Potassium (3.5-5.1) mmol/L Chloride (98-107) mmol/L Carbon Dioxide (22-30) mmol/L Anion Gap (5-15) MEQ/L BUN (7-17) mg/dL Creatinine (0.52-1.04) mg/dL Estimated GFR ML/MIN Glucose (74-106) mg/dL Lactic Acid (0.4-2.0) Calcium (8.4-10.2) mg/dL Total Bilirubin (0.2-1.3) mg/dL AST (14-36) U/L ALT (0-35) U/L Alkaline Phosphatase (38-126) U/L Troponin I (0.000-0.034) ng/mL NT-Pro-B Natriuret Pep (<300) pg/mL Serum Total Protein (6.3-8.2) g/dL Albumin (3.5-5.0) g/dL - Progress Progress: unchanged Air Movement: fair Blood Culture(s) Obtained: Yes Antibiotics given: Yes Discussed with .: Other (Dr Barnes Excepted the patient in admission. With a diagnosis of COPD and pneumonia and anemia.) Will see patient in: hospital (observation) Medical Desision Making - Discussion of managment Care discussed with:: hospitalist Reviewed:: Test results Agreed on:: Treatment plan, decision to admit Will see patient: in hospital - Diagnostic Testing Diagnostic test were ordered, analyzed, and reviewed by me: Yes Radiological Interpretation: Reviewed by me - Departure Departure Disposition: Observation Clinical Impression: Anemia due to blood loss, chronic, COPD exacerbation, Pneumonia Condition: Fair Critical Care Time: No Referrals: WEN CAMERON MD [Primary Care Provider] - Follow up/PCP as directed Instructions: Chronic Obstructive Pulmonary Disease
[2023-03-10 17:16] LABS: INFLUENZA A NEGATIVE (NEGATIVE); INFLUENZA B NEGATIVE (NEGATIVE); RESPIRATORY SYNCTIAL VIRUS NEGATIVE (NEGATIVE); SARS-CoV-2 Xpert Express NEGATIVE (NEGATIVE)
[2023-03-10 18:05] LABS: ABO TYPING A; Antibody Screen NEGATIVE (NEGATIVE); RH TYPING POSITIVE
--- NOTE | 2023-03-10 18:12 | PCM.HP ---
<ROSA GONZÁLES - Last Filed: 03/10/23 17:42> History of Present Illness - Chief Complaint Chief Complaint: COPD Date: 03/10/23 History of Present Illness: is a 67 year old female with a pmhx of COPD, CHF, CAD, HLD, hypothyroidism, GERD, anxiety, and depression presented to ED 03/10/23 via ambulance with complaints of shortness of breath, productive cough with green sputum, fever/chills for the past day. Patient states she wears 3l of oxygen at baseline. She also reports pain in her LUQ with deep inhalation which she rates 7/10 on numerical pain scale. Upon arrival patient was afebrile, tachpneic, tachycardic, with spo2 @ 97% on 4L. CXR demonstrates new left lower lung infiltrate. EKG RATE (93), Sinus Rhythm, NORMAL AXIS, prolonged QT interval, Non-specific ST Changes. Lab findings remarkable for WBC at 28.8, Hgb 7.3, lactic acid at 2.1, and sodium at 134. Respiratory viral panel negative. Vancomycin, azithromycin, and solumedrol given in ED. - Review of Systems Constitutional: Fever, Chills, Fatigue Eyes: No Symptoms Ears, Nose, & Throat: Nose Congestion Respiratory: Cough, Short Of Breath Cardiac: No Symptoms Abdominal/Gastrointestinal: Abdominal Pain (LUQ) Genitourinary Symptoms: No Symptoms Musculoskeletal: No Symptoms Skin: No Symptoms Neurological: No Symptoms Psychological: No Symptoms Endocrine: No Symptoms Hematologic/Lymphatic: Anemia Medications & Allergies Home Medications: Home Medication List Albuterol/Ipratropium Mdi [Combivent Inhaler] 1 puff IH QID 12/29/12 [History Confirmed 03/10/23] Famotidine 20 mg [Pepcid 20 MG] 20 mg PO BID 12/29/12 [History Confirmed 03/10/23] Fluticasone/Salmeterol Disc [Advair/[place] 250-50 Diskus 14 Dose] 1 puff IH BID 12/29/12 [History Confirmed 03/10/23] Sertraline HCl 100 mg [Zoloft 100 MG] 200 mg PO DAILY 12/17/13 [History Confirmed 03/10/23] Isosorbide Mononitrate 30 mg [Imdur 30 MG] 30 mg PO DAILY 11/05/14 [History Confirmed 03/10/23] Tizanidine HCl 4 mg [Zanaflex 4 MG] 4 mg PO TID 01/16/15 [History Confirmed 03/10/23] Quetiapine Fumarate [Seroquel] 300 mg PO HS 10/17/15 [History Confirmed 03/10/23] Nitroglycerin 0.4 mg Tablet [Nitrostat 0.4 MG Tablet] 0.4 mg SL UD PRN 11/15/15 [History Confirmed 03/10/23] Gabapentin [Neurontin] 2,400 mg PO HS 04/08/20 [History Confirmed 03/10/23] Theophylline Anhydrous [Theophylline ER] 300 mg PO DAILY 12/23/20 [History Confirmed 03/10/23] Fluticasone Propionate [Flonase NASAL] 1 spray NS BID 03/15/21 [History Confirmed 03/10/23] Prednisone 20 mg [Deltasone 20 mg] 10 mg PO BID 03/15/21 [History Confirmed 03/10/23] Levothyroxine Sodium 25 Mcg [Synthroid 25 Mcg] 25 mcg PO DAILY tablet 03/17/21 [Rx Confirmed 03/10/23] Omeprazole 40 mg PO DAILY 10/22/21 [History Confirmed 03/10/23] Albuterol Sulfate Mdi [ALBUTEROL/Proair Hfa MDI] 2 puff IH QID 03/10/23 [History Confirmed 03/10/23] Clonazepam [Klonopin] 2 mg PO BID 03/10/23 [History Confirmed 03/10/23] Ipratropium/Albuterol Sulfate [Combivent Respimat Inhal [place]] 1 puff IH Q4H 03/10/23 [History Confirmed 03/10/23] Nystatin 1 gm TOP TID 03/10/23 [History Confirmed 03/10/23] Quetiapine Fumarate 200 mg PO BID 03/10/23 [History Confirmed 03/11/23] Gabapentin 1,200 mg PO BREAKFAST 03/11/23 [History Confirmed 03/11/23] Allergies/Adverse Reactions: Allergies Allergy/AdvReac Type Severity Reaction Status Date / Time morphine Allergy Severe Fainting Verified 03/10/23 15:47 oxycodone Allergy Shortness Verified 03/10/23 15:47 of Breath Penicillins Allergy Verified 03/10/23 15:47 oxymorphone AdvReac Severe Fainting Verified 03/10/23 15:47 [place] AdvReac Intermediate Headache Verified 03/10/23 15:47 bupropion HCl AdvReac Mild Hives Verified 03/10/23 15:47 [From Wellbutrin] - Past Medical History Past Medical History: Yes Neurological History: Migraines ENT History: No Pertinent History Cardiac History: Congestive Heart Failure, Coronary Artery Disease, High Cholesterol, Other Respiratory History: Asthma, Bronchitis, COPD, Pneumonia Endocrine Medical History: Hypothyroidism Musculoskelatal History: Arthritis, Osteoporosis GI Medical History: GERD, Hernia, Polyps History: No Pertinent History Pyscho-Social History: Anxiety, Bipolar, Depression, Other Reproductive Disorders: Fibroids Comment: 2 LEAKY VALVES. BORDERLINE PERSONALITY DISORDER, PTSD, manic depressive. Anemia - Past Surgical History Past Surgical History: Yes Neuro Surgical History: No Pertinent History Cardiac History: Cardiac Catheterization Respiratory Surgery: No Pertinent History GI Surgical History: Other Genitourinary Surgical Hx: No Pertinent History Musculskeletal Surgical Hx: Other Female Surgical History: Section Other Surgical History: ARM SURGERY-- left wrist laceration from a glass door, 2 c-sections, EGD with dilitation, colonoscopy, heart cath x 2 - Social History Smoking Status: Current every day smoker How long have you smoked: 40 years Exposure to second hand smoke: No Alcohol: None Drug Use: marijuana Significant Family History: no pertinent family hx - Physical Exam Vital Signs: Vital Signs - 24 hr Temp Pulse Resp BP BP Pulse Ox 03/10/23 17:20 98 03/10/23 17:00 88 34 H 125/61 03/10/23 16:32 91 H 32 H 131/71 03/10/23 16:15 92 H 38 H 98 03/10/23 16:00 93 H 32 H 141/70 100 03/10/23 15:57 92 H 38 H 141/68 98 03/10/23 15:47 99 F 93 H 38 H 141/68 97 General Appearance: no apparent distress Neurologic Exam: alert, oriented x 3, cooperative Eye Exam: PERRL/EOMI Ears, Nose, Throat Exam: normal ENT inspection Neck Exam: normal inspection Respiratory Exam: crackles/rales, wheezing Cardiovascular Exam: regular rate/rhythm, normal heart sounds Gastrointestinal/Abdomen Exam: tenderness (LUQ) Pelvic Exam: not done Rectal Exam: deferred Back Exam: normal inspection Extremity Exam: normal inspection Skin Exam: normal color Results - Labs Lab/Micro Results: Lab Results-Last 24 Hours 03/10/23 03/10/23 03/10/23 Range/Units 16:00 16:00 16:00 WBC 28.8 H* (4.0-10.5) x10^3/uL RBC 3.53 L (4.1-5.4) x10^6/uL Hgb 7.3 L (12.0-16.0) g/dL Hct 28.0 L (35-47) % MCV 79.3 (78-100) fL MCH 20.7 L (26-32) pg MCHC 26.1 L (32-36) g/dL RDW 27.8 H (11.5-14.0) % Plt Count 343 (150-450) x10^3/uL MPV 10.5 (7.5-11.0) fL Segmented Neutrophils 94 H (36.0-66.0) % Band Neutrophils 3 H (0.0-2.0) % Lymphocytes (Manual) 2 L (24-44) % Monocytes (Manual) 1 (0.0-12.0) % Hypochromia 2+ Platelet Estimate NORMAL (NORMAL) RBC Morphology ABNORMAL Polychromasia 2+ Anisocytosis 3+ Sodium 134 L (137-145) mmol/L Potassium 3.6 (3.5-5.1) mmol/L Chloride 99 (98-107) mmol/L Carbon Dioxide 30 (22-30) mmol/L Anion Gap 8.9 (5-15) MEQ/L BUN 18 H (7-17) mg/dL Creatinine 0.77 (0.52-1.04) mg/dL Estimated GFR 85.6 ML/MIN Glucose 85 (74-106) mg/dL Lactic Acid (0.4-2.0) Calcium 9.0 (8.4-10.2) mg/dL Total Bilirubin 0.60 (0.2-1.3) mg/dL AST 36 (14-36) U/L ALT 17 (0-35) U/L Alkaline Phosphatase 76 (38-126) U/L Troponin I < 0.012 (0.000-0.034) ng/mL NT-Pro-B Natriuret Pep 494 (<300) pg/mL Serum Total Protein 7.0 (6.3-8.2) g/dL Albumin 3.8 (3.5-5.0) g/dL Influenza Type A Ag (NEGATIVE) Influenza Type B Ag (NEGATIVE) RSV (PCR) (NEGATIVE) SARS-CoV-2 (PCR) (NEGATIVE) 03/10/23 03/10/23 Range/Units 16:15 16:37 WBC (4.0-10.5) x10^3/uL RBC (4.1-5.4) x10^6/uL Hgb (12.0-16.0) g/dL Hct (35-47) % MCV (78-100) fL MCH (26-32) pg MCHC (32-36) g/dL RDW (11.5-14.0) % Plt Count (150-450) x10^3/uL MPV (7.5-11.0) fL Segmented Neutrophils (36.0-66.0) % Band Neutrophils (0.0-2.0) % Lymphocytes (Manual) (24-44) % Monocytes (Manual) (0.0-12.0) % Hypochromia Platelet Estimate (NORMAL) RBC Morphology Polychromasia Anisocytosis Sodium (137-145) mmol/L Potassium (3.5-5.1) mmol/L Chloride (98-107) mmol/L Carbon Dioxide (22-30) mmol/L Anion Gap (5-15) MEQ/L BUN (7-17) mg/dL Creatinine (0.52-1.04) mg/dL Estimated GFR ML/MIN Glucose (74-106) mg/dL Lactic Acid 2.1 H (0.4-2.0) Calcium (8.4-10.2) mg/dL Total Bilirubin (0.2-1.3) mg/dL AST (14-36) U/L ALT (0-35) U/L Alkaline Phosphatase (38-126) U/L Troponin I (0.000-0.034) ng/mL NT-Pro-B Natriuret Pep (<300) pg/mL Serum Total Protein (6.3-8.2) g/dL Albumin (3.5-5.0) g/dL Influenza Type A Ag NEGATIVE (NEGATIVE) Influenza Type B Ag NEGATIVE (NEGATIVE) RSV (PCR) NEGATIVE (NEGATIVE) SARS-CoV-2 (PCR) NEGATIVE (NEGATIVE) - Radiology Impressions Radiology Exams & Impressions: Radiology Procedures Category Date Time Status CHEST 1 VIEW (PORTABLE) Stat Exams 03/10/23 15:58 Completed - Other Procedures and Tests Respiratory Therapy 03/10/23 16:55 Respiratory Therapy Assessment DAILY Assessment/Plan (1) Sepsis Current Visit: Yes Status: Acute Assessment & Plan: -2/2 to pneumonia -CXR demonstrating infiltrates to Left lower lobe -On 3L baseline oxygen, now at 4L, supplemental oxygen for goal >92% -Blood cultures pending -Contraindication for fluid bolus/ CHF -will provide gentle hydration -PCT,LA, CBC, CMP, mg -Strict I&O -Tele -LA elevated at 2.1, will repeat until normal -Vanc and azithromycin started in ED, will continue vanc/cefepime -PT/OT eval -DVT prophylaxis- lovenox 40mg subq daily (2) COPD exacerbation Current Visit: Yes Status: Acute Assessment & Plan: -CXR with left lower/mid lung infiltrate, vanc/cefepime initiated - Duonebs Q4 - Albuterol Q2 PRN - Solumedrol 40mg TID - Mucinex - Incentive Spirometry - Flutter therapy -Smoking Cessation discussion, patient ready to quit, will add nicotine patch +/- Flu shot/Prevnar/ Pneumovax shot Code(s): J44.1 - CHRONIC OBSTRUCTIVE PULMONARY DISEASE W (ACUTE) EXACERBATION (3) Iron deficiency anemia Current Visit: Yes Status: Acute Assessment & Plan: -Chronic -Monitor H&H Q6H, transfuse if hgb <7 Code(s): D50.9 - IRON DEFICIENCY ANEMIA, UNSPECIFIED (4) Pneumonia Current Visit: Yes Status: Acute Assessment & Plan: -CXR with Left mid/lower lung infiltrate -Vanc/cefepime -Supplemental oxygen with goal >92% -Solumedrol 40mg TID -Mucinex -Consider CT if no improvement Code(s): J18.9 - PNEUMONIA, UNSPECIFIED ORGANISM (5) Acute respiratory failure Current Visit: No Status: Acute Qualifiers: Respiratory failure complication: hypoxia and hypercapnia Assessment & Plan: / to COPD exac/ pneumonia -see copd/pneumonia Code(s): J96.00 - ACUTE RESPIRATORY FAILURE, UNSP W HYPOXIA OR HYPERCAPNIA (6) Hypothyroidism Current Visit: No Status: Acute Assessment & Plan: -continue home med levothyroxine Code(s): E03.9 - HYPOTHYROIDISM, UNSPECIFIED (7) CHF (congestive heart failure) Current Visit: Yes Status: Acute Assessment & Plan: -BNP at 494 Code(s): I50.9 - HEART FAILURE, UNSPECIFIED (8) Smoker Current Visit: Yes Status: Acute Assessment & Plan: -Smoking cessation discussed -nicotine patch Code(s): F17.200 - NICOTINE DEPENDENCE, UNSPECIFIED, UNCOMPLICATED <MADHURI ARNDT - Last Filed: 03/11/23 21:08> History of Present Illness - Chief Complaint History of Present Illness: is a 67 year old female. - Physical Exam Vital Signs: Vital Signs - 24 hr Temp Pulse Resp BP Pulse Ox 03/11/23 19:01 83 22 96 03/11/23 18:40 98.4 F 78 20 153/69 99 03/11/23 16:00 98.0 F 82 18 154/84 97 03/11/23 14:55 85 20 95 03/11/23 11:42 97.7 F 87 18 140/67 98 03/11/23 11:18 82 18 95 03/11/23 07:25 97.1 F 79 18 131/70 100 03/11/23 06:59 96 03/11/23 06:58 80 18 96 03/11/23 04:00 76 18 95 03/11/23 00:25 89 24 100 03/11/23 00:00 97.8 F 102 H 22 109/57 99 Results - Labs Lab/Micro Results: Lab Results-Last 24 Hours 03/10/23 03/10/23 03/10/23 Range/Units 17:19 17:19 18:17 WBC (4.0-10.5) x10^3/uL RBC (4.1-5.4) x10^6/uL Hgb (12.0-16.0) g/dL Hct (35-47) % MCV (78-100) fL MCH (26-32) pg MCHC (32-36) g/dL RDW (11.5-14.0) % Plt Count (150-450) x10^3/uL MPV (7.5-11.0) fL Gran % (36.0-66.0) % Immature Gran % (Auto) (0.00-0.4) % Nucleat RBC Rel Count (0.00-0.1) % Eos # (Auto) (0-0.5) x10^3/uL Immature Gran # (Auto) (0.00-0.03) x10^3u/L Absolute Lymphs (auto) (1.0-4.6) x10^3/uL Absolute Monos (auto) (0.0-1.3) x10^3/uL Absolute Nucleated RBC (0.00-0.01) x10^3u/L Lymphocytes % (24.0-44.0) % Monocytes % (0.0-12.0) % Eosinophils % (0.00-5.0) % Basophils % (0.0-0.4) % Absolute Granulocytes (1.4-6.9) x10^3/uL Basophils # (0-0.4) x10^3/uL Sodium (137-145) mmol/L Potassium (3.5-5.1) mmol/L Chloride (98-107) mmol/L Carbon Dioxide (22-30) mmol/L Anion Gap (5-15) MEQ/L BUN (7-17) mg/dL Creatinine (0.52-1.04) mg/dL Estimated GFR ML/MIN Glucose (74-106) mg/dL POC Glucometer (74 to 106) mg/dL Calcium (8.4-10.2) mg/dL Iron (37-170) ug/dL Ferritin (11.1-264) ng/mL Total Bilirubin (0.2-1.3) mg/dL AST (14-36) U/L ALT (0-35) U/L Alkaline Phosphatase (38-126) U/L Troponin I (0.000-0.034) ng/mL Serum Total Protein (6.3-8.2) g/dL Albumin (3.5-5.0) g/dL Vitamin B12 (239-931) pg/mL Folic Acid (2.76 - >20) ng/mL Urine Color Yellow (Yellow) Urine Appearance Clear (Clear) Urine pH 5.5 (4.6-8.0) Ur Specific Winger >=1.030 A (1.005-1.030) Urine Protein Trace A (Negative) Urine Glucose (UA) 500 A (Negative) mg/dL Urine Ketones Negative (Negative) Urine Blood Negative (Negative) Urine Nitrite Negative (Negative) Urine Bilirubin Negative (Negative) Urine Urobilinogen 0.2 (0.2) mg/dL Ur Leukocyte Esterase Negative (Negative) U Hyaline Cast (Auto) NONE SEEN (0-2) /LPF Urine Microscopic RBC 0-2 (0-5) /HPF Urine Microscopic WBC 6-10 A (0-5) /HPF Ur Epithelial Cells Moderate A (None Seen) /HPF Urine Bacteria Few A (None Seen) /HPF Urine Culture Reflexed NO (NO) Crossmatch COMPATIBLE COMPATIBLE (COMPATIBLE) 03/10/23 03/11/23 03/11/23 Range/Units 20:55 00:23 05:05 WBC 16.6 H (4.0-10.5) x10^3/uL RBC 3.09 L (4.1-5.4) x10^6/uL Hgb 6.4 L* (12.0-16.0) g/dL Hct 24.6 L (35-47) % MCV 79.6 (78-100) fL MCH 20.7 L (26-32) pg MCHC 26.0 L (32-36) g/dL RDW 26.8 H (11.5-14.0) % Plt Count 299 (150-450) x10^3/uL MPV 10.0 (7.5-11.0) fL Gran % 95.6 H (36.0-66.0) % Immature Gran % (Auto) 0.5 H (0.00-0.4) % Nucleat RBC Rel Count 0.0 (0.00-0.1) % Eos # (Auto) 0 (0-0.5) x10^3/uL Immature Gran # (Auto) 0.09 H (0.00-0.03) x10^3u/L Absolute Lymphs (auto) 0.39 L (1.0-4.6) x10^3/uL Absolute Monos (auto) 0.23 (0.0-1.3) x10^3/uL Absolute Nucleated RBC 0.00 (0.00-0.01) x10^3u/L Lymphocytes % 2.4 L (24.0-44.0) % Monocytes % 1.4 (0.0-12.0) % Eosinophils % 0.0 (0.00-5.0) % Basophils % 0.1 (0.0-0.4) % Absolute Granulocytes 15.86 H (1.4-6.9) x10^3/uL Basophils # 0.01 (0-0.4) x10^3/uL Sodium (137-145) mmol/L Potassium (3.5-5.1) mmol/L Chloride (98-107) mmol/L Carbon Dioxide (22-30) mmol/L Anion Gap (5-15) MEQ/L BUN (7-17) mg/dL Creatinine (0.52-1.04) mg/dL Estimated GFR ML/MIN Glucose (74-106) mg/dL POC Glucometer (74 to 106) mg/dL Calcium (8.4-10.2) mg/dL Iron (37-170) ug/dL Ferritin (11.1-264) ng/mL Total Bilirubin (0.2-1.3) mg/dL AST (14-36) U/L ALT (0-35) U/L Alkaline Phosphatase (38-126) U/L Troponin I < 0.012 < 0.012 (0.000-0.034) ng/mL Serum Total Protein (6.3-8.2) g/dL Albumin (3.5-5.0) g/dL Vitamin B12 (239-931) pg/mL Folic Acid (2.76 - >20) ng/mL Urine Color (Yellow) Urine Appearance (Clear) Urine pH (4.6-8.0) Ur Specific [place]inger (1.005-1.030) Urine Protein (Negative) Urine Glucose (UA) (Negative) mg/dL Urine Ketones (Negative) Urine Blood (Negative) Urine Nitrite (Negative) Urine Bilirubin (Negative) Urine Urobilinogen (0.2) mg/dL Ur Leukocyte Esterase (Negative) U Hyaline Cast (Auto) (0-2) /LPF Urine Microscopic RBC (0-5) /HPF Urine Microscopic WBC (0-5) /HPF Ur Epithelial Cells (None Seen) /HPF Urine Bacteria (None Seen) /HPF Urine Culture Reflexed (NO) Crossmatch (COMPATIBLE) 03/11/23 03/11/23 03/11/23 Range/Units 05:05 05:20 05:20 WBC (4.0-10.5) x10^3/uL RBC (4.1-5.4) x10^6/uL Hgb (12.0-16.0) g/dL Hct (35-47) % MCV (78-100) fL MCH (26-32) pg MCHC (32-36) g/dL RDW (11.5-14.0) % Plt Count (150-450) x10^3/uL MPV (7.5-11.0) fL Gran % (36.0-66.0) % Immature Gran % (Auto) (0.00-0.4) % Nucleat RBC Rel Count (0.00-0.1) % Eos # (Auto) (0-0.5) x10^3/uL Immature Gran # (Auto) (0.00-0.03) x10^3u/L Absolute Lymphs (auto) (1.0-4.6) x10^3/uL Absolute Monos (auto) (0.0-1.3) x10^3/uL Absolute Nucleated RBC (0.00-0.01) x10^3u/L Lymphocytes % (24.0-44.0) % Monocytes % (0.0-12.0) % Eosinophils % (0.00-5.0) % Basophils % (0.0-0.4) % Absolute Granulocytes (1.4-6.9) x10^3/uL Basophils # (0-0.4) x10^3/uL Sodium 136 L (137-145) mmol/L Potassium 4.1 (3.5-5.1) mmol/L Chloride 104 (98-107) mmol/L Carbon Dioxide 30 (22-30) mmol/L Anion Gap 6.5 (5-15) MEQ/L BUN 16 (7-17) mg/dL Creatinine 0.76 (0.52-1.04) mg/dL Estimated GFR 86.9 ML/MIN Glucose 145 H (74-106) mg/dL POC Glucometer (74 to 106) mg/dL Calcium 8.6 (8.4-10.2) mg/dL Iron 17 L (37-170) ug/dL Ferritin 52.6 (11.1-264) ng/mL Total Bilirubin 0.30 (0.2-1.3) mg/dL AST 22 (14-36) U/L ALT 15 (0-35) U/L Alkaline Phosphatase 61 (38-126) U/L Troponin I (0.000-0.034) ng/mL Serum Total Protein 6.3 (6.3-8.2) g/dL Albumin 3.1 L (3.5-5.0) g/dL Vitamin B12 260 (239-931) pg/mL Folic Acid 8.80 (2.76 - >20) ng/mL Urine Color (Yellow) Urine Appearance (Clear) Urine pH (4.6-8.0) Ur Specific Winger (1.005-1.030) Urine Protein (Negative) Urine Glucose (UA) (Negative) mg/dL Urine Ketones (Negative) Urine Blood (Negative) Urine Nitrite (Negative) Urine Bilirubin (Negative) Urine Urobilinogen (0.2) mg/dL Ur Leukocyte Esterase (Negative) U Hyaline Cast (Auto) (0-2) /LPF Urine Microscopic RBC (0-5) /HPF Urine Microscopic WBC (0-5) /HPF Ur Epithelial Cells (None Seen) /HPF Urine Bacteria (None Seen) /HPF Urine Culture Reflexed (NO) Crossmatch (COMPATIBLE) 03/11/23 03/11/23 03/11/23 Range/Units 07:11 11:35 16:24 WBC (4.0-10.5) x10^3/uL RBC (4.1-5.4) x10^6/uL Hgb 9.0 L D (12.0-16.0) g/dL Hct 31.4 L (35-47) % MCV (78-100) fL MCH (26-32) pg MCHC (32-36) g/dL RDW (11.5-14.0) % Plt Count (150-450) x10^3/uL MPV (7.5-11.0) fL Gran % (36.0-66.0) % Immature Gran % (Auto) (0.00-0.4) % Nucleat RBC Rel Count (0.00-0.1) % Eos # (Auto) (0-0.5) x10^3/uL Immature Gran # (Auto) (0.00-0.03) x10^3u/L Absolute Lymphs (auto) (1.0-4.6) x10^3/uL Absolute Monos (auto) (0.0-1.3) x10^3/uL Absolute Nucleated RBC (0.00-0.01) x10^3u/L Lymphocytes % (24.0-44.0) % Monocytes % (0.0-12.0) % Eosinophils % (0.00-5.0) % Basophils % (0.0-0.4) % Absolute Granulocytes (1.4-6.9) x10^3/uL Basophils # (0-0.4) x10^3/uL Sodium (137-145) mmol/L Potassium (3.5-5.1) mmol/L Chloride (98-107) mmol/L Carbon Dioxide (22-30) mmol/L Anion Gap (5-15) MEQ/L BUN (7-17) mg/dL Creatinine (0.52-1.04) mg/dL Estimated GFR ML/MIN Glucose (74-106) mg/dL POC Glucometer 136 H 286 H (74 to 106) mg/dL Calcium (8.4-10.2) mg/dL Iron (37-170) ug/dL Ferritin (11.1-264) ng/mL Total Bilirubin (0.2-1.3) mg/dL AST (14-36) U/L ALT (0-35) U/L Alkaline Phosphatase (38-126) U/L Troponin I (0.000-0.034) ng/mL Serum Total Protein (6.3-8.2) g/dL Albumin (3.5-5.0) g/dL Vitamin B12 (239-931) pg/mL Folic Acid (2.76 - >20) ng/mL Urine Color (Yellow) Urine Appearance (Clear) Urine pH (4.6-8.0) Ur Specific Winger (1.005-1.030) Urine Protein (Negative) Urine Glucose (UA) (Negative) mg/dL Urine Ketones (Negative) Urine Blood (Negative) Urine Nitrite (Negative) Urine Bilirubin (Negative) Urine Urobilinogen (0.2) mg/dL Ur Leukocyte Esterase (Negative) U Hyaline Cast (Auto) (0-2) /LPF Urine Microscopic RBC (0-5) /HPF Urine Microscopic WBC (0-5) /HPF Ur Epithelial Cells (None Seen) /HPF Urine Bacteria (None Seen) /HPF Urine Culture Reflexed (NO) Crossmatch (COMPATIBLE) - Radiology Impressions Radiology Exams & Impressions: Radiology Procedures Category Date Time Status CHEST 1 VIEW (PORTABLE) Stat Exams 03/10/23 15:58 Completed CHEST WITH CONTRAST [CT] Urgent Exams 03/11/23 09:28 Completed VENOUS BILATERAL EXTREMITY [US] Routine Exams 03/11/23 11:19 Completed JAIMIE Encounter - JAIMIE Encounter Attestation JAIMIE Encounter Attestation: "REILLY Redmond andhavediscussed pertinent aspects of their care with Rosa Rodriguez agree with the history, physical exam (any modifications based on my personal exam will be noted below), assessment, and plan as outlined in original note. Please see immediately below for my summary of findings and additional assessment and plan along with any meaningful corrections/explanations to the Subjective/Objective portions of the JAIMIE note will be noted." My portion of the encounter took place via telemedicine. -COPD exacerbation and pneumonia. Admit for IV antibiotics, steroids, nebs, oxygen support.
[2023-03-10] MEDS ORDERED: MAXIPIME 1 GM IV SCH (18:15)
[2023-03-10] MEDS ORDERED: Nitrostat 0.4 MG Tablet SL PRN (19:04)
[2023-03-10] MEDS ORDERED: PROTONIX 40 MG IV IV SCH (19:15)
[2023-03-10] MEDS ORDERED: NON-FORMULARY ITEM (Gabapentin [Neurontin] 800 MG Tablet) PO SCH (22:00)
[2023-03-10] MEDS ORDERED: ROCEPHIN 1 Gm-D5w 50 ml Bag** 1 G/50 ML IVPB IV SCH (22:00)
[2023-03-10] MEDS ORDERED: NON-FORMULARY ITEM (Nystatin [Nystatin] 1 EACH Powder.Ea.) TOP SCH (22:00)
[2023-03-10] MEDS ORDERED: solu-MEDROL ONE (22:02)
[2023-03-10] MEDS ORDERED: Neurontin ONE (22:04)
[2023-03-10] MEDS ORDERED: Sterile H2O 10 ml IJ ONE (22:04)
[2023-03-10] MEDS: solu-MEDROL 40 MG, Sterile H2O 10 ml 1 ML IV SCH ×2 (22:15)
[2023-03-10] MEDS: Mucinex 600MG ER Tabs PO SCH (22:16)
[2023-03-10] MEDS: Nicoderm CQ 21 MG TOP SCH (22:30)
[2023-03-10] MEDS: KLONOPIN PO SCH (22:57)
[2023-03-10] MEDS ORDERED: NYSTOP POWDER 15 GM ONE (23:03)
[2023-03-11] MEDS: DUONEB 0.5-3 MG/3 ml Neb IH SCH ×5 (00:25→18:40)
[2023-03-11] MEDS: Sodium Chloride 0.9% 1000 ML 1,000 ML IV SCH ×2 (00:34→11:00)
[2023-03-11] MEDS: VANCOMYCIN 1 GRAM/200 ML BAG 1 GM/200 ML PIGGYBACK IV SCH (04:28)
[2023-03-11 05:10] LABS: Absolute Neutrophil Ct (ANC) 15.86 x10^3/uL (1.4-6.9); BASOPHIL % 0.1 % (0.0-0.4); Basophil (Absolute #) 0.01 x10^3/uL (0-0.4); Eosinophil (Absolute #) 0 x10^3/uL (0-0.5); Hematocrit 24.6 % (35-47); IMMATURE GRAN # 0.09 x10^3u/L (0.00-0.03); IMMATURE GRAN % 0.5 % (0.00-0.4); Lymphocyte (Absolute #) 0.39 x10^3/uL (1.0-4.6); Lymphocytes % 2.4 % (24.0-44.0); Mean Cell Volume 79.6 fL (78-100); Mean Corpuscular Hemoglobin 20.7 pg (26-32); Monocyte (Absolute #) 0.23 x10^3/uL (0.0-1.3); Monocytes % 1.4 % (0.0-12.0); Neutrophil % 95.6 % (36.0-66.0); Platelet Count 299 x10^3/uL (150-450); Red Blood Count 3.09 x10^6/uL (4.1-5.4); Red Cell Distribution Width 26.8 % (11.5-14.0); White Blood Count 16.6 x10^3/uL (4.0-10.5)
--- NOTE | 2023-03-11 05:15 | PCM.NOTE ---
Date and Time: 03/11/23 0514 Subjective Assessment: is a 67 year old female with a pmhx of COPD, CHF, CAD, HLD, hypothyroidism, GERD, anxiety, and depression presented to ED 03/10/23 via ambulance with complaints of shortness of breath, productive cough with green sputum, fever/chills for the past day. Patient states she wears 3l of oxygen at baseline. She also reports pain in her LUQ with deep inhalation which she rates 7/10 on numerical pain scale. Upon arrival patient was afebrile, tachpneic, tachycardic, with spo2 @ 97% on 4L. CXR demonstrates new left lower lung infiltrate. EKG RATE (93), Sinus Rhythm, NORMAL AXIS, prolonged QT interval, Non-specific ST Changes. Lab findings remarkable for WBC at 28.8, Hgb 7.3, lactic acid at 2.1, and sodium at 134. Respiratory viral panel negative. Vancomycin, azithromycin, and solumedrol given in ED. Vanc/cefepime/solumedrol continued. 03/11/23: Met with patient bedside. Dyspnea and cough improved. States sputum is now clear. Discussed lab findings with decreased WBC today of 16.6 (28.8), Hgb at 6.4. Will continue IV abx/steroid/inh for now. Blood cultures pending. CTA chest pending. <ROSA GONZÁLES - Last Filed: 03/11/23 11:10> Date and Time: 03/11/232108 <MADHURI ARNDT - Last Filed: 03/11/23 21:11> - Review of Systems Constitutional: No Symptoms Eyes: No Symptoms Ears, Nose, & Throat: No Symptoms Respiratory: Cough, Short Of Breath Cardiac: No Symptoms Abdominal/Gastrointestinal: No Symptoms Genitourinary Symptoms: No Symptoms Musculoskeletal: No Symptoms Skin: No Symptoms Neurological: No Symptoms Psychological: No Symptoms Endocrine: No Symptoms Hematologic/Lymphatic: No Symptoms Immunological/Allergic: No Symptoms <ROSA GONZÁLES - Last Filed: 03/11/23 11:10> Objective Exam General Appearance: no apparent distress Neurologic Exam: alert, oriented x 3, cooperative Skin Exam: normal color Eye Exam: PERRL Ears, Nose, Throat Exam: normal ENT inspection Neck Exam: normal inspection Respiratory Exam: diminished breath sounds, wheezing Cardiovascular Exam: regular rate/rhythm, normal heart sounds Gastrointestinal/Abdomen Exam: soft, normal bowel sounds Extremity Exam: normal inspection Back Exam: normal inspection <ROSA GONZÁLES - Last Filed: 03/11/23 11:10> OBJECTIVE DATA Vital Signs: Vital Signs - 24 hr Temp Pulse Resp BP BP Pulse Ox 03/11/23 04:00 76 18 95 03/11/23 00:25 89 24 100 03/11/23 00:00 97.8 F 102 H 22 109/57 99 03/10/23 20:05 69 20 95 03/10/23 20:00 98.4 F 69 20 124/61 95 03/10/23 17:51 98.4 F 87 28 H 124/61 100 03/10/23 17:20 98 03/10/23 17:00 88 34 H 125/61 03/10/23 16:32 91 H 32 H 131/71 03/10/23 16:15 92 H 38 H 98 03/10/23 16:00 93 H 32 H 141/70 100 03/10/23 15:57 92 H 38 H 141/68 98 03/10/23 15:47 99 F 93 H 38 H 141/68 97 Pain Assessment - Last Documented Pain Intensity 4 Intake and Output: Intake & Output 03/08/23 03/09/23 03/10/23 03/11/23 11:59 11:59 11:59 11:59 Intake Total 100 Balance 100 Weight 72.3 kg Lab Results: Lab Results-Last 24 Hours 03/10/23 03/10/23 03/10/23 Range/Units 16:00 16:00 16:00 WBC 28.8 H* (4.0-10.5) x10^3/uL RBC 3.53 L (4.1-5.4) x10^6/uL Hgb 7.3 L (12.0-16.0) g/dL Hct 28.0 L (35-47) % MCV 79.3 (78-100) fL MCH 20.7 L (26-32) pg MCHC 26.1 L (32-36) g/dL RDW 27.8 H (11.5-14.0) % Plt Count 343 (150-450) x10^3/uL MPV 10.5 (7.5-11.0) fL Segmented Neutrophils 94 H (36.0-66.0) % Band Neutrophils 3 H (0.0-2.0) % Lymphocytes (Manual) 2 L (24-44) % Monocytes (Manual) 1 (0.0-12.0) % Hypochromia 2+ Platelet Estimate NORMAL (NORMAL) RBC Morphology ABNORMAL Polychromasia 2+ Anisocytosis 3+ Sodium 134 L (137-145) mmol/L Potassium 3.6 (3.5-5.1) mmol/L Chloride 99 (98-107) mmol/L Carbon Dioxide 30 (22-30) mmol/L Anion Gap 8.9 (5-15) MEQ/L BUN 18 H (7-17) mg/dL Creatinine 0.77 (0.52-1.04) mg/dL Estimated GFR 85.6 ML/MIN Glucose 85 (74-106) mg/dL POC Glucometer (74 to 106) mg/dL Lactic Acid (0.4-2.0) Calcium 9.0 (8.4-10.2) mg/dL Magnesium (1.6-2.3) mg/dL Total Bilirubin 0.60 (0.2-1.3) mg/dL AST 36 (14-36) U/L ALT 17 (0-35) U/L Alkaline Phosphatase 76 (38-126) U/L Troponin I < 0.012 (0.000-0.034) ng/mL NT-Pro-B Natriuret Pep 494 (<300) pg/mL Serum Total Protein 7.0 (6.3-8.2) g/dL Albumin 3.8 (3.5-5.0) g/dL Procalcitonin (0.030-0.080) ng/mL Nasal Screen MRSA (PCR) (NEGATIVE) Influenza Type A Ag (NEGATIVE) Influenza Type B Ag (NEGATIVE) RSV (PCR) (NEGATIVE) SARS-CoV-2 (PCR) (NEGATIVE) ABO Group Rh Factor Antibody Screen (NEGATIVE) 03/10/23 03/10/23 03/10/23 Range/Units 16:00 16:00 16:15 WBC (4.0-10.5) x10^3/uL RBC (4.1-5.4) x10^6/uL Hgb (12.0-16.0) g/dL Hct (35-47) % MCV (78-100) fL MCH (26-32) pg MCHC (32-36) g/dL RDW (11.5-14.0) % Plt Count (150-450) x10^3/uL MPV (7.5-11.0) fL Segmented Neutrophils (36.0-66.0) % Band Neutrophils (0.0-2.0) % Lymphocytes (Manual) (24-44) % Monocytes (Manual) (0.0-12.0) % Hypochromia Platelet Estimate (NORMAL) RBC Morphology Polychromasia Anisocytosis Sodium (137-145) mmol/L Potassium (3.5-5.1) mmol/L Chloride (98-107) mmol/L Carbon Dioxide (22-30) mmol/L Anion Gap (5-15) MEQ/L BUN (7-17) mg/dL Creatinine (0.52-1.04) mg/dL Estimated GFR ML/MIN Glucose (74-106) mg/dL POC Glucometer (74 to 106) mg/dL Lactic Acid (0.4-2.0) Calcium (8.4-10.2) mg/dL Magnesium 2.2 (1.6-2.3) mg/dL Total Bilirubin (0.2-1.3) mg/dL AST (14-36) U/L ALT (0-35) U/L Alkaline Phosphatase (38-126) U/L Troponin I (0.000-0.034) ng/mL NT-Pro-B Natriuret Pep (<300) pg/mL Serum Total Protein (6.3-8.2) g/dL Albumin (3.5-5.0) g/dL Procalcitonin 8.700 H* (0.030-0.080) ng/mL Nasal Screen MRSA (PCR) (NEGATIVE) Influenza Type A Ag NEGATIVE (NEGATIVE) Influenza Type B Ag NEGATIVE (NEGATIVE) RSV (PCR) NEGATIVE (NEGATIVE) SARS-CoV-2 (PCR) NEGATIVE (NEGATIVE) ABO Group Rh Factor Antibody Screen (NEGATIVE) 03/10/23 03/10/23 03/10/23 Range/Units 16:37 17:19 18:22 WBC (4.0-10.5) x10^3/uL RBC (4.1-5.4) x10^6/uL Hgb (12.0-16.0) g/dL Hct (35-47) % MCV (78-100) fL MCH (26-32) pg MCHC (32-36) g/dL RDW (11.5-14.0) % Plt Count (150-450) x10^3/uL MPV (7.5-11.0) fL Segmented Neutrophils (36.0-66.0) % Band Neutrophils (0.0-2.0) % Lymphocytes (Manual) (24-44) % Monocytes (Manual) (0.0-12.0) % Hypochromia Platelet Estimate (NORMAL) RBC Morphology Polychromasia Anisocytosis Sodium (137-145) mmol/L Potassium (3.5-5.1) mmol/L Chloride (98-107) mmol/L Carbon Dioxide (22-30) mmol/L Anion Gap (5-15) MEQ/L BUN (7-17) mg/dL Creatinine (0.52-1.04) mg/dL Estimated GFR ML/MIN Glucose (74-106) mg/dL POC Glucometer (74 to 106) mg/dL Lactic Acid 2.1 H (0.4-2.0) Calcium (8.4-10.2) mg/dL Magnesium (1.6-2.3) mg/dL Total Bilirubin (0.2-1.3) mg/dL AST (14-36) U/L ALT (0-35) U/L Alkaline Phosphatase (38-126) U/L Troponin I (0.000-0.034) ng/mL NT-Pro-B Natriuret Pep (<300) pg/mL Serum Total Protein (6.3-8.2) g/dL Albumin (3.5-5.0) g/dL Procalcitonin (0.030-0.080) ng/mL Nasal Screen MRSA (PCR) DETECTED A (NEGATIVE) Influenza Type A Ag (NEGATIVE) Influenza Type B Ag (NEGATIVE) RSV (PCR) (NEGATIVE) SARS-CoV-2 (PCR) (NEGATIVE) ABO Group A Rh Factor POSITIVE Antibody Screen NEGATIVE (NEGATIVE) 03/10/23 03/10/23 03/10/23 Range/Units 18:45 20:55 21:00 WBC (4.0-10.5) x10^3/uL RBC (4.1-5.4) x10^6/uL Hgb (12.0-16.0) g/dL Hct (35-47) % MCV (78-100) fL MCH (26-32) pg MCHC (32-36) g/dL RDW (11.5-14.0) % Plt Count (150-450) x10^3/uL MPV (7.5-11.0) fL Segmented Neutrophils (36.0-66.0) % Band Neutrophils (0.0-2.0) % Lymphocytes (Manual) (24-44) % Monocytes (Manual) (0.0-12.0) % Hypochromia Platelet Estimate (NORMAL) RBC Morphology Polychromasia Anisocytosis Sodium (137-145) mmol/L Potassium (3.5-5.1) mmol/L Chloride (98-107) mmol/L Carbon Dioxide (22-30) mmol/L Anion Gap (5-15) MEQ/L BUN (7-17) mg/dL Creatinine (0.52-1.04) mg/dL Estimated GFR ML/MIN Glucose (74-106) mg/dL POC Glucometer 206 H (74 to 106) mg/dL Lactic Acid 1.5 (0.4-2.0) Calcium (8.4-10.2) mg/dL Magnesium (1.6-2.3) mg/dL Total Bilirubin (0.2-1.3) mg/dL AST (14-36) U/L ALT (0-35) U/L Alkaline Phosphatase (38-126) U/L Troponin I < 0.012 (0.000-0.034) ng/mL NT-Pro-B Natriuret Pep (<300) pg/mL Serum Total Protein (6.3-8.2) g/dL Albumin (3.5-5.0) g/dL Procalcitonin (0.030-0.080) ng/mL Nasal Screen MRSA (PCR) (NEGATIVE) Influenza Type A Ag (NEGATIVE) Influenza Type B Ag (NEGATIVE) RSV (PCR) (NEGATIVE) SARS-CoV-2 (PCR) (NEGATIVE) ABO Group Rh Factor Antibody Screen (NEGATIVE) 03/11/23 Range/Units 00:23 WBC (4.0-10.5) x10^3/uL RBC (4.1-5.4) x10^6/uL Hgb (12.0-16.0) g/dL Hct (35-47) % MCV (78-100) fL MCH (26-32) pg MCHC (32-36) g/dL RDW (11.5-14.0) % Plt Count (150-450) x10^3/uL MPV (7.5-11.0) fL Segmented Neutrophils (36.0-66.0) % Band Neutrophils (0.0-2.0) % Lymphocytes (Manual) (24-44) % Monocytes (Manual) (0.0-12.0) % Hypochromia Platelet Estimate (NORMAL) RBC Morphology Polychromasia Anisocytosis Sodium (137-145) mmol/L Potassium (3.5-5.1) mmol/L Chloride (98-107) mmol/L Carbon Dioxide (22-30) mmol/L Anion Gap (5-15) MEQ/L BUN (7-17) mg/dL Creatinine (0.52-1.04) mg/dL Estimated GFR ML/MIN Glucose (74-106) mg/dL POC Glucometer (74 to 106) mg/dL Lactic Acid (0.4-2.0) Calcium (8.4-10.2) mg/dL Magnesium (1.6-2.3) mg/dL Total Bilirubin (0.2-1.3) mg/dL AST (14-36) U/L ALT (0-35) U/L Alkaline Phosphatase (38-126) U/L Troponin I < 0.012 (0.000-0.034) ng/mL NT-Pro-B Natriuret Pep (<300) pg/mL Serum Total Protein (6.3-8.2) g/dL Albumin (3.5-5.0) g/dL Procalcitonin (0.030-0.080) ng/mL Nasal Screen MRSA (PCR) (NEGATIVE) Influenza Type A Ag (NEGATIVE) Influenza Type B Ag (NEGATIVE) RSV (PCR) (NEGATIVE) SARS-CoV-2 (PCR) (NEGATIVE) ABO Group Rh Factor Antibody Screen (NEGATIVE) Radiology Exams: Radiology Procedures Category Date Time Status CHEST 1 VIEW (PORTABLE) Stat Exams 03/10/23 15:58 Completed <ROSA GONZÁLES - Last Filed: 03/11/23 11:10> Vital Signs: Vital Signs - 24 hr Temp Pulse Resp BP Pulse Ox 03/11/23 19:01 83 22 96 03/11/23 18:40 98.4 F 78 20 153/69 99 03/11/23 16:00 98.0 F 82 18 154/84 97 03/11/23 14:55 85 20 95 03/11/23 11:42 97.7 F 87 18 140/67 98 03/11/23 11:18 82 18 95 03/11/23 07:25 97.1 F 79 18 131/70 100 03/11/23 06:59 96 03/11/23 06:58 80 18 96 03/11/23 04:00 76 18 95 03/11/23 00:25 89 24 100 03/11/23 00:00 97.8 F 102 H 22 109/57 99 Pain Assessment - Last Documented Pain Intensity 0 Pain Scale Used 0-10 Pain Scale Intake and Output: Intake & Output 03/09/23 03/10/23 03/11/23 03/12/23 11:59 11:59 11:59 11:59 Intake Total 340 2916 Balance 340 2916 Weight 72.3 kg Lab Results: Lab Results-Last 24 Hours 03/10/23 03/10/23 03/10/23 Range/Units 17:19 17:19 18:17 WBC (4.0-10.5) x10^3/uL RBC (4.1-5.4) x10^6/uL Hgb (12.0-16.0) g/dL Hct (35-47) % MCV (78-100) fL MCH (26-32) pg MCHC (32-36) g/dL RDW (11.5-14.0) % Plt Count (150-450) x10^3/uL MPV (7.5-11.0) fL Gran % (36.0-66.0) % Immature Gran % (Auto) (0.00-0.4) % Nucleat RBC Rel Count (0.00-0.1) % Eos # (Auto) (0-0.5) x10^3/uL Immature Gran # (Auto) (0.00-0.03) x10^3u/L Absolute Lymphs (auto) (1.0-4.6) x10^3/uL Absolute Monos (auto) (0.0-1.3) x10^3/uL Absolute Nucleated RBC (0.00-0.01) x10^3u/L Lymphocytes % (24.0-44.0) % Monocytes % (0.0-12.0) % Eosinophils % (0.00-5.0) % Basophils % (0.0-0.4) % Absolute Granulocytes (1.4-6.9) x10^3/uL Basophils # (0-0.4) x10^3/uL Sodium (137-145) mmol/L Potassium (3.5-5.1) mmol/L Chloride (98-107) mmol/L Carbon Dioxide (22-30) mmol/L Anion Gap (5-15) MEQ/L BUN (7-17) mg/dL Creatinine (0.52-1.04) mg/dL Estimated GFR ML/MIN Glucose (74-106) mg/dL POC Glucometer (74 to 106) mg/dL Calcium (8.4-10.2) mg/dL Iron (37-170) ug/dL Ferritin (11.1-264) ng/mL Total Bilirubin (0.2-1.3) mg/dL AST (14-36) U/L ALT (0-35) U/L Alkaline Phosphatase (38-126) U/L Troponin I (0.000-0.034) ng/mL Serum Total Protein (6.3-8.2) g/dL Albumin (3.5-5.0) g/dL Vitamin B12 (239-931) pg/mL Folic Acid (2.76 - >20) ng/mL Urine Color Yellow (Yellow) Urine Appearance Clear (Clear) Urine pH 5.5 (4.6-8.0) Ur Specific [place] >=1.030 A (1.005-1.030) Urine Protein Trace A (Negative) Urine Glucose (UA) 500 A (Negative) mg/dL Urine Ketones Negative (Negative) Urine Blood Negative (Negative) Urine Nitrite Negative (Negative) Urine Bilirubin Negative (Negative) Urine Urobilinogen 0.2 (0.2) mg/dL Ur Leukocyte Esterase Negative (Negative) U Hyaline Cast (Auto) NONE SEEN (0-2) /LPF Urine Microscopic RBC 0-2 (0-5) /HPF Urine Microscopic WBC 6-10 A (0-5) /HPF Ur Epithelial Cells Moderate A (None Seen) /HPF Urine Bacteria Few A (None Seen) /HPF Urine Culture Reflexed NO (NO) Crossmatch COMPATIBLE COMPATIBLE (COMPATIBLE) 03/10/23 03/11/23 03/11/23 Range/Units 20:55 00:23 05:05 WBC 16.6 H (4.0-10.5) x10^3/uL RBC 3.09 L (4.1-5.4) x10^6/uL Hgb 6.4 L* (12.0-16.0) g/dL Hct 24.6 L (35-47) % MCV 79.6 (78-100) fL MCH 20.7 L (26-32) pg MCHC 26.0 L (32-36) g/dL RDW 26.8 H (11.5-14.0) % Plt Count 299 (150-450) x10^3/uL MPV 10.0 (7.5-11.0) fL Gran % 95.6 H (36.0-66.0) % Immature Gran % (Auto) 0.5 H (0.00-0.4) % Nucleat RBC Rel Count 0.0 (0.00-0.1) % Eos # (Auto) 0 (0-0.5) x10^3/uL Immature Gran # (Auto) 0.09 H (0.00-0.03) x10^3u/L Absolute Lymphs (auto) 0.39 L (1.0-4.6) x10^3/uL Absolute Monos (auto) 0.23 (0.0-1.3) x10^3/uL Absolute Nucleated RBC 0.00 (0.00-0.01) x10^3u/L Lymphocytes % 2.4 L (24.0-44.0) % Monocytes % 1.4 (0.0-12.0) % Eosinophils % 0.0 (0.00-5.0) % Basophils % 0.1 (0.0-0.4) % Absolute Granulocytes 15.86 H (1.4-6.9) x10^3/uL Basophils # 0.01 (0-0.4) x10^3/uL Sodium (137-145) mmol/L Potassium (3.5-5.1) mmol/L Chloride (98-107) mmol/L Carbon Dioxide (22-30) mmol/L Anion Gap (5-15) MEQ/L BUN (7-17) mg/dL Creatinine (0.52-1.04) mg/dL Estimated GFR ML/MIN Glucose (74-106) mg/dL POC Glucometer (74 to 106) mg/dL Calcium (8.4-10.2) mg/dL Iron (37-170) ug/dL Ferritin (11.1-264) ng/mL Total Bilirubin (0.2-1.3) mg/dL AST (14-36) U/L ALT (0-35) U/L Alkaline Phosphatase (38-126) U/L Troponin I < 0.012 < 0.012 (0.000-0.034) ng/mL Serum Total Protein (6.3-8.2) g/dL Albumin (3.5-5.0) g/dL Vitamin B12 (239-931) pg/mL Folic Acid (2.76 - >20) ng/mL Urine Color (Yellow) Urine Appearance (Clear) Urine pH (4.6-8.0) Ur Specific [place] (1.005-1.030) Urine Protein (Negative) Urine Glucose (UA) (Negative) mg/dL Urine Ketones (Negative) Urine Blood (Negative) Urine Nitrite (Negative) Urine Bilirubin (Negative) Urine Urobilinogen (0.2) mg/dL Ur Leukocyte Esterase (Negative) U Hyaline Cast (Auto) (0-2) /LPF Urine Microscopic RBC (0-5) /HPF Urine Microscopic WBC (0-5) /HPF Ur Epithelial Cells (None Seen) /HPF Urine Bacteria (None Seen) /HPF Urine Culture Reflexed (NO) Crossmatch (COMPATIBLE) 03/11/23 03/11/23 03/11/23 Range/Units 05:05 05:20 05:20 WBC (4.0-10.5) x10^3/uL RBC (4.1-5.4) x10^6/uL Hgb (12.0-16.0) g/dL Hct (35-47) % MCV (78-100) fL MCH (26-32) pg MCHC (32-36) g/dL RDW (11.5-14.0) % Plt Count (150-450) x10^3/uL MPV (7.5-11.0) fL Gran % (36.0-66.0) % Immature Gran % (Auto) (0.00-0.4) % Nucleat RBC Rel Count (0.00-0.1) % Eos # (Auto) (0-0.5) x10^3/uL Immature Gran # (Auto) (0.00-0.03) x10^3u/L Absolute Lymphs (auto) (1.0-4.6) x10^3/uL Absolute Monos (auto) (0.0-1.3) x10^3/uL Absolute Nucleated RBC (0.00-0.01) x10^3u/L Lymphocytes % (24.0-44.0) % Monocytes % (0.0-12.0) % Eosinophils % (0.00-5.0) % Basophils % (0.0-0.4) % Absolute Granulocytes (1.4-6.9) x10^3/uL Basophils # (0-0.4) x10^3/uL Sodium 136 L (137-145) mmol/L Potassium 4.1 (3.5-5.1) mmol/L Chloride 104 (98-107) mmol/L Carbon Dioxide 30 (22-30) mmol/L Anion Gap 6.5 (5-15) MEQ/L BUN 16 (7-17) mg/dL Creatinine 0.76 (0.52-1.04) mg/dL Estimated GFR 86.9 ML/MIN Glucose 145 H (74-106) mg/dL POC Glucometer (74 to 106) mg/dL Calcium 8.6 (8.4-10.2) mg/dL Iron 17 L (37-170) ug/dL Ferritin 52.6 (11.1-264) ng/mL Total Bilirubin 0.30 (0.2-1.3) mg/dL AST 22 (14-36) U/L ALT 15 (0-35) U/L Alkaline Phosphatase 61 (38-126) U/L Troponin I (0.000-0.034) ng/mL Serum Total Protein 6.3 (6.3-8.2) g/dL Albumin 3.1 L (3.5-5.0) g/dL Vitamin B12 260 (239-931) pg/mL Folic Acid 8.80 (2.76 - >20) ng/mL Urine Color (Yellow) Urine Appearance (Clear) Urine pH (4.6-8.0) Ur Specific [place] (1.005-1.030) Urine Protein (Negative) Urine Glucose (UA) (Negative) mg/dL Urine Ketones (Negative) Urine Blood (Negative) Urine Nitrite (Negative) Urine Bilirubin (Negative) Urine Urobilinogen (0.2) mg/dL Ur Leukocyte Esterase (Negative) U Hyaline Cast (Auto) (0-2) /LPF Urine Microscopic RBC (0-5) /HPF Urine Microscopic WBC (0-5) /HPF Ur Epithelial Cells (None Seen) /HPF Urine Bacteria (None Seen) /HPF Urine Culture Reflexed (NO) Crossmatch (COMPATIBLE) 03/11/23 03/11/23 03/11/23 Range/Units 07:11 11:35 16:24 WBC (4.0-10.5) x10^3/uL RBC (4.1-5.4) x10^6/uL Hgb 9.0 L D (12.0-16.0) g/dL Hct 31.4 L (35-47) % MCV (78-100) fL MCH (26-32) pg MCHC (32-36) g/dL RDW (11.5-14.0) % Plt Count (150-450) x10^3/uL MPV (7.5-11.0) fL Gran % (36.0-66.0) % Immature Gran % (Auto) (0.00-0.4) % Nucleat RBC Rel Count (0.00-0.1) % Eos # (Auto) (0-0.5) x10^3/uL Immature Gran # (Auto) (0.00-0.03) x10^3u/L Absolute Lymphs (auto) (1.0-4.6) x10^3/uL Absolute Monos (auto) (0.0-1.3) x10^3/uL Absolute Nucleated RBC (0.00-0.01) x10^3u/L Lymphocytes % (24.0-44.0) % Monocytes % (0.0-12.0) % Eosinophils % (0.00-5.0) % Basophils % (0.0-0.4) % Absolute Granulocytes (1.4-6.9) x10^3/uL Basophils # (0-0.4) x10^3/uL Sodium (137-145) mmol/L Potassium (3.5-5.1) mmol/L Chloride (98-107) mmol/L Carbon Dioxide (22-30) mmol/L Anion Gap (5-15) MEQ/L BUN (7-17) mg/dL Creatinine (0.52-1.04) mg/dL Estimated GFR ML/MIN Glucose (74-106) mg/dL POC Glucometer 136 H 286 H (74 to 106) mg/dL Calcium (8.4-10.2) mg/dL Iron (37-170) ug/dL Ferritin (11.1-264) ng/mL Total Bilirubin (0.2-1.3) mg/dL AST (14-36) U/L ALT (0-35) U/L Alkaline Phosphatase (38-126) U/L Troponin I (0.000-0.034) ng/mL Serum Total Protein (6.3-8.2) g/dL Albumin (3.5-5.0) g/dL Vitamin B12 (239-931) pg/mL Folic Acid (2.76 - >20) ng/mL Urine Color (Yellow) Urine Appearance (Clear) Urine pH (4.6-8.0) Ur Specific [place] (1.005-1.030) Urine Protein (Negative) Urine Glucose (UA) (Negative) mg/dL Urine Ketones (Negative) Urine Blood (Negative) Urine Nitrite (Negative) Urine Bilirubin (Negative) Urine Urobilinogen (0.2) mg/dL Ur Leukocyte Esterase (Negative) U Hyaline Cast (Auto) (0-2) /LPF Urine Microscopic RBC (0-5) /HPF Urine Microscopic WBC (0-5) /HPF Ur Epithelial Cells (None Seen) /HPF Urine Bacteria (None Seen) /HPF Urine Culture Reflexed (NO) Crossmatch (COMPATIBLE) Radiology Exams: Radiology Procedures Category Date Time Status CHEST 1 VIEW (PORTABLE) Stat Exams 03/10/23 15:58 Completed CHEST WITH CONTRAST [CT] Urgent Exams 03/11/23 09:28 Completed VENOUS BILATERAL EXTREMITY [US] Routine Exams 03/11/23 11:19 Completed Multi-Disciplinary Progress Notes: Multi-Disciplinary Progress Notes 03/11/23 10:08 Physical Therapy Note by Nathan (L [id number])Julianne PT RECEIVED ORDER FOR WEAKNESS WITH DX OF COPD. PATIENT HGB LEVEL 6.4 AT THIS TIME AND GETTING BLOOD TRANSFUSION PER CASE MANAGEMENT. PT TO HOLD EVALUATION THIS DATE AND ATTEMPT EVALUATION TOMORROW PENDING PATIENT STATUS. Initialized on 03/11/23 10:08 - END OF NOTE 03/11/23 07:24 Pharmacy Note by Wenceslao Garnica Pharmacokinetic dosing service Date: 03/11/2022 Time: 729 Objective: Patient: REILLY BENITES Floor: 106 Age: 67 yo Serum creatinine: 0.76 mg/dL Height: 60 Inches Weight (kg): 72 Diagnosis: Pneumonia / copd Relevant medical/social history: Cultures and sensitivities: Pending Other labs: wbc = 16.6 Assessment: IBW (kg): 45.50 Dosing wt(kg): 72 Estimated Creatinine clearance (ml/min): 53.0 CRCL method: Cockcroft and Gault using ibw(default). Drug selected: Vancomycin Loading dose (mg): 0 Vd (liters): 50.4 (factor used: 0.7 L/kg) Sarmad (hr-1): 0.048 Half life (hrs): 14.44 Recommended dose: 1000 mg Interval: 18 hrs Infusion time (hrs): 1.5 Predicted peak (mcg/mL): 33.1 Predicted trough (mcg/mL): 14.99 Total body weight is being used for vancomycin dosing. Renal function is stable [ xx] /unstable [ ] Recommendations: Give Vancomycin 1000 mg q 18 hrs with an expected Cpeak of 33.1 mcg/ml and an expected Ctrough of 14.99 mcg/ml Renal dosing of other antibiotics (review renal dosing of other medications and list guidelines here): none Thank you for the consult, will continue to follow. Signature: tirso garnica Initialized on 03/11/23 07:24 - END OF NOTE <MADHURI ARNDT - Last Filed: 03/11/23 21:11> Assessment/Plan (1) Sepsis Current Visit: Yes Status: Acute Assessment & Plan: (1) Sepsis Current Visit: Yes Status: Acute Assessment & Plan: -2/2 to pneumonia -CXR demonstrating infiltrates to Left lower lobe -On 3L baseline oxygen, now at 4L, supplemental oxygen for goal >92% -Blood cultures pending -Contraindication for fluid bolus/ CHF -will provide gentle hydration -PCT,LA, CBC, CMP, mg -Strict I&O -Tele -LA elevated at 2.1, will repeat until normal -Vanc and azithromycin started in ED, will continue vanc/cefepime -PT/OT eval -DVT prophylaxis- lovenox 40mg subq daily 03/11/23: -No longer meeting criteria, consider de-escalation of abx tomorrow if she continues to improve -WBC trending down 16.6<28.8 -Lactic now normal -Blood culture pending (2) COPD exacerbation Current Visit: Yes Status: Acute Assessment & Plan: -CXR with left lower/mid lung infiltrate, vanc/cefepime initiated - Duonebs Q4 - Albuterol Q2 PRN - Solumedrol 40mg TID - Mucinex - Incentive Spirometry - Flutter therapy -Smoking Cessation discussion, patient ready to quit, will add nicotine patch +/- Flu shot/Prevnar/ Pneumovax shot 03/11/23: -CTA of chest -Pulm consulted with recs for CTA/doppler, continue IV abx, steroids, bronchodilators, DVT prophylaxis Code(s): J44.1 - CHRONIC OBSTRUCTIVE PULMONARY DISEASE W (ACUTE) EXACERBATION (3) Iron deficiency anemia Current Visit: Yes Status: Acute Assessment & Plan: -Chronic -Monitor H&H Q6H, transfuse if hgb <7 03/11/23: -will add iron studies, b12/fol, ferr -Hgb at 6.4 today will transfuse - Code(s): D50.9 - IRON DEFICIENCY ANEMIA, UNSPECIFIED (4) Pneumonia Current Visit: Yes Status: Acute Qualifiers: Assessment & Plan: -CXR with Left mid/lower lung infiltrate -Vanc/cefepime -Supplemental oxygen with goal >92% -Solumedrol 40mg TID -Mucinex -Consider CT if no improvement 03/11/23: -At baseline oxygen -Ddimer elevated will order CTA Code(s): J18.9 - PNEUMONIA, UNSPECIFIED ORGANISM (5) Acute respiratory failure Current Visit: No Status: Acute Qualifiers: Respiratory failure complication: hypoxia and hypercapnia Assessment & Plan: 2/2 to COPD exac/ pneumonia -see copd/pneumonia Code(s): J96.00 - ACUTE RESPIRATORY FAILURE, UNSP W HYPOXIA OR HYPERCAPNIA (6) Hypothyroidism Current Visit: No Status: Acute Assessment & Plan: -continue home med levothyroxine Code(s): E03.9 - HYPOTHYROIDISM, UNSPECIFIED (7) CHF (congestive heart failure) Current Visit: Yes Status: Acute Assessment & Plan: -BNP at 494 Code(s): I50.9 - HEART FAILURE, UNSPECIFIED (8) Smoker Current Visit: Yes Status: Acute Assessment & Plan: -Smoking cessation discussed -nicotine patch (2) COPD exacerbation Current Visit: Yes Status: Acute Code(s): J44.1 - CHRONIC OBSTRUCTIVE PULMONARY DISEASE W (ACUTE) EXACERBATION (3) Iron deficiency anemia Current Visit: Yes Status: Acute Code(s): D50.9 - IRON DEFICIENCY ANEMIA, UNSPECIFIED (4) Pneumonia Current Visit: Yes Status: Acute Code(s): J18.9 - PNEUMONIA, UNSPECIFIED ORGANISM (5) Acute respiratory failure Current Visit: No Status: Acute Qualifiers: Respiratory failure complication: hypoxia and hypercapnia Qualified Code(s): J96.01 - Acute respiratory failure with hypoxia; J96.02 - Acute respiratory failure with hypercapnia Code(s): J96.00 - ACUTE RESPIRATORY FAILURE, UNSP W HYPOXIA OR HYPERCAPNIA (6) Hypothyroidism Current Visit: No Status: Acute Code(s): E03.9 - HYPOTHYROIDISM, UNSPECIFIED (7) CHF (congestive heart failure) Current Visit: Yes Status: Acute Code(s): I50.9 - HEART FAILURE, UNSPECIFIED (8) Smoker Current Visit: Yes Status: Acute Code(s): F17.200 - NICOTINE DEPENDENCE, UNSPECIFIED, UNCOMPLICATED <ORSA GONZÁLES - Last Filed: 03/11/23 11:10> JAIMIE Encounter - JAIMIE Encounter Attestation JAIMIE Encounter Attestation: "REILLY Redmond andhavediscussed pertinent aspects of their care with Rosa Rodriguez agree with the history, physical exam (any modifications based on my personal exam will be noted below), assessment, and plan as outlined in original note. Please see immediately below for my summary of findings and additional assessment and plan along with any m eaningful corrections/explanations to the Subjective/Objective portions of the JAIMIE note will be noted." My portion of the encounter took place via telemedicine. -Patient feels a little better today. She was smoking up until admission, about 2 PPD. Nasal MRSA positive and high risk for gram negative pneumonia as well given COPD. Continue IV vanc and cefepime, steroids and nebs. <MADHURI ARNDT - Last Filed: 03/11/23 21:11>
[2023-03-11 05:21] LABS: Hemoglobin 6.4 g/dL (12.0-16.0)
[2023-03-11 05:34] LABS: ALBUMIN 3.1 g/dL (3.5-5.0); ANION GAP 6.5 MEQ/L (5-15); BILIRUBIN,TOTAL 0.3 mg/dL (0.2-1.3); Calcium 8.6 mg/dL (8.4-10.2); Creatinine 1 0.76 mg/dL (0.52-1.04); EST GLOMERULAR FILTRATION RATE 86.9 ML/MIN; Potassium 4.1 mmol/L (3.5-5.1); Total Protein 6.3 g/dL (6.3-8.2)
[2023-03-11] MEDS ORDERED: solu-MEDROL ONE (05:56)
[2023-03-11] MEDS ORDERED: Sterile H2O 10 ml IJ ONE (05:56)
[2023-03-11] MEDS: solu-MEDROL 40 MG, Sterile H2O 10 ml 1 ML IV SCH ×6 (06:02→21:12)
[2023-03-11 06:54] LABS: CROSS MATCH (PRBC) COMPATIBLE (COMPATIBLE)
[2023-03-11] MEDS ORDERED: Advair Hfa 115/21 Common canister IH SCH (07:00)
[2023-03-11] MEDS ORDERED: Maxipime 2 GM IV SCH (07:45)
[2023-03-11] MEDS: Maxipime 2 GM** 2 G in Dextrose 5%/Water IV Soln. 100ML PLUS BAG 100 ML IV SCH ×3 (08:11→21:12)
--- NOTE | 2023-03-11 09:18 | CONS ---
CONSULT DATE: 03/10/2023 HISTORY: Jacklyn Reed is a 67-year-old woman known to me with history of chronic obstructive pulmonary disease who has been sick for the past two days. The patient presented to [facility] Emergency Room where laboratory work up showed a significantly elevated white count. In addition, her chest x-ray has revealed a left lower lobe infiltrate. The patient is being admitted to the medical floor. She appears somewhat drowsy but arousable. According to family who are present at bedside, the patient has been sick for about two days with cough and shortness of breath. The patient has been on home oxygen therapy at 2 liters. In addition, she also has chronic obstructive pulmonary disease and uses supplemental bronchodilator therapy. The patient's laboratory work up did show a mildly positive D-dimer. She has been initiated with Zithromax and IV vancomycin. At the time of my evaluation, she is arousable, nods yes or no and does report feeling somewhat better. PAST MEDICAL HISTORY: Positive for chronic obstructive pulmonary disease, hypoxemia, PAST SURGICAL HISTORY: No recent surgery. PERSONAL AND SOCIAL HISTORY: The patient is a smoker. MEDICATIONS: Medications reviewed. ALLERGIES: MORPHINE (FAINTING). OXYCODONE (SHORTNESS OF BREATH). PENICILLIN. OXYMORPHONE (FAINTING). BUPROPION (HIVES). COCONUT (HEADACHE). PHYSICAL EXAMINATION: This is a middle-aged woman who appears comfortable, resting. Vital signs noted. HEENT: Normocephalic. CVS: First and second heart sounds are normal, regular, rhythmic. RESPIRATORY: Shows diminished breath sounds, crackles are heard at lung bases. ABDOMEN: Soft. EXTREMITIES: No edema is noted. LABORATORY DATA AND TESTS: X-rays were reviewed. ASSESSMENT: This is a 67-year-old woman admitted with: 1) Left lower lobe community acquired pneumonia. 2) Chronic obstructive pulmonary disease with mild exacerbation. 3) Chronic hypoxemia. 4) Weakly positive D-dimer likely from underlying infection. RECOMMENDATIONS: 1) I agree with the present treatment. 2) Continue broad spectrum antibiotics. I am not sure if the patient really needs vancomycin given she is from community. Will add Rocephin and await cultures to be back. 3) Continue IV steroids, continue bronchodilators, deep vein thrombosis prophylaxis. May benefit from venous Doppler in the a.m. and CT-A as well. Further recommendations pending clinical improvement. Discussed this plan of care with nursing staff as well as family present at bedside.
[2023-03-11] MEDS ORDERED: NON-FORMULARY ITEM (Sertraline Hcl 100 Mg [Zoloft 100 Mg] 100 MG Tab) PO SCH (10:00)
[2023-03-11] MEDS ORDERED: NON-FORMULARY ITEM (Theophylline Anhydrous [Theophylline Er] 300 MG Tab.Er.12h) PO SCH (10:00)
[2023-03-11] MEDS ORDERED: NON-FORMULARY ITEM (Omeprazole [Omeprazole] 40 MG Capsule.Dr) PO SCH (10:00)
[2023-03-11] MEDS: ZOLOFT 50 MG TABLET PO SCH (10:39)
[2023-03-11] MEDS: Mucinex 600MG ER Tabs PO SCH ×2 (10:39→21:12)
[2023-03-11] MEDS: SYNTHROID 25 MCG PO SCH (10:39)
[2023-03-11] MEDS: ENOXAPARIN SODIUM SQ SCH (10:39)
[2023-03-11] MEDS: Imdur 30 MG PO SCH (10:39)
[2023-03-11] MEDS: THEOPHYLLINE ER 24HR PO SCH (10:40)
[2023-03-11] MEDS: KLONOPIN PO SCH ×2 (10:43→21:12)
[2023-03-11 11:16] LABS: Appearance Clear (Clear); Bacteria Few /HPF (None Seen); Bilirubin Negative (Negative); Blood Negative (Negative); Epithelial Cells Moderate /HPF (None Seen); Glucose, Urine 500 mg/dL (Negative); Hyaline Casts NONE SEEN /LPF (0-2); Ketones Negative (Negative); Leukocyte Esterase Negative (Negative); Nitrite Negative (Negative); Ph 5.5 (4.6-8.0); Protein,Urine Dip Trace (Negative); RBC 0-2 /HPF (0-5); Specific Gravity >=1.030 (1.005-1.030); Urobilinogen 0.2 mg/dL (0.2)
[2023-03-11 11:24] LABS: ADD URINE CULTURE? NO (NO)
--- NOTE | 2023-03-11 14:21 | XRAY ---
Indication: Elevated d-dimer. Two-dimensional sonogram and color Doppler imaging major venous vessels of the left and right leg performed. Comparison: None No thrombus seen in the examined deep venous vessels of the left and right leg including greater saphenous vein. Veins demonstrate normal compressibility. Venous waveforms are normal with and without augmentation. Impression: Left and right legs negative for DVT.
[2023-03-11] MEDS: NYSTOP POWDER 15 GM TOP SCH ×3 (14:31→21:13)
[2023-03-11 14:48] LABS: Ferritin 52.6 ng/mL (11.1-264); Folate (Folic Acid) 8.8 ng/mL (2.76 - >20)
--- NOTE | 2023-03-11 15:48 | XRAY ---
Indication: Short of breath. Pneumonia on recent chest radiograph. Pulmonary embolus. Multiple contiguous axial images obtained through the chest using 80 cc Isovue 370 contrast and PE protocol. Comparison: April 08, 2020 Good opacification of the pulmonary arteries to include the lobar and segmental branches. Heart not enlarged. Aorta is normal in course and caliber. Small precarinal calcified nodes. No pathologic mediastinal/hilar lymphadenopathy. Moderate-sized hiatal hernia with partial intrathoracic stomach. Lungs demonstrates new patchy consolidating airspace disease lingula and left lower lobe. New small focus patchy airspace disease posterior medial right lower lobe. No effusion. Remaining lungs again demonstrates diffuse pulmonary emphysema. Bony thorax intact. Limited upper abdomen including adrenal glands are unremarkable. Impression: 1. Continued negative pulmonary embolus. 2. Lingula and left lower lobe consolidating airspace disease corresponding to recent chest radiograph findings. Minimal patchy airspace disease right lower lobe. 3. Again chronic findings including pulmonary emphysema and hiatal hernia with partial intrathoracic stomach.
[2023-03-11 16:29] LABS: Hematocrit 31.4 % (35-47)
[2023-03-11] MEDS: TYLENOL 325 MG PO PRN (16:29)
[2023-03-11] MEDS ORDERED: DUONEB 0.5-3 MG/3 ml Neb IH PRN (18:02)
[2023-03-11] MEDS: Nicoderm CQ 21 MG TOP SCH (18:16)
[2023-03-11] MEDS: FLUTICASONE-SALMETEROL 250-50 IH SCH (18:41)
[2023-03-11] MEDS ORDERED: PROTONIX 40 MG IV IV SCH (22:00)
[2023-03-11] MEDS ORDERED: ROCEPHIN 1 Gm-D5w 50 ml Bag** 1 G/50 ML IVPB IV SCH (22:00)
[2023-03-11] MEDS ORDERED: Neurontin PO SCH (22:00)
[2023-03-12] MEDS ORDERED: VANCOMYCIN 1 GRAM/200 ML BAG 1 GM/200 ML PIGGYBACK IV SCH
[2023-03-12] MEDS: DUONEB 0.5-3 MG/3 ml Neb IH SCH ×3 (00:18→14:54)
[2023-03-12] MEDS: Sodium Chloride 0.9% 1000 ML 1,000 ML IV SCH ×2 (02:30→12:07)
[2023-03-12] MEDS: TYLENOL 325 MG PO PRN (03:17)
[2023-03-12 04:53] LABS: Absolute Neutrophil Ct (ANC) 14.45 x10^3/uL (1.4-6.9); BASOPHIL % 0.1 % (0.0-0.4); Basophil (Absolute #) 0.02 x10^3/uL (0-0.4); Eosinophil (Absolute #) 0 x10^3/uL (0-0.5); Hematocrit 30.3 % (35-47); Hemoglobin 8.6 g/dL (12.0-16.0); IMMATURE GRAN % 0.6 % (0.00-0.4); Lymphocyte (Absolute #) 0.48 x10^3/uL (1.0-4.6); Lymphocytes % 3.1 % (24.0-44.0); Mean Cell Volume 79.1 fL (78-100); Mean Corpuscular Hemoglobin 22.5 pg (26-32); Mean Corpuscular Hgb Concent. 28.4 g/dL (32-36); Mean Platelet Volume 10.7 fL (7.5-11.0); Monocyte (Absolute #) 0.46 x10^3/uL (0.0-1.3); Neutrophil % 93.2 % (36.0-66.0); Platelet Count 269 x10^3/uL (150-450); Red Blood Count 3.83 x10^6/uL (4.1-5.4); Red Cell Distribution Width 22.7 % (11.5-14.0); White Blood Count 15.5 x10^3/uL (4.0-10.5)
--- NOTE | 2023-03-12 05:30 | PCM.NOTE ---
Date and Time: 03/12/23 0529 Subjective Assessment: is a 67 year old female with a pmhx of COPD, CHF, CAD, HLD, hypothyroidism, GERD, anxiety, and depression presented to ED 03/10/23 via ambulance with complaints of shortness of breath, productive cough with green sputum, fever/chills for the past day. Patient states she wears 3l of oxygen at baseline. She also reports pain in her LUQ with deep inhalation which she rates 7/10 on numerical pain scale. Upon arrival patient was afebrile, tachpneic, tachycardic, with spo2 @ 97% on 4L. CXR demonstrates new left lower lung infiltrate. EKG RATE (93), Sinus Rhythm, NORMAL AXIS, prolonged QT interval, Non-specific ST Changes. Lab findings remarkable for WBC at 28.8, Hgb 7.3, lactic acid at 2.1, and sodium at 134. Respiratory viral panel negative. Vancomycin, azithromycin, and solumedrol given in ED. Vanc/cefepime/solumedrol continued. 03/11/23: Met with patient bedside. Dyspnea and cough improved. States sputum is now clear. Discussed lab findings with decreased WBC today of 16.6 (28.8), Hgb at 6.4. Will continue IV abx/steroid/inh for now. Blood cultures pending. CTA chest pending. OBJECTIVE DATA Vital Signs: Vital Signs - 24 hr Temp Pulse Resp BP Pulse Ox 03/12/23 04:00 98.1 F 75 18 156/69 99 03/12/23 00:18 85 20 96 03/12/23 00:00 98.0 F 79 20 150/81 99 03/11/23 19:01 83 22 96 03/11/23 18:40 98.4 F 78 20 153/69 99 03/11/23 16:00 98.0 F 82 18 154/84 97 03/11/23 14:55 85 20 95 03/11/23 11:42 97.7 F 87 18 140/67 98 03/11/23 11:18 82 18 95 03/11/23 07:25 97.1 F 79 18 131/70 100 03/11/23 06:59 96 03/11/23 06:58 80 18 96 Pain Assessment - Last Documented Pain Intensity 0 Pain Scale Used 0-10 Pain Scale Intake and Output: Intake & Output 03/09/23 03/10/23 03/11/23 03/12/23 11:59 11:59 11:59 11:59 Intake Total 340 3216 Balance 340 3216 Weight 72.3 kg Lab Results: Lab Results-Last 24 Hours 03/10/23 03/10/23 03/10/23 Range/Units 17:19 17:19 18:17 WBC (4.0-10.5) x10^3/uL RBC (4.1-5.4) x10^6/uL Hgb (12.0-16.0) g/dL Hct (35-47) % MCV (78-100) fL MCH (26-32) pg MCHC (32-36) g/dL RDW (11.5-14.0) % Plt Count (150-450) x10^3/uL MPV (7.5-11.0) fL Gran % (36.0-66.0) % Immature Gran % (Auto) (0.00-0.4) % Nucleat RBC Rel Count (0.00-0.1) % Eos # (Auto) (0-0.5) x10^3/uL Immature Gran # (Auto) (0.00-0.03) x10^3u/L Absolute Lymphs (auto) (1.0-4.6) x10^3/uL Absolute Monos (auto) (0.0-1.3) x10^3/uL Absolute Nucleated RBC (0.00-0.01) x10^3u/L Lymphocytes % (24.0-44.0) % Monocytes % (0.0-12.0) % Eosinophils % (0.00-5.0) % Basophils % (0.0-0.4) % Absolute Granulocytes (1.4-6.9) x10^3/uL Basophils # (0-0.4) x10^3/uL Sodium (137-145) mmol/L Potassium (3.5-5.1) mmol/L Chloride (98-107) mmol/L Carbon Dioxide (22-30) mmol/L Anion Gap (5-15) MEQ/L BUN (7-17) mg/dL Creatinine (0.52-1.04) mg/dL Estimated GFR ML/MIN Glucose (74-106) mg/dL POC Glucometer (74 to 106) mg/dL Calcium (8.4-10.2) mg/dL Iron (37-170) ug/dL Ferritin (11.1-264) ng/mL Total Bilirubin (0.2-1.3) mg/dL AST (14-36) U/L ALT (0-35) U/L Alkaline Phosphatase (38-126) U/L Serum Total Protein (6.3-8.2) g/dL Albumin (3.5-5.0) g/dL Vitamin B12 (239-931) pg/mL Folic Acid (2.76 - >20) ng/mL Urine Color Yellow (Yellow) Urine Appearance Clear (Clear) Urine pH 5.5 (4.6-8.0) Ur Specific [place] >=1.030 A (1.005-1.030) Urine Protein Trace A (Negative) Urine Glucose (UA) 500 A (Negative) mg/dL Urine Ketones Negative (Negative) Urine Blood Negative (Negative) Urine Nitrite Negative (Negative) Urine Bilirubin Negative (Negative) Urine Urobilinogen 0.2 (0.2) mg/dL Ur Leukocyte Esterase Negative (Negative) U Hyaline Cast (Auto) NONE SEEN (0-2) /LPF Urine Microscopic RBC 0-2 (0-5) /HPF Urine Microscopic WBC 6-10 A (0-5) /HPF Ur Epithelial Cells Moderate A (None Seen) /HPF Urine Bacteria Few A (None Seen) /HPF Urine Culture Reflexed NO (NO) Crossmatch COMPATIBLE COMPATIBLE (COMPATIBLE) 03/11/23 03/11/23 03/11/23 Range/Units 05:05 05:20 05:20 WBC (4.0-10.5) x10^3/uL RBC (4.1-5.4) x10^6/uL Hgb (12.0-16.0) g/dL Hct (35-47) % MCV (78-100) fL MCH (26-32) pg MCHC (32-36) g/dL RDW (11.5-14.0) % Plt Count (150-450) x10^3/uL MPV (7.5-11.0) fL Gran % (36.0-66.0) % Immature Gran % (Auto) (0.00-0.4) % Nucleat RBC Rel Count (0.00-0.1) % Eos # (Auto) (0-0.5) x10^3/uL Immature Gran # (Auto) (0.00-0.03) x10^3u/L Absolute Lymphs (auto) (1.0-4.6) x10^3/uL Absolute Monos (auto) (0.0-1.3) x10^3/uL Absolute Nucleated RBC (0.00-0.01) x10^3u/L Lymphocytes % (24.0-44.0) % Monocytes % (0.0-12.0) % Eosinophils % (0.00-5.0) % Basophils % (0.0-0.4) % Absolute Granulocytes (1.4-6.9) x10^3/uL Basophils # (0-0.4) x10^3/uL Sodium 136 L (137-145) mmol/L Potassium 4.1 (3.5-5.1) mmol/L Chloride 104 (98-107) mmol/L Carbon Dioxide 30 (22-30) mmol/L Anion Gap 6.5 (5-15) MEQ/L BUN 16 (7-17) mg/dL Creatinine 0.76 (0.52-1.04) mg/dL Estimated GFR 86.9 ML/MIN Glucose 145 H (74-106) mg/dL POC Glucometer (74 to 106) mg/dL Calcium 8.6 (8.4-10.2) mg/dL Iron 17 L (37-170) ug/dL Ferritin 52.6 (11.1-264) ng/mL Total Bilirubin 0.30 (0.2-1.3) mg/dL AST 22 (14-36) U/L ALT 15 (0-35) U/L Alkaline Phosphatase 61 (38-126) U/L Serum Total Protein 6.3 (6.3-8.2) g/dL Albumin 3.1 L (3.5-5.0) g/dL Vitamin B12 260 (239-931) pg/mL Folic Acid 8.80 (2.76 - >20) ng/mL Urine Color (Yellow) Urine Appearance (Clear) Urine pH (4.6-8.0) Ur Specific [place] (1.005-1.030) Urine Protein (Negative) Urine Glucose (UA) (Negative) mg/dL Urine Ketones (Negative) Urine Blood (Negative) Urine Nitrite (Negative) Urine Bilirubin (Negative) Urine Urobilinogen (0.2) mg/dL Ur Leukocyte Esterase (Negative) U Hyaline Cast (Auto) (0-2) /LPF Urine Microscopic RBC (0-5) /HPF Urine Microscopic WBC (0-5) /HPF Ur Epithelial Cells (None Seen) /HPF Urine Bacteria (None Seen) /HPF Urine Culture Reflexed (NO) Crossmatch (COMPATIBLE) 03/11/23 03/11/23 03/11/23 Range/Units 07:11 11:35 16:24 WBC (4.0-10.5) x10^3/uL RBC (4.1-5.4) x10^6/uL Hgb 9.0 L D (12.0-16.0) g/dL Hct 31.4 L (35-47) % MCV (78-100) fL MCH (26-32) pg MCHC (32-36) g/dL RDW (11.5-14.0) % Plt Count (150-450) x10^3/uL MPV (7.5-11.0) fL Gran % (36.0-66.0) % Immature Gran % (Auto) (0.00-0.4) % Nucleat RBC Rel Count (0.00-0.1) % Eos # (Auto) (0-0.5) x10^3/uL Immature Gran # (Auto) (0.00-0.03) x10^3u/L Absolute Lymphs (auto) (1.0-4.6) x10^3/uL Absolute Monos (auto) (0.0-1.3) x10^3/uL Absolute Nucleated RBC (0.00-0.01) x10^3u/L Lymphocytes % (24.0-44.0) % Monocytes % (0.0-12.0) % Eosinophils % (0.00-5.0) % Basophils % (0.0-0.4) % Absolute Granulocytes (1.4-6.9) x10^3/uL Basophils # (0-0.4) x10^3/uL Sodium (137-145) mmol/L Potassium (3.5-5.1) mmol/L Chloride (98-107) mmol/L Carbon Dioxide (22-30) mmol/L Anion Gap (5-15) MEQ/L BUN (7-17) mg/dL Creatinine (0.52-1.04) mg/dL Estimated GFR ML/MIN Glucose (74-106) mg/dL POC Glucometer 136 H 286 H (74 to 106) mg/dL Calcium (8.4-10.2) mg/dL Iron (37-170) ug/dL Ferritin (11.1-264) ng/mL Total Bilirubin (0.2-1.3) mg/dL AST (14-36) U/L ALT (0-35) U/L Alkaline Phosphatase (38-126) U/L Serum Total Protein (6.3-8.2) g/dL Albumin (3.5-5.0) g/dL Vitamin B12 (239-931) pg/mL Folic Acid (2.76 - >20) ng/mL Urine Color (Yellow) Urine Appearance (Clear) Urine pH (4.6-8.0) Ur Specific [place] (1.005-1.030) Urine Protein (Negative) Urine Glucose (UA) (Negative) mg/dL Urine Ketones (Negative) Urine Blood (Negative) Urine Nitrite (Negative) Urine Bilirubin (Negative) Urine Urobilinogen (0.2) mg/dL Ur Leukocyte Esterase (Negative) U Hyaline Cast (Auto) (0-2) /LPF Urine Microscopic RBC (0-5) /HPF Urine Microscopic WBC (0-5) /HPF Ur Epithelial Cells (None Seen) /HPF Urine Bacteria (None Seen) /HPF Urine Culture Reflexed (NO) Crossmatch (COMPATIBLE) 03/12/23 Range/Units 04:25 WBC 15.5 H (4.0-10.5) x10^3/uL RBC 3.83 L (4.1-5.4) x10^6/uL Hgb 8.6 L (12.0-16.0) g/dL Hct 30.3 L (35-47) % MCV 79.1 (78-100) fL MCH 22.5 L (26-32) pg MCHC 28.4 L (32-36) g/dL RDW 22.7 H (11.5-14.0) % Plt Count 269 (150-450) x10^3/uL MPV 10.7 (7.5-11.0) fL Gran % 93.2 H (36.0-66.0) % Immature Gran % (Auto) 0.6 H (0.00-0.4) % Nucleat RBC Rel Count 0.0 (0.00-0.1) % Eos # (Auto) 0 (0-0.5) x10^3/uL Immature Gran # (Auto) 0.10 H (0.00-0.03) x10^3u/L Absolute Lymphs (auto) 0.48 L (1.0-4.6) x10^3/uL Absolute Monos (auto) 0.46 (0.0-1.3) x10^3/uL Absolute Nucleated RBC 0.00 (0.00-0.01) x10^3u/L Lymphocytes % 3.1 L (24.0-44.0) % Monocytes % 3.0 (0.0-12.0) % Eosinophils % 0.0 (0.00-5.0) % Basophils % 0.1 (0.0-0.4) % Absolute Granulocytes 14.45 H (1.4-6.9) x10^3/uL Basophils # 0.02 (0-0.4) x10^3/uL Sodium (137-145) mmol/L Potassium (3.5-5.1) mmol/L Chloride (98-107) mmol/L Carbon Dioxide (22-30) mmol/L Anion Gap (5-15) MEQ/L BUN (7-17) mg/dL Creatinine (0.52-1.04) mg/dL Estimated GFR ML/MIN Glucose (74-106) mg/dL POC Glucometer (74 to 106) mg/dL Calcium (8.4-10.2) mg/dL Iron (37-170) ug/dL Ferritin (11.1-264) ng/mL Total Bilirubin (0.2-1.3) mg/dL AST (14-36) U/L ALT (0-35) U/L Alkaline Phosphatase (38-126) U/L Serum Total Protein (6.3-8.2) g/dL Albumin (3.5-5.0) g/dL Vitamin B12 (239-931) pg/mL Folic Acid (2.76 - >20) ng/mL Urine Color (Yellow) Urine Appearance (Clear) Urine pH (4.6-8.0) Ur Specific [place] (1.005-1.030) Urine Protein (Negative) Urine Glucose (UA) (Negative) mg/dL Urine Ketones (Negative) Urine Blood (Negative) Urine Nitrite (Negative) Urine Bilirubin (Negative) Urine Urobilinogen (0.2) mg/dL Ur Leukocyte Esterase (Negative) U Hyaline Cast (Auto) (0-2) /LPF Urine Microscopic RBC (0-5) /HPF Urine Microscopic WBC (0-5) /HPF Ur Epithelial Cells (None Seen) /HPF Urine Bacteria (None Seen) /HPF Urine Culture Reflexed (NO) Crossmatch (COMPATIBLE) Radiology Exams: Radiology Procedures Category Date Time Status CHEST 1 VIEW (PORTABLE) Stat Exams 03/10/23 15:58 Completed CHEST WITH CONTRAST [CT] Urgent Exams 03/11/23 09:28 Completed VENOUS BILATERAL EXTREMITY [US] Routine Exams 03/11/23 11:19 Completed Multi-Disciplinary Progress Notes: Multi-Disciplinary Progress Notes 03/11/23 10:08 Physical Therapy Note by Nathan (L [id number])Julianne PT RECEIVED ORDER FOR WEAKNESS WITH DX OF COPD. PATIENT HGB LEVEL 6.4 AT THIS TIME AND GETTING BLOOD TRANSFUSION PER CASE MANAGEMENT. PT TO HOLD EVALUATION THIS DATE AND ATTEMPT EVALUATION TOMORROW PENDING PATIENT STATUS. Initialized on 03/11/23 10:08 - END OF NOTE 03/11/23 07:24 Pharmacy Note by Wenceslao Garnica Pharmacokinetic dosing service Date: 03/11/2022 Time: 729 Objective: Patient: REILLY BENITES Floor: 106 Age: 67 yo Serum creatinine: 0.76 mg/dL Height: 60 Inches Weight (kg): 72 Diagnosis: Pneumonia / copd Relevant medical/social history: Cultures and sensitivities: Pending Other labs: wbc = 16.6 Assessment: IBW (kg): 45.50 Dosing wt(kg): 72 Estimated Creatinine clearance (ml/min): 53.0 CRCL method: Cockcroft and Gault using ibw(default). Drug selected: Vancomycin Loading dose (mg): 0 Vd (liters): 50.4 (factor used: 0.7 L/kg) Sarmad (hr-1): 0.048 Half life (hrs): 14.44 Recommended dose: 1000 mg Interval: 18 hrs Infusion time (hrs): 1.5 Predicted peak (mcg/mL): 33.1 Predicted trough (mcg/mL): 14.99 Total body weight is being used for vancomycin dosing. Renal function is stable [ xx] /unstable [ ] Recommendations: Give Vancomycin 1000 mg q 18 hrs with an expected Cpeak of 33.1 mcg/ml and an expected Ctrough of 14.99 mcg/ml Renal dosing of other antibiotics (review renal dosing of other medications and list guidelines here): none Thank you for the consult, will continue to follow. Signature: tirso garnica Initialized on 03/11/23 07:24 - END OF NOTE Assessment/Plan (1) Sepsis Current Visit: Yes Status: Acute Assessment & Plan: -2/2 to pneumonia -CXR demonstrating infiltrates to Left lower lobe -On 3L baseline oxygen, now at 4L, supplemental oxygen for goal >92% -Blood cultures pending -Contraindication for fluid bolus/ CHF -will provide gentle hydration -PCT,LA, CBC, CMP, mg -Strict I&O -Tele -LA elevated at 2.1, will repeat until normal -Vanc and azithromycin started in ED, will continue vanc/cefepime -PT/OT eval -DVT prophylaxis- lovenox 40mg subq daily 03/11/23: -No longer meeting criteria, consider de-escalation of abx tomorrow if she continues to improve -WBC trending down 16.6<28.8 -Lactic now normal -Blood culture pending (2) COPD exacerbation Current Visit: Yes Status: Acute Assessment & Plan: -CXR with left lower/mid lung infiltrate, vanc/cefepime initiated - Duonebs Q4 - Albuterol Q2 PRN - Solumedrol 40mg TID - Mucinex - Incentive Spirometry - Flutter therapy -Smoking Cessation discussion, patient ready to quit, will add nicotine patch +/- Flu shot/Prevnar/ Pneumovax shot 03/11/23: -CTA of chest -Pulm consulted with recs for CTA/doppler, continue IV abx, steroids, bronchodilators, DVT prophylaxis Code(s): J44.1 - CHRONIC OBSTRUCTIVE PULMONARY DISEASE W (ACUTE) EXACERBATION (3) Iron deficiency anemia Current Visit: Yes Status: Acute Assessment & Plan: -Chronic -Monitor H&H Q6H, transfuse if hgb <7 03/11/23: -will add iron studies, b12/fol, ferr -Hgb at 6.4 today will transfuse - Code(s): D50.9 - IRON DEFICIENCY ANEMIA, UNSPECIFIED (4) Pneumonia Current Visit: Yes Status: Acute Qualifiers: Assessment & Plan: -CXR with Left mid/lower lung infiltrate -Vanc/cefepime -Supplemental oxygen with goal >92% -Solumedrol 40mg TID -Mucinex -Consider CT if no improvement 03/11/23: -At baseline oxygen -Ddimer elevated will order CTA Code(s): J18.9 - PNEUMONIA, UNSPECIFIED ORGANISM (5) Acute respiratory failure Current Visit: No Status: Acute Qualifiers: Respiratory failure complication: hypoxia and hypercapnia Assessment & Plan: 2/2 to COPD exac/ pneumonia -see copd/pneumonia Code(s): J96.00 - ACUTE RESPIRATORY FAILURE, UNSP W HYPOXIA OR HYPERCAPNIA (6) Hypothyroidism Current Visit: No Status: Acute Assessment & Plan: -continue home med levothyroxine Code(s): E03.9 - HYPOTHYROIDISM, UNSPECIFIED (7) CHF (congestive heart failure) Current Visit: Yes Status: Acute Assessment & Plan: -BNP at 494 Code(s): I50.9 - HEART FAILURE, UNSPECIFIED (8) Smoker Current Visit: Yes Status: Acute Assessment & Plan: -Smoking cessation discussed -nicotine patch (2) COPD exacerbation Current Visit: Yes Status: Acute Code(s): J44.1 - CHRONIC OBSTRUCTIVE PULMONARY DISEASE W (ACUTE) EXACERBATION (3) Iron deficiency anemia Current Visit: Yes Status: Acute Code(s): D50.9 - IRON DEFICIENCY ANEMIA, UNSPECIFIED (4) Pneumonia Current Visit: Yes Status: Acute Qualifiers: Code(s): J18.9 - PNEUMONIA, UNSPECIFIED ORGANISM (5) Acute respiratory failure Current Visit: No Status: Acute Qualifiers: Respiratory failure complication: hypoxia and hypercapnia Qualified Code(s): J96.01 - Acute respiratory failure with hypoxia; J96.02 - Acute respiratory failure with hypercapnia Code(s): J96.00 - ACUTE RESPIRATORY FAILURE, UNSP W HYPOXIA OR HYPERCAPNIA (6) Hypothyroidism Current Visit: No Status: Acute Code(s): E03.9 - HYPOTHYROIDISM, UNSPECIFIED (7) CHF (congestive heart failure) Current Visit: Yes Status: Acute Code(s): I50.9 - HEART FAILURE, UNSPECIFIED (8) Smoker Current Visit: Yes Status: Acute Code(s): F17.200 - NICOTINE DEPENDENCE, UNSPECIFIED, UNCOMPLICATED
[2023-03-12 05:34] LABS: ALBUMIN 3.2 g/dL (3.5-5.0); BILIRUBIN,TOTAL 0.5 mg/dL (0.2-1.3); Calcium 8.8 mg/dL (8.4-10.2); Creatinine 1 0.67 mg/dL (0.52-1.04); EST GLOMERULAR FILTRATION RATE 96.9 ML/MIN; Potassium 3.5 mmol/L (3.5-5.1); Total Protein 6.1 g/dL (6.3-8.2)
[2023-03-12] MEDS: solu-MEDROL 40 MG, Sterile H2O 10 ml 1 ML IV SCH ×2 (05:47)
[2023-03-12] MEDS: Maxipime 2 GM** 2 G in Dextrose 5%/Water IV Soln. 100ML PLUS BAG 100 ML IV SCH (05:47)
[2023-03-12 05:54] LABS: Slide Review 1 YES
[2023-03-12] MEDS: FLUTICASONE-SALMETEROL 250-50 IH SCH (06:44)
[2023-03-12 07:40] VITALS: RESP 16
[2023-03-12] MEDS ORDERED: NON-FORMULARY ITEM (Gabapentin [Gabapentin] 600 MG Tablet) PO SCH (08:00)
[2023-03-12] MEDS ORDERED: Zanaflex 4 MG PO SCH (10:00)
[2023-03-12] MEDS ORDERED: Neurontin PO SCH ×2 (10:00→22:00)
[2023-03-12 11:46] VITALS: TEMP 97.6
[2023-03-12 12:05] VITALS: BP 172/85; PULSE 76
[2023-03-12] MEDS: SYNTHROID 25 MCG PO SCH (12:07)
[2023-03-12] MEDS: ENOXAPARIN SODIUM SQ SCH (12:07)
[2023-03-12] MEDS: ZOLOFT 50 MG TABLET PO SCH (12:08)
[2023-03-12] MEDS: Imdur 30 MG PO SCH (12:08)
[2023-03-12] MEDS: Mucinex 600MG ER Tabs PO SCH (12:09)
[2023-03-12] MEDS: KLONOPIN PO SCH (12:09)
[2023-03-12] MEDS: NYSTOP POWDER 15 GM TOP SCH (12:14)
--- NOTE | 2023-03-12 12:18 | PCM.DS ---
Discharge Summary Date of Admission: 03/10/23 17:30 Date of Discharge: 03/12/23 Admitting Physician: MADHURI ARNDT MD Consults: Consults on Case 03/10/23 17:30 Consult Pulmonology ROUTINE Primary Care Provider: WEN CAMERON <ROSA GONZÁLES - Last Filed: 03/12/23 12:11> Date of Admission: 03/10/23 17:30 Admitting Physician: MADHURI ARNDT MD Consults: Consults on Case 03/10/23 17:30 Consult Pulmonology ROUTINE Primary Care Provider: WEN CAMERON <MADHURI ARNDT - Last Filed: 03/12/23 23:03> Allergies <ROSA GONZÁLES - Last Filed: 03/12/23 12:11> <MADHURI ARNDT - Last Filed: 03/12/23 23:03> Allergies morphine Allergy (Severe, Verified 03/10/23 15:47) Fainting oxycodone Allergy (Verified 03/10/23 15:47) Shortness of Breath Penicillins Allergy (Verified 03/10/23 15:47) oxymorphone Adverse Reaction (Severe, Verified 03/10/23 15:47) Fainting Coconut Adverse Reaction (Intermediate, Verified 03/10/23 15:47) Headache bupropion HCl [From Wellbutrin] Adverse Reaction (Mild, Verified 03/10/23 15:47) [facility] Summary - Hospital Course Hospital Course: is a 67 year old female with a pmhx of COPD, CHF, CAD, HLD, hypothyroidism, GERD, anxiety, and depression presented to ED 03/10/23 via ambulance with complaints of shortness of breath, productive cough with green s putum, fever/chills for the past day. Patient states she wears 3l of oxygen at baseline. She also reports pain in her LUQ with deep inhalation which she rates 7/10 on numerical pain scale. Upon arrival patient was afebrile, tachpneic, tachycardic, with spo2 @ 97% on 4L. CXR demonstrates new left lower lung infiltrate. Chest CT negative for PE, LLL consolidation. EKG RATE (93), Sinus Rhythm, NORMAL AXIS, prolonged QT interval, Non-specific ST Changes. Lab findings remarkable for WBC at 28.8, Hgb 7.3, lactic acid at 2.1, and sodium at 134. Respiratory viral panel negative. MRSA by nasal swab positive. Blood cultures NGTD. Patient admitted with copd exac/pneumonia. Vancomycin, azithromycin, and solumedrol given in ED. Vanc/cefepime/solumedrol continued during hospitalization with noted improvement. Patient now at baseline oxygen, dypnea/cough have improved. Patient is requesting discharge. Advised smoking cessation for which patient states she has already quit the day of admission and does not need any additional aid/help. Will discharge home on Levaquin/doxycycline as well as medrol dose pack with close follow up with PCP advised. Patient has verbalized understanding. All questions and concerns addressed. Discharge Note New Diagnosis: Pneumonia/COPD exacerbation New Medications: levaquin/doxycycline Follow Up: PCP/PULM Latest Assessment & Plan (1) Sepsis Current Visit: Yes Status: Acute Assessment & Plan: -2/2 to pneumonia -CXR demonstrating infiltrates to Left lower lobe -On 3L baseline oxygen, now at 4L, supplemental oxygen for goal >92% -Blood cultures pending -Contraindication for fluid bolus/ CHF -will provide gentle hydration -PCT,LA, CBC, CMP, mg -Strict I&O -Tele -LA elevated at 2.1, will repeat until normal -Vanc and azithromycin started in ED, will continue vanc/cefepime -PT/OT eval -DVT prophylaxis- lovenox 40mg subq daily 03/11/23: -No longer meeting criteria, consider de-escalation of abx tomorrow if she con tinues to improve -WBC trending down 16.6<28.8 -Lactic now normal -Blood culture pending (2) COPD exacerbation Current Visit: Yes Status: Acute Assessment & Plan: -CXR with left lower/mid lung infiltrate, vanc/cefepime initiated - Duonebs Q4 - Albuterol Q2 PRN - Solumedrol 40mg TID - Mucinex - Incentive Spirometry - Flutter therapy -Smoking Cessation discussion, patient ready to quit, will add nicotine patch +/- Flu shot/Prevnar/ Pneumovax shot 03/11/23: -CTA of chest -Pulm consulted with recs for CTA/doppler, continue IV abx, steroids, bronchodilators, DVT prophylaxis Code(s): J44.1 - CHRONIC OBSTRUCTIVE PULMONARY DISEASE W (ACUTE) EXACERBATION (3) Iron deficiency anemia Current Visit: Yes Status: Acute Assessment & Plan: -Chronic -Monitor H&H Q6H, transfuse if hgb <7 03/11/23: -will add iron studies, b12/fol, ferr -Hgb at 6.4 today will transfuse - Code(s): D50.9 - IRON DEFICIENCY ANEMIA, UNSPECIFIED (4) Pneumonia Current Visit: Yes Status: Acute Qualifiers: Assessment & Plan: -CXR with Left mid/lower lung infiltrate -Vanc/cefepime -Supplemental oxygen with goal >92% -Solumedrol 40mg TID -Mucinex -Consider CT if no improvement 03/11/23: -At baseline oxygen -Ddimer elevated will order CTA Code(s): J18.9 - PNEUMONIA, UNSPECIFIED ORGANISM (5) Acute respiratory failure Current Visit: No Status: Acute Qualifiers: Respiratory failure complication: hypoxia and hypercapnia Assessment & Plan: 2/2 to COPD exac/ pneumonia -see copd/pneumonia Code(s): J96.00 - ACUTE RESPIRATORY FAILURE, UNSP W HYPOXIA OR HYPERCAPNIA (6) Hypothyroidism Current Visit: No Status: Acute Assessment & Plan: -continue home med levothyroxine Code(s): E03.9 - HYPOTHYROIDISM, UNSPECIFIED (7) CHF (congestive heart failure) Current Visit: Yes Status: Acute Assessment & Plan: -BNP at 494 Code(s): I50.9 - HEART FAILURE, UNSPECIFIED (8) Smoker Current Visit: Yes Status: Acute Assessment & Plan: -Smoking cessation discussed -nicotine patch I spent 35 minutes [id number] with the patient on the day of discharge performing discharge exam, discussing hospital stay and discharge instructions with patient and caregivers, preparation of discharge records, prescriptions & referral forms and addressing any questions/concerns the patient had as documented above. - Vitals & Intake/Output Vital Signs: Vital Signs Temperature 97.6 F 03/12/23 11:45 Pulse Rate 76 03/12/23 12:04 Respiratory Rate 16 03/12/23 12:04 Blood Pressure 172/85 03/12/23 12:04 O2 Sat by Pulse Oximetry 99 03/12/23 12:04 Intake & Output: Intake & Output 03/10/23 03/11/23 03/12/23 03/13/23 11:59 11:59 11:59 11:59 Intake Total 340 3796 Balance 340 3796 Weight 72.3 kg - Lab Result Diagrams: 03/12/23 04:25 03/12/23 04:25 Lab Results-Last 24 Hrs: Lab Results-Last 24 Hours 03/11/23 03/11/23 03/11/23 Range/Units 05:20 05:20 16:24 WBC (4.0-10.5) x10^3/uL RBC (4.1-5.4) x10^6/uL Hgb 9.0 L D (12.0-16.0) g/dL Hct 31.4 L (35-47) % MCV (78-100) fL MCH (26-32) pg MCHC (32-36) g/dL RDW (11.5-14.0) % Plt Count (150-450) x10^3/uL MPV (7.5-11.0) fL Gran % (36.0-66.0) % Immature Gran % (Auto) (0.00-0.4) % Nucleat RBC Rel Count (0.00-0.1) % Eos # (Auto) (0-0.5) x10^3/uL Immature Gran # (Auto) (0.00-0.03) x10^3u/L Absolute Lymphs (auto) (1.0-4.6) x10^3/uL Absolute Monos (auto) (0.0-1.3) x10^3/uL Absolute Nucleated RBC (0.00-0.01) x10^3u/L Lymphocytes % (24.0-44.0) % Monocytes % (0.0-12.0) % Eosinophils % (0.00-5.0) % Basophils % (0.0-0.4) % Absolute Granulocytes (1.4-6.9) x10^3/uL Basophils # (0-0.4) x10^3/uL Sodium (137-145) mmol/L Potassium (3.5-5.1) mmol/L Chloride (98-107) mmol/L Carbon Dioxide (22-30) mmol/L Anion Gap (5-15) MEQ/L BUN (7-17) mg/dL Creatinine (0.52-1.04) mg/dL Estimated GFR ML/MIN Glucose (74-106) mg/dL Calcium (8.4-10.2) mg/dL Iron 17 L (37-170) ug/dL Ferritin 52.6 (11.1-264) ng/mL Total Bilirubin (0.2-1.3) mg/dL AST (14-36) U/L ALT (0-35) U/L Alkaline Phosphatase (38-126) U/L Serum Total Protein (6.3-8.2) g/dL Albumin (3.5-5.0) g/dL Vitamin B12 260 (239-931) pg/mL Folic Acid 8.80 (2.76 - >20) ng/mL Slides for Path Review 03/12/23 03/12/23 Range/Units 04:25 04:25 WBC 15.5 H (4.0-10.5) x10^3/uL RBC 3.83 L (4.1-5.4) x10^6/uL Hgb 8.6 L (12.0-16.0) g/dL Hct 30.3 L (35-47) % MCV 79.1 (78-100) fL MCH 22.5 L (26-32) pg MCHC 28.4 L (32-36) g/dL RDW 22.7 H (11.5-14.0) % Plt Count 269 (150-450) x10^3/uL MPV 10.7 (7.5-11.0) fL Gran % 93.2 H (36.0-66.0) % Immature Gran % (Auto) 0.6 H (0.00-0.4) % Nucleat RBC Rel Count 0.0 (0.00-0.1) % Eos # (Auto) 0 (0-0.5) x10^3/uL Immature Gran # (Auto) 0.10 H (0.00-0.03) x10^3u/L Absolute Lymphs (auto) 0.48 L (1.0-4.6) x10^3/uL Absolute Monos (auto) 0.46 (0.0-1.3) x10^3/uL Absolute Nucleated RBC 0.00 (0.00-0.01) x10^3u/L Lymphocytes % 3.1 L (24.0-44.0) % Monocytes % 3.0 (0.0-12.0) % Eosinophils % 0.0 (0.00-5.0) % Basophils % 0.1 (0.0-0.4) % Absolute Granulocytes 14.45 H (1.4-6.9) x10^3/uL Basophils # 0.02 (0-0.4) x10^3/uL Sodium 136 L (137-145) mmol/L Potassium 3.5 (3.5-5.1) mmol/L Chloride 105 (98-107) mmol/L Carbon Dioxide 26 (22-30) mmol/L Anion Gap 9.0 (5-15) MEQ/L BUN 15 (7-17) mg/dL Creatinine 0.67 (0.52-1.04) mg/dL Estimated GFR 96.9 ML/MIN Glucose 137 H (74-106) mg/dL Calcium 8.8 (8.4-10.2) mg/dL Iron (37-170) ug/dL Ferritin (11.1-264) ng/mL Total Bilirubin 0.50 (0.2-1.3) mg/dL AST 26 (14-36) U/L ALT 23 (0-35) U/L Alkaline Phosphatase 60 (38-126) U/L Serum Total Protein 6.1 L (6.3-8.2) g/dL Albumin 3.2 L (3.5-5.0) g/dL Vitamin B12 (239-931) pg/mL Folic Acid (2.76 - >20) ng/mL Slides for Path Review YES Micro Results-Entire Visit: Microbiology 03/10/23 16:10 Blood Culture - Preliminary Blood 03/10/23 16:00 Blood Culture - Preliminary Blood - Radiology Exams Ordered Rad Exams-Entire Visit: Radiology Procedures Category Date Time Status CHEST 1 VIEW (PORTABLE) Stat Exams 03/10/23 15:58 Completed CHEST WITH CONTRAST [CT] Urgent Exams 03/11/23 09:28 Completed VENOUS BILATERAL EXTREMITY [US] Routine Exams 03/11/23 11:19 Completed - Procedures and Test Procedures and Tests throughout Hospitalization: Therapy Orders & Screens 03/10/23 16:55 Respiratory Therapy Assessment DAILY Comment: 03/10/23 18:25 PT Eval & Treat (MD Order) ONCE Reason for Eval:: weakness Diagnosis: COPD Respiratory Therapy Consult ONCE Comment: Reason For Exam: Diagnosis: COPD OT Eval and Treat (MD Order) ONCE Comment: Physician Instructions: Reason For Exam: Diagnosis: COPD 03/10/23 18:28 FLUTTER [Flutter Therapy] UD Comment: Diagnosis: COPD Incentive Spirometry UD Comment: Diagnosis: COPD 03/10/23 19:02 Respiratory MDI BID Comment: Diagnosis: COPD 03/10/23 20:04 Oxygen Nasal Cannula 3 lpm Comment: Diagnosis: COPD <ROSA GONZÁLES - Last Filed: 03/12/23 12:11> - Vitals & Intake/Output Vital Signs: Vital Signs Temperature 97.6 F 03/12/23 11:45 Pulse Rate 76 03/12/23 12:04 Respiratory Rate 16 03/12/23 12:04 Blood Pressure 172/85 03/12/23 12:04 O2 Sat by Pulse Oximetry 96 03/12/23 14:54 Intake & Output: Intake & Output 03/10/23 03/11/23 03/12/23 03/13/23 11:59 11:59 11:59 11:59 Intake Total 340 3796 380 Balance 340 3796 380 Weight 72.3 kg - Lab Result Diagrams: 03/12/23 04:25 03/12/23 04:25 Lab Results-Last 24 Hrs: Lab Results-Last 24 Hours 03/12/23 03/12/23 Range/Units 04:25 04:25 WBC 15.5 H (4.0-10.5) x10^3/uL RBC 3.83 L (4.1-5.4) x10^6/uL Hgb 8.6 L (12.0-16.0) g/dL Hct 30.3 L (35-47) % MCV 79.1 (78-100) fL MCH 22.5 L (26-32) pg MCHC 28.4 L (32-36) g/dL RDW 22.7 H (11.5-14.0) % Plt Count 269 (150-450) x10^3/uL MPV 10.7 (7.5-11.0) fL Gran % 93.2 H (36.0-66.0) % Immature Gran % (Auto) 0.6 H (0.00-0.4) % Nucleat RBC Rel Count 0.0 (0.00-0.1) % Eos # (Auto) 0 (0-0.5) x10^3/uL Immature Gran # (Auto) 0.10 H (0.00-0.03) x10^3u/L Absolute Lymphs (auto) 0.48 L (1.0-4.6) x10^3/uL Absolute Monos (auto) 0.46 (0.0-1.3) x10^3/uL Absolute Nucleated RBC 0.00 (0.00-0.01) x10^3u/L Lymphocytes % 3.1 L (24.0-44.0) % Monocytes % 3.0 (0.0-12.0) % Eosinophils % 0.0 (0.00-5.0) % Basophils % 0.1 (0.0-0.4) % Absolute Granulocytes 14.45 H (1.4-6.9) x10^3/uL Basophils # 0.02 (0-0.4) x10^3/uL Sodium 136 L (137-145) mmol/L Potassium 3.5 (3.5-5.1) mmol/L Chloride 105 (98-107) mmol/L Carbon Dioxide 26 (22-30) mmol/L Anion Gap 9.0 (5-15) MEQ/L BUN 15 (7-17) mg/dL Creatinine 0.67 (0.52-1.04) mg/dL Estimated GFR 96.9 ML/MIN Glucose 137 H (74-106) mg/dL Calcium 8.8 (8.4-10.2) mg/dL Total Bilirubin 0.50 (0.2-1.3) mg/dL AST 26 (14-36) U/L ALT 23 (0-35) U/L Alkaline Phosphatase 60 (38-126) U/L Serum Total Protein 6.1 L (6.3-8.2) g/dL Albumin 3.2 L (3.5-5.0) g/dL Slides for Path Review YES Micro Results-Entire Visit: Microbiology 03/10/23 16:10 Blood Culture - Preliminary Blood 03/10/23 16:00 Blood Culture - Preliminary Blood - Radiology Exams Ordered Rad Exams-Entire Visit: Radiology Procedures Category Date Time Status CHEST WITH CONTRAST [CT] Urgent Exams 03/11/23 09:28 Completed VENOUS BILATERAL EXTREMITY [US] Routine Exams 03/11/23 11:19 Completed - Procedures and Test Procedures and Tests throughout Hospitalization: Therapy Orders & Screens 03/10/23 16:55 Respiratory Therapy Assessment DAILY Comment: 03/10/23 18:25 PT Eval & Treat (MD Order) ONCE Reason for Eval:: weakness Diagnosis: COPD Respiratory Therapy Consult ONCE Comment: Reason For Exam: Diagnosis: COPD OT Eval and Treat (MD Order) ONCE Comment: Physician Instructions: Reason For Exam: Diagnosis: COPD 03/10/23 18:28 FLUTTER [Flutter Therapy] UD Comment: Diagnosis: COPD Incentive Spirometry UD Comment: Diagnosis: COPD 03/10/23 19:02 Respiratory MDI BID Comment: Diagnosis: COPD 03/10/23 20:04 Oxygen Nasal Cannula 3 lpm Comment: Diagnosis: COPD <MADHURI ARNDT - Last Filed: 03/12/23 23:03> Discharge Exam General Appearance: no apparent distress Neurologic Exam: alert, oriented x 3, cooperative Eye Exam: PERRL Ears, Nose, Throat Exam: normal ENT inspection Neck Exam: normal inspection Respiratory Exam: diminished breath sounds Cardiovascular Exam: regular rate/rhythm, normal heart sounds Gastrointestinal/Abdomen Exam: soft, normal bowel sounds Pelvic Exam: deferred Rectal Exam: deferred Back Exam: normal inspection Extremity Exam: normal inspection Skin Exam: normal color <ROSA GONZÁLES - Last Filed: 03/12/23 12:11> Final Diagnosis/Problem List - Final Discharge Diagnosis/Problem (1) Sepsis Status: Acute (2) COPD exacerbation Status: Acute Code(s): J44.1 - CHRONIC OBSTRUCTIVE PULMONARY DISEASE W (ACUTE) EXACERBATION (3) Iron deficiency anemia Status: Acute Code(s): D50.9 - IRON DEFICIENCY ANEMIA, UNSPECIFIED (4) Pneumonia Status: Acute Code(s): J18.9 - PNEUMONIA, UNSPECIFIED ORGANISM (5) Acute respiratory failure Status: Acute Code(s): J96.00 - ACUTE RESPIRATORY FAILURE, UNSP W HYPOXIA OR HYPERCAPNIA (6) Hypothyroidism Status: Acute Code(s): E03.9 - HYPOTHYROIDISM, UNSPECIFIED (7) CHF (congestive heart failure) Status: Acute Code(s): I50.9 - HEART FAILURE, UNSPECIFIED (8) Smoker Status: Acute Code(s): F17.200 - NICOTINE DEPENDENCE, UNSPECIFIED, UNCOMPLICATED <ROSA GONZÁLES - Last Filed: 03/12/23 12:11> <ROSA GONZÁLES - Last Filed: 03/12/23 12:11> <KAMERONFIDELIZ SaenzMADHURI - Last Filed: 03/12/23 23:03> - Discharge Disposition: Home, Self-Care Condition: Fair Prescriptions: New Gabapentin [Neurontin ] 2,400 mg PO HS cap Gabapentin [Neurontin ] 1,200 mg PO DAILY cap Doxycycline Hyclate 100 mg [Vibramycin 100 MG] 100 mg PO BID 5 Days #10 tab levoFLOXacin [Levofloxacin] 750 mg PO DAILY 5 Days #5 tablet Continue Fluticasone/Salmeterol Disc [Advair/[place] 250-50 Diskus 14 Dose] 1 puff IH BID Famotidine 20 mg [Pepcid 20 MG] 20 mg PO BID Albuterol/Ipratropium Mdi [Combivent Inhaler] 1 puff IH QID Sertraline HCl 100 mg [Zoloft 100 MG] 200 mg PO DAILY Isosorbide Mononitrate 30 mg [Imdur 30 MG] 30 mg PO DAILY Tizanidine HCl 4 mg [Zanaflex 4 MG] 4 mg PO TID Quetiapine Fumarate [Seroquel] 300 mg PO HS Nitroglycerin 0.4 mg Tablet [Nitrostat 0.4 MG Tablet] 0.4 mg SL UD PRN PRN Reason: Chest Pain Gabapentin [Neurontin] 2,400 mg PO HS Theophylline Anhydrous [Theophylline ER] 300 mg PO DAILY Fluticasone Propionate [Flonase NASAL] 1 spray NS BID Levothyroxine Sodium 25 Mcg [Synthroid 25 Mcg] 25 mcg PO DAILY tablet Omeprazole 40 mg PO DAILY Albuterol Sulfate Mdi [ALBUTEROL/Proair Hfa MDI] 2 puff IH QID Ipratropium/Albuterol Sulfate [Combivent Respimat Inhal [place]] 1 puff IH Q4H Clonazepam [Klonopin] 2 mg PO BID Quetiapine Fumarate 200 mg PO BID Nystatin 1 gm TOP TID Gabapentin 1,200 mg PO BREAKFAST Changed Prednisone 20 mg [Deltasone 20 mg] 20 mg PO BID 5 Days #10 tablet Instructions: Levofloxacin (Systemic), Pneumonia, Adult (DC), Oxygen Therapy, Adult (DC), Exacerbation of COPD (DC), Doxycycline Follow up with: FARIDA PAYTON [ACTIVE STAFF] - 03/29/23 2:00 pm (at [facility]) WEN CAMERON MD [Primary Care Provider] - 03/26/23 2:15 pm JAIMIE Encounter - JAIMIE Encounter Attestation JAIMIE Encounter Attestation: "REILLY Redmond andhavediscussed pertinent aspects of their care with Rosa Rodriguez agree with the history, physical exam (any modifications based on my personal exam will be noted below), assessment, and plan as outlined in original note. Please see immediately below for my summary of findings and additional assessment and plan along with any meaningful corrections/explanations to the Subjective/Objective portions of the JAIMIE note will be noted." My portion of the encounter took place via telemedicine. <MADHURI ARNDT - Last Filed: 03/12/23 23:03>
[2023-03-12] MEDS: THEOPHYLLINE ER 24HR PO SCH (12:19)
[2023-03-12 14:55] VITALS: O2SAT 96
[2023-03-12] MEDS ORDERED: TROUGH DRUG LEVELS IJ ONE (17:30)
== END 2023-03-12 15:30 | disposition home or self-care (01) ==
LOC: ED 15:41 → MED SURG 17:30
PROVIDERS: ADMIT Internal Medicine; ATTEND Internal Medicine
DX: A41.9 Sepsis, unspecified organism (principal); J44.1 Chronic obstructive pulmonary disease with (acute) exacerbation; D50.9 Iron deficiency anemia, unspecified; J18.9 Pneumonia, unspecified organism; J96.00 Acute respiratory failure, unspecified whether with hypoxia or hypercapnia; E03.9 Hypothyroidism, unspecified; I50.9 Heart failure, unspecified; I25.10 Atherosclerotic heart disease of native coronary artery without angina pectoris; E78.5 Hyperlipidemia, unspecified; F17.200 Nicotine dependence, unspecified, uncomplicated; Z79.899 Other long term (current) drug therapy; Z20.828 Contact with and (suspected) exposure to other viral communicable diseases; Z99.81 Dependence on supplemental oxygen
CPT/HCPCS: 0241U; 36000; 36415; 71045; 71260; 80053; 81001; 82607; 82728; 82746; 82947; 83540; 83605; 83735; 83880; 84145; 84484; 85014; 85018; 85025; 86850; 86900; 86901; 86922; 87040; 87641; 93005; 93041; 93970; 94640; 94667; 94668; 94762; 96365; 96368; 97161; 99285; Q3014; 93268; J0456; J0692; J0696; J1650; J2920; J7609; A9270-GY; G0378; J3370

== ENCOUNTER 2023-05-20 15:10 | Observation (INO) | payer MEDICARE ==
[2023-05-20] MEDS ORDERED: PROVENTIL 2.5 MG/3 ML NEB IH ONE (15:14)
[2023-05-20] MEDS: PROVENTIL 2.5 MG/3 ML NEB IH ONE (15:23)
[2023-05-20] MEDS ORDERED: Sterile H2O 10 ml IJ ONE ×2 (15:56→21:39)
[2023-05-20] MEDS ORDERED: solu-MEDROL ONE ×2 (15:56→21:36)
--- NOTE | 2023-05-20 15:56 | ERPHSYRPT ---
- History of Present Illness Time Seen by Provider: 05/20/23 15:32 Source: patient, EMS Exam Limitations: no limitations Patient Subjective Stated Complaint: pt states that she has been short of breath since last night Triage Nursing Assessment: pt came into the er via ambulance; pt transfer to cot per self; pt is axo x4; c/o SOB; pt is sitting on the edge of the bed sob; pt has labored breathing; lung sounds are diminished and expiratory wheezing present; pt wears 3L via NC; skin is pale, dry, warm; hypertensive Physician History: 67-year-old female with history of chronic respiratory failure secondary to COPD on 3 L oxygen, congestive heart failure, hypertension, hyperlipidemia, GERD presented in the ER via EMS with complaints of increasing shortness of breath since yesterday. Patient reports coughing up thick clear to yellow sputum moderate in amount with shortness of breath with activity and now even at resting. Patient oxygen saturation was around 88% on 3 L on EMS arrival, given DuoNeb and improved. Patient is currently on 4 L oxygen with saturation in mid 90s. She has diminished breath sounds bilaterally with wheezing. Denies any fever or chills. No known sick contact. Denies any chest pain or palpitations. Allergies/Adverse Reactions: morphine Allergy (Severe, Verified 05/20/23 18:37) Fainting oxycodone Allergy (Verified 05/20/23 18:37) Shortness of Breath Penicillins Allergy (Verified 05/20/23 18:37) oxymorphone Adverse Reaction (Severe, Verified 05/20/23 18:37) Fainting Coconut Adverse Reaction (Intermediate, Verified 05/20/23 18:37) Headache bupropion HCl [From Wellbutrin] Adverse Reaction (Mild, Verified 05/20/23 18:37) Hives Home Medications: Albuterol/Ipratropium Mdi [Combivent Inhaler] 1 puff IH QID 12/29/12 [History] Famotidine 20 mg [Pepcid 20 MG] 20 mg PO BID 12/29/12 [History] Fluticasone/Salmeterol Disc [Advair/Wixella 250-50 Diskus 14 Dose] 1 puff IH BID 12/29/12 [History] Sertraline HCl 100 mg [Zoloft 100 MG] 200 mg PO DAILY 12/17/13 [History] Isosorbide Mononitrate 30 mg [Imdur 30 MG] 30 mg PO DAILY 11/05/14 [History] Tizanidine HCl 4 mg [Zanaflex 4 MG] 4 mg PO TID 01/16/15 [History] Quetiapine Fumarate [Seroquel] 300 mg PO HS 10/17/15 [History] Nitroglycerin 0.4 mg Tablet [Nitrostat 0.4 MG Tablet] 0.4 mg SL UD PRN 11/15/15 [History] Gabapentin [Neurontin] 2,400 mg PO HS 04/08/20 [History] Theophylline Anhydrous [Theophylline ER] 300 mg PO DAILY 12/23/20 [History] Fluticasone Propionate [Flonase NASAL] 1 spray NS BID 03/15/21 [History] Omeprazole 40 mg PO DAILY 10/22/21 [History] Albuterol Sulfate Mdi [ALBUTEROL/Proair Hfa MDI] 2 puff IH QID 03/10/23 [History] Clonazepam [Klonopin] 2 mg PO BID 03/10/23 [History] Ipratropium/Albuterol Sulfate [Combivent Respimat Inhal Animas] 1 puff IH Q4H 03/10/23 [History] Nystatin 1 gm TOP TID 03/10/23 [History] Gabapentin 1,200 mg PO BREAKFAST 03/11/23 [History] Hx Tetanus, Diphtheria Vaccination/Date Given: No Hx Influenza Vaccination/Date Given: No Hx Pneumococcal Vaccination/Date Given: No Travel Risk - International Travel Have you traveled outside of the country in past 3 weeks: No - Emerging Infectious Disease Are you exhibiting symptoms associated with any current EIDs: Yes Symptoms: Shortness of Breath - Review of Systems Constitutional: No Symptoms Eyes: No Symptoms Ears, Nose, & Throat: No Symptoms Respiratory: Cough, Dyspnea, Dyspnea on Exertion (SCOTT), Wheezing Cardiac: No Symptoms Abdominal/Gastrointestinal: No Symptoms Genitourinary Symptoms: No Symptoms Musculoskeletal: Arthralgias Skin: No Symptoms Neurological: No Symptoms Endocrine: No Symptoms Hematologic/Lymphatic: No Symptoms Immunological/Allergic: No Symptoms - Past Medical History Pertinent Past Medical History: Yes Neurological History: Migraines ENT History: No Pertinent History Cardiac History: Congestive Heart Failure, Coronary Artery Disease, High Cholesterol, Other Respiratory History: Asthma, Bronchitis, COPD, Pneumonia Endocrine Medical History: Hypothyroidism Musculoskeletal History: Arthritis, Osteoporosis GI Medical History: GERD, Hernia, Polyps History: No Pertinent History Psycho-Social History: Anxiety, Bipolar, Depression, Other Female Reproductive Disorders: Fibroids Other Medical History: 2 LEAKY VALVES. BORDERLINE PERSONALITY DISORDER, PTSD, manic depressive. Anemia - Past Surgical History Past Surgical History: Yes Neuro Surgical History: No Pertinent History Cardiac: Cardiac Catheterization Respiratory: No Pertinent History Gastrointestinal: Other Genitourinary: No Pertinent History Musculoskeletal: Other Female Surgical History: Section Other Surgical History: ARM SURGERY-- left wrist laceration from a glass door, 2 c-sections, EGD with dilitation, colonoscopy, heart cath x 2 Significant Family History: no pertinent family hx - Social History Smoking Status: Current every day smoker How long have you smoked: 40 years Exposure to second hand smoke: No Alcohol Use: Socially Drug Use: marijuana Patient Lives Alone: No - Nursing Vital Signs Nursing Vital Signs: Initial Vital Signs Temperature 97.9 F 05/20/23 15:12 Pulse Rate 102 H 05/20/23 15:12 Respiratory Rate 28 H 05/20/23 15:12 Blood Pressure 145/76 05/20/23 15:12 O2 Sat by Pulse Oximetry 100 05/20/23 15:12 Pain Scale Pain Intensity 5 - Physical Exam General Appearance: no apparent distress, alert Eye Exam: PERRL/EOMI Ears, Nose, Throat Exam: hearing grossly normal, normal ENT inspection, normal pharynx Neck Exam: normal inspection, non-tender, supple, full range of motion Respiratory Exam: diminished breath sounds, accessory muscle use, rhonchi, wheezing, No normal breath sounds Cardiovascular/Chest Exam: normal heart sounds, regular rate/rhythm Abdominal/Gastrointestinal Exam: soft, normal bowel sounds, No tenderness Extremity Exam: non-tender, normal range of motion Neurologic Exam: alert, oriented x 3, cooperative Skin Exam: normal color SpO2 Interpretation: O2 applied SpO2: 94 O2 Delivery: Nasal Cannula Ordered Tests: Medication Summary Discontinued Medications Generic Name Dose Route Start Last Admin Trade Name Freq PRN Reason Stop Dose Admin Acetaminophen 650 mg 05/20/23 20:08 05/21/23 10:19 Acetaminophen 325 Mg Tablet PO 06/19/23 20:07 650 mg Q6H PRN PRN Administration PAIN AND/OR FEVER Albuterol Sulfate Confirm 05/20/23 15:14 Albuterol Sulfate 2.5 Mg/3 Ml Neb Administered 05/20/23 15:15 Dose 2.5 mg IH .STK-MED ONE Albuterol Sulfate 2.5 mg 05/20/23 15:22 05/20/23 15:23 Albuterol Sulfate 2.5 Mg/3 Ml Neb IH 05/20/23 15:23 2.5 mg STAT ONE Administration Albuterol/Ipratropium 3 ml 05/20/23 23:00 05/21/23 13:19 Ipratropium/Albuterol Sulfate 3 Ml Ampul.Neb IH 06/19/23 22:59 3 ml Q4HRT VALERY Administration Albuterol/Ipratropium Confirm 05/20/23 22:09 Ipratropium/Albuterol Sulfate 3 Ml Ampul.Neb Administered 05/20/23 22:10 Dose 3 ml IH .STK-MED ONE Clonazepam 2 mg 05/20/23 22:00 05/21/23 08:08 Clonazepam 2 Mg Tablet PO 06/19/23 21:59 2 mg BID VALERY Administration Methylprednisolone Sodium 0 mg 05/20/23 15:32 05/20/23 15:57 Succinate 125 mg/ Sterile IV 05/20/23 15:33 125 mg Water 2 ml STAT ONE Administration Methylprednisolone Sodium 0 mg 05/20/23 22:00 05/21/23 06:31 Succinate 40 mg/ Sterile Water IV 06/19/23 21:59 40 mg 1 ml Q6HT VALERY Administration Famotidine 20 mg 05/20/23 22:00 05/21/23 08:09 Famotidine 20 Mg Tablet PO 06/19/23 21:59 20 mg BID VALERY Administration Fluticasone Propionate 0 gm 05/20/23 22:00 05/21/23 10:23 Fluticasone Propionate 16 Gm Bottle Nasal Animas NS 06/19/23 21:59 16 gm BID VALERY Administration Gabapentin 2,400 mg 05/20/23 22:00 05/20/23 22:11 Gabapentin 400 Mg Capsule PO 06/19/23 21:59 2,400 mg HS VALERY Administration Gabapentin 1,200 mg 05/21/23 08:00 05/21/23 08:04 Gabapentin 400 Mg Capsule PO 06/20/23 07:59 1,200 mg BREAKFAST VALERY Administration Guaifenesin/Dextromethorphan 5 ml 05/20/23 20:08 05/20/23 20:37 Guaifenesin/D-Methorphan Hb 118 Ml Syrup PO 06/19/23 20:07 5 ml Q4H PRN PRN Administration COUGH Levofloxacin/Dextrose 750 mg in 150 mls @ 100 mls/hr 05/20/23 17:37 05/20/23 17:59 Levofloxacin 750mg/150ml D5w IV 05/20/23 19:06 100 ml/hr STAT STA 100 mls/hr Administration Levofloxacin/Dextrose Confirm 05/20/23 17:57 Levofloxacin 750mg/150ml D5w Administered 05/20/23 17:58 Dose 750 mg in 150 mls @ ud IV .STK-MED ONE Azithromycin 500 mg in 250 mls @ 250 mls/hr 05/21/23 10:00 05/21/23 09:05 Zithromax 500 Mg/ 250 Ml Nacl Premix IV 06/20/23 09:59 250 mls/hr Q24H10 VALERY Administration Sodium Chloride Confirm 05/20/23 21:53 Sodium Chloride 0.9% 500 Ml Administered 05/20/23 21:54 Dose 500 mls @ ud IV .STK-MED ONE Sodium Chloride 500 mls @ 50 mls/hr 05/21/23 07:00 Sodium Chloride 0.9% 500 Ml IV 06/20/23 06:59 .Q10H VALERY Ibuprofen 400 mg 05/21/23 08:13 05/21/23 08:17 Ibuprofen 400 Mg Tablet PO 05/21/23 08:14 400 mg STAT ONE Administration Isosorbide Mononitrate 30 mg 05/21/23 10:00 05/21/23 08:09 Isosorbide Mononitrate 30 Mg Tab PO 06/20/23 09:59 30 mg DAILY VALERY Administration Levothyroxine Sodium 25 mcg 05/21/23 10:00 05/21/23 08:04 Levothyroxine Sodium 25 Mcg Tablet PO 06/20/23 09:59 25 mcg DAILY VALERY Administration Methylprednisolone Sodium Succinate Confirm 05/20/23 15:56 Methylprednis Sod Succ 125 Mg/2 Ml Vial Administered 05/20/23 15:57 Dose 125 mg .ROUTE .STK-MED ONE Methylprednisolone Sodium Succinate Confirm 05/20/23 21:36 Methylprednisolone Sod Suc 40m 40 Mg/Ml Vial Administered 05/20/23 21:37 Dose 40 mg .ROUTE .STK-MED ONE Methylprednisolone Sodium Succinate Confirm 05/21/23 05:52 Methylprednisolone Sod Suc 40m 40 Mg/Ml Vial Administered 05/21/23 05:53 Dose 40 mg .ROUTE .STK-MED ONE Nitroglycerin 0.4 mg 05/20/23 19:54 Nitroglycerin 0.4 Mg Tablet Bottle SL 06/19/23 19:53 UD PRN CHEST PAIN Non-Formulary Medication 1 gm 05/20/23 22:00 05/20/23 22:31 Nystatin [Nystatin] TOP 06/19/23 21:59 Not Given TID VALERY Nystatin Confirm 05/20/23 21:36 Nystatin 15 Gm Powder Administered 05/20/23 21:37 Dose 15 gm .ROUTE .STK-MED ONE Nystatin 0 gm 05/21/23 10:00 Nystatin 15 Gm Powder TOP 06/20/23 09:59 TID VALERY Pantoprazole Sodium 40 mg 05/21/23 10:00 05/21/23 08:09 Protonix (Pantoprazole) 40 Mg Tablet PO 06/20/23 09:59 40 mg DAILY VALERY Administration Quetiapine Fumarate 300 mg 05/20/23 22:00 05/20/23 22:11 Quetiapine Fumarate 100 Mg Tablet PO 06/19/23 21:59 300 mg HS VALERY Administration Fluticasone/Salmeterol 2 puff 05/21/23 07:00 05/21/23 06:52 Fluticasone/Salmeterol 115/21 - 120 Puff Common Canister IH 06/20/23 06:59 2 puff BIDRT VALERY Administration Sertraline HCl 200 mg 05/21/23 10:00 05/21/23 08:08 Sertraline Hcl 50 Mg Tab PO 06/20/23 09:59 200 mg DAILY VALERY Administration Sterile Water Confirm 05/20/23 15:56 Water For Injection,Sterile 10 Ml Vial Administered 05/20/23 15:57 Dose 10 ml IJ .STK-MED ONE Sterile Water Confirm 05/20/23 21:39 Water For Injection,Sterile 10 Ml Vial Administered 05/20/23 21:40 Dose 10 ml IJ .STK-MED ONE Tizanidine HCl 4 mg 05/20/23 22:00 05/21/23 08:08 Tizanidine Hcl 4 Mg Tablet PO 06/19/23 21:59 4 mg TID VALERY Administration Lab/Rad Data: Laboratory Result Diagrams 05/20/23 15:32 05/20/23 15:44 Laboratory Results 05/20/23 05/20/23 05/20/23 Range/Units 16:35 15:44 15:44 WBC (4.0-10.5) x10^3/uL RBC (4.1-5.4) x10^6/uL Hgb (12.0-16.0) g/dL Hct (35-47) % MCV (78-100) fL MCH (26-32) pg MCHC (32-36) g/dL RDW (11.5-14.0) % Plt Count (150-450) x10^3/uL MPV (7.5-11.0) fL Gran % (36.0-66.0) % Immature Gran % (Auto) (0.00-0.4) % Nucleat RBC Rel Count (0.00-0.1) % Eos # (Auto) (0-0.5) x10^3/uL Immature Gran # (Auto) (0.00-0.03) x10^3u/L Absolute Lymphs (auto) (1.0-4.6) x10^3/uL Absolute Monos (auto) (0.0-1.3) x10^3/uL Absolute Nucleated RBC (0.00-0.01) x10^3u/L Lymphocytes % (24.0-44.0) % Monocytes % (0.0-12.0) % Eosinophils % (0.00-5.0) % Basophils % (0.0-0.4) % Absolute Granulocytes (1.4-6.9) x10^3/uL Basophils # (0-0.4) x10^3/uL Sodium 140 (135-145) mmol/L Potassium 3.4 L (3.5-5.1) mmol/L Chloride 104 (98-107) mmol/L Carbon Dioxide 30 (22-30) mmol/L Anion Gap 9.1 (5-15) MEQ/L BUN 9 (7-17) mg/dL Creatinine 0.71 (0.52-1.04) mg/dL Estimated GFR 94.3 ML/MIN Glucose 90 (74-106) mg/dL Lactic Acid (0.4-2.0) Calcium 8.5 (8.4-10.2) mg/dL Magnesium 2.0 (1.6-2.3) mg/dL Total Bilirubin 0.10 L (0.2-1.3) mg/dL AST 17 (14-36) U/L ALT 12 (0-35) U/L Alkaline Phosphatase 59 (38-126) U/L Troponin I < 0.012 (0.000-0.034) ng/mL NT-Pro-B Natriuret Pep 231 (<300) pg/mL Serum Total Protein 6.4 (6.3-8.2) g/dL Albumin 3.5 (3.5-5.0) g/dL Influenza Type A Ag NEGATIVE (NEGATIVE) Influenza Type B Ag NEGATIVE (NEGATIVE) RSV (PCR) NEGATIVE (NEGATIVE) SARS-CoV-2 (PCR) NEGATIVE (NEGATIVE) Slides for Path Review ABO Group Rh Factor Antibody Screen (NEGATIVE) Crossmatch (COMPATIBLE) 05/20/23 05/20/23 05/20/23 Range/Units 15:32 15:32 15:10 WBC 7.8 (4.0-10.5) x10^3/uL RBC 2.63 L (4.1-5.4) x10^6/uL Hgb 5.5 L* (12.0-16.0) g/dL Hct 20.7 L (35-47) % MCV 78.7 (78-100) fL MCH 20.9 L (26-32) pg MCHC 26.6 L (32-36) g/dL RDW 21.1 H (11.5-14.0) % Plt Count 423 (150-450) x10^3/uL MPV 10.2 (7.5-11.0) fL Gran % 73.0 H (36.0-66.0) % Immature Gran % (Auto) 0.3 (0.00-0.4) % Nucleat RBC Rel Count 0.3 H (0.00-0.1) % Eos # (Auto) 0.15 (0-0.5) x10^3/uL Immature Gran # (Auto) 0.02 (0.00-0.03) x10^3u/L Absolute Lymphs (auto) 1.02 (1.0-4.6) x10^3/uL Absolute Monos (auto) 0.86 (0.0-1.3) x10^3/uL Absolute Nucleated RBC 0.02 H (0.00-0.01) x10^3u/L Lymphocytes % 13.0 L (24.0-44.0) % Monocytes % 11.0 (0.0-12.0) % Eosinophils % 1.9 (0.00-5.0) % Basophils % 0.8 (0.0-0.4) % Absolute Granulocytes 5.71 (1.4-6.9) x10^3/uL Basophils # 0.06 (0-0.4) x10^3/uL Sodium (135-145) mmol/L Potassium (3.5-5.1) mmol/L Chloride (98-107) mmol/L Carbon Dioxide (22-30) mmol/L Anion Gap (5-15) MEQ/L BUN (7-17) mg/dL Creatinine (0.52-1.04) mg/dL Estimated GFR ML/MIN Glucose (74-106) mg/dL Lactic Acid 1.2 (0.4-2.0) Calcium (8.4-10.2) mg/dL Magnesium (1.6-2.3) mg/dL Total Bilirubin (0.2-1.3) mg/dL AST (14-36) U/L ALT (0-35) U/L Alkaline Phosphatase (38-126) U/L Troponin I (0.000-0.034) ng/mL NT-Pro-B Natriuret Pep (<300) pg/mL Serum Total Protein (6.3-8.2) g/dL Albumin (3.5-5.0) g/dL Influenza Type A Ag (NEGATIVE) Influenza Type B Ag (NEGATIVE) RSV (PCR) (NEGATIVE) SARS-CoV-2 (PCR) (NEGATIVE) Slides for Path Review YES ABO Group Rh Factor Antibody Screen (NEGATIVE) Crossmatch COMPATIBLE (COMPATIBLE) 05/20/23 05/20/23 Range/Units 15:10 15:10 WBC (4.0-10.5) x10^3/uL RBC (4.1-5.4) x10^6/uL Hgb (12.0-16.0) g/dL Hct (35-47) % MCV (78-100) fL MCH (26-32) pg MCHC (32-36) g/dL RDW (11.5-14.0) % Plt Count (150-450) x10^3/uL MPV (7.5-11.0) fL Gran % (36.0-66.0) % Immature Gran % (Auto) (0.00-0.4) % Nucleat RBC Rel Count (0.00-0.1) % Eos # (Auto) (0-0.5) x10^3/uL Immature Gran # (Auto) (0.00-0.03) x10^3u/L Absolute Lymphs (auto) (1.0-4.6) x10^3/uL Absolute Monos (auto) (0.0-1.3) x10^3/uL Absolute Nucleated RBC (0.00-0.01) x10^3u/L Lymphocytes % (24.0-44.0) % Monocytes % (0.0-12.0) % Eosinophils % (0.00-5.0) % Basophils % (0.0-0.4) % Absolute Granulocytes (1.4-6.9) x10^3/uL Basophils # (0-0.4) x10^3/uL Sodium (135-145) mmol/L Potassium (3.5-5.1) mmol/L Chloride (98-107) mmol/L Carbon Dioxide (22-30) mmol/L Anion Gap (5-15) MEQ/L BUN (7-17) mg/dL Creatinine (0.52-1.04) mg/dL Estimated GFR ML/MIN Glucose (74-106) mg/dL Lactic Acid (0.4-2.0) Calcium (8.4-10.2) mg/dL Magnesium (1.6-2.3) mg/dL Total Bilirubin (0.2-1.3) mg/dL AST (14-36) U/L ALT (0-35) U/L Alkaline Phosphatase (38-126) U/L Troponin I (0.000-0.034) ng/mL NT-Pro-B Natriuret Pep (<300) pg/mL Serum Total Protein (6.3-8.2) g/dL Albumin (3.5-5.0) g/dL Influenza Type A Ag (NEGATIVE) Influenza Type B Ag (NEGATIVE) RSV (PCR) (NEGATIVE) SARS-CoV-2 (PCR) (NEGATIVE) Slides for Path Review ABO Group A Rh Factor POSITIVE Antibody Screen NEGATIVE (NEGATIVE) Crossmatch COMPATIBLE (COMPATIBLE) - Progress Progress: improved, re-examined Air Movement: fair Progress Note: 05/20/23 17:47 67-year-old is evaluated for increasing shortness of breath with wheezing and diminished breath sounds bilaterally. Patient was mildly hypoxic on EMS arrival despite being on 3 L oxygen. She is given DuoNeb in route and on 4 L, saturation improved. Patient workup showed drop of hemoglobin to 5.5. Patient does have history of anemia needing transfusions in the past. EKG did not show any acute ST elevations. Discussed with patient about risk and benefits of transfusion and she agreed to go ahead with transfusion. Son was involved in her decision making as well. Will type and crossmatch 2 units. She is given the breathing treatment and steroid. Chest x-ray negative for acute infiltrative process reviewed by me,. Has fairly unremarkable chemistries and negative troponins. I believe patient has COPD exacerbation and will go ahead with empiric dose of antibiotics. Part of her symptoms could be secondary to a nemia. I have discussed with Dr. Lan, reviewed history, workup and agreed with admission. 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
[2023-05-20] MEDS: solu-MEDROL 125 MG, Sterile H2O 10 ml 2 ML IV ONE (15:57)
--- NOTE | 2023-05-20 16:26 | XRAY ---
Indication: Short of breath. Comparison: March 10, 2023 Portable chest improved and is now clear. Heart not enlarged. Again CT proven hiatal hernia with partial intrathoracic stomach. Bony thorax intact again with osteopenia and degenerative changes. Impression: Nonacute chest with chronic findings.
[2023-05-20 16:49] LABS: Absolute Neutrophil Ct (ANC) 5.71 x10^3/uL (1.4-6.9); BASOPHIL % 0.8 % (0.0-0.4); Basophil (Absolute #) 0.06 x10^3/uL (0-0.4); Eosinophil % 1.9 % (0.00-5.0); Eosinophil (Absolute #) 0.15 x10^3/uL (0-0.5); Hematocrit 20.7 % (35-47); IMMATURE GRAN # 0.02 x10^3u/L (0.00-0.03); IMMATURE GRAN % 0.3 % (0.00-0.4); Lymphocyte (Absolute #) 1.02 x10^3/uL (1.0-4.6); Mean Cell Volume 78.7 fL (78-100); Mean Corpuscular Hemoglobin 20.9 pg (26-32); Mean Corpuscular Hgb Concent. 26.6 g/dL (32-36); Mean Platelet Volume 10.2 fL (7.5-11.0); Monocyte (Absolute #) 0.86 x10^3/uL (0.0-1.3); NUCLEATED RBC # 0.02 x10^3u/L (0.00-0.01); NUCLEATED RBC % 0.3 % (0.00-0.1); Platelet Count 423 x10^3/uL (150-450); Red Blood Count 2.63 x10^6/uL (4.1-5.4); Red Cell Distribution Width 21.1 % (11.5-14.0); White Blood Count 7.8 x10^3/uL (4.0-10.5)
[2023-05-20 16:55] LABS: Hemoglobin 5.5 g/dL (12.0-16.0)
[2023-05-20 17:00] LABS: ALBUMIN 3.5 g/dL (3.5-5.0); ANION GAP 9.1 MEQ/L (5-15); BILIRUBIN,TOTAL 0.1 mg/dL (0.2-1.3); Calcium 8.5 mg/dL (8.4-10.2); Creatinine 1 0.71 mg/dL (0.52-1.04); EST GLOMERULAR FILTRATION RATE 94.3 ML/MIN; Potassium 3.4 mmol/L (3.5-5.1); Total Protein 6.4 g/dL (6.3-8.2)
[2023-05-20 17:11] LABS: NT PRO BNPII 231 pg/mL (<300); TROPONIN < 0.012 ng/mL (0.000-0.034)
[2023-05-20 17:22] LABS: INFLUENZA A NEGATIVE (NEGATIVE); INFLUENZA B NEGATIVE (NEGATIVE); RESPIRATORY SYNCTIAL VIRUS NEGATIVE (NEGATIVE); SARS-CoV-2 Xpert Express NEGATIVE (NEGATIVE)
[2023-05-20 17:43] LABS: CROSS MATCH (PRBC) COMPATIBLE (COMPATIBLE)
[2023-05-20 17:51] LABS: ABO TYPING A; RH TYPING POSITIVE
[2023-05-20 17:52] LABS: Antibody Screen NEGATIVE (NEGATIVE)
[2023-05-20] MEDS ORDERED: LEVOFLOXACIN 750MG/150ML D5W 750 MG/150 ML BAG IV ONE (17:57)
[2023-05-20] MEDS: LEVOFLOXACIN 750MG/150ML D5W 750 MG/150 ML BAG IV STA (17:59)
[2023-05-20 19:05] LABS: Slide Review 1 YES
[2023-05-20] MEDS ORDERED: Nitrostat 0.4 MG Tablet SL PRN (19:54)
--- NOTE | 2023-05-20 20:25 | PCM.HP ---
History of Present Illness - Chief Complaint Chief Complaint: COPD, anemia Date: 05/20/23 History of Present Illness: Ms. Reed is a 67 year-old female with emphysematous COPD, chronic hypoxemic respiratory failure (3L baseline), chart diagnosis of CAD (no PCI or CABG), chart diagnosis of CHF, HLD, hypothyroidism, chronic anemia, and anxiety disorder who presents with shortness of breath. She admits to symptoms starting last night, and upon arrival to [facility], she was found to be needing her baseline 3L [place] oxygen in the setting of c a clear CXR. Laboratory data was remarkable for hypokalemia and H/H 5.5 and 20.7, and a negative viral panel. On my examination, she appear a little anxious but denies any current fevers, chills, nausea, vomiting, diarrhea, syncope, presyncope, visual changes, orthopnea, PND, odynophagia, dysphagia, chest pain, belly pain, dysuria, hematuria, melena, hematochezia, or neurological changes. All other systems were reviewed and were negative. - Review of Systems Constitutional: Other (as per hpi) Medications & Allergies Home Medications: Home Medication List Albuterol/Ipratropium Mdi [Combivent Inhaler] 1 puff IH QID 12/29/12 [History Confirmed 05/20/23] Famotidine 20 mg [Pepcid 20 MG] 20 mg PO BID 12/29/12 [History Confirmed 05/20/23] Fluticasone/Salmeterol Disc [Advair/[place] 250-50 Diskus 14 Dose] 1 puff IH BID 12/29/12 [History Confirmed 05/20/23] Sertraline HCl 100 mg [Zoloft 100 MG] 200 mg PO DAILY 12/17/13 [History Confirmed 05/20/23] Isosorbide Mononitrate 30 mg [Imdur 30 MG] 30 mg PO DAILY 11/05/14 [History Confirmed 05/20/23] Tizanidine HCl 4 mg [Zanaflex 4 MG] 4 mg PO TID 01/16/15 [History Confirmed 05/20/23] Quetiapine Fumarate [Seroquel] 300 mg PO HS 10/17/15 [History Confirmed 05/20/23] Nitroglycerin 0.4 mg Tablet [Nitrostat 0.4 MG Tablet] 0.4 mg SL UD PRN 11/15/15 [History Confirmed 05/20/23] Gabapentin [Neurontin] 2,400 mg PO HS 04/08/20 [History Confirmed 05/20/23] Theophylline Anhydrous [Theophylline ER] 300 mg PO DAILY 12/23/20 [History Confirmed 05/20/23] Fluticasone Propionate [Flonase NASAL] 1 spray NS BID 03/15/21 [History Confirmed 05/20/23] Levothyroxine Sodium 25 Mcg [Synthroid 25 Mcg] 25 mcg PO DAILY tablet 03/17/21 [Rx Confirmed 05/20/23] Omeprazole 40 mg PO DAILY 10/22/21 [History Confirmed 05/20/23] Albuterol Sulfate Mdi [ALBUTEROL/Proair Hfa MDI] 2 puff IH QID 03/10/23 [History Confirmed 05/20/23] Clonazepam [Klonopin] 2 mg PO BID 03/10/23 [History Confirmed 05/20/23] Ipratropium/Albuterol Sulfate [Combivent Respimat Inhal [place]] 1 puff IH Q4H 03/10/23 [History Confirmed 05/20/23] Nystatin 1 gm TOP TID 03/10/23 [History Confirmed 05/20/23] Gabapentin 1,200 mg PO BREAKFAST 03/11/23 [History Confirmed 05/20/23] Gabapentin [Neurontin ] 2,400 mg PO HS cap 03/12/23 [Rx Confirmed 05/20/23] Allergies/Adverse Reactions: Allergies Allergy/AdvReac Type Severity Reaction Status Date / Time morphine Allergy Severe Fainting Verified 05/20/23 18:37 oxycodone Allergy Shortness Verified 05/20/23 18:37 of Breath Penicillins Allergy Verified 05/20/23 18:37 oxymorphone AdvReac Severe Fainting Verified 05/20/23 18:37 [place] AdvReac Intermediate Headache Verified 05/20/23 18:37 bupropion HCl AdvReac Mild Hives Verified 05/20/23 18:37 [From Wellbutrin] - Past Medical History Past Medical History: Yes Neurological History: Migraines ENT History: No Pertinent History Cardiac History: Congestive Heart Failure, Coronary Artery Disease, High Cholesterol, Other Respiratory History: Asthma, Bronchitis, COPD, Pneumonia Endocrine Medical History: Hypothyroidism Musculoskelatal History: Arthritis, Osteoporosis GI Medical History: GERD, Hernia, Polyps History: No Pertinent History Pyscho-Social History: Anxiety, Bipolar, Depression, Other Reproductive Disorders: Fibroids Comment: chronic anemia, leaky valves, PTSD, manic depression, borderline personality - Female History Are you now?: No - Past Surgical History Past Surgical History: Yes Neuro Surgical History: No Pertinent History Cardiac History: Cardiac Catheterization Respiratory Surgery: No Pertinent History GI Surgical History: Other Genitourinary Surgical Hx: No Pertinent History Musculskeletal Surgical Hx: Other Female Surgical History: Section Other Surgical History: x 2, heart cath x 2, left wrist surgery, Significant Family History: no pertinent family hx - Social History Smoking Status: Current every day smoker How long have you smoked: 40+ years Exposure to second hand smoke: Yes Alcohol: None Drug Use: marijuana - Social Determinants of Health Will the patient participate in the screening: Yes Do you worry about a steady place to live?: Yes Do you have any problems with any of the following?: No known problems In the past 12 months,have you had to go without utilities?: No Have you or anyone in your house had to go without enough: No Transportation Issues: No Has anyone in your support network made you feel unsafe?: No Does the patient want assistance with any of the above?: No - Physical Exam Vital Signs: Vital Signs - 24 hr Temp Pulse Resp BP BP Pulse Ox 05/20/23 20:01 97 H 18 99 05/20/23 19:46 97.1 F 96 H 24 148/60 99 05/20/23 18:23 97.1 F 96 H 24 148/60 99 05/20/23 18:11 99 05/20/23 17:49 94 L 05/20/23 17:30 82 18 125/60 100 05/20/23 17:01 131/39 100 05/20/23 16:30 91 H 22 129/64 100 05/20/23 16:20 90 31 H 100 05/20/23 16:10 31 H 100 05/20/23 16:03 26 H 100 05/20/23 15:30 92 H 26 H 143/78 100 05/20/23 15:24 93 H 22 94 L 05/20/23 15:12 97.9 F 102 H 28 H 145/76 100 General Appearance: no apparent distress, alert Neurologic Exam: alert, oriented x 3, cooperative, normal mood/affect, nml cerebellar function, nml station & gait, sensation nml, No motor deficits Eye Exam: PERRL/EOMI, eyes nml inspection Ears, Nose, Throat Exam: normal ENT inspection, TMs normal, pharynx normal, moist mucous membranes Neck Exam: normal inspection, non-tender, supple, full range of motion Respiratory Exam: normal breath sounds, lungs clear, No respiratory distress Cardiovascular Exam: regular rate/rhythm, normal heart sounds, normal peripheral pulses Gastrointestinal/Abdomen Exam: soft, normal bowel sounds, No tenderness, No mass Back Exam: normal inspection, normal range of motion, No CVA tenderness, No vertebral tenderness Extremity Exam: normal inspection, normal range of motion, pelvis stable Skin Exam: normal color, warm, dry, No rash Lymphatic Exam: No adenopathy Results - Labs Lab/Micro Results: Lab Results-Last 24 Hours 05/20/23 05/20/23 05/20/23 Range/Units 15:10 15:10 15:10 WBC (4.0-10.5) x10^3/uL RBC (4.1-5.4) x10^6/uL Hgb (12.0-16.0) g/dL Hct (35-47) % MCV (78-100) fL MCH (26-32) pg MCHC (32-36) g/dL RDW (11.5-14.0) % Plt Count (150-450) x10^3/uL MPV (7.5-11.0) fL Gran % (36.0-66.0) % Immature Gran % (Auto) (0.00-0.4) % Nucleat RBC Rel Count (0.00-0.1) % Eos # (Auto) (0-0.5) x10^3/uL Immature Gran # (Auto) (0.00-0.03) x10^3u/L Absolute Lymphs (auto) (1.0-4.6) x10^3/uL Absolute Monos (auto) (0.0-1.3) x10^3/uL Absolute Nucleated RBC (0.00-0.01) x10^3u/L Lymphocytes % (24.0-44.0) % Monocytes % (0.0-12.0) % Eosinophils % (0.00-5.0) % Basophils % (0.0-0.4) % Absolute Granulocytes (1.4-6.9) x10^3/uL Basophils # (0-0.4) x10^3/uL Sodium (135-145) mmol/L Potassium (3.5-5.1) mmol/L Chloride (98-107) mmol/L Carbon Dioxide (22-30) mmol/L Anion Gap (5-15) MEQ/L BUN (7-17) mg/dL Creatinine (0.52-1.04) mg/dL Estimated GFR ML/MIN Glucose (74-106) mg/dL Lactic Acid (0.4-2.0) Calcium (8.4-10.2) mg/dL Magnesium (1.6-2.3) mg/dL Total Bilirubin (0.2-1.3) mg/dL AST (14-36) U/L ALT (0-35) U/L Alkaline Phosphatase (38-126) U/L Troponin I (0.000-0.034) ng/mL NT-Pro-B Natriuret Pep (<300) pg/mL Serum Total Protein (6.3-8.2) g/dL Albumin (3.5-5.0) g/dL Influenza Type A Ag (NEGATIVE) Influenza Type B Ag (NEGATIVE) RSV (PCR) (NEGATIVE) SARS-CoV-2 (PCR) (NEGATIVE) Slides for Path Review ABO Group A Rh Factor POSITIVE Antibody Screen NEGATIVE (NEGATIVE) Crossmatch COMPATIBLE COMPATIBLE (COMPATIBLE) 05/20/23 05/20/23 05/20/23 Range/Units 15:32 15:32 15:44 WBC 7.8 (4.0-10.5) x10^3/uL RBC 2.63 L (4.1-5.4) x10^6/uL Hgb 5.5 L* (12.0-16.0) g/dL Hct 20.7 L (35-47) % MCV 78.7 (78-100) fL MCH 20.9 L (26-32) pg MCHC 26.6 L (32-36) g/dL RDW 21.1 H (11.5-14.0) % Plt Count 423 (150-450) x10^3/uL MPV 10.2 (7.5-11.0) fL Gran % 73.0 H (36.0-66.0) % Immature Gran % (Auto) 0.3 (0.00-0.4) % Nucleat RBC Rel Count 0.3 H (0.00-0.1) % Eos # (Auto) 0.15 (0-0.5) x10^3/uL Immature Gran # (Auto) 0.02 (0.00-0.03) x10^3u/L Absolute Lymphs (auto) 1.02 (1.0-4.6) x10^3/uL Absolute Monos (auto) 0.86 (0.0-1.3) x10^3/uL Absolute Nucleated RBC 0.02 H (0.00-0.01) x10^3u/L Lymphocytes % 13.0 L (24.0-44.0) % Monocytes % 11.0 (0.0-12.0) % Eosinophils % 1.9 (0.00-5.0) % Basophils % 0.8 (0.0-0.4) % Absolute Granulocytes 5.71 (1.4-6.9) x10^3/uL Basophils # 0.06 (0-0.4) x10^3/uL Sodium 140 (135-145) mmol/L Potassium 3.4 L (3.5-5.1) mmol/L Chloride 104 (98-107) mmol/L Carbon Dioxide 30 (22-30) mmol/L Anion Gap 9.1 (5-15) MEQ/L BUN 9 (7-17) mg/dL Creatinine 0.71 (0.52-1.04) mg/dL Estimated GFR 94.3 ML/MIN Glucose 90 (74-106) mg/dL Lactic Acid 1.2 (0.4-2.0) Calcium 8.5 (8.4-10.2) mg/dL Magnesium 2.0 (1.6-2.3) mg/dL Total Bilirubin 0.10 L (0.2-1.3) mg/dL AST 17 (14-36) U/L ALT 12 (0-35) U/L Alkaline Phosphatase 59 (38-126) U/L Troponin I (0.000-0.034) ng/mL NT-Pro-B Natriuret Pep (<300) pg/mL Serum Total Protein 6.4 (6.3-8.2) g/dL Albumin 3.5 (3.5-5.0) g/dL Influenza Type A Ag (NEGATIVE) Influenza Type B Ag (NEGATIVE) RSV (PCR) (NEGATIVE) SARS-CoV-2 (PCR) (NEGATIVE) Slides for Path Review YES ABO Group Rh Factor Antibody Screen (NEGATIVE) Crossmatch (COMPATIBLE) 05/20/23 05/20/23 05/20/23 Range/Units 15:44 16:35 19:08 WBC (4.0-10.5) x10^3/uL RBC (4.1-5.4) x10^6/uL Hgb (12.0-16.0) g/dL Hct (35-47) % MCV (78-100) fL MCH (26-32) pg MCHC (32-36) g/dL RDW (11.5-14.0) % Plt Count (150-450) x10^3/uL MPV (7.5-11.0) fL Gran % (36.0-66.0) % Immature Gran % (Auto) (0.00-0.4) % Nucleat RBC Rel Count (0.00-0.1) % Eos # (Auto) (0-0.5) x10^3/uL Immature Gran # (Auto) (0.00-0.03) x10^3u/L Absolute Lymphs (auto) (1.0-4.6) x10^3/uL Absolute Monos (auto) (0.0-1.3) x10^3/uL Absolute Nucleated RBC (0.00-0.01) x10^3u/L Lymphocytes % (24.0-44.0) % Monocytes % (0.0-12.0) % Eosinophils % (0.00-5.0) % Basophils % (0.0-0.4) % Absolute Granulocytes (1.4-6.9) x10^3/uL Basophils # (0-0.4) x10^3/uL Sodium (135-145) mmol/L Potassium (3.5-5.1) mmol/L Chloride (98-107) mmol/L Carbon Dioxide (22-30) mmol/L Anion Gap (5-15) MEQ/L BUN (7-17) mg/dL Creatinine (0.52-1.04) mg/dL Estimated GFR ML/MIN Glucose (74-106) mg/dL Lactic Acid (0.4-2.0) Calcium (8.4-10.2) mg/dL Magnesium (1.6-2.3) mg/dL Total Bilirubin (0.2-1.3) mg/dL AST (14-36) U/L ALT (0-35) U/L Alkaline Phosphatase (38-126) U/L Troponin I < 0.012 < 0.012 (0.000-0.034) ng/mL NT-Pro-B Natriuret Pep 231 (<300) pg/mL Serum Total Protein (6.3-8.2) g/dL Albumin (3.5-5.0) g/dL Influenza Type A Ag NEGATIVE (NEGATIVE) Influenza Type B Ag NEGATIVE (NEGATIVE) RSV (PCR) NEGATIVE (NEGATIVE) SARS-CoV-2 (PCR) NEGATIVE (NEGATIVE) Slides for Path Review ABO Group Rh Factor Antibody Screen (NEGATIVE) Crossmatch (COMPATIBLE) - Radiology Impressions Radiology Exams & Impressions: Radiology Procedures Category Date Time Status CHEST 1 VIEW (PORTABLE) Stat Exams 05/20/23 15:35 Completed CHEST WITHOUT CONTRAST [CT] Routine Exams 05/20/23 19:54 Ordered - Other Procedures and Tests Respiratory Therapy 05/20/23 18:11 Oxygen Nasal Cannula 4 lpm 05/20/23 20:13 Respiratory Therapy Assessment DAILY Assessment/Plan (1) COPD exacerbation Current Visit: Yes Status: Acute Assessment & Plan: ASSESSMENT 1. Acute Emphysematous COPD Exacerbation 2. Hypokalemia 3. Acute on Chronic Anemia 4. Chart Diagnosis of CAD (no PCI; no CABG) 5. Chart Diagnosis of CHF (no echo) 6. Chronic Hypoxemic Respiratory Failure 7. Hyperlipidemia 8. Hypothyroidism 9. Anxiety Disorder PLAN 1. IV steroids + Nebs 2. Empiric Azithro 3. CT chest as follow-up to last CT chest which showed dense airspace disease 4. Replete K 5. 2U PRBC ordered and will be transfused 6. She has had an endoscopy before for her anemia and was unremarkable as per patient 7. Continue home medications for HLD and anxiety Famotidine The entirety of this encounter was done via telemedicine using audio and visual Guicho Lan MD Pulmonary and Critical Care Medicine Code(s): J44.1 - CHRONIC OBSTRUCTIVE PULMONARY DISEASE W (ACUTE) EXACERBATION Telemedicine Encounter - Telemedicine Encounter Telemedicine Encounter: The entirety of this encounter was performed via Telemedicine"
[2023-05-20] MEDS: TYLENOL 325 MG PO PRN (20:36)
[2023-05-20] MEDS: Robitussin-Dm Syrup PO PRN (20:37)
[2023-05-20] MEDS ORDERED: NYSTOP POWDER 15 GM ONE (21:36)
[2023-05-20] MEDS ORDERED: Sodium Chloride 0.9% 500 ML 500 ML IV ONE (21:53)
[2023-05-20] MEDS ORDERED: FLUTICASONE-SALMETEROL 250-50 IH SCH (22:00)
[2023-05-20] MEDS ORDERED: DUONEB 0.5-3 MG/3 ml Neb IH ONE (22:09)
[2023-05-20] MEDS: Zanaflex 4 MG PO SCH (22:11)
[2023-05-20] MEDS: Neurontin PO SCH (22:11)
[2023-05-20] MEDS: Seroquel 100 MG PO SCH (22:11)
[2023-05-20] MEDS: Pepcid 20 MG PO SCH (22:12)
[2023-05-20] MEDS: KLONOPIN PO SCH (22:12)
[2023-05-20] MEDS: DUONEB 0.5-3 MG/3 ml Neb IH SCH (22:14)
[2023-05-20] MEDS: solu-MEDROL 40 MG, Sterile H2O 10 ml 1 ML IV SCH (22:20)
[2023-05-20] MEDS: NON-FORMULARY ITEM (Nystatin [Nystatin] 1 EACH Powder.Ea.) TOP SCH (22:31)
[2023-05-21] MEDS ORDERED: solu-MEDROL ONE (05:52)
[2023-05-21] MEDS: Flonase NASAL NS SCH (06:51)
[2023-05-21] MEDS: Advair Hfa 115/21 Common canister IH SCH (06:52)
[2023-05-21 06:57] LABS: Absolute Neutrophil Ct (ANC) 2.45 x10^3/uL (1.4-6.9); Basophil (Absolute #) 0 x10^3/uL (0-0.4); Eosinophil (Absolute #) 0 x10^3/uL (0-0.5); Hematocrit 27.6 % (35-47); IMMATURE GRAN # 0.01 x10^3u/L (0.00-0.03); IMMATURE GRAN % 0.3 % (0.00-0.4); Lymphocytes % 12.9 % (24.0-44.0); Mean Cell Volume 82.4 fL (78-100); Mean Corpuscular Hemoglobin 23.9 pg (26-32); Mean Platelet Volume 9.6 fL (7.5-11.0); Monocyte (Absolute #) 0.25 x10^3/uL (0.0-1.3); NUCLEATED RBC # 0.02 x10^3u/L (0.00-0.01); NUCLEATED RBC % 0.6 % (0.00-0.1); Neutrophil % 78.8 % (36.0-66.0); Platelet Count 366 x10^3/uL (150-450); Red Blood Count 3.35 x10^6/uL (4.1-5.4); Red Cell Distribution Width 19.9 % (11.5-14.0); White Blood Count 3.1 x10^3/uL (4.0-10.5)
[2023-05-21] MEDS ORDERED: Sodium Chloride 0.9% 500 ML 500 ML IV SCH (07:00)
[2023-05-21 07:14] LABS: ALBUMIN 3.5 g/dL (3.5-5.0); ANION GAP 9.2 MEQ/L (5-15); BILIRUBIN,TOTAL 0.6 mg/dL (0.2-1.3); Calcium 8.9 mg/dL (8.4-10.2); Creatinine 1 0.77 mg/dL (0.52-1.04); EST GLOMERULAR FILTRATION RATE 85.6 ML/MIN; MAGNESIUM 2.2 mg/dL (1.6-2.3); Potassium 4.5 mmol/L (3.5-5.1); Total Protein 6.4 g/dL (6.3-8.2)
[2023-05-21] MEDS ORDERED: NON-FORMULARY ITEM (Gabapentin [Gabapentin] 600 MG Tablet) PO SCH (08:00)
[2023-05-21] MEDS: Neurontin PO SCH (08:04)
[2023-05-21] MEDS: SYNTHROID 25 MCG PO SCH (08:04)
[2023-05-21] MEDS: ZOLOFT 50 MG TABLET PO SCH (08:08)
[2023-05-21] MEDS: Imdur 30 MG PO SCH (08:09)
[2023-05-21] MEDS: Protonix 40MG Tablet PO SCH (08:09)
[2023-05-21] MEDS: MOTRIN 400 MG PO ONE (08:17)
[2023-05-21 08:44] LABS: Slide Review 1 YES
--- NOTE | 2023-05-21 08:47 | XRAY ---
Indication: Fever, cough, and short of breath. Pneumonia. COPD. Multiple contiguous axial images obtained through the chest without contrast. Comparison: March 11, 2023 Lungs again demonstrates moderate diffuse pulmonary emphysema. Previous bilateral airspace disease has cleared. Stable benign 5 mm right middle lobe peripheral noncalcified nodule and tiny right suprahilar calcified granuloma. No new pulmonary mass/nodule, infiltrate, or effusion. Heart not enlarged. Aorta again minimally arteriosclerotic without aneurysm. Stable small precarinal calcified nodes. No pathologic mediastinal lymphadenopathy. Stable moderate size hiatal hernia with partial intrathoracic stomach and omental fat. Bony thorax intact. Limited upper abdomen unremarkable. Impression: 1. Again chronic findings including pulmonary emphysema, hiatal hernia with partial intrathoracic stomach, and old granulomatous disease. 2. Remaining CT chest without contrast exam is negative.
[2023-05-21] MEDS: Zithromax 500 MG/ 250 ML NaCl Premix 500 MG/250 ML IVPB IV SCH (09:05)
--- NOTE | 2023-05-21 09:56 | PCM.DS ---
Discharge Summary Date of Admission: 05/20/23 18:06 Date of Discharge: 05/21/23 Admitting Physician: SEVERO KLEIN MD Primary Care Provider: NISHA,WEN Allergies Allergies morphine Allergy (Severe, Verified 05/20/23 18:37) Fainting oxycodone Allergy (Verified 05/20/23 18:37) Shortness of Breath Penicillins Allergy (Verified 05/20/23 18:37) oxymorphone Adverse Reaction (Severe, Verified 05/20/23 18:37) Fainting [place]ut Adverse Reaction (Intermediate, Verified 05/20/23 18:37) Headache bupropion HCl [From Wellbutrin] Adverse Reaction (Mild, Verified 05/20/23 18:37) [facility] Summary - Hospital Course Hospital Course: Ms. Reed is a 67 year-old female with emphysematous COPD, chronic hypoxemic respiratory failure (3L baseline), chart diagnosis of CAD (no PCI or CABG), chart diagnosis of CHF, HLD, hypothyroidism, chronic anemia, and anxiety disorder who presents with shortness of breath. She admits to symptoms starting last night, and upon arrival to [place], she was found to be needing her baseline 3L NC oxygen in the setting of c a clear CXR. CT showingchronic findings including pulmonary emphysema, hiatal hernia with partial intrathoracic stomach, and old granulomatous disease.Laboratory data was remarkable for hypokalemia and H/H 5.5 and 20.7, and a negative viral panel. On my examination, she appear a little anxious but denies any current fevers, chills, nausea, vomiting, diarrhea, syncope, presyncope, visual changes, orthopnea, PND, odynophagia, dysphagia, chest pain, belly pain, dysuria, hematuria, melena, hematochezia, or neurological changes. All other systems were reviewed and were negative. Dysnpnea improved to baseline. Patient received 2units of blood, now with stable hgb at 8.0. Advised follow up with hematology for chronic iron deficiency anemia. Patient states She has had negative GI workup for her chronic anemia. Denies hmatochezia, melana, or hematuria. Renal/lytes wnl. Patient requesting discharge. Will send her home with protonix, prednisone, and azithromycin. Discharge Note New Diagnosis: COPD exac, hypokalemia, acute on chronic anemia New Medications: protonix, prednisone, azithromycin Follow Up: PCP, hematology, pulmonology Latest Assessment & Plan (1) COPD exacerbation Current Visit: Yes Status: Acute Assessment & Plan: ASSESSMENT 1. Acute Emphysematous COPD Exacerbation 2. Hypokalemia 3. Acute on Chronic Anemia 4. Chart Diagnosis of CAD (no PCI; no CABG) 5. Chart Diagnosis of CHF (no echo) 6. Chronic Hypoxemic Respiratory Failure 7. Hyperlipidemia 8. Hypothyroidism 9. Anxiety Disorder PLAN 1. IV steroids + Nebs 2. Empiric Azithro 3. CT chest as follow-up to last CT chest which showed dense airspace disease 4. Replete K 5. 2U PRBC ordered and will be transfused 6. She has had an endoscopy before for her anemia and was unremarkable as per patient 7. Continue home medications for HLD and anxiety I spent 35 minutes [id number] with the patient on the day of discharge performing discharge exam, discussing hospital stay and discharge instructions with patient and caregivers, preparation of discharge records, prescriptions & referral forms and addressing any questions/concerns the patient had as documented above. - Vitals & Intake/Output Vital Signs: Vital Signs Temperature 98.0 F 05/21/23 06:56 Pulse Rate 85 05/21/23 06:56 Respiratory Rate 16 05/21/23 06:56 Blood Pressure 118/58 05/21/23 06:56 O2 Sat by Pulse Oximetry 98 05/21/23 06:56 Intake & Output: Intake & Output 05/18/23 05/19/23 05/20/23 05/21/23 11:59 11:59 11:59 11:59 Intake Total 580 Balance 580 Weight 71.8 kg - Lab Result Diagrams: 05/21/23 06:50 05/21/23 06:50 Lab Results-Last 24 Hrs: Lab Results-Last 24 Hours 05/20/23 05/20/23 05/20/23 Range/Units 15:10 15:10 15:10 WBC (4.0-10.5) x10^3/uL RBC (4.1-5.4) x10^6/uL Hgb (12.0-16.0) g/dL Hct (35-47) % MCV (78-100) fL MCH (26-32) pg MCHC (32-36) g/dL RDW (11.5-14.0) % Plt Count (150-450) x10^3/uL MPV (7.5-11.0) fL Gran % (36.0-66.0) % Immature Gran % (Auto) (0.00-0.4) % Nucleat RBC Rel Count (0.00-0.1) % Eos # (Auto) (0-0.5) x10^3/uL Immature Gran # (Auto) (0.00-0.03) x10^3u/L Absolute Lymphs (auto) (1.0-4.6) x10^3/uL Absolute Monos (auto) (0.0-1.3) x10^3/uL Absolute Nucleated RBC (0.00-0.01) x10^3u/L Lymphocytes % (24.0-44.0) % Monocytes % (0.0-12.0) % Eosinophils % (0.00-5.0) % Basophils % (0.0-0.4) % Absolute Granulocytes (1.4-6.9) x10^3/uL Basophils # (0-0.4) x10^3/uL Sodium (135-145) mmol/L Potassium (3.5-5.1) mmol/L Chloride (98-107) mmol/L Carbon Dioxide (22-30) mmol/L Anion Gap (5-15) MEQ/L BUN (7-17) mg/dL Creatinine (0.52-1.04) mg/dL Estimated GFR ML/MIN Glucose (74-106) mg/dL Lactic Acid (0.4-2.0) Calcium (8.4-10.2) mg/dL Magnesium (1.6-2.3) mg/dL Total Bilirubin (0.2-1.3) mg/dL AST (14-36) U/L ALT (0-35) U/L Alkaline Phosphatase (38-126) U/L Troponin I (0.000-0.034) ng/mL NT-Pro-B Natriuret Pep (<300) pg/mL Serum Total Protein (6.3-8.2) g/dL Albumin (3.5-5.0) g/dL Influenza Type A Ag (NEGATIVE) Influenza Type B Ag (NEGATIVE) RSV (PCR) (NEGATIVE) SARS-CoV-2 (PCR) (NEGATIVE) Slides for Path Review ABO Group A Rh Factor POSITIVE Antibody Screen NEGATIVE (NEGATIVE) Crossmatch COMPATIBLE COMPATIBLE (COMPATIBLE) 05/20/23 05/20/23 05/20/23 Range/Units 15:32 15:32 15:44 WBC 7.8 (4.0-10.5) x10^3/uL RBC 2.63 L (4.1-5.4) x10^6/uL Hgb 5.5 L* (12.0-16.0) g/dL Hct 20.7 L (35-47) % MCV 78.7 (78-100) fL MCH 20.9 L (26-32) pg MCHC 26.6 L (32-36) g/dL RDW 21.1 H (11.5-14.0) % Plt Count 423 (150-450) x10^3/uL MPV 10.2 (7.5-11.0) fL Gran % 73.0 H (36.0-66.0) % Immature Gran % (Auto) 0.3 (0.00-0.4) % Nucleat RBC Rel Count 0.3 H (0.00-0.1) % Eos # (Auto) 0.15 (0-0.5) x10^3/uL Immature Gran # (Auto) 0.02 (0.00-0.03) x10^3u/L Absolute Lymphs (auto) 1.02 (1.0-4.6) x10^3/uL Absolute Monos (auto) 0.86 (0.0-1.3) x10^3/uL Absolute Nucleated RBC 0.02 H (0.00-0.01) x10^3u/L Lymphocytes % 13.0 L (24.0-44.0) % Monocytes % 11.0 (0.0-12.0) % Eosinophils % 1.9 (0.00-5.0) % Basophils % 0.8 (0.0-0.4) % Absolute Granulocytes 5.71 (1.4-6.9) x10^3/uL Basophils # 0.06 (0-0.4) x10^3/uL Sodium 140 (135-145) mmol/L Potassium 3.4 L (3.5-5.1) mmol/L Chloride 104 (98-107) mmol/L Carbon Dioxide 30 (22-30) mmol/L Anion Gap 9.1 (5-15) MEQ/L BUN 9 (7-17) mg/dL Creatinine 0.71 (0.52-1.04) mg/dL Estimated GFR 94.3 ML/MIN Glucose 90 (74-106) mg/dL Lactic Acid 1.2 (0.4-2.0) Calcium 8.5 (8.4-10.2) mg/dL Magnesium 2.0 (1.6-2.3) mg/dL Total Bilirubin 0.10 L (0.2-1.3) mg/dL AST 17 (14-36) U/L ALT 12 (0-35) U/L Alkaline Phosphatase 59 (38-126) U/L Troponin I (0.000-0.034) ng/mL NT-Pro-B Natriuret Pep (<300) pg/mL Serum Total Protein 6.4 (6.3-8.2) g/dL Albumin 3.5 (3.5-5.0) g/dL Influenza Type A Ag (NEGATIVE) Influenza Type B Ag (NEGATIVE) RSV (PCR) (NEGATIVE) SARS-CoV-2 (PCR) (NEGATIVE) Slides for Path Review YES ABO Group Rh Factor Antibody Screen (NEGATIVE) Crossmatch (COMPATIBLE) 05/20/23 05/20/23 05/20/23 Range/Units 15:44 16:35 19:08 WBC (4.0-10.5) x10^3/uL RBC (4.1-5.4) x10^6/uL Hgb (12.0-16.0) g/dL Hct (35-47) % MCV (78-100) fL MCH (26-32) pg MCHC (32-36) g/dL RDW (11.5-14.0) % Plt Count (150-450) x10^3/uL MPV (7.5-11.0) fL Gran % (36.0-66.0) % Immature Gran % (Auto) (0.00-0.4) % Nucleat RBC Rel Count (0.00-0.1) % Eos # (Auto) (0-0.5) x10^3/uL Immature Gran # (Auto) (0.00-0.03) x10^3u/L Absolute Lymphs (auto) (1.0-4.6) x10^3/uL Absolute Monos (auto) (0.0-1.3) x10^3/uL Absolute Nucleated RBC (0.00-0.01) x10^3u/L Lymphocytes % (24.0-44.0) % Monocytes % (0.0-12.0) % Eosinophils % (0.00-5.0) % Basophils % (0.0-0.4) % Absolute Granulocytes (1.4-6.9) x10^3/uL Basophils # (0-0.4) x10^3/uL Sodium (135-145) mmol/L Potassium (3.5-5.1) mmol/L Chloride (98-107) mmol/L Carbon Dioxide (22-30) mmol/L Anion Gap (5-15) MEQ/L BUN (7-17) mg/dL Creatinine (0.52-1.04) mg/dL Estimated GFR ML/MIN Glucose (74-106) mg/dL Lactic Acid (0.4-2.0) Calcium (8.4-10.2) mg/dL Magnesium (1.6-2.3) mg/dL Total Bilirubin (0.2-1.3) mg/dL AST (14-36) U/L ALT (0-35) U/L Alkaline Phosphatase (38-126) U/L Troponin I < 0.012 < 0.012 (0.000-0.034) ng/mL NT-Pro-B Natriuret Pep 231 (<300) pg/mL Serum Total Protein (6.3-8.2) g/dL Albumin (3.5-5.0) g/dL Influenza Type A Ag NEGATIVE (NEGATIVE) Influenza Type B Ag NEGATIVE (NEGATIVE) RSV (PCR) NEGATIVE (NEGATIVE) SARS-CoV-2 (PCR) NEGATIVE (NEGATIVE) Slides for Path Review ABO Group Rh Factor Antibody Screen (NEGATIVE) Crossmatch (COMPATIBLE) 05/21/23 05/21/23 05/21/23 Range/Units 06:50 06:50 06:50 WBC 3.1 L (4.0-10.5) x10^3/uL RBC 3.35 L (4.1-5.4) x10^6/uL Hgb 8.0 L D (12.0-16.0) g/dL Hct 27.6 L (35-47) % MCV 82.4 (78-100) fL MCH 23.9 L (26-32) pg MCHC 29.0 L (32-36) g/dL RDW 19.9 H (11.5-14.0) % Plt Count 366 (150-450) x10^3/uL MPV 9.6 (7.5-11.0) fL Gran % 78.8 H (36.0-66.0) % Immature Gran % (Auto) 0.3 (0.00-0.4) % Nucleat RBC Rel Count 0.6 H (0.00-0.1) % Eos # (Auto) 0 (0-0.5) x10^3/uL Immature Gran # (Auto) 0.01 (0.00-0.03) x10^3u/L Absolute Lymphs (auto) 0.40 L (1.0-4.6) x10^3/uL Absolute Monos (auto) 0.25 (0.0-1.3) x10^3/uL Absolute Nucleated RBC 0.02 H (0.00-0.01) x10^3u/L Lymphocytes % 12.9 L (24.0-44.0) % Monocytes % 8.0 (0.0-12.0) % Eosinophils % 0.0 (0.00-5.0) % Basophils % 0.0 (0.0-0.4) % Absolute Granulocytes 2.45 (1.4-6.9) x10^3/uL Basophils # 0 (0-0.4) x10^3/uL Sodium 140 (135-145) mmol/L Potassium 4.5 D (3.5-5.1) mmol/L Chloride 106 (98-107) mmol/L Carbon Dioxide 29 (22-30) mmol/L Anion Gap 9.2 (5-15) MEQ/L BUN 13 (7-17) mg/dL Creatinine 0.77 (0.52-1.04) mg/dL Estimated GFR 85.6 ML/MIN Glucose 144 H (74-106) mg/dL Lactic Acid (0.4-2.0) Calcium 8.9 (8.4-10.2) mg/dL Magnesium 2.2 (1.6-2.3) mg/dL Total Bilirubin 0.60 (0.2-1.3) mg/dL AST 16 (14-36) U/L ALT 12 (0-35) U/L Alkaline Phosphatase 50 (38-126) U/L Troponin I < 0.012 (0.000-0.034) ng/mL NT-Pro-B Natriuret Pep (<300) pg/mL Serum Total Protein 6.4 (6.3-8.2) g/dL Albumin 3.5 (3.5-5.0) g/dL Influenza Type A Ag (NEGATIVE) Influenza Type B Ag (NEGATIVE) RSV (PCR) (NEGATIVE) SARS-CoV-2 (PCR) (NEGATIVE) Slides for Path Review YES ABO Group Rh Factor Antibody Screen (NEGATIVE) Crossmatch (COMPATIBLE) - Radiology Exams Ordered Rad Exams-Entire Visit: Radiology Procedures Category Date Time Status CHEST 1 VIEW (PORTABLE) Stat Exams 05/20/23 15:35 Completed CHEST WITHOUT CONTRAST [CT] Routine Exams 05/20/23 20:18 Completed - Procedures and Test Procedures and Tests throughout Hospitalization: Therapy Orders & Screens 05/20/23 15:23 Respiratory Therapy Assessment DAILY Comment: 05/20/23 18:11 Oxygen Nasal Cannula 4 lpm Comment: Respiratory Therapy Consult ONCE Comment: Reason For Exam: 05/20/23 18:36 RT Screen per Nursing Assess ONCE Comment: Protocol Order Physician Instructions: Greater than 3 points order RT Admission Screen Reason For Exam: Triggered on Admission Diagnosis: COPD, anemia Diagnosis: COPD, anemia Pneumonia: No Home O2: Yes Asthma: Yes CHF: No Home CPAP/BIPAP: No Home Nebs/MDI: Yes Total Points: 14 Smoking Cessation Education ONCE Comment: Diagnosis: COPD, anemia Smoking Status: Current every day smoker How long have you smoked: 40+ years Have you smoked in the past 12 months: Yes Approximately how many cigarettes per day: 1 pack Do you dip or chew tobacco: No If,Former Smoker,when did you quit: 1 week ago 05/20/23 20:13 Respiratory Therapy Assessment DAILY Comment: Diagnosis: COPD, anemia Discharge Exam General Appearance: no apparent distress Neurologic Exam: alert, oriented x 3, cooperative Eye Exam: PERRL Ears, Nose, Throat Exam: normal ENT inspection Neck Exam: normal inspection Respiratory Exam: diminished breath sounds, crackles/rales Cardiovascular Exam: regular rate/rhythm, normal heart sounds Gastrointestinal/Abdomen Exam: soft, normal bowel sounds Pelvic Exam: deferred Rectal Exam: deferred Back Exam: normal inspection Extremity Exam: normal inspection Skin Exam: pale Final Diagnosis/Problem List - Final Discharge Diagnosis/Problem (1) Symptomatic anemia Current Visit: Yes Status: Chronic Code(s): D64.9 - ANEMIA, UNSPECIFIED (2) Hypokalemia Current Visit: Yes Status: Acute Code(s): E87.6 - HYPOKALEMIA (3) CAD (coronary artery disease) Current Visit: Yes Status: Acute Code(s): I25.10 - ATHSCL HEART DISEASE OF [place] CORONARY ARTERY W/O ANG PCTRS (4) Chronic hypoxemic respiratory failure Current Visit: Yes Status: Acute (5) HLD (hyperlipidemia) Current Visit: Yes Status: Acute Code(s): E78.5 - HYPERLIPIDEMIA, UNSPECIFIED (6) Hyperthyroidism Current Visit: Yes Status: Acute Code(s): E05.90 - THYROTOXICOSIS, UNSP WITHOUT THYROTOXIC CRISIS OR STORM (7) COPD exacerbation Current Visit: Yes Status: Acute Code(s): J44.1 - CHRONIC OBSTRUCTIVE PULMONARY DISEASE W (ACUTE) EXACERBATION (8) CHF (congestive heart failure) Current Visit: No Status: Acute Code(s): I50.9 - HEART FAILURE, UNSPECIFIED (9) Anxiety Current Visit: No Status: Chronic Code(s): F41.9 - ANXIETY DISORDER, UNSPEC IFIED - Discharge Disposition: Home, Self-Care Condition: Stable Prescriptions: New Prednisone 20 mg [Deltasone 20 mg] 20 mg PO BID 5 Days #10 tablet Azithromycin 250 mg [Zithromax 250 MG TABLET] 250 mg PO DAILY 3 Days #3 tablet Continue Fluticasone/Salmeterol Disc [Advair/[place] 250-50 Diskus 14 Dose] 1 puff IH BID Famotidine 20 mg [Pepcid 20 MG] 20 mg PO BID Albuterol/Ipratropium Mdi [Combivent Inhaler] 1 puff IH QID Sertraline HCl 100 mg [Zoloft 100 MG] 200 mg PO DAILY Isosorbide Mononitrate 30 mg [Imdur 30 MG] 30 mg PO DAILY Tizanidine HCl 4 mg [Zanaflex 4 MG] 4 mg PO TID Quetiapine Fumarate [Seroquel] 300 mg PO HS Nitroglycerin 0.4 mg Tablet [Nitrostat 0.4 MG Tablet] 0.4 mg SL UD PRN PRN Reason: Chest Pain Gabapentin [Neurontin] 2,400 mg PO HS Theophylline Anhydrous [Theophylline ER] 300 mg PO DAILY Fluticasone Propionate [Flonase NASAL] 1 spray NS BID Levothyroxine Sodium 25 Mcg [Synthroid 25 Mcg] 25 mcg PO DAILY tablet Omeprazole 40 mg PO DAILY Albuterol Sulfate Mdi [ALBUTEROL/Proair Hfa MDI] 2 puff IH QID Ipratropium/Albuterol Sulfate [Combivent Respimat Inhal [place]] 1 puff IH Q4H Clonazepam [Klonopin] 2 mg PO BID Nystatin 1 gm TOP TID Gabapentin 1,200 mg PO BREAKFAST Gabapentin [Neurontin ] 2,400 mg PO HS cap Follow up with: WEN CAMERON MD [Primary Care Provider] - 05/27/23 2:45 pm (at [facility]) JODIE ESPITIA MD [NON-STAFF PHY W/O PRIVILEGES] - (Wednesday, will need repeat labs, can see Dr. Gerardo if Omari is not available)
[2023-05-21] MEDS ORDERED: NON-FORMULARY ITEM (Omeprazole [Omeprazole] 40 MG Capsule.Dr) PO SCH (10:00)
[2023-05-21] MEDS ORDERED: NON-FORMULARY ITEM (Sertraline Hcl 100 Mg [Zoloft 100 Mg] 100 MG Tab) PO SCH (10:00)
[2023-05-21] MEDS ORDERED: NYSTOP POWDER 15 GM TOP SCH (10:00)
[2023-05-21 11:53] VITALS: BP 113/55; TEMP 97.7
[2023-05-21 13:22] VITALS: PULSE 92; RESP 24
[2023-05-23 15:13] VITALS: O2SAT 94
== END 2023-05-21 13:50 | disposition home or self-care (01) ==
LOC: ED 15:10 → MED SURG 18:06
PROVIDERS: ADMIT Internal Medicine; ATTEND Internal Medicine
DX: D64.9 Anemia, unspecified (principal); E87.6 Hypokalemia; I25.10 Atherosclerotic heart disease of native coronary artery without angina pectoris; J96.11 Chronic respiratory failure with hypoxia; E78.5 Hyperlipidemia, unspecified; E03.9 Hypothyroidism, unspecified; E05.90 Thyrotoxicosis, unspecified without thyrotoxic crisis or storm; J44.1 Chronic obstructive pulmonary disease with (acute) exacerbation; I50.9 Heart failure, unspecified; F41.9 Anxiety disorder, unspecified; F17.200 Nicotine dependence, unspecified, uncomplicated; Z79.899 Other long term (current) drug therapy; Z20.828 Contact with and (suspected) exposure to other viral communicable diseases; Z99.81 Dependence on supplemental oxygen; Z59.10 Inadequate housing, unspecified
CPT/HCPCS: 0241U; 36000; 36415; 36430; 71045; 71250; 80053; 83605; 83735; 83880; 84484; 85025; 86850; 86900; 86901; 86922; 87040; 93005; 93041; 93268; 94640; 94762; 96374; 99285; G0378; P9016; J0456; J1956; J2920; J2930; J7609; A9270-GY

== ENCOUNTER 2023-06-23 18:56 | Emergency (ER) | payer MEDICARE ==
[2023-06-23 19:12] VITALS: TEMP 98.8
[2023-06-23] MEDS ORDERED: Sterile H2O 10 ml IJ ONE (19:29)
[2023-06-23] MEDS ORDERED: solu-MEDROL ONE (19:29)
[2023-06-23] MEDS: solu-MEDROL 125 MG, Sterile H2O 10 ml 2 ML IV ONE (19:31)
[2023-06-23] MEDS ORDERED: DUONEB 0.5-3 MG/3 ml Neb IH ONE (19:34)
[2023-06-23] MEDS: DUONEB 0.5-3 MG/3 ml Neb IH ONE (19:35)
--- NOTE | 2023-06-23 19:35 | ERPHSYRPT ---
- History of Present Illness Time Seen by Provider: 06/23/23 19:20 Source: patient Exam Limitations: no limitations Patient Subjective Stated Complaint: pt states that she has been short of breath for a week Triage Nursing Assessment: pt came into the er via wheelchair; pt transfer self to cot; axo x3; c/o SOB; pt states pain to throat; SOB; coarse lung sounds in upper lobes; moist hacking cough present; skin PDW; vital wnl Physician History: 67-year-old female history of COPD former smoker uses 2 L nasal cannula oxygen 24 hours/day presents to our ED for evaluation of progressive shortness of breath and cough and chest congestion has been present for 1 week. Symptoms are progressive. Symptoms are moderate in intensity. No specific worsening or improving factors. Patient reports a sore throat. No fever no rash patient otherwise feels well. She denies diarrhea. Son at bedside. They voiced no other complaints or concerns at this time. Portions of this note were created with voice recognition technology. There may be grammatical, spelling, punctuation or sound alike errors Timing/Duration: week(s) (1 week) Activities at Onset: none Severity of Dyspnea-Max: moderate Severity of Dyspnea-Current: moderate Possible Cause: occasional episodes Modifying Factors: Improves With: activity Associated Symptoms: cough Allergies/Adverse Reactions: morphine Allergy (Severe, Verified 06/23/23 19:02) Fainting oxycodone Allergy (Verified 06/23/23 19:02) Shortness of Breath Penicillins Allergy (Verified 06/23/23 19:02) oxymorphone Adverse Reaction (Severe, Verified 06/23/23 19:02) Fainting Coconut Adverse Reaction (Intermediate, Verified 06/23/23 19:02) Headache bupropion HCl [From Wellbutrin] Adverse Reaction (Mild, Verified 06/23/23 19:02) Hives Home Medications: RX: Albuterol/Ipratropium Mdi [Combivent Inhaler] 1 puff IH QID 12/29/12 [History] RX: Famotidine 20 mg [Pepcid 20 MG] 20 mg PO BID 12/29/12 [History] RX: Fluticasone/Salmeterol Disc [Advair/Wixella 250-50 Diskus 14 Dose] 1 puff IH BID 12/29/12 [History] RX: Sertraline HCl 100 mg [Zoloft 100 MG] 200 mg PO DAILY 12/17/13 [History] RX: Isosorbide Mononitrate 30 mg [Imdur 30 MG] 30 mg PO DAILY 11/05/14 [History] RX: Tizanidine HCl 4 mg [Zanaflex 4 MG] 4 mg PO TID 01/16/15 [History] RX: Quetiapine Fumarate [Seroquel] 300 mg PO HS 10/17/15 [History] RX: Nitroglycerin 0.4 mg Tablet [Nitrostat 0.4 MG Tablet] 0.4 mg SL UD PRN 11/15/15 [History] RX: Theophylline Anhydrous [Theophylline ER] 300 mg PO DAILY 12/23/20 [History] RX: Fluticasone Propionate [Flonase NASAL] 1 spray NS BID 03/15/21 [History] RX: Omeprazole 40 mg PO DAILY 10/22/21 [History] RX: Albuterol Sulfate Mdi [ALBUTEROL/Proair Hfa MDI] 2 puff IH QID 03/10/23 [History] RX: Clonazepam [Klonopin] 2 mg PO BID 03/10/23 [History] RX: Gabapentin 1,200 mg PO BREAKFAST 03/11/23 [History] Hx Tetanus, Diphtheria Vaccination/Date Given: No Hx Influenza Vaccination/Date Given: Yes Hx Pneumococcal Vaccination/Date Given: No Immunizations Up to Date: No Travel Risk - International Travel Have you traveled outside of the country in past 3 weeks: No - Emerging Infectious Disease Are you exhibiting symptoms associated with any current EIDs: Yes Symptoms: Shortness of Breath - Review of Systems Constitutional: No Symptoms, No Fever, No Chills Eyes: No Symptoms Ears, Nose, & Throat: No Symptoms Respiratory: No Symptoms, No Cough, No Dyspnea Cardiac: No Symptoms, No Chest Pain, No Edema, No Syncope Abdominal/Gastrointestinal: No Symptoms, No Abdominal Pain, No Nausea, No Vomiting, No Diarrhea Genitourinary Symptoms: No Symptoms, No Dysuria Musculoskeletal: No Symptoms, No Back Pain, No Neck Pain Skin: No Symptoms, No Rash Neurological: No Symptoms, No Dizziness, No Focal Weakness, No Sensory Changes Psychological: No Symptoms Endocrine: No Symptoms Hematologic/Lymphatic: No Symptoms Immunological/Allergic: No Symptoms All Other Systems: Reviewed and Negative - Past Medical History Pertinent Past Medical History: Yes Neurological History: Migraines ENT History: No Pertinent History Cardiac History: Congestive Heart Failure, Coronary Artery Disease, High Cholesterol, Other Respiratory History: Asthma, Bronchitis, COPD, Pneumonia Endocrine Medical History: Hypothyroidism Musculoskeletal History: Arthritis, Osteoporosis GI Medical History: GERD, Hernia, Polyps History: No Pertinent History Psycho-Social History: Anxiety, Bipolar, Depression, Other Female Reproductive Disorders: Fibroids Other Medical History: 2 LEAKY VALVES. BORDERLINE PERSONALITY DISORDER, PTSD, manic depressive. Anemia - Past Surgical History Past Surgical History: Yes Neuro Surgical History: No Pertinent History Cardiac: Cardiac Catheterization Respiratory: No Pertinent History Gastrointestinal: Other Genitourinary: No Pertinent History Musculoskeletal: Other Female Surgical History: Section Other Surgical History: ARM SURGERY-- left wrist laceration from a glass door, 2 c-sections, EGD with dilitation, colonoscopy, heart cath x 2 Significant Family History: no pertinent family hx - Social History Smoking Status: Current every day smoker How long have you smoked: 40 years Exposure to second hand smoke: No Alcohol Use: Socially Drug Use: marijuana Patient Lives Alone: No - Nursing Vital Signs Nursing Vital Signs: Initial Vital Signs Temperature 98.8 F 06/23/23 19:02 Pulse Rate 114 H 06/23/23 19:02 Respiratory Rate 24 06/23/23 19:02 Blood Pressure 118/65 06/23/23 19:02 O2 Sat by Pulse Oximetry 97 06/23/23 19:02 Pain Scale Pain Intensity 0 - Physical Exam General Appearance: no apparent distress, alert Eye Exam: PERRL/EOMI Ears, Nose, Throat Exam: hearing grossly normal, normal ENT inspection, normal pharynx Neck Exam: normal inspection, supple Respiratory Exam: airway intact, diminished breath sounds, rhonchi, wheezing, No respiratory distress Cardiovascular/Chest Exam: normal heart sounds, regular rate/rhythm Abdominal/Gastrointestinal Exam: soft, No tenderness, No distention, No mass Extremity Exam: non-tender, normal range of motion, normal inspection, no calf tenderness, no pedal edema Neurologic Exam: alert, oriented x 3, cooperative, assembler unit II-XII nml as tested, sensation nml, No motor deficits Skin Exam: normal color, warm, No dry Lymphatic Exam: No adenopathy SpO2 Interpretation: normal SpO2: 97 O2 Delivery: Nasal Cannula (3 L nasal cannula) - Course Nursing assessment & vital signs reviewed: Yes EKG Interpreted by Me: RATE ([id number]), Sinus Tach, NORMAL AXIS, NORMAL INTERVALS, NORMAL QRS Ordered Tests: Active Orders 24 hr Category Date Time Status Assembler Equipment STAT Care 06/23/23 19:24 Active EKG-ER Only STAT Care 06/23/23 19:23 Active IV Insertion STAT Care 06/23/23 19:23 Active Pulse Oximetry (ED) STAT Care 06/23/23 19:23 Active CHEST WITH CONTRAST [CT] Stat Exams 06/23/23 22:14 Completed BLOOD CULTURE Stat Lab 06/23/23 20:00 Received CBC Q48H Lab 06/25/23 06:00 Ordered CBC Q48H Lab 06/27/23 06:00 Ordered CBC Q48H Lab 06/29/23 06:00 Ordered CBC Q48H Lab 07/01/23 06:00 Ordered CBC Q48H Lab 07/03/23 06:00 Ordered CBC Q48H Lab 07/05/23 06:00 Ordered CBC Q48H Lab 07/07/23 06:00 Ordered CBC Stat Lab 06/24/23 03:17 Completed CBC W DIFF Stat Lab 06/23/23 19:38 Completed D-DIMER QUANTITATIVE Stat Lab 06/23/23 19:38 Completed PROTIME WITH INR Stat Lab 06/24/23 03:17 Completed PTT Q4H Lab 06/24/23 07:15 Ordered PTT Q4H Lab 06/24/23 11:15 Ordered PTT Q4H Lab 06/24/23 15:15 Ordered PTT Q4H Lab 06/24/23 19:15 Ordered PTT Q4H Lab 06/24/23 23:15 Ordered PTT Q4H Lab 06/25/23 03:15 Ordered PTT Q4H Lab 06/25/23 07:15 Ordered PTT Q4H Lab 06/25/23 11:15 Ordered PTT Q4H Lab 06/25/23 15:15 Ordered PTT Q4H Lab 06/25/23 19:15 Ordered PTT Q4H Lab 06/25/23 23:15 Ordered PTT Stat Lab 06/24/23 03:17 Completed TROPONIN Q4H Lab 06/23/23 19:38 Completed TROPONIN Q4H Lab 06/23/23 23:30 Completed TROPONIN Q4H Lab 06/24/23 03:17 Received Respiratory Therapy Assessment ONCE RT 06/23/23 19:50 Active Transfer Order Routine Transfer 06/24/23 Ordered Medication Summary Generic Name Dose Route Start Last Admin Trade Name Yordan PRN Reason Stop Dose Admin Doxycycline Hyclate 100 mg/ 100 mls @ 100 mls/hr 06/23/23 22:00 06/23/23 20:03 Dextrose IV 07/23/23 21:59 100 mls/hr Q12HT VALERY Administration Heparin Sodium/Dextrose 25,000 units in 250 mls @ 8.604 mls/hr 06/24/23 03:30 06/24/23 04:13 Heparin 25,000 Units/D5w: Use Order Set Moises IV 07/24/23 03:29 12 units/kg/hr .Q24H VALERY 8.604 mls/hr Administration Protocol 12 UNITS/KG/HR Sodium Chloride 1,000 mls @ 125 mls/hr 06/24/23 04:30 06/24/23 04:23 Sodium Chloride 0.9% 1000 Ml IV 07/24/23 04:29 125 mls/hr .Q8H VALERY Administration Discontinued Medications Generic Name Dose Route Start Last Admin Trade Name Yordan PRN Reason Stop Dose Admin Al Hydrox/Mg Hydrox/Simethicone Confirm 06/23/23 20:21 Mag Hydrox/Al Hydrox/Simeth 30 Ml Udcup Administered 06/23/23 20:22 Dose 30 ml .ROUTE .STK-MED ONE Albuterol/Ipratropium 3 ml 06/23/23 19:23 06/23/23 19:35 Ipratropium/Albuterol Sulfate 3 Ml Ampul.Neb IH 06/23/23 19:24 3 ml STAT ONE Administration Albuterol/Ipratropium Confirm 06/23/23 19:34 Ipratropium/Albuterol Sulfate 3 Ml Ampul.Neb Administered 06/23/23 19:35 Dose 3 ml IH .STK-MED ONE Methylprednisolone Sodium 0 mg 06/23/23 19:23 06/23/23 19:31 Succinate 125 mg/ Sterile IV 06/23/23 19:24 125 mg Water 2 ml STAT ONE Administration Doxycycline Hyclate Confirm 06/23/23 19:54 Doxycycline Hyclate 100 Mg/Vial Injection Administered 06/23/23 19:55 Dose 100 mg IV .STK-MED ONE Heparin Sodium (Beef Lung) 4,300 unit 06/24/23 03:02 06/24/23 04:13 Heparin 5000 Units/0.5 Ml 5,000 Unit/0.5 Ml Syr 60 unit/kg (4300 unit) 06/24/23 03:03 4,300 unit IV Administration STAT STA Heparin Sodium (Beef Lung) Confirm 06/24/23 04:07 Heparin 5000 Units/0.5 Ml 5,000 Unit/0.5 Ml Syr Administered 06/24/23 04:08 Dose 5,000 unit .ROUTE .STK-MED ONE Dextrose Confirm 06/23/23 19:54 D5w 100ml Mini Bag 100 Ml Administered 06/23/23 19:55 Dose 100 mls @ ud IV .STK-MED ONE Sodium Chloride Confirm 06/24/23 04:18 Sodium Chloride 0.9% 1000 Ml Administered 06/24/23 04:19 Dose 1,000 mls @ ud .ROUTE .STK-MED ONE Lidocaine HCl Confirm 06/23/23 20:20 Lidocaine Hcl 2% Viscous 15 Ml Udcup Administered 06/23/23 20:21 Dose 15 ml .ROUTE .STK-MED ONE Magnesium Hydroxide 45 ml 06/23/23 19:59 06/23/23 20:21 Mag Hydrx/Alum Hyd/Simeth/Lido 45 Ml Bottle PO 06/23/23 20:00 45 ml STAT ONE Administration Methylprednisolone Sodium Succinate Confirm 06/23/23 19:29 Methylprednis Sod Succ 125 Mg/2 Ml Vial Administered 06/23/23 19:30 Dose 125 mg .ROUTE .STK-MED ONE Sterile Water Confirm 06/23/23 19:29 Water For Injection,Sterile 10 Ml Vial Administered 06/23/23 19:30 Dose 10 ml IJ .STK-MED ONE Lab/Rad Data: Laboratory Result Diagrams 06/24/23 03:17 06/23/23 19:23 Laboratory Results 06/24/23 06/24/23 06/23/23 Range/Units 03:17 03:17 23:30 WBC 6.1 (4.0-10.5) x10^3/uL RBC 3.12 L (4.1-5.4) x10^6/uL Hgb 6.5 L* (12.0-16.0) g/dL Hct 23.6 L (35-47) % MCV 75.6 L (78-100) fL MCH 20.8 L (26-32) pg MCHC 27.5 L (32-36) g/dL RDW 20.4 H (11.5-14.0) % Plt Count 711 H (150-450) x10^3/uL MPV 9.8 (7.5-11.0) fL Gran % (36.0-66.0) % Immature Gran % (Auto) (0.00-0.4) % Nucleat RBC Rel Count (0.00-0.1) % Eos # (Auto) (0-0.5) x10^3/uL Immature Gran # (Auto) (0.00-0.03) x10^3u/L Absolute Lymphs (auto) (1.0-4.6) x10^3/uL Absolute Monos (auto) (0.0-1.3) x10^3/uL Absolute Nucleated RBC (0.00-0.01) x10^3u/L Lymphocytes % (24.0-44.0) % Monocytes % (0.0-12.0) % Eosinophils % (0.00-5.0) % Basophils % (0.0-0.4) % Absolute Granulocytes (1.4-6.9) x10^3/uL Basophils # (0-0.4) x10^3/uL PT 10.9 (9.4-12.5) SECONDS INR 1.00 (0.8-3.0) APTT 25.8 (25.1-36.5) SECONDS D-Dimer (0.0-0.50) mg/L Sodium Direct (138-146) mmol/L Potassium (3.5-4.9) mmol/L Chloride (98-109) mmol/L Carbon Dioxide (24-29) mmol/L Venous BUN (8-26) mg/dL Creatinine (0.6-1.3) mg/dL Glucose (70-105) mg/dL Ionized Calcium (1.12-1.32) mmol/L Troponin I < 0.012 (0.000-0.033) ng/mL Influenza Type A Ag (NEGATIVE) Influenza Type B Ag (NEGATIVE) RSV (PCR) (NEGATIVE) SARS-CoV-2 (PCR) (NEGATIVE) Group A Strep Antibody (NEGATIVE) Slides for Path Review ABO Group Rh Factor Antibody Screen (NEGATIVE) Crossmatch (COMPATIBLE) 06/23/23 06/23/23 06/23/23 Range/Units 20:00 20:00 20:00 WBC (4.0-10.5) x10^3/uL RBC (4.1-5.4) x10^6/uL Hgb (12.0-16.0) g/dL Hct (35-47) % MCV (78-100) fL MCH (26-32) pg MCHC (32-36) g/dL RDW (11.5-14.0) % Plt Count (150-450) x10^3/uL MPV (7.5-11.0) fL Gran % (36.0-66.0) % Immature Gran % (Auto) (0.00-0.4) % Nucleat RBC Rel Count (0.00-0.1) % Eos # (Auto) (0-0.5) x10^3/uL Immature Gran # (Auto) (0.00-0.03) x10^3u/L Absolute Lymphs (auto) (1.0-4.6) x10^3/uL Absolute Monos (auto) (0.0-1.3) x10^3/uL Absolute Nucleated RBC (0.00-0.01) x10^3u/L Lymphocytes % (24.0-44.0) % Monocytes % (0.0-12.0) % Eosinophils % (0.00-5.0) % Basophils % (0.0-0.4) % Absolute Granulocytes (1.4-6.9) x10^3/uL Basophils # (0-0.4) x10^3/uL PT (9.4-12.5) SECONDS INR (0.8-3.0) APTT (25.1-36.5) SECONDS D-Dimer (0.0-0.50) mg/L Sodium Direct (138-146) mmol/L Potassium (3.5-4.9) mmol/L Chloride (98-109) mmol/L Carbon Dioxide (24-29) mmol/L Venous BUN (8-26) mg/dL Creatinine (0.6-1.3) mg/dL Glucose (70-105) mg/dL Ionized Calcium (1.12-1.32) mmol/L Troponin I (0.000-0.033) ng/mL Influenza Type A Ag (NEGATIVE) Influenza Type B Ag (NEGATIVE) RSV (PCR) (NEGATIVE) SARS-CoV-2 (PCR) (NEGATIVE) Group A Strep Antibody NOT DETECTED (NEGATIVE) Slides for Path Review ABO Group A Rh Factor POSITIVE Antibody Screen NEGATIVE (NEGATIVE) Crossmatch COMPATIBLE COMPATIBLE (COMPATIBLE) 06/23/23 06/23/23 06/23/23 Range/Units 20:00 19:38 19:38 WBC (4.0-10.5) x10^3/uL RBC (4.1-5.4) x10^6/uL Hgb (12.0-16.0) g/dL Hct (35-47) % MCV (78-100) fL MCH (26-32) pg MCHC (32-36) g/dL RDW (11.5-14.0) % Plt Count (150-450) x10^3/uL MPV (7.5-11.0) fL Gran % (36.0-66.0) % Immature Gran % (Auto) (0.00-0.4) % Nucleat RBC Rel Count (0.00-0.1) % Eos # (Auto) (0-0.5) x10^3/uL Immature Gran # (Auto) (0.00-0.03) x10^3u/L Absolute Lymphs (auto) (1.0-4.6) x10^3/uL Absolute Monos (auto) (0.0-1.3) x10^3/uL Absolute Nucleated RBC (0.00-0.01) x10^3u/L Lymphocytes % (24.0-44.0) % Monocytes % (0.0-12.0) % Eosinophils % (0.00-5.0) % Basophils % (0.0-0.4) % Absolute Granulocytes (1.4-6.9) x10^3/uL Basophils # (0-0.4) x10^3/uL PT (9.4-12.5) SECONDS INR (0.8-3.0) APTT (25.1-36.5) SECONDS D-Dimer 2.26 H* (0.0-0.50) mg/L Sodium Direct (138-146) mmol/L Potassium (3.5-4.9) mmol/L Chloride (98-109) mmol/L Carbon Dioxide (24-29) mmol/L Venous BUN (8-26) mg/dL Creatinine (0.6-1.3) mg/dL Glucose (70-105) mg/dL Ionized Calcium (1.12-1.32) mmol/L Troponin I < 0.012 (0.000-0.033) ng/mL Influenza Type A Ag NEGATIVE (NEGATIVE) Influenza Type B Ag NEGATIVE (NEGATIVE) RSV (PCR) NEGATIVE (NEGATIVE) SARS-CoV-2 (PCR) NEGATIVE (NEGATIVE) Group A Strep Antibody (NEGATIVE) Slides for Path Review ABO Group Rh Factor Antibody Screen (NEGATIVE) Crossmatch (COMPATIBLE) 06/23/23 06/23/23 Range/Units 19:38 19:23 WBC 11.1 H (4.0-10.5) x10^3/uL RBC 3.40 L (4.1-5.4) x10^6/uL Hgb 7.1 L (12.0-16.0) g/dL Hct 25.6 L (35-47) % MCV 75.3 L (78-100) fL MCH 20.9 L (26-32) pg MCHC 27.7 L (32-36) g/dL RDW 20.6 H (11.5-14.0) % Plt Count 794 H (150-450) x10^3/uL MPV 10.0 (7.5-11.0) fL Gran % 92.7 H (36.0-66.0) % Immature Gran % (Auto) 0.6 H (0.00-0.4) % Nucleat RBC Rel Count 0.0 (0.00-0.1) % Eos # (Auto) 0 (0-0.5) x10^3/uL Immature Gran # (Auto) 0.07 H (0.00-0.03) x10^3u/L Absolute Lymphs (auto) 0.63 L (1.0-4.6) x10^3/uL Absolute Monos (auto) 0.05 (0.0-1.3) x10^3/uL Absolute Nucleated RBC 0.00 (0.00-0.01) x10^3u/L Lymphocytes % 5.7 L (24.0-44.0) % Monocytes % 0.5 (0.0-12.0) % Eosinophils % 0.0 (0.00-5.0) % Basophils % 0.5 (0.0-0.4) % Absolute Granulocytes 10.27 H (1.4-6.9) x10^3/uL Basophils # 0.05 (0-0.4) x10^3/uL PT (9.4-12.5) SECONDS INR (0.8-3.0) APTT (25.1-36.5) SECONDS D-Dimer (0.0-0.50) mg/L Sodium Direct 139 (138-146) mmol/L Potassium 3.8 (3.5-4.9) mmol/L Chloride 100 (98-109) mmol/L Carbon Dioxide 28 (24-29) mmol/L Venous BUN 7 L (8-26) mg/dL Creatinine 0.7 (0.6-1.3) mg/dL Glucose 183 H (70-105) mg/dL Ionized Calcium 1.16 (1.12-1.32) mmol/L Troponin I (0.000-0.033) ng/mL Influenza Type A Ag (NEGATIVE) Influenza Type B Ag (NEGATIVE) RSV (PCR) (NEGATIVE) SARS-CoV-2 (PCR) (NEGATIVE) Group A Strep Antibody (NEGATIVE) Slides for Path Review YES ABO Group Rh Factor Antibody Screen (NEGATIVE) Crossmatch (COMPATIBLE) - Progress Progress: improved Air Movement: good Progress Note: Patient accepted by at 12:58 AM. 67-year-old female presents to emergency department for evaluation of of shortness of breath. Workup reveals a hemoglobin of 7.1. Type and screen completed. Patient will receive blood transfusion. Physical exam reveals coarse breath sounds diminished as well with wheezing at the bases. Patient treated for COPD exacerbation. Solu-Medrol administered. Albuterol nebulizer administered as well. Patient received doxycycline antibiotic as she is allergic to penicillin. D-dimer positive. CTA chest significant for PE. Patient will require further evaluation and treatment. Patient agrees to admission to [facility] for further evaluation and treatment. She voices no other complaints or concerns at this time. Portions of this note were created with voice recognition technology. There may be grammatical, spelling, punctuation or sound alike errors Complexity problem addressed is high, patient is profoundly anemic requiring blood transfusion which is a threat to bodily function Critical care time 6 hours and 5 minutes. Complexity of data reviewed and analyzed is high. Test ordered test reviewed results analyzed and correlated clinically with history and physical examin ation. Management discussed with hospitalist accepts admission to [facility] for further evaluation and treatment. Risk of complication and or risk of morbidity/mortality patient management is high. Patient requires hospitalization for further evaluation and treatment. Vital stable. Time spent to admit patient approximately 25 minutes. Plan of care established for shared decision making. No social determinants of health present impede follow-up. Portions of this note were created with voice recognition technology. There may be grammatical, spelling, punctuation or sound alike errors 06/24/23 00:59 Due to cavitary lesion observed on today's CT chest Dr. Lindsay feels patient be better served at a higher level of care. We contacted [facility] at a pproximately 1:30 AM. They declined transfer as patient is anemic at 7.1 with possible GI blood loss. Patient requires transfusion and anticoagulation. [facility] does not have GI available 06/24/23 01:[address] Cohn hospitalist at [facility] who accepts transfer at 2:53 AM. She feels that it would be appropriate to start heparin drip. Heparin drip ordered. Plan of care discussed with patient. She agrees to transfer to [facility] for further evaluation and treatment. Portions of this note were created with voice recognition technology. There may be grammatical, spelling, punctuation or sound alike errors 06/24/23 03:03 Blood Culture(s) Obtained: Yes Antibiotics given: Yes Discussed with Dr.: Lopez (Dr. Meera moreno admission at 12:58 AM) Counseled pt/family regarding: lab results, diagnosis, rad results - Departure Departure Disposition: Observation Clinical Impression: Symptomatic microcytic anemia, COPD exacerbation, Sore throat, Pulmonary embolus, Cavitary lesion of lung, Large sliding hiatal hernia Condition: Stable Critical Care Time: Yes Critical Care Time(excluding separately billable procedures): Critcal > 194 mins Referrals: WEN CAMERON MD [Primary Care Provider] - Follow up/PCP as directed Instructions: Chronic Obstructive Pulmonary Disease
[2023-06-23 19:43] LABS: Absolute Neutrophil Ct (ANC) 10.27 x10^3/uL (1.4-6.9); BASOPHIL % 0.5 % (0.0-0.4); Basophil (Absolute #) 0.05 x10^3/uL (0-0.4); Eosinophil (Absolute #) 0 x10^3/uL (0-0.5); Hematocrit 25.6 % (35-47); Hemoglobin 7.1 g/dL (12.0-16.0); IMMATURE GRAN # 0.07 x10^3u/L (0.00-0.03); IMMATURE GRAN % 0.6 % (0.00-0.4); Lymphocyte (Absolute #) 0.63 x10^3/uL (1.0-4.6); Lymphocytes % 5.7 % (24.0-44.0); Mean Cell Volume 75.3 fL (78-100); Mean Corpuscular Hemoglobin 20.9 pg (26-32); Mean Corpuscular Hgb Concent. 27.7 g/dL (32-36); Monocyte (Absolute #) 0.05 x10^3/uL (0.0-1.3); Monocytes % 0.5 % (0.0-12.0); Neutrophil % 92.7 % (36.0-66.0); Platelet Count 794 x10^3/uL (150-450); Red Cell Distribution Width 20.6 % (11.5-14.0); White Blood Count 11.1 x10^3/uL (4.0-10.5)
[2023-06-23] MEDS ORDERED: D5w 100ML Mini Bag 100 ML 100 ML IV ONE (19:54)
[2023-06-23] MEDS ORDERED: VIBRAMYCIN 100 MG IV ONE (19:54)
[2023-06-23] MEDS: VIBRAMYCIN 100 MG*** 100 MG in Dextrose 5%/Water IV Soln. 100ML PLUS BAG 100 ML IV SCH (20:03)
[2023-06-23 20:04] LABS: ISTAT K 3.8 mmol/L (3.5-4.9); ISTAT iCA 1.16 mmol/L (1.12-1.32)
[2023-06-23 20:05] LABS: ISTAT CREA 0.7 mg/dL (0.6-1.3)
[2023-06-23] MEDS ORDERED: XYLOCAINE VISCOUS 2% 15 ML CUP ONE (20:20)
[2023-06-23] MEDS: GI COCKTAIL 45 ML (Maalox/Lidocaine) PO ONE (20:21)
[2023-06-23] MEDS ORDERED: MAALOX ES 30 ML UNIT DOSE ONE (20:21)
[2023-06-23 20:54] LABS: INFLUENZA A NEGATIVE (NEGATIVE); INFLUENZA B NEGATIVE (NEGATIVE); RESPIRATORY SYNCTIAL VIRUS NEGATIVE (NEGATIVE); SARS-CoV-2 Xpert Express NEGATIVE (NEGATIVE)
[2023-06-23 21:32] LABS: ABO TYPING A; Antibody Screen NEGATIVE (NEGATIVE); RH TYPING POSITIVE
[2023-06-23 21:34] LABS: CROSS MATCH (PRBC) COMPATIBLE (COMPATIBLE)
[2023-06-23 21:37] LABS: CROSS MATCH (PRBC) COMPATIBLE (COMPATIBLE)
[2023-06-23 22:13] LABS: Slide Review 1 YES
--- NOTE | 2023-06-24 00:54 | XRAY ---
CLINICAL HISTORY: sob, + Dimer COMPARISON: 05/20/2023. TECHNIQUE: A CT pulmonary angiogram was performed using contrast with sagittal and coronal reformats. One of the following dose reduction techniques was utilized for this exam: Automated exposure control, adjustment of the mA and/or kV according to patient size, use of iterative reconstruction. FINDINGS: The main pulmonary trunk and right and left pulmonary arteries are normal. The lobar and segment branches of the right pulmonary artery cannot be evaluated due to contrast artifacts and insufficient contrast timing. There is a long segment-filling defect in the anterior segmental and subsegmental branches of the left upper lobe pulmonary artery, which is suggestive of pulmonary emboli. The other left pulmonary artery branches are normal. The aortic arch and visualized ascending aorta and descending aorta are normal. A 25 x 24 mm thick walled cavitatory lesion is seen in the medial aspect of the right apex with minimal perilesional consolidation and ground-glass haziness. New interval finding. Centrilobular emphysematous changes are seen in bilateral upper lobes. Minimal bilateral apical fibrosis noted. Few calcified right hilar nodes were noted, sequelae to the previous infection. No evidence of pleural/pericardial effusion. Heart size is normal. The thoracic spine shows degenerative changes. The scanned upper abdomen shows old calcified granulomas. Large sliding hiatus hernia noted. IMPRESSION: 1. Left upper lobe anterior segmental and subsegmental pulmonary artery emboli. 2. A 25 x 24 mm thick walled cavitatory lesion in the medial aspect of the right apex with minimal perilesional consolidation and ground-glass haziness. Primary consolidation is an infective etiology. ( New interval finding )Recommended interval follow-up. 3. COPD. 4. Large sliding hiatus hernia. 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 Electronically Signed by: Yehuda Roberts MD. (06/24/2023 00:49:42 EDT)
[2023-06-24 03:19] LABS: Hematocrit 23.6 % (35-47); Mean Cell Volume 75.6 fL (78-100); Mean Corpuscular Hemoglobin 20.8 pg (26-32); Mean Corpuscular Hgb Concent. 27.5 g/dL (32-36); Mean Platelet Volume 9.8 fL (7.5-11.0); Platelet Count 711 x10^3/uL (150-450); Red Blood Count 3.12 x10^6/uL (4.1-5.4); Red Cell Distribution Width 20.4 % (11.5-14.0); White Blood Count 6.1 x10^3/uL (4.0-10.5)
[2023-06-24 03:26] LABS: Hemoglobin 6.5 g/dL (12.0-16.0)
[2023-06-24 03:34] LABS: PROTIME 10.9 SECONDS (9.4-12.5); PTT 25.8 SECONDS (25.1-36.5)
[2023-06-24] MEDS ORDERED: HEPARIN 5000 UNITS/0.5 ML (HIGH RISK MED) ONE (04:07)
[2023-06-24] MEDS ORDERED: Heparin 25,000 units/D5W: USE ORDER SET PROTO 25,000 UNITS/250 ML BAG IV ONE (04:07)
[2023-06-24] MEDS: HEPARIN 5000 UNITS/0.5 ML (HIGH RISK MED) IV STA (04:13)
[2023-06-24] MEDS: Heparin 25,000 units/D5W: USE ORDER SET PROTO 25,000 UNITS/250 ML BAG IV SCH (04:13)
[2023-06-24] MEDS ORDERED: Sodium Chloride 0.9% 1000 ML 1,000 ML ONE (04:18)
[2023-06-24] MEDS: Sodium Chloride 0.9% 1000 ML 1,000 ML IV SCH (04:23)
[2023-06-24 05:08] VITALS: BP 140/81; PULSE 89; RESP 27; O2SAT 97
== END 2023-06-24 05:30 | disposition short-term general hospital (02) ==
LOC: ED 18:56
DX: J44.1 Chronic obstructive pulmonary disease with (acute) exacerbation (principal); R06.02 Shortness of breath; D64.9 Anemia, unspecified; I26.99 Other pulmonary embolism without acute cor pulmonale; J02.9 Acute pharyngitis, unspecified; R91.1 Solitary pulmonary nodule; K44.9 Diaphragmatic hernia without obstruction or gangrene; Z87.891 Personal history of nicotine dependence; Z99.81 Dependence on supplemental oxygen; Z79.899 Other long term (current) drug therapy
CPT/HCPCS: 0241U; 36000; 36415; 36430; 71260; 80047; 84484; 85025; 85027; 85379; 85610; 85730; 86850; 86900; 86901; 86922; 87040; 87651; 93005; 93041; 94640; 94760; 96374; 96375; 99285; 99291; 99292; P9016; J1644; J2919; A9270-GY

== ENCOUNTER 2023-11-10 23:50 | Observation (INO) | payer MEDICARE, OTHER ==
[2023-11-11] MEDS ORDERED: DUONEB 0.5-3 MG/3 ml Neb IH ONE (00:26)
[2023-11-11] MEDS: TORAdol 30 mg Injection IM ONE (00:30)
[2023-11-11] MEDS ORDERED: TORAdol 30 mg Injection ONE (00:31)
[2023-11-11] MEDS ORDERED: Zofran 4 MG/2 ML VIAL ONE (00:31)
--- NOTE | 2023-11-11 00:31 | ERPHSYRPT ---
- History of Present Illness Time Seen by Provider: 11/11/23 00:31 Historian: patient Exam Limitations: no limitations Patient Subjective Stated Complaint: difuse abd pain, nausea Triage Nursing Assessment: pt presents to ED via [facility], pt transferred self from ems cot to ER cot by self, pt alert and oriented x3, pt c/o diffuse abd pain and nausea since 1000 that has worsened in the last 2 hrs. pt states last BM was yesterday, pt states she has not been able to eat today, bowel sounds active in all quadrants, tender in all quadrants with palpation. Physician History: Patient is a 67-year-old female presents to our ED via EMS for progressive diffuse abdominal pain. Patient reports her pain started at 10 AM. Pain has gotten progressively worse especially over the past 2 hours. Pain is associated with nausea. Patient's last bowel movement was yesterday. Patient reports bowel movement to be normal. No blood observed. However patient has not been able to tolerate p.o. Patient has a history of advanced COPD and requires daily nebulizer treatment as well as 20 mg of prednisone twice daily. Patient did not have her daily albuterol or her prednisone. Patient is currently wheezing as a result of not being able to take medications as prescribed. No fever. No trauma. Symptoms are progressive. Symptoms are moderate to severe in intensity. Palpation reproduces pain. Patient is very nauseous. Patient otherwise voices no other complaints or concerns at this time. Portions of this note were created with voice recognition technology. There may be grammatical, spelling, punctuation or sound alike errors Timing/Duration: today Activities at Onset: none Quality: aching Abdominal Pain Onset Location: generalized abdomen Pain Radiation: no radiation Severity of Pain-Max: moderate Severity of Pain-Current: moderate Modifying Factors: Improves With: palpation Associated Symptoms: nausea, other (Patient is wheezing as a result of not taking her albuterol treatment or steroid), No shortness of breath Previous symptoms: no prior history Allergies/Adverse Reactions: morphine Allergy (Severe, Verified 11/10/23 23:55) Fainting oxycodone Allergy (Verified 11/10/23 23:55) Shortness of Breath Penicillins Allergy (Verified 11/10/23 23:55) oxymorphone Adverse Reaction (Severe, Verified 11/10/23 23:55) Fainting Coconut Adverse Reaction (Intermediate, Verified 11/10/23 23:55) Headache bupropion HCl [From Wellbutrin] Adverse Reaction (Mild, Verified 11/10/23 23:55) Hives Home Medications: Albuterol/Ipratropium Mdi [Combivent Inhaler] 1 puff IH QID 12/29/12 [History] Famotidine 20 mg [Pepcid 20 MG] 20 mg PO BID 12/29/12 [History] Fluticasone/Salmeterol Disc [Advair/Wixella 250-50 Diskus 14 Dose] 1 puff IH BID 12/29/12 [History] Sertraline HCl 100 mg [Zoloft 100 MG] 200 mg PO DAILY 12/17/13 [History] Isosorbide Mononitrate 30 mg [Imdur 30 MG] 30 mg PO DAILY 11/05/14 [History] Tizanidine HCl 4 mg [Zanaflex 4 MG] 4 mg PO TID 01/16/15 [History] Quetiapine Fumarate [Seroquel] 300 mg PO HS 10/17/15 [History] Nitroglycerin 0.4 mg Tablet [Nitrostat 0.4 MG Tablet] 0.4 mg SL UD PRN 11/15/15 [History] Theophylline Anhydrous [Theophylline ER] 300 mg PO DAILY 12/23/20 [History] Fluticasone Propionate [Flonase NASAL] 1 spray NS BID 03/15/21 [History] Omeprazole 40 mg PO DAILY 10/22/21 [History] Albuterol Sulfate Mdi [ALBUTEROL/Proair Hfa MDI] 2 puff IH QID 03/10/23 [History] Clonazepam [Klonopin] 2 mg PO BID 03/10/23 [History] Gabapentin 1,200 mg PO BREAKFAST 03/11/23 [History] Hx Tetanus, Diphtheria Vaccination/Date Given: Yes Hx Influenza Vaccination/Date Given: Yes Hx Pneumococcal Vaccination/Date Given: No Travel Risk - International Travel Have you traveled outside of the country in past 3 weeks: No - Emerging Infectious Disease Are you exhibiting symptoms associated with any current EIDs: Yes Symptoms: Abdominal Pain - Review of Systems Constitutional: No Symptoms, No Fever, No Chills Eyes: No Symptoms Ears, Nose, & Throat: No Symptoms Respiratory: No Symptoms, No Cough, No Dyspnea Cardiac: No Symptoms, No Chest Pain, No Edema, No Syncope Abdominal/Gastrointestinal: No Symptoms, No Abdominal Pain, No Nausea, No Vomiting, No Diarrhea Genitourinary Symptoms: No Symptoms, No Dysuria Musculoskeletal: No Symptoms, No Back Pain, No Neck Pain Skin: No Symptoms, No Rash Neurological: No Symptoms, No Dizziness, No Focal Weakness, No Sensory Changes Psychological: No Symptoms Endocrine: No Symptoms Hematologic/Lymphatic: No Symptoms Immunological/Allergic: No Symptoms All Other Systems: Reviewed and Negative - Past Medical History Pertinent Past Medical History: Yes Neurological History: Migraines ENT History: No Pertinent History Cardiac History: Congestive Heart Failure, Coronary Artery Disease, High Cholesterol, Other Respiratory History: Asthma, Bronchitis, COPD, Pneumonia Endocrine Medical History: Hypothyroidism Musculoskeletal History: Arthritis, Osteoporosis GI Medical History: GERD, Hernia, Polyps History: No Pertinent History Psycho-Social History: Anxiety, Bipolar, Depression, Other Female Reproductive Disorders: Fibroids Other Medical History: 2 LEAKY VALVES. BORDERLINE PERSONALITY DISORDER, PTSD, manic depressive. Anemia - Past Surgical History Past Surgical History: Yes Neuro Surgical History: No Pertinent History Cardiac: Cardiac Catheterization Respiratory: No Pertinent History Gastrointestinal: Other Genitourinary: No Pertinent History Musculoskeletal: Other Female Surgical History: Section Other Surgical History: ARM SURGERY-- left wrist laceration from a glass door, 2 c-sections, EGD with dilitation, colonoscopy, heart cath x 2 Significant Family History: no pertinent family hx - Social History Smoking Status: Current every day smoker How long have you smoked: 40 years Exposure to second hand smoke: Yes Alcohol Use: Socially Drug Use: none Patient Lives Alone: No - Social Determinants of Health Will the patient participate in the screening: Declined to provide - Nursing Vital Signs Nursing Vital Signs: Initial Vital Signs Temperature 97.3 F 11/10/23 23:55 Pulse Rate 89 11/10/23 23:55 Respiratory Rate 18 11/10/23 23:55 Blood Pressure 123/72 11/10/23 23:55 O2 Sat by Pulse Oximetry 100 11/10/23 23:55 Pain Scale Pain Intensity 4 - Physical Exam General Appearance: no apparent distress, alert, other (Pale appearing skin) Eye Exam: PERRL/EOMI, eyes nml inspection Ears, Nose, Throat Exam: normal ENT inspection, pharynx normal, moist mucous membranes Neck Exam: normal inspection, non-tender, supple, full range of motion Respiratory Exam: airway intact, wheezing, other (Mild tachypnea with wheezing), No respiratory distress Cardiovascular Exam: regular rate/rhythm, normal heart sounds Gastrointestinal/Abdomen Exam: soft, No tenderness, No mass Back Exam: normal inspection, normal range of motion, No CVA tenderness, No vertebral tenderness Extremity Exam: normal inspection, normal range of motion, pelvis stable Neurologic Exam: alert, oriented x 3, cooperative, sensation nml, No motor deficits Skin Exam: normal color, warm, dry Lymphatic Exam: No adenopathy SpO2 Interpretation: normal SpO2: 100 O2 Delivery: Room Air - Course Nursing assessment & vital signs reviewed: Yes EKG Interpreted by Me: RATE, Sinus Rhythm, NORMAL AXIS, NORMAL INTERVALS, NORMAL QRS Ordered Tests: Active Orders 24 hr Category Date Time Status Manager [facility] STAT Care 11/11/23 00:23 Active EKG-ER Only STAT Care 11/11/23 00:22 Active IV Insertion STAT Care 11/11/23 00:22 Active Oxygen-ED Only Nasal Cannula 3 lpm Care 11/11/23 00:35 Active Pulse Oximetry (ED) STAT Care 11/11/23 00:22 Active ABDOMEN AND PELVIS W/0 CONTRAS [CT] Stat Exams 11/11/23 00:25 Completed CBC W DIFF Stat Lab 11/11/23 00:43 Completed CMP Stat Lab 11/11/23 00:43 Completed LIPASE Stat Lab 11/11/23 00:43 Completed Respiratory Therapy Assessment DAILY RT 11/11/23 00:37 Active Transfer Order Routine Transfer 11/11/23 Ordered Medication Summary Generic Name Dose Route Start Last Admin Trade Name Freq PRN Reason Stop Dose Admin Sodium Chloride 1,000 mls @ 100 mls/hr 11/11/23 00:30 11/11/23 00:35 Sodium Chloride 0.9% 1000 Ml IV 12/11/23 00:29 100 mls/hr .Q10H VALERY Administration Prednisone 20 mg 11/11/23 10:00 11/11/23 00:35 Prednisone 20 Mg Tablet PO 12/11/23 09:59 20 mg DAILY VALERY Administration Discontinued Medications Generic Name Dose Route Start Last Admin Trade Name Freq PRN Reason Stop Dose Admin Albuterol/Ipratropium 3 ml 11/11/23 00:22 11/11/23 00:33 Ipratropium/Albuterol Sulfate 3 Ml Ampul.Neb IH 11/11/23 00:23 3 ml STAT ONE Administration Albuterol/Ipratropium Confirm 11/11/23 00:26 Ipratropium/Albuterol Sulfate 3 Ml Ampul.Neb Administered 11/11/23 00:27 Dose 3 ml IH .STK-MED ONE Ketorolac Tromethamine 30 mg 11/11/23 00:26 11/11/23 00:30 Ketorolac Tromethamine 30 Mg/Ml Inj IM 11/11/23 00:27 Not Given STAT ONE Ketorolac Tromethamine 30 mg 11/11/23 00:28 11/11/23 00:35 Ketorolac Tromethamine 30 Mg/Ml Inj IV 11/11/23 00:29 30 mg STAT ONE Administration Ketorolac Tromethamine Confirm 11/11/23 00:31 Ketorolac Tromethamine 30 Mg/Ml Inj Administered 11/11/23 00:32 Dose 30 mg .ROUTE .STK-MED ONE Ondansetron HCl 4 mg 11/11/23 00:27 11/11/23 00:35 Ondansetron Hcl 4 Mg/2 Ml Vial IV 11/11/23 00:28 4 mg STAT ONE Administration Ondansetron HCl Confirm 11/11/23 00:31 Ondansetron Hcl 4 Mg/2 Ml Vial Administered 11/11/23 00:32 Dose 4 mg .ROUTE .STK-MED ONE Lab/Rad Data: Laboratory Result Diagrams 11/11/23 00:43 11/11/23 00:43 Laboratory Results 11/11/23 11/11/23 11/11/23 Range/Units 00:43 00:43 00:43 WBC (3.98-10.04) x10^3/uL RBC (3.93-5.22) x10^6/uL Hgb (11.2-15.7) g/dL Hct (34.1-44.9) % MCV (79.4-94.8) fL MCH (25.6-32.2) pg MCHC (32.2-35.5) g/dL RDW (11.7-14.4) % Plt Count (182-369) x10^3/uL MPV (9.4-12.3) fL Gran % (34.0-71.1) % Immature Gran % (Auto) (0.001-0.429) % Nucleat RBC Rel Count (0.00-0.2) % Eos # (Auto) (0.04-0.36) x10^3/uL Immature Gran # (Auto) (0.001-0.031) x10^3u/L Absolute Lymphs (auto) (1.18-3.74) x10^3/uL Absolute Monos (auto) (0.24-0.86) x10^3/uL Absolute Nucleated RBC (0.00-0.012) x10^3u/L Lymphocytes % (19.3-51.7) % Monocytes % (4.7-12.5) % Eosinophils % (0.7-5.8) % Basophils % (0.1-1.2) % Absolute Granulocytes (1.56-6.13) x10^3/uL Basophils # (0.01-0.08) x10^3/uL Sodium 141 (135-145) mmol/L Potassium 3.5 (3.5-5.1) mmol/L Chloride 109 H (98-107) mmol/L Carbon Dioxide 24 (22-30) mmol/L Anion Gap 11.3 (5-15) MEQ/L BUN 7 (7-17) mg/dL Creatinine 0.89 (0.52-1.04) mg/dL Estimated GFR 71.9 ML/MIN Glucose 103 (74-106) mg/dL Calcium 8.7 (8.4-10.2) mg/dL Total Bilirubin 0.20 (0.2-1.3) mg/dL AST 23 (14-36) U/L ALT 15 (0-35) U/L Alkaline Phosphatase 80 (38-126) U/L Serum Total Protein 6.6 (6.3-8.2) g/dL Albumin 3.8 (3.5-5.0) g/dL Lipase 64 (23-300) U/L Influenza Type A Ag NEGATIVE (NEGATIVE) Influenza Type B Ag NEGATIVE (NEGATIVE) RSV (PCR) NEGATIVE (NEGATIVE) SARS-CoV-2 (PCR) NEGATIVE (NEGATIVE) 11/11/23 Range/Units 00:43 WBC 4.2 (3.98-10.04) x10^3/uL RBC 2.86 L (3.93-5.22) x10^6/uL Hgb 6.1 L* (11.2-15.7) g/dL Hct 22.0 L (34.1-44.9) % MCV 76.9 L (79.4-94.8) fL MCH 21.3 L (25.6-32.2) pg MCHC 27.7 L (32.2-35.5) g/dL RDW 19.1 H (11.7-14.4) % Plt Count 499 H (182-369) x10^3/uL MPV 10.2 (9.4-12.3) fL Gran % 49.8 (34.0-71.1) % Immature Gran % (Auto) 0.2 (0.001-0.429) % Nucleat RBC Rel Count 0.0 (0.00-0.2) % Eos # (Auto) 0.11 (0.04-0.36) x10^3/uL Immature Gran # (Auto) 0.01 (0.001-0.031) x10^3u/L Absolute Lymphs (auto) 1.29 (1.18-3.74) x10^3/uL Absolute Monos (auto) 0.66 (0.24-0.86) x10^3/uL Absolute Nucleated RBC 0.00 (0.00-0.012) x10^3u/L Lymphocytes % 30.6 (19.3-51.7) % Monocytes % 15.6 H (4.7-12.5) % Eosinophils % 2.6 (0.7-5.8) % Basophils % 1.2 (0.1-1.2) % Absolute Granulocytes 2.10 (1.56-6.13) x10^3/uL Basophils # 0.05 (0.01-0.08) x10^3/uL Sodium (135-145) mmol/L Potassium (3.5-5.1) mmol/L Chloride (98-107) mmol/L Carbon Dioxide (22-30) mmol/L Anion Gap (5-15) MEQ/L BUN (7-17) mg/dL Creatinine (0.52-1.04) mg/dL Estimated GFR ML/MIN Glucose (74-106) mg/dL Calcium (8.4-10.2) mg/dL Total Bilirubin (0.2-1.3) mg/dL AST (14-36) U/L ALT (0-35) U/L Alkaline Phosphatase (38-126) U/L Serum Total Protein (6.3-8.2) g/dL Albumin (3.5-5.0) g/dL Lipase (23-300) U/L Influenza Type A Ag (NEGATIVE) Influenza Type B Ag (NEGATIVE) RSV (PCR) (NEGATIVE) SARS-CoV-2 (PCR) (NEGATIVE) - Progress Progress: improved Progress Note: Patient is a 67-year-old female presents to our ED via EMS for evaluation of generalized abdominal pain. Physical exam patient had diffuse abdominal tenderness. Patient's skin was pale. Patient was wheezing. Patient advised that she requires daily prednisone and albuterol treatments which she has not had because of her abdominal pain. Patient received her prednisone and received albuterol nebulizer treatment. Wheezing significantly improved. Patient denies shortness of breath. Workup reveals a hemoglobin of 6.1. Patient advised that she has a history of symptomatic anemia requiring transfusions. Patient reports her last transfusion was in April 2023. Patient received p ain medication. Abdominal pain resolved. Patient now hungry and requesting food. No contraindication to eating a meal. Patient fed a sandwich, 7-Up and potato chips per her request. Type and screen completed. Blood products ordered. Patient will be admitted for transfusion. Case discussed with hospitalist Dr. Huerta accepts admission at 2:41 AM. Plan of care discussed with patient. She agrees to admission to [facility] for further evaluation and treatment. Portions of this note were created with voice recognition technology. There may be grammatical, spelling, punctuation or sound alike errors Complexity problem addressed is moderate acute complicated. No critical care time. Complex of data reviewed and analyzed is extensive. Test ordered chest reviewed results analyzed and correlated clinically with history and physical exam. Risk of complication and or risk of morbidity/mortality of patient management is high. Patient requires hospitalization for further evaluation and treatment. Vital stable time spent to admit patient approximately 15 minutes. Plan of care established for shared decision making. No social determinants of health present to impede follow-up. Portions of this note were created with voice recognition technology. There may be grammatical, spelling, punctuation or sound alike errors Counseled pt/family regarding: lab results, diagnosis, rad results - Departure Departure Disposition: Observation Clinical Impression: Wheezing, Noncompliance with medication regimen, Nausea, Diffuse abdominal pain, Type III hiatal hernia, Lumbar spine spondylosis Condition: Stable Critical Care Time: No Referrals: WEN CAMERON MD [Primary Care Provider] - Follow up/PCP as directed
[2023-11-11] MEDS: DUONEB 0.5-3 MG/3 ml Neb IH ONE (00:33)
[2023-11-11] MEDS: DELTASONE 20 MG PO SCH ×2 (00:35→09:42)
[2023-11-11] MEDS: TORAdol 30 mg Injection IV ONE (00:35)
[2023-11-11] MEDS: Zofran 4 MG/2 ML VIAL IV ONE (00:35)
[2023-11-11] MEDS: Sodium Chloride 0.9% 1000 ML 1,000 ML IV SCH ×2 (00:35→04:29)
[2023-11-11 00:48] LABS: BASOPHIL % 1.2 % (0.1-1.2); Basophil (Absolute #) 0.05 x10^3/uL (0.01-0.08); Eosinophil % 2.6 % (0.7-5.8); Eosinophil (Absolute #) 0.11 x10^3/uL (0.04-0.36); IMMATURE GRAN # 0.01 x10^3u/L (0.001-0.031); IMMATURE GRAN % 0.2 % (0.001-0.429); Lymphocyte (Absolute #) 1.29 x10^3/uL (1.18-3.74); Lymphocytes % 30.6 % (19.3-51.7); Mean Cell Volume 76.9 fL (79.4-94.8); Mean Corpuscular Hemoglobin 21.3 pg (25.6-32.2); Mean Corpuscular Hgb Concent. 27.7 g/dL (32.2-35.5); Mean Platelet Volume 10.2 fL (9.4-12.3); Monocyte (Absolute #) 0.66 x10^3/uL (0.24-0.86); Monocytes % 15.6 % (4.7-12.5); Neutrophil % 49.8 % (34.0-71.1); Platelet Count 499 x10^3/uL (182-369); Red Blood Count 2.86 x10^6/uL (3.93-5.22); Red Cell Distribution Width 19.1 % (11.7-14.4); White Blood Count 4.2 x10^3/uL (3.98-10.04)
[2023-11-11 00:53] LABS: Hemoglobin 6.1 g/dL (11.2-15.7)
[2023-11-11 00:59] LABS: ALBUMIN 3.8 g/dL (3.5-5.0); ANION GAP 11.3 MEQ/L (5-15); BILIRUBIN,TOTAL 0.2 mg/dL (0.2-1.3); Calcium 8.7 mg/dL (8.4-10.2); Creatinine 1 0.89 mg/dL (0.52-1.04); EST GLOMERULAR FILTRATION RATE 71.9 ML/MIN; Potassium 3.5 mmol/L (3.5-5.1); Total Protein 6.6 g/dL (6.3-8.2)
[2023-11-11 01:29] LABS: INFLUENZA A NEGATIVE (NEGATIVE); INFLUENZA B NEGATIVE (NEGATIVE); RESPIRATORY SYNCTIAL VIRUS NEGATIVE (NEGATIVE); SARS-CoV-2 Xpert Express NEGATIVE (NEGATIVE)
--- NOTE | 2023-11-11 02:21 | XRAY ---
CLINICAL HISTORY: pain COMPARISON: No prior studies available for comparison. TECHNIQUE: Non-contrast CT of the abdomen and pelvis was performed, with the following protocol: axial images, and reconstructed coronal and sagittal images. No intravenous contrast was administered. One of the following dose reduction techniques was utilized for this exam: Automated exposure control, adjustment of the mA and/or kV according to patient size, and use of iterative reconstruction. FINDINGS: Abdomen: Liver: Normal in size, shape, and density. No focal lesions, cysts, or masses were identified. Gallbladder and Biliary System: The gallbladder is normal in size and shape. No wall thickening, pericholecystic fluid, or gallstones were identified. Pancreas: Pancreatic head, body, and tail are visualized and appear normal in size and density. No pancreatic masses or calcifications were noted. Spleen: Normal in size, shape, and density. Few small focal calcifications in the parenchyma, likely healed granulomas. Kidneys and Adrenal Glands: Both kidneys are normal in size, shape, and position. Cortical thickness is within normal limits. No renal calculi or hydronephrosis. Adrenal glands are unremarkable. Appendix: The appendix is normal in size without darlin appendiceal fat stranding, and without an appendicolith. No evidence of appendiceal abscess or perforation. Pelvis: Uterus is unremarkable. No adnexal masses. Bladder: Normal in contour and wall thickness. No intraluminal lesions. Peritoneal and Retroperitoneal Structures: No free fluid or abnormal fluid collections were identified within the abdomen or pelvis. No lymphadenopathy was noted. Atherosclerotic intimal calcification of abdominal aorta and bilateral common iliac arteries. Bowel: Type 3 hiatus hernia noted. The visualized bowel loops are normal in caliber and appearance. No evidence of bowel obstruction or wall thickening. Bones and Soft Tissues: Spondylodegenerative changes of lumbar spine at L2-L3, L3-L4, L4-L5 and L5-S1 with narrowing of neural foramen. Pelvic bones and soft tissues are unremarkable. No fractures or abnormal masses were identified. Mild elevated left hemidiaphragm. IMPRESSION: 1. Type 3 hiatus hernia. 2. Few small focal calcifications in the spleen parenchyma, likely healed granulomas. 3. Mild elevated left hemidiaphragm. 4. Atherosclerotic intimal calcification of abdominal aorta and bilateral common iliac arteries. 5. Spondylodegenerative changes of lumbar spine at L2-L3, L3-L4, L4-L5 and L5-S1 with narrowing of neural foramen. 6. Clinical correlation is recommended. [facility] ER was called at [phone] at 1:09 AM AGENCY OPERATOR , 11/11/2023 and results were verbally communicated with Walter Sheth. Electronically Signed by: Yehuda Roberts MD. (11/11/2023 02:16:49 EDT)
[2023-11-11] MEDS ORDERED: Nitrostat 0.4 MG Tablet SL PRN (03:13)
[2023-11-11] MEDS ORDERED: Zofran 4 MG/2 ML VIAL IV PRN (03:15)
[2023-11-11] MEDS ORDERED: Docusate Sodium 100 MG PO PRN (03:15)
[2023-11-11 03:47] LABS: ABO TYPING A; Antibody Screen NEGATIVE (NEGATIVE); RH TYPING POSITIVE
[2023-11-11 03:51] LABS: CROSS MATCH (PRBC) COMPATIBLE (COMPATIBLE)
[2023-11-11 03:53] LABS: CROSS MATCH (PRBC) COMPATIBLE (COMPATIBLE)
--- NOTE | 2023-11-11 03:58 | PCM.HP ---
History of Present Illness - Chief Complaint Chief Complaint: Abdominal pain, symptomatic anemia Date: 11/11/23 History of Present Illness: is a 67 year old female with a history of COPD and a long standing history of anemia (requiring intermittent transfusions and with negative bone marrow biopsy by Dr. Salcido and negative endoscopy) who presents to the hospital with progressive diffuse abdominal pain. The patient reported that her pain started at 10 AM on 11/10/23 and progressively worsened, especially over the 2 hours prior to presentation. Pain was associated with nausea but no emesis. Patient's last bowel movement was on 11/09/23 and was normal without blood. However patient has not been able to tolerate p.o. Patient has a history of advanced COPD and requires daily nebulizer treatment as well as 20 mg of prednisone twice daily. Patient did not have her daily albuterol or her prednisone due to her gastrointestinal symptoms. In the ED, the patient was noted to be wheezing as a result of not being able to take medications as prescribed. She denied fever or trauma. In the ED she was also noted to be anemic with significant pallor. - Review of Systems Constitutional: Fatigue, Malaise Eyes: No Symptoms Ears, Nose, & Throat: No Symptoms Respiratory: Short Of Breath, Wheezing Cardiac: No Symptoms Abdominal/Gastrointestinal: Abdominal Pain, Nausea Genitourinary Symptoms: No Symptoms Musculoskeletal: No Symptoms Skin: No Symptoms Neurological: No Symptoms Psychological: No Symptoms Endocrine: No Symptoms Hematologic/Lymphatic: Anemia Immunological/Allergic: No Symptoms All Other Systems: Reviewed and Negative Medications & Allergies Home Medications: Home Medication List Albuterol/Ipratropium Mdi [Combivent Inhaler] 1 puff IH QID 12/29/12 [History Confirmed 11/11/23] Famotidine 20 mg [Pepcid 20 MG] 20 mg PO BID 12/29/12 [History Confirmed 11/11/23] Fluticasone/Salmeterol Disc [Advair/Wixella 250-50 Diskus 14 Dose] 1 puff IH BID 12/29/12 [History Confirmed 11/11/23] Sertraline HCl 100 mg [Zoloft 100 MG] 200 mg PO DAILY 12/17/13 [History Confirmed 11/11/23] Isosorbide Mononitrate 30 mg [Imdur 30 MG] 30 mg PO DAILY 11/05/14 [History Confirmed 11/11/23] Tizanidine HCl 4 mg [Zanaflex 4 MG] 4 mg PO TID 01/16/15 [History Confirmed 11/11/23] Quetiapine Fumarate [Seroquel] 300 mg PO HS 10/17/15 [History Confirmed 11/11/23] Nitroglycerin 0.4 mg Tablet [Nitrostat 0.4 MG Tablet] 0.4 mg SL UD PRN 11/15/15 [History Confirmed 11/11/23] Theophylline Anhydrous [Theophylline ER] 300 mg PO DAILY 12/23/20 [History Confirmed 11/11/23] Fluticasone Propionate [Flonase NASAL] 1 spray NS BID 03/15/21 [History Confirmed 11/11/23] Levothyroxine Sodium 25 Mcg [Synthroid 25 Mcg] 25 mcg PO DAILY tablet 03/17/21 [Rx Confirmed 11/11/23] Omeprazole 40 mg PO DAILY 10/22/21 [History Confirmed 11/11/23] Albuterol Sulfate Mdi [ALBUTEROL/Proair Hfa MDI] 2 puff IH QID 03/10/23 [History Confirmed 11/11/23] Clonazepam [Klonopin] 2 mg PO BID 03/10/23 [History Confirmed 11/11/23] Gabapentin 1,200 mg PO BREAKFAST 03/11/23 [History Confirmed 11/11/23] Gabapentin [Neurontin ] 2,400 mg PO HS cap 03/12/23 [Rx Confirmed 11/11/23] Prednisone 20 mg [Deltasone 20 mg] 20 mg PO BID 5 Days #10 tablet 05/21/23 [Rx Confirmed 11/11/23] Allergies/Adverse Reactions: Allergies Allergy/AdvReac Type Severity Reaction Status Date / Time morphine Allergy Severe Fainting Verified 11/10/23 23:55 oxycodone Allergy Shortness Verified 11/10/23 23:55 of Breath Penicillins Allergy Verified 11/10/23 23:55 oxymorphone AdvReac Severe Fainting Verified 11/10/23 23:55 Coconut AdvReac Intermediate Headache Verified 11/10/23 23:55 bupropion HCl AdvReac Mild Hives Verified 11/10/23 23:55 [From Wellbutrin] - Past Medical History Past Medical History: Yes Neurological History: Migraines ENT History: No Pertinent History Cardiac History: Congestive Heart Failure, Coronary Artery Disease, High Cholesterol, Other Respiratory History: Asthma, Bronchitis, COPD, Pneumonia, Pulmonary Embolism Endocrine Medical History: Hypothyroidism Musculoskelatal History: Arthritis, Osteoporosis GI Medical History: GERD, Hernia, Polyps History: No Pertinent History Pyscho-Social History: Anxiety, Bipolar, Depression, Other Reproductive Disorders: Fibroids Comment: 2 LEAKY VALVES. BORDERLINE PERSONALITY DISORDER, PTSD, manic depressive. Anemia - Past Surgical History Past Surgical History: Yes Neuro Surgical History: No Pertinent History Cardiac History: Cardiac Catheterization Respiratory Surgery: No Pertinent History GI Surgical History: Other Genitourinary Surgical Hx: No Pertinent History Musculskeletal Surgical Hx: Other Female Surgical History: Section Other Surgical History: ARM SURGERY-- left wrist laceration from a glass door, 2 c-sections, EGD with dilitation, colonoscopy, heart cath x 2 Significant Family History: no pertinent family hx - Social History Smoking Status: Current every day smoker How long have you smoked: 40 years Exposure to second hand smoke: Yes Alcohol: None Drug Use: none - Social Determinants of Health Will the patient participate in the screening: Declined to provide Do you worry about a steady place to live?: Yes In the past 12 months,have you had to go without utilities?: No Have you or anyone in your house had to go without enough: No Transportation Issues: No Has anyone in your support network made you feel unsafe?: No Does the patient want assistance with any of the above?: No - Physical Exam Vital Signs: Vital Signs - 24 hr Temp Pulse Resp BP BP Pulse Ox 11/11/23 02:57 100 11/11/23 02:00 82 29 H 113/44 100 11/11/23 01:32 81 28 H 108/66 100 11/11/23 00:33 88 18 100 11/11/23 00:30 84 27 H 117/67 100 11/11/23 00:25 100 11/11/23 00:00 85 33 H 122/65 100 11/10/23 23:55 97.3 F 89 18 123/72 100 General Appearance: no apparent distress, alert Neurologic Exam: alert, oriented x 3, cooperative, patient admitting clerk II-XII nml as tested, normal mood/affect, nml cerebellar function Eye Exam: PERRL/EOMI, eyes nml inspection Ears, Nose, Throat Exam: normal ENT inspection Neck Exam: normal inspection, non-tender, supple, full range of motion Respiratory Exam: diminished breath sounds, wheezing Cardiovascular Exam: regular rate/rhythm, normal heart sounds Gastrointestinal/Abdomen Exam: soft, normal bowel sounds Back Exam: normal range of motion Extremity Exam: normal inspection, normal range of motion Skin Exam: pale Results - Labs Lab/Micro Results: Lab Results-Last 24 Hours 11/11/23 11/11/23 11/11/23 Range/Units 00:43 00:43 00:43 WBC 4.2 (3.98-10.04) x10^3/uL RBC 2.86 L (3.93-5.22) x10^6/uL Hgb 6.1 L* (11.2-15.7) g/dL Hct 22.0 L (34.1-44.9) % MCV 76.9 L (79.4-94.8) fL MCH 21.3 L (25.6-32.2) pg MCHC 27.7 L (32.2-35.5) g/dL RDW 19.1 H (11.7-14.4) % Plt Count 499 H (182-369) x10^3/uL MPV 10.2 (9.4-12.3) fL Gran % 49.8 (34.0-71.1) % Immature Gran % (Auto) 0.2 (0.001-0.429) % Nucleat RBC Rel Count 0.0 (0.00-0.2) % Eos # (Auto) 0.11 (0.04-0.36) x10^3/uL Immature Gran # (Auto) 0.01 (0.001-0.031) x10^3u/L Absolute Lymphs (auto) 1.29 (1.18-3.74) x10^3/uL Absolute Monos (auto) 0.66 (0.24-0.86) x10^3/uL Absolute Nucleated RBC 0.00 (0.00-0.012) x10^3u/L Lymphocytes % 30.6 (19.3-51.7) % Monocytes % 15.6 H (4.7-12.5) % Eosinophils % 2.6 (0.7-5.8) % Basophils % 1.2 (0.1-1.2) % Absolute Granulocytes 2.10 (1.56-6.13) x10^3/uL Basophils # 0.05 (0.01-0.08) x10^3/uL Sodium 141 (135-145) mmol/L Potassium 3.5 (3.5-5.1) mmol/L Chloride 109 H (98-107) mmol/L Carbon Dioxide 24 (22-30) mmol/L Anion Gap 11.3 (5-15) MEQ/L BUN 7 (7-17) mg/dL Creatinine 0.89 (0.52-1.04) mg/dL Estimated GFR 71.9 ML/MIN Glucose 103 (74-106) mg/dL Calcium 8.7 (8.4-10.2) mg/dL Total Bilirubin 0.20 (0.2-1.3) mg/dL AST 23 (14-36) U/L ALT 15 (0-35) U/L Alkaline Phosphatase 80 (38-126) U/L Serum Total Protein 6.6 (6.3-8.2) g/dL Albumin 3.8 (3.5-5.0) g/dL Lipase (23-300) U/L Influenza Type A Ag NEGATIVE (NEGATIVE) Influenza Type B Ag NEGATIVE (NEGATIVE) RSV (PCR) NEGATIVE (NEGATIVE) SARS-CoV-2 (PCR) NEGATIVE (NEGATIVE) ABO Group Rh Factor Antibody Screen (NEGATIVE) Crossmatch (COMPATIBLE) 11/11/23 11/11/23 Range/Units 00:43 01:30 WBC (3.98-10.04) x10^3/uL RBC (3.93-5.22) x10^6/uL Hgb (11.2-15.7) g/dL Hct (34.1-44.9) % MCV (79.4-94.8) fL MCH (25.6-32.2) pg MCHC (32.2-35.5) g/dL RDW (11.7-14.4) % Plt Count (182-369) x10^3/uL MPV (9.4-12.3) fL Gran % (34.0-71.1) % Immature Gran % (Auto) (0.001-0.429) % Nucleat RBC Rel Count (0.00-0.2) % Eos # (Auto) (0.04-0.36) x10^3/uL Immature Gran # (Auto) (0.001-0.031) x10^3u/L Absolute Lymphs (auto) (1.18-3.74) x10^3/uL Absolute Monos (auto) (0.24-0.86) x10^3/uL Absolute Nucleated RBC (0.00-0.012) x10^3u/L Lymphocytes % (19.3-51.7) % Monocytes % (4.7-12.5) % Eosinophils % (0.7-5.8) % Basophils % (0.1-1.2) % Absolute Granulocytes (1.56-6.13) x10^3/uL Basophils # (0.01-0.08) x10^3/uL Sodium (135-145) mmol/L Potassium (3.5-5.1) mmol/L Chloride (98-107) mmol/L Carbon Dioxide (22-30) mmol/L Anion Gap (5-15) MEQ/L BUN (7-17) mg/dL Creatinine (0.52-1.04) mg/dL Estimated GFR ML/MIN Glucose (74-106) mg/dL Calcium (8.4-10.2) mg/dL Total Bilirubin (0.2-1.3) mg/dL AST (14-36) U/L ALT (0-35) U/L Alkaline Phosphatase (38-126) U/L Serum Total Protein (6.3-8.2) g/dL Albumin (3.5-5.0) g/dL Lipase 64 (23-300) U/L Influenza Type A Ag (NEGATIVE) Influenza Type B Ag (NEGATIVE) RSV (PCR) (NEGATIVE) SARS-CoV-2 (PCR) (NEGATIVE) ABO Group A Rh Factor POSITIVE Antibody Screen NEGATIVE (NEGATIVE) Crossmatch COMPATIBLE (COMPATIBLE) - Radiology Impressions Radiology Exams & Impressions: Radiology Procedures Category Date Time Status ABDOMEN AND PELVIS W/0 CONTRAS [CT] Stat Exams 11/11/23 00:25 Completed - Other Procedures and Tests Respiratory Therapy 11/11/23 00:37 Respiratory Therapy Assessment DAILY 11/11/23 03:50 Oxygen Nasal Cannula 3 lpm 11/11/23 03:51 Respiratory MDI BID Assessment/Plan (1) Normocytic anemia Current Visit: No Status: Chronic Assessment & Plan: Transfuse 2 units PRBC. Patient is unable to give a timeline regarding her bone marrow biopsy or endoscopy. She may need to follow up with Dr. Salcido again for further workup. No rectal bleeding. Code(s): D64.9 - ANEMIA, UNSPECIFIED (2) Abdominal pain Current Visit: Yes Status: Acute Assessment & Plan: Unclear etiology. CT negative for acute process. Exam is benign. Monitor clinically. Code(s): R10.9 - UNSPECIFIED ABDOMINAL PAIN (3) COPD with acute exacerbation Current Visit: No Status: Resolved Assessment & Plan: Likely due to not being able to take home bronchodilators and steroids. Will resume oral steroids and give nebs. Could consider IV steroids if not improved by the morning. Code(s): J44.1 - CHRONIC OBSTRUCTIVE PULMONARY DISEASE W (ACUTE) EXACERBATION (4) Hypothyroidism Current Visit: No Status: Acute Assessment & Plan: Continue Synthroid Code(s): E03.9 - HYPOTHYROIDISM, UNSPECIFIED (5) Nausea Current Visit: Yes Status: Acute Assessment & Plan: Zofran prn. Code(s): R11.0 - NAUSEA Telemedicine Encounter - Telemedicine Encounter Telemedicine Encounter: "The entirety of this encounter was performed via Telemedicine" This visit was performed using real-time audio and video connection between my location and thepatients locationwith the assistance of a surrogateat the patients location. Written or verbal consent was obtained from the patient/guardian to perform this visit using[employer] technology. Any patient questions regarding the telemedicine interaction were answered.
[2023-11-11] MEDS: TYLENOL 325 MG PO PRN (04:44)
[2023-11-11 04:56] LABS: Slide Review 1 YES
[2023-11-11] MEDS: DUONEB 0.5-3 MG/3 ml Neb IH SCH (06:28)
[2023-11-11] MEDS: Advair Hfa 230/21 Mcg COMMON CANISTER IH SCH (06:28)
[2023-11-11] MEDS ORDERED: ADVAIR 500-50 DISKUS IH SCH (07:00)
[2023-11-11] MEDS ORDERED: NON-FORMULARY ITEM (Gabapentin [Gabapentin] 600 MG Tablet) PO SCH (08:00)
[2023-11-11] MEDS ORDERED: HUMALOG SQ PRN (09:02)
[2023-11-11] MEDS: Flonase NASAL NS SCH (09:41)
[2023-11-11] MEDS: Imdur 30 MG PO SCH (09:42)
[2023-11-11] MEDS: ZOLOFT 50 MG TABLET PO SCH (09:42)
[2023-11-11] MEDS: Neurontin PO SCH (09:42)
[2023-11-11] MEDS: Pepcid 20 MG PO SCH (09:42)
[2023-11-11] MEDS: Protonix 40MG Tablet PO SCH (09:43)
[2023-11-11] MEDS: KLONOPIN PO SCH (09:43)
[2023-11-11] MEDS: SYNTHROID 25 MCG PO SCH (09:43)
[2023-11-11] MEDS: Zanaflex 4 MG PO SCH (09:43)
[2023-11-11] MEDS: THEOPHYLLINE ER 24HR PO SCH (09:43)
[2023-11-11] MEDS ORDERED: NON-FORMULARY ITEM (Omeprazole [Omeprazole] 40 MG Capsule.Dr) PO SCH (10:00)
[2023-11-11] MEDS ORDERED: NON-FORMULARY ITEM (Theophylline Anhydrous [Theophylline Er] 300 MG Tab.Er.12h) PO SCH (10:00)
[2023-11-11] MEDS ORDERED: NON-FORMULARY ITEM (Sertraline Hcl 100 Mg [Zoloft 100 Mg] 100 MG Tab) PO SCH (10:00)
[2023-11-11] MEDS ORDERED: FLUTICASONE-SALMETEROL 250-50 IH SCH (10:00)
--- NOTE | 2023-11-11 10:45 | PCM.DS ---
Discharge Summary Date of Admission: 11/11/23 03:05 Date of Discharge: 11/11/23 Admitting Physician: ARIS SIMMS MD Consults: Consults on Case 11/11/23 07:30 Case Management SDOH DC Needs Assessment ROUTINE Primary Care Provider: NISHA,WEN Allergies Allergies morphine Allergy (Severe, Verified 11/10/23 23:55) Fainting oxycodone Allergy (Verified 11/10/23 23:55) Shortness of Breath Penicillins Allergy (Verified 11/10/23 23:55) oxymorphone Adverse Reaction (Severe, Verified 11/10/23 23:55) Fainting Coconut Adverse Reaction (Intermediate, Verified 11/10/23 23:55) Headache bupropion HCl [From Wellbutrin] Adverse Reaction (Mild, Verified 11/10/23 23:55) [facility] Summary - Hospital Course Hospital Course: is a 67 year old female with a history of COPD and a long standing history of anemia (requiring intermittent transfusions and with negative bone marrow biopsy by Dr. Salcido ( hematology/oncology) and negative endoscopy) who presents to the hospital with progressive diffuse abdominal pain. The patient reported that her pain started at 10 AM on 11/10/23 and progressively worsened, especially over the 2 hours prior to presentation. Pain was associated with nausea but no emesis. Patient's last bowel movement was on 11/09/23 and was normal without blood. However patient has not been able to tolerate p.o. Patient has a history of advanced COPD and requires daily nebulizer treatment as well as 20 mg of prednisone twice daily. Patient did not have her daily albuterol or her prednisone due to her gastrointestinal symptoms. In the ED, the patient was noted to be wheezing as a result of not being able to take medications as prescribed. She denied fever or trauma. In the ED she was also noted to be anemic with significant pallor. Today received 2 units PRBC., repeat hgb is 8 . Pt wanting to d/c today. She will need to f/u with PCP OP. - Vitals & Intake/Output Vital Signs: Vital Signs Temperature 97.5 F 11/11/23 08:00 Pulse Rate 79 11/11/23 08:00 Respiratory Rate 18 11/11/23 08:00 Blood Pressure 114/56 11/11/23 08:00 O2 Sat by Pulse Oximetry 100 11/11/23 08:00 Intake & Output: Intake & Output 11/08/23 11/09/23 11/10/23 11/11/23 11:59 11:59 11:59 11:59 Intake Total 420 Balance 420 Weight 73.4 kg - Lab Result Diagrams: 11/11/23 16:15 11/11/23 00:43 Lab Results-Last 24 Hrs: Lab Results-Last 24 Hours 11/11/23 11/11/23 11/11/23 Range/Units 00:43 00:43 00:43 WBC 4.2 (3.98-10.04) x10^3/uL RBC 2.86 L (3.93-5.22) x10^6/uL Hgb 6.1 L* (11.2-15.7) g/dL Hct 22.0 L (34.1-44.9) % MCV 76.9 L (79.4-94.8) fL MCH 21.3 L (25.6-32.2) pg MCHC 27.7 L (32.2-35.5) g/dL RDW 19.1 H (11.7-14.4) % Plt Count 499 H (182-369) x10^3/uL MPV 10.2 (9.4-12.3) fL Gran % 49.8 (34.0-71.1) % Immature Gran % (Auto) 0.2 (0.001-0.429) % Nucleat RBC Rel Count 0.0 (0.00-0.2) % Eos # (Auto) 0.11 (0.04-0.36) x10^3/uL Immature Gran # (Auto) 0.01 (0.001-0.031) x10^3u/L Absolute Lymphs (auto) 1.29 (1.18-3.74) x10^3/uL Absolute Monos (auto) 0.66 (0.24-0.86) x10^3/uL Absolute Nucleated RBC 0.00 (0.00-0.012) x10^3u/L Lymphocytes % 30.6 (19.3-51.7) % Monocytes % 15.6 H (4.7-12.5) % Eosinophils % 2.6 (0.7-5.8) % Basophils % 1.2 (0.1-1.2) % Absolute Granulocytes 2.10 (1.56-6.13) x10^3/uL Basophils # 0.05 (0.01-0.08) x10^3/uL Sodium 141 (135-145) mmol/L Potassium 3.5 (3.5-5.1) mmol/L Chloride 109 H (98-107) mmol/L Carbon Dioxide 24 (22-30) mmol/L Anion Gap 11.3 (5-15) MEQ/L BUN 7 (7-17) mg/dL Creatinine 0.89 (0.52-1.04) mg/dL Estimated GFR 71.9 ML/MIN Glucose 103 (74-106) mg/dL Calcium 8.7 (8.4-10.2) mg/dL Total Bilirubin 0.20 (0.2-1.3) mg/dL AST 23 (14-36) U/L ALT 15 (0-35) U/L Alkaline Phosphatase 80 (38-126) U/L Serum Total Protein 6.6 (6.3-8.2) g/dL Albumin 3.8 (3.5-5.0) g/dL Lipase (23-300) U/L Influenza Type A Ag NEGATIVE (NEGATIVE) Influenza Type B Ag NEGATIVE (NEGATIVE) RSV (PCR) NEGATIVE (NEGATIVE) SARS-CoV-2 (PCR) NEGATIVE (NEGATIVE) Slides for Path Review YES ABO Group Rh Factor Antibody Screen (NEGATIVE) Crossmatch (COMPATIBLE) 11/11/23 11/11/23 11/11/23 Range/Units 00:43 01:30 01:30 WBC (3.98-10.04) x10^3/uL RBC (3.93-5.22) x10^6/uL Hgb (11.2-15.7) g/dL Hct (34.1-44.9) % MCV (79.4-94.8) fL MCH (25.6-32.2) pg MCHC (32.2-35.5) g/dL RDW (11.7-14.4) % Plt Count (182-369) x10^3/uL MPV (9.4-12.3) fL Gran % (34.0-71.1) % Immature Gran % (Auto) (0.001-0.429) % Nucleat RBC Rel Count (0.00-0.2) % Eos # (Auto) (0.04-0.36) x10^3/uL Immature Gran # (Auto) (0.001-0.031) x10^3u/L Absolute Lymphs (auto) (1.18-3.74) x10^3/uL Absolute Monos (auto) (0.24-0.86) x10^3/uL Absolute Nucleated RBC (0.00-0.012) x10^3u/L Lymphocytes % (19.3-51.7) % Monocytes % (4.7-12.5) % Eosinophils % (0.7-5.8) % Basophils % (0.1-1.2) % Absolute Granulocytes (1.56-6.13) x10^3/uL Basophils # (0.01-0.08) x10^3/uL Sodium (135-145) mmol/L Potassium (3.5-5.1) mmol/L Chloride (98-107) mmol/L Carbon Dioxide (22-30) mmol/L Anion Gap (5-15) MEQ/L BUN (7-17) mg/dL Creatinine (0.52-1.04) mg/dL Estimated GFR ML/MIN Glucose (74-106) mg/dL Calcium (8.4-10.2) mg/dL Total Bilirubin (0.2-1.3) mg/dL AST (14-36) U/L ALT (0-35) U/L Alkaline Phosphatase (38-126) U/L Serum Total Protein (6.3-8.2) g/dL Albumin (3.5-5.0) g/dL Lipase 64 (23-300) U/L Influenza Type A Ag (NEGATIVE) Influenza Type B Ag (NEGATIVE) RSV (PCR) (NEGATIVE) SARS-CoV-2 (PCR) (NEGATIVE) Slides for Path Review ABO Group A Rh Factor POSITIVE Antibody Screen NEGATIVE (NEGATIVE) Crossmatch COMPATIBLE COMPATIBLE (COMPATIBLE) - Radiology Exams Ordered Rad Exams-Entire Visit: Radiology Procedures Category Date Time Status ABDOMEN AND PELVIS W/0 CONTRAS [CT] Stat Exams 11/11/23 00:25 Completed - Procedures and Test Procedures and Tests throughout Hospitalization: Therapy Orders & Screens 11/11/23 00:37 Respiratory Therapy Assessment DAILY Comment: 11/11/23 03:50 Oxygen Nasal Cannula 3 lpm Comment: Diagnosis: Abdominal pain, symptomatic anemia 11/11/23 03:51 Respiratory MDI BID Comment: Diagnosis: Abdominal pain, symptomatic anemia 11/11/23 07:30 Smoking Cessation Education ONCE Comment: Diagnosis: Abdominal pain, symptomatic anemia Smoking Status: Current every day smoker How long have you smoked: 40 years Have you smoked in the past 12 months: Yes Approximately how many cigarettes per day: 1 pack/day Do you dip or chew tobacco: No If,Former Smoker,when did you quit: 1 week ago Discharge Exam General Appearance: no apparent distress, alert Neurologic Exam: alert, oriented x 3, cooperative, normal mood/affect, nml cerebellar function, sensation nml, No motor deficits Eye Exam: PERRL, EOMI, eyes nml inspection Ears, Nose, Throat Exam: normal ENT inspection, pharynx normal, moist mucous membranes Neck Exam: normal inspection, non-tender, supple, full range of motion Respiratory Exam: normal breath sounds, lungs clear, No respiratory distress Cardiovascular Exam: regular rate/rhythm, normal heart sounds Gastrointestinal/Abdomen Exam: soft, tenderness (epigastric region), No mass Pelvic Exam: deferred Rectal Exam: deferred Back Exam: normal inspection, normal range of motion, No CVA tenderness, No vertebral tenderness Extremity Exam: normal inspection, normal range of motion Skin Exam: normal color, warm, dry Final Diagnosis/Problem List - Final Discharge Diagnosis/Problem (1) Normocytic anemia Current Visit: No Status: Chronic Code(s): D64.9 - ANEMIA, UNSPECIFIED (2) Abdominal pain Current Visit: Yes Status: Acute Code(s): R10.9 - UNSPECIFIED ABDOMINAL PAIN (3) COPD with acute exacerbation Current Visit: No Status: Resolved Code(s): J44.1 - CHRONIC OBSTRUCTIVE PULMONARY DISEASE W (ACUTE) EXACERBATION (4) Hypothyroidism Current Visit: No Status: Acute Code(s): E03.9 - HYPOTHYROIDISM, UNSPECIFIED (5) Nausea Current Visit: Yes Status: Acute Assessment & Plan: (1) Normocytic anemia Current Visit: No Status: Chronic Assessment & Plan: Transfuse 2 units PRBC. Patient is unable to give a timeline regarding her bone marrow biopsy or endoscopy. She may need to follow up with Dr. Salcido again for further workup. No rectal bleeding. - Repeat HGB 8.0 Code(s): D64.9 - ANEMIA, UNSPECIFIED (2) Abdominal pain Current Visit: Yes Status: Acute Assessment & Plan: Unclear etiology. CT negative for acute process. Exam is benign. Monitor clinically. Carafate started Code(s): R10.9 - UNSPECIFIED ABDOMINAL PAIN (3) COPD with acute exacerbation Current Visit: No Status: Resolved Assessment & Plan: Likely due to not being able to take home bronchodilators and steroids. Will resume oral steroids and give nebs. Could consider IV steroids if not improved by the morning. Code(s): J44.1 - CHRONIC OBSTRUCTIVE PULMONARY DISEASE W (ACUTE) EXACERBATION (4) Hypothyroidism Current Visit: No Status: Acute Assessment & Plan: Continue Synthroid Code(s): E03.9 - HYPOTHYROIDISM, UNSPECIFIED (5) Nausea Current Visit: Yes Status: Acute Assessment & Plan: Zofran prn. Code(s): R11.0 - NAUSEA Code(s): R11.0 - NAUSEA - Discharge Discharge Date: 11/11/23 Disposition: Home, Self-Care Condition: Stable Prescriptions: Continue Fluticasone/Salmeterol Disc [Advair/Wixella 250-50 Diskus 14 Dose] 1 puff IH BID Famotidine 20 mg [Pepcid 20 MG] 20 mg PO BID Albuterol/Ipratropium Mdi [Combivent Inhaler] 1 puff IH QID Sertraline HCl 100 mg [Zoloft 100 MG] 200 mg PO DAILY Isosorbide Mononitrate 30 mg [Imdur 30 MG] 30 mg PO DAILY Tizanidine HCl 4 mg [Zanaflex 4 MG] 4 mg PO TID Quetiapine Fumarate [Seroquel] 300 mg PO HS Nitroglycerin 0.4 mg Tablet [Nitrostat 0.4 MG Tablet] 0.4 mg SL UD PRN PRN Reason: Chest Pain Theophylline Anhydrous [Theophylline ER] 300 mg PO DAILY Fluticasone Propionate [Flonase NASAL] 1 spray NS BID Levothyroxine Sodium 25 Mcg [Synthroid 25 Mcg] 25 mcg PO DAILY tablet Omeprazole 40 mg PO DAILY Albuterol Sulfate Mdi [ALBUTEROL/Proair Hfa MDI] 2 puff IH QID Clonazepam [Klonopin] 2 mg PO BID Gabapentin 1,200 mg PO BREAKFAST Gabapentin [Neurontin ] 2,400 mg PO HS cap Prednisone 20 mg [Deltasone 20 mg] 20 mg PO BID 5 Days #10 tablet Additional Instructions: YOUR OXYGEN PROVIDER IS NOW [facility]. YOU NEED TO CALL THEM AT [phone] SO THEY CAN SET UP YOUR ACCOUNT- THEN YOU CALL THEM WHEN YOU NEED TANKS IF YOU WOULD LIKE A WHEELCHAIR- PLEASE CONTACT DR. CAEMRON PREVIOUSLY INSTRUCTED Follow up with: WEN CAMERON MD [Primary Care Provider] - 11/16/23 2:30 pm ([facility])
[2023-11-11] MEDS: Carafate 1 GM PO SCH (11:36)
[2023-11-11 14:53] VITALS: O2SAT 99
[2023-11-11 16:16] VITALS: BP 135/57; PULSE 87; RESP 16; TEMP 98.1
[2023-11-11 16:26] LABS: Hematocrit 26.3 % (34.1-44.9)
[2023-11-11] MEDS ORDERED: Seroquel 100 MG PO SCH (22:00)
[2023-11-11] MEDS ORDERED: Neurontin PO SCH (22:00)
== END 2023-11-11 17:38 | disposition home or self-care (01) ==
LOC: ED 23:50 → MED SURG 11-11 03:05
PROVIDERS: ADMIT Internal Medicine; ATTEND Internal Medicine
DX: D64.9 Anemia, unspecified (principal); R10.9 Unspecified abdominal pain; J44.1 Chronic obstructive pulmonary disease with (acute) exacerbation; R11.0 Nausea; Z79.899 Other long term (current) drug therapy; E03.9 Hypothyroidism, unspecified; Z20.828 Contact with and (suspected) exposure to other viral communicable diseases
CPT/HCPCS: 0241U; 36000; 36415; 36430; 74176; 80053; 83690; 85014; 85018; 85025; 86850; 86900; 86901; 86922; 93005; 93041; 93268; 94640; 94760; 94762; 96374; 99285; G0378; P9016; Q3014; J1885; J2405; A9270-GY

== ENCOUNTER 2023-12-18 16:22 | Observation (INO) | payer MEDICARE, OTHER ==
--- NOTE | 2023-12-18 17:06 | ERPHSYRPT ---
- History of Present Illness Time Seen by Provider: 12/18/23 16:58 Historian: patient Exam Limitations: no limitations Patient Subjective Stated Complaint: Pt states "I feel like crap. I ache and my belly really hurts." Triage Nursing Assessment: Pt presented alert and oriented x 3, skin pwd. Pt ambulates with an upright steady gait, able to speak in clear full sentences. PT resting comfortably on the bed. Physician History: Patient is 68-year-old female with significant past medical history of pulmonary fibrosis COPD chronic anemia for which patient has received multiple blood transfusion started having epigastric abdominal pain today morning. She walked into the emergency room and got into the bed. She denies any fever or chills blood in the stool or urine. Timing/Duration: today Quality: cramping Abdominal Pain Onset Location: epigastric Pain Radiation: no radiation Severity of Pain-Max: mild Severity of Pain-Current: moderate Modifying Factors: Improves With: nothing Associated Symptoms: denies symptoms Previous symptoms: no prior history Body Map: 1 - pain Allergies/Adverse Reactions: morphine Allergy (Severe, Verified 11/10/23 23:55) Fainting oxycodone Allergy (Verified 11/10/23 23:55) Shortness of Breath Penicillins Allergy (Verified 11/10/23 23:55) oxymorphone Adverse Reaction (Severe, Verified 11/10/23 23:55) Fainting Coconut Adverse Reaction (Intermediate, Verified 11/10/23 23:55) Headache bupropion HCl [From Wellbutrin] Adverse Reaction (Mild, Verified 11/12/23 21:21) Hives Home Medications: Albuterol/Ipratropium Mdi [Combivent Inhaler] 1 puff IH QID 12/29/12 [History] Famotidine 20 mg [Pepcid 20 MG] 20 mg PO BID 12/29/12 [History] Fluticasone/Salmeterol Disc [Advair/Wixella 250-50 Diskus 14 Dose] 1 puff IH BID 12/29/12 [History] Sertraline HCl 100 mg [Zoloft 100 MG] 200 mg PO DAILY 12/17/13 [History] Isosorbide Mononitrate 30 mg [Imdur 30 MG] 30 mg PO DAILY 11/05/14 [History] Tizanidine HCl 4 mg [Zanaflex 4 MG] 4 mg PO TID 01/16/15 [History] Quetiapine Fumarate [Seroquel] 300 mg PO HS 10/17/15 [History] Nitroglycerin 0.4 mg Tablet [Nitrostat 0.4 MG Tablet] 0.4 mg SL UD PRN 11/15/15 [History] Theophylline Anhydrous [Theophylline ER] 300 mg PO DAILY 12/23/20 [History] Fluticasone Propionate [Flonase NASAL] 1 spray NS BID 03/15/21 [History] Omeprazole 40 mg PO DAILY 10/22/21 [History] Albuterol Sulfate Mdi [ALBUTEROL/Proair Hfa MDI] 2 puff IH QID 03/10/23 [History] Clonazepam [Klonopin] 2 mg PO BID 03/10/23 [History] Gabapentin 1,200 mg PO BREAKFAST 03/11/23 [History] Hx Tetanus, Diphtheria Vaccination/Date Given: No Hx Influenza Vaccination/Date Given: No Hx Pneumococcal Vaccination/Date Given: No Immunizations Up to Date: No Travel Risk - International Travel Have you traveled outside of the country in past 3 weeks: No - Emerging Infectious Disease Are you exhibiting symptoms associated with any current EIDs: Yes Symptoms: Abdominal Pain, Headaches/Body Aches/ - Review of Systems Constitutional: No Fever, No Chills Eyes: No Symptoms Ears, Nose, & Throat: No Symptoms Respiratory: No Cough, No Dyspnea Cardiac: No Chest Pain, No Edema, No Syncope Abdominal/Gastrointestinal: Abdominal Pain, No Nausea, No Vomiting, No Diarrhea, No Hematemesis, No Hematochezia, No Melena Genitourinary Symptoms: No Dysuria Musculoskeletal: No Back Pain, No Neck Pain Skin: No Rash Neurological: No Dizziness, No Focal Weakness, No Sensory Changes Psychological: No Symptoms Endocrine: No Symptoms All Other Systems: Reviewed and Negative - Past Medical History Pertinent Past Medical History: Yes Neurological History: Migraines ENT History: No Pertinent History Cardiac History: Congestive Heart Failure, Coronary Artery Disease, High Cholesterol, Other Respiratory History: Asthma, Bronchitis, COPD, Pneumonia, Pulmonary Embolism Endocrine Medical History: Hypothyroidism Musculoskeletal History: Arthritis, Osteoporosis GI Medical History: GERD, Hernia, Polyps History: No Pertinent History Psycho-Social History: Anxiety, Bipolar, Depression, Other Female Reproductive Disorders: Fibroids Other Medical History: 2 LEAKY VALVES. BORDERLINE PERSONALITY DISORDER, PTSD, manic depressive. Anemia - Past Surgical History Past Surgical History: Yes Neuro Surgical History: No Pertinent History Cardiac: Cardiac Catheterization Respiratory: No Pertinent History Gastrointestinal: Other Genitourinary: No Pertinent History Musculoskeletal: Other Female Surgical History: Section Other Surgical History: ARM SURGERY-- left wrist laceration from a glass door, 2 c-sections, EGD with dilitation, colonoscopy, heart cath x 2 Significant Family History: no pertinent family hx - Social History Smoking Status: Current every day smoker How long have you smoked: 40 years Exposure to second hand smoke: Yes Alcohol Use: Socially Drug Use: none Patient Lives Alone: No - Social Determinants of Health Will the patient participate in the screening: Yes Do you worry about a steady place to live?: No Do you have any problems with any of the following?: No known problems In the past 12 months,have you had to go without utilities?: No Transportation Issues: No Has anyone in your support network made you feel unsafe?: No Have you or anyone in your house had to go without enough: No - Nursing Vital Signs Nursing Vital Signs: Initial Vital Signs Pulse Rate 103 H 12/18/23 16:31 Respiratory Rate 26 H 12/18/23 16:31 Blood Pressure 136/70 12/18/23 16:31 O2 Sat by Pulse Oximetry 100 12/18/23 16:31 Pain Scale Pain Intensity 3 - Physical Exam General Appearance: no apparent distress, alert Eye Exam: PERRL/EOMI, eyes nml inspection Ears, Nose, Throat Exam: normal ENT inspection, pharynx normal, moist mucous membranes Neck Exam: normal inspection, non-tender, supple, full range of motion Respiratory Exam: normal breath sounds, lungs clear, No respiratory distress Cardiovascular Exam: regular rate/rhythm, normal heart sounds Gastrointestinal/Abdomen Exam: soft, tenderness (epigastric area), No mass Pelvic Exam: not done Back Exam: normal inspection, normal range of motion, No CVA tenderness, No vertebral tenderness Extremity Exam: normal inspection, normal range of motion, pelvis stable Neurologic Exam: alert, oriented x 3, cooperative, normal mood/affect, nml cerebellar function, sensation nml, No motor deficits Skin Exam: normal color, warm, dry SpO2: 100 - Course Nursing assessment & vital signs reviewed: Yes - CT Exams Abdomen/Pelvis CT Interpretation: Tele-radiologist Report Ordered Tests: Active Orders 24 hr Category Date Time Status ABDOMEN AND PELVIS W CONTRAST [CT] Stat Exams 12/18/23 16:54 Ordered AMYLASE Stat Lab 12/18/23 17:20 Received CBC W DIFF Stat Lab 12/18/23 17:20 Completed CMP Stat Lab 12/18/23 17:20 Received LIPASE Stat Lab 12/18/23 17:20 Received TROPONIN Stat Lab 12/18/23 17:20 Received UA W/RFX UR CULTURE Stat Lab 12/18/23 16:54 Ordered Transfer Order Routine Transfer 12/18/23 Ordered Medication Summary Discontinued Medications Generic Name Dose Route Start Last Admin Trade Name Yordan PRN Reason Stop Dose Admin Acetaminophen 975 mg 12/18/23 17:33 12/18/23 17:39 Acetaminophen 325 Mg Tablet PO 12/18/23 17:34 975 mg STAT STA Administration Acetaminophen Confirm 12/18/23 17:38 Acetaminophen 325 Mg Tablet Administered 12/18/23 17:39 Dose 975 mg .ROUTE .STK-MED ONE Sodium Chloride 1,000 mls @ 999 mls/hr 12/18/23 16:53 12/18/23 17:39 Sodium Chloride 0.9% 1000 Ml IV 12/18/23 17:53 999 mls/hr .Q1H1M STA Administration Sodium Chloride Confirm 12/18/23 17:38 Sodium Chloride 0.9% 1000 Ml Administered 12/18/23 17:39 Dose 1,000 mls @ ud .ROUTE .STK-MED ONE Pantoprazole Sodium 40 mg 12/18/23 16:53 12/18/23 17:39 Pantoprazole 40 Mg Vial IV 12/18/23 16:54 40 mg STAT ONE Administration Pantoprazole Sodium Confirm 12/18/23 17:38 Pantoprazole 40 Mg Vial Administered 12/18/23 17:39 Dose 40 mg IV .STK-MED ONE Lab/Rad Data: Laboratory Result Diagrams 12/18/23 17:20 Laboratory Results 12/18/23 Range/Units 17:20 WBC 10.2 H (3.98-10.04) x10^3/uL RBC 2.61 L (3.93-5.22) x10^6/uL Hgb 5.4 L* (11.2-15.7) g/dL Hct 20.0 L (34.1-44.9) % MCV 76.6 L (79.4-94.8) fL MCH 20.7 L (25.6-32.2) pg MCHC 27.0 L (32.2-35.5) g/dL RDW 20.2 H (11.7-14.4) % Plt Count 436 H (182-369) x10^3/uL MPV 9.7 (9.4-12.3) fL Gran % 91.5 H (34.0-71.1) % Immature Gran % (Auto) 0.5 H (0.001-0.429) % Nucleat RBC Rel Count 0.2 (0.00-0.2) % Eos # (Auto) 0.02 L (0.04-0.36) x10^3/uL Immature Gran # (Auto) 0.05 H (0.001-0.031) x10^3u/L Absolute Lymphs (auto) 0.45 L (1.18-3.74) x10^3/uL Absolute Monos (auto) 0.27 (0.24-0.86) x10^3/uL Absolute Nucleated RBC 0.02 H (0.00-0.012) x10^3u/L Lymphocytes % 4.4 L (19.3-51.7) % Monocytes % 2.7 L (4.7-12.5) % Eosinophils % 0.2 L (0.7-5.8) % Basophils % 0.7 (0.1-1.2) % Absolute Granulocytes 9.30 H (1.56-6.13) x10^3/uL Basophils # 0.07 (0.01-0.08) x10^3/uL - Progress Progress: unchanged Discussed with : Other Will see patient in: hospital (observation) Counseled pt/family regarding: lab results, diagnosis, need for follow-up Medical Desision Making - Independent Historian Additional History obtained from: Family - Discussion of managment Care discussed with:: hospitalist Reviewed:: Test results, Need for additional workup Agreed on:: Treatment plan, decision to admit, place in obs Will see patient: in hospital - Diagnostic Testing Diagnostic test were ordered, analyzed, and reviewed by me: Yes - Risk of complications The pt has a mod risk of morbidity or mortality based on: Diagnosis or treatment limited by SDOH - Departure Departure Disposition: Observation Clinical Impression: Acute anemia, Chronic anemia, Symptomatic anemia Abdominal pain Qualifiers: Abdominal location: epigastric Qualified Code(s): R10.13 - Epigastric pain Iron deficiency anemia Qualifiers: Iron deficiency anemia type: chronic blood loss Qualified Code(s): D50.0 - Iron deficiency anemia secondary to blood loss (chronic) Condition: Fair Critical Care Time: No Referrals: WEN CAMERON MD [Primary Care Provider] - Follow up/PCP as directed
[2023-12-18 17:30] LABS: BASOPHIL % 0.7 % (0.1-1.2); Basophil (Absolute #) 0.07 x10^3/uL (0.01-0.08); Eosinophil % 0.2 % (0.7-5.8); Eosinophil (Absolute #) 0.02 x10^3/uL (0.04-0.36); IMMATURE GRAN # 0.05 x10^3u/L (0.001-0.031); IMMATURE GRAN % 0.5 % (0.001-0.429); Lymphocyte (Absolute #) 0.45 x10^3/uL (1.18-3.74); Lymphocytes % 4.4 % (19.3-51.7); Mean Cell Volume 76.6 fL (79.4-94.8); Mean Corpuscular Hemoglobin 20.7 pg (25.6-32.2); Mean Platelet Volume 9.7 fL (9.4-12.3); Monocyte (Absolute #) 0.27 x10^3/uL (0.24-0.86); Monocytes % 2.7 % (4.7-12.5); NUCLEATED RBC # 0.02 x10^3u/L (0.00-0.012); NUCLEATED RBC % 0.2 % (0.00-0.2); Neutrophil % 91.5 % (34.0-71.1); Platelet Count 436 x10^3/uL (182-369); Red Blood Count 2.61 x10^6/uL (3.93-5.22); Red Cell Distribution Width 20.2 % (11.7-14.4); White Blood Count 10.2 x10^3/uL (3.98-10.04)
[2023-12-18 17:36] LABS: Hemoglobin 5.4 g/dL (11.2-15.7)
[2023-12-18] MEDS ORDERED: TYLENOL 325 MG ONE (17:38)
[2023-12-18] MEDS ORDERED: PROTONIX 40 MG IV IV ONE (17:38)
[2023-12-18] MEDS ORDERED: Sodium Chloride 0.9% 1000 ML 1,000 ML ONE (17:38)
[2023-12-18] MEDS: Sodium Chloride 0.9% 1000 ML 1,000 ML IV STA (17:39)
[2023-12-18] MEDS: TYLENOL 325 MG PO STA (17:39)
[2023-12-18] MEDS: PROTONIX 40 MG IV IV ONE (17:39)
[2023-12-18 17:54] LABS: ALBUMIN 3.4 g/dL (3.5-5.0); ALKALINE PHOSPHATASE 59 U/L (38-126); AMYLASE 55 U/L (30-110); ANION GAP 9.9 MEQ/L (5-15); BLOOD UREA NITROGEN 7 mg/dL (7-17); CHLORIDE 107 mmol/L (98-107); Calcium 8.6 mg/dL (8.4-10.2); Carbon Dioxide 24 mmol/L (22-30); Creatinine 1 0.75 mg/dL (0.52-1.04); EST GLOMERULAR FILTRATION RATE 87.8 ML/MIN; Glucose 145 mg/dL (74-106); LIPASE 40 U/L (23-300); Potassium 3.3 mmol/L (3.5-5.1); SGOT/AST 19 U/L (14-36); SGPT/ALT 22 U/L (0-35); SODIUM 137 mmol/L (135-145); TROPONIN < 0.012 ng/mL (0.000-0.033); Total Protein 6.2 g/dL (6.3-8.2)
--- NOTE | 2023-12-18 19:12 | XRAY ---
CLINICAL HISTORY: epigatric abdominal pain COMPARISON: Comparison is made with previous imaging studies dated 11/10/2023. TECHNIQUE: CT of the abdomen and pelvis was performed, with the following protocol: axial images, and reconstructed coronal and sagittal images. 80 cc Isovue 370 Intravenous contrast was administered. One of the following dose reduction techniques was utilized for this exam: Automated exposure control, adjustment of the mA and/or kV according to patient size, and use of iterative reconstruction. FINDINGS: Abdomen: Liver: Normal in size, shape, and density. No focal lesions, cysts, or masses were identified. Gallbladder and Biliary System: The gallbladder is normal in size and shape. No wall thickening, pericholecystic fluid, or gallstones were identified. Pancreas: Pancreatic head, body, and tail are visualized and appear normal in size and density. No pancreatic masses or calcifications were noted. Spleen: Normal in size, shape, and density. No splenic lesions or masses were identified. Stable small calcifications. Kidneys and Adrenal Glands: Both kidneys are normal in size, shape, and position. Cortical thickness is within normal limits. No renal calculi or hydronephrosis. Adrenal glands are unremarkable. Appendix: The appendix is normal in size without darlin appendiceal fat stranding, and without an appendicolith. No evidence of appendiceal abscess or perforation. Pelvis: Urinary Bladder: Normal in contour and wall thickness. No intraluminal lesions. Uterus: Normal in size and contour. No masses or abnormal thickening. Ovaries: Not well visualized but no gross abnormalities noted. Vagina: Normal in contour and wall thickness. Cervix: No evidence of mass or abnormal thickening. Peritoneal and Retroperitoneal Structures: No free fluid or abnormal fluid collections were identified within the abdomen or pelvis. No lymphadenopathy was noted. Bowel: Moderate-sized hiatus hernia. The visualized bowel loops are normal in caliber and appearance. No evidence of bowel obstruction or wall thickening. Bones and Soft Tissues: Spine degenerative changes with multilevel disc lesions. Small intraspinal air locule at L2 vertebral level. Pelvic bones show tiny bone islands. No fractures or abnormal masses were identified. Vascular calcifications of jaelyn aorta and its branches. Small right diaphragmatic hernia containing fat. IMPRESSION: 1. Moderate-sized Hiatus hernia. 2. 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 3. No appreciable changes since the last study. Electronically Signed by: Yehuda Roberts MD. (12/18/2023 19:07:59 EDT)
[2023-12-18 19:27] LABS: CROSS MATCH (PRBC) COMPATIBLE (COMPATIBLE)
[2023-12-18 19:28] LABS: CROSS MATCH (PRBC) COMPATIBLE (COMPATIBLE)
[2023-12-18 19:30] LABS: CROSS MATCH (PRBC) COMPATIBLE (COMPATIBLE)
[2023-12-18 19:35] LABS: ABO TYPING A
[2023-12-18 19:36] LABS: Antibody Screen NEGATIVE (NEGATIVE); RH TYPING POSITIVE
[2023-12-18] MEDS: TYLENOL 325 MG PO PRN (20:12)
[2023-12-18 20:36] LABS: Appearance Clear (Clear); Bacteria None Seen /HPF (None Seen); Bilirubin Negative (Negative); Blood Negative (Negative); Epithelial Cells None Seen /HPF (None Seen); Glucose, Urine Negative (Negative); Hyaline Casts NONE SEEN /LPF (0-2); Ketones Negative (Negative); Leukocyte Esterase Negative (Negative); Nitrite Negative (Negative); Protein,Urine Dip Negative (Negative); RBC 0-2 /HPF (0-5); Specific Gravity >=1.030 (1.005-1.030); Urobilinogen 0.2 mg/dL (0.2); WBC 0-2 /HPF (0-5)
--- NOTE | 2023-12-18 21:11 | PCM.HP ---
History of Present Illness - Chief Complaint Chief Complaint: abdominal pain Date: 12/18/23 History of Present Illness: 68-year-old woman with a history of COPD, chronic hypoxic respiratory failure on 3 L oxygen, and recurrent persistent microcytic anemia, here with abdominal pain. Patient has had multiple admissions with symptomatic anemia, usually with abdominal pain and other vague symptoms. She has reportedly undergone bone marrow biopsy and upper and lower endoscopy with no etiology found. She presents again today with 1 day of periumbilical diffuse sharp abdominal pain, associated with nausea and headache, worse with eating. Patient notes that she has chronic dyspnea that is unchanged, and remains on her baseline 3 L oxygen. She denies chest pain. - Review of Systems All Other Systems: Reviewed and Negative Medications & Allergies Home Medications: Home Medication List Albuterol/Ipratropium Mdi [Combivent Inhaler] 1 puff IH QID 12/29/12 [History Confirmed 12/18/23] Famotidine 20 mg [Pepcid 20 MG] 20 mg PO BID 12/29/12 [History Confirmed 12/18/23] Fluticasone/Salmeterol Disc [Advair/[place] 250-50 Diskus 14 Dose] 1 puff IH BID 12/29/12 [History Confirmed 12/18/23] Sertraline HCl 100 mg [Zoloft 100 MG] 200 mg PO DAILY 12/17/13 [History Confirmed 12/18/23] Isosorbide Mononitrate 30 mg [Imdur 30 MG] 30 mg PO DAILY 11/05/14 [History Confirmed 12/18/23] Tizanidine HCl 4 mg [Zanaflex 4 MG] 4 mg PO TID 01/16/15 [History Confirmed 12/18/23] Quetiapine Fumarate [Seroquel] 300 mg PO HS 10/17/15 [History Confirmed 12/18/23] Nitroglycerin 0.4 mg Tablet [Nitrostat 0.4 MG Tablet] 0.4 mg SL UD PRN 11/15/15 [History Confirmed 12/18/23] Theophylline Anhydrous [Theophylline ER] 300 mg PO DAILY 12/23/20 [History Confirmed 12/18/23] Fluticasone Propionate [Flonase NASAL] 1 spray NS BID 03/15/21 [History Confirmed 12/18/23] Levothyroxine Sodium 25 Mcg [Synthroid 25 Mcg] 25 mcg PO DAILY tablet 03/17/21 [Rx Confirmed 12/18/23] Omeprazole 40 mg PO DAILY 10/22/21 [History Confirmed 12/18/23] Albuterol Sulfate Mdi [ALBUTEROL/Proair Hfa MDI] 2 puff IH QID 03/10/23 [History Confirmed 12/18/23] Clonazepam [Klonopin] 2 mg PO BID 03/10/23 [History Confirmed 12/18/23] Gabapentin 1,200 mg PO BREAKFAST 03/11/23 [History Confirmed 12/18/23] Gabapentin [Neurontin ] 2,400 mg PO HS cap 03/12/23 [Rx Confirmed 12/18/23] Allergies/Adverse Reactions: Allergies Allergy/AdvReac Type Severity Reaction Status Date / Time morphine Allergy Severe Fainting Verified 11/10/23 23:55 oxycodone Allergy Shortness Verified 11/10/23 23:55 of Breath Penicillins Allergy Verified 11/10/23 23:55 oxymorphone AdvReac Severe Fainting Verified 11/10/23 23:55 [place] AdvReac Intermediate Headache Verified 11/10/23 23:55 bupropion HCl AdvReac Mild Hives Verified 11/12/23 21:21 [From Wellbutrin] - Past Medical History Past Medical History: Yes Neurological History: Migraines ENT History: No Pertinent History Cardiac History: Congestive Heart Failure, Coronary Artery Disease, High Cholesterol, Other Respiratory History: Asthma, Bronchitis, COPD, Pneumonia, Pulmonary Embolism Endocrine Medical History: Hypothyroidism Musculoskelatal History: Arthritis, Osteoporosis GI Medical History: GERD, Hernia, Polyps History: No Pertinent History Pyscho-Social History: Anxiety, Bipolar, Depression, Other Reproductive Disorders: Fibroids Comment: 2 LEAKY VALVES. BORDERLINE PERSONALITY DISORDER, PTSD, manic depressive. Anemia - Past Surgical History Past Surgical History: Yes Neuro Surgical History: No Pertinent History Cardiac History: Cardiac Catheterization Respiratory Surgery: No Pertinent History GI Surgical History: Other Genitourinary Surgical Hx: No Pertinent History Musculskeletal Surgical Hx: Other Female Surgical History: Section Other Surgical History: ARM SURGERY-- left wrist laceration from a glass door, 2 c-sections, EGD with dilitation, colonoscopy, heart cath x 2 Significant Family History: no pertinent family hx - Social History Smoking Status: Current every day smoker How long have you smoked: 40 years Exposure to second hand smoke: Yes Alcohol: None Drug Use: none - Social Determinants of Health Will the patient participate in the screening: Yes Do you worry about a steady place to live?: No Do you have any problems with any of the following?: No known problems In the past 12 months,have you had to go without utilities?: No Have you or anyone in your house had to go without enough: No Transportation Issues: No Has anyone in your support network made you feel unsafe?: No Does the patient want assistance with any of the above?: No - Physical Exam Vital Signs: Vital Signs - 24 hr Temp Pulse Resp BP BP Pulse Ox 12/18/23 19:51 98.0 F 91 H 22 99/54 100 12/18/23 17:55 100 12/18/23 17:45 94 H 25 H 123/60 100 12/18/23 17:30 97 H 25 H 116/60 100 12/18/23 17:00 99 H 21 107/47 98 12/18/23 16:45 100 H 25 H 113/56 100 12/18/23 16:33 98.6 F 106 H 20 136/70 100 12/18/23 16:31 103 H 26 H 136/70 100 GEN: Lying in bed in no acute distress NEURO: No focal deficits CV: Regular rate & rhythm, no murmurs, no edema PULM: Mild diffuse end expiratory wheezing, no work of breathing, on 3 L oxygen by nasal cannula ABD: Soft, non-distended, normoactive bowel sounds PSYCH: Alert, oriented x3 Results - Labs Lab/Micro Results: Lab Results-Last 24 Hours 12/18/23 12/18/23 12/18/23 Range/Units 17:20 17:20 17:20 WBC 10.2 H (3.98-10.04) x10^3/uL RBC 2.61 L (3.93-5.22) x10^6/uL Hgb 5.4 L* (11.2-15.7) g/dL Hct 20.0 L (34.1-44.9) % MCV 76.6 L (79.4-94.8) fL MCH 20.7 L (25.6-32.2) pg MCHC 27.0 L (32.2-35.5) g/dL RDW 20.2 H (11.7-14.4) % Plt Count 436 H (182-369) x10^3/uL MPV 9.7 (9.4-12.3) fL Gran % 91.5 H (34.0-71.1) % Immature Gran % (Auto) 0.5 H (0.001-0.429) % Nucleat RBC Rel Count 0.2 (0.00-0.2) % Eos # (Auto) 0.02 L (0.04-0.36) x10^3/uL Immature Gran # (Auto) 0.05 H (0.001-0.031) x10^3u/L Absolute Lymphs (auto) 0.45 L (1.18-3.74) x10^3/uL Absolute Monos (auto) 0.27 (0.24-0.86) x10^3/uL Absolute Nucleated RBC 0.02 H (0.00-0.012) x10^3u/L Lymphocytes % 4.4 L (19.3-51.7) % Monocytes % 2.7 L (4.7-12.5) % Eosinophils % 0.2 L (0.7-5.8) % Basophils % 0.7 (0.1-1.2) % Absolute Granulocytes 9.30 H (1.56-6.13) x10^3/uL Basophils # 0.07 (0.01-0.08) x10^3/uL Sodium 137 (135-145) mmol/L Potassium 3.3 L (3.5-5.1) mmol/L Chloride 107 (98-107) mmol/L Carbon Dioxide 24 (22-30) mmol/L Anion Gap 9.9 (5-15) MEQ/L BUN 7 (7-17) mg/dL Creatinine 0.75 (0.52-1.04) mg/dL Estimated GFR 87.8 ML/MIN Glucose 145 H (74-106) mg/dL Calcium 8.6 (8.4-10.2) mg/dL Total Bilirubin 0.20 (0.2-1.3) mg/dL AST 19 (14-36) U/L ALT 22 (0-35) U/L Alkaline Phosphatase 59 (38-126) U/L Troponin I < 0.012 (0.000-0.033) ng/mL Serum Total Protein 6.2 L (6.3-8.2) g/dL Albumin 3.4 L (3.5-5.0) g/dL Amylase 55 (30-110) U/L Lipase 40 (23-300) U/L Urine Color (Yellow) Urine Appearance (Clear) Urine pH (4.6-8.0) Ur Specific [place] (1.005-1.030) Urine Protein (Negative) Urine Glucose (UA) (Negative) mg/dL Urine Ketones (Negative) Urine Blood (Negative) Urine Nitrite (Negative) Urine Bilirubin (Negative) Urine Urobilinogen (0.2) mg/dL Ur Leukocyte Esterase (Negative) U Hyaline Cast (Auto) (0-2) /LPF Urine Microscopic RBC (0-5) /HPF Urine Microscopic WBC (0-5) /HPF Ur Epithelial Cells (None Seen) /HPF Urine Bacteria (None Seen) /HPF Urine Culture Reflexed (NO) ABO Group A Rh Factor POSITIVE Antibody Screen NEGATIVE (NEGATIVE) Crossmatch (COMPATIBLE) 12/18/23 12/18/23 12/18/23 Range/Units 17:20 17:20 17:20 WBC (3.98-10.04) x10^3/uL RBC (3.93-5.22) x10^6/uL Hgb (11.2-15.7) g/dL Hct (34.1-44.9) % MCV (79.4-94.8) fL MCH (25.6-32.2) pg MCHC (32.2-35.5) g/dL RDW (11.7-14.4) % Plt Count (182-369) x10^3/uL MPV (9.4-12.3) fL Gran % (34.0-71.1) % Immature Gran % (Auto) (0.001-0.429) % Nucleat RBC Rel Count (0.00-0.2) % Eos # (Auto) (0.04-0.36) x10^3/uL Immature Gran # (Auto) (0.001-0.031) x10^3u/L Absolute Lymphs (auto) (1.18-3.74) x10^3/uL Absolute Monos (auto) (0.24-0.86) x10^3/uL Absolute Nucleated RBC (0.00-0.012) x10^3u/L Lymphocytes % (19.3-51.7) % Monocytes % (4.7-12.5) % Eosinophils % (0.7-5.8) % Basophils % (0.1-1.2) % Absolute Granulocytes (1.56-6.13) x10^3/uL Basophils # (0.01-0.08) x10^3/uL Sodium (135-145) mmol/L Potassium (3.5-5.1) mmol/L Chloride (98-107) mmol/L Carbon Dioxide (22-30) mmol/L Anion Gap (5-15) MEQ/L BUN (7-17) mg/dL Creatinine (0.52-1.04) mg/dL Estimated GFR ML/MIN Glucose (74-106) mg/dL Calcium (8.4-10.2) mg/dL Total Bilirubin (0.2-1.3) mg/dL AST (14-36) U/L ALT (0-35) U/L Alkaline Phosphatase (38-126) U/L Troponin I (0.000-0.033) ng/mL Serum Total Protein (6.3-8.2) g/dL Albumin (3.5-5.0) g/dL Amylase (30-110) U/L Lipase (23-300) U/L Urine Color (Yellow) Urine Appearance (Clear) Urine pH (4.6-8.0) Ur Specific [place] (1.005-1.030) Urine Protein (Negative) Urine Glucose (UA) (Negative) mg/dL Urine Ketones (Negative) Urine Blood (Negative) Urine Nitrite (Negative) Urine Bilirubin (Negative) Urine Urobilinogen (0.2) mg/dL Ur Leukocyte Esterase (Negative) U Hyaline Cast (Auto) (0-2) /LPF Urine Microscopic RBC (0-5) /HPF Urine Microscopic WBC (0-5) /HPF Ur Epithelial Cells (None Seen) /HPF Urine Bacteria (None Seen) /HPF Urine Culture Reflexed (NO) ABO Group Rh Factor Antibody Screen (NEGATIVE) Crossmatch COMPATIBLE COMPATIBLE COMPATIBLE (COMPATIBLE) 12/18/23 Range/Units 20:27 WBC (3.98-10.04) x10^3/uL RBC (3.93-5.22) x10^6/uL Hgb (11.2-15.7) g/dL Hct (34.1-44.9) % MCV (79.4-94.8) fL MCH (25.6-32.2) pg MCHC (32.2-35.5) g/dL RDW (11.7-14.4) % Plt Count (182-369) x10^3/uL MPV (9.4-12.3) fL Gran % (34.0-71.1) % Immature Gran % (Auto) (0.001-0.429) % Nucleat RBC Rel Count (0.00-0.2) % Eos # (Auto) (0.04-0.36) x10^3/uL Immature Gran # (Auto) (0.001-0.031) x10^3u/L Absolute Lymphs (auto) (1.18-3.74) x10^3/uL Absolute Monos (auto) (0.24-0.86) x10^3/uL Absolute Nucleated RBC (0.00-0.012) x10^3u/L Lymphocytes % (19.3-51.7) % Monocytes % (4.7-12.5) % Eosinophils % (0.7-5.8) % Basophils % (0.1-1.2) % Absolute Granulocytes (1.56-6.13) x10^3/uL Basophils # (0.01-0.08) x10^3/uL Sodium (135-145) mmol/L Potassium (3.5-5.1) mmol/L Chloride (98-107) mmol/L Carbon Dioxide (22-30) mmol/L Anion Gap (5-15) MEQ/L BUN (7-17) mg/dL Creatinine (0.52-1.04) mg/dL Estimated GFR ML/MIN Glucose (74-106) mg/dL Calcium (8.4-10.2) mg/dL Total Bilirubin (0.2-1.3) mg/dL AST (14-36) U/L ALT (0-35) U/L Alkaline Phosphatase (38-126) U/L Troponin I (0.000-0.033) ng/mL Serum Total Protein (6.3-8.2) g/dL Albumin (3.5-5.0) g/dL Amylase (30-110) U/L Lipase (23-300) U/L Urine Color Yellow (Yellow) Urine Appearance Clear (Clear) Urine pH 5.0 (4.6-8.0) Ur Specific [place] >=1.030 A (1.005-1.030) Urine Protein Negative (Negative) Urine Glucose (UA) Negative (Negative) mg/dL Urine Ketones Negative (Negative) Urine Blood Negative (Negative) Urine Nitrite Negative (Negative) Urine Bilirubin Negative (Negative) Urine Urobilinogen 0.2 (0.2) mg/dL Ur Leukocyte Esterase Negative (Negative) U Hyaline Cast (Auto) NONE SEEN (0-2) /LPF Urine Microscopic RBC 0-2 (0-5) /HPF Urine Microscopic WBC 0-2 (0-5) /HPF Ur Epithelial Cells None Seen (None Seen) /HPF Urine Bacteria None Seen (None Seen) /HPF Urine Culture Reflexed NO (NO) ABO Group Rh Factor Antibody Screen (NEGATIVE) Crossmatch (COMPATIBLE) - Radiology Impressions Radiology Exams & Impressions: Radiology Procedures Category Date Time Status ABDOMEN AND PELVIS W CONTRAST [CT] Stat Exams 12/18/23 16:[address] abdomen/pelvis: Moderate hiatal hernia but no acute changes. Unchanged from prior CT. Assessment/Plan (1) Symptomatic anemia Current Visit: Yes Status: Chronic Assessment & Plan: 68-year-old with a history of COPD, chronic hypoxic respiratory failure, and recurrent iron-deficiency anemia, here with recurrent anemia. ## Chronic iron deficiency anemia patient has had multiple admissions with similar complaints, and again she is found to have hemoglobin of 5. She still denies any melena or hematochezia to suggest cause of the anemia. She has reportedly undergone bone marrow biopsy and upper and lower endoscopy, with no cause found. Her anemia is microcytic, and her last iron studies from March 2022 were consistent with iron deficiency. Transfused 2 units PRBCs Check iron levels, reticulocyte count Repeat CBC in the morning ## COPD, chronic hypoxic respiratory failure patient remains on her home 3 L oxygen by nasal cannula. She has some mild wheezing on exam currently. Continue Advair Add PRN DuoNeb q.6 hours ## Anxiety Continue home Seroquel 300 QHS, and Klonopin ## Hypokalemia Give K-Dur 40 mg p.o. x 1 Repeat BMP, magnesium in the morning CODE STATUS: Full code Prophylaxis: Heparin subcu Diet: Regular Dispo: Admit under observation, expect discharge to home after transfusion Code(s): D64.9 - ANEMIA, UNSPECIFIED Telemedicine Encounter - Telemedicine Encounter Telemedicine Encounter: "The entirety of this encounter was performed via Telemedicine" This visit was performed using real-time audio and video connection between my location and thepatients locationwith the assistance of a surrogateat the patients location. Written or verbal consent was obtained from the patient/guardian to perform this visit [email or web address]. Any patient questions regarding the telemedicine interaction were answered.
[2023-12-18] MEDS ORDERED: FLUTICASONE-SALMETEROL 250-50 IH SCH (22:00)
[2023-12-18] MEDS: Neurontin PO SCH (22:17)
[2023-12-18] MEDS: Klor Con PO ONE (22:17)
[2023-12-18] MEDS: Seroquel 100 MG PO SCH (22:17)
[2023-12-18] MEDS: Zanaflex 4 MG PO SCH (22:17)
[2023-12-18 22:26] LABS: Slide Review 1 YES
[2023-12-18] MEDS ORDERED: Tums EX 750 MG ONE (23:16)
[2023-12-18] MEDS: HEPARIN 5000 UNITS/0.5 ML (HIGH RISK MED) SQ SCH (23:18)
[2023-12-18] MEDS: Tums EX 750 MG PO PRN (23:24)
[2023-12-18] MEDS: DUONEB 0.5-3 MG/3 ml Neb IH PRN (23:26)
[2023-12-18] MEDS: KLONOPIN PO SCH (23:34)
[2023-12-19 05:41] LABS: Hemoglobin 9.1 g/dL (11.2-15.7); Mean Cell Volume 81.7 fL (79.4-94.8); Mean Corpuscular Hemoglobin 24.8 pg (25.6-32.2); Mean Corpuscular Hgb Concent. 30.3 g/dL (32.2-35.5); Mean Platelet Volume 9.4 fL (9.4-12.3); Platelet Count 293 x10^3/uL (182-369); Red Blood Count 3.67 x10^6/uL (3.93-5.22); Red Cell Distribution Width 17.6 % (11.7-14.4); White Blood Count 5.4 x10^3/uL (3.98-10.04)
[2023-12-19 05:56] LABS: ANION GAP 9.1 MEQ/L (5-15); Calcium 8.9 mg/dL (8.4-10.2); Creatinine 1 0.74 mg/dL (0.52-1.04); EST GLOMERULAR FILTRATION RATE 89.2 ML/MIN; Potassium 3.9 mmol/L (3.5-5.1)
[2023-12-19] MEDS ORDERED: FLUTICASONE-SALMETEROL 250-50 IH SCH (07:00)
[2023-12-19 07:36] LABS: RETICULOCYTE % 3.9 % (0.5-1.7); RETICULOCYTE HEMOGLOBIN 16.2 pg (28-36.6)
[2023-12-19 07:56] LABS: Iron 25 ug/dL (37-170); TIBC 389 ug/dL (265-462)
[2023-12-19] MEDS ORDERED: NON-FORMULARY ITEM (Gabapentin [Gabapentin] 600 MG Tablet) PO SCH (08:00)
[2023-12-19 08:03] LABS: Iron Saturation 6 % (20-39)
[2023-12-19] MEDS: Advair Hfa 230/21 Mcg COMMON CANISTER IH SCH (08:18)
[2023-12-19] MEDS: Imdur 30 MG PO SCH (08:47)
[2023-12-19] MEDS: SYNTHROID 25 MCG PO SCH (08:47)
[2023-12-19] MEDS: ZOLOFT 50 MG TABLET PO SCH (08:47)
[2023-12-19] MEDS: Protonix 40MG Tablet PO SCH (08:47)
[2023-12-19] MEDS: Neurontin PO SCH (08:47)
[2023-12-19] MEDS: THEOPHYLLINE ER 24HR PO SCH (08:48)
[2023-12-19 09:39] LABS: INFLUENZA A NEGATIVE (NEGATIVE); INFLUENZA B NEGATIVE (NEGATIVE); RESPIRATORY SYNCTIAL VIRUS NEGATIVE (NEGATIVE); SARS-CoV-2 Xpert Express NEGATIVE (NEGATIVE)
[2023-12-19] MEDS ORDERED: NON-FORMULARY ITEM (Theophylline Anhydrous [Theophylline Er] 300 MG Tab.Er.12h) PO SCH (10:00)
[2023-12-19] MEDS ORDERED: NON-FORMULARY ITEM (Omeprazole [Omeprazole] 40 MG Capsule.Dr) PO SCH (10:00)
[2023-12-19] MEDS ORDERED: NON-FORMULARY ITEM (Sertraline Hcl 100 Mg [Zoloft 100 Mg] 100 MG Tab) PO SCH (10:00)
--- NOTE | 2023-12-19 10:26 | PCM.NOTE ---
Date and Time: 12/19/23 1021 Subjective Assessment: HPI: 68-year-old woman with a history of COPD, chronic hypoxic respiratory failure on 3 L oxygen, and recurrent persistent microcytic anemia, admitted 12/18/23 with symptomatic anemia and abdominal pain. Patient has had multiple admissions with symptomatic anemia, usually with abdominal pain and other vague symptoms. She has reportedly undergone bone marrow biopsy and upper and lower endoscopy with no etiology found. On presentation she had complaints of one day of periumbilical diffuse sharp abdominal pain, associated with nausea and headache, worse with eating. Patient notes that she has chronic dyspnea that is unchanged, and remains on her baseline 3 L oxygen. She denies chest pain. 12/19/23: Met with patient bedside. Endorses that she is "achy all over" with a headache, congestion, and sore throat - she reports this has been going on for several days. Her abdominal pain has resolved. She received 2 units of blood and hgb is now stable. COVID/FLU/RSV negative. Strep and cxr pending. She does not feel that she can be discharged today. Denies fever,cough,cp, abdominal pain, dizziness, N/V/D. <ROSA GONZÁLES - Last Filed: 12/19/23 10:21> Date and Time: 12/19/237 <MADHURI ARNDT - Last Filed: 12/19/23 19:32> - Review of Systems Constitutional: Weakness Eyes: No Symptoms Ears, Nose, & Throat: Nose Congestion, Throat Pain Respiratory: Short Of Breath Cardiac: No Symptoms Abdominal/Gastrointestinal: No Symptoms Genitourinary Symptoms: No Symptoms Musculoskeletal: No Symptoms Skin: No Symptoms Neurological: Headache Psychological: No Symptoms Endocrine: No Symptoms Hematologic/Lymphatic: No Symptoms Immunological/Allergic: No Symptoms <ROSA GONZÁLES - Last Filed: 12/19/23 10:21> Objective Exam General Appearance: no apparent distress Neurologic Exam: alert, oriented x 3, cooperative Skin Exam: normal color Eye Exam: PERRL Ears, Nose, Throat Exam: normal ENT inspection Neck Exam: normal inspection Respiratory Exam: crackles/rales Cardiovascular Exam: regular rate/rhythm, normal heart sounds Gastrointestinal/Abdomen Exam: soft, normal bowel sounds Extremity Exam: normal inspection Back Exam: normal inspection Pelvic Exam: deferred Rectal Exam: deferred <ROSA GONZÁLES - Last Filed: 12/19/23 10:21> Objective Data Vital Signs: Vital Signs - 24 hr Temp Pulse Resp BP BP Pulse Ox 12/19/23 08:21 88 20 99 12/19/23 08:00 97.2 F 88 20 140/65 99 12/19/23 04:00 97.1 F 75 120/59 99 12/18/23 23:35 97.3 F 101 H 20 111/53 100 12/18/23 23:26 101 H 18 100 12/18/23 21:36 85 18 100 12/18/23 20:00 97.7 F 88 20 110/53 100 12/18/23 19:51 98.0 F 91 H 22 99/54 100 12/18/23 17:55 100 12/18/23 17:45 94 H 25 H 123/60 100 12/18/23 17:30 97 H 25 H 116/60 100 12/18/23 17:00 99 H 21 107/47 98 12/18/23 16:45 100 H 25 H 113/56 100 12/18/23 16:33 98.6 F 106 H 20 136/70 100 12/18/23 16:31 103 H 26 H 136/70 100 Pain Assessment - Last Documented Pain Intensity 10 Pain Scale Used 0-10 Pain Scale Intake and Output: Intake & Output 12/16/23 12/17/23 12/18/23 12/19/23 11:59 11:59 11:59 11:59 Intake Total 2640 Output Total 500 Balance 2140 Weight 69.3 kg Lab Results: Lab Results-Last 24 Hours 12/18/23 12/18/23 12/18/23 Range/Units 17:20 17:20 17:20 WBC 10.2 H (3.98-10.04) x10^3/uL RBC 2.61 L (3.93-5.22) x10^6/uL Hgb 5.4 L* (11.2-15.7) g/dL Hct 20.0 L (34.1-44.9) % MCV 76.6 L (79.4-94.8) fL MCH 20.7 L (25.6-32.2) pg MCHC 27.0 L (32.2-35.5) g/dL RDW 20.2 H (11.7-14.4) % Plt Count 436 H (182-369) x10^3/uL MPV 9.7 (9.4-12.3) fL Gran % 91.5 H (34.0-71.1) % Immature Gran % (Auto) 0.5 H (0.001-0.429) % Reticulocyte % (Auto) Nucleat RBC Rel Count 0.2 (0.00-0.2) % Eos # (Auto) 0.02 L (0.04-0.36) x10^3/uL Immature Gran # (Auto) 0.05 H (0.001-0.031) x10^3u/L Absolute Lymphs (auto) 0.45 L (1.18-3.74) x10^3/uL Absolute Monos (auto) 0.27 (0.24-0.86) x10^3/uL Absolute Nucleated RBC 0.02 H (0.00-0.012) x10^3u/L Lymphocytes % 4.4 L (19.3-51.7) % Monocytes % 2.7 L (4.7-12.5) % Eosinophils % 0.2 L (0.7-5.8) % Basophils % 0.7 (0.1-1.2) % Absolute Granulocytes 9.30 H (1.56-6.13) x10^3/uL Basophils # 0.07 (0.01-0.08) x10^3/uL Absolute Retic Retic Hgb Content Sodium 137 (135-145) mmol/L Potassium 3.3 L (3.5-5.1) mmol/L Chloride 107 (98-107) mmol/L Carbon Dioxide 24 (22-30) mmol/L Anion Gap 9.9 (5-15) MEQ/L BUN 7 (7-17) mg/dL Creatinine 0.75 (0.52-1.04) mg/dL Estimated GFR 87.8 ML/MIN Glucose 145 H (74-106) mg/dL Calcium 8.6 (8.4-10.2) mg/dL Magnesium (1.6-2.3) mg/dL Iron (37-170) ug/dL TIBC (265-462) ug/dL Iron Saturation (20-39) % Total Bilirubin 0.20 (0.2-1.3) mg/dL AST 19 (14-36) U/L ALT 22 (0-35) U/L Alkaline Phosphatase 59 (38-126) U/L Troponin I < 0.012 (0.000-0.033) ng/mL Serum Total Protein 6.2 L (6.3-8.2) g/dL Albumin 3.4 L (3.5-5.0) g/dL Amylase 55 (30-110) U/L Lipase 40 (23-300) U/L Urine Color (Yellow) Urine Appearance (Clear) Urine pH (4.6-8.0) Ur Specific [place] (1.005-1.030) Urine Protein (Negative) Urine Glucose (UA) (Negative) mg/dL Urine Ketones (Negative) Urine Blood (Negative) Urine Nitrite (Negative) Urine Bilirubin (Negative) Urine Urobilinogen (0.2) mg/dL Ur Leukocyte Esterase (Negative) U Hyaline Cast (Auto) (0-2) /LPF Urine Microscopic RBC (0-5) /HPF Urine Microscopic WBC (0-5) /HPF Ur Epithelial Cells (None Seen) /HPF Urine Bacteria (None Seen) /HPF Urine Culture Reflexed (NO) Influenza Type A Ag (NEGATIVE) Influenza Type B Ag (NEGATIVE) RSV (PCR) (NEGATIVE) SARS-CoV-2 (PCR) (NEGATIVE) Slides for Path Review YES ABO Group A Rh Factor POSITIVE Antibody Screen NEGATIVE (NEGATIVE) Crossmatch (COMPATIBLE) 12/18/23 12/18/23 12/18/23 Range/Units 17:20 17:20 17:20 WBC (3.98-10.04) x10^3/uL RBC (3.93-5.22) x10^6/uL Hgb (11.2-15.7) g/dL Hct (34.1-44.9) % MCV (79.4-94.8) fL MCH (25.6-32.2) pg MCHC (32.2-35.5) g/dL RDW (11.7-14.4) % Plt Count (182-369) x10^3/uL MPV (9.4-12.3) fL Gran % (34.0-71.1) % Immature Gran % (Auto) (0.001-0.429) % Reticulocyte % (Auto) Nucleat RBC Rel Count (0.00-0.2) % Eos # (Auto) (0.04-0.36) x10^3/uL Immature Gran # (Auto) (0.001-0.031) x10^3u/L Absolute Lymphs (auto) (1.18-3.74) x10^3/uL Absolute Monos (auto) (0.24-0.86) x10^3/uL Absolute Nucleated RBC (0.00-0.012) x10^3u/L Lymphocytes % (19.3-51.7) % Monocytes % (4.7-12.5) % Eosinophils % (0.7-5.8) % Basophils % (0.1-1.2) % Absolute Granulocytes (1.56-6.13) x10^3/uL Basophils # (0.01-0.08) x10^3/uL Absolute Retic Retic Hgb Content Sodium (135-145) mmol/L Potassium (3.5-5.1) mmol/L Chloride (98-107) mmol/L Carbon Dioxide (22-30) mmol/L Anion Gap (5-15) MEQ/L BUN (7-17) mg/dL Creatinine (0.52-1.04) mg/dL Estimated GFR ML/MIN Glucose (74-106) mg/dL Calcium (8.4-10.2) mg/dL Magnesium (1.6-2.3) mg/dL Iron (37-170) ug/dL TIBC (265-462) ug/dL Iron Saturation (20-39) % Total Bilirubin (0.2-1.3) mg/dL AST (14-36) U/L ALT (0-35) U/L Alkaline Phosphatase (38-126) U/L Troponin I (0.000-0.033) ng/mL Serum Total Protein (6.3-8.2) g/dL Albumin (3.5-5.0) g/dL Amylase (30-110) U/L Lipase (23-300) U/L Urine Color (Yellow) Urine Appearance (Clear) Urine pH (4.6-8.0) Ur Specific [place] (1.005-1.030) Urine Protein (Negative) Urine Glucose (UA) (Negative) mg/dL Urine Ketones (Negative) Urine Blood (Negative) Urine Nitrite (Negative) Urine Bilirubin (Negative) Urine Urobilinogen (0.2) mg/dL Ur Leukocyte Esterase (Negative) U Hyaline Cast (Auto) (0-2) /LPF Urine Microscopic RBC (0-5) /HPF Urine Microscopic WBC (0-5) /HPF Ur Epithelial Cells (None Seen) /HPF Urine Bacteria (None Seen) /HPF Urine Culture Reflexed (NO) Influenza Type A Ag (NEGATIVE) Influenza Type B Ag (NEGATIVE) RSV (PCR) (NEGATIVE) SARS-CoV-2 (PCR) (NEGATIVE) Slides for Path Review ABO Group Rh Factor Antibody Screen (NEGATIVE) Crossmatch COMPATIBLE COMPATIBLE COMPATIBLE (COMPATIBLE) 12/18/23 12/19/23 12/19/23 Range/Units 20:27 05:40 05:40 WBC 5.4 (3.98-10.04) x10^3/uL RBC 3.67 L (3.93-5.22) x10^6/uL Hgb 9.1 L D (11.2-15.7) g/dL Hct 30.0 L (34.1-44.9) % MCV 81.7 D (79.4-94.8) fL MCH 24.8 L (25.6-32.2) pg MCHC 30.3 L (32.2-35.5) g/dL RDW 17.6 H (11.7-14.4) % Plt Count 293 (182-369) x10^3/uL MPV 9.4 (9.4-12.3) fL Gran % (34.0-71.1) % Immature Gran % (Auto) (0.001-0.429) % Reticulocyte % (Auto) Cancelled Nucleat RBC Rel Count (0.00-0.2) % Eos # (Auto) (0.04-0.36) x10^3/uL Immature Gran # (Auto) (0.001-0.031) x10^3u/L Absolute Lymphs (auto) (1.18-3.74) x10^3/uL Absolute Monos (auto) (0.24-0.86) x10^3/uL Absolute Nucleated RBC (0.00-0.012) x10^3u/L Lymphocytes % (19.3-51.7) % Monocytes % (4.7-12.5) % Eosinophils % (0.7-5.8) % Basophils % (0.1-1.2) % Absolute Granulocytes (1.56-6.13) x10^3/uL Basophils # (0.01-0.08) x10^3/uL Absolute Retic Cancelled Retic Hgb Content Cancelled Sodium 142 (135-145) mmol/L Potassium 3.9 (3.5-5.1) mmol/L Chloride 110 H (98-107) mmol/L Carbon Dioxide 26 (22-30) mmol/L Anion Gap 9.1 (5-15) MEQ/L BUN 7 (7-17) mg/dL Creatinine 0.74 (0.52-1.04) mg/dL Estimated GFR 89.2 ML/MIN Glucose 106 (74-106) mg/dL Calcium 8.9 (8.4-10.2) mg/dL Magnesium (1.6-2.3) mg/dL Iron (37-170) ug/dL TIBC (265-462) ug/dL Iron Saturation (20-39) % Total Bilirubin (0.2-1.3) mg/dL AST (14-36) U/L ALT (0-35) U/L Alkaline Phosphatase (38-126) U/L Troponin I (0.000-0.033) ng/mL Serum Total Protein (6.3-8.2) g/dL Albumin (3.5-5.0) g/dL Amylase (30-110) U/L Lipase (23-300) U/L Urine Color Yellow (Yellow) Urine Appearance Clear (Clear) Urine pH 5.0 (4.6-8.0) Ur Specific [place] >=1.030 A (1.005-1.030) Urine Protein Negative (Negative) Urine Glucose (UA) Negative (Negative) mg/dL Urine Ketones Negative (Negative) Urine Blood Negative (Negative) Urine Nitrite Negative (Negative) Urine Bilirubin Negative (Negative) Urine Urobilinogen 0.2 (0.2) mg/dL Ur Leukocyte Esterase Negative (Negative) U Hyaline Cast (Auto) NONE SEEN (0-2) /LPF Urine Microscopic RBC 0-2 (0-5) /HPF Urine Microscopic WBC 0-2 (0-5) /HPF Ur Epithelial Cells None Seen (None Seen) /HPF Urine Bacteria None Seen (None Seen) /HPF Urine Culture Reflexed NO (NO) Influenza Type A Ag (NEGATIVE) Influenza Type B Ag (NEGATIVE) RSV (PCR) (NEGATIVE) SARS-CoV-2 (PCR) (NEGATIVE) Slides for Path Review ABO Group Rh Factor Antibody Screen (NEGATIVE) Crossmatch (COMPATIBLE) 12/19/23 12/19/23 12/19/23 Range/Units 05:40 05:40 05:40 WBC (3.98-10.04) x10^3/uL RBC (3.93-5.22) x10^6/uL Hgb (11.2-15.7) g/dL Hct (34.1-44.9) % MCV (79.4-94.8) fL MCH (25.6-32.2) pg MCHC (32.2-35.5) g/dL RDW (11.7-14.4) % Plt Count (182-369) x10^3/uL MPV (9.4-12.3) fL Gran % (34.0-71.1) % Immature Gran % (Auto) (0.001-0.429) % Reticulocyte % (Auto) 3.9 H Nucleat RBC Rel Count (0.00-0.2) % Eos # (Auto) (0.04-0.36) x10^3/uL Immature Gran # (Auto) (0.001-0.031) x10^3u/L Absolute Lymphs (auto) (1.18-3.74) x10^3/uL Absolute Monos (auto) (0.24-0.86) x10^3/uL Absolute Nucleated RBC (0.00-0.012) x10^3u/L Lymphocytes % (19.3-51.7) % Monocytes % (4.7-12.5) % Eosinophils % (0.7-5.8) % Basophils % (0.1-1.2) % Absolute Granulocytes (1.56-6.13) x10^3/uL Basophils # (0.01-0.08) x10^3/uL Absolute Retic 0.1009 H Retic Hgb Content 16.2 L Sodium (135-145) mmol/L Potassium (3.5-5.1) mmol/L Chloride (98-107) mmol/L Carbon Dioxide (22-30) mmol/L Anion Gap (5-15) MEQ/L BUN (7-17) mg/dL Creatinine (0.52-1.04) mg/dL Estimated GFR ML/MIN Glucose (74-106) mg/dL Calcium (8.4-10.2) mg/dL Magnesium 2.2 (1.6-2.3) mg/dL Iron 25 L (37-170) ug/dL TIBC 389 (265-462) ug/dL Iron Saturation 6 L (20-39) % Total Bilirubin (0.2-1.3) mg/dL AST (14-36) U/L ALT (0-35) U/L Alkaline Phosphatase (38-126) U/L Troponin I (0.000-0.033) ng/mL Serum Total Protein (6.3-8.2) g/dL Albumin (3.5-5.0) g/dL Amylase (30-110) U/L Lipase (23-300) U/L Urine Color (Yellow) Urine Appearance (Clear) Urine pH (4.6-8.0) Ur Specific [place] (1.005-1.030) Urine Protein (Negative) Urine Glucose (UA) (Negative) mg/dL Urine Ketones (Negative) Urine Blood (Negative) Urine Nitrite (Negative) Urine Bilirubin (Negative) Urine Urobilinogen (0.2) mg/dL Ur Leukocyte Esterase (Negative) U Hyaline Cast (Auto) (0-2) /LPF Urine Microscopic RBC (0-5) /HPF Urine Microscopic WBC (0-5) /HPF Ur Epithelial Cells (None Seen) /HPF Urine Bacteria (None Seen) /HPF Urine Culture Reflexed (NO) Influenza Type A Ag (NEGATIVE) Influenza Type B Ag (NEGATIVE) RSV (PCR) (NEGATIVE) SARS-CoV-2 (PCR) (NEGATIVE) Slides for Path Review ABO Group Rh Factor Antibody Screen (NEGATIVE) Crossmatch (COMPATIBLE) 12/19/23 Range/Units 08:44 WBC (3.98-10.04) x10^3/uL RBC (3.93-5.22) x10^6/uL Hgb (11.2-15.7) g/dL Hct (34.1-44.9) % MCV (79.4-94.8) fL MCH (25.6-32.2) pg MCHC (32.2-35.5) g/dL RDW (11.7-14.4) % Plt Count (182-369) x10^3/uL MPV (9.4-12.3) fL Gran % (34.0-71.1) % Immature Gran % (Auto) (0.001-0.429) % Reticulocyte % (Auto) Nucleat RBC Rel Count (0.00-0.2) % Eos # (Auto) (0.04-0.36) x10^3/uL Immature Gran # (Auto) (0.001-0.031) x10^3u/L Absolute Lymphs (auto) (1.18-3.74) x10^3/uL Absolute Monos (auto) (0.24-0.86) x10^3/uL Absolute Nucleated RBC (0.00-0.012) x10^3u/L Lymphocytes % (19.3-51.7) % Monocytes % (4.7-12.5) % Eosinophils % (0.7-5.8) % Basophils % (0.1-1.2) % Absolute Granulocytes (1.56-6.13) x10^3/uL Basophils # (0.01-0.08) x10^3/uL Absolute Retic Retic Hgb Content Sodium (135-145) mmol/L Potassium (3.5-5.1) mmol/L Chloride (98-107) mmol/L Carbon Dioxide (22-30) mmol/L Anion Gap (5-15) MEQ/L BUN (7-17) mg/dL Creatinine (0.52-1.04) mg/dL Estimated GFR ML/MIN Glucose (74-106) mg/dL Calcium (8.4-10.2) mg/dL Magnesium (1.6-2.3) mg/dL Iron (37-170) ug/dL TIBC (265-462) ug/dL Iron Saturation (20-39) % Total Bilirubin (0.2-1.3) mg/dL AST (14-36) U/L ALT (0-35) U/L Alkaline Phosphatase (38-126) U/L Troponin I (0.000-0.033) ng/mL Serum Total Protein (6.3-8.2) g/dL Albumin (3.5-5.0) g/dL Amylase (30-110) U/L Lipase (23-300) U/L Urine Color (Yellow) Urine Appearance (Clear) Urine pH (4.6-8.0) Ur Specific [place] (1.005-1.030) Urine Protein (Negative) Urine Glucose (UA) (Negative) mg/dL Urine Ketones (Negative) Urine Blood (Negative) Urine Nitrite (Negative) Urine Bilirubin (Negative) Urine Urobilinogen (0.2) mg/dL Ur Leukocyte Esterase (Negative) U Hyaline Cast (Auto) (0-2) /LPF Urine Microscopic RBC (0-5) /HPF Urine Microscopic WBC (0-5) /HPF Ur Epithelial Cells (None Seen) /HPF Urine Bacteria (None Seen) /HPF Urine Culture Reflexed (NO) Influenza Type A Ag NEGATIVE (NEGATIVE) Influenza Type B Ag NEGATIVE (NEGATIVE) RSV (PCR) NEGATIVE (NEGATIVE) SARS-CoV-2 (PCR) NEGATIVE (NEGATIVE) Slides for Path Review ABO Group Rh Factor Antibody Screen (NEGATIVE) Crossmatch (COMPATIBLE) Radiology Exams: Radiology Procedures Category Date Time Status ABDOMEN AND PELVIS W CONTRAST [CT] Stat Exams 12/18/23 16:54 Completed CHEST 1 VIEW (PORTABLE) Stat Exams 12/19/23 08:18 Taken <ROSA GONZÁLES - Last Filed: 12/19/23 10:21> Vital Signs: Vital Signs - 24 hr Temp Pulse Resp BP Pulse Ox 12/19/23 19:13 86 18 98 12/19/23 16:00 97.5 F 97 H 19 104/52 99 12/19/23 12:00 97.8 F 86 19 102/54 99 12/19/23 08:21 88 20 99 12/19/23 08:00 97.2 F 88 20 140/65 99 12/19/23 04:00 97.1 F 75 120/59 99 12/18/23 23:35 97.3 F 101 H 20 111/53 100 12/18/23 23:26 101 H 18 100 12/18/23 21:36 85 18 100 12/18/23 20:00 97.7 F 88 20 110/53 100 12/18/23 19:51 98.0 F 91 H 22 99/54 100 Pain Assessment - Last Documented Pain Intensity 10 Pain Scale Used 0-10 Pain Scale Intake and Output: Intake & Output 12/17/23 12/18/23 12/19/23 12/20/23 11:59 11:59 11:59 11:59 Intake Total 2640 600 Output Total 500 Balance 2140 600 Weight 69.3 kg Lab Results: Lab Results-Last 24 Hours 12/18/23 12/18/23 12/18/23 Range/Units 17:20 17:20 17:20 WBC (3.98-10.04) x10^3/uL RBC (3.93-5.22) x10^6/uL Hgb (11.2-15.7) g/dL Hct (34.1-44.9) % MCV (79.4-94.8) fL MCH (25.6-32.2) pg MCHC (32.2-35.5) g/dL RDW (11.7-14.4) % Plt Count (182-369) x10^3/uL MPV (9.4-12.3) fL Reticulocyte % (Auto) Absolute Retic Retic Hgb Content Sodium (135-145) mmol/L Potassium (3.5-5.1) mmol/L Chloride (98-107) mmol/L Carbon Dioxide (22-30) mmol/L Anion Gap (5-15) MEQ/L BUN (7-17) mg/dL Creatinine (0.52-1.04) mg/dL Estimated GFR ML/MIN Glucose (74-106) mg/dL Calcium (8.4-10.2) mg/dL Magnesium (1.6-2.3) mg/dL Iron (37-170) ug/dL TIBC (265-462) ug/dL Iron Saturation (20-39) % Urine Color (Yellow) Urine Appearance (Clear) Urine pH (4.6-8.0) Ur Specific [place] (1.005-1.030) Urine Protein (Negative) Urine Glucose (UA) (Negative) mg/dL Urine Ketones (Negative) Urine Blood (Negative) Urine Nitrite (Negative) Urine Bilirubin (Negative) Urine Urobilinogen (0.2) mg/dL Ur Leukocyte Esterase (Negative) U Hyaline Cast (Auto) (0-2) /LPF Urine Microscopic RBC (0-5) /HPF Urine Microscopic WBC (0-5) /HPF Ur Epithelial Cells (None Seen) /HPF Urine Bacteria (None Seen) /HPF Urine Culture Reflexed (NO) Influenza Type A Ag (NEGATIVE) Influenza Type B Ag (NEGATIVE) RSV (PCR) (NEGATIVE) SARS-CoV-2 (PCR) (NEGATIVE) Group A Strep Antibody (NEGATIVE) Slides for Path Review YES ABO Group A Rh Factor POSITIVE Antibody Screen NEGATIVE (NEGATIVE) Crossmatch COMPATIBLE (COMPATIBLE) 12/18/23 12/18/23 12/18/23 Range/Units 17:20 17:20 20:27 WBC (3.98-10.04) x10^3/uL RBC (3.93-5.22) x10^6/uL Hgb (11.2-15.7) g/dL Hct (34.1-44.9) % MCV (79.4-94.8) fL MCH (25.6-32.2) pg MCHC (32.2-35.5) g/dL RDW (11.7-14.4) % Plt Count (182-369) x10^3/uL MPV (9.4-12.3) fL Reticulocyte % (Auto) Absolute Retic Retic Hgb Content Sodium (135-145) mmol/L Potassium (3.5-5.1) mmol/L Chloride (98-107) mmol/L Carbon Dioxide (22-30) mmol/L Anion Gap (5-15) MEQ/L BUN (7-17) mg/dL Creatinine (0.52-1.04) mg/dL Estimated GFR ML/MIN Glucose (74-106) mg/dL Calcium (8.4-10.2) mg/dL Magnesium (1.6-2.3) mg/dL Iron (37-170) ug/dL TIBC (265-462) ug/dL Iron Saturation (20-39) % Urine Color Yellow (Yellow) Urine Appearance Clear (Clear) Urine pH 5.0 (4.6-8.0) Ur Specific [place] >=1.030 A (1.005-1.030) Urine Protein Negative (Negative) Urine Glucose (UA) Negative (Negative) mg/dL Urine Ketones Negative (Negative) Urine Blood Negative (Negative) Urine Nitrite Negative (Negative) Urine Bilirubin Negative (Negative) Urine Urobilinogen 0.2 (0.2) mg/dL Ur Leukocyte Esterase Negative (Negative) U Hyaline Cast (Auto) NONE SEEN (0-2) /LPF Urine Microscopic RBC 0-2 (0-5) /HPF Urine Microscopic WBC 0-2 (0-5) /HPF Ur Epithelial Cells None Seen (None Seen) /HPF Urine Bacteria None Seen (None Seen) /HPF Urine Culture Reflexed NO (NO) Influenza Type A Ag (NEGATIVE) Influenza Type B Ag (NEGATIVE) RSV (PCR) (NEGATIVE) SARS-CoV-2 (PCR) (NEGATIVE) Group A Strep Antibody (NEGATIVE) Slides for Path Review ABO Group Rh Factor Antibody Screen (NEGATIVE) Crossmatch COMPATIBLE COMPATIBLE (COMPATIBLE) 12/19/23 12/19/23 12/19/23 Range/Units 05:40 05:40 05:40 WBC 5.4 (3.98-10.04) x10^3/uL RBC 3.67 L (3.93-5.22) x10^6/uL Hgb 9.1 L D (11.2-15.7) g/dL Hct 30.0 L (34.1-44.9) % MCV 81.7 D (79.4-94.8) fL MCH 24.8 L (25.6-32.2) pg MCHC 30.3 L (32.2-35.5) g/dL RDW 17.6 H (11.7-14.4) % Plt Count 293 (182-369) x10^3/uL MPV 9.4 (9.4-12.3) fL Reticulocyte % (Auto) Cancelled Absolute Retic Cancelled Retic Hgb Content Cancelled Sodium 142 (135-145) mmol/L Potassium 3.9 (3.5-5.1) mmol/L Chloride 110 H (98-107) mmol/L Carbon Dioxide 26 (22-30) mmol/L Anion Gap 9.1 (5-15) MEQ/L BUN 7 (7-17) mg/dL Creatinine 0.74 (0.52-1.04) mg/dL Estimated GFR 89.2 ML/MIN Glucose 106 (74-106) mg/dL Calcium 8.9 (8.4-10.2) mg/dL Magnesium (1.6-2.3) mg/dL Iron 25 L (37-170) ug/dL TIBC 389 (265-462) ug/dL Iron Saturation 6 L (20-39) % Urine Color (Yellow) Urine Appearance (Clear) Urine pH (4.6-8.0) Ur Specific [place] (1.005-1.030) Urine Protein (Negative) Urine Glucose (UA) (Negative) mg/dL Urine Ketones (Negative) Urine Blood (Negative) Urine Nitrite (Negative) Urine Bilirubin (Negative) Urine Urobilinogen (0.2) mg/dL Ur Leukocyte Esterase (Negative) U Hyaline Cast (Auto) (0-2) /LPF Urine Microscopic RBC (0-5) /HPF Urine Microscopic WBC (0-5) /HPF Ur Epithelial Cells (None Seen) /HPF Urine Bacteria (None Seen) /HPF Urine Culture Reflexed (NO) Influenza Type A Ag (NEGATIVE) Influenza Type B Ag (NEGATIVE) RSV (PCR) (NEGATIVE) SARS-CoV-2 (PCR) (NEGATIVE) Group A Strep Antibody (NEGATIVE) Slides for Path Review ABO Group Rh Factor Antibody Screen (NEGATIVE) Crossmatch (COMPATIBLE) 12/19/23 12/19/23 12/19/23 Range/Units 05:40 05:40 08:44 WBC (3.98-10.04) x10^3/uL RBC (3.93-5.22) x10^6/uL Hgb (11.2-15.7) g/dL Hct (34.1-44.9) % MCV (79.4-94.8) fL MCH (25.6-32.2) pg MCHC (32.2-35.5) g/dL RDW (11.7-14.4) % Plt Count (182-369) x10^3/uL MPV (9.4-12.3) fL Reticulocyte % (Auto) 3.9 H Absolute Retic 0.1009 H Retic Hgb Content 16.2 L Sodium (135-145) mmol/L Potassium (3.5-5.1) mmol/L Chloride (98-107) mmol/L Carbon Dioxide (22-30) mmol/L Anion Gap (5-15) MEQ/L BUN (7-17) mg/dL Creatinine (0.52-1.04) mg/dL Estimated GFR ML/MIN Glucose (74-106) mg/dL Calcium (8.4-10.2) mg/dL Magnesium 2.2 (1.6-2.3) mg/dL Iron (37-170) ug/dL TIBC (265-462) ug/dL Iron Saturation (20-39) % Urine Color (Yellow) Urine Appearance (Clear) Urine pH (4.6-8.0) Ur Specific [place] (1.005-1.030) Urine Protein (Negative) Urine Glucose (UA) (Negative) mg/dL Urine Ketones (Negative) Urine Blood (Negative) Urine Nitrite (Negative) Urine Bilirubin (Negative) Urine Urobilinogen (0.2) mg/dL Ur Leukocyte Esterase (Negative) U Hyaline Cast (Auto) (0-2) /LPF Urine Microscopic RBC (0-5) /HPF Urine Microscopic WBC (0-5) /HPF Ur Epithelial Cells (None Seen) /HPF Urine Bacteria (None Seen) /HPF Urine Culture Reflexed (NO) Influenza Type A Ag NEGATIVE (NEGATIVE) Influenza Type B Ag NEGATIVE (NEGATIVE) RSV (PCR) NEGATIVE (NEGATIVE) SARS-CoV-2 (PCR) NEGATIVE (NEGATIVE) Group A Strep Antibody (NEGATIVE) Slides for Path Review ABO Group Rh Factor Antibody Screen (NEGATIVE) Crossmatch (COMPATIBLE) 12/19/23 Range/Units 10:12 WBC (3.98-10.04) x10^3/uL RBC (3.93-5.22) x10^6/uL Hgb (11.2-15.7) g/dL Hct (34.1-44.9) % MCV (79.4-94.8) fL MCH (25.6-32.2) pg MCHC (32.2-35.5) g/dL RDW (11.7-14.4) % Plt Count (182-369) x10^3/uL MPV (9.4-12.3) fL Reticulocyte % (Auto) Absolute Retic Retic Hgb Content Sodium (135-145) mmol/L Potassium (3.5-5.1) mmol/L Chloride (98-107) mmol/L Carbon Dioxide (22-30) mmol/L Anion Gap (5-15) MEQ/L BUN (7-17) mg/dL Creatinine (0.52-1.04) mg/dL Estimated GFR ML/MIN Glucose (74-106) mg/dL Calcium (8.4-10.2) mg/dL Magnesium (1.6-2.3) mg/dL Iron (37-170) ug/dL TIBC (265-462) ug/dL Iron Saturation (20-39) % Urine Color (Yellow) Urine Appearance (Clear) Urine pH (4.6-8.0) Ur Specific [place] (1.005-1.030) Urine Protein (Negative) Urine Glucose (UA) (Negative) mg/dL Urine Ketones (Negative) Urine Blood (Negative) Urine Nitrite (Negative) Urine Bilirubin (Negative) Urine Urobilinogen (0.2) mg/dL Ur Leukocyte Esterase (Negative) U Hyaline Cast (Auto) (0-2) /LPF Urine Microscopic RBC (0-5) /HPF Urine Microscopic WBC (0-5) /HPF Ur Epithelial Cells (None Seen) /HPF Urine Bacteria (None Seen) /HPF Urine Culture Reflexed (NO) Influenza Type A Ag (NEGATIVE) Influenza Type B Ag (NEGATIVE) RSV (PCR) (NEGATIVE) SARS-CoV-2 (PCR) (NEGATIVE) Group A Strep Antibody NOT DETECTED (NEGATIVE) Slides for Path Review ABO Group Rh Factor Antibody Screen (NEGATIVE) Crossmatch (COMPATIBLE) Radiology Exams: Radiology Procedures Category Date Time Status ABDOMEN AND PELVIS W CONTRAST [CT] Stat Exams 12/18/23 16:54 Completed CHEST 1 VIEW (PORTABLE) Stat Exams 12/19/23 08:18 Completed <MADHURI ARNDT - Last Filed: 12/19/23 19:32> Assessment/Plan (1) Symptomatic anemia Current Visit: Yes Status: Chronic Assessment & Plan: -transfused 2 units - hgb stable at 9.1 -Continue to monitor and replace if hgb <7 -Iron sat at 6% -ferrous sulfate - Patient of Dr. Salcido - will need f/u op -Denies hematuria, rectal bleeding, dark stools Code(s): D64.9 - ANEMIA, UNSPECIFIED (2) Abdominal pain Current Visit: Yes Status: Acute Qualifiers: Abdominal location: epigastric Qualified Code(s): R10.13 - Epigastric pain Assessment & Plan: -Unclear etiology - patient states pain has resolved today -CT negative for acute process -Exam is benign -Monitor clinically. -Protonix started Code(s): R10.9 - UNSPECIFIED ABDOMINAL PAIN (3) Iron deficiency anemia Current Visit: Yes Status: Acute Qualifiers: Iron deficiency anemia type: chronic blood loss Qualified Code(s): D50.0 - Iron deficiency anemia secondary to blood loss (chronic) Assessment & Plan: -see symptomatic anemia Code(s): D50.9 - IRON DEFICIENCY ANEMIA, UNSPECIFIED (4) Anxiety and depression Current Visit: No Status: Acute Assessment & Plan: -continue home klonopin, zoloft, seroquel Code(s): F41.9 - ANXIETY DISORDER, UNSPECIFIED; F32.A - DEPRESSION, UNSPECIFIED (5) COPD (chronic obstructive pulmonary disease) Current Visit: No Status: Acute Assessment & Plan: -Does not appear to be in exacerbation -at baseline oxygen 3L -continue Advair/DuoNeb prn (6) Hypokalemia Current Visit: No Status: Acute Assessment & Plan: -resolved Code(s): E87.6 - HYPOKALEMIA (7) Hypothyroid Current Visit: Yes Status: Acute Assessment & Plan: -continue home synthroid Code(s): E03.9 - HYPOTHYROIDISM, UNSPECIFIED (8) URI (upper respiratory infection) Current Visit: Yes Status: Acute Assessment & Plan: -COVID/FLU/RSV negative -strep pending -CXR pending CODE STATUS: Full code Prophylaxis: Heparin subcu Diet: Regular Dispo: tomorrow Code(s): J06.9 - ACUTE UPPER RESPIRATORY INFECTION, UNSPECIFIED <ROSA GONZÁLES - Last Filed: 12/19/23 10:21> JAIMIE Encounter - JAIMIE Encounter Attestation JAIMIE Encounter Attestation: "REILLY Redmond andhavediscussed pertinent aspects of their care with Rosa Rodriguez agree with the history, physical exam (any modifications based on my personal exam will be noted below), assessment, and plan as outlined in original note. Please see immediately below for my summary of findings and additional assessment and plan along with any meaningful corrections/explanations to the Subjective/Objective portions of the JAIMIE note will be noted." My portion of the encounter took place via telemedicine. -Patient with chronic severe anemia of unclear etiology (at least has iron deficiency), requiring frequent blood transfusions, with negative prior scopes and bone marrow biopsies, presented again with severe anemia. Hg has risen appropriately after transfusion however patient had multiple complaints today with headache, sore throat, lower abdominal pain and also required lasix for congestion. Will monitor for today. Anticipate discharge tomorrow. <MADHURI ARNDT - Last Filed: 12/19/23 19:32>
--- NOTE | 2023-12-19 15:13 | XRAY ---
CLINICAL HISTORY: SOB COMPARISON: CT dated 06/23/2023 was reviewed. TECHNIQUE: Frontal X-ray image of the chest was obtained in an anteroposterior (AP) supine view. FINDINGS: Image is in rotation toward left side Pulmonary Parenchyma: Adequate inflation of both lungs. The prominence of perihilar vascular markings is probably due to pulmonary vascular congestion No focal lesions, consolidations or collapses identified. No evidence of right pleural effusion or pleural thickening. Blunting of left costophrenic angle suggesting mild pleural effusion. Heart and Mediastinum: Heart size and shape are normal. No mediastinal widening or masses. No hilar or mediastinal lymphadenopathy. Curvilinear aortic arch calcification seen Bony Thorax: Bony thorax appears intact without fractures or deformities. Soft Tissues: Retrocardiac increased density noted suggesting hiatal hernia Soft tissues overlying the chest wall are unremarkable. IMPRESSION: 1. Mild prominence of perihilar vascular markings probably due to pulmonary vascular congestion. Interval new finding. Clinical correlation is suggested 2. Blunting of left costophrenic angle, suggesting mild pleural effusion.Interval new finding 3. Retrocardiac increased density suggesting large hiatal hernia. Stable finding Electronically Signed by: Yehuda Roberts MD. (12/19/2023 15:09:18 EDT)
[2023-12-19] MEDS: Lasix 40 MG/4 ML IV ONE (16:23)
[2023-12-19] MEDS: Flonase NASAL NS SCH (23:06)
[2023-12-20 04:50] LABS: Absolute Neutrophil Ct (ANC) 3.48 x10^3/uL (1.56-6.13); BASOPHIL % 0.8 % (0.1-1.2); Basophil (Absolute #) 0.04 x10^3/uL (0.01-0.08); Eosinophil % 1.3 % (0.7-5.8); Eosinophil (Absolute #) 0.07 x10^3/uL (0.04-0.36); Hematocrit 29.1 % (34.1-44.9); Hemoglobin 8.9 g/dL (11.2-15.7); IMMATURE GRAN # 0.01 x10^3u/L (0.001-0.031); IMMATURE GRAN % 0.2 % (0.001-0.429); Lymphocyte (Absolute #) 1.08 x10^3/uL (1.18-3.74); Lymphocytes % 20.8 % (19.3-51.7); Mean Cell Volume 81.5 fL (79.4-94.8); Mean Corpuscular Hemoglobin 24.9 pg (25.6-32.2); Mean Corpuscular Hgb Concent. 30.6 g/dL (32.2-35.5); Mean Platelet Volume 10.3 fL (9.4-12.3); Monocyte (Absolute #) 0.51 x10^3/uL (0.24-0.86); Monocytes % 9.8 % (4.7-12.5); Neutrophil % 67.1 % (34.0-71.1); Platelet Count 300 x10^3/uL (182-369); Red Blood Count 3.57 x10^6/uL (3.93-5.22); Red Cell Distribution Width 18.4 % (11.7-14.4); White Blood Count 5.2 x10^3/uL (3.98-10.04)
[2023-12-20 05:18] LABS: ALBUMIN 3.2 g/dL (3.5-5.0); ANION GAP 7.2 MEQ/L (5-15); BILIRUBIN,TOTAL 0.3 mg/dL (0.2-1.3); Calcium 9.2 mg/dL (8.4-10.2); Creatinine 1 0.75 mg/dL (0.52-1.04); EST GLOMERULAR FILTRATION RATE 87.8 ML/MIN; Potassium 3.8 mmol/L (3.5-5.1)
[2023-12-20 07:19] VITALS: RESP 16
--- NOTE | 2023-12-20 09:25 | PCM.DS ---
Discharge Summary Date of Admission: 12/18/23 18:31 Date of Discharge: 12/20/23 Admitting Physician: MADHURI ARNDT MD Primary Care Provider: NISHA,WEN Allergies Allergies morphine Allergy (Severe, Verified 11/10/23 23:55) Fainting oxycodone Allergy (Verified 11/10/23 23:55) Shortness of Breath Penicillins Allergy (Verified 11/10/23 23:55) oxymorphone Adverse Reaction (Severe, Verified 11/10/23 23:55) Fainting Coconut Adverse Reaction (Intermediate, Verified 11/10/23 23:55) Headache bupropion HCl [From Wellbutrin] Adverse Reaction (Mild, Verified 11/12/23 21:21) [facility] Summary - Hospital Course Hospital Course: HPI: 68-year-old woman with a history of COPD, chronic hypoxic respiratory failure on 3 L oxygen, and recurrent persistent microcytic anemia, admitted 12/18/23 with symptomatic anemia and abdominal pain. Patient has had multiple admissions with symptomatic anemia, usually with abdominal pain and other vague symptoms. She has reportedly undergone bone marrow biopsy and upper and lower endoscopy with no etiology found. On presentation she had complaints of one day of periumbilical diffuse sharp abdominal pain, associated with nausea and headache, worse with eating. This has resolved since admission. Patient notes that she has chronic dyspnea that is unchanged, and remains on her baseline 3 L oxygen @ 99%. She feels she is ready to go home today. Hgb 8.9 today. She will need close f/u OP with PCP and hematology to prevent readmission. She denies any further concerns at this time. 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 - Vitals & Intake/Output Vital Signs: Vital Signs Temperature 98.1 F 12/20/23 07:18 Pulse Rate 74 12/20/23 07:20 Respiratory Rate 16 12/20/23 07:20 Blood Pressure 113/56 12/20/23 07:18 O2 Sat by Pulse Oximetry 99 12/20/23 07:20 Intake & Output: Intake & Output 12/17/23 12/18/23 12/19/23 12/20/23 11:59 11:59 11:59 11:59 Intake Total 2640 1630 Output Total 500 300 Balance 2140 1330 Weight 69.3 kg - Lab Result Diagrams: 12/20/23 04:25 12/20/23 04:25 Lab Results-Last 24 Hrs: Lab Results-Last 24 Hours 12/19/23 12/19/23 12/20/23 Range/Units 08:44 10:12 04:25 WBC 5.2 (3.98-10.04) x10^3/uL RBC 3.57 L (3.93-5.22) x10^6/uL Hgb 8.9 L (11.2-15.7) g/dL Hct 29.1 L (34.1-44.9) % MCV 81.5 (79.4-94.8) fL MCH 24.9 L (25.6-32.2) pg MCHC 30.6 L (32.2-35.5) g/dL RDW 18.4 H (11.7-14.4) % Plt Count 300 (182-369) x10^3/uL MPV 10.3 (9.4-12.3) fL Gran % 67.1 (34.0-71.1) % Immature Gran % (Auto) 0.2 (0.001-0.429) % Nucleat RBC Rel Count 0.0 (0.00-0.2) % Eos # (Auto) 0.07 (0.04-0.36) x10^3/uL Immature Gran # (Auto) 0.01 (0.001-0.031) x10^3u/L Absolute Lymphs (auto) 1.08 L (1.18-3.74) x10^3/uL Absolute Monos (auto) 0.51 (0.24-0.86) x10^3/uL Absolute Nucleated RBC 0.00 (0.00-0.012) x10^3u/L Lymphocytes % 20.8 (19.3-51.7) % Monocytes % 9.8 (4.7-12.5) % Eosinophils % 1.3 (0.7-5.8) % Basophils % 0.8 (0.1-1.2) % Absolute Granulocytes 3.48 (1.56-6.13) x10^3/uL Basophils # 0.04 (0.01-0.08) x10^3/uL Sodium (135-145) mmol/L Potassium (3.5-5.1) mmol/L Chloride (98-107) mmol/L Carbon Dioxide (22-30) mmol/L Anion Gap (5-15) MEQ/L BUN (7-17) mg/dL Creatinine (0.52-1.04) mg/dL Estimated GFR ML/MIN Glucose (74-106) mg/dL Calcium (8.4-10.2) mg/dL Total Bilirubin (0.2-1.3) mg/dL AST (14-36) U/L ALT (0-35) U/L Alkaline Phosphatase (38-126) U/L Serum Total Protein (6.3-8.2) g/dL Albumin (3.5-5.0) g/dL Influenza Type A Ag NEGATIVE (NEGATIVE) Influenza Type B Ag NEGATIVE (NEGATIVE) RSV (PCR) NEGATIVE (NEGATIVE) SARS-CoV-2 (PCR) NEGATIVE (NEGATIVE) Group A Strep Antibody NOT DETECTED (NEGATIVE) 12/20/23 Range/Units 04:25 WBC (3.98-10.04) x10^3/uL RBC (3.93-5.22) x10^6/uL Hgb (11.2-15.7) g/dL Hct (34.1-44.9) % MCV (79.4-94.8) fL MCH (25.6-32.2) pg MCHC (32.2-35.5) g/dL RDW (11.7-14.4) % Plt Count (182-369) x10^3/uL MPV (9.4-12.3) fL Gran % (34.0-71.1) % Immature Gran % (Auto) (0.001-0.429) % Nucleat RBC Rel Count (0.00-0.2) % Eos # (Auto) (0.04-0.36) x10^3/uL Immature Gran # (Auto) (0.001-0.031) x10^3u/L Absolute Lymphs (auto) (1.18-3.74) x10^3/uL Absolute Monos (auto) (0.24-0.86) x10^3/uL Absolute Nucleated RBC (0.00-0.012) x10^3u/L Lymphocytes % (19.3-51.7) % Monocytes % (4.7-12.5) % Eosinophils % (0.7-5.8) % Basophils % (0.1-1.2) % Absolute Granulocytes (1.56-6.13) x10^3/uL Basophils # (0.01-0.08) x10^3/uL Sodium 140 (135-145) mmol/L Potassium 3.8 (3.5-5.1) mmol/L Chloride 107 (98-107) mmol/L Carbon Dioxide 30 (22-30) mmol/L Anion Gap 7.2 (5-15) MEQ/L BUN 16 (7-17) mg/dL Creatinine 0.75 (0.52-1.04) mg/dL Estimated GFR 87.8 ML/MIN Glucose 100 (74-106) mg/dL Calcium 9.2 (8.4-10.2) mg/dL Total Bilirubin 0.30 (0.2-1.3) mg/dL AST 21 (14-36) U/L ALT 12 (0-35) U/L Alkaline Phosphatase 59 (38-126) U/L Serum Total Protein 6.0 L (6.3-8.2) g/dL Albumin 3.2 L (3.5-5.0) g/dL Influenza Type A Ag (NEGATIVE) Influenza Type B Ag (NEGATIVE) RSV (PCR) (NEGATIVE) SARS-CoV-2 (PCR) (NEGATIVE) Group A Strep Antibody (NEGATIVE) - Radiology Exams Ordered Rad Exams-Entire Visit: Radiology Procedures Category Date Time Status ABDOMEN AND PELVIS W CONTRAST [CT] Stat Exams 12/18/23 16:54 Completed CHEST 1 VIEW (PORTABLE) Stat Exams 12/19/23 08:18 Completed - Procedures and Test Procedures and Tests throughout Hospitalization: Therapy Orders & Screens 12/18/23 21:35 Oxygen Nasal Cannula 3 lpm Comment: Diagnosis: abdominal pain Respiratory Therapy Assessment DAILY Comment: Diagnosis: abdominal pain Smoking Cessation Education ONCE Comment: Diagnosis: abdominal pain Smoking Status: Current every day smoker How long have you smoked: 40 years Have you smoked in the past 12 months: Yes Approximately how many cigarettes per day: 1 pack/day Do you dip or chew tobacco: No If,Former Smoker,when did you quit: 1 week ago 12/19/23 06:01 Respiratory MDI BID Comment: Diagnosis: abdominal pain Discharge Exam General Appearance: no apparent distress, alert Neurologic Exam: alert, oriented x 3, cooperative, normal mood/affect, nml cerebellar function, sensation nml, No motor deficits Eye Exam: PERRL, EOMI, eyes nml inspection Ears, Nose, Throat Exam: normal ENT inspection, pharynx normal, moist mucous membranes Neck Exam: normal inspection, non-tender, supple, full range of motion Respiratory Exam: normal breath sounds, wheezing, No respiratory distress Cardiovascular Exam: regular rate/rhythm, normal heart sounds Gastrointestinal/Abdomen Exam: soft, No tenderness, No mass Pelvic Exam: deferred Rectal Exam: deferred Back Exam: normal inspection, normal range of motion, No CVA tenderness, No vertebral tenderness Extremity Exam: normal inspection, normal range of motion Skin Exam: normal color, warm, dry Final Diagnosis/Problem List - Final Discharge Diagnosis/Problem (1) Symptomatic anemia Current Visit: Yes Status: Chronic Code(s): D64.9 - ANEMIA, UNSPECIFIED (2) Abdominal pain Current Visit: Yes Status: Acute Code(s): R10.9 - UNSPECIFIED ABDOMINAL PAIN (3) Iron deficiency anemia Current Visit: Yes Status: Acute Code(s): D50.9 - IRON DEFICIENCY ANEMIA, UN SPECIFIED (4) Anxiety and depression Current Visit: No Status: Acute Code(s): F41.9 - ANXIETY DISORDER, UNSPECIFIED; F32.A - DEPRESSION, UNSPECIFIED (5) COPD (chronic obstructive pulmonary disease) Current Visit: No Status: Acute (6) Hypokalemia Current Visit: No Status: Acute Code(s): E87.6 - HYPOKALEMIA (7) Hypothyroidism Current Visit: No Status: Acute Code(s): E03.9 - HYPOTHYROIDISM, UNSPECIFIED (8) URI (upper respiratory infection) Current Visit: Yes Status: Acute Assessment & Plan: (1) Symptomatic anemia Current Visit: Yes Status: Chronic Assessment & Plan: -transfused 2 units - hgb stable at 9.1 -Continue to monitor and replace if hgb <7 -Iron sat at 6% -continue ferrous sulfate - Patient of Dr. Salcido - will need f/u op -Denies hematuria, rectal bleeding, dark stools 12/19 - Hgb 8.9- stable- F/u with PCP and hematology OP Code(s): D64.9 - ANEMIA, UNSPECIFIED (2) Abdominal pain Current Visit: Yes Status: Acute Qualifiers: Abdominal location: epigastric Qualified Code(s): R10.13 - Epigastric pain Assessment & Plan: -Unclear etiology - patient states pain has resolved today -CT negative for acute process -Exam is benign -Monitor clinically. -Protonix started Code(s): R10.9 - UNSPECIFIED ABDOMINAL PAIN (3) Iron deficiency anemia Current Visit: Yes Status: Acute Qualifiers: Iron deficiency anemia type: chronic blood loss Qualified Code(s): D50.0 - Iron deficiency anemia secondary to blood loss (chronic) Assessment & Plan: -see symptomatic anemia Code(s): D50.9 - IRON DEFICIENCY ANEMIA, UNSPECIFIED (4) Anxiety and depression Current Visit: No Status: Acute Assessment & Plan: -continue home klonopin, zoloft, seroquel Code(s): F41.9 - ANXIETY DISORDER, UNSPECIFIED; F32.A - DEPRESSION, UNSPECIFIED (5) COPD (chronic obstructive pulmonary disease) Current Visit: No Status: Acute Assessment & Plan: -Does not appear to be in exacerbation -at baseline oxygen 3L- 99% -continue Advair/DuoNeb prn (6) Hypokalemia Current Visit: No Status: Acute Assessment & Plan: -resolved Code(s): E87.6 - HYPOKALEMIA (7) Hypothyroid Current Visit: Yes Status: Acute Assessment & Plan: -continue home synthroid Code(s): E03.9 - HYPOTHYROIDISM, UNSPECIFIED (8) URI (upper respiratory infection) Current Visit: Yes Status: Acute Assessment & Plan: -COVID/FLU/RSV negative -strep negative -CXR reviewed Code(s): J06.9 - ACUTE UPPER RESPIRATORY INFECTION, UNSPECIFIED - Discharge Discharge Date: 12/20/23 Disposition: Home, Self-Care Condition: Fair Prescriptions: Continue Fluticasone/Salmeterol Disc [Advair/[place]ixella 250-50 Diskus 14 Dose] 1 puff IH BID Famotidine 20 mg [Pepcid 20 MG] 20 mg PO BID Albuterol/Ipratropium Mdi [Combivent Inhaler] 1 puff IH QID Sertraline HCl 100 mg [Zoloft 100 MG] 200 mg PO DAILY Isosorbide Mononitrate 30 mg [Imdur 30 MG] 30 mg PO DAILY Tizanidine HCl 4 mg [Zanaflex 4 MG] 4 mg PO TID Quetiapine Fumarate [Seroquel] 300 mg PO HS Nitroglycerin 0.4 mg Tablet [Nitrostat 0.4 MG Tablet] 0.4 mg SL UD PRN PRN Reason: Chest Pain Theophylline Anhydrous [Theophylline ER] 300 mg PO DAILY Fluticasone Propionate [Flonase NASAL] 1 spray NS BID Levothyroxine Sodium 25 Mcg [Synthroid 25 Mcg] 25 mcg PO DAILY tablet Omeprazole 40 mg PO DAILY Albuterol Sulfate Mdi [ALBUTEROL/Proair Hfa MDI] 2 puff IH QID Clonazepam [Klonopin] 2 mg PO BID Gabapentin 1,200 mg PO BREAKFAST Gabapentin [Neurontin ] 2,400 mg PO HS cap Instructions: Anemia caused by low iron, Wheezing Additional Instructions: follow up with Dr. Salcido - hematology and Pulmonology this week. Please call for appointment. Follow up with: WEN CAMERON MD [Primary Care Provider] - 12/30/23 2:30 pm ([facility] )
[2023-12-20] MEDS: Flonase NASAL NS SCH (10:25)
[2023-12-20 12:06] VITALS: BP 91/42; PULSE 90; TEMP 97.9; O2SAT 95
== END 2023-12-20 14:24 | disposition home or self-care (01) ==
LOC: ED 16:22 → MED SURG 18:31
PROVIDERS: ADMIT Internal Medicine; ATTEND Internal Medicine
DX: D64.9 Anemia, unspecified (principal); R10.9 Unspecified abdominal pain; J44.9 Chronic obstructive pulmonary disease, unspecified; D50.9 Iron deficiency anemia, unspecified; F41.9 Anxiety disorder, unspecified; E87.6 Hypokalemia; J06.9 Acute upper respiratory infection, unspecified; E03.9 Hypothyroidism, unspecified; E78.5 Hyperlipidemia, unspecified; I25.10 Atherosclerotic heart disease of native coronary artery without angina pectoris; F17.200 Nicotine dependence, unspecified, uncomplicated; Z99.81 Dependence on supplemental oxygen; Z79.899 Other long term (current) drug therapy
CPT/HCPCS: 0241U; 36000; 36415; 71045; 74177; 80048; 80053; 81001; 82150; 83540; 83550; 83690; 83735; 84484; 85025; 85027; 85045; 85046; 86850; 86900; 86901; 86922; 87651; 94640; 94760; 96374; 99285; P9016; Q3014; J1644; J1940; A9270-GY

== ENCOUNTER 2024-01-24 13:53 | Observation (INO) | payer MEDICARE, OTHER ==
[2024-01-24] MEDS ORDERED: Sterile H2O 10 ml IJ ONE (14:17)
[2024-01-24] MEDS ORDERED: Sodium Chloride 0.9% 1000 ML 1,000 ML ONE (14:17)
[2024-01-24] MEDS ORDERED: Zithromax 500 MG/ 250 ML NaCl Premix 500 MG/250 ML IVPB IV ONE (14:17)
[2024-01-24] MEDS ORDERED: solu-MEDROL ONE (14:17)
[2024-01-24] MEDS: Sodium Chloride 0.9% 1000 ML 1,000 ML IV STA (14:22)
[2024-01-24] MEDS: Zithromax 500 MG/ 250 ML NaCl Premix 500 MG/250 ML IVPB IV STA (14:22)
[2024-01-24] MEDS: solu-MEDROL 125 MG, Sterile H2O 10 ml 2 ML IV ONE (14:22)
[2024-01-24] MEDS ORDERED: DUONEB 0.5-3 MG/3 ml Neb IH ONE (14:28)
--- NOTE | 2024-01-24 14:29 | ERPHSYRPT ---
- History of Present Illness Time Seen by Provider: 01/24/24 14:01 Source: patient Exam Limitations: no limitations Patient Subjective Stated Complaint: shortness of breath Triage Nursing Assessment: Pt brought to the ER by EMS, tachypnic, tachycardic, pulses normal, skin sallow/w/d, wears 3L NC at home, denies cardiac pain, unable to walk any distance without getting short of breath Physician History: Patient is here with acute shortness of breath. States that she has had wheezing, shortness of breath past 2 to 3 days. Worsening over the past 24 hours. Arrives on her home oxygen, 4 L. Patient did receive a DuoNeb treatment prior to arrival. Patient does also have chronic anemia. She appears pale and diaphoretic. States that she has received multiple blood transfusions in the past. No lower GI bleed type symptoms today. No blood in her stool, no liquid stool, no diarrhea. Allergies/Adverse Reactions: morphine Allergy (Severe, Verified 01/24/24 14:11) Fainting oxycodone Allergy (Verified 01/24/24 14:11) Shortness of Breath Penicillins Allergy (Verified 01/24/24 14:11) oxymorphone Adverse Reaction (Severe, Verified 01/24/24 14:11) Fainting Coconut Adverse Reaction (Intermediate, Verified 01/24/24 14:11) Headache bupropion HCl [From Wellbutrin] Adverse Reaction (Mild, Verified 01/24/24 14:11) Hives Home Medications: Albuterol/Ipratropium Mdi [Combivent Inhaler] 1 puff IH QID 12/29/12 [History] Famotidine 20 mg [Pepcid 20 MG] 20 mg PO BID 12/29/12 [History] Fluticasone/Salmeterol Disc [Advair/Wixella 250-50 Diskus 14 Dose] 1 puff IH BID 12/29/12 [History] Sertraline HCl 100 mg [Zoloft 100 MG] 200 mg PO DAILY 12/17/13 [History] Isosorbide Mononitrate 30 mg [Imdur 30 MG] 30 mg PO DAILY 11/05/14 [History] Tizanidine HCl 4 mg [Zanaflex 4 MG] 4 mg PO TID 01/16/15 [History] Quetiapine Fumarate [Seroquel] 300 mg PO HS 10/17/15 [History] Nitroglycerin 0.4 mg Tablet [Nitrostat 0.4 MG Tablet] 0.4 mg SL UD PRN 11/15/15 [History] Theophylline Anhydrous [Theophylline ER] 300 mg PO DAILY 12/23/20 [History] Fluticasone Propionate [Flonase NASAL] 1 spray NS BID 03/15/21 [History] Omeprazole 40 mg PO DAILY 10/22/21 [History] Albuterol Sulfate Mdi [ALBUTEROL/Proair Hfa MDI] 2 puff IH QID 03/10/23 [History] Clonazepam [Klonopin] 2 mg PO BID 03/10/23 [History] Gabapentin 1,200 mg PO BREAKFAST 03/11/23 [History] Rivaroxaban [Xarelto] 20 mg PO DAILY 01/24/24 [History] Hx Tetanus, Diphtheria Vaccination/Date Given: No Hx Influenza Vaccination/Date Given: No Hx Pneumococcal Vaccination/Date Given: No Travel Risk - International Travel Have you traveled outside of the country in past 3 weeks: No - Emerging Infectious Disease Are you exhibiting symptoms associated with any current EIDs: Yes Symptoms: Shortness of Breath - Past Medical History Pertinent Past Medical History: Yes Neurological History: Migraines ENT History: No Pertinent History Cardiac History: Congestive Heart Failure, Coronary Artery Disease, High Cholesterol, Other Respiratory History: Asthma, Bronchitis, COPD, Pneumonia, Pulmonary Embolism Endocrine Medical History: Hypothyroidism Musculoskeletal History: Arthritis, Osteoporosis GI Medical History: GERD, Hernia, Polyps History: No Pertinent History Psycho-Social History: Anxiety, Bipolar, Depression, Other Female Reproductive Disorders: Fibroids Other Medical History: 2 LEAKY VALVES. BORDERLINE PERSONALITY DISORDER, PTSD, manic depressive. Anemia - Past Surgical History Past Surgical History: Yes Neuro Surgical History: No Pertinent History Cardiac: Cardiac Catheterization Respiratory: No Pertinent History Gastrointestinal: Other Genitourinary: No Pertinent History Musculoskeletal: Other Female Surgical History: Section Other Surgical History: ARM SURGERY-- left wrist laceration from a glass door, 2 c-sections, EGD with dilitation, colonoscopy, heart cath x 2 Significant Family History: no pertinent family hx - Social History Smoking Status: Current every day smoker How long have you smoked: 40 years Exposure to second hand smoke: Yes Alcohol Use: Socially Drug Use: none Patient Lives Alone: No - Social Determinants of Health Will the patient participate in the screening: Yes Do you worry about a steady place to live?: No Do you have any problems with any of the following?: No known problems In the past 12 months,have you had to go without utilities?: No Transportation Issues: No Has anyone in your support network made you feel unsafe?: No Have you or anyone in your house had to go without enough: No - Nursing Vital Signs Nursing Vital Signs: Initial Vital Signs Respiratory Rate 26 H 01/24/24 13:58 O2 Sat by Pulse Oximetry 110 H 01/24/24 13:58 Pain Scale Pain Intensity 7 - Physical Exam SpO2: 98 Comments: 01/24/24 16:15 Review of Systems Constitutional: Negative for fever. HENT: Negative for congestion. Respiratory: Negative for shortness of breath. Cardiovascular: Negative for chest pain. Gastrointestinal: Negative for abdominal pain. Genitourinary: Negative for dysuria. Musculoskeletal: Negative for back pain. Skin: Negative for rash. Neurological: Negative for headaches. Psychiatric/Behavioral: Negative for behavioral problems. All other systems reviewed and are negative. Physical Exam Vitals signs and nursing note reviewed. Constitutional: Appearance: Patient is well-developed. HENT: Head: Normocephalic and atraumatic. Eyes: Conjunctiva/sclera: Conjunctivae normal. Neck: Musculoskeletal: Normal range of motion. Trachea: No tracheal deviation. Cardiovascular: Rate and Rhythm: Normal rate. Pulmonary: Effort: Wheezing, tachypnea, crackles throughout Abdominal: Palpations: Abdomen is soft. Musculoskeletal: General: No deformity. Skin: General: Skin is warm and dry. Neurological/ Psychiatric: Mental Status: Mental status, behavior, interaction with environment is ap propriate for patient's age and condition - Course Nursing assessment & vital signs reviewed: Yes EKG Interpreted by Me: Sinus Rhythm (Sinus rhythm, rate of 109, MO interval 127, QRS 81, QTc is 554, no STEMI or other ST changes, likely tachycardia secondary to recent breathing treatment), Sinus Tach Ordered Tests: Active Orders 24 hr Category Date Time Status Call Admit Doctor for Orders ON ADMISSION Care 01/24/24 16:07 Active Personal Support Worker STAT Care 01/24/24 14:02 Active Code Status Order ROUTINE Care 01/24/24 16:07 Active EKG-ER Only STAT Care 01/24/24 14:02 Active IV Insertion STAT Care 01/24/24 14:[address] in Observation ROUTINE Care 01/24/24 16:07 Active Telemetry q6h Care 01/24/24 16:08 Active CHEST 1 VIEW (PORTABLE) Stat Exams 01/24/24 14:02 Completed CBC W DIFF Stat Lab 01/24/24 14:30 Completed CMP Stat Lab 01/24/24 14:30 Completed NT PRO BNPII Stat Lab 01/24/24 14:30 Completed TROPONIN Q4H Lab 01/24/24 14:30 Completed TROPONIN Q4H Lab 01/24/24 18:15 Ordered TROPONIN Q4H Lab 01/24/24 22:15 Ordered Pulse Oximetry CONTINUOUS RT 01/24/24 16:08 Active Respiratory Therapy Assessment DAILY RT 01/24/24 14:36 Active Respiratory Therapy Consult ONCE RT 01/24/24 16:07 Active Transfer Order Routine Transfer 01/24/24 Ordered Medication Summary Discontinued Medications Generic Name Dose Route Start Last Admin Trade Name Freq PRN Reason Stop Dose Admin Albuterol/Ipratropium 3 ml 01/24/24 14:02 01/24/24 14:33 Ipratropium/Albuterol Sulfate 3 Ml Ampul.Neb IH 01/24/24 14:03 3 ml STAT ONE Administration Albuterol/Ipratropium Confirm 01/24/24 14:28 Ipratropium/Albuterol Sulfate 3 Ml Ampul.Neb Administered 01/24/24 14:29 Dose 3 ml IH .STK-MED ONE Methylprednisolone Sodium 0 mg 01/24/24 14:02 01/24/24 14:22 Succinate 125 mg/ Sterile IV 01/24/24 14:03 125 mg Water 2 ml STAT ONE Administration Sodium Chloride 1,000 mls @ 999 mls/hr 01/24/24 14:02 01/24/24 15:49 Sodium Chloride 0.9% 1000 Ml IV 01/24/24 15:02 Infused .Q1H1M STA Infusion Azithromycin 500 mg in 250 mls @ 250 mls/hr 01/24/24 14:02 01/24/24 15:49 Zithromax 500 Mg/ 250 Ml Nacl Premix IV 01/24/24 15:01 Infused STAT STA Infusion Azithromycin Confirm 01/24/24 14:17 Zithromax 500 Mg/ 250 Ml Nacl Premix Administered 01/24/24 14:18 Dose 500 mg in 250 mls @ ud IV .STK-MED ONE Sodium Chloride Confirm 01/24/24 14:17 Sodium Chloride 0.9% 1000 Ml Administered 01/24/24 14:18 Dose 1,000 mls @ ud .ROUTE .STK-MED ONE Methylprednisolone Sodium Succinate Confirm 01/24/24 14:17 Methylprednis Sod Succ 125 Mg/2 Ml Vial Administered 01/24/24 14:18 Dose 125 mg .ROUTE .STK-MED ONE Sterile Water Confirm 01/24/24 14:17 Water For Injection,Sterile 10 Ml Vial Administered 01/24/24 14:18 Dose 10 ml IJ .STK-MED ONE Lab/Rad Data: Laboratory Result Diagrams 01/24/24 14:30 01/24/24 14:30 Laboratory Results 01/24/24 01/24/24 01/24/24 Range/Units 14:33 14:30 14:30 WBC (3.98-10.04) x10^3/uL RBC (3.93-5.22) x10^6/uL Hgb (11.2-15.7) g/dL Hct (34.1-44.9) % MCV (79.4-94.8) fL MCH (25.6-32.2) pg MCHC (32.2-35.5) g/dL RDW (11.7-14.4) % Plt Count (182-369) x10^3/uL MPV (9.4-12.3) fL Gran % (34.0-71.1) % Immature Gran % (Auto) (0.001-0.429) % Nucleat RBC Rel Count (0.00-0.2) % Eos # (Auto) (0.04-0.36) x10^3/uL Immature Gran # (Auto) (0.001-0.031) x10^3u/L Absolute Lymphs (auto) (1.18-3.74) x10^3/uL Absolute Monos (auto) (0.24-0.86) x10^3/uL Absolute Nucleated RBC (0.00-0.012) x10^3u/L Lymphocytes % (19.3-51.7) % Monocytes % (4.7-12.5) % Eosinophils % (0.7-5.8) % Basophils % (0.1-1.2) % Absolute Granulocytes (1.56-6.13) x10^3/uL Basophils # (0.01-0.08) x10^3/uL Sodium 139 (135-145) mmol/L Potassium 3.9 (3.5-5.1) mmol/L Chloride 105 (98-107) mmol/L Carbon Dioxide 27 (22-30) mmol/L Anion Gap 9.6 (5-15) MEQ/L BUN 10 (7-17) mg/dL Creatinine 0.80 (0.52-1.04) mg/dL Estimated GFR 81.2 ML/MIN Glucose 107 H (74-106) mg/dL Calcium 9.3 (8.4-10.2) mg/dL Total Bilirubin 0.40 (0.2-1.3) mg/dL AST 19 (14-36) U/L ALT 19 (0-35) U/L Alkaline Phosphatase 87 (38-126) U/L Troponin I < 0.012 (0.000-0.033) ng/mL NT-Pro-B Natriuret Pep 274 (<300) pg/mL Serum Total Protein 6.5 (6.3-8.2) g/dL Albumin 3.8 (3.5-5.0) g/dL Influenza Type A Ag NEGATIVE (NEGATIVE) Influenza Type B Ag NEGATIVE (NEGATIVE) RSV (PCR) NEGATIVE (NEGATIVE) SARS-CoV-2 (PCR) NEGATIVE (NEGATIVE) 01/24/24 Range/Units 14:30 WBC 18.2 H (3.98-10.04) x10^3/uL RBC 3.37 L (3.93-5.22) x10^6/uL Hgb 7.4 L (11.2-15.7) g/dL Hct 26.1 L (34.1-44.9) % MCV 77.4 L (79.4-94.8) fL MCH 22.0 L (25.6-32.2) pg MCHC 28.4 L (32.2-35.5) g/dL RDW 20.0 H (11.7-14.4) % Plt Count 412 H (182-369) x10^3/uL MPV 9.1 L (9.4-12.3) fL Gran % 91.7 H (34.0-71.1) % Immature Gran % (Auto) 0.6 H (0.001-0.429) % Nucleat RBC Rel Count 0.0 (0.00-0.2) % Eos # (Auto) 0.04 (0.04-0.36) x10^3/uL Immature Gran # (Auto) 0.10 H (0.001-0.031) x10^3u/L Absolute Lymphs (auto) 0.55 L (1.18-3.74) x10^3/uL Absolute Monos (auto) 0.78 (0.24-0.86) x10^3/uL Absolute Nucleated RBC 0.00 (0.00-0.012) x10^3u/L Lymphocytes % 3.0 L (19.3-51.7) % Monocytes % 4.3 L (4.7-12.5) % Eosinophils % 0.2 L (0.7-5.8) % Basophils % 0.2 (0.1-1.2) % Absolute Granulocytes 16.64 H (1.56-6.13) x10^3/uL Basophils # 0.04 (0.01-0.08) x10^3/uL Sodium (135-145) mmol/L Potassium (3.5-5.1) mmol/L Chloride (98-107) mmol/L Carbon Dioxide (22-30) mmol/L Anion Gap (5-15) MEQ/L BUN (7-17) mg/dL Creatinine (0.52-1.04) mg/dL Estimated GFR ML/MIN Glucose (74-106) mg/dL Calcium (8.4-10.2) mg/dL Total Bilirubin (0.2-1.3) mg/dL AST (14-36) U/L ALT (0-35) U/L Alkaline Phosphatase (38-126) U/L Troponin I (0.000-0.033) ng/mL NT-Pro-B Natriuret Pep (<300) pg/mL Serum Total Protein (6.3-8.2) g/dL Albumin (3.5-5.0) g/dL Influenza Type A Ag (NEGATIVE) Influenza Type B Ag (NEGATIVE) RSV (PCR) (NEGATIVE) SARS-CoV-2 (PCR) (NEGATIVE) - Progress Progress: improved Progress Note: 01/24/24 16:16 Differential diagnosis includes: PNA, STEMI, NSTEMI, other infection, musculoskeletal pain, pneumothorax - We'll obtain basic labs, EKG, troponin, chest x-ray - EKG shows no ST changes - my read - O2 saturations consistently greater than 95% on home 4 L - Chest x-ray demonstrates pneumonia Patient is able to hold her oxygen saturations after breathing treatments and steroids here. Patient also started on antibiotics given pneumonia. Patient appears to have chronic anemia. Hemoglobin at 7.4 today. She has received multiple blood transfusions in the past. No signs of a lower GI bleed. Given overall presentation today I do believe patient will need to be admitted to the hospital. I did discuss over the phone with on-call hospitalist, Dr. Barnes. We went over the case in details and patient was accepted to her service. Patient does appear dry on exam. However given her history of CHF patient was only given 250 mL of fluid. Discussed with Dr.: Other (Cameron) Counseled pt/family regarding: lab results, diagnosis, need for follow-up, rad results - Departure Departure Disposition: Observation Clinical Impression: Acute anemia, Pneumonia Condition: Stable Critical Care Time: No Referrals: WEN CAMERON MD [Primary Care Provider] - Follow up/PCP as directed
[2024-01-24] MEDS: DUONEB 0.5-3 MG/3 ml Neb IH ONE (14:33)
[2024-01-24 14:34] LABS: Absolute Neutrophil Ct (ANC) 16.64 x10^3/uL (1.56-6.13); BASOPHIL % 0.2 % (0.1-1.2); Basophil (Absolute #) 0.04 x10^3/uL (0.01-0.08); Eosinophil % 0.2 % (0.7-5.8); Eosinophil (Absolute #) 0.04 x10^3/uL (0.04-0.36); Hematocrit 26.1 % (34.1-44.9); Hemoglobin 7.4 g/dL (11.2-15.7); IMMATURE GRAN % 0.6 % (0.001-0.429); Lymphocyte (Absolute #) 0.55 x10^3/uL (1.18-3.74); Mean Cell Volume 77.4 fL (79.4-94.8); Mean Corpuscular Hgb Concent. 28.4 g/dL (32.2-35.5); Mean Platelet Volume 9.1 fL (9.4-12.3); Monocyte (Absolute #) 0.78 x10^3/uL (0.24-0.86); Monocytes % 4.3 % (4.7-12.5); Neutrophil % 91.7 % (34.0-71.1); Platelet Count 412 x10^3/uL (182-369); Red Blood Count 3.37 x10^6/uL (3.93-5.22); White Blood Count 18.2 x10^3/uL (3.98-10.04)
[2024-01-24 15:02] LABS: ALBUMIN 3.8 g/dL (3.5-5.0); ANION GAP 9.6 MEQ/L (5-15); BILIRUBIN,TOTAL 0.4 mg/dL (0.2-1.3); Calcium 9.3 mg/dL (8.4-10.2); Creatinine 1 0.8 mg/dL (0.52-1.04); EST GLOMERULAR FILTRATION RATE 81.2 ML/MIN; Potassium 3.9 mmol/L (3.5-5.1); Total Protein 6.5 g/dL (6.3-8.2)
--- NOTE | 2024-01-24 15:08 | XRAY ---
Indication: Pneumonia. Comparison: December 19, 2023 Portable chest demonstrates new right infrahilar interstitial alveolar opacities, favoring pneumonia/pneumonitis. Heart not enlarged again with moderate sized hiatal hernia. Bony thorax intact again with osteopenia.
[2024-01-24 15:18] LABS: INFLUENZA A NEGATIVE (NEGATIVE); INFLUENZA B NEGATIVE (NEGATIVE); RESPIRATORY SYNCTIAL VIRUS NEGATIVE (NEGATIVE); SARS-CoV-2 Xpert Express NEGATIVE (NEGATIVE)
--- NOTE | 2024-01-24 16:30 | PCM.HP ---
<ROSA GONZÁLES - Last Filed: 01/24/24 17:31> History of Present Illness - Chief Complaint Chief Complaint: Pneumonia Date: 01/24/24 History of Present Illness: is a 68 year old female with a pmhx of COPD, PE (diagnosed in May 2023 on Xarelto), hypothyroidism, CAD, HLD, PE, biopolar, anxiety/depression, CHF, chronic hypoxic respiratory failure on 3 L oxygen, and recurrent persistent microcytic anemia who presented to ED with complaints dyspnea, wheezing, sore throat, fever/chills, and a productive cough with green/yellow sputum for the last three days. Patient reports symptoms have progressed overnight with her shortness of breath making it difficult to ambulate and perform ADLs. She does have chronic iron deficiency anemia and has received multiple transfusions in the past. She was set up at her last admission to see Dr. Salcido (hematology) for iron infusions but has issues with transportation and was unable to follow up. Denies hematuria, dark/anthony blood in stools, CP, abdominal pain, nausea, vomiting, or diarrhea. Patient septic on presentation with tachypnea, tachycardia, and leukocytosis with WBC at 18.2. CXR demonstrates new right infrahilar interstitial alveolar opacities, favoring pneumonia/pneumonitis. Labs also remarkable for microcytic anemia with hgb at 7.4. Patient received 1L fluid bolus, DuoNebs, and azithromycin in ED. Admit for Sepsis secondary to pneumonia. Patient with previous sputum cultures positive for pseudomonas. Plan continued sepsis workup and IV abx cefepime/vanc. - Review of Systems Constitutional: Fever, Chills, Weakness Eyes: No Symptoms Ears, Nose, & Throat: Nose Congestion, Throat Pain Respiratory: Cough, Short Of Breath, Wheezing Cardiac: No Symptoms Abdominal/Gastrointestinal: No Symptoms Genitourinary Symptoms: No Symptoms Musculoskeletal: No Symptoms Skin: Rash (RLE - raised red ) Neurological: No Symptoms Psychological: No Symptoms Endocrine: No Symptoms Hematologic/Lymphatic: Anemia Immunological/Allergic: No Symptoms Medications & Allergies Home Medications: Home Medication List Albuterol/Ipratropium Mdi [Combivent Inhaler] 1 puff IH QID 12/29/12 [History Confirmed 01/24/24] Famotidine 20 mg [Pepcid 20 MG] 20 mg PO BID 12/29/12 [History Confirmed 01/24/24] Fluticasone/Salmeterol Disc [Advair/Wixella 250-50 Diskus 14 Dose] 1 puff IH BID 12/29/12 [History Confirmed 01/24/24] Sertraline HCl 100 mg [Zoloft 100 MG] 200 mg PO DAILY 12/17/13 [History Confirmed 01/24/24] Isosorbide Mononitrate 30 mg [Imdur 30 MG] 30 mg PO DAILY 11/05/14 [History Confirmed 01/24/24] Tizanidine HCl 4 mg [Zanaflex 4 MG] 4 mg PO TID 01/16/15 [History Confirmed 01/24/24] Quetiapine Fumarate [Seroquel] 300 mg PO HS 10/17/15 [History Confirmed 01/24/24] Nitroglycerin 0.4 mg Tablet [Nitrostat 0.4 MG Tablet] 0.4 mg SL UD PRN 11/15/15 [History Confirmed 01/24/24] Theophylline Anhydrous [Theophylline ER] 300 mg PO DAILY 12/23/20 [History Confirmed 01/24/24] Fluticasone Propionate [Flonase NASAL] 1 spray NS BID 03/15/21 [History Confirmed 01/24/24] Levothyroxine Sodium 25 Mcg [Synthroid 25 Mcg] 25 mcg PO DAILY tablet 03/17/21 [Rx Confirmed 01/24/24] Omeprazole 40 mg PO DAILY 10/22/21 [History Confirmed 01/24/24] Albuterol Sulfate Mdi [ALBUTEROL/Proair Hfa MDI] 2 puff IH QID 03/10/23 [History Confirmed 01/24/24] Clonazepam [Klonopin] 2 mg PO BID 03/10/23 [History Confirmed 01/24/24] Gabapentin 1,200 mg PO BREAKFAST 03/11/23 [History Confirmed 01/24/24] Gabapentin [Neurontin ] 2,400 mg PO HS cap 03/12/23 [Rx Confirmed 01/24/24] Rivaroxaban [Xarelto] 20 mg PO DAILY 01/24/24 [History Confirmed 01/24/24] Allergies/Adverse Reactions: Allergies Allergy/AdvReac Type Severity Reaction Status Date / Time morphine Allergy Severe Fainting Verified 01/24/24 14:11 oxycodone Allergy Shortness Verified 01/24/24 14:11 of Breath Penicillins Allergy Verified 01/24/24 14:11 oxymorphone AdvReac Severe Fainting Verified 01/24/24 14:11 [place]ut AdvReac Intermediate Headache Verified 01/24/24 14:11 bupropion HCl AdvReac Mild Hives Verified 01/24/24 14:11 [From Wellbutrin] - Past Medical History Past Medical History: Yes Neurological History: Migraines ENT History: No Pertinent History Cardiac History: Congestive Heart Failure, Coronary Artery Disease, High Cholesterol, Other Respiratory History: Asthma, Bronchitis, COPD, Pneumonia, Pulmonary Embolism Endocrine Medical History: Hypothyroidism Musculoskelatal History: Arthritis, Osteoporosis GI Medical History: GERD, Hernia, Polyps History: No Pertinent History Pyscho-Social History: Anxiety, Bipolar, Depression, Other Reproductive Disorders: Fibroids Comment: 2 LEAKY VALVES. BORDERLINE PERSONALITY DISORDER, PTSD, manic depressive. Anemia - Past Surgical History Past Surgical History: Yes Neuro Surgical History: No Pertinent History Cardiac History: Cardiac Catheterization Respiratory Surgery: No Pertinent History GI Surgical History: Other Genitourinary Surgical Hx: No Pertinent History Musculskeletal Surgical Hx: Other Female Surgical History: Section Other Surgical History: ARM SURGERY-- left wrist laceration from a glass door, 2 c-sections, EGD with dilitation, colonoscopy, heart cath x 2 Significant Family History: no pertinent family hx - Social History Smoking Status: Current every day smoker How long have you smoked: 40 years Exposure to second hand smoke: Yes Alcohol: None Drug Use: none - Social Determinants of Health Will the patient participate in the screening: Yes Do you worry about a steady place to live?: No Do you have any problems with any of the following?: No known problems In the past 12 months,have you had to go without utilities?: No Have you or anyone in your house had to go without enough: No Transportation Issues: No Has anyone in your support network made you feel unsafe?: No Does the patient want assistance with any of the above?: No - Physical Exam Vital Signs: Vital Signs - 24 hr Temp Pulse Resp BP BP Pulse Ox 01/24/24 16:20 98 01/24/24 15:00 104 H 18 92/58 99 01/24/24 14:36 107 H 30 H 98 01/24/24 14:06 98.4 F 111 H 30 H 122/68 98 01/24/24 14:03 105 H 33 H 122/68 98 01/24/24 13:58 26 H 110 H General Appearance: no apparent distress Neurologic Exam: alert, oriented x 3, cooperative Eye Exam: PERRL/EOMI Ears, Nose, Throat Exam: normal ENT inspection Neck Exam: normal inspection Respiratory Exam: crackles/rales, wheezing Cardiovascular Exam: regular rate/rhythm, normal heart sounds Pelvic Exam: not done Rectal Exam: deferred Back Exam: normal inspection Extremity Exam: normal inspection Skin Exam: rash (RLE raised red) Results - Labs Lab/Micro Results: Lab Results-Last 24 Hours 01/24/24 01/24/24 01/24/24 Range/Units 14:30 14:30 14:30 WBC 18.2 H (3.98-10.04) x10^3/uL RBC 3.37 L (3.93-5.22) x10^6/uL Hgb 7.4 L (11.2-15.7) g/dL Hct 26.1 L (34.1-44.9) % MCV 77.4 L (79.4-94.8) fL MCH 22.0 L (25.6-32.2) pg MCHC 28.4 L (32.2-35.5) g/dL RDW 20.0 H (11.7-14.4) % Plt Count 412 H (182-369) x10^3/uL MPV 9.1 L (9.4-12.3) fL Gran % 91.7 H (34.0-71.1) % Immature Gran % (Auto) 0.6 H (0.001-0.429) % Nucleat RBC Rel Count 0.0 (0.00-0.2) % Eos # (Auto) 0.04 (0.04-0.36) x10^3/uL Immature Gran # (Auto) 0.10 H (0.001-0.031) x10^3u/L Absolute Lymphs (auto) 0.55 L (1.18-3.74) x10^3/uL Absolute Monos (auto) 0.78 (0.24-0.86) x10^3/uL Absolute Nucleated RBC 0.00 (0.00-0.012) x10^3u/L Lymphocytes % 3.0 L (19.3-51.7) % Monocytes % 4.3 L (4.7-12.5) % Eosinophils % 0.2 L (0.7-5.8) % Basophils % 0.2 (0.1-1.2) % Absolute Granulocytes 16.64 H (1.56-6.13) x10^3/uL Basophils # 0.04 (0.01-0.08) x10^3/uL Sodium 139 (135-145) mmol/L Potassium 3.9 (3.5-5.1) mmol/L Chloride 105 (98-107) mmol/L Carbon Dioxide 27 (22-30) mmol/L Anion Gap 9.6 (5-15) MEQ/L BUN 10 (7-17) mg/dL Creatinine 0.80 (0.52-1.04) mg/dL Estimated GFR 81.2 ML/MIN Glucose 107 H (74-106) mg/dL Calcium 9.3 (8.4-10.2) mg/dL Total Bilirubin 0.40 (0.2-1.3) mg/dL AST 19 (14-36) U/L ALT 19 (0-35) U/L Alkaline Phosphatase 87 (38-126) U/L Troponin I < 0.012 (0.000-0.033) ng/mL NT-Pro-B Natriuret Pep 274 (<300) pg/mL Serum Total Protein 6.5 (6.3-8.2) g/dL Albumin 3.8 (3.5-5.0) g/dL Influenza Type A Ag (NEGATIVE) Influenza Type B Ag (NEGATIVE) RSV (PCR) (NEGATIVE) SARS-CoV-2 (PCR) (NEGATIVE) 01/24/24 Range/Units 14:33 WBC (3.98-10.04) x10^3/uL RBC (3.93-5.22) x10^6/uL Hgb (11.2-15.7) g/dL Hct (34.1-44.9) % MCV (79.4-94.8) fL MCH (25.6-32.2) pg MCHC (32.2-35.5) g/dL RDW (11.7-14.4) % Plt Count (182-369) x10^3/uL MPV (9.4-12.3) fL Gran % (34.0-71.1) % Immature Gran % (Auto) (0.001-0.429) % Nucleat RBC Rel Count (0.00-0.2) % Eos # (Auto) (0.04-0.36) x10^3/uL Immature Gran # (Auto) (0.001-0.031) x10^3u/L Absolute Lymphs (auto) (1.18-3.74) x10^3/uL Absolute Monos (auto) (0.24-0.86) x10^3/uL Absolute Nucleated RBC (0.00-0.012) x10^3u/L Lymphocytes % (19.3-51.7) % Monocytes % (4.7-12.5) % Eosinophils % (0.7-5.8) % Basophils % (0.1-1.2) % Absolute Granulocytes (1.56-6.13) x10^3/uL Basophils # (0.01-0.08) x10^3/uL Sodium (135-145) mmol/L Potassium (3.5-5.1) mmol/L Chloride (98-107) mmol/L Carbon Dioxide (22-30) mmol/L Anion Gap (5-15) MEQ/L BUN (7-17) mg/dL Creatinine (0.52-1.04) mg/dL Estimated GFR ML/MIN Glucose (74-106) mg/dL Calcium (8.4-10.2) mg/dL Total Bilirubin (0.2-1.3) mg/dL AST (14-36) U/L ALT (0-35) U/L Alkaline Phosphatase (38-126) U/L Troponin I (0.000-0.033) ng/mL NT-Pro-B Natriuret Pep (<300) pg/mL Serum Total Protein (6.3-8.2) g/dL Albumin (3.5-5.0) g/dL Influenza Type A Ag NEGATIVE (NEGATIVE) Influenza Type B Ag NEGATIVE (NEGATIVE) RSV (PCR) NEGATIVE (NEGATIVE) SARS-CoV-2 (PCR) NEGATIVE (NEGATIVE) - Radiology Impressions Radiology Exams & Impressions: Radiology Procedures Category Date Time Status CHEST 1 VIEW (PORTABLE) Stat Exams 01/24/24 14:02 Completed - Other Procedures and Tests Respiratory Therapy 01/24/24 14:36 Respiratory Therapy Assessment DAILY 01/24/24 16:07 Respiratory Therapy Consult ONCE Assessment/Plan (1) Sepsis Current Visit: Yes Status: Acute Assessment & Plan: -most likely secondary to pneumonia -meets criteria with tachycardia, tachypnea, WBC at 18.2, pneumonia on CXR -supplemental oxygen with spo2 goal 88-92% - on 3L at baseline -Received 1L IVF bolus -procal, blood culture, sputum culture, UA, LA to be obtained -ED documentation reviewed, Azithromycin started in ED, will continue with cefepime/vanc -Target map >65 -PPI with protonix (2) Pneumonia Current Visit: Yes Status: Acute Assessment & Plan: -cxr demonstrates new right infrahilar interstitial alveolar opacities, favoring pneumonia/pneumonitis -see plan for sepsis -cefepime/vanc - previous sputum culture with pseudomonas -solumedrol q8H -supplemental oxygen -Nebs/INH -RT eval +- Flu shot on discharge Code(s): J18.9 - PNEUMONIA, UNSPECIFIED ORGANISM (3) Acute respiratory failure Current Visit: No Status: Acute Assessment & Plan: -2/2 pneumonia see plan Code(s): J96.00 - ACUTE RESPIRATORY FAILURE, UNSP W HYPOXIA OR HYPERCAPNIA (4) Iron deficiency anemia Current Visit: Yes Status: Acute Assessment & Plan: -chronic on ferrous sulfate -previous admission notes reviewed, iron sat at 6% on 12/19/23 -Hgb at 7.4 today Code(s): D50.9 - IRON DEFICIENCY ANEMIA, UNSPECIFIED (5) Anxiety and depression Current Visit: Yes Status: Acute Assessment & Plan: -continue home meds Code(s): F41.9 - ANXIETY DISORDER, UNSPECIFIED; F32.A - DEPRESSION, UNSPECIFIED (6) Hypothyroid Current Visit: Yes Status: Acute Assessment & Plan: -Continue home meds Code(s): E03.9 - HYPOTHYROIDISM, UNSPECIFIED (7) Bipolar 1 disorder Current Visit: Yes Status: Acute Assessment & Plan: -continue home meds Code(s): F31.9 - BIPOLAR DISORDER, UNSPECIFIED (8) History of pulmonary embolism Current Visit: Yes Status: Acute Assessment & Plan: -on Xarelto - continue Code(s): Z86.711 - PERSONAL HISTORY OF PULMONARY EMBOLISM (9) CHF (congestive heart failure) Current Visit: No Status: Acute Assessment & Plan: -BNP reviewed at 274 -CXR favoring pneumonia -No recent echo on file -continue home meds -daily weights, monitor for fluid overload closely Code(s): I50.9 - HEART FAILURE, UNSPECIFIED (10) COPD exacerbation Current Visit: No Status: Resolved Assessment & Plan: -2/2 to pneumonia see plan VTE: Xarelto PPI: protonix Dispo: 2-3 days Code(s): J44.1 - CHRONIC OBSTRUCTIVE PULMONARY DISEASE W (ACUTE) EXACERBATION Telemedicine Encounter - Telemedicine Encounter Telemedicine Encounter: "The entirety of this encounter was performed via Telemedicine" This visit was performed using real-time audio and video connection between my location and thepatients locationwith the assistance of a surrogateat the patients location. Written or verbal consent was obtained from the patient/guardian to perform this visit [facility] technology. Any patient questions regarding the telemedicine interaction were answered. <MADHURI ARNDT - Last Filed: 01/24/24 21:22> History of Present Illness - Chief Complaint History of Present Illness: is a 68 year old female. - Physical Exam Vital Signs: Vital Signs - 24 hr Temp Pulse Resp BP BP Pulse Ox 01/24/24 19:05 98.3 F 108 H 18 129/56 98 01/24/24 18:53 101 H 18 97 01/24/24 17:51 97.1 F 106 H 20 141/65 98 01/24/24 17:12 98 H 22 97 01/24/24 17:00 97.1 F 106 H 20 141/65 98 01/24/24 16:20 98 01/24/24 15:00 104 H 18 92/58 99 01/24/24 14:36 107 H 30 H 98 01/24/24 14:06 98.4 F 111 H 30 H 122/68 98 01/24/24 14:03 105 H 33 H 122/68 98 01/24/24 13:58 26 H 110 H Results - Labs Lab/Micro Results: Lab Results-Last 24 Hours 01/24/24 01/24/24 01/24/24 Range/Units 14:30 14:30 14:30 WBC 18.2 H (3.98-10.04) x10^3/uL RBC 3.37 L (3.93-5.22) x10^6/uL Hgb 7.4 L (11.2-15.7) g/dL Hct 26.1 L (34.1-44.9) % MCV 77.4 L (79.4-94.8) fL MCH 22.0 L (25.6-32.2) pg MCHC 28.4 L (32.2-35.5) g/dL RDW 20.0 H (11.7-14.4) % Plt Count 412 H (182-369) x10^3/uL MPV 9.1 L (9.4-12.3) fL Gran % 91.7 H (34.0-71.1) % Immature Gran % (Auto) 0.6 H (0.001-0.429) % Nucleat RBC Rel Count 0.0 (0.00-0.2) % Eos # (Auto) 0.04 (0.04-0.36) x10^3/uL Immature Gran # (Auto) 0.10 H (0.001-0.031) x10^3u/L Absolute Lymphs (auto) 0.55 L (1.18-3.74) x10^3/uL Absolute Monos (auto) 0.78 (0.24-0.86) x10^3/uL Absolute Nucleated RBC 0.00 (0.00-0.012) x10^3u/L Lymphocytes % 3.0 L (19.3-51.7) % Monocytes % 4.3 L (4.7-12.5) % Eosinophils % 0.2 L (0.7-5.8) % Basophils % 0.2 (0.1-1.2) % Absolute Granulocytes 16.64 H (1.56-6.13) x10^3/uL Basophils # 0.04 (0.01-0.08) x10^3/uL Sodium 139 (135-145) mmol/L Potassium 3.9 (3.5-5.1) mmol/L Chloride 105 (98-107) mmol/L Carbon Dioxide 27 (22-30) mmol/L Anion Gap 9.6 (5-15) MEQ/L BUN 10 (7-17) mg/dL Creatinine 0.80 (0.52-1.04) mg/dL Estimated GFR 81.2 ML/MIN Glucose 107 H (74-106) mg/dL Lactic Acid (0.4-2.0) Calcium 9.3 (8.4-10.2) mg/dL Total Bilirubin 0.40 (0.2-1.3) mg/dL AST 19 (14-36) U/L ALT 19 (0-35) U/L Alkaline Phosphatase 87 (38-126) U/L Troponin I < 0.012 (0.000-0.033) ng/mL NT-Pro-B Natriuret Pep 274 (<300) pg/mL Serum Total Protein 6.5 (6.3-8.2) g/dL Albumin 3.8 (3.5-5.0) g/dL Procalcitonin (0.030-0.080) ng/mL Influenza Type A Ag (NEGATIVE) Influenza Type B Ag (NEGATIVE) RSV (PCR) (NEGATIVE) SARS-CoV-2 (PCR) (NEGATIVE) Slides for Path Review YES ABO Group Rh Factor Antibody Screen (NEGATIVE) 01/24/24 01/24/24 01/24/24 Range/Units 14:30 14:33 15:36 WBC (3.98-10.04) x10^3/uL RBC (3.93-5.22) x10^6/uL Hgb (11.2-15.7) g/dL Hct (34.1-44.9) % MCV (79.4-94.8) fL MCH (25.6-32.2) pg MCHC (32.2-35.5) g/dL RDW (11.7-14.4) % Plt Count (182-369) x10^3/uL MPV (9.4-12.3) fL Gran % (34.0-71.1) % Immature Gran % (Auto) (0.001-0.429) % Nucleat RBC Rel Count (0.00-0.2) % Eos # (Auto) (0.04-0.36) x10^3/uL Immature Gran # (Auto) (0.001-0.031) x10^3u/L Absolute Lymphs (auto) (1.18-3.74) x10^3/uL Absolute Monos (auto) (0.24-0.86) x10^3/uL Absolute Nucleated RBC (0.00-0.012) x10^3u/L Lymphocytes % (19.3-51.7) % Monocytes % (4.7-12.5) % Eosinophils % (0.7-5.8) % Basophils % (0.1-1.2) % Absolute Granulocytes (1.56-6.13) x10^3/uL Basophils # (0.01-0.08) x10^3/uL Sodium (135-145) mmol/L Potassium (3.5-5.1) mmol/L Chloride (98-107) mmol/L Carbon Dioxide (22-30) mmol/L Anion Gap (5-15) MEQ/L BUN (7-17) mg/dL Creatinine (0.52-1.04) mg/dL Estimated GFR ML/MIN Glucose (74-106) mg/dL Lactic Acid (0.4-2.0) Calcium (8.4-10.2) mg/dL Total Bilirubin (0.2-1.3) mg/dL AST (14-36) U/L ALT (0-35) U/L Alkaline Phosphatase (38-126) U/L Troponin I (0.000-0.033) ng/mL NT-Pro-B Natriuret Pep (<300) pg/mL Serum Total Protein (6.3-8.2) g/dL Albumin (3.5-5.0) g/dL Procalcitonin 0.083 H (0.030-0.080) ng/mL Influenza Type A Ag NEGATIVE (NEGATIVE) Influenza Type B Ag NEGATIVE (NEGATIVE) RSV (PCR) NEGATIVE (NEGATIVE) SARS-CoV-2 (PCR) NEGATIVE (NEGATIVE) Slides for Path Review ABO Group A Rh Factor POSITIVE Antibody Screen NEGATIVE (NEGATIVE) 01/24/24 01/24/24 Range/Units 17:45 18:08 WBC (3.98-10.04) x10^3/uL RBC (3.93-5.22) x10^6/uL Hgb (11.2-15.7) g/dL Hct (34.1-44.9) % MCV (79.4-94.8) fL MCH (25.6-32.2) pg MCHC (32.2-35.5) g/dL RDW (11.7-14.4) % Plt Count (182-369) x10^3/uL MPV (9.4-12.3) fL Gran % (34.0-71.1) % Immature Gran % (Auto) (0.001-0.429) % Nucleat RBC Rel Count (0.00-0.2) % Eos # (Auto) (0.04-0.36) x10^3/uL Immature Gran # (Auto) (0.001-0.031) x10^3u/L Absolute Lymphs (auto) (1.18-3.74) x10^3/uL Absolute Monos (auto) (0.24-0.86) x10^3/uL Absolute Nucleated RBC (0.00-0.012) x10^3u/L Lymphocytes % (19.3-51.7) % Monocytes % (4.7-12.5) % Eosinophils % (0.7-5.8) % Basophils % (0.1-1.2) % Absolute Granulocytes (1.56-6.13) x10^3/uL Basophils # (0.01-0.08) x10^3/uL Sodium (135-145) mmol/L Potassium (3.5-5.1) mmol/L Chloride (98-107) mmol/L Carbon Dioxide (22-30) mmol/L Anion Gap (5-15) MEQ/L BUN (7-17) mg/dL Creatinine (0.52-1.04) mg/dL Estimated GFR ML/MIN Glucose (74-106) mg/dL Lactic Acid 2.1 H (0.4-2.0) Calcium (8.4-10.2) mg/dL Total Bilirubin (0.2-1.3) mg/dL AST (14-36) U/L ALT (0-35) U/L Alkaline Phosphatase (38-126) U/L Troponin I < 0.012 (0.000-0.033) ng/mL NT-Pro-B Natriuret Pep (<300) pg/mL Serum Total Protein (6.3-8.2) g/dL Albumin (3.5-5.0) g/dL Procalcitonin (0.030-0.080) ng/mL Influenza Type A Ag (NEGATIVE) Influenza Type B Ag (NEGATIVE) RSV (PCR) (NEGATIVE) SARS-CoV-2 (PCR) (NEGATIVE) Slides for Path Review ABO Group Rh Factor Antibody Screen (NEGATIVE) - Radiology Impressions Radiology Exams & Impressions: Radiology Procedures Category Date Time Status CHEST 1 VIEW (PORTABLE) Stat Exams 01/24/24 14:02 Completed - Other Procedures and Tests Respiratory Therapy 01/24/24 14:36 Respiratory Therapy Assessment DAILY 01/24/24 17:05 Oxygen NASAL CANNULA 3 lpm Telemedicine Encounter - Telemedicine Encounter Telemedicine Encounter: "The entirety of this encounter was performed via Telemedicine" This visit was performed using real-time audio and video connection between my location and thepatients locationwith the assistance of a surrogateat the patients location. Written or verbal consent was obtained from the patient/guardian to perform this visit using[employer] technology. Any patient questions regarding the telemedicine interaction were answered. JAIMIE Encounter - JAIMIE Encounter Attestation JAIMIE Encounter Attestation: "REILLY Redmond andhavediscussed pertinent aspects of their care with Rosa Rodriguez agree with the history, physical exam (any modifications based on my personal exam will be noted below), assessment, and plan as outlined in original note. Please see immediately below for my summary of findings and additional assessment and plan along with any meaningful corrections/explanations to the Subjective/Objective portions of the JAIMIE note will be noted." My portion of the encounter took place via telemedicine. -Sepsis secondary to pneumonia. Patient has previously had pseudomonas in her sputum culture therefore will cover with cefepime (plus vanc). Chronic anemia of unknown etiology with negative work up in the past. Transfuse for Hg less than 7
[2024-01-24 16:37] LABS: ABO TYPING A; Antibody Screen NEGATIVE (NEGATIVE); RH TYPING POSITIVE
[2024-01-24] MEDS ORDERED: Docusate Sodium 100 MG PO PRN (17:00)
[2024-01-24] MEDS ORDERED: Zofran 4 MG/2 ML VIAL IV PRN (17:00)
[2024-01-24 17:27] LABS: Slide Review 1 YES
[2024-01-24] MEDS ORDERED: Nitrostat 0.4 MG Tablet SL PRN (17:41)
[2024-01-24] MEDS: DUONEB 0.5-3 MG/3 ml Neb IH SCH (18:43)
[2024-01-24] MEDS: PULMICORT 0.5 MG/2 ML RESPULES IH SCH (18:44)
[2024-01-24] MEDS: Advair Hfa 115/21 Common canister IH SCH (18:44)
[2024-01-24] MEDS: VANCOMYCIN 1 GRAM/200 ML BAG 1 GM/200 ML PIGGYBACK IV SCH (18:55)
[2024-01-24] MEDS: Neurontin PO SCH (21:41)
[2024-01-24] MEDS: Pepcid 20 MG PO SCH (21:41)
[2024-01-24] MEDS: Seroquel 100 MG PO SCH (21:42)
[2024-01-24] MEDS: solu-MEDROL 40 MG, Sterile H2O 10 ml 1 ML IV SCH (21:42)
[2024-01-24] MEDS: KLONOPIN PO SCH (21:42)
[2024-01-24] MEDS: Zanaflex 4 MG PO SCH (21:42)
[2024-01-24] MEDS ORDERED: Maxipime 2 GM ONE (21:45)
[2024-01-24] MEDS ORDERED: D5w 100ML Mini Bag 100 ML 100 ML IV ONE (21:46)
[2024-01-24] MEDS: Maxipime 2 GM** 2 G in Dextrose 5%/Water IV Soln. 100ML PLUS BAG 100 ML IV SCH (21:52)
[2024-01-24] MEDS ORDERED: FLUTICASONE-SALMETEROL 250-50 IH SCH (22:00)
[2024-01-24] MEDS ORDERED: Sodium Chloride 0.9% 250 ML 500 ML IV ONE (22:55)
[2024-01-24] MEDS: [UNRECOGNIZED DRUG - OTHER] IH SCH (22:56)
[2024-01-24] MEDS: NON-FORMULARY ITEM (Albuterol Sulfate Mdi*** 8.5 GM Hfa.Aer.Ad) IH SCH (22:56)
[2024-01-24] MEDS: ALBUTEROL IH SCH (22:56)
[2024-01-24] MEDS: Sodium Chloride 0.9% 500 ML 500 ML IV ONE (22:56)
[2024-01-25] MEDS: Robitussin 100 MG/5 ML PO PRN (02:54)
[2024-01-25 02:55] LABS: Appearance Clear (Clear); Bacteria None Seen /HPF (None Seen); Bilirubin Negative (Negative); Blood Negative (Negative); Epithelial Cells None Seen /HPF (None Seen); Glucose, Urine Negative (Negative); Hyaline Casts NONE SEEN /LPF (0-2); Ketones Negative (Negative); Leukocyte Esterase Negative (Negative); Nitrite Negative (Negative); Protein,Urine Dip Negative (Negative); RBC 0-2 /HPF (0-5); Specific Gravity 1.015 (1.005-1.030); Urobilinogen 0.2 mg/dL (0.2); WBC 0-2 /HPF (0-5)
--- NOTE | 2024-01-25 05:04 | PCM.NOTE ---
Date and Time: 01/25/24 0503 Subjective Assessment: is a 68 year old female with a pmhx of COPD, PE (diagnosed in May 2023 on Xarelto), hypothyroidism, CAD, HLD, PE, biopolar, anxiety/depression, CHF, chronic hypoxic respiratory failure on 3 L oxygen, and recurrent persistent microcytic anemia who presented to ED with complaints dyspnea, wheezing, sore throat, fever/chills, and a productive cough with green/yellow sputum for the last three days. Patient reports symptoms have progressed overnight with her shortness of breath making it difficult to ambulate and perform ADLs. She does have chronic iron deficiency anemia and has received multiple transfusions in the past. She was set up at her last admission to see Dr. Salcido (hematology) f or iron infusions but has issues with transportation and was unable to follow up. Denies hematuria, dark/anthony blood in stools, CP, abdominal pain, nausea, vomiting, or diarrhea. Patient septic on presentation with tachypnea, tachycardia, and leukocytosis with WBC at 18.2. CXR demonstrates new right infrahilar interstitial alveolar opacities, favoring pneumonia/pneumonitis. Labs also remarkable for microcytic anemia with hgb at 7.4. Patient received 1L fluid bolus, DuoNebs, and azithromycin in ED. Admit for Sepsis secondary to pneumonia. Patient with previous sputum cultures positive for pseudomonas. Plan continued sepsis workup and IV abx cefepime/vanc. 01/25/24: Patient endorsing improvement of dyspnea. Cough is still [employer]. Feeling weak this morning. Discussed labs with hgb at 7.1 will transfuse 2 units today with lasix after each unit. Advised nursing to run blood product slow with her h/o CHF. Lung sounds are coarse with exp wheezing. Plan for continued IV abx/steroid. WBC improving. Cultures pending. Denies fever, cp, abdominal pain, [place], dizziness, N/V/D. - Review of Systems Constitutional: Fatigue, Weakness Eyes: No Symptoms Ears, Nose, & Throat: No Symptoms Respiratory: Cough, Short Of Breath, Wheezing Cardiac: No Symptoms Abdominal/Gastrointestinal: No Symptoms Genitourinary Symptoms: No Symptoms Musculoskeletal: No Symptoms Skin: No Symptoms Neurological: No Symptoms Psychological: No Symptoms Endocrine: No Symptoms Hematologic/Lymphatic: No Symptoms Immunological/Allergic: No Symptoms Objective Exam General Appearance: no apparent distress Neurologic Exam: alert, oriented x 3, cooperative Skin Exam: normal color Eye Exam: PERRL Ears, Nose, Throat Exam: normal ENT inspection Neck Exam: normal inspection Respiratory Exam: crackles/rales, wheezing Cardiovascular Exam: regular rate/rhythm, normal heart sounds Gastrointestinal/Abdomen Exam: soft, normal bowel sounds Extremity Exam: normal inspection Back Exam: normal inspection Pelvic Exam: deferred Rectal Exam: deferred Objective Data Vital Signs: Vital Signs - 24 hr Temp Pulse Resp BP BP Pulse Ox 01/25/24 04:46 97.1 F 81 18 109/53 95 01/25/24 01:11 89 16 90 L 01/25/24 00:09 98.1 F 90 18 106/51 94 L 01/24/24 19:05 98.3 F 108 H 18 129/56 98 01/24/24 18:53 101 H 18 97 01/24/24 17:51 97.1 F 106 H 20 141/65 98 01/24/24 17:12 98 H 22 97 01/24/24 17:00 97.1 F 106 H 20 141/65 98 01/24/24 16:20 98 01/24/24 15:00 104 H 18 92/58 99 01/24/24 14:36 107 H 30 H 98 01/24/24 14:06 98.4 F 111 H 30 H 122/68 98 01/24/24 14:03 105 H 33 H 122/68 98 01/24/24 13:58 26 H 110 H Pain Assessment - Last Documented Pain Intensity 0 Intake and Output: Intake & Output 01/22/24 01/23/24 01/24/24 01/25/24 11:59 11:59 11:59 11:59 Intake Total 360 Output Total 500 Balance -140 Weight 69.3 kg Lab Results: Lab Results-Last 24 Hours 01/24/24 01/24/24 01/24/24 Range/Units 14:30 14:30 14:30 WBC 18.2 H (3.98-10.04) x10^3/uL RBC 3.37 L (3.93-5.22) x10^6/uL Hgb 7.4 L (11.2-15.7) g/dL Hct 26.1 L (34.1-44.9) % MCV 77.4 L (79.4-94.8) fL MCH 22.0 L (25.6-32.2) pg MCHC 28.4 L (32.2-35.5) g/dL RDW 20.0 H (11.7-14.4) % Plt Count 412 H (182-369) x10^3/uL MPV 9.1 L (9.4-12.3) fL Gran % 91.7 H (34.0-71.1) % Immature Gran % (Auto) 0.6 H (0.001-0.429) % Nucleat RBC Rel Count 0.0 (0.00-0.2) % Eos # (Auto) 0.04 (0.04-0.36) x10^3/uL Immature Gran # (Auto) 0.10 H (0.001-0.031) x10^3u/L Absolute Lymphs (auto) 0.55 L (1.18-3.74) x10^3/uL Absolute Monos (auto) 0.78 (0.24-0.86) x10^3/uL Absolute Nucleated RBC 0.00 (0.00-0.012) x10^3u/L Lymphocytes % 3.0 L (19.3-51.7) % Monocytes % 4.3 L (4.7-12.5) % Eosinophils % 0.2 L (0.7-5.8) % Basophils % 0.2 (0.1-1.2) % Absolute Granulocytes 16.64 H (1.56-6.13) x10^3/uL Basophils # 0.04 (0.01-0.08) x10^3/uL Sodium 139 (135-145) mmol/L Potassium 3.9 (3.5-5.1) mmol/L Chloride 105 (98-107) mmol/L Carbon Dioxide 27 (22-30) mmol/L Anion Gap 9.6 (5-15) MEQ/L BUN 10 (7-17) mg/dL Creatinine 0.80 (0.52-1.04) mg/dL Estimated GFR 81.2 ML/MIN Glucose 107 H (74-106) mg/dL Lactic Acid (0.4-2.0) Calcium 9.3 (8.4-10.2) mg/dL Total Bilirubin 0.40 (0.2-1.3) mg/dL AST 19 (14-36) U/L ALT 19 (0-35) U/L Alkaline Phosphatase 87 (38-126) U/L Troponin I < 0.012 (0.000-0.033) ng/mL NT-Pro-B Natriuret Pep 274 (<300) pg/mL Serum Total Protein 6.5 (6.3-8.2) g/dL Albumin 3.8 (3.5-5.0) g/dL Procalcitonin (0.030-0.080) ng/mL Urine Color (Yellow) Urine Appearance (Clear) Urine pH (4.6-8.0) Ur Specific [place] (1.005-1.030) Urine Protein (Negative) Urine Glucose (UA) (Negative) mg/dL Urine Ketones (Negative) Urine Blood (Negative) Urine Nitrite (Negative) Urine Bilirubin (Negative) Urine Urobilinogen (0.2) mg/dL Ur Leukocyte Esterase (Negative) U Hyaline Cast (Auto) (0-2) /LPF Urine Microscopic RBC (0-5) /HPF Urine Microscopic WBC (0-5) /HPF Ur Epithelial Cells (None Seen) /HPF Urine Bacteria (None Seen) /HPF Urine Culture Reflexed (NO) Influenza Type A Ag (NEGATIVE) Influenza Type B Ag (NEGATIVE) RSV (PCR) (NEGATIVE) SARS-CoV-2 (PCR) (NEGATIVE) Slides for Path Review YES ABO Group Rh Factor Antibody Screen (NEGATIVE) 01/24/24 01/24/24 01/24/24 Range/Units 14:30 14:33 15:36 WBC (3.98-10.04) x10^3/uL RBC (3.93-5.22) x10^6/uL Hgb (11.2-15.7) g/dL Hct (34.1-44.9) % MCV (79.4-94.8) fL MCH (25.6-32.2) pg MCHC (32.2-35.5) g/dL RDW (11.7-14.4) % Plt Count (182-369) x10^3/uL MPV (9.4-12.3) fL Gran % (34.0-71.1) % Immature Gran % (Auto) (0.001-0.429) % Nucleat RBC Rel Count (0.00-0.2) % Eos # (Auto) (0.04-0.36) x10^3/uL Immature Gran # (Auto) (0.001-0.031) x10^3u/L Absolute Lymphs (auto) (1.18-3.74) x10^3/uL Absolute Monos (auto) (0.24-0.86) x10^3/uL Absolute Nucleated RBC (0.00-0.012) x10^3u/L Lymphocytes % (19.3-51.7) % Monocytes % (4.7-12.5) % Eosinophils % (0.7-5.8) % Basophils % (0.1-1.2) % Absolute Granulocytes (1.56-6.13) x10^3/uL Basophils # (0.01-0.08) x10^3/uL Sodium (135-145) mmol/L Potassium (3.5-5.1) mmol/L Chloride (98-107) mmol/L Carbon Dioxide (22-30) mmol/L Anion Gap (5-15) MEQ/L BUN (7-17) mg/dL Creatinine (0.52-1.04) mg/dL Estimated GFR ML/MIN Glucose (74-106) mg/dL Lactic Acid (0.4-2.0) Calcium (8.4-10.2) mg/dL Total Bilirubin (0.2-1.3) mg/dL AST (14-36) U/L ALT (0-35) U/L Alkaline Phosphatase (38-126) U/L Troponin I (0.000-0.033) ng/mL NT-Pro-B Natriuret Pep (<300) pg/mL Serum Total Protein (6.3-8.2) g/dL Albumin (3.5-5.0) g/dL Procalcitonin 0.083 H (0.030-0.080) ng/mL Urine Color (Yellow) Urine Appearance (Clear) Urine pH (4.6-8.0) Ur Specific [place] (1.005-1.030) Urine Protein (Negative) Urine Glucose (UA) (Negative) mg/dL Urine Ketones (Negative) Urine Blood (Negative) Urine Nitrite (Negative) Urine Bilirubin (Negative) Urine Urobilinogen (0.2) mg/dL Ur Leukocyte Esterase (Negative) U Hyaline Cast (Auto) (0-2) /LPF Urine Microscopic RBC (0-5) /HPF Urine Microscopic WBC (0-5) /HPF Ur Epithelial Cells (None Seen) /HPF Urine Bacteria (None Seen) /HPF Urine Culture Reflexed (NO) Influenza Type A Ag NEGATIVE (NEGATIVE) Influenza Type B Ag NEGATIVE (NEGATIVE) RSV (PCR) NEGATIVE (NEGATIVE) SARS-CoV-2 (PCR) NEGATIVE (NEGATIVE) Slides for Path Review ABO Group A Rh Factor POSITIVE Antibody Screen NEGATIVE (NEGATIVE) 01/24/24 01/24/24 01/24/24 Range/Units 17:02 17:45 18:08 WBC (3.98-10.04) x10^3/uL RBC (3.93-5.22) x10^6/uL Hgb (11.2-15.7) g/dL Hct (34.1-44.9) % MCV (79.4-94.8) fL MCH (25.6-32.2) pg MCHC (32.2-35.5) g/dL RDW (11.7-14.4) % Plt Count (182-369) x10^3/uL MPV (9.4-12.3) fL Gran % (34.0-71.1) % Immature Gran % (Auto) (0.001-0.429) % Nucleat RBC Rel Count (0.00-0.2) % Eos # (Auto) (0.04-0.36) x10^3/uL Immature Gran # (Auto) (0.001-0.031) x10^3u/L Absolute Lymphs (auto) (1.18-3.74) x10^3/uL Absolute Monos (auto) (0.24-0.86) x10^3/uL Absolute Nucleated RBC (0.00-0.012) x10^3u/L Lymphocytes % (19.3-51.7) % Monocytes % (4.7-12.5) % Eosinophils % (0.7-5.8) % Basophils % (0.1-1.2) % Absolute Granulocytes (1.56-6.13) x10^3/uL Basophils # (0.01-0.08) x10^3/uL Sodium (135-145) mmol/L Potassium (3.5-5.1) mmol/L Chloride (98-107) mmol/L Carbon Dioxide (22-30) mmol/L Anion Gap (5-15) MEQ/L BUN (7-17) mg/dL Creatinine (0.52-1.04) mg/dL Estimated GFR ML/MIN Glucose (74-106) mg/dL Lactic Acid 2.1 H (0.4-2.0) Calcium (8.4-10.2) mg/dL Total Bilirubin (0.2-1.3) mg/dL AST (14-36) U/L ALT (0-35) U/L Alkaline Phosphatase (38-126) U/L Troponin I < 0.012 (0.000-0.033) ng/mL NT-Pro-B Natriuret Pep (<300) pg/mL Serum Total Protein (6.3-8.2) g/dL Albumin (3.5-5.0) g/dL Procalcitonin (0.030-0.080) ng/mL Urine Color Yellow (Yellow) Urine Appearance Clear (Clear) Urine pH 7.0 (4.6-8.0) Ur Specific [place] 1.015 (1.005-1.030) Urine Protein Negative (Negative) Urine Glucose (UA) Negative (Negative) mg/dL Urine Ketones Negative (Negative) Urine Blood Negative (Negative) Urine Nitrite Negative (Negative) Urine Bilirubin Negative (Negative) Urine Urobilinogen 0.2 (0.2) mg/dL Ur Leukocyte Esterase Negative (Negative) U Hyaline Cast (Auto) NONE SEEN (0-2) /LPF Urine Microscopic RBC 0-2 (0-5) /HPF Urine Microscopic WBC 0-2 (0-5) /HPF Ur Epithelial Cells None Seen (None Seen) /HPF Urine Bacteria None Seen (None Seen) /HPF Urine Culture Reflexed NO (NO) Influenza Type A Ag (NEGATIVE) Influenza Type B Ag (NEGATIVE) RSV (PCR) (NEGATIVE) SARS-CoV-2 (PCR) (NEGATIVE) Slides for Path Review ABO Group Rh Factor Antibody Screen (NEGATIVE) 01/24/24 01/24/24 01/25/24 Range/Units 19:47 21:54 02:30 WBC (3.98-10.04) x10^3/uL RBC (3.93-5.22) x10^6/uL Hgb (11.2-15.7) g/dL Hct (34.1-44.9) % MCV (79.4-94.8) fL MCH (25.6-32.2) pg MCHC (32.2-35.5) g/dL RDW (11.7-14.4) % Plt Count (182-369) x10^3/uL MPV (9.4-12.3) fL Gran % (34.0-71.1) % Immature Gran % (Auto) (0.001-0.429) % Nucleat RBC Rel Count (0.00-0.2) % Eos # (Auto) (0.04-0.36) x10^3/uL Immature Gran # (Auto) (0.001-0.031) x10^3u/L Absolute Lymphs (auto) (1.18-3.74) x10^3/uL Absolute Monos (auto) (0.24-0.86) x10^3/uL Absolute Nucleated RBC (0.00-0.012) x10^3u/L Lymphocytes % (19.3-51.7) % Monocytes % (4.7-12.5) % Eosinophils % (0.7-5.8) % Basophils % (0.1-1.2) % Absolute Granulocytes (1.56-6.13) x10^3/uL Basophils # (0.01-0.08) x10^3/uL Sodium (135-145) mmol/L Potassium (3.5-5.1) mmol/L Chloride (98-107) mmol/L Carbon Dioxide (22-30) mmol/L Anion Gap (5-15) MEQ/L BUN (7-17) mg/dL Creatinine (0.52-1.04) mg/dL Estimated GFR ML/MIN Glucose (74-106) mg/dL Lactic Acid 3.2 H 2.2 H (0.4-2.0) Calcium (8.4-10.2) mg/dL Total Bilirubin (0.2-1.3) mg/dL AST (14-36) U/L ALT (0-35) U/L Alkaline Phosphatase (38-126) U/L Troponin I < 0.012 (0.000-0.033) ng/mL NT-Pro-B Natriuret Pep (<300) pg/mL Serum Total Protein (6.3-8.2) g/dL Albumin (3.5-5.0) g/dL Procalcitonin (0.030-0.080) ng/mL Urine Color (Yellow) Urine Appearance (Clear) Urine pH (4.6-8.0) Ur Specific [place] (1.005-1.030) Urine Protein (Negative) Urine Glucose (UA) (Negative) mg/dL Urine Ketones (Negative) Urine Blood (Negative) Urine Nitrite (Negative) Urine Bilirubin (Negative) Urine Urobilinogen (0.2) mg/dL Ur Leukocyte Esterase (Negative) U Hyaline Cast (Auto) (0-2) /LPF Urine Microscopic RBC (0-5) /HPF Urine Microscopic WBC (0-5) /HPF Ur Epithelial Cells (None Seen) /HPF Urine Bacteria (None Seen) /HPF Urine Culture Reflexed (NO) Influenza Type A Ag (NEGATIVE) Influenza Type B Ag (NEGATIVE) RSV (PCR) (NEGATIVE) SARS-CoV-2 (PCR) (NEGATIVE) Slides for Path Review ABO Group Rh Factor Antibody Screen (NEGATIVE) Radiology Exams: Radiology Procedures Category Date Time Status CHEST 1 VIEW (PORTABLE) Stat Exams 01/24/24 14:02 Completed Assessment/Plan (1) Sepsis Current Visit: Yes Status: Acute Assessment & Plan: (1) Sepsis Current Visit: Yes Status: Acute Assessment & Plan: -most likely secondary to pneumonia -meets criteria with tachycardia, tachypnea, WBC at 18.2, pneumonia on CXR -supplemental oxygen with spo2 goal 88-92% - on 3L at baseline -Received 1L IVF bolus -procal, blood culture, sputum culture, UA, LA to be obtained -ED documentation reviewed, Azithromycin started in ED, will continue with cefepime/vanc -Target map >65 -PPI with protonix 01/25/24: -CBC reviewed - WBC improving at 10.1<18.2 -Continue vanc/cefepime/solumedrol -Blood and sputum cultures pending -LA elevated at 2.2<3.2>2.1 -received 500ml fluid bolus last night - will be receiving 2 units of LPRBC today -UA negative (2) Pneumonia Current Visit: Yes Status: Acute Assessment & Plan: -cxr demonstrates new right infrahilar interstitial alveolar opacities, favoring pneumonia/pneumonitis -see plan for sepsis -cefepime/vanc - previous sputum culture with pseudomonas -solumedrol q8H -supplemental oxygen -Nebs/INH -RT eval +- Flu shot on discharge Code(s): J18.9 - PNEUMONIA, UNSPECIFIED ORGANISM (3) Acute respiratory failure Current Visit: No Status: Acute Assessment & Plan: -2/2 pneumonia see plan Code(s): J96.00 - ACUTE RESPIRATORY FAILURE, UNSP W HYPOXIA OR HYPERCAPNIA (4) Iron deficiency anemia Current Visit: Yes Status: Acute Assessment & Plan: -chronic on ferrous sulfate -previous admission notes reviewed, iron sat at 6% on 12/19/23 -Hgb at 7.4 today 01/24: -2 units lprbc today - lasix after each unit - monitor for fluid overload Code(s): D50.9 - IRON DEFICIENCY ANEMIA, UNSPECIFIED (5) Anxiety and depression Current Visit: Yes Status: Acute Assessment & Plan: -continue home meds Code(s): F41.9 - ANXIETY DISORDER, UNSPECIFIED; F32.A - DEPRESSION, UNSPECIFIED (6) Hypothyroid Current Visit: Yes Status: Acute Assessment & Plan: -Continue home meds Code(s): E03.9 - HYPOTHYROIDISM, UNSPECIFIED (7) Bipolar 1 disorder Current Visit: Yes Status: Acute Assessment & Plan: -continue home meds Code(s): F31.9 - BIPOLAR DISORDER, UNSPECIFIED (8) History of pulmonary embolism Current Visit: Yes Status: Acute Assessment & Plan: -on Xarelto - continue Code(s): Z86.711 - PERSONAL HISTORY OF PULMONARY EMBOLISM (9) CHF (congestive heart failure) Current Visit: No Status: Acute Assessment & Plan: -BNP reviewed at 274 -CXR favoring pneumonia -No recent echo on file -continue home meds -daily weights, monitor for fluid overload closely Code(s): I50.9 - HEART FAILURE, UNSPECIFIED (10) COPD exacerbation Current Visit: No Status: Resolved Assessment & Plan: -2/2 to pneumonia see plan VTE: Xarelto PPI: protonix Dispo: 2-3 days (2) Pneumonia Current Visit: Yes Status: Acute Qualifiers: Code(s): J18.9 - PNEUMONIA, UNSPECIFIED ORGANISM (3) Acute respiratory failure Current Visit: No Status: Acute Qualifiers: Code(s): J96.00 - ACUTE RESPIRATORY FAILURE, UNSP W HYPOXIA OR HYPERCAPNIA (4) Iron deficiency anemia Current Visit: Yes Status: Acute Code(s): D50.9 - IRON DEFICIENCY ANEMIA, UNSPECIFIED (5) Anxiety and depression Current Visit: Yes Status: Acute Code(s): F41.9 - ANXIETY DISORDER, UNSPECIFIED; F32.A - DEPRESSION, UNSPECIFIED (6) Hypothyroid Current Visit: Yes Status: Acute Code(s): E03.9 - HYPOTHYROIDISM, UNSPECIFIED (7) Bipolar 1 disorder Current Visit: Yes Status: Acute Code(s): F31.9 - BIPOLAR DISORDER, UNSPECIFIED (8) History of pulmonary embolism Current Visit: Yes Status: Acute Code(s): Z86.711 - PERSONAL HISTORY OF PULMONARY EMBOLISM (9) CHF (congestive heart failure) Current Visit: No Status: Acute Code(s): I50.9 - HEART FAILURE, UNSPECIFIED (10) COPD exacerbation Current Visit: No Status: Resolved Code(s): J44.1 - CHRONIC OBSTRUCTIVE PULMONARY DISEASE W (ACUTE) EXACERBATION
[2024-01-25] MEDS ORDERED: Advair Hfa 115/21 Common canister IH SCH (07:00)
[2024-01-25] MEDS ORDERED: MEDICATION INTERVENTION MC SCH (07:15)
[2024-01-25 07:27] LABS: Absolute Neutrophil Ct (ANC) 8.94 x10^3/uL (1.56-6.13); BASOPHIL % 0.1 % (0.1-1.2); Basophil (Absolute #) 0.01 x10^3/uL (0.01-0.08); Eosinophil % 0.7 % (0.7-5.8); Eosinophil (Absolute #) 0.07 x10^3/uL (0.04-0.36); Hematocrit 24.8 % (34.1-44.9); Hemoglobin 7.1 g/dL (11.2-15.7); IMMATURE GRAN # 0.06 x10^3u/L (0.001-0.031); IMMATURE GRAN % 0.6 % (0.001-0.429); Lymphocyte (Absolute #) 0.69 x10^3/uL (1.18-3.74); Lymphocytes % 6.8 % (19.3-51.7); Mean Cell Volume 77.7 fL (79.4-94.8); Mean Corpuscular Hemoglobin 22.3 pg (25.6-32.2); Mean Corpuscular Hgb Concent. 28.6 g/dL (32.2-35.5); Mean Platelet Volume 9.5 fL (9.4-12.3); Monocyte (Absolute #) 0.36 x10^3/uL (0.24-0.86); Monocytes % 3.6 % (4.7-12.5); NUCLEATED RBC # 0.02 x10^3u/L (0.00-0.012); NUCLEATED RBC % 0.2 % (0.00-0.2); Neutrophil % 88.2 % (34.0-71.1); Platelet Count 408 x10^3/uL (182-369); Red Blood Count 3.19 x10^6/uL (3.93-5.22); Red Cell Distribution Width 19.7 % (11.7-14.4); White Blood Count 10.1 x10^3/uL (3.98-10.04)
[2024-01-25 07:40] LABS: ALBUMIN 3.9 g/dL (3.5-5.0); ANION GAP 11.6 MEQ/L (5-15); BILIRUBIN,TOTAL 0.3 mg/dL (0.2-1.3); Calcium 9.1 mg/dL (8.4-10.2); Creatinine 1 0.85 mg/dL (0.52-1.04); EST GLOMERULAR FILTRATION RATE 75.5 ML/MIN; Potassium 4.2 mmol/L (3.5-5.1); Total Protein 7.1 g/dL (6.3-8.2)
[2024-01-25 07:47] LABS: Slide Review 1 YES
[2024-01-25] MEDS ORDERED: NON-FORMULARY ITEM (Gabapentin [Gabapentin] 600 MG Tablet) PO SCH (08:00)
[2024-01-25] MEDS: XARELTO 10 MG TABLET PO SCH (08:02)
[2024-01-25] MEDS: ZOLOFT 50 MG TABLET PO SCH (08:03)
[2024-01-25] MEDS: Imdur 30 MG PO SCH (08:03)
[2024-01-25] MEDS: Neurontin PO SCH (08:04)
[2024-01-25] MEDS: SYNTHROID 25 MCG PO SCH (08:04)
[2024-01-25] MEDS: THEOPHYLLINE ER 24HR PO SCH (08:05)
[2024-01-25] MEDS: Flonase NASAL NS SCH (08:05)
[2024-01-25 09:44] LABS: CROSS MATCH (PRBC) COMPATIBLE (COMPATIBLE)
[2024-01-25 09:45] LABS: CROSS MATCH (PRBC) COMPATIBLE (COMPATIBLE)
[2024-01-25] MEDS ORDERED: NON-FORMULARY ITEM (Rivaroxaban [Xarelto] 20 MG Tablet) PO SCH (10:00)
[2024-01-25] MEDS ORDERED: NON-FORMULARY ITEM (Theophylline Anhydrous [Theophylline Er] 300 MG Tab.Er.12h) PO SCH (10:00)
[2024-01-25] MEDS ORDERED: NON-FORMULARY ITEM (Sertraline Hcl 100 Mg [Zoloft 100 Mg] 100 MG Tab) PO SCH (10:00)
[2024-01-25] MEDS: Sodium Chloride 0.9% 250 ML 250 ML IV SCH (10:08)
[2024-01-25] MEDS: TYLENOL 325 MG PO PRN (10:27)
[2024-01-25] MEDS: PHARMACY DOSING REQUIRED: VANCOMYCIN IV ONE (10:53)
[2024-01-25] MEDS ORDERED: VENTOLIN COMMON CANISTER IH SCH (11:00)
[2024-01-25] MEDS: Lasix 20 MG/2 ML IV SCH (13:47)
[2024-01-25 18:22] LABS: Hematocrit 28.7 % (34.1-44.9); Hemoglobin 8.7 g/dL (11.2-15.7)
--- NOTE | 2024-01-26 04:50 | PCM.NOTE ---
Date and Time: 01/26/24 0449 Subjective Assessment: is a 68 year old female with a pmhx of COPD, PE (diagnosed in May 2023 on Xarelto), hypothyroidism, CAD, HLD, PE, biopolar, anxiety/depression, CHF, chronic hypoxic respiratory failure on 3 L oxygen, and recurrent persistent microcytic anemia who presented to ED with complaints dyspnea, wheezing, sore throat, fever/chills, and a productive cough with green/yellow sputum for the last three days. Patient reports symptoms have progressed overnight with her shortness of breath making it difficult to ambulate and perform ADLs. She does have chronic iron deficiency anemia and has received multiple transfusions in the past. She was set up at her last admission to see Dr. Salcido (hematology) f or iron infusions but has issues with transportation and was unable to follow up. Denies hematuria, dark/anthony blood in stools, CP, abdominal pain, nausea, vomiting, or diarrhea. Patient septic on presentation with tachypnea, tachycardia, and leukocytosis with WBC at 18.2. CXR demonstrates new right infrahilar interstitial alveolar opacities, favoring pneumonia/pneumonitis. Labs also remarkable for microcytic anemia with hgb at 7.4. Patient received 1L fluid bolus, DuoNebs, and azithromycin in ED. Admit for Sepsis secondary to pneumonia. Patient with previous sputum cultures positive for pseudomonas. Plan continued sepsis workup and IV abx cefepime/vanc. 01/25/24: Patient endorsing improvement of dyspnea. Cough is still [employer]. Feeling weak this morning. Discussed labs with hgb at 7.1 will transfuse 2 units today with lasix after each unit. Advised nursing to run blood product slow with her h/o CHF. Lung sounds are coarse with exp wheezing. Plan for continued IV abx/steroid. WBC improving. Cultures pending. Denies fever, cp, abdominal pain, SHELLEY, dizziness, N/V/D. 01/25: Patient feeling better today and requesting discharge home for the holiday. She is at her baseline oxygen of 3L. Hgb levels have improved with 2 unit blood transfusion and now stable at 8.8. No growth noted on blood culture. Sputum culture pending collection. Objective Data Vital Signs: Vital Signs - 24 hr Temp Pulse Resp BP Pulse Ox 01/26/24 03:45 98.2 F 96 H 19 112/57 98 11/27/24 01:33 84 16 97 01/25/24 23:41 97.9 F 84 20 105/61 98 01/25/24 20:00 98.2 F 82 18 110/54 99 01/25/24 18:54 96 H 14 96 01/25/24 15:36 97.6 F 94 H 20 105/56 98 01/25/24 13:54 98 H 20 97 01/25/24 13:00 97.8 F 94 H 16 104/51 94 L 01/25/24 07:33 83 20 96 01/25/24 07:18 97.6 F 85 16 112/55 95 Pain Assessment - Last Documented Pain Intensity 3 Pain Scale Used 0-10 Pain Scale Intake and Output: Intake & Output 01/23/24 01/24/24 01/25/24 01/26/24 11:59 11:59 11:59 11:59 Intake Total 840 2230 Output Total 500 4100 Balance 340 -1870 Weight 71.3 kg Lab Results: Lab Results-Last 24 Hours 01/24/24 01/25/24 01/25/24 Range/Units 15:41 07:25 07:25 WBC 10.1 H (3.98-10.04) x10^3/uL RBC 3.19 L (3.93-5.22) x10^6/uL Hgb 7.1 L (11.2-15.7) g/dL Hct 24.8 L (34.1-44.9) % MCV 77.7 L (79.4-94.8) fL MCH 22.3 L (25.6-32.2) pg MCHC 28.6 L (32.2-35.5) g/dL RDW 19.7 H (11.7-14.4) % Plt Count 408 H (182-369) x10^3/uL MPV 9.5 (9.4-12.3) fL Gran % 88.2 H (34.0-71.1) % Immature Gran % (Auto) 0.6 H (0.001-0.429) % Nucleat RBC Rel Count 0.2 (0.00-0.2) % Eos # (Auto) 0.07 (0.04-0.36) x10^3/uL Immature Gran # (Auto) 0.06 H (0.001-0.031) x10^3u/L Absolute Lymphs (auto) 0.69 L (1.18-3.74) x10^3/uL Absolute Monos (auto) 0.36 (0.24-0.86) x10^3/uL Absolute Nucleated RBC 0.02 H (0.00-0.012) x10^3u/L Lymphocytes % 6.8 L (19.3-51.7) % Monocytes % 3.6 L (4.7-12.5) % Eosinophils % 0.7 (0.7-5.8) % Basophils % 0.1 (0.1-1.2) % Absolute Granulocytes 8.94 H (1.56-6.13) x10^3/uL Basophils # 0.01 (0.01-0.08) x10^3/uL Sodium 139 (135-145) mmol/L Potassium 4.2 (3.5-5.1) mmol/L Chloride 106 (98-107) mmol/L Carbon Dioxide 25 (22-30) mmol/L Anion Gap 11.6 (5-15) MEQ/L BUN 13 (7-17) mg/dL Creatinine 0.85 (0.52-1.04) mg/dL Estimated GFR 75.5 ML/MIN Glucose 121 H (74-106) mg/dL Calcium 9.1 (8.4-10.2) mg/dL Total Bilirubin 0.30 (0.2-1.3) mg/dL AST 20 (14-36) U/L ALT 22 (0-35) U/L Alkaline Phosphatase 72 (38-126) U/L Serum Total Protein 7.1 (6.3-8.2) g/dL Albumin 3.9 (3.5-5.0) g/dL Slides for Path Review YES Crossmatch COMPATIBLE (COMPATIBLE) 01/25/24 01/25/24 Range/Units 18:15 Unknown WBC (3.98-10.04) x10^3/uL RBC (3.93-5.22) x10^6/uL Hgb 8.7 L D (11.2-15.7) g/dL Hct 28.7 L (34.1-44.9) % MCV (79.4-94.8) fL MCH (25.6-32.2) pg MCHC (32.2-35.5) g/dL RDW (11.7-14.4) % Plt Count (182-369) x10^3/uL MPV (9.4-12.3) fL Gran % (34.0-71.1) % Immature Gran % (Auto) (0.001-0.429) % Nucleat RBC Rel Count (0.00-0.2) % Eos # (Auto) (0.04-0.36) x10^3/uL Immature Gran # (Auto) (0.001-0.031) x10^3u/L Absolute Lymphs (auto) (1.18-3.74) x10^3/uL Absolute Monos (auto) (0.24-0.86) x10^3/uL Absolute Nucleated RBC (0.00-0.012) x10^3u/L Lymphocytes % (19.3-51.7) % Monocytes % (4.7-12.5) % Eosinophils % (0.7-5.8) % Basophils % (0.1-1.2) % Absolute Granulocytes (1.56-6.13) x10^3/uL Basophils # (0.01-0.08) x10^3/uL Sodium (135-145) mmol/L Potassium (3.5-5.1) mmol/L Chloride (98-107) mmol/L Carbon Dioxide (22-30) mmol/L Anion Gap (5-15) MEQ/L BUN (7-17) mg/dL Creatinine (0.52-1.04) mg/dL Estimated GFR ML/MIN Glucose (74-106) mg/dL Calcium (8.4-10.2) mg/dL Total Bilirubin (0.2-1.3) mg/dL AST (14-36) U/L ALT (0-35) U/L Alkaline Phosphatase (38-126) U/L Serum Total Protein (6.3-8.2) g/dL Albumin (3.5-5.0) g/dL Slides for Path Review Crossmatch COMPATIBLE (COMPATIBLE) Radiology Exams: Radiology Procedures Category Date Time Status CHEST 1 VIEW (PORTABLE) Stat Exams 01/24/24 14:02 Completed Multi-Disciplinary Progress Notes: Multi-Disciplinary Progress Notes 01/25/24 11:40 Case Management Note by Edilma Schilling CALLED TO S/W PATIENT ATHLETIC COORDINATOR, KATELYN, AT [facility] ([phone]) BUT HAD TO LEAVE A MESSAGE.. Initialized on 01/25/24 11:40 - END OF NOTE Assessment/Plan (1) Sepsis Current Visit: Yes Status: Acute Assessment & Plan: -most likely secondary to pneumonia -meets criteria with tachycardia, tachypnea, WBC at 18.2, pneumonia on CXR -supplemental oxygen with spo2 goal 88-92% - on 3L at baseline -Received 1L IVF bolus -procal, blood culture, sputum culture, UA, LA to be obtained -ED documentation reviewed, Azithromycin started in ED, will continue with cefepime/vanc -Target map >65 -PPI with protonix 01/25/24: -CBC reviewed - WBC improving at 10.1<18.2 -Continue vanc/cefepime/solumedrol -Blood and sputum cultures pending -LA elevated at 2.2<3.2>2.1 -received 500ml fluid bolus last night - will be receiving 2 units of LPRBC today -UA negative (2) Pneumonia Current Visit: Yes Status: Acute Assessment & Plan: -cxr demonstrates new right infrahilar interstitial alveolar opacities, favoring pneumonia/pneumonitis -see plan for sepsis -cefepime/vanc - previous sputum culture with pseudomonas -solumedrol q8H -supplemental oxygen -Nebs/INH -RT eval +- Flu shot on discharge Code(s): J18.9 - PNEUMONIA, UNSPECIFIED ORGANISM (3) Acute respiratory failure Current Visit: No Status: Acute Assessment & Plan: -2/2 pneumonia see plan Code(s): J96.00 - ACUTE RESPIRATORY FAILURE, UNSP W HYPOXIA OR HYPERCAPNIA (4) Iron deficiency anemia Current Visit: Yes Status: Acute Assessment & Plan: -chronic on ferrous sulfate -previous admission notes reviewed, iron sat at 6% on 12/19/23 -Hgb at 7.4 today 01/24: -2 units lprbc today - lasix after each unit - monitor for fluid overload Code(s): D50.9 - IRON DEFICIENCY ANEMIA, UNSPECIFIED (5) Anxiety and depression Current Visit: Yes Status: Acute Assessment & Plan: -continue home meds Code(s): F41.9 - ANXIETY DISORDER, UNSPECIFIED; F32.A - DEPRESSION, UNSPECIFIED (6) Hypothyroid Current Visit: Yes Status: Acute Assessment & Plan: -Continue home meds Code(s): E03.9 - HYPOTHYROIDISM, UNSPECIFIED (7) Bipolar 1 disorder Current Visit: Yes Status: Acute Assessment & Plan: -continue home meds Code(s): F31.9 - BIPOLAR DISORDER, UNSPECIFIED (8) History of pulmonary embolism Current Visit: Yes Status: Acute Assessment & Plan: -on Xarelto - continue Code(s): Z86.711 - PERSONAL HISTORY OF PULMONARY EMBOLISM (9) CHF (congestive heart failure) Current Visit: No Status: Acute Assessment & Plan: -BNP reviewed at 274 -CXR favoring pneumonia -No recent echo on file -continue home meds -daily weights, monitor for fluid overload closely Code(s): I50.9 - HEART FAILURE, UNSPECIFIED (10) COPD exacerbation Current Visit: No Status: Resolved Assessment & Plan: -2/2 to pneumonia see plan VTE: Xarelto PPI: protonix Dispo: 2-3 days (2) Pneumonia Current Visit: Yes Status: Acute Qualifiers: Code(s): J18.9 - PNEUMONIA, UNSPECIFIED ORGANISM (3) Acute respiratory failure Current Visit: No Status: Acute Qualifiers: Code(s): J96.00 - ACUTE RESPIRATORY FAILURE, UNSP W HYPOXIA OR HYPERCAPNIA (4) Iron deficiency anemia Current Visit: Yes Status: Acute Code(s): D50.9 - IRON DEFICIENCY ANEMIA, UNSPECIFIED (5) Anxiety and depression Current Visit: Yes Status: Acute Code(s): F41.9 - ANXIETY DISORDER, UNSPECIFIED; F32.A - DEPRESSION, UNSPECIFIED (6) Hypothyroid Current Visit: Yes Status: Acute Code(s): E03.9 - HYPOTHYROIDISM, UNSPECIFIED (7) Bipolar 1 disorder Current Visit: Yes Status: Acute Code(s): F31.9 - BIPOLAR DISORDER, UNSPECIFIED (8) History of pulmonary embolism Current Visit: Yes Status: Acute Code(s): Z86.711 - PERSONAL HISTORY OF PULM ONARY EMBOLISM (9) CHF (congestive heart failure) Current Visit: No Status: Acute Code(s): I50.9 - HEART FAILURE, UNSPECIFIED (10) COPD exacerbation Current Visit: No Status: Resolved Code(s): J44.1 - CHRONIC OBSTRUCTIVE PULMONARY DISEASE W (ACUTE) EXACERBATION
[2024-01-26 05:07] LABS: Absolute Neutrophil Ct (ANC) 12.61 x10^3/uL (1.56-6.13); BASOPHIL % 0.1 % (0.1-1.2); Basophil (Absolute #) 0.01 x10^3/uL (0.01-0.08); Eosinophil % 0.4 % (0.7-5.8); Eosinophil (Absolute #) 0.05 x10^3/uL (0.04-0.36); Hematocrit 29.8 % (34.1-44.9); Hemoglobin 8.8 g/dL (11.2-15.7); IMMATURE GRAN # 0.07 x10^3u/L (0.001-0.031); IMMATURE GRAN % 0.5 % (0.001-0.429); Lymphocyte (Absolute #) 0.37 x10^3/uL (1.18-3.74); Lymphocytes % 2.7 % (19.3-51.7); Mean Cell Volume 78.8 fL (79.4-94.8); Mean Corpuscular Hemoglobin 23.3 pg (25.6-32.2); Mean Corpuscular Hgb Concent. 29.5 g/dL (32.2-35.5); Mean Platelet Volume 10.5 fL (9.4-12.3); Monocyte (Absolute #) 0.38 x10^3/uL (0.24-0.86); Monocytes % 2.8 % (4.7-12.5); NUCLEATED RBC # 0.03 x10^3u/L (0.00-0.012); NUCLEATED RBC % 0.2 % (0.00-0.2); Neutrophil % 93.5 % (34.0-71.1); Platelet Count 386 x10^3/uL (182-369); Red Blood Count 3.78 x10^6/uL (3.93-5.22); Red Cell Distribution Width 18.8 % (11.7-14.4); White Blood Count 13.5 x10^3/uL (3.98-10.04)
[2024-01-26 05:24] LABS: ALBUMIN 3.7 g/dL (3.5-5.0); ANION GAP 13.1 MEQ/L (5-15); BILIRUBIN,TOTAL 0.3 mg/dL (0.2-1.3); Calcium 8.8 mg/dL (8.4-10.2); Creatinine 1 1.06 mg/dL (0.52-1.04); EST GLOMERULAR FILTRATION RATE 57.9 ML/MIN; Potassium 3.8 mmol/L (3.5-5.1); Total Protein 6.6 g/dL (6.3-8.2)
[2024-01-26 06:25] LABS: Slide Review 1 YES
--- NOTE | 2024-01-26 11:31 | PCM.DS ---
Discharge Summary Date of Admission: 01/24/24 16:54 Date of Discharge: 01/26/24 Admitting Physician: MADHURI ARNDT MD Primary Care Provider: NISHA,WEN Allergies Allergies morphine Allergy (Severe, Verified 01/24/24 14:11) Fainting oxycodone Allergy (Verified 01/24/24 14:11) Shortness of Breath Penicillins Allergy (Verified 01/24/24 14:11) oxymorphone Adverse Reaction (Severe, Verified 01/24/24 14:11) Fainting Coconut Adverse Reaction (Intermediate, Verified 01/24/24 14:11) Headache bupropion HCl [From Wellbutrin] Adverse Reaction (Mild, Verified 01/24/24 14:11) [facility] Summary - Hospital Course Hospital Course: is a 68 year old female with a pmhx of COPD, PE (diagnosed in May 2023 on Xarelto), hypothyroidism, CAD, HLD, PE, biopolar, anxiety/depression, CHF, chronic hypoxic respiratory failure on 3 L oxygen, and recurrent persistent microcytic anemia who presented to ED with complaints dyspnea, wheezing, sore throat, fever/chills, and a productive cough with green/yellow sputum for the last three days. Patient reports symptoms have progressed overnight with her shortness of breath making it difficult to ambulate and perform ADLs. She does have chronic iron deficiency anemia and has received multiple transfusions in the past. She was set up at her last admission to see Dr. Salcido (hematology) for iron infusions but has issues with transportation and was unable to follow up. Denies hematuria, dark/anthony blood in stools, CP, abdominal pain, nausea, vomiting, or diarrhea. Patient septic on presentation with tachypnea, tachycardia, and leukocytosis with WBC at 18.2. CXR demonstrates new right infr ahilar interstitial alveolar opacities, favoring pneumonia/pneumonitis. Labs also remarkable for microcytic anemia with hgb at 7.4. Patient received 1L fluid bolus, DuoNebs, and azithromycin in ED. Admit for Sepsis secondary to pneumonia. Patient with previous sputum cultures positive for pseudomonas. Plan continued sepsis workup and IV abx cefepime/vanc. 01/25/24: Patient endorsing improvement of dyspnea. Cough is still [employer]. Feeling weak this morning. Discussed labs with hgb at 7.1 will transfuse 2 units today with lasix after each unit. Advised nursing to run blood product slow with her h/o CHF. Lung sounds are coarse with exp wheezing. Plan for continued IV abx/steroid. WBC improving. Cultures pending. Denies fever, cp, abdominal pain, SHELLEY, dizziness, N/V/D. 01/25: Patient feeling better today and requesting discharge home for the holiday. She is at her baseline oxygen of 3L. Hgb levels have improved with 2 unit blood transfusion and now stable at 8.8. No growth noted on blood culture. Sputum culture pending collection. Will discharge home on levaquin/steroid and follow culture. Advised patient follow up with PCP/pulm. Discharge Note New Diagnosis:pneumonia New Medications: levaquin/ medrol dose pack Follow Up: pcp/pulm Results pending: blood/sputum culture Latest Assessment & Plan (1) Sepsis Current Visit: Yes Status: Acute Assessment & Plan: -most likely secondary to pneumonia -meets criteria with tachycardia, tachypnea, WBC at 18.2, pneumonia on CXR -supplemental oxygen with spo2 goal 88-92% - on 3L at baseline -Received 1L IVF bolus -procal, blood culture, sputum culture, UA, LA to be obtained -ED documentation reviewed, Azithromycin started in ED, will continue with cefepime/vanc -Target map >65 -PPI with protonix 01/25/24: -CBC reviewed - WBC improving at 10.1<18.2 -Continue vanc/cefepime/solumedrol -Blood and sputum cultures pending -LA elevated at 2.2<3.2>2.1 -received 500ml fluid bolus last night - will be receiving 2 units of LPRBC today -UA negative 01/25: -Improved - will send home per pt request on levaquin and follow culture- patient has nebs/inh at home (2) Pneumonia Current Visit: Yes Status: Acute Assessment & Plan: -cxr demonstrates new right infrahilar interstitial alveolar opacities, favoring pneumonia/pneumonitis -see plan for sepsis -cefepime/vanc - previous sputum culture with pseudomonas -solumedrol q8H -supplemental oxygen -Nebs/INH -RT eval +- Flu shot on discharge Code(s): J18.9 - PNEUMONIA, UNSPECIFIED ORGANISM (3) Acute respiratory failure Current Visit: No Status: Acute Assessment & Plan: -2/2 pneumonia see plan Code(s): J96.00 - ACUTE RESPIRATORY FAILURE, UNSP W HYPOXIA OR HYPERCAPNIA (4) Iron deficiency anemia Current Visit: Yes Status: Acute Assessment & Plan: -chronic on ferrous sulfate -previous admission notes reviewed, iron sat at 6% on 12/19/23 -Hgb at 7.4 today 01/24: -2 units lprbc today - lasix after each unit - monitor for fluid overload Code(s): D50.9 - IRON DEFICIENCY ANEMIA, UNSPECIFIED (5) Anxiety and depression Current Visit: Yes Status: Acute Assessment & Plan: -continue home meds Code(s): F41.9 - ANXIETY DISORDER, UNSPECIFIED; F32.A - DEPRESSION, UNSPECIFIED (6) Hypothyroid Current Visit: Yes Status: Acute Assessment & Plan: -Continue home meds Code(s): E03.9 - HYPOTHYROIDISM, UNSPECIFIED (7) Bipolar 1 disorder Current Visit: Yes Status: Acute Assessment & Plan: -continue home meds Code(s): F31.9 - BIPOLAR DISORDER, UNSPECIFIED (8) History of pulmonary embolism Current Visit: Yes Status: Acute Assessment & Plan: -on Xarelto - continue Code(s): Z86.711 - PERSONAL HISTORY OF PULMONARY EMBOLISM (9) CHF (congestive heart failure) Current Visit: No Status: Acute Assessment & Plan: -BNP reviewed at 274 -CXR favoring pneumonia -No recent echo on file -continue home meds -daily weights, monitor for fluid overload closely Code(s): I50.9 - HEART FAILURE, UNSPECIFIED (10) COPD exacerbation Current Visit: No Status: Resolved Assessment & Plan: -2/2 to pneumonia see plan I spent 35 minutes [id number] with the patient on the day of discharge performing discharge exam, discussing hospital stay and discharge instructions with patient and caregivers, preparation of discharge records, prescriptions & referral forms and addressing any questions/concerns the patient had as documented above. - Vitals & Intake/Output Vital Signs: Vital Signs Temperature 97.7 F 01/26/24 07:39 Pulse Rate 67 01/26/24 07:39 Respiratory Rate 17 01/26/24 07:39 Blood Pressure 149/80 01/26/24 07:39 O2 Sat by Pulse Oximetry 99 01/26/24 07:39 Intake & Output: Intake & Output 01/23/24 01/24/24 01/25/24 01/26/24 11:59 11:59 11:59 11:59 Intake Total 840 2710 Output Total 500 4100 Balance 340 -1390 Weight 71.3 kg 71.532 kg - Lab Result Diagrams: 01/26/24 05:04 01/26/24 05:04 Lab Results-Last 24 Hrs: Lab Results-Last 24 Hours 01/25/24 01/26/24 01/26/24 Range/Units 18:15 05:00 05:04 WBC 13.5 H (3.98-10.04) x10^3/uL RBC 3.78 L (3.93-5.22) x10^6/uL Hgb 8.7 L D 8.8 L (11.2-15.7) g/dL Hct 28.7 L 29.8 L (34.1-44.9) % MCV 78.8 L (79.4-94.8) fL MCH 23.3 L (25.6-32.2) pg MCHC 29.5 L (32.2-35.5) g/dL RDW 18.8 H (11.7-14.4) % Plt Count 386 H (182-369) x10^3/uL MPV 10.5 (9.4-12.3) fL Gran % 93.5 H (34.0-71.1) % Immature Gran % (Auto) 0.5 H (0.001-0.429) % Nucleat RBC Rel Count 0.2 (0.00-0.2) % Eos # (Auto) 0.05 (0.04-0.36) x10^3/uL Immature Gran # (Auto) 0.07 H (0.001-0.031) x10^3u/L Absolute Lymphs (auto) 0.37 L (1.18-3.74) x10^3/uL Absolute Monos (auto) 0.38 (0.24-0.86) x10^3/uL Absolute Nucleated RBC 0.03 H (0.00-0.012) x10^3u/L Lymphocytes % 2.7 L (19.3-51.7) % Monocytes % 2.8 L (4.7-12.5) % Eosinophils % 0.4 L (0.7-5.8) % Basophils % 0.1 (0.1-1.2) % Absolute Granulocytes 12.61 H (1.56-6.13) x10^3/uL Basophils # 0.01 (0.01-0.08) x10^3/uL Sodium (135-145) mmol/L Potassium (3.5-5.1) mmol/L Chloride (98-107) mmol/L Carbon Dioxide (22-30) mmol/L Anion Gap (5-15) MEQ/L BUN (7-17) mg/dL Creatinine (0.52-1.04) mg/dL Estimated GFR ML/MIN Glucose (74-106) mg/dL Lactic Acid 2.7 H (0.4-2.0) Calcium (8.4-10.2) mg/dL Total Bilirubin (0.2-1.3) mg/dL AST (14-36) U/L ALT (0-35) U/L Alkaline Phosphatase (38-126) U/L Serum Total Protein (6.3-8.2) g/dL Albumin (3.5-5.0) g/dL Slides for Path Review YES 01/26/24 Range/Units 05:04 WBC (3.98-10.04) x10^3/uL RBC (3.93-5.22) x10^6/uL Hgb (11.2-15.7) g/dL Hct (34.1-44.9) % MCV (79.4-94.8) fL MCH (25.6-32.2) pg MCHC (32.2-35.5) g/dL RDW (11.7-14.4) % Plt Count (182-369) x10^3/uL MPV (9.4-12.3) fL Gran % (34.0-71.1) % Immature Gran % (Auto) (0.001-0.429) % Nucleat RBC Rel Count (0.00-0.2) % Eos # (Auto) (0.04-0.36) x10^3/uL Immature Gran # (Auto) (0.001-0.031) x10^3u/L Absolute Lymphs (auto) (1.18-3.74) x10^3/uL Absolute Monos (auto) (0.24-0.86) x10^3/uL Absolute Nucleated RBC (0.00-0.012) x10^3u/L Lymphocytes % (19.3-51.7) % Monocytes % (4.7-12.5) % Eosinophils % (0.7-5.8) % Basophils % (0.1-1.2) % Absolute Granulocytes (1.56-6.13) x10^3/uL Basophils # (0.01-0.08) x10^3/uL Sodium 137 (135-145) mmol/L Potassium 3.8 (3.5-5.1) mmol/L Chloride 106 (98-107) mmol/L Carbon Dioxide 22 (22-30) mmol/L Anion Gap 13.1 (5-15) MEQ/L BUN 27 H (7-17) mg/dL Creatinine 1.06 H (0.52-1.04) mg/dL Estimated GFR 57.9 ML/MIN Glucose 153 H (74-106) mg/dL Lactic Acid (0.4-2.0) Calcium 8.8 (8.4-10.2) mg/dL Total Bilirubin 0.30 (0.2-1.3) mg/dL AST 20 (14-36) U/L ALT 20 (0-35) U/L Alkaline Phosphatase 64 (38-126) U/L Serum Total Protein 6.6 (6.3-8.2) g/dL Albumin 3.7 (3.5-5.0) g/dL Slides for Path Review Micro Results-Entire Visit: Microbiology 01/24/24 18:08 Blood Culture - Preliminary Blood 01/24/24 17:43 Blood Culture - Preliminary Blood - Radiology Exams Ordered Rad Exams-Entire Visit: Radiology Procedures Category Date Time Status CHEST 1 VIEW (PORTABLE) Stat Exams 01/24/24 14:02 Completed - Procedures and Test Procedures and Tests throughout Hospitalization: Therapy Orders & Screens 01/24/24 14:36 Respiratory Therapy Assessment DAILY Comment: 01/24/24 16:07 Respiratory Therapy Consult ONCE Comment: Reason For Exam: 01/24/24 17:05 Oxygen NASAL CANNULA 3 lpm Comment: Diagnosis: Pneumonia Discharge Exam General Appearance: no apparent distress Neurologic Exam: alert, oriented x 3, cooperative Eye Exam: PERRL Ears, Nose, Throat Exam: normal ENT inspection Neck Exam: normal inspection Respiratory Exam: crackles/rales Cardiovascular Exam: regular rate/rhythm, normal heart sounds Gastrointestinal/Abdomen Exam: soft, normal bowel sounds Pelvic Exam: deferred Rectal Exam: deferred Back Exam: normal inspection Extremity Exam: normal inspection Skin Exam: normal color Final Diagnosis/Problem List - Final Discharge Diagnosis/Problem (1) Sepsis Current Visit: Yes Status: Resolved (2) Pneumonia Current Visit: Yes Status: Acute Code(s): J18.9 - PNEUMONIA, UNSPECIFIED ORGANISM (3) Acute respiratory failure Current Visit: No Status: Chronic Code(s): J96.00 - ACUTE RESPIRATORY FAILURE, UNSP W HYPOXIA OR HYPERCAPNIA (4) Iron deficiency anemia Current Visit: Yes Status: Chronic Code(s): D50.9 - IRON DEFICIENCY ANEMIA, UNSPECIFIED (5) Anxiety and depression Current Visit: Yes Status: Chronic Code(s): F41.9 - ANXIETY DISORDER, UNSPECIFIED; F32.A - DEPRESSION, UNSPECIFIED (6) Hypothyroid Current Visit: Yes Status: Chronic Code(s): E03.9 - HYPOTHYROIDISM, UNSPECIFIED (7) Bipolar 1 disorder Current Visit: Yes Status: Chronic Code(s): F31.9 - BIPOLAR DISORDER, UNSPECIFIED (8) History of pulmonary embolism Current Visit: Yes Status: Chronic Code(s): Z86.711 - PERSONAL HISTORY OF PULMONARY EMBOLISM (9) CHF (congestive heart failure) Current Visit: No Status: Chronic Code(s): I50.9 - HEART FAILURE, UNSPECIFIED (10) COPD exacerbation Current Visit: No Status: Chronic Code(s): J44.1 - CHRONIC OBSTRUCTIVE PULMONARY DISEASE W (ACUTE) EXACERBATION - Discharge Disposition: Home, Self-Care Condition: Stable Prescriptions: New levoFLOXacin [Levofloxacin] 750 mg PO DAILY 10 Days #10 tablet Methylprednisolone Packet [Medrol Dosepack] 4 mg PO UD #30 packet Continue Fluticasone/Salmeterol Disc [Advair/Wixella 250-50 Diskus 14 Dose] 1 puff IH BID Famotidine 20 mg [Pepcid 20 MG] 20 mg PO BID Albuterol/Ipratropium Mdi [Combivent Inhaler] 1 puff IH QID Sertraline HCl 100 mg [Zoloft 100 MG] 200 mg PO DAILY Isosorbide Mononitrate 30 mg [Imdur 30 MG] 30 mg PO DAILY Tizanidine HCl 4 mg [Zanaflex 4 MG] 4 mg PO TID Quetiapine Fumarate [Seroquel] 300 mg PO HS Nitroglycerin 0.4 mg Tablet [Nitrostat 0.4 MG Tablet] 0.4 mg SL UD PRN PRN Reason: Chest Pain Theophylline Anhydrous [Theophylline ER] 300 mg PO DAILY Fluticasone Propionate [Flonase NASAL] 1 spray NS BID Levothyroxine Sodium 25 Mcg [Synthroid 25 Mcg] 25 mcg PO DAILY tablet Omeprazole 40 mg PO DAILY Albuterol Sulfate Mdi [ALBUTEROL/Proair Hfa MDI] 2 puff IH QID Clonazepam [Klonopin] 2 mg PO BID Gabapentin 1,200 mg PO BREAKFAST Gabapentin [Neurontin ] 2,400 mg PO HS cap Rivaroxaban [Xarelto] 20 mg PO DAILY Additional Instructions: F/U WITH AURY PORTILLO (INSIGHTS STRATEGIST-- KATELYN) IF NEED TO ASK FOR MORE HELP THAN ALREADY RECEIVING AT [phone]. Follow up with: CHARLES SIEGEL [NON-STAFF PHY W/O PRIVILEGES] - Office will call patient WEN CAMERON MD [Primary Care Provider] - 02/03/24 10:15 am
[2024-01-26 11:47] VITALS: BP 115/57; TEMP 98.5
[2024-01-26 14:03] VITALS: PULSE 99; RESP 20; O2SAT 99
[2024-01-26] MEDS ORDERED: TROUGH DRUG LEVELS IJ ONE (23:30)
== END 2024-01-26 13:55 | disposition home or self-care (01) ==
LOC: ED 13:53 → MED SURG 16:54
PROVIDERS: ADMIT Internal Medicine; ATTEND Internal Medicine
DX: A41.9 Sepsis, unspecified organism (principal); J18.9 Pneumonia, unspecified organism; J96.00 Acute respiratory failure, unspecified whether with hypoxia or hypercapnia; D50.9 Iron deficiency anemia, unspecified; F41.9 Anxiety disorder, unspecified; E03.9 Hypothyroidism, unspecified; F31.9 Bipolar disorder, unspecified; Z86.711 Personal history of pulmonary embolism; I50.9 Heart failure, unspecified; J44.1 Chronic obstructive pulmonary disease with (acute) exacerbation; Z79.01 Long term (current) use of anticoagulants; Z79.899 Other long term (current) drug therapy; I25.10 Atherosclerotic heart disease of native coronary artery without angina pectoris; E78.5 Hyperlipidemia, unspecified; R00.0 Tachycardia, unspecified; D72.829 Elevated white blood cell count, unspecified; F17.200 Nicotine dependence, unspecified, uncomplicated; Z99.81 Dependence on supplemental oxygen
CPT/HCPCS: 0241U; 36415; 36430; 71045; 80053; 81001; 83605; 83880; 84145; 84484; 85014; 85018; 85025; 86850; 86900; 86901; 86922; 87040; 87070; 93005; 93041; 93268; 94640; 94762; 96360; 96365; 96374; 99285; G0378; P9016; J0456; J0692; J1940; J2919; A9270-GY; J3370

== ENCOUNTER 2024-01-28 18:11 | Emergency (ER) | payer MEDICARE, OTHER ==
[2024-01-28 18:34] VITALS: TEMP 98.2
--- NOTE | 2024-01-28 18:34 | ERPHSYRPT ---
- History of Present Illness Time Seen by Provider: 01/28/24 18:32 Exam Limitations: no limitations Physician History: Pt had onset of increased SObreath today and came by ambulance and was just discharged from this hospital 2 days ago with AB and diagnosis of pneumonia. O2 saT IS 97 ON HER 3 l nc WHICH SHE IS ALWAYS ON. Chest with few wheezes. SHe had duoneb and solumedrol in route already. Ht reg without M. Abd soft nontender without peritoneal signs or masses. Discussed with pt and available family risks and benefits of testing/Tx including CBC, CMP, EKG, Trop, BNP, UA, CT PE protocol, swabs for Covid, RSV, Flu and Strep, Antibiotic and they wish to proceed so these are ordered. Results discussed with pt and available family. Spouse / family was present in ER to serve as independent source to confirm/collaborate the History. Timing/Duration: day(s) Severity of Dyspnea-Max: moderate Severity of Dyspnea-Current: moderate Possible Cause: frequent episodes, chronic episodes Allergies/Adverse Reactions: morphine Allergy (Severe, Verified 01/24/24 14:11) Fainting oxycodone Allergy (Verified 01/24/24 14:11) Shortness of Breath Penicillins Allergy (Verified 01/24/24 14:11) oxymorphone Adverse Reaction (Severe, Verified 01/24/24 14:11) Fainting Coconut Adverse Reaction (Intermediate, Verified 01/24/24 14:11) Headache bupropion HCl [From Wellbutrin] Adverse Reaction (Mild, Verified 01/24/24 14:11) Hives Home Medications: Albuterol/Ipratropium Mdi [Combivent Inhaler] 1 puff IH QID 12/29/12 [History] Famotidine 20 mg [Pepcid 20 MG] 20 mg PO BID 12/29/12 [History] Fluticasone/Salmeterol Disc [Advair/Wixella 250-50 Diskus 14 Dose] 1 puff IH BID 12/29/12 [History] Sertraline HCl 100 mg [Zoloft 100 MG] 200 mg PO DAILY 12/17/13 [History] Isosorbide Mononitrate 30 mg [Imdur 30 MG] 30 mg PO DAILY 11/05/14 [History] Tizanidine HCl 4 mg [Zanaflex 4 MG] 4 mg PO TID 01/16/15 [History] Quetiapine Fumarate [Seroquel] 300 mg PO HS 10/17/15 [History] Nitroglycerin 0.4 mg Tablet [Nitrostat 0.4 MG Tablet] 0.4 mg SL UD PRN 11/15/15 [History] Theophylline Anhydrous [Theophylline ER] 300 mg PO DAILY 12/23/20 [History] Fluticasone Propionate [Flonase NASAL] 1 spray NS BID 03/15/21 [History] Omeprazole 40 mg PO DAILY 10/22/21 [History] Albuterol Sulfate Mdi [ALBUTEROL/Proair Hfa MDI] 2 puff IH QID 03/10/23 [History] Clonazepam [Klonopin] 2 mg PO BID 03/10/23 [History] Gabapentin 1,200 mg PO BREAKFAST 03/11/23 [History] Rivaroxaban [Xarelto] 20 mg PO DAILY 01/24/24 [History] Hx Tetanus, Diphtheria Vaccination/Date Given: No Hx Influenza Vaccination/Date Given: No Hx Pneumococcal Vaccination/Date Given: No Travel Risk - Emerging Infectious Disease Are you exhibiting symptoms associated with any current EIDs: Yes Symptoms: Shortness of Breath - Review of Systems Constitutional: No Fever, No Chills Eyes: No Symptoms Ears, Nose, & Throat: No Symptoms Respiratory: Cough Cardiac: No Chest Pain, No Edema, No Syncope Abdominal/Gastrointestinal: No Abdominal Pain, No Nausea, No Vomiting, No Diarrhea Genitourinary Symptoms: No Dysuria Musculoskeletal: No Back Pain, No Neck Pain Skin: No Rash Neurological: No Dizziness, No Focal Weakness, No Sensory Changes Psychological: No Symptoms Endocrine: No Symptoms Hematologic/Lymphatic: No Symptoms Immunological/Allergic: No Symptoms All Other Systems: Reviewed and Negative - Past Medical History Pertinent Past Medical History: Yes Neurological History: Migraines ENT History: No Pertinent History Cardiac History: Congestive Heart Failure, Coronary Artery Disease, High Cholesterol, Other Respiratory History: Asthma, Bronchitis, COPD, Pneumonia, Pulmonary Embolism Endocrine Medical History: Hypothyroidism Musculoskeletal History: Arthritis, Osteoporosis GI Medical History: GERD, Hernia, Polyps History: No Pertinent History Psycho-Social History: Anxiety, Bipolar, Depression, Other Female Reproductive Disorders: Fibroids Other Medical History: 2 LEAKY VALVES. BORDERLINE PERSONALITY DISORDER, PTSD, manic depressive. Anemia - Past Surgical History Past Surgical History: Yes Neuro Surgical History: No Pertinent History Cardiac: Cardiac Catheterization Respiratory: No Pertinent History Gastrointestinal: Other Genitourinary: No Pertinent History Musculoskeletal: Other Female Surgical History: Section Other Surgical History: ARM SURGERY-- left wrist laceration from a glass door, 2 c-sections, EGD with dilitation, colonoscopy, heart cath x 2 Significant Family History: no pertinent family hx - Social History Smoking Status: Current every day smoker How long have you smoked: 40 years Exposure to second hand smoke: Yes Alcohol Use: Socially Drug Use: none Patient Lives Alone: No - Social Determinants of Health Will the patient participate in the screening: Yes Do you worry about a steady place to live?: No In the past 12 months,have you had to go without utilities?: No Transportation Issues: No Has anyone in your support network made you feel unsafe?: No Have you or anyone in your house had to go without enough: No - Nursing Vital Signs Nursing Vital Signs: Initial Vital Signs Pulse Rate 93 H 01/28/24 18:17 Respiratory Rate 24 01/28/24 18:17 Blood Pressure 166/105 01/28/24 18:17 O2 Sat by Pulse Oximetry 96 01/28/24 18:17 Pain Scale Pain Intensity 0 - Physical Exam General Appearance: no apparent distress, alert Eye Exam: PERRL/EOMI Ears, Nose, Throat Exam: pharyngeal erythema Neck Exam: normal inspection, supple Respiratory Exam: rhonchi, wheezing Cardiovascular/Chest Exam: normal heart sounds, regular rate/rhythm Abdominal/Gastrointestinal Exam: soft, No tenderness, No distention, No mass Extremity Exam: non-tender, normal range of motion, normal inspection, no calf tenderness, no pedal edema Peripheral Pulses Exam: carotid (R): 2+, carotid (L): 2+, femoral (R): 2+, femoral (L): 2+, dorsalis-pedis (R): 2+, dorsalis-pedis (L): 2+ Neurologic Exam: alert, oriented x 3, cooperative, weeder II-XII nml as tested, nml cerebellar function, nml station & gait, sensation nml, No motor deficits Skin Exam: normal color, warm, No dry SpO2 Interpretation: borderline oxygenation SpO2: 97 O2 Delivery: Nasal Cannula - Course Nursing assessment & vital signs reviewed: Yes EKG Interpreted by Me: Sinus Rhythm, Right Cecil Deviation, NORMAL INTERVALS, NORMAL QRS, Non-specific ST Changes - CT Exams Chest CT Interpretation: Tele-radiologist Report, No PE, Other (stable COPD large HH intrathoracic per rad reading) Ordered Tests: Active Orders 24 hr Category Date Time Status Log Chain Feeder STAT Care 01/28/24 18:45 Active EKG-ER Only STAT Care 01/28/24 18:44 Active IV Insertion STAT Care 01/28/24 18:44 Active Oxygen-ED Only Nasal Cannula 3 lpm Care 01/28/24 18:50 Active Pulse Oximetry (ED) STAT Care 01/28/24 18:44 Active CHEST WITH CONTRAST [CT] Stat Exams 01/28/24 18:46 Taken CBC W DIFF Stat Lab 01/28/24 19:00 Completed CMP Stat Lab 01/28/24 19:00 Completed Lactic Acid Stat Lab 01/28/24 19:00 Completed MAGNESIUM Stat Lab 01/28/24 19:00 Completed NT PRO BNPII Stat Lab 01/28/24 19:00 Completed TROPONIN Q4H Lab 01/28/24 19:00 Completed TROPONIN Q4H Lab 01/28/24 22:45 Ordered TROPONIN Q4H Lab 01/29/24 02:45 Ordered Medication Summary Discontinued Medications Generic Name Dose Route Start Last Admin Trade Name Freq PRN Reason Stop Dose Admin Azithromycin Confirm 01/28/24 21:42 Azithromycin 250 Mg Tablet Administered 01/28/24 21:43 Dose 500 mg .ROUTE .STK-MED ONE Butorphanol Tartrate 1 mg 01/28/24 21:34 01/28/24 21:44 Butorphanol Tartrate 2 Mg/Ml Vial IV 01/28/24 21:35 1 mg STAT ONE Administration Butorphanol Tartrate Confirm 01/28/24 21:38 Butorphanol Tartrate 2 Mg/Ml Vial Administered 01/28/24 21:39 Dose 2 mg .ROUTE .STK-MED ONE Clonazepam 2 mg 01/28/24 21:24 01/28/24 21:44 Clonazepam 2 Mg Tablet PO 01/28/24 21:25 2 mg STAT ONE Administration Clonazepam Confirm 01/28/24 21:27 Clonazepam 2 Mg Tablet Administered 01/28/24 21:28 Dose 2 mg .ROUTE .STK-MED ONE Doxycycline Hyclate 100 mg 01/28/24 22:10 01/28/24 22:12 Doxycycline Hyclate 100 Mg Tablet PO 01/28/24 22:11 100 mg STAT ONE Administration Lab/Rad Data: Laboratory Result Diagrams 01/28/24 19:00 01/28/24 19:00 Laboratory Results 01/28/24 01/28/24 01/28/24 Range/Units 19:05 19:05 19:00 WBC (3.98-10.04) x10^3/uL RBC (3.93-5.22) x10^6/uL Hgb (11.2-15.7) g/dL Hct (34.1-44.9) % MCV (79.4-94.8) fL MCH (25.6-32.2) pg MCHC (32.2-35.5) g/dL RDW (11.7-14.4) % Plt Count (182-369) x10^3/uL MPV (9.4-12.3) fL Gran % (34.0-71.1) % Immature Gran % (Auto) (0.001-0.429) % Nucleat RBC Rel Count (0.00-0.2) % Eos # (Auto) (0.04-0.36) x10^3/uL Immature Gran # (Auto) (0.001-0.031) x10^3u/L Absolute Lymphs (auto) (1.18-3.74) x10^3/uL Absolute Monos (auto) (0.24-0.86) x10^3/uL Absolute Nucleated RBC (0.00-0.012) x10^3u/L Lymphocytes % (19.3-51.7) % Monocytes % (4.7-12.5) % Eosinophils % (0.7-5.8) % Basophils % (0.1-1.2) % Absolute Granulocytes (1.56-6.13) x10^3/uL Basophils # (0.01-0.08) x10^3/uL Sodium (135-145) mmol/L Potassium (3.5-5.1) mmol/L Chloride (98-107) mmol/L Carbon Dioxide (22-30) mmol/L Anion Gap (5-15) MEQ/L BUN (7-17) mg/dL Creatinine (0.52-1.04) mg/dL Estimated GFR ML/MIN Glucose (74-106) mg/dL Lactic Acid (0.4-2.0) Calcium (8.4-10.2) mg/dL Magnesium (1.6-2.3) mg/dL Total Bilirubin (0.2-1.3) mg/dL AST (14-36) U/L ALT (0-35) U/L Alkaline Phosphatase (38-126) U/L Troponin I < 0.012 (0.000-0.033) ng/mL NT-Pro-B Natriuret Pep 502 (<300) pg/mL Serum Total Protein (6.3-8.2) g/dL Albumin (3.5-5.0) g/dL Influenza Type A Ag NEGATIVE (NEGATIVE) Influenza Type B Ag NEGATIVE (NEGATIVE) RSV (PCR) NEGATIVE (NEGATIVE) SARS-CoV-2 (PCR) NEGATIVE (NEGATIVE) Group A Strep Antibody NOT DETECTED (NEGATIVE) 01/28/24 01/28/24 01/28/24 Range/Units 19:00 19:00 19:00 WBC 10.6 H (3.98-10.04) x10^3/uL RBC 4.82 (3.93-5.22) x10^6/uL Hgb 11.5 (11.2-15.7) g/dL Hct 39.1 (34.1-44.9) % MCV 81.1 (79.4-94.8) fL MCH 23.9 L (25.6-32.2) pg MCHC 29.4 L (32.2-35.5) g/dL RDW 19.8 H (11.7-14.4) % Plt Count 425 H (182-369) x10^3/uL MPV 10.0 (9.4-12.3) fL Gran % 84.9 H (34.0-71.1) % Immature Gran % (Auto) 0.3 (0.001-0.429) % Nucleat RBC Rel Count 0.0 (0.00-0.2) % Eos # (Auto) 0.11 (0.04-0.36) x10^3/uL Immature Gran # (Auto) 0.03 (0.001-0.031) x10^3u/L Absolute Lymphs (auto) 0.93 L (1.18-3.74) x10^3/uL Absolute Monos (auto) 0.47 (0.24-0.86) x10^3/uL Absolute Nucleated RBC 0.00 (0.00-0.012) x10^3u/L Lymphocytes % 8.8 L (19.3-51.7) % Monocytes % 4.5 L (4.7-12.5) % Eosinophils % 1.0 (0.7-5.8) % Basophils % 0.5 (0.1-1.2) % Absolute Granulocytes 8.96 H (1.56-6.13) x10^3/uL Basophils # 0.05 (0.01-0.08) x10^3/uL Sodium 137 (135-145) mmol/L Potassium 3.4 L (3.5-5.1) mmol/L Chloride 102 (98-107) mmol/L Carbon Dioxide 26 (22-30) mmol/L Anion Gap 13.0 (5-15) MEQ/L BUN 9 (7-17) mg/dL Creatinine 0.65 (0.52-1.04) mg/dL Estimated GFR 97.0 ML/MIN Glucose 114 H (74-106) mg/dL Lactic Acid 1.3 (0.4-2.0) Calcium 9.0 (8.4-10.2) mg/dL Magnesium 2.0 (1.6-2.3) mg/dL Total Bilirubin 0.60 (0.2-1.3) mg/dL AST 25 (14-36) U/L ALT 21 (0-35) U/L Alkaline Phosphatase 107 (38-126) U/L Troponin I (0.000-0.033) ng/mL NT-Pro-B Natriuret Pep (<300) pg/mL Serum Total Protein 7.6 (6.3-8.2) g/dL Albumin 4.2 (3.5-5.0) g/dL Influenza Type A Ag (NEGATIVE) Influenza Type B Ag (NEGATIVE) RSV (PCR) (NEGATIVE) SARS-CoV-2 (PCR) (NEGATIVE) Group A Strep Antibody (NEGATIVE) - Progress Progress: improved, re-examined Air Movement: good Progress Note: 01/28/24 21:35 discussed limitations of testing performed this evening , the mild elevation of BNP without clinical evidence for significant CHF, ( no fluid on CT, No rales, No edema, No orthopnea), and that additional cardiac, pulmonary, vascular, infectious , or other potentially serious conditions could still be evolving undetected and the pt and family are comfortable and choose outpt f/u on AB, and steroids, rather than further w/u in ER or obs in hospital at this time and they have the capacity to make this choice. 01/28/24 22:16 Pt has had good relief from treatment in ER. Blood Culture(s) Obtained: Yes Antibiotics given: Yes Counseled pt/family regarding: lab results, diagnosis, need for follow-up, rad results Medical Desision Making - Independent Historian Additional History obtained from: Family - Discussion of managment Reviewed:: Test results, Need for additional workup Agreed on:: Treatment plan, need for follow-up - Diagnostic Testing Diagnostic test were ordered, analyzed, and reviewed by me: Yes Radiological Interpretation: Interpreted by me, Reviewed by me, Teleradiologist Report - Risk of complications The pt has a mod risk of morbidity or mortality based on: Need for prescription drug management The pt has a high risk of morbidity or mortality based on: Decision regarding hospitilization or escalation of hosp level of care - Departure Departure Disposition: Home Clinical Impression: stable COPD exacerbation/ pneumonia Condition: Good Critical Care Time: No Referrals: WEN CAMERON MD [Primary Care Provider] - Follow up/PCP as directed Instructions: Shortness of Breath (Dyspnea) (DC), Exacerbation of COPD (DC) Additional Instructions: we are adding an additional antibiotic to that already prescribed. we are also giving more steroids - to resume at the higher dose again.. followup with your this week early for a recheck - this is important because additional conditions not detected may still be developing and you need close followup for your heart and lungs. return meantime if not improving, vomiting, more short of breath, fever, dizziness or any other concerns. Also followup with your DrTorin for your elevated blood pressure. Prescriptions: Methylprednisolone Packet [Medrol Dosepack] 4 mg PO UD #30 packet Doxycycline Hyclate 100 mg [Vibramycin 100 MG] 100 mg PO BID #20 tab
[2024-01-28 19:09] LABS: Absolute Neutrophil Ct (ANC) 8.96 x10^3/uL (1.56-6.13); BASOPHIL % 0.5 % (0.1-1.2); Basophil (Absolute #) 0.05 x10^3/uL (0.01-0.08); Eosinophil (Absolute #) 0.11 x10^3/uL (0.04-0.36); Hematocrit 39.1 % (34.1-44.9); Hemoglobin 11.5 g/dL (11.2-15.7); IMMATURE GRAN # 0.03 x10^3u/L (0.001-0.031); IMMATURE GRAN % 0.3 % (0.001-0.429); Lymphocyte (Absolute #) 0.93 x10^3/uL (1.18-3.74); Lymphocytes % 8.8 % (19.3-51.7); Mean Cell Volume 81.1 fL (79.4-94.8); Mean Corpuscular Hemoglobin 23.9 pg (25.6-32.2); Mean Corpuscular Hgb Concent. 29.4 g/dL (32.2-35.5); Monocyte (Absolute #) 0.47 x10^3/uL (0.24-0.86); Monocytes % 4.5 % (4.7-12.5); Neutrophil % 84.9 % (34.0-71.1); Platelet Count 425 x10^3/uL (182-369); Red Blood Count 4.82 x10^6/uL (3.93-5.22); Red Cell Distribution Width 19.8 % (11.7-14.4); White Blood Count 10.6 x10^3/uL (3.98-10.04)
[2024-01-28 19:25] LABS: ALBUMIN 4.2 g/dL (3.5-5.0); BILIRUBIN,TOTAL 0.6 mg/dL (0.2-1.3); Creatinine 1 0.65 mg/dL (0.52-1.04); Potassium 3.4 mmol/L (3.5-5.1); Total Protein 7.6 g/dL (6.3-8.2)
[2024-01-28 19:37] LABS: NT PRO BNPII 502 pg/mL (<300); TROPONIN < 0.012 ng/mL (0.000-0.033)
[2024-01-28 19:49] LABS: INFLUENZA A NEGATIVE (NEGATIVE); INFLUENZA B NEGATIVE (NEGATIVE); RESPIRATORY SYNCTIAL VIRUS NEGATIVE (NEGATIVE); SARS-CoV-2 Xpert Express NEGATIVE (NEGATIVE)
[2024-01-28] MEDS ORDERED: KLONOPIN ONE ×2 (21:27→22:24)
[2024-01-28] MEDS ORDERED: STADOL 2 MG ONE (21:38)
[2024-01-28] MEDS ORDERED: Zithromax 250 MG TABLET ONE (21:42)
[2024-01-28] MEDS: KLONOPIN PO ONE (21:44)
[2024-01-28] MEDS: STADOL 2 MG IV ONE (21:44)
[2024-01-28] MEDS: Vibramycin 100 MG PO ONE (22:12)
[2024-01-28] MEDS ORDERED: Vibramycin 100 MG ONE (22:12)
[2024-01-28] MEDS: KLONOPIN PO SCH ×2 (22:36)
[2024-01-28 23:00] VITALS: BP 151/71; PULSE 88; RESP 18; O2SAT 99
--- NOTE | 2024-01-29 08:53 | XRAY ---
Indication: Short of breath. Recent hospitalization. Multiple contiguous axial images obtained through the chest using 100 cc Isovue 370 contrast and PE protocol. Comparison: June 23, 2023 Poor opacification pulmonary arteries and mild diffuse respiration artifact limits evaluation for pulmonary bones. No obvious central pulmonary embolus. Heart not enlarged. Aorta is normal in course and caliber with mild arch calcifications. A few tiny mediastinal/right suprahilar calcified nodes. No pathologic mediastinal/hilar lymphadenopathy. Stable moderate size hiatal hernia with partial intrathoracic stomach. Lungs again demonstrates moderate diffuse pulmonary emphysema. No suspicious pulmonary mass/nodule, infiltrate, or effusion. Bony thorax intact. Limited upper abdomen including adrenal glands unremarkable. Impression: 1. Pulmonary embolus evaluation limited by suboptimal contrast opacification and respiration artifact. No obvious central pulmonary embolus. 2. Chronic findings including pulmonary emphysema, arteriosclerotic disease, hiatal hernia with intrathoracic stomach, and old granulomatous disease.
== END 2024-01-28 23:10 | disposition home or self-care (01) ==
LOC: ED 18:11
DX: J44.1 Chronic obstructive pulmonary disease with (acute) exacerbation (principal); J18.9 Pneumonia, unspecified organism; R06.02 Shortness of breath; E78.5 Hyperlipidemia, unspecified; Z79.01 Long term (current) use of anticoagulants; Z79.899 Other long term (current) drug therapy; Z72.0 Tobacco use
CPT/HCPCS: 0241U; 36415; 71260; 80053; 83605; 83735; 83880; 84484; 85025; 87651; 93005; 93041; 94760; 96374; 99285; 99284; J0595; A9270-GY

== ENCOUNTER 2024-02-14 00:56 | Observation (INO) | payer MEDICARE, OTHER ==
[2024-02-14 01:50] LABS: Lactic Acid 1.2 (0.4-2.0); VBG BASE EXCESS 4.5 (-2.0-2.0); VBG HCO3- 29.2 meq/L (22-28); VBG HEMOGLOBIN 9.7; VBG O2 SATURATION 95.5 (95-100); VBG POTASSIUM 3.9 (3.5-5.1); VBG pH 7.44 (7.32-7.42)
[2024-02-14 01:51] LABS: Absolute Neutrophil Ct (ANC) 3.51 x10^3/uL (1.56-6.13); BASOPHIL % 1.1 % (0.1-1.2); Basophil (Absolute #) 0.05 x10^3/uL (0.01-0.08); Eosinophil % 1.5 % (0.7-5.8); Eosinophil (Absolute #) 0.07 x10^3/uL (0.04-0.36); Hematocrit 30.4 % (34.1-44.9); Hemoglobin 9.2 g/dL (11.2-15.7); IMMATURE GRAN # 0.01 x10^3u/L (0.001-0.031); IMMATURE GRAN % 0.2 % (0.001-0.429); Lymphocyte (Absolute #) 0.79 x10^3/uL (1.18-3.74); Lymphocytes % 16.6 % (19.3-51.7); Mean Cell Volume 78.1 fL (79.4-94.8); Mean Corpuscular Hemoglobin 23.7 pg (25.6-32.2); Mean Corpuscular Hgb Concent. 30.3 g/dL (32.2-35.5); Mean Platelet Volume 9.7 fL (9.4-12.3); Monocyte (Absolute #) 0.33 x10^3/uL (0.24-0.86); Monocytes % 6.9 % (4.7-12.5); Neutrophil % 73.7 % (34.0-71.1); Platelet Count 334 x10^3/uL (182-369); Red Blood Count 3.89 x10^6/uL (3.93-5.22); Red Cell Distribution Width 20.7 % (11.7-14.4); White Blood Count 4.8 x10^3/uL (3.98-10.04)
[2024-02-14 02:11] LABS: ALBUMIN 3.6 g/dL (3.5-5.0); ANION GAP 8.9 MEQ/L (5-15); BILIRUBIN,TOTAL 0.3 mg/dL (0.2-1.3); Calcium 9.2 mg/dL (8.4-10.2); Creatinine 1 0.69 mg/dL (0.52-1.04); EST GLOMERULAR FILTRATION RATE 95.7 ML/MIN; Potassium 3.7 mmol/L (3.5-5.1); Total Protein 6.6 g/dL (6.3-8.2)
[2024-02-14 02:29] LABS: INFLUENZA A NEGATIVE (NEGATIVE); INFLUENZA B NEGATIVE (NEGATIVE); RESPIRATORY SYNCTIAL VIRUS NEGATIVE (NEGATIVE); SARS-CoV-2 Xpert Express NEGATIVE (NEGATIVE)
[2024-02-14] MEDS ORDERED: PROVENTIL 2.5 MG/3 ML NEB IH ONE (03:01)
[2024-02-14] MEDS ORDERED: DUONEB 0.5-3 MG/3 ml Neb IH ONE (03:01)
[2024-02-14] MEDS: PROVENTIL 2.5 MG/3 ML NEB IH ONE (03:06)
[2024-02-14] MEDS: DUONEB 0.5-3 MG/3 ml Neb IH ONE (03:06)
--- NOTE | 2024-02-14 03:07 | ERPHSYRPT ---
- History of Present Illness Source: patient, EMS Exam Limitations: no limitations Patient Subjective Stated Complaint: SOB all day with coughing. Feeling anxious. Breathing become worse tonight. Triage Nursing Assessment: EMS brought patient here for feeling SOB all day with coughing. Feeling anxious. Breathing become worse tonight patient stated. EMS started IV in the RH 20g. Gave Solumedrol 125mg and Duoneb treatment. BS 120 Physician History: Patient is here with the difficulty breathing. She said she is having some wheezing and coughing. She does not have any fever or chills. Cough is nonproductive. She has COPD. She called EMS. They saw her and gave her nebulizers and some Solu-Medrol. She improved slightly. She is not having any pain at this time. She is in mild respiratory distress and is having some mild difficulty moving air. Allergies/Adverse Reactions: morphine Allergy (Severe, Verified 02/14/24 01:19) Fainting oxycodone Allergy (Verified 02/14/24 01:19) Shortness of Breath Penicillins Allergy (Verified 02/14/24 01:19) oxymorphone Adverse Reaction (Severe, Verified 02/14/24 01:19) Fainting Coconut Adverse Reaction (Intermediate, Verified 02/14/24 01:19) Headache bupropion HCl [From Wellbutrin] Adverse Reaction (Mild, Verified 02/14/24 01:19) Hives Home Medications: Albuterol/Ipratropium Mdi [Combivent Inhaler] 1 puff IH QID 12/29/12 [H istory] Famotidine 20 mg [Pepcid 20 MG] 20 mg PO BID 12/29/12 [History] Fluticasone/Salmeterol Disc [Advair/Wixella 250-50 Diskus 14 Dose] 1 puff IH BID 12/29/12 [History] Sertraline HCl 100 mg [Zoloft 100 MG] 200 mg PO DAILY 12/17/13 [History] Isosorbide Mononitrate 30 mg [Imdur 30 MG] 30 mg PO DAILY 11/05/14 [History] Tizanidine HCl 4 mg [Zanaflex 4 MG] 4 mg PO TID 01/16/15 [History] Quetiapine Fumarate [Seroquel] 300 mg PO HS 10/17/15 [History] Nitroglycerin 0.4 mg Tablet [Nitrostat 0.4 MG Tablet] 0.4 mg SL UD PRN 11/15/15 [History] Theophylline Anhydrous [Theophylline ER] 300 mg PO DAILY 12/23/20 [History] Fluticasone Propionate [Flonase NASAL] 1 spray NS BID 03/15/21 [History] Omeprazole 40 mg PO DAILY 10/22/21 [History] Albuterol Sulfate Mdi [ALBUTEROL/Proair Hfa MDI] 2 puff IH QID 03/10/23 [History] Clonazepam [Klonopin] 2 mg PO BID 03/10/23 [History] Gabapentin 1,200 mg PO BREAKFAST 03/11/23 [History] Rivaroxaban [Xarelto] 20 mg PO DAILY 01/24/24 [History] Hx Tetanus, Diphtheria Vaccination/Date Given: No Hx Influenza Vaccination/Date Given: No Hx Pneumococcal Vaccination/Date Given: No Immunizations Up to Date: No Travel Risk - International Travel Have you traveled outside of the country in past 3 weeks: No - Emerging Infectious Disease Are you exhibiting symptoms associated with any current EIDs: Yes Symptoms: Shortness of Breath - Review of Systems Constitutional: No Symptoms Eyes: No Symptoms Respiratory: Dyspnea on Exertion (SCOTT), Wheezing Cardiac: No Symptoms All Other Systems: Reviewed and Negative - Past Medical History Pertinent Past Medical History: Yes Neurological History: Migraines ENT History: No Pertinent History Cardiac History: Congestive Heart Failure, Coronary Artery Disease, High Cholesterol, Other Respiratory History: Asthma, Bronchitis, COPD, Pneumonia, Pulmonary Embolism Endocrine Medical History: Hypothyroidism Musculoskeletal History: Arthritis, Osteoporosis GI Medical History: GERD, Hernia, Polyps History: No Pertinent History Psycho-Social History: Anxiety, Bipolar, Depression, Other Female Reproductive Disorders: Fibroids Other Medical History: 2 LEAKY VALVES. BORDERLINE PERSONALITY DISORDER, PTSD, manic depressive. Anemia - Past Surgical History Past Surgical History: Yes Neuro Surgical History: No Pertinent History Cardiac: Cardiac Catheterization Respiratory: No Pertinent History Gastrointestinal: Other Genitourinary: No Pertinent History Musculoskeletal: Other Female Surgical History: Section Other Surgical History: ARM SURGERY-- left wrist laceration from a glass door, 2 c-sections, EGD with dilitation, colonoscopy, heart cath x 2 Significant Family History: no pertinent family hx - Social History Smoking Status: Current every day smoker How long have you smoked: 40 years Exposure to second hand smoke: Yes Alcohol Use: Socially Drug Use: marijuana Patient Lives Alone: No - Social Determinants of Health Will the patient participate in the screening: Yes Do you worry about a steady place to live?: No Do you have any problems with any of the following?: No known problems In the past 12 months,have you had to go without utilities?: No Transportation Issues: No Has anyone in your support network made you feel unsafe?: No Have you or anyone in your house had to go without enough: No - Nursing Vital Signs Nursing Vital Signs: Initial Vital Signs Temperature 98.2 F 02/14/24 00:59 Pulse Rate 94 H 02/14/24 00:59 Respiratory Rate 20 02/14/24 00:59 Blood Pressure 134/80 02/14/24 00:59 O2 Sat by Pulse Oximetry 98 02/14/24 00:59 Pain Scale Pain Intensity 5 - Physical Exam General Appearance: mild distress (Improved with nebulizers) Eye Exam: PERRL/EOMI Ears, Nose, Throat Exam: hearing grossly normal Neck Exam: normal inspection Respiratory Exam: diminished breath sounds, prolonged expirations, wheezing Cardiovascular/Chest Exam: normal heart sounds, regular rate/rhythm Abdominal/Gastrointestinal Exam: soft Rectal Exam: deferred Extremity Exam: non-tender, normal range of motion, normal inspection Neurologic Exam: alert, oriented x 3 Skin Exam: normal color, warm SpO2 Interpretation: normal SpO2: 98 - Course Nursing assessment & vital signs reviewed: Yes Ordered Tests: Active Orders 24 hr Category Date Time Status EKG-ER Only STAT Care 02/14/24 01:08 Active CHEST 1 VIEW (PORTABLE) Stat Exams 02/14/24 01:08 Taken BLOOD CULTURE Stat Lab 02/14/24 01:40 Received CBC W DIFF Stat Lab 02/14/24 01:30 Completed CMP Stat Lab 02/14/24 01:30 Completed Lactic Acid Stat Lab 02/14/24 01:45 Completed PROCALCITONIN Stat Lab 02/14/24 01:30 Completed VENOUS BLOOD GAS Stat Lab 02/14/24 01:45 Completed Respiratory Therapy Assessment DAILY RT 02/14/24 03:07 Active Medication Summary Discontinued Medications Generic Name Dose Route Start Last Admin Trade Name Yordan PRN Reason Stop Dose Admin Albuterol Sulfate 2.5 mg 02/14/24 02:56 02/14/24 03:06 Albuterol Sulfate 2.5 Mg/3 Ml Neb IH 02/14/24 02:57 2.5 mg STAT ONE Administration Albuterol Sulfate Confirm 02/14/24 03:01 Albuterol Sulfate 2.5 Mg/3 Ml Neb Administered 02/14/24 03:02 Dose 2.5 mg IH .STK-MED ONE Albuterol/Ipratropium 3 ml 02/14/24 02:56 02/14/24 03:06 Ipratropium/Albuterol Sulfate 3 Ml Ampul.Neb IH 02/14/24 02:57 3 ml STAT ONE Administration Albuterol/Ipratropium Confirm 02/14/24 03:01 Ipratropium/Albuterol Sulfate 3 Ml Ampul.Neb Administered 02/14/24 03:02 Dose 3 ml IH .STK-MED ONE Lab/Rad Data: Laboratory Result Diagrams 02/14/24 01:30 02/14/24 01:30 Laboratory Results 02/14/24 02/14/24 02/14/24 Range/Units 01:45 01:30 01:30 WBC (3.98-10.04) x10^3/uL RBC (3.93-5.22) x10^6/uL Hgb (11.2-15.7) g/dL Hct (34.1-44.9) % MCV (79.4-94.8) fL MCH (25.6-32.2) pg MCHC (32.2-35.5) g/dL RDW (11.7-14.4) % Plt Count (182-369) x10^3/uL MPV (9.4-12.3) fL Gran % (34.0-71.1) % Immature Gran % (Auto) (0.001-0.429) % Nucleat RBC Rel Count (0.00-0.2) % Eos # (Auto) (0.04-0.36) x10^3/uL Immature Gran # (Auto) (0.001-0.031) x10^3u/L Absolute Lymphs (auto) (1.18-3.74) x10^3/uL Absolute Monos (auto) (0.24-0.86) x10^3/uL Absolute Nucleated RBC (0.00-0.012) x10^3u/L Lymphocytes % (19.3-51.7) % Monocytes % (4.7-12.5) % Eosinophils % (0.7-5.8) % Basophils % (0.1-1.2) % Absolute Granulocytes (1.56-6.13) x10^3/uL Basophils # (0.01-0.08) x10^3/uL pO2/FiO2 Ratio 21.0 % VBG pH 7.44 H (7.32-7.42) VBG pCO2 at Pat Temp 43 (42-55) mm/Hg VBG pO2 at Pat Temp 65 H (25-40) mm/Hg VBG HCO3 29.2 H* (22-28) meq/L VBG O2 Sat (Paulo) 95.5 (95-100) VBG Base Excess 4.5 H (-2.0-2.0) VBG Hemoglobin 9.7 VBG Carboxyhemoglobin 4.0 (0.0-6.9) % T HGB POC Potassium 3.9 (3.5-5.1) Sodium (135-145) mmol/L Potassium (3.5-5.1) mmol/L Chloride (98-107) mmol/L Carbon Dioxide (22-30) mmol/L Anion Gap (5-15) MEQ/L BUN (7-17) mg/dL Creatinine (0.52-1.04) mg/dL Estimated GFR ML/MIN Glucose (74-106) mg/dL Lactic Acid 1.2 (0.4-2.0) Calcium (8.4-10.2) mg/dL Total Bilirubin (0.2-1.3) mg/dL AST (14-36) U/L ALT (0-35) U/L Alkaline Phosphatase (38-126) U/L Serum Total Protein (6.3-8.2) g/dL Albumin (3.5-5.0) g/dL Procalcitonin 0.047 (0.030-0.080) ng/mL Influenza Type A Ag NEGATIVE (NEGATIVE) Influenza Type B Ag NEGATIVE (NEGATIVE) RSV (PCR) NEGATIVE (NEGATIVE) SARS-CoV-2 (PCR) NEGATIVE (NEGATIVE) 02/14/24 02/14/24 Range/Units 01:30 01:30 WBC 4.8 (3.98-10.04) x10^3/uL RBC 3.89 L (3.93-5.22) x10^6/uL Hgb 9.2 L (11.2-15.7) g/dL Hct 30.4 L (34.1-44.9) % MCV 78.1 L (79.4-94.8) fL MCH 23.7 L (25.6-32.2) pg MCHC 30.3 L (32.2-35.5) g/dL RDW 20.7 H (11.7-14.4) % Plt Count 334 (182-369) x10^3/uL MPV 9.7 (9.4-12.3) fL Gran % 73.7 H (34.0-71.1) % Immature Gran % (Auto) 0.2 (0.001-0.429) % Nucleat RBC Rel Count 0.0 (0.00-0.2) % Eos # (Auto) 0.07 (0.04-0.36) x10^3/uL Immature Gran # (Auto) 0.01 (0.001-0.031) x10^3u/L Absolute Lymphs (auto) 0.79 L (1.18-3.74) x10^3/uL Absolute Monos (auto) 0.33 (0.24-0.86) x10^3/uL Absolute Nucleated RBC 0.00 (0.00-0.012) x10^3u/L Lymphocytes % 16.6 L (19.3-51.7) % Monocytes % 6.9 (4.7-12.5) % Eosinophils % 1.5 (0.7-5.8) % Basophils % 1.1 (0.1-1.2) % Absolute Granulocytes 3.51 (1.56-6.13) x10^3/uL Basophils # 0.05 (0.01-0.08) x10^3/uL pO2/FiO2 Ratio % VBG pH (7.32-7.42) VBG pCO2 at Pat Temp (42-55) mm/Hg VBG pO2 at Pat Temp (25-40) mm/Hg VBG HCO3 (22-28) meq/L VBG O2 Sat (Paulo) (95-100) VBG Base Excess (-2.0-2.0) VBG Hemoglobin VBG Carboxyhemoglobin (0.0-6.9) % T HGB POC Potassium (3.5-5.1) Sodium 137 (135-145) mmol/L Potassium 3.7 (3.5-5.1) mmol/L Chloride 106 (98-107) mmol/L Carbon Dioxide 26 (22-30) mmol/L Anion Gap 8.9 (5-15) MEQ/L BUN 8 (7-17) mg/dL Creatinine 0.69 (0.52-1.04) mg/dL Estimated GFR 95.7 ML/MIN Glucose 114 H (74-106) mg/dL Lactic Acid (0.4-2.0) Calcium 9.2 (8.4-10.2) mg/dL Total Bilirubin 0.30 (0.2-1.3) mg/dL AST 25 (14-36) U/L ALT 15 (0-35) U/L Alkaline Phosphatase 91 (38-126) U/L Serum Total Protein 6.6 (6.3-8.2) g/dL Albumin 3.6 (3.5-5.0) g/dL Procalcitonin (0.030-0.080) ng/mL Influenza Type A Ag (NEGATIVE) Influenza Type B Ag (NEGATIVE) RSV (PCR) (NEGATIVE) SARS-CoV-2 (PCR) (NEGATIVE) X-ray was done as interpreted by me. There is no acute findings. - Progress Progress: improved Air Movement: poor Progress Note: Patient was stable throughout stay. She got nebulizers which helped a little bit. She said she is still feeling dyspneic. She was still wheezing and having some prolonged respirations and so far she is maintaining oxygen saturations on supplemental oxygen around 98%. She said she does feel short of breath whenever she mildly exerts herself. X-ray was done as interpreted by me. There is no acute findings. Her lab work all look good. I think she is basically just having a COPD exacerbation. I am going to call the hospitalist for admission. 02/14/24 03:06 Blood Culture(s) Obtained: No Antibiotics given: No Medical Desision Making - Social Determinants of Health Pt's dx & treatment plan are significantly limited by SDOH: limited education - Diagnostic Testing Diagnostic test were ordered, analyzed, and reviewed by me: Yes Radiological Interpretation: Interpreted by me - Risk of complications Minimal Risk: Minimal risk of morbidity - Departure Departure Disposition: Observation Clinical Impression: COPD (chronic obstructive pulmonary disease) Condition: Good Critical Care Time: No Referrals: WEN CAMERON MD [Primary Care Provider] - Follow up/PCP as directed Instructions: Chronic Obstructive Pulmonary Disease
[2024-02-14] MEDS: TYLENOL 325 MG PO PRN (06:26)
--- NOTE | 2024-02-14 06:28 | PCM.HP ---
History of Present Illness - Chief Complaint Chief Complaint: shortness of breath Date: 02/14/24 History of Present Illness: is a 68 year old female with history of COPD on chronic 3 L oxygen, PE on Xarelto, hypothyroidism, CAD, here with dyspnea and wheezing. Patient noticed onset 2 days ago of progressive worsening dyspnea and wheezing, associated with pleuritic chest pain. Chest pain was not relieved by nitroglycerin, but was relieved after getting a breathing treatment with EMS today. She was not getting any initial relief with her home inhalers. She denies any fevers, sick contacts, myalgias. - Review of Systems All Other Systems: Reviewed and Negative Medications & Allergies Home Medications: Home Medication List Albuterol/Ipratropium Mdi [Combivent Inhaler] 1 puff IH QID 12/29/12 [History Confirmed 02/14/24] Famotidine 20 mg [Pepcid 20 MG] 20 mg PO BID 12/29/12 [History Confirmed 02/14/24] Fluticasone/Salmeterol Disc [Advair/Wixella 250-50 Diskus 14 Dose] 1 puff IH BID 12/29/12 [History Confirmed 02/14/24] Sertraline HCl 100 mg [Zoloft 100 MG] 200 mg PO DAILY 12/17/13 [History Confirmed 02/14/24] Isosorbide Mononitrate 30 mg [Imdur 30 MG] 30 mg PO DAILY 11/05/14 [History Confirmed 02/14/24] Tizanidine HCl 4 mg [Zanaflex 4 MG] 4 mg PO TID 01/16/15 [History Confirmed 02/14/24] Quetiapine Fumarate [Seroquel] 300 mg PO HS 10/17/15 [History Confirmed 02/14/24] Nitroglycerin 0.4 mg Tablet [Nitrostat 0.4 MG Tablet] 0.4 mg SL UD PRN 11/15/15 [History Confirmed 02/14/24] Theophylline Anhydrous [Theophylline ER] 300 mg PO DAILY 12/23/20 [History Confirmed 02/14/24] Fluticasone Propionate [Flonase NASAL] 1 spray NS BID 03/15/21 [History Confirmed 02/14/24] Levothyroxine Sodium 25 Mcg [Synthroid 25 Mcg] 25 mcg PO DAILY tablet 03/17/21 [Rx Confirmed 02/14/24] Omeprazole 40 mg PO DAILY 10/22/21 [History Confirmed 02/14/24] Albuterol Sulfate Mdi [ALBUTEROL/Proair Hfa MDI] 2 puff IH QID 03/10/23 [History Confirmed 02/14/24] Clonazepam [Klonopin] 2 mg PO BID 03/10/23 [History Confirmed 02/14/24] Gabapentin 1,200 mg PO BREAKFAST 03/11/23 [History Confirmed 02/14/24] Gabapentin [Neurontin ] 2,400 mg PO HS cap 03/12/23 [Rx Confirmed 02/14/24] Rivaroxaban [Xarelto] 20 mg PO DAILY 01/24/24 [History Confirmed 02/14/24] Doxycycline Hyclate 100 mg [Vibramycin 100 MG] 100 mg PO BID #20 tab 01/28/24 [Rx Confirmed 02/14/24] Allergies/Adverse Reactions: Allergies Allergy/AdvReac Type Severity Reaction Status Date / Time morphine Allergy Severe Fainting Verified 02/14/24 01:19 oxycodone Allergy Shortness Verified 02/14/24 01:19 of Breath Penicillins Allergy Verified 02/14/24 01:19 oxymorphone AdvReac Severe Fainting Verified 02/14/24 01:19 Coconut AdvReac Intermediate Headache Verified 02/14/24 01:19 bupropion HCl AdvReac Mild Hives Verified 02/14/24 01:19 [From Wellbutrin] - Past Medical History Past Medical History: Yes Neurological History: Migraines ENT History: No Pertinent History Cardiac History: Congestive Heart Failure, Coronary Artery Disease, High Cholesterol, Other Respiratory History: Asthma, Bronchitis, COPD, Pneumonia, Pulmonary Embolism Endocrine Medical History: Hypothyroidism Musculoskelatal History: Arthritis, Osteoporosis GI Medical History: GERD, Hernia, Polyps History: No Pertinent History Pyscho-Social History: Anxiety, Bipolar, Depression, Other Reproductive Disorders: Fibroids Comment: 2 LEAKY VALVES. BORDERLINE PERSONALITY DISORDER, PTSD, manic depressive. Anemia - Past Surgical History Past Surgical History: Yes Neuro Surgical History: No Pertinent History Cardiac History: Cardiac Catheterization Respiratory Surgery: No Pertinent History GI Surgical History: Other Genitourinary Surgical Hx: No Pertinent History Musculskeletal Surgical Hx: Other Female Surgical History: Section Other Surgical History: ARM SURGERY-- left wrist laceration from a glass door, 2 c-sections, EGD with dilitation, colonoscopy, heart cath x 2 Significant Family History: heart disease, diabetes - Social History Smoking Status: Current every day smoker How long have you smoked: 50 Exposure to second hand smoke: Yes Alcohol: None Drug Use: marijuana - Social Determinants of Health Will the patient participate in the screening: Yes Do you worry about a steady place to live?: No Do you have any problems with any of the following?: No known problems In the past 12 months,have you had to go without utilities?: No Have you or anyone in your house had to go without enough: No Transportation Issues: No Has anyone in your support network made you feel unsafe?: No Does the patient want assistance with any of the above?: No - Physical Exam Vital Signs: Vital Signs - 24 hr Temp Pulse Resp BP BP Pulse Ox 02/14/24 05:00 97.5 F 103 H 20 150/78 95 02/14/24 04:12 97.5 F 103 H 20 150/78 95 02/14/24 04:00 110 H 29 H 139/73 99 02/14/24 03:50 106 H 35 H 02/14/24 03:40 102 H 31 H 02/14/24 03:32 107 H 32 H 02/14/24 03:16 98 02/14/24 03:07 101 H 22 98 02/14/24 03:00 100 H 32 H 130/85 100 02/14/24 02:30 103 H 32 H 133/78 02/14/24 02:00 102 H 37 H 121/73 02/14/24 01:31 105 H 23 99/84 98 02/14/24 01:07 28 H 134/80 92 L 02/14/24 00:59 98.2 F 94 H 20 134/80 97 General Appearance: no apparent distress Neurologic Exam: alert, oriented x 3 Eye Exam: PERRL/EOMI, No scleral icterus Ears, Nose, Throat Exam: moist mucous membranes Neck Exam: supple, full range of motion Respiratory Exam: wheezing (Mild), other (On her home 3 L oxygen), No respiratory distress, No accessory muscle use Cardiovascular Exam: regular rate/rhythm, normal heart sounds, No edema Gastrointestinal/Abdomen Exam: No tenderness, No distention Extremity Exam: normal range of motion, No joint swelling Skin Exam: normal color, No rash Results - Labs Lab/Micro Results: Lab Results-Last 24 Hours 02/14/24 02/14/24 02/14/24 Range/Units 01:30 01:30 01:30 WBC 4.8 (3.98-10.04) x10^3/uL RBC 3.89 L (3.93-5.22) x10^6/uL Hgb 9.2 L (11.2-15.7) g/dL Hct 30.4 L (34.1-44.9) % MCV 78.1 L (79.4-94.8) fL MCH 23.7 L (25.6-32.2) pg MCHC 30.3 L (32.2-35.5) g/dL RDW 20.7 H (11.7-14.4) % Plt Count 334 (182-369) x10^3/uL MPV 9.7 (9.4-12.3) fL Gran % 73.7 H (34.0-71.1) % Immature Gran % (Auto) 0.2 (0.001-0.429) % Nucleat RBC Rel Count 0.0 (0.00-0.2) % Eos # (Auto) 0.07 (0.04-0.36) x10^3/uL Immature Gran # (Auto) 0.01 (0.001-0.031) x10^3u/L Absolute Lymphs (auto) 0.79 L (1.18-3.74) x10^3/uL Absolute Monos (auto) 0.33 (0.24-0.86) x10^3/uL Absolute Nucleated RBC 0.00 (0.00-0.012) x10^3u/L Lymphocytes % 16.6 L (19.3-51.7) % Monocytes % 6.9 (4.7-12.5) % Eosinophils % 1.5 (0.7-5.8) % Basophils % 1.1 (0.1-1.2) % Absolute Granulocytes 3.51 (1.56-6.13) x10^3/uL Basophils # 0.05 (0.01-0.08) x10^3/uL pO2/FiO2 Ratio % VBG pH (7.32-7.42) VBG pCO2 at Pat Temp (42-55) mm/Hg VBG pO2 at Pat Temp (25-40) mm/Hg VBG HCO3 (22-28) meq/L VBG O2 Sat (Paulo) (95-100) VBG Base Excess (-2.0-2.0) VBG Hemoglobin VBG Carboxyhemoglobin (0.0-6.9) % T HGB POC Potassium (3.5-5.1) Sodium 137 (135-145) mmol/L Potassium 3.7 (3.5-5.1) mmol/L Chloride 106 (98-107) mmol/L Carbon Dioxide 26 (22-30) mmol/L Anion Gap 8.9 (5-15) MEQ/L BUN 8 (7-17) mg/dL Creatinine 0.69 (0.52-1.04) mg/dL Estimated GFR 95.7 ML/MIN Glucose 114 H (74-106) mg/dL Lactic Acid (0.4-2.0) Calcium 9.2 (8.4-10.2) mg/dL Total Bilirubin 0.30 (0.2-1.3) mg/dL AST 25 (14-36) U/L ALT 15 (0-35) U/L Alkaline Phosphatase 91 (38-126) U/L Serum Total Protein 6.6 (6.3-8.2) g/dL Albumin 3.6 (3.5-5.0) g/dL Procalcitonin 0.047 (0.030-0.080) ng/mL Influenza Type A Ag (NEGATIVE) Influenza Type B Ag (NEGATIVE) RSV (PCR) (NEGATIVE) SARS-CoV-2 (PCR) (NEGATIVE) 02/14/24 02/14/24 Range/Units 01:30 01:45 WBC (3.98-10.04) x10^3/uL RBC (3.93-5.22) x10^6/uL Hgb (11.2-15.7) g/dL Hct (34.1-44.9) % MCV (79.4-94.8) fL MCH (25.6-32.2) pg MCHC (32.2-35.5) g/dL RDW (11.7-14.4) % Plt Count (182-369) x10^3/uL MPV (9.4-12.3) fL Gran % (34.0-71.1) % Immature Gran % (Auto) (0.001-0.429) % Nucleat RBC Rel Count (0.00-0.2) % Eos # (Auto) (0.04-0.36) x10^3/uL Immature Gran # (Auto) (0.001-0.031) x10^3u/L Absolute Lymphs (auto) (1.18-3.74) x10^3/uL Absolute Monos (auto) (0.24-0.86) x10^3/uL Absolute Nucleated RBC (0.00-0.012) x10^3u/L Lymphocytes % (19.3-51.7) % Monocytes % (4.7-12.5) % Eosinophils % (0.7-5.8) % Basophils % (0.1-1.2) % Absolute Granulocytes (1.56-6.13) x10^3/uL Basophils # (0.01-0.08) x10^3/uL pO2/FiO2 Ratio 21.0 % VBG pH 7.44 H (7.32-7.42) VBG pCO2 at Pat Temp 43 (42-55) mm/Hg VBG pO2 at Pat Temp 65 H (25-40) mm/Hg VBG HCO3 29.2 H* (22-28) meq/L VBG O2 Sat (Paulo) 95.5 (95-100) VBG Base Excess 4.5 H (-2.0-2.0) VBG Hemoglobin 9.7 VBG Carboxyhemoglobin 4.0 (0.0-6.9) % T HGB POC Potassium 3.9 (3.5-5.1) Sodium (135-145) mmol/L Potassium (3.5-5.1) mmol/L Chloride (98-107) mmol/L Carbon Dioxide (22-30) mmol/L Anion Gap (5-15) MEQ/L BUN (7-17) mg/dL Creatinine (0.52-1.04) mg/dL Estimated GFR ML/MIN Glucose (74-106) mg/dL Lactic Acid 1.2 (0.4-2.0) Calcium (8.4-10.2) mg/dL Total Bilirubin (0.2-1.3) mg/dL AST (14-36) U/L ALT (0-35) U/L Alkaline Phosphatase (38-126) U/L Serum Total Protein (6.3-8.2) g/dL Albumin (3.5-5.0) g/dL Procalcitonin (0.030-0.080) ng/mL Influenza Type A Ag NEGATIVE (NEGATIVE) Influenza Type B Ag NEGATIVE (NEGATIVE) RSV (PCR) NEGATIVE (NEGATIVE) SARS-CoV-2 (PCR) NEGATIVE (NEGATIVE) - Radiology Impressions Radiology Exams & Impressions: Radiology Procedures Category Date Time Status CHEST 1 VIEW (PORTABLE) Stat Exams 02/14/24 01:08 Taken Chest x-ray no infiltrates, effusions, or edema (images reviewed) - Other Procedures and Tests Respiratory Therapy 02/14/24 03:07 Respiratory Therapy Assessment DAILY 02/14/24 05:34 Oxygen Nasal Cannula 3 lpm Assessment/Plan (1) COPD with acute exacerbation Current Visit: No Status: Resolved Assessment & Plan: 68-year-old man with a history of COPD, chronic hypoxic respiratory failure, tobacco dependence, PE, hypothyroidism, and CAD, here with COPD exacerbation. ## COPD exacerbation no pneumonia on chest x-ray, and patient remains on her baseline 3 L oxygen by nasal cannula. However, she has more subjective dyspnea, and has wheezing on exam. She is moving air fairly well currently. Given Solu- Medrol by EMS. Continue prednisone 40 mg daily DuoNeb PRN Continue home theophylline ## Chronic hypoxic respiratory failure patient is on her baseline oxygen of 3 L. Continue oxygen, titrate to maintain SpO2 between 91 and 94% ## PE diagnosed earlier this year. Continue Xarelto ## Anemia patient has chronic microcytic anemia, currently better than her last admission. Follow CBC CODE STATUS: Full code Prophylaxis: Xarelto Diet: Regular Dispo: Place in observation, expect discharge back to home Code(s): J44.1 - CHRONIC OBSTRUCTIVE PULMONARY DISEASE W (ACUTE) EXACERBATION Telemedicine Encounter - Telemedicine Encounter Telemedicine Encounter: "The entirety of this encounter was performed via Telemedicine" This visit was performed using real-time audio and video connection between my location and thepatients locationwith the assistance of a surrogateat the patients location. Written or verbal consent was obtained from the patient/guardian to perform this visit usingsynchronoustelemedicine technology. Any patient questions regarding the telemedicine interaction were answered.
[2024-02-14] MEDS: DUONEB 0.5-3 MG/3 ml Neb IH SCH (06:53)
[2024-02-14] MEDS: Advair Hfa 115/21 Common canister IH SCH (06:55)
[2024-02-14] MEDS ORDERED: NON-FORMULARY ITEM (Gabapentin [Gabapentin] 600 MG Tablet) PO SCH (08:00)
[2024-02-14] MEDS: Neurontin PO SCH ×2 (08:08→21:10)
--- NOTE | 2024-02-14 08:50 | XRAY ---
Indication: Cough. Comparison: January 24, 2024 Portable chest inflated and is now clear. Heart not enlarged again with hiatal hernia. Bony thorax intact again with osteopenia. Impression: Nonacute chest with chronic features.
[2024-02-14] MEDS ORDERED: NON-FORMULARY ITEM (Theophylline Anhydrous [Theophylline Er] 300 MG Tab.Er.12h) PO SCH (10:00)
[2024-02-14] MEDS ORDERED: NON-FORMULARY ITEM (Rivaroxaban [Xarelto] 20 MG Tablet) PO SCH (10:00)
[2024-02-14] MEDS ORDERED: NON-FORMULARY ITEM (Omeprazole [Omeprazole] 40 MG Capsule.Dr) PO SCH (10:00)
[2024-02-14] MEDS ORDERED: NON-FORMULARY ITEM (Sertraline Hcl 100 Mg [Zoloft 100 Mg] 100 MG Tab) PO SCH (10:00)
[2024-02-14] MEDS ORDERED: DELTASONE 20 MG PO SCH (10:00)
[2024-02-14] MEDS: solu-MEDROL 20 MG, Sterile H2O 10 ml 1 ML IV SCH (10:07)
[2024-02-14] MEDS: ZOLOFT 50 MG TABLET PO SCH (10:07)
[2024-02-14] MEDS: Zanaflex 4 MG PO SCH (10:08)
[2024-02-14] MEDS: Pepcid 20 MG PO SCH (10:08)
[2024-02-14] MEDS: Imdur 30 MG PO SCH (10:08)
[2024-02-14] MEDS: SYNTHROID 25 MCG PO SCH (10:08)
[2024-02-14] MEDS: XARELTO 10 MG TABLET PO SCH (10:08)
[2024-02-14] MEDS: KLONOPIN PO SCH (10:08)
[2024-02-14] MEDS: THEOPHYLLINE ER 24HR PO SCH (10:08)
[2024-02-14] MEDS: NICODERM CQ 14 MG TOP SCH (10:09)
[2024-02-14] MEDS: Protonix 40MG Tablet PO SCH (10:12)
[2024-02-14] MEDS: Zithromax 500 MG/ 250 ML NaCl Premix 500 MG/250 ML IVPB IV SCH (10:23)
[2024-02-14] MEDS: PROVENTIL 2.5 MG/3 ML NEB IH PRN (16:01)
[2024-02-14] MEDS: Seroquel 100 MG PO SCH (21:10)
[2024-02-15 06:01] LABS: Hematocrit 25.4 % (34.1-44.9); Hemoglobin 7.7 g/dL (11.2-15.7); Mean Cell Volume 78.4 fL (79.4-94.8); Mean Corpuscular Hemoglobin 23.8 pg (25.6-32.2); Mean Corpuscular Hgb Concent. 30.3 g/dL (32.2-35.5); Mean Platelet Volume 10.5 fL (9.4-12.3); Platelet Count 351 x10^3/uL (182-369); Red Blood Count 3.24 x10^6/uL (3.93-5.22); Red Cell Distribution Width 21.1 % (11.7-14.4)
[2024-02-15 07:15] LABS: ANION GAP 7.8 MEQ/L (5-15); Creatinine 1 0.81 mg/dL (0.52-1.04); Potassium 4.2 mmol/L (3.5-5.1)
--- NOTE | 2024-02-15 12:56 | PCM.NOTE ---
Date and Time: 02/15/24 0958 Subjective Assessment: is a 68 year old female with history of COPD (chronic 3 L oxygen) , CH F, CAD, hyperlipidemia, asthma, bronchitis, COPD, PE (on Xarelto), hypothyroidism, OA, GERD, hernia, anxiety, bipolar, depression, borderline personality d/o, manic depressive, chronic anemia, and fibroids. She was admitted with dyspnea and wheezing. Patient noticed onset 2 days ago of progressive worsening dyspnea and wheezing, associated with pleuritic chest pain. Chest pain was not relieved by nitroglycerin, but was relieved after getting a breathing treatment with EMS. She was not getting any initial relief with her home inhalers and states she felt impending doom. She denies any fevers, sick contacts, myalgias. She continues to have SOB and wheezing. She is on baseline O2 of 3lNC. Continue antibiotic, advair, duonebs, and steroids. Hgb 7.7 today. She denies dark or bloody stools. Occult stool pending. She denies CP, Abd.pain, N/V/D. - Review of Systems Constitutional: No Fever, No Chills Eyes: No Symptoms Ears, Nose, & Throat: No Symptoms Respiratory: Short Of Breath, Wheezing, No Cough Cardiac: No Chest Pain, No Edema, No Syncope Abdominal/Gastrointestinal: No Abdominal Pain, No Nausea, No Vomiting, No Diarrhea Genitourinary Symptoms: No Dysuria Musculoskeletal: No Back Pain, No Neck Pain Skin: No Rash Neurological: No Dizziness, No Focal Weakness, No Sensory Changes Psychological: No Symptoms Endocrine: No Symptoms Hematologic/Lymphatic: No Symptoms Immunological/Allergic: No Symptoms Objective Exam General Appearance: no apparent distress, alert Neurologic Exam: alert, oriented x 3, cooperative, normal mood/affect, nml cerebellar function, sensation nml, No motor deficits Skin Exam: normal color, warm, dry Eye Exam: PERRL, EOMI, eyes nml inspection Ears, Nose, Throat Exam: normal ENT inspection, pharynx normal, moist mucous membranes Neck Exam: normal inspection, non-tender, supple, full range of motion Respiratory Exam: wheezing, No respiratory distress Cardiovascular Exam: regular rate/rhythm, normal heart sounds Gastrointestinal/Abdomen Exam: soft, No tenderness, No mass Extremity Exam: normal inspection, normal range of motion Back Exam: normal inspection, normal range of motion, No CVA tenderness, No vertebral tenderness Pelvic Exam: deferred Rectal Exam: deferred Objective Data Vital Signs: Vital Signs - 24 hr Temp Pulse Resp BP Pulse Ox 02/15/24 11:56 97.8 F 90 16 91/54 95 02/15/24 07:31 80 18 98 02/15/24 07:26 98.0 F 83 16 143/65 100 02/15/24 04:00 96.8 F 83 18 110/56 98 02/15/24 01:08 91 H 20 98 02/15/24 00:00 97.0 F 81 21 122/43 90 L 02/14/24 19:30 97.5 F 100 H 20 112/64 98 02/14/24 18:55 101 H 18 99 02/14/24 16:02 96 H 18 96 02/14/24 16:00 97.5 F 99 H 20 107/56 99 02/14/24 13:07 100 H 18 98 Pain Assessment - Last Documented Pain Intensity 0 Pain Scale Used 0-10 Pain Scale Intake and Output: Intake & Output 02/13/24 02/14/24 02/15/24 02/16/24 11:59 11:59 11:59 11:59 Intake Total 600 960 Balance 600 960 Weight 69.1 kg Lab Results: Lab Results-Last 24 Hours 02/15/24 02/15/24 Range/Units 05:49 05:49 WBC 8.0 (3.98-10.04) x10^3/uL RBC 3.24 L (3.93-5.22) x10^6/uL Hgb 7.7 L (11.2-15.7) g/dL Hct 25.4 L (34.1-44.9) % MCV 78.4 L (79.4-94.8) fL MCH 23.8 L (25.6-32.2) pg MCHC 30.3 L (32.2-35.5) g/dL RDW 21.1 H (11.7-14.4) % Plt Count 351 (182-369) x10^3/uL MPV 10.5 (9.4-12.3) fL Sodium 139 (135-145) mmol/L Potassium 4.2 (3.5-5.1) mmol/L Chloride 107 (98-107) mmol/L Carbon Dioxide 29 (22-30) mmol/L Anion Gap 7.8 (5-15) MEQ/L BUN 16 (7-17) mg/dL Creatinine 0.81 (0.52-1.04) mg/dL Estimated GFR 80.0 ML/MIN Glucose 139 H (74-106) mg/dL Calcium 9.0 (8.4-10.2) mg/dL Radiology Exams: Radiology Procedures Category Date Time Status CHEST 1 VIEW (PORTABLE) Stat Exams 02/14/24 01:08 Completed Multi-Disciplinary Progress Notes: Multi-Disciplinary Progress Notes 02/15/24 11:23 Case Management Note by Edilma Schilling S/W PATIENT. STILL PLANS TO RETURN HOME WITH SON AT [facility] AT TIME OF DC. HAS SOME GROCERIES PROVIDED BY ACO. SUPPOSED TO HAVE APPT WITH [facility] TOMORROW WITH SOME CONFUSION ABOUT WHAT IS NEEDED RE: MEDICARE CARD. SPOKE WITH ACO AND THEY WILL SEE PATIENT AND F/U Initialized on 02/15/24 11:23 - END OF NOTE 02/14/24 12:54 Case Management Note by Anabela Brown REFERRAL FAXED TO [facility]. THEY WILL NEED NOTIFIED AT TIME OF DC AT [phone]. THEY WILL NEED FAXED THE DC INSTRUCTIONS, DC MED LIST AND DC SUMMARY TO [phone] Initialized on 02/14/24 12:54 - END OF NOTE Assessment/Plan (1) COPD exacerbation Current Visit: Yes Status: Acute Assessment & Plan: - Continue antibiotic, advair, duonebs, and steroids. - Continue Theophylline - On baseline O2 3lNC 100% - Continued wheezing - CXR: Impression: Nonacute chest with chronic features. Code(s): J44.1 - CHRONIC OBSTRUCTIVE PULMONARY DISEASE W (ACUTE) EXACERBATION (2) Hypothyroid Current Visit: No Status: Chronic Assessment & Plan: - Continue synthroid Code(s): E03.9 - HYPOTHYROIDISM, UNSPECIFIED (3) Anxiety and depression Current Visit: No Status: Chronic Assessment & Plan: - continue home meds Code(s): F41.9 - ANXIETY DISORDER, UNSPECIFIED; F32.A - DEPRESSION, UNSPECIFIED (4) Bipolar 1 disorder Current Visit: No Status: Chronic Assessment & Plan: - continue home meds Code(s): F31.9 - BIPOLAR DISORDER, UNSPECIFIED (5) CAD (coronary artery disease) Current Visit: No Status: Chronic Assessment & Plan: - tele - EKG - continue home meds Code(s): I25.10 - ATHSCL HEART DISEASE OF [place] CORONARY ARTERY W/O ANG PCTRS (6) Iron deficiency anemia Current Visit: No Status: Chronic Assessment & Plan: - Chronic - Iron level 25- 12/19/23 - iron panel - restart ferrous sulfate - Hgb 7.7 - occult stool pending Code(s): D50.9 - IRON DEFICIENCY ANEMIA, UNSPECIFIED (7) Smoker Current Visit: No Status: Chronic Assessment & Plan: - advised cessation - nicotine patch VTE: Xarelto PPI: pantoprazole Next of KIN: Child - Lawrence Reed [phone] D/C plan: tomorrow Code status: Full Code(s): F17.200 - NICOTINE DEPENDENCE, UNSPECIFIED, UNCOMPLICATED
[2024-02-15 14:57] LABS: Iron 25 ug/dL (37-170); Iron Saturation 7 % (20-39); TIBC 364 ug/dL (265-462)
[2024-02-15 16:13] LABS: Ferritin 7.81 ng/mL (11.1-264)
[2024-02-16 04:52] LABS: Hematocrit 26.8 % (34.1-44.9); Hemoglobin 7.9 g/dL (11.2-15.7); Mean Cell Volume 81.5 fL (79.4-94.8); Mean Corpuscular Hgb Concent. 29.5 g/dL (32.2-35.5); Mean Platelet Volume 9.9 fL (9.4-12.3); Platelet Count 347 x10^3/uL (182-369); Red Blood Count 3.29 x10^6/uL (3.93-5.22); Red Cell Distribution Width 21.4 % (11.7-14.4); White Blood Count 9.5 x10^3/uL (3.98-10.04)
[2024-02-16 05:19] LABS: ALBUMIN 3.4 g/dL (3.5-5.0); BILIRUBIN,TOTAL 0.1 mg/dL (0.2-1.3); Calcium 8.9 mg/dL (8.4-10.2); Creatinine 1 0.92 mg/dL (0.52-1.04); EST GLOMERULAR FILTRATION RATE 68.7 ML/MIN; Potassium 4.4 mmol/L (3.5-5.1); Total Protein 5.9 g/dL (6.3-8.2)
[2024-02-16] MEDS: FEOSOL 325 MG PO SCH (09:20)
--- NOTE | 2024-02-16 10:37 | PCM.DS ---
Discharge Summary Date of Admission: 02/14/24 04:10 Date of Discharge: 02/16/24 Admitting Physician: BUD CHAMPION MD Primary Care Provider: NISHA,WEN Allergies Allergies morphine Allergy (Severe, Verified 02/14/24 01:19) Fainting oxycodone Allergy (Verified 02/14/24 01:19) Shortness of Breath Penicillins Allergy (Verified 02/14/24 01:19) oxymorphone Adverse Reaction (Severe, Verified 02/14/24 01:19) Fainting [place]ut Adverse Reaction (Intermediate, Verified 02/14/24 01:19) Headache bupropion HCl [From Wellbutrin] Adverse Reaction (Mild, Verified 02/14/24 01:19) [facility] Summary - Hospital Course Hospital Course: 02/15/24 is a 68 year old female with history of COPD (chronic 3 L oxygen) , CHF, CAD, hyperlipidemia, asthma, bronchitis, COPD, PE (on Xarelto), hypothyroidism, OA, GERD, hernia, anxiety, bipolar, depression, borderline personality d/o, manic depressive, chronic anemia, and fibroids. She was admitted with dyspnea and wheezing. Patient noticed onset 2 days ago of progressive worsening dyspnea and wheezing, associated with pleuritic chest pain. Chest pain was not relieved by nitroglycerin, but was relieved after getting a breathing treatment with EMS. She was not getting any initial relief with her home inhalers and states she felt impending doom. She denies any fevers, sick contacts, myalgias. She continues to have SOB and wheezing. She is on baseline O2 of 3lNC. Continue antibiotic, advair, duonebs, and steroids. Hgb 7.7 today. She denies dark or bloody stools. Occult stool pending. She denies CP, Abd.pain, N/V/D. 02/16/24 Pt sitting up in bed. She is wanting to d/c today. Lung sounds have improved. She is on her baseline O2 of 3 L NC. She is having a little bit of an upset stomach and tums ordered. Will d/c with nebs, antibiotics, and steroids. She will need to f/u with OP surgery for colonoscopy for chronic anemia eval . Case management set up [facility] and delivery of neb machine. She denies any further concerns at this time. - Vitals & Intake/Output Vital Signs: Vital Signs Temperature 97.9 F 02/16/24 07:42 Pulse Rate 75 02/16/24 07:42 Respiratory Rate 16 02/16/24 07:42 Blood Pressure 135/73 02/16/24 07:42 O2 Sat by Pulse Oximetry 99 02/16/24 07:42 Intake & Output: Intake & Output 02/13/24 02/14/24 02/15/24 02/16/24 11:59 11:59 11:59 11:59 Intake Total 762 753 3262 Balance 625 246 6846 Weight 69.1 kg - Lab Result Diagrams: 02/16/24 04:45 02/16/24 04:45 Lab Results-Last 24 Hrs: Lab Results-Last 24 Hours 02/15/24 02/15/24 02/16/24 Range/Units 05:49 05:49 04:45 WBC 9.5 (3.98-10.04) x10^3/uL RBC 3.29 L (3.93-5.22) x10^6/uL Hgb 7.9 L (11.2-15.7) g/dL Hct 26.8 L (34.1-44.9) % MCV 81.5 (79.4-94.8) fL MCH 24.0 L (25.6-32.2) pg MCHC 29.5 L (32.2-35.5) g/dL RDW 21.4 H (11.7-14.4) % Plt Count 347 (182-369) x10^3/uL MPV 9.9 (9.4-12.3) fL Sodium (135-145) mmol/L Potassium (3.5-5.1) mmol/L Chloride (98-107) mmol/L Carbon Dioxide (22-30) mmol/L Anion Gap (5-15) MEQ/L BUN (7-17) mg/dL Creatinine (0.52-1.04) mg/dL Estimated GFR ML/MIN Glucose (74-106) mg/dL Calcium (8.4-10.2) mg/dL Iron 25 L (37-170) ug/dL TIBC 364 (265-462) ug/dL Iron Saturation 7 L (20-39) % Ferritin 7.81 L (11.1-264) ng/mL Total Bilirubin (0.2-1.3) mg/dL AST (14-36) U/L ALT (0-35) U/L Alkaline Phosphatase (38-126) U/L Serum Total Protein (6.3-8.2) g/dL Albumin (3.5-5.0) g/dL Vitamin B12 242 (239-931) pg/mL Folic Acid Pending 02/16/24 Range/Units 04:45 WBC (3.98-10.04) x10^3/uL RBC (3.93-5.22) x10^6/uL Hgb (11.2-15.7) g/dL Hct (34.1-44.9) % MCV (79.4-94.8) fL MCH (25.6-32.2) pg MCHC (32.2-35.5) g/dL RDW (11.7-14.4) % Plt Count (182-369) x10^3/uL MPV (9.4-12.3) fL Sodium 139 (135-145) mmol/L Potassium 4.4 (3.5-5.1) mmol/L Chloride 107 (98-107) mmol/L Carbon Dioxide 29 (22-30) mmol/L Anion Gap 8.0 (5-15) MEQ/L BUN 23 H (7-17) mg/dL Creatinine 0.92 (0.52-1.04) mg/dL Estimated GFR 68.7 ML/MIN Glucose 137 H (74-106) mg/dL Calcium 8.9 (8.4-10.2) mg/dL Iron (37-170) ug/dL TIBC (265-462) ug/dL Iron Saturation (20-39) % Ferritin (11.1-264) ng/mL Total Bilirubin 0.10 L (0.2-1.3) mg/dL AST 18 (14-36) U/L ALT 15 (0-35) U/L Alkaline Phosphatase 61 (38-126) U/L Serum Total Protein 5.9 L (6.3-8.2) g/dL Albumin 3.4 L (3.5-5.0) g/dL Vitamin B12 (239-931) pg/mL Folic Acid Micro Results-Entire Visit: Microbiology 02/14/24 01:40 Blood Culture - Preliminary Blood 02/14/24 01:30 Blood Culture - Preliminary Blood - Procedures and Test Procedures and Tests throughout Hospitalization: Therapy Orders & Screens 02/14/24 03:07 Respiratory Therapy Assessment DAILY Comment: 02/14/24 05:33 Respiratory MDI UD Comment: Diagnosis: copd exacerbation 02/14/24 05:34 Oxygen Nasal Cannula 3 lpm Comment: Diagnosis: copd exacerbation Discharge Exam General Appearance: no apparent distress, alert Neurologic Exam: alert, oriented x 3, cooperative, normal mood/affect, nml cerebellar function, sensation nml, No motor deficits Eye Exam: PERRL, EOMI, eyes nml inspection Ears, Nose, Throat Exam: normal ENT inspection, pharynx normal, moist mucous membranes Neck Exam: normal inspection, non-tender, supple, full range of motion Respiratory Exam: normal breath sounds, lungs clear, No respiratory distress Cardiovascular Exam: regular rate/rhythm, normal heart sounds Gastrointestinal/Abdomen Exam: soft, No tenderness, No mass Pelvic Exam: deferred Rectal Exam: deferred Back Exam: normal inspection, normal range of motion, No CVA tenderness, No vertebral tenderness Extremity Exam: normal inspection, normal range of motion Skin Exam: normal color, warm, dry Final Diagnosis/Problem List - Final Discharge Diagnosis/Problem (1) COPD exacerbation Current Visit: Yes Status: Acute Code(s): J44.1 - CHRONIC OBSTRUCTIVE PULMONARY DISEASE W (ACUTE) EXACERBATION (2) Hypothyroid Current Visit: No Status: Chronic Code(s): E03.9 - HYPOTHYROIDISM, UNSPECIFIED (3) Anxiety and depression Current Visit: No Status: Chronic Code(s): F41.9 - ANXIETY DISORDER, UNSPECIFIED; F32.A - DEPRESSION, UNSPECIFIED (4) Bipolar 1 disorder Current Visit: No Status: Chronic Code(s): F31.9 - BIPOLAR DISORDER, UNSPECIFIED (5) CAD (coronary artery disease) Current Visit: No Status: Chronic Code(s): I25.10 - ATHSCL HEART DISEASE OF [place] CORONARY ARTERY W/O ANG PCTRS (6) Iron deficiency anemia Current Visit: No Status: Chronic Code(s): D50.9 - IRON DEFICIENCY ANEMIA, UNSPECIFIED (7) Smoker Current Visit: No Status: Chronic Assessment & Plan: (1) COPD exacerbation Current Visit: Yes Status: Acute Assessment & Plan: - Continue antibiotic, advair, duonebs, and steroids. - Continue Theophylline - On baseline O2 3lNC 100% - Continued wheezing - CXR: Impression: Nonacute chest with chronic features. Code(s): J44.1 - CHRONIC OBSTRUCTIVE PULMONARY DISEASE W (ACUTE) EXACERBATION (2) Hypothyroid Current Visit: No Status: Chronic Assessment & Plan: - Continue synthroid Code(s): E03.9 - HYPOTHYROIDISM, UNSPECIFIED (3) Anxiety and depression Current Visit: No Status: Chronic Assessment & Plan: - continue home meds Code(s): F41.9 - ANXIETY DISORDER, UNSPECIFIED; F32.A - DEPRESSION, UNSPECIFIED (4) Bipolar 1 disorder Current Visit: No Status: Chronic Assessment & Plan: - continue home meds Code(s): F31.9 - BIPOLAR DISORDER, UNSPECIFIED (5) CAD (coronary artery disease) Current Visit: No Status: Chronic Assessment & Plan: - tele - EKG - continue home meds Code(s): I25.10 - ATHSCL HEART DISEASE OF [place] CORONARY ARTERY W/O ANG PCTRS (6) Iron deficiency anemia Current Visit: No Status: Chronic Assessment & Plan: - Chronic - Iron level 25- 12/19/23 - iron panel - restart ferrous sulfate - Hgb 7.7 - occult stool pending 02/15 - F/U OP with [facility] for Colonoscopy - Hgb 7.9 - unable to obtain occult stool - Pt does not want to f/u with any other specialist and states her PCP will handle everything - Consider referral to Hematology Code(s): D50.9 - IRON DEFICIENCY ANEMIA, UNSPECIFIED (7) Smoker Current Visit: No Status: Chronic Assessment & Plan: - advised cessation - nicotine patch Code(s): F17.200 - NICOTINE DEPENDENCE, UNSPECIFIED, UNCOMPLICATED - Discharge Discharge Date: 02/16/24 Disposition: Home, Self-Care Condition: Good Prescriptions: New Ferrous Sulfate 325 mg [Feosol 325 mg] 325 mg PO DAILY 30 Days #30 tablet Continue Fluticasone/Salmeterol Disc [Advair/W[place]ella 250-50 Diskus 14 Dose] 1 puff IH BID Famotidine 20 mg [Pepcid 20 MG] 20 mg PO BID Albuterol/Ipratropium Mdi [Combivent Inhaler] 1 puff IH QID Sertraline HCl 100 mg [Zoloft 100 MG] 200 mg PO DAILY Isosorbide Mononitrate 30 mg [Imdur 30 MG] 30 mg PO DAILY Tizanidine HCl 4 mg [Zanaflex 4 MG] 4 mg PO TID Quetiapine Fumarate [Seroquel] 300 mg PO HS Nitroglycerin 0.4 mg Tablet [Nitrostat 0.4 MG Tablet] 0.4 mg SL UD PRN PRN Reason: Chest Pain Theophylline Anhydrous [Theophylline ER] 300 mg PO DAILY Fluticasone Propionate [Flonase NASAL] 1 spray NS BID Levothyroxine Sodium 25 Mcg [Synthroid 25 Mcg] 25 mcg PO DAILY tablet Omeprazole 40 mg PO DAILY Albuterol Sulfate Mdi [ALBUTEROL/Proair Hfa MDI] 2 puff IH QID Clonazepam [Klonopin] 2 mg PO BID Gabapentin 1,200 mg PO BREAKFAST Gabapentin [Neurontin ] 2,400 mg PO HS cap Rivaroxaban [Xarelto] 20 mg PO DAILY Discontinued Doxycycline Hyclate 100 mg [Vibramycin 100 MG] 100 mg PO BID #20 tab Additional Instructions: [facility] HAS BEEN SET UP FOR YOU. THEY WILL CALL YOU TO ARRANGE A TIME TO COME SEE YOU. THEIR PHONE NUMBER IS [phone] IF YOU NEED ANYTHING BEFORE THEIR FIRST VISIT. YOU CAN CONTACT [facility] AT [phone] ext [phone] IF YOU NEED HELP ARRANGING RIDES OR NEED HELP WITH GROCERIES. Follow up with: WEN CAMERON MD [Primary Care Provider] -
[2024-02-16] MEDS: Tums EX 750 MG PO ONE (11:58)
[2024-02-16 12:30] VITALS: BP 119/57; TEMP 97.6
[2024-02-16 12:38] VITALS: PULSE 97; RESP 20; O2SAT 97
== END 2024-02-16 14:43 | disposition home or self-care (01) ==
LOC: ED 00:56 → MED SURG 04:10
PROVIDERS: ADMIT Internal Medicine; ATTEND Internal Medicine
DX: J44.1 Chronic obstructive pulmonary disease with (acute) exacerbation (principal); E03.9 Hypothyroidism, unspecified; F41.9 Anxiety disorder, unspecified; F31.9 Bipolar disorder, unspecified; I25.10 Atherosclerotic heart disease of native coronary artery without angina pectoris; D50.9 Iron deficiency anemia, unspecified; J96.11 Chronic respiratory failure with hypoxia; E78.5 Hyperlipidemia, unspecified; F17.200 Nicotine dependence, unspecified, uncomplicated; Z99.81 Dependence on supplemental oxygen; Z79.899 Other long term (current) drug therapy; Z79.01 Long term (current) use of anticoagulants; Z86.711 Personal history of pulmonary embolism
CPT/HCPCS: 0241U; 36415; 71045; 80048; 80053; 82607; 82728; 82746; 82805; 83540; 83550; 83605; 84145; 85025; 85027; 87040; 93005; 94640; 94760; 99284; Q3014; J0456; J2919; J7609; A9270-GY

== ENCOUNTER 2024-02-27 20:13 | Emergency (ER) | payer MEDICARE, OTHER ==
--- NOTE | 2024-02-27 20:27 | ERPHSYRPT ---
- History of Present Illness Time Seen by Provider: 02/27/24 20:13 Source: patient Exam Limitations: no limitations Physician History: Pt states yesterday she started with a sore throat, cough, shortness of air and chest pain; denies diarrhea, abdominal pain, earaches. Allergies/Adverse Reactions: morphine Allergy (Severe, Verified 02/27/24 20:35) Fainting oxycodone Allergy (Verified 02/27/24 20:35) Shortness of Breath Penicillins Allergy (Verified 02/27/24 20:35) oxymorphone Adverse Reaction (Severe, Verified 02/27/24 20:35) Fainting Coconut Adverse Reaction (Intermediate, Verified 02/27/24 20:35) Headache bupropion HCl [From Wellbutrin] Adverse Reaction (Mild, Verified 02/27/24 20:35) Hives Home Medications: Albuterol/Ipratropium Mdi [Combivent Inhaler] 1 puff IH QID 12/29/12 [History] Famotidine 20 mg [Pepcid 20 MG] 20 mg PO BID 12/29/12 [History] Fluticasone/Salmeterol Disc [Advair/[place] 250-50 Diskus 14 Dose] 1 puff IH BID 12/29/12 [History] Sertraline HCl 100 mg [Zoloft 100 MG] 200 mg PO DAILY 12/17/13 [History] Isosorbide Mononitrate 30 mg [Imdur 30 MG] 30 mg PO DAILY 11/05/14 [History] Tizanidine HCl 4 mg [Zanaflex 4 MG] 4 mg PO TID 01/16/15 [History] Quetiapine Fumarate [Seroquel] 300 mg PO HS 10/17/15 [History] Nitroglycerin 0.4 mg Tablet [Nitrostat 0.4 MG Tablet] 0.4 mg SL UD PRN 11/15/15 [History] Theophylline Anhydrous [Theophylline ER] 300 mg PO DAILY 12/23/20 [History] Fluticasone Propionate [Flonase NASAL] 1 spray NS BID 03/15/21 [History] Omeprazole 40 mg PO DAILY 10/22/21 [History] Albuterol Sulfate Mdi [ALBUTEROL/Proair Hfa MDI] 2 puff IH QID 03/10/23 [History] Clonazepam [Klonopin] 2 mg PO BID 03/10/23 [History] Gabapentin 1,200 mg PO BREAKFAST 03/11/23 [History] Rivaroxaban [Xarelto] 20 mg PO DAILY 01/24/24 [History] Hx Tetanus, Diphtheria Vaccination/Date Given: No Hx Influenza Vaccination/Date Given: No Hx Pneumococcal Vaccination/Date Given: No Travel Risk - Emerging Infectious Disease Are you exhibiting symptoms associated with any current EIDs: Yes Symptoms: Shortness of Breath - Review of Systems Ears, Nose, & Throat: Throat Pain, No Ear Pain Respiratory: Cough, Dyspnea Cardiac: Chest Pain Abdominal/Gastrointestinal: No Abdominal Pain, No Diarrhea Neurological: No Headache - Past Medical History Pertinent Past Medical History: Yes Neurological History: Migraines ENT History: No Pertinent History Cardiac History: Congestive Heart Failure, Coronary Artery Disease, High Cholesterol, Other Respiratory History: Asthma, Bronchitis, COPD, Pneumonia, Pulmonary Embolism Endocrine Medical History: Hypothyroidism Musculoskeletal History: Arthritis, Osteoporosis GI Medical History: GERD, Hernia, Polyps History: No Pertinent History Psycho-Social History: Anxiety, Bipolar, Depression, Other Female Reproductive Disorders: Fibroids Other Medical History: 2 LEAKY VALVES. BORDERLINE PERSONALITY DISORDER, PTSD, manic depressive. Anemia - Past Surgical History Past Surgical History: Yes Neuro Surgical History: No Pertinent History Cardiac: Cardiac Catheterization Respiratory: No Pertinent History Gastrointestinal: Other Genitourinary: No Pertinent History Musculoskeletal: Other Female Surgical History: Section Other Surgical History: ARM SURGERY-- left wrist laceration from a glass door, 2 c-sections, EGD with dilitation, colonoscopy, heart cath x 2 Significant Family History: heart disease, diabetes - Social History Smoking Status: Current every day smoker How long have you smoked: 50 Exposure to second hand smoke: Yes Alcohol Use: Socially Drug Use: marijuana Patient Lives Alone: No - Social Determinants of Health Will the patient participate in the screening: Yes Do you worry about a steady place to live?: No In the past 12 months,have you had to go without utilities?: No Transportation Issues: No Has anyone in your support network made you feel unsafe?: No Have you or anyone in your house had to go without enough: No - Nursing Vital Signs Nursing Vital Signs: Initial Vital Signs Temperature 97.9 F 02/27/24 20:20 Pulse Rate 97 H 02/27/24 20:20 Respiratory Rate 23 02/27/24 20:20 Blood Pressure 135/87 02/27/24 20:20 O2 Sat by Pulse Oximetry 96 02/27/24 20:20 Pain Scale Pain Intensity 5 - Physical Exam General Appearance: alert Eye Exam: eyes nml inspection Ears, Nose, Throat Exam: pharyngeal erythema Neck Exam: normal inspection Respiratory Exam: wheezing (moderate diffuse expiratory wheezing) Cardiovascular/Chest Exam: normal heart sounds Abdominal/Gastrointestinal Exam: normal bowel sounds Extremity Exam: No pedal edema Neurologic Exam: alert, cooperative Skin Exam: No cyanosis SpO2 Interpretation: normal SpO2: 96 O2 Delivery: Nasal Cannula - Course EKG Interpreted by Me: RATE (94), Sinus Rhythm, Right [place] Deviation, Other (QTc = 483) Ordered Tests: Active Orders 24 hr Category Date Time Status Virtual Assistant For Advertisers STAT Care 02/27/24 20:24 Active EKG-ER Only STAT Care 02/27/24 20:20 Active IV Insertion STAT Care 02/27/24 20:20 Active Oxygen-ED Only Nasal Cannula 4 lpm Care 02/27/24 20:24 Active Pulse Oximetry (ED) STAT Care 02/27/24 20:24 Active CHEST WITH CONTRAST [CT] Stat Exams 02/27/24 20:22 Taken AMYLASE Stat Lab 02/27/24 20:40 Completed BLOOD CULTURE Stat Lab 02/27/24 20:45 Received CBC W DIFF Stat Lab 02/27/24 20:40 Completed CMP Stat Lab 02/27/24 20:40 Completed CULTURE,SPUTUM Stat Lab 02/27/24 21:38 Ordered LIPASE Stat Lab 02/27/24 20:40 Completed MAGNESIUM Stat Lab 02/27/24 20:40 Completed NT PRO BNPII Stat Lab 02/27/24 20:40 Completed TROPONIN Q4H Lab 02/27/24 20:40 Completed TROPONIN Q4H Lab 02/28/24 00:30 Ordered TROPONIN Q4H Lab 02/28/24 04:30 Ordered UA W/RFX UR CULTURE Stat Lab 02/27/24 20:20 Ordered VENOUS BLOOD GAS Stat Lab 02/27/24 20:24 Completed BiPap/CPAP STAT RT 02/27/24 22:59 Active Respiratory Therapy Assessment DAILY RT 02/27/24 20:35 Active Medication Summary Discontinued Medications Generic Name Dose Route Start Last Admin Trade Name Yordan MENDENHALLN Reason Stop Dose Admin Albuterol Sulfate 2.5 mg 02/27/24 20:24 02/27/24 20:33 Albuterol Sulfate 2.5 Mg/3 Ml Neb IH 02/27/24 20:25 2.5 mg STAT ONE Administration Albuterol Sulfate Confirm 02/27/24 20:30 Albuterol Sulfate 2.5 Mg/3 Ml Neb Administered 02/27/24 20:31 Dose 2.5 mg IH .STK-MED ONE Albuterol Sulfate Confirm 02/27/24 22:31 Albuterol Sulfate 2.5 Mg/3 Ml Neb Administered 02/27/24 22:32 Dose 2.5 mg IH .STK-MED ONE Albuterol Sulfate 2.5 mg 02/27/24 22:37 02/27/24 22:39 Albuterol Sulfate 2.5 Mg/3 Ml Neb IH 02/27/24 22:38 2.5 mg STAT ONE Administration Aspirin 324 mg 02/27/24 21:44 02/27/24 21:49 Aspirin 81 Mg Tab.Chew PO 02/27/24 21:45 324 mg STAT ONE Administration Aspirin Confirm 02/27/24 21:48 Aspirin 81 Mg Tab.Chew Administered 02/27/24 21:49 Dose 324 mg .ROUTE .STK-MED ONE Ceftriaxone Sodium 1 gm in 100 mls @ 200 mls/hr 02/27/24 20:24 02/27/24 21:26 Rocephin 1 Gm / 100 Ml Nacl IV 02/27/24 20:53 Infused STAT ONE Infusion Azithromycin 500 mg in 250 mls @ 250 mls/hr 02/27/24 20:24 02/27/24 21:33 Zithromax 500 Mg/ 250 Ml Nacl Premix IV 02/27/24 21:23 250 mls/hr STAT STA 250 mls/hr Administration Ceftriaxone Sodium Confirm 02/27/24 20:54 Rocephin 1 Gm / 100 Ml Nacl Administered 02/27/24 20:55 Dose 1 gm in 100 mls @ ud IV .STK-MED ONE Azithromycin Confirm 02/27/24 21:32 Zithromax 500 Mg/ 250 Ml Nacl Premix Administered 02/27/24 21:33 Dose 500 mg in 250 mls @ ud IV .STK-MED ONE Nitroglycerin 0.4 mg 02/27/24 21:44 02/27/24 21:51 Nitroglycerin 0.4 Mg (Ed) 0.4 Mg Tab.Subl SL 02/27/24 21:45 0.4 mg STAT ONE Administration Nitroglycerin Confirm 02/27/24 21:48 Nitroglycerin 0.4 Mg (Ed) 0.4 Mg Tab.Subl Administered 02/27/24 21:49 Dose 0.4 mg SL .STK-MED ONE Lab/Rad Data: Laboratory Result Diagrams 02/27/24 20:40 02/27/24 20:40 Laboratory Results 02/27/24 02/27/24 02/27/24 Range/Units 20:45 20:45 20:40 WBC (3.98-10.04) x10^3/uL RBC (3.93-5.22) x10^6/uL Hgb (11.2-15.7) g/dL Hct (34.1-44.9) % MCV (79.4-94.8) fL MCH (25.6-32.2) pg MCHC (32.2-35.5) g/dL RDW (11.7-14.4) % Plt Count (182-369) x10^3/uL MPV (9.4-12.3) fL Gran % (34.0-71.1) % Immature Gran % (Auto) (0.001-0.429) % Nucleat RBC Rel Count (0.00-0.2) % Eos # (Auto) (0.04-0.36) x10^3/uL Immature Gran # (Auto) (0.001-0.031) x10^3u/L Absolute Lymphs (auto) (1.18-3.74) x10^3/uL Absolute Monos (auto) (0.24-0.86) x10^3/uL Absolute Nucleated RBC (0.00-0.012) x10^3u/L Lymphocytes % (19.3-51.7) % Monocytes % (4.7-12.5) % Eosinophils % (0.7-5.8) % Basophils % (0.1-1.2) % Absolute Granulocytes (1.56-6.13) x10^3/uL Basophils # (0.01-0.08) x10^3/uL pO2/FiO2 Ratio % VBG pH (7.32-7.42) VBG pCO2 at Pat Temp (42-55) mm/Hg VBG pO2 at Pat Temp (25-40) mm/Hg VBG HCO3 (22-28) meq/L VBG O2 Sat (Paulo) (95-100) VBG Base Excess (-2.0-2.0) VBG Hemoglobin VBG Carboxyhemoglobin (0.0-6.9) % T HGB POC Potassium (3.5-5.1) Sodium (135-145) mmol/L Potassium (3.5-5.1) mmol/L Chloride (98-107) mmol/L Carbon Dioxide (22-30) mmol/L Anion Gap (5-15) MEQ/L BUN (7-17) mg/dL Creatinine (0.52-1.04) mg/dL Estimated GFR ML/MIN Glucose (74-106) mg/dL Calcium (8.4-10.2) mg/dL Magnesium (1.6-2.3) mg/dL Total Bilirubin (0.2-1.3) mg/dL AST (14-36) U/L ALT (0-35) U/L Alkaline Phosphatase (38-126) U/L Troponin I 0.444 H* (0.000-0.033) ng/mL NT-Pro-B Natriuret Pep (<300) pg/mL Serum Total Protein (6.3-8.2) g/dL Albumin (3.5-5.0) g/dL Amylase (30-110) U/L Lipase (23-300) U/L Influenza Type A Ag NEGATIVE (NEGATIVE) Influenza Type B Ag NEGATIVE (NEGATIVE) RSV (PCR) NEGATIVE (NEGATIVE) SARS-CoV-2 (PCR) NEGATIVE (NEGATIVE) Group A Strep Antibody NOT DETECTED (NEGATIVE) Slides for Path Review 02/27/24 02/27/24 02/27/24 Range/Units 20:40 20:40 20:24 WBC 4.2 (3.98-10.04) x10^3/uL RBC 4.28 (3.93-5.22) x10^6/uL Hgb 10.3 L (11.2-15.7) g/dL Hct 35.2 (34.1-44.9) % MCV 82.2 (79.4-94.8) fL MCH 24.1 L (25.6-32.2) pg MCHC 29.3 L (32.2-35.5) g/dL RDW 20.0 H (11.7-14.4) % Plt Count 312 (182-369) x10^3/uL MPV 9.8 (9.4-12.3) fL Gran % 55.7 (34.0-71.1) % Immature Gran % (Auto) 0.2 (0.001-0.429) % Nucleat RBC Rel Count 0.0 (0.00-0.2) % Eos # (Auto) 0.09 (0.04-0.36) x10^3/uL Immature Gran # (Auto) 0.01 (0.001-0.031) x10^3u/L Absolute Lymphs (auto) 1.29 (1.18-3.74) x10^3/uL Absolute Monos (auto) 0.42 (0.24-0.86) x10^3/uL Absolute Nucleated RBC 0.00 (0.00-0.012) x10^3u/L Lymphocytes % 31.1 (19.3-51.7) % Monocytes % 10.1 (4.7-12.5) % Eosinophils % 2.2 (0.7-5.8) % Basophils % 0.7 (0.1-1.2) % Absolute Granulocytes 2.31 (1.56-6.13) x10^3/uL Basophils # 0.03 (0.01-0.08) x10^3/uL pO2/FiO2 Ratio 32.0 % VBG pH 7.47 H (7.32-7.42) VBG pCO2 at Pat Temp 48 (42-55) mm/Hg VBG pO2 at Pat Temp 32 (25-40) mm/Hg VBG HCO3 34.9 H* (22-28) meq/L VBG O2 Sat (Paulo) 62.2 L (95-100) VBG Base Excess 9.9 H (-2.0-2.0) VBG Hemoglobin 10.9 VBG Carboxyhemoglobin 5.9 (0.0-6.9) % T HGB POC Potassium 3.8 (3.5-5.1) Sodium 141 (135-145) mmol/L Potassium 3.6 (3.5-5.1) mmol/L Chloride 104 (98-107) mmol/L Carbon Dioxide 35 H (22-30) mmol/L Anion Gap 5.4 (5-15) MEQ/L BUN 10 (7-17) mg/dL Creatinine 0.60 (0.52-1.04) mg/dL Estimated GFR 98.9 ML/MIN Glucose 119 H (74-106) mg/dL Calcium 9.0 (8.4-10.2) mg/dL Magnesium 2.0 (1.6-2.3) mg/dL Total Bilirubin 0.30 (0.2-1.3) mg/dL AST 38 H (14-36) U/L ALT 20 (0-35) U/L Alkaline Phosphatase 78 (38-126) U/L Troponin I (0.000-0.033) ng/mL NT-Pro-B Natriuret Pep 411 (<300) pg/mL Serum Total Protein 7.4 (6.3-8.2) g/dL Albumin 3.9 (3.5-5.0) g/dL Amylase 42 (30-110) U/L Lipase 38 (23-300) U/L Influenza Type A Ag (NEGATIVE) Influenza Type B Ag (NEGATIVE) RSV (PCR) (NEGATIVE) SARS-CoV-2 (PCR) (NEGATIVE) Group A Strep Antibody (NEGATIVE) Slides for Path Review YES - Progress Progress: unchanged Discussed with .: Other (Spoke with & discussed pt with Dr. Clarke([id number]) who accepted pt for transfer to [facility].) Counseled pt/family regarding: lab results, diagnosis, rad results Medical Desision Making - Diagnostic Testing Diagnostic test were ordered, analyzed, and reviewed by me: Yes Radiological Interpretation: Teleradiologist Report - Departure Departure Disposition: Transfer ([facility] ER) Clinical Impression: Elevated troponin, Chest pain, Dyspnea Condition: Stable Critical Care Time: No Referrals: WEN CAMERON MD [Primary Care Provider] - Follow up/PCP as directed
[2024-02-27] MEDS ORDERED: PROVENTIL 2.5 MG/3 ML NEB IH ONE ×2 (20:30→22:31)
[2024-02-27] MEDS: PROVENTIL 2.5 MG/3 ML NEB IH ONE ×2 (20:33→22:39)
[2024-02-27 20:34] VITALS: TEMP 97.9
[2024-02-27 20:50] LABS: VBG BASE EXCESS 9.9 (-2.0-2.0); VBG CARBOXYHEMOGLOBIN 5.9 % T HGB (0.0-6.9); VBG HCO3- 34.9 meq/L (22-28); VBG HEMOGLOBIN 10.9; VBG O2 SATURATION 62.2 (95-100); VBG POTASSIUM 3.8 (3.5-5.1); VBG pH 7.47 (7.32-7.42)
[2024-02-27 20:53] LABS: Absolute Neutrophil Ct (ANC) 2.31 x10^3/uL (1.56-6.13); BASOPHIL % 0.7 % (0.1-1.2); Basophil (Absolute #) 0.03 x10^3/uL (0.01-0.08); Eosinophil % 2.2 % (0.7-5.8); Eosinophil (Absolute #) 0.09 x10^3/uL (0.04-0.36); Hematocrit 35.2 % (34.1-44.9); Hemoglobin 10.3 g/dL (11.2-15.7); IMMATURE GRAN # 0.01 x10^3u/L (0.001-0.031); IMMATURE GRAN % 0.2 % (0.001-0.429); Lymphocyte (Absolute #) 1.29 x10^3/uL (1.18-3.74); Lymphocytes % 31.1 % (19.3-51.7); Mean Cell Volume 82.2 fL (79.4-94.8); Mean Corpuscular Hemoglobin 24.1 pg (25.6-32.2); Mean Corpuscular Hgb Concent. 29.3 g/dL (32.2-35.5); Mean Platelet Volume 9.8 fL (9.4-12.3); Monocyte (Absolute #) 0.42 x10^3/uL (0.24-0.86); Monocytes % 10.1 % (4.7-12.5); Neutrophil % 55.7 % (34.0-71.1); Platelet Count 312 x10^3/uL (182-369); Red Blood Count 4.28 x10^6/uL (3.93-5.22); White Blood Count 4.2 x10^3/uL (3.98-10.04)
[2024-02-27] MEDS ORDERED: ROCEPHIN 1 GM / 100 ML NaCl 1 GM/100 ML IVPB IV ONE (20:54)
[2024-02-27] MEDS: ROCEPHIN 1 GM / 100 ML NaCl 1 GM/100 ML IVPB IV ONE (20:55)
[2024-02-27 21:16] LABS: ALBUMIN 3.9 g/dL (3.5-5.0); ANION GAP 5.4 MEQ/L (5-15); BILIRUBIN,TOTAL 0.3 mg/dL (0.2-1.3); Creatinine 1 0.6 mg/dL (0.52-1.04); EST GLOMERULAR FILTRATION RATE 98.9 ML/MIN; Potassium 3.6 mmol/L (3.5-5.1); Total Protein 7.4 g/dL (6.3-8.2)
[2024-02-27] MEDS ORDERED: Zithromax 500 MG/ 250 ML NaCl Premix 500 MG/250 ML IVPB IV ONE (21:32)
[2024-02-27] MEDS: Zithromax 500 MG/ 250 ML NaCl Premix 500 MG/250 ML IVPB IV STA (21:33)
[2024-02-27 21:37] LABS: INFLUENZA A NEGATIVE (NEGATIVE); INFLUENZA B NEGATIVE (NEGATIVE); RESPIRATORY SYNCTIAL VIRUS NEGATIVE (NEGATIVE); SARS-CoV-2 Xpert Express NEGATIVE (NEGATIVE)
[2024-02-27] MEDS ORDERED: BABY ASPIRIN 81 MG CHEW ONE (21:48)
[2024-02-27] MEDS ORDERED: Nitrostat 0.4 MG (ED) SL ONE (21:48)
[2024-02-27] MEDS: BABY ASPIRIN 81 MG CHEW PO ONE (21:49)
[2024-02-27] MEDS: Nitrostat 0.4 MG (ED) SL ONE (21:51)
[2024-02-27 23:10] LABS: Slide Review 1 YES
--- NOTE | 2024-02-27 23:26 | XRAY ---
CLINICAL HISTORY: Dyspnea COMPARISON: 23 June 2023. TECHNIQUE: Contiguous axial images were obtained from the neck base through the upper abdomen with contrast. In addition, sagittal and coronal reconstructions were performed to potentially increase the sensitivity for the detection of disease. CT scan was performed according to ALARA (as low as reasonably achievable). FINDINGS: Complete resolution of the previously seen right upper lobe cavitary consolidation is noted. Fibrotic scar is noted in this region. Stable centriacinar emphysematous changes are noted involving bilateral upper lobe and superior segments of bilateral lower lobes. Multiple branching centrilobular nodules are noted involving right middle lobe and lower lobe segments. Small subpleural nodule/consolidation is noted in the medial segment of right middle lobe. Sliding type of hiatus hernia is noted. Transverse diameter of the esophageal hiatus measures 4.7 cm. Herniation of the abdominal fat is also noted through the hiatus into the intrathoracic cavity. No significant interval change. The central airways are patent. There are no pleural effusions. No pneumothorax is seen. The heart is normal in size. No pericardial effusion is identified. Aorta, and pulmonary arteries are of normal size and configuration. There are coronary artery and aortic atherosclerotic calcifications. No axillary or mediastinal adenopathy is identified. Imaged portions of the upper abdomen are unremarkable. Rest of the findings are unchanged compared to the previous CT scan. IMPRESSION: 1. Complete resolution of the previously seen right upper lobe cavitary consolidation is noted. Fibrotic scar is noted in this region. 2. Stable centriacinar emphysematous changes are noted involving bilateral upper lobe and superior segments of bilateral lower lobes. 3. Multiple branching centrilobular nodules are noted involving right middle lobe and right lower lobe segments, suggestive of bronchiolitis, likely infective. Small subpleural nodule/consolidation is noted in the medial segment of right middle lobe. These are new findings. Possibility of infective etiology needs consideration. Suggested lab correlation. 4. Sliding type of hiatus hernia as described above. No significant interval change. Rest of the findings are unchanged compared to the previous CT scan. Electronically Signed by: Shon Betancourt MD. (02/27/2024 23:21:08 EST)
[2024-02-27] MEDS ORDERED: Sodium Chloride 0.9% 1000 ML 1,000 ML ONE (23:36)
[2024-02-28] MEDS ORDERED: Sodium Chloride 0.9% 1000 ML 0 ML ONE (00:01)
[2024-02-28] MEDS: Sodium Chloride 0.9% 1000 ML 1,000 ML IV SCH (00:02)
[2024-02-28 00:17] VITALS: BP 130/83; PULSE 91; RESP 24; O2SAT 98
== END 2024-02-28 00:36 | disposition short-term general hospital (02) ==
LOC: ED 20:13
DX: R07.9 Chest pain, unspecified (principal); R77.8 Other specified abnormalities of plasma proteins; R06.00 Dyspnea, unspecified; J02.9 Acute pharyngitis, unspecified; R05.1 Acute cough; E78.5 Hyperlipidemia, unspecified; Z79.01 Long term (current) use of anticoagulants; Z79.899 Other long term (current) drug therapy; Z72.0 Tobacco use
CPT/HCPCS: 0241U; 36415; 71260; 80053; 82150; 82805; 83690; 83735; 83880; 84484; 85025; 87040; 87070; 87651; 93005; 93041; 94002; 94640; 94760; 96365; 96374; 99285; J0456; J0696; J7609; A9270-GY